=== PATIENT | female | born 1950 | race Caucasian/White ===

== ENCOUNTER → 2016-04-25 | Outpatient (CLI) | payer MEDICARE, OTHER ==
--- OUTSIDE RECORDS SUMMARY | 2016-04-25 10:11 | XMS REPORT | Continuity of Care Document ---
Author Author [facility] Organization [facility] Address Unknown Phone Unavailable Care Team Providers Care Core Analysis Operator Name Role Phone Devi Vasquez PCP [phone] Source Comments Some departments are not documenting in the electronic medical record. If you do not see the information that you expected, contact Release of Information in the Health Information Management department at [phone] for further assistance in locating additional records.[facility] Active Allergies and Adverse Reactions No Known Allergies Current Medications Prescription Sig. Disp. Refills Start End Date Status Date furosemide (LASIX) 20 mg Take 1 Tab by mouth Active tablet Daily. celecoxib (CELEBREX) 200 Take 1 Cap by mouth Active mg capsule Daily. predniSONE (DELTASONE) 5 Take 1 Tab by mouth Active mg tablet Daily. methotrexate 2.5 mg Take 8 Tabs by mouth Active tablet Every Friday. estradiol (ESTRACE) 2 mg Take 1 Tab by mouth Active tablet Daily. CALCIUM + VITAMIN D PO Take 1 Tab by mouth Twice Active Daily. cyclobenzaprine Take 10 mg by mouth At Active (FLEXERIL) 10 mg tablet Bedtime Daily. MIRAPEX 0.25 mg Tab Take 0.25 mg by mouth At Active Bedtime Daily. VITAMIN B-6 100 mg Tab Take 100 mg by mouth Active Daily. docusate (COLACE) 100 mg Take 1 Cap by mouth Twice 60 0 02/25/19 Active capsule Daily. 09 oxycodone/acetaminophen Take 1-2 Tabs by mouth 60 0 20 Active (PERCOCET) 5/325 mg Every 4-6 Hours as needed 09 tablet for Pain. trimethoprim/sulfamethoxa Take 1 Tab by mouth Twice 28 0 02/25/19 Active zole (BACTRIM DS) 160/800 Daily. 09 mg tablet Active Problems Problem Noted Date Wrist swelling 02/26/2008 Social History Tobacco Use Types Packs/Day Years Used Date Former Smoker Cigarettes 5.0 Comments: quit in --social smoker Alcohol Use Drinks/Week oz/Week Comments No Last Filed Vital Signs Vital Sign Reading Time Taken Blood Pressure 120/73 02/26/2008 7:59 AM HOME CHILD CARE PROVIDER Pulse 72 02/26/2008 7:59 AM HOME CHILD CARE PROVIDER Temperature 37.1 C (98.8 F) 02/26/2008 7:59 AM HOME CHILD CARE PROVIDER Respiratory Rate - - Height 1.575 m (5' 2") 02/24/2008 4:00 PM HOME CHILD CARE PROVIDER Weight 65.772 kg (145 lb) 02/24/2008 4:00 PM HOME CHILD CARE PROVIDER Body Mass Index 26.51 02/24/2008 4:00 PM HOME CHILD CARE PROVIDER Oxygen Saturation 98% 02/25/2008 11:00 PM HOME CHILD CARE PROVIDER Plan of Care Health Maintenance Due Date Last Done Comments Physical (Comprehensive) 04/13/1955 Exam Pertussis Vaccine 04/13/1959 Tetanus Vaccine 1965 Breast Cancer Screening 1988 Colorectal Cancer 1998 Screening Shingles Vaccine 2008 Osteoporosis Screening 2013 Prevnar/Pneumovax (#1) 2013 Influenza Vaccine 10/12/2015 Results from Last 3 Months Not on file
[2016-04-26 07:46] LABS: HOMOCYSTEINE 11.2 umol/L (<=10.3)
[2016-04-26 13:37] LABS: FACTOR 5 (LEIDEN) MUTATION Heterozygous (Negative)
[2016-04-26 13:52] LABS: FACTOR 5 LEIDEN INTERP See Footnote
[2016-04-26 14:38] LABS: LUPUS ANTICOAGULANT PTT 38.6 Seconds (24.4-41.7)
[2016-04-29 08:56] LABS: DRVVT SCREEN 1:1 MIX 1.16 ratio (0.00-1.20)
[2016-04-29 08:58] LABS: FACTOR II 20210 MUTATIONC Negative
[2016-04-30 07:59] LABS: INHIBITOR SCREEN PT Equivocal; PROTIME 1:1 MIX ROOM TEMP 15.3 Seconds (10.5-15.7); PT REF RML 26.3 H SEC (10.5-15.7)
[2016-04-30 08:00] LABS: INR REF RML 2.4 H (0.7-1.3); PTT LUPUS 35.7 SEC (20.6-39.2)
[2016-04-30 08:01] LABS: PROTIME 1:1 MIX INCUBATED 17.2 Seconds (10.5-15.7)
[2016-05-01 07:44] LABS: FACTOR 8 (VIII) ASSAY C 225 % (60-150)
[2016-05-03 16:21] LABS: HEXAGONAL PHOSPHOLIPID Negative (Negative)
[2016-05-03 16:22] LABS: CLIN PATHOLOGY REPORT FOOTNOTE
== END ==
LOC: LAB 10:06
PROVIDERS: ATTEND Internal Medicine Cardiovascular Disease
DX: R07.9 Chest pain, unspecified (principal); G89.4 Chronic pain syndrome; I51.9 Heart disease, unspecified; I34.0 Nonrheumatic mitral (valve) insufficiency; I73.9 Peripheral vascular disease, unspecified
CPT/HCPCS: 36415; 81240; 81241; 83090; 85240; 85307; 85597; 85610; 85613; 85705; 85730; 86146; 86147

== ENCOUNTER 2017-12-16 09:00 | Inpatient (IN) | payer MEDICARE, OTHER ==
[~2017-12-16] VITALS: Ht 157.5 cm; Wt 81.2 kg
[2017-12-16] MEDS ORDERED: GABA-488 PO (10:04)
[2017-12-16] MEDS ORDERED: TIZA2TAB3 PO (10:04)
[2017-12-16] MEDS ORDERED: PRED5TAB PO (10:04)
[2017-12-16] MEDS ORDERED: OXYB5TAB9 PO (10:04)
[2017-12-16] MEDS ORDERED: MINO100C2 PO (10:04)
[2017-12-16] MEDS ORDERED: HYDR-3812 PO (10:04)
[2017-12-16] MEDS ORDERED: MAGN400O7 PO (10:08)
[2017-12-16] MEDS ORDERED: WARF7.5T49 PO (10:08)
[2017-12-16] MEDS ORDERED: POTA-51 PO (10:08)
[2017-12-16] MEDS ORDERED: BUME0.5T3 PO (10:08)
[2017-12-16] MEDS ORDERED: CALC-870 PO (10:08)
[2017-12-16] MEDS ORDERED: PRAM0.257 PO (10:08)
[2017-12-16] MEDS ORDERED: MAGN500C15 PO (10:11)
[2017-12-16] MEDS ORDERED: FLU QUADRIvalent (5+ YOA) 2018-2019 (AFLURIA) 0.5 ML IM ONE (10:30)
--- NOTE | 2017-12-16 10:42 | Consultation-Hospitalist ---
DARON MARIN DO 12/16/17 1042: HPI History of Present Illness: HPI/Chief Complaint CC: Recovery in IRF after complicated left knee replacement HPI: This is a 67yoWF clinic patient of Dr Vasquez who presented to the IRF following DC from [place] after undergoing a hardware removal and placement of an antibiotic spacer in 2017 to recent replacement of the hardware. Patient has had a DVT and is maintained on anticoagulation. She wears O2 through her CPAP at night long-term. I reviewed her home meds and previous records. Source: patient Exam Limitations: no limitations Date Seen 12/16/17 Attending Physician Osmani Lanza MD, Lisa A MD Referring Physician Date of Admission Dec 16, 2017 at 09:00 Home Medications & Allergies Home Medications Reviewed patient Home Medication Reconciliation performed by pharmacy medication reconciliations thin film technician and/or nursing. Patients Allergies have been reviewed. 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) Recreational Drug Use: No Smoking Status: Former Smoker Recent Foreign Travel: No Contact w/other who traveled: No Recent Infectious Disease Expo: No Immunizations Up To Date Date of Pneumonia Vaccine: Dec 16, 2016 Past Medical History Surgeries: Joint Replacement, Orthopedic Respiratory: Sleep Apnea Currently Using CPAP: Yes Currently Using BIPAP: No Cardiac: Deep Vein Thrombosis Reproductive: No Gastrointestinal: 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) Musculoskeletal: Arthritis, Rheumatoid Arthritis, Chronic Back Pain History of Blood Disorders: Yes Family History Hypertension Review of Systems Constitutional: see HPI, weakness EENTM: no symptoms reported Respiratory: no symptoms reported Cardiovascular: no symptoms reported Gastrointestinal: no symptoms reported Genitourinary: no symptoms reported Musculoskeletal: joint pain Skin: no symptoms reported Psychiatric/Neurological: No Symptoms Reported All Other Systems Reviewed Negative Unless Noted: Yes Physical Exam Physical Exam Vital Signs Vital Signs - First Documented 12/16/17 12/16/17 11:13 12:33 Temp 97.9 Pulse 76 Resp 18 B/P (MAP) 166/87 (113) Pulse Ox 95 O2 Delivery Room Air Capillary Refill : Height, Weight, BMI Height: '" Weight: lbs. oz. kg; BMI Method: General Appearance: No Apparent Distress, WD/WN, Chronically ill Eyes: Bilateral Eye Normal Inspection, Bilateral Eye PERRL HEENT: PERRL/EOMI, Normal ENT Inspection, Pharynx Normal Neck: Full Range of Motion, Normal Inspection, Non Tender, Supple, Carotid Bruit Respiratory: Chest Non Tender, Lungs Clear, Normal Breath Sounds, No Accessory Muscle Use, No Respiratory Distress Cardiovascular: Regular Rate, Rhythm, No Edema, No Gallop, No JVD, No Murmur, Normal Peripheral Pulses Gastrointestinal: Normal Bowel Sounds, No Organomegaly, No Pulsatile Mass, Non Tender, Soft Back: Normal Inspection, No CVA Tenderness, No Vertebral Tenderness Extremity: Normal Capillary Refill, Normal Inspection, Normal Range of Motion, Non Tender, No Calf Tenderness, No Pedal Edema Neurologic/Psychiatric: Alert, Oriented x3, No Motor/Sensory Deficits, Normal Mood/Affect Skin: Normal Color, Warm/Dry Lymphatic: No Adenopathy Results Results/Procedures Labs Patient resulted labs reviewed. 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 Qualifiers: Encounter type: sequela Qualified Codes: T84.7XXS - Infection and inflammatory reaction due to other internal orthopedic prosthetic devices, implants and grafts, sequela (3) DVT (deep venous thrombosis) Status: Chronic Qualifiers: DVT location: lower extremity Affected thrombotic vein of extremity: unspecified vein of extremity Chronicity: chronic Laterality: left Qualified Codes: I82.502 - Chronic embolism and thrombosis of unspecified deep veins of left lower extremity (4) Anticoagulant long-term use Status: Chronic (5) Edema Status: Chronic (6) Nocturnal hypoxia Status: Chronic (7) VINCE on CPAP Status: Chronic Clinical Quality Measures DVT/VTE Risk/Contraindication: Risk Factor Score Per Nursin RFS Level Per Nursing on Admit: 4+=Very High PIPE [employer] MED STUDENT 12/16/17 1134: HPI History of Present Illness: HPI/Chief Complaint CC: Knee replacement HPI: This is a 67 year old female who is transferring to [facility] for inpatient rehabilitation. She states that she originally had a left knee replacement in 2016. The knee became infected and was removed in August of this year. An antibiotic spacer was inserted until October of this year when it was removed and replaced with the artificial knee. She then began a rehabilitation program at a rehabilitation facility in [place]. She states that she had to transfer to this facility due to insurance refusal to pay for the previous rehabilitation. Source: patient Exam Limitations: no limitations PCP PCP: Devi Vasquez MD Home Medications & Allergies Home Medications Active Scripts Medications Dose Route/Sig Max Daily Dose Days Date Category Magnesium (Magnesium Oxide) 500 Mg Capsule 500 Mg PO DAILY 12/16/17 Reported Milk of Magnesia (Magnesium Hydroxide) 400 Mg/5 Ml Oral.susp 30 Ml PO DAILY PRN 12/16/17 Reported Tums X-Str (Calcium Carbonate) 300 Mg Tab.chew 300 Mg PO TID PRN 12/16/17 Reported Potassium Chloride 20 Meq Tablet.er 20 Meq PO DAILY 12/16/17 Reported Bumetanide 0.5 Mg Tablet 0.5 Mg PO 0700 12/16/17 Reported Warfarin Sodium 7.5 Mg Tablet 7.5 Mg PO 1800 12/16/17 Reported Pramipexole Dihydrochloride (Pramipexole Di-HCl) 0.25 Mg Tablet 0.25 Mg PO BID 12/16/17 Reported Tizanidine HCl 2 Mg Tablet 2 Mg PO Q8H PRN 12/16/17 Reported Minocycline HCl 100 Mg Capsule 100 Mg PO BID 12/16/17 Reported Gabapentin 300 Mg Capsule 300 Mg PO QID 12/16/17 Reported Oxybutynin Chloride 5 Mg Tablet 5 Mg PO TID 12/16/17 Reported Prednisone 5 Mg Tablet 5 Mg PO DAILY 12/16/17 Reported Hydrocodone-Acetamin 5-325 mg (Hydrocodone/Acetaminophen) 1 Each Tablet 1 Tab PO Q4H PRN 12/16/17 Reported Allergies Allergies Coded Allergies baclofen (Verified Allergy, Severe, 12/16/17) vancomycin (Verified Allergy, Severe, 12/16/17) Penicillins (Verified Allergy, Unknown, 12/16/17) cefuroxime (Verified Allergy, Unknown, 12/16/17) cyclobenzaprine (Verified Allergy, Unknown, 12/16/17) levofloxacin (Verified Allergy, Unknown, 12/16/17) metronidazole (Verified Allergy, Unknown, 12/16/17) Past Uyrbduv-Kflzee-Ezlbxm Hx Patient Social History Marrital Status: Number of Children: 2 Employed/Student: retired Alcohol Use: Denies Use Recreational Drug Use: No Past Medical History Surgeries: Joint Replacement, Orthopedic Musculoskeletal: Rheumatoid Arthritis History of Blood Disorders: Yes Review of Systems Constitutional: no symptoms reported EENTM: no symptoms reported Respiratory: no symptoms reported Cardiovascular: no symptoms reported Gastrointestinal: no symptoms reported Genitourinary: no symptoms reported Musculoskeletal: joint pain Skin: no symptoms reported Psychiatric/Neurological: No Symptoms Reported Physical Exam Physical Exam General Appearance: No Apparent Distress, WD/WN Respiratory: Chest Non Tender, Lungs Clear, Normal Breath Sounds, No Accessory Muscle Use, No Respiratory Distress Cardiovascular: Regular Rate, Rhythm, No Edema, No Gallop, No JVD, No Murmur Neurologic/Psychiatric: Alert, Oriented x3, No Motor/Sensory Deficits, Normal Mood/Affect Skin: Normal Color, Warm/Dry Assessment/Plan Assessment and Plan Assess & Plan/Chief Complaint Assessment: 1) Debility due to recent knee replacement Plan: 1) Inpatient rehabilitation DARON MARIN DO Dec 16, 2017 10:42 PIPE [employer] MED STUDENT Dec 16, 2017 11:34
--- NOTE | 2017-12-16 10:50 | PM&R Post Admission Assessment ---
Post Admission Physician Asses Date seen by provider: Dec 16, 2017 Time seen by provider: 10:45 The preadmission screen agrees with the post admission assessment that the patient is a good candidate for inpatient rehabilitation. The patient will have a comprehensive program of inpatient rehabilitation with a goal of maximizing level of functional independence prior to discharge home with spouse. The patient will have PT/OT ninety minutes per day, each discipline, five days a week for 10 to 14 days for gait, strengthening, conditioning, balance, ADLs, any patient/family/caregiver training as necessary. Speech therapy to do cognitive assessment and treat as indicated. Rehabilitation nursing to assist with bowel, bladder, skin, wound care, medication administration, pain management. Hha to assist with discharge planning, community reentry. SCD's and coumadin for DVT prophylaxis. She appears to be well motivated to participate in three hours of therapy a day. She should be able to tolerate three hours of therapy a day from a medical and surgical standpoint. She should benefit from the three hours of therapy a day. She has a reasonable discharge plan, reasonable discharge rehabilitation goals and a supportive family. She has various comorbidities that need to be closely monitored with medications and treatments adjusted on a daily basis as needed. These include: Chronic anticoagulation DJD of the spine Factor leiden Valvular HT D OA of the knees [facility] code 08.61 Etiologic DX OA left knee Barriers to discharge for this patient who had been independent prior to this are for her to be modified independent to supervision for ADLs and mobility skills prior to discharge home with spouse, so as to lessen the burden of the caregivers. Risks for this patient include: 1. Fall 2. Fracture 3. DVT 4. Pulmonary embolism 5. Wound infection 6. Skin breakdown 7. Contractures 8. Poorly controlled pain 9. Urinary retention 10. UTI 11. Respiratory infection 12. Aspiration 13.Supra or subtherapeutic INR Estimated Length of Stay: 10 to 14 days Prognosis: Rehab prognosis appears good for goal of discharge home with spouse modified independent to supervision for ADLs and mobility skills. Date Identified: Dec 16, 2017 Time Identified: 10:45 Action Plan to Resolve CSMI: Home meds reconciled Discussed with admitting RN General: Alert, Oriented X3, Cooperative, No Acute Distress HEENT: Atraumatic, PERRLA, EOMI, Mucous Memb Moist/[place] Neck: Supple, No JVD Lungs: Clear to Auscultation Heart: Regular Rate Abdomen: Normal Bowel Sounds, Soft, No Tenderness Extremities: Other (Left calf tight but non tender Incision healing well Limited AROM left shoulder due to OA) Neuro: Sensation Intact, Other (Generalized weakaness more so left shoulder and left knee) Psych/Mental Status: Mental Status NL, Other (cognition intact) MYLA BIRCH MD Dec 16, 2017 10:50
[2017-12-16] MEDS ORDERED: CALCIUM CARBONATE 500 MG (TUMS) TAB.CHEW PO PRN (11:00)
--- NOTE | 2017-12-16 11:00 | Physical Therapy Evaluation ---
PT Evaluation-General Medical Diagnosis Admission Date Dec 16, 2017 at 09:00 Medical Diagnosis: left TKA revision Onset Date: Nov 03, 2017 Therapy Diagnosis Therapy Diagnosis: impaired mobility, strength, endurance, balance, ROM Weight Bear Status Right Lower Extremity: Right Full Weight Bearing Left Lower Extremity: Left Weight Bearing/Tolerated Referral Physician: Pool Reason for Referral: Evaluation/Treatment Medical History Additional Medical History PAST MEDICAL HISTORY: Factor V Leiden, DVT, pulmonary embolism, rheumatoid arthritis, osteoarthritis, spinal arthritis. She has had lumbar spine surgery and cervical spine surgery in [place]. She has OA of the left shoulder on a nondominant side affecting her flexibility and abduction and flexion of the left shoulder as well. 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 PAST SURGICAL HISTORY: Lumbar spine, cervical spine, IVC filter placement, revision of left total knee replacement, hysterectomy, foot surgery, left TSA and a CTR Reviewed History: Yes Social History Home: Single Level Current Living Status: Spouse Entry Into Home: Level Entry Prior/Core FIM Prior Level of Function Functional [place] Measure 0=Not Assessed/NA 4=Minimal Assistance 1=Total Assistance 5=Supervision or Setup 2=Maximal Assistance 6=Modified [place] 3=Moderate Assistance 7=Complete IndependenceIRFPAI Quality Coding Scale 6 Independent with activity with or without an assistive device 5 Patient requires set up or clean up by helper. Patient completes activity by themselves 4 Supervision or touching assist (CGA). [place] provide cues , steadying assist 3 The helper provides less than half the effort to complete the activity 2 The helper provides more than half the effort to complete the activity 1 Dependent. The helper does all the effort to complete an activity 7 Patient refused to complete or attempt activity 9 The patient did not perform the activity before the current illness or injury 88 Not attempted due to Medical conditions or safety concerns PT Evaluation-Current Subjective Patient in recliner pre tx, agrees to PT, has no pain at rest. Pt/Family Goals "to be independent at home Objective Patient Orientation: Person, Place, Situation ROM/Strength ROM Lower Extremities left knee extension +15 degrees, flexion 85 degrees Strenght Lower Extremities RLE 4/5 gross, LLE (hip flexion 3-/5, knee flexion 2/5, knee extension 2/5, dorsiflexion 2/5) Neuromuscular (Tone, Coordination, Reflexes) NT Sensory Vision: Wears Glasses Hearing: Functional Sensation Right Lower Extremit: Impaired Sensation Left Lower Extremity: Impaired Sensation Lower Extremities Patient has bilateral neuropathy and vascular insufficiency Transfers Functional [place] Measure 0=Not Assessed/NA 4=Minimal Assistance 1=Total Assistance 5=Supervision or Setup 2=Maximal Assistance 6=Modified [place] 3=Moderate Assistance 7=Complete IndependenceIRFPAI Quality Coding Scale 6 Independent with activity with or without an assistive device 5 Patient requires set up or clean up by helper. Patient completes activity by themselves 4 Supervision or touching assist (CGA). [place] provide cues , steadying assist 3 The helper provides less than half the effort to complete the activity 2 The helper provides more than half the effort to complete the activity 1 Dependent. The helper does all the effort to complete an activity 7 Patient refused to complete or attempt activity 9 The patient did not perform the activity before the current illness or injury 88 Not attempted due to Medical conditions or safety concerns Transfers (B, C, W/C) (FIM): 3 Scootin Rollin Roll Left to Right (QC): 4 Supine to/from Sit: 4 Sit to/from Stand: 4 bed t/f WC(FIM only if WC use): 4 Sit to Lying (QC): 2 Lying to Sitting/Side of Bed(Q: 3 Sit to Stand (QC): 3 Chair/Tst-ao-Vsuim Xfer(QC): 3 Car Transfer (QC): 3 Patient performs bed mobility with SBA, supine to sit with min assist, sit to supine with mod assist, sit to stand min assist, transfers min assist, car transfer min assist. Cues for safety and positioning. Patient's left knee jorge with weight bearing but she keeps from falling by bracing with her arms. Gait Does the Patient Walk?: Yes Mode of Locomotion: Both Anticipated Mode of Locomotion: Walk Gait (FIM): 1 Walk 10 feet (QC): 4 Distance: 40'x3 Gait Level of Assist: 4 Gait Persons Needed: 1 Gait Assistive Device: FWW Comments/Gait Description Patient can ambulate 40' with min assist using a rolling walker. Patient is unsteady and has left knee buckling with weight bearing but is able to keep from falling by bracing with her arms. Patient has poor endurance. Gait is antalgic, has flexed left knee during ambulation, poor heel strike. Wheelchair Training Does the Pt Use a Wheelchair?: Yes Wheelchair (FIM): 2 Distance: 100'x2 Wheelchair Level of Assist: 5 Wheel 50 ft with 2 turns (QC): 4 Type of Wheelchair: Manual Patient can propel a manual wheelchair 100' with SBA. She propels very slowly and has trouble due to weakness and poor endurance. Stairs If not tested on admit;explain Patient is not safe to perform stairs at this time due to weakness and left knee buckling. Balance Sitting Static: Normal Sitting Dynamic: Normal Standing Static: Poor Standing Dynamic: Poor Treatment supine TKA exercises left side x15 (AP, QS, HS, SAQ, SLR) Assessment/Needs Patient has impaired mobility, strength, endurance, balance, and ROM post left TKA revision. Patient has a profoundly weak left quadricep. Patient is a high fall risk. Rehab Potential: Guarded PT Short Term Goals Short Term Goals Time Frame: Dec 23, 2017 Transfers (B,C,W/C) (FIM): 4 Gait (FIM): 2 Gait Distance Comment: 60' Gait Level of Assist: 4 Gait Assistive Device: FWW PT Shelter Goals Shelter Goals PT Manager Meeting Goals Time Frame: Jan 06, 2018 Transfers (B,C,W/C) (FIM): 4 Sit to Lying (QC): 3 Lying-Sitting on Side/Bed(QC): 4 Sit to Stand (QC): 4 Rollin Roll Left to Right (QC): 4 Chair/Evq-kd-Qibwi Xfer(QC): 4 Car Transfer (QC): 4 Gait (FIM): 2 Distance: 100' Walk 10 feet (QC): 4 Walk 10ft-Uneven Surface(QC): 4 Walk 50ft with 2 Turns (QC): 4 Gait Level of Assist: 5 Gait Assistive Device: FWW PT Plan Problem List Problem List: Activity Tolerance, Functional Strength, Safety, Balance, Gait, Transfer, Bed Mobility, ROM Treatment/Plan Treatment Plan: Continue Plan of Care Treatment Plan: Bed Mobility, Concurrent Therapy, Education, Functional Activity Ricardo, Functional Strength, Group Therapy, Gait, Safety, Therapeutic Exercise, Transfers Treatment Duration: Jan 06, 2018 Frequency: At least 5 of 7 days/Wk (IRF) Estimated Hrs Per Day: 1.5 hours per day Patient and/or Family Agrees t: Yes Safety Risks/Education Patient Education: Gait Training, Transfer Techniques, Correct Positioning, W/ C Management, Safety Issues Teaching Recipient: Patient Teaching Methods: Demonstration, Discussion Response to Teaching: Reinforcement Needed Discharge Recommendations Plan Patient will perform bed mobility and transfer training, balance and endurance training, functional strengthening, stair training, gait training, and education , to improve functional mobility and independence at home. Therapy D/C Recommendations: Home w/ Family Support Time/GCodes Time In: 1000 Time Out: 1100 Total Billed Treatment Time: 60 Total Billed Treatment 1 visit EVM 30' EX 15' GT 15' YOBANY HU PT Dec 16, 2017 11:00
[2017-12-16] MEDS ORDERED: PATIENT MAY USE OWN MED,SINGLE MED PO SCH (11:30)
[2017-12-16] MEDS: OXYBUTYNIN (DITROPAN) 5 MG TAB PO SCH ×2 (12:20→20:34)
[2017-12-16] MEDS: GABAPENTIN 300 MG (NEURONTIN) CAP PO SCH ×3 (12:20→20:35)
[2017-12-16] MEDS: HYDROcodone/APAP 5 MG/325 MG (LORTAB) TAB PO PRN ×2 (12:21→16:28)
[2017-12-16 12:33] VITALS: BP 166/87
--- NOTE | 2017-12-16 12:56 | Occupational Therapy Eval ---
OT Evaluation-General/PLF Medical Diagnosis Admission Date Dec 16, 2017 at 09:00 Medical Diagnosis: Left TKA revision Onset Date: Nov 03, 2017 Therapy Diagnosis Therapy Diagnosis: decreased self care skills Precautions Precautions/Isolations: Fall Prevention, Standard Precautions Referral Physician: Pool Medical History Pertinent Medical History: Rheumatoid Arthritis Additional Medical History Neck surgery, lumbar surgery, right CHRISTOPHER, left TKA. Current History Pt states she had her original left TKA in 2016. In August 2017 hardware was removed and antibiotic spacer was placed. Revision was completed on October. Pt states she has been in SNF and was discharged 12/12/17 as she had run out of skilled days. Was admitted to ARU for continued therapy Reviewed History: Yes Social History Home: Single Level Current Living Status: Spouse Entry Into Home: Level Entry Steps Inside Home: 3 ADL-Prior Level of Function Functional [place] Measure 0=Not Assessed/NA 4=Minimal Assistance 1=Total Assistance 5=Supervision or Setup 2=Maximal Assistance 6=Modified Bay 3=Moderate Assistance 7=Complete [place] ADL PLOF Comments Pt has been in SNF following placement of antibiotic spacer and subsequent left knee revision. Was receiving some assistance with ADLs and transfers. Pt states she does not ever wear socks, so does not need to practice this skill. Has been using FWW and w/c for mobility. 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 Pt reports 5/10 pain in left knee. Mental Status/Objective Patient Orientation: Person, Place, Time, Situation Current Glasses/Contacts: Yes Hearing Aids: No Dentures/Partials: No Hand Dominance: Right Upper Extremity ROM Impaired left shoulder ROM secondary to arthritis Right UE grossly WFL Upper Extremity Sensation Intact per pt report ADL-Treatment ADL-Current Pt sit to stand from w/c with max assist, requires three attempts to achieve standing. Gait to restroom with FWW. Pt's left knee jorge at times. Has increased weight bearing through bilateral UE. Transfer to toilet with min assist and cues for safety. Pt able to pull pants down, but requires assist with toileting hygiene and to pull pants up. Pt states she uses toileting aid and spouse will bring it here. Sit to stand from toilet with moderate assistance using grab bars for safety. Stood at sink to wash hands with minimal assistance for balance. Returned to chair with FWW. Pt has slow pace and requires increased time for mobility and ADLs. Pt sitting in chair with needs met after session. Functional Bay Measure 0=Not Assessed/NA 4=Minimal Assistance 1=Total Assistance 5=Supervision or Setup 2=Maximal Assistance 6=Modified [place] 3=Moderate Assistance 7=Complete IndependenceIRFPAI Quality Coding Scale 6 Independent with activity with or without an assistive device 5 Patient requires set up or clean up by helper. Patient completes activity by themselves 4 Supervision or touching assist (CGA). [place] provide cues , steadying assist 3 The helper provides less than half the effort to complete the activity 2 The helper provides more than half the effort to complete the activity 1 Dependent. The helper does all the effort to complete an activity 7 Patient refused to complete or attempt activity 9 The patient did not perform the activity before the current illness or injury 88 Not attempted due to Medical conditions or safety concerns Toileting (FIM): 2 Toileting Hygiene (QC): 2 Toilet/Commode Transfer (FIM): 3 Toilet Transfer (QC): 3 Education OT Patient Education: Rehab process Teaching Recipient: Patient Teaching Methods: Discussion Response to Teaching: Verbalize Understanding OT Short Term Goals Short Term Goals Time Frame: Dec 23, 2017 Grooming(FIM): 5 Lower Body Dressing(FIM): 4 Toilet/Commode Transfer(FIM): 4 Additional Short Term Goals: 1-Demonstrate ADL Tasks, 2-Verbalize Understanding , 3-ImproveStrength/Ricardo 1=Demonstrate adherence to instructed precautions during ADL tasks. 2=Patient will verbalize/demonstrate understanding of assistive devices/ modifications for ADL. 3=Patient will improve strength/tolerance for activity to enable patient to perform ADL's. OT Recovery Engineer Goals [facility] Goals Time Frame: Jan 06, 2018 Eating (FIM): 6 Eating (QC): 6 Groomin Oral Hygiene (QC): 6 Bathing(FIM): 4 Shower/Bathe Self (QC): 4 Upper Body Dressing(FIM): 5 Upper Body Dressing (QC): 5 Lower Body Dressing(FIM): 4 (CGA) Lower Body Dressing (QC): 4 On/Off Footwear (QC): 5 Toileting(FIM): 5 Toileting Hygiene (QC): 5 Toilet/Commode Transfer(FIM): 5 Toilet/Commode Transfer (QC): 5 Shower Transfer(FIM): 4 Additional Goals: 1-Demonstrate ADL Tasks, 2-Verbalize Understanding, 3- ImproveStrength/Ricardo 1=Demonstrate adherence to instructed precautions during ADL tasks. 2=Patient will verbalize/demonstrate understanding of assistive devices/ modifications for ADL. 3=Patient will improve strength/tolerance for activity to enable patient to perform ADL's. Goals established to promote increased independence and allow safe discharge plan. OT Education/Plan Problem List/Assessment Assessment: Decreased Activ Tolerance, Decreased UE Strength, Dependent Transfers, Impaired Funct Balance, Impaired I ADL's, Impaired Self-Care Skills Pt to benefit from skilled OT intervention for ADL training, transfers, strengthening, and home safety education to increase independence and allow safe discharge home. Discharge Recommendations Plan/Recommendations: Continue POC Treatment Plan/Plan of Care Treatment,Training & Education: Yes Patient would benefit from OT for education, treatment and training to promote independence in ADL's, mobility, safety and/or upper extremity function for ADL' s. Plan of Care: ADL Retraining, Functional Mobility, Group Exercise/Act as Ind, UE Funct Exercise/Act Treatment Duration: Jan 06, 2018 Frequency: At least 5 of 7 days/Wk (IRF) Estimated Hrs Per Day: 1.5 hours per day Agreement: Yes Rehab Potential: Fair Time/GCodes Start Time: 11:00 Stop Time: 12:00 Total Time Billed (hr/min): 60 Billed Treatment Time 1 visit, EVM(30minutes), ADLx2(30minutes) TEGAN HOOD OT Dec 16, 2017 12:56
--- NOTE | 2017-12-16 13:15 | HISTORY AND PHYSICAL ---
DATE OF SERVICE: 12/16/2017 CHIEF COMPLAINT: Difficulty with walking. HISTORY OF PRESENT ILLNESS: The patient is a 67-year-old female who had been modified independent until recently with a walker, who presented to [facility] for left total knee replacement. However, she was found to have pseudomonas in her knee. Therefore, on 08/25/2017, she underwent knee explantation with antibiotic spacer placement. On 08/28/2017, she was admitted to [facility] for 8 weeks postop care. She was nonweightbearing at that time. On 11/03/2017, she presented to [place] for explant of left knee antibiotic spacer and revision of left total knee replacement. On 11/11/2017, she was readmitted to [facility] for continued PT, OT. On 12/11/2017, she had progressed well, but still required assistance and she had been living with her prior to this in [place], [place]. Her PCP is Dr. Vasquez. She was referred to inpatient rehabilitation unit for ongoing care and therapy to get her to the next level, so that she can be more independent, less of a burden to her spouse. Currently, she requires assistance for ADLs and mobility skills. She has factor V Leiden and is chronically anticoagulated with Coumadin. She has a history of DVT and pulmonary embolism. She has seen Dr. Aldana, cardiology, in the past regarding this and diastolic dysfunction and pulmonary hypertension and an intraatrial aneurysm.Currently she is Min assist for transfers and gait.She is Independent for feeding and mod Independent for grooming at the w/c level.SBA for Upper body dressing and mod assist for lower body dressing and toileting PAST MEDICAL HISTORY: Factor V Leiden, DVT, pulmonary embolism, rheumatoid arthritis, osteoarthritis, spinal arthritis. She has had lumbar spine surgery and cervical spine surgery in [place]. She has OA of the left shoulder on a nondominant side affecting her flexibility and abduction and flexion of the left shoulder as well. 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 PAST SURGICAL HISTORY: Lumbar spine, cervical spine, IVC filter placement, revision of left total knee replacement, hysterectomy, foot surgery, left TSA and a CTR. ALLERGIES: Multiple intolerances and allergies. PENICILLIN, BACLOFEN, FLEXERIL, LEVAQUIN, FLAGYL AND VANCOMYCIN. FAMILY HISTORY: Noncontributory. SOCIAL HISTORY: Lives in a one-story home in [place], [place] with her spouse. REVIEW OF SYSTEMS: A 10-point review of systems significant for arthritic pain involving the knee. She has also had prior right hip surgery and pain in her cervical and lumbar spine and left shoulder. She has some swelling in the left calf as well. MEDICATIONS: Gabapentin 300 mg p.o. q.i.d., milk of magnesia 30 mL p.o. daily p.r.n. constipation, prednisone 5 mg p.o. daily, Coumadin 7.5 mg p.o. daily evening, bumetanide 0.5 mg p.o. daily, calcium carbonate 500 mg p.o. t.i.d. p.r.n., hydrocodone APAP 5/325 one tablet p.o. q.4 hours p.r.n. pain, magnesium oxide 400 mg p.o. daily, Minocin 100 mg p.o. b.i.d., Ditropan 5 mg p.o. t.i.d., KCl 20 mEq p.o. daily, pramipexole 0.25 mg p.o. b.i.d. for restless leg syndrome, Zanaflex 2 mg p.o. q.8 hours p.r.n. spasm.Minocycline PHYSICAL EXAMINATION: GENERAL: Significant for a pleasant female appearing her stated age, alert and oriented, in no acute distress. She is sitting on mat in gym. VITAL SIGNS: Within normal limits. She was afebrile. HEENT: Vision, speech, hearing grossly intact. No oral lesion is noted. NECK: Supple without mass. HEART: Regular rhythm. CHEST: Clear. ABDOMEN: Soft, nontender, bowel sounds present. EXTREMITIES: She has some discoloration and hardening of the left calf, but is nontender. Her incision line over the left knee has healed well. No drainage noted. MUSCULOSKELETAL: She has functional active range of motion on the right upper limb and lower limb. Left upper limb limited in active and passive range of motion, shoulder flexion and abduction. She has functional wage conciliator strength bilaterally. She has limited extension, flexion of her left knee.Left knee extension +15 degrees Flex 85 degrees NEUROLOGIC: Sensation is decreased to touch in the feet. Cognition is grossly intact. Strength, she has generalized weakness in the upper limbs more so in the left shoulder.She has functional wage conciliator strength. Strength RLE 4/5 Left hip flex 3-/5 Knee flex 2/5 knee ext 2/5 dorsiflexion 2/5 IMPRESSION: 1. Ambulatory dysfunction secondary to revision left total knee replacement for osteoarthritis s/p explantation antibiotic beads for Infection now on Minocycline. 2. Osteoarthritis of the spine status post lumbar spine surgery, cervical spine surgery. 3. OA of the left shoulder. 4. Restless leg syndrome. 5. Overactive bladder. 6. Diastolic congestive heart failure, on meds. 7. Anemia. 8. Factor V Leiden syndrome, chronically anticoagulated. 9. Valvular heart disease. 10. Nocturnal resp insuff on 02 at PLAN: The patient is admitted for a comprehensive program of inpatient rehabilitation with goal of maximizing level of functional independence prior to discharge home with spouse. The patient will have PT, OT 90 minutes per day each discipline, 5 days a week for 10 to 14 days with the above goals in mind. Please see post-admission physician evaluation, which is a separate document for details of plan of care. Speech therapy to do cognitive assessment and treat as indicated. Rehabilitation nursing to assist with bowel, bladder, skin, wound care, medication administration, pain management and social worker health services to assist with discharge planning, community reentry. Check a PT INR in a.m. Continue home meds. Consult Dr. Santana for medical management in lieu of Dr. Vasquez.Continue with home 02 regimen ESTIMATED LENGTH OF STAY: 10 to 14 days. PROGNOSIS: Rehab prognosis appears good for goal of discharging home with spouse, modified independent to supervision for ADLs and mobility skills. DIET: Regular. CODE STATUS: Full code. Job ID: [id number] DocumentID: [id number] Dictated Date: 12/16/2017 11:08:24 Launderette Attendant Date: 12/16/2017 12:12:03 Dictated By: MYLA BIRCH MD [facility]
--- NOTE | 2017-12-16 14:40 | ST Cognitive Linguistic Eval ---
Speech Evaluation-General Medical Diagnosis left TKA revision Onset Date: Nov 03, 2017 Therapy Diagnosis Therapy Diagnosis: Cognition Precautions Precautions/Isolations: Fall Prevention, Standard Precautions Referral Referring Physician: Dr. Lanza Reason for Referral: Evaluation/Treatment Medical History Pertinent Medical History: Rheumatoid Arthritis Reviewed History: Yes Social History Current Living Status: Spouse Speech PLF-Current Status Prior Level of Function pt was independent Subjective Pt in chair. Pleasant and cooperative. Pain Numeric Pain Scale: 0-No Pain Language Eval: Auditory Comprehends Simple Yes/No Ques: Functional Follows 1-Step Commands: Functional Follows Complex Directions: Functional Follows General Conversations: Functional Language Eval: Verbal Language Completes Spontaneous Greeting: Functional Produces Auto, Serial Info: Functional Word Finding: Functional Requests Basic Needs: Functional States Basic Personal Info: Functional Expresses Complex Ideas: Functional Language Evaluation: Reading NT Cognitive Patient Orientation Pt oriented x 3. Objective Cognitive Domain Attention: WNL Memory: WNL Problem Solving: Functional Objective Results [facility] Cognitive/Communication Assessment was administered to determine cognitive-linguistic functioning. Results are as follows: Memory - 3 word recall was 3/3 correct for immediate, delayed and remote delay. Sequencing/organization - pt was 4/4 correct Problem Solving - Simple was 4/4 correct; Abstract/complex was 2/2 correct and Comparisons was 4/5 correct. Speech/Language - WNL Oral Motor/Speech Production WNL Impression Functional cognitive-linguistic skills. No skilled ST indicated at this time. Communication/Social Cognition Comprehension: 7 Expression: 7 Social Interaction: 7 Problem Solvin Memory: 7 Speech Patient Assess Expression of Ideas/Wants: Expression (4) Understanding Verbal Content: Understands (4) Brief Interview-Mental Status: Yes Repetition of Three Words: Three (3) Temporal Orientation: Year: Correct (3) Temporal Orientation: Month: Accurate within 5 days(2) Temporal Orientation: Day: Correct (1) Recall : Wear to say "Sock": Yes, no cue required (2) Recall : Color: Yes, no cue required (2) Recall : Bed: Yes, no cue required (2) Speech Short Term Goals Short Term Goals Short Term Goals no goals established as skilled ST not indicated at this time. Speech Nursing Home Goals Certified Financial Planner Goals no goals established as skilled ST not indicated at this time. Speech-Plan Patient/Family Goals Patient/Family Goals: to return home Treatment Plan Speech Therapy Treatment Plan: Discontinue ST Pt does not require skilled ST. Frequency: Modified Program (IRF) (0) Estimated Hrs Per Day: Other (0) Rehab Potential: Good Pt/Family Agrees to Plan: Yes Safety Risks/Education Teaching Recipient: Patient Teaching Methods: Discussion Response to Teaching: Verbalize Understanding Time Speech Therapy Time In: 09:25 Speech Therapy Time Out: 09:40 Total Billed Time: 15 Billed Treatment Time 1, SPSNDCOMP NILAM Cifuentes Dec 16, 2017 14:40
--- NOTE | 2017-12-16 14:40 | Physical Therapy Daily Note ---
PT Daily Note-Current Subjective Patient in wheelchair pre tx, agrees to PT, has no complaints of pain. Appearance Patient in recliner post tx with nurse call, phone, tray, all needs met. Mental Status Patient Orientation: Normal For Age Transfers Functional [place] Measure 0=Not Assessed/NA 4=Minimal Assistance 1=Total Assistance 5=Supervision or Setup 2=Maximal Assistance 6=Modified [place] 3=Moderate Assistance 7=Complete IndependenceIRFPAI Quality Coding Scale 6 Independent with activity with or without an assistive device 5 Patient requires set up or clean up by helper. Patient completes activity by themselves 4 Supervision or touching assist (CGA). [place] provide cues , steadying assist 3 The helper provides less than half the effort to complete the activity 2 The helper provides more than half the effort to complete the activity 1 Dependent. The helper does all the effort to complete an activity 7 Patient refused to complete or attempt activity 9 The patient did not perform the activity before the current illness or injury 88 Not attempted due to Medical conditions or safety concerns Transfers (B, C, W/C) (FIM): 4 Sit to/from Stand: 4 Bed to/from Chair: 4 Min assist for sit to stand, has more difficulty standing from the wheelchair. Patient has a lot of difficulty stepping backward when turning to sit. Weight Bearing Right Lower Extremity: Right Full Weight Bearing Left Lower Extremity: Left Weight Bearing/Tolerated Gait Training Gait (FIM): 1 Distance: 40'x2 Gait Level of Assist: 4 Gait Persons Needed: 1 Gait Assistive Device: FWW Slow, antalgic ambulation, flexed left knee, poor heel strike, left knee buckling. Wheelchair Training Does the Pt Use a Wheelchair?: Yes Wheelchair (FIM): 2 Distance: 100'x2 Wheelchair Level of Assist: 5 Type of Wheelchair: Manual very slow Treatments transfers, ambulation, wheelchair mobility Assessment Current Status: Fair Progress improving ambulation PT Short Term Goals Short Term Goals Time Frame: Dec 23, 2017 Transfers (B,C,W/C) (FIM): 4 Gait (FIM): 2 Gait Distance Comment: 60' Gait Level of Assist: 4 Gait Assistive Device: FWW Wheelchair Distance: 100'x2 PT [facility] Goals Die Maker Electronic Goals PT Die Maker Electronic Goals Time Frame: Jan 06, 2018 Transfers (B,C,W/C) (FIM): 4 Sit to Lying (QC): 3 Lying-Sitting on Side/Bed(QC): 4 Sit to Stand (QC): 4 Rollin Roll Left to Right (QC): 4 Chair/[id number] Xfer(QC): 4 Car Transfer (QC): 4 Gait (FIM): 2 Distance: 100' Walk 10 feet (QC): 4 Walk 10ft-Uneven Surface(QC): 4 Walk 50ft with 2 Turns (QC): 4 Gait Level of Assist: 5 Gait Assistive Device: FWW PT Plan Problem List Problem List: Activity Tolerance, Functional Strength, Safety, Balance, Gait, Transfer, Bed Mobility, ROM Treatment/Plan Treatment Plan: Continue Plan of Care Treatment Plan: Bed Mobility, Concurrent Therapy, Education, Functional Activity Ricardo, Functional Strength, Group Therapy, Gait, Safety, Therapeutic Exercise, Transfers Treatment Duration: Jan 06, 2018 Frequency: At least 5 of 7 days/Wk (IRF) Estimated Hrs Per Day: 1.5 hours per day Patient and/or Family Agrees t: Yes Safety Risks/Education Patient Education: Gait Training, Transfer Techniques, Correct Positioning, W/ C Management, Safety Issues Teaching Recipient: Patient Teaching Methods: Demonstration, Discussion Response to Teaching: Reinforcement Needed Time/GCodes Time In: 1405 Time Out: 1435 Total Billed Treatment Time: 30 Total Billed Treatment 1 visit [facility] 15' GT 15' YOBANY HU PT Dec 16, 2017 14:40
--- NOTE | 2017-12-16 15:09 | Occupational Ther Daily Note ---
OT Current Status-Daily Note Subjective Pt sitting in chair, agrees to treatment. Mental Status/Objective Functional [place] Measure 0=Not Assessed/NA 4=Minimal Assistance 1=Total Assistance 5=Supervision or Setup 2=Maximal Assistance 6=Modified [place] 3=Moderate Assistance 7=Complete [place] ADL-Treatment Sit to stand from recliner with minimal assistance. Gait to restroom with FWW, slow pace. Pt stood at sink to complete grooming tasks. Pt brushed teeth with CGA for balance. Pt has decreased activity tolerance and requires seated rest break. Pt transferred to [facility] over toilet with minimal assistance. Pt able to pull pants down and was able to complete toileting hygiene using toileting aid. Pt needed to change Depends. Doffed with SBA. Pt donned Depends and pants using mobile phlebotomist to start over feet. Pt sit to stand with minimal assistance, but required assist to complete pant hike. Pt able to doff/don shoes with SBA using mobile phlebotomist. Increased time required for ADLs. Transfer to w/c with minimal assistance. Pt sitting in w/c with PT present after session. Functional [place] Measure 0=Not Assessed/NA 4=Minimal Assistance 1=Total Assistance 5=Supervision or Setup 2=Maximal Assistance 6=Modified [place] 3=Moderate Assistance 7=Complete IndependenceIRFPAI Quality Coding Scale 6 Independent with activity with or without an assistive device 5 Patient requires set up or clean up by helper. Patient completes activity by themselves 4 Supervision or touching assist (CGA). [place] provide cues , steadying assist 3 The helper provides less than half the effort to complete the activity 2 The helper provides more than half the effort to complete the activity 1 Dependent. The helper does all the effort to complete an activity 7 Patient refused to complete or attempt activity 9 The patient did not perform the activity before the current illness or injury 88 Not attempted due to Medical conditions or safety concerns Grooming (FIM): 4 Oral Hygiene (QC): 4 Lower Body Dressing (FIM): 3 Lower Body Dressing (QC): 3 On/Off Footwear (QC): 5 Toileting (FIM): 3 Toileting Hygiene (QC): 3 Toilet/Commode Transfer (FIM): 4 Toilet Transfer (QC): 3 OT Short Term Goals Short Term Goals Time Frame: Dec 23, 2017 Grooming(FIM): 5 Lower Body Dressing(FIM): 4 Transfers (B,C,W/C) (FIM): 4 Toilet/Commode Transfer(FIM): 4 Additional Short Term Goals: 1-Demonstrate ADL Tasks, 2-Verbalize Understanding , 3-ImproveStrength/Ricardo 1=Demonstrate adherence to instructed precautions during ADL tasks. 2=Patient will verbalize/demonstrate understanding of assistive devices/ modifications for ADL. 3=Patient will improve strength/tolerance for activity to enable patient to perform ADL's. OT Care Home Goals Care Home Goals Time Frame: Jan 06, 2018 Eating (FIM): 6 Eating (QC): 6 Groomin Oral Hygiene (QC): 6 Bathing(FIM): 4 Shower/Bathe Self (QC): 4 Upper Body Dressing(FIM): 5 Upper Body Dressing (QC): 5 Lower Body Dressing(FIM): 4 (CGA) Lower Body Dressing (QC): 4 On/Off Footwear (QC): 5 Toileting(FIM): 5 Toileting Hygiene (QC): 5 Toilet/Commode Transfer(FIM): 5 Toilet/Commode Transfer (QC): 5 Shower Transfer(FIM): 4 Additional Goals: 1-Demonstrate ADL Tasks, 2-Verbalize Understanding, 3- ImproveStrength/Ricardo 1=Demonstrate adherence to instructed precautions during ADL tasks. 2=Patient will verbalize/demonstrate understanding of assistive devices/ modifications for ADL. 3=Patient will improve strength/tolerance for activity to enable patient to perform ADL's. OT Education/Plan Discharge Recommendations Plan/Recommendations: Continue POC Treatment Plan/Plan of Care Patient would benefit from OT for education, treatment and training to promote independence in ADL's, mobility, safety and/or upper extremity function for ADL' s. Plan of Care: ADL Retraining, Functional Mobility, Group Exercise/Act as Ind, UE Funct Exercise/Act Treatment Duration: Jan 06, 2018 Frequency: At least 5 of 7 days/Wk (IRF) Estimated Hrs Per Day: 1.5 hours per day Agreement: Yes Rehab Potential: Fair Time/GCodes Start Time: 13:30 Stop Time: 14:05 Total Time Billed (hr/min): 35 Billed Treatment Time 1 visit, ADLx2(35minutes) TEGAN HOOD OT Dec 16, 2017 15:09
[2017-12-16 15:30] VITALS: BP 152/93
[2017-12-16] MEDS: warFARin 7.5 MG (COUMADIN) TAB PO SCH (17:16)
[2017-12-16] MEDS: MINOCYCLINE HCL 100 MG PO SCH (20:34)
[2017-12-16] MEDS: PRAMIPEXOLE 0.125 MG (MIRAPEX) TABLET PO SCH (20:35)
[2017-12-17] MEDS: HYDROcodone/APAP 5 MG/325 MG (LORTAB) TAB PO PRN ×3 (01:49→20:33)
[2017-12-17 05:11] VITALS: BP 127/81
[2017-12-17 05:26] LABS: INR 2.3 (0.8-1.4); PROTHROMBIN TIME PATIENT 25.2 SEC (12.2-14.7)
[2017-12-17] MEDS: KCL 20 MEQ TAB (K-DUR) PO SCH (06:32)
[2017-12-17] MEDS: predniSONE 5 MG TAB PO SCH (08:35)
[2017-12-17] MEDS: OXYBUTYNIN (DITROPAN) 5 MG TAB PO SCH ×3 (08:35→20:33)
[2017-12-17] MEDS: MAGNESIUM OXIDE (MAG-OX)400 MG TAB PO SCH (08:35)
[2017-12-17] MEDS: PRAMIPEXOLE 0.125 MG (MIRAPEX) TABLET PO SCH ×2 (08:35→20:32)
[2017-12-17] MEDS: GABAPENTIN 300 MG (NEURONTIN) CAP PO SCH ×4 (08:35→20:33)
[2017-12-17] MEDS: MINOCYCLINE HCL 100 MG PO SCH ×2 (08:36→20:35)
--- NOTE | 2017-12-17 09:01 | PM & R (SOAP) Progress Note ---
Subjective This was a face to face visit with the patient. Date Seen by Provider: Dec 17, 2017 Time Seen by Provider: 07:45 Subjective/Events-last exam Patient was seen in her room this AM Patient Min assist for transfers INR noted.Adjusting well to unit Date Identified: Dec 17, 2017 Time Identified: 07:30 Medication Intervention: INR noted Review of Systems Musculoskeletal: leg pain Objective Physician Exam Last Set of Vital Signs Vital Signs Date Time Temp Pulse Resp B/P (MAP) Pulse Ox O2 Delivery O2 Flow Rate FiO2 12/17/17 05:11 98.4 74 18 127/81 (96) 100 Room Air Capillary Refill : Less Than 3 Seconds I&O Intake and Output 12/17/17 00:00 Intake Total 700 ml Balance 700 ml Intake Oral 700 ml # Voids 3 General: Alert, Oriented X3, Cooperative, No Acute Distress HEENT: Atraumatic, PERRLA, EOMI, Mucous Memb Moist/Graingers Neck: Supple, No JVD Lungs: Clear to Auscultation Heart: Regular Rate Abdomen: Normal Bowel Sounds, Soft, No Tenderness Extremities: Other (Left calf tight but non tender Incision healing well Limited AROM left shoulder due to OA) Neuro: Sensation Intact, Other (Generalized weakaness more so left shoulder and left knee) Psych/Mental Status: Mental Status NL, Other (cognition intact) Results Lab Data Laboratory Tests 12/17/17 04:50: Prothrombin Time 25.2H, INR Comment 2.3H Assessment/Plan Assessment and Plan Revision Left TKR for OA s/p explantation original hardware and placement of Antibiotic block for infection on minocycline OA of the spine s/p C and L spine surgeries OA of the left shoulder RLS OAB Diastolic CHF compensated Anemia Factor V leiden syndrome chronically anticoagulated HX of DVT/PE Valvular HT D Nocturnal resp insuff on 02 at HS Plan Continue PT/OT Adjust Coumadin dose as needed Team Conference later today -See report for full functional update and POC and ELOS Co-Morbidities that are continuing to impact the rehab process: (include details ) MYLA BIRCH MD Dec 17, 2017 09:01
--- NOTE | 2017-12-17 09:44 | Occupational Ther Daily Note ---
OT Current Status-Daily Note Subjective No pain reported. Appearance Pt. is in bed. Alert and oriented. Agrees to shower. Mental Status/Objective Patient Orientation: Person, Place, Time, Situation Functional [place] Measure 0=Not Assessed/NA 4=Minimal Assistance 1=Total Assistance 5=Supervision or Setup 2=Maximal Assistance 6=Modified [place] 3=Moderate Assistance 7=Complete [place] ADL-Treatment Functional [place] Measure 0=Not Assessed/NA 4=Minimal Assistance 1=Total Assistance 5=Supervision or Setup 2=Maximal Assistance 6=Modified [place] 3=Moderate Assistance 7=Complete IndependenceIRFPAI Quality Coding Scale 6 Independent with activity with or without an assistive device 5 Patient requires set up or clean up by helper. Patient completes activity by themselves 4 Supervision or touching assist (CGA). [place] provide cues , steadying assist 3 The helper provides less than half the effort to complete the activity 2 The helper provides more than half the effort to complete the activity 1 Dependent. The helper does all the effort to complete an activity 7 Patient refused to complete or attempt activity 9 The patient did not perform the activity before the current illness or injury 88 Not attempted due to Medical conditions or safety concerns Grooming (FIM): 5 (Set up at sink to brush hair and teeth. Pt. sits at chair and utilizes adaptive brush. OT has to push chair up to sink for pt.) Oral Hygiene (QC): 5 Bathing (FIM): 4 (Pt. is able to wash all parts with LH sponge. However, requires assist to stand and assist to wash rear sanjuana area.) Shower/Bathe Self (QC): 4 Upper Body (FIM): 4 (Pt. is able to don bra and shirt, but requires assist to adjust bra straps.) Upper Body Dressing (QC): 4 Lower Body Dressing (FIM): 3 (Pt. is able to thread brief and pants over feet with AE and pull to hips. Requires assistance to stand and to bleach boiler puller hips. Pt. is able to don slide on shoes.) Lower Body Dressing (QC): 3 On/Off Footwear (QC): 5 Toileting (FIM): 4 (Min assist to pull pants over hips.) Toileting Hygiene (QC): 4 Transfers (B, C, W/C) (FIM): 4 (Pt. able to transfer supine-sit with SBA using bedrail. Able to stand with min assist with walker and bed elevated.) Toilet/Commode Transfer (FIM): 3 Toilet Transfer (QC): 3 Shower Transfer(FIM): 3 Education OT Patient Education: Correct positioning, Modified ADL techniques, Progress toward Goal/Update tx plan, Purpose of tx/functional activities, Reviewed precautions, Rehab process, Transfer techniques, Use of adapted equipment Teaching Recipient: Patient Teaching Methods: Demonstration, Discussion Response to Teaching: Verbalize Understanding, Return Demonstration OT Short Term Goals Short Term Goals Time Frame: Dec 23, 2017 Grooming(FIM): 5 Lower Body Dressing(FIM): 4 Transfers (B,C,W/C) (FIM): 4 Toilet/Commode Transfer(FIM): 4 Additional Short Term Goals: 1-Demonstrate ADL Tasks, 2-Verbalize Understanding , 3-ImproveStrength/Ricardo 1=Demonstrate adherence to instructed precautions during ADL tasks. 2=Patient will verbalize/demonstrate understanding of assistive devices/ modifications for ADL. 3=Patient will improve strength/tolerance for activity to enable patient to perform ADL's. OT Head Of Precision Targeting Goals Head Of Precision Targeting Goals Time Frame: Jan 06, 2018 Eating (FIM): 6 Eating (QC): 6 Groomin Oral Hygiene (QC): 6 Bathing(FIM): 4 Shower/Bathe Self (QC): 4 Upper Body Dressing(FIM): 5 Upper Body Dressing (QC): 5 Lower Body Dressing(FIM): 4 (CGA) Lower Body Dressing (QC): 4 On/Off Footwear (QC): 5 Toileting(FIM): 5 Toileting Hygiene (QC): 5 Toilet/Commode Transfer(FIM): 5 Toilet/Commode Transfer (QC): 5 Shower Transfer(FIM): 4 Additional Goals: 1-Demonstrate ADL Tasks, 2-Verbalize Understanding, 3- ImproveStrength/Ricardo 1=Demonstrate adherence to instructed precautions during ADL tasks. 2=Patient will verbalize/demonstrate understanding of assistive devices/ modifications for ADL. 3=Patient will improve strength/tolerance for activity to enable patient to perform ADL's. OT Education/Plan Problem List/Assessment Assessment: Decreased Activ Tolerance, Decreased UE Strength, Dependent Transfers, Impaired Coordination, Impaired I ADL's, Impaired Self-Care Skills, Restricted Funct UE ROM Discharge Recommendations Plan/Recommendations: Continue POC Therapy D/C Recommendations: Home w/ Family Support, Occupational Therapy Home Care, Scheduled Assistance Treatment Plan/Plan of Care Treatment,Training & Education: Yes Patient would benefit from OT for education, treatment and training to promote independence in ADL's, mobility, safety and/or upper extremity function for ADL' s. Plan of Care: ADL Retraining, Functional Mobility, Group Exercise/Act as Ind, UE Funct Exercise/Act Treatment Duration: Jan 06, 2018 Frequency: At least 5 of 7 days/Wk (IRF) Estimated Hrs Per Day: 1.5 hours per day Agreement: Yes Rehab Potential: Fair Time/GCodes Start Time: 08:15 Stop Time: 09:15 Total Time Billed (hr/min): 60 Billed Treatment Time 1, ADL x 4 SHAKIRA DOE OT Dec 17, 2017 09:44
--- NOTE | 2017-12-17 11:06 | Physical Therapy Daily Note ---
PT Daily Note-Current Subjective Pt. states her pain in left knee is 5/10. Pt. explains that she has been off all the meds for her arthritis that had been so helpful for many years. Pts goals are to be able to walk and go up down steps at home and sleep in her bed not the recline chair Pain Numeric Pain Scale: 5-Moderate Pain Location: Left Location Body Site: Knee Pain Description: Ache Mental Status Patient Orientation: Normal For Age Transfers Functional [place] Measure 0=Not Assessed/NA 4=Minimal Assistance 1=Total Assistance 5=Supervision or Setup 2=Maximal Assistance 6=Modified [place] 3=Moderate Assistance 7=Complete IndependenceIRFPAI Quality Coding Scale 6 Independent with activity with or without an assistive device 5 Patient requires set up or clean up by helper. Patient completes activity by themselves 4 Supervision or touching assist (CGA). [place] provide cues , steadying assist 3 The helper provides less than half the effort to complete the activity 2 The helper provides more than half the effort to complete the activity 1 Dependent. The helper does all the effort to complete an activity 7 Patient refused to complete or attempt activity 9 The patient did not perform the activity before the current illness or injury 88 Not attempted due to Medical conditions or safety concerns Transfers (B, C, W/C) (FIM): 3 Scootin Rollin Supine to/from Sit: 3 Sit to/from Stand: 4 Bed to/from Chair: 4 Weight Bearing Right Lower Extremity: Right Full Weight Bearing Left Lower Extremity: Left Weight Bearing/Tolerated Gait Training Does the Patient Walk?: Yes Gait (FIM): 2 Distance (FIM): 3=027-08 ft (100,40) Gait Level of Assist: 4 Gait Persons Needed: 1 Gait Assistive Device: FWW pt. with slow uneven step length, narrow MICKEY, followed by w/c secondary to fatigue, heavy weight bearing on to FWW Wheelchair Training Does the Pt Use a Wheelchair?: Yes Wheelchair (FIM): 6 Wheelchair Distance: 3=150 ft Wheelchair Level of Assist: 6 Type of Wheelchair: Manual has a manual and electric w/c at home Exercises Supine Ex: Ankle pumps, Quad Set, Rolling, Heel Slides, Short Arc Quads, Scooting, Straight leg raise (assist) Supine Reps: 12 NuStep Minutes: 8 NuStep Workload: 1 Treatments nustep emphasis on knee flexion and extension Assessment Current Status: Fair Progress AROM 18degrees to 65degrees (lacking 18 degrees ext) PT Short Term Goals Short Term Goals Time Frame: Dec 23, 2017 Transfers (B,C,W/C) (FIM): 4 Gait (FIM): 2 Gait Distance Comment: 60' Gait Level of Assist: 4 Gait Assistive Device: FWW Wheelchair Distance: 100'x2 PT Television Reporter Goals Senior Care Goals PT Television Reporter Goals Time Frame: Jan 06, 2018 Transfers (B,C,W/C) (FIM): 4 Sit to Lying (QC): 3 Lying-Sitting on Side/Bed(QC): 4 Sit to Stand (QC): 4 Rollin Roll Left to Right (QC): 4 Chair/[id number]-[id number] Xfer(QC): 4 Car Transfer (QC): 4 Gait (FIM): 2 Distance: 100' Walk 10 feet (QC): 4 Walk 10ft-Uneven Surface(QC): 4 Walk 50ft with 2 Turns (QC): 4 Gait Level of Assist: 5 Gait Assistive Device: FWW PT Plan Treatment/Plan Treatment Plan: Continue Plan of Care Treatment Plan: Bed Mobility, Concurrent Therapy, Education, Functional Activity Ricardo, Functional Strength, Group Therapy, Gait, Safety, Therapeutic Exercise, Transfers Treatment Duration: Jan 06, 2018 Frequency: At least 5 of 7 days/Wk (IRF) Estimated Hrs Per Day: 1.5 hours per day Patient and/or Family Agrees t: Yes Safety Risks/Education Patient Education: Gait Training, Transfer Techniques, Correct Positioning, W/ C Management, Disease Process, Safety Issues Teaching Recipient: Patient Teaching Methods: Demonstration, Discussion Response to Teaching: Verbalize Understanding, Return Demonstration, Reinforcement Needed Time/GCodes Time In: 1000 Time Out: 1100 Total Billed Treatment Time: 60 Total Billed Treatment 1,EX35m,GT25m G Codes Necessary: GORDON Ernst COMMUNITY DEVELOPMENT COORDINATOR Dec 17, 2017 11:06
--- NOTE | 2017-12-17 12:24 | Occupational Ther Daily Note ---
OT Current Status-Daily Note Subjective No pain reported. Appearance Pt. up in chair. Agrees to work with OT. Mental Status/Objective Patient Orientation: Person, Place, Time, Situation Functional [place] Measure 0=Not Assessed/NA 4=Minimal Assistance 1=Total Assistance 5=Supervision or Setup 2=Maximal Assistance 6=Modified [place] 3=Moderate Assistance 7=Complete [place] ADL-Treatment Functional [place] Measure 0=Not Assessed/NA 4=Minimal Assistance 1=Total Assistance 5=Supervision or Setup 2=Maximal Assistance 6=Modified [place] 3=Moderate Assistance 7=Complete IndependenceIRFPAI Quality Coding Scale 6 Independent with activity with or without an assistive device 5 Patient requires set up or clean up by helper. Patient completes activity by themselves 4 Supervision or touching assist (CGA). [place] provide cues , steadying assist 3 The helper provides less than half the effort to complete the activity 2 The helper provides more than half the effort to complete the activity 1 Dependent. The helper does all the effort to complete an activity 7 Patient refused to complete or attempt activity 9 The patient did not perform the activity before the current illness or injury 88 Not attempted due to Medical conditions or safety concerns Transfers (B, C, W/C) (FIM): 3 (Pt. requires mod assist sit-stand out of wheelchair to transfer back to recliner. Once she is standing, she is able to slowly ambulate to recliner.) Pt. attempts to self propel wheelchair to therapy gym. Due to arthritis, pt. is able to only propel approximately 10 feet and then requires rest break. OT pushes rest of way. Pt. attempts nut/bolt activity to work on fine motor strengthening/ROM in shoulders. Due to limited shoulder ROM and finger coordination, this task was difficult and so a new task was started. Pt. given pool noodle and worked on pelvic work seated with trunk flexion/extension. Educated pt. to keep trunk upright and utilize back muscles to come back into extension. Pt. able to do this but reports that it wears her out. Completed bilateral shoulder flexion exercises within her range. Also worked on seated knee extension exercises x 10 reps, plantar flexion exercises x 10 reps, and glute squeezes x 15 reps. Pt. attempted again to self propel back to room but fatigued easily and so OT pushed her the rest of the way. All needs met in room after transfer to recliner. Education OT Patient Education: Correct positioning, Exercise program, Modified ADL techniques, Progress toward Goal/Update tx plan, Purpose of tx/functional activities, Reviewed precautions, Rehab process, Transfer techniques Teaching Recipient: Patient Teaching Methods: Demonstration, Discussion Response to Teaching: Verbalize Understanding, Return Demonstration OT Short Term Goals Short Term Goals Time Frame: Dec 23, 2017 Grooming(FIM): 5 Lower Body Dressing(FIM): 4 Transfers (B,C,W/C) (FIM): 4 Toilet/Commode Transfer(FIM): 4 Additional Short Term Goals: 1-Demonstrate ADL Tasks, 2-Verbalize Understanding , 3-ImproveStrength/Ricardo 1=Demonstrate adherence to instructed precautions during ADL tasks. 2=Patient will verbalize/demonstrate understanding of assistive devices/ modifications for ADL. 3=Patient will improve strength/tolerance for activity to enable patient to perform ADL's. OT Research Support Specialist Goals Shelter Goals Time Frame: Jan 06, 2018 Eating (FIM): 6 Eating (QC): 6 Groomin Oral Hygiene (QC): 6 Bathing(FIM): 4 Shower/Bathe Self (QC): 4 Upper Body Dressing(FIM): 5 Upper Body Dressing (QC): 5 Lower Body Dressing(FIM): 4 (CGA) Lower Body Dressing (QC): 4 On/Off Footwear (QC): 5 Toileting(FIM): 5 Toileting Hygiene (QC): 5 Toilet/Commode Transfer(FIM): 5 Toilet/Commode Transfer (QC): 5 Shower Transfer(FIM): 4 Additional Goals: 1-Demonstrate ADL Tasks, 2-Verbalize Understanding, 3- ImproveStrength/Ricardo 1=Demonstrate adherence to instructed precautions during ADL tasks. 2=Patient will verbalize/demonstrate understanding of assistive devices/ modifications for ADL. 3=Patient will improve strength/tolerance for activity to enable patient to perform ADL's. OT Education/Plan Problem List/Assessment Assessment: Decreased Activ Tolerance, Decreased UE Strength, Dependent Transfers, Impaired Bed Mobility, Impaired Coordination, Impaired I ADL's, Impaired Self-Care Skills, Restricted Funct UE ROM Discharge Recommendations Plan/Recommendations: Continue POC Therapy D/C Recommendations: Home w/ Family Support, Occupational Therapy Home Care Treatment Plan/Plan of Care Treatment,Training & Education: Yes Patient would benefit from OT for education, treatment and training to promote independence in ADL's, mobility, safety and/or upper extremity function for ADL' s. Plan of Care: ADL Retraining, Functional Mobility, Group Exercise/Act as Ind, UE Funct Exercise/Act Treatment Duration: Jan 06, 2018 Frequency: At least 5 of 7 days/Wk (IRF) Estimated Hrs Per Day: 1.5 hours per day Agreement: Yes Rehab Potential: Fair Time/GCodes Start Time: 11:30 Stop Time: 12:00 Total Time Billed (hr/min): 30 Billed Treatment Time 1, FA x 2 SHAKIRA DOE OT Dec 17, 2017 12:24
[2017-12-17] MEDS: BUMETANIDE 1 MG (BUMEX) TAB PO SCH (13:37)
--- NOTE | 2017-12-17 14:17 | Individualized Plan of Care ---
Individualized Plan of Care Rehab Nursing IPOC Order Admission Date Dec 16, 2017 at 09:00 Current Orders Orders Pt Evaluate/Treat Request (12/16/17 09:22) Request Ot Evaluate & Treat (12/16/17 09:22) Request For Cognitive Services (12/16/17 09:22) Admission Arrival Bed Request (12/16/17 09:24) Consult Physician (12/16/17 10:08) Ambulate 08,12,20 (12/16/17 10:15) Sequential Compression Device 08,20 (12/16/17 10:15) Dvt/Vte Risk - Notifiy Physici 08 (12/16/17 10:15) Influenza Quad (5+Yoa) 2017- (Afluria (12/16/17 10:30) Gabapentin Capsule/Tablet (Neurontin Cap (12/16/17 13:00) Magnesium Hydroxide Oral Susp (Mom Oral (12/16/17 10:45) Prednisone Tablet (Deltasone Tablet) (12/17/17 09:00) Warfarin Tablet (Coumadin Tablet) (12/16/17 18:00) Bumetanide Tablet (Bumex Tablet) (12/17/17 07:00) Calcium Carbonate Chew Tablet (Antacid C (12/16/17 11:00) Hydrocodone/Apap 5/325 Tablet (Lortab 5 (12/16/17 11:00) Magnesium Oxide Tablet (Mag Ox Tablet) (12/17/17 08:00) (Nf) Minocycline Hcl (12/16/17 21:00) Oxybutynin Tablet (Ditropan Tablet) (12/16/17 13:00) Potassium Chloride (Tablet) (K Dur Table (12/17/17 07:00) Pramipexole Tablet (Mirapex Tablet) (12/16/17 21:00) Tizanidine Tablet (Zanaflex Tablet) (12/16/17 10:45) Admission Order(Inpt,Obs,Sdc) (12/16/17 10:52) Vital Signs: Routine (Order) 08,16,00 (12/16/17 10:52) Corporate Operations Compliance Manager-Inpt Rehab Con (12/16/17 10:52) Rehab Nursing Orders-Ipoc (12/16/17 10:52) Turn And Reposition Q2HR (12/16/17 10:52) Intake & Output 06,14,22 (12/16/17 10:52) Weight Bearing Status (12/16/17 10:52) Precautions (Aru) (12/16/17 10:52) Weekly Weight (Lbs) WEEK (12/16/17 10:52) Code/Resuscitation (12/16/17 10:52) Initiate Admission Nursing Pro .admission (12/16/17 10:52) General/Regular (12/16/17 Lunch) Patient May Use Own Med,Single (Patient (12/16/17 11:30) Oxygen-Administer 07,19 (12/16/17 11:40) Oxygen Delivery Set Up (12/16/17 11:40) Patient Visit (12/16/17 ) Speech Sound Lang Comp (12/16/17 ) Patient Visit (12/16/17 ) Pt Eval Moderate Complexity (12/16/17 ) Gait Training, Ea 15 Min (12/16/17 ) Exercise Therap, Ea 15 Min (12/16/17 ) Wheelchair Mgmt/Propulsn 15min (12/16/17 ) Protime With Inr (12/17/17 06:00) Consult Physician (12/16/17 18:06) Rehab Nursing Orders: Ongoing Assess. of Cognitive Status, Ongoing Assess. of Function Status, Disease Management & Educaiton, DVT Prophylaxis, Fall Prevention, Fluid/Electrolyte/Nutrition Mgmt, Infection Prevention, Medication Management & Education, Management of Risks & Complications, Management of Skin Intergrity, Nutrition Management, Pain Management, Patient/Family Support PT IPOC Problem List: Activity Tolerance, Functional Strength, Safety, Balance, Gait, Transfer, Bed Mobility, ROM Treatment Plan: Continue Plan of Care Bed Mobility, Concurrent Therapy, Education, Functional Activity Ricardo, Functional Strength, Group Therapy, Gait, Safety, Therapeutic Exercise, Transfers Treatment Duration: Jan 06, 2018 Frequency: At least 5 of 7 days/Wk (IRF) Estimated Hrs Per Day: 1.5 hours per day OT IPOC Problems: Decreased Activ Tolerance, Decreased UE Strength, Dependent Transfers , Impaired Bed Mobility, Impaired Coordination, Impaired I ADL's, Impaired Self- Care Skills, Restricted Funct UE ROM OT Treatment, Training and Edu: Yes Plan of Care: ADL Retraining, Functional Mobility, Group Exercise/Act as Ind, UE Funct Exercise/Act Treatment Duration: Jan 06, 2018 Frequency: At least 5 of 7 days/Wk (IRF) Estimated Hrs Per Day: 1.[address] IPOC Speech Therapy Treatment Plan: Discontinue ST Treatment Duration: Dec 17, 2017 Frequency: Modified Program (IRF) (0) Estimated Hrs Per Day: Other (0) Corporate Operations Compliance Manager/Case Mgmt Corporate Operations Compliance Manager/Case Managemen: Discharge Planning, Patient/Family Counseling Dietitian/Blood Bank Laboratory Technician Dietitian/Blood Bank Laboratory Technician to monitor nutritional status and make changes and/or recommendations as needed and work with speech pathology on dietary upgrades as the occur. Physician IPOC Medical Issues being managed closely and that require the 24 hour availability of a physician: Chronic anticoagulation Diastolic CHF compensated Factor V Leiden OAB Hx of DVT /PE [facility] code 08.61 Etiologic DX OA left knee Medical Issues: DVT Prophylaxis, Falls Precautions, Infection Protection, Pain Management, Other (List) (as per above) Brief Synthesis of Preadmission Screen, Post-Admission Evaluation, and Therapy Evaluations: 67 yo female who developed an infection in Left TKR requiring revision surgery and antibiotics referrred to IRU for ongoing care and therapies prior to discharge to home with spouse Had been Independent prior to this but has OA of the left shoulder and has had prior Lumbar and Cervical spine surgery.Has Leiden V factor and is chronically anticoagulated.INR therapeutic today Medical Prognosis: Good Anticipated Length of Stay: 01-06-18 Modified Independent for adls and mobility skills Anticipated d/c Destination: Home with spouse MYLA BIRCH MD Dec 17, 2017 14:17
--- NOTE | 2017-12-17 14:36 | Physical Therapy Daily Note ---
PT Daily Note-Current Subjective Pt. rates pain in left knee at 5/10. Pt. requests standard recliner be put back in her room as she cannot get comfortable in the lift recline chair Pain Numeric Pain Scale: 5-Moderate Pain Location: Left Location Body Site: Knee Pain Description: Ache, Stabbing Mental Status Patient Orientation: Normal For Age Transfers Functional [place] Measure 0=Not Assessed/NA 4=Minimal Assistance 1=Total Assistance 5=Supervision or Setup 2=Maximal Assistance 6=Modified [place] 3=Moderate Assistance 7=Complete IndependenceIRFPAI Quality Coding Scale 6 Independent with activity with or without an assistive device 5 Patient requires set up or clean up by helper. Patient completes activity by themselves 4 Supervision or touching assist (CGA). [employer] provide cues , steadying assist 3 The helper provides less than half the effort to complete the activity 2 The helper provides more than half the effort to complete the activity 1 Dependent. The helper does all the effort to complete an activity 7 Patient refused to complete or attempt activity 9 The patient did not perform the activity before the current illness or injury 88 Not attempted due to Medical conditions or safety concerns sit to stands x 1 SBA, in out bed mod assist LEs Weight Bearing Right Lower Extremity: Right Full Weight Bearing Left Lower Extremity: Left Weight Bearing/Tolerated Gait Training Gait Assistive Device: FWW 75ftx2 , slow, pain increasing Exercises Seated Therapy Exercises: Ankle pumps, Sit to stand, Long arc quads, Hip flexion Seated Reps: 15 Treatments toileted min assist Assessment Current Status: Good Progress slow progress, gives full effort PT Short Term Goals Short Term Goals Time Frame: Dec 23, 2017 Transfers (B,C,W/C) (FIM): 4 Gait (FIM): 2 Gait Distance Comment: 60' Gait Level of Assist: 4 Gait Assistive Device: FWW Wheelchair Distance: 100'x2 PT Topology Teacher Goals Topology Teacher Goals PT Topology Teacher Goals Time Frame: Jan 06, 2018 Transfers (B,C,W/C) (FIM): 4 Sit to Lying (QC): 3 Lying-Sitting on Side/Bed(QC): 4 Sit to Stand (QC): 4 Rollin Roll Left to Right (QC): 4 Chair/Fet-cj-Sttfx Xfer(QC): 4 Car Transfer (QC): 4 Gait (FIM): 2 Distance: 100' Walk 10 feet (QC): 4 Walk 10ft-Uneven Surface(QC): 4 Walk 50ft with 2 Turns (QC): 4 Gait Level of Assist: 5 Gait Assistive Device: FWW PT Plan Treatment/Plan Treatment Plan: Continue Plan of Care Treatment Plan: Bed Mobility, Concurrent Therapy, Education, Functional Activity Ricardo, Functional Strength, Group Therapy, Gait, Safety, Therapeutic Exercise, Transfers Treatment Duration: Jan 06, 2018 Frequency: At least 5 of 7 days/Wk (IRF) Estimated Hrs Per Day: 1.5 hours per day Patient and/or Family Agrees t: Yes Safety Risks/Education Patient Education: Gait Training, Transfer Techniques, Correct Positioning, Disease Process, Safety Issues Teaching Recipient: Patient Teaching Methods: Demonstration, Discussion Response to Teaching: Verbalize Understanding, Reinforcement Needed Time/GCodes Time In: 1400 Time Out: 1430 Total Billed Treatment Time: 30 Total Billed Treatment 1,EX10m,FA20m G Codes Necessary: GORDON Ernst REVIEW ANALYST Dec 17, 2017 14:36
--- NOTE | 2017-12-17 17:16 | Podiatry Progress Note ---
Standard Progress Note Progress Notes/Assess & Plan Date Seen by a Provider: Dec 17, 2017 Time Seen by a Provider: 17:16 Progress/Assessment & Plan Consult dictated. Foot care given. Recommend a topical antibiotic ointment to the hallux toenail borders for the next 5 days. Final Diagnosis Peripheral Neuropathy, Onychomycosis, Onychocryptosis, Hammertoes. SALTY PATEL DPM Dec 17, 2017 17:16
[2017-12-17 17:24] VITALS: BP 150/89
[2017-12-17] MEDS: warFARin 7.5 MG (COUMADIN) TAB PO SCH (17:46)
--- NOTE | 2017-12-17 19:40 | CONSULTATION REPORT ---
DATE OF SERVICE: 12/17/2017 REASON FOR CONSULT: Continuation of foot care. HISTORY OF PRESENT ILLNESS: The patient is well known to our office. 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 The hardware was removed in [place] after which antibiotic beads were placed in 2016. The patient has had a deep venous thrombosis and is on anticoagulants. She also is on oxygen and utilizes a CPAP halfway. She has difficulty reaching for and caring for her feet and is complaining about toenails at this point. PAST MEDICAL HISTORY: Includes Factor V Leiden, deep venous thrombosis, pulmonary embolism, rheumatoid arthritis, osteoarthritis, spinal arthritis. She has had the above-mentioned knee surgery as well as lumbar spine surgery and cervical spine surgery. She has also had an IVC filter placement, hysterectomy, foot surgery. ALLERGIES: SHE IS ALLERGIC TO PENICILLIN, BACLOFEN, CEFUROXIME, CYCLOBENZAPRINE, LEVOFLOXACIN, VANCOMYCIN, METRONIDAZOLE. SOCIAL HISTORY: The patient lives in a one story home in [place] with her spouse. She denies tobacco, alcohol or illicit drug use. PHYSICAL EXAMINATION: On examination, the patient has 2/4 dorsalis pedis pulse bilaterally, 0/4 posterior tibial pulse bilateral. Capillary refill time is less than 3 seconds. She has incurvated borders to the hallux toenail with no erythema, edema or gross signs of bacterial infection at this time. She has thick yellow dystrophic toenail with subungual debris associated with R1, 2, 3, 4, 5 and L1, 3, 4, 5 digits. She has intact protective sensation with 10 gram monofilament wire examination bilaterally. Diminished vibratory sensation to the forefoot bilaterally. Contracted toes are noted, right second, third, fifth and left second, third, fourth and fifth digits. ASSESSMENT: 1. Idiopathic neuropathy. 2. Atherosclerosis. 3. Onychomycosis. 4. Hammer digit syndrome and onychocryptosis. PLAN: Various treatment options were discussed with the patient. Her toenails were debrided manually and mechanically. Betadine applied. We discussed use of an antibiotic on the ingrown toenails for a period of time until she is able to come to the office and have them surgically repaired, if necessary. In the meantime, they were cut straight across and a topical antibiotic applied. She will continue with her extra depth shoes. Job ID: [id number] DocumentID: [id number] Dictated Date: 12/17/2017 17:14:04 Telescope Repairer Date: 12/17/2017 19:40:17 Dictated By: SALTY PATEL DPM
[2017-12-18] MEDS: HYDROcodone/APAP 5 MG/325 MG (LORTAB) TAB PO PRN ×4 (01:37→19:30)
[2017-12-18 04:08] VITALS: BP 125/78
[2017-12-18] MEDS: KCL 20 MEQ TAB (K-DUR) PO SCH (06:30)
[2017-12-18] MEDS: PRAMIPEXOLE 0.125 MG (MIRAPEX) TABLET PO SCH ×2 (07:29→21:12)
[2017-12-18] MEDS: predniSONE 5 MG TAB PO SCH (07:30)
[2017-12-18] MEDS: GABAPENTIN 300 MG (NEURONTIN) CAP PO SCH ×4 (07:30→21:12)
[2017-12-18] MEDS: OXYBUTYNIN (DITROPAN) 5 MG TAB PO SCH ×3 (07:30→21:12)
[2017-12-18] MEDS: MAGNESIUM OXIDE (MAG-OX)400 MG TAB PO SCH (07:30)
[2017-12-18] MEDS: MINOCYCLINE HCL 100 MG PO SCH ×2 (07:31→21:12)
--- NOTE | 2017-12-18 08:13 | PM & R (SOAP) Progress Note ---
Subjective This was a face to face visit with the patient. Date Seen by Provider: Dec 18, 2017 Time Seen by Provider: 07:45 Subjective/Events-last exam Patient was seen in her room this AM Patient Mod assist for transfers Discussed case with DR Mchugh last evening.Appreciate his note. INR therapeutic Review of Systems Musculoskeletal: leg pain Neurological: Weakness Objective Physician Exam Last Set of Vital Signs Vital Signs Date Time Temp Pulse Resp B/P (MAP) Pulse Ox O2 Delivery O2 Flow Rate FiO2 12/18/17 07:33 Room Air 12/18/17 04:08 98.2 76 20 125/78 (94) 94 Capillary Refill : Less Than 3 Seconds I&O Intake and Output 12/18/17 00:00 Intake Total 710 ml Balance 710 ml Intake Oral 710 ml # Voids 9 General: Alert, Oriented X3, Cooperative, No Acute Distress HEENT: Atraumatic, PERRLA, EOMI, Mucous Memb Moist/[place] Neck: Supple, No JVD Lungs: Clear to Auscultation Heart: Regular Rate Abdomen: Normal Bowel Sounds, Soft, No Tenderness Extremities: Other (Left calf tight but non tender Incision healing well Limited AROM left shoulder due to OA) Neuro: Sensation Intact, Other (Generalized weakaness more so left shoulder and left knee) Psych/Mental Status: Mental Status NL, Other (cognition intact) Results Lab Data Laboratory Tests 12/17/17 04:50: Prothrombin Time 25.2H, INR Comment 2.3H Assessment/Plan Assessment and Plan Revision left TKR for OA s/p explantation of hardware for infection and now with revision after antibiotic beads. Onychomycosis Hammer toes OA of the spine s/p C and Lumbar spine surgery OA of the left shoulder RLS OAB Diastolic CHF compensated Anemia Factor V leiden factor Chronically anticoagulated HX of DVT /PE Valvular HT D Nocturnal resp insuff on 02 at HS Plan Continue PT/OT Goal return to home with spouse at [facility] Independent to supervision for adls and mobility skills Co-Morbidities that are continuing to impact the rehab process: (include details ) MYLA BIRCH MD Dec 18, 2017 08:13
[2017-12-18 09:06] LABS: INR 2.2 (0.8-1.4); PROTHROMBIN TIME PATIENT 24.7 SEC (12.2-14.7)
--- NOTE | 2017-12-18 10:57 | Occupational Ther Daily Note ---
OT Current Status-Daily Note Subjective Pt stated that she slept much better the night before and that she was worn out last night. Appearance Pt alert and willing to work with OT. Mental Status/Objective Patient Orientation: Person, Place, Time, Situation Functional [place] Measure 0=Not Assessed/NA 4=Minimal Assistance 1=Total Assistance 5=Supervision or Setup 2=Maximal Assistance 6=Modified [place] 3=Moderate Assistance 7=Complete [place] ADL-Treatment Functional [place] Measure 0=Not Assessed/NA 4=Minimal Assistance 1=Total Assistance 5=Supervision or Setup 2=Maximal Assistance 6=Modified [place] 3=Moderate Assistance 7=Complete IndependenceIRFPAI Quality Coding Scale 6 Independent with activity with or without an assistive device 5 Patient requires set up or clean up by helper. Patient completes activity by themselves 4 Supervision or touching assist (CGA). [place] provide cues , steadying assist 3 The helper provides less than half the effort to complete the activity 2 The helper provides more than half the effort to complete the activity 1 Dependent. The helper does all the effort to complete an activity 7 Patient refused to complete or attempt activity 9 The patient did not perform the activity before the current illness or injury 88 Not attempted due to Medical conditions or safety concerns Grooming (FIM): 5 (Pt able to brush hair with long handled brush. Pt able to brush teeth. Pt participated in these tasks while sitting in chair at sink. OT provided SBA while Pt participated in tasks. ) Bathing (FIM): 4 (Pt able to wash all body parts except front and rear sanjuana area. OT assisted with cleansing sanjuana areas. Pt required SBA and setup during bathing for all other parts. Pt used long handled sponge for bathing. Pt. uses shower bench and grab bars in shower. ) Bathing Location: L Arm, R Arm, L Upper Leg, R Upper Leg, L Lower Leg ( including foot), R Lower Leg (including foot), Chest, Abdomen Upper Body (FIM): 4 (Pt able to doff and don shirt with SBA. Requires min assist to fasten bra. ) Lower Body Dressing (FIM): 4 (Pt able to doff undergarments, Pt did not have on pants. Pt requires assistance to pull pants and undergarments over hips and buttocks at stand holding grab bars in shower. Pt requires SBA and setup. Pt does not wear socks but able to put on shoes with setup. ) Toileting (FIM): 4 (Pt. requires assist to doff brief over hips. Able to cleanse sanjuana area. Requires min assist to stand from toilet with walker and grab bar.) Transfers (B, C, W/C) (FIM): 3 (Pt transferred from supine to sit SBA. Pt transferred from sit to stand with MOD A to walker. Pt transferred from stand to sit in recliner with MIN A. ) Toilet/Commode Transfer (FIM): 4 Shower Transfer(FIM): 3 (Pt able to transfer from stand to sit with SBA. Pt transferred from shower bench to stand with MOD A. ) Pt participated in undressing, showering, dressing, and grooming tasks of brushing hair and teeth. Pt. utilized AE throughout tasks to increase overall independence. Pt seemed able to participate in tasks in less time today. Pt. ambulated to chair in room from bathroom after therapy session with SBA. Pt transferred to recliner with MIN A. All needs met. Education OT Patient Education: Correct positioning, Modified ADL techniques, Progress toward Goal/Update tx plan, Purpose of tx/functional activities, Reviewed precautions, Rehab process, Transfer techniques, Use of adapted equipment Teaching Recipient: Patient Teaching Methods: Demonstration, Discussion Response to Teaching: Verbalize Understanding, Return Demonstration OT Short Term Goals Short Term Goals Time Frame: Dec 23, 2017 Grooming(FIM): 5 Lower Body Dressing(FIM): 4 Transfers (B,C,W/C) (FIM): 4 Toilet/Commode Transfer(FIM): 4 Additional Short Term Goals: 1-Demonstrate ADL Tasks, 2-Verbalize Understanding , 3-ImproveStrength/Ricardo 1=Demonstrate adherence to instructed precautions during ADL tasks. 2=Patient will verbalize/demonstrate understanding of assistive devices/ modifications for ADL. 3=Patient will improve strength/tolerance for activity to enable patient to perform ADL's. OT Fdc Goals Fdc Goals Time Frame: Jan 06, 2018 Eating (FIM): 6 Eating (QC): 6 Groomin Oral Hygiene (QC): 6 Bathing(FIM): 4 Shower/Bathe Self (QC): 4 Upper Body Dressing(FIM): 5 Upper Body Dressing (QC): 5 Lower Body Dressing(FIM): 4 (CGA) Lower Body Dressing (QC): 4 On/Off Footwear (QC): 5 Toileting(FIM): 5 Toileting Hygiene (QC): 5 Toilet/Commode Transfer(FIM): 5 Toilet/Commode Transfer (QC): 5 Shower Transfer(FIM): 4 Additional Goals: 1-Demonstrate ADL Tasks, 2-Verbalize Understanding, 3- ImproveStrength/Ricardo 1=Demonstrate adherence to instructed precautions during ADL tasks. 2=Patient will verbalize/demonstrate understanding of assistive devices/ modifications for ADL. 3=Patient will improve strength/tolerance for activity to enable patient to perform ADL's. OT Education/Plan Problem List/Assessment Assessment: Decreased Activ Tolerance, Decreased UE Strength, Impaired Bed Mobility, Impaired Funct Balance, Impaired I ADL's, Impaired Self-Care Skills Discharge Recommendations Plan/Recommendations: Continue POC Therapy D/C Recommendations: Home w/ Family Support, Occupational Therapy Home Care Treatment Plan/Plan of Care Treatment,Training & Education: Yes Patient would benefit from OT for education, treatment and training to promote independence in ADL's, mobility, safety and/or upper extremity function for ADL' s. Plan of Care: ADL Retraining, Functional Mobility, Group Exercise/Act as Ind, UE Funct Exercise/Act Treatment Duration: Jan 06, 2018 Frequency: At least 5 of 7 days/Wk (IRF) Estimated Hrs Per Day: 1.5 hours per day Agreement: Yes Rehab Potential: Fair Time/GCodes Start Time: 08:15 Stop Time: 09:20 Total Time Billed (hr/min): 65 Billed Treatment Time 1, ADL x 65 minutes. SHAKIRA DOE OT Dec 18, 2017 10:57
--- NOTE | 2017-12-18 12:05 | Physical Therapy Daily Note ---
PT Daily Note-Current Subjective Pt sitting in recliner upon arrival. Pt agrees to PT. Pain Numeric Pain Scale: 5-Moderate Pain Location: Left Location Body Site: Knee Pain Description: Ache Mental Status Patient Orientation: Person, Place, Time, Situation Transfers Functional [place] Measure 0=Not Assessed/NA 4=Minimal Assistance 1=Total Assistance 5=Supervision or Setup 2=Maximal Assistance 6=Modified [place] 3=Moderate Assistance 7=Complete IndependenceIRFPAI Quality Coding Scale 6 Independent with activity with or without an assistive device 5 Patient requires set up or clean up by helper. Patient completes activity by themselves 4 Supervision or touching assist (CGA). [place] provide cues , steadying assist 3 The helper provides less than half the effort to complete the activity 2 The helper provides more than half the effort to complete the activity 1 Dependent. The helper does all the effort to complete an activity 7 Patient refused to complete or attempt activity 9 The patient did not perform the activity before the current illness or injury 88 Not attempted due to Medical conditions or safety concerns Scootin Supine to/from Sit: 2 Sit to/from Stand: 4 Sit to Lying (QC): 2 Sit to Stand (QC): 4 Weight Bearing Right Lower Extremity: Right Full Weight Bearing Left Lower Extremity: Left Weight Bearing/Tolerated Gait Training Does the Patient Walk?: Yes Distance (FIM): 3=150 ft Distance: 175' Walk 10 feet (QC): 4 Walk 50 ft with 2 Turns(QC): 4 Walk 150 ft (QC): 4 Gait Level of Assist: 4 Gait Persons Needed: 1 Gait Assistive Device: FWW Pt walks slightly bowlegged with NBOS. Pt not able to lift RLE to step, shuffles foot through ambulation. Pt's margarita is slow and B knees are flexed. Pt has been walking this way for sometime due to previous injuries/surgeries. Wheelchair Training Does the Pt Use a Wheelchair?: Yes Wheelchair Distance: 1=779-25 ft Distance: 75' Wheelchair Level of Assist: 5 Wheel 50 ft with 2 turns (QC): 5 Type of Wheelchair: Manual Exercises Supine Ex: Ankle pumps, Quad Set, Glut sets, Heel Slides, Short Arc Quads, Straight leg raise, Hip abd/add Supine Reps: 20 NuStep Minutes: 10 NuStep Workload: 1 Treatments Pt transfers from bed to standing using FWW at [facility] due to balance. Pt ambulates in hallway using FWW at [facility] due to balance. Pt completes Supine Ex on Therapy mat with a few short rest breaks. Pt then uses NuStep for 10m at [facility] 1 for ROM only. Pt then ambulates back at end of tx to rest in [facility] for upcoming OT tx. Pt has all needs met. Assessment Current Status: Good Progress Pt continues to push/motivate self to get stronger and become more independent with all tasks given. Pt continues to complete Ex even when Therapy is not with pt so she can get stronger. PT Short Term Goals Short Term Goals Time Frame: Dec 23, 2017 Transfers (B,C,W/C) (FIM): 4 Gait (FIM): 2 Gait Distance Comment: 60' Gait Level of Assist: 4 Gait Assistive Device: FWW Wheelchair Distance: 100'x2 PT Induction Machine Operator Goals Induction Machine Operator Goals PT Induction Machine Operator Goals Time Frame: Jan 06, 2018 Transfers (B,C,W/C) (FIM): 4 Sit to Lying (QC): 3 Lying-Sitting on Side/Bed(QC): 4 Sit to Stand (QC): 4 Rollin Roll Left to Right (QC): 4 Chair/Gio-xg-Vscvk Xfer(QC): 4 Car Transfer (QC): 4 Gait (FIM): 2 Distance: 100' Walk 10 feet (QC): 4 Walk 10ft-Uneven Surface(QC): 4 Walk 50ft with 2 Turns (QC): 4 Gait Level of Assist: 5 Gait Assistive Device: FWW PT Plan Problem List Problem List: Activity Tolerance, Functional Strength, Safety, Balance, Gait, Transfer Treatment/Plan Treatment Plan: Continue Plan of Care Treatment Plan: Bed Mobility, Concurrent Therapy, Education, Functional Activity Ricardo, Functional Strength, Group Therapy, Gait, Safety, Therapeutic Exercise, Transfers Treatment Duration: Jan 06, 2018 Frequency: At least 5 of 7 days/Wk (IRF) Estimated Hrs Per Day: 1.5 hours per day Patient and/or Family Agrees t: Yes Safety Risks/Education Patient Education: Gait Training, Transfer Techniques, Correct Positioning, W/ C Management, Safety Issues Teaching Recipient: Patient Teaching Methods: Demonstration, Discussion Response to Teaching: Verbalize Understanding Time/GCodes Time In: 1000 Time Out: 1100 Total Billed Treatment Time: 60 Total Billed Treatment 1, GT x2 (25m) & EX x2 (35m) G Codes Necessary: LUIS Mckinney OUTSIDE REPAIRER SPECIAL Dec 18, 2017 12:05
--- NOTE | 2017-12-18 13:43 | Occupational Ther Daily Note ---
OT Current Status-Daily Note Subjective Pt stated that she had a good lunch and was ready to go to the therapy gym. Appearance Pt up in recliner, willing to work with OT. Mental Status/Objective Patient Orientation: Person, Place, Time, Situation Functional [place] Measure 0=Not Assessed/NA 4=Minimal Assistance 1=Total Assistance 5=Supervision or Setup 2=Maximal Assistance 6=Modified [place] 3=Moderate Assistance 7=Complete [place] ADL-Treatment Functional [place] Measure 0=Not Assessed/NA 4=Minimal Assistance 1=Total Assistance 5=Supervision or Setup 2=Maximal Assistance 6=Modified [place] 3=Moderate Assistance 7=Complete IndependenceIRFPAI Quality Coding Scale 6 Independent with activity with or without an assistive device 5 Patient requires set up or clean up by helper. Patient completes activity by themselves 4 Supervision or touching assist (CGA). [place] provide cues , steadying assist 3 The helper provides less than half the effort to complete the activity 2 The helper provides more than half the effort to complete the activity 1 Dependent. The helper does all the effort to complete an activity 7 Patient refused to complete or attempt activity 9 The patient did not perform the activity before the current illness or injury 88 Not attempted due to Medical conditions or safety concerns Transfers (B, C, W/C) (FIM): 3 (Pt required MOD A for transfer from recliner sit to stand with walker. Pt needed MOD A for transfer from chair to wc at end of treatment. ) Other Treatment Pt ambulated to therapy gym without sitting for a break with CGA. This was approximately 200 feet. Pt completed fine motor activity to increase bilateral coordination, pinch marketing support manager, and activity tolerance. Pt completed removal and replacement of clothes pins, 2 times. Pt given instructions on use of hand sponge for hand strengthening that she can participate in at her leisure in her room. Pt transferred from chair to wc with MOD A. OT pushed Pt back to room after Pt stated she was feeling "a little worn out". Pt. left in wc per her request in room. All needs met. Education OT Patient Education: Correct positioning, Exercise program, Modified ADL techniques, Progress toward Goal/Update tx plan, Purpose of tx/functional activities, Reviewed precautions, Rehab process, Transfer techniques Teaching Recipient: Patient Teaching Methods: Demonstration, Discussion Response to Teaching: Verbalize Understanding, Return Demonstration OT Short Term Goals Short Term Goals Time Frame: Dec 23, 2017 Grooming(FIM): 5 Lower Body Dressing(FIM): 4 Transfers (B,C,W/C) (FIM): 4 Toilet/Commode Transfer(FIM): 4 Additional Short Term Goals: 1-Demonstrate ADL Tasks, 2-Verbalize Understanding , 3-ImproveStrength/Ricardo 1=Demonstrate adherence to instructed precautions during ADL tasks. 2=Patient will verbalize/demonstrate understanding of assistive devices/ modifications for ADL. 3=Patient will improve strength/tolerance for activity to enable patient to perform ADL's. OT Advertising Assistant Goals Shelter Goals Time Frame: Jan 06, 2018 Eating (FIM): 6 Eating (QC): 6 Groomin Oral Hygiene (QC): 6 Bathing(FIM): 4 Shower/Bathe Self (QC): 4 Upper Body Dressing(FIM): 5 Upper Body Dressing (QC): 5 Lower Body Dressing(FIM): 4 (CGA) Lower Body Dressing (QC): 4 On/Off Footwear (QC): 5 Toileting(FIM): 5 Toileting Hygiene (QC): 5 Toilet/Commode Transfer(FIM): 5 Toilet/Commode Transfer (QC): 5 Shower Transfer(FIM): 4 Additional Goals: 1-Demonstrate ADL Tasks, 2-Verbalize Understanding, 3- ImproveStrength/Ricardo 1=Demonstrate adherence to instructed precautions during ADL tasks. 2=Patient will verbalize/demonstrate understanding of assistive devices/ modifications for ADL. 3=Patient will improve strength/tolerance for activity to enable patient to perform ADL's. OT Education/Plan Problem List/Assessment Assessment: Decreased Activ Tolerance, Decreased UE Strength, Impaired I ADL's , Impaired Self-Care Skills, Restricted Funct UE ROM Discharge Recommendations Plan/Recommendations: Continue POC Therapy D/C Recommendations: Home w/ Family Support, Occupational Therapy Home Care Treatment Plan/Plan of Care Treatment,Training & Education: Yes Patient would benefit from OT for education, treatment and training to promote independence in ADL's, mobility, safety and/or upper extremity function for ADL' s. Plan of Care: ADL Retraining, Functional Mobility, Group Exercise/Act as Ind, UE Funct Exercise/Act Treatment Duration: Jan 06, 2018 Frequency: At least 5 of 7 days/Wk (IRF) Estimated Hrs Per Day: 1.5 hours per day Agreement: Yes Rehab Potential: Fair Time/GCodes Start Time: 13:00 Stop Time: 13:25 Total Time Billed (hr/min): 25 Billed Treatment Time 1, EX x 25 minutes. SHAKIRA DOE OT Dec 18, 2017 13:43
[2017-12-18] MEDS: BUMETANIDE 1 MG (BUMEX) TAB PO SCH (14:37)
[2017-12-18] MEDS: MILK OF MAGNESIA 400 MG/5 ML 30 ML UDC PO PRN (14:38)
--- NOTE | 2017-12-18 14:55 | Physical Therapy Daily Note ---
PT Daily Note-Current Subjective Pt sitting in [facility] upon arrival. Pt agrees to PT. Pain Numeric Pain Scale: 4 Location: Right, Left Location Body Site: Knee Pain Description: Ache Comment: Pt doesn't report, based on facial expressions. Mental Status Patient Orientation: Person, Place, Time, Situation Transfers Functional [place] Measure 0=Not Assessed/NA 4=Minimal Assistance 1=Total Assistance 5=Supervision or Setup 2=Maximal Assistance 6=Modified [place] 3=Moderate Assistance 7=Complete IndependenceIRFPAI Quality Coding Scale 6 Independent with activity with or without an assistive device 5 Patient requires set up or clean up by helper. Patient completes activity by themselves 4 Supervision or touching assist (CGA). [place] provide cues , steadying assist 3 The helper provides less than half the effort to complete the activity 2 The helper provides more than half the effort to complete the activity 1 Dependent. The helper does all the effort to complete an activity 7 Patient refused to complete or attempt activity 9 The patient did not perform the activity before the current illness or injury 88 Not attempted due to Medical conditions or safety concerns Scootin Sit to/from Stand: 3 Sit to Stand (QC): 3 Weight Bearing Right Lower Extremity: Right Full Weight Bearing Left Lower Extremity: Left Weight Bearing/Tolerated Gait Training Does the Patient Walk?: Yes Distance (FIM): 4=123-79 ft Distance: 100' Walk 10 feet (QC): 3 Walk 50 ft with 2 Turns(QC): 3 Gait Level of Assist: 3 Gait Persons Needed: 1 Gait Assistive Device: FWW Pt continues to walked with flexed knees, slow margarita. Wheelchair Training Does the Pt Use a Wheelchair?: Yes Wheelchair Distance: 5=549-56 ft Distance: 75' Wheelchair Level of Assist: 5 Wheel 50 ft with 2 turns (QC): 5 Type of Wheelchair: Manual Exercises Seated Therapy Exercises: Ankle pumps, Long arc quads, Hip flexion, Kicking activity, Hip abd/add Seated Reps: 15 Treatments Pt propelled self to therapy gym. Pt preformed seated exercises. Pt ambulated in hallway. POLISHING MACHINE TENDER assisted Pt in toileting before leaving after all needs were met. Assessment Pt was fatigued prior to Tx and needed several rest breaks throughout. Pt continues to be motivated. PT Short Term Goals Short Term Goals Time Frame: Dec 23, 2017 Transfers (B,C,W/C) (FIM): 4 Gait (FIM): 2 Gait Distance Comment: 60' Gait Level of Assist: 4 Gait Assistive Device: FWW Wheelchair Distance: 75' PT Front Office Spec Goals Front Office Spec Goals PT Front Office Spec Goals Time Frame: Jan 06, 2018 Transfers (B,C,W/C) (FIM): 4 Sit to Lying (QC): 3 Lying-Sitting on Side/Bed(QC): 4 Sit to Stand (QC): 4 Rollin Roll Left to Right (QC): 4 Chair/Pns-hw-Dxtqw Xfer(QC): 4 Car Transfer (QC): 4 Gait (FIM): 2 Distance: 100' Walk 10 feet (QC): 4 Walk 10ft-Uneven Surface(QC): 4 Walk 50ft with 2 Turns (QC): 4 Gait Level of Assist: 5 Gait Assistive Device: FWW PT Plan Problem List Problem List: Activity Tolerance, Functional Strength, Safety, Gait, Transfer Treatment/Plan Treatment Plan: Continue Plan of Care Treatment Plan: Bed Mobility, Concurrent Therapy, Education, Functional Activity Ricardo, Functional Strength, Group Therapy, Gait, Safety, Therapeutic Exercise, Transfers Treatment Duration: Jan 06, 2018 Frequency: At least 5 of 7 days/Wk (IRF) Estimated Hrs Per Day: 1.5 hours per day Patient and/or Family Agrees t: Yes Safety Risks/Education Patient Education: Gait Training, Transfer Techniques, Safety Issues Teaching Recipient: Patient Time/GCodes Time In: 1400 Time Out: 1430 Total Billed Treatment Time: 30 Total Billed Treatment 1, GT (15m) EX (15m) G Codes Necessary: LUIS Mckinney POLISHING MACHINE TENDER Dec 18, 2017 14:55
[2017-12-18] MEDS ORDERED: GABAPENTIN 300 MG (NEURONTIN) CAP ONE (15:38)
[2017-12-18] MEDS: NEO/POLY/BAC (NEOSPORIN) OINT 15 GM TUBE TOP SCH (18:17)
[2017-12-18] MEDS: warFARin 7.5 MG (COUMADIN) TAB PO SCH (18:17)
[2017-12-18 18:18] VITALS: BP 122/89
[2017-12-18] MEDS ORDERED: NEO/POLY/BAC (NEOSPORIN) OINT 15 GM TUBE TOP SCH (21:00)
[2017-12-19] MEDS: HYDROcodone/APAP 5 MG/325 MG (LORTAB) TAB PO PRN ×3 (00:50→19:57)
[2017-12-19 05:04] VITALS: BP 125/72
[2017-12-19] MEDS: KCL 20 MEQ TAB (K-DUR) PO SCH (06:40)
[2017-12-19] MEDS: BUMETANIDE 1 MG (BUMEX) TAB PO SCH ×2 (06:40→12:23)
[2017-12-19 07:21] LABS: INR 2.1 (0.8-1.4); PROTHROMBIN TIME PATIENT 23.7 SEC (12.2-14.7)
[2017-12-19] MEDS: MAGNESIUM OXIDE (MAG-OX)400 MG TAB PO SCH (07:59)
[2017-12-19] MEDS: PRAMIPEXOLE 0.125 MG (MIRAPEX) TABLET PO SCH ×2 (07:59→19:57)
[2017-12-19] MEDS: predniSONE 5 MG TAB PO SCH (07:59)
[2017-12-19] MEDS: GABAPENTIN 300 MG (NEURONTIN) CAP PO SCH ×4 (07:59→19:56)
[2017-12-19] MEDS: NEO/POLY/BAC (NEOSPORIN) OINT 15 GM TUBE TOP SCH (08:11)
[2017-12-19] MEDS: MINOCYCLINE HCL 100 MG PO SCH ×2 (08:11→19:56)
[2017-12-19] MEDS: OXYBUTYNIN (DITROPAN) 5 MG TAB PO SCH ×3 (08:11→19:57)
--- NOTE | 2017-12-19 08:22 | PM & R (SOAP) Progress Note ---
Subjective This was a face to face visit with the patient. Date Seen by Provider: Dec 19, 2017 Time Seen by Provider: 07:45 Subjective/Events-last exam Patient was seen in her room this AM Patient min assist for transfers Objective Physician Exam Last Set of Vital Signs Vital Signs Date Time Temp Pulse Resp B/P (MAP) Pulse Ox O2 Delivery O2 Flow Rate FiO2 12/19/17 05:04 97.9 86 18 125/72 (89) 93 Room Air Capillary Refill : Less Than 3 Seconds I&O Intake and Output 12/19/17 00:00 Intake Total 1250 ml Balance 1250 ml Intake Oral 1250 ml # Voids 12 General: Alert, Oriented X3, Cooperative, No Acute Distress HEENT: Atraumatic, PERRLA, EOMI, Mucous Memb Moist/[place] Neck: Supple, No JVD Lungs: Clear to Auscultation Heart: Regular Rate Abdomen: Normal Bowel Sounds, Soft, No Tenderness Extremities: Other (Left calf tight but non tender Incision healing well Limited AROM left shoulder due to OA) Neuro: Sensation Intact, Other (Generalized weakaness more so left shoulder and left knee) Psych/Mental Status: Mental Status NL, Other (cognition intact) Results Lab Data Laboratory Tests 12/17/17 04:50: Prothrombin Time 25.2H, INR Comment 2.3H 12/18/17 08:00: Prothrombin Time 24.7H, INR Comment 2.2H 12/19/17 06:50: Prothrombin Time 23.7H, INR Comment 2.1H Assessment/Plan Assessment and Plan revision left TKR for OA s/p explantation of hardware for infection and now with revision after antibiotic beads Onychomycosis Hammer toes OA of the spine s/p C and L spine surgery remote OA of the left shoulder RLS OAB Diastolic CHF compensated Anemia Factor V leiden factor-chronically anticoagulated HX of DVT /PE Valvular HT D Nocturnal resp insuff on 02 at Plan Continue PT/OT Reconference next week Goal return home with spouse at [facility] Independent to supervision for adls and mobility skills Co-Morbidities that are continuing to impact the rehab process: (include details ) MYLA BIRCH MD Dec 19, 2017 08:22
--- NOTE | 2017-12-19 11:25 | Occupational Ther Daily Note ---
OT Current Status-Daily Note Subjective Pt sitting in chair, agrees to treatment. Pt reports 5/10 pain in left knee. Mental Status/Objective Functional [place] Measure 0=Not Assessed/NA 4=Minimal Assistance 1=Total Assistance 5=Supervision or Setup 2=Maximal Assistance 6=Modified [place] 3=Moderate Assistance 7=Complete [place] ADL-Treatment Pt requests to shower this morning. Pt sit to stand from chair with minimal assistance. Gait to restroom with FWW, slow pace. Transfer to shower with mod assist using grab bars, cues for safety. Pt doffed shirt with SBA. Min assist to doff pants. Seated bathing completed using hand held shower and long handled sponge. Pt requires assist to wash buttocks. Required assist to rinse hair. Don bra with minimal assistance to fasten. Don pullover shirt with set up. Pt used spice room worker to start Depends and pants over feet. Required min assist to pull up in the back while standing. Pt does not wear socks, but dons slip on shoes with set up. Grooming tasks completed seated at sink. Pt brushed teeth with set up. Dried hair with set up. Pt brushed hair with SBA using long handled brush. Increased time required for ADL tasks. Pt sitting in w/c with needs met after session. Functional [place] Measure 0=Not Assessed/NA 4=Minimal Assistance 1=Total Assistance 5=Supervision or Setup 2=Maximal Assistance 6=Modified [place] 3=Moderate Assistance 7=Complete IndependenceIRFPAI Quality Coding Scale 6 Independent with activity with or without an assistive device 5 Patient requires set up or clean up by helper. Patient completes activity by themselves 4 Supervision or touching assist (CGA). [place] provide cues , steadying assist 3 The helper provides less than half the effort to complete the activity 2 The helper provides more than half the effort to complete the activity 1 Dependent. The helper does all the effort to complete an activity 7 Patient refused to complete or attempt activity 9 The patient did not perform the activity before the current illness or injury 88 Not attempted due to Medical conditions or safety concerns Grooming (FIM): 5 Bathing (FIM): 4 Upper Body (FIM): 4 Upper Body Dressing (QC): 3 Lower Body Dressing (FIM): 4 Lower Body Dressing (QC): 3 Shower Transfer(FIM): 3 OT Short Term Goals Short Term Goals Time Frame: Dec 23, 2017 Grooming(FIM): 5 Lower Body Dressing(FIM): 4 Transfers (B,C,W/C) (FIM): 4 Toilet/Commode Transfer(FIM): 4 Additional Short Term Goals: 1-Demonstrate ADL Tasks, 2-Verbalize Understanding , 3-ImproveStrength/Ricardo 1=Demonstrate adherence to instructed precautions during ADL tasks. 2=Patient will verbalize/demonstrate understanding of assistive devices/ modifications for ADL. 3=Patient will improve strength/tolerance for activity to enable patient to perform ADL's. OT Boilermaker Assembly And Erection Goals Boilermaker Assembly And Erection Goals Time Frame: Jan 06, 2018 Eating (FIM): 6 Eating (QC): 6 Groomin Oral Hygiene (QC): 6 Bathing(FIM): 4 Shower/Bathe Self (QC): 4 Upper Body Dressing(FIM): 5 Upper Body Dressing (QC): 5 Lower Body Dressing(FIM): 4 (CGA) Lower Body Dressing (QC): 4 On/Off Footwear (QC): 5 Toileting(FIM): 5 Toileting Hygiene (QC): 5 Toilet/Commode Transfer(FIM): 5 Toilet/Commode Transfer (QC): 5 Shower Transfer(FIM): 4 Additional Goals: 1-Demonstrate ADL Tasks, 2-Verbalize Understanding, 3- ImproveStrength/Ricardo 1=Demonstrate adherence to instructed precautions during ADL tasks. 2=Patient will verbalize/demonstrate understanding of assistive devices/ modifications for ADL. 3=Patient will improve strength/tolerance for activity to enable patient to perform ADL's. OT Education/Plan Discharge Recommendations Plan/Recommendations: Continue POC Treatment Plan/Plan of Care Patient would benefit from OT for education, treatment and training to promote independence in ADL's, mobility, safety and/or upper extremity function for ADL' s. Plan of Care: ADL Retraining, Functional Mobility, Group Exercise/Act as Ind, UE Funct Exercise/Act Treatment Duration: Jan 06, 2018 Frequency: At least 5 of 7 days/Wk (IRF) Estimated Hrs Per Day: 1.5 hours per day Agreement: Yes Rehab Potential: Fair Time/GCodes Start Time: 08:30 Stop Time: 09:40 Total Time Billed (hr/min): 70 Billed Treatment Time 1 visit, ADLx4(70minutes) TEGAN HOOD OT Dec 19, 2017 11:25
--- NOTE | 2017-12-19 12:07 | Physical Therapy Daily Note ---
PT Daily Note-Current Subjective Pt was in restroom upon arrival. Pt c/o tightness and Pn in L LE at a rate of 6/ 10. Pt agrees to PT. Mental Status Patient Orientation: Normal For Age Transfers Functional [place] Measure 0=Not Assessed/NA 4=Minimal Assistance 1=Total Assistance 5=Supervision or Setup 2=Maximal Assistance 6=Modified [place] 3=Moderate Assistance 7=Complete IndependenceIRFPAI Quality Coding Scale 6 Independent with activity with or without an assistive device 5 Patient requires set up or clean up by helper. Patient completes activity by themselves 4 Supervision or touching assist (CGA). [place] provide cues , steadying assist 3 The helper provides less than half the effort to complete the activity 2 The helper provides more than half the effort to complete the activity 1 Dependent. The helper does all the effort to complete an activity 7 Patient refused to complete or attempt activity 9 The patient did not perform the activity before the current illness or injury 88 Not attempted due to Medical conditions or safety concerns Transfers (B, C, W/C) (FIM): 3 Scootin Rollin Supine to/from Sit: 3 Sit to/from Stand: 4 Weight Bearing Right Lower Extremity: Right Full Weight Bearing Left Lower Extremity: Left Weight Bearing/Tolerated Gait Training Does the Patient Walk?: Yes Gait (FIM): 5 Distance (FIM): 3=150 ft (160x2) Gait Level of Assist: 5 Gait Persons Needed: 1 Gait Assistive Device: FWW Pt lacks terminal extension at approximately 20 degrees. After stretching lacks approximately 10 degrees with more equal step length. Exercises Supine Ex: Ankle pumps, Quad Set, Heel Slides, Short Arc Quads, Straight leg raise Supine Reps: 20 Gentle posterior knee massage which facilitated extension. on nustep Pt was encouraged to fully extend and fully flex and hold. NuStep Minutes: 12 NuStep Workload: 1 Assessment Current Status: Good Progress Pt limited by lack of extension in L knee as well as multiple other joint involvement. PT Short Term Goals Short Term Goals Time Frame: Dec 23, 2017 Transfers (B,C,W/C) (FIM): 4 Gait (FIM): 2 Gait Distance Comment: 60' Gait Level of Assist: 4 Gait Assistive Device: FWW Wheelchair Distance: 75' PT Senior Care Goals Calender Wind Up Tender Goals PT Calender Wind Up Tender Goals Time Frame: Jan 06, 2018 Transfers (B,C,W/C) (FIM): 4 Sit to Lying (QC): 3 Lying-Sitting on Side/Bed(QC): 4 Sit to Stand (QC): 4 Rollin Roll Left to Right (QC): 4 Chair/Eoi-ed-Zehju Xfer(QC): 4 Car Transfer (QC): 4 Gait (FIM): 2 Distance: 100' Walk 10 feet (QC): 4 Walk 10ft-Uneven Surface(QC): 4 Walk 50ft with 2 Turns (QC): 4 Gait Level of Assist: 5 Gait Assistive Device: FWW PT Plan Problem List Problem List: Activity Tolerance, Functional Strength, Safety, Gait, Transfer Treatment/Plan Treatment Plan: Continue Plan of Care Treatment Plan: Bed Mobility, Concurrent Therapy, Education, Functional Activity Ricardo, Functional Strength, Group Therapy, Gait, Safety, Therapeutic Exercise, Transfers Treatment Duration: Jan 06, 2018 Frequency: At least 5 of 7 days/Wk (IRF) Estimated Hrs Per Day: 1.5 hours per day Patient and/or Family Agrees t: Yes Safety Risks/Education Patient Education: Gait Training, Transfer Techniques, Correct Positioning, Disease Process, Safety Issues Teaching Recipient: Patient Teaching Methods: Demonstration, Discussion Response to Teaching: Verbalize Understanding, Return Demonstration, Reinforcement Needed Time/GCodes Time In: 1100 Time Out: 1200 Total Billed Treatment Time: 60 Total Billed Treatment 1, Ex (30m), FA (15m), GT (15m) G Codes Necessary: GORDON Ernst MENTAL HEALTH PROGRAM SPECIALIST Dec 19, 2017 12:07
--- NOTE | 2017-12-19 14:26 | Therapy Group Daily Note ---
Therapy Daily Group Note Patient Education Topic Other List Below (TRF skills: rolling, scooting, sup to sit, sit to stand and floor) Exercises LE Seated Exercise Other/Notes Pt. participated in group PT OT session this date. Pt was very social, introduced herself and shared what she is most proud of in her life (her children). Pt. to from group via w/c. Pts. were educated in all types of TRFs with demonstrations of each being done. Pts. participated in return demonstration for sit to stand multiple times. Seated LE exercises were lead by patients recalling what they had learned with their therapies. Pt. in room after, SBA to gt in bed, gallardo at hand Start Time: 13:00 Stop Time: 14:10 Total Billed Treatment Time: 70 Total Billed Treatment 1,GRP GORDON CLARK SPOUTING INSTALLER Dec 19, 2017 14:26
[2017-12-19] MEDS: warFARin 7.5 MG (COUMADIN) TAB PO SCH (16:19)
[2017-12-19 18:00] VITALS: BP 152/84
[2017-12-20] MEDS: HYDROcodone/APAP 5 MG/325 MG (LORTAB) TAB PO PRN ×4 (02:24→19:21)
[2017-12-20 05:17] VITALS: BP 128/85
[2017-12-20] MEDS: KCL 20 MEQ TAB (K-DUR) PO SCH (05:51)
[2017-12-20 06:04] LABS: INR 2.2 (0.8-1.4); PROTHROMBIN TIME PATIENT 24.7 SEC (12.2-14.7)
[2017-12-20] MEDS: GABAPENTIN 300 MG (NEURONTIN) CAP PO SCH ×4 (08:06→21:29)
[2017-12-20] MEDS: predniSONE 5 MG TAB PO SCH (08:06)
[2017-12-20] MEDS: OXYBUTYNIN (DITROPAN) 5 MG TAB PO SCH (08:06)
[2017-12-20] MEDS: PRAMIPEXOLE 0.125 MG (MIRAPEX) TABLET PO SCH ×2 (08:07→21:29)
[2017-12-20] MEDS: MINOCYCLINE HCL 100 MG PO SCH ×2 (08:08→21:30)
[2017-12-20] MEDS: MAGNESIUM OXIDE (MAG-OX)400 MG TAB PO SCH (08:10)
[2017-12-20] MEDS: NEO/POLY/BAC (NEOSPORIN) OINT 15 GM TUBE TOP SCH (08:11)
--- NOTE | 2017-12-20 11:26 | Physical Therapy Daily Note ---
PT Daily Note-Current Subjective Pt rates (L) knee pain 5/10. Pt agreeable to PT. Transfers Functional [place] Measure 0=Not Assessed/NA 4=Minimal Assistance 1=Total Assistance 5=Supervision or Setup 2=Maximal Assistance 6=Modified [place] 3=Moderate Assistance 7=Complete IndependenceIRFPAI Quality Coding Scale 6 Independent with activity with or without an assistive device 5 Patient requires set up or clean up by helper. Patient completes activity by themselves 4 Supervision or touching assist (CGA). [place] provide cues , steadying assist 3 The helper provides less than half the effort to complete the activity 2 The helper provides more than half the effort to complete the activity 1 Dependent. The helper does all the effort to complete an activity 7 Patient refused to complete or attempt activity 9 The patient did not perform the activity before the current illness or injury 88 Not attempted due to Medical conditions or safety concerns Weight Bearing Right Lower Extremity: Right Full Weight Bearing Left Lower Extremity: Left Weight Bearing/Tolerated Exercises Supine Ex: Ankle pumps, Quad Set, Glut sets Supine Reps: 15 Treatments PT amb with FWW and CGA 150ft, slow steady speed Assessment Current Status: Good Progress Pt back to chair, legs elevated with call light and all needs met. Pt progressing appropriately. PT Short Term Goals Short Term Goals Time Frame: Dec 23, 2017 Transfers (B,C,W/C) (FIM): 4 Gait (FIM): 2 Gait Distance Comment: 60' Gait Level of Assist: 4 Gait Assistive Device: FWW Wheelchair Distance: 75' PT Youth Services Librarian Goals Group Home Goals PT Youth Services Librarian Goals Time Frame: Jan 06, 2018 Transfers (B,C,W/C) (FIM): 4 Sit to Lying (QC): 3 Lying-Sitting on Side/Bed(QC): 4 Sit to Stand (QC): 4 Rollin Roll Left to Right (QC): 4 Chair/Ruz-hh-Zhmou Xfer(QC): 4 Car Transfer (QC): 4 Gait (FIM): 2 Distance: 100' Walk 10 feet (QC): 4 Walk 10ft-Uneven Surface(QC): 4 Walk 50ft with 2 Turns (QC): 4 Gait Level of Assist: 5 Gait Assistive Device: FWW PT Plan Treatment/Plan Treatment Plan: Continue Plan of Care Treatment Plan: Bed Mobility, Concurrent Therapy, Education, Functional Activity Ricardo, Functional Strength, Group Therapy, Gait, Safety, Therapeutic Exercise, Transfers Treatment Duration: Jan 06, 2018 Frequency: At least 5 of 7 days/Wk (IRF) Estimated Hrs Per Day: 1.5 hours per day Patient and/or Family Agrees t: Yes Time/GCodes Time In: 730 Time Out: 800 Total Billed Treatment Time: 30 Total Billed Treatment 1, gait 25min, Ther ex 5min FER ROSE CPTA Dec 20, 2017 11:25
--- NOTE | 2017-12-20 12:06 | Progress Note-Hospitalist ---
Subjective HPI/CC On Admission Date Seen by Provider: Dec 20, 2017 Time Seen by Provider: 11:00 CC: Recovery in IRF after complicated left knee replacement HPI: This is a 67yoWF clinic patient of Dr Vasquez who presented to the IRF following DC from [place] after undergoing a hardware removal and placement of an antibiotic spacer in 2017 to recent replacement of the hardware. Patient has had a DVT and is maintained on anticoagulation. She wears O2 through her CPAP at night long-term. I reviewed her home meds and previous records. Subjective/Events-last exam Feels like she is progressing with physical therapy Pain is controlled Oxybutynin not working and asking for something different Checked meds and labs Will discontinue daily INRs Bowel movements normal Review of Systems Genitourinary: Frequency, Incontinence Objective Exam Vital Signs Vital Signs Date Time Temp Pulse Resp B/P (MAP) Pulse Ox O2 Delivery O2 Flow Rate FiO2 12/20/17 09:00 Room Air 12/20/17 05:17 98.7 76 16 128/85 (99) 93 Capillary Refill : Less Than 3 Seconds General Appearance: No Apparent Distress, WD/WN, Chronically ill Respiratory: Chest Non Tender, Lungs Clear, Normal Breath Sounds, No Accessory Muscle Use, No Respiratory Distress Cardiovascular: Regular Rate, Rhythm, No Edema, No Gallop, No JVD, No Murmur, Normal Peripheral Pulses Neurologic/Psychiatric: Alert, Oriented x3, No Motor/Sensory Deficits, Normal Mood/Affect Results/Procedures Lab Patient resulted labs reviewed. 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 Qualifiers: Encounter type: sequela Qualified Codes: T84.7XXS - Infection and inflammatory reaction due to other internal orthopedic prosthetic devices, implants and grafts, sequela (3) DVT (deep venous thrombosis) Status: Chronic Qualifiers: DVT location: lower extremity Affected thrombotic vein of extremity: unspecified vein of extremity Chronicity: chronic Laterality: left Qualified Codes: I82.502 - Chronic embolism and thrombosis of unspecified deep veins of left lower extremity (4) Anticoagulant long-term use Status: Chronic (5) Edema Status: Chronic (6) Nocturnal hypoxia Status: Chronic (7) VINCE on CPAP Status: Chronic (8) Overactive bladder Status: Chronic Clinical Quality Measures DVT/VTE Risk/Contraindication: Risk Factor Score Per Nursin RFS Level Per Nursing on Admit: 4+=Very High DARON MARIN DO Dec 20, 2017 12:06
[2017-12-20] MEDS ORDERED: TOLTERODINE LA 2 MG (DETROL LA) CAP PO NR (12:27)
[2017-12-20] MEDS: BUMETANIDE 1 MG (BUMEX) TAB PO SCH (12:56)
[2017-12-20] MEDS: warFARin 7.5 MG (COUMADIN) TAB PO SCH (17:09)
[2017-12-20 17:17] VITALS: BP 153/92
[2017-12-20] MEDS: TOLTERODINE LA 2 MG (DETROL LA) CAP PO SCH (21:30)
[2017-12-21 04:58] VITALS: BP 156/89
[2017-12-21] MEDS: HYDROcodone/APAP 5 MG/325 MG (LORTAB) TAB PO PRN ×4 (05:51→20:42)
[2017-12-21] MEDS: KCL 20 MEQ TAB (K-DUR) PO SCH (05:52)
[2017-12-21] MEDS: GABAPENTIN 300 MG (NEURONTIN) CAP PO SCH ×4 (08:51→20:36)
[2017-12-21] MEDS: MAGNESIUM OXIDE (MAG-OX)400 MG TAB PO SCH (08:51)
[2017-12-21] MEDS: predniSONE 5 MG TAB PO SCH (08:51)
[2017-12-21] MEDS: NEO/POLY/BAC (NEOSPORIN) OINT 15 GM TUBE TOP SCH (08:52)
[2017-12-21] MEDS: MINOCYCLINE HCL 100 MG PO SCH ×2 (08:52→20:34)
[2017-12-21] MEDS: PRAMIPEXOLE 0.125 MG (MIRAPEX) TABLET PO SCH ×2 (08:52→20:34)
[2017-12-21] MEDS: BUMETANIDE 1 MG (BUMEX) TAB PO SCH (09:03)
[2017-12-21 16:41] VITALS: BP 130/80
[2017-12-21] MEDS: warFARin 7.5 MG (COUMADIN) TAB PO SCH (17:48)
--- NOTE | 2017-12-21 19:39 | PM & R (SOAP) Progress Note ---
Subjective This was a face to face visit with the patient. Date Seen by Provider: Dec 21, 2017 Time Seen by Provider: 19:10 Subjective/Events-last exam Patient was seen in her room this evening Patient Min assist for transfers Review of Systems Musculoskeletal: leg pain Objective Physician Exam Last Set of Vital Signs Vital Signs Date Time Temp Pulse Resp B/P (MAP) Pulse Ox O2 Delivery O2 Flow Rate FiO2 12/21/17 16:41 97.7 89 16 130/80 (97) 95 Room Air Capillary Refill : Less Than 3 Seconds I&O Intake and Output 12/21/17 00:00 Intake Total 1640 ml Balance 1640 ml Intake Oral 1640 ml # Voids 11 # Bowel Movements 1 General: Alert, Oriented X3, Cooperative, No Acute Distress HEENT: Atraumatic, PERRLA, EOMI, Mucous Memb Moist/[place] Neck: Supple, No JVD Lungs: Clear to Auscultation Heart: Regular Rate Abdomen: Normal Bowel Sounds, Soft, No Tenderness Extremities: Other (Left calf tight but non tender Incision healing well Limited AROM left shoulder due to OA) Neuro: Sensation Intact, Other (Generalized weakaness more so left shoulder and left knee) Psych/Mental Status: Mental Status NL, Other (cognition intact) Results Lab Data Laboratory Tests 12/19/17 06:50: Prothrombin Time 23.7H, INR Comment 2.1H 12/20/17 05:29: Prothrombin Time 24.7H, INR Comment 2.2H Assessment/Plan Assessment and Plan Revision left TKR of OA s/p explantation of hardware for infection and now with revision after antibiotic beads factor V leiden factor chronically anticoagulated Onychomycosis s/p debridement DPM Hammer toes OA of the C and L spine s/p surgery remote OA of the left shoulder RLS OAB Diastolic CHF compensated Anemia HX of DVT/PE Valvular HT D Nocturnal Resp insuff on 02 at night Plan Continue PT/OT Team Conference 12-24-17 Co-Morbidities that are continuing to impact the rehab process: (include details ) MYLA BIRCH MD Dec 21, 2017 19:39
[2017-12-21] MEDS: TOLTERODINE LA 2 MG (DETROL LA) CAP PO SCH (20:38)
[2017-12-22 03:46] VITALS: BP 151/89
[2017-12-22] MEDS: HYDROcodone/APAP 5 MG/325 MG (LORTAB) TAB PO PRN ×4 (03:52→22:37)
[2017-12-22] MEDS: KCL 20 MEQ TAB (K-DUR) PO SCH (06:03)
[2017-12-22] MEDS: MAGNESIUM OXIDE (MAG-OX)400 MG TAB PO SCH (08:31)
[2017-12-22] MEDS: MINOCYCLINE HCL 100 MG PO SCH ×2 (08:32→20:44)
[2017-12-22] MEDS: predniSONE 5 MG TAB PO SCH (08:32)
[2017-12-22] MEDS: NEO/POLY/BAC (NEOSPORIN) OINT 15 GM TUBE TOP SCH (08:33)
[2017-12-22] MEDS: GABAPENTIN 300 MG (NEURONTIN) CAP PO SCH ×4 (08:33→20:45)
[2017-12-22] MEDS: PRAMIPEXOLE 0.125 MG (MIRAPEX) TABLET PO SCH ×2 (08:33→20:45)
--- NOTE | 2017-12-22 10:03 | PM & R (SOAP) Progress Note ---
Subjective This was a face to face visit with the patient. Date Seen by Provider: Dec 22, 2017 Time Seen by Provider: 08:00 Subjective/Events-last exam Patient was seen in her room this AM and in common area with PT Patient min assist for transfers with forward flexed posture Last INR 2.2 Time Identified: 10:00 Medication Intervention: Check INR Review of Systems Musculoskeletal: leg pain Objective Physician Exam Last Set of Vital Signs Vital Signs Date Time Temp Pulse Resp B/P (MAP) Pulse Ox O2 Delivery O2 Flow Rate FiO2 12/22/17 03:46 96.9 70 18 151/89 (109) 95 Nasal Cannula 2.00 Capillary Refill : Less Than 3 Seconds I&O Intake and Output 12/22/17 00:00 Intake Total 1660 ml Balance 1660 ml Intake Oral 1660 ml # Voids 8 # Bowel Movements 1 General: Alert, Oriented X3, Cooperative, No Acute Distress HEENT: Atraumatic, PERRLA, EOMI, Mucous Memb Moist/[place] Neck: Supple, No JVD Lungs: Clear to Auscultation Heart: Regular Rate Abdomen: Normal Bowel Sounds, Soft, No Tenderness Extremities: Other (Left calf tight but non tender Incision healing well Limited AROM left shoulder due to OA) Neuro: Sensation Intact, Other (Generalized weakaness more so left shoulder and left knee) Psych/Mental Status: Mental Status NL, Other (cognition intact) Results Lab Data Laboratory Tests 12/20/17 05:29: Prothrombin Time 24.7H, INR Comment 2.2H Assessment/Plan Assessment and Plan revision left TKR for oa s/p explantation of hardware for infection and now with revsion after antibiotic beads Factor V leiden factor chronically anticoagulated Onychomycosis s/p debridement DPM Hammer 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
--- NOTE | 2017-12-22 10:19 | Physical Therapy Daily Note ---
PT Daily Note-Current Subjective Pt was in bed upon arrival. Pt c/o Pn in L LE at 05/20. Pt agrees to PT. Pain Numeric Pain Scale: 4 Location: Left Location Body Site: Knee Pain Description: Ache Mental Status Patient Orientation: Normal For Age Transfers Functional [place] Measure 0=Not Assessed/NA 4=Minimal Assistance 1=Total Assistance 5=Supervision or Setup 2=Maximal Assistance 6=Modified [place] 3=Moderate Assistance 7=Complete IndependenceIRFPAI Quality Coding Scale 6 Independent with activity with or without an assistive device 5 Patient requires set up or clean up by helper. Patient completes activity by themselves 4 Supervision or touching assist (CGA). [place] provide cues , steadying assist 3 The helper provides less than half the effort to complete the activity 2 The helper provides more than half the effort to complete the activity 1 Dependent. The helper does all the effort to complete an activity 7 Patient refused to complete or attempt activity 9 The patient did not perform the activity before the current illness or injury 88 Not attempted due to Medical conditions or safety concerns Transfers (B, C, W/C) (FIM): 5 Scootin Rollin Supine to/from Sit: 5 Sit to/from Stand: 6 Weight Bearing Right Lower Extremity: Right Full Weight Bearing Left Lower Extremity: Left Weight Bearing/Tolerated Gait Training Does the Patient Walk?: Yes Distance (FIM): 3=150 ft Distance: 150x2 Gait Level of Assist: 4 Gait Persons Needed: 1 Exercises Supine Ex: Ankle pumps, Quad Set, Heel Slides, Short Arc Quads, Scooting Supine Reps: 12 Treatments Pt ambulated from room to the Therapy Gym where ED TECH performed very gentle friction massage on incision line on the superior anterior aspect of L knee and on the posterior fossa of the L knee. During massage the Pt also performed some stretching and supine EX to promote flexion and extension of L knee. Pt ambulated back to room after Rx and was assisted to her recliner with all needs met. Assessment Pt L knee not able to reach full extension, but improved after friction massage. Pt lacks approximately 15 degrees of extension. Pt also reports decreased tightness in quads and hamstrings, and increased ROM. PT Short Term Goals Short Term Goals Time Frame: Dec 23, 2017 Transfers (B,C,W/C) (FIM): 4 Gait (FIM): 2 Gait Distance Comment: 60' Gait Level of Assist: 4 Gait Assistive Device: FWW Wheelchair Distance: 75' PT Care Home Goals Care Home Goals PT Care Home Goals Time Frame: Jan 06, 2018 Transfers (B,C,W/C) (FIM): 4 Sit to Lying (QC): 3 Lying-Sitting on Side/Bed(QC): 4 Sit to Stand (QC): 4 Rollin Roll Left to Right (QC): 4 Chair/Myj-jg-Gzeou Xfer(QC): 4 Car Transfer (QC): 4 Gait (FIM): 2 Distance: 100' Walk 10 feet (QC): 4 Walk 10ft-Uneven Surface(QC): 4 Walk 50ft with 2 Turns (QC): 4 Gait Level of Assist: 5 Gait Assistive Device: FWW PT Plan Problem List Problem List: Activity Tolerance, Functional Strength, Safety, Gait Treatment/Plan Treatment Plan: Continue Plan of Care Treatment Plan: Bed Mobility, Concurrent Therapy, Education, Functional Activity Ricardo, Functional Strength, Group Therapy, Gait, Safety, Therapeutic Exercise, Transfers Treatment Duration: Jan 06, 2018 Frequency: At least 5 of 7 days/Wk (IRF) Estimated Hrs Per Day: 1.5 hours per day Patient and/or Family Agrees t: Yes Safety Risks/Education Patient Education: Gait Training, Transfer Techniques, Correct Positioning, Disease Process, Safety Issues Teaching Recipient: Patient Teaching Methods: Demonstration, Discussion Response to Teaching: Verbalize Understanding, Return Demonstration Time/GCodes Time In: 900 Time Out: 1000 Total Billed Treatment Time: 60 Total Billed Treatment 1, EX x2 (30m), GT x2 (30m) G Codes Necessary: GORDON Ernst ED TECH Dec 22, 2017 10:19
[2017-12-22] MEDS: BUMETANIDE 1 MG (BUMEX) TAB PO SCH (12:15)
--- NOTE | 2017-12-22 12:49 | Occupational Ther Daily Note ---
OT Current Status-Daily Note Subjective Pt stated that she had a good weekend. She watched football and [place] movies all weekend. Appearance Pt in recliner, alert and ready to work with OT. Mental Status/Objective Patient Orientation: Person, Place, Time, Situation Functional [place] Measure 0=Not Assessed/NA 4=Minimal Assistance 1=Total Assistance 5=Supervision or Setup 2=Maximal Assistance 6=Modified [place] 3=Moderate Assistance 7=Complete [place] ADL-Treatment Functional [place] Measure 0=Not Assessed/NA 4=Minimal Assistance 1=Total Assistance 5=Supervision or Setup 2=Maximal Assistance 6=Modified [place] 3=Moderate Assistance 7=Complete IndependenceIRFPAI Quality Coding Scale 6 Independent with activity with or without an assistive device 5 Patient requires set up or clean up by helper. Patient completes activity by themselves 4 Supervision or touching assist (CGA). [place] provide cues , steadying assist 3 The helper provides less than half the effort to complete the activity 2 The helper provides more than half the effort to complete the activity 1 Dependent. The helper does all the effort to complete an activity 7 Patient refused to complete or attempt activity 9 The patient did not perform the activity before the current illness or injury 88 Not attempted due to Medical conditions or safety concerns Grooming (FIM): 6 (Pt performed combing hair with use of long handled brush independently. Pt able to brush teeth independently. Pt sat in chair at sink to perform grooming tasks. ) Oral Hygiene (QC): 6 Bathing (FIM): 4 (Pt able to perform bathing tasks washing all parts except buttocks. OT provided min assist to wash rear sanjuana area. Pt used grab bars and shower bench with setup, SBA. ) Shower/Bathe Self (QC): 4 Upper Body (FIM): 3 (Pt able to doff shirt while sitting on shower bench. Pt needs assistance donning bra. Pt able to don shirt. Pt requires setup. ) Upper Body Dressing (QC): 3 Lower Body Dressing (FIM): 3 (Pt able to doff pants with assistance of OT with pulling pants down over hips while standing holding grab bars. Pt able to doff shoes with MIN A. Pt able to don undergarments and pants with use of AE, grabber , and OT provided assistance of pulling up garments over hips while standing using grab bars. Pt able to don shoes with assistance of setup and strapping the straps. ) Lower Body Dressing (QC): 3 On/Off Footwear (QC): 3 Transfers (B, C, W/C) (FIM): 4 (Pt able to transfer from sit to stand to walker with CGA. Pt able to transfer from from stand to sit to wc with CGA. Pt able to transfer from wc to recliner with CGA. ) Shower Transfer(FIM): 4 (Pt able to transfer from walker to shower bench with CGA and use of grab bars.) Pt participated in showering and grooming tasks in Pt's bathroom. Pt performed tasks in 45 minutes compared to same tasks last week taking one hour. Other Treatment Pt ambulated with walker towards therapy gym with CGA. Pt tired and OT helped Pt transfer from walker to wc with CGA. Pt propelled back to room. Pt transferred from wc to recliner with CGA. All needs met. Education OT Patient Education: Energy conservation, Exercise program, Modified ADL techniques, Progress toward Goal/Update tx plan, Purpose of tx/functional activities, Rehab process, Transfer techniques, Use of adapted equipment Teaching Recipient: Patient Teaching Methods: Demonstration, Discussion Response to Teaching: Verbalize Understanding, Return Demonstration OT Short Term Goals Short Term Goals Time Frame: Dec 23, 2017 Grooming(FIM): 5 Lower Body Dressing(FIM): 4 Transfers (B,C,W/C) (FIM): 4 Toilet/Commode Transfer(FIM): 4 Additional Short Term Goals: 1-Demonstrate ADL Tasks, 2-Verbalize Understanding , 3-ImproveStrength/Ricardo 1=Demonstrate adherence to instructed precautions during ADL tasks. 2=Patient will verbalize/demonstrate understanding of assistive devices/ modifications for ADL. 3=Patient will improve strength/tolerance for activity to enable patient to perform ADL's. OT Shift Boss Goals Senior Care Goals Time Frame: Jan 06, 2018 Eating (FIM): 6 Eating (QC): 6 Groomin Oral Hygiene (QC): 6 Bathing(FIM): 4 Shower/Bathe Self (QC): 4 Upper Body Dressing(FIM): 5 Upper Body Dressing (QC): 5 Lower Body Dressing(FIM): 4 (CGA) Lower Body Dressing (QC): 4 On/Off Footwear (QC): 5 Toileting(FIM): 5 Toileting Hygiene (QC): 5 Toilet/Commode Transfer(FIM): 5 Toilet/Commode Transfer (QC): 5 Shower Transfer(FIM): 4 Additional Goals: 1-Demonstrate ADL Tasks, 2-Verbalize Understanding, 3- ImproveStrength/Ricardo 1=Demonstrate adherence to instructed precautions during ADL tasks. 2=Patient will verbalize/demonstrate understanding of assistive devices/ modifications for ADL. 3=Patient will improve strength/tolerance for activity to enable patient to perform ADL's. OT Education/Plan Problem List/Assessment Assessment: Decreased Activ Tolerance, Decreased UE Strength, Dependent Transfers, Impaired Coordination, Impaired I ADL's, Impaired Self-Care Skills, Restricted Funct UE ROM Discharge Recommendations Plan/Recommendations: Continue POC Therapy D/C Recommendations: Home w/ Family Support, Occupational Therapy Home Care Treatment Plan/Plan of Care Treatment,Training & Education: Yes Patient would benefit from OT for education, treatment and training to promote independence in ADL's, mobility, safety and/or upper extremity function for ADL' s. Plan of Care: ADL Retraining, Functional Mobility, Group Exercise/Act as Ind, UE Funct Exercise/Act Treatment Duration: Jan 06, 2018 Frequency: At least 5 of 7 days/Wk (IRF) Estimated Hrs Per Day: 1.5 hours per day Agreement: Yes Rehab Potential: Fair Time/GCodes Start Time: 10:15 Stop Time: 11:15 Total Time Billed (hr/min): 60 Billed Treatment Time 1, ADL x 45 minutes, EX x 15 minutes. SHAKIRA DOE OT Dec 22, 2017 12:49
--- NOTE | 2017-12-22 14:01 | Physical Therapy Daily Note ---
PT Daily Note-Current Subjective Pt. states she is so tired and looks forward to resting after her Rx. Agrees to gait and exercise Pain Numeric Pain Scale: 3 Location: Right Location Body Site: Knee Pain Description: Ache Mental Status Patient Orientation: Normal For Age Transfers Functional [place] Measure 0=Not Assessed/NA 4=Minimal Assistance 1=Total Assistance 5=Supervision or Setup 2=Maximal Assistance 6=Modified [place] 3=Moderate Assistance 7=Complete IndependenceIRFPAI Quality Coding Scale 6 Independent with activity with or without an assistive device 5 Patient requires set up or clean up by helper. Patient completes activity by themselves 4 Supervision or touching assist (CGA). [place] provide cues , steadying assist 3 The helper provides less than half the effort to complete the activity 2 The helper provides more than half the effort to complete the activity 1 Dependent. The helper does all the effort to complete an activity 7 Patient refused to complete or attempt activity 9 The patient did not perform the activity before the current illness or injury 88 Not attempted due to Medical conditions or safety concerns sit to stand SBA x 6-7 trials Weight Bearing Right Lower Extremity: Right Full Weight Bearing Left Lower Extremity: Left Weight Bearing/Tolerated Gait Training Gait Assistive Device: FWW 150ftx 1, 50 ft CGA slow, flexed over walker and heavy weight bearing on FWW, Wheelchair Training Type of Wheelchair: Manual 150ft slow, careful use of UEs Exercises NuStep Minutes: 12 NuStep Workload: 3 Treatments nustep with emphasis on ext with hold and flexion with hold Assessment Current Status: Good Progress fatigued but making slow steady progress, gives full effort PT Short Term Goals Short Term Goals Time Frame: Dec 23, 2017 Transfers (B,C,W/C) (FIM): 4 Gait (FIM): 2 Gait Distance Comment: 60' Gait Level of Assist: 4 Gait Assistive Device: FWW Wheelchair Distance: 75' PT Jail Goals Powder Shoveler Goals PT Powder Shoveler Goals Time Frame: Jan 06, 2018 Transfers (B,C,W/C) (FIM): 4 Sit to Lying (QC): 3 Lying-Sitting on Side/Bed(QC): 4 Sit to Stand (QC): 4 Rollin Roll Left to Right (QC): 4 Chair/Blh-ym-Qgqnv Xfer(QC): 4 Car Transfer (QC): 4 Gait (FIM): 2 Distance: 100' Walk 10 feet (QC): 4 Walk 10ft-Uneven Surface(QC): 4 Walk 50ft with 2 Turns (QC): 4 Gait Level of Assist: 5 Gait Assistive Device: FWW PT Plan Treatment/Plan Treatment Plan: Continue Plan of Care Treatment Plan: Bed Mobility, Concurrent Therapy, Education, Functional Activity Ricardo, Functional Strength, Group Therapy, Gait, Safety, Therapeutic Exercise, Transfers Treatment Duration: Jan 06, 2018 Frequency: At least 5 of 7 days/Wk (IRF) Estimated Hrs Per Day: 1.5 hours per day Patient and/or Family Agrees t: Yes Safety Risks/Education Patient Education: Gait Training, Transfer Techniques, Correct Positioning, W/ C Management, Disease Process, Safety Issues Teaching Recipient: Patient Teaching Methods: Demonstration, Discussion Response to Teaching: Verbalize Understanding, Return Demonstration, Reinforcement Needed Time/GCodes Time In: 1330 Time Out: 1400 Total Billed Treatment Time: 30 Total Billed Treatment 1,GT15m,EX15m G Codes Necessary: GORDON Ernst BONDING MACHINE TENDER Dec 22, 2017 14:00
--- NOTE | 2017-12-22 14:46 | Occupational Ther Daily Note ---
OT Current Status-Daily Note Subjective Pt stated that she had a good lunch and thinks she will order soup for dinner. Appearance Pt sitting in recliner and willing to work with OT. Mental Status/Objective Patient Orientation: Person, Place, Time, Situation Functional [place] Measure 0=Not Assessed/NA 4=Minimal Assistance 1=Total Assistance 5=Supervision or Setup 2=Maximal Assistance 6=Modified [place] 3=Moderate Assistance 7=Complete [place] ADL-Treatment Functional [place] Measure 0=Not Assessed/NA 4=Minimal Assistance 1=Total Assistance 5=Supervision or Setup 2=Maximal Assistance 6=Modified [place] 3=Moderate Assistance 7=Complete IndependenceIRFPAI Quality Coding Scale 6 Independent with activity with or without an assistive device 5 Patient requires set up or clean up by helper. Patient completes activity by themselves 4 Supervision or touching assist (CGA). [place] provide cues , steadying assist 3 The helper provides less than half the effort to complete the activity 2 The helper provides more than half the effort to complete the activity 1 Dependent. The helper does all the effort to complete an activity 7 Patient refused to complete or attempt activity 9 The patient did not perform the activity before the current illness or injury 88 Not attempted due to Medical conditions or safety concerns Transfers (B, C, W/C) (FIM): 4 (Pt transferred from sit to stand to walker with CGA. Ambulated to therapy gym with CGA. Pt transferred from stand with walker to sit in chair with CGA. After therapy session, Pt transferred from sit to wc with CGA and extended time to transfer. Returned to room with all needs met.) Other Treatment Pt ambulated to therapy gym with CGA. Pt participated in therapy clips activity x 2, for bilateral AROM, coordination, and hand strengthening. Pt participated in a beading activity of stringing 1" wooden beads onto a string approximately 18" long. Pt. didn't feel as if she could ambulate back to room. OT provided her wc. Pt propelled 1/[address] to her room, OT pushed the remainder. Pt asked to be left in her wc due to having PT directly after. All needs met. PT entered room as OT was leaving. Education OT Patient Education: Exercise program, Progress toward Goal/Update tx plan, Purpose of tx/functional activities, Rehab process, Transfer techniques Teaching Recipient: Patient Teaching Methods: Demonstration, Discussion Response to Teaching: Verbalize Understanding, Return Demonstration OT Short Term Goals Short Term Goals Time Frame: Dec 23, 2017 Grooming(FIM): 5 Lower Body Dressing(FIM): 4 Transfers (B,C,W/C) (FIM): 4 Toilet/Commode Transfer(FIM): 4 Additional Short Term Goals: 1-Demonstrate ADL Tasks, 2-Verbalize Understanding , 3-ImproveStrength/Ricardo 1=Demonstrate adherence to instructed precautions during ADL tasks. 2=Patient will verbalize/demonstrate understanding of assistive devices/ modifications for ADL. 3=Patient will improve strength/tolerance for activity to enable patient to perform ADL's. OT Program Admin Goals Long-Term Goals Time Frame: Jan 06, 2018 Eating (FIM): 6 Eating (QC): 6 Groomin Oral Hygiene (QC): 6 Bathing(FIM): 4 Shower/Bathe Self (QC): 4 Upper Body Dressing(FIM): 5 Upper Body Dressing (QC): 5 Lower Body Dressing(FIM): 4 (CGA) Lower Body Dressing (QC): 4 On/Off Footwear (QC): 5 Toileting(FIM): 5 Toileting Hygiene (QC): 5 Toilet/Commode Transfer(FIM): 5 Toilet/Commode Transfer (QC): 5 Shower Transfer(FIM): 4 Additional Goals: 1-Demonstrate ADL Tasks, 2-Verbalize Understanding, 3- ImproveStrength/Ricardo 1=Demonstrate adherence to instructed precautions during ADL tasks. 2=Patient will verbalize/demonstrate understanding of assistive devices/ modifications for ADL. 3=Patient will improve strength/tolerance for activity to enable patient to perform ADL's. OT Education/Plan Problem List/Assessment Assessment: Decreased Activ Tolerance, Decreased UE Strength, Impaired Coordination, Impaired I ADL's, Impaired Self-Care Skills, Restricted Funct UE ROM Discharge Recommendations Plan/Recommendations: Continue POC Therapy D/C Recommendations: Home w/ Family Support, Occupational Therapy Home Care Treatment Plan/Plan of Care Treatment,Training & Education: Yes Patient would benefit from OT for education, treatment and training to promote independence in ADL's, mobility, safety and/or upper extremity function for ADL' s. Plan of Care: ADL Retraining, Functional Mobility, Group Exercise/Act as Ind, UE Funct Exercise/Act Treatment Duration: Jan 06, 2018 Frequency: At least 5 of 7 days/Wk (IRF) Estimated Hrs Per Day: 1.5 hours per day Agreement: Yes Rehab Potential: Fair Time/GCodes Start Time: 13:00 Stop Time: 13:30 Total Time Billed (hr/min): 30 Billed Treatment Time 1, FA x 30 minutes SHAKIRA DOE OT Dec 22, 2017 14:46
[2017-12-22] MEDS: warFARin 7.5 MG (COUMADIN) TAB PO SCH (17:14)
[2017-12-22 18:00] VITALS: BP 145/78
[2017-12-22] MEDS: TOLTERODINE LA 2 MG (DETROL LA) CAP PO SCH (20:45)
[2017-12-23] MEDS: KCL 20 MEQ TAB (K-DUR) PO SCH (06:29)
[2017-12-23] MEDS: HYDROcodone/APAP 5 MG/325 MG (LORTAB) TAB PO PRN ×3 (06:30→23:15)
[2017-12-23 06:49] VITALS: BP 127/76
[2017-12-23] MEDS: GABAPENTIN 300 MG (NEURONTIN) CAP PO SCH ×4 (07:52→20:35)
[2017-12-23] MEDS: PRAMIPEXOLE 0.125 MG (MIRAPEX) TABLET PO SCH ×2 (07:52→20:35)
[2017-12-23] MEDS: predniSONE 5 MG TAB PO SCH (07:52)
[2017-12-23] MEDS: MAGNESIUM OXIDE (MAG-OX)400 MG TAB PO SCH (07:52)
[2017-12-23] MEDS: MINOCYCLINE HCL 100 MG PO SCH ×2 (07:52→20:34)
[2017-12-23] MEDS: NEO/POLY/BAC (NEOSPORIN) OINT 15 GM TUBE TOP SCH (07:53)
--- NOTE | 2017-12-23 09:39 | Physical Therapy Daily Note ---
PT Daily Note-Current Subjective Pt sitting in recliner upon arrival. Pt agrees to PT. Pain Numeric Pain Scale: 5-Moderate Pain Location: Left Location Body Site: Knee Pain Description: Ache, Tightness Mental Status Patient Orientation: Person, Place, Time, Situation Transfers Functional [place] Measure 0=Not Assessed/NA 4=Minimal Assistance 1=Total Assistance 5=Supervision or Setup 2=Maximal Assistance 6=Modified [place] 3=Moderate Assistance 7=Complete IndependenceIRFPAI Quality Coding Scale 6 Independent with activity with or without an assistive device 5 Patient requires set up or clean up by helper. Patient completes activity by themselves 4 Supervision or touching assist (CGA). [place] provide cues , steadying assist 3 The helper provides less than half the effort to complete the activity 2 The helper provides more than half the effort to complete the activity 1 Dependent. The helper does all the effort to complete an activity 7 Patient refused to complete or attempt activity 9 The patient did not perform the activity before the current illness or injury 88 Not attempted due to Medical conditions or safety concerns Scootin Rollin Supine to/from Sit: 4 Sit to/from Stand: 5 Sit to Lying (QC): 4 Sit to Stand (QC): 5 Weight Bearing Right Lower Extremity: Right Full Weight Bearing Left Lower Extremity: Left Weight Bearing/Tolerated Gait Training Does the Patient Walk?: Yes Distance (FIM): 3=150 ft Distance: 150' Walk 10 feet (QC): 4 Walk 50 ft with 2 Turns(QC): 4 Walk 150 ft (QC): 4 Gait Level of Assist: 4 Gait Persons Needed: 1 Gait Assistive Device: FWW Pt walks with slight antalgic gait but better after massage to L knee's scar tissue. Pt fatigues by end of walk. Exercises Supine Ex: Ankle pumps, Quad Set, Glut sets, Short Arc Quads, Straight leg raise, Hip abd/add Supine Reps: 20 Treatments Pt transfers from recliner using FWW at SBA. Pt ambulates in hallway using FWW at CGA (as pt fatigues). INCLUSION TEACHER massages scar tissue at incision site of LLE as well behind knee. Pt then completes Supine Ex on Therapy mat with a couple short rest breaks. Pt ambulates in hallway before returning to room to use restroom. Pt has all needs met at end of tx. OT arrives at end of tx. Assessment Current Status: Good Progress Pt has improved gait to a more natural gait, improved L knee extension. PT Short Term Goals Short Term Goals Time Frame: Dec 23, 2017 Transfers (B,C,W/C) (FIM): 4 Gait (FIM): 2 Gait Distance Comment: 60' Gait Level of Assist: 4 Gait Assistive Device: FWW Wheelchair Distance: 75' PT [facility] Goals Director Global Goals PT Director Global Goals Time Frame: Jan 06, 2018 Transfers (B,C,W/C) (FIM): 4 Sit to Lying (QC): 3 Lying-Sitting on Side/Bed(QC): 4 Sit to Stand (QC): 4 Rollin Roll Left to Right (QC): 4 Chair/Xbl-io-Gpibr Xfer(QC): 4 Car Transfer (QC): 4 Gait (FIM): 2 Distance: 100' Walk 10 feet (QC): 4 Walk 10ft-Uneven Surface(QC): 4 Walk 50ft with 2 Turns (QC): 4 Gait Level of Assist: 5 Gait Assistive Device: FWW PT Plan Problem List Problem List: Activity Tolerance, Functional Strength, Gait, Transfer Treatment/Plan Treatment Plan: Continue Plan of Care Treatment Plan: Bed Mobility, Concurrent Therapy, Education, Functional Activity Ricardo, Functional Strength, Group Therapy, Gait, Safety, Therapeutic Exercise, Transfers Treatment Duration: Jan 06, 2018 Frequency: At least 5 of 7 days/Wk (IRF) Estimated Hrs Per Day: 1.5 hours per day Patient and/or Family Agrees t: Yes Safety Risks/Education Patient Education: Gait Training, Transfer Techniques, Correct Positioning, Safety Issues Teaching Recipient: Patient Teaching Methods: Discussion Response to Teaching: Verbalize Understanding Time/GCodes Time In: 815 Time Out: 915 Total Billed Treatment Time: 60 Total Billed Treatment 1, GT (15m), FA (20m) & EX x2 (25m) G Codes Necessary: LUIS Mckinney INCLUSION TEACHER Dec 23, 2017 09:39
--- NOTE | 2017-12-23 10:46 | PM & R (SOAP) Progress Note ---
Subjective This was a face to face visit with the patient. Date Seen by Provider: Dec 23, 2017 Time Seen by Provider: 10:40 Subjective/Events-last exam Patient was seen in her room this AM Patient Min assist for transfers Last INR 2.2 Will recheck Date Identified: Dec 23, 2017 Time Identified: 10:40 Medication Intervention: will recheck INR Review of Systems Musculoskeletal: leg pain Objective Physician Exam Last Set of Vital Signs Vital Signs Date Time Temp Pulse Resp B/P (MAP) Pulse Ox O2 Delivery O2 Flow Rate FiO2 12/23/17 08:51 Room Air 12/23/17 06:49 98.0 78 18 127/76 (93) 96 12/22/17 03:46 2.00 Capillary Refill : Less Than 3 Seconds I&O Intake and Output 12/23/17 00:00 Intake Total 1580 ml Balance 1580 ml Intake Oral 1580 ml # Voids 7 # Bowel Movements 3 General: Alert, Oriented X3, Cooperative, No Acute Distress HEENT: Atraumatic, PERRLA, EOMI, Mucous Memb Moist/[place] Neck: Supple, No JVD Lungs: Clear to Auscultation Heart: Regular Rate Abdomen: Normal Bowel Sounds, Soft, No Tenderness Extremities: Other (Left calf tight but non tender Incision healing well Limited AROM left shoulder due to OA) Neuro: Sensation Intact, Other (Generalized weakaness more so left shoulder and left knee) Psych/Mental Status: Mental Status NL, Other (cognition intact) Assessment/Plan Assessment and Plan Revision left TKR for OA s/p explanatation of hardware for infection and now with revsion after antibiotic beads Factor V Leiden factor chronically anticoagulated Onychomycosis s/p debridement Hammer toes 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
--- NOTE | 2017-12-23 11:00 | Occupational Ther Daily Note ---
OT Current Status-Daily Note Subjective Pt stated that she was looking forward to our cooking activity later this week. Appearance Pt was just returning from PT with PT therapist still in room. Pt was ready to shower with OT. Mental Status/Objective Patient Orientation: Person, Place, Time, Situation Functional [place] Measure 0=Not Assessed/NA 4=Minimal Assistance 1=Total Assistance 5=Supervision or Setup 2=Maximal Assistance 6=Modified [place] 3=Moderate Assistance 7=Complete [place] ADL-Treatment Functional [place] Measure 0=Not Assessed/NA 4=Minimal Assistance 1=Total Assistance 5=Supervision or Setup 2=Maximal Assistance 6=Modified [place] 3=Moderate Assistance 7=Complete IndependenceIRFPAI Quality Coding Scale 6 Independent with activity with or without an assistive device 5 Patient requires set up or clean up by helper. Patient completes activity by themselves 4 Supervision or touching assist (CGA). [place] provide cues , steadying assist 3 The helper provides less than half the effort to complete the activity 2 The helper provides more than half the effort to complete the activity 1 Dependent. The helper does all the effort to complete an activity 7 Patient refused to complete or attempt activity 9 The patient did not perform the activity before the current illness or injury 88 Not attempted due to Medical conditions or safety concerns Grooming (FIM): 6 (AE - long handled hairbrush. Sit in chair at sink. ) Bathing (FIM): 4 (Setup. Requires assist to wash buttocks. ) Upper Body (FIM): 3 (Requires assist with setup, donning bra, pulling down back of shirt. ) Lower Body Dressing (FIM): 3 (Doffed pants using grab bars, required assist with pullling pants down over hips. Requires use of AE - knowledge manager with treading both pant legs. However, unable to fully put feet into legs of pants and required assist with this and pulling up pants over hips and in the back. ) Toileting (FIM): 2 (Requires assistance in pulling down pants over hips. Requires assistance with pulling pants up over hips. Pt. is able to cleanse self seated on toilet.) Transfers (B, C, W/C) (FIM): 4 (CGA during all transfers. ) Toilet/Commode Transfer (FIM): 4 (CGA) Shower Transfer(FIM): 4 (CGA) Pt. was already standing at walker when OT entered room. Pt ambulated to shower with CGA. Pt transferred from walker stand to sit on shower bench with CGA. Pt was able to doff shirt MOD I while sitting on shower bench. Pt able to doff pants and undergarments while standing utilizing grab bars with assistance for pulling pants down over hips. Pt participated in showering with setup. Pt able to wash all body parts, except buttocks. Pt used grab bars to stand while OT provided assistance to cleanse buttocks. Pt used shower bench, hand held shower head, and long handled sponge. Pt required assistance with donning her bra and pulling down the back of her shirt. Pt used knowledge manager to don undergarments and pants, needing assistance to thread legs in pants. Pt used grab bars to stand, OT provided assistance to pull undergarments and pants over hips in and back. Pt able to don shoes. Pt required MOD A in transfer from shower bench to stand at walker. Pt ambulated to chair at sink and transferred from stand at walker to sit at chair with CGA. Pt able to brush teeth MOD I. Pt used long handled hair brush. Pt transferred from sit at chair to stand at walker with CGA, then to with CGA. Pt propelled 75% of the way to therapy gym with SBA. Pt participated in core strengthening exercise and static balance while holding bar out in front of her and holding the bar for length of time she could tolerate (approximately 20 seconds) then rest.Pt participated in this activity approximately 10 times with rest breaks inbetween. Pt propelled back to room. Pt transferred from sit to stand at walker with CGA, to sit in recliner with SBA. All needs were met. Education OT Patient Education: Energy conservation, Exercise program, Modified ADL techniques, Progress toward Goal/Update tx plan, Purpose of tx/functional activities, Rehab process, Transfer techniques, W/C management Teaching Recipient: Patient Teaching Methods: Demonstration, Discussion Response to Teaching: Verbalize Understanding, Return Demonstration OT Short Term Goals Short Term Goals Time Frame: Dec 23, 2017 Grooming(FIM): 5 Lower Body Dressing(FIM): 4 Transfers (B,C,W/C) (FIM): 4 Toilet/Commode Transfer(FIM): 4 Additional Short Term Goals: 1-Demonstrate ADL Tasks, 2-Verbalize Understanding , 3-ImproveStrength/Ricardo 1=Demonstrate adherence to instructed precautions during ADL tasks. 2=Patient will verbalize/demonstrate understanding of assistive devices/ modifications for ADL. 3=Patient will improve strength/tolerance for activity to enable patient to perform ADL's. OT Speech Language Therapist Goals Long-Term Goals Time Frame: Jan 06, 2018 Eating (FIM): 6 Eating (QC): 6 Groomin Oral Hygiene (QC): 6 Bathing(FIM): 4 Shower/Bathe Self (QC): 4 Upper Body Dressing(FIM): 5 Upper Body Dressing (QC): 5 Lower Body Dressing(FIM): 4 (CGA) Lower Body Dressing (QC): 4 On/Off Footwear (QC): 5 Toileting(FIM): 5 Toileting Hygiene (QC): 5 Toilet/Commode Transfer(FIM): 5 Toilet/Commode Transfer (QC): 5 Shower Transfer(FIM): 4 Additional Goals: 1-Demonstrate ADL Tasks, 2-Verbalize Understanding, 3- ImproveStrength/Ricardo 1=Demonstrate adherence to instructed precautions during ADL tasks. 2=Patient will verbalize/demonstrate understanding of assistive devices/ modifications for ADL. 3=Patient will improve strength/tolerance for activity to enable patient to perform ADL's. OT Education/Plan Problem List/Assessment Assessment: Decreased Activ Tolerance, Decreased UE Strength, Impaired Coordination, Impaired Funct Balance, Impaired I ADL's, Impaired Self-Care Skills, Restricted Funct UE ROM Discharge Recommendations Plan/Recommendations: Continue POC Therapy D/C Recommendations: Home w/ Family Support, Occupational Therapy Home Care Treatment Plan/Plan of Care Treatment,Training & Education: Yes Patient would benefit from OT for education, treatment and training to promote independence in ADL's, mobility, safety and/or upper extremity function for ADL' s. Plan of Care: ADL Retraining, Functional Mobility, Group Exercise/Act as Ind, UE Funct Exercise/Act Treatment Duration: Jan 06, 2018 Frequency: At least 5 of 7 days/Wk (IRF) Estimated Hrs Per Day: 1.5 hours per day Agreement: Yes Rehab Potential: Fair Time/GCodes Start Time: 09:15 Stop Time: 10:15 Total Time Billed (hr/min): 60 Billed Treatment Time 1, ADL x 45 minutes, EX x 15 minutes. SHAKIRA DOE OT Dec 23, 2017 11:00
[2017-12-23] MEDS: BUMETANIDE 1 MG (BUMEX) TAB PO SCH (13:30)
--- NOTE | 2017-12-23 13:46 | Occupational Ther Daily Note ---
OT Current Status-Daily Note Subjective Pt stated towards end of therapy session that she can certainly tell she has been working her hands. Appearance Pt in recliner, willing to work with OT. Mental Status/Objective Patient Orientation: Person, Place, Time, Situation Functional [place] Measure 0=Not Assessed/NA 4=Minimal Assistance 1=Total Assistance 5=Supervision or Setup 2=Maximal Assistance 6=Modified [place] 3=Moderate Assistance 7=Complete [place] ADL-Treatment Functional [place] Measure 0=Not Assessed/NA 4=Minimal Assistance 1=Total Assistance 5=Supervision or Setup 2=Maximal Assistance 6=Modified [place] 3=Moderate Assistance 7=Complete IndependenceIRFPAI Quality Coding Scale 6 Independent with activity with or without an assistive device 5 Patient requires set up or clean up by helper. Patient completes activity by themselves 4 Supervision or touching assist (CGA). [place] provide cues , steadying assist 3 The helper provides less than half the effort to complete the activity 2 The helper provides more than half the effort to complete the activity 1 Dependent. The helper does all the effort to complete an activity 7 Patient refused to complete or attempt activity 9 The patient did not perform the activity before the current illness or injury 88 Not attempted due to Medical conditions or safety concerns Transfers (B, C, W/C) (FIM): 3 (CGA) Other Treatment Pt transferred from sit from recliner to stand at [facility] with CGA. Pt then transferred from [facility] stand to sit in with CGA. Pt propelled to therapy gym. Pt participated in nuts and bolts activity to increase hand coordination and fine motor skills. Pt participated in stringing 1" beads onto a 18" string, approx 20 beads, to increase hand eye coordination and fine motor skills. Pt participated in stringing small beads onto string, managing about 20 small beads for fine motor skills and hand eye coordination. Pt alternated hands during activities. Pt propelled from therapy gym to room. Pt transferred from sit to stand at [facility] with CGA. Pt then transferred from W stand to sit in recliner with SBA. All needs met. Education OT Patient Education: Exercise program, Modified ADL techniques, Progress toward Goal/Update tx plan, Purpose of tx/functional activities, Rehab process, Transfer techniques, W/C management Teaching Recipient: Patient Teaching Methods: Demonstration, Discussion Response to Teaching: Verbalize Understanding, Return Demonstration OT Short Term Goals Short Term Goals Time Frame: Dec 23, 2017 Grooming(FIM): 5 Lower Body Dressing(FIM): 4 Transfers (B,C,W/C) (FIM): 4 Toilet/Commode Transfer(FIM): 4 Additional Short Term Goals: 1-Demonstrate ADL Tasks, 2-Verbalize Understanding , 3-ImproveStrength/Ricardo 1=Demonstrate adherence to instructed precautions during ADL tasks. 2=Patient will verbalize/demonstrate understanding of assistive devices/ modifications for ADL. 3=Patient will improve strength/tolerance for activity to enable patient to perform ADL's. OT [facility] Goals Cataloging Assistant Goals Time Frame: Jan 06, 2018 Eating (FIM): 6 Eating (QC): 6 Groomin Oral Hygiene (QC): 6 Bathing(FIM): 4 Shower/Bathe Self (QC): 4 Upper Body Dressing(FIM): 5 Upper Body Dressing (QC): 5 Lower Body Dressing(FIM): 4 (CGA) Lower Body Dressing (QC): 4 On/Off Footwear (QC): 5 Toileting(FIM): 5 Toileting Hygiene (QC): 5 Toilet/Commode Transfer(FIM): 5 Toilet/Commode Transfer (QC): 5 Shower Transfer(FIM): 4 Additional Goals: 1-Demonstrate ADL Tasks, 2-Verbalize Understanding, 3- ImproveStrength/Ricardo 1=Demonstrate adherence to instructed precautions during ADL tasks. 2=Patient will verbalize/demonstrate understanding of assistive devices/ modifications for ADL. 3=Patient will improve strength/tolerance for activity to enable patient to perform ADL's. OT Education/Plan Problem List/Assessment Assessment: Decreased Activ Tolerance, Decreased UE Strength, Impaired Coordination, Impaired Funct Balance, Impaired I ADL's, Impaired Self-Care Skills, Restricted Funct UE ROM Discharge Recommendations Plan/Recommendations: Continue POC Therapy D/C Recommendations: Home w/ Family Support, Occupational Therapy Home Care Treatment Plan/Plan of Care Treatment,Training & Education: Yes Patient would benefit from OT for education, treatment and training to promote independence in ADL's, mobility, safety and/or upper extremity function for ADL' s. Plan of Care: ADL Retraining, Functional Mobility, Group Exercise/Act as Ind, UE Funct Exercise/Act Treatment Duration: Jan 06, 2018 Frequency: At least 5 of 7 days/Wk (IRF) Estimated Hrs Per Day: 1.5 hours per day Agreement: Yes Rehab Potential: Fair Time/GCodes Start Time: 11:25 Stop Time: 11:55 Total Time Billed (hr/min): 30 Billed Treatment Time 1, FA x 30 minutes. SHAKIRA DOE OT Dec 23, 2017 13:46
--- NOTE | 2017-12-23 15:39 | Physical Therapy Daily Note ---
PT Daily Note-Current Subjective Pt was in recliner upon arrival. Pt agreed to Pt. Mental Status Patient Orientation: Normal For Age Transfers Functional [place] Measure 0=Not Assessed/NA 4=Minimal Assistance 1=Total Assistance 5=Supervision or Setup 2=Maximal Assistance 6=Modified [place] 3=Moderate Assistance 7=Complete IndependenceIRFPAI Quality Coding Scale 6 Independent with activity with or without an assistive device 5 Patient requires set up or clean up by helper. Patient completes activity by themselves 4 Supervision or touching assist (CGA). [place] provide cues , steadying assist 3 The helper provides less than half the effort to complete the activity 2 The helper provides more than half the effort to complete the activity 1 Dependent. The helper does all the effort to complete an activity 7 Patient refused to complete or attempt activity 9 The patient did not perform the activity before the current illness or injury 88 Not attempted due to Medical conditions or safety concerns Transfers (B, C, W/C) (FIM): 5 Sit to/from Stand: 5 Sit to Stand (QC): 5 Weight Bearing Right Lower Extremity: Right Full Weight Bearing Left Lower Extremity: Left Weight Bearing/Tolerated Gait Training Does the Patient Walk?: Yes Distance (FIM): 3=589-99 ft Distance: 75 Gait Level of Assist: 5 Gait Persons Needed: 1 Gait Assistive Device: FWW Pt appeared to be more stiff than this mornings Tx with flexed B knees during ambulation. Wheelchair Training Does the Pt Use a Wheelchair?: Yes Wheelchair (FIM): 4 Distance: 75 Wheelchair Level of Assist: 6 Type of Wheelchair: Manual Exercises Seated Therapy Exercises: Ankle pumps, Long arc quads, Hip flexion, Kicking activity, Hip abd/add, Glut set Seated Reps: 15 Treatments Pt ambulated in Therapy Department approximately 75ft before stopping to perform seated Ex. Pt then propelled back to room where RN [facility] assisted pt to the restroom. Pt is in recliner with all needs met. Assessment Current Status: Good Progress Pt fatigues easier and is more stiff during ambulation as compared to morning Tx. PT Short Term Goals Short Term Goals Time Frame: Dec 23, 2017 Transfers (B,C,W/C) (FIM): 4 Gait (FIM): 2 Gait Distance Comment: 60' Gait Level of Assist: 4 Gait Assistive Device: FWW Wheelchair Distance: 75' PT Specification Writer Goals Prison Goals PT Prison Goals Time Frame: Jan 06, 2018 Transfers (B,C,W/C) (FIM): 4 Sit to Lying (QC): 3 Lying-Sitting on Side/Bed(QC): 4 Sit to Stand (QC): 4 Rollin Roll Left to Right (QC): 4 Chair/Urj-da-[place]vuan Xfer(QC): 4 Car Transfer (QC): 4 Gait (FIM): 2 Distance: 100' Walk 10 feet (QC): 4 Walk 10ft-Uneven Surface(QC): 4 Walk 50ft with 2 Turns (QC): 4 Gait Level of Assist: 5 Gait Assistive Device: FWW PT Plan Problem List Problem List: Activity Tolerance, Functional Strength, Safety, Gait Treatment/Plan Treatment Plan: Continue Plan of Care Treatment Plan: Bed Mobility, Concurrent Therapy, Education, Functional Activity Ricardo, Functional Strength, Group Therapy, Gait, Safety, Therapeutic Exercise, Transfers Treatment Duration: Jan 06, 2018 Frequency: At least 5 of 7 days/Wk (IRF) Estimated Hrs Per Day: 1.5 hours per day Patient and/or Family Agrees t: Yes Safety Risks/Education Patient Education: Gait Training, Transfer Techniques, Correct Positioning, Safety Issues Teaching Recipient: Patient Teaching Methods: Demonstration, Discussion Response to Teaching: Verbalize Understanding, Return Demonstration Time/GCodes Time In: 1330 Time Out: 1410 Total Billed Treatment Time: 40 Total Billed Treatment 1, FAx2 (25m) Ex (15m) G Codes Necessary: LUIS Mckinney RN [facility] Dec 23, 2017 15:39
[2017-12-23 17:06] VITALS: BP 127/82
[2017-12-23] MEDS: warFARin 7.5 MG (COUMADIN) TAB PO SCH (17:07)
[2017-12-23] MEDS: TOLTERODINE LA 2 MG (DETROL LA) CAP PO SCH (20:37)
[2017-12-24 05:19] LABS: INR 2.3 (0.8-1.4); PROTHROMBIN TIME PATIENT 25.2 SEC (12.2-14.7)
[2017-12-24 05:24] VITALS: BP 114/71
[2017-12-24] MEDS: KCL 20 MEQ TAB (K-DUR) PO SCH (06:25)
[2017-12-24] MEDS: MAGNESIUM OXIDE (MAG-OX)400 MG TAB PO SCH (08:29)
[2017-12-24] MEDS: predniSONE 5 MG TAB PO SCH (08:29)
[2017-12-24] MEDS: GABAPENTIN 300 MG (NEURONTIN) CAP PO SCH ×4 (08:29→21:42)
[2017-12-24] MEDS: PRAMIPEXOLE 0.125 MG (MIRAPEX) TABLET PO SCH ×2 (08:29→21:43)
[2017-12-24] MEDS: HYDROcodone/APAP 5 MG/325 MG (LORTAB) TAB PO PRN ×3 (08:30→21:48)
[2017-12-24] MEDS: NEO/POLY/BAC (NEOSPORIN) OINT 15 GM TUBE TOP SCH (08:39)
[2017-12-24] MEDS: MINOCYCLINE HCL 100 MG PO SCH ×2 (08:40→21:42)
--- NOTE | 2017-12-24 09:13 | Physical Therapy Daily Note ---
PT Daily Note-Current Subjective Pt sitting in recliner upon arrival. Pt agrees to PT. Pain Numeric Pain Scale: 5-Moderate Pain Location: Left Location Body Site: Knee Pain Description: Ache, Tightness Mental Status Patient Orientation: Person, Place, Time, Situation Transfers Functional [place] Measure 0=Not Assessed/NA 4=Minimal Assistance 1=Total Assistance 5=Supervision or Setup 2=Maximal Assistance 6=Modified [place] 3=Moderate Assistance 7=Complete IndependenceIRFPAI Quality Coding Scale 6 Independent with activity with or without an assistive device 5 Patient requires set up or clean up by helper. Patient completes activity by themselves 4 Supervision or touching assist (CGA). [place] provide cues , steadying assist 3 The helper provides less than half the effort to complete the activity 2 The helper provides more than half the effort to complete the activity 1 Dependent. The helper does all the effort to complete an activity 7 Patient refused to complete or attempt activity 9 The patient did not perform the activity before the current illness or injury 88 Not attempted due to Medical conditions or safety concerns Scootin Sit to/from Stand: 5 Sit to Stand (QC): 5 Weight Bearing Right Lower Extremity: Right Full Weight Bearing Left Lower Extremity: Left Weight Bearing/Tolerated Gait Training Does the Patient Walk?: Yes Distance (FIM): 3=150 ft Distance: 150' Walk 10 feet (QC): 4 Walk 50 ft with 2 Turns(QC): 4 Walk 150 ft (QC): 4 Gait Level of Assist: 4 Gait Persons Needed: 1 Gait Assistive Device: FWW Pt ambulates with a very stiff and antalgic gait pattern especially compared to yesterday's tx. Pt's BLE are flexed during ambulation. Exercises Supine Ex: Ankle pumps, Quad Set, Heel Slides Supine Reps: 15 Treatments Pt transfers from recliner at [facility] and ambulates in hallway using FWW at [facility]. PAIRER massages pt's incision site as well as back of knee to work on breaking up scar tissue to assist in better ambulation due to decreased stiffness. Pt completes Supine Ex on mat before returning to room. Pt uses restroom at end of tx. Assessment Current Status: Good Progress Pt responses well to massaging the scar tissue. Pt reports tenderness during massage but reports feeling better after completed. PT Short Term Goals Short Term Goals Time Frame: Dec 23, 2017 Transfers (B,C,W/C) (FIM): 4 Gait (FIM): 2 Gait Distance Comment: 60' Gait Level of Assist: 4 Gait Assistive Device: FWW Wheelchair Distance: 75 PT Longterm Goals Impregnator Helper Goals PT Impregnator Helper Goals Time Frame: Jan 06, 2018 Transfers (B,C,W/C) (FIM): 4 Sit to Lying (QC): 3 Lying-Sitting on Side/Bed(QC): 4 Sit to Stand (QC): 4 Rollin Roll Left to Right (QC): 4 Chair/Uqm-me-Hqtbg Xfer(QC): 4 Car Transfer (QC): 4 Gait (FIM): 2 Distance: 100' Walk 10 feet (QC): 4 Walk 10ft-Uneven Surface(QC): 4 Walk 50ft with 2 Turns (QC): 4 Gait Level of Assist: 5 Gait Assistive Device: FWW PT Plan Problem List Problem List: Activity Tolerance, Functional Strength, Safety, Balance, Gait Treatment/Plan Treatment Plan: Continue Plan of Care Treatment Plan: Bed Mobility, Concurrent Therapy, Education, Functional Activity Ricardo, Functional Strength, Group Therapy, Gait, Safety, Therapeutic Exercise, Transfers Treatment Duration: Jan 06, 2018 Frequency: At least 5 of 7 days/Wk (IRF) Estimated Hrs Per Day: 1.5 hours per day Patient and/or Family Agrees t: Yes Safety Risks/Education Patient Education: Gait Training, Transfer Techniques, Correct Positioning, Safety Issues Teaching Recipient: Patient Teaching Methods: Discussion Response to Teaching: Verbalize Understanding Time/GCodes Time In: 800 Time Out: 900 Total Billed Treatment Time: 60 Total Billed Treatment 1, GT (15m), EX (15m) & FA x2 (30m) G Codes Necessary: LUIS Mckinney PTA Dec 24, 2017 09:13
--- NOTE | 2017-12-24 12:20 | Occupational Ther Daily Note ---
OT Current Status-Daily Note Subjective Pt said she was ready to go make some mac n cheese. Appearance Pt sitting in recliner, alert, and ready to work with OT. Mental Status/Objective Patient Orientation: Person, Place, Time, Situation Functional [place] Measure 0=Not Assessed/NA 4=Minimal Assistance 1=Total Assistance 5=Supervision or Setup 2=Maximal Assistance 6=Modified [place] 3=Moderate Assistance 7=Complete [place] ADL-Treatment Functional [place] Measure 0=Not Assessed/NA 4=Minimal Assistance 1=Total Assistance 5=Supervision or Setup 2=Maximal Assistance 6=Modified [place] 3=Moderate Assistance 7=Complete IndependenceIRFPAI Quality Coding Scale 6 Independent with activity with or without an assistive device 5 Patient requires set up or clean up by helper. Patient completes activity by themselves 4 Supervision or touching assist (CGA). [place] provide cues , steadying assist 3 The helper provides less than half the effort to complete the activity 2 The helper provides more than half the effort to complete the activity 1 Dependent. The helper does all the effort to complete an activity 7 Patient refused to complete or attempt activity 9 The patient did not perform the activity before the current illness or injury 88 Not attempted due to Medical conditions or safety concerns Eating (FIM): 7 Eating (QC): 6 Grooming (FIM): 6 (Pt. brushed hair at wheelchair level with long handled brush before kitchen task.) Transfers (B, C, W/C) (FIM): 5 (Pt required setup, SBA) Other Treatment Pt. up in chair and already dressed for the day. Agrees to go to kitchen for kitchen task. Pt self propelled wc to therapy kitchen. Pt participated in a cooking activity. Pt was able to stand at FWW at stove with SBA and measure some of the ingredients for mac n cheese. Pt required assist in pouring liquids from cartons to measuring cups, opening cheese packaging, pouring wet ingredients from measuring cups into louis due to coordination difficulties from arthritis. Pt. able to stir ingredients in louis while in stance at stove with FWW directly in front of her. Pt was able to stir with R UE while holding onto louis handle with L UE for short periods of time. Pt required the need to take several rest breaks and would transfer from stand at FWW to sit in wc with SBA. Pt was able to slice cheese with a knife into smaller portions, while seated, for easier melting. Pt able to add cheese to louis while standing. Pt required assistance for the larger louis of boiled noodles in both stirring, draining, and pouring cheese sauce into larger louis and stirring final ingredients together. Pt was able to read instructions and follow with no limitations. Pt shared finished dish with therapist and staff. This task was performed due to Pt having stated that she loves to cook and would like to be able to perform cooking tasks more independently. This cooking task helped improve fine motor skills, activity tolerance, activity techniques, education on how to complete steps at home more efficiently, Pt's spouse arrived in therapy kitchen and Pt requested to stay in kitchen/dining area at end of therapy session. All needs were met. Education OT Patient Education: Energy conservation, Modified ADL techniques, Progress toward Goal/Update tx plan, Purpose of tx/functional activities, Rehab process, Safety issues, Transfer techniques, W/C management Teaching Recipient: Patient Teaching Methods: Demonstration, Discussion Response to Teaching: Verbalize Understanding, Return Demonstration OT Short Term Goals Short Term Goals Time Frame: Dec 23, 2017 Grooming(FIM): 5 Lower Body Dressing(FIM): 4 Transfers (B,C,W/C) (FIM): 4 Toilet/Commode Transfer(FIM): 4 Additional Short Term Goals: 1-Demonstrate ADL Tasks, 2-Verbalize Understanding , 3-ImproveStrength/Ricardo 1=Demonstrate adherence to instructed precautions during ADL tasks. 2=Patient will verbalize/demonstrate understanding of assistive devices/ modifications for ADL. 3=Patient will improve strength/tolerance for activity to enable patient to perform ADL's. OT Shelter Goals Television Repairman Goals Time Frame: Jan 06, 2018 Eating (FIM): 6 Eating (QC): 6 Groomin Oral Hygiene (QC): 6 Bathing(FIM): 4 Shower/Bathe Self (QC): 4 Upper Body Dressing(FIM): 5 Upper Body Dressing (QC): 5 Lower Body Dressing(FIM): 4 (CGA) Lower Body Dressing (QC): 4 On/Off Footwear (QC): 5 Toileting(FIM): 5 Toileting Hygiene (QC): 5 Toilet/Commode Transfer(FIM): 5 Toilet/Commode Transfer (QC): 5 Shower Transfer(FIM): 4 Additional Goals: 1-Demonstrate ADL Tasks, 2-Verbalize Understanding, 3- ImproveStrength/Ricardo 1=Demonstrate adherence to instructed precautions during ADL tasks. 2=Patient will verbalize/demonstrate understanding of assistive devices/ modifications for ADL. 3=Patient will improve strength/tolerance for activity to enable patient to perform ADL's. OT Education/Plan Problem List/Assessment Assessment: Decreased Activ Tolerance, Decreased UE Strength, Impaired I ADL's , Impaired Self-Care Skills, Restricted Funct UE ROM Discharge Recommendations Plan/Recommendations: Continue POC Therapy D/C Recommendations: Home w/ Family Support, Occupational Therapy Home Care Treatment Plan/Plan of Care Treatment,Training & Education: Yes Patient would benefit from OT for education, treatment and training to promote independence in ADL's, mobility, safety and/or upper extremity function for ADL' s. Plan of Care: ADL Retraining, Functional Mobility, Group Exercise/Act as Ind, UE Funct Exercise/Act Treatment Duration: Jan 06, 2018 Frequency: At least 5 of 7 days/Wk (IRF) Estimated Hrs Per Day: 1.5 hours per day Agreement: Yes Rehab Potential: Fair Time/GCodes Start Time: 09:30 Stop Time: 10:45 Total Time Billed (hr/min): 75 Billed Treatment Time 1, ADL x 75 minutes. SHAKIRA DOE OT Dec 24, 2017 12:20
[2017-12-24] MEDS: BUMETANIDE 1 MG (BUMEX) TAB PO SCH (13:33)
--- NOTE | 2017-12-24 14:03 | PM & R (SOAP) Progress Note ---
Subjective This was a face to face visit with the patient. Date Seen by Provider: Dec 24, 2017 Time Seen by Provider: 07:50 Subjective/Events-last exam Patient was seen in her room this AM Patient Min assist for transfers INR noted Review of Systems Neurological: Weakness Objective Physician Exam Last Set of Vital Signs Vital Signs Date Time Temp Pulse Resp B/P (MAP) Pulse Ox O2 Delivery O2 Flow Rate FiO2 12/24/17 09:00 Room Air 12/24/17 05:24 97.8 74 18 114/71 (85) 96 12/22/17 03:46 2.00 Capillary Refill : Less Than 3 Seconds I&O Intake and Output 12/24/17 00:00 Intake Total 1620 ml Balance 1620 ml Intake Oral 1620 ml # Voids 7 General: Alert, Oriented X3, Cooperative, No Acute Distress HEENT: Atraumatic, PERRLA, EOMI, Mucous Memb Moist/[place] Neck: Supple, No JVD Lungs: Clear to Auscultation Heart: Regular Rate Abdomen: Normal Bowel Sounds, Soft, No Tenderness Extremities: Other (Left calf tight but non tender Incision healing well Limited AROM left shoulder due to OA) Neuro: Sensation Intact, Other (Generalized weakaness more so left shoulder and left knee) Psych/Mental Status: Mental Status NL, Other (cognition intact) Results Lab Data Laboratory Tests 12/24/17 04:55: Prothrombin Time 25.2H, INR Comment 2.3H Assessment/Plan Assessment and Plan 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
--- NOTE | 2017-12-24 14:58 | Therapy Group Daily Note ---
Therapy Daily Group Note Patient Education Topic Other List Below (Memory Education & Strategies) Exercises LE Seated Exercise, UE Exercise Other/Notes Pt was propelled to PT/OT Group in [facility]. Group consisted of Introduction (Name, Where you are from & Favorite Winter/snow Memory), Socialization, ARU Description & Expectations, Seated UE & LE Exercises, Memory Education & Strategies as well as Memory activity to incorporate those strategies. Pt actively participated in Seated Ex, listening to peers appropriately, assisted fellow patients with Memory activity and participated herself when asked. Pt returns to room at end of tx. Pt has all needs met at end of Group. Start Time: 13:00 Stop Time: 14:10 Total Billed Treatment Time: 70 Total Billed Treatment 1, GRP LUIS PERSON MAILING MACHINE ASSISTANT Dec 24, 2017 14:58
[2017-12-24] MEDS: warFARin 7.5 MG (COUMADIN) TAB PO SCH (17:22)
[2017-12-24 17:59] VITALS: BP 125/84
[2017-12-24] MEDS: TOLTERODINE LA 2 MG (DETROL LA) CAP PO SCH (21:43)
[2017-12-25 05:18] VITALS: BP 164/82
[2017-12-25] MEDS: KCL 20 MEQ TAB (K-DUR) PO SCH (06:12)
[2017-12-25] MEDS: MAGNESIUM OXIDE (MAG-OX)400 MG TAB PO SCH (07:33)
[2017-12-25] MEDS: GABAPENTIN 300 MG (NEURONTIN) CAP PO SCH ×4 (07:33→20:25)
[2017-12-25] MEDS: predniSONE 5 MG TAB PO SCH (07:34)
[2017-12-25] MEDS: PRAMIPEXOLE 0.125 MG (MIRAPEX) TABLET PO SCH ×2 (07:34→20:25)
[2017-12-25] MEDS: HYDROcodone/APAP 5 MG/325 MG (LORTAB) TAB PO PRN ×3 (07:34→22:47)
[2017-12-25] MEDS: NEO/POLY/BAC (NEOSPORIN) OINT 15 GM TUBE TOP SCH (07:35)
[2017-12-25] MEDS: MINOCYCLINE HCL 100 MG PO SCH ×2 (07:35→20:24)
--- NOTE | 2017-12-25 08:15 | PM & R (SOAP) Progress Note ---
Subjective This was a face to face visit with the patient. Date Seen by Provider: Dec 25, 2017 Time Seen by Provider: 07:40 Subjective/Events-last exam Patient was seen in her room this AM Patient SBA for transfers Review of Systems Musculoskeletal: leg pain Objective Physician Exam Last Set of Vital Signs Vital Signs Date Time Temp Pulse Resp B/P (MAP) Pulse Ox O2 Delivery O2 Flow Rate FiO2 12/25/17 05:18 97.8 84 18 164/82 (109) 96 Room Air 12/22/17 03:46 2.00 Capillary Refill : Less Than 3 Seconds I&O Intake and Output 12/25/17 00:00 Intake Total 1520 ml Balance 1520 ml Intake Oral 1520 ml # Voids 10 # Bowel Movements 1 General: Alert, Oriented X3, Cooperative, No Acute Distress HEENT: Atraumatic, PERRLA, EOMI, Mucous Memb Moist/[place] Neck: Supple, No JVD Lungs: Clear to Auscultation Heart: Regular Rate Abdomen: Normal Bowel Sounds, Soft, No Tenderness Extremities: Other (Left calf tight but non tender Incision healing well Limited AROM left shoulder due to OA) Neuro: Sensation Intact, Other (Generalized weakaness more so left shoulder and left knee) Psych/Mental Status: Mental Status NL, Other (cognition intact) Results Lab Data Laboratory Tests 12/24/17 04:55: Prothrombin Time 25.2H, INR Comment 2.3H Assessment/Plan Assessment and Plan Revision left TKR s/p explantation of hardware for infection and now with revision after antibiotic beads Leiden V factor chronically anticoagulated Onychomycosis s/p debridement DPM Hammer toes 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
--- NOTE | 2017-12-25 10:09 | Physical Therapy Daily Note ---
PT Daily Note-Current Subjective Pt. states she ate take out food last night and hasnt felt well all night. Agrees to Rx Pain Numeric Pain Scale: 4 Location: Left Location Body Site: Knee Pain Description: Heavy Mental Status Patient Orientation: Normal For Age Transfers Functional [place] Measure 0=Not Assessed/NA 4=Minimal Assistance 1=Total Assistance 5=Supervision or Setup 2=Maximal Assistance 6=Modified [place] 3=Moderate Assistance 7=Complete IndependenceIRFPAI Quality Coding Scale 6 Independent with activity with or without an assistive device 5 Patient requires set up or clean up by helper. Patient completes activity by themselves 4 Supervision or touching assist (CGA). [place] provide cues , steadying assist 3 The helper provides less than half the effort to complete the activity 2 The helper provides more than half the effort to complete the activity 1 Dependent. The helper does all the effort to complete an activity 7 Patient refused to complete or attempt activity 9 The patient did not perform the activity before the current illness or injury 88 Not attempted due to Medical conditions or safety concerns Transfers (B, C, W/C) (FIM): 5 Scootin Rollin Supine to/from Sit: 5 Sit to/from Stand: 5 Weight Bearing Right Lower Extremity: Right Full Weight Bearing Left Lower Extremity: Left Weight Bearing/Tolerated Gait Training Does the Patient Walk?: Yes Gait (FIM): 5 Distance (FIM): 3=150 ft (165x2) Gait Level of Assist: 5 Gait Persons Needed: 1 Gait Assistive Device: FWW pt. externally rotates LLE at hip and appears to have weakness of internal rotators at hip as well as lacking extension at knee at approx 10 deg Stair Training pt. declines stairs , states she has stairs at home and hasnt quite come to the decision to install a ramp at home yet Exercises Supine Ex: Ankle pumps, Quad Set, Rolling, Glut sets, Heel Slides, Short Arc Quads, Scooting, Straight leg raise (assist), Hip abd/add Supine Reps: 15 Seated Therapy Exercises: Ankle pumps, Sit to stand, Long arc quads Seated Reps: 15 NuStep Minutes: 10 NuStep Workload: 2 Treatments gentle massage at incision for cross friction, pt. seems to have more flexion ability after this , also gentle massage of posterior fossa for increased extension, noted as well during gait Assessment Current Status: Good Progress slow progress, dependent for safe mobility PT Short Term Goals Short Term Goals Time Frame: Dec 23, 2017 Transfers (B,C,W/C) (FIM): 4 Gait (FIM): 2 Gait Distance Comment: 60' Gait Level of Assist: 4 Gait Assistive Device: FWW Wheelchair Distance: 75 PT Lithograph Press Operator Tinware Goals Fpc Goals PT Fpc Goals Time Frame: Jan 06, 2018 Transfers (B,C,W/C) (FIM): 4 Sit to Lying (QC): 3 Lying-Sitting on Side/Bed(QC): 4 Sit to Stand (QC): 4 Rollin Roll Left to Right (QC): 4 Chair/Ffx-cx-Mobsz Xfer(QC): 4 Car Transfer (QC): 4 Gait (FIM): 2 Distance: 100' Walk 10 feet (QC): 4 Walk 10ft-Uneven Surface(QC): 4 Walk 50ft with 2 Turns (QC): 4 Gait Level of Assist: 5 Gait Assistive Device: FWW PT Plan Treatment/Plan Treatment Plan: Continue Plan of Care Treatment Plan: Bed Mobility, Concurrent Therapy, Education, Functional Activity Ricardo, Functional Strength, Group Therapy, Gait, Safety, Therapeutic Exercise, Transfers Treatment Duration: Jan 06, 2018 Frequency: At least 5 of 7 days/Wk (IRF) Estimated Hrs Per Day: 1.5 hours per day Patient and/or Family Agrees t: Yes Safety Risks/Education Patient Education: Gait Training, Transfer Techniques, Correct Positioning, Disease Process, Safety Issues Teaching Recipient: Patient Teaching Methods: Demonstration, Discussion Response to Teaching: Verbalize Understanding, Return Demonstration, Reinforcement Needed Time/GCodes Time In: 900 Time Out: 1000 Total Billed Treatment Time: 60 Total Billed Treatment 1,EX2,GT30 G Codes Necessary: GORDON Ernst GATEMAN Dec 25, 2017 10:09
[2017-12-25] MEDS: BUMETANIDE 1 MG (BUMEX) TAB PO SCH (12:45)
--- NOTE | 2017-12-25 13:04 | Occupational Ther Daily Note ---
OT Current Status-Daily Note Subjective Pt stated that she didn't have a good afternoon yesterday due to several bouts of "diarrhea". Appearance Pt sitting in chair, alert, and willing to work with OT. Mental Status/Objective Patient Orientation: Person, Place, Time, Situation Functional [place] Measure 0=Not Assessed/NA 4=Minimal Assistance 1=Total Assistance 5=Supervision or Setup 2=Maximal Assistance 6=Modified [place] 3=Moderate Assistance 7=Complete [place] ADL-Treatment Functional [place] Measure 0=Not Assessed/NA 4=Minimal Assistance 1=Total Assistance 5=Supervision or Setup 2=Maximal Assistance 6=Modified [place] 3=Moderate Assistance 7=Complete IndependenceIRFPAI Quality Coding Scale 6 Independent with activity with or without an assistive device 5 Patient requires set up or clean up by helper. Patient completes activity by themselves 4 Supervision or touching assist (CGA). [place] provide cues , steadying assist 3 The helper provides less than half the effort to complete the activity 2 The helper provides more than half the effort to complete the activity 1 Dependent. The helper does all the effort to complete an activity 7 Patient refused to complete or attempt activity 9 The patient did not perform the activity before the current illness or injury 88 Not attempted due to Medical conditions or safety concerns Grooming (FIM): 6 (See notes below. ) Bathing (FIM): 4 (See note below. ) Bathing Location: L Arm, R Arm, L Upper Leg, R Upper Leg, L Lower Leg ( including foot), R Lower Leg (including foot), Chest, Abdomen, Perineal Area Upper Body (FIM): 4 (Pt. requires min assist to don bra, but is able to don shirt after set up.) Upper Body Dressing (QC): 4 Lower Body Dressing (FIM): 3 (See note below.) Lower Body Dressing (QC): 3 On/Off Footwear (QC): 5 Transfers (B, C, W/C) (FIM): 4 (SBA with transfers from chair/chair, CGA with ambulation at walker.) Shower Transfer(FIM): 3 (Requires assist to transfer from shower bench to stand at FWW. ) Pt requires SBA transfer from recliner sit to stand at FWW. Pt requires CGA to ambulate to shower. Pt requires SBA to transfer from stand at FWW to sit at shower bench. Pt able to doff shirt MOD I, doff pants and undergarments with use of dressing stick, SBA. Pt requires setup with all equipment and materials for showering. Pt utilizes a long handled sponge, shower bench, grab bars and a hand held shower sprayer. Pt able to wash all body parts but needing assistance on rear [place] area. Pt able to pull up with grab bars to stand during washing of rear [place] area SBA. Pt applies lotion on all body parts with long handled tool for application of lotion. Pt requires assistance in donning bra. Pt able to don shirt while sitting on shower bench. Pt required use of tile fitter and assist for threading undergarments and pants. Pt able to don shoes with setup while sitting on shower bench.Pt required use of grab bars to transfer from sit on shower bench to stand at FWW with MIN A. Pt able to pull pants up over hips, requiring assist to pull up undergarments and pants in back. Pt able to pull undergarments/pants over hips today which is an improvement. Pt ambulates from stand at FWW to sit in chair. Pt sits at sink to brush teeth needing assistance to squeeze toothpaste from tube due to needing a tube that is more full. Typically Pt is capable of applying toothpaste herself. Pt able to brush teeth MOD I. Pt able to brush hair with long handled brush. Pt able to use a applied psychology chair to dry most of her hair requiring assistance with drying the back of her head. Pt transferred from sit in chair to stand at FWW with SBA. Pt ambulates to therapy laundry room which is approximately 80' to wash her clothing. Pt able to put clothing into washer and pour detergent into washer. Due to Pt's limited ROM, OT assisted in turning on washer. Pt ambulates back to room. Pt transfers from stand at FWW to sit in recliner with SBA. Pt participated in 4 exercises with yellow sponge for hand strengthening and stretching. All needs met. Education OT Patient Education: Energy conservation, Modified ADL techniques, Progress toward Goal/Update tx plan, Purpose of tx/functional activities, Rehab process, Transfer techniques, Use of adapted equipment, W/C management Teaching Recipient: Patient Teaching Methods: Demonstration, Discussion Response to Teaching: Verbalize Understanding, Return Demonstration OT Short Term Goals Short Term Goals Time Frame: Dec 23, 2017 Grooming(FIM): 5 Lower Body Dressing(FIM): 4 Transfers (B,C,W/C) (FIM): 4 Toilet/Commode Transfer(FIM): 4 Additional Short Term Goals: 1-Demonstrate ADL Tasks, 2-Verbalize Understanding , 3-ImproveStrength/Ricardo 1=Demonstrate adherence to instructed precautions during ADL tasks. 2=Patient will verbalize/demonstrate understanding of assistive devices/ modifications for ADL. 3=Patient will improve strength/tolerance for activity to enable patient to perform ADL's. OT [employer] Consultant Goals [employer] Consultant Goals Time Frame: Jan 06, 2018 Eating (FIM): 6 Eating (QC): 6 Groomin Oral Hygiene (QC): 6 Bathing(FIM): 4 Shower/Bathe Self (QC): 4 Upper Body Dressing(FIM): 5 Upper Body Dressing (QC): 5 Lower Body Dressing(FIM): 4 (CGA) Lower Body Dressing (QC): 4 On/Off Footwear (QC): 5 Toileting(FIM): 5 Toileting Hygiene (QC): 5 Toilet/Commode Transfer(FIM): 5 Toilet/Commode Transfer (QC): 5 Shower Transfer(FIM): 4 Additional Goals: 1-Demonstrate ADL Tasks, 2-Verbalize Understanding, 3- ImproveStrength/Ricardo 1=Demonstrate adherence to instructed precautions during ADL tasks. 2=Patient will verbalize/demonstrate understanding of assistive devices/ modifications for ADL. 3=Patient will improve strength/tolerance for activity to enable patient to perform ADL's. OT Education/Plan Problem List/Assessment Assessment: Decreased Activ Tolerance, Decreased UE Strength, Impaired Coordination, Impaired Funct Balance, Impaired I ADL's, Impaired Self-Care Skills, Restricted Funct UE ROM Discharge Recommendations Plan/Recommendations: Continue POC Therapy D/C Recommendations: Home w/ Family Support, Occupational Therapy Home Care Treatment Plan/Plan of Care Treatment,Training & Education: Yes Patient would benefit from OT for education, treatment and training to promote independence in ADL's, mobility, safety and/or upper extremity function for ADL' s. Plan of Care: ADL Retraining, Functional Mobility, Group Exercise/Act as Ind, UE Funct Exercise/Act Treatment Duration: Jan 06, 2018 Frequency: At least 5 of 7 days/Wk (IRF) Estimated Hrs Per Day: 1.5 hours per day Agreement: Yes Rehab Potential: Fair Time/GCodes Start Time: 10:15 Stop Time: 11:45 Total Time Billed (hr/min): 90 Billed Treatment Time 1, ADL x 90 minutes. SHAKIRA DOE OT Dec 25, 2017 13:04
--- NOTE | 2017-12-25 14:03 | Physical Therapy Daily Note ---
PT Daily Note-Current Subjective Pt. agrees to Rx. Has 4-5 steps with one rail at home that are 4 in high. Pt. stated after ascending 5 in step inside the parallel bars that she is very proud of herself Pain Numeric Pain Scale: 0-No Pain Mental Status Patient Orientation: Normal For Age Transfers Functional [place] Measure 0=Not Assessed/NA 4=Minimal Assistance 1=Total Assistance 5=Supervision or Setup 2=Maximal Assistance 6=Modified [place] 3=Moderate Assistance 7=Complete IndependenceIRFPAI Quality Coding Scale 6 Independent with activity with or without an assistive device 5 Patient requires set up or clean up by helper. Patient completes activity by themselves 4 Supervision or touching assist (CGA). [place] provide cues , steadying assist 3 The helper provides less than half the effort to complete the activity 2 The helper provides more than half the effort to complete the activity 1 Dependent. The helper does all the effort to complete an activity 7 Patient refused to complete or attempt activity 9 The patient did not perform the activity before the current illness or injury 88 Not attempted due to Medical conditions or safety concerns all sit to stand SBA Weight Bearing Right Lower Extremity: Right Full Weight Bearing Left Lower Extremity: Left Weight Bearing/Tolerated Gait Training Gait Assistive Device: FWW 50 ft x 2 FWW slow, SBA, improved knee extension with wt bearing Wheelchair Training Type of Wheelchair: Manual 100ft x 2 indep with brakes etc Stair Training Stair Training: Handrails/: 2 handrails Stairs: Pattern: Step to up down single pink step x 4 in parallel bars with CGA and instruction for sequence, pt. pleased with her self Exercises Seated Therapy Exercises: Ankle pumps, Long arc quads Seated Reps: 12 Assessment Current Status: Good Progress PT Short Term Goals Short Term Goals Time Frame: Dec 23, 2017 Transfers (B,C,W/C) (FIM): 4 Gait (FIM): 2 Gait Distance Comment: 60' Gait Level of Assist: 4 Gait Assistive Device: FWW Wheelchair Distance: 75 PT Rock Crusher Goals Nursing Home Goals PT Rock Crusher Goals Time Frame: Jan 06, 2018 Transfers (B,C,W/C) (FIM): 4 Sit to Lying (QC): 3 Lying-Sitting on Side/Bed(QC): 4 Sit to Stand (QC): 4 Rollin Roll Left to Right (QC): 4 Chair/Rrh-vf-[id number] Xfer(QC): 4 Car Transfer (QC): 4 Gait (FIM): 2 Distance: 100' Walk 10 feet (QC): 4 Walk 10ft-Uneven Surface(QC): 4 Walk 50ft with 2 Turns (QC): 4 Gait Level of Assist: 5 Gait Assistive Device: FWW PT Plan Treatment/Plan Treatment Plan: Continue Plan of Care Treatment Plan: Bed Mobility, Concurrent Therapy, Education, Functional Activity Ricardo, Functional Strength, Group Therapy, Gait, Safety, Therapeutic Exercise, Transfers Treatment Duration: Jan 06, 2018 Frequency: At least 5 of 7 days/Wk (IRF) Estimated Hrs Per Day: 1.5 hours per day Patient and/or Family Agrees t: Yes Safety Risks/Education Patient Education: Gait Training, Steps, Correct Positioning, Disease Process, Safety Issues Teaching Recipient: Patient Teaching Methods: Demonstration, Discussion Response to Teaching: Verbalize Understanding, Return Demonstration, Reinforcement Needed Time/GCodes Time In: 1330 Time Out: 1400 Total Billed Treatment Time: 30 Total Billed Treatment 1,FA20,GT10 G Codes Necessary: GORDON Ernst FOOT GATHERER Dec 25, 2017 14:03
[2017-12-25 17:42] VITALS: BP 130/80
[2017-12-25] MEDS: warFARin 7.5 MG (COUMADIN) TAB PO SCH (18:05)
[2017-12-25] MEDS: TOLTERODINE LA 2 MG (DETROL LA) CAP PO SCH (20:25)
[2017-12-26 05:11] VITALS: BP 125/79
[2017-12-26] MEDS: KCL 20 MEQ TAB (K-DUR) PO SCH (06:17)
[2017-12-26] MEDS: PRAMIPEXOLE 0.125 MG (MIRAPEX) TABLET PO SCH ×2 (07:47→21:22)
[2017-12-26] MEDS: MAGNESIUM OXIDE (MAG-OX)400 MG TAB PO SCH (07:47)
[2017-12-26] MEDS: GABAPENTIN 300 MG (NEURONTIN) CAP PO SCH ×4 (07:47→21:22)
[2017-12-26] MEDS: predniSONE 5 MG TAB PO SCH (07:47)
[2017-12-26] MEDS: MINOCYCLINE HCL 100 MG PO SCH ×2 (07:48→21:24)
[2017-12-26] MEDS: HYDROcodone/APAP 5 MG/325 MG (LORTAB) TAB PO PRN ×3 (07:48→21:23)
--- NOTE | 2017-12-26 11:44 | Occupational Ther Daily Note ---
OT Current Status-Daily Note Subjective Pt stated that she felt she was getting better but still wanted to get stronger before going home. Appearance Pt sitting in recliner, alert, and willing to work with OT. Mental Status/Objective Patient Orientation: Person, Place, Situation Functional [place] Measure 0=Not Assessed/NA 4=Minimal Assistance 1=Total Assistance 5=Supervision or Setup 2=Maximal Assistance 6=Modified [place] 3=Moderate Assistance 7=Complete [place] ADL-Treatment Functional [place] Measure 0=Not Assessed/NA 4=Minimal Assistance 1=Total Assistance 5=Supervision or Setup 2=Maximal Assistance 6=Modified [place] 3=Moderate Assistance 7=Complete IndependenceIRFPAI Quality Coding Scale 6 Independent with activity with or without an assistive device 5 Patient requires set up or clean up by helper. Patient completes activity by themselves 4 Supervision or touching assist (CGA). [place] provide cues , steadying assist 3 The helper provides less than half the effort to complete the activity 2 The helper provides more than half the effort to complete the activity 1 Dependent. The helper does all the effort to complete an activity 7 Patient refused to complete or attempt activity 9 The patient did not perform the activity before the current illness or injury 88 Not attempted due to Medical conditions or safety concerns Grooming (FIM): 5 (See note below. ) Bathing (FIM): 5 (See note below. ) Bathing Location: L Arm, R Arm, L Upper Leg, R Upper Leg, L Lower Leg ( including foot), R Lower Leg (including foot), Chest, Abdomen, Perineal Area Upper Body (FIM): 4 (See note below. ) Lower Body Dressing (FIM): 4 (See note below. ) Toileting (FIM): 5 (See note below. ) Transfers (B, C, W/C) (FIM): 4 (See note below. ) Toilet/Commode Transfer (FIM): 5 (See note below. ) Shower Transfer(FIM): 4 (See note below. ) Pt requires SBA in transfer from recliner sit to stand at FWW. Pt requires CGA in ambulation to bathroom. Pt requires SBA in transfer from FWW to sit on toilet. Pt able to pull down pants and undergarments. Pt able to cleanse sanjuana area after toileting. Pt doffed pants and undergarments while sitting on toilet. Pt required SBA in transfer from sit on toilet to stand at FWW. Pt requires CGA assist in ambulation to shower bench. Pt requires SBA in transfer from stand at FWW to sit at shower bench. Pt able to doff shirt. Pt requiring assistance to wash rear [place] area, Pt able to wash all other body parts. Pt requires the use of grab bars, long handled sponge, hand held shower sprayer, and shower bench for bathing. Pt requires assistance with donning bra. Pt able to don shirt. Pt able to don undergarments and pants with only incidental assistance and use of grabber. Pt able to don shoes. Setup required for all clothing. Pt requires CGA for sit on shower bench to stand at FWW, due to only being able to use grabbars and not having something to push up from. Pt requires CGA to ambulate to chair, requiring SBA to transfer from stand at FWW to sit in chair. OT moves chair to sink for grooming. Pt able to brush hair with long handled brush. Pt able to brush teeth. Grooming task performed in chair at sink with SBA. Pt transferred from chair with SBA to stand at FWW. Pt ambulated to therapy laundry room with CGA. Pt put clothing in washer and added detergent. Pt was able to close lid on washer. OT started washing due to limited UE ROM for Pt. Pt ambulated to therapy gym with CGA. Other Treatment Pt required SBA for transfer from stand at FWW to sit in chair. Pt participated in approximately 15 minutes of easy curing oven attendant pegs using alternating bilateral reaching and placing of pegs to help increase sitting balance, reaching, grasp, and hand eye coordination.Pt required SBA for transfer from sit in chair to stand at FWW. Pt ambulated back to room with CGA. Pt stated she needed to toilet. Pt transferred from stand at FWW to sit on toilet with SBA. Pt stated she would need a few minutes. OT instructed Pt to use call light when finished. All needs met. Education OT Patient Education: Energy conservation, Exercise program, Modified ADL techniques, Progress toward Goal/Update tx plan, Purpose of tx/functional activities, Rehab process, Transfer techniques, Use of adapted equipment Teaching Recipient: Patient Teaching Methods: Demonstration, Discussion Response to Teaching: Verbalize Understanding, Return Demonstration OT Short Term Goals Short Term Goals Time Frame: Dec 23, 2017 Grooming(FIM): 5 Lower Body Dressing(FIM): 4 Transfers (B,C,W/C) (FIM): 4 Toilet/Commode Transfer(FIM): 4 Additional Short Term Goals: 1-Demonstrate ADL Tasks, 2-Verbalize Understanding , 3-ImproveStrength/Ricardo 1=Demonstrate adherence to instructed precautions during ADL tasks. 2=Patient will verbalize/demonstrate understanding of assistive devices/ modifications for ADL. 3=Patient will improve strength/tolerance for activity to enable patient to perform ADL's. OT Alf Goals Materials Planner Goals Time Frame: Jan 06, 2018 Eating (FIM): 6 Eating (QC): 6 Groomin Oral Hygiene (QC): 6 Bathing(FIM): 4 Shower/Bathe Self (QC): 4 Upper Body Dressing(FIM): 5 Upper Body Dressing (QC): 5 Lower Body Dressing(FIM): 4 (CGA) Lower Body Dressing (QC): 4 On/Off Footwear (QC): 5 Toileting(FIM): 5 Toileting Hygiene (QC): 5 Toilet/Commode Transfer(FIM): 5 Toilet/Commode Transfer (QC): 5 Shower Transfer(FIM): 4 Additional Goals: 1-Demonstrate ADL Tasks, 2-Verbalize Understanding, 3- ImproveStrength/Ricardo 1=Demonstrate adherence to instructed precautions during ADL tasks. 2=Patient will verbalize/demonstrate understanding of assistive devices/ modifications for ADL. 3=Patient will improve strength/tolerance for activity to enable patient to perform ADL's. OT Education/Plan Problem List/Assessment Assessment: Decreased Activ Tolerance, Decreased UE Strength, Impaired I ADL's , Impaired Self-Care Skills Discharge Recommendations Plan/Recommendations: Continue POC Treatment Plan/Plan of Care Treatment,Training & Education: Yes Patient would benefit from OT for education, treatment and training to promote independence in ADL's, mobility, safety and/or upper extremity function for ADL' s. Plan of Care: ADL Retraining, Functional Mobility, Group Exercise/Act as Ind, UE Funct Exercise/Act Treatment Duration: Jan 06, 2018 Frequency: At least 5 of 7 days/Wk (IRF) Estimated Hrs Per Day: 1.5 hours per day Agreement: Yes Rehab Potential: Fair Time/GCodes Start Time: 09:00 Stop Time: 10:30 Total Time Billed (hr/min): 90 Billed Treatment Time 1, ADL x 60 minutes, EX x 30 minutes. TEGAN HOOD OT Dec 26, 2017 11:43
--- NOTE | 2017-12-26 12:16 | Physical Therapy Daily Note ---
PT Daily Note-Current Subjective Pt sitting in recliner upon arrival. Pt agrees to PT. Pain Numeric Pain Scale: 4 Location: Left Location Body Site: Knee Pain Description: Ache Mental Status Patient Orientation: Person, Place, Time, Situation Transfers Functional [place] Measure 0=Not Assessed/NA 4=Minimal Assistance 1=Total Assistance 5=Supervision or Setup 2=Maximal Assistance 6=Modified [place] 3=Moderate Assistance 7=Complete IndependenceIRFPAI Quality Coding Scale 6 Independent with activity with or without an assistive device 5 Patient requires set up or clean up by helper. Patient completes activity by themselves 4 Supervision or touching assist (CGA). [place] provide cues , steadying assist 3 The helper provides less than half the effort to complete the activity 2 The helper provides more than half the effort to complete the activity 1 Dependent. The helper does all the effort to complete an activity 7 Patient refused to complete or attempt activity 9 The patient did not perform the activity before the current illness or injury 88 Not attempted due to Medical conditions or safety concerns Scootin Sit to/from Stand: 5 Sit to Stand (QC): 5 Weight Bearing Right Lower Extremity: Right Full Weight Bearing Left Lower Extremity: Left Weight Bearing/Tolerated Gait Training Does the Patient Walk?: Yes Distance (FIM): 3=150 ft Distance: 150' Walk 10 feet (QC): 4 Walk 50 ft with 2 Turns(QC): 4 Walk 150 ft (QC): 4 Gait Level of Assist: 4 Gait Persons Needed: 1 Gait Assistive Device: FWW Pt is gaining strength with standing during ambulation although still need CGA for weakness. Wheelchair Training Does the Pt Use a Wheelchair?: No Exercises NuStep Minutes: 10 NuStep Workload: 4 Treatments Pt transfers from recliner to standing then ambulates in hallway using FWW at [facility]. Pt uses NuStep for 10m at 4 followed by short rest. GAGGERMAN massages pt's LLE especially at incision site at knee and back of knee to assist with breakup of scar tissue. Pt returns to room to use restroom before returning to recliner for rest with all needs met. Assessment Current Status: Good Progress Pt's ambulation improves after massage to assist with break up of scar tissue. PT Short Term Goals Short Term Goals Time Frame: Dec 23, 2017 Transfers (B,C,W/C) (FIM): 4 Gait (FIM): 2 Gait Distance Comment: 60' Gait Level of Assist: 4 Gait Assistive Device: FWW Wheelchair Distance: 75 PT Group Home Goals Group Home Goals PT Scale Clerk Goals Time Frame: Jan 06, 2018 Transfers (B,C,W/C) (FIM): 4 Sit to Lying (QC): 3 Lying-Sitting on Side/Bed(QC): 4 Sit to Stand (QC): 4 Rollin Roll Left to Right (QC): 4 Chair/Xlo-fa-Foeuo Xfer(QC): 4 Car Transfer (QC): 4 Gait (FIM): 2 Distance: 100' Walk 10 feet (QC): 4 Walk 10ft-Uneven Surface(QC): 4 Walk 50ft with 2 Turns (QC): 4 Gait Level of Assist: 5 Gait Assistive Device: FWW PT Plan Problem List Problem List: Activity Tolerance, Functional Strength, Gait Treatment/Plan Treatment Plan: Continue Plan of Care Treatment Plan: Bed Mobility, Concurrent Therapy, Education, Functional Activity Ricardo, Functional Strength, Group Therapy, Gait, Safety, Therapeutic Exercise, Transfers Treatment Duration: Jan 06, 2018 Frequency: At least 5 of 7 days/Wk (IRF) Estimated Hrs Per Day: 1.5 hours per day Patient and/or Family Agrees t: Yes Safety Risks/Education Patient Education: Gait Training, Correct Positioning, Safety Issues Teaching Recipient: Patient Teaching Methods: Discussion Response to Teaching: Verbalize Understanding Time/GCodes Time In: 1100 Time Out: 1200 Total Billed Treatment Time: 60 Total Billed Treatment 1, GT (15m), FA x2 (30m) & EX (15m) G Codes Necessary: LUIS Mckinney PTA Dec 26, 2017 12:16
--- NOTE | 2017-12-26 12:43 | PM & R (SOAP) Progress Note ---
Subjective This was a face to face visit with the patient. Date Seen by Provider: Dec 26, 2017 Time Seen by Provider: 08:00 Subjective/Events-last exam Patient was seen in her room this AM Patient SBA for transfers Last INR noted Date Identified: Dec 26, 2017 Time Identified: 08:00 Medication Intervention: Most recent INR noted and is therapeutic Objective Physician Exam Last Set of Vital Signs Vital Signs Date Time Temp Pulse Resp B/P (MAP) Pulse Ox O2 Delivery O2 Flow Rate FiO2 12/26/17 08:00 Room Air 12/26/17 05:11 97.2 66 18 125/79 (94) 95 12/22/17 03:46 2.00 Capillary Refill : Less Than 3 Seconds I&O Intake and Output 12/26/17 00:00 Intake Total 1420 ml Balance 1420 ml Intake Oral 1420 ml # Voids 15 # Bowel Movements 4 General: Alert, Oriented X3, Cooperative, No Acute Distress HEENT: Atraumatic, PERRLA, EOMI, Mucous Memb Moist/[place] Neck: Supple, No JVD Lungs: Clear to Auscultation Heart: Regular Rate Abdomen: Normal Bowel Sounds, Soft, No Tenderness Extremities: Other (Left calf tight but non tender Incision healing well Limited AROM left shoulder due to OA) Neuro: Sensation Intact, Other (Generalized weakaness more so left shoulder and left knee) Psych/Mental Status: Mental Status NL, Other (cognition intact) Results Lab Data Laboratory Tests 12/24/17 04:55: Prothrombin Time 25.2H, INR Comment 2.3H Assessment/Plan Assessment and Plan 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
--- NOTE | 2017-12-26 15:16 | Physical Therapy Daily Note ---
PT Daily Note-Current Subjective Pt sitting in recliner upon arrival. Pt agrees to PT. Pain Numeric Pain Scale: 4 Location: Left Location Body Site: Knee Pain Description: Ache Mental Status Patient Orientation: Person, Place, Time, Situation Transfers Functional [place] Measure 0=Not Assessed/NA 4=Minimal Assistance 1=Total Assistance 5=Supervision or Setup 2=Maximal Assistance 6=Modified [place] 3=Moderate Assistance 7=Complete IndependenceIRFPAI Quality Coding Scale 6 Independent with activity with or without an assistive device 5 Patient requires set up or clean up by helper. Patient completes activity by themselves 4 Supervision or touching assist (CGA). [place] provide cues , steadying assist 3 The helper provides less than half the effort to complete the activity 2 The helper provides more than half the effort to complete the activity 1 Dependent. The helper does all the effort to complete an activity 7 Patient refused to complete or attempt activity 9 The patient did not perform the activity before the current illness or injury 88 Not attempted due to Medical conditions or safety concerns Scootin Sit to/from Stand: 5 Sit to Stand (QC): 5 Weight Bearing Right Lower Extremity: Right Full Weight Bearing Left Lower Extremity: Left Weight Bearing/Tolerated Gait Training Does the Patient Walk?: Yes Distance (FIM): 3=150 ft Distance: 150' Walk 10 feet (QC): 4 Walk 50 ft with 2 Turns(QC): 4 Walk 150 ft (QC): 4 Gait Level of Assist: 4 Gait Persons Needed: 1 Gait Assistive Device: FWW Pt's gait has improved and pt walks with less flexed posture at B knees especially after working scar tissue. Pt fatigues but not as quick as previous tx. Wheelchair Training Does the Pt Use a Wheelchair?: Yes Wheelchair Distance: 8=554-07 ft Distance: 100' Wheelchair Level of Assist: 4 Wheel 50 ft with 2 turns (QC): 4 Type of Wheelchair: Manual Pt propels self for short distance then fatigued and SENIOR MOBILE DEVELOPER propels rest of way to room to rest. Stair Training Stair Training: Handrails/: 2 handrails #of Steps: 4 1 Step (curb) (QC): 4 Stairs: Pattern: Step to Level of Assist: 4 Pt uses single pink stair in //bars x4. Pt rest after each 2 steps. Treatments Pt trasnfers from recliner and ambulates in hallway to Therapy Gym. Pt completes stair training in //bars. Pt returns to room via [facility] due to fatigue from increased ambulation today. Assessment Current Status: Good Progress Pt continues to improve with transfers and safety/independence of ambulation due to increased strength. PT Short Term Goals Short Term Goals Time Frame: Dec 23, 2017 Transfers (B,C,W/C) (FIM): 4 Gait (FIM): 2 Gait Distance Comment: 60' Gait Level of Assist: 4 Gait Assistive Device: FWW Wheelchair Distance: 75 PT [facility] Goals Hair Sample Matcher Goals PT [facility] Goals Time Frame: Jan 06, 2018 Transfers (B,C,W/C) (FIM): 4 Sit to Lying (QC): 3 Lying-Sitting on Side/Bed(QC): 4 Sit to Stand (QC): 4 Rollin Roll Left to Right (QC): 4 Chair/Rnu-ww-Utpqa Xfer(QC): 4 Car Transfer (QC): 4 Gait (FIM): 2 Distance: 100' Walk 10 feet (QC): 4 Walk 10ft-Uneven Surface(QC): 4 Walk 50ft with 2 Turns (QC): 4 Gait Level of Assist: 5 Gait Assistive Device: FWW PT Plan Problem List Problem List: Activity Tolerance, Functional Strength, Gait Treatment/Plan Treatment Plan: Continue Plan of Care Treatment Plan: Bed Mobility, Concurrent Therapy, Education, Functional Activity Ricardo, Functional Strength, Group Therapy, Gait, Safety, Therapeutic Exercise, Transfers Treatment Duration: Jan 06, 2018 Frequency: At least 5 of 7 days/Wk (IRF) Estimated Hrs Per Day: 1.5 hours per day Patient and/or Family Agrees t: Yes Safety Risks/Education Patient Education: Gait Training, Steps, Correct Positioning, Safety Issues Teaching Recipient: Patient Teaching Methods: Discussion Response to Teaching: Verbalize Understanding Time/GCodes Time In: 1300 Time Out: 1330 Total Billed Treatment Time: 30 Total Billed Treatment 1, GT (15m) & FA (15m) G Codes Necessary: LUIS Mckinney SENIOR MOBILE DEVELOPER Dec 26, 2017 15:16
[2017-12-26] MEDS: BUMETANIDE 1 MG (BUMEX) TAB PO SCH (16:33)
[2017-12-26 16:51] VITALS: BP 136/80
[2017-12-26] MEDS: warFARin 7.5 MG (COUMADIN) TAB PO SCH (17:43)
[2017-12-26] MEDS: TOLTERODINE LA 2 MG (DETROL LA) CAP PO SCH (21:22)
[2017-12-27 05:11] VITALS: BP 133/79
[2017-12-27] MEDS: KCL 20 MEQ TAB (K-DUR) PO SCH (06:20)
[2017-12-27] MEDS: HYDROcodone/APAP 5 MG/325 MG (LORTAB) TAB PO PRN ×4 (06:21→22:47)
[2017-12-27] MEDS: MAGNESIUM OXIDE (MAG-OX)400 MG TAB PO SCH (08:11)
[2017-12-27] MEDS: GABAPENTIN 300 MG (NEURONTIN) CAP PO SCH ×4 (08:11→20:51)
[2017-12-27] MEDS: PRAMIPEXOLE 0.125 MG (MIRAPEX) TABLET PO SCH ×2 (08:11→20:51)
[2017-12-27] MEDS: predniSONE 5 MG TAB PO SCH (08:11)
[2017-12-27] MEDS: MINOCYCLINE HCL 100 MG PO SCH ×2 (08:12→20:51)
[2017-12-27] MEDS: BUMETANIDE 1 MG (BUMEX) TAB PO SCH (09:07)
--- NOTE | 2017-12-27 10:47 | Physical Therapy Daily Note ---
PT Daily Note-Current Subjective Up and ready for PT. Agreeable. Has taken pain meds. Pain Numeric Pain Scale: 4 Location: Left Location Body Site: Knee Pain Description: Ache Mental Status Patient Orientation: Person, Place, Time, Situation Transfers Functional [place] Measure 0=Not Assessed/NA 4=Minimal Assistance 1=Total Assistance 5=Supervision or Setup 2=Maximal Assistance 6=Modified [place] 3=Moderate Assistance 7=Complete IndependenceIRFPAI Quality Coding Scale 6 Independent with activity with or without an assistive device 5 Patient requires set up or clean up by helper. Patient completes activity by themselves 4 Supervision or touching assist (CGA). [place] provide cues , steadying assist 3 The helper provides less than half the effort to complete the activity 2 The helper provides more than half the effort to complete the activity 1 Dependent. The helper does all the effort to complete an activity 7 Patient refused to complete or attempt activity 9 The patient did not perform the activity before the current illness or injury 88 Not attempted due to Medical conditions or safety concerns Transfers (B, C, W/C) (FIM): 5 (SBA for safety and takes extra time to complete ) Sit to/from Stand: 5 (x 5 reps during treatment session. ) Weight Bearing Right Lower Extremity: Right Full Weight Bearing Left Lower Extremity: Left Weight Bearing/Tolerated Gait Training Does the Patient Walk?: Yes Gait (FIM): 2 Distance (FIM): 4=747-63 ft Distance: 125 ft x 2 Gait Assistive Device: FWW slow gait; forward flexed at hips and lacks full extension left knee. Step to gait with the right LE. Assessment Current Status: Good Progress Progression. She is more stable during ambulation and transfers. Gait still slow, but no noted LOB or safety issues this visit. Very motivated and compliant. PT Short Term Goals Short Term Goals Time Frame: Dec 23, 2017 Transfers (B,C,W/C) (FIM): 4 (met) Gait (FIM): 2 (met) Gait Distance Comment: 60' Gait Level of Assist: 4 Gait Assistive Device: FWW Wheelchair Distance: 100' PT [facility] Goals [facility] Goals PT [facility] Goals Time Frame: Jan 06, 2018 Transfers (B,C,W/C) (FIM): 4 Sit to Lying (QC): 3 Lying-Sitting on Side/Bed(QC): 4 Sit to Stand (QC): 4 Rollin Roll Left to Right (QC): 4 Chair/Hca-xu-Epply Xfer(QC): 4 Car Transfer (QC): 4 Gait (FIM): 2 Distance: 100' Walk 10 feet (QC): 4 Walk 10ft-Uneven Surface(QC): 4 Walk 50ft with 2 Turns (QC): 4 Gait Level of Assist: 5 Gait Assistive Device: FWW PT Plan Problem List Problem List: Activity Tolerance, Functional Strength, Safety, Balance, Gait, Transfer, Bed Mobility, ROM Treatment/Plan Treatment Plan: Continue Plan of Care Treatment Plan: Bed Mobility, Concurrent Therapy, Education, Functional Activity Ricardo, Functional Strength, Group Therapy, Gait, Safety, Therapeutic Exercise, Transfers Treatment Duration: Jan 06, 2018 Frequency: At least 5 of 7 days/Wk (IRF) Estimated Hrs Per Day: 1.5 hours per day Patient and/or Family Agrees t: Yes Safety Risks/Education Patient Education: Safety Issues Teaching Recipient: Patient Teaching Methods: Discussion Response to Teaching: Verbalize Understanding Discharge Recommendations Therapy D/C Recommendations: Physical Therapy Home Care Time/GCodes Time In: 810 Time Out: 835 Total Billed Treatment Time: 25 Total Billed Treatment visit GT 25 AMANUEL LAYNE PT Dec 27, 2017 10:47
[2017-12-27 15:06] LABS: INR 2.1 (0.8-1.4); PROTHROMBIN TIME PATIENT 23.6 SEC (12.2-14.7)
[2017-12-27] MEDS: warFARin 7.5 MG (COUMADIN) TAB PO SCH (17:15)
[2017-12-27 17:35] VITALS: BP 129/74
[2017-12-27] MEDS: TOLTERODINE LA 2 MG (DETROL LA) CAP PO SCH (20:58)
[2017-12-28 06:02] VITALS: BP 149/84
[2017-12-28] MEDS: KCL 20 MEQ TAB (K-DUR) PO SCH (06:19)
[2017-12-28] MEDS: HYDROcodone/APAP 5 MG/325 MG (LORTAB) TAB PO PRN ×4 (06:19→22:47)
[2017-12-28] MEDS: PRAMIPEXOLE 0.125 MG (MIRAPEX) TABLET PO SCH ×2 (08:38→20:01)
[2017-12-28] MEDS: predniSONE 5 MG TAB PO SCH (08:39)
[2017-12-28] MEDS: MAGNESIUM OXIDE (MAG-OX)400 MG TAB PO SCH (08:39)
[2017-12-28] MEDS: GABAPENTIN 300 MG (NEURONTIN) CAP PO SCH ×4 (08:39→20:01)
[2017-12-28] MEDS: MINOCYCLINE HCL 100 MG PO SCH ×2 (08:40→20:02)
[2017-12-28] MEDS: BUMETANIDE 1 MG (BUMEX) TAB PO SCH (08:55)
[2017-12-28] MEDS: warFARin 7.5 MG (COUMADIN) TAB PO SCH (17:00)
[2017-12-28 17:21] VITALS: BP 127/82
[2017-12-28] MEDS: TOLTERODINE LA 2 MG (DETROL LA) CAP PO SCH (20:01)
[2017-12-29 05:46] VITALS: BP 146/83
[2017-12-29] MEDS: PRAMIPEXOLE 0.125 MG (MIRAPEX) TABLET PO SCH ×2 (06:20→20:24)
[2017-12-29] MEDS: HYDROcodone/APAP 5 MG/325 MG (LORTAB) TAB PO PRN ×2 (06:20→17:50)
[2017-12-29] MEDS: MAGNESIUM OXIDE (MAG-OX)400 MG TAB PO SCH (06:20)
[2017-12-29] MEDS: predniSONE 5 MG TAB PO SCH (06:20)
[2017-12-29] MEDS: GABAPENTIN 300 MG (NEURONTIN) CAP PO SCH ×4 (06:20→20:24)
[2017-12-29] MEDS: KCL 20 MEQ TAB (K-DUR) PO SCH (06:20)
[2017-12-29] MEDS: MINOCYCLINE HCL 100 MG PO SCH ×2 (06:21→20:23)
--- NOTE | 2017-12-29 08:43 | PM & R (SOAP) Progress Note ---
Subjective This was a face to face visit with the patient. Date Seen by Provider: Dec 28, 2017 Time Seen by Provider: 19:15 Subjective/Events-last exam Patient was seen in her room this evening Patient to go back to [place] tomorrow to see ID specialist Day pass ordered Discussed with RN Patient SBA for transfers Date Identified: Dec 28, 2017 Time Identified: 19:20 Medication Intervention: INR noted Review of Systems Musculoskeletal: leg pain Objective Physician Exam Last Set of Vital Signs Vital Signs Date Time Temp Pulse Resp B/P (MAP) Pulse Ox O2 Delivery O2 Flow Rate FiO2 12/29/17 05:46 97.6 76 18 146/83 (104) 94 Room Air 12/28/17 06:02 2.00 Capillary Refill : Less Than 3 Seconds I&O Intake and Output 12/29/17 00:00 Intake Total 1672 ml Balance 1672 ml Intake Oral 1672 ml # Voids 11 # Bowel Movements 2 General: Alert, Oriented X3, Cooperative, No Acute Distress HEENT: Atraumatic, PERRLA, EOMI, Mucous Memb Moist/[place] Neck: Supple, No JVD Lungs: Clear to Auscultation Heart: Regular Rate Abdomen: Normal Bowel Sounds, Soft, No Tenderness Extremities: Other (Left calf tight but non tender Incision healing well Limited AROM left shoulder due to OA) Neuro: Sensation Intact, Other (Generalized weakaness more so left shoulder and left knee) Psych/Mental Status: Mental Status NL, Other (cognition intact) Results Lab Data Laboratory Tests 12/27/17 14:40: Prothrombin Time 23.6H, INR Comment 2.1H Assessment/Plan Assessment and Plan 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 and now with revision after antibiotic beads Leiden V factor chronically anticoagulated Onychomycosis s/p debridement DPM Hammer toes Oa of the C and L spine s/p spinal surgery remote OA of the left shoulder RLS OAB Diastolic CHF compensated Anemia HX of DVT/PE Valvular HT D Nocturnal resp insuff on 02 at Plan Continue PT/OT F/U with ID in [facility] Team Conference 12-31-17 F/U with SW/Team azeem FOX-Probable discharge soon to home with family This note completed tardy due to Password issues with EMR on day of rounding Co-Morbidities that are continuing to impact the rehab process: (include details ) MYLA BIRCH MD Dec 29, 2017 08:43
--- NOTE | 2017-12-29 14:28 | Occ Therapy Progress Note ---
Therapy Progress Note Pt had appointment this date in [place]. SHAKIRA DOE OT Dec 29, 2017 14:28
--- NOTE | 2017-12-29 14:40 | Physical Therapy Progress Note ---
Therapy Progress Note Pt out of facility this date for follow up appt with physician. No therapy services rendered. AMANUEL LAYNE PT Dec 29, 2017 14:40
[2017-12-29] MEDS: BUMETANIDE 1 MG (BUMEX) TAB PO SCH (15:24)
[2017-12-29] MEDS: warFARin 7.5 MG (COUMADIN) TAB PO SCH (17:50)
[2017-12-29 18:15] VITALS: BP 157/87
--- NOTE | 2017-12-29 20:20 | PM & R (SOAP) Progress Note ---
Subjective This was a face to face visit with the patient. Date Seen by Provider: Dec 29, 2017 Time Seen by Provider: 20:00 Subjective/Events-last exam Patient was seen in her room this evening Missed therapies today due to F/U visit with ID Physician in [facility] who requested f/u labs be drawn in AM and faxed to his office Discussed with RN So ordered Patient c/o head congestion.Patient SBA for transfers Date Identified: Dec 29, 2017 Time Identified: 20:00 Medication Intervention: Continue antibiotics and raw labs in AM see orders Review of Systems HEENT: Sinus Congestion Objective Physician Exam Last Set of Vital Signs Vital Signs Date Time Temp Pulse Resp B/P (MAP) Pulse Ox O2 Delivery O2 Flow Rate FiO2 12/29/17 18:15 97.8 69 16 157/87 (110) 94 Room Air 12/28/17 06:02 2.00 Capillary Refill : Less Than 3 Seconds I&O Intake and Output 12/29/17 00:00 Intake Total 1672 ml Balance 1672 ml Intake Oral 1672 ml # Voids 11 # Bowel Movements 2 General: Alert, Oriented X3, Cooperative, No Acute Distress HEENT: Atraumatic, PERRLA, EOMI, Mucous Memb Moist/[place] Neck: Supple, No JVD Lungs: Clear to Auscultation Heart: Regular Rate Abdomen: Normal Bowel Sounds, Soft, No Tenderness Extremities: Other (Left calf tight but non tender Incision healing well Limited AROM left shoulder due to OA) Neuro: Sensation Intact, Other (Generalized weakaness more so left shoulder and left knee) Psych/Mental Status: Mental Status NL, Other (cognition intact) Results Lab Data Laboratory Tests 12/27/17 14:40: Prothrombin Time 23.6H, INR Comment 2.1H Assessment/Plan Assessment and Plan 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
[2017-12-29] MEDS: TOLTERODINE LA 2 MG (DETROL LA) CAP PO SCH (20:24)
[2017-12-29] MEDS: FLUTICASONE NASAL SPRAY (FLONASE) 16 GM BTL NS SCH (20:43)
[2017-12-30 05:04] LABS: BASOPHILS % (AUTO) 0 % (0-10); EOSINOPHILS # (AUTO) 0.3 10^3/uL (0.0-0.3); EOSINOPHILS % (AUTO) 4 % (0-10); HEMATOCRIT 33 % (35-52); LYMPHOCYTES % (AUTO) 41 % (12-44); MEAN CORPUSCULAR HEMOGLOBIN 29 PG (25-34); MEAN CORPUSCULAR HGB CONC 31 G/DL (32-36); MEAN CORPUSCULAR VOLUME 93 FL (80-99); MONOCYTES # (AUTO) 0.6 X 10^3 (0.0-1.0); MONOCYTES % (AUTO) 8 % (0-12); NEUTROPHILS # (AUTO) 3.4 X 10^3 (1.8-7.8); NEUTROPHILS % (AUTO) 46 % (42-75); PLATELET COUNT 282 10^3/uL (130-400); RED CELL DISTRIBUTION WIDTH 15.7 % (10.0-14.5); WHITE BLOOD COUNT 7.3 10^3/uL (4.3-11.0)
[2017-12-30 05:32] LABS: ALANINE AMINOTRANSFERASE 14 U/L (0-55); ALBUMIN 3.3 GM/DL (3.2-4.5); ALKALINE PHOSPHATASE 119 U/L (40-136); BILIRUBIN,TOTAL 0.2 MG/DL (0.1-1.0); BUN/CREATININE RATIO 39; CALCIUM 8.9 MG/DL (8.5-10.1); CARBON DIOXIDE 26 MMOL/L (21-32); CHLORIDE 109 MMOL/L (98-107); CREATININE SERUM 0.66 MG/DL (0.60-1.30); GFR ESTIMATED > 60; GLUCOSE 86 MG/DL (70-105); POTASSIUM 4.1 MMOL/L (3.6-5.0); SODIUM 145 MMOL/L (135-145)
[2017-12-30 05:49] LABS: ERYTHROCYTE SEDIMENTATION RATE 23 MM/HR (0-30)
[2017-12-30] MEDS: KCL 20 MEQ TAB (K-DUR) PO SCH (06:14)
[2017-12-30 06:56] VITALS: BP 152/83
[2017-12-30] MEDS: HYDROcodone/APAP 5 MG/325 MG (LORTAB) TAB PO PRN ×3 (07:16→22:53)
[2017-12-30] MEDS: LORATADINE (CLARITIN) 10 MG TAB PO SCH (08:04)
[2017-12-30] MEDS: PRAMIPEXOLE 0.125 MG (MIRAPEX) TABLET PO SCH ×2 (08:04→20:06)
[2017-12-30] MEDS: GABAPENTIN 300 MG (NEURONTIN) CAP PO SCH ×4 (08:04→20:06)
[2017-12-30] MEDS: predniSONE 5 MG TAB PO SCH (08:04)
[2017-12-30] MEDS: MAGNESIUM OXIDE (MAG-OX)400 MG TAB PO SCH (08:04)
[2017-12-30] MEDS: MINOCYCLINE HCL 100 MG PO SCH ×2 (08:07→20:07)
[2017-12-30] MEDS: FLUTICASONE NASAL SPRAY (FLONASE) 16 GM BTL NS SCH ×2 (08:08→20:10)
--- NOTE | 2017-12-30 08:13 | PM & R (SOAP) Progress Note ---
Subjective This was a face to face visit with the patient. Date Seen by Provider: Dec 30, 2017 Time Seen by Provider: 07:35 Subjective/Events-last exam Patient was seen in her room Patient SBA for transfers Todays labs noted ESR 23 Results to be faxed to her ID Physician in [place] Last INR trending down will recheck See orders Date Identified: Dec 30, 2017 Time Identified: 08:00 Medication Intervention: INR reordered Review of Systems Musculoskeletal: leg pain Objective Physician Exam Last Set of Vital Signs Vital Signs Date Time Temp Pulse Resp B/P (MAP) Pulse Ox O2 Delivery O2 Flow Rate FiO2 12/30/17 06:56 97.7 77 18 152/83 (106) 95 Room Air 12/28/17 06:02 2.00 Capillary Refill : Less Than 3 Seconds I&O Intake and Output 12/30/17 00:00 Intake Total 550 ml Balance 550 ml Intake Oral 550 ml # Voids 4 General: Alert, Oriented X3, Cooperative, No Acute Distress HEENT: Atraumatic, PERRLA, EOMI, Mucous Memb Moist/[place] Neck: Supple, No JVD Lungs: Clear to Auscultation Heart: Regular Rate Abdomen: Normal Bowel Sounds, Soft, No Tenderness Extremities: Other (Left calf tight but non tender Incision healing well Limited AROM left shoulder due to OA) Neuro: Sensation Intact, Other (Generalized weakaness more so left shoulder and left knee) Psych/Mental Status: Mental Status NL, Other (cognition intact) Results Lab Data Laboratory Tests 12/27/17 14:40: Prothrombin Time 23.6H, INR Comment 2.1H 12/30/17 04:20: White Blood Count 7.3, Red Blood Count 3.50L, Hemoglobin 10.0L, Hematocrit 33L, Mean Corpuscular Volume 93, Mean Corpuscular Hemoglobin 29, Mean Corpuscular Hemoglobin Concent 31L, Red Cell Distribution Width 15.7H, Platelet Count 282, Mean Platelet Volume 10.0, Neutrophils (%) (Auto) 46, Lymphocytes (%) (Auto) 41 , Monocytes (%) (Auto) 8, Eosinophils (%) (Auto) 4, Basophils (%) (Auto) 0, Neutrophils # (Auto) 3.4, Lymphocytes # (Auto) 3.0, Monocytes # (Auto) 0.6, Eosinophils # (Auto) 0.3, Basophils # (Auto) 0.0, Erythrocyte Sedimentation Rate 23 12/30/17 04:50: Sodium Level 145, Potassium Level 4.1, Chloride Level 109H, Carbon Dioxide Level 26, Anion Gap 10, Blood Urea Nitrogen 26H, Creatinine 0.66, Estimat Glomerular Filtration Rate > 60, BUN/Creatinine Ratio 39, Glucose Level 86, Calcium Level 8.9, Corrected Calcium 9.5, Total Bilirubin 0.2, Aspartate Amino Transf (AST/SGOT) 14, Alanine Aminotransferase (ALT/SGPT) 14, Alkaline Phosphatase 119, C-Reactive Protein High Sensitivity 0.74H, Total Protein 6.0L, Albumin 3.3 Assessment/Plan Assessment and Plan REVISION LEFT tkr S/P EXPLANTATION OF HARDWARE FOR INFECTION AND NOW WITH REVISION AFTER ANTIBIOTIC BEADS Leiden V factor chronically anticoagulated Onychomycosis s/p debridement DPM Hammer toes OA of the C and L spine s/p spinal surgery remote OA of the left shoulder RLS OAB Diastolic CHF compensated Anemia HX of DVT/PE Valvular HT D Nocturnal resp insuff on 02 at Allergic rhinitis Plan Continue PT/OT Recheck INR in AM Fax todays results as per above to ID Team Conference tomorrow Co-Morbidities that are continuing to impact the rehab process: (include details ) MYLA BIRCH MD Dec 30, 2017 08:13
--- NOTE | 2017-12-30 11:34 | Occupational Ther Daily Note ---
OT Current Status-Daily Note Subjective Pt stated that the car ride to the Dr yesterday was a little hard, but that they did take several rest stops so that she could walk. Appearance Pt in recliner, alert, and willing to work with OT. Mental Status/Objective Patient Orientation: Person, Place, Time, Situation Functional [place] Measure 0=Not Assessed/NA 4=Minimal Assistance 1=Total Assistance 5=Supervision or Setup 2=Maximal Assistance 6=Modified [place] 3=Moderate Assistance 7=Complete [place] ADL-Treatment Functional [place] Measure 0=Not Assessed/NA 4=Minimal Assistance 1=Total Assistance 5=Supervision or Setup 2=Maximal Assistance 6=Modified [place] 3=Moderate Assistance 7=Complete IndependenceIRFPAI Quality Coding Scale 6 Independent with activity with or without an assistive device 5 Patient requires set up or clean up by helper. Patient completes activity by themselves 4 Supervision or touching assist (CGA). [place] provide cues , steadying assist 3 The helper provides less than half the effort to complete the activity 2 The helper provides more than half the effort to complete the activity 1 Dependent. The helper does all the effort to complete an activity 7 Patient refused to complete or attempt activity 9 The patient did not perform the activity before the current illness or injury 88 Not attempted due to Medical conditions or safety concerns Grooming (FIM): 6 (See note below. ) Transfers (B, C, W/C) (FIM): 4 (See note below. ) Toilet/Commode Transfer (FIM): 5 (See note below. ) Pt transferred from sit recliner to stand at walker with SBA. Pt ambulated to bathroom with CGA. Pt brushed hair with long handled brush in chair at sink. Pt ambulated to therapy kitchen with CGA to participate in cooking activity. Pt transferred from stand at walker to sit in chair at table with SBA. Pt read recipe and assembled ingredients with setup into louis. Pt transferred from sit at chair to stand at walker with CGA. Pt ambulated to stove with CGA. Pt participated with stirring ingredients in louis while standing at stove with SBA. Pt required several rest breaks. Pt transferred from stand at walker to sit in chair with SBA during each rest break. Pt able to read recipe, stir ingredients , measure and pour ingredients into louis appropriately. OT assisted with task which required moving hot louis to sink of cool water, "beating" of the ingredients to thicken, pouring final batch of ingredients into cooking dish for cooling, and moving dish into refrigerator. Pt ambulated to room with CGA. Pt transferred from stand at walker to sit in chair with SBA. Pt brushed teeth in chair at sink, MOD I. Pt stated needing to use the restroom. Pt transferred from sit at chair to stand with use of grabbars with SBA. Pt able to pull down pants and undergarments and sit on toilet with SBA. Pt was needing a few minutes for toileting. Pt instructed to use call light when finished. All needs met. Education OT Patient Education: Energy conservation, Modified ADL techniques, Progress toward Goal/Update tx plan, Purpose of tx/functional activities, Reviewed precautions, Rehab process, Safety issues, Transfer techniques, Use of adapted equipment Teaching Recipient: Patient Teaching Methods: Demonstration, Discussion Response to Teaching: Verbalize Understanding, Return Demonstration OT Short Term Goals Short Term Goals Time Frame: Dec 23, 2017 Grooming(FIM): 5 Lower Body Dressing(FIM): 4 Transfers (B,C,W/C) (FIM): 4 (met) Toilet/Commode Transfer(FIM): 4 Additional Short Term Goals: 1-Demonstrate ADL Tasks, 2-Verbalize Understanding , 3-ImproveStrength/Ricardo 1=Demonstrate adherence to instructed precautions during ADL tasks. 2=Patient will verbalize/demonstrate understanding of assistive devices/ modifications for ADL. 3=Patient will improve strength/tolerance for activity to enable patient to perform ADL's. OT Custodial Goals Latent Fingerprint Examiner Goals Time Frame: Jan 06, 2018 Eating (FIM): 6 Eating (QC): 6 Groomin Oral Hygiene (QC): 6 Bathing(FIM): 4 Shower/Bathe Self (QC): 4 Upper Body Dressing(FIM): 5 Upper Body Dressing (QC): 5 Lower Body Dressing(FIM): 4 (CGA) Lower Body Dressing (QC): 4 On/Off Footwear (QC): 5 Toileting(FIM): 5 Toileting Hygiene (QC): 5 Toilet/Commode Transfer(FIM): 5 Toilet/Commode Transfer (QC): 5 Shower Transfer(FIM): 4 Additional Goals: 1-Demonstrate ADL Tasks, 2-Verbalize Understanding, 3- ImproveStrength/Ricardo 1=Demonstrate adherence to instructed precautions during ADL tasks. 2=Patient will verbalize/demonstrate understanding of assistive devices/ modifications for ADL. 3=Patient will improve strength/tolerance for activity to enable patient to perform ADL's. OT Education/Plan Problem List/Assessment Assessment: Decreased Activ Tolerance, Decreased UE Strength, Impaired I ADL's , Impaired Self-Care Skills, Restricted Funct UE ROM Discharge Recommendations Plan/Recommendations: Continue POC Therapy D/C Recommendations: Home w/ Family Support, Occupational Therapy Home Care Treatment Plan/Plan of Care Treatment,Training & Education: Yes Patient would benefit from OT for education, treatment and training to promote independence in ADL's, mobility, safety and/or upper extremity function for ADL' s. Plan of Care: ADL Retraining, Functional Mobility, Group Exercise/Act as Ind, UE Funct Exercise/Act Treatment Duration: Jan 06, 2018 Frequency: At least 5 of 7 days/Wk (IRF) Estimated Hrs Per Day: 1.5 hours per day Agreement: Yes Rehab Potential: Fair Time/GCodes Start Time: 09:00 Stop Time: 10:15 Total Time Billed (hr/min): 75 Billed Treatment Time 1, ADL x 75 minutes. SHAKIRA DOE OT Dec 30, 2017 11:34
--- NOTE | 2017-12-30 12:58 | Physical Therapy Daily Note ---
PT Daily Note-Current Subjective Pt sitting in recliner upon arrival. Pt agrees to PT. Pain Numeric Pain Scale: 4 Location: Left Location Body Site: Knee Pain Description: Ache, Tightness Mental Status Patient Orientation: Person, Place, Time, Situation Transfers Functional [place] Measure 0=Not Assessed/NA 4=Minimal Assistance 1=Total Assistance 5=Supervision or Setup 2=Maximal Assistance 6=Modified [place] 3=Moderate Assistance 7=Complete IndependenceIRFPAI Quality Coding Scale 6 Independent with activity with or without an assistive device 5 Patient requires set up or clean up by helper. Patient completes activity by themselves 4 Supervision or touching assist (CGA). [place] provide cues , steadying assist 3 The helper provides less than half the effort to complete the activity 2 The helper provides more than half the effort to complete the activity 1 Dependent. The helper does all the effort to complete an activity 7 Patient refused to complete or attempt activity 9 The patient did not perform the activity before the current illness or injury 88 Not attempted due to Medical conditions or safety concerns Scootin Sit to/from Stand: 5 Sit to Stand (QC): 5 Weight Bearing Right Lower Extremity: Right Full Weight Bearing Left Lower Extremity: Left Weight Bearing/Tolerated Gait Training Does the Patient Walk?: Yes Distance (FIM): 3=150 ft Distance: 175' Walk 10 feet (QC): 5 Walk 50 ft with 2 Turns(QC): 5 Walk 150 ft (QC): 5 Gait Level of Assist: 5 Gait Persons Needed: 1 Gait Assistive Device: FWW Pt walks with flexed L knee but better after NuStep & massage to strength out muscles. Exercises Seated Therapy Exercises: Ankle pumps, Long arc quads, Hip flexion, Kicking activity Seated Reps: 15 NuStep Minutes: 15 NuStep Workload: 4 Treatments Pt transfers from recliner to standing using FWW at SBA. Pt ambulates in hallway to Therapy Gym using FWW at close SBA. Pt uses NuStep for 15m at WL 4 followed by short rest. Pt completes Seated Ex then needs to return to room to use restroom before resting in recliner. WATER TAXI FERRY OPERATOR finishes tx with massage of L knee both incisional & behind knee to break up scar tissue. Pt has all needs met at end of tx. Assessment Current Status: Good Progress Pt stiffens after sitting in recliner and needs to stretch BLE out on NuStep and have massage break up scar tissue to see better ambulation. PT Short Term Goals Short Term Goals Time Frame: Dec 23, 2017 Transfers (B,C,W/C) (FIM): 4 (met) Gait (FIM): 2 (met) Gait Distance Comment: 60' Gait Level of Assist: 4 Gait Assistive Device: FWW Wheelchair Distance: 100' PT Assisted Goals Freight Air Brake Fitter Goals PT Freight Air Brake Fitter Goals Time Frame: Jan 06, 2018 Transfers (B,C,W/C) (FIM): 4 Sit to Lying (QC): 3 Lying-Sitting on Side/Bed(QC): 4 Sit to Stand (QC): 4 Rollin Roll Left to Right (QC): 4 Chair/Bjz-wu-Lfuza Xfer(QC): 4 Car Transfer (QC): 4 Gait (FIM): 2 Distance: 100' Walk 10 feet (QC): 4 Walk 10ft-Uneven Surface(QC): 4 Walk 50ft with 2 Turns (QC): 4 Gait Level of Assist: 5 Gait Assistive Device: FWW PT Plan Problem List Problem List: Activity Tolerance, Functional Strength, Gait Treatment/Plan Treatment Plan: Continue Plan of Care Treatment Plan: Bed Mobility, Concurrent Therapy, Education, Functional Activity Ricardo, Functional Strength, Group Therapy, Gait, Safety, Therapeutic Exercise, Transfers Treatment Duration: Jan 06, 2018 Frequency: At least 5 of 7 days/Wk (IRF) Estimated Hrs Per Day: 1.5 hours per day Patient and/or Family Agrees t: Yes Safety Risks/Education Patient Education: Gait Training, Transfer Techniques, Correct Positioning, Safety Issues Teaching Recipient: Patient Teaching Methods: Discussion Response to Teaching: Verbalize Understanding Time/GCodes Time In: 1115 Time Out: 1215 Total Billed Treatment Time: 60 Total Billed Treatment 1, GT (20m), EX x2 (25m) & FA (15m) G Codes Necessary: LUIS Mckinney WATER TAXI FERRY OPERATOR Dec 30, 2017 12:58
[2017-12-30] MEDS: BUMETANIDE 1 MG (BUMEX) TAB PO SCH (13:05)
--- NOTE | 2017-12-30 14:50 | Occupational Ther Daily Note ---
OT Current Status-Daily Note Subjective Pt said she enjoyed cooking and hopes we can do it again next week. Appearance Pt in asleep in recliner, OT woke her as I entered room. Pt willing to work with OT. Mental Status/Objective Patient Orientation: Person, Place, Time, Situation Functional [place] Measure 0=Not Assessed/NA 4=Minimal Assistance 1=Total Assistance 5=Supervision or Setup 2=Maximal Assistance 6=Modified [place] 3=Moderate Assistance 7=Complete [place] ADL-Treatment Functional [place] Measure 0=Not Assessed/NA 4=Minimal Assistance 1=Total Assistance 5=Supervision or Setup 2=Maximal Assistance 6=Modified [place] 3=Moderate Assistance 7=Complete IndependenceIRFPAI Quality Coding Scale 6 Independent with activity with or without an assistive device 5 Patient requires set up or clean up by helper. Patient completes activity by themselves 4 Supervision or touching assist (CGA). [place] provide cues , steadying assist 3 The helper provides less than half the effort to complete the activity 2 The helper provides more than half the effort to complete the activity 1 Dependent. The helper does all the effort to complete an activity 7 Patient refused to complete or attempt activity 9 The patient did not perform the activity before the current illness or injury 88 Not attempted due to Medical conditions or safety concerns Transfers (B, C, W/C) (FIM): 4 (See note below.) Other Treatment Pt transferred from sitting in recliner to stand at walker with SBA. Pt ambulates to therapy dining area with CGA. Pt transfers from stand at walker to sit in chair with SBA. Pt cuts fudge made in earlier session with knife with setup. Pt able to cut fudge into relatively even 1" pieces. Pt able to scoop out pieces of fudge and place on serving papers. PT session immediately to follow OT. PT arrived at end of session and took over therapy. All needs met. Education OT Patient Education: Correct positioning, Energy conservation, Modified ADL techniques, Progress toward Goal/Update tx plan, Purpose of tx/functional activities, Reviewed precautions, Rehab process, Transfer techniques Teaching Recipient: Patient Teaching Methods: Demonstration, Discussion Response to Teaching: Verbalize Understanding, Return Demonstration OT Short Term Goals Short Term Goals Time Frame: Dec 23, 2017 Grooming(FIM): 5 Lower Body Dressing(FIM): 4 Transfers (B,C,W/C) (FIM): 4 (met) Toilet/Commode Transfer(FIM): 4 Additional Short Term Goals: 1-Demonstrate ADL Tasks, 2-Verbalize Understanding , 3-ImproveStrength/Ricardo 1=Demonstrate adherence to instructed precautions during ADL tasks. 2=Patient will verbalize/demonstrate understanding of assistive devices/ modifications for ADL. 3=Patient will improve strength/tolerance for activity to enable patient to perform ADL's. OT Penitentiary Goals Penitentiary Goals Time Frame: Jan 06, 2018 Eating (FIM): 6 Eating (QC): 6 Groomin Oral Hygiene (QC): 6 Bathing(FIM): 4 Shower/Bathe Self (QC): 4 Upper Body Dressing(FIM): 5 Upper Body Dressing (QC): 5 Lower Body Dressing(FIM): 4 (CGA) Lower Body Dressing (QC): 4 On/Off Footwear (QC): 5 Toileting(FIM): 5 Toileting Hygiene (QC): 5 Toilet/Commode Transfer(FIM): 5 Toilet/Commode Transfer (QC): 5 Shower Transfer(FIM): 4 Additional Goals: 1-Demonstrate ADL Tasks, 2-Verbalize Understanding, 3- ImproveStrength/Ricardo 1=Demonstrate adherence to instructed precautions during ADL tasks. 2=Patient will verbalize/demonstrate understanding of assistive devices/ modifications for ADL. 3=Patient will improve strength/tolerance for activity to enable patient to perform ADL's. OT Education/Plan Problem List/Assessment Assessment: Decreased Activ Tolerance, Decreased Safety Aware, Decreased UE Strength, Impaired I ADL's, Impaired Self-Care Skills, Restricted Funct UE ROM Discharge Recommendations Plan/Recommendations: Continue POC Treatment Plan/Plan of Care Treatment,Training & Education: Yes Patient would benefit from OT for education, treatment and training to promote independence in ADL's, mobility, safety and/or upper extremity function for ADL' s. Plan of Care: ADL Retraining, Functional Mobility, Group Exercise/Act as Ind, UE Funct Exercise/Act Treatment Duration: Jan 06, 2018 Frequency: At least 5 of 7 days/Wk (IRF) Estimated Hrs Per Day: 1.5 hours per day Agreement: Yes Rehab Potential: Fair Time/GCodes Start Time: 13:45 Stop Time: 14:00 Total Time Billed (hr/min): 15 Billed Treatment Time 1, ADL x 15 minutes. TEGAN HOOD OT Dec 30, 2017 14:50
--- NOTE | 2017-12-30 15:47 | Physical Therapy Daily Note ---
PT Daily Note-Current Subjective Pt sitting in recliner upon arrival. Pt agrees to PT. Pain Numeric Pain Scale: 4 Location: Incisional, Left Location Body Site: Knee Pain Description: Ache Mental Status Patient Orientation: Person, Place, Time, Situation Transfers Functional [place] Measure 0=Not Assessed/NA 4=Minimal Assistance 1=Total Assistance 5=Supervision or Setup 2=Maximal Assistance 6=Modified [place] 3=Moderate Assistance 7=Complete IndependenceIRFPAI Quality Coding Scale 6 Independent with activity with or without an assistive device 5 Patient requires set up or clean up by helper. Patient completes activity by themselves 4 Supervision or touching assist (CGA). [place] provide cues , steadying assist 3 The helper provides less than half the effort to complete the activity 2 The helper provides more than half the effort to complete the activity 1 Dependent. The helper does all the effort to complete an activity 7 Patient refused to complete or attempt activity 9 The patient did not perform the activity before the current illness or injury 88 Not attempted due to Medical conditions or safety concerns Scootin Sit to/from Stand: 5 Sit to Stand (QC): 5 Weight Bearing Right Lower Extremity: Right Full Weight Bearing Left Lower Extremity: Left Weight Bearing/Tolerated Gait Training Does the Patient Walk?: Yes Distance (FIM): 3=150 ft Distance: 150' Walk 10 feet (QC): 5 Walk 50 ft with 2 Turns(QC): 5 Walk 150 ft (QC): 5 Gait Level of Assist: 5 Gait Persons Needed: 1 Gait Assistive Device: FWW Wheelchair Training Does the Pt Use a Wheelchair?: No Treatments Pt transfers from recliner to standing using FWW at SBA. Pt ambulates in hallway using FWW at close SBA. BLOCKMAN again gives massage to break up scar tissue around L knee. Pt then completes a few Seated Ex to compare to before massage. Pt returns to room use restroom and rest in recliner at end of tx. Pt has all needs met. Assessment Current Status: Good Progress Pt continues to demonstrate stiffness after sitting in recliner for extended time. PT Short Term Goals Short Term Goals Time Frame: Dec 23, 2017 Transfers (B,C,W/C) (FIM): 4 (met) Gait (FIM): 2 (met) Gait Distance Comment: 60' Gait Level of Assist: 4 Gait Assistive Device: FWW Wheelchair Distance: 100' PT Artificial Pearl Maker Goals Artificial Pearl Maker Goals PT Mcc Goals Time Frame: Jan 06, 2018 Transfers (B,C,W/C) (FIM): 4 Sit to Lying (QC): 3 Lying-Sitting on Side/Bed(QC): 4 Sit to Stand (QC): 4 Rollin Roll Left to Right (QC): 4 Chair/Vhl-sc-Agdse Xfer(QC): 4 Car Transfer (QC): 4 Gait (FIM): 2 Distance: 100' Walk 10 feet (QC): 4 Walk 10ft-Uneven Surface(QC): 4 Walk 50ft with 2 Turns (QC): 4 Gait Level of Assist: 5 Gait Assistive Device: FWW PT Plan Problem List Problem List: Activity Tolerance, Functional Strength, Gait Treatment/Plan Treatment Plan: Continue Plan of Care Treatment Plan: Bed Mobility, Concurrent Therapy, Education, Functional Activity Ricardo, Functional Strength, Group Therapy, Gait, Safety, Therapeutic Exercise, Transfers Treatment Duration: Jan 06, 2018 Frequency: At least 5 of 7 days/Wk (IRF) Estimated Hrs Per Day: 1.5 hours per day Patient and/or Family Agrees t: Yes Safety Risks/Education Patient Education: Gait Training, Correct Positioning, Safety Issues Teaching Recipient: Patient Teaching Methods: Discussion Response to Teaching: Verbalize Understanding Time/GCodes Time In: 1405 Time Out: 1435 Total Billed Treatment Time: 30 Total Billed Treatment 1, GT (15m) & FA (15m) G Codes Necessary: LUIS Mckinney BLOCKMAN Dec 30, 2017 15:46
[2017-12-30 15:59] VITALS: BP 152/89
[2017-12-30] MEDS: warFARin 7.5 MG (COUMADIN) TAB PO SCH (17:40)
[2017-12-30] MEDS: TOLTERODINE LA 2 MG (DETROL LA) CAP PO SCH (20:06)
[2017-12-31 04:52] VITALS: BP 158/88
[2017-12-31 05:16] LABS: INR 2.2 (0.8-1.4); PROTHROMBIN TIME PATIENT 24.6 SEC (12.2-14.7)
[2017-12-31] MEDS: KCL 20 MEQ TAB (K-DUR) PO SCH (06:45)
--- NOTE | 2017-12-31 08:13 | PM & R (SOAP) Progress Note ---
Subjective This was a face to face visit with the patient. Date Seen by Provider: Dec 31, 2017 Time Seen by Provider: 07:50 Subjective/Events-last exam Patient was seen in her room this AM Wishes refill on Minocin which she is providing herself.Patient SBA for transfers Date Identified: Dec 31, 2017 Time Identified: 07:50 Medication Intervention: Minocin refill Review of Systems Musculoskeletal: leg pain Neurological: Weakness Objective Physician Exam Last Set of Vital Signs Vital Signs Date Time Temp Pulse Resp B/P (MAP) Pulse Ox O2 Delivery O2 Flow Rate FiO2 12/31/17 04:52 97.8 67 18 158/88 (111) 95 Room Air 12/28/17 06:02 2.00 Capillary Refill : Less Than 3 Seconds I&O Intake and Output 12/31/17 00:00 Intake Total 2100 ml Balance 2100 ml Intake Oral 2100 ml # Voids 6 General: Alert, Oriented X3, Cooperative, No Acute Distress HEENT: Atraumatic, PERRLA, EOMI, Mucous Memb Moist/[place] Neck: Supple, No JVD Lungs: Clear to Auscultation Heart: Regular Rate Abdomen: Normal Bowel Sounds, Soft, No Tenderness Extremities: Other (Left calf tight but non tender Incision healing well Limited AROM left shoulder due to OA) Neuro: Sensation Intact, Other (Generalized weakaness more so left shoulder and left knee) Psych/Mental Status: Mental Status NL, Other (cognition intact) Results Lab Data Laboratory Tests 12/30/17 04:20: White Blood Count 7.3, Red Blood Count 3.50L, Hemoglobin 10.0L, Hematocrit 33L, Mean Corpuscular Volume 93, Mean Corpuscular Hemoglobin 29, Mean Corpuscular Hemoglobin Concent 31L, Red Cell Distribution Width 15.7H, Platelet Count 282, Mean Platelet Volume 10.0, Neutrophils (%) (Auto) 46, Lymphocytes (%) (Auto) 41 , Monocytes (%) (Auto) 8, Eosinophils (%) (Auto) 4, Basophils (%) (Auto) 0, Neutrophils # (Auto) 3.4, Lymphocytes # (Auto) 3.0, Monocytes # (Auto) 0.6, Eosinophils # (Auto) 0.3, Basophils # (Auto) 0.0, Erythrocyte Sedimentation Rate 23 12/30/17 04:50: Sodium Level 145, Potassium Level 4.1, Chloride Level 109H, Carbon Dioxide Level 26, Anion Gap 10, Blood Urea Nitrogen 26H, Creatinine 0.66, Estimat Glomerular Filtration Rate > 60, BUN/Creatinine Ratio 39, Glucose Level 86, Calcium Level 8.9, Corrected Calcium 9.5, Total Bilirubin 0.2, Aspartate Amino Transf (AST/SGOT) 14, Alanine Aminotransferase (ALT/SGPT) 14, Alkaline Phosphatase 119, C-Reactive Protein High Sensitivity 0.74H, Total Protein 6.0L, Albumin 3.3 12/31/17 04:55: Prothrombin Time 24.6H, INR Comment 2.2H Assessment/Plan Assessment and Plan 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
[2017-12-31] MEDS: predniSONE 5 MG TAB PO SCH (08:24)
[2017-12-31] MEDS: HYDROcodone/APAP 5 MG/325 MG (LORTAB) TAB PO PRN ×3 (08:24→22:50)
[2017-12-31] MEDS: PRAMIPEXOLE 0.125 MG (MIRAPEX) TABLET PO SCH ×2 (08:24→20:15)
[2017-12-31] MEDS: LORATADINE (CLARITIN) 10 MG TAB PO SCH (08:24)
[2017-12-31] MEDS: GABAPENTIN 300 MG (NEURONTIN) CAP PO SCH ×4 (08:24→20:15)
[2017-12-31] MEDS: MAGNESIUM OXIDE (MAG-OX)400 MG TAB PO SCH (08:24)
[2017-12-31] MEDS: MINOCYCLINE HCL 100 MG PO SCH ×2 (08:26→20:15)
[2017-12-31] MEDS: FLUTICASONE NASAL SPRAY (FLONASE) 16 GM BTL NS SCH ×2 (08:27→20:15)
--- NOTE | 2017-12-31 11:25 | Physical Therapy Daily Note ---
PT Daily Note-Current Subjective Pt sitting in recliner upon arrival. Pt agrees to PT. Pain Numeric Pain Scale: 5-Moderate Pain Location: Incisional, Left Location Body Site: Knee Pain Description: Ache Mental Status Patient Orientation: Person, Place, Time, Situation Transfers Functional [place] Measure 0=Not Assessed/NA 4=Minimal Assistance 1=Total Assistance 5=Supervision or Setup 2=Maximal Assistance 6=Modified [place] 3=Moderate Assistance 7=Complete IndependenceIRFPAI Quality Coding Scale 6 Independent with activity with or without an assistive device 5 Patient requires set up or clean up by helper. Patient completes activity by themselves 4 Supervision or touching assist (CGA). [place] provide cues , steadying assist 3 The helper provides less than half the effort to complete the activity 2 The helper provides more than half the effort to complete the activity 1 Dependent. The helper does all the effort to complete an activity 7 Patient refused to complete or attempt activity 9 The patient did not perform the activity before the current illness or injury 88 Not attempted due to Medical conditions or safety concerns Scootin Sit to/from Stand: 5 Sit to Stand (QC): 5 Weight Bearing Right Lower Extremity: Right Full Weight Bearing Left Lower Extremity: Left Weight Bearing/Tolerated Gait Training Does the Patient Walk?: Yes Distance (FIM): 3=150 ft Distance: 175' Walk 10 feet (QC): 5 Walk 50 ft with 2 Turns(QC): 5 Walk 150 ft (QC): 5 Gait Level of Assist: 5 Gait Persons Needed: 1 Gait Assistive Device: FWW Pt ambulates with stiff L knee and slight antalgic gait pattern. Pt improves after massage to break up scar tissue. Wheelchair Training Does the Pt Use a Wheelchair?: No Exercises Seated Therapy Exercises: Ankle pumps, Long arc quads, Hip flexion, Kicking activity Seated Reps: 15 Treatments Pt given pain med at beginning of tx. Pt discusses likelihood of discharge soon due to Weekly ARU Mtg this afternoon. Pt reports having all AD & equipment needed. Pt transfers from recliner to standing using FWW at [facility]. Pt uses restroom before leaving for tx. DIGITAL MEDIA SPECIALIST massages L knee incision site & back of knee to assist with breaking up scar tissue to aide with ambulation. Pt completes Seated Ex before returning to room at end of tx. Pt rests in recliner with all needs met. Assessment Current Status: Good Progress Pt continues to push self to make progress for discharge down the road. PT Short Term Goals Short Term Goals Time Frame: Dec 23, 2017 Transfers (B,C,W/C) (FIM): 4 (met) Gait (FIM): 2 (met) Gait Distance Comment: 60' Gait Level of Assist: 4 Gait Assistive Device: FWW Wheelchair Distance: 100' PT Senior Living Goals A Class Lineman Goals PT A Class Lineman Goals Time Frame: Jan 06, 2018 Transfers (B,C,W/C) (FIM): 4 Sit to Lying (QC): 3 Lying-Sitting on Side/Bed(QC): 4 Sit to Stand (QC): 4 Rollin Roll Left to Right (QC): 4 Chair/Yse-vm-Ydrpy Xfer(QC): 4 Car Transfer (QC): 4 Gait (FIM): 2 Distance: 100' Walk 10 feet (QC): 4 Walk 10ft-Uneven Surface(QC): 4 Walk 50ft with 2 Turns (QC): 4 Gait Level of Assist: 5 Gait Assistive Device: FWW PT Plan Problem List Problem List: Activity Tolerance, Functional Strength, Gait Treatment/Plan Treatment Plan: Continue Plan of Care Treatment Plan: Bed Mobility, Concurrent Therapy, Education, Functional Activity Ricardo, Functional Strength, Group Therapy, Gait, Safety, Therapeutic Exercise, Transfers Treatment Duration: Jan 06, 2018 Frequency: At least 5 of 7 days/Wk (IRF) Estimated Hrs Per Day: 1.5 hours per day Patient and/or Family Agrees t: Yes Safety Risks/Education Patient Education: Gait Training, Correct Positioning, Safety Issues Teaching Recipient: Patient Teaching Methods: Discussion Response to Teaching: Verbalize Understanding Time/GCodes Time In: 800 Time Out: 900 Total Billed Treatment Time: 60 Total Billed Treatment 1, GT (20m), FA x2 (25m) & EX (15m) G Codes Necessary: LUIS Mckinney DIGITAL MEDIA SPECIALIST Dec 31, 2017 11:25
[2017-12-31] MEDS: BUMETANIDE 1 MG (BUMEX) TAB PO SCH (12:22)
--- NOTE | 2017-12-31 14:07 | Physical Therapy Daily Note ---
PT Daily Note-Current Subjective Pt sitting in recliner upon arrival. Pt agrees to PT. Pain Numeric Pain Scale: 5-Moderate Pain Location: Incisional, Left Location Body Site: Knee Pain Description: Ache, Tightness Mental Status Patient Orientation: Person, Place, Time, Situation Transfers Functional [place] Measure 0=Not Assessed/NA 4=Minimal Assistance 1=Total Assistance 5=Supervision or Setup 2=Maximal Assistance 6=Modified [place] 3=Moderate Assistance 7=Complete IndependenceIRFPAI Quality Coding Scale 6 Independent with activity with or without an assistive device 5 Patient requires set up or clean up by helper. Patient completes activity by themselves 4 Supervision or touching assist (CGA). [place] provide cues , steadying assist 3 The helper provides less than half the effort to complete the activity 2 The helper provides more than half the effort to complete the activity 1 Dependent. The helper does all the effort to complete an activity 7 Patient refused to complete or attempt activity 9 The patient did not perform the activity before the current illness or injury 88 Not attempted due to Medical conditions or safety concerns Sit to/from Stand: 5 Sit to Stand (QC): 5 Weight Bearing Right Lower Extremity: Right Full Weight Bearing Left Lower Extremity: Left Weight Bearing/Tolerated Gait Training Does the Patient Walk?: Yes Distance (FIM): 3=150 ft Distance: 150' Walk 10 feet (QC): 5 Walk 50 ft with 2 Turns(QC): 5 Walk 150 ft (QC): 5 Gait Level of Assist: 5 Gait Persons Needed: 1 Gait Assistive Device: FWW Pt walks with stiff gait after sitting since previous tx. Wheelchair Training Does the Pt Use a Wheelchair?: No Exercises Seated Therapy Exercises: Ankle pumps, Long arc quads, Hip flexion, Kicking activity Seated Reps: 20 Treatments Pt transfers from recliner to standing using FWW at [facility]. Pt ambulates to Therapy Gym. PROJECT MANAGEMENT IT SPECIALIST gives massage to L knee at incisional site and back of knee for scar tissue break up. Pt completes Seated Ex at EOM. Pt returns to room to rest in recliner at end of tx with all needs met. Assessment Current Status: Good Progress Pt fatigues by end of tx. PT Short Term Goals Short Term Goals Time Frame: Dec 23, 2017 Transfers (B,C,W/C) (FIM): 4 (met) Gait (FIM): 2 (met) Gait Distance Comment: 60' Gait Level of Assist: 4 Gait Assistive Device: FWW Wheelchair Distance: 100' PT Fdc Goals Gas Engine Operator Generators Goals PT Fdc Goals Time Frame: Jan 06, 2018 Transfers (B,C,W/C) (FIM): 4 Sit to Lying (QC): 3 Lying-Sitting on Side/Bed(QC): 4 Sit to Stand (QC): 4 Rollin Roll Left to Right (QC): 4 Chair/Obe-ey-Gdaar Xfer(QC): 4 Car Transfer (QC): 4 Gait (FIM): 2 Distance: 100' Walk 10 feet (QC): 4 Walk 10ft-Uneven Surface(QC): 4 Walk 50ft with 2 Turns (QC): 4 Gait Level of Assist: 5 Gait Assistive Device: FWW PT Plan Problem List Problem List: Activity Tolerance, Functional Strength, Gait Treatment/Plan Treatment Plan: Continue Plan of Care Treatment Plan: Bed Mobility, Concurrent Therapy, Education, Functional Activity Ricardo, Functional Strength, Group Therapy, Gait, Safety, Therapeutic Exercise, Transfers Treatment Duration: Jan 06, 2018 Frequency: At least 5 of 7 days/Wk (IRF) Estimated Hrs Per Day: 1.5 hours per day Patient and/or Family Agrees t: Yes Safety Risks/Education Patient Education: Gait Training, Correct Positioning, Safety Issues Teaching Recipient: Patient Teaching Methods: Discussion Response to Teaching: Verbalize Understanding Time/GCodes Time In: 1300 Time Out: 1330 Total Billed Treatment Time: 30 Total Billed Treatment 1, GT (15m), EX (15m) G Codes Necessary: LUIS Mckinney PROJECT MANAGEMENT IT SPECIALIST Dec 31, 2017 14:07
--- NOTE | 2017-12-31 15:17 | Occupational Ther Daily Note ---
OT Current Status-Daily Note Subjective Pt said she was feeling really good today. Appearance Pt in recliner, alert, and willing to work with OT. Mental Status/Objective Patient Orientation: Person, Place, Time, Situation Functional [place] Measure 0=Not Assessed/NA 4=Minimal Assistance 1=Total Assistance 5=Supervision or Setup 2=Maximal Assistance 6=Modified [place] 3=Moderate Assistance 7=Complete [place] ADL-Treatment Functional [place] Measure 0=Not Assessed/NA 4=Minimal Assistance 1=Total Assistance 5=Supervision or Setup 2=Maximal Assistance 6=Modified [place] 3=Moderate Assistance 7=Complete IndependenceIRFPAI Quality Coding Scale 6 Independent with activity with or without an assistive device 5 Patient requires set up or clean up by helper. Patient completes activity by themselves 4 Supervision or touching assist (CGA). [place] provide cues , steadying assist 3 The helper provides less than half the effort to complete the activity 2 The helper provides more than half the effort to complete the activity 1 Dependent. The helper does all the effort to complete an activity 7 Patient refused to complete or attempt activity 9 The patient did not perform the activity before the current illness or injury 88 Not attempted due to Medical conditions or safety concerns Grooming (FIM): 4 (See note below. ) Bathing (FIM): 4 (See note below. ) Bathing Location: L Arm, R Arm, L Upper Leg, R Upper Leg, L Lower Leg ( including foot), R Lower Leg (including foot), Chest, Abdomen, Perineal Area Upper Body (FIM): 4 (See note below. ) Lower Body Dressing (FIM): 3 (See note below. ) Toileting (FIM): 5 (See note below. ) Transfers (B, C, W/C) (FIM): 4 (See note below. ) Toilet/Commode Transfer (FIM): 5 (See note below. ) Shower Transfer(FIM): 5 (See note below. ) Pt transferred sit in recliner to stand at FWW with SBA. Pt ambulated to bathroom w/CGA. Pt transferred from FWW stand to sit on seat riser on toilet with SBA. Pt able to pull down pants and undergarments and doff them while toileting. Pt able to cleanse self after toileting. Pt able to transfer from sit on seat riser to stand at FWW with SBA. Pt ambulates to shower bench with CGA. Pt able to doff shirt MOD I. Pt participates in shower, able to wash all body parts requiring assistance only to cleanse sanjuana area, using grab bars to stand while washing sanjuana area. Pt utilizes shower bench, long handled sponge, hand held shower sprayer, and grab bars during showering activity. Pt able to apply lotion to body using long handled applicator. Pt requires assistance to don bra, but able to don shirt MOD I. Pt requires assistance to thread undergarments and pants even with use of AE. Pt required assistance to pull undergarments and pants up over hips. Pt able to don slip on shoes. Pt transfers from sit at shower bench to stand with grab bars to sit in chair with CGA. OT pushes chair up to sink for grooming activities. Pt brushed teeth and hair with MOD I. Pt washed hair in shower and during drying hair required assistance drying the back of her hair due to limited ROM of bilateral shoulder flexion and lack of strength to hold arms up over head for extended period of time. Pt transferred from sit in chair to stand at FWW with SBA. Pt ambulated to therapy laundry room with CGA to put clothing into washing machine. Pt ambulated back to Pt's room with CGA. Pt transferred from FWW stand to sit in wc with SBA. Pt propelled self to sink to finish grooming activities, this reaching the end of our session. All needs met. Education OT Patient Education: Energy conservation, Modified ADL techniques, Progress toward Goal/Update tx plan, Purpose of tx/functional activities, Reviewed precautions, Rehab process, Transfer techniques, Use of adapted equipment, W/C management Teaching Recipient: Patient Teaching Methods: Demonstration, Discussion Response to Teaching: Verbalize Understanding, Return Demonstration OT Short Term Goals Short Term Goals Time Frame: Dec 23, 2017 Grooming(FIM): 5 Lower Body Dressing(FIM): 4 Transfers (B,C,W/C) (FIM): 4 (met) Toilet/Commode Transfer(FIM): 4 Additional Short Term Goals: 1-Demonstrate ADL Tasks, 2-Verbalize Understanding , 3-ImproveStrength/Ricardo 1=Demonstrate adherence to instructed precautions during ADL tasks. 2=Patient will verbalize/demonstrate understanding of assistive devices/ modifications for ADL. 3=Patient will improve strength/tolerance for activity to enable patient to perform ADL's. OT Longterm Goals Longterm Goals Time Frame: Jan 06, 2018 Eating (FIM): 6 Eating (QC): 6 Groomin Oral Hygiene (QC): 6 Bathing(FIM): 4 Shower/Bathe Self (QC): 4 Upper Body Dressing(FIM): 5 Upper Body Dressing (QC): 5 Lower Body Dressing(FIM): 4 (CGA) Lower Body Dressing (QC): 4 On/Off Footwear (QC): 5 Toileting(FIM): 5 Toileting Hygiene (QC): 5 Toilet/Commode Transfer(FIM): 5 Toilet/Commode Transfer (QC): 5 Shower Transfer(FIM): 4 Additional Goals: 1-Demonstrate ADL Tasks, 2-Verbalize Understanding, 3- ImproveStrength/Ricardo 1=Demonstrate adherence to instructed precautions during ADL tasks. 2=Patient will verbalize/demonstrate understanding of assistive devices/ modifications for ADL. 3=Patient will improve strength/tolerance for activity to enable patient to perform ADL's. OT Education/Plan Problem List/Assessment Assessment: Decreased Activ Tolerance, Decreased UE Strength, Impaired I ADL's , Impaired Self-Care Skills Discharge Recommendations Plan/Recommendations: Continue POC Therapy D/C Recommendations: Home w/ Family Support, Occupational Therapy Home Care Equpiment Recommendations-D/C: Hip Kit Treatment Plan/Plan of Care Treatment,Training & Education: Yes Patient would benefit from OT for education, treatment and training to promote independence in ADL's, mobility, safety and/or upper extremity function for ADL' s. Plan of Care: ADL Retraining, Functional Mobility, Group Exercise/Act as Ind, UE Funct Exercise/Act Treatment Duration: Jan 06, 2018 Frequency: At least 5 of 7 days/Wk (IRF) Estimated Hrs Per Day: 1.5 hours per day Agreement: Yes Rehab Potential: Fair Time/GCodes Start Time: 09:00 Stop Time: 10:30 Total Time Billed (hr/min): 90 Billed Treatment Time 1, ADL x 90 minutes. SHAKIRA DOE OT Dec 31, 2017 15:17
[2017-12-31] MEDS: warFARin 7.5 MG (COUMADIN) TAB PO SCH (17:16)
[2017-12-31 18:00] VITALS: BP 156/92
[2017-12-31] MEDS: TOLTERODINE LA 2 MG (DETROL LA) CAP PO SCH (20:15)
[2018-01-01] MEDS: KCL 20 MEQ TAB (K-DUR) PO SCH (06:15)
[2018-01-01 06:45] VITALS: BP 137/81
[2018-01-01] MEDS: MAGNESIUM OXIDE (MAG-OX)400 MG TAB PO SCH (08:34)
[2018-01-01] MEDS: GABAPENTIN 300 MG (NEURONTIN) CAP PO SCH ×4 (08:34→21:01)
[2018-01-01] MEDS: LORATADINE (CLARITIN) 10 MG TAB PO SCH (08:34)
[2018-01-01] MEDS: predniSONE 5 MG TAB PO SCH (08:34)
[2018-01-01] MEDS: PRAMIPEXOLE 0.125 MG (MIRAPEX) TABLET PO SCH ×2 (08:35→21:01)
--- NOTE | 2018-01-01 09:06 | Occupational Ther Daily Note ---
OT Current Status-Daily Note Subjective No pain reported. Appearance Pt. finishing with PT. Agrees to work with OT. Mental Status/Objective Patient Orientation: Person, Place, Time, Situation Functional [place] Measure 0=Not Assessed/NA 4=Minimal Assistance 1=Total Assistance 5=Supervision or Setup 2=Maximal Assistance 6=Modified [place] 3=Moderate Assistance 7=Complete [place] ADL-Treatment Functional [place] Measure 0=Not Assessed/NA 4=Minimal Assistance 1=Total Assistance 5=Supervision or Setup 2=Maximal Assistance 6=Modified [place] 3=Moderate Assistance 7=Complete IndependenceIRFPAI Quality Coding Scale 6 Independent with activity with or without an assistive device 5 Patient requires set up or clean up by helper. Patient completes activity by themselves 4 Supervision or touching assist (CGA). [place] provide cues , steadying assist 3 The helper provides less than half the effort to complete the activity 2 The helper provides more than half the effort to complete the activity 1 Dependent. The helper does all the effort to complete an activity 7 Patient refused to complete or attempt activity 9 The patient did not perform the activity before the current illness or injury 88 Not attempted due to Medical conditions or safety concerns Grooming (FIM): 5 (Set up at sink to brush teeth and hair with adapted brush. Pt. also washes face and applies cream.) Oral Hygiene (QC): 5 Bathing (FIM): 4 (Pt. requires min assist in shower for rear sanjuana cleanse. Pt. able to wash all other parts with LH sponge.) Shower/Bathe Self (QC): 4 Upper Body (FIM): 4 (Pt. able to don shirt with Set up while seated on shower bench, but requires min assist to fasten bra.) Upper Body Dressing (QC): 4 Lower Body Dressing (FIM): 4 (Pt. able to don brief and pants over feet with AE and pull to thighs. Requires CGA in stance to don over hips. Pt. able to don slide on shoes with SBA.) Lower Body Dressing (QC): 4 On/Off Footwear (QC): 4 Toileting (FIM): 5 (SBA to toilet self while using LH toileting device.) Toileting Hygiene (QC): 4 Transfers (B, C, W/C) (FIM): 4 (SBA to transfer sit-stand with walker and to chair in bathroom. Pt. requires CGA to ambulate with walker in dining area due to fatigue.) Toilet/Commode Transfer (FIM): 5 Toilet Transfer (QC): 4 Shower Transfer(FIM): 4 Other Treatment After performing ADLs in bathroom, pt. agrees to ambulate in dining area for increased strengthening. Pt. ambulates approximately 100 feet with walker and CGA. Pt. requires increased time overall due to fatigue. Transfers back to chair in room with SBA and all needs are met. Education OT Patient Education: Correct positioning, Modified ADL techniques, Progress toward Goal/Update tx plan, Purpose of tx/functional activities, Reviewed precautions, Rehab process, Transfer techniques Teaching Recipient: Patient Teaching Methods: Demonstration, Discussion Response to Teaching: Verbalize Understanding, Return Demonstration OT Short Term Goals Short Term Goals Time Frame: Dec 23, 2017 Grooming(FIM): 5 Lower Body Dressing(FIM): 4 Transfers (B,C,W/C) (FIM): 4 (met) Toilet/Commode Transfer(FIM): 4 Additional Short Term Goals: 1-Demonstrate ADL Tasks, 2-Verbalize Understanding , 3-ImproveStrength/Ricardo 1=Demonstrate adherence to instructed precautions during ADL tasks. 2=Patient will verbalize/demonstrate understanding of assistive devices/ modifications for ADL. 3=Patient will improve strength/tolerance for activity to enable patient to perform ADL's. OT Mcfp Goals Mcfp Goals Time Frame: Jan 06, 2018 Eating (FIM): 6 Eating (QC): 6 Groomin Oral Hygiene (QC): 6 Bathing(FIM): 4 Shower/Bathe Self (QC): 4 Upper Body Dressing(FIM): 5 Upper Body Dressing (QC): 5 Lower Body Dressing(FIM): 4 (CGA) Lower Body Dressing (QC): 4 On/Off Footwear (QC): 5 Toileting(FIM): 5 Toileting Hygiene (QC): 5 Toilet/Commode Transfer(FIM): 5 Toilet/Commode Transfer (QC): 5 Shower Transfer(FIM): 4 Additional Goals: 1-Demonstrate ADL Tasks, 2-Verbalize Understanding, 3- ImproveStrength/Ricardo 1=Demonstrate adherence to instructed precautions during ADL tasks. 2=Patient will verbalize/demonstrate understanding of assistive devices/ modifications for ADL. 3=Patient will improve strength/tolerance for activity to enable patient to perform ADL's. OT Education/Plan Problem List/Assessment Assessment: Decreased Activ Tolerance, Impaired Coordination, Impaired I ADL's , Impaired Self-Care Skills, Restricted Funct UE ROM Discharge Recommendations Plan/Recommendations: Continue POC Therapy D/C Recommendations: Home w/ Family Support, Occupational Therapy Home Care Treatment Plan/Plan of Care Treatment,Training & Education: Yes Patient would benefit from OT for education, treatment and training to promote independence in ADL's, mobility, safety and/or upper extremity function for ADL' s. Plan of Care: ADL Retraining, Functional Mobility, Group Exercise/Act as Ind, UE Funct Exercise/Act Treatment Duration: Jan 06, 2018 Frequency: At least 5 of 7 days/Wk (IRF) Estimated Hrs Per Day: 1.5 hours per day Agreement: Yes Rehab Potential: Fair Time/GCodes Start Time: 08:00 Stop Time: 09:00 Total Time Billed (hr/min): 60 Billed Treatment Time 1, ADL x 4 SHAKIRA DOE OT Jan 01, 2018 09:06
[2018-01-01] MEDS: FLUTICASONE NASAL SPRAY (FLONASE) 16 GM BTL NS SCH ×2 (09:16→21:03)
[2018-01-01] MEDS: MINOCYCLINE HCL 100 MG PO SCH ×2 (09:17→21:04)
[2018-01-01] MEDS: HYDROcodone/APAP 5 MG/325 MG (LORTAB) TAB PO PRN ×2 (09:24→19:31)
--- NOTE | 2018-01-01 09:24 | Physical Therapy Daily Note ---
PT Daily Note-Current Subjective Pt in restroom upon arrival. Pt agrees to PT. Pain Numeric Pain Scale: 5-Moderate Pain Location: Incisional, Left Location Body Site: Knee Pain Description: Ache Mental Status Patient Orientation: Person, Place, Time, Situation Transfers Functional [place] Measure 0=Not Assessed/NA 4=Minimal Assistance 1=Total Assistance 5=Supervision or Setup 2=Maximal Assistance 6=Modified [place] 3=Moderate Assistance 7=Complete IndependenceIRFPAI Quality Coding Scale 6 Independent with activity with or without an assistive device 5 Patient requires set up or clean up by helper. Patient completes activity by themselves 4 Supervision or touching assist (CGA). [place] provide cues , steadying assist 3 The helper provides less than half the effort to complete the activity 2 The helper provides more than half the effort to complete the activity 1 Dependent. The helper does all the effort to complete an activity 7 Patient refused to complete or attempt activity 9 The patient did not perform the activity before the current illness or injury 88 Not attempted due to Medical conditions or safety concerns Scootin Sit to/from Stand: 5 Weight Bearing Right Lower Extremity: Right Full Weight Bearing Left Lower Extremity: Left Weight Bearing/Tolerated Gait Training Does the Patient Walk?: Yes Distance (FIM): 3=150 ft Distance: 150' Walk 10 feet (QC): 6 Walk 50 ft with 2 Turns(QC): 6 Walk 150 ft (QC): 5 Gait Level of Assist: 5 Gait Persons Needed: 1 Gait Assistive Device: FWW Pt walks with flexed L knee during ambulation which improves after stretching leg on NuStep and massage to scar tissue on L knee. Wheelchair Training Does the Pt Use a Wheelchair?: No Stair Training Pt attempted staircase but was unable to lift R foot to step on stair. This is slightly taller than pink step which had been practiced. Pt will continue to practice stairs for discharge next week. Pt uses platform step to step on stairs at home. Exercises Seated Therapy Exercises: Ankle pumps, Long arc quads, Hip flexion, Kicking activity Seated Reps: 15 Treatments Pt using restroom upon arrival. Pt ambulates in hallway on way to Therapy Gym. Pt uses NuStep for 15m at [facility] 5 then takes short rest before short massage to L knee at incision site & back of knee. Pt returns to room as OT arrives for tx. Assessment Current Status: Good Progress Pt fatigues and needs occasional rest breaks. Pt continues to push self during tx. PT Short Term Goals Short Term Goals Time Frame: Dec 23, 2017 Transfers (B,C,W/C) (FIM): 4 (met) Gait (FIM): 2 (met) Gait Distance Comment: 60' Gait Level of Assist: 4 Gait Assistive Device: FWW Wheelchair Distance: 100' PT Water Tester Goals Water Tester Goals PT Prison Goals Time Frame: Jan 06, 2018 Transfers (B,C,W/C) (FIM): 4 Sit to Lying (QC): 3 Lying-Sitting on Side/Bed(QC): 4 Sit to Stand (QC): 4 Rollin Roll Left to Right (QC): 4 Chair/[id number] Xfer(QC): 4 Car Transfer (QC): 4 Gait (FIM): 2 Distance: 100' Walk 10 feet (QC): 4 Walk 10ft-Uneven Surface(QC): 4 Walk 50ft with 2 Turns (QC): 4 Gait Level of Assist: 5 Gait Assistive Device: FWW PT Plan Problem List Problem List: Activity Tolerance, Functional Strength, Gait Treatment/Plan Treatment Plan: Continue Plan of Care Treatment Plan: Bed Mobility, Concurrent Therapy, Education, Functional Activity Ricardo, Functional Strength, Group Therapy, Gait, Safety, Therapeutic Exercise, Transfers Treatment Duration: Jan 06, 2018 Frequency: At least 5 of 7 days/Wk (IRF) Estimated Hrs Per Day: 1.5 hours per day Patient and/or Family Agrees t: Yes Safety Risks/Education Patient Education: Gait Training, Transfer Techniques, Correct Positioning, Safety Issues Teaching Recipient: Patient Teaching Methods: Discussion Response to Teaching: Verbalize Understanding Time/GCodes Time In: 700 Time Out: 800 Total Billed Treatment Time: 60 Total Billed Treatment 1, GT (20m), FA (15m) & EX x2 (25m) G Codes Necessary: [facility] Jan 01, 2018 09:24
--- NOTE | 2018-01-01 12:22 | Therapy Group Daily Note ---
Therapy Daily Group Note Patient Education Topic Home Safety Other/Notes Pt ambulates to PT/OT Group using FWW. Group consists of Introduction (Name, Where you are from & A favorite Thanksgiving Memory), Socialization including Thanksgiving Trivia & Facts and Home Safety/Fall Prevention. Pt actively participated in Group by giving personal examples of Fall Prevention strategies and giving answers during trivia. Pt returns to room to rest at end of Group with all needs met. Start Time: 11:00 Stop Time: 12:00 Total Billed Treatment Time: 60 Total Billed Treatment 1, GRP (60m) LUIS [employer] Jan 01, 2018 12:22
[2018-01-01] MEDS: BUMETANIDE 1 MG (BUMEX) TAB PO SCH (13:48)
[2018-01-01 14:43] VITALS: BP 134/85
[2018-01-01] MEDS: warFARin 7.5 MG (COUMADIN) TAB PO SCH (17:36)
[2018-01-01] MEDS: TOLTERODINE LA 2 MG (DETROL LA) CAP PO SCH (21:01)
[2018-01-02] MEDS: HYDROcodone/APAP 5 MG/325 MG (LORTAB) TAB PO PRN ×4 (02:48→17:15)
[2018-01-02 05:43] VITALS: BP 148/89
[2018-01-02] MEDS: KCL 20 MEQ TAB (K-DUR) PO SCH (06:57)
--- NOTE | 2018-01-02 07:59 | Occupational Ther Daily Note ---
OT Current Status-Daily Note Mental Status/Objective Functional [place] Measure 0=Not Assessed/NA 4=Minimal Assistance 1=Total Assistance 5=Supervision or Setup 2=Maximal Assistance 6=Modified [place] 3=Moderate Assistance 7=Complete [place] ADL-Treatment Supine to EOB CGA. Ambulated to bathroom using FWW and transferred to toilet using FWW, grabbars and elevated seat by self. Completes hygiene with long handle AE for hygiene. Sitting at sink to complete own grooming using adaptive brush. After set up pt dons/doffs clothing by self, but requires min assist to fasten bra. Pt. able to don brief and pants over feet with AE, LOB while hiking pants over hips. Dons shoes by self after set up. SBA to transfer sit- stand with walker and to chair in bathroom. Pt. requires increased time overall due to fatigue. After therapy, pt sitting in recliner with call light/ phone in reach. Functional [place] Measure 0=Not Assessed/NA 4=Minimal Assistance 1=Total Assistance 5=Supervision or Setup 2=Maximal Assistance 6=Modified [place] 3=Moderate Assistance 7=Complete IndependenceIRFPAI Quality Coding Scale 6 Independent with activity with or without an assistive device 5 Patient requires set up or clean up by helper. Patient completes activity by themselves 4 Supervision or touching assist (CGA). [place] provide cues , steadying assist 3 The helper provides less than half the effort to complete the activity 2 The helper provides more than half the effort to complete the activity 1 Dependent. The helper does all the effort to complete an activity 7 Patient refused to complete or attempt activity 9 The patient did not perform the activity before the current illness or injury 88 Not attempted due to Medical conditions or safety concerns Grooming (FIM): 6 Oral Hygiene (QC): 6 Upper Body (FIM): 5 Upper Body Dressing (QC): 5 Lower Body Dressing (FIM): 4 Lower Body Dressing (QC): 4 On/Off Footwear (QC): 5 Toileting (FIM): 5 Toileting Hygiene (QC): 5 Toilet/Commode Transfer (FIM): 5 Toilet Transfer (QC): 5 OT Short Term Goals Short Term Goals Time Frame: Dec 23, 2017 Grooming(FIM): 5 Lower Body Dressing(FIM): 4 Transfers (B,C,W/C) (FIM): 4 (met) Toilet/Commode Transfer(FIM): 4 Additional Short Term Goals: 1-Demonstrate ADL Tasks, 2-Verbalize Understanding , 3-ImproveStrength/Ricardo 1=Demonstrate adherence to instructed precautions during ADL tasks. 2=Patient will verbalize/demonstrate understanding of assistive devices/ modifications for ADL. 3=Patient will improve strength/tolerance for activity to enable patient to perform ADL's. OT [facility] Goals Commodity Director Goals Time Frame: Jan 06, 2018 Eating (FIM): 6 Eating (QC): 6 Groomin Oral Hygiene (QC): 6 Bathing(FIM): 4 Shower/Bathe Self (QC): 4 Upper Body Dressing(FIM): 5 Upper Body Dressing (QC): 5 Lower Body Dressing(FIM): 4 (CGA) Lower Body Dressing (QC): 4 On/Off Footwear (QC): 5 Toileting(FIM): 5 Toileting Hygiene (QC): 5 Toilet/Commode Transfer(FIM): 5 Toilet/Commode Transfer (QC): 5 Shower Transfer(FIM): 4 Additional Goals: 1-Demonstrate ADL Tasks, 2-Verbalize Understanding, 3- ImproveStrength/Ricardo 1=Demonstrate adherence to instructed precautions during ADL tasks. 2=Patient will verbalize/demonstrate understanding of assistive devices/ modifications for ADL. 3=Patient will improve strength/tolerance for activity to enable patient to perform ADL's. OT Education/Plan Discharge Recommendations Plan/Recommendations: Continue POC Treatment Plan/Plan of Care Patient would benefit from OT for education, treatment and training to promote independence in ADL's, mobility, safety and/or upper extremity function for ADL' s. Plan of Care: ADL Retraining, Functional Mobility, Group Exercise/Act as Ind, UE Funct Exercise/Act Treatment Duration: Jan 06, 2018 Frequency: At least 5 of 7 days/Wk (IRF) Estimated Hrs Per Day: 1.5 hours per day Agreement: Yes Rehab Potential: Fair Time/GCodes Start Time: 07:00 Stop Time: 08:00 Total Time Billed (hr/min): 60 Billed Treatment Time 1 visit-ADL 4 (60 min) AMANUEL MATHEWS Jan 02, 2018 07:59
[2018-01-02] MEDS: predniSONE 5 MG TAB PO SCH (08:13)
[2018-01-02] MEDS: MAGNESIUM OXIDE (MAG-OX)400 MG TAB PO SCH (08:13)
[2018-01-02] MEDS: LORATADINE (CLARITIN) 10 MG TAB PO SCH (08:13)
[2018-01-02] MEDS: PRAMIPEXOLE 0.125 MG (MIRAPEX) TABLET PO SCH ×2 (08:13→21:20)
[2018-01-02] MEDS: GABAPENTIN 300 MG (NEURONTIN) CAP PO SCH ×4 (08:13→21:20)
[2018-01-02] MEDS: MINOCYCLINE HCL 100 MG PO SCH ×2 (08:14→21:21)
[2018-01-02] MEDS: FLUTICASONE NASAL SPRAY (FLONASE) 16 GM BTL NS SCH ×2 (08:15→21:22)
--- NOTE | 2018-01-02 10:39 | Physical Therapy Daily Note ---
PT Daily Note-Current Subjective Pt up in BR upon arrival. Agreeable to PT, no c/o. Mental Status Patient Orientation: Person, Place, Time, Situation Transfers Functional [place] Measure 0=Not Assessed/NA 4=Minimal Assistance 1=Total Assistance 5=Supervision or Setup 2=Maximal Assistance 6=Modified [place] 3=Moderate Assistance 7=Complete IndependenceIRFPAI Quality Coding Scale 6 Independent with activity with or without an assistive device 5 Patient requires set up or clean up by helper. Patient completes activity by themselves 4 Supervision or touching assist (CGA). [place] provide cues , steadying assist 3 The helper provides less than half the effort to complete the activity 2 The helper provides more than half the effort to complete the activity 1 Dependent. The helper does all the effort to complete an activity 7 Patient refused to complete or attempt activity 9 The patient did not perform the activity before the current illness or injury 88 Not attempted due to Medical conditions or safety concerns Transfers (B, C, W/C) (FIM): 4 Supine to/from Sit: 4 Sit to/from Stand: 6 Sit to Lying (QC): 3 Sit to Stand (QC): 6 Weight Bearing Right Lower Extremity: Right Full Weight Bearing Left Lower Extremity: Left Weight Bearing/Tolerated Gait Training Does the Patient Walk?: Yes Gait (FIM): 6 Distance (FIM): 3=150 ft Distance: 150 Walk 10 feet (QC): 6 Walk 50 ft with 2 Turns(QC): 6 Walk 150 ft (QC): 6 Gait Level of Assist: 6 Gait Assistive Device: FWW Pt ambulates with slow but safe antalgic gait. Ambulates with (L) knee in flexion during stance. VCS for heel-toe gait and TKE during stance. Exercises Supine Ex: Quad Set, Short Arc Quads, Straight leg raise Supine Reps: 20 Seated Therapy Exercises: Long arc quads, Hamstring Curls Seated Reps: 20 Standing Reps: 15 TKE in standing NuStep Minutes: 15 NuStep Workload: 5 Treatments Gait training. NuStep for functional strengthening and knee ROM. Supine and seated exercises for LE strengthening. Returned to up in chair with all needs met. Assessment Current Status: Good Progress Pt tolerated well. Poor quad strength but improved VMO facilitation. Improving ( I) with functional mobility. PT Short Term Goals Short Term Goals Time Frame: Dec 23, 2017 Transfers (B,C,W/C) (FIM): 4 (met) Gait (FIM): 2 (met) Gait Distance Comment: 60' Gait Level of Assist: 4 Gait Assistive Device: FWW Wheelchair Distance: 100' PT Scientific Artist Goals Scientific Artist Goals PT Scientific Artist Goals Time Frame: Jan 06, 2018 Transfers (B,C,W/C) (FIM): 4 Sit to Lying (QC): 3 Lying-Sitting on Side/Bed(QC): 4 Sit to Stand (QC): 4 Rollin Roll Left to Right (QC): 4 Chair/Sbi-de-Obwvj Xfer(QC): 4 Car Transfer (QC): 4 Gait (FIM): 2 Distance: 100' Walk 10 feet (QC): 4 Walk 10ft-Uneven Surface(QC): 4 Walk 50ft with 2 Turns (QC): 4 Gait Level of Assist: 5 Gait Assistive Device: FWW PT Plan Problem List Problem List: Activity Tolerance, Functional Strength, Balance, Gait, Transfer , Bed Mobility, ROM Treatment/Plan Treatment Plan: Continue Plan of Care Treatment Plan: Bed Mobility, Concurrent Therapy, Education, Functional Activity Ricardo, Functional Strength, Group Therapy, Gait, Safety, Therapeutic Exercise, Transfers Treatment Duration: Jan 06, 2018 Frequency: At least 5 of 7 days/Wk (IRF) Estimated Hrs Per Day: 1.5 hours per day Patient and/or Family Agrees t: Yes Safety Risks/Education Patient Education: Gait Training Teaching Recipient: Patient Teaching Methods: Discussion Response to Teaching: Verbalize Understanding Discharge Recommendations Therapy D/C Recommendations: Physical Therapy Outpatient Time/GCodes Time In: 824 Time Out: 924 Total Billed Treatment Time: 60 Total Billed Treatment 1, GT x 15', Ex x 45' G Codes Necessary: NEAL Wahl DPKyung Jan 02, 2018 10:39
[2018-01-02] MEDS: BUMETANIDE 1 MG (BUMEX) TAB PO SCH (14:16)
--- NOTE | 2018-01-02 14:49 | Therapy Group Daily Note ---
Therapy Daily Group Note Patient Education Topic Other List Below Exercises LE Seated Exercise, Sit to/from Stand, Walking, UE Exercise Other/Notes Pt ambulated with FWW to therapy gym for OT/PT group. Group consisted of introductions(name, place born, youthful memory), socialization, pt lead UE/LE seated exercises, benefits of exercise, walking/transfers and cognitive task naming Sruthi elliott. Pt introduced self appropriately and actively listened to peers. Pt was able to participate in exercises and lead one exercise. Pt demonstrated ability to transfer and ambulate to designated areas with supervision. Pt required modifications to chose correct name of song. Pt contributed to conversations and was able to verbalize understanding of educational topics. After therapy, pt lying in bed with call light/phone in reach. All needs met in room. Start Time: 13:00 Stop Time: 14:10 Total Billed Treatment Time: 70 Total Billed Treatment 1-GRP AMANUEL MATHEWS Jan 02, 2018 14:49
[2018-01-02] MEDS: warFARin 7.5 MG (COUMADIN) TAB PO SCH (17:14)
[2018-01-02 18:00] VITALS: BP 135/81
--- NOTE | 2018-01-02 20:28 | PM & R (SOAP) Progress Note ---
Subjective This was a face to face visit with the patient. Date Seen by Provider: Jan 02, 2018 Time Seen by Provider: 20:20 Subjective/Events-last exam Patient was seen in her room this evening patient Modified Independent in her room with a walker Objective Physician Exam Last Set of Vital Signs Vital Signs Date Time Temp Pulse Resp B/P (MAP) Pulse Ox O2 Delivery O2 Flow Rate FiO2 01/02/18 18:00 98.3 90 16 135/81 (99) 94 Room Air 12/28/17 06:02 2.00 Capillary Refill : Less Than 3 Seconds I&O Intake and Output 01/02/18 00:00 Intake Total 1250 ml Balance 1250 ml Intake Oral 1250 ml # Voids 9 # Bowel Movements 1 General: Alert, Oriented X3, Cooperative, No Acute Distress HEENT: Atraumatic, PERRLA, EOMI, Mucous Memb Moist/[place] Neck: Supple, No JVD Lungs: Clear to Auscultation Heart: Regular Rate Abdomen: Normal Bowel Sounds, Soft, No Tenderness Extremities: Other (Left calf tight but non tender Incision healing well Limited AROM left shoulder due to OA) Neuro: Sensation Intact, Other (Generalized weakaness more so left shoulder and left knee) Psych/Mental Status: Mental Status NL, Other (cognition intact) Results Lab Data Laboratory Tests 12/31/17 04:55: Prothrombin Time 24.6H, INR Comment 2.2H Assessment/Plan Assessment and Plan 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
[2018-01-02] MEDS: TOLTERODINE LA 2 MG (DETROL LA) CAP PO SCH (21:20)
[2018-01-03] MEDS: HYDROcodone/APAP 5 MG/325 MG (LORTAB) TAB PO PRN ×5 (00:05→23:30)
[2018-01-03 06:00] VITALS: BP 125/76
[2018-01-03] MEDS: KCL 20 MEQ TAB (K-DUR) PO SCH (07:00)
--- NOTE | 2018-01-03 07:59 | PM & R (SOAP) Progress Note ---
Subjective This was a face to face visit with the patient. Date Seen by Provider: Jan 03, 2018 Time Seen by Provider: 07:35 Subjective/Events-last exam Patient was seen in her room this am Patient Modified Independent in room with walker Objective Physician Exam Last Set of Vital Signs Vital Signs Date Time Temp Pulse Resp B/P (MAP) Pulse Ox O2 Delivery O2 Flow Rate FiO2 01/03/18 06:00 98.9 86 18 125/76 (92) 93 Nasal Cannula 2.00 Capillary Refill : Less Than 3 Seconds I&O Intake and Output 01/03/18 00:00 Intake Total 1000 ml Balance 1000 ml Intake Oral 1000 ml # Voids 10 General: Alert, Oriented X3, Cooperative, No Acute Distress HEENT: Atraumatic, PERRLA, EOMI, Mucous Memb Moist/[place] Neck: Supple, No JVD Lungs: Clear to Auscultation Heart: Regular Rate Abdomen: Normal Bowel Sounds, Soft, No Tenderness Extremities: Other (Left calf tight but non tender Incision healing well Limited AROM left shoulder due to OA) Neuro: Sensation Intact, Other (Generalized weakaness more so left shoulder and left knee) Psych/Mental Status: Mental Status NL, Other (cognition intact) Assessment/Plan Assessment and Plan revision left TKR s/p explantation of hardware and now with revsion after antibiotic beads and currently on Minocin Leiden V factor chronically anticoagulated Onychomycosis s/p debridement DPM Hammer toes OA of the C and L spine s/p spinal surgery remote OA of the left shoulder RLS OAB Diastolic CHF compensated Anemia HX of DVT /PE Valvular HT D Nocturnal resp insuff on 02 at HS Allergic rhinitis improved with meds Plan Continue PT/OT/Antibiotic Discharge set for 01-06-18 to home with [facility] F/U with ID Physician in [place] as an outpatient Co-Morbidities that are continuing to impact the rehab process: (include details ) MYLA BIRCH MD Jan 03, 2018 07:59
[2018-01-03] MEDS: MAGNESIUM OXIDE (MAG-OX)400 MG TAB PO SCH (08:00)
[2018-01-03] MEDS: LORATADINE (CLARITIN) 10 MG TAB PO SCH (08:01)
[2018-01-03] MEDS: predniSONE 5 MG TAB PO SCH (08:01)
[2018-01-03] MEDS: MINOCYCLINE HCL 100 MG PO SCH ×2 (08:01→21:39)
[2018-01-03] MEDS: GABAPENTIN 300 MG (NEURONTIN) CAP PO SCH ×4 (08:03→21:38)
[2018-01-03] MEDS: PRAMIPEXOLE 0.125 MG (MIRAPEX) TABLET PO SCH ×2 (08:03→21:38)
[2018-01-03] MEDS: FLUTICASONE NASAL SPRAY (FLONASE) 16 GM BTL NS SCH ×2 (08:04→21:39)
[2018-01-03] MEDS: BUMETANIDE 1 MG (BUMEX) TAB PO SCH (09:06)
[2018-01-03] MEDS: guaiFENesin (MUCINEX) 600 MG TAB PO SCH ×2 (09:06→21:38)
--- NOTE | 2018-01-03 09:16 | Physical Therapy Daily Note ---
PT Daily Note-Current Subjective Pt agreeable. No c/o. Mental Status Patient Orientation: Person, Place, Time, Situation Transfers Functional [place] Measure 0=Not Assessed/NA 4=Minimal Assistance 1=Total Assistance 5=Supervision or Setup 2=Maximal Assistance 6=Modified [place] 3=Moderate Assistance 7=Complete IndependenceIRFPAI Quality Coding Scale 6 Independent with activity with or without an assistive device 5 Patient requires set up or clean up by helper. Patient completes activity by themselves 4 Supervision or touching assist (CGA). [place] provide cues , steadying assist 3 The helper provides less than half the effort to complete the activity 2 The helper provides more than half the effort to complete the activity 1 Dependent. The helper does all the effort to complete an activity 7 Patient refused to complete or attempt activity 9 The patient did not perform the activity before the current illness or injury 88 Not attempted due to Medical conditions or safety concerns Transfers (B, C, W/C) (FIM): 4 Supine to/from Sit: 4 Sit to/from Stand: 4 Sit to Stand (QC): 4 Weight Bearing Right Lower Extremity: Right Full Weight Bearing Left Lower Extremity: Left Weight Bearing/Tolerated Gait Training Does the Patient Walk?: Yes Gait (FIM): 6 Distance (FIM): 3=150 ft Distance: 150 Walk 10 feet (QC): 6 Walk 50 ft with 2 Turns(QC): 6 Walk 150 ft (QC): 6 Gait Level of Assist: 6 Gait Assistive Device: FWW (L) knee in flexion during stance, flexed posture Exercises NuStep Minutes: 15 NuStep Workload: 3 (5' without LE) Treatments NuStep for knee ROM, functional strengthening. Gait training with FWW. Assessment Current Status: Good Progress Pt tolerated well. Antalgic but safe gait. PT Short Term Goals Short Term Goals Time Frame: Dec 23, 2017 Transfers (B,C,W/C) (FIM): 4 (met) Gait (FIM): 2 (met) Gait Distance Comment: 60' Gait Level of Assist: 4 Gait Assistive Device: FWW Wheelchair Distance: 100' PT Pocket Closer Goals Long-Term Goals PT Pocket Closer Goals Time Frame: Jan 06, 2018 Transfers (B,C,W/C) (FIM): 4 Sit to Lying (QC): 3 Lying-Sitting on Side/Bed(QC): 4 Sit to Stand (QC): 4 Rollin Roll Left to Right (QC): 4 Chair/Pkx-lc-Grzhe Xfer(QC): 4 Car Transfer (QC): 4 Gait (FIM): 2 Distance: 100' Walk 10 feet (QC): 4 Walk 10ft-Uneven Surface(QC): 4 Walk 50ft with 2 Turns (QC): 4 Gait Level of Assist: 5 Gait Assistive Device: FWW PT Plan Problem List Problem List: Activity Tolerance, Functional Strength, Safety, Balance, Gait, Transfer, Bed Mobility, ROM Treatment/Plan Treatment Plan: Continue Plan of Care Treatment Plan: Bed Mobility, Concurrent Therapy, Education, Functional Activity Ricardo, Functional Strength, Group Therapy, Gait, Safety, Therapeutic Exercise, Transfers Treatment Duration: Jan 06, 2018 Frequency: At least 5 of 7 days/Wk (IRF) Estimated Hrs Per Day: 1.5 hours per day Patient and/or Family Agrees t: Yes Discharge Recommendations Therapy D/C Recommendations: Physical Therapy Home Care, Physical Therapy Outpatient Time/GCodes Time In: 809 Time Out: 848 Total Billed Treatment Time: 39 Total Billed Treatment 1, GT x 24', Ex x 15' G Codes Necessary: NEAL Wahl DPT Jan 03, 2018 09:15
[2018-01-03] MEDS: warFARin 7.5 MG (COUMADIN) TAB PO SCH (17:25)
[2018-01-03 18:11] VITALS: BP 116/72
[2018-01-03] MEDS: TOLTERODINE LA 2 MG (DETROL LA) CAP PO SCH (21:38)
[2018-01-04 06:28] LABS: INR 2.3 (0.8-1.4); PROTHROMBIN TIME PATIENT 25.6 SEC (12.2-14.7)
[2018-01-04 06:41] VITALS: BP 136/80
[2018-01-04] MEDS: KCL 20 MEQ TAB (K-DUR) PO SCH (07:12)
[2018-01-04] MEDS: predniSONE 5 MG TAB PO SCH (08:12)
[2018-01-04] MEDS: GABAPENTIN 300 MG (NEURONTIN) CAP PO SCH ×4 (08:12→20:57)
[2018-01-04] MEDS: PRAMIPEXOLE 0.125 MG (MIRAPEX) TABLET PO SCH ×2 (08:13→20:57)
[2018-01-04] MEDS: LORATADINE (CLARITIN) 10 MG TAB PO SCH (08:13)
[2018-01-04] MEDS: guaiFENesin (MUCINEX) 600 MG TAB PO SCH ×2 (08:13→20:57)
[2018-01-04] MEDS: MAGNESIUM OXIDE (MAG-OX)400 MG TAB PO SCH (08:26)
[2018-01-04] MEDS: BUMETANIDE 1 MG (BUMEX) TAB PO SCH (08:26)
[2018-01-04] MEDS: HYDROcodone/APAP 5 MG/325 MG (LORTAB) TAB PO PRN ×4 (08:27→23:04)
[2018-01-04] MEDS: MINOCYCLINE HCL 100 MG PO SCH ×2 (08:27→20:59)
[2018-01-04] MEDS: FLUTICASONE NASAL SPRAY (FLONASE) 16 GM BTL NS SCH ×2 (08:28→20:59)
[2018-01-04 15:09] LABS: BASOPHILS % (AUTO) 1 % (0-10); EOSINOPHILS # (AUTO) 0.2 10^3/uL (0.0-0.3); EOSINOPHILS % (AUTO) 2 % (0-10); HEMATOCRIT 36 % (35-52); HEMOGLOBIN 11.3 G/DL (11.5-16.0); LYMPHOCYTES # (AUTO) 1.8 X 10^3 (1.0-4.0); LYMPHOCYTES % (AUTO) 22 % (12-44); MEAN CORPUSCULAR HEMOGLOBIN 29 PG (25-34); MEAN CORPUSCULAR HGB CONC 32 G/DL (32-36); MEAN CORPUSCULAR VOLUME 92 FL (80-99); MEAN PLATELET VOLUME 10.1 FL (7.4-10.4); MONOCYTES # (AUTO) 0.9 X 10^3 (0.0-1.0); MONOCYTES % (AUTO) 12 % (0-12); NEUTROPHILS # (AUTO) 5.1 X 10^3 (1.8-7.8); NEUTROPHILS % (AUTO) 64 % (42-75); PLATELET COUNT 238 10^3/uL (130-400); RED BLOOD COUNT 3.88 10^6/uL (4.35-5.85)
[2018-01-04 15:39] LABS: BUN/CREATININE RATIO 24; CALCIUM 9.2 MG/DL (8.5-10.1); CARBON DIOXIDE 24 MMOL/L (21-32); CHLORIDE 104 MMOL/L (98-107); CREATININE SERUM 0.75 MG/DL (0.60-1.30); GFR ESTIMATED > 60; GLUCOSE 100 MG/DL (70-105); POTASSIUM 4.6 MMOL/L (3.6-5.0); SODIUM 141 MMOL/L (135-145)
[2018-01-04] MEDS: warFARin 7.5 MG (COUMADIN) TAB PO SCH (17:18)
--- NOTE | 2018-01-04 17:54 | Diagnostic Imaging Report ---
PA and lateral chest. INDICATION: Shortness of breath and cough. Comparison is made with prior chest radiograph from 08/03/2009. FINDINGS: There are chronic interstitial changes present within the lungs compatible with COPD with flattening of the diaphragms and air trapping. Linear densities at the lateral left chest and at the right lung base are likely reflective of discoid atelectasis. There is no alveolar consolidation. There is no evidence of an effusion. There is no pneumothorax. Heart size stable without congestive failure. There is now evidence of advanced arthritic changes at the right shoulder with medial subluxation of the humeral head. The left shoulder demonstrates advanced arthritic changes with what now appears to likely be a chronic glenohumeral joint dislocation. This is likely secondary to the patient's known history of rheumatoid arthritis. IMPRESSION: 1. Background features of COPD with discoid atelectasis in both lungs but no focal infiltrate. 2. Long-standing arthritic changes with right glenohumeral joint subluxation and left-sided dislocation likely related to patient's reported history of rheumatoid arthritis. Dictated by: Dictated on workstation # [id number]
[2018-01-04 18:00] VITALS: BP 125/76
[2018-01-04] MEDS: MILK OF MAGNESIA 400 MG/5 ML 30 ML UDC PO PRN (18:03)
[2018-01-04] MEDS: TOLTERODINE LA 2 MG (DETROL LA) CAP PO SCH (20:57)
[2018-01-05] MEDS: KCL 20 MEQ TAB (K-DUR) PO SCH (06:02)
[2018-01-05 06:25] VITALS: BP 148/87
[2018-01-05] MEDS: LORATADINE (CLARITIN) 10 MG TAB PO SCH (08:57)
[2018-01-05] MEDS: guaiFENesin (MUCINEX) 600 MG TAB PO SCH ×2 (08:57→21:35)
[2018-01-05] MEDS: predniSONE 5 MG TAB PO SCH (08:57)
[2018-01-05] MEDS: MAGNESIUM OXIDE (MAG-OX)400 MG TAB PO SCH (08:57)
[2018-01-05] MEDS: PRAMIPEXOLE 0.125 MG (MIRAPEX) TABLET PO SCH ×2 (08:57→21:35)
[2018-01-05] MEDS: GABAPENTIN 300 MG (NEURONTIN) CAP PO SCH ×4 (08:57→21:35)
[2018-01-05] MEDS: FLUTICASONE NASAL SPRAY (FLONASE) 16 GM BTL NS SCH ×2 (09:03→21:33)
[2018-01-05] MEDS: MINOCYCLINE HCL 100 MG PO SCH ×2 (09:03→21:34)
[2018-01-05] MEDS: HYDROcodone/APAP 5 MG/325 MG (LORTAB) TAB PO PRN ×3 (09:03→23:26)
--- NOTE | 2018-01-05 09:04 | Physical Therapy Daily Note ---
PT Daily Note-Current Subjective Pt. agrees to Rx. States she has pain at 5/10 in her knee. States she is so ready to go home. States she has 4 steps to go up at home and they are all 4 in tall steps Pain Numeric Pain Scale: 5-Moderate Pain Location: Left Location Body Site: Knee Pain Description: Ache Mental Status Patient Orientation: Normal For Age Transfers Functional [place] Measure 0=Not Assessed/NA 4=Minimal Assistance 1=Total Assistance 5=Supervision or Setup 2=Maximal Assistance 6=Modified [place] 3=Moderate Assistance 7=Complete IndependenceIRFPAI Quality Coding Scale 6 Independent with activity with or without an assistive device 5 Patient requires set up or clean up by helper. Patient completes activity by themselves 4 Supervision or touching assist (CGA). [place] provide cues , steadying assist 3 The helper provides less than half the effort to complete the activity 2 The helper provides more than half the effort to complete the activity 1 Dependent. The helper does all the effort to complete an activity 7 Patient refused to complete or attempt activity 9 The patient did not perform the activity before the current illness or injury 88 Not attempted due to Medical conditions or safety concerns Transfers (B, C, W/C) (FIM): 6 Scootin Rollin Roll Left to Right (QC): 5 Supine to/from Sit: 6 Sit to/from Stand: 6 Sit to Lying (QC): 5 Sit to Stand (QC): 5 Chair/Bzx-ur-Gtgue Xfer(QC): 5 Bed to/from Chair: 6 Car Transfer (QC): 5 Weight Bearing Right Lower Extremity: Right Full Weight Bearing Left Lower Extremity: Left Weight Bearing/Tolerated Gait Training Does the Patient Walk?: Yes Gait (FIM): 6 Distance (FIM): 3=150 ft (160x2) Walk 10 feet (QC): 5 Walk 50 ft with 2 Turns(QC): 5 Walk 150 ft (QC): 5 Walking 10ft/uneven surface-QC: 5 Gait Level of Assist: 6 Gait Persons Needed: 0 Gait Assistive Device: FWW Wheelchair Training Does the Pt Use a Wheelchair?: No Stair Training Stair Training: Handrails/: 2 handrails Stairs (FIM): 2 #of Steps: 4 1 Step (curb) (QC): 2 4 Steps (QC): 2 Stairs: Pattern: Step to Level of Assist: 4 Exercises Supine Ex: Ankle pumps, Quad Set, Rolling, Glut sets, Heel Slides, Short Arc Quads, Scooting, Straight leg raise (10), Hip abd/add NuStep Minutes: 10 NuStep Workload: 5 Assessment Current Status: Good Progress meets goals PT Short Term Goals Short Term Goals Time Frame: Dec 23, 2017 Transfers (B,C,W/C) (FIM): 4 (met) Gait (FIM): 2 (met) Gait Distance Comment: 60' Gait Level of Assist: 4 Gait Assistive Device: FWW Wheelchair Distance: 100' PT Repairer Cylinder Heads Goals Retirement Goals PT Repairer Cylinder Heads Goals Time Frame: Jan 06, 2018 Transfers (B,C,W/C) (FIM): 4 Sit to Lying (QC): 3 Lying-Sitting on Side/Bed(QC): 4 Sit to Stand (QC): 4 Rollin Roll Left to Right (QC): 4 Chair/Qag-vc-Ssvow Xfer(QC): 4 Car Transfer (QC): 4 Gait (FIM): 2 Distance: 100' Walk 10 feet (QC): 4 Walk 10ft-Uneven Surface(QC): 4 Walk 50ft with 2 Turns (QC): 4 Gait Level of Assist: 5 Gait Assistive Device: FWW PT Plan Treatment/Plan Treatment Plan: Continue Plan of Care Treatment Plan: Bed Mobility, Concurrent Therapy, Education, Functional Activity Ricardo, Functional Strength, Group Therapy, Gait, Safety, Therapeutic Exercise, Transfers Treatment Duration: Jan 06, 2018 Frequency: At least 5 of 7 days/Wk (IRF) Estimated Hrs Per Day: 1.5 hours per day Patient and/or Family Agrees t: Yes Safety Risks/Education Patient Education: Gait Training, Transfer Techniques, Steps, Correct Positioning, Disease Process, Safety Issues Teaching Recipient: Patient Teaching Methods: Demonstration, Discussion Response to Teaching: Verbalize Understanding, Return Demonstration, Reinforcement Needed Time/GCodes Time In: 800 Time Out: 900 Total Billed Treatment Time: 60 Total Billed Treatment 1,GT20m,FA25m,EX15m G Codes Necessary: GORDON Ernst MERCHANDISE FLOW TEAM LEADER Jan 05, 2018 09:04
[2018-01-05] MEDS: MILK OF MAGNESIA 400 MG/5 ML 30 ML UDC PO PRN (09:09)
--- NOTE | 2018-01-05 12:28 | Occupational Ther Daily Note ---
OT Current Status-Daily Note Subjective Pt stated that she felt she would be able to be fine at home. Only had concern about a few chores like laundry, but her could help her. Appearance Pt in recliner, alert, and willing to work with OT. Mental Status/Objective Patient Orientation: Person, Place, Time, Situation Functional [place] Measure 0=Not Assessed/NA 4=Minimal Assistance 1=Total Assistance 5=Supervision or Setup 2=Maximal Assistance 6=Modified [place] 3=Moderate Assistance 7=Complete [place] ADL-Treatment Functional [place] Measure 0=Not Assessed/NA 4=Minimal Assistance 1=Total Assistance 5=Supervision or Setup 2=Maximal Assistance 6=Modified [place] 3=Moderate Assistance 7=Complete IndependenceIRFPAI Quality Coding Scale 6 Independent with activity with or without an assistive device 5 Patient requires set up or clean up by helper. Patient completes activity by themselves 4 Supervision or touching assist (CGA). [place] provide cues , steadying assist 3 The helper provides less than half the effort to complete the activity 2 The helper provides more than half the effort to complete the activity 1 Dependent. The helper does all the effort to complete an activity 7 Patient refused to complete or attempt activity 9 The patient did not perform the activity before the current illness or injury 88 Not attempted due to Medical conditions or safety concerns Grooming (FIM): 6 (MOD I in chair at sink. Pt uses a long handled hair brush. Brushed teeth with Mod I.) Oral Hygiene (QC): 6 Bathing (FIM): 6 (MOD I in shower. Uses AE of long handled sponge, shower bench, hand-held shower sprayer, and grab bars. Washed all body parts, leaning side to side to wash buttocks. ) Shower/Bathe Self (QC): 6 Upper Body (FIM): 4 (Pt able to doff and don all upper body clothing MOD I on shower bench, needing assistance only with hooking her bra. ) Upper Body Dressing (QC): 4 Lower Body Dressing (FIM): 4 (Pt able to doff and don undergarmenets and pants with use of AE labor relations manager. Pt needed assistance pulling pants up at grab bars. ) Lower Body Dressing (QC): 4 On/Off Footwear (QC): 6 Toileting (FIM): 6 (Pt able to pull pants down, cleanse [place] area, and pull pants up using walker and grab bars. ) Toileting Hygiene (QC): 6 Transfers (B, C, W/C) (FIM): 4 (Pt able to make all transfers chair-stand at FWW and FWW to sit in chair. CGA for all ambulation. ) Toilet/Commode Transfer (FIM): 5 (SBA for transfers from FWW to toilet riser to FWW. ) Toilet Transfer (QC): 4 Shower Transfer(FIM): 4 (SBA from FWW to shower bench. CGA from shower bench and grab bars to FWW. ) Pt participated in shower activity after toileting. Pt has made great improvement in time she has been here. Time for activity of showering has decreased. Pt able to participate in grooming activities MOD I. Pt requires help drying the back of her hair. States that her spouse can assist her with this. Other Treatment Pt ambulated to therapy gym CGA to participate in therapy clip activity of graded resistance of clips x 2, alternating arms for crossing mid-line and pincher systems analyst developer strengthening. Pt participated in easy advertising consultant on small board alternating UE reaching. Pt ambulated to room to toilet. OT directed Pt to use call light when finished as therapy session ended. All needs met. Education OT Patient Education: Exercise program, Home exercise program, Modified ADL techniques, Progress toward Goal/Update tx plan, Purpose of tx/functional activities, Reviewed precautions, Rehab process, Transfer techniques, Use of adapted equipment Teaching Recipient: Patient Teaching Methods: Demonstration, Discussion Response to Teaching: Verbalize Understanding, Return Demonstration OT Short Term Goals Short Term Goals Time Frame: Dec 23, 2017 Grooming(FIM): 5 Lower Body Dressing(FIM): 4 Transfers (B,C,W/C) (FIM): 4 (met) Toilet/Commode Transfer(FIM): 4 Additional Short Term Goals: 1-Demonstrate ADL Tasks, 2-Verbalize Understanding , 3-ImproveStrength/[place] 1=Demonstrate adherence to instructed precautions during ADL tasks. 2=Patient will verbalize/demonstrate understanding of assistive devices/ modifications for ADL. 3=Patient will improve strength/tolerance for activity to enable patient to perform ADL's. OT Prison Goals Prison Goals Time Frame: Jan 06, 2018 Eating (FIM): 6 Eating (QC): 6 Groomin Oral Hygiene (QC): 6 Bathing(FIM): 4 Shower/Bathe Self (QC): 4 Upper Body Dressing(FIM): 5 Upper Body Dressing (QC): 5 Lower Body Dressing(FIM): 4 (CGA) Lower Body Dressing (QC): 4 On/Off Footwear (QC): 5 Toileting(FIM): 5 Toileting Hygiene (QC): 5 Toilet/Commode Transfer(FIM): 5 Toilet/Commode Transfer (QC): 5 Shower Transfer(FIM): 4 Additional Goals: 1-Demonstrate ADL Tasks, 2-Verbalize Understanding, 3- ImproveStrength/Ricardo 1=Demonstrate adherence to instructed precautions during ADL tasks. 2=Patient will verbalize/demonstrate understanding of assistive devices/ modifications for ADL. 3=Patient will improve strength/tolerance for activity to enable patient to perform ADL's. OT Education/Plan Problem List/Assessment Assessment: Decreased Activ Tolerance, Decreased UE Strength, Impaired I ADL's , Impaired Self-Care Skills, Restricted Funct UE ROM Discharge Recommendations Plan/Recommendations: Continue POC Therapy D/C Recommendations: Home w/ Family Support, Occupational Therapy Home Care Equpiment Recommendations-D/C: Sock Aide Treatment Plan/Plan of Care Treatment,Training & Education: Yes Patient would benefit from OT for education, treatment and training to promote independence in ADL's, mobility, safety and/or upper extremity function for ADL' s. Plan of Care: ADL Retraining, Functional Mobility, Group Exercise/Act as Ind, UE Funct Exercise/Act Treatment Duration: Jan 06, 2018 Frequency: At least 5 of 7 days/Wk (IRF) Estimated Hrs Per Day: 1.5 hours per day Agreement: Yes Rehab Potential: Good Time/GCodes Start Time: 09:15 Stop Time: 10:45 Total Time Billed (hr/min): 90 Billed Treatment Time 1, ADL X 65 minutes, EX x 25 minutes. SHAKIRA DOE OT Jan 05, 2018 12:28
--- NOTE | 2018-01-05 13:34 | Physical Therapy Daily Note ---
PT Daily Note-Current Subjective Pt. c/o knee pain at 5/10. Agrees to cold pack to knee Pain Numeric Pain Scale: 5-Moderate Pain Location: Left Location Body Site: Knee Pain Description: Ache Mental Status Patient Orientation: Normal For Age Transfers Functional [place] Measure 0=Not Assessed/NA 4=Minimal Assistance 1=Total Assistance 5=Supervision or Setup 2=Maximal Assistance 6=Modified [place] 3=Moderate Assistance 7=Complete IndependenceIRFPAI Quality Coding Scale 6 Independent with activity with or without an assistive device 5 Patient requires set up or clean up by helper. Patient completes activity by themselves 4 Supervision or touching assist (CGA). [place] provide cues , steadying assist 3 The helper provides less than half the effort to complete the activity 2 The helper provides more than half the effort to complete the activity 1 Dependent. The helper does all the effort to complete an activity 7 Patient refused to complete or attempt activity 9 The patient did not perform the activity before the current illness or injury 88 Not attempted due to Medical conditions or safety concerns all TRFs Mod I Weight Bearing Right Lower Extremity: Right Full Weight Bearing Left Lower Extremity: Left Weight Bearing/Tolerated Gait Training Does the Patient Walk?: Yes Gait Assistive Device: FWW 150,100 FWW SBA Exercises seated LAQ, Knee flexion stretches x 6 x 20s ea. PROM 8 to 92 degrees Treatments up in recliner with LEs elevated and ice pack on left knee Assessment Current Status: Good Progress PT Short Term Goals Short Term Goals Time Frame: Dec 23, 2017 Transfers (B,C,W/C) (FIM): 4 (met) Gait (FIM): 2 (met) Gait Distance Comment: 60' Gait Level of Assist: 4 Gait Assistive Device: FWW Wheelchair Distance: 100' PT Computer Forwarding System Markup Clerk Goals [facility] Goals PT [facility] Goals Time Frame: Jan 06, 2018 Transfers (B,C,W/C) (FIM): 4 Sit to Lying (QC): 3 Lying-Sitting on Side/Bed(QC): 4 Sit to Stand (QC): 4 Rollin Roll Left to Right (QC): 4 Chair/Dny-ca-Uzhkb Xfer(QC): 4 Car Transfer (QC): 4 Gait (FIM): 2 Distance: 100' Walk 10 feet (QC): 4 Walk 10ft-Uneven Surface(QC): 4 Walk 50ft with 2 Turns (QC): 4 Gait Level of Assist: 5 Gait Assistive Device: FWW PT Plan Treatment/Plan Treatment Plan: Continue Plan of Care Treatment Plan: Bed Mobility, Concurrent Therapy, Education, Functional Activity Ricardo, Functional Strength, Group Therapy, Gait, Safety, Therapeutic Exercise, Transfers Treatment Duration: Jan 06, 2018 Frequency: At least 5 of 7 days/Wk (IRF) Estimated Hrs Per Day: 1.5 hours per day Patient and/or Family Agrees t: Yes Safety Risks/Education Patient Education: Gait Training, Transfer Techniques, Correct Positioning Time/GCodes Time In: 1300 Time Out: 1330 Total Billed Treatment Time: 30 Total Billed Treatment 1,GT20,EX10 G Codes Necessary: GORDON Ernst ENGINEERING AIDE Jan 05, 2018 13:34
[2018-01-05] MEDS: BUMETANIDE 1 MG (BUMEX) TAB PO SCH (13:58)
--- NOTE | 2018-01-05 14:19 | D/C HH Face to Face Order ---
D/C Face to Face Orders Instructions for Patient Satinder [id number] Patient Instructions/FollowUp: Dr. Devi Vasquez Physician to follow Patient: Dr. Vasquez Discharge Diet for Home: Regular Diet Patient Data-Allergies,Ht & Wt Patient Allergies: Coded Allergies: baclofen (Verified Allergy, Severe, 12/16/17) vancomycin (Verified Allergy, Severe, 12/16/17) Penicillins (Verified Allergy, Unknown, 12/16/17) cefuroxime (Verified Allergy, Unknown, 12/16/17) cyclobenzaprine (Verified Allergy, Unknown, 12/16/17) levofloxacin (Verified Allergy, Unknown, 12/16/17) metronidazole (Verified Allergy, Unknown, 12/16/17) Height (Feet): 5 Height (Inches): 2.00 Weight (Pounds): 179 Weight (Ounces): 1.6 Home Health Need/Face to Face Date of Face to Face: Jan 06, 2018 Clinical Findings: Generalized weakness and fatigue, Muscle weakness, Unsteady gait I have seen Pt [id number]: Yes Discharged To: Home Diagnosis/Conditions: S/P L TKR Patient is Homebound due to: Justine fall risk due to instabilty, Muscle weakness Homebound Status Due to the above stated illness, injury or surgical procedure (medical condition or diagnosis) and associated clinical findings, the patient is homebound because of his/her inability to leave home except with aid of a supportive device and/or person AND leaving the home requires a considerable and taxing effort or is medically contraindicated. Pt req the following assistanc: Walker Home Health Nursing Orders Home Health Services Order: [facility]-Evaluate & Treat, Physical Therapy-Evaluate & Treat Therapy Orders Therapy Orders: OT (must have SN or PT order), Physical Therapy Therapy Specific Orders: Eval assistive deivces, Teach enviro modifications/ safety, Gait training, Increase strength/endurance, Restore ROM Certify Stmt I certify that this patient is under my care and that I, a nurse practitioner or a physician; a pharmacy sales assistant working with me, had a face to face encounter that - meets the physician face to face encounter requirements with this patient as dated. I personally scribed for MYLA BIRCH MD ([facility]) on 01/05/18 at 14:19. Electronically submitted by Sola Bradford ([id number]). MYLA BIRCH MD Jan 05, 2018 14:19
--- NOTE | 2018-01-05 15:53 | PM & R (SOAP) Progress Note ---
Subjective This was a face to face visit with the patient. Date Seen by Provider: Jan 05, 2018 Time Seen by Provider: 14:45 Subjective/Events-last exam Patient was seen in her room this afternoon Patient Modified Independent for transfers All set for discharge tomorrow to home with HHC and spouse.CXR noted and INR 01-04-18 Date Identified: Jan 05, 2018 Time Identified: 15:40 Medication Intervention: Discharge meds for tomorrow reviewed Objective Physician Exam Last Set of Vital Signs Vital Signs Date Time Temp Pulse Resp B/P (MAP) Pulse Ox O2 Delivery O2 Flow Rate FiO2 01/05/18 11:38 Nasal Cannula 2.00 01/05/18 06:25 97.2 69 18 148/87 (107) 98 Capillary Refill : Less Than 3 Seconds I&O Intake and Output 01/05/18 00:00 Intake Total 1550 ml Balance 1550 ml Intake Oral 1550 ml # Voids 11 General: Alert, Oriented X3, Cooperative, No Acute Distress HEENT: Atraumatic, PERRLA, EOMI, Mucous Memb Moist/[place] Neck: Supple, No JVD Lungs: Clear to Auscultation Heart: Regular Rate Abdomen: Normal Bowel Sounds, Soft, No Tenderness Extremities: Other (Left calf tight but non tender Incision healing well Limited AROM left shoulder due to OA) Neuro: Sensation Intact, Other (Generalized weakaness more so left shoulder and left knee) Psych/Mental Status: Mental Status NL, Other (cognition intact) Results Lab Data Laboratory Tests 01/04/18 05:48: Prothrombin Time 25.6H, INR Comment 2.3H 01/04/18 14:55: White Blood Count 8.0, Red Blood Count 3.88L, Hemoglobin 11.3L, Hematocrit 36, Mean Corpuscular Volume 92, Mean Corpuscular Hemoglobin 29, Mean Corpuscular Hemoglobin Concent 32, Red Cell Distribution Width 16.0H, Platelet Count 238, Mean Platelet Volume 10.1, Neutrophils (%) (Auto) 64, Lymphocytes (%) (Auto) 22 , Monocytes (%) (Auto) 12, Eosinophils (%) (Auto) 2, Basophils (%) (Auto) 1, Neutrophils # (Auto) 5.1, Lymphocytes # (Auto) 1.8, Monocytes # (Auto) 0.9, Eosinophils # (Auto) 0.2, Basophils # (Auto) 0.0, Sodium Level 141, Potassium Level 4.6, Chloride Level 104, Carbon Dioxide Level 24, Anion Gap 13, Blood Urea Nitrogen 18, Creatinine 0.75, Estimat Glomerular Filtration Rate > 60, BUN/ Creatinine Ratio 24, Glucose Level 100, Calcium Level 9.2, B-Type Natriuretic Peptide 24.0 Assessment/Plan Assessment and Plan 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 and now with revsion after antibiotic beads and currently on Minocin Leiden v factor chronically anticoagulated Onychomycosis s/p debridement DPM Hammer 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
[2018-01-05] MEDS ORDERED: HYDR-3812 PO (15:58)
[2018-01-05 17:10] VITALS: BP 135/95
[2018-01-05] MEDS: warFARin 7.5 MG (COUMADIN) TAB PO SCH (17:22)
[2018-01-05] MEDS: TOLTERODINE LA 2 MG (DETROL LA) CAP PO SCH (21:35)
[2018-01-06 06:11] VITALS: BP 115/74
[2018-01-06] MEDS: KCL 20 MEQ TAB (K-DUR) PO SCH (06:39)
--- NOTE | 2018-01-06 08:03 | PM & R (SOAP) Progress Note ---
Subjective This was a face to face visit with the patient. Date Seen by Provider: Jan 06, 2018 Time Seen by Provider: 07:30 Subjective/Events-last exam Patient was seen in her room this AM Has progressed well.All set for discharge today to home with spouse and [facility] Objective Physician Exam Last Set of Vital Signs Vital Signs Date Time Temp Pulse Resp B/P (MAP) Pulse Ox O2 Delivery O2 Flow Rate FiO2 01/06/18 06:11 97.4 77 18 115/74 (88) 94 Room Air 01/05/18 11:38 2.00 Capillary Refill : Less Than 3 Seconds I&O Intake and Output 01/06/18 00:00 Intake Total 1480 ml Balance 1480 ml Intake Oral 1480 ml # Voids 12 General: Alert, Oriented X3, Cooperative, No Acute Distress HEENT: Atraumatic, PERRLA, EOMI, Mucous Memb Moist/[place] Neck: Supple, No JVD Lungs: Clear to Auscultation Heart: Regular Rate Abdomen: Normal Bowel Sounds, Soft, No Tenderness Extremities: Other (Left calf tight but non tender Incision healing well Limited AROM left shoulder due to OA) Neuro: Sensation Intact, Other (Generalized weakaness more so left shoulder and left knee) Psych/Mental Status: Mental Status NL, Other (cognition intact) Results Lab Data Laboratory Tests 01/04/18 05:48: Prothrombin Time 25.6H, INR Comment 2.3H 01/04/18 14:55: White Blood Count 8.0, Red Blood Count 3.88L, Hemoglobin 11.3L, Hematocrit 36, Mean Corpuscular Volume 92, Mean Corpuscular Hemoglobin 29, Mean Corpuscular Hemoglobin Concent 32, Red Cell Distribution Width 16.0H, Platelet Count 238, Mean Platelet Volume 10.1, Neutrophils (%) (Auto) 64, Lymphocytes (%) (Auto) 22 , Monocytes (%) (Auto) 12, Eosinophils (%) (Auto) 2, Basophils (%) (Auto) 1, Neutrophils # (Auto) 5.1, Lymphocytes # (Auto) 1.8, Monocytes # (Auto) 0.9, Eosinophils # (Auto) 0.2, Basophils # (Auto) 0.0, Sodium Level 141, Potassium Level 4.6, Chloride Level 104, Carbon Dioxide Level 24, Anion Gap 13, Blood Urea Nitrogen 18, Creatinine 0.75, Estimat Glomerular Filtration Rate > 60, BUN/ Creatinine Ratio 24, Glucose Level 100, Calcium Level 9.2, B-Type Natriuretic Peptide 24.0 Assessment/Plan Assessment and Plan Home today as per above F/U with PCP and ID Physician in [place] See orders Co-Morbidities that are continuing to impact the rehab process: (include details ) MYLA BIRCH MD Jan 06, 2018 08:03
[2018-01-06] MEDS: MAGNESIUM OXIDE (MAG-OX)400 MG TAB PO SCH (08:33)
[2018-01-06] MEDS: PRAMIPEXOLE 0.125 MG (MIRAPEX) TABLET PO SCH (08:34)
[2018-01-06] MEDS: predniSONE 5 MG TAB PO SCH (08:34)
[2018-01-06] MEDS: LORATADINE (CLARITIN) 10 MG TAB PO SCH (08:34)
[2018-01-06] MEDS: HYDROcodone/APAP 5 MG/325 MG (LORTAB) TAB PO PRN (08:34)
[2018-01-06] MEDS: guaiFENesin (MUCINEX) 600 MG TAB PO SCH (08:34)
[2018-01-06] MEDS: GABAPENTIN 300 MG (NEURONTIN) CAP PO SCH (08:34)
[2018-01-06] MEDS: MINOCYCLINE HCL 100 MG PO SCH (08:35)
[2018-01-06] MEDS: FLUTICASONE NASAL SPRAY (FLONASE) 16 GM BTL NS SCH (08:35)
[2018-01-06] MEDS: MILK OF MAGNESIA 400 MG/5 ML 30 ML UDC PO PRN (08:42)
--- NOTE | 2018-01-06 09:23 | Therapy Team Discharge Summary ---
Therapy Discharge Summary Discharge Recommendations Date of Discharge 01-06-18 Therapy D/C Recommendations: Home w/ Family Support, Occupational Therapy Home Care Occupational Therapy Pt. has been seen by occupational therapy to increase overall strength and independence with daily tasks. Pt. is able to complete most tasks with Mod I, and UE/LE dressing with Min assist. Pt. utilizes AE for dressing and ADL needs. Pt. is discharging home with spouse. Recommend follow up care with home health OT. Decreased Activ Tolerance, Decreased UE Strength PT Printing Machine Mechanic Goals Printing Machine Mechanic Goals PT Fpc Goals Time Frame: Jan 06, 2018 Transfers (B,C,W/C) (FIM): 4 Roll Left to Right (QC): 4 Sit to Lying (QC): 3 Lying-Sitting on Side/Bed(QC): 4 Sit to Stand (QC): 4 Chair/Ryq-bm-Lkndq Xfer(QC): 4 Car Transfer (QC): 4 Gait (FIM): 2 Distance: 100' Walk 10 feet (QC): 4 Walk 10ft-Uneven Surface(QC): 4 Walk 50ft with 2 Turns (QC): 4 Gait Level of Assist: 5 Gait Assistive Device: FWW OT Fpc Goals Printing Machine Mechanic Goals Time Frame: Jan 06, 2018 Eating (FIM): 6 (met) Eating (QC): 6 (met) Oral Hygiene (QC): 6 (met) Grooming(FIM): 6 (met) Bathing(FIM): 4 (met) Shower/Bathe Self (QC): 4 (met) Upper Body Dressing(FIM): 5 (not met) Upper Body Dressing (QC): 5 (not met) Lower Body Dressing(FIM): 4 (met) Lower Body Dressing (QC): 4 (met) On/Off Footwear (QC): 5 (met) Toileting(FIM): 5 (met) Toileting Hygiene (QC): 5 (met) Toilet/Commode Transfer(FIM): 5 (met) Toilet/Commode Transfer (QC): 5 (met) Shower Transfer(FIM): 4 (met) Additional Goals: 1-Demonstrate ADL Tasks, 2-Verbalize Understanding, 3- ImproveStrength/Ricardo 1=Demonstrate adherence to instructed precautions during ADL tasks. 2=Patient will verbalize/demonstrate understanding of assistive devices/ modifications for ADL. 3=Patient will improve strength/tolerance for activity to enable patient to perform ADL's. Speech Fpc Goals Printing Machine Mechanic Goals no goals established as skilled ST not indicated at this time. SHAKIRA DOE OT Jan 06, 2018 09:23
--- NOTE | 2018-01-06 09:43 | Therapy Team Discharge Summary ---
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 Upon evaluation patient performed bed mobility with SBA, supine to sit with min assist, sit to supine with mod assist, sit to stand min assist, transfers min assist, car transfer min assist, ambulated 40' with min assist using a rolling walker, and was able to propel a manual wheelchair 100' with SBA. Patient has been performing bed mobility and transfer training, balance and endurance training, functional strengthening, stair training, gait training, and education. Patient has made good progress and has met all of her intermission coordinator goals. Now, patient performs bed mobility and transfers with mod I, car transfer mod I, ambulates 160' with a rolling walker with mod I (including 50' with at least 2 turns of 90 degrees and 10' over an uneven surface), and can go up and down 4 steps using 2 handrails with CGA. Patient is being discharged from this facility today and will be discharged from PT at this time. Occupational Therapy Decreased Activ Tolerance, Decreased UE Strength PT Regional Controller Goals Regional Controller Goals PT Assisted Goals Time Frame: Jan 06, 2018 Transfers (B,C,W/C) (FIM): 4 Roll Left to Right (QC): 4 Sit to Lying (QC): 3 Lying-Sitting on Side/Bed(QC): 4 Sit to Stand (QC): 4 Chair/[place] Xfer(QC): 4 Car Transfer (QC): 4 Gait (FIM): 2 Distance: 100' Walk 10 feet (QC): 4 Walk 10ft-Uneven Surface(QC): 4 Walk 50ft with 2 Turns (QC): 4 Gait Level of Assist: 5 Gait Assistive Device: FWW OT Regional Controller Goals Assisted Goals Time Frame: Jan 06, 2018 Eating (FIM): 6 (met) Eating (QC): 6 (met) Oral Hygiene (QC): 6 (met) Grooming(FIM): 6 (met) Bathing(FIM): 4 (met) Shower/Bathe Self (QC): 4 (met) Upper Body Dressing(FIM): 5 (not met) Upper Body Dressing (QC): 5 (not met) Lower Body Dressing(FIM): 4 (met) Lower Body Dressing (QC): 4 (met) On/Off Footwear (QC): 5 (met) Toileting(FIM): 5 (met) Toileting Hygiene (QC): 5 (met) Toilet/Commode Transfer(FIM): 5 (met) Toilet/Commode Transfer (QC): 5 (met) Shower Transfer(FIM): 4 (met) Additional Goals: 1-Demonstrate ADL Tasks, 2-Verbalize Understanding, 3- ImproveStrength/Ricardo 1=Demonstrate adherence to instructed precautions during ADL tasks. 2=Patient will verbalize/demonstrate understanding of assistive devices/ modifications for ADL. 3=Patient will improve strength/tolerance for activity to enable patient to perform ADL's. Speech Regional Controller Goals Assisted Goals no goals established as skilled ST not indicated at this time. YOBANY HU PT Jan 06, 2018 09:43
== END 2018-01-06 12:01 | disposition home health service (06) | DRG 560 ==
PROVIDERS: ADMIT Physical Medicine & Rehabilitation; ATTEND Internal Medicine
DX: Z47.1 Aftercare following joint replacement surgery (principal); Z96.652 Presence of left artificial knee joint; M06.9 Rheumatoid arthritis, unspecified; G47.33 Obstructive sleep apnea (adult) (pediatric); D68.2 Hereditary deficiency of other clotting factors; M19.012 Primary osteoarthritis, left shoulder; G25.81 Restless legs syndrome; N32.81 Overactive bladder; I50.30 Unspecified diastolic (congestive) heart failure; D64.9 Anemia, unspecified; I38 Endocarditis, valve unspecified; R06.89 Other abnormalities of breathing; G60.9 Hereditary and idiopathic neuropathy, unspecified; B35.1 Tinea unguium; L60.0 Ingrowing nail; M20.41 Other hammer toe(s) (acquired), right foot; M20.42 Other hammer toe(s) (acquired), left foot; Z79.01 Long term (current) use of anticoagulants; Z99.81 Dependence on supplemental oxygen; Z87.891 Personal history of nicotine dependence; J30.9 Allergic rhinitis, unspecified
CPT/HCPCS: 36415; 71046; 80048; 80053; 83880; 85025; 85610; 85652; 86141

== ENCOUNTER 2018-01-23 09:06 | Inpatient (IN) | payer MEDICARE, OTHER | END 2018-02-13 10:30 | disposition home or self-care (01) ==

== ENCOUNTER 2018-04-05 15:25 | Inpatient (IN) | payer MEDICARE, OTHER ==
[~2018-04-05] VITALS: Ht 154.9 cm; Wt 90.7 kg
[2018-04-05] MEDS: SENNA W/DOCUSATE (SENOKOT S) TABLET PO SCH ×2 (09:00→21:00)
[~2018-04-05 15:25] MED LIST: ALPRAZolam 0.25 MG (XANAX) TAB PO PRN; BUME0.5T3 PO; CALC-870 PO; CALCIUM CARBONATE 500 MG (TUMS) TAB.CHEW PO PRN; DOCUSATE SODIUM 100 MG (COLACE) CAP PO PRN; GABA-488 PO; HYDR-3812 PO; HYDR-3820 PO; HYDROcodone/APAP 5 MG/325 MG (LORTAB) TAB PO PRN; IRON100V2 IV; LOPERAMIDE 2 MG (IMODIUM) CAP PO PRN; MAGN400O7 PO; MAGN500C15 PO; MINO100C2 PO; ONDANSETRON 4 MG (ZOFRAN) ORAL DISSOLVE TAB PO PRN; ONDANSETRON 4 MG/2 ML (SDV) Z0FRAN IVP PRN; OXYB5TAB9 PO; POTA-51 PO; PRAM0.257 PO; PRED5TAB PO; TIZA2TAB3 PO; WARF5TAB PO; WARF7.5T49 PO; diphenhydrAMINE 25 MG TAB (BENADRYL) PO PRN
[2018-04-06] MEDS: SENNA W/DOCUSATE (SENOKOT S) TABLET PO SCH ×3 (09:00→21:01)
--- NOTE | 2018-04-06 11:43 | NUR ---
DILLAN HIGH admitted to room 231, with an admitting diagnosis of DEBILITY, on 04/06/18 from [facility] via [facility], accompanied by STAFF. DILLAN HIGH introduced to surroundings, call light, bed controls, phone, TV, temperature control, lights, meal times, smoking policy, visitor policy, side rail policy, bathrooms and showers. Patient Rights given to patient in the handbook. DILLAN HIGH verbalizes understanding that [facility] is not responsible for the loss or damage to any personal effects or valuables that are kept in the patient's possession during their hospitalization. The following Patient Care Plans were discussed with the PATIENT: Discharge Planning, IMPAIRED MOBILITY, HIGH RISK: IMPAIRED SKIN INTEGRITY, HIGH RISK: INJURY, and KNOWLEDGE DEFICIT. DILLAN HIGH verbalizes understanding of Interdisciplinary Patient Education. Patient and family were informed about the Rapid Response Team and its purpose. Patient received Patient Rights Booklet, which includes Privacy Act Statement and Data Collection Information Summary.
--- OUTSIDE RECORDS SUMMARY | 2018-04-06 12:10 | XMS REPORT | Clinical Summary ---
Author Author [facility] Organization [facility] Address Unknown Phone Unavailable Care Team Providers [employer] Name Role Phone Devi Vasquez MD PCP Geraldo Puentes MD Unavailable Source Comments Some departments are not documenting in the electronic medical record. If you do not see the information that you expected, contact Release of Information in the Health Information Management department at [phone] for further assistance in locating additional records.[facility] Allergies No Known Allergies Medications End Date Status Medication Sig Dispensed Refills Start Date Active furosemide (LASIX) 20 mg Take 1 Tab by 0 tablet mouth Daily. Active celecoxib (CELEBREX) 200 Take 1 Cap by 0 mg capsule mouth Daily. Active predniSONE (DELTASONE) 5 Take 1 Tab by 0 mg tablet mouth Daily. Active methotrexate 2.5 mg Take 8 Tabs 0 tablet by mouth Every Friday. Active estradiol (ESTRACE) 2 mg Take 1 Tab by 0 tablet mouth Daily. Active CALCIUM + VITAMIN D PO Take 1 Tab by 0 mouth Twice Daily. Active cyclobenzaprine Take 10 mg by 0 (FLEXERIL) 10 mg tablet mouth At Bedtime Daily. Active MIRAPEX 0.25 mg Tab Take 0.25 mg 0 by mouth At Bedtime Daily. Active VITAMIN B-6 100 mg Tab Take 100 mg 0 by mouth Daily. Active docusate (COLACE) 100 mg Take 1 Cap by 60 0 /16/200 capsule mouth Twice 9 Daily. Active oxycodone/acetaminophen Take 1-2 Tabs 60 0 02/25/200 (PERCOCET) 5/325 mg by mouth 9 tablet Every 4-6 Hours as needed for Pain. Active trimethoprim/sulfamethoxa Take 1 Tab by 28 0 zole (BACTRIM DS) 160/800 mouth Twice 9 mg tablet Daily. Active Problems Problem Noted Date Wrist swelling 02/26/2008 Social History Date Tobacco Use Types Packs/Day Years Used Former Smoker Cigarettes 5.0 Comments: quit in 83--social smoker Alcohol Use Drinks/Week oz/Week Comments No Sex Assigned at Date Recorded Not on file Industry Job Start Date Occupation Not on file Not on file Not on file Travel End Travel History Travel Start No recent travel history available. Last Filed Vital Signs Time Taken Vital Sign Reading 02/26/2008 7:59 AM NURSING SERVICE ADMINISTRATOR Blood Pressure 120/73 02/26/2008 7:59 AM NURSING SERVICE ADMINISTRATOR Pulse 72 02/26/2008 7:59 AM NURSING SERVICE ADMINISTRATOR Temperature 37.1 C (98.8 F) - Respiratory Rate - 02/25/2008 11:00 PM NURSING SERVICE ADMINISTRATOR Oxygen Saturation 98% - Inhaled Oxygen - Concentration 02/24/2008 4:00 PM NURSING SERVICE ADMINISTRATOR Weight 65.8 kg (145 lb) 02/24/2008 4:00 PM NURSING SERVICE ADMINISTRATOR Height 157.5 cm (5' 2") 02/24/2008 4:00 PM NURSING SERVICE ADMINISTRATOR Body Mass Index 26.52 Plan of Treatment Health Maintenance Due Date Last Done Comments HEPATITIS C SCREENING 1948 PHYSICAL (COMPREHENSIVE) 04/13/1955 EXAM DTAP/TDAP VACCINES (1 - 1966 Tdap) BREAST CANCER SCREENING 1988 COLORECTAL CANCER 1998 SCREENING SHINGLES RECOMBINANT 1998 VACCINE (1 of 2) OSTEOPOROSIS 2013 SCREENING/MONITORING PNEUMONIA (PCV13/PPSV23) 2013 VACCINES (1 of 2 - PCV13) INFLUENZA VACCINE 09/10/2017 Results Not on filefrom Last 3 Months
--- OUTSIDE RECORDS SUMMARY | 2018-04-06 12:22 | XMS REPORT | Continuity of Care Document ---
Author Author [facility] Address Unknown Phone Unavailable Allergies Active Description Code Type Severity Reaction Onset Reported/Identified Relationship to Patient Clinical Status Yes FLAGYL [id number] Drug Allergy Moderate N/A Yes PCN (penicillin) [id number] Drug Allergy Moderate N/A Yes VANCOMYCIN [id number] Drug Allergy Moderate N/A Yes CEFTRIAXONE CEFTRIAXONE MODERATE Yes FLAGYL ER FLAGYL ER MILD Yes LEVAQUIN LEVAQUIN SEVERE Yes PENICILLIN G BENZATHINE PENICILLIN G BENZATH SEVERE Yes VANCOMYCIN VANCOMYCIN SEVERE Yes PENICILLIN V POTASSIUM PENICILLIN V POTASSIUM Drug Allergy null N/A Yes PENICILLIN V POTASSIUM PENICILLIN V POTASSIUM Drug Allergy [id number] N/A Yes BACLOFEN MODERATE OTHER Yes BACTRIM SEVERE DERMATOLOGICAL - REY Yes CEFTRIAXONE MODERATE DERMATOLOGICAL - REY Yes FLAGYL ER MILD DERMATOLOGICAL - REY Yes LEVAQUIN SEVERE DERMATOLOGICAL - REY Yes PENICILLIN G BENZATHINE SEVERE DERMATOLOGICAL - HIV Yes VANCOMYCIN SEVERE DERMATOLOGICAL - HIV Yes PENICILLIN V POTASSIUM PENICILLIN V POTASSIUM Drug Allergy N/A N/A Yes No Known Drug Allergies [id number] Drug Allergy Unknown N/A 04/09/2007 Yes Flagyl Drug Allergy Severe hives, fever 06/30/2015 Yes vancomycin Drug Allergy Severe hives, fever 06/30/2015 Yes Flagyl Drug Allergy Unknown N/A 08/08/2015 Yes vancomycin Drug Allergy Unknown N/A 08/08/2015 Yes No Known Drug Category Allergy Drug Allergy Unknown Unknown 2015 Yes PCN (obsolete) Drug Allergy Unknown Unknown 08/08/2015 Yes No Known Environment Allergy Environmental Allergy Unknown Unknown 08/08/2015 Yes No Known Food Allergy Food Allergy Unknown Unknown 08/08/2015 Yes vancomycin vancomycin Drug Allergy Severe HIGH FEVER, RASH 09/17/2016 Yes vancomycin vancomycin Drug Allergy Severe RESPIRATORY PROBLEMS, RASH 2017 Yes ceftriaxone ceftriaxone Drug Allergy Mild NAUSEA/VOMITING 08/05/2017 Yes diazepam diazepam Drug Allergy Mild HALLUCINATIONS 08/05/2017 Yes levofloxacin levofloxacin Drug Allergy Mild NAUSEA/VOMITING 08/05/2017 Yes metronidazole metronidazole Drug Allergy Mild NAUSEA 08/05/2017 Yes Penicillins Penicillins Drug Allergy Mild NAUSEA/VOMITING 08/05/2017 Yes sulfamethoxazole sulfamethoxazole Drug Allergy Unknown NAUSEA/VOMITING Yes trimethoprim trimethoprim Drug Allergy Unknown NAUSEA/VOMITING 08/05/2017 Yes cefTRIAXone Drug Allergy Unknown Rash 09/03/2017 Yes Sulfa (Sulfonamide Antibiotics) Drug Allergy Moderate unknown 2017 Yes baclofen baclofen Drug Allergy Severe RESPIRATORY/HIVES/HYPOTENSION 2017 Yes baclofen [id number] Drug Allergy Severe N/A 12/16/2017 Yes vancomycin [id number] Drug Allergy Severe N/A 12/16/2017 Yes cefuroxime [id number] Drug Allergy Unknown N/A 12/16/2017 Yes cyclobenzaprine [id number] Drug Allergy Unknown N/A 12/16/2017 Yes levofloxacin [id number] Drug Allergy Unknown N/A 12/16/2017 Yes metronidazole [id number] Drug Allergy Unknown N/A 12/16/2017 Yes Penicillins [id number] Drug Allergy Unknown N/A 12/16/2017 Yes Levaquin Drug Allergy Unknown Fever, diarrhea, and upset stomach Yes penicillins Drug Allergy Unknown Unknown 03/23/2018 Medications Medication Packaging Start Date Stop Date Route Dosage Sig Cephalexin Monohydrate Capsule 04/201006/30/2015 500 MG 1 (one) BID ORAL for 30 (thirty) DAYS oxybutynin chloride 5 mg tablet Tablet 06/30/2015 5 mg 1 (one) Tablet by Oral route four times per day pramipexole 0.25 mg tablet Tablet 06/30/2015 0.25 mg take 1 (one) Tablet by Oral route two times per day Klor-Con M20 mEq tablet,extended release 06/30/2015 09/15/2017 20 mEq 1 (one) by Oral route daily cephALEXin 500 mg tablet Tablet 06/24/2016 500 mg take 1 (one) Tablet by Oral route two times per day for 30 days Arava 20 mg tablet 06/30/2015 09/15/2017 20 mg take 1 (one) Tablet by Oral route daily Lasix 40 mg tablet 06/30/2015 09/03/2017 40 mg take 1 (one) Tablet by Oral route daily magnesium 250 mg tablet Tablet 250 mg take 2 (two) Tablet by Oral route daily Calcium 600 600 mg (1,500 mg) tablet 08/08/2015 600 mg (1,500 mg) 1 (one) by Oral route daily oxybutynin chloride 5 mg tablet Tablet 08/08/2015 5 mg take 1 (one) Tablet by Oral route three times per day pramipexole 0.25 mg tablet Tablet 08/08/2015 0.25 mg take 1 (one) Tablet by Oral route two times per day Klor-Con M20 mEq tablet,extended release 08/08/2015 20 mEq 1 (one) by Oral route daily HYDROcodone 10 mg-acetaminophen 325 mg tablet Tablet 08/08/2015 10-325 mg take 1 (one) Tablet by Oral route four times per day gabapentin 300 mg capsule Capsule 08/08/2015 300 mg take 1 (one) Capsule by Oral route three times per day cephALEXin 500 mg tablet Tablet 500 mg take 1 (one) Tablet by Oral route two times per day leflunomide 20 mg tablet Tablet 20 mg take 1 (one) Tablet by Oral route two times per day predniSONE 5 mg tablet 2015 5 mg take 1 ( one) Tablet by Oral route daily Lasix 40 mg tablet 08/08/2015 40 mg take 1 (one) Tablet by Oral route daily PRAMIPEXOLE TAB 0.25 MG (MIRAPEX) Dose(s) 01/04/2016 01/14/2016 BID&0800,2000 POLY/BACI/NEOM OINT OINT 0 (NEOSPORIN) jonathan 01/04/2016 01/06/2016 BID&0800,2000 OXYBUTYNIN TAB 5 MG (DITROPAN) Dose(s) 01/04/2016 02/03/2016 TID&0800,1400,2000 GABAPENTIN CAP 300 MG (NEURONTIN) Dose(s) 01/04/2016 01/13/2016 QHS&2100 ACETAMINOPHEN ORAL TABLET 325mg(Tylenol) MG 01/04/2016 01/11/2016 PRN Q4H GABAPENTIN CAP 300 MG (NEURONTIN) MG 01/04/2016 01/11/2016 Q8H&0600,1400,2200 CYCLOBENZAPRINE TAB 5 MG (FLEXERIL) Dose(s) 01/04/2016 01/11/2016 PRN Q8H HYDROCODONE/APAP 10/325 TAB 10 /325 (GORDON-TAB 10/325) Dose(s) 01/04/2016 01/11/2016 Q4H&0200,0600,1000,1400,1800,2200 GABAPENTIN CAP 300 MG (NEURONTIN) MG 01/05/2016 01/10/2016 Q6H&0600,1200,1800 POTASSIUM CHLORIDE TAB 20 MEQ (K-DUR) Dose(s) 01/05/2016 01/14/2016 Daily&0900 FOLIC ACID TAB 1 MG Dose(s) 201501/11/2016 Daily&0900 FUROSEMIDE TAB 40 MG (LASIX) MG 01/14/2016 Daily&0900 FUROSEMIDE TAB 20 MG (LASIX) Dose(s) 01/05/2016 01/12/2016 PRN Q48H PREDNISONE TAB 5 MG (DELTASONE) Dose(s) 01/05/2016 01/14/2016 Daily&0900 ACETAMINOPHEN ORAL TABLET 325mg(Tylenol) MG 01/06/2016 01/06/2016 PRN ONCE CEFTRIAXONE INJ 1 GM (ROCEPHIN) GM 01/06/2016 01/06/2016 ONCE&1136 GABAPENTIN CAP 300 MG (NEURONTIN) Dose(s) 01/06/2016 01/11/2016 Q6H&0600,1200,1800 GABAPENTIN CAP 300 MG (NEURONTIN) Dose(s) 01/06/2016 01/13/2016 TID&0800,1400,2000 OXYBUTYNIN TAB 5 MG (DITROPAN) Dose(s) 01/06/2016 02/05/2016 TID&0800,1400,2000 CYCLOBENZAPRINE TAB 5 MG (FLEXERIL) Dose(s) 01/06/2016 01/13/2016 PRN Q8H HYDROCODONE/APAP 10/325 TAB 10 /325 (GORDON-TAB 10/325) Dose(s) 01/06/2016 01/16/2016 PRN Q4H CEFTRIAXONE PREMIX IV BAG IV 1 GM/50CC (ROCEPHIN PREMIX IV BAG) GM 01/06/2016 01/12/2016 Daily&1400 PRAMIPEXOLE TAB 0.25 MG (MIRAPEX) Dose(s) 01/06/2016 02/05/2016 BID&0800,2000 FAMOTIDINE TAB 20 MG (PEPCID) Dose(s) 01/06/2016 01/13/2016 BID&0800,2000 ACETAMINOPHEN ORAL TABLET 325mg(Tylenol) MG 01/06/2016 01/13/2016 PRN Q4H MAGNESIUM OXIDE TAB 400 MG (MAG-OX) Dose(s) 01/07/2016 02/05/2016 Daily&0900 POTASSIUM CHLORIDE TAB 20 MEQ (K-DUR) Dose(s) 01/07/2016 02/05/2016 Daily&0900 GABAPENTIN CAP 300 MG (NEURONTIN) Dose(s) 01/07/2016 01/13/2016 Daily&0900 FOLIC ACID TAB 1 MG Dose(s) 201501/13/2016 Daily&0900 FUROSEMIDE TAB 40 MG (LASIX) Dose(s) 01/07/2016 01/16/2016 Daily&0900 FUROSEMIDE TAB 20 MG (LASIX) Dose(s) 01/07/2016 01/14/2016 PRN Q48H CALCIUM 500MG TAB 500 MG (OSCAL) Dose(s) 01/07/2016 01/16/2016 Daily&0900 WARFARIN TAB 5 MG (COUMADIN) Dose(s) 01/07/2016 01/13/2016 Daily&0900 PREDNISONE TAB 5 MG (DELTASONE) Dose(s) 01/07/2016 02/05/2016 Daily&0900 WARFARIN TAB 5 MG (COUMADIN) Dose(s) 01/07/2016 01/13/2016 Daily&1800 GABAPENTIN CAP 300 MG (NEURONTIN) MG 01/07/2016 01/13/2016 QHS&2100 CLINDAMYCIN CAP 150 MG (CLEOCIN) MG 01/08/2016 01/15/2016 Q8H&0600,1400,2200 GABAPENTIN CAP 300 MG (NEURONTIN) MG 01/09/2016 01/09/2016 ONCE&1231 Fluarix Quad 9534-3409 (PF) (Influenza [id number] 36mos up(PF)) IM syringe ML 01/11/2016 01/11/2016 ONCE&1154 FENTANYL AMP INJ 100 MCG/2CC MCG 01/16/2016 ONCE&1030 FENTANYL AMP INJ 100 MCG/2CC MCG 01/16/2016 ONCE&1144 ACETAMINOPHEN TAB 500 MG (TYLENOL) MG 01/16/2016 01/16/2016 PRN ONCE ACETAMINOPHEN ORAL TABLET 325mg(Tylenol) Dose( s) 01/16/2016 01/23/2016 PRN Q4H ONDANSETRON VIAL INJ 4 MG/2CC (ZOFRAN 2CC VIAL) MG 01/16/2016 01/23/2016 PRN Q4H OXYBUTYNIN TAB 5 MG (DITROPAN) Dose(s) 01/16/2016 02/15/2016 TID&0800,1400,2000 CYCLOBENZAPRINE TAB 5 MG (FLEXERIL) Dose(s) 01/16/2016 01/23/2016 PRN Q8H HYDROCODONE/APAP 10/325 TAB 10 /325 (GORDON-TAB 10/325) Dose(s) 01/16/2016 01/23/2016 Q4H&0200,0600,1000,1400,1800,2200 TIGECYCLINE VIAL INJ 50 MG (TYGACIL VIAL) MG 01/16/2016 01/16/2016 ONCE&1418 NORMAL SALINE 0.9 % (NS 100cc) (plain bag) ml 01/16/2016 01/16/2016 ONCE&1508 LACTOBACILLUS BULGARIS TAB 0 (LACTINEX BULGARIS) tab 01/16/2016 01/26/2016 QID&0800,1200,1700,2200 GABAPENTIN CAP 300 MG (NEURONTIN) Dose(s) 01/16/2016 01/23/2016 QID&0800,1200,1700,2200 WARFARIN TAB 5 MG (COUMADIN) Dose(s) 01/16/2016 01/22/2016 Daily&1800 TIGECYCLINE VIAL INJ 50 MG (TYGACIL VIAL) MG 01/16/2016 01/26/2016 Q12H&0600,1800 PRAMIPEXOLE TAB 0.25 MG (MIRAPEX) Dose(s) 01/16/2016 01/26/2016 BID&0800,2000 FAMOTIDINE TAB 20 MG (PEPCID) Dose(s) 01/16/2016 01/23/2016 BID&0800,2000 DIPHENHYDRAMINE TAB 25 MG (BENADRYL) MG 01/16/2016 01/23/2016 PRN BID NORMAL SALINE 0.9 % (NS 100cc) (plain bag) ml 01/17/2016 01/23/2016 Q12H&0600,1800 POTASSIUM CHLORIDE TAB 20 MEQ (K-DUR) Dose(s) 01/17/2016 01/26/2016 Daily&0900 FOLIC ACID TAB 1 MG Dose(s) 201501/23/2016 Daily&0900 FUROSEMIDE TAB 40 MG (LASIX) Dose(s) 01/17/2016 01/26/2016 Daily&0900 FUROSEMIDE TAB 20 MG (LASIX) Dose(s) 01/17/2016 01/24/2016 PRN Q48H CALCIUM 500MG TAB 500 MG (OSCAL) Dose(s) 01/17/2016 01/26/2016 Daily&0900 WARFARIN TAB 5 MG (COUMADIN) Dose(s) 01/17/2016 01/23/2016 Daily&0900 PREDNISONE TAB 5 MG (DELTASONE) Dose(s) 01/17/2016 01/26/2016 Daily&0900 NORMAL SALINE 0.9 % (NS 100cc) (plain bag) ml 01/17/2016 01/17/2016 ONCE&1759 WARFARIN TAB 2.5 MG (COUMADIN) MG 01/17/2016 01/23/2016 QPM&1800 NORMAL SALINE 500CC IV BAG INJ 0.9 % (NS 500CC IV BAG) ml 01/31/2016 01/31/2016 ONCE&1258 GABAPENTIN CAP 300 MG (NEURONTIN) Dose(s) 02/05/2016 02/05/2016 Daily&2100 ACETAMINOPHEN ORAL TABLET 325mg(Tylenol) MG 04/29/2016 04/29/2016 ONCE&2358 HYDROCODONE/APAP 10/325 TAB 10 /325 (GORDON-TAB 10/325) TAB 04/30/2016 05/06/2016 Q4H&0200,0600,1000,1400,1800,2200 NORMAL SALINE 1000CC IV BAG INJ 0.9 % (NS 1000CC IV BAG) ml 04/30/2016 05/15/2016 CONTINUOUSEVERY 0 Hour IBUPROFEN TAB 600 MG (MOTRIN) MG 05/07/2016 PRN Q6H ACETAMINOPHEN ORAL TABLET 325mg(Tylenol) MG 04/30/2016 05/07/2016 PRN Q6H CYCLOBENZAPRINE TAB 5 MG (FLEXERIL) MG 04/30/2016 05/07/2016 PRN Q8H PRAMIPEXOLE TAB 0.25 MG (MIRAPEX) MG 04/30/2016 05/09/2016 BID&0800,2000 FAMOTIDINE TAB 20 MG (PEPCID) MG 05/06/2016 BID&0800,2000 GABAPENTIN CAP 300 MG (NEURONTIN) MG 04/30/2016 05/06/2016 QID&0800,1200,1700,2200 OXYBUTYNIN TAB 5 MG (DITROPAN) MG 04/30/2016 05/29/2016 TID&0800,1400,2000 doxycycline hyclate 100mg capsule (Vibramycin) MG 04/30/2016 05/09/2016 BID&0800,2000 POTASSIUM CHLORIDE TAB 20 MEQ (K-DUR) MEQ 04/30/2016 05/09/2016 Daily&0900 FOLIC ACID TAB 1 MG MG 04/30/2016 05/06/2016 Daily& 0900 FUROSEMIDE TAB 40 MG (LASIX) MG 05/09/2016 Daily&0900 FUROSEMIDE TAB 20 MG (LASIX) MG 05/07/2016 PRN Q48H CALCIUM 500MG TAB 500 MG (OSCAL) MG 04/30/2016 05/09/2016 Daily&0900 WARFARIN TAB 5 MG (COUMADIN) MG 05/06/2016 Daily&0900 PREDNISONE TAB 5 MG (DELTASONE) MG 04/30/2016 05/09/2016 Daily&0900 NORMAL SALINE 1000CC IV BAG INJ 0.9 % (NS 1000CC IV BAG) ml 04/30/2016 05/15/2016 CONTINUOUSEVERY 0 Hour WARFARIN TAB 5 MG (COUMADIN) MG 05/07/2016 QPM&1800 BUMETANIDE VIAL INJ 1 MG/4CC (BUMEX) MG 05/02/2016 05/11/2016 BID&0800,2000 Bactroban cream 06/10/2016 cream 2% 22 CEFDINIR CAP 300 MG (OMNICEF) MG 07/06/2016 ONCE&2145 Valium tablet 08/01/2016 tablet 5 mg 30 TIZANIDINE TAB 4 MG (ZANAFLEX) MG 08/20/2016 08/27/2016 PRN Q4H HYDROCODONE/APAP 10/325 TAB 10 /325 (GORDON-TAB 10/325) TAB 08/20/2016 08/27/2016 Q4H&0200,0600,1000,1400,1800,2200 DIAZEPAM SYRINGE INJ 5 MG/CC (VALIUM SYRINGE) MG 08/20/2016 08/20/2016 ONCE&1103 GABAPENTIN CAP 300 MG (NEURONTIN) MG 08/20/2016 08/27/2016 QID&0800,1200,1700,2200 DIAZEPAM TAB 5 MG (VALIUM) MG 08/2008/27/2016 PRN Q6H TRAMADOL TAB 50 MG (ULTRAM) MG 12/201608/30/2016 Q8H&0600,1400,2200 OXYBUTYNIN TAB 5 MG (DITROPAN) MG 08/20/2016 09/19/2016 TID&0800,1400,2000 PRAMIPEXOLE TAB 0.25 MG (MIRAPEX) MG 08/20/2016 08/30/2016 BID&0800,2000 POTASSIUM CHLORIDE TAB 20 MEQ (K-DUR) MEQ 08/21/2016 09/19/2016 Daily&0900 FOLIC ACID TAB 1 MG MG 08/21/2016 08/27/2016 Daily& 0900 CALCIUM 500MG TAB 500 MG (OSCAL) MG 08/21/2016 08/30/2016 Daily&0900 WARFARIN TAB 5 MG (COUMADIN) MG 01/201708/27/2016 Daily&0900 PREDNISONE TAB 5 MG (DELTASONE) MG 08/21/2016 09/19/2016 Daily&0900 [place] tablet 09/02/2016 tablet 10-325 mg 100 WARFARIN TAB 5 MG (COUMADIN) MG 05/201609/19/2016 QPM&1800 ORPHENADRINE INJ 60 MG/2CC (NORFLEX) MG 09/13/2016 09/13/2016 ONCE&1830 DIAZEPAM TAB 5 MG (VALIUM) MG 09/1309/13/2016 PRN ONCE PRAMIPEXOLE TAB 0.25 MG (MIRAPEX) MG 09/13/2016 09/20/2016 BID&0800,2000 OXYBUTYNIN TAB 5 MG (DITROPAN) MG 09/13/2016 09/20/2016 TID&0800,1400,2000 Doxycycline hyclate 100mg capsule (Vibramycin) MG 09/13/2016 09/18/2016 BID&0800,2000 SENNA CONC/DOCUSATE TAB (SENOKOT S) Dose(s) 09/13/2016 09/19/2016 QHS&2100 GABAPENTIN CAP 300 MG (NEURONTIN) MG 09/13/2016 09/19/2016 QHS&2200 TIZANIDINE TAB 4 MG (ZANAFLEX) MG 09/13/2016 09/20/2016 PRN Q8H HYDROCODONE/APAP 10/325 TAB 10 /325 (GORDON-TAB 10/325) TAB 09/13/2016 09/23/2016 PRN Q4H DIAZEPAM TAB 5 MG (VALIUM) MG 09/1309/20/2016 PRN Q8H GABAPENTIN CAP 300 MG (NEURONTIN) MG 09/13/2016 09/20/2016 Q6H&0600,1200,1800,2359 TRAMADOL TAB 50 MG (ULTRAM) MG 05/201609/23/2016 PRN Q6H GABAPENTIN CAP 300 MG (NEURONTIN) MG 09/14/2016 09/21/2016 Q6H&0000,0600,1200,1800 SALINE NASAL MIST LIQ (OCEAN SPRAY) SPRAYS 09/14/2016 09/24/2016 Q6H&0249,0849,1449,2049 MAGNESIUM OXIDE TAB 400 MG (MAG-OX) MG 09/14/2016 09/20/2016 Daily&0900 POTASSIUM CHLORIDE TAB 20 MEQ (K-DUR) MEQ 09/14/2016 09/20/2016 Daily&0900 FOLIC ACID TAB 1 MG MG 09/14/2016 09/20/2016 Daily& 0900 CALCIUM CARBONATE TAB 500 MG (TUMS) MG 09/14/2016 09/20/2016 Daily&0900 BUMETANIDE TAB 0.5 MG (BUMEX) MG 09/20/2016 Daily&0900 PREDNISONE TAB 5 MG (DELTASONE) MG 09/14/2016 09/20/2016 Daily&0900 BUMETANIDE TAB 0.5 MG (BUMEX) MG 09/20/2016 Q24H&1300 WARFARIN TAB 5 MG (COUMADIN) MG 06/201609/20/2016 QPM&1800 GABAPENTIN CAP 300 MG (NEURONTIN) MG 09/14/2016 09/20/2016 QHS&2200 [place] tablet 11/11/2016 tablet 10-325 mg 100 DIAZEPAM SYRINGE INJ 5 MG/CC (VALIUM SYRINGE) MG 03/04/2017 03/04/2017 PRN ONCE TETANUS,DIPTH,PERT ADULT INJ 0 (ADACEL SYRINGE) ml 03/04/2017 03/04/2017 ONCE&1611 POLY/BACI/NEOM OINT OINT (NEOSPORIN) jonathan 03/04/2017 03/04/2017 ONCE&1611 CEPHALEXIN CAP 500 MG (KEFLEX) MG 03/04/2017 03/04/2017 ONCE&1707 ACETAMINOPHEN ORAL TABLET 325mg(Tylenol) MG 03/15/2017 03/15/2017 ONCE&1335 NORMAL SALINE 1000CC IV BAG INJ 0.9 % (NS 1000CC IV BAG) ml 03/15/2017 03/30/2017 CONTINUOUSEVERY 0 Hour OXYBUTYNIN TAB 5 MG (DITROPAN) Dose(s) 03/15/2017 03/22/2017 TID&0800,1400,2000 TIZANIDINE TAB 4 MG (ZANAFLEX) Dose(s) 03/15/2017 03/22/2017 PRN Q8H LACTATED RINGERS 1000CC IV BAG INJ ml 03/15/2017 03/22/2017 CONTINUOUSEVERY 0 Hour OSELTAMIVIR CAP 75 MG (TAMIFLU) MG 03/15/2017 03/15/2017 ONCE&1450 D5 1/2 NS 500CC IV BAG INJ ml 03/1503/22/2017 CONTINUOUSEVERY 0 Hour AZITHROMYCIN TAB 500 MG (ZITHROMAX) MG 03/15/2017 03/19/2017 Daily&0900 IPRATROPIUM/ALBUTEROL INH SOLN (DUO-NEB INH SOLN) MLS 03/15/2017 03/22/2017 QID&0600,1100,1600,2100 TRAMADOL TAB 50 MG (ULTRAM) Dose(s) 03/15/2017 03/25/2017 PRN Q6H HYDROCODONE/APAP 10/325 TAB 10 /325 (GORDON-TAB 10/325) Dose(s) 03/15/2017 03/25/2017 PRN Q6H DIAZEPAM TAB 5 MG (VALIUM) Dose(s) 03/15/2017 03/22/2017 PRN Q6H PANTOPAZOLE VIAL INJ 40 MG (PROTONIX IV) MG 03/15/2017 03/24/2017 Daily&1800 OSELTAMIVIR CAP 75 MG (TAMIFLU) MG 03/15/2017 03/25/2017 BID&0800,2000 PRAMIPEXOLE TAB 0.25 MG (MIRAPEX) Dose(s) 03/15/2017 03/22/2017 BID&0800,2000 CALMOSEPTINE OINT TUBE (RISAMINE OINT) jonathan 03/15/2017 03/22/2017 PRN QID ACETAMINOPHEN ORAL TABLET 325mg(Tylenol) MG 03/16/2017 03/26/2017 PRN Q6H MAGNESIUM OXIDE TAB 400 MG (MAG-OX) Dose(s) 03/16/2017 03/22/2017 Daily&0900 POTASSIUM CHLORIDE TAB 20 MEQ (K-DUR) Dose(s) 03/16/2017 03/22/2017 Daily&0900 FOLIC ACID TAB 1 MG Dose(s) 201703/22/2017 Daily&0900 CALCIUM CARBONATE TAB 500 MG (TUMS) Dose(s) 03/16/2017 03/22/2017 Daily&0900 BUMETANIDE TAB 0.5 MG (BUMEX) Dose(s) 03/16/2017 03/22/2017 Q24H&0900 PREDNISONE TAB 5 MG (DELTASONE) Dose(s) 03/16/2017 03/22/2017 Daily&0900 WARFARIN TAB 5 MG (COUMADIN) MG 05/201703/22/2017 QPM&1800 WARFARIN TAB 2 MG (COUMADIN) MG 05/201703/22/2017 QPM&1800 GABAPENTIN CAP 300 MG (NEURONTIN) MG 03/17/2017 03/24/2017 Q6H&0000,0600,1200,1800 GABAPENTIN CAP 300 MG (NEURONTIN) MG 03/17/2017 03/23/2017 QHS&2100 MILK OF MAGNESIA LIQ ml 03/19/2017 04/18/2017 PRN Daily ALBUTEROL INHALER MDI 8 GM (VENTOLIN HFA) PUFF (S) 03/20/2017 03/30/2017 QID&0600,1100,1600,2100 SALINE NASAL MIST LIQ (OCEAN SPRAY) SPRAYS 03/20/2017 03/20/2017 ONCE&1119 TIZANIDINE TAB 4 MG (ZANAFLEX) MG 04/03/2017 04/10/2017 PRN Q8H OSELTAMIVIR CAP 75 MG (TAMIFLU) MG 04/03/2017 04/08/2017 BID&0800,2000 NORMAL SALINE 1000CC IV BAG INJ 0.9 % (NS 1000CC IV BAG) ml 04/03/2017 04/18/2017 CONTINUOUSEVERY 0 Hour Doxycycline hyclate 100mg capsule (Vibramycin) MG 04/03/2017 04/13/2017 EVERY 12 Hour&0306,1506 IPRATROPIUM/ALBUTEROL INH SOLN (DUO-NEB INH SOLN) MLS 04/03/2017 04/10/2017 QID&0600,1100,1600,2100 PRAMIPEXOLE TAB 0.25 MG (MIRAPEX) Dose(s) 04/03/2017 04/03/2017 ONCE&1742 GABAPENTIN CAP 300 MG (NEURONTIN) MG 04/03/2017 04/10/2017 Q6H&0600,1200,1800,2359 HYDROCODONE/APAP 10/325 TAB 10 /325 (GORDON-TAB 10/325) TAB 04/03/2017 04/13/2017 PRN Q4H WARFARIN TAB 2.5 MG (COUMADIN) MG 04/03/2017 04/09/2017 Q1WK&1800 WARFARIN TAB 5 MG (COUMADIN) MG 04/09/2017 Daily&1800 OXYBUTYNIN TAB 5 MG (DITROPAN) MG 04/03/2017 04/10/2017 TID&0800,1400,2000 SALINE NASAL MIST LIQ (OCEAN SPRAY) SPRAYS 04/03/2017 04/10/2017 PRN BID GABAPENTIN CAP 300 MG (NEURONTIN) MG 04/03/2017 04/09/2017 QHS&2100 MAGNESIUM OXIDE TAB 400 MG (MAG-OX) MG 04/04/2017 04/10/2017 Daily&0900 PRAMIPEXOLE TAB 0.25 MG (MIRAPEX) MG 04/04/2017 04/10/2017 BID&0900,2100 POTASSIUM CHLORIDE TAB 20 MEQ (K-DUR) MEQ 04/04/2017 04/10/2017 Daily&0900 SENNA CONC/DOCUSATE TAB (SENOKOT S) TAB 04/04/2017 04/11/2017 PRN Daily CALCIUM CARBONATE TAB 500 MG (TUMS) MG 04/04/2017 04/10/2017 Daily&0900 PREDNISONE TAB 5 MG (DELTASONE) MG 04/04/2017 04/10/2017 Daily&0900 BUMETANIDE TAB 0.5 MG (BUMEX) MG 04/10/2017 Q24H&1300 GABAPENTIN CAP 300 MG (NEURONTIN) MG 04/04/2017 04/07/2017 TID&0600,1200,1800 [place] tablet 06/12/2017 tablet 10-325 mg 75 WARFARIN TAB 5 MG (COUMADIN) MG 07/25/2017 EVERY 24 Hour&0259 ACETAMINOPHEN TAB 500 MG (TYLENOL) MG 07/25/2017 07/25/2017 PRN ONCE GABAPENTIN CAP 300 MG (NEURONTIN) MG 07/25/2017 08/23/2017 Q6H&0600,1200,1800,2359 TIZANIDINE TAB 4 MG (ZANAFLEX) MG 07/25/2017 08/24/2017 PRN Q8H TRAMADOL TAB 50 MG (ULTRAM) MG 08/04/2017 PRN Q6H PRAMIPEXOLE TAB 0.25 MG (MIRAPEX) MG 07/25/2017 08/23/2017 BID&0800,2000 OXYBUTYNIN TAB 5 MG (DITROPAN) MG 07/25/2017 08/23/2017 TID&0800,1400,2000 CIPROFLOXACIN TAB 500 MG (CIPRO) MG 07/25/2017 08/03/2017 BID&0800,2000 CALMOSEPTINE OINT TUBE (RISAMINE OINT) jonathan 07/25/2017 08/01/2017 PRN QID MAGNESIUM OXIDE TAB 400 MG (MAG-OX) MG 07/25/2017 07/31/2017 Daily&0900 POTASSIUM CHLORIDE TAB 20 MEQ (K-DUR) MEQ 07/25/2017 08/23/2017 Daily&0900 Leflunomide oral tablet 20mg (Arava) MG 07/25/2017 08/23/2017 Daily&0900 PREDNISONE TAB 5 MG (DELTASONE) MG 07/25/2017 08/23/2017 Daily&0900 HYDROCODONE/APAP 10/325 TAB 10 /325 (GORDON-TAB 10/325) TAB 07/25/2017 07/25/2017 ONCE&0930 Meropenem-0.9% sodium chloride IV piggyback 1 Gm GM 07/25/2017 08/01/2017 Q8H&0200,1000,1800 HYDROCODONE/APAP 10/325 TAB 10 /325 (GORDON-TAB 10/325) TAB 07/25/2017 08/04/2017 PRN Q4H GABAPENTIN CAP 300 MG (NEURONTIN) MG 07/25/2017 08/01/2017 Q12H&0600,1800 WARFARIN TAB 5 MG (COUMADIN) Dose(s) 07/25/2017 07/31/2017 QPM&1800 GABAPENTIN CAP 300 MG (NEURONTIN) MG 07/25/2017 07/31/2017 QHS&2100 GABAPENTIN CAP 300 MG (NEURONTIN) MG 07/26/2017 08/01/2017 Daily&1200 WARFARIN TAB 5 MG (COUMADIN) MG 07/26/2017 ONCE&1800 BUMETANIDE TAB 0.5 MG (BUMEX) MG 07/27/2017 ONCE&1310 WARFARIN TAB 5 MG (COUMADIN) MG 07/27/2017 ONCE&1858 Bactroban cream 07/28/2017 cream 2% 1 Mag-G 27 mg (500 mg) tablet Tablet 09/03/2017 27 mg (500 mg) 1 (one) by Oral route daily Zanaflex 6 mg capsule Capsule 09/0312/29/2017 6 mg take 1 (one) Capsule by Oral route every 8 hours as needed Mirapex 0.5 mg tablet Tablet 2017 0.5 mg 1 (one) Tablet by Oral route two times per day Mirapex 0.25 mg tablet Tablet 09/0309/15/2017 0.25 mg take 1 (one) Tablet by Oral route two times per day gabapentin 300 mg capsule Capsule 09/03/2017 300 mg take 1 (one) Capsule by Oral route three times per day bumetanide 0.5 mg tablet Tablet 0.5 mg take 1 (one) Tablet by Oral route three times per day Coumadin 7.5 mg tablet Tablet 09/03 7.5 mg take 1 (one) Tablet by Oral route every Friday Coumadin 5 mg tablet Tablet 2017 5 mg 1 (one) Tablet by Oral route every evening [place] 10 mg-325 mg tablet Tablet 10-325 mg take 1 (one) Tablet by Oral route every 4 hours as needed cefepime 2 gram solution for injection Vial 09/15/2017 12/29/2017 2 gram 1 (one) every 8 hours Valium 2 mg tablet Tablet 201710/03/2017 2 mg take 1 (one) Tablet by Oral route every 12 hours calcium carbonate 400 mg calcium (1,000 mg) chewable tablet Tablet 10/03/2017 400 mg calcium (1,000 mg) 1 (one) by Oral route daily as needed magnesium hydroxide 400 mg/5 mL oral suspension Bottle 10/03/2017 400 mg/5 mL take 30 Milliliter(s) by Oral route daily as needed Biscolax 10 mg rectal suppository Box 10/03/2017 12/29/2017 10 mg take 1 (one) Suppository by Rectal route daily as needed tiZANidine 4 mg tablet Tablet 10/0312/29/2017 4 mg take 1.5 (one and 1/2) Tablet by Oral route every 8 hours Valium 2 mg tablet Tablet 201712/29/2017 2 mg take 1 (one) Tablet by Oral route every 6 hours as needed oxyCODONE ER 10 mg tablet,crush resistant,extended release 12 hr Tablet 10/03/2017 12/29/2017 10 mg take 1 (one) Tablet by Oral route every 12 hours gabapentin 600 mg tablet Tablet 600 mg take 1 (one) Tablet by Oral route at bedtime Valium 2 mg tablet Tablet 201712/29/2017 2 mg take 1 (one) Tablet by Oral route four times per day as needed predniSONE 5 mg tablet Blister 5 mg take 1 (one) Tablet by Oral route daily potassium chloride ER 20 mEq tablet,extended release Tablet 12/29/2017 20 mEq 1 (one) by Oral route daily minocycline 100 mg capsule Capsule 12/29/2017 03/29/2018 100 mg 1 (one) Capsule by Oral route two times per day for 30 days HYDROCODONE/APAP 10/325 TAB 10 /325 (GORDON-TAB 10/325) TAB 01/15/2018 01/15/2018 ONCE&0931 FENTANYL INJ 100 MCG/2CC VIAL MCG 01/15/2018 01/15/2018 ONCE&1151 IRON SUCROSE INJECTION INJ 20 MG/CC (VENOFER) MG 02/16/2018 02/16/2018 ONCE&1024 IRON SUCROSE INJECTION INJ 20 MG/CC (VENOFER) MG 02/18/2018 02/18/2018 ONCE&1122 ACETAMINOPHEN ORAL TABLET 325mg(Tylenol) MG 03/14/2018 03/14/2018 PRN ONCE NORMAL SALINE 1000CC IV BAG INJ 0.9 % (NS 1000CC IV BAG) ml 03/14/2018 03/29/2018 CONTINUOUSEVERY 0 Hour Meropenem-0.9% sodium chloride IV piggyback 1 Gm GM 03/14/2018 03/14/2018 ONCE&1544 ACETAMINOPHEN ORAL TABLET 325mg(Tylenol) MG 03/14/2018 03/14/2018 PRN ONCE Normal SALINE 0.9 % (NS 100cc) (plain bag) ml 03/14/2018 03/29/2018 CONTINUOUSEVERY 0 Hour ALPRAZOLAM TAB 0.25 MG (XANAX) MG 03/14/2018 03/24/2018 PRN Q6H TRAMADOL TAB 50 MG (ULTRAM) MG 03/201803/24/2018 PRN Q6H HYDROCODONE/APAP 10/325 TAB 10 /325 (GORDON-TAB 10/325) TAB 03/14/2018 03/24/2018 PRN Q6H HYDROCODONE/APAP 5MG/325MG TAB 5 MG/325MG (GORDON-TAB 5/325) TAB 03/14/2018 03/24/2018 PRN Q6H WARFARIN TAB 5 MG (COUMADIN) Dose(s) 03/14/2018 03/14/2018 ONCE&1941 PRAMIPEXOLE TAB 0.25 MG (MIRAPEX) MG 03/14/2018 03/21/2018 BID&0800,2000 OXYBUTYNIN TAB 5 MG (DITROPAN) MG 03/14/2018 03/21/2018 TID&0800,1400,2000 MINOCYCLINE CAP 100 MG (MINOCIN) MG 03/14/2018 03/21/2018 BID&0800,2000 LEVOFLOXACIN PREMIX IV BAG INJ 750 MG (LEVAQUIN PREMIX IV BAG) MG 03/14/2018 03/21/2018 Daily&0800,1999 MELATONIN TAB 3 MG (MELATONIN) MG 03/14/2018 03/20/2018 PRN QHS GABAPENTIN CAP 300 MG (NEURONTIN) MG 03/14/2018 03/21/2018 QID&0800,1200,1700,2200 TIZANIDINE TAB 4 MG (ZANAFLEX) MG 03/14/2018 03/21/2018 PRN Q8H NORMAL SALINE 1000CC IV BAG INJ 0.9 % (NS 1000CC IV BAG) ml 03/15/2018 03/30/2018 CONTINUOUSEVERY 0 Hour Meropenem-0.9% sodium chloride IV piggyback 1 Gm GM 03/15/2018 03/24/2018 Q12H&0600,1800 MAGNESIUM OXIDE TAB 400 MG (MAG-OX) MG 03/15/2018 03/21/2018 Daily&0900 SILVER SULFADIAZINE CRM CRM 1 % (SSD CRM) jonathan 03/15/2018 03/21/2018 Daily&0900 POTASSIUM CHLORIDE TAB 20 MEQ (K-DUR) MEQ 03/15/2018 03/21/2018 Daily&0900 Leflunomide oral tablet 20mg (Arava) MG 03/15/2018 03/21/2018 Daily&0900 FUROSEMIDE TAB 40 MG (LASIX) MG 04/201803/21/2018 Daily&0900 POLYETHYLENE GLYCOL POWDER UD PWD (MIRALAX 17GM UNIT DOSE PAKS) gm 03/15/2018 03/21/2018 Daily&0900 SENNA CONC/DOCUSATE TAB (SENOKOT S) TAB 03/15/2018 03/22/2018 PRN Daily BUMETANIDE TAB 0.5 MG (BUMEX) MG 03/20/2018 Daily&0900 PREDNISONE TAB 5 MG (DELTASONE) MG 03/15/2018 03/21/2018 Daily&0900 MINOCYCLINE CAP 100 MG (MINOCIN) MG 03/15/2018 03/21/2018 BID&0800,2000 GABAPENTIN CAP 300 MG (NEURONTIN) MG 03/15/2018 03/22/2018 QID&0800,1200,1700,2200 BUMETANIDE TAB 0.5 MG (BUMEX) MG 03/21/2018 Daily&1300 HYDROCODONE/APAP 10/325 TAB 10 /325 (GORDON-TAB 10/325) TAB 03/15/2018 03/25/2018 PRN Q4H WARFARIN TAB 5 MG (COUMADIN) MG 04/201803/21/2018 QPM&1800 MINOCYCLINE CAP 100 MG (MINOCIN) MG 03/15/2018 03/22/2018 BID&0800,2000 NORMAL SALINE 1000CC IV BAG INJ 0.9 % (NS 1000CC IV BAG) ml 03/16/2018 03/31/2018 CONTINUOUSEVERY 0 Hour BUMETANIDE TAB 0.5 MG (BUMEX) MG 03/21/2018 Daily&0900 LEVOFLOXACIN PREMIX IV BAG INJ 750 MG (LEVAQUIN PREMIX IV BAG) MG 03/17/2018 03/17/2018 ONCE&0838 ACETAMINOPHEN ORAL TABLET 325mg(Tylenol) MG 03/18/2018 03/18/2018 PRN ONCE SALINE NASAL MIST LIQ (OCEAN SPRAY) SPRAYS 03/19/2018 03/29/2018 PRN Q6H BUMETANIDE TAB 0.5 MG (BUMEX) MG 03/27/2018 Daily&0900 NORMAL SALINE 1000CC IV BAG INJ 0.9 % (NS 1000CC IV BAG) ml 03/30/2018 03/30/2018 ONCE&1015 FENTANYL INJ 100 MCG/2CC VIAL MCG 03/30/2018 03/30/2018 ONCE&1045 FENTANYL INJ 100 MCG/2CC VIAL MCG 03/30/2018 03/30/2018 ONCE&1210 Problems Date Dx Coded Attending Type Code Diagnosis Diagnosed By JOSELITO HACKETT MD, Ot 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 JOSELITO HACKETT MD, Ot I70.242 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 C JOSELITO HACKETT MD Ot I87.333 CHRONIC VENOUS HTN W ULCER AND INFLAM OF JOSELITO HACKETT MD Ot I89.0 LYMPHEDEMA, NOT ELSEWHERE CLASSIFIED JOSELITO HACKETT MD Ot L89.133 PRESSURE ULCER OF RIGHT LOWER BACK, STAG JOSELITO HACKETT MD, Ot L90.8 OTHER ATROPHIC DISORDERS OF SKIN JOSELITO HACKETT MD, Ot L97.212 NON-PRESSURE CHRONIC ULCER OF RIGHT CALF JOSELITO HACKETT MD, Ot L97.222 NON-PRESSURE CHRONIC ULCER OF LEFT CALF 01/09/1599 JOSELITO HACKETT MD Ot 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 UL 01/09/1599 JOSELITO HACKETT MD Ot I70.242 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 ULC 01/09/1599 JOSELITO HACKETT MD Ot I87.333 CHRONIC VENOUS HTN W ULCER AND INFLAM OF 01/09/1599 JOSELITO HACKETT MD Ot I89.0 LYMPHEDEMA, NOT ELSEWHERE CLASSIFIED 01/09/1599 JOSELITO HACKETT MD Ot L89.133 PRESSURE ULCER OF RIGHT LOWER BACK, STAG 01/09/1599 JOSELITO HACKETT MD, Ot L90.8 OTHER ATROPHIC DISORDERS OF SKIN 01/09/1599 JOSELITO HACKETT MD, Ot L97.212 NON-PRESSURE CHRONIC ULCER OF RIGHT CALF 01/09/1599 JOSELITO HACKETT MD, Ot L97.222 NON-PRESSURE CHRONIC ULCER OF LEFT CALF 04/13/2012 Ot 728.87 MUSCLE WEAKNESS (GENERALIZED) 04/13/2012 Ot V45.89 POSTSURGICAL STATES NEC 04/13/2012 Ot V57.1 PHYSICAL THERAPY NEC 05/19/2012 Ot 728.87 MUSCLE WEAKNESS (GENERALIZED) 05/19/2012 Ot V45.89 POSTSURGICAL STATES NEC 05/19/2012 Ot V57.1 PHYSICAL THERAPY NEC 07/09/2012 FRANCISCO J MOYA DO Ot 715.31 LOC OSTEOARTH NOS-SHLDER 07/09/2012 FRANCISCO J MOYA DO Ot V57.1 PHYSICAL THERAPY [facility] 07/07/2015 PATRIZIA REYES MD B95.61 Methicillin susceptible Staphylococcus aureus infection as the cause of diseases classified elsewhere NAYAN MESA MD 07/07/2015 PATRIZIA REYES MD M06.9 Rheumatoid arthritis, unspecified NAYAN MESA MD 07/07/2015 PATRIZIA REYES MD T84.7XXD Infection and inflammatory reaction due to other internal orthopedic prosthetic devices, implants and grafts, subsequent encounter NAYAN MESA MD 07/07/2015 PATRIZIA REYES MD 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 NAYAN MESA MD 08/28/2015 Travis Jaimes M51.24 Other intervertebral disc displacement, thoracic region Travis Jaimes 08/28/2015 Moufarrij, Travis A M51.34 Other intervertebral disc degeneration, thoracic region MoufarrMadyson starkzih A 08/28/2015 Moufarrmi Travis A R22.1 Localized swelling, mass and lump, neck Moufarrmi Travis A 08/28/2015 MoufarrMadyson starkzih A R26.9 Unspecified abnormalities of gait and mobility CandelarioufMadyson stanleyzih A 08/29/2015 Moufarrmi Travis A M51.24 Other intervertebral disc displacement, thoracic region Moufarrmi, Travis A 08/29/2015 Moufarrij, Travis A M51.34 Other intervertebral disc degeneration, thoracic region Moufarrmi, Travis A 08/29/2015 MoufarrMadyson starkzih A R22.1 Localized swelling, mass and lump, neck CandelarioufarrMadyson starkzih A 08/29/2015 MoufarrMadyson starkzih A R26.9 Unspecified abnormalities of gait and mobility Travis Jaimes A 10/12/2015 Ot 682.2 CELLULITIS OF TRUNK 10/12/2015 JOSELITO HACKETT MD Ot M79.669 PAIN IN UNSPECIFIED LOWER LEG 10/13/2015 JOSELITO HACKETT MD, Ot M79.669 PAIN IN UNSPECIFIED LOWER LEG 10/13/2015 JOSELITO HACKETT MD Ot M79.9 SOFT TISSUE DISORDER, UNSPECIFIED 10/30/2015 JOSELITO HACKETT MD, Ot I73.9 PERIPHERAL VASCULAR DISEASE, UNSPECIFIED 10/31/2015 JOSELITO HACKETT MD, Ot M79.669 PAIN IN UNSPECIFIED LOWER LEG 10/31/2015 JOSELITO HACKETT MD, Ot M79.9 SOFT TISSUE DISORDER, UNSPECIFIED 11/02/2015 JOSELITO HACKETT MD Ot I73.9 PERIPHERAL VASCULAR DISEASE, UNSPECIFIED 11/13/2015 JOSELITO HACKETT MD, Ot 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 UL 11/13/2015 JOSELITO HACKETT MD Ot I70.242 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 ULC 11/13/2015 JOSELITO HACKETT MD Ot I87.333 CHRONIC VENOUS HTN W ULCER AND INFLAM OF 11/13/2015 JOSELITO HACKETT MD, Ot I89.0 LYMPHEDEMA, NOT ELSEWHERE CLASSIFIED 11/13/2015 JOSELITO HACKETT MD, Ot L89.133 PRESSURE ULCER OF RIGHT LOWER BACK, STAG 11/13/2015 JOSELITO HACKETT MD, Ot L90.8 OTHER ATROPHIC DISORDERS OF SKIN 11/13/2015 JOSELITO HACKETT MD, Ot L97.212 NON-PRESSURE CHRONIC ULCER OF RIGHT CALF 11/13/2015 JOSELITO HACKETT MD, Ot L97.222 NON-PRESSURE CHRONIC ULCER OF LEFT CALF 11/17/2015 JOSELITO HACKETT MD, Ot I73.9 PERIPHERAL VASCULAR DISEASE, UNSPECIFIED 11/22/2015 JOSELITO HACKETT MD, Ot I73.9 PERIPHERAL VASCULAR DISEASE, UNSPECIFIED 11/24/2015 JOSELITO HACKETT MD, Ot 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 UL 11/24/2015 JOSELITO HACKETT MD, Ot I70.242 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 ULC 11/24/2015 JOSELITO HACKETT MD Ot I87.333 CHRONIC VENOUS HTN W ULCER AND INFLAM OF 11/24/2015 JOSELITO HACKETT MD, Ot I89.0 LYMPHEDEMA, NOT ELSEWHERE CLASSIFIED 11/24/2015 JOSELITO HACKETT MD, Ot L89.133 PRESSURE ULCER OF RIGHT LOWER BACK, STAG 11/24/2015 JOSELITO HACKETT MD, Ot L90.8 OTHER ATROPHIC DISORDERS OF SKIN 11/24/2015 JOSELITO HACKETT MD, Ot L97.212 NON-PRESSURE CHRONIC ULCER OF RIGHT CALF 11/24/2015 JOSELITO HACKETT MD, Ot L97.222 NON-PRESSURE CHRONIC ULCER OF LEFT CALF 12/05/2015 W 041.89 OTHER SPECIFIED BACTERIAL INFECTION IN CONDITIONS CLASSIFIED ELSEWHERE AND OF UNSPECIFIED SITE 12/05/2015 W 459.81 VENOUS ( PERIPHERAL) INSUFFICIENCY, UNSPECIFIED 12/05/2015 W 682.6 CELLULITIS AND ABSCESS OF LEG, EXCEPT FOOT 12/05/2015 W 782.3 EDEMA 12/05/2015 W B96.89 OTHER SPECIFIED BACTERIAL AGENTS THE CAUSE OF DISEASES CLASSIFIED ELSEWHERE 12/05/2015 W I87.2 VENOUS INSUFFICIENCY (CHRONIC) (PERIPHERAL) 12/05/2015 A L03.115 CELLULITIS OF RIGHT LOWER LIMB 12/05/2015 W L03.116 CELLULITIS OF LEFT LOWER LIMB 12/05/2015 W R60.0 LOCALIZED EDEMA 12/09/2015 W 292.0 12/09/2015 W 296.90 12/09/2015 W 714.0 12/09/2015 W 780.97 12/09/2015 W F11.23 OPIOID DEPENDENCE WITH WITHDRAWAL 12/09/2015 W F39 UNSPECIFIED MOOD [AFFECTIVE] DISORDER 12/09/2015 W M06.00 RHEUMATOID ARTHRITIS WITHOUT RHEUMATOID FACTOR, UNSPECIFIED SITE 12/09/2015 W R41.82 ALTERED MENTAL STATUS, UNSPECIFIED 12/09/2015 W V12.51 12/09/2015 W V58.61 12/09/2015 W Z79.01 12/09/2015 W Z86.718 01/05/2016 Devi Vasquez 401.0 MALIGNANT ESSENTIAL HYPERTENSION 01/05/2016 Devi Vasquez 790.92 ABNORMAL COAGULATION PROFILE 01/05/2016 Devi Vasquez 873.0 OPEN WOUND OF SCALP, WITHOUT MENTION OF COMPLICATION 01/05/2016 Devi Vasquez I10 ESSENTIAL (PRIMARY) HYPERTENSION 01/05/2016 Devi Vasquez R79.1 ABNORMAL COAGULATION PROFILE 01/05/2016 Devi Vasquez S01.01XA LACERATION WITHOUT FOREIGN BODY OF SCALP, INITIAL ENCOUNTER 01/05/2016 Devi Vasquez V58.61 LONG-TERM (CURRENT) USE OF ANTICOAGULANTS 01/05/2016 Devi Vasquez Z79.01 LONG-TERM (CURRENT) USE OF ANTICOAGULANTS 01/10/2016 JOSELITO HACKETT MD, Ot 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 UL 01/10/2016 JOSELITO HACKETT MD, Ot I70.242 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 ULC 01/10/2016 JOSELITO HACKETT MD Ot I87.333 CHRONIC VENOUS HTN W ULCER AND INFLAM OF 01/10/2016 JOSELITO HACKETT MD Ot I89.0 LYMPHEDEMA, NOT ELSEWHERE CLASSIFIED 01/10/2016 JOSELITO HACKETT MD Ot L89.133 PRESSURE ULCER OF RIGHT LOWER BACK, STAG 01/10/2016 JOSELITO HACKETT MD, Ot L90.8 OTHER ATROPHIC DISORDERS OF SKIN 01/10/2016 JOSELITO HACKETT MD, Ot L97.212 NON-PRESSURE CHRONIC ULCER OF RIGHT CALF 01/10/2016 JOSELITO HACKETT MD, Ot L97.222 NON-PRESSURE CHRONIC ULCER OF LEFT CALF 01/11/2016 Slime Vasqueza W 285.9 01/11/2016 Faheem, Devi W 333.94 01/11/2016 Faheem, Devi W 459.81 01/11/2016 Faheem, Devi A 682.6 CELLULITIS AND ABSCESS OF LEG, EXCEPT FOOT 01/11/2016 Faheem, Devi W 714.0 01/11/2016 Faheem, Devi W 722.4 DEGENERATION OF CERVICAL INTERVERTEBRAL DISC 01/11/2016 Faheem, Devi W 722.52 DEGENERATION OF LUMBAR OR LUMBOSACRAL INTERVERTEBRAL DISC 01/11/2016 Faheem, Devi W 780.60 01/11/2016 Faheem, Devi W 791.9 01/11/2016 Faheem, Devi W 873.0 01/11/2016 Faheem, Devi W D64.9 ANEMIA, UNSPECIFIED 01/11/2016 Faheem, Devi W G25.81 RESTLESS LEGS SYNDROME 01/11/2016 Faheem Devi W I87.2 01/11/2016 Faheem Devi A L03.116 CELLULITIS OF LEFT LOWER LIMB 01/11/2016 Faheem, Devi W M06.00 RHEUMATOID ARTHRITIS WITHOUT RHEUMATOID FACTOR, UNSP SITE 01/11/2016 Faheem, Devi W M50.30 OTHER CERVICAL DISC DEGENERATION, UNSP CERVICAL REGION 01/11/2016 Faheem, Devi W M51.36 OTHER INTERVERTEBRAL DISC DEGENERATION, LUMBAR REGION 01/11/2016 Faheem, Devi W R50.9 01/11/2016 Faheem, Devi W R82.90 UNSPECIFIED ABNORMAL FINDINGS IN URINE 01/11/2016 Faheem Devi W S01.01XA LACERATION WITHOUT FOREIGN BODY OF SCALP, INITIAL ENCOUNTER 01/11/2016 Faheem Devi W V58.61 LONG-TERM (CURRENT) USE OF ANTICOAGULANTS 01/11/2016 Faheem Devi W Z79.01 LONG-TERM (CURRENT) USE OF ANTICOAGULANTS 01/15/2016 LEW COLE, JOSELITO Hernandez Ot 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 UL 01/15/2016 JOSELITO HACKETT MD, Ot I70.242 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 ULC 01/15/2016 JOSELITO HACKETT MD, Ot I87.333 CHRONIC VENOUS HTN W ULCER AND INFLAM OF 01/15/2016 JOSELITO HACKETT MD, Ot I89.0 LYMPHEDEMA, NOT ELSEWHERE CLASSIFIED 01/15/2016 JOSELITO HACKETT MD, Ot L89.133 PRESSURE ULCER OF RIGHT LOWER BACK, STAG 01/15/2016 JOSELITO HACKETT MD, Ot L90.8 OTHER ATROPHIC DISORDERS OF SKIN 01/15/2016 JOSELITO HACKETT MD, Ot L97.212 NON-PRESSURE CHRONIC ULCER OF RIGHT CALF 01/15/2016 JOSELITO HACKETT MD, Ot L97.222 NON-PRESSURE CHRONIC ULCER OF LEFT CALF 01/21/2016 Devi Vasquez W 333.94 01/21/2016 Devi Vasquez W 401.0 MALIGNANT ESSENTIAL HYPERTENSION 01/21/2016 Slime Vasqueza W 459.81 01/21/2016 Devi Vasquez A 682.6 CELLULITIS AND ABSCESS OF LEG, EXCEPT FOOT 01/21/2016 Slime Vasqueza W 707.12 01/21/2016 Slime Vasqueza W 714.0 01/21/2016 Slime Vasqueza W 719.45 PAIN IN JOINT INVOLVING PELVIC REGION AND THIGH 01/21/2016 Slime Vasqueza W 722.4 01/21/2016 Faheem Devi W 780.60 01/21/2016 Slime Vasqueza W G25.81 RESTLESS LEGS SYNDROME 01/21/2016 Devi Vasquez W I10 ESSENTIAL (PRIMARY) HYPERTENSION 01/21/2016 Slime Vasqueza W I87.2 VENOUS INSUFFICIENCY (CHRONIC) (PERIPHERAL) 01/21/2016 Devi Vasquez A L02.416 CUTANEOUS ABSCESS OF LEFT LOWER LIMB 01/21/2016 Devi Vasquez L97.229 NON-PRESSURE CHRONIC ULCER OF LEFT CALF WITH UNSP SEVERITY 01/21/2016 Devi Vasquez W M06.00 RHEUMATOID ARTHRITIS WITHOUT RHEUMATOID FACTOR, UNSP SITE 01/21/2016 Devi Vasquez M25.551 PAIN IN RIGHT HIP 01/21/2016 Devi Vasquez M50.30 OTHER CERVICAL DISC DEGENERATION, UNSP CERVICAL REGION 01/21/2016 Devi Vasquez W R50.9 01/21/2016 Devi Vasquez W V58.61 LONG-TERM (CURRENT) USE OF ANTICOAGULANTS 01/21/2016 Devi Vasquez 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 01/31/2016 Choco Moore 682.6 CELLULITIS AND ABSCESS OF LEG, EXCEPT FOOT 01/31/2016 Choco Moore 780.60 FEVER, UNSPECIFIED 01/31/2016 Choco Moore L03.115 CELLULITIS OF RIGHT LOWER LIMB 01/31/2016 Choco Moore R50.9 FEVER, UNSPECIFIED 02/06/2016 JOSELITO HACKETT MD, Ot 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 UL 02/06/2016 JOSELITO HACKETT MD, Ot I70.242 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 ULC 02/06/2016 JOSELITO HACKETT MD, Ot I87.333 CHRONIC VENOUS HTN W ULCER AND INFLAM OF 02/06/2016 JOSELITO HACKETT MD, Ot I89.0 LYMPHEDEMA, NOT ELSEWHERE CLASSIFIED 02/06/2016 JOSELITO HACKETT MD, Ot L89.133 PRESSURE ULCER OF RIGHT LOWER BACK, STAG 02/06/2016 JOSELITO HACKETT MD, Ot L90.8 OTHER ATROPHIC DISORDERS OF SKIN 02/06/2016 JOSELITO HACKETT MD, Ot L97.212 NON-PRESSURE CHRONIC ULCER OF RIGHT CALF 02/06/2016 JOSELITO HACKETT MD, Ot L97.222 NON-PRESSURE CHRONIC ULCER OF LEFT CALF 2016 F M17.12 Unilateral primary osteoarthritis, left knee 2016 F Z96.641 Presence of right artificial hip joint 04/25/2016 Ot 682.2 CELLULITIS OF TRUNK 04/25/2016 JOSELITO HACKETT MD Ot R60.0 LOCALIZED EDEMA 04/25/2016 JOSELITO HACKETT MD, Ot Z86.718 PERSONAL HISTORY OF OTHER VENOUS THROMBO 04/25/2016 JOSELITO HACKETT MD, Ot I73.9 PERIPHERAL VASCULAR DISEASE, UNSPECIFIED 04/25/2016 SHAQUILLE CHESTER MD, Ot G89.4 CHRONIC PAIN SYNDROME 04/25/2016 SHAQUILLE CHESTER MD Ot I34.0 NONRHEUMATIC MITRAL (VALVE) INSUFFICIENC 04/25/2016 SHAQUILLE CHESTER MD Ot I51.9 HEART DISEASE, UNSPECIFIED 04/25/2016 SHAQUILLE CHESTER MD Ot I73.9 PERIPHERAL VASCULAR DISEASE, UNSPECIFIED 04/25/2016 SHAQUILLE CHESTER MD Ot R07.9 CHEST PAIN, UNSPECIFIED 04/30/2016 Faheem, Devi W 780.61 FEVER PRESENTING WITH CONDITIONS CLASSIFIED ELSEWHERE 04/30/2016 Faheem, Devi W 780.79 OTHER MALAISE AND FATIGUE 04/30/2016 Faheem, Devi W P96.89 OTHER SPECIFIED CONDITIONS ORIGINATING IN THE PERIOD 04/30/2016 Faheem, Devi W R50.81 FEVER PRESENTING WITH CONDITIONS CLASSIFIED ELSEWHERE 05/01/2016 Faheem, Devi A 682.6 CELLULITIS AND ABSCESS OF LEG, EXCEPT FOOT 05/01/2016 Faheem, Devi A L03.115 CELLULITIS OF RIGHT LOWER LIMB 05/04/2016 Faheem, Devi W I89 OTHER NONINFECTIVE DISORDERS OF LYMPHATIC VESSELS AND LYMPH NODES 05/04/2016 Faheem, Devi W 584.9 ACUTE KIDNEY FAILURE, UNSPECIFIED 05/04/2016 Faheem, Devi W N17.9 ACUTE KIDNEY FAILURE, UNSPECIFIED 05/04/2016 Faheem, Devi W 276.8 05/04/2016 Faheem, Devi W 285.9 05/04/2016 Faheem, Devi W 333.94 05/04/2016 Faheem, Devi W 457.8 05/04/2016 Faheem, Devi W 459.81 05/04/2016 Faheem, Devi W 584.9 ACUTE KIDNEY FAILURE, UNSPECIFIED 05/04/2016 Faheem, Devi W 682.6 05/04/2016 Faheem, Devi 780.60 05/04/2016 Faheem, Devi W 780.79 05/04/2016 Faheem, Devi W D64.9 05/04/2016 Faheem, Devi W E87.6 05/04/2016 Faheem, Devi W G25.81 RESTLESS LEGS SYNDROME 05/04/2016 Faheem, Devi W I87.2 05/04/2016 Faheem, Devi W I89.8 05/04/2016 Faheem, Devi W L03.116 CELLULITIS OF LEFT LOWER LIMB 05/04/2016 Faheem, Devi W M06.9 05/04/2016 Faheem, Devi W N17.9 ACUTE KIDNEY FAILURE, UNSPECIFIED 05/04/2016 Faheem, Devi W R50.9 05/04/2016 Faheem, Devi W R53.1 WEAKNESS 05/04/2016 Devi Vasquez W V58.61 05/04/2016 Devi Vasquez W Z79.01 LONG-TERM (CURRENT) USE OF ANTICOAGULANTS 06/10/2016 F M17.12 Unilateral primary osteoarthritis, left knee 07/04/2016 SHAQUILLE CHESTER MD, Ot G89.4 CHRONIC PAIN SYNDROME 07/04/2016 SHAQUILLE CHESTER MD, Ot I34.0 NONRHEUMATIC MITRAL (VALVE) INSUFFICIENC 07/04/2016 SHAQUILLE CHESTER MD, Ot I51.9 HEART DISEASE, UNSPECIFIED 07/04/2016 SHAQUILLE CHESTER MD, Ot I73.9 PERIPHERAL VASCULAR DISEASE, UNSPECIFIED 07/04/2016 SHAQUILLE CHESTER MD, Ot R07.9 CHEST PAIN, UNSPECIFIED 07/04/2016 SHAQUILLE CHESTER MD, Ot 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 OF ANTICOAGULANT 07/04/2016 SHAQUILLE CHESTER MD, Ot Z86.718 PERSONAL HISTORY OF OTHER VENOUS THROMBO 07/06/2016 Choco Moore 459.81 VENOUS (PERIPHERAL) INSUFFICIENCY, UNSPECIFIED 07/06/2016 Choco Moore 782.3 EDEMA 07/06/2016 Choco Moore I87.2 VENOUS INSUFFICIENCY (CHRONIC) (PERIPHERAL) 07/06/2016 Choco Moore R60.0 LOCALIZED EDEMA 07/06/2016 Choco Moore V58.61 LONG-TERM (CURRENT) USE OF ANTICOAGULANTS 07/06/2016 Choco Moore 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 07/17/2016 Enma Mcginnis MD D62 ACUTE POSTHEMORRHAGIC ANEMIA 07/17/2016 Enma Mcginnis MD D68.51 ACTIVATED PROTEIN C RESISTANCE 07/17/2016 Enma Mcginnis MD G25.81 RESTLESS LEGS SYNDROME 07/17/2016 Enma Mcginnis MD I10 ESSENTIAL (PRIMARY) HYPERTENSION 07/17/2016 Enma Mcginnis MD I73.9 PERIPHERAL VASCULAR DISEASE, UNSPECIFIED 07/17/2016 Enma Mcginnis MD M17.12 UNILATERAL PRIMARY OSTEOARTHRITIS, LEFT KNEE 07/17/2016 Enma Mcginnis MD M25.562 PAIN IN LEFT KNEE 07/17/2016 Enma Mcginnis MD Z88.0 ALLERGY STATUS TO PENICILLIN 07/17/2016 Ras COLE, Enma Jose Butts Z88.1 ALLERGY STATUS TO OTHER ANTIBIOTIC AGENTS STATUS 07/17/2016 Ras COLE, Enma Garcia Benjamín Z90.710 ACQUIRED ABSENCE OF BOTH CERVIX AND UTERUS 07/17/2016 Ras COLE, Enma Jose Butts Z96.641 PRESENCE OF RIGHT ARTIFICIAL HIP JOINT 07/26/2016 F Z96.652 Presence of left artificial knee joint 08/20/2016 Martir Castillo 338.2 CHRONIC PAIN 08/20/2016 Martir Castillo 714.0 RHEUMATOID ARTHRITIS 08/20/2016 Martir Castillo 729.89 OTHER MUSCULOSKELETAL SYMPTOMS REFERABLE TO LIMBS 08/20/2016 Martir Castillo 780.60 FEVER, UNSPECIFIED 08/20/2016 Martir Castillo G89.29 OTHER CHRONIC PAIN 08/20/2016 Martir Castillo M06.9 RHEUMATOID ARTHRITIS, UNSPECIFIED 08/20/2016 Martir Castillo R29.898 OTH SYMPTOMS AND SIGNS INVOLVING THE MUSCULOSKELETAL SYSTEM 08/20/2016 Martir Castillo R50.9 FEVER, UNSPECIFIED 09/02/2016 F Z96.652 Presence of left artificial knee joint 09/11/2016 Mercy Alvarez 041.7 PSEUDOMONAS INFECTION IN CONDITIONS CLASSIFIED ELSEWHERE AND OF UNSPECIFIED SITE 09/11/2016 Mercy Alvarez 682.6 09/11/2016 Mercy Alvarez 719.45 PAIN IN JOINT INVOLVING PELVIC REGION AND THIGH 09/11/2016 Mercy Alvarez 998.32 09/11/2016 Mercy Alvarez B96.5 PSEUDOMONAS (MALLEI) CAUSING DISEASES CLASSD ELSWHR 09/11/2016 Mercy Alvarez L03.116 CELLULITIS OF LEFT LOWER LIMB 09/11/2016 Mercy Alvarez M25.552 PAIN IN LEFT HIP 09/11/2016 Mercy Alvarez T81.31XA DISRUPTION OF EXTERNAL OPERATION (SURGICAL) WOUND, NEC, INIT 09/11/2016 Mercy Alvarez V43.65 KNEE JOINT REPLACED BY OTHER MEANS 09/11/2016 Mercy Alvarez V58.61 LONG-TERM (CURRENT) USE OF ANTICOAGULANTS 09/11/2016 Mercy Alvarez W 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 09/11/2016 LissettesubhaMercy Z96.652 PRESENCE OF LEFT ARTIFICIAL KNEE JOINT 09/13/2016 Cristo, Trevor A 922.31 09/13/2016 Cristo, Trevor A S30.0XXA CONTUSION OF LOWER BACK AND PELVIS, INITIAL ENCOUNTER 09/14/2016 Lemons, Trevor W 461.0 ACUTE MAXILLARY SINUSITIS 09/14/2016 Lemons, Trevor W J01.00 ACUTE MAXILLARY SINUSITIS, UNSPECIFIED 09/14/2016 Lemons, Trevor W 461.0 ACUTE MAXILLARY SINUSITIS 09/14/2016 Lemons, Isidrou W J01.00 ACUTE MAXILLARY SINUSITIS, UNSPECIFIED 09/14/2016 Lemons, Isidrou W S30.0XXD CONTUSION OF LOWER BACK AND PELVIS, SUBSEQUENT ENCOUNTER 09/14/2016 Trevor Lemons V58.89 ENCOUNTER FOR OTHER SPECIFIED AFTERCARE 09/14/2016 Cristo, Trevor W 461.0 ACUTE MAXILLARY SINUSITIS 09/14/2016 Lemons, Isidrou W J01.00 ACUTE MAXILLARY SINUSITIS, UNSPECIFIED 09/14/2016 Lemons, Isidrou W S30.0XXD CONTUSION OF LOWER BACK AND PELVIS, SUBSEQUENT ENCOUNTER 09/14/2016 Lemons, Yun-Jada W T81.31XD DISRUPTION OF EXTERNAL OPERATION (SURGICAL) WOUND, NOT ELSEWHERE CLASSIFIED, SUBSEQUENT ENCOUNTER 09/14/2016 Trevor Lemons V58.89 ENCOUNTER FOR OTHER SPECIFIED AFTERCARE 09/15/2016 Lemons, Isidrou W 461.0 ACUTE MAXILLARY SINUSITIS 09/15/2016 Lemons, YunDahliau W J01.00 ACUTE MAXILLARY SINUSITIS, UNSPECIFIED 09/15/2016 Lemons, Isidrou W S30.0XXD CONTUSION OF LOWER BACK AND PELVIS, SUBSEQUENT ENCOUNTER 09/15/2016 Lemons, YunDahliamarvin Cotto T81.31XD DISRUPTION OF EXTERNAL OPERATION (SURGICAL) WOUND, NOT ELSEWHERE CLASSIFIED, SUBSEQUENT ENCOUNTER 09/15/2016 Rupal LemonsJada W V58.89 ENCOUNTER FOR OTHER SPECIFIED AFTERCARE 09/15/2016 Lemons, Yun-Jada W 461.0 ACUTE MAXILLARY SINUSITIS 09/15/2016 Lemons, Yun-Jada W 728.87 MUSCLE WEAKNESS (GENERALIZED) 09/15/2016 Lemons, Yun-Jada W J01.00 ACUTE MAXILLARY SINUSITIS, UNSPECIFIED 09/15/2016 Lemons, Yun-Jada W M62.81 MUSCLE WEAKNESS (GENERALIZED) 09/15/2016 Lemons, Yun-Jada W S30.0XXD CONTUSION OF LOWER BACK AND PELVIS, SUBSEQUENT ENCOUNTER 09/15/2016 Lemons, Yun-Jada W T81.31XD DISRUPTION OF EXTERNAL OPERATION (SURGICAL) WOUND, NOT ELSEWHERE CLASSIFIED, SUBSEQUENT ENCOUNTER 09/15/2016 Lemons, Yun-Jada W V58.89 ENCOUNTER FOR OTHER SPECIFIED AFTERCARE 09/15/2016 Lemons, Yun-Jada W 461.0 ACUTE MAXILLARY SINUSITIS 09/15/2016 Lemons, Yun-Jada W 728.87 MUSCLE WEAKNESS (GENERALIZED) 09/15/2016 Lemons, Yun-Jada W J01.00 ACUTE MAXILLARY SINUSITIS, UNSPECIFIED 09/15/2016 Lemons, Yun-Jada W M62.81 MUSCLE WEAKNESS (GENERALIZED) 09/15/2016 Lemons, Yun-Jada W S30.0XXD CONTUSION OF LOWER BACK AND PELVIS, SUBSEQUENT ENCOUNTER 09/15/2016 Lemons, Yun-Jada W T81.31XD DISRUPTION OF EXTERNAL OPERATION (SURGICAL) WOUND, NOT ELSEWHERE CLASSIFIED, SUBSEQUENT ENCOUNTER 09/15/2016 Lemons, Yun-Jada W V58.89 ENCOUNTER FOR OTHER SPECIFIED AFTERCARE 09/16/2016 F T81.31XA Disruption of external operation (surgical) wound, not elsewhere classified, initial encounter 09/16/2016 F Z96.652 Presence of left artificial knee joint 09/16/2016 Lemons, Yun-Jada W 041.7 09/16/2016 Lemons, Yun-Jada W 401.0 09/16/2016 Lemons, Yun-Jada W 461.0 ACUTE MAXILLARY SINUSITIS 09/16/2016 Lemons, Yun-Jada W 728.87 MUSCLE WEAKNESS (GENERALIZED) 09/16/2016 Lemons, Yun-Jada W 788.30 09/16/2016 Lemons, Yun-Jdaa W 998.32 DISRUPTION OF EXTERNAL OPERATION (SURGICAL) WOUND 09/16/2016 Cristo, Trevor W B96.5 09/16/2016 Lemons, Isidrou W I10 09/16/2016 Lemons, Isidromarvin Cotto J01.00 ACUTE MAXILLARY SINUSITIS, UNSPECIFIED 09/16/2016 Lemons, Isidromarvin Cotto M62.81 MUSCLE WEAKNESS (GENERALIZED) 09/16/2016 Cristo, Isidrou W R32 09/16/2016 Lemons, Isidrou W S30.0XXD CONTUSION OF LOWER BACK AND PELVIS, SUBSEQUENT ENCOUNTER 09/16/2016 Cristo, Trevor W T81.31XA DISRUPTION OF EXTERNAL OPERATION (SURGICAL) WOUND, NEC, INIT 09/16/2016 Cristo, Isidromarvin Cotto T81.31XD DISRUPTION OF EXTERNAL OPERATION (SURGICAL) WOUND, NOT ELSEWHERE CLASSIFIED, SUBSEQUENT ENCOUNTER 09/16/2016 Cristo, Isidrou W V12.51 09/16/2016 Lemons, Isidrou W V15.88 09/16/2016 Lemons, Isidrou W V43.65 09/16/2016 Lemons, Isidrou W V58.61 09/16/2016 Lemons, Isidrou W V58.89 ENCOUNTER FOR OTHER SPECIFIED AFTERCARE 09/16/2016 Lemons, Isidromarvin Cotto Z79.01 LONG-TERM (CURRENT) USE OF ANTICOAGULANTS 09/16/2016 Lemons, Isidromarvin Cotto Z86.718 PERSONAL HISTORY OF OTHER VENOUS THROMBOSIS AND EMBOLISM 09/16/2016 Lemons, Trevor Cotto Z91.81 HISTORY OF FALLING 09/16/2016 Lemons, YunCorwinJada W Z96.652 PRESENCE OF LEFT ARTIFICIAL KNEE JOINT 09/19/2016 Enma Mcginnis MD D68.51 ACTIVATED PROTEIN C RESISTANCE 09/19/2016 Enma Mcginnis MD E66.9 OBESITY, UNSPECIFIED 09/19/2016 Enma Mcginnis MD G25.81 RESTLESS LEGS SYNDROME 09/19/2016 Enma Mcginnis MD J96.21 ACUTE AND CHRONIC RESPIRATORY FAILURE WITH HYPOXIA 09/19/2016 Enma Mcginnis MD L03.116 CELLULITIS OF LEFT LOWER LIMB 09/19/2016 Enma Mcginnis MD M96.89 OTH INTRAOP AND POSTPROC COMP AND DISORDERS OF THE MS SYS 09/19/2016 Enma Mcginnis MD R32 UNSPECIFIED URINARY INCONTINENCE 09/19/2016 Enma Mcginnis MD R60.0 LOCALIZED EDEMA 09/19/2016 Enma Mcginnis MD T81.31XA DISRUPTION OF EXTERNAL OPERATION (SURGICAL) WOUND, 09/19/2016 Enma Mcginnis MD T81.4XXA INFECTION FOLLOWING A PROCEDURE, INITIAL ENCOUNTER 09/19/2016 Enma Mcginnis MD Z68.29 BODY MASS INDEX (BMI) 29.0-29.9, ADULT 09/19/2016 Enma Mcginnis MD Z96.652 PRESENCE OF LEFT ARTIFICIAL KNEE JOINT 09/30/2016 F T81.31XD Disruption of external operation (surgical) wound, not elsewhere classified, subsequent encounter 09/30/2016 F Z96.652 Presence of left artificial knee joint 10/01/2016 Devi Vasquez 289.81 PRIMARY HYPERCOAGULABLE STATE 10/01/2016 Slime Vasqueza W 357.9 UNSPECIFIED INFLAMMATORY AND TOXIC NEUROPATHIES 10/01/2016 Faheem, Devi W 714.0 RHEUMATOID ARTHRITIS 10/01/2016 Faheem, Devi W 719.7 10/01/2016 Faheem, Devi W D68.51 ACTIVATED PROTEIN C RESISTANCE 10/01/2016 Faheem, Devi W G62.9 POLYNEUROPATHY, UNSPECIFIED 10/01/2016 Faheem, Devi W M06.9 RHEUMATOID ARTHRITIS, UNSPECIFIED 10/01/2016 Faheem, Devi W R26.2 DIFFICULTY IN WALKING, NOT ELSEWHERE CLASSIFIED 10/01/2016 Devi Vasquez W V43.65 KNEE JOINT REPLACED BY OTHER MEANS 10/01/2016 Slime Vasqueza A V54.81 10/01/2016 Devi Vasquez A Z47.1 AFTERCARE FOLLOWING JOINT REPLACEMENT SURGERY 10/01/2016 Devi Vasquez Z96.652 PRESENCE OF LEFT ARTIFICIAL KNEE JOINT 10/07/2016 F T81.31XD Disruption of external operation (surgical) wound, not elsewhere classified, subsequent encounter 10/07/2016 F Z96.652 Presence of left artificial knee joint 10/08/2016 Warner Weathers MD A41.9 SEPSIS, UNSPECIFIED ORGANISM 10/08/2016 Warner Weathers MD B96.20 UNSP ESCHERICHIA COLI THE CAUSE OF DISEASES CLA 10/08/2016 Warner Weathers MD D50.9 IRON DEFICIENCY ANEMIA, UNSPECIFIED 10/08/2016 Warner Weathers MD D68.2 HEREDITARY DEFICIENCY OF OTHER CLOTTING FACTORS 10/08/2016 Warner Weathers MD D68.51 ACTIVATED PROTEIN C RESISTANCE 10/08/2016 Warner Weathers MD E66.9 OBESITY, UNSPECIFIED 10/08/2016 Warner Weathers MD G25.81 RESTLESS LEGS SYNDROME 10/08/2016 Warner Weathers MD G62.9 POLYNEUROPATHY, UNSPECIFIED 10/08/2016 Warner Weathers MD G92 TOXIC ENCEPHALOPATHY 10/08/2016 Warner Weathers MD K21.9 GASTRO-ESOPHAGEAL REFLUX DISEASE WITHOUT ESOPHAGIT 10/08/2016 Warner Weathers MD M06.9 RHEUMATOID ARTHRITIS, UNSPECIFIED 10/08/2016 Warner Weathers MD M19.90 UNSPECIFIED OSTEOARTHRITIS, UNSPECIFIED SITE 10/08/2016 Warner Weathers MD N39.0 URINARY TRACT INFECTION, SITE NOT SPECIFIED 10/08/2016 Warner Weathers MD R41.0 DISORIENTATION, UNSPECIFIED 10/08/2016 Warner Weathers MD R65.20 SEVERE SEPSIS WITHOUT SEPTIC SHOCK 10/08/2016 Warner Weathers MD R65.21 SEVERE SEPSIS WITH SEPTIC SHOCK 10/08/2016 Warner Weathers MD Z68.28 BODY MASS INDEX (BMI) 28.0-28.9, ADULT 10/08/2016 Warner Weathers MD 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 coli] as the cause of diseases classified elsewhere PATRIZIA REYES MD 10/25/2016 PATRIZIA REYES MD G92 Toxic encephalopathy PATRIZIA REYES MD 10/25/2016 PATRIZIA REYES MD N39.0 Urinary tract infection, site not specified PATRIZIA REYES MD 10/25/2016 PATRIZIA REYES MD Z22.39 Carrier of other specified bacterial diseases PATRIZIA REYES MD 10/25/2016 PATRIZIA REYES MD 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 PATRIZIA REYES MD 10/25/2016 PATRIZIA REYES MD Z86.19 Personal history of other infectious and parasitic diseases PATRIZIA REYES MD 10/25/2016 PATRIZIA REYES MD Z88.0 Allergy status to penicillin PATRIZIA REYES MD 10/25/2016 PATRIZIA REYES MD Z88.2 Allergy status to sulfonamides status PATRIZIA REYES MD 11/11/2016 F Z96.652 Presence of left artificial knee joint 12/04/2016 JOSELITO HACKETT MD Ot R60.0 LOCALIZED EDEMA 12/04/2016 JOSELITO HACKETT MD, Ot Z86.718 PERSONAL HISTORY OF OTHER VENOUS THROMBO 12/04/2016 JOSELITO HACKETT MD, Ot R60.0 LOCALIZED EDEMA 12/04/2016 JOSELITO HACKETT MD, Ot Z86.718 PERSONAL HISTORY OF OTHER VENOUS THROMBO 12/27/2016 Devi Vasquez 021.2 PULMONARY TULAREMIA 12/27/2016 Devi Vasquez 289.81 PRIMARY HYPERCOAGULABLE STATE 12/27/2016 Devi Vasquez 714.0 RHEUMATOID ARTHRITIS 12/27/2016 Devi Vasquez 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 12/27/2016 Devi Vasquez W 728.87 12/27/2016 Devi Vasquez D68.51 ACTIVATED PROTEIN C RESISTANCE 12/27/2016 Devi Vasquez I27.20 PULMONARY HYPERTENSION, UNSPECIFIED 12/27/2016 Devi Vasquez M06.9 RHEUMATOID ARTHRITIS, UNSPECIFIED 12/27/2016 Devi Vasquez 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, LEFT KNEE 12/27/2016 Devi Vasquez M62.81 MUSCLE WEAKNESS (GENERALIZED) 12/27/2016 Devi Vasquez V54.81 12/27/2016 Devi Vasquez Z47.1 AFTERCARE FOLLOWING JOINT REPLACEMENT SURGERY 01/13/2017 F Z96.652 Presence of left artificial knee joint 03/04/2017 Martir Castillo 873.0 OPEN WOUND OF SCALP, WITHOUT MENTION OF COMPLICATION 03/04/2017 Martir Castillo S01.01XA LACERATION WITHOUT FOREIGN BODY OF SCALP, INITIAL ENCOUNTER 03/04/2017 Martir Castillo V58.61 LONG-TERM (CURRENT) USE OF ANTICOAGULANTS 03/04/2017 Martir Castillo 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 03/10/2017 Martir Castillo V58.32 ENCOUNTER FOR REMOVAL OF SUTURES 03/10/2017 Martir Castillo Z48.02 ENCOUNTER FOR REMOVAL OF SUTURES 03/15/2017 Faheem, Devi W 466.0 ACUTE BRONCHITIS 03/15/2017 [facility], Devi W 799.02 HYPOXEMIA 03/15/2017 [facility], Devi W J09.X INFLUENZA DUE TO IDENTIFIED NOVEL INFLUENZA A VIRUS 03/15/2017 [facility], Devi W J20.0 ACUTE BRONCHITIS DUE TO MYCOPLASMA PNEUMONIAE 03/15/2017 [facility], Devi W R09.02 HYPOXEMIA 03/15/2017 [facility], Devi W 466.0 ACUTE BRONCHITIS 03/15/2017 [facility], Devi W 799.02 HYPOXEMIA 03/15/2017 Faheem, Devi W J09.X INFLUENZA DUE TO IDENTIFIED NOVEL INFLUENZA A VIRUS 03/15/2017 [facility], Devi W J20.0 ACUTE BRONCHITIS DUE TO MYCOPLASMA PNEUMONIAE 03/15/2017 [facility], Devi W R09.02 HYPOXEMIA 03/15/2017 Faheem, Devi W 466.0 ACUTE BRONCHITIS 03/15/2017 [facility], Devi W 799.02 HYPOXEMIA 03/15/2017 Faheem, Devi W J09.X INFLUENZA DUE TO IDENTIFIED NOVEL INFLUENZA A VIRUS 03/15/2017 Faheem, Devi W J20.0 ACUTE BRONCHITIS DUE TO MYCOPLASMA PNEUMONIAE 03/15/2017 Fhaeem, Devi W R09.02 HYPOXEMIA 03/21/2017 [facility], Devi W 285.9 03/21/2017 Faheem, Devi W 333.94 RESTLESS LEGS SYNDROME (RLS) 03/21/2017 Faheem, Devi W 357.9 03/21/2017 [facility], Devi W 466.0 ACUTE BRONCHITIS 03/21/2017 [facility], Devi A 487.1 03/21/2017 [facility], Devi W 714.0 03/21/2017 [facility], Devi W 788.31 03/21/2017 [facility], Devi W 790.92 03/21/2017 [facility], Devi W 799.02 HYPOXEMIA 03/21/2017 [facility], Devi W D64.9 ANEMIA, UNSPECIFIED 03/21/2017 [facility], Devi W G25.81 RESTLESS LEGS SYNDROME 03/21/2017 [facility], Devi W G62.9 POLYNEUROPATHY, UNSPECIFIED 03/21/2017 [facility], Devi W J09.X INFLUENZA DUE TO IDENTIFIED NOVEL INFLUENZA A VIRUS 03/21/2017 [facility], Devi A J10.1 03/21/2017 [facility], Devi W J20.0 ACUTE BRONCHITIS DUE TO MYCOPLASMA PNEUMONIAE 03/21/2017 [facility], Devi W M06.9 RHEUMATOID ARTHRITIS, UNSPECIFIED 03/21/2017 [facility], Devi W N39.41 URGE INCONTINENCE 03/21/2017 [facility], Devi W R09.02 HYPOXEMIA 03/21/2017 [facility], Devi W R79.1 03/21/2017 [facility], Devi W V58.61 LONG-TERM (CURRENT) USE OF ANTICOAGULANTS 03/21/2017 [facility], Devi W 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 04/04/2017 [facility], Devi W 488.02 INFLUENZA DUE TO IDENTIFIED JAIRON INFLUENZA VIRUS WITH OTHER RESPIRATORY MANIFESTATIONS 04/04/2017 [facility], Devi W J09.X2 FLU DUE TO IDENT NOVEL INFLUENZA A VIRUS W OTH RESP MANIFEST 04/04/2017 [facility], Devi W 488.02 INFLUENZA DUE TO IDENTIFIED JAIRON INFLUENZA VIRUS WITH OTHER RESPIRATORY MANIFESTATIONS 04/04/2017 [facility], Devi W 682.6 CELLULITIS AND ABSCESS OF LEG, EXCEPT FOOT 04/04/2017 Faheem, Devi W J09.X2 FLU DUE TO IDENT NOVEL INFLUENZA A VIRUS W OTH RESP MANIFEST 04/04/2017 [facility], Devi W L03.116 CELLULITIS OF LEFT LOWER LIMB 04/04/2017 [facility], Devi W 488.02 INFLUENZA DUE TO IDENTIFIED JAIRON INFLUENZA VIRUS WITH OTHER RESPIRATORY MANIFESTATIONS 04/04/2017 Faheem, Devi W 682.6 CELLULITIS AND ABSCESS OF LEG, EXCEPT FOOT 04/04/2017 Faheem, Devi W J09.X2 FLU DUE TO IDENT NOVEL INFLUENZA A VIRUS W OTH RESP MANIFEST 04/04/2017 Faheem, Devi W L03.116 CELLULITIS OF LEFT LOWER LIMB 04/05/2017 Faheem, Devi W 333.94 04/05/2017 [facility], Devi W 357.9 04/05/2017 Faheem, Devi W 401.0 04/05/2017 Faheem, Devi W 487.1 04/05/2017 Faheem, Devi W 488.02 INFLUENZA DUE TO IDENTIFIED JAIRON INFLUENZA VIRUS WITH OTHER RESPIRATORY MANIFESTATIONS 04/05/2017 Faheem, Devi A 682.6 CELLULITIS AND ABSCESS OF LEG, EXCEPT FOOT 04/05/2017 Faheem, Devi W 714.0 04/05/2017 Faheem, Devi W 729.5 PAIN IN LIMB 04/05/2017 Faheem, Devi W 788.33 04/05/2017 [facility], Devi W G25.81 RESTLESS LEGS SYNDROME 04/05/2017 [facility], Devi W G62.9 POLYNEUROPATHY, UNSPECIFIED 04/05/2017 Faheem, Devi W I10 ESSENTIAL (PRIMARY) HYPERTENSION 04/05/2017 Faheem, Devi W J09.X2 FLU DUE TO IDENT NOVEL INFLUENZA A VIRUS W OTH RESP MANIFEST 04/05/2017 Faheem, Devi W J10.1 04/05/2017 Faheem, Devi A L03.116 CELLULITIS OF LEFT LOWER LIMB 04/05/2017 Faheem, Devi W M06.9 RHEUMATOID ARTHRITIS, UNSPECIFIED 04/05/2017 [facility], Devi W M79.662 PAIN IN LEFT LOWER LEG 04/05/2017 Faheem, Devi W N39.46 MIXED INCONTINENCE 04/05/2017 Faheem, Devi W V58.61 LONG-TERM (CURRENT) USE OF ANTICOAGULANTS 04/05/2017 Faheem, Devi W Z79.01 LONG-TERM (CURRENT) USE OF ANTICOAGULANTS 05/05/2017 Faheem, Devi W 719.46 PAIN IN JOINT INVOLVING LOWER LEG 05/05/2017 Faheem, Devi W M25.569 PAIN IN UNSPECIFIED KNEE 05/05/2017 Devi Vasquez 719.46 PAIN IN JOINT INVOLVING LOWER LEG 05/05/2017 Devi Vasquez M25.569 PAIN IN UNSPECIFIED KNEE 05/06/2017 Martir Castillo 401.0 MALIGNANT ESSENTIAL HYPERTENSION 05/06/2017 Martir Castillo 459.89 OTHER SPECIFIED CIRCULATORY SYSTEM DISORDERS 05/06/2017 Martir Castillo 782.3 EDEMA 05/06/2017 Martir Castillo 799.02 HYPOXEMIA 05/06/2017 Martir Castillo I10 ESSENTIAL (PRIMARY) HYPERTENSION 05/06/2017 Martir Castillo I87.8 OTHER SPECIFIED DISORDERS OF VEINS 05/06/2017 Martir Castillo R09.02 HYPOXEMIA 05/06/2017 Martir Castillo R60.0 LOCALIZED EDEMA 05/06/2017 Martir Castillo V58.61 LONG-TERM (CURRENT) USE OF ANTICOAGULANTS 05/06/2017 Martir Castillo Z79.01 LONG-TERM (CURRENT) USE OF ANTICOAGULANTS 06/02/2017 Devi Vasquez V43.65 KNEE JOINT REPLACED BY OTHER MEANS 06/02/2017 Devi Vasquez V54.81 AFTERCARE FOLLOWING JOINT REPLACEMENT 06/02/2017 Devi Vasquez Z47.1 AFTERCARE FOLLOWING JOINT REPLACEMENT SURGERY 06/02/2017 Devi Vasquez Z96.652 PRESENCE OF LEFT ARTIFICIAL KNEE JOINT 06/12/2017 F M25.562 Pain in left knee 06/12/2017 F Z96.652 Presence of left artificial knee joint 07/18/2017 F T84.54XA Infection and inflammatory reaction due to internal left knee prosthesis, initial encounter 07/18/2017 F Z96.652 Presence of left artificial knee joint 07/25/2017 Devi Vasquez 344.9 PARALYSIS, UNSPECIFIED 07/25/2017 Devi Vasquez G82.20 PARAPLEGIA, UNSPECIFIED 07/25/2017 Devi Vasquez 344.9 PARALYSIS, UNSPECIFIED 07/25/2017 Devi Vasquez 996.66 INFECTION AND INFLAMMATORY REACTION DUE TO INTERNAL JOINT PROSTHESIS 07/25/2017 Devi Vasquez G82.20 PARAPLEGIA, UNSPECIFIED 07/25/2017 Faheem, Devi W T84.54 INFECTION AND INFLAMMATORY REACTION DUE TO INTERNAL LEFT KNEE PROSTHESIS 07/25/2017 Faheem, Devi W 344.9 PARALYSIS, UNSPECIFIED 07/25/2017 Faheem, Devi W 996.66 INFECTION AND INFLAMMATORY REACTION DUE TO INTERNAL JOINT PROSTHESIS 07/25/2017 Faheem, Devi W G82.20 PARAPLEGIA, UNSPECIFIED 07/25/2017 Faheem, Devi W T84.54 INFECTION AND INFLAMMATORY REACTION DUE TO INTERNAL LEFT KNEE PROSTHESIS 07/25/2017 Faheem, Devi W 344.9 PARALYSIS, UNSPECIFIED 07/25/2017 Faheem, Dvei W 996.66 INFECTION AND INFLAMMATORY REACTION DUE TO INTERNAL JOINT PROSTHESIS 07/25/2017 Faheem, Devi W G82.20 PARAPLEGIA, UNSPECIFIED 07/25/2017 Faheem, Devi W T84.54 INFECTION AND INFLAMMATORY REACTION DUE TO INTERNAL LEFT KNEE PROSTHESIS 07/28/2017 Faheem, Devi W 285.9 ANEMIA, UNSPECIFIED 07/28/2017 Faheem, Devi W 333.94 07/28/2017 Faheem, Devi W 344.9 PARALYSIS, UNSPECIFIED 07/28/2017 Faheem, Devi A 682.6 07/28/2017 [facility], Devi W 714.0 07/28/2017 Faheem, Devi W 729.89 07/28/2017 Faheem, Devi W 996.66 INFECTION AND INFLAMMATORY REACTION DUE TO INTERNAL JOINT PROSTHESIS 07/28/2017 Faheem, Devi W 996.67 07/28/2017 Faheem, Devi W D64.9 ANEMIA, UNSPECIFIED 07/28/2017 Faheem, Devi W G25.81 RESTLESS LEGS SYNDROME 07/28/2017 Faheem, Devi W G82.20 PARAPLEGIA, UNSPECIFIED 07/28/2017 Faheem, Devi A L03.115 07/28/2017 Faheem, Devi W L03.116 CELLULITIS OF LEFT LOWER LIMB 07/28/2017 Faheem, Devi W M06.9 RHEUMATOID ARTHRITIS, UNSPECIFIED 07/28/2017 Faheem, Devi W R29.898 OTH SYMPTOMS AND SIGNS INVOLVING THE MUSCULOSKELETAL SYSTEM 07/28/2017 Faheem, Devi W T84.54 INFECTION AND INFLAMMATORY REACTION DUE TO INTERNAL LEFT KNEE PROSTHESIS 07/28/2017 Faheem, Devi W T84.69XA INFECT/INFLM REACTION DUE TO INT FIX OF SITE, INIT 07/28/2017 Devi Vasquez V12.51 PERSONAL HISTORY OF VENOUS THROMBOSIS AND EMBOLISM 07/28/2017 Devi Vasquez V58.61 LONG-TERM (CURRENT) USE OF ANTICOAGULANTS 07/28/2017 Dvei Vasquez Z79.01 LONG-TERM (CURRENT) USE OF ANTICOAGULANTS 07/28/2017 Devi Vasquez Z86.718 PERSONAL HISTORY OF OTHER VENOUS THROMBOSIS AND EMBOLISM 08/25/2017 Enma Mcginnis MD B96.5 PSEUDOMONAS (MALLEI) CAUSING DISEASES CLASSD ELSWH 08/25/2017 Enma Mcginnis MD D64.9 ANEMIA, UNSPECIFIED 08/25/2017 Enma Mcginnis MD D68.2 HEREDITARY DEFICIENCY OF OTHER CLOTTING FACTORS 08/25/2017 Enma Mcginnis MD E56.8 DEFICIENCY OF OTHER VITAMINS 08/25/2017 Enma Mcginnis MD G25.81 RESTLESS LEGS SYNDROME 08/25/2017 Enma Mcginnis MD M06.9 RHEUMATOID ARTHRITIS, UNSPECIFIED 08/25/2017 Enma Mcginnis MD R32 UNSPECIFIED URINARY INCONTINENCE 08/25/2017 Enma Mcginnis MD T84.54XA INFECT/INFLM REACTION DUE TO INTERNAL LEFT KNEE SC 08/25/2017 Enma Mcginnis MD Z88.0 ALLERGY STATUS TO PENICILLIN 08/25/2017 Enma Mcginnis MD Z88.1 ALLERGY STATUS TO OTHER ANTIBIOTIC AGENTS STATUS 08/25/2017 Enma Mcginnis MD Z88.2 ALLERGY STATUS TO SULFONAMIDES STATUS 08/25/2017 Enma Mcginnis MD Z88.8 ALLERGY STATUS TO OTH DRUG/MEDS/BIOL SUBST STATUS 09/04/2017 F T84.54XD Infection and inflammatory reaction due to internal left knee prosthesis, subsequent encounter 09/09/2017 PATRIZIA REYES MD B96.5 Pseudomonas (aeruginosa) (mallei) (pseudomallei) as the cause of diseases classified elsewhere PATRIZIA REYES MD 09/09/2017 PATRIZIA REYES MD D64.9 Anemia, unspecified PATRIZIA REYES MD 09/09/2017 PATRIZIA REYES MD M06.9 Rheumatoid arthritis, unspecified PATRIZIA REYES MD 09/09/2017 PATRIZIA REYES MD T84.54XA Infection and inflammatory reaction due to internal left knee prosthesis , initial encounter PATRIZIA REYES MD 09/09/2017 PATRIZIA REYES MD 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 PATRIZIA REYES MD 09/09/2017 PATRIZIA REYES MD Z86.19 Personal history of other infectious and parasitic diseases PATRIZIA REYES MD 09/09/2017 PATRIZIA REYES MD Z87.891 Personal history of nicotine dependence PATRIZIA REYES MD 09/09/2017 PATRIZIA REYES MD Z88.0 Allergy status to penicillin PATRIZIA REYES MD 09/09/2017 PATRIZIA REYES MD Z88.1 Allergy status to other antibiotic agents status PATRIZIA REYES MD 09/09/2017 PATRIZIA REYES MD Z88.2 Allergy status to sulfonamides status PATRIZIA REYES MD 09/09/2017 PATRIZIA REYES MD Z89.522 Acquired absence of left knee PATRIZIA REYES MD 09/11/2017 PATRIZIA REYES MD B96.5 Pseudomonas (aeruginosa) (mallei) (pseudomallei) as the cause of diseases classified elsewhere NAYAN MESA MD 09/11/2017 PATRIZIA REYES MD D64.9 Anemia, unspecified NAYAN MESA MD 09/11/2017 PATRIZIA REYES MD M06.9 Rheumatoid arthritis, unspecified NAYAN MESA MD 09/11/2017 PATRIZIA REYES MD T84.54XA Infection and inflammatory reaction due to internal left knee prosthesis , initial encounter NAYAN MESA MD 09/11/2017 PATRIZIA REYES MD Z79.01 penitentiary (current) use of anticoagulants NAYAN MESA MD 09/11/2017 PATRIZIA REYES MD 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 NAYAN MESA MD 09/11/2017 PATRIZIA REYES MD Z86.718 Personal history of other venous thrombosis and embolism NAYAN MESA MD 09/18/2017 F T84.54XD Infection and inflammatory reaction due to internal left knee prosthesis, subsequent encounter 09/22/2017 PATRIZIA REYES MD B96.5 Pseudomonas (aeruginosa) (mallei) (pseudomallei) as the cause of diseases classified elsewhere NAYAN MESA MD 09/22/2017 PATRIZIA REYES MD D64.9 Anemia, unspecified NAYAN MESA MD 09/22/2017 PATRIZIA REYES MD M06.9 Rheumatoid arthritis, unspecified NAYAN MESA MD 09/22/2017 PATRIZIA REYES MD T84.54XA Infection and inflammatory reaction due to internal left knee prosthesis , initial encounter NAYAN MESA MD 09/22/2017 PATRIZIA REYES MD 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 NAYAN MESA MD 09/22/2017 PATRIZIA REYES MD 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 NAYAN MESA MD 09/22/2017 PATRIZIA REYES MD Z86.718 Personal history of other venous thrombosis and embolism NAYAN MESA MD 09/22/2017 PATRIZIA REYES MD Z87.891 Personal history of nicotine dependence NAYAN MESA MD 09/22/2017 PATRIZIA REYES MD Z89.522 Acquired absence of left knee NAYAN MESA MD 10/02/2017 PATRIZIA REYES MD B96.5 Pseudomonas (aeruginosa) (mallei) (pseudomallei) as the cause of diseases classified elsewhere NORA AKBAR MD 10/02/2017 PATRIZIA REYES MD D64.9 Anemia, unspecified NORA AKBAR MD 10/02/2017 PATRIZIA REYES MD M06.9 Rheumatoid arthritis, unspecified NORA AKBAR MD 10/02/2017 PATRIZIA REYES MD T84.54XA Infection and inflammatory reaction due to internal left knee prosthesis , initial encounter NORA AKBAR MD 10/02/2017 PATRIZIA REYES MD 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 NORA AKBAR MD 10/02/2017 PATRIZIA REYES MD 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 NORA AKBAR MD 10/02/2017 PATRIZIA REYES MD Z86.718 Personal history of other venous thrombosis and embolism NORA AKBAR MD 10/02/2017 PATRIZIA REYES MD Z87.891 Personal history of nicotine dependence NORA AKBAR MD 10/02/2017 PATRIZIA REYES MD Z89.522 Acquired absence of left knee NORA AKBAR MD 10/09/2017 F T84.54XD Infection and inflammatory reaction due to internal left knee prosthesis, subsequent encounter 10/29/2017 PATRIZIA REYES MD B96.5 Pseudomonas (aeruginosa) (mallei) (pseudomallei) as the cause of diseases classified elsewhere PATRIZIA REYES MD 10/29/2017 PATRIZIA REYES MD D68.51 Activated protein C resistance PATRIZIA REYES MD 10/29/2017 PATRIZIA REYES MD M06.9 Rheumatoid arthritis, unspecified PATRIZIA REYES MD 10/29/2017 PATRIZIA REYES MD T84.54XA Infection and inflammatory reaction due to internal left knee prosthesis , initial encounter PATRIZIA REYES MD 10/29/2017 PATRIZIA REYES MD 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 PATRIZIA REYES MD 10/29/2017 PATRIZIA REYES MD Z86.19 Personal history of other infectious and parasitic diseases PATRIZIA REYES MD 10/29/2017 PATRIZIA REYES MD Z86.718 Personal history of other venous thrombosis and embolism PATRIZIA REYES MD 10/29/2017 PATRIZIA REYES MD Z87.891 Personal history of nicotine dependence PATRIZIA REYES MD 10/29/2017 PATRIZIA REYES MD Z88.0 Allergy status to penicillin PATRIZIA REYES MD 10/29/2017 PATRIZIA REYES MD Z88.1 Allergy status to other antibiotic agents status PATRIZIA REYES MD 10/29/2017 PATRIZIA REYES MD Z88.2 Allergy status to sulfonamides status PATRIZIA REYES MD 10/29/2017 PATRIZIA REYES MD Z89.522 Acquired absence of left knee PATRIZIA REYES MD 10/29/2017 PATRIZIA REYES MD Z94.89 Other transplanted organ and tissue status PATRIZIA REYES MD 11/03/2017 Enma Mcginnis MD D68.51 ACTIVATED PROTEIN C RESISTANCE 11/03/2017 Enma Mcginnis MD D69.6 THROMBOCYTOPENIA, UNSPECIFIED 11/03/2017 Enma Mcginnis MD E66.01 MORBID (SEVERE) OBESITY DUE TO EXCESS CALORIES 11/03/2017 Enma Mcginnis MD G25.81 RESTLESS LEGS SYNDROME 11/03/2017 Enma Mcginnis MD I11.0 HYPERTENSIVE HEART DISEASE WITH HEART FAILURE 11/03/2017 Enma Mcginnis MD I50.33 ACUTE ON CHRONIC DIASTOLIC (CONGESTIVE) HEART FAIL 11/03/2017 Enma Mcginnis MD J96.00 ACUTE RESPIRATORY FAILURE, UNSP W HYPOXIA OR HYPER 11/03/2017 Enma Mcginnis MD N17.9 ACUTE KIDNEY FAILURE, UNSPECIFIED 11/03/2017 Enma Mcginnis MD N28.9 DISORDER OF KIDNEY AND URETER, UNSPECIFIED 11/03/2017 Enma Mcginnis MD T84.54XA INFECT/INFLM REACTION DUE TO INTERNAL LEFT KNEE SC 11/03/2017 Enma Mcginins MD Y82.8 OTHER MEDICAL DEVICES ASSOCIATED WITH ADVERSE INCI 11/03/2017 Enma Mcginnis MD Y92.[address] OF OCCURRENCE OF THE EXTER 11/03/2017 Enma Mcginnis MD Z41.9 ENCNTR FOR PROC FOR PURPOSE OTH THAN REM[place] HLTH STATE, UNSP 11/03/2017 Enma Mcginnis MD Z47.33 AFTERCARE FOLLOWING EXPLANTATION OF KNEE JOINT PRO 11/03/2017 Enma Mcginnis MD Z88.0 ALLERGY STATUS TO PENICILLIN 11/03/2017 Enma Mcginnis MD Z88.2 ALLERGY STATUS TO SULFONAMIDES STATUS 11/03/2017 Enma Mcginnis MD Z88.8 ALLERGY STATUS TO OTH DRUG/MEDS/BIOL SUBST STATUS 11/16/2017 PATRIZIA REYES MD B96.5 Pseudomonas (aeruginosa) (mallei) (pseudomallei) as the cause of diseases classified elsewhere PATRIZIA REYES MD 11/16/2017 PATRIZIA REYES MD D68.51 Activated protein C resistance PATRIZIA REYES MD 11/16/2017 PATRIZIA REYES MD E66.9 Obesity, unspecified PATRIZIA REEYS MD 11/16/2017 PATRIZIA REYES MD J96.11 Chronic respiratory failure with hypoxia PATRIZIA REYES MD 11/16/2017 PATRIZIA REYES MD M06.9 Rheumatoid arthritis, unspecified PATRIZIA REYES MD 11/16/2017 PATRIZIA REYES MD T84.54XA Infection and inflammatory reaction due to internal left knee prosthesis , initial encounter PATRIZIA REYES MD 11/16/2017 PATRIZIA REYES MD Z68.30 Body mass index (BMI) 30.0-30.9, adult PATRIZIA REYES MD 11/16/2017 PATRIZIA REYES MD 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 PATRIZIA REYES MD 11/16/2017 PATRIZIA REYES MD 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 PATRIZIA REYES MD 11/16/2017 PATRIZIA REYES MD Z86.718 Personal history of other venous thrombosis and embolism PATRIZIA REYES MD 11/16/2017 PATRIZIA REYES MD Z99.81 Dependence on supplemental oxygen PATRIZIA REYES MD 11/16/2017 PATRIZIA REYES MD B96.5 Pseudomonas (aeruginosa) (mallei) (pseudomallei) as the cause of diseases classified elsewhere CIERA QUISPE MD 11/16/2017 PATRIZIA REYES MD D68.51 Activated protein C resistance CIERA QUISPE MD 11/16/2017 PATRIZIA REYES MD E66.9 Obesity, unspecified CIERA QUISPE MD 11/16/2017 PATRIZIA REYES MD J96.11 Chronic respiratory failure with hypoxia CIERA QUISPE MD 11/16/2017 PATRIZIA REYES MD M06.9 Rheumatoid arthritis, unspecified CIERA QUISPE MD 11/16/2017 PATRIZIA REYES MD T84.54XA Infection and inflammatory reaction due to internal left knee prosthesis , initial encounter CIERA QUISPE MD 11/16/2017 PATRIZIA REYES MD Z68.30 Body mass index (BMI) 30.0-30.9, adult CIERA QUISPE MD 11/16/2017 PATRIZIA REYES MD 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 CIERA QUISPE MD 11/16/2017 PATRIZIA REYES MD 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 CIERA QUISPE MD 11/16/2017 PATRIZIA REYES MD Z86.718 Personal history of other venous thrombosis and embolism CIERA QUISPE MD 11/16/2017 PATRIZIA REYES MD Z99.81 Dependence on supplemental oxygen CIERA QUISPE MD 11/19/2017 PATRIZIA REYES MD B96.5 Pseudomonas (aeruginosa) (mallei) (pseudomallei) as the cause of diseases classified elsewhere PATRIZIA REYES MD 11/19/2017 PATRIZIA REYES MD D68.51 Activated protein C resistance PATRIZIA REYES MD 11/19/2017 PATRIZIA REYES MD E66.9 Obesity, unspecified PATRIZIA REYES MD 11/19/2017 PATRIZIA REEYS MD J96.11 Chronic respiratory failure with hypoxia PATRIZIA REYES MD 11/19/2017 PATRIZIA REYES MD M06.9 Rheumatoid arthritis, unspecified PATRIZIA REYES MD 11/19/2017 PATRIZIA REYES MD T84.54XA Infection and inflammatory reaction due to internal left knee prosthesis , initial encounter PATRIZIA REYES MD 11/19/2017 PATRIZIA REYES MD Z68.30 Body mass index (BMI) 30.0-30.9, adult PATRIZIA REYES MD 11/19/2017 PATRIZIA REYES MD 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 PATRIZIA REYES MD 11/19/2017 PATRIZIA REYES MD Z86.718 Personal history of other venous thrombosis and embolism PATRIZIA REYES MD 11/19/2017 PATRIZIA REYES MD Z99.81 Dependence on supplemental oxygen PATRIZIA REYES MD 11/26/2017 PATRIZIA REYES MD B96.5 Pseudomonas (aeruginosa) (mallei) (pseudomallei) as the cause of diseases classified elsewhere CIERA QUISPE MD 11/26/2017 PATRIZIA REYES MD D68.51 Activated protein C resistance CIERA QUISPE MD 11/26/2017 PATRIZIA REYES MD E66.9 Obesity, unspecified CIERA QUISPE MD 11/26/2017 PATRIZIA REYES MD J96.11 Chronic respiratory failure with hypoxia CIERA QUISPE MD 11/26/2017 PATRIZIA REYES MD M06.9 Rheumatoid arthritis, unspecified CIERA QUISPE MD 11/26/2017 PATRIZIA REYES MD T84.54XA Infection and inflammatory reaction due to internal left knee prosthesis , initial encounter CIERA QUISPE MD 11/26/2017 PATRIZIA REYES MD Z68.30 Body mass index (BMI) 30.0-30.9, adult CIERA QUISPE MD 11/26/2017 PATRIZIA REYES MD 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 CIERA QUISPE MD 11/26/2017 PATRIZIA REYES MD 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 CIERA QUISPE MD 11/26/2017 PATRIZIA REYES MD Z86.718 Personal history of other venous thrombosis and embolism CIERA QUISPE MD 11/26/2017 PATRIZIA REYES MD Z99.81 Dependence on supplemental oxygen JOSE ENRIQUE COLE, CIERA D 11/27/2017 F T84.54XD Infection and inflammatory reaction due to internal left knee prosthesis, subsequent encounter 11/27/2017 F Z96.652 Presence of left artificial knee joint 12/10/2017 F T84.54XD Infection and inflammatory reaction due to internal left knee prosthesis, subsequent encounter 12/24/2017 TOMAS DO DARON Ot B35.1 TINEA UNGUIUM 12/24/2017 SANTANA DO, DARON Ot D64.9 ANEMIA, UNSPECIFIED 12/24/2017 SANTANA DO, DARON Ot D68.2 HEREDITARY DEFICIENCY OF OTHER CLOTTING 12/24/2017 SANTANA DO, DARON Ot G25.81 RESTLESS LEGS SYNDROME 12/24/2017 SANTANA DO, DARON Ot G47.33 OBSTRUCTIVE SLEEP APNEA (ADULT) (PEDIATR 12/24/2017 SANTANA DO, DARON Ot G60.9 HEREDITARY AND IDIOPATHIC NEUROPATHY, UN 12/24/2017 SANTANA DO, DARON Ot I38 ENDOCARDITIS, VALVE UNSPECIFIED 12/24/2017 TOMAS DO DARON Ot I50.30 UNSPECIFIED DIASTOLIC (CONGESTIVE) HEART 12/24/2017 SANTANA DO, DARON Ot L60.0 INGROWING NAIL 12/24/2017 TOMAS DO, DARON Ot M06.9 RHEUMATOID ARTHRITIS, UNSPECIFIED 12/24/2017 SANTANA DO, DARON Ot M19.012 PRIMARY OSTEOARTHRITIS, LEFT SHOULDER 12/24/2017 TOMAS DO DARON Ot M20.41 OTHER HAMMER TOE(S) (ACQUIRED), RIGHT FO 12/24/2017 TOMAS DAILEY DARON Ot M20.42 OTHER HAMMER TOE(S) (ACQUIRED), LEFT DARIUSZ 12/24/2017 TOMAS DAILEY DARON Ot N32.81 OVERACTIVE BLADDER 12/24/2017 TOMSA DAILEY DARON Ot R06.89 OTHER ABNORMALITIES OF BREATHING 12/24/2017 TOMAS DAILEY DARON Ot Z47.1 AFTERCARE FOLLOWING JOINT REPLACEMENT MA 12/24/2017 TOMAS DAILEY DARON Ot 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 OF ANTICOAGULANT 12/24/2017 TOMAS DAILEY DARON Ot Z87.891 PERSONAL HISTORY OF NICOTINE DEPENDENCE 12/24/2017 TOMAS DAILEY DARON Ot Z96.652 PRESENCE OF LEFT ARTIFICIAL KNEE JOINT 12/24/2017 SANTANA DO DARON Ot Z99.81 DEPENDENCE ON SUPPLEMENTAL OXYGEN 12/31/2017 SANTANA DO DARON Ot B35.1 TINEA UNGUIUM 12/31/2017 SANTANA DO DARON Ot D64.9 ANEMIA, UNSPECIFIED 12/31/2017 SANTANA DO DARON Ot D68.2 HEREDITARY DEFICIENCY OF OTHER CLOTTING 12/31/2017 SANTANA DO, DARON Ot G25.81 RESTLESS LEGS SYNDROME 12/31/2017 SANTANA DO DARON Ot G47.33 OBSTRUCTIVE SLEEP APNEA (ADULT) (PEDIATR 12/31/2017 SANTANA DO DARON Ot G60.9 HEREDITARY AND IDIOPATHIC NEUROPATHY, UN 12/31/2017 SANTANA DO DARON Ot I38 ENDOCARDITIS, VALVE UNSPECIFIED 12/31/2017 SANTANA DO DARON Ot I50.30 UNSPECIFIED DIASTOLIC (CONGESTIVE) HEART 12/31/2017 SANTANA DO DARON Ot L60.0 INGROWING NAIL 12/31/2017 SANTANA DO DARON Ot M06.9 RHEUMATOID ARTHRITIS, UNSPECIFIED 12/31/2017 SANTANA DO DARON Ot M19.012 PRIMARY OSTEOARTHRITIS, LEFT SHOULDER 12/31/2017 SANTANA DO DARON Ot M20.41 OTHER HAMMER TOE(S) (ACQUIRED), RIGHT FO 12/31/2017 SANTANA DO DARON Ot M20.42 OTHER HAMMER TOE(S) (ACQUIRED), LEFT DARIUSZ 12/31/2017 SANTANA DO DARON Ot N32.81 OVERACTIVE BLADDER 12/31/2017 TOMAS DAILEY DARON Ot R06.89 OTHER ABNORMALITIES OF BREATHING 12/31/2017 TOMAS DAILEY DARON Ot Z47.1 AFTERCARE FOLLOWING JOINT REPLACEMENT MA 12/31/2017 TOMAS DAILEY DARON Ot Z79.01 LONG-TERM (CURRENT) USE OF ANTICOAGULANT 12/31/2017 TOMAS DAILEY DARON Ot Z87.891 PERSONAL HISTORY OF NICOTINE DEPENDENCE 12/31/2017 TOMAS DAILEY DARON Ot Z96.652 PRESENCE OF LEFT ARTIFICIAL KNEE JOINT 12/31/2017 SANTANA DO DARON Ot Z99.81 DEPENDENCE ON SUPPLEMENTAL OXYGEN 01/06/2018 TOMAS DO DARON Ot B35.1 TINEA UNGUIUM 01/06/2018 TOMAS DO DARON Ot D64.9 ANEMIA, UNSPECIFIED 01/06/2018 SANTANA DO DARON Ot D68.2 HEREDITARY DEFICIENCY OF OTHER CLOTTING 01/06/2018 SANTANA DO DARON Ot G25.81 RESTLESS LEGS SYNDROME 01/06/2018 SANTANA DO DARON Ot G47.33 OBSTRUCTIVE SLEEP APNEA (ADULT) (PEDIATR 01/06/2018 SANTANA DO DARON Ot G60.9 HEREDITARY AND IDIOPATHIC NEUROPATHY, UN 01/06/2018 SANTANA DO DARON Ot I38 ENDOCARDITIS, VALVE UNSPECIFIED 01/06/2018 SANTANA DO DARON Ot I50.30 UNSPECIFIED DIASTOLIC (CONGESTIVE) HEART 01/06/2018 SANTANA DO DARON Ot J30.9 ALLERGIC RHINITIS, UNSPECIFIED 01/06/2018 SANTANA DO DARON Ot L60.0 INGROWING NAIL 01/06/2018 SANTANA DO DARON Ot M06.9 RHEUMATOID ARTHRITIS, UNSPECIFIED 01/06/2018 SANTANA DO DARON Ot M19.012 PRIMARY OSTEOARTHRITIS, LEFT SHOULDER 01/06/2018 TOMAS DAILEY DARON Ot M20.41 OTHER HAMMER TOE(S) (ACQUIRED), RIGHT FO 01/06/2018 TOMAS DAILEY DARON Ot M20.42 OTHER HAMMER TOE(S) (ACQUIRED), LEFT DARIUSZ 01/06/2018 TOMAS DAILEY DARON Ot N32.81 OVERACTIVE BLADDER 01/06/2018 TOMAS DAILEY DARON Ot R06.89 OTHER ABNORMALITIES OF BREATHING 01/06/2018 TOMAS DAILEY DARON Ot Z47.1 AFTERCARE FOLLOWING JOINT REPLACEMENT MA 01/06/2018 TOMAS DAILEY DARON Ot 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 OF ANTICOAGULANT 01/06/2018 TOMAS DAILEY DARON Ot Z87.891 PERSONAL HISTORY OF NICOTINE DEPENDENCE 01/06/2018 TOMAS DAILEY DARON Ot Z96.652 PRESENCE OF LEFT ARTIFICIAL KNEE JOINT 01/06/2018 TOMAS DAILEY DARON Ot Z99.81 DEPENDENCE ON SUPPLEMENTAL OXYGEN 01/14/2018 PATRIZIA REYES MD B96.5 Pseudomonas (aeruginosa) (mallei) (pseudomallei) as the cause of diseases classified elsewhere AMY COLE, PATRIZIA Okeefe 01/14/2018 PATRIZIA REYES MD D68.51 Activated protein C resistance AMY COLE, PATRIZIA Okeefe 01/14/2018 PATRIZIA REYES MD M06.9 Rheumatoid arthritis, unspecified PATRIZIA REYES MD 01/14/2018 PATRIZIA REYES MD T84.54XD Infection and inflammatory reaction due to internal left knee prosthesis , subsequent encounter PATRIZIA REYES MD 01/14/2018 PATRIZIA REYES MD 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 PATRIZIA REYES MD 01/14/2018 PATRIZIA REYES MD Z86.19 Personal history of other infectious and parasitic diseases PATRIZIA REYES MD 01/14/2018 PATRIZIA REYES MD Z86.718 Personal history of other venous thrombosis and embolism PATRIZIA REYES MD 01/14/2018 PATRIZIA REYES MD Z87.891 Personal history of nicotine dependence PATRIZIA REYES MD 01/14/2018 PATRIZIA REYES MD Z88.0 Allergy status to penicillin PATRIZIA REYES MD 01/14/2018 PATRIZIA REYES MD Z88.1 Allergy status to other antibiotic agents status PATRIZIA REYES MD 01/14/2018 PATRIZIA REYES MD Z88.2 Allergy status to sulfonamides status PATRIZIA REYES MD 01/15/2018 SASHA VILLANUEVA 459.81 VENOUS (PERIPHERAL) INSUFFICIENCY, UNSPECIFIED 01/15/2018 SASHA VILLANUEVA 820.00 FRACTURE OF UNSPECIFIED INTRACAPSULAR SECTION OF NECK OF FEMUR, CLOSED 01/15/2018 SASHA VILLANUEVA 873.0 OPEN WOUND OF SCALP, WITHOUT MENTION OF COMPLICATION 01/15/2018 SASHA VILLANUEVA I87.2 VENOUS INSUFFICIENCY (CHRONIC) (PERIPHERAL) 01/15/2018 SASHA VILLANUEVA S01.01XA LACERATION WITHOUT FOREIGN BODY OF SCALP, INITIAL ENCOUNTER 01/15/2018 SASHA VILLANUEVA S72.012A UNSP INTRACAPSULAR FRACTURE OF LEFT FEMUR, INIT FOR CLOS FX 01/15/2018 Shahram Scales MD B96.5 PSEUDOMONAS (MALLEI) CAUSING DISEASES CLASSD ELSWH 01/15/2018 Shahram Scales MD D68.2 HEREDITARY DEFICIENCY OF OTHER CLOTTING FACTORS 01/15/2018 Shahram Scales MD D68.51 ACTIVATED PROTEIN C RESISTANCE 01/15/2018 Shahram Scales MD E66.9 OBESITY, UNSPECIFIED 01/15/2018 Shahram Scales MD G25.81 RESTLESS LEGS SYNDROME 01/15/2018 Shahram Scales MD G62.9 POLYNEUROPATHY, UNSPECIFIED 01/15/2018 Shahram Scales MD G89.29 OTHER CHRONIC PAIN 01/15/2018 Shahram Scales MD J96.11 CHRONIC RESPIRATORY FAILURE WITH HYPOXIA 01/15/2018 Shahram Scales MD K59.00 CONSTIPATION, UNSPECIFIED 01/15/2018 Shahram Scales MD M06.9 RHEUMATOID ARTHRITIS, UNSPECIFIED 01/15/2018 Shahram Scales MD M17.12 UNILATERAL PRIMARY OSTEOARTHRITIS, LEFT KNEE 01/15/2018 Shahram Scales MD M25.551 PAIN IN RIGHT HIP 01/15/2018 Shahram Scales MD M25.552 PAIN IN LEFT HIP 01/15/2018 Shahram Scales MD R19.7 DIARRHEA, UNSPECIFIED 01/15/2018 Shahram Scales MD R32 UNSPECIFIED URINARY INCONTINENCE 01/15/2018 Shahram Scales MD R53.1 WEAKNESS 01/15/2018 Shahram Scales MD R53.83 OTHER FATIGUE 01/15/2018 Shahram Scales MD R60.9 EDEMA, UNSPECIFIED 01/15/2018 Shahram Scales MD S72.002A FRACTURE OF UNSP PART OF NECK OF LEFT FEMUR, INIT 01/15/2018 Shahram Scales MD S72.012A UNSP INTRACAPSULAR FRACTURE OF LEFT FEMU 01/15/2018 Shahram Scales MD W01.0XXA FALL SAME LEV FROM SLIP/TRIP W/O STRIKE AGAINST OB 01/15/2018 Shahram Scales MD Y92.89 [facility] PLACES THE PLACE OF OCCURRENCE OF THE EXTER 01/15/2018 Shahram Scales MD Y93.89 ACTIVITY, OTHER SPECIFIED 01/15/2018 Shahram Scales MD Y99.8 OTHER EXTERNAL CAUSE STATUS 01/15/2018 Shahram Scales MD Z68.35 BODY MASS INDEX (BMI) 35.0-35.9, ADULT 01/15/2018 Shahrma Scales MD Z79.01 LONG-TERM (CURRENT) USE OF ANTICOAGULANTS 01/15/2018 Shahram Scales MD Z79.02 ANTIQUE FURNITURE REPAIRER (CURRENT) USE OF ANTITHROMBOTICS/ANTIPLA 01/15/2018 Shahram Scales MD Z79.1 ANTIQUE FURNITURE REPAIRER (CURRENT) USE OF NON-STEROIDAL NON-INFLA 01/15/2018 Shahram Scales MD Z79.82 LONG-TERM (CURRENT) USE OF ASPIRIN 01/15/2018 Shahram Scales MD Z86.718 PERSONAL HISTORY OF OTHER VENOUS THROMBOSIS AND EM 01/15/2018 Shahram Scales MD Z87.891 PERSONAL HISTORY OF NICOTINE DEPENDENCE 01/15/2018 Shahram Scales MD Z88.0 ALLERGY STATUS TO PENICILLIN 01/15/2018 Shahram Scales MD Z88.1 ALLERGY STATUS TO OTHER ANTIBIOTIC AGENTS STATUS 01/15/2018 Shahram Scales MD Z88.2 ALLERGY STATUS TO SULFONAMIDES STATUS 01/15/2018 Shahram Scales MD Z88.3 ALLERGY STATUS TO OTHER ANTI-INFECTIVE AGENTS STAT 01/15/2018 Shahram Scales MD Z88.8 ALLERGY STATUS TO OTH DRUG/MEDS/BIOL SUBST STATUS 01/15/2018 Shahram Scales MD Z91.81 HISTORY OF FALLING 01/19/2018 F S72.042A Displaced fracture of base of neck of left femur, initial encounter for closed fracture 01/22/2018 F T84.54XD Infection and inflammatory reaction due to internal left knee prosthesis, subsequent encounter 01/22/2018 F Z96.652 Presence of left artificial knee joint 02/10/2018 W 289.81 PRIMARY HYPERCOAGULABLE STATE 02/10/2018 W 357.9 UNSPECIFIED INFLAMMATORY AND TOXIC NEUROPATHIES 02/10/2018 W 714.0 RHEUMATOID ARTHRITIS 02/10/2018 W 719.7 02/10/2018 W 780.79 OTHER MALAISE AND FATIGUE 02/10/2018 W D68.51 ACTIVATED PROTEIN C RESISTANCE 02/10/2018 W G62.9 POLYNEUROPATHY , UNSPECIFIED 02/10/2018 W M06.9 RHEUMATOID ARTHRITIS, UNSPECIFIED 02/10/2018 W R26.2 DIFFICULTY IN WALKING, NOT ELSEWHERE CLASSIFIED 02/10/2018 W R53.1 WEAKNESS 02/10/2018 W V43.65 KNEE JOINT REPLACED BY OTHER MEANS 02/10/2018 W Z96.652 PRESENCE OF LEFT ARTIFICIAL KNEE JOINT 02/13/2018 MYLA BIRCH MD Ot D50.0 IRON DEFICIENCY ANEMIA SECONDARY TO BLOO 02/13/2018 MYLA BIRCH MD Ot D68.2 HEREDITARY DEFICIENCY OF OTHER CLOTTING 02/13/2018 MYLA BIRCH MD Ot E66.9 OBESITY, UNSPECIFIED 02/13/2018 MYLA BIRCH MD Ot E78.00 PURE HYPERCHOLESTEROLEMIA, UNSPECIFIED 02/13/2018 MYLA BRICH MD Ot G47.33 OBSTRUCTIVE SLEEP APNEA (ADULT) (PEDIATR 02/13/2018 MYLA BIRCH MD Ot G47.34 IDIO SLEEP RELATED NONOBSTRUCTIVE ALVEOL 02/13/2018 MYLA BIRCH MD Ot I10 ESSENTIAL (PRIMARY) HYPERTENSION 02/13/2018 MYLA BIRCH MD Ot I87.2 VENOUS INSUFFICIENCY (CHRONIC) (PERIPHER 02/13/2018 MYLA BIRCH MD Ot J34.89 OTHER SPECIFIED DISORDERS OF NOSE AND NA 02/13/2018 MYLA BIRCH MD Ot K59.00 CONSTIPATION, UNSPECIFIED 02/13/2018 MYLA BIRCH MD Ot M06.9 RHEUMATOID ARTHRITIS, UNSPECIFIED 02/13/2018 MYLA BIRCH MD E Ot M19.011 PRIMARY OSTEOARTHRITIS, RIGHT SHOULDER 02/13/2018 MYLA BIRCH MD Ot M19.012 PRIMARY OSTEOARTHRITIS, LEFT SHOULDER 02/13/2018 MYLA BIRCH MD Ot M54.9 DORSALGIA, UNSPECIFIED 02/13/2018 MYLA BIRCH MD Ot N32.81 OVERACTIVE BLADDER 02/13/2018 MYLA BIRCH MD Ot R26.2 DIFFICULTY IN WALKING, NOT ELSEWHERE CLA 02/13/2018 MYLA BIRCH MD Ot R53.81 OTHER MALAISE 02/13/2018 MYLA BIRCH MD Ot R60.0 LOCALIZED EDEMA 02/13/2018 MYLA BIRCH MD Ot S72.002D FX UNSP PART OF NK OF L FEMR, SUBS FOR C 02/13/2018 MYLA BIRCH MD Ot W19.XXXD UNSPECIFIED FALL, SUBSEQUENT ENCOUNTER 02/13/2018 MYLA BIRCH MD, Ot Z68.32 BODY MASS INDEX (BMI) 32.0-32.9, ADULT 02/13/2018 MYLA BICRH MD, Ot 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 OF ANTICOAGULANT 02/13/2018 MYLA BIRCH MD, Ot Z79.52 ANTIQUE FURNITURE REPAIRER (CURRENT) USE OF SYSTEMIC STER 02/13/2018 MYLA BIRCH MD, Ot Z79.899 OTHER ANTIQUE FURNITURE REPAIRER (CURRENT) DRUG THERAPY 02/13/2018 MYLA BIRCH MD, Ot Z86.711 PERSONAL HISTORY OF PULMONARY EMBOLISM 02/13/2018 MYLA BIRCH MD, Ot Z86.718 PERSONAL HISTORY OF OTHER VENOUS THROMBO 02/13/2018 MYLA BIRCH MD, Ot Z86.79 PERSONAL HISTORY OF OTHER DISEASES OF TH 02/13/2018 MYLA BIRCH MD, Ot Z88.0 ALLERGY STATUS TO PENICILLIN 02/13/2018 MYLA BIRCH MD, Ot Z88.1 ALLERGY STATUS TO OTHER ANTIBIOTIC AGENT 02/13/2018 MYLA BIRCH MD, Ot Z88.8 ALLERGY STATUS TO OT DRUG/MEDS/BIOL SUB 02/13/2018 MYLA BIRCH MD, Ot Z96.652 PRESENCE OF LEFT ARTIFICIAL KNEE JOINT 02/14/2018 Daron Santana W 280.9 IRON DEFICIENCY ANEMIA, UNSPECIFIED 02/14/2018 Daron Santana W D50.9 IRON DEFICIENCY ANEMIA, UNSPECIFIED 02/16/2018 Daron Santana W 280.9 IRON DEFICIENCY ANEMIA, UNSPECIFIED 02/16/2018 Daron Santana D50.9 IRON DEFICIENCY ANEMIA, UNSPECIFIED 02/19/2018 F S72.042D Displaced fracture of base of neck of left femur, subsequent encounter for closed fracture with routine healing 03/14/2018 Devi Vasquez W 038.9 UNSPECIFIED SEPTICEMIA 03/14/2018 Devi Vasquez A41.9 SEPSIS, UNSPECIFIED ORGANISM 03/14/2018 Devi Vasquez W 038.9 UNSPECIFIED SEPTICEMIA 03/14/2018 Devi Vasquez A41.9 SEPSIS, UNSPECIFIED ORGANISM 03/14/2018 Devi Vasquez W 038.9 UNSPECIFIED SEPTICEMIA 03/14/2018 Devi Vasquez 682.9 CELLULITIS AND ABSCESS OF UNSPECIFIED SITES 03/14/2018 Faheem, Devi W A41.9 SEPSIS, UNSPECIFIED ORGANISM 03/14/2018 Faheem, Devi W Z87.2 PERSONAL HISTORY OF DISEASES OF THE SKIN AND SUBCUTANEOUS TISSUE 03/14/2018 Faheem, Devi W 038.9 UNSPECIFIED SEPTICEMIA 03/14/2018 Faheem, Devi W 682.9 CELLULITIS AND ABSCESS OF UNSPECIFIED SITES 03/14/2018 Faheem, Devi W A41.9 SEPSIS, UNSPECIFIED ORGANISM 03/14/2018 Faheem, Devi W Z87.2 PERSONAL HISTORY OF DISEASES OF THE SKIN AND SUBCUTANEOUS TISSUE 03/15/2018 Faheem, Devi W 038.9 UNSPECIFIED SEPTICEMIA 03/15/2018 Faheem, Devi W 682.9 CELLULITIS AND ABSCESS OF UNSPECIFIED SITES 03/15/2018 Faheem, Devi W A41.9 SEPSIS, UNSPECIFIED ORGANISM 03/15/2018 Faheem, Devi W Z87.2 PERSONAL HISTORY OF DISEASES OF THE SKIN AND SUBCUTANEOUS TISSUE 03/30/2018 Brie Randolph W 807.02 CLOSED FRACTURE OF TWO RIBS 03/30/2018 Brie Randolph W 861.21 CONTUSION OF LUNG WITHOUT OPEN WOUND INTO THORAX 03/30/2018 Brie Randolph W 958.7 TRAUMATIC SUBCUTANEOUS EMPHYSEMA 03/30/2018 Brie Randolph W S22.42XA MULTIPLE FRACTURES OF RIBS, LEFT SIDE, INIT FOR CLOS FX 03/30/2018 Brie Randolph S27.321A CONTUSION OF LUNG, UNILATERAL, INITIAL ENCOUNTER 03/30/2018 Brie Randolph T79.7XXA TRAUMATIC SUBCUTANEOUS EMPHYSEMA, INITIAL ENCOUNTER Procedures Code [place] [address] Office or other outpatient visit for the evaluation and management of an established patient, which NAYAN MESA MD 07/07/2015 06264 Office or other outpatient visit for the evaluation and management of an established patient, which NAYAN MESA MD 07/12/2015 93789 Office or other outpatient visit for the evaluation and management of an established patient, which NAYAN MESA MD 08/04/2015 84152 Office or other outpatient visit for the evaluation and management of a new patient, which requires Travis Jaimes 08/28/2015 83735 Office or other outpatient visit for the evaluation and management of a new patient, which requires Travis Jaimes 09/25/2015 21133 INJECTION/ASPIRATION, JOINT/ BURSA, Enma Gaona 2016 09068 Pelvis w/Hip Uni 2-3V Enma Mcginnis 2016 48701 Knee 4V WB Enma Mcginnis 2016 [id number] REPLACE OF L KNEE JT WITH SYNTH SUB, CEMENT, Enma Cullen MD 07/17/2016 42612 Knee 3V WB AP/BSR/Lat Enma Mcginnis 09/02/2016 [id number] EXTRACTION OF L LOW LEG SUBCU/FASCIA, Enma Flores MD 09/19/2016 [id number] IRRIGATION OF SKIN AND MUCOUS MEMBRANES USING Enma Tovar MD 09/19/2016 41438 Initial hospital care, per day, for the evaluation and management of a patient, which requires these PATRIZIA REYES MD 10/25/2016 69378 Initial hospital care, per day, for the evaluation and management of a patient, which requires these PATRIZIA REYES MD 11/21/2016 74548 Knee 3V WB Flexion/BSR/Lat Enma Mcginnis 06/12/2017 [id number] INSERTION OF SPACER INTO LEFT KNEE JOINT, Enma Card MD 08/25/2017 [id number] REMOVAL OF SYNTH SUB FROM L KNEE JT, Enma Snyder MD 08/25/2017 [id number] REPLACE OF L KNEE JT WITH SYNTH SUB, CEMENT, Enma Cullen MD 08/25/2017 05257 Initial hospital care, per day, for the evaluation and management of apatient, which requires these PATRIZIA REYES MD 09/09/2017 46944 Subsequent hospital care, per day, for the evaluation and management of a patient, which requires at PATRIZIA REYES MD 09/09/2017 25200 Office or other outpatient visit for the evaluation and management of an established patient, which NAYAN MESA MD 09/11/2017 28480 Office or other outpatient visit for the evaluation and management of an established patient, which NAYAN MESA MD 09/22/2017 28140 Office or other outpatient visit for the evaluation and management of an established patient, which NORA AKBAR MD 10/02/2017 49951 Initial hospital care, per day, for the evaluation and management of apatient, which requires these PATRIZIA REYES MD 10/06/2017 03196 Subsequent hospital care, per day, for the evaluation and management of a patient, which requires at PATRIZIA REYES MD 10/06/2017 42558 Office or other outpatient visit for the evaluation and management of an established patient, which NAYNA MESA MD 10/09/2017 16593 Office or other outpatient visit for the evaluation and management of an established patient, which NAYAN MESA MD 10/23/2017 26992 Office or other outpatient visit for the evaluation and management of an established patient, which PATRIZIA REYES MD 10/29/2017 95828 Office or other outpatient visit for the evaluation and management of an established patient, which NORA AKBAR MD 10/30/2017 [id number] REMOVAL OF SPACER FROM LEFT HIP JOINT, Enma Brooks MD 11/03/2017 [id number] REMOVAL OF SPACER FROM LEFT KNEE JOINT, Enma Jon MD 11/03/2017 [id number] REMOVAL OF SYNTH SUB FROM L KNEE JT, Enma Snyder MD 11/03/2017 [id number] REPLACE L KNEE JT W ZIRC ON POLY, CEMENT, Emna Cullen MD 11/03/2017 [id number] INTRODUCTION OF OTH ANTI- INFECT INTO JOINT, Enma Marx MD 11/03/2017 16190 Subsequent hospital care, per day, for the evaluation and management of a patient, which requires at PATRIZIA REYES MD 11/16/2017 76832 Subsequent hospital care, per day, for the evaluation and management of a patient, which requires at CIERA QUISPE MD 11/16/2017 87817 Subsequent hospital care, per day, for the evaluation and management of a patient, which requires at CIERA QUISPE MD 11/16/2017 95730 Initial hospital care, per day, for the evaluation and management of apatient, which requires these PATRIZIA REYES MD 11/19/2017 59218 Office or other outpatient visit for the evaluation and management of an established patient, which PATRIZIA REYES MD 11/24/2017 07607 Subsequent hospital care, per day, for the evaluation and management of a patient, which requires at CIERA QUISPE MD 11/26/2017 17389 Knee 3V WB AP/BSR/Lat Enma Mcginnis 12/10/2017 18780 Subsequent hospital care, per day, for the evaluation and management of a patient, which requires at CIERA QUISPE MD 12/12/2017 63048 Subsequent hospital care, per day, for the evaluation and management of a patient, which requires at CIERA QUISPE MD 12/12/2017 64473 Initial hospital care, per day, for the evaluation and management of apatient, which requires these PATRIZIA REYES MD 12/18/2017 85458 Subsequent hospital care, per day, for the evaluation and management of a patient, which requires at CIERA QUISPE MD 12/30/2017 55215 Office or other outpatient visit for the evaluation and management of an established patient, which PATRIZIA REYES MD 01/14/2018 [id number] REPOSITION LEFT UPPER FEMUR WITH INT FIX, OPEN JONATHAN Shahram Scales MD 01/15/2018 32405 Percutaneous skeletal fixation of femoral fracture, proximal end, neck Shahram Scales 01/19/2018 45104 Pelvis AP Shahram Scales 02/19/2018 82954 Pelvis w/Hip Uni 2-3V Yordy, Shahram 02/19/2018 <section xmlns="urn:hl7-org:v3" xmlns:xsi="http:// www.w3.org/2001/XMLSchema-instance"> <templateId root= "[id number]" /> <templateId root= "[id number]" /> <code codeSystemName="LOINC" codeSystem= "[id number]" code="74700-2" displayName="Results" /> <title>Results< /title> <text> <table> <thead> <tr> <th>Test</th> <th>Result</th> <th>Range</th> </tr> </thead> < tbody> <tr> <th colspan="10">COMPREHENSIVE METABOLIC PANEL - 10:41</th> </tr> <tr> <td>Albumin, Serum</td> <td>4.5 g/dL</td> <td>3.6-5.1</td> </tr> <tr> <td>ALP, Serum</td> <td>78 U/L</td> <td>33-130</td> </tr> <tr> <td>ALT (SGPT), Serum</td> <td>21 U/L</td > <td>6-29</td> </tr> <tr> <td>AST (SGOT), Serum </td> <td>24 U/L</td> <td>10-35</td> </tr> <tr> <td>Bilirubin,Tot,Serum</td> <td>0.5 mg/dL</td> <td> 0.2-1.2</td> </tr> <tr> <td>BUN</td> <td>18 mg/ dL</td> <td>7-25</td> </tr> <tr> <td>Calcium, Serum</td> <td>9.9 mg/dL</td> <td>8.6-10.4</td> </tr> <tr> <td>Creatinine, Serum</td> <td>0.89 mg/dL</td> <td>0.50-0.99</td> </tr> <tr> <td>Glucose, Serum</ td> <td>112 mg/dL</td> <td>65-99</td> </tr> <tr > <td>Potassium (K), Serum</td> <td>4.4 mmol/L</td> < td>3.5-5.3</td> </tr> <tr> <td>Protein, Total Serum</td> <td>7.2 g/dL</td> <td>6.1-8.1</td> </tr> <tr> <td>eGFR NON-AFR. SYRIAN</td> <td>67 mL/min/1.73m2</td> <td>> OR=60</td> </tr> <tr> <td>eGFR </td> <td>78 mL/min/1.73m2</td> <td>> OR=60</td> </tr> <tr> <td>BUN/CREATININE RATIO</td> <td>NOT APPLICABLE (calc)</td> <td>6-22</td> </tr> <tr> <td>SODIUM</td> <td>141 mmol/L</td> <td>135-146</td> </ tr> <tr> <td>CHLORIDE</td> <td>98 mmol/L</td> <td>98-110</td> </tr> <tr> <td>CARBON DIOXIDE</td> <td>28 mmol/L</td> <td>19-30</td> </tr> <tr> <td>GLOBULIN</td> <td>2.7 g/dL (calc)</td> <td>1.9-3.7</td> </tr> <tr> <td>ALBUMIN/GLOBULIN RATIO</td> <td> 1.7 (calc)</td> <td>1.0-2.5</td> </tr> <tr> <th colspan="10">SED RATE BY MODIFIED [facility]GREN - 07/03/15 10:41</th> </tr> <tr> <td>Sedimentation Rate,W</td> <td>1 mm/h</td> <td>< OR=30</td> </tr> <tr> <th colspan="10">C- REACTIVE PROTEIN - 07/03/15 10:41</th> </tr> <tr> <td>CRP , Qn</td> <td>0.30 mg/dL</td> <td><0.80</td> </tr> <tr> <th colspan="10">Blood Culture - 11/14/15 11:58</th> </tr> <tr> <td>PRELIM CULTURE RESULTS</td> <td>Blood Culture Negative, No Growth Day 1 </td> <td /> </tr> <tr > <td>FINAL CULTURE RESULTS</td> <td>Blood Culture Negative, No Growth Day 5 </td> <td /> </tr> <tr> <td> MEDIA PLATED</td> <td>Setup at 12:22 on 11/14/2015 Blood Culture Media Position [id number] </td> <td /> </tr> <tr> <td> CULTURE SOURCE</td> <td>right ac </td> <td /> </tr> <tr> <th colspan="10">BMP - 11/19/15 07:00</th> </tr> <tr> <td>Anion Gap</td> <td>14 </td> <td>6-14</td > </tr> <tr> <td>BUN</td> <td>15 mg/dL</td> <td>5-25</td> </tr> <tr> <td>Calcium</td> <td>9.2 mg/dL</td> <td>8.3-10.4</td> </tr> <tr> <td>Chloride</td> <td>104 mmol/L</td> <td>95-114</td> < /tr> <tr> <td>CO2</td> <td>28 mEq/L</td> <td> 22-33</td> </tr> <tr> <td>Creat</td> <td>0.62 mg /dL</td> <td>0.50-1.50</td> </tr> <tr> <td>eGFR< /td> <td>96 mL/min/1.73m2</td> <td>>59</td> </tr> <tr> <td>Glucose</td> <td>91 mg/dL</td> <td>70- 110</td> </tr> <tr> <td>Osmo</td> <td>294 </td> <td>280-295</td> </tr> <tr> <td>Potassium</td> <td>3.6 mmol/L</td> <td>3.5-5.3</td> </tr> <tr > <td>Sodium</td> <td>142 mmol/L</td> <td>134-148</td > </tr> <tr> <th colspan="10">Bacteria identification in isolate by anaerobe culture - 11/24/15 14:16</th> </tr> <tr> <td>Bacteria identification in isolate by anaerobe culture</td> < td>NG </td> <td>NRG</td> </tr> <tr> <th colspan= "10">Gram stain microscopy - 11/24/15 14:16</th> </tr> <tr> <td>GRAM STAIN RESULT</td> <td>NO WBC'S OR BACTERIA OBSERVED </ td> <td>NRG</td> </tr> <tr> <th colspan="10"> Bacteria identification in wound by culture - 11/24/15 14:16</th> </tr> <tr> <td>Bacteria identification in wound by culture</td> <td>NG </td> <td>NRG</td> </tr> <tr> <th colspan="10">Bacteria identification in isolate by anaerobe culture - 12/20/15 15:15</th> </tr> <tr> <td>Bacteria identification in isolate by anaerobe culture</td> <td>NOANA </td> <td>NRG</td> </tr> <tr> <th colspan="10">Gram stain microscopy - 10/26 15:15</th> </tr> <tr> <td>GRAM STAIN RESULT</td> <td>NO WBC'S OR BACTERIA OBSERVED </td> <td>NRG</td> </tr> <tr> <th colspan="10">Bacteria identification in wound by culture - 12/20/15 15:15</th> </tr> <tr> <td>Bacteria identification in wound by culture</td> <td>[id number] </td> < td>NRG</td> </tr> <tr> <td>FREE TEXT EXTERNAL</td> <td>SENSITIVITY REPORTED 12/23 13:10 </td> <td>NRG</td> </tr > <tr> <td>QUANTITY OF GROWTH</td> <td>Scant Growth </ td> <td>NRG</td> </tr> <tr> <th colspan="10"> Bacterial susceptibility panel - 12/20/15 15:15</th> </tr> <tr> <td>Trimethoprim/sulfamethoxazole susceptibility test by minimum inhibitoryconcentration</td> <td><=</td> <td>NRG</td> </tr> <tr> <th colspan="10">Creatinine - 01/02/16 10:30</th> </tr> <tr> <td>Creat</td> <td>0.76 mg/dL</td> <td>0.50-1.50</td> </tr> <tr> <td>eGFR</td> <td>76 mL/min/1.73m2</td> <td>>59</td> </tr> <tr > <th colspan="10">Protime - 01/04/16 17:15</th> </tr> < tr> <td>INR</td> <td>4.5 </td> <td>1.0-4.0</td> </tr> <tr> <td>Protime</td> <td>57.0 called to brandon Sec</td> <td>9.9-12.8</td> </tr> <tr> <th colspan="10">BMP - 01/04/16 17:15</th> </tr> <tr> <td> Anion Gap</td> <td>16 </td> <td>6-14</td> </tr> <tr> <td>BUN</td> <td>19 mg/dL</td> <td>5-25</td> </tr> <tr> <td>Calcium</td> <td>9.2 mg/dL</td> <td>8.3-10.4</td> </tr> <tr> <td>Chloride</td> <td>102 mmol/L</td> <td>95-114</td> </tr> <tr> <td>CO2</td> <td>27 mEq/L</td> <td>22-33</td> </ tr> <tr> <td>Creat</td> <td>1.04 mg/dL</td> < td>0.50-1.50</td> </tr> <tr> <td>eGFR</td> <td> 53 mL/min/1.73m2</td> <td>>59</td> </tr> <tr> <td>Glucose</td> <td>87 mg/dL</td> <td>70-110</td> </ tr> <tr> <td>Osmo</td> <td>293 </td> <td>280- 295</td> </tr> <tr> <td>Potassium</td> <td>4.0 mmol/L</td> <td>3.5-5.3</td> </tr> <tr> <td> Sodium</td> <td>141 mmol/L</td> <td>134-148</td> </tr> <tr> <th colspan="10">Protime - 01/05/16 06:55</th> </ tr> <tr> <td>INR</td> <td>3.7 </td> <td>1.0- 4.0</td> </tr> <tr> <td>Protime</td> <td>46.9 Sec</td> <td>9.9-12.8</td> </tr> <tr> <th colspan="10">Comprehensive Metabolic Panel - 01/06/16 10:47</th> </tr> <tr> <td>Albumin</td> <td>3.8 g/dL</td> <td>3.6 -5.1</td> </tr> <tr> <td>ALP</td> <td>83 U/L</td > <td>35-130</td> </tr> <tr> <td>ALT</td> <td>19 U/L</td> <td>6-45</td> </tr> <tr> <td >Anion Gap</td> <td>16 </td> <td>6-14</td> </tr> <tr> <td>AST</td> <td>24 U/L</td> <td>2-40</td> </tr> <tr> <td>BUN</td> <td>16 mg/dL</td> <td>5-25</td> </tr> <tr> <td>Calcium</td> <td> 9.1 mg/dL</td> <td>8.3-10.4</td> </tr> <tr> <td> Chloride</td> <td>106 mmol/L</td> <td>95-114</td> </tr > <tr> <td>CO2</td> <td>22 mEq/L</td> <td>22- 33</td> </tr> <tr> <td>Creat</td> <td>0.83 mg/dL </td> <td>0.50-1.50</td> </tr> <tr> <td>eGFR</td > <td>68 mL/min/1.73m2</td> <td>>59</td> </tr> <tr> <td>Globulin</td> <td>2.9 g/dL</td> <td>2.3- 3.5</td> </tr> <tr> <td>Glucose</td> <td>89 mg/ dL</td> <td>70-110</td> </tr> <tr> <td>Osmo</td > <td>290 </td> <td>280-295</td> </tr> <tr> <td>Potassium</td> <td>3.6 mmol/L</td> <td>3.5-5.3</td> </tr> <tr> <td>Sodium</td> <td>140 mmol/L</td> <td>134-148</td> </tr> <tr> <td>TBil</td> <td>1.0 mg/dL</td> <td>0.2-1.2</td> </tr> <tr> <td>TP</td> <td>6.7 g/dL</td> <td>6.0-8.3</td> </ tr> <tr> <th colspan="10">Urine Culture - 01/06/16 10:47</th> </tr> <tr> <td>FINAL CULTURE RESULTS</td> <td>20, 000-50,000 Gram Positive Mixed [id number]<10,000 Gram [id number] Further Workup </td> <td /> </tr> <tr> <td> MEDIA PLATED</td> <td>Setup at 11:10 on 01/07/2016 </td> <td / > </tr> <tr> <td>CULTURE SOURCE</td> <td>Void </ td> <td /> </tr> <tr> <th colspan="10">Protime - 01/06/16 11:40</th> </tr> <tr> <td>INR</td> < td>4.5 called to Susie </td> <td>1.0-4.0</td> </tr> <tr > <td>Protime</td> <td>57.1 Sec</td> <td>9.9-12.8</td > </tr> <tr> < colspan="10">Blood Culture - 01/06/16 11 :55</th> </tr> <tr> <td>PRELIM CULTURE RESULTS</td> <td>Blood Culture Negative, No Growth Day 1 </td> <td /> </ tr> <tr> <td>FINAL CULTURE RESULTS</td> <td>Blood Culture Negative, No Growth Day 5 </td> <td /> </tr> <tr > <td>MEDIA PLATED</td> <td>Setup at 12:21 on 01/06/2016 B-34 </td> <td /> </tr> <tr> <td>CULTURE SOURCE</td> <td>right hand </td> <td /> </tr> <tr> < colspan="10">Blood Culture - 01/06/16 12:00</th> </tr> <tr> <td>PRELIM CULTURE RESULTS</td> <td>Blood Culture Negative, No Growth Day 1 </td> <td /> </tr> <tr> <td> FINAL CULTURE RESULTS</td> <td>Blood Culture Negative, No Growth Day 5 </td> <td /> </tr> <tr> <td>MEDIA PLATED</td> <td>Setup at 12:21 on 01/06/2016 Blood Culture Media Position A-15 </td > <td /> </tr> <tr> <td>CULTURE SOURCE</td> <td>left ac </td> <td /> </tr> <tr> < colspan="10">BMP - 01/07/16 06:57</th> </tr> <tr> <td> Anion Gap</td> <td>12 </td> <td>6-14</td> </tr> <tr> <td>BUN</td> <td>15 mg/dL</td> <td>5-25</td> </tr> <tr> <td>Calcium</td> <td>8.7 mg/dL</td> <td>8.3-10.4</td> </tr> <tr> <td>Chloride</td> <td>104 mmol/L</td> <td>95-114</td> </tr> <tr> <td>CO2</td> <td>26 mEq/L</td> <td>22-33</td> </ tr> <tr> <td>Creat</td> <td>0.76 mg/dL</td> < td>0.50-1.50</td> </tr> <tr> <td>eGFR</td> <td> 76 mL/min/1.73m2</td> <td>>59</td> </tr> <tr> <td>Glucose</td> <td>88 mg/dL</td> <td>70-110</td> </ tr> <tr> <td>Osmo</td> <td>285 </td> <td>280- 295</td> </tr> <tr> <td>Potassium</td> <td>3.8 mmol/L</td> <td>3.5-5.3</td> </tr> <tr> <td> Sodium</td> <td>138 mmol/L</td> <td>134-148</td> </tr> <tr> <th colspan="10">Protime - 01/08/16 07:45</th> </ tr> <tr> <td>INR</td> <td>1.5 </td> <td>1.0- 4.0</td> </tr> <tr> <td>Protime</td> <td>17.4 Sec</td> <td>9.9-12.8</td> </tr> <tr> <th colspan="10">Protime - 01/09/16 07:03</th> </tr> <tr> < td>INR</td> <td>1.3 </td> <td>1.0-4.0</td> </tr> <tr> <td>Protime</td> <td>15.0 Sec</td> <td>9.9- 12.8</td> </tr> <tr> < colspan="10">Protime - 09:26</th> </tr> <tr> <td>INR</td> <td>1.6 </ td> <td>1.0-4.0</td> </tr> <tr> <td>Protime</td > <td>19.0 Sec</td> <td>9.9-12.8</td> </tr> <tr > < colspan="10">Protime - 01/13/16 11:20</th> </tr> < tr> <td>INR</td> <td>2.3 </td> <td>1.0-4.0</td> </tr> <tr> <td>Protime</td> <td>28.4 Sec</td> <td>9.9-12.8</td> </tr> <tr> < colspan="10"> Comprehensive Metabolic Panel - 01/16/16 10:30</th> </tr> <tr> <td>Albumin</td> <td>3.3 g/dL</td> <td>3.6-5.1</td> </tr> <tr> <td>ALP</td> <td>103 U/L</td> <td>35-130</td> </tr> <tr> <td>ALT</td> <td>20 U /L</td> <td>6-45</td> </tr> <tr> <td>Anion Gap</ td> <td>15 </td> <td>6-14</td> </tr> <tr> <td>AST</td> <td>28 U/L</td> <td>2-40</td> </tr> <tr> <td>BUN</td> <td>14 mg/dL</td> <td>5-25</ td> </tr> <tr> <td>Calcium</td> <td>8.5 mg/dL</ td> <td>8.3-10.4</td> </tr> <tr> <td>Chloride</ td> <td>104 mmol/L</td> <td>95-114</td> </tr> < tr> <td>CO2</td> <td>22 mEq/L</td> <td>22-33</td> </tr> <tr> <td>Creat</td> <td>0.68 mg/dL</td> <td>0.50-1.50</td> </tr> <tr> <td>eGFR</td> <td>86 mL/min/1.73m2</td> <td>>59</td> </tr> <tr> <td>Globulin</td> <td>3.1 g/dL</td> <td>2.3-3.5</td> </tr> <tr> <td>Glucose</td> <td>98 mg/dL</td> <td>70-110</td> </tr> <tr> <td>Osmo</td> <td>284 </td> <td>280-295</td> </tr> <tr> <td >Potassium</td> <td>4.3 mmol/L</td> <td>3.5-5.3</td> </ tr> <tr> <td>Sodium</td> <td>137 mmol/L</td> < td>134-148</td> </tr> <tr> <td>TBil</td> <td> 0.9 mg/dL</td> <td>0.2-1.2</td> </tr> <tr> <td> TP</td> <td>6.4 g/dL</td> <td>6.0-8.3</td> </tr> <tr> < colspan="10">Urinalysis - 01/16/16 10:30</th> </tr> <tr> <td>Icotest</td> <td>N/A </td> <td> Negative</td> </tr> <tr> <td>Urine Crystals</td> <td>Amorphous urates </td> <td /> </tr> <tr> < td>Urine Volume</td> <td>Urine Volume Sufficient (10mL) </td> <td /> </tr> <tr> <td>Urine-Appearance</td> <td> Clear </td> <td>Clear</td> </tr> <tr> <td>Urine- Bacteria</td> <td>1+ </td> <td> </td> </tr> <tr > <td>Urine-Bilirubin</td> <td>Negative </td> <td> Negative</td> </tr> <tr> <td>Urine-Blood</td> < td>Trace-lysed </td> <td>Negative</td> </tr> <tr> <td>Urine-Color</td> <td>Yellow </td> <td>Colorless-Lt. Yellow</td> </tr> <tr> <td>Urine-Epithelial Cells</td> <td>5-10/HPF </td> <td> </td> </tr> <tr> <td>Urine-Glucose</td> <td>Negative </td> <td>Negative</td> </tr> <tr> <td>Urine-Ketones</td> <td>Trace </ td> <td>Negative</td> </tr> <tr> <td>Urine- Leukocytes</td> <td>Negative </td> <td>Negative</td> </ tr> <tr> <td>Urine-Nitrite</td> <td>Negative </td> <td>Negative</td> </tr> <tr> <td>Urine-Other</td> <td>Culture to follow </td> <td> </td> </tr> <tr > <td>Urine-pH</td> <td>8.5 </td> <td>5-8.5</td> </tr> <tr> <td>Urine-Protein</td> <td>2+ </td> <td>Negative</td> </tr> <tr> <td>Urine-RBC</td> <td>5-10/HPF </td> <td> </td> </tr> <tr> <td>Urine-Specific [place]</td> <td>1.020 </td> <td>1.000- 1.030</td> </tr> <tr> <td>Urine-WBC</td> <td>2-5 /HPF </td> <td> </td> </tr> <tr> <td> Urobilinogen</td> <td>0.2 E.U./dL </td> <td>0.2-1.0</td> </tr> <tr> < colspan="10">Blood Culture - 01/16/16 10:30</ th> </tr> <tr> <td>PRELIM CULTURE RESULTS</td> < td>Blood Culture Negative, No Growth Day 1 </td> <td /> </tr> <tr> <td>FINAL CULTURE RESULTS</td> <td>Blood Culture Negative, No Growth Day 5 </td> <td /> </tr> <tr> <td>MEDIA PLATED</td> <td>Setup at 12:05 on 01/16/2016 Blood Culture Media Position C-[id number] </td> <td /> </tr> <tr> <td> CULTURE SOURCE</td> <td>iv start </td> <td /> </tr> <tr> <th colspan="10">Blood Culture - 01/16/16 10:30</th> < /tr> <tr> <td>PRELIM CULTURE RESULTS</td> <td>Blood Culture Negative, No Growth Day 1 </td> <td /> </tr> <tr > <td>FINAL CULTURE RESULTS</td> <td>Blood Culture Negative, No Growth Day 5 </td> <td /> </tr> <tr> <td> MEDIA PLATED</td> <td>Setup at 11:00 on 01/16/2016 Blood Culture Media Position [id number] </td> <td /> </tr> <tr> <td> CULTURE SOURCE</td> <td>[id number] arm </td> <td / > </tr> <tr> <th colspan="10">Urine Culture - 01/16/16 10 :30</th> </tr> <tr> <td>PRELIM CULTURE RESULTS</td> <td>No Growth 24 hours </td> <td /> </tr> <tr> <td>FINAL CULTURE RESULTS</td> <td>No Growth 48 hours </td> <td /> </tr> <tr> <td>MEDIA PLATED</td> <td> Setup at 12:03 on 01/16/2016 </td> <td /> </tr> <tr> <td>CULTURE SOURCE</td> <td>cath </td> <td /> </tr > <tr> <th colspan="10">Other Culture - 01/16/16 14:53</th> </tr> <tr> <td>PRELIM CULTURE RESULTS</td> <td> Scant Gram Positive Further Testing [id number] to Joey Yuen for Further workup </td> <td /> </tr> <tr> <td> FINAL CULTURE RESULTS</td> <td>Scant Gram Positive (diptheroids) [id number] skin [id number] further workup </td> <td /> </tr> <tr> <td>MEDIA PLATED</td> <td>Setup at 15:02 on 01/16/2016 </td> <td /> </tr> <tr> <th colspan ="10">Protime - 01/17/16 05:20</th> </tr> <tr> <td>INR</ td> <td>3.0 </td> <td>1.0-4.0</td> </tr> <tr> <td>Protime</td> <td>37.3 Sec</td> <td>9.9-12.8</td> </tr> <tr> < colspan="10">Protime - 01/18/16 07:00</th > </tr> <tr> <td>INR</td> <td>2.5 </td> <td>1.0-4.0</td> </tr> <tr> <td>Protime</td> < td>30.6 Sec</td> <td>9.9-12.8</td> </tr> <tr> < colspan="10">Protime - 01/19/16 07:18</th> </tr> <tr> <td>INR</td> <td>1.8 </td> <td>1.0-4.0</td> </tr> <tr> <td>Protime</td> <td>21.9 Sec</td> <td>9.9- 12.8</td> </tr> <tr> < colspan="10">BMP - 01/19/16 07: 18</th> </tr> <tr> <td>Anion Gap</td> <td>15 </ td> <td>6-14</td> </tr> <tr> <td>BUN</td> <td>22 mg/dL</td> <td>5-25</td> </tr> <tr> < td>Calcium</td> <td>7.9 mg/dL</td> <td>8.3-10.4</td> </ tr> <tr> <td>Chloride</td> <td>104 mmol/L</td> <td>95-114</td> </tr> <tr> <td>CO2</td> <td> 25 mEq/L</td> <td>22-33</td> </tr> <tr> <td> Creat</td> <td>0.66 mg/dL</td> <td>0.50-1.50</td> </tr > <tr> <td>eGFR</td> <td>89 mL/min/1.73m2</td> <td>>59</td> </tr> <tr> <td>Glucose</td> < td>110 mg/dL</td> <td>70-110</td> </tr> <tr> <td >Osmo</td> <td>293 </td> <td>280-295</td> </tr> <tr> <td>Potassium</td> <td>4.0 mmol/L</td> <td>3.5- 5.3</td> </tr> <tr> <td>Sodium</td> <td>140 mmol /L</td> <td>134-148</td> </tr> <tr> < colspan= "10">Protime - 01/20/16 09:35</th> </tr> <tr> <td>INR</ td> <td>1.7 </td> <td>1.0-4.0</td> </tr> <tr> <td>Protime</td> <td>19.9 Sec</td> <td>9.9-12.8</td> </tr> <tr> < colspan="10">Protime - 01/21/16 07:00</th > </tr> <tr> <td>INR</td> <td>1.7 </td> <td>1.0-4.0</td> </tr> <tr> <td>Protime</td> < td>20.4 Sec</td> <td>9.9-12.8</td> </tr> <tr> < colspan="10">Protime - 01/23/16 11:00</th> </tr> <tr> <td>INR</td> <td>2.6 </td> <td>1.0-4.0</td> </tr> <tr> <td>Protime</td> <td>31.8 Sec</td> <td>9.9- 12.8</td> </tr> <tr> <th colspan="10">Protime - 11:00</th> </tr> <tr> <td>INR</td> <td>2.5 </ td> <td>1.0-4.0</td> </tr> <tr> <td>Protime</td > <td>30.5 Sec</td> <td>9.9-12.8</td> </tr> <tr > <th colspan="10">Influenza - 01/31/16 11:37</th> </tr> <tr> <td>Influenza</td> <td>NEGATIVE FOR A and B </td> <td>0.00-0.00</td> </tr> <tr> <th colspan="10"> Urinalysis - 01/31/16 11:37</th> </tr> <tr> <td>Icotest</ td> <td>N/A </td> <td>Negative</td> </tr> <tr> <td>Urine Volume</td> <td>Urine Volume Sufficient (10mL) </td > <td /> </tr> <tr> <td>Urine-Appearance</td> <td>Clear </td> <td>Clear</td> </tr> <tr> <td>Urine-Bilirubin</td> <td>Negative </td> <td>Negative</ td> </tr> <tr> <td>Urine-Blood</td> <td> Negative </td> <td>Negative</td> </tr> <tr> <td> Urine-Color</td> <td>Yellow </td> <td>Colorless-Lt. Yellow</td > </tr> <tr> <td>Urine-Glucose</td> <td> Negative </td> <td>Negative</td> </tr> <tr> <td> Urine-Ketones</td> <td>Negative </td> <td>Negative</td> </tr> <tr> <td>Urine-Leukocytes</td> <td>Negative </ td> <td>Negative</td> </tr> <tr> <td>Urine-Mucus </td> <td>1+ </td> <td> </td> </tr> <tr> <td>Urine-Nitrite</td> <td>Negative </td> <td>Negative</td > </tr> <tr> <td>Urine-Other</td> <td>Culture to follow due to cath specimen </td> <td> </td> </tr> <tr > <td>Urine-pH</td> <td>7.5 </td> <td>5-8.5</td> </tr> <tr> <td>Urine-Protein</td> <td>Trace </td> <td>Negative</td> </tr> <tr> <td>Urine-RBC</td> <td>Rare/HPF </td> <td> </td> </tr> <tr> <td>Urine-Specific [place]</td> <td>1.015 </td> <td>1.000- 1.030</td> </tr> <tr> <td>Urine-WBC</td> <td> Rare/HPF </td> <td> </td> </tr> <tr> <td> Urobilinogen</td> <td>0.2 </td> <td>0.2-1.0</td> </tr> <tr> <th colspan="10">Blood Culture - 01/31/16 11:37</th> </tr> <tr> <td>PRELIM CULTURE RESULTS</td> <td> Blood Culture Negative, No Growth Day 1 </td> <td /> </tr> <tr> <td>FINAL CULTURE RESULTS</td> <td>Blood Culture Negative, No Growth Day 5 </td> <td /> </tr> <tr> <td>MEDIA PLATED</td> <td>Setup at 12:28 on 01/31/2016Blood Culture Media Position B38 </td> <td /> </tr> <tr> <td> CULTURE SOURCE</td> <td>lt hand </td> <td /> </tr> <tr> <th colspan="10">Comprehensive Metabolic Panel - 01/31/16 12: 00</th> </tr> <tr> <td>Albumin</td> <td>3.1 g/dL </td> <td>3.6-5.1</td> </tr> <tr> <td>ALP</td> <td>83 U/L</td> <td>35-130</td> </tr> <tr> <td>ALT</td> <td>12 U/L</td> <td>6-45</td> </tr> <tr> <td>Anion Gap</td> <td>14 </td> <td>6-14< /td> </tr> <tr> <td>AST</td> <td>17 U/L</td> <td>2-40</td> </tr> <tr> <td>BUN</td> <td >15 mg/dL</td> <td>5-25</td> </tr> <tr> <td> Calcium</td> <td>9.0 mg/dL</td> <td>8.3-10.4</td> </tr > <tr> <td>Chloride</td> <td>103 mmol/L</td> < td>95-114</td> </tr> <tr> <td>CO2</td> <td>27 mEq/L</td> <td>22-33</td> </tr> <tr> <td>Creat</ td> <td>0.70 mg/dL</td> <td>0.50-1.50</td> </tr> <tr> <td>eGFR</td> <td>83 mL/min/1.73m2</td> <td>& gt;59</td> </tr> <tr> <td>Globulin</td> <td>2.8 g/dL</td> <td>2.3-3.5</td> </tr> <tr> <td> Glucose</td> <td>84 mg/dL</td> <td>70-110</td> </tr> <tr> <td>Osmo</td> <td>289 </td> <td>280-295</ td> </tr> <tr> <td>Potassium</td> <td>3.9 mmol/L </td> <td>3.5-5.3</td> </tr> <tr> <td>Sodium</td > <td>140 mmol/L</td> <td>134-148</td> </tr> <tr > <td>TBil</td> <td>0.8 mg/dL</td> <td>0.2-1.2</td> </tr> <tr> <td>TP</td> <td>5.9 g/dL</td> <td>6.0-8.3</td> </tr> <tr> <th colspan="10">Blood Culture - 01/31/16 12:00</th> </tr> <tr> <td>PRELIM CULTURE RESULTS</td> <td>Blood Culture Negative, No Growth Day 1 </td> <td /> </tr> <tr> <td>FINAL CULTURE RESULTS</td > <td>Blood Culture Negative, No Growth Day 5 </td> <td /> </tr> <tr> <td>MEDIA PLATED</td> <td>Setup at 12: 29 on 01/31/2016Blood Culture Media Position C46 </td> <td /> </ tr> <tr> <td>CULTURE SOURCE</td> <td>lt ac </td> <td /> </tr> <tr> < colspan="10">Urine Culture - 15:03</th> </tr> <tr> <td>FINAL CULTURE RESULTS</ td> <td>No Growth 48 hours </td> <td /> </tr> < tr> <td>MEDIA PLATED</td> <td>Setup at 16:05 on 01/31/2016 </ td> <td /> </tr> <tr> <td>CULTURE SOURCE</td> <td>cath urine </td> <td /> </tr> <tr> < colspan="10">Protime - 02/02/16 10:50</th> </tr> <tr> <td>INR</td> <td>2.6 </td> <td>1.0-4.0</td> </tr> <tr> <td>Protime</td> <td>31.7 Sec</td> <td>9.9- 12.8</td> </tr> <tr> < colspan="10">Protime - 11:15</th> </tr> <tr> <td>INR</td> <td>2.0 </ td> <td>1.0-4.0</td> </tr> <tr> <td>Protime</td > <td>24.8 Sec</td> <td>9.9-12.8</td> </tr> <tr > < colspan="10">Protime - 02/14/16 13:05</th> </tr> < tr> <td>INR</td> <td>3.5 </td> <td>1.0-4.0</td> </tr> <tr> <td>Protime</td> <td>43.2 Sec</td> <td>9.9-12.8</td> </tr> <tr> < colspan="10"> Protime - 02/21/16 11:21</th> </tr> <tr> <td>INR</td> <td>1.7 </td> <td>1.0-4.0</td> </tr> <tr> <td>Protime</td> <td>19.9 Sec</td> <td>9.9-12.8</td> </tr> <tr> <th colspan="10">Protime - 02/28/16 13:55</th> </tr> <tr> <td>INR</td> <td>2.6 </td> <td >1.0-4.0</td> </tr> <tr> <td>Protime</td> <td> 32.4 Sec</td> <td>9.9-12.8</td> </tr> <tr> < colspan="10">Other Culture - 03/08/16 12:20</th> </tr> <tr> <td>PRELIM CULTURE RESULTS</td> <td>Moderate [id number] further workup </td> <td /> </tr> <tr> <td> FINAL CULTURE RESULTS</td> <td>Moderate Dipthroids No Further Workup done </td> <td /> </tr> <tr> <td>MEDIA PLATED</ td> <td>Setup at 13:20 on 03/08/[id number] lower medial calf </td> <td /> </tr> <tr> <th colspan="10">Protime - 11:10</th> </tr> <tr> <td>INR</td> <td> 1.8 </td> <td>1.0-4.0</td> </tr> <tr> <td> Protime</td> <td>22.1 Sec</td> <td>9.9-12.8</td> </tr> <tr> <th colspan="10">Protime - 03/13/16 11:45</th> </ tr> <tr> <td>INR</td> <td>1.5 </td> <td>1.0- 4.0</td> </tr> <tr> <td>Protime</td> <td>18.2 Sec</td> <td>9.9-12.8</td> </tr> <tr> < colspan="10">Protime - 03/15/16 12:15</th> </tr> <tr> < td>INR</td> <td>2.5 </td> <td>1.0-4.0</td> </tr> <tr> <td>Protime</td> <td>30.0 Sec</td> <td>9.9- 12.8</td> </tr> <tr> < colspan="10">Protime - 10:45</th> </tr> <tr> <td>INR</td> <td>2.5 </ td> <td>1.0-4.0</td> </tr> <tr> <td>Protime</td > <td>30.0 Sec</td> <td>9.9-12.8</td> </tr> <tr > < colspan="10">Protime - 03/25/16 12:50</th> </tr> < tr> <td>INR</td> <td>2.1 </td> <td>1.0-4.0</td> </tr> <tr> <td>Protime</td> <td>26.0 Sec</td> <td>9.9-12.8</td> </tr> <tr> < colspan="10">BMP - 04/01/16 10:48</th> </tr> <tr> <td>Anion Gap</td> <td>18 </td> <td>6-14</td> </tr> <tr> <td>BUN </td> <td>23 mg/dL</td> <td>5-25</td> </tr> <tr > <td>Calcium</td> <td>9.1 mg/dL</td> <td>8.3-10.4</ td> </tr> <tr> <td>Chloride</td> <td>101 mmol/L< /td> <td>95-114</td> </tr> <tr> <td>CO2</td> <td>28 mEq/L</td> <td>22-33</td> </tr> <tr> <td>Creat</td> <td>0.74 mg/dL</td> <td>0.50-1.50</td> </tr> <tr> <td>eGFR</td> <td>78 mL/min/1.73m2</td> <td>>59</td> </tr> <tr> <td>Glucose</td> <td>78 mg/dL</td> <td>70-110</td> </tr> <tr> <td>Osmo</td> <td>298 </td> <td>280-295</td> </tr > <tr> <td>Potassium</td> <td>3.9 mmol/L</td> <td>3.5-5.3</td> </tr> <tr> <td>Sodium</td> <td> 143 mmol/L</td> <td>134-148</td> </tr> <tr> <th colspan="10">Protime - 04/08/16 15:05</th> </tr> <tr> < td>INR</td> <td>2.3 </td> <td>1.0-4.0</td> </tr> <tr> <td>Protime</td> <td>27.8 Sec</td> <td>9.9- 12.8</td> </tr> <tr> <th colspan="10">Protime - 12:01</th> </tr> <tr> <td>INR</td> <td>2.0 </ td> <td>1.0-4.0</td> </tr> <tr> <td>Protime</td > <td>24.6 Sec</td> <td>9.9-12.8</td> </tr> <tr > <th colspan="10">BMP - 04/29/16 12:00</th> </tr> <tr> <td>Anion Gap</td> <td>17 </td> <td>6-14</td> </tr> <tr> <td>BUN</td> <td>18 mg/dL</td> <td> 5-25</td> </tr> <tr> <td>Calcium</td> <td>9.0 mg /dL</td> <td>8.3-10.4</td> </tr> <tr> <td> Chloride</td> <td>99 mmol/L</td> <td>95-114</td> </tr> <tr> <td>CO2</td> <td>28 mEq/L</td> <td>22-33 </td> </tr> <tr> <td>Creat</td> <td>0.78 mg/dL</ td> <td>0.50-1.50</td> </tr> <tr> <td>eGFR</td> <td>73 mL/min/1.73m2</td> <td>>59</td> </tr> <tr> <td>Glucose</td> <td>83 mg/dL</td> <td>70-110< /td> </tr> <tr> <td>Osmo</td> <td>290 </td> <td>280-295</td> </tr> <tr> <td>Potassium</td> <td>3.6 mmol/L</td> <td>3.5-5.3</td> </tr> <tr> <td>Sodium</td> <td>140 mmol/L</td> <td>134-148</td> </tr> <tr> <th colspan="10">Comprehensive Metabolic Panel - 04/29/16 23:59</th> </tr> <tr> <td>Albumin</td> <td>3.8 g/dL</td> <td>3.6-5.1</td> </tr> <tr> <td>ALP</td> <td>93 U/L</td> <td>35-130</td> </tr> <tr> <td>ALT</td> <td>27 U/L</td> <td>6-45</td > </tr> <tr> <td>Anion Gap</td> <td>15 </td> <td>6-14</td> </tr> <tr> <td>AST</td> <td >28 U/L</td> <td>2-40</td> </tr> <tr> <td>BUN</ td> <td>24 mg/dL</td> <td>5-25</td> </tr> <tr> <td>Calcium</td> <td>8.7 mg/dL</td> <td>8.3-10.4</td > </tr> <tr> <td>Chloride</td> <td>99 mmol/L</td > <td>95-114</td> </tr> <tr> <td>CO2</td> <td>30 mEq/L</td> <td>22-33</td> </tr> <tr> <td>Creat</td> <td>1.27 mg/dL</td> <td>0.50-1.50</td> < /tr> <tr> <td>eGFR</td> <td>42 mL/min/1.73m2</td> <td>>59</td> </tr> <tr> <td>Globulin</td> <td>3.1 g/dL</td> <td>2.3-3.5</td> </tr> <tr> <td>Glucose</td> <td>103 mg/dL</td> <td>70-110</td> < /tr> <tr> <td>Osmo</td> <td>293 </td> <td>280- 295</td> </tr> <tr> <td>Potassium</td> <td>3.5 mmol/L</td> <td>3.5-5.3</td> </tr> <tr> <td> Sodium</td> <td>140 mmol/L</td> <td>134-148</td> </tr> <tr> <td>TBil</td> <td>1.0 mg/dL</td> <td>0.2 -1.2</td> </tr> <tr> <td>TP</td> <td>6.9 g/dL</ td> <td>6.0-8.3</td> </tr> <tr> <th colspan="10 ">Influenza - 04/30/16 00:00</th> </tr> <tr> <td> Influenza</td> <td>NEGATIVE FOR A and B </td> <td>0.00-0.00</ td> </tr> <tr> <th colspan="10">Blood Culture - 04/30/16 00:10</th> </tr> <tr> <td>PRELIM CULTURE RESULTS</td> <td>Blood Culture Negative, No Growth Day 1 </td> <td /> </tr> <tr> <td>FINAL CULTURE RESULTS</td> <td>Blood Culture Negative, No Growth Day 5 </td> <td /> </tr> <tr > <td>MEDIA PLATED</td> <td>Blood Culture Media Position C49 < /td> <td /> </tr> <tr> <td>CULTURE SOURCE</td> <td>right [id number]\\ </td> <td /> </tr> <tr> <th colspan="10">Blood Culture - 04/30/16 00:10</th> </tr> < tr> <td>PRELIM CULTURE RESULTS</td> <td>Blood Culture Negative , No Growth Day 1 </td> <td /> </tr> <tr> <td> FINAL CULTURE RESULTS</td> <td>Blood Culture Negative, No Growth Day 5 </td> <td /> </tr> <tr> <td>MEDIA PLATED</td> <td>Blood Culture Media Position C44 </td> <td /> </tr> <tr> <td>CULTURE SOURCE</td> <td>left arm </td> <td /> </tr> <tr> <th colspan="10">Protime - 05:27</th> </tr> <tr> <td>INR</td> <td>3.3 </ td> <td>1.0-4.0</td> </tr> <tr> <td>Protime</td > <td>40.4 Sec</td> <td>9.9-12.8</td> </tr> <tr > <th colspan="10">MRSA Screen - 04/30/16 05:54</th> </tr> <tr> <td>FINAL CULTURE RESULTS</td> <td>MRSA Negative Nasal Culture </td> <td /> </tr> <tr> <td>MEDIA PLATED</td> <td>Setup at 06:23 on 04/30/2016 </td> <td /> </tr> <tr> <th colspan="10">Protime - 05/01/16 06:51</th> </tr> <tr> <td>INR</td> <td>2.3 </td> < td>1.0-4.0</td> </tr> <tr> <td>Protime</td> <td> 28.4 Sec</td> <td>9.9-12.8</td> </tr> <tr> < colspan="10">Protime - 05/02/16 07:35</th> </tr> <tr> < td>INR</td> <td>2.4 </td> <td>1.0-4.0</td> </tr> <tr> <td>Protime</td> <td>29.0 Sec</td> <td>9.9- 12.8</td> </tr> <tr> < colspan="10">Urinalysis - 16:49</th> </tr> <tr> <td>Icotest</td> <td>N/ A </td> <td>Negative</td> </tr> <tr> <td>Urine Volume</td> <td>Urine Volume Sufficient (10mL) </td> <td /> </tr> <tr> <td>Urine-Appearance</td> <td>Clear </ td> <td>Clear</td> </tr> <tr> <td>Urine-Bacteria </td> <td>Trace </td> <td> </td> </tr> <tr> <td>Urine-Bilirubin</td> <td>Negative </td> <td>Negative </td> </tr> <tr> <td>Urine-Blood</td> <td>Trace- intact </td> <td>Negative</td> </tr> <tr> <td> Urine-Color</td> <td>Yellow </td> <td>Colorless-Lt. Yellow</td > </tr> <tr> <td>Urine-Epithelial Cells</td> <td >0-5/HPF </td> <td> </td> </tr> <tr> <td>Urine- Glucose</td> <td>Negative </td> <td>Negative</td> </tr > <tr> <td>Urine-Ketones</td> <td>Negative </td> <td>Negative</td> </tr> <tr> <td>Urine-Leukocytes</td > <td>Negative </td> <td>Negative</td> </tr> <tr > <td>Urine-Nitrite</td> <td>Negative </td> <td> Negative</td> </tr> <tr> <td>Urine-Other</td> < td>Culture to follow </td> <td> </td> </tr> <tr> <td>Urine-pH</td> <td>7.0 </td> <td>5-8.5</td> </tr> <tr> <td>Urine-Protein</td> <td>Negative </td> <td>Negative</td> </tr> <tr> <td>Urine-RBC</td> <td>0-2/HPF </td> <td> </td> </tr> <tr> <td> Urine-Specific [place]</td> <td>1.010 </td> <td>1.000-1.030</ td> </tr> <tr> <td>Urine-WBC</td> <td>Few/HPF </ td> <td> </td> </tr> <tr> <td>Urobilinogen</td> <td>0.2 E.U./dL </td> <td>0.2-1.0</td> </tr> < tr> <th colspan="10">Urine Culture - 05/02/16 16:49</th> </tr> <tr> <td>PRELIM CULTURE RESULTS</td> <td>No Growth 24 hours </td> <td /> </tr> <tr> <td>FINAL CULTURE RESULTS</td> <td>No Growth 48 [id number] Further Workup done </td> <td /> </tr> <tr> <td>MEDIA PLATED</td> <td>Setup at 17:25 on 05/02/2016 </td> <td /> </tr> <tr> <td>CULTURE SOURCE</td> <td>void </td> <td /> </tr> <tr> <th colspan="10">Comprehensive Metabolic Panel - 06:39</th> </tr> <tr> <td>Albumin</td> <td >3.5 g/dL</td> <td>3.6-5.1</td> </tr> <tr> <td> ALP</td> <td>88 U/L</td> <td>35-130</td> </tr> < tr> <td>ALT</td> <td>19 U/L</td> <td>6-45</td> </tr> <tr> <td>Anion Gap</td> <td>14 </td> < td>6-14</td> </tr> <tr> <td>AST</td> <td>16 U/L< /td> <td>2-40</td> </tr> <tr> <td>BUN</td> <td>16 mg/dL</td> <td>5-25</td> </tr> <tr> <td>Calcium</td> <td>9.0 mg/dL</td> <td>8.3-10.4</td> < /tr> <tr> <td>Chloride</td> <td>102 mmol/L</td> <td>95-114</td> </tr> <tr> <td>CO2</td> <td> 31 mEq/L</td> <td>22-33</td> </tr> <tr> <td> Creat</td> <td>0.77 mg/dL</td> <td>0.50-1.50</td> </tr > <tr> <td>eGFR</td> <td>75 mL/min/1.73m2</td> <td>>59</td> </tr> <tr> <td>Globulin</td> < td>2.8 g/dL</td> <td>2.3-3.5</td> </tr> <tr> <td >Glucose</td> <td>84 mg/dL</td> <td>70-110</td> </tr> <tr> <td>Osmo</td> <td>296 </td> <td>280-295</ td> </tr> <tr> <td>Potassium</td> <td>4.1 mmol/L </td> <td>3.5-5.3</td> </tr> <tr> <td>Sodium</td > <td>143 mmol/L</td> <td>134-148</td> </tr> <tr > <td>TBil</td> <td>0.4 mg/dL</td> <td>0.2-1.2</td> </tr> <tr> <td>TP</td> <td>6.3 g/dL</td> <td>6.0-8.3</td> </tr> <tr> <th colspan="10">C- Reactive Protein - 05/03/16 06:39</th> </tr> <tr> <td>C- Reactive Protein</td> <td>14.10 mg/dL</td> <td>0.00-0.50</td> </tr> <tr> <th colspan="10">ESTRELLITA w/Reflex - 05/03/16 06: 39</th> </tr> <tr> <td>ESTRELLITA DIRECT</td> <td> NEGATIVE </td> <td>NEGATIVE</td> </tr> <tr> <th colspan="10">BMP - 05/04/16 07:00</th> </tr> <tr> <td> Anion Gap</td> <td>17 </td> <td>6-14</td> </tr> <tr> <td>BUN</td> <td>16 mg/dL</td> <td>5-25</td> </tr> <tr> <td>Calcium</td> <td>8.9 mg/dL</td> <td>8.3-10.4</td> </tr> <tr> <td>Chloride</td> <td>100 mmol/L</td> <td>95-114</td> </tr> <tr> <td>CO2</td> <td>28 mEq/L</td> <td>22-33</td> </ tr> <tr> <td>Creat</td> <td>0.72 mg/dL</td> < td>0.50-1.50</td> </tr> <tr> <td>eGFR</td> <td> 81 mL/min/1.73m2</td> <td>>59</td> </tr> <tr> <td>Glucose</td> <td>89 mg/dL</td> <td>70-110</td> </ tr> <tr> <td>Osmo</td> <td>292 </td> <td>280- 295</td> </tr> <tr> <td>Potassium</td> <td>4.4 mmol/L</td> <td>3.5-5.3</td> </tr> <tr> <td> Sodium</td> <td>141 mmol/L</td> <td>134-148</td> </tr> <tr> <th colspan="10">Protime - 05/10/16 10:25</th> </ tr> <tr> <td>INR</td> <td>1.9 </td> <td>1.0- 4.0</td> </tr> <tr> <td>Protime</td> <td>22.9 Sec</td> <td>9.9-12.8</td> </tr> <tr> <th colspan="10">Protime - 05/13/16 11:05</th> </tr> <tr> < td>INR</td> <td>2.0 </td> <td>1.0-4.0</td> </tr> <tr> <td>Protime</td> <td>24.0 Sec</td> <td>9.9- 12.8</td> </tr> <tr> < colspan="10">BMP - 05/15/16 10: 31</th> </tr> <tr> <td>Anion Gap</td> <td>16 </ td> <td>6-14</td> </tr> <tr> <td>BUN</td> <td>12 mg/dL</td> <td>5-25</td> </tr> <tr> < td>Calcium</td> <td>8.9 mg/dL</td> <td>8.3-10.4</td> </ tr> <tr> <td>Chloride</td> <td>105 mmol/L</td> <td>95-114</td> </tr> <tr> <td>CO2</td> <td> 27 mEq/L</td> <td>22-33</td> </tr> <tr> <td> Creat</td> <td>0.71 mg/dL</td> <td>0.50-1.50</td> </tr > <tr> <td>eGFR</td> <td>82 mL/min/1.73m2</td> <td>>59</td> </tr> <tr> <td>Glucose</td> < td>84 mg/dL</td> <td>70-110</td> </tr> <tr> <td> Osmo</td> <td>296 </td> <td>280-295</td> </tr> < tr> <td>Potassium</td> <td>4.0 mmol/L</td> <td>3.5- 5.3</td> </tr> <tr> <td>Sodium</td> <td>144 mmol /L</td> <td>134-148</td> </tr> <tr> < colspan= "10">Protime - 05/27/16 11:00</th> </tr> <tr> <td>INR</ td> <td>2.3 </td> <td>1.0-4.0</td> </tr> <tr> <td>Protime</td> <td>27.6 Sec</td> <td>9.9-12.8</td> </tr> <tr> <th colspan="10">EKG - 06/14/16 11:19</th> </tr> <tr> <td>EKG</td> <td>Complete </td> <td /> </tr> <tr> <th colspan="10">PTT - 06/20/16 14 :25</th> </tr> <tr> <td>PTT</td> <td>23.3 Sec</ td> <td>26.0-38.0</td> </tr> <tr> <th colspan= "10">Urine Culture - 06/20/16 14:25</th> </tr> <tr> <td> PRELIM CULTURE RESULTS</td> <td>>100,000 Group B strep - [place] / ID to follow </td> <td /> </tr> <tr> <td>MEDIA PLATED</td> <td>Setup at 14:28 06/20/2016 </td> <td /> </tr> <tr> <td>CULTURE SOURCE</td> <td>void </td> <td /> </tr> <tr> < colspan="10">Sensi - 06/20/16 14:25</th> </tr> <tr> <td>FINAL CULTURE RESULTS</td> <td>Streptococcus agalactiae (Group B) (Isolate 1) </td> <td /> </tr> <tr> <td>Ampicillin/Sulbactam</td> <td>&lt ;=8/4 </td> <td /> </tr> <tr> <td>Ampicillin</td > <td><=2 </td> <td /> </tr> <tr> < td>Amoxicillin/K Clavulanate</td> <td><=4/2 </td> <td /> </tr> <tr> <td>Ceftriaxone</td> <td><=8 </td> <td /> </tr> <tr> <td>Clindamycin</td> <td><=0.5 </td> <td /> </tr> <tr> <td> Cefoxitin Screen</td> <td>N/R </td> <td /> </tr> <tr> <td>Ciprofloxacin</td> <td>2 </td> <td /> </tr> <tr> <td>Daptomycin</td> <td><=0.5 </td> <td /> </tr> <tr> <td>Erythromycin</td> <td><=0.5 </td> <td /> </tr> <tr> <td> Nitrofurantoin</td> <td><=32 </td> <td /> </tr> <tr> <td>Gentamicin</td> <td>N/R </td> <td /> </tr> <tr> <td>Gentamicin Synergy Screen</td> <td> N/R </td> <td /> </tr> <tr> <td>Inducible Clindamycin</td> <td>N/R </td> <td /> </tr> <tr > <td>Levofloxacin</td> <td>2 </td> <td /> </ tr> <tr> <td>Linezolid</td> <td><=1 </td> < td /> </tr> <tr> <td>Moxifloxacin</td> <td><= 0.5 </td> <td /> </tr> <tr> <td>Oxacillin</td> <td><=0.25 </td> <td /> </tr> <tr> < td>Penicillin</td> <td><=0.03 </td> <td /> </tr> <tr> <td>Rifampin</td> <td><=1 </td> <td /> </tr> <tr> <td>Streptomycin Synergy</td> <td>N/ R </td> <td /> </tr> <tr> <td>Synercid</td> <td><=0.5 </td> <td /> </tr> <tr> <td> Trimethoprim/ Sulfamethoxazole</td> <td><=0.5/9.5 </td> < td /> </tr> <tr> <td>Tetracycline</td> <td>> 8 </td> <td /> </tr> <tr> <td>Vancomycin</td> <td>0.5 </td> <td /> </tr> <tr> <th colspan="10">MRSA Screen - 06/20/16 14:25</th> </tr> <tr> <td>FINAL CULTURE RESULTS</td> <td>MRSA Negative Nasal Culture </td> <td /> </tr> <tr> <td>MEDIA PLATED</td> <td>Setup at 15:12 on 06/20/2016 </td> <td /> </tr> <tr > <th colspan="10">Protime - 06/27/16 15:32</th> </tr> < tr> <td>INR</td> <td>3.5 </td> <td>1.0-4.0</td> </tr> <tr> <td>Protime</td> <td>43.2 Sec</td> <td>9.9-12.8</td> </tr> <tr> <th colspan="10"> Protime - 07/01/16 11:50</th> </tr> <tr> <td>INR</td> <td>2.8 </td> <td>1.0-4.0</td> </tr> <tr> <td>Protime</td> <td>34.5 Sec</td> <td>9.9-12.8</td> </tr> <tr> < colspan="10">Protime - 07/04/16 09:21</th> </tr> <tr> <td>INR</td> <td>2.1 </td> <td >1.0-4.0</td> </tr> <tr> <td>Protime</td> <td> 25.2 Sec</td> <td>9.9-12.8</td> </tr> <tr> < colspan="10">BNP - 07/06/16 20:25</th> </tr> <tr> <td>BNP </td> <td>10.10 pg/ml</td> <td>0.00-100.00</td> </tr> <tr> < colspan="10">Protime - 07/10/16 15:50</th> </tr > <tr> <td>INR</td> <td>3.2 </td> <td>1.0-4.0< /td> </tr> <tr> <td>Protime</td> <td>39.4 Sec</ td> <td>9.9-12.8</td> </tr> <tr> < colspan="10 ">Protime - 07/15/16 16:11</th> </tr> <tr> <td>INR</td> <td>1.1 </td> <td>1.0-4.0</td> </tr> <tr> <td>Protime</td> <td>13.3 Sec</td> <td>9.9-12.8</td> </tr> <tr> < colspan="10">HEMOGLOBIN - 07/17/16 11:44</th > </tr> <tr> <td>MEAN CELL VOLUME</td> <td>96.9 fl</td> <td>80.0-100.0</td> </tr> <tr> <td> HEMOGLOBIN</td> <td>11.7 gm/dL</td> <td>12.0-16.0</td> </tr> <tr> <th colspan="10">PROTHROMBIN TIME WITH INR - 11:44</th> </tr> <tr> <td>INTERNATIONAL NORMAL RATIO</ td> <td>1.1 </td> <td>0.9-1.1</td> </tr> <tr> <td>PROTHROMBIN TIME</td> <td>12.3 sec</td> <td>10.0- 12.8</td> </tr> <tr> <th colspan="10">METABOLIC PANEL, BASIC - 07/17/16 11:44</th> </tr> <tr> <td>POTASSIUM</td > <td>3.6 mmol/L</td> <td>3.5-5.3</td> </tr> <tr > <td>EST GFR (MDRD)</td> <td>> 60 mL/min</td> <td >> 59</td> </tr> <tr> <td>ANION GAP</td> <td> 7 mmol/L</td> <td>5-15</td> </tr> <tr> <td>EST CrCl (CG)</td> <td>> 60 mL/min</td> <td>> 59</td> </tr> <tr> <td>GLUCOSE</td> <td>85 mg/dL</td> <td>70-99</td> </tr> <tr> <td>CALCIUM</td> < td>9.1 mg/dL</td> <td>8.5-10.1</td> </tr> <tr> < td>BLOOD UREA NITROGEN</td> <td>17 mg/dL</td> <td>7-20</td> </tr> <tr> <td>CREATININE</td> <td>0.7 mg/dL</td > <td>0.6-1.0</td> </tr> <tr> <td>SODIUM</td> <td>147 mmol/L</td> <td>135-148</td> </tr> <tr> <td>CHLORIDE</td> <td>111 mmol/L</td> <td>98-110</td > </tr> <tr> <td>CARBON DIOXIDE</td> <td>29 mmol /L</td> <td>21-32</td> </tr> <tr> < colspan= "10">PROTHROMBIN TIME WITH INR - 07/17/16 16:42</th> </tr> <tr> <td>INTERNATIONAL NORMAL RATIO</td> <td>1.1 </td> <td> 0.9-1.1</td> </tr> <tr> <td>PROTHROMBIN TIME</td> <td>12.6 sec</td> <td>10.0-12.8</td> </tr> <tr> < colspan="10">PROTHROMBIN TIME WITH INR - 07/18/16 05:11</th> </tr > <tr> <td>INTERNATIONAL NORMAL RATIO</td> <td>1.1 </td > <td>0.9-1.1</td> </tr> <tr> <td>PROTHROMBIN TIME</td> <td>13.0 sec</td> <td>10.0-12.8</td> </tr> <tr> < colspan="10">CBC - 07/18/16 05:11</th> </tr> <tr> <td>MEAN CELL HGB</td> <td>29.3 pg</td> <td> 27.0-33.0</td> </tr> <tr> <td>MEAN CELL HGB CONCENTRATION </td> <td>30.4 g/dL</td> <td>32.0-37.0</td> </tr> <tr> <td>MEAN CELL VOLUME</td> <td>96.4 fl</td> < td>80.0-100.0</td> </tr> <tr> <td>RED BLOOD CELL</td> <td>3.58 m/cumm</td> <td>4.00-6.00</td> </tr> <tr > <td>RED CELL DISTRIBUTION WIDTH</td> <td>16.3 %</td> <td>11.0-15.6</td> </tr> <tr> <td>WHITE BLOOD CELL </td> <td>5.9 k/cumm</td> <td>5.0-10.0</td> </tr> <tr> <td>HEMOGLOBIN</td> <td>10.5 gm/dL</td> <td> 12.0-16.0</td> </tr> <tr> <td>HEMATOCRIT</td> < td>34.5 %</td> <td>37.0-47.0</td> </tr> <tr> <td>PLATELET COUNT</td> <td>142 k/cumm</td> <td>150-400</td > </tr> <tr> <th colspan="10">METABOLIC PANEL, COMPREHN - 07/18/16 05:11</th> </tr> <tr> <td>POTASSIUM</td> <td>3.8 mmol/L</td> <td>3.5-5.3</td> </tr> <tr> <td>EST GFR (MDRD)</td> <td>> 60 mL/min</td> <td>&gt ; 59</td> </tr> <tr> <td>ANION GAP</td> <td>7 mmol/L</td> <td>5-15</td> </tr> <tr> <td>EST CrCl (CG)</td> <td>> 60 mL/min</td> <td>> 59</td> </tr> <tr> <td>GLUCOSE</td> <td>79 mg/dL</td> <td>70-99</td> </tr> <tr> <td>CALCIUM</td> < td>8.3 mg/dL</td> <td>8.5-10.1</td> </tr> <tr> < td>BLOOD UREA NITROGEN</td> <td>16 mg/dL</td> <td>7-20</td> </tr> <tr> <td>CREATININE</td> <td>0.8 mg/dL</td > <td>0.6-1.0</td> </tr> <tr> <td>SODIUM</td> <td>147 mmol/L</td> <td>135-148</td> </tr> <tr> <td>CHLORIDE</td> <td>111 mmol/L</td> <td>98-110</td > </tr> <tr> <td>AST/SGOT</td> <td>26 Units/L</ td> <td>10-37</td> </tr> <tr> <td>ALT/SGPT</td> <td>22 Units/L</td> <td>< 66</td> </tr> <tr > <td>CARBON DIOXIDE</td> <td>29 mmol/L</td> <td>21- 32</td> </tr> <tr> <td>TOTAL PROTEIN</td> <td> 5.4 gm/dL</td> <td>6.4-8.2</td> </tr> <tr> <td> ALBUMIN</td> <td>2.8 gm/dL</td> <td>3.4-5.0</td> </tr> <tr> <td>BILI TOTAL</td> <td>0.4 mg/dL</td> < td>0.0-1.0</td> </tr> <tr> <td>ALKALINE PHOSPHATASE TOTAL </td> <td>88 IU/L</td> <td>45-117</td> </tr> <tr > <th colspan="10">CBC - 07/19/16 06:27</th> </tr> <tr> <td>MEAN CELL HGB</td> <td>29.3 pg</td> <td>27.0-33.0 </td> </tr> <tr> <td>MEAN CELL HGB CONCENTRATION</td> <td>31.6 g/dL</td> <td>32.0-37.0</td> </tr> <tr> <td>MEAN CELL VOLUME</td> <td>92.9 fl</td> <td>80.0- 100.0</td> </tr> <tr> <td>RED BLOOD CELL</td> < td>3.68 m/cumm</td> <td>4.00-6.00</td> </tr> <tr> <td>RED CELL DISTRIBUTION WIDTH</td> <td>16.2 %</td> < td>11.0-15.6</td> </tr> <tr> <td>WHITE BLOOD CELL</td> <td>7.5 k/cumm</td> <td>5.0-10.0</td> </tr> <tr> <td>HEMOGLOBIN</td> <td>10.8 gm/dL</td> <td>12.0- 16.0</td> </tr> <tr> <td>HEMATOCRIT</td> <td> 34.2 %</td> <td>37.0-47.0</td> </tr> <tr> < td>PLATELET COUNT</td> <td>132 k/cumm</td> <td>150-400</td> </tr> <tr> <th colspan="10">PROTHROMBIN TIME WITH INR - 15:53</th> </tr> <tr> <td>INTERNATIONAL NORMAL RATIO</td> <td>1.6 </td> <td>0.9-1.1</td> </tr> <tr> <td>PROTHROMBIN TIME</td> <td>17.9 sec</td> <td> 10.0-12.8</td> </tr> <tr> <th colspan="10">PROTHROMBIN TIME WITH INR - 07/20/16 05:04</th> </tr> <tr> <td> INTERNATIONAL NORMAL RATIO</td> <td>1.6 </td> <td>0.9-1.1</td > </tr> <tr> <td>PROTHROMBIN TIME</td> <td>18.1 sec</td> <td>10.0-12.8</td> </tr> <tr> <th colspan="10">METABOLIC PANEL, BASIC - 07/20/16 05:04</th> </tr> < tr> <td>POTASSIUM</td> <td>3.9 mmol/L</td> <td>3.5- 5.3</td> </tr> <tr> <td>EST GFR (MDRD)</td> <td> > 60 mL/min</td> <td>> 59</td> </tr> <tr> <td>ANION GAP</td> <td>9 mmol/L</td> <td>5-15</td> </tr > <tr> <td>EST CrCl (CG)</td> <td>> 60 mL/min</td> <td>> 59</td> </tr> <tr> <td>GLUCOSE</td> <td>88 mg/dL</td> <td>70-99</td> </tr> <tr> <td>CALCIUM</td> <td>8.4 mg/dL</td> <td>8.5-10.1</td> </tr> <tr> <td>BLOOD UREA NITROGEN</td> <td>11 mg/ dL</td> <td>7-20</td> </tr> <tr> <td>CREATININE< /td> <td>0.6 mg/dL</td> <td>0.6-1.0</td> </tr> < tr> <td>SODIUM</td> <td>145 mmol/L</td> <td>135-148</ td> </tr> <tr> <td>CHLORIDE</td> <td>109 mmol/L< /td> <td>98-110</td> </tr> <tr> <td>CARBON DIOXIDE</td> <td>27 mmol/L</td> <td>21-32</td> </tr> <tr> < colspan="10">Protime - 08/07/16 10:45</th> </tr > <tr> <td>INR</td> <td>2.7 </td> <td>1.0-4.0< /td> </tr> <tr> <td>Protime</td> <td>32.9 Sec</ td> <td>9.9-12.8</td> </tr> <tr> < colspan="10 ">Protime - 08/14/16 11:25</th> </tr> <tr> <td>INR</td> <td>4.1 </td> <td>1.0-4.0</td> </tr> <tr> <td>Protime</td> <td>51.1 Sec</td> <td>9.9-12.8</td> </tr> <tr> < colspan="10">Protime - 08/16/16 10:00</th> </tr> <tr> <td>INR</td> <td>1.7 </td> < td>1.0-4.0</td> </tr> <tr> <td>Protime</td> <td> 21.0 Sec</td> <td>9.9-12.8</td> </tr> <tr> < colspan="10">Protime - 08/19/16 11:08</th> </tr> <tr> < td>INR</td> <td>1.9 </td> <td>1.0-4.0</td> </tr> <tr> <td>Protime</td> <td>23.5 Sec</td> <td>9.9- 12.8</td> </tr> <tr> <th colspan="10">Comprehensive Metabolic Panel - 08/20/16 09:43</th> </tr> <tr> <td> Albumin</td> <td>4.2 g/dL</td> <td>3.6-5.1</td> </tr> <tr> <td>ALP</td> <td>112 U/L</td> <td>35-130< /td> </tr> <tr> <td>ALT</td> <td>15 U/L</td> <td>6-45</td> </tr> <tr> <td>Anion Gap</td> <td>18 </td> <td>6-14</td> </tr> <tr> <td> AST</td> <td>21 U/L</td> <td>2-40</td> </tr> <tr > <td>BUN</td> <td>17 mg/dL</td> <td>5-25</td> </tr> <tr> <td>Calcium</td> <td>9.5 mg/dL</td> <td>8.3-10.4</td> </tr> <tr> <td>Chloride</td> <td>99 mmol/L</td> <td>95-114</td> </tr> <tr> <td>CO2</td> <td>29 mEq/L</td> <td>22-33</td> </tr> <tr> <td>Creat</td> <td>0.91 mg/dL</td> <td> 0.50-1.50</td> </tr> <tr> <td>eGFR</td> <td>61 mL/min/1.73m2</td> <td>>59</td> </tr> <tr> < td>Globulin</td> <td>3.0 g/dL</td> <td>2.3-3.5</td> </ tr> <tr> <td>Glucose</td> <td>99 mg/dL</td> < td>70-110</td> </tr> <tr> <td>Osmo</td> <td>295 </td> <td>280-295</td> </tr> <tr> <td>Potassium< /td> <td>3.6 mmol/L</td> <td>3.5-5.3</td> </tr> <tr> <td>Sodium</td> <td>142 mmol/L</td> <td>134-148< /td> </tr> <tr> <td>TBil</td> <td>0.4 mg/dL</td > <td>0.2-1.2</td> </tr> <tr> <td>TP</td> <td>7.2 g/dL</td> <td>6.0-8.3</td> </tr> <tr> <th colspan="10">Protime - 08/20/16 09:43</th> </tr> <tr> <td>INR</td> <td>2.7 </td> <td>1.0-4.0</td> </tr > <tr> <td>Protime</td> <td>33.7 Sec</td> <td> 9.9-12.8</td> </tr> <tr> <th colspan="10">Urinalysis - 09:43</th> </tr> <tr> <td>Icotest</td> < td>N/A </td> <td>Negative</td> </tr> <tr> <td> Urine Volume</td> <td>Urine Volume Sufficient (10mL) </td> < td /> </tr> <tr> <td>Urine-Appearance</td> <td> Clear </td> <td>Clear</td> </tr> <tr> <td>Urine- Bacteria</td> <td>1+ </td> <td> </td> </tr> <tr > <td>Urine-Bilirubin</td> <td>Negative </td> <td> Negative</td> </tr> <tr> <td>Urine-Blood</td> < td>Negative </td> <td>Negative</td> </tr> <tr> < td>Urine-Color</td> <td>Yellow </td> <td>Colorless-Lt. Yellow< /td> </tr> <tr> <td>Urine-Epithelial Cells</td> <td>0-5/HPF </td> <td> </td> </tr> <tr> <td> Urine-Glucose</td> <td>Negative </td> <td>Negative</td> </tr> <tr> <td>Urine-Ketones</td> <td>Negative </td> <td>Negative</td> </tr> <tr> <td>Urine- Leukocytes</td> <td>Trace </td> <td>Negative</td> </tr > <tr> <td>Urine-Nitrite</td> <td>Negative </td> <td>Negative</td> </tr> <tr> <td>Urine-Other</td> <td> Urine Saved if Culture Needed (48hrs from time of collection) </td> <td> </td> </tr> <tr> <td>Urine-pH</td> <td>8.5 </td> <td>5-8.5</td> </tr> <tr> <td> Urine-Protein</td> <td>Negative </td> <td>Negative</td> </tr> <tr> <td>Urine-RBC</td> <td>Few/HPF </td> <td> </td> </tr> <tr> <td>Urine-Specific [place]</td > <td>1.015 </td> <td>1.000-1.030</td> </tr> <tr > <td>Urine-WBC</td> <td>0-2/HPF </td> <td> </td> </tr> <tr> <td>Urobilinogen</td> <td>0.2 E.U./dL < /td> <td>0.2-1.0</td> </tr> <tr> <th colspan="10 ">Other Culture - 08/20/16 11:15</th> </tr> <tr> <td> PRELIM CULTURE RESULTS</td> <td>Abundant Gram Negative, 2nd organism isolated [place]/ID to [id number] Diptheroids, No Further Workup Done </td> <td /> </tr> <tr> <td>MEDIA PLATED</ td> <td>Setup at 11:41 on 08/20/2016 </td> <td /> </tr> <tr> <th colspan="10">Sensi - 08/20/16 11:15</th> </tr> <tr> <td>FINAL CULTURE RESULTS</td> <td>Pseudomonas aeruginosa (Isolate 1) </td> <td /> </tr> <tr> < td>Ampicillin/Sulbactam</td> <td>>16/8 </td> <td /> </tr> <tr> <td>Ampicillin</td> <td>>16 </td> <td /> </tr> <tr> <td>Amoxicillin/K Clavulanate</td> <td>>16/8 </td> <td /> </tr> <tr> < td>Ceftriaxone</td> <td>32 </td> <td /> </tr> < tr> <td>Ciprofloxacin</td> <td><=1 </td> <td /> </tr> <tr> <td>Nitrofurantoin</td> <td>>64 </ td> <td /> </tr> <tr> <td>Gentamicin</td> <td><=4 </td> <td /> </tr> <tr> <td> Levofloxacin</td> <td><=2 </td> <td /> </tr> <tr> <td>Trimethoprim/ Sulfamethoxazole</td> <td>>2/38 </td > <td /> </tr> <tr> <td>Tetracycline</td> <td>>8 </td> <td /> </tr> <tr> <td> Amikacin</td> <td><=16 </td> <td /> </tr> <tr > <td>Aztreonam</td> <td><=8 </td> <td /> < /tr> <tr> <td>Ceftazidime</td> <td>4 </td> < td /> </tr> <tr> <td>Ceftazidime/K Clavulanate</td> <td>2 </td> <td /> </tr> <tr> <td> Cephalothin</td> <td>>16 </td> <td /> </tr> < tr> <td>Cefotaxime</td> <td>16 </td> <td /> </ tr> <tr> <td>Cefotaxime/K Clavulanate</td> <td>>4 </ td> <td /> </tr> <tr> <td>Cefoxitin</td> <td>>16 </td> <td /> </tr> <tr> <td> Cefazolin</td> <td>>16 </td> <td /> </tr> <tr > <td>Cefepime</td> <td><=8 </td> <td /> </ tr> <tr> <td>Cefuroxime</td> <td>>16 </td> <td /> </tr> <tr> <td>Ertapenem</td> <td>2 </td > <td /> </tr> <tr> <td>Imipenem</td> < td><=4 </td> <td /> </tr> <tr> <td>Meropenem< /td> <td><=4 </td> <td /> </tr> <tr> <td>Piperacillin/Tazobactam</td> <td><=16 </td> <td /> </tr> <tr> <td>Piperacillin</td> <td><=16 </td > <td /> </tr> <tr> <td>Tigecycline</td> <td>N/R </td> <td /> </tr> <tr> <td> Tobramycin</td> <td><=4 </td> <td /> </tr> < tr> <th colspan="10">Sensi - 08/20/16 11:15</th> </tr> < tr> <td>Ampicillin/Sulbactam</td> <td>>16/8 </td> <td /> </tr> <tr> <td>Ampicillin</td> <td>> 16 </td> <td /> </tr> <tr> <td>Amoxicillin/K Clavulanate</td> <td>16/8 </td> <td /> </tr> <tr > <td>Ceftriaxone</td> <td><=8 </td> <td /> </tr> <tr> <td>Ciprofloxacin</td> <td><=1 </td> <td /> </tr> <tr> <td>Nitrofurantoin</td> <td><=32 </td> <td /> </tr> <tr> <td> Gentamicin</td> <td><=4 </td> <td /> </tr> < tr> <td>Levofloxacin</td> <td><=2 </td> <td /> </tr> <tr> <td>Trimethoprim/ Sulfamethoxazole</td> <td>>2/38 </td> <td /> </tr> <tr> <td> Tetracycline</td> <td><=4 </td> <td /> </tr> <tr> <td>Amikacin</td> <td><=16 </td> <td /> </tr> <tr> <td>Aztreonam</td> <td><=8 </td> <td /> </tr> <tr> <td>Ceftazidime</td> <td> <=1 </td> <td /> </tr> <tr> <td>Ceftazidime/ K Clavulanate</td> <td><=0.25 </td> <td /> </tr> <tr> <td>Cephalothin</td> <td>>16 </td> <td / > </tr> <tr> <td>Cefotaxime</td> <td><=2 </td > <td /> </tr> <tr> <td>Cefotaxime/K Clavulanate </td> <td><=0.5 </td> <td /> </tr> <tr> <td>Cefoxitin</td> <td><=8 </td> <td /> </tr> <tr> <td>Cefazolin</td> <td>>16 </td> <td / > </tr> <tr> <td>Cefepime</td> <td><=8 </td> <td /> </tr> <tr> <td>Cefuroxime</td> <td><=4 </td> <td /> </tr> <tr> <td>Ertapenem </td> <td><=1 </td> <td /> </tr> <tr> <td>Imipenem</td> <td><=4 </td> <td /> </tr> <tr> <td>Meropenem</td> <td><=4 </td> <td /> </tr> <tr> <td>Piperacillin/Tazobactam</td> <td> <=16 </td> <td /> </tr> <tr> <td>Piperacillin </td> <td>>64 </td> <td /> </tr> <tr> <td>Tigecycline</td> <td><=2 </td> <td /> </tr> <tr> <td>Tobramycin</td> <td><=4 </td> <td /> </tr> <tr> <td>FINAL CULTURE RESULTS</td> <td >Escherichia coli (Isolate 2) </td> <td /> </tr> <tr> <th colspan="10">Protime - 08/26/16 14:45</th> </tr> <tr> <td>INR</td> <td>3.4 </td> <td>1.0-4.0</td> < /tr> <tr> <td>Protime</td> <td>42.2 Sec</td> < td>9.9-12.8</td> </tr> <tr> <th colspan="10">Protime - 09/03/16 10:19</th> </tr> <tr> <td>INR</td> <td> 2.5 </td> <td>1.0-4.0</td> </tr> <tr> <td> Protime</td> <td>30.9 Sec</td> <td>9.9-12.8</td> </tr> <tr> <th colspan="10">Comprehensive Metabolic Panel - 09/11/16 14:46</th> </tr> <tr> <td>Albumin</td> <td>3.4 g /dL</td> <td>3.6-5.1</td> </tr> <tr> <td>ALP</td > <td>115 U/L</td> <td>35-130</td> </tr> <tr> <td>ALT</td> <td>18 U/L</td> <td>6-45</td> </tr > <tr> <td>Anion Gap</td> <td>18 </td> <td>6- 14</td> </tr> <tr> <td>AST</td> <td>27 U/L</td> <td>2-40</td> </tr> <tr> <td>BUN</td> <td>9 mg/dL</td> <td>5-25</td> </tr> <tr> <td> Calcium</td> <td>9.5 mg/dL</td> <td>8.3-10.4</td> </tr > <tr> <td>Chloride</td> <td>104 mmol/L</td> < td>95-114</td> </tr> <tr> <td>CO2</td> <td>27 mEq/L</td> <td>22-33</td> </tr> <tr> <td>Creat</ td> <td>0.73 mg/dL</td> <td>0.50-1.50</td> </tr> <tr> <td>eGFR</td> <td>79 mL/min/1.73m2</td> <td>& gt;59</td> </tr> <tr> <td>Globulin</td> <td>3.6 g/dL</td> <td>2.3-3.5</td> </tr> <tr> <td> Glucose</td> <td>101 mg/dL</td> <td>70-110</td> </tr> <tr> <td>Osmo</td> <td>296 </td> <td>280-295</ td> </tr> <tr> <td>Potassium</td> <td>5.0 mmol/L </td> <td>3.5-5.3</td> </tr> <tr> <td>Sodium</td > <td>144 mmol/L</td> <td>134-148</td> </tr> <tr > <td>TBil</td> <td>0.3 mg/dL</td> <td>0.2-1.2</td> </tr> <tr> <td>TP</td> <td>7.0 g/dL</td> <td>6.0-8.3</td> </tr> <tr> < colspan="10"> Urinalysis - 09/11/16 14:46</th> </tr> <tr> <td>Icotest</ td> <td>N/A </td> <td>Negative</td> </tr> <tr> <td>Urine Volume</td> <td> Urine Volume Insufficient (<10mL ) May Affect Microscopic Exam </td> <td /> </tr> <tr> <td>Urine Yeast</td> <td>No Yeast present </td> <td /> </tr> <tr> <td>Urine-Appearance</td> <td> Slightly Cloudy </td> <td>Clear</td> </tr> <tr> <td>Urine-Bacteria</td> <td>Trace </td> <td> </td> </tr > <tr> <td>Urine-Bilirubin</td> <td>Negative </td> <td>Negative</td> </tr> <tr> <td>Urine-Blood</td> <td>Negative </td> <td>Negative</td> </tr> <tr> <td>Urine-Color</td> <td>Yellow </td> <td>Colorless- Lt. Yellow</td> </tr> <tr> <td>Urine-Epithelial Cells</td > <td>0-5/HPF </td> <td> </td> </tr> <tr> <td>Urine-Glucose</td> <td>Negative </td> <td>Negative</td > </tr> <tr> <td>Urine-Ketones</td> <td>Trace </ td> <td>Negative</td> </tr> <tr> <td>Urine- Leukocytes</td> <td>Negative </td> <td>Negative</td> </ tr> <tr> <td>Urine-Mucus</td> <td>1+ </td> <td > </td> </tr> <tr> <td>Urine-Nitrite</td> <td> Negative </td> <td>Negative</td> </tr> <tr> <td> Urine-Other</td> <td> Urine Saved if Culture Needed (48hrs from time of collection) </td> <td> </td> </tr> <tr> <td> Urine-pH</td> <td>8.5 </td> <td>5-8.5</td> </tr> <tr> <td>Urine-Protein</td> <td>1+ </td> <td> Negative</td> </tr> <tr> <td>Urine-RBC</td> <td> Rare/HPF </td> <td> </td> </tr> <tr> <td>Urine- Specific [place]</td> <td>1.015 </td> <td>1.000-1.030</td> </tr> <tr> <td>Urine-WBC</td> <td>Rare/HPF </td> <td> </td> </tr> <tr> <td>Urobilinogen</td> <td>0.2 </td> <td>0.2-1.0</td> </tr> <tr> <th colspan="10">Lactic Acid - 09/11/16 15:00</th> </tr> <tr> <td>Lactic Acid</td> <td>14.4 mg/dL</td> <td>4.5-19.8</ td> </tr> <tr> <th colspan="10">Blood Culture - 09/11/16 15:00</th> </tr> <tr> <td>PRELIM CULTURE RESULTS</td> <td>Blood Culture POSITIVE, Growth Day 2 </td> <td /> </ tr> <tr> <td>MEDIA PLATED</td> <td>Setup at 15:17 on 09/11/2016 Blood Culture Media Position C48 </td> <td /> </tr> <tr> <td>CULTURE SOURCE</td> <td>left [id number] </td> <td /> </tr> <tr> <th colspan="10">Other Culture - 15:00</th> </tr> <tr> <td>PRELIM CULTURE RESULTS</ td> <td>Moderate [id number] further workup </td> <td / > </tr> <tr> <td>MEDIA PLATED</td> <td>Setup at 15:33 on 09/11/2016 </td> <td /> </tr> <tr> <th colspan="10">Sensi - 09/11/16 15:00</th> </tr> <tr> <td> FINAL CULTURE RESULTS</td> <td>Pseudomonas aeruginosa (Isolate 1) </td > <td /> </tr> <tr> <td>Ampicillin/Sulbactam</td > <td>>168 </td> <td /> </tr> <tr> <td>Ampicillin</td> <td>>16 </td> <td /> </tr> <tr> <td>Amoxicillin/K Clavulanate</td> <td>>16/8 </td> <td /> </tr> <tr> <td>Ceftriaxone</td> <td>32 </td> <td /> </tr> <tr> <td> Ciprofloxacin</td> <td><=1 </td> <td /> </tr> <tr> <td>Nitrofurantoin</td> <td>>64 </td> <td / > </tr> <tr> <td>Gentamicin</td> <td><=4 </td > <td /> </tr> <tr> <td>Levofloxacin</td> <td><=2 </td> <td /> </tr> <tr> <td> Trimethoprim/ Sulfamethoxazole</td> <td><=2/38 </td> <td / > </tr> <tr> <td>Tetracycline</td> <td>>8 </ td> <td /> </tr> <tr> <td>Amikacin</td> <td><=16 </td> <td /> </tr> <tr> <td> Aztreonam</td> <td><=8 </td> <td /> </tr> <tr > <td>Ceftazidime</td> <td><=1 </td> <td /> </tr> <tr> <td>Ceftazidime/K Clavulanate</td> <td>&gt ;2 </td> <td /> </tr> <tr> <td>Cephalothin</td> <td>>16 </td> <td /> </tr> <tr> <td >Cefotaxime</td> <td>16 </td> <td /> </tr> <tr> <td>Cefotaxime/K Clavulanate</td> <td>>4 </td> < td /> </tr> <tr> <td>Cefoxitin</td> <td>>16 < /td> <td /> </tr> <tr> <td>Cefazolin</td> <td>>16 </td> <td /> </tr> <tr> <td> Cefepime</td> <td><=8 </td> <td /> </tr> <tr > <td>Cefuroxime</td> <td>>16 </td> <td /> </tr> <tr> <td>Ertapenem</td> <td>2 </td> <td /> </tr> <tr> <td>Imipenem</td> <td><=4 </td > <td /> </tr> <tr> <td>Meropenem</td> <td><=4 </td> <td /> </tr> <tr> <td> Piperacillin/Tazobactam</td> <td><=16 </td> <td /> < /tr> <tr> <td>Piperacillin</td> <td><=16 </td> <td /> </tr> <tr> <td>Tigecycline</td> <td> N/R </td> <td /> </tr> <tr> <td>Tobramycin</td> <td><=4 </td> <td /> </tr> <tr> < th colspan="10">Protime - 09/13/16 09:45</th> </tr> <tr> <td>INR</td> <td>2.7 </td> <td>1.0-4.0</td> </tr> <tr> <td>Protime</td> <td>33.5 Sec</td> <td>9.9- 12.8</td> </tr> <tr> <th colspan="10">Blood Culture - 05/27 18:36</th> </tr> <tr> <td>PRELIM CULTURE RESULTS</ td> <td>Blood Culture Negative, No Growth Day 1 </td> <td /> </tr> <tr> <td>FINAL CULTURE RESULTS</td> <td> Blood Culture Negative, No Growth Day 5 </td> <td /> </tr> <tr> <td>MEDIA PLATED</td> <td>Setup at 21:29 on [id number] Culture Media Position C50 </td> <td /> </ tr> <tr> <td>CULTURE SOURCE</td> <td>DRAWN @ RIGHT ARM </td> <td /> </tr> <tr> <th colspan="10">C- Reactive Protein - 09/13/16 18:36</th> </tr> <tr> <td>C- Reactive Protein</td> <td>6.11 mg/dL</td> <td>0.00-0.50</td> </tr> <tr> <th colspan="10">IFOBT Occult Blood - 19:30</th> </tr> <tr> <td>IFOBT Occult Blood</td> <td>NEGATIVE </td> <td>Negative</td> </tr> <tr> <th colspan="10">Blood Culture - 09/13/16 21:00</th> </tr> <tr> <td>PRELIM CULTURE RESULTS</td> <td>Blood Culture Negative, No Growth Day 1 </td> <td /> </tr> <tr> <td>FINAL CULTURE RESULTS</td> <td>Blood Culture Negative, No Growth Day 5 </td> <td /> </tr> <tr> <td>MEDIA PLATED</td> <td>Setup at 21:29 on [id number]/13/[id number] Culture Media Position C46 </td> <td /> </tr> <tr> <td> CULTURE SOURCE</td> <td>DRAWN @ LEFT ARM </td> <td /> < /tr> <tr> <th colspan="10">Comprehensive Metabolic Panel - 09/14 06:00</th> </tr> <tr> <td>Albumin</td> <td> 3.1 g/dL</td> <td>3.6-5.1</td> </tr> <tr> <td> ALP</td> <td>143 U/L</td> <td>35-130</td> </tr> <tr> <td>ALT</td> <td>18 U/L</td> <td>6-45</td> </tr> <tr> <td>Anion Gap</td> <td>15 </td> <td>6-14</td> </tr> <tr> <td>AST</td> <td>20 U/L </td> <td>2-40</td> </tr> <tr> <td>BUN</td> <td>12 mg/dL</td> <td>5-25</td> </tr> <tr> <td>Calcium</td> <td>8.8 mg/dL</td> <td>8.3-10.4</td> </tr> <tr> <td>Chloride</td> <td>109 mmol/L</td> <td>95-114</td> </tr> <tr> <td>CO2</td> < td>24 mEq/L</td> <td>22-33</td> </tr> <tr> <td> Creat</td> <td>0.63 mg/dL</td> <td>0.50-1.50</td> </tr > <tr> <td>eGFR</td> <td>94 mL/min/1.73m2</td> <td>>59</td> </tr> <tr> <td>Globulin</td> < td>2.4 g/dL</td> <td>2.3-3.5</td> </tr> <tr> <td >Glucose</td> <td>93 mg/dL</td> <td>70-110</td> </tr> <tr> <td>Osmo</td> <td>297 </td> <td>280-295</ td> </tr> <tr> <td>Potassium</td> <td>4.0 mmol/L </td> <td>3.5-5.3</td> </tr> <tr> <td>Sodium</td > <td>144 mmol/L</td> <td>134-148</td> </tr> <tr > <td>TBil</td> <td>0.2 mg/dL</td> <td>0.2-1.2</td> </tr> <tr> <td>TP</td> <td>5.5 g/dL</td> <td>6.0-8.3</td> </tr> <tr> < colspan="10">[facility] - 07/27 06:00</th> </tr> <tr> <td>Anion Gap</td> < td>15 </td> <td>6-14</td> </tr> <tr> <td>BUN</td > <td>17 mg/dL</td> <td>5-25</td> </tr> <tr> <td>Calcium</td> <td>9.1 mg/dL</td> <td>8.3-10.4</td> </tr> <tr> <td>Chloride</td> <td>104 mmol/L</td > <td>95-114</td> </tr> <tr> <td>CO2</td> <td>29 mEq/L</td> <td>22-33</td> </tr> <tr> <td>Creat</td> <td>0.72 mg/dL</td> <td>0.50-1.50</td> < /tr> <tr> <td>eGFR</td> <td>80 mL/min/1.73m2</td> <td>>59</td> </tr> <tr> <td>Glucose</td> <td>85 mg/dL</td> <td>70-110</td> </tr> <tr> < td>Osmo</td> <td>298 </td> <td>280-295</td> </tr> <tr> <td>Potassium</td> <td>4.1 mmol/L</td> <td> 3.5-5.3</td> </tr> <tr> <td>Sodium</td> <td>144 mmol/L</td> <td>134-148</td> </tr> <tr> <th colspan="10">Protime - 09/15/16 17:14</th> </tr> <tr> < td>INR</td> <td>2.6 </td> <td>1.0-4.0</td> </tr> <tr> <td>Protime</td> <td>31.9 Sec</td> <td>9.9- 12.8</td> </tr> <tr> <th colspan="10">Urinalysis - 18:56</th> </tr> <tr> <td>Icotest</td> <td>N/ A </td> <td>Negative</td> </tr> <tr> <td>Urine Volume</td> <td>Urine Volume Sufficient (10mL) </td> <td /> </tr> <tr> <td>Urine-Appearance</td> <td>Clear </ td> <td>Clear</td> </tr> <tr> <td>Urine-Bacteria </td> <td>Negative </td> <td> </td> </tr> <tr> <td>Urine-Bilirubin</td> <td>Negative </td> <td> Negative</td> </tr> <tr> <td>Urine-Blood</td> < td>Trace-intact </td> <td>Negative</td> </tr> <tr> <td>Urine-Color</td> <td>Yellow </td> <td>Colorless-Lt. Yellow</td> </tr> <tr> <td>Urine-Epithelial Cells</td> <td>0-5/HPF </td> <td> </td> </tr> <tr> <td>Urine-Glucose</td> <td>Negative </td> <td>Negative</td> </tr> <tr> <td>Urine-Ketones</td> <td>Negative </ td> <td>Negative</td> </tr> <tr> <td>Urine- Leukocytes</td> <td>Negative </td> <td>Negative</td> </ tr> <tr> <td>Urine-Nitrite</td> <td>Negative </td> <td>Negative</td> </tr> <tr> <td>Urine-Other</td> <td> Urine Saved if Culture Needed (48hrs from time of collection) </td > <td> </td> </tr> <tr> <td>Urine-pH</td> <td>7.5 </td> <td>5-8.5</td> </tr> <tr> <td> Urine-Protein</td> <td>Negative </td> <td>Negative</td> </tr> <tr> <td>Urine-RBC</td> <td>0-2/HPF </td> <td> </td> </tr> <tr> <td>Urine-Specific [place]</td > <td>1.015 </td> <td>1.000-1.030</td> </tr> <tr > <td>Urine-WBC</td> <td>0-2/HPF </td> <td> </td> </tr> <tr> <td>Urobilinogen</td> <td>0.2 </td> <td>0.2-1.0</td> </tr> <tr> < colspan="10"> Protime - 09/17/16 11:14</th> </tr> <tr> <td>INR</td> <td>2.5 </td> <td>1.0-4.0</td> </tr> <tr> <td>Protime</td> <td>30.5 Sec</td> <td>9.9-12.8</td> </tr> <tr> <th colspan="10">HEMOGLOBIN - 09/18/16 11:53</th> </tr> <tr> <td>MEAN CELL VOLUME</td> <td>94.4 fl </td> <td>80.0-100.0</td> </tr> <tr> <td> HEMOGLOBIN</td> <td>12.1 gm/dL</td> <td>12.0-16.0</td> </tr> <tr> <th colspan="10">PROTHROMBIN TIME WITH INR - 11:53</th> </tr> <tr> <td>INTERNATIONAL NORMAL RATIO</ td> <td>2.6 </td> <td>0.9-1.1</td> </tr> <tr> <td>PROTHROMBIN TIME</td> <td>29.3 sec</td> <td>10.0- 12.8</td> </tr> <tr> <th colspan="10">METABOLIC PANEL, BASIC - 09/18/16 12:23</th> </tr> <tr> <td>POTASSIUM</td > <td>4.2 mmol/L</td> <td>3.5-5.3</td> </tr> <tr > <td>EST GFR (MDRD)</td> <td>> 60 mL/min</td> <td >> 59</td> </tr> <tr> <td>ANION GAP</td> <td> 10 mmol/L</td> <td>5-15</td> </tr> <tr> <td>EST CrCl (CG)</td> <td>> 60 mL/min</td> <td>> 59</td> </tr> <tr> <td>GLUCOSE</td> <td>84 mg/dL</td> <td>70-99</td> </tr> <tr> <td>CALCIUM</td> < td>9.4 mg/dL</td> <td>8.5-10.1</td> </tr> <tr> < td>BLOOD UREA NITROGEN</td> <td>19 mg/dL</td> <td>7-20</td> </tr> <tr> <td>CREATININE</td> <td>0.8 mg/dL</td > <td>0.6-1.0</td> </tr> <tr> <td>SODIUM</td> <td>141 mmol/L</td> <td>135-148</td> </tr> <tr> <td>CHLORIDE</td> <td>101 mmol/L</td> <td>98-110</td > </tr> <tr> <td>CARBON DIOXIDE</td> <td>30 mmol /L</td> <td>21-32</td> </tr> <tr> <th colspan= "10">MRSA SURVEILLANCE SCREEN - 09/18/16 12:23</th> </tr> <tr> <td>Microbiology</td> <td> </td> <td /> </tr> <tr> <th colspan="10">CBC - 09/19/16 04:30</th> </tr> <tr> <td>MEAN CELL HGB</td> <td>29.2 pg</td> <td> 27.0-33.0</td> </tr> <tr> <td>MEAN CELL HGB CONCENTRATION </td> <td>31.4 g/dL</td> <td>32.0-37.0</td> </tr> <tr> <td>MEAN CELL VOLUME</td> <td>92.9 fl</td> < td>80.0-100.0</td> </tr> <tr> <td>MEAN PLATELET VOLUME</ td> <td>9.3 fl</td> <td>8.5-10.9</td> </tr> <tr > <td>RED BLOOD CELL</td> <td>3.36 m/cumm</td> <td> 4.00-6.00</td> </tr> <tr> <td>RED CELL DISTRIBUTION WIDTH </td> <td>15.8 %</td> <td>11.0-15.6</td> </tr> <tr> <td>WHITE BLOOD CELL</td> <td>7.8 k/cumm</td> <td>5.0-10.0</td> </tr> <tr> <td>HEMOGLOBIN</td> <td>9.8 gm/dL</td> <td>12.0-16.0</td> </tr> <tr> <td>HEMATOCRIT</td> <td>31.2 %</td> <td>37.0-47.0</ td> </tr> <tr> <td>PLATELET COUNT</td> <td>334 k /cumm</td> <td>150-400</td> </tr> <tr> <th colspan="10">PROTHROMBIN TIME WITH INR - 09/19/16 04:30</th> </tr> <tr> <td>INTERNATIONAL NORMAL RATIO</td> <td>2.3 </td> <td>0.9-1.1</td> </tr> <tr> <td>PROTHROMBIN TIME</td > <td>25.9 sec</td> <td>10.0-12.8</td> </tr> <tr > <th colspan="10">METABOLIC PANEL, COMPREHN - 09/19/16 04:30</th> </tr> <tr> <td>POTASSIUM</td> <td>4.1 mmol/L</td> <td>3.5-5.3</td> </tr> <tr> <td>EST GFR (MDRD)</ td> <td>> 60 mL/min</td> <td>> 59</td> </tr> <tr> <td>ANION GAP</td> <td>6 mmol/L</td> <td>5- 15</td> </tr> <tr> <td>EST CrCl (CG)</td> <td>& gt; 60 mL/min</td> <td>> 59</td> </tr> <tr> < td>GLUCOSE</td> <td>93 mg/dL</td> <td>70-99</td> </tr> <tr> <td>CALCIUM</td> <td>8.0 mg/dL</td> <td> 8.5-10.1</td> </tr> <tr> <td>BLOOD UREA NITROGEN</td> <td>14 mg/dL</td> <td>7-20</td> </tr> <tr> <td>CREATININE</td> <td>0.8 mg/dL</td> <td>0.6-1.0</td> </tr> <tr> <td>SODIUM</td> <td>141 mmol/L</td> <td>135-148</td> </tr> <tr> <td>CHLORIDE</td> <td>106 mmol/L</td> <td>98-110</td> </tr> <tr> <td>AST/SGOT</td> <td>42 Units/L</td> <td>10-37</td> </tr> <tr> <td>ALT/SGPT</td> <td>28 Units/L</td> <td>< 66</td> </tr> <tr> <td>CARBON DIOXIDE</ td> <td>29 mmol/L</td> <td>21-32</td> </tr> <tr > <td>TOTAL PROTEIN</td> <td>5.6 gm/dL</td> <td>6.4- 8.2</td> </tr> <tr> <td>ALBUMIN</td> <td>2.2 gm/ dL</td> <td>3.4-5.0</td> </tr> <tr> <td>BILI TOTAL</td> <td>0.4 mg/dL</td> <td>0.0-1.0</td> </tr> <tr> <td>ALKALINE PHOSPHATASE TOTAL</td> <td>155 IU/L</ td> <td>45-117</td> </tr> <tr> < colspan="10"> PROTHROMBIN TIME WITH INR - 09/20/16 06:10</th> </tr> <tr> <td>INTERNATIONAL NORMAL RATIO</td> <td>2.2 </td> <td>0.9- 1.1</td> </tr> <tr> <td>PROTHROMBIN TIME</td> < td>25.6 sec</td> <td>10.0-12.8</td> </tr> <tr> < colspan="10">PROTHROMBIN TIME WITH INR - 09/21/16 05:46</th> </tr> <tr> <td>INTERNATIONAL NORMAL RATIO</td> <td>2.2 </td> <td>0.9-1.1</td> </tr> <tr> <td>PROTHROMBIN TIME< /td> <td>25.4 sec</td> <td>10.0-12.8</td> </tr> <tr> < colspan="10">PROTHROMBIN TIME WITH INR - 09/22/16 04:09</th> </tr> <tr> <td>INTERNATIONAL NORMAL RATIO</td> < td>2.4 </td> <td>0.9-1.1</td> </tr> <tr> <td> PROTHROMBIN TIME</td> <td>27.3 sec</td> <td>10.0-12.8</td> </tr> <tr> < colspan="10">LACTIC ACID - 10/08/16 08:49</ th> </tr> <tr> <td>LACTIC ACID</td> <td>2.2 mmol /L</td> <td>0.5-2.0</td> </tr> <tr> <th colspan= "10">CBC W/DIFF - 10/08/16 08:49</th> </tr> <tr> <td> EOSINOPHIL #</td> <td>0.3 k/cumm</td> <td>0.1-0.5</td> </tr> <tr> <td>EOSINOPHIL %</td> <td>3 %</td> <td>2-4</td> </tr> <tr> <td>GRANULOCYTE #</td> <td>8.2 k/cumm</td> <td>2.0-9.0</td> </tr> <tr> <td>GRANULOCYTE %</td> <td>74 %</td> <td>50- 75</td> </tr> <tr> <td>LYMPHOCYTE #</td> <td> 1.6 k/cumm</td> <td>1.0-4.0</td> </tr> <tr> <td> LYMPHOCYTE %</td> <td>14 %</td> <td>20-30</td> </tr> <tr> <td>MEAN CELL HGB</td> <td>28.8 pg</td> <td>27.0-33.0</td> </tr> <tr> <td>MEAN CELL HGB CONCENTRATION</td> <td>31.4 g/dL</td> <td>32.0-37.0</td> </tr> <tr> <td>MEAN CELL VOLUME</td> <td>91.7 fl</td > <td>80.0-100.0</td> </tr> <tr> <td>MONOCYTE #< /td> <td>0.9 k/cumm</td> <td>0.1-1.0</td> </tr> <tr> <td>MONOCYTE %</td> <td>9 %</td> <td>4-6 </td> </tr> <tr> <td>MEAN PLATELET VOLUME</td> < td>9.7 fl</td> <td>8.5-10.9</td> </tr> <tr> <td> RED BLOOD CELL</td> <td>3.85 m/cumm</td> <td>4.00-6.00</td> </tr> <tr> <td>RED CELL DISTRIBUTION WIDTH</td> < td>15.7 %</td> <td>11.0-15.6</td> </tr> <tr> <td>WHITE BLOOD CELL</td> <td>11.1 k/cumm</td> <td>5.0-10.0< /td> </tr> <tr> <td>HEMOGLOBIN</td> <td>11.1 gm/ dL</td> <td>12.0-16.0</td> </tr> <tr> <td> HEMATOCRIT</td> <td>35.3 %</td> <td>37.0-47.0</td> </tr> <tr> <td>PLATELET COUNT</td> <td>221 k/cumm</td> <td>150-400</td> </tr> <tr> <th colspan="10"> PROTHROMBIN TIME WITH INR - 10/08/16 08:49</th> </tr> <tr> <td>INTERNATIONAL NORMAL RATIO</td> <td>1.6 </td> <td>0.9- 1.1</td> </tr> <tr> <td>PROTHROMBIN TIME</td> < td>18.1 sec</td> <td>10.0-12.8</td> </tr> <tr> < th colspan="10">HEPATIC FUNCTION PANEL - 10/08/16 08:49</th> </tr> <tr> <td>BILI UNCONJUGATED</td> <td>0.5 mg/dL</td> <td>0.0-0.7</td> </tr> <tr> <td>AST/SGOT</td> < td>48 Units/L</td> <td>10-37</td> </tr> <tr> <td >ALT/SGPT</td> <td>53 Units/L</td> <td>< 66</td> </ tr> <tr> <td>TOTAL PROTEIN</td> <td>7.5 gm/dL</td> <td>6.4-8.2</td> </tr> <tr> <td>ALBUMIN</td> <td>3.1 gm/dL</td> <td>3.4-5.0</td> </tr> <tr> <td>BILI TOTAL</td> <td>0.7 mg/dL</td> <td>0.0-1.0</td> </tr> <tr> <td>ALKALINE PHOSPHATASE TOTAL</td> < td>180 IU/L</td> <td>45-117</td> </tr> <tr> <td> BILI CONJUGATED</td> <td>0.2 mg/dL</td> <td>0.0-0.3</td> </tr> <tr> <th colspan="10">TROPONIN I - 10/08/16 08:49</th> </tr> <tr> <td>TROPONIN I</td> <td>< 0.02 ng /mL</td> <td>< 0.07</td> </tr> <tr> <th colspan="10">RENAL FUNCTION PANEL - 10/08/16 08:49</th> </tr> <tr > <td>POTASSIUM</td> <td>3.6 mmol/L</td> <td>3.5-5.3< /td> </tr> <tr> <td>EST GFR (MDRD)</td> <td>&gt ; 60 mL/min</td> <td>> 59</td> </tr> <tr> <td >ANION GAP</td> <td>9 mmol/L</td> <td>5-15</td> </tr> <tr> <td>EST CrCl (CG)</td> <td>59 mL/min</td> <td>> 59</td> </tr> <tr> <td>GLUCOSE</td> < td>86 mg/dL</td> <td>70-99</td> </tr> <tr> <td> CALCIUM</td> <td>9.0 mg/dL</td> <td>8.5-10.1</td> </tr > <tr> <td>BLOOD UREA NITROGEN</td> <td>22 mg/dL</td> <td>7-20</td> </tr> <tr> <td>CREATININE</td> <td>0.9 mg/dL</td> <td>0.6-1.0</td> </tr> <tr> <td>SODIUM</td> <td>140 mmol/L</td> <td>135-148</td> </tr> <tr> <td>CHLORIDE</td> <td>103 mmol/L</td> <td>98-110</td> </tr> <tr> <td>CARBON DIOXIDE</ td> <td>28 mmol/L</td> <td>21-32</td> </tr> <tr > <td>ALBUMIN</td> <td>3.1 gm/dL</td> <td>3.4-5.0</td > </tr> <tr> <td>PHOSPHORUS</td> <td>3.0 mg/dL</ td> <td>2.5-4.9</td> </tr> <tr> < colspan="10 ">BLOOD CULTURE - 10/08/16 09:04</th> </tr> <tr> <td> Microbiology</td> <td> </td> <td /> </tr> <tr> <th colspan="10">BLOOD CULTURE - 10/08/16 09:06</th> </tr> <tr> <td>Microbiology</td> <td> </td> <td /> </tr> <tr> <th colspan="10">CHEM/HEM PROFILE-BEDSIDE - 09:07</th> </tr> <tr> <td>POTASSIUM</td> <td> 3.5 mmol/L</td> <td>3.5-5.3</td> </tr> <tr> <td> METHOD</td> <td>Bedside </td> <td /> </tr> <tr> <td>ANION GAP</td> <td>17 mmol/L</td> <td>10-20</td > </tr> <tr> <td>METHOD</td> <td>Bedside </td> <td /> </tr> <tr> <td>GLUCOSE</td> <td> 91 mg/dL</td> <td>70-99</td> </tr> <tr> <td> BLOOD UREA NITROGEN</td> <td>22 mg/dL</td> <td>7-20</td> </tr> <tr> <td>CREATININE</td> <td>0.9 mg/dL</td> <td>0.6-1.0</td> </tr> <tr> <td>HEMOGLOBIN</td> <td>12.9 gm/dL</td> <td>12.0-16.0</td> </tr> <tr > <td>HEMATOCRIT</td> <td>38.0 %</td> <td>37.0- 47.0</td> </tr> <tr> <td>SODIUM</td> <td>140 mmol/L</td> <td>135-148</td> </tr> <tr> <td> CHLORIDE</td> <td>99 mmol/L</td> <td>98-110</td> </tr> <tr> <td>CARBON DIOXIDE</td> <td>28 mmol/L</td> <td>21-32</td> </tr> <tr> <td>CALCIUM IONIZED</td> <td>4.4 mg/dL</td> <td>4.5-5.3</td> </tr> <tr> < colspan="10">URINALYSIS, ROUTINE - 10/08/16 09:36</th> </tr> <tr> <td>UA LEUKOCYTE ESTERASE DIPSTICK</td> <td>1+ </ td> <td>NEGATIVE</td> </tr> <tr> <td>UA NITRITE DIPSTICK</td> <td>POSITIVE </td> <td>NEGATIVE</td> </tr > <tr> <td>UA PROTEIN DIPSTICK</td> <td>2+ </td> <td>NEGATIVE</td> </tr> <tr> <td>UA GLUCOSE DIPSTICK< /td> <td>NEGATIVE </td> <td>NEGATIVE</td> </tr> <tr> <td>UA KETONE DIPSTICK</td> <td>NEGATIVE </td> < td>NEGATIVE</td> </tr> <tr> <td>UA UROBILINOGEN DIPSTICK< /td> <td>NORMAL </td> <td>NORMAL</td> </tr> <tr > <td>UA BILIRUBIN DIPSTICK</td> <td>NEGATIVE </td> < td>NEGATIVE</td> </tr> <tr> <td>UA BLOOD DIPSTICK</td> <td>2+ </td> <td>NEGATIVE</td> </tr> <tr> <td>UA SPECIFIC GRAVITY</td> <td>1.025 </td> <td>1.015- 1.025</td> </tr> <tr> <td>UR PH</td> <td>7.5 </ td> <td>5.0-7.0</td> </tr> <tr> <th colspan="10 ">UA MICROSCOPIC - 10/08/16 09:36</th> </tr> <tr> <td>UA BACTERIA</td> <td>5+ </td> <td>NEGATIVE</td> </tr> <tr> <td>UA RBC</td> <td>5-10 rbc/hpf</td> <td>0 - 3</td> </tr> <tr> <td>UA VOLUME FOR EXAM</td> <td>12.0 mL</td> <td>(12mL STD)</td> </tr> <tr> <td>UA WBC</td> <td>>100 wbc/hpf</td> <td>0 - 5</td> </tr> <tr> < colspan="10">URINE CULTURE - 10/08/16 09:36</th > </tr> <tr> <td>Microbiology</td> <td> </td> <td /> </tr> <tr> <th colspan="10">LACTIC ACID - 10/08/16 10:49</th> </tr> <tr> <td>LACTIC ACID</td> <td>1.5 mmol/L</td> <td>0.5-2.0</td> </tr> <tr> <th colspan="10">LACTIC ACID - 10/08/16 12:47</th> </tr> <tr > <td>LACTIC ACID</td> <td>1.3 mmol/L</td> <td>0.5- 2.0</td> </tr> <tr> <th colspan="10">GRAM STAIN - 14:59</th> </tr> <tr> <td>Microbiology</td> < td> </td> <td /> </tr> <tr> <th colspan="10">B- TYPE NATRIURETIC PEPTIDE - 10/09/16 05:19</th> </tr> <tr> <td>B-TYPE NATRIURETIC PEPTIDE</td> <td>83 pg/mL</td> <td>& lt; 100</td> </tr> <tr> <th colspan="10">CBC W/DIFF - 05:19</th> </tr> <tr> <td>BASOPHIL #</td> <td>0.1 k/cumm</td> <td>0.0-0.2</td> </tr> <tr> <td>BASOPHIL %</td> <td>1 %</td> <td>0-1</td> < /tr> <tr> <td>EOSINOPHIL #</td> <td>0.5 k/cumm</td> <td>0.1-0.5</td> </tr> <tr> <td>EOSINOPHIL %</ td> <td>4 %</td> <td>2-4</td> </tr> <tr> <td>GRANULOCYTE #</td> <td>6.5 k/cumm</td> <td>2.0-9.0< /td> </tr> <tr> <td>GRANULOCYTE %</td> <td> 61 %</td> <td>50-75</td> </tr> <tr> <td> LYMPHOCYTE #</td> <td>2.6 k/cumm</td> <td>1.0-4.0</td> </tr> <tr> <td>LYMPHOCYTE %</td> <td>24 %</td> <td>20-30</td> </tr> <tr> <td>MEAN CELL HGB</td > <td>28.9 pg</td> <td>27.0-33.0</td> </tr> <tr > <td>MEAN CELL HGB CONCENTRATION</td> <td>31.3 g/dL</td> <td>32.0-37.0</td> </tr> <tr> <td>MEAN CELL VOLUME< /td> <td>92.2 fl</td> <td>80.0-100.0</td> </tr> <tr> <td>MONOCYTE #</td> <td>1.1 k/cumm</td> <td>0.1- 1.0</td> </tr> <tr> <td>MONOCYTE %</td> <td> 11 %</td> <td>4-6</td> </tr> <tr> <td>MEAN PLATELET VOLUME</td> <td>9.8 fl</td> <td>8.5-10.9</td> </tr> <tr> <td>RED BLOOD CELL</td> <td>3.22 m/cumm</td > <td>4.00-6.00</td> </tr> <tr> <td>RED CELL DISTRIBUTION WIDTH</td> <td>15.6 %</td> <td>11.0-15.6</td > </tr> <tr> <td>WHITE BLOOD CELL</td> <td>10.7 k/cumm</td> <td>5.0-10.0</td> </tr> <tr> <td> HEMOGLOBIN</td> <td>9.3 gm/dL</td> <td>12.0-16.0</td> < /tr> <tr> <td>HEMATOCRIT</td> <td>29.7 %</td> <td>37.0-47.0</td> </tr> <tr> <td>PLATELET COUNT</td > <td>219 k/cumm</td> <td>150-400</td> </tr> <tr > <th colspan="10">PROTHROMBIN TIME WITH INR - 10/09/16 05:19</th> </tr> <tr> <td>INTERNATIONAL NORMAL RATIO</td> <td> 1.7 </td> <td>0.9-1.1</td> </tr> <tr> <td> PROTHROMBIN TIME</td> <td>19.6 sec</td> <td>10.0-12.8</td> </tr> <tr> <th colspan="10">METABOLIC PANEL, [facility] - 05:19</th> </tr> <tr> <td>POTASSIUM</td> < td>3.9 mmol/L</td> <td>3.5-5.3</td> </tr> <tr> < td>EST GFR (MDRD)</td> <td>> 60 mL/min</td> <td>> 59</td > </tr> <tr> <td>ANION GAP</td> <td>8 mmol/L</td > <td>5-15</td> </tr> <tr> <td>EST CrCl (CG)</td > <td>> 60 mL/min</td> <td>> 59</td> </tr> <tr> <td>GLUCOSE</td> <td>101 mg/dL</td> <td>70-99< /td> </tr> <tr> <td>CALCIUM</td> <td>8.7 mg/dL</ td> <td>8.5-10.1</td> </tr> <tr> <td>BLOOD UREA NITROGEN</td> <td>15 mg/dL</td> <td>7-20</td> </tr> <tr> <td>CREATININE</td> <td>0.8 mg/dL</td> <td> 0.6-1.0</td> </tr> <tr> <td>SODIUM</td> <td>136 mmol/L</td> <td>135-148</td> </tr> <tr> <td> CHLORIDE</td> <td>102 mmol/L</td> <td>98-110</td> </tr > <tr> <td>AST/SGOT</td> <td>70 Units/L</td> < td>10-37</td> </tr> <tr> <td>ALT/SGPT</td> <td> 64 Units/L</td> <td>< 66</td> </tr> <tr> <td> CARBON DIOXIDE</td> <td>26 mmol/L</td> <td>21-32</td> < /tr> <tr> <td>TOTAL PROTEIN</td> <td>6.3 gm/dL</td> <td>6.4-8.2</td> </tr> <tr> <td>ALBUMIN</td> <td>2.6 gm/dL</td> <td>3.4-5.0</td> </tr> <tr> <td>BILI TOTAL</td> <td>0.8 mg/dL</td> <td>0.0-1.0</td> </tr> <tr> <td>ALKALINE PHOSPHATASE TOTAL</td> < td>186 IU/L</td> <td>45-117</td> </tr> <tr> < colspan="10">PHOSPHORUS - 10/09/16 05:19</th> </tr> <tr> <td>PHOSPHORUS</td> <td>3.8 mg/dL</td> <td>2.5-4.9</td> </tr> <tr> < colspan="10">MAGNESIUM - 10/09/16 05:19</th> </tr> <tr> <td>MAGNESIUM</td> <td>2.2 mg/dL</td> <td>1.8-2.4</td> </tr> <tr> < colspan="10"> FERRITIN - 10/09/16 05:19</th> </tr> <tr> <td>FERRITIN</ td> <td>161 ng/mL</td> <td>8-252</td> </tr> <tr > < colspan="10">IRON W/ BINDING CAPACITY - 10/09/16 05:19</th> </tr> <tr> <td>IRON SATURATION</td> <td>8 % SAT< /td> <td>11-46</td> </tr> <tr> <td>IRON BINDING CAPACITY, TOTAL</td> <td>255 mcg/dL</td> <td>250-450</td> </tr> <tr> <td>IRON</td> <td>20 mcg/dL</td> <td>35-150</td> </tr> <tr> <th colspan="10">VITAMIN B12 - 10/09/16 05:19</th> </tr> <tr> <td>VITAMIN B12</td > <td>291 pg/mL</td> <td>211-911</td> </tr> <tr > <th colspan="10">CBC W/DIFF - 10/10/16 05:53</th> </tr> <tr> <td>EOSINOPHIL #</td> <td>0.3 k/cumm</td> <td> 0.1-0.5</td> </tr> <tr> <td>EOSINOPHIL %</td> <td>3 %</td> <td>2-4</td> </tr> <tr> <td> GRANULOCYTE #</td> <td>4.8 k/cumm</td> <td>2.0-9.0</td> </tr> <tr> <td>GRANULOCYTE %</td> <td>62 %</ td> <td>50-75</td> </tr> <tr> <td>LYMPHOCYTE #</ td> <td>2.0 k/cumm</td> <td>1.0-4.0</td> </tr> < tr> <td>LYMPHOCYTE %</td> <td>25 %</td> <td> 20-30</td> </tr> <tr> <td>MEAN CELL HGB</td> <td >28.8 pg</td> <td>27.0-33.0</td> </tr> <tr> <td> MEAN CELL HGB CONCENTRATION</td> <td>31.7 g/dL</td> <td>32.0- 37.0</td> </tr> <tr> <td>MEAN CELL VOLUME</td> < td>91.0 fl</td> <td>80.0-100.0</td> </tr> <tr> < td>MONOCYTE #</td> <td>0.7 k/cumm</td> <td>0.1-1.0</td> </tr> <tr> <td>MONOCYTE %</td> <td>9 %</td> <td>4-6</td> </tr> <tr> <td>MEAN PLATELET VOLUME </td> <td>9.7 fl</td> <td>8.5-10.9</td> </tr> < tr> <td>RED BLOOD CELL</td> <td>3.12 m/cumm</td> <td> 4.00-6.00</td> </tr> <tr> <td>RED CELL DISTRIBUTION WIDTH </td> <td>15.6 %</td> <td>11.0-15.6</td> </tr> <tr> <td>WHITE BLOOD CELL</td> <td>7.8 k/cumm</td> <td>5.0-10.0</td> </tr> <tr> <td>HEMOGLOBIN</td> <td>9.0 gm/dL</td> <td>12.0-16.0</td> </tr> <tr> <td>HEMATOCRIT</td> <td>28.4 %</td> <td>37.0-47.0</ td> </tr> <tr> <td>PLATELET COUNT</td> <td>166 k /cumm</td> <td>150-400</td> </tr> <tr> <th colspan="10">PROTHROMBIN TIME WITH INR - 10/10/16 05:53</th> </tr> <tr> <td>INTERNATIONAL NORMAL RATIO</td> <td>2.3 </td> <td>0.9-1.1</td> </tr> <tr> <td>PROTHROMBIN TIME</td > <td>25.9 sec</td> <td>10.0-12.8</td> </tr> <tr > <th colspan="10">METABOLIC PANEL, COMPREHN - 10/10/16 05:53</th> </tr> <tr> <td>POTASSIUM</td> <td>3.7 mmol/L</td> <td>3.5-5.3</td> </tr> <tr> <td>EST GFR (MDRD)</ td> <td>> 60 mL/min</td> <td>> 59</td> </tr> <tr> <td>ANION GAP</td> <td>10 mmol/L</td> <td>5- 15</td> </tr> <tr> <td>EST CrCl (CG)</td> <td>& gt; 60 mL/min</td> <td>> 59</td> </tr> <tr> < td>GLUCOSE</td> <td>88 mg/dL</td> <td>70-99</td> </tr> <tr> <td>CALCIUM</td> <td>8.1 mg/dL</td> <td> 8.5-10.1</td> </tr> <tr> <td>BLOOD UREA NITROGEN</td> <td>11 mg/dL</td> <td>7-20</td> </tr> <tr> <td>CREATININE</td> <td>0.7 mg/dL</td> <td>0.6-1.0</td> </tr> <tr> <td>SODIUM</td> <td>138 mmol/L</td> <td>135-148</td> </tr> <tr> <td>CHLORIDE</td> <td>102 mmol/L</td> <td>98-110</td> </tr> <tr> <td>AST/SGOT</td> <td>32 Units/L</td> <td>10-37</td> </tr> <tr> <td>ALT/SGPT</td> <td>42 Units/L</td> <td>< 66</td> </tr> <tr> <td>CARBON DIOXIDE</ td> <td>26 mmol/L</td> <td>21-32</td> </tr> <tr > <td>TOTAL PROTEIN</td> <td>5.8 gm/dL</td> <td>6.4- 8.2</td> </tr> <tr> <td>ALBUMIN</td> <td>2.3 gm/ dL</td> <td>3.4-5.0</td> </tr> <tr> <td>BILI TOTAL</td> <td>0.6 mg/dL</td> <td>0.0-1.0</td> </tr> <tr> <td>ALKALINE PHOSPHATASE TOTAL</td> <td>168 IU/L</ td> <td>45-117</td> </tr> <tr> <th colspan="10"> MAGNESIUM - 10/10/16 05:53</th> </tr> <tr> <td>MAGNESIUM< /td> <td>1.7 mg/dL</td> <td>1.8-2.4</td> </tr> < tr> <th colspan="10">CBC W/DIFF - 10/11/16 06:00</th> </tr> <tr> <td>EOSINOPHIL #</td> <td>0.4 k/cumm</td> < td>0.1-0.5</td> </tr> <tr> <td>EOSINOPHIL %</td> <td>7 %</td> <td>2-4</td> </tr> <tr> < td>GRANULOCYTE #</td> <td>2.8 k/cumm</td> <td>2.0-9.0</td> </tr> <tr> <td>GRANULOCYTE %</td> <td>53 % </td> <td>50-75</td> </tr> <tr> <td>LYMPHOCYTE # </td> <td>1.5 k/cumm</td> <td>1.0-4.0</td> </tr> <tr> <td>LYMPHOCYTE %</td> <td>28 %</td> < td>20-30</td> </tr> <tr> <td>MEAN CELL HGB</td> <td>28.3 pg</td> <td>27.0-33.0</td> </tr> <tr> < td>MEAN CELL HGB CONCENTRATION</td> <td>30.8 g/dL</td> <td> 32.0-37.0</td> </tr> <tr> <td>MEAN CELL VOLUME</td> <td>91.8 fl</td> <td>80.0-100.0</td> </tr> <tr> <td>MONOCYTE #</td> <td>0.6 k/cumm</td> <td>0.1-1.0</td > </tr> <tr> <td>MONOCYTE %</td> <td>12 &#37 ;</td> <td>4-6</td> </tr> <tr> <td>MEAN PLATELET VOLUME</td> <td>9.8 fl</td> <td>8.5-10.9</td> </tr> <tr> <td>RED BLOOD CELL</td> <td>3.04 m/cumm</td > <td>4.00-6.00</td> </tr> <tr> <td>RED CELL DISTRIBUTION WIDTH</td> <td>15.4 %</td> <td>11.0-15.6</td > </tr> <tr> <td>WHITE BLOOD CELL</td> <td>5.3 k /cumm</td> <td>5.0-10.0</td> </tr> <tr> <td> HEMOGLOBIN</td> <td>8.6 gm/dL</td> <td>12.0-16.0</td> < /tr> <tr> <td>HEMATOCRIT</td> <td>27.9 %</td> <td>37.0-47.0</td> </tr> <tr> <td>PLATELET COUNT</td > <td>168 k/cumm</td> <td>150-400</td> </tr> <tr > <th colspan="10">PROTHROMBIN TIME WITH INR - 10/11/16 06:00</th> </tr> <tr> <td>INTERNATIONAL NORMAL RATIO</td> <td> 1.9 </td> <td>0.9-1.1</td> </tr> <tr> <td> PROTHROMBIN TIME</td> <td>22.3 sec</td> <td>10.0-12.8</td> </tr> <tr> <th colspan="10">RENAL FUNCTION PANEL - 06:00</th> </tr> <tr> <td>POTASSIUM</td> <td> 3.7 mmol/L</td> <td>3.5-5.3</td> </tr> <tr> <td> EST GFR (MDRD)</td> <td>> 60 mL/min</td> <td>> 59</td> </tr> <tr> <td>ANION GAP</td> <td>9 mmol/L</td> <td>5-15</td> </tr> <tr> <td>EST CrCl (CG)</td > <td>> 60 mL/min</td> <td>> 59</td> </tr> <tr> <td>GLUCOSE</td> <td>99 mg/dL</td> <td>70-99</ td> </tr> <tr> <td>CALCIUM</td> <td>8.3 mg/dL</ td> <td>8.5-10.1</td> </tr> <tr> <td>BLOOD UREA NITROGEN</td> <td>12 mg/dL</td> <td>7-20</td> </tr> <tr> <td>CREATININE</td> <td>0.7 mg/dL</td> <td> 0.6-1.0</td> </tr> <tr> <td>SODIUM</td> <td>139 mmol/L</td> <td>135-148</td> </tr> <tr> <td> CHLORIDE</td> <td>105 mmol/L</td> <td>98-110</td> </tr > <tr> <td>CARBON DIOXIDE</td> <td>25 mmol/L</td> <td>21-32</td> </tr> <tr> <td>ALBUMIN</td> <td>2.2 gm/dL</td> <td>3.4-5.0</td> </tr> <tr> < td>PHOSPHORUS</td> <td>3.8 mg/dL</td> <td>2.5-4.9</td> </tr> <tr> <th colspan="10">MAGNESIUM - 10/11/16 06:00</th> </tr> <tr> <td>MAGNESIUM</td> <td>2.0 mg/dL</td> <td>1.8-2.4</td> </tr> <tr> <th colspan="10">C REACTIVE PROTEIN - 10/11/16 14:52</th> </tr> <tr> <td>C REACTIVE PROTEIN</td> <td>82.2 mg/L</td> <td>< 8.0</td> </tr> <tr> <th colspan="10">PROCALCITONIN - 10/11/16 14:52< /th> </tr> <tr> <td>PROCALCITONIN</td> <td>1.32 ng/mL</td> <td>< 0.25</td> </tr> <tr> <th colspan="10">SED RATE - 10/11/16 14:52</th> </tr> <tr> < td>SED RATE</td> <td>47 mm/hr</td> <td>0-15</td> </tr> <tr> <th colspan="10">CBC W/DIFF - 10/12/16 04:52</th> < /tr> <tr> <td>EOSINOPHIL #</td> <td>0.4 k/cumm</td> <td>0.1-0.5</td> </tr> <tr> <td>EOSINOPHIL %</ td> <td>7 %</td> <td>2-4</td> </tr> <tr> <td>GRANULOCYTE #</td> <td>3.0 k/cumm</td> <td>2.0-9.0< /td> </tr> <tr> <td>GRANULOCYTE %</td> <td> 54 %</td> <td>50-75</td> </tr> <tr> <td> LYMPHOCYTE #</td> <td>1.6 k/cumm</td> <td>1.0-4.0</td> </tr> <tr> <td>LYMPHOCYTE %</td> <td>29 %</td> <td>20-30</td> </tr> <tr> <td>MEAN CELL HGB</td > <td>28.6 pg</td> <td>27.0-33.0</td> </tr> <tr > <td>MEAN CELL HGB CONCENTRATION</td> <td>31.2 g/dL</td> <td>32.0-37.0</td> </tr> <tr> <td>MEAN CELL VOLUME< /td> <td>91.8 fl</td> <td>80.0-100.0</td> </tr> <tr> <td>MONOCYTE #</td> <td>0.5 k/cumm</td> <td>0.1- 1.0</td> </tr> <tr> <td>MONOCYTE %</td> <td> 10 %</td> <td>4-6</td> </tr> <tr> <td>MEAN PLATELET VOLUME</td> <td>9.9 fl</td> <td>8.5-10.9</td> </tr> <tr> <td>RED BLOOD CELL</td> <td>3.18 m/cumm</td > <td>4.00-6.00</td> </tr> <tr> <td>RED CELL DISTRIBUTION WIDTH</td> <td>15.6 %</td> <td>11.0-15.6</td > </tr> <tr> <td>WHITE BLOOD CELL</td> <td>5.5 k /cumm</td> <td>5.0-10.0</td> </tr> <tr> <td> HEMOGLOBIN</td> <td>9.1 gm/dL</td> <td>12.0-16.0</td> < /tr> <tr> <td>HEMATOCRIT</td> <td>29.2 %</td> <td>37.0-47.0</td> </tr> <tr> <td>PLATELET COUNT</td > <td>188 k/cumm</td> <td>150-400</td> </tr> <tr > <th colspan="10">PROTHROMBIN TIME WITH INR - 10/12/16 04:52</th> </tr> <tr> <td>INTERNATIONAL NORMAL RATIO</td> <td> 1.8 </td> <td>0.9-1.1</td> </tr> <tr> <td> PROTHROMBIN TIME</td> <td>20.3 sec</td> <td>10.0-12.8</td> </tr> <tr> <th colspan="10">METABOLIC PANEL, COMPREHN - 03/29 04:52</th> </tr> <tr> <td>POTASSIUM</td> < td>4.0 mmol/L</td> <td>3.5-5.3</td> </tr> <tr> < td>EST GFR (MDRD)</td> <td>> 60 mL/min</td> <td>> 59</td > </tr> <tr> <td>ANION GAP</td> <td>7 mmol/L</td > <td>5-15</td> </tr> <tr> <td>EST CrCl (CG)</td > <td>> 60 mL/min</td> <td>> 59</td> </tr> <tr> <td>GLUCOSE</td> <td>93 mg/dL</td> <td>70-99</ td> </tr> <tr> <td>CALCIUM</td> <td>8.6 mg/dL</ td> <td>8.5-10.1</td> </tr> <tr> <td>BLOOD UREA NITROGEN</td> <td>9 mg/dL</td> <td>7-20</td> </tr> <tr> <td>CREATININE</td> <td>0.7 mg/dL</td> <td> 0.6-1.0</td> </tr> <tr> <td>SODIUM</td> <td>140 mmol/L</td> <td>135-148</td> </tr> <tr> <td> CHLORIDE</td> <td>107 mmol/L</td> <td>98-110</td> </tr > <tr> <td>AST/SGOT</td> <td>26 Units/L</td> < td>10-37</td> </tr> <tr> <td>ALT/SGPT</td> <td> 33 Units/L</td> <td>< 66</td> </tr> <tr> <td> CARBON DIOXIDE</td> <td>26 mmol/L</td> <td>21-32</td> < /tr> <tr> <td>TOTAL PROTEIN</td> <td>5.8 gm/dL</td> <td>6.4-8.2</td> </tr> <tr> <td>ALBUMIN</td> <td>2.3 gm/dL</td> <td>3.4-5.0</td> </tr> <tr> <td>BILI TOTAL</td> <td>0.3 mg/dL</td> <td>0.0-1.0</td> </tr> <tr> <td>ALKALINE PHOSPHATASE TOTAL</td> < td>185 IU/L</td> <td>45-117</td> </tr> <tr> <th colspan="10">MAGNESIUM - 10/12/16 04:52</th> </tr> <tr> < td>MAGNESIUM</td> <td>2.0 mg/dL</td> <td>1.8-2.4</td> < /tr> <tr> <th colspan="10">CBC - 10/13/16 07:27</th> </tr > <tr> <td>MEAN CELL HGB</td> <td>28.3 pg</td> <td>27.0-33.0</td> </tr> <tr> <td>MEAN CELL HGB CONCENTRATION</td> <td>31.5 g/dL</td> <td>32.0-37.0</td> </tr> <tr> <td>MEAN CELL VOLUME</td> <td>89.9 fl</td > <td>80.0-100.0</td> </tr> <tr> <td>MEAN PLATELET VOLUME</td> <td>9.6 fl</td> <td>8.5-10.9</td> </tr> <tr> <td>RED BLOOD CELL</td> <td>3.46 m/cumm</td > <td>4.00-6.00</td> </tr> <tr> <td>RED CELL DISTRIBUTION WIDTH</td> <td>15.8 %</td> <td>11.0-15.6</td > </tr> <tr> <td>WHITE BLOOD CELL</td> <td>6.5 k /cumm</td> <td>5.0-10.0</td> </tr> <tr> <td> HEMOGLOBIN</td> <td>9.8 gm/dL</td> <td>12.0-16.0</td> < /tr> <tr> <td>HEMATOCRIT</td> <td>31.1 %</td> <td>37.0-47.0</td> </tr> <tr> <td>PLATELET COUNT</td > <td>220 k/cumm</td> <td>150-400</td> </tr> <tr > <th colspan="10">RENAL FUNCTION PANEL - 10/13/16 07:27</th> </ tr> <tr> <td>POTASSIUM</td> <td>3.5 mmol/L</td> <td>3.5-5.3</td> </tr> <tr> <td>EST GFR (MDRD)</td> <td>> 60 mL/min</td> <td>> 59</td> </tr> < tr> <td>ANION GAP</td> <td>9 mmol/L</td> <td>5-15</td > </tr> <tr> <td>EST CrCl (CG)</td> <td>> 60 mL/min</td> <td>> 59</td> </tr> <tr> <td> GLUCOSE</td> <td>91 mg/dL</td> <td>70-99</td> </tr> <tr> <td>CALCIUM</td> <td>8.3 mg/dL</td> <td>8.5 -10.1</td> </tr> <tr> <td>BLOOD UREA NITROGEN</td> <td>10 mg/dL</td> <td>7-20</td> </tr> <tr> < td>CREATININE</td> <td>0.5 mg/dL</td> <td>0.6-1.0</td> </tr> <tr> <td>SODIUM</td> <td>141 mmol/L</td> <td>135-148</td> </tr> <tr> <td>CHLORIDE</td> <td>104 mmol/L</td> <td>98-110</td> </tr> <tr> < td>CARBON DIOXIDE</td> <td>28 mmol/L</td> <td>21-32</td> </tr> <tr> <td>ALBUMIN</td> <td>2.2 gm/dL</td> <td>3.4-5.0</td> </tr> <tr> <td>PHOSPHORUS</td> <td>3.0 mg/dL</td> <td>2.5-4.9</td> </tr> <tr> < colspan="10">MAGNESIUM - 10/13/16 07:27</th> </tr> <tr> <td>MAGNESIUM</td> <td>1.8 mg/dL</td> <td>1.8-2.4</ td> </tr> <tr> < colspan="10">PROTHROMBIN TIME WITH INR - 10/13/16 12:43</th> </tr> <tr> <td>INTERNATIONAL NORMAL RATIO</td> <td>2.6 </td> <td>0.9-1.1</td> </tr> <tr> <td>PROTHROMBIN TIME</td> <td>29.5 sec</td> <td>10.0-12.8</td> </tr> <tr> <th colspan="10">CBC W /DIFF - 10/14/16 04:49</th> </tr> <tr> <td>EOSINOPHIL #</ td> <td>0.4 k/cumm</td> <td>0.1-0.5</td> </tr> < tr> <td>EOSINOPHIL %</td> <td>8 %</td> <td>2- 4</td> </tr> <tr> <td>GRANULOCYTE #</td> <td> 3.0 k/cumm</td> <td>2.0-9.0</td> </tr> <tr> <td> GRANULOCYTE %</td> <td>52 %</td> <td>50-75</td> </tr> <tr> <td>LYMPHOCYTE #</td> <td>1.8 k/cumm</td> <td>1.0-4.0</td> </tr> <tr> <td>LYMPHOCYTE &#37 ;</td> <td>31 %</td> <td>20-30</td> </tr> < tr> <td>MEAN CELL HGB</td> <td>28.1 pg</td> <td>27.0- 33.0</td> </tr> <tr> <td>MEAN CELL HGB CONCENTRATION</td > <td>31.0 g/dL</td> <td>32.0-37.0</td> </tr> < tr> <td>MEAN CELL VOLUME</td> <td>90.6 fl</td> <td> 80.0-100.0</td> </tr> <tr> <td>MONOCYTE #</td> < td>0.5 k/cumm</td> <td>0.1-1.0</td> </tr> <tr> < td>MONOCYTE %</td> <td>9 %</td> <td>4-6</td> </ tr> <tr> <td>MEAN PLATELET VOLUME</td> <td>9.9 fl</td> <td>8.5-10.9</td> </tr> <tr> <td>RED BLOOD CELL </td> <td>3.60 m/cumm</td> <td>4.00-6.00</td> </tr> <tr> <td>RED CELL DISTRIBUTION WIDTH</td> <td>15.8 %< /td> <td>11.0-15.6</td> </tr> <tr> <td>WHITE BLOOD CELL</td> <td>5.8 k/cumm</td> <td>5.0-10.0</td> < /tr> <tr> <td>HEMOGLOBIN</td> <td>10.1 gm/dL</td> <td>12.0-16.0</td> </tr> <tr> <td>HEMATOCRIT</td> <td>32.6 %</td> <td>37.0-47.0</td> </tr> <tr > <td>PLATELET COUNT</td> <td>243 k/cumm</td> <td>150 -400</td> </tr> <tr> <th colspan="10">PROTHROMBIN TIME WITH INR - 10/14/16 04:49</th> </tr> <tr> <td> INTERNATIONAL NORMAL RATIO</td> <td>2.9 </td> <td>0.9-1.1</td > </tr> <tr> <td>PROTHROMBIN TIME</td> <td>32.8 sec</td> <td>10.0-12.8</td> </tr> <tr> <th colspan="10">MAGNESIUM - 10/14/16 04:49</th> </tr> <tr> < td>MAGNESIUM</td> <td>2.0 mg/dL</td> <td>1.8-2.4</td> < /tr> <tr> <th colspan="10">C REACTIVE PROTEIN - 10/14/16 04:49</ th> </tr> <tr> <td>C REACTIVE PROTEIN</td> <td> 50.8 mg/L</td> <td>< 8.0</td> </tr> <tr> <th colspan="10">MRSA SURVEILLANCE SCREEN - 10/14/16 07:00</th> </tr> <tr> <td>Microbiology</td> <td> </td> <td /> < /tr> <tr> <th colspan="10">CBC W/DIFF - 10/15/16 06:02</th> </tr> <tr> <td>EOSINOPHIL #</td> <td>0.5 k/cumm</td > <td>0.1-0.5</td> </tr> <tr> <td>EOSINOPHIL &# 37;</td> <td>8 %</td> <td>2-4</td> </tr> <tr > <td>GRANULOCYTE #</td> <td>3.0 k/cumm</td> <td>2.0- 9.0</td> </tr> <tr> <td>GRANULOCYTE %</td> < td>50 %</td> <td>50-75</td> </tr> <tr> <td> LYMPHOCYTE #</td> <td>2.0 k/cumm</td> <td>1.0-4.0</td> </tr> <tr> <td>LYMPHOCYTE %</td> <td>34 %</td> <td>20-30</td> </tr> <tr> <td>MEAN CELL HGB</td > <td>28.2 pg</td> <td>27.0-33.0</td> </tr> <tr > <td>MEAN CELL HGB CONCENTRATION</td> <td>30.9 g/dL</td> <td>32.0-37.0</td> </tr> <tr> <td>MEAN CELL VOLUME< /td> <td>91.4 fl</td> <td>80.0-100.0</td> </tr> <tr> <td>MONOCYTE #</td> <td>0.4 k/cumm</td> <td>0.1- 1.0</td> </tr> <tr> <td>MONOCYTE %</td> <td> 7 %</td> <td>4-6</td> </tr> <tr> <td>MEAN PLATELET VOLUME</td> <td>9.4 fl</td> <td>8.5-10.9</td> </tr> <tr> <td>RED BLOOD CELL</td> <td>3.83 m/cumm</td > <td>4.00-6.00</td> </tr> <tr> <td>RED CELL DISTRIBUTION WIDTH</td> <td>15.8 %</td> <td>11.0-15.6</td > </tr> <tr> <td>WHITE BLOOD CELL</td> <td>5.9 k /cumm</td> <td>5.0-10.0</td> </tr> <tr> <td> HEMOGLOBIN</td> <td>10.8 gm/dL</td> <td>12.0-16.0</td> </tr> <tr> <td>HEMATOCRIT</td> <td>35.0 %</td> <td>37.0-47.0</td> </tr> <tr> <td>PLATELET COUNT</ td> <td>265 k/cumm</td> <td>150-400</td> </tr> < tr> < colspan="10">RENAL FUNCTION PANEL - 10/15/16 06:02</th> </tr> <tr> <td>POTASSIUM</td> <td>3.4 mmol/L</td> <td>3.5-5.3</td> </tr> <tr> <td>EST GFR (MDRD)</td> <td>> 60 mL/min</td> <td>> 59</td> </tr> <tr> <td>ANION GAP</td> <td>7 mmol/L</td> <td>5-15</ td> </tr> <tr> <td>EST CrCl (CG)</td> <td>> 60 mL/min</td> <td>> 59</td> </tr> <tr> <td> GLUCOSE</td> <td>84 mg/dL</td> <td>70-99</td> </tr> <tr> <td>CALCIUM</td> <td>8.9 mg/dL</td> <td>8.5 -10.1</td> </tr> <tr> <td>BLOOD UREA NITROGEN</td> <td>7 mg/dL</td> <td>7-20</td> </tr> <tr> < td>CREATININE</td> <td>0.4 mg/dL</td> <td>0.6-1.0</td> </tr> <tr> <td>SODIUM</td> <td>140 mmol/L</td> <td>135-148</td> </tr> <tr> <td>CHLORIDE</td> <td>101 mmol/L</td> <td>98-110</td> </tr> <tr> < td>CARBON DIOXIDE</td> <td>32 mmol/L</td> <td>21-32</td> </tr> <tr> <td>ALBUMIN</td> <td>2.4 gm/dL</td> <td>3.4-5.0</td> </tr> <tr> <td>PHOSPHORUS</td> <td>3.2 mg/dL</td> <td>2.5-4.9</td> </tr> <tr> < colspan="10">MAGNESIUM - 10/15/16 06:02</th> </tr> <tr> <td>MAGNESIUM</td> <td>2.0 mg/dL</td> <td>1.8-2.4</ td> </tr> <tr> < colspan="10">PROTHROMBIN TIME WITH INR - 10/15/16 06:02</th> </tr> <tr> <td>INTERNATIONAL NORMAL RATIO</td> <td>2.9 </td> <td>0.9-1.1</td> </tr> <tr> <td>PROTHROMBIN TIME</td> <td>33.4 sec</td> <td>10.0-12.8</td> </tr> <tr> < colspan="10"> PROTHROMBIN TIME WITH INR - 10/16/16 06:20</th> </tr> <tr> <td>INTERNATIONAL NORMAL RATIO</td> <td>3.0 </td> <td>0.9- 1.1</td> </tr> <tr> <td>PROTHROMBIN TIME</td> < td>34.9 sec</td> <td>10.0-12.8</td> </tr> <tr> < colspan="10">RENAL FUNCTION PANEL - 10/16/16 06:20</th> </tr> < tr> <td>POTASSIUM</td> <td>3.7 mmol/L</td> <td>3.5- 5.3</td> </tr> <tr> <td>EST GFR (MDRD)</td> <td> > 60 mL/min</td> <td>> 59</td> </tr> <tr> <td>ANION GAP</td> <td>14 mmol/L</td> <td>5-15</td> </ tr> <tr> <td>EST CrCl (CG)</td> <td>> 60 mL/min</td > <td>> 59</td> </tr> <tr> <td>GLUCOSE</td> <td>84 mg/dL</td> <td>70-99</td> </tr> <tr> <td>CALCIUM</td> <td>9.1 mg/dL</td> <td>8.5-10.1</td> </tr> <tr> <td>BLOOD UREA NITROGEN</td> <td>9 mg/ dL</td> <td>7-20</td> </tr> <tr> <td>CREATININE< /td> <td>0.5 mg/dL</td> <td>0.6-1.0</td> </tr> < tr> <td>SODIUM</td> <td>140 mmol/L</td> <td>135-148</ td> </tr> <tr> <td>CHLORIDE</td> <td>101 mmol/L< /td> <td>98-110</td> </tr> <tr> <td>CARBON DIOXIDE</td> <td>25 mmol/L</td> <td>21-32</td> </tr> <tr> <td>ALBUMIN</td> <td>2.5 gm/dL</td> <td> 3.4-5.0</td> </tr> <tr> <td>PHOSPHORUS</td> <td> 3.1 mg/dL</td> <td>2.5-4.9</td> </tr> <tr> < colspan="10">CBC W/DIFF - 10/17/16 06:22</th> </tr> <tr> <td>EOSINOPHIL #</td> <td>0.4 k/cumm</td> <td>0.1-0.5</td> </tr> <tr> <td>EOSINOPHIL %</td> <td>7 %</ td> <td>2-4</td> </tr> <tr> <td>GRANULOCYTE #</ td> <td>3.2 k/cumm</td> <td>2.0-9.0</td> </tr> < tr> <td>GRANULOCYTE %</td> <td>51 %</td> <td> 50-75</td> </tr> <tr> <td>LYMPHOCYTE #</td> <td> 2.2 k/cumm</td> <td>1.0-4.0</td> </tr> <tr> <td> LYMPHOCYTE %</td> <td>35 %</td> <td>20-30</td> </tr> <tr> <td>MEAN CELL HGB</td> <td>28.0 pg</td> <td>27.0-33.0</td> </tr> <tr> <td>MEAN CELL HGB CONCENTRATION</td> <td>30.9 g/dL</td> <td>32.0-37.0</td> </tr> <tr> <td>MEAN CELL VOLUME</td> <td>90.5 fl</td > <td>80.0-100.0</td> </tr> <tr> <td>MONOCYTE #< /td> <td>0.5 k/cumm</td> <td>0.1-1.0</td> </tr> <tr> <td>MONOCYTE %</td> <td>7 %</td> <td>4-6 </td> </tr> <tr> <td>MEAN PLATELET VOLUME</td> < td>9.4 fl</td> <td>8.5-10.9</td> </tr> <tr> <td> RED BLOOD CELL</td> <td>3.68 m/cumm</td> <td>4.00-6.00</td> </tr> <tr> <td>RED CELL DISTRIBUTION WIDTH</td> < td>15.9 %</td> <td>11.0-15.6</td> </tr> <tr> <td>WHITE BLOOD CELL</td> <td>6.2 k/cumm</td> <td>5.0-10.0</ td> </tr> <tr> <td>HEMOGLOBIN</td> <td>10.3 gm/ dL</td> <td>12.0-16.0</td> </tr> <tr> <td> HEMATOCRIT</td> <td>33.3 %</td> <td>37.0-47.0</td> </tr> <tr> <td>PLATELET COUNT</td> <td>301 k/cumm</td> <td>150-400</td> </tr> <tr> <th colspan="10"> PROTHROMBIN TIME WITH INR - 10/17/16 06:22</th> </tr> <tr> <td>INTERNATIONAL NORMAL RATIO</td> <td>2.8 </td> <td>0.9- 1.1</td> </tr> <tr> <td>PROTHROMBIN TIME</td> < td>31.7 sec</td> <td>10.0-12.8</td> </tr> <tr> < th colspan="10">RENAL FUNCTION PANEL - 10/17/16 06:22</th> </tr> < tr> <td>POTASSIUM</td> <td>3.5 mmol/L</td> <td>3.5- 5.3</td> </tr> <tr> <td>EST GFR (MDRD)</td> <td> > 60 mL/min</td> <td>> 59</td> </tr> <tr> <td>ANION GAP</td> <td>8 mmol/L</td> <td>5-15</td> </tr > <tr> <td>EST CrCl (CG)</td> <td>> 60 mL/min</td> <td>> 59</td> </tr> <tr> <td>GLUCOSE</td> <td>97 mg/dL</td> <td>70-99</td> </tr> <tr> <td>CALCIUM</td> <td>8.9 mg/dL</td> <td>8.5-10.1</td> </tr> <tr> <td>BLOOD UREA NITROGEN</td> <td>8 mg/dL </td> <td>7-20</td> </tr> <tr> <td>CREATININE</ td> <td>0.5 mg/dL</td> <td>0.6-1.0</td> </tr> < tr> <td>SODIUM</td> <td>141 mmol/L</td> <td>135-148</ td> </tr> <tr> <td>CHLORIDE</td> <td>102 mmol/L< /td> <td>98-110</td> </tr> <tr> <td>CARBON DIOXIDE</td> <td>31 mmol/L</td> <td>21-32</td> </tr> <tr> <td>ALBUMIN</td> <td>2.4 gm/dL</td> <td> 3.4-5.0</td> </tr> <tr> <td>PHOSPHORUS</td> <td> 3.1 mg/dL</td> <td>2.5-4.9</td> </tr> <tr> < colspan="10">MAGNESIUM - 10/17/16 06:22</th> </tr> <tr> < td>MAGNESIUM</td> <td>2.3 mg/dL</td> <td>1.8-2.4</td> < /tr> <tr> < colspan="10">Protime - 11/14/16 15:43</th> </tr> <tr> <td>INR</td> <td>1.9 </td> <td> 1.0-4.0</td> </tr> <tr> <td>Protime</td> <td> 22.5 Sec</td> <td>9.9-12.8</td> </tr> <tr> < colspan="10">Iron - 11/21/16 12:10</th> </tr> <tr> <td> Iron</td> <td>40 ug/dL</td> <td>70-200</td> </tr> <tr> < colspan="10">Protime - 12/05/16 14:30</th> </tr> <tr> <td>INR</td> <td>2.0 </td> <td>1.0-4.0</td > </tr> <tr> <td>Protime</td> <td>23.3 Sec</td> <td>9.9-12.8</td> </tr> <tr> < colspan="10"> Protime - 12/19/16 11:45</th> </tr> <tr> <td>INR</td> <td>2.0 </td> <td>1.0-4.0</td> </tr> <tr> <td>Protime</td> <td>23.4 Sec</td> <td>9.9-12.8</td> </tr> <tr> < colspan="10">Protime - 01/22/17 09:52</th> </tr> <tr> <td>INR</td> <td>3.2 </td> <td >1.0-4.0</td> </tr> <tr> <td>Protime</td> <td> 37.2 Sec</td> <td>9.9-12.8</td> </tr> <tr> < colspan="10">Protime - 02/07/17 10:03</th> </tr> <tr> < td>INR</td> <td>2.8 </td> <td>1.0-4.0</td> </tr> <tr> <td>Protime</td> <td>32.3 Sec</td> <td>9.9- 12.8</td> </tr> <tr> < colspan="10">Protime - 15:05</th> </tr> <tr> <td>INR</td> <td>2.3 </ td> <td>1.0-4.0</td> </tr> <tr> <td>Protime</td > <td>27.2 Sec</td> <td>9.9-12.8</td> </tr> <tr > < colspan="10">Blood Culture - 03/15/17 13:35</th> </tr> <tr> <td>PRELIM CULTURE RESULTS</td> <td>Blood Culture Negative, No Growth Day 1 </td> <td /> </tr> <tr> <td>FINAL CULTURE RESULTS</td> <td>Blood Culture Negative, No Growth Day 5 </td> <td /> </tr> <tr> <td>MEDIA PLATED</td> <td>Setup at 14:41 on 03/15/2017 Blood Culture Media Position a12 </td> <td /> </tr> <tr> <td> CULTURE SOURCE</td> <td>right side of neck </td> <td /> </tr> <tr> < colspan="10">Comprehensive Metabolic Panel - 13:35</th> </tr> <tr> <td>Albumin</td> < td>3.7 g/dL</td> <td>3.6-5.1</td> </tr> <tr> <td >ALP</td> <td>165 U/L</td> <td>35-130</td> </tr> <tr> <td>ALT</td> <td>46 U/L</td> <td>6-45</td> </tr> <tr> <td>Anion Gap</td> <td>15 </td> <td>6-14</td> </tr> <tr> <td>AST</td> <td>75 U/L</td> <td>2-40</td> </tr> <tr> <td>BUN</td> <td>14 mg/dL</td> <td>5-25</td> </tr> <tr> <td>Calcium</td> <td>8.4 mg/dL</td> <td>8.3-10.4</td> </tr> <tr> <td>Chloride</td> <td>103 mmol/L</td> <td>95-114</td> </tr> <tr> <td>CO2</td> <td>26 mEq/L</td> <td>22-33</td> </tr> <tr> < td>Creat</td> <td>0.72 mg/dL</td> <td>0.50-1.50</td> </ tr> <tr> <td>eGFR</td> <td>80 mL/min/1.73m2</td> <td>>59</td> </tr> <tr> <td>Globulin</td> <td>2.6 g/dL</td> <td>2.3-3.5</td> </tr> <tr> <td>Glucose</td> <td>83 mg/dL</td> <td>70-110</td> </tr > <tr> <td>Osmo</td> <td>289 </td> <td>280-295 </td> </tr> <tr> <td>Potassium</td> <td>3.8 mmol /L</td> <td>3.5-5.3</td> </tr> <tr> <td>Sodium</ td> <td>140 mmol/L</td> <td>134-148</td> </tr> < tr> <td>TBil</td> <td>0.7 mg/dL</td> <td>0.2-1.2</td > </tr> <tr> <td>TP</td> <td>6.3 g/dL</td> <td>6.0-8.3</td> </tr> <tr> <th colspan="10">Blood Culture - 03/15/17 13:35</th> </tr> <tr> <td>PRELIM CULTURE RESULTS</td> <td>Blood Culture Negative, No Growth Day 1 </td> <td /> </tr> <tr> <td>MEDIA PLATED</td> <td>Setup at 14:41 on 03/15/2017 Blood Culture Media Position a12 </td> <td /> </tr> <tr> <td>CULTURE SOURCE</td> <td >right side of neck </td> <td /> </tr> <tr> <th colspan="10">Blood Culture - 03/15/17 13:46</th> </tr> <tr> <td>PRELIM CULTURE RESULTS</td> <td>Blood Culture Negative, No Growth Day 1 </td> <td /> </tr> <tr> <td>FINAL CULTURE RESULTS</td> <td>Blood Culture Negative, No Growth Day 5 </td> <td /> </tr> <tr> <td>MEDIA PLATED</td> <td>Setup at 14:41 on 03/15/2017 Blood Culture Media Position A11 </td> <td /> </tr> <tr> <td>CULTURE SOURCE</td> <td >picc line in neck right side </td> <td /> </tr> <tr> <th colspan="10">Lactic Acid - 03/15/17 13:46</th> </tr> < tr> <td>Lactic Acid</td> <td>5.3 mg/dL</td> <td>4.5- 19.8</td> </tr> <tr> < colspan="10">Blood Culture - 04/27 13:46</th> </tr> <tr> <td>PRELIM CULTURE RESULTS</ td> <td>Blood Culture Negative, No Growth Day 1 </td> <td /> </tr> <tr> <td>MEDIA PLATED</td> <td>Setup at 14 :41 on 03/15/2017 Blood Culture Media Position A11 </td> <td /> </ tr> <tr> <td>CULTURE SOURCE</td> <td>picc line in neck right side </td> <td /> </tr> <tr> < colspan= "10">Urine Culture - 03/15/17 18:35</th> </tr> <tr> <td> FINAL CULTURE RESULTS</td> <td><10,000 Gram Positive and Gram Negative [id number] Further Workup done </td> <td /> </tr> < tr> <td>MEDIA PLATED</td> <td>Setup at 18:55 on 03/15/2017 </td > <td /> </tr> <tr> <td>CULTURE SOURCE</td> <td>voided urine </td> <td /> </tr> <tr> < colspan="10">Urinalysis - 03/15/17 18:35</th> </tr> <tr> <td>Icotest</td> <td>N/A </td> <td>Negative</td> </ tr> <tr> <td>Urine Crystals</td> <td>Amorphous material : abundant/HPF </td> <td /> </tr> <tr> <td> Urine Volume</td> <td>Urine Volume Sufficient (10mL) </td> < td /> </tr> <tr> <td>Urine-Appearance</td> <td> Turbid </td> <td>Clear</td> </tr> <tr> <td>Urine -Bacteria</td> <td>Trace </td> <td> </td> </tr> <tr> <td>Urine-Bilirubin</td> <td>Negative </td> <td> Negative</td> </tr> <tr> <td>Urine-Blood</td> < td>Trace-lysed </td> <td>Negative</td> </tr> <tr> <td>Urine-Color</td> <td>Yellow </td> <td>Colorless-Lt. Yellow</td> </tr> <tr> <td>Urine-Epithelial Cells</td> <td>0-5/HPF </td> <td> </td> </tr> <tr> <td>Urine-Glucose</td> <td>Negative </td> <td>Negative</td> </tr> <tr> <td>Urine-Ketones</td> <td>Negative </ td> <td>Negative</td> </tr> <tr> <td>Urine- Leukocytes</td> <td>1+ </td> <td>Negative</td> </tr> <tr> <td>Urine-Nitrite</td> <td>Negative </td> <td>Negative</td> </tr> <tr> <td>Urine-Other</td> <td>Culture to follow </td> <td> </td> </tr> <tr> <td>Urine-pH</td> <td>8.5 </td> <td>5-8.5</td> </ tr> <tr> <td>Urine-Protein</td> <td>Negative </td> <td>Negative</td> </tr> <tr> <td>Urine-RBC</td> <td>0-2/HPF </td> <td> </td> </tr> <tr> < td>Urine-Specific [place]</td> <td>1.015 </td> <td>1.000-1.030 </td> </tr> <tr> <td>Urine-WBC</td> <td>5-10/ HPF </td> <td> </td> </tr> <tr> <td>Urobilinogen </td> <td>0.2 </td> <td>0.2-1.0</td> </tr> <tr> <th colspan="10">Comprehensive Metabolic Panel - 03/16/17 05:25</th> </tr> <tr> <td>Albumin</td> <td>3.3 g/dL</td> <td>3.6-5.1</td> </tr> <tr> <td>ALP</td> <td>149 U/L</td> <td>35-130</td> </tr> <tr> < td>ALT</td> <td>37 U/L</td> <td>6-45</td> </tr> <tr> <td>Anion Gap</td> <td>14 </td> <td>6-14</td> </tr> <tr> <td>AST</td> <td>45 U/L</td> <td>2-40</td> </tr> <tr> <td>BUN</td> <td>9 mg/ dL</td> <td>5-25</td> </tr> <tr> <td>Calcium</td > <td>8.2 mg/dL</td> <td>8.3-10.4</td> </tr> <tr > <td>Chloride</td> <td>105 mmol/L</td> <td>95-114</ td> </tr> <tr> <td>CO2</td> <td>26 mEq/L</td> <td>22-33</td> </tr> <tr> <td>Creat</td> <td>0.68 mg/dL</td> <td>0.50-1.50</td> </tr> <tr> <td>eGFR</td> <td>86 mL/min/1.73m2</td> <td>>59</td> </tr> <tr> <td>Globulin</td> <td>2.4 g/dL</td> <td>2.3-3.5</td> </tr> <tr> <td>Glucose</td> <td>96 mg/dL</td> <td>70-110</td> </tr> <tr> <td>Osmo</td> <td>290 </td> <td>280-295</td> </tr > <tr> <td>Potassium</td> <td>3.9 mmol/L</td> <td>3.5-5.3</td> </tr> <tr> <td>Sodium</td> <td> 141 mmol/L</td> <td>134-148</td> </tr> <tr> <td> TBil</td> <td>0.6 mg/dL</td> <td>0.2-1.2</td> </tr> <tr> <td>TP</td> <td>5.7 g/dL</td> <td>6.0-8.3</ td> </tr> <tr> < colspan="10">Protime - 03/17/17 05:25 </th> </tr> <tr> <td>INR</td> <td>1.9 </td> <td>1.0-4.0</td> </tr> <tr> <td>Protime</td> <td>22.5 Sec</td> <td>9.9-12.8</td> </tr> <tr> < colspan="10">BNP - 03/18/17 07:20</th> </tr> <tr> <td>BNP</td> <td>18.90 pg/ml</td> <td>0.00-100.00</td> </tr> <tr> < colspan="10">Protime - 03/18/17 07:20</th> </tr> <tr> <td>INR</td> <td>2.2 </td> < td>1.0-4.0</td> </tr> <tr> <td>Protime</td> <td> 26.0 Sec</td> <td>9.9-12.8</td> </tr> <tr> < colspan="[place]">Protime - 03/19/17 05:16</th> </tr> <tr> < td>INR</td> <td>2.5 </td> <td>1.0-4.0</td> </tr> <tr> <td>Protime</td> <td>29.4 Sec</td> <td>9.9- 12.8</td> </tr> <tr> < colspan="10">Protime - 05:25</th> </tr> <tr> <td>INR</td> <td>2.8 </ td> <td>1.0-4.0</td> </tr> <tr> <td>Protime</td > <td>32.7 Sec</td> <td>9.9-12.8</td> </tr> <tr > < colspan="[place]">BMP - 03/20/17 06:50</th> </tr> <tr> <td>Anion Gap</td> <td>16 </td> <td>6-14</td> </tr> <tr> <td>BUN</td> <td>8 mg/dL</td> <td>5 -25</td> </tr> <tr> <td>Calcium</td> <td>9.2 mg/ dL</td> <td>8.3-10.4</td> </tr> <tr> <td> Chloride</td> <td>106 mmol/L</td> <td>95-114</td> </tr > <tr> <td>CO2</td> <td>27 mEq/L</td> <td>22- 33</td> </tr> <tr> <td>Creat</td> <td>0.72 mg/dL </td> <td>0.50-1.50</td> </tr> <tr> <td>eGFR</td > <td>80 mL/min/1.73m2</td> <td>>59</td> </tr> <tr> <td>Glucose</td> <td>89 mg/dL</td> <td>70-110 </td> </tr> <tr> <td>Osmo</td> <td>297 </td> <td>280-295</td> </tr> <tr> <td>Potassium</td> <td>4.2 mmol/L</td> <td>3.5-5.3</td> </tr> <tr> <td>Sodium</td> <td>145 mmol/L</td> <td>134-148</td> </tr> <tr> < colspan="10">Protime - 03/21/17 05:50</th > </tr> <tr> <td>INR</td> <td>3.0 </td> <td>1.0-4.0</td> </tr> <tr> <td>Protime</td> < td>34.5 Sec</td> <td>9.9-12.8</td> </tr> <tr> < th colspan="10">Protime - 03/27/17 14:59</th> </tr> <tr> <td>INR</td> <td>5.[address] Vasquez </td> <td>1.0- 4.0</td> </tr> <tr> <td>Protime</td> <td>56.0 Sec</td> <td>9.9-12.8</td> </tr> <tr> < colspan="10">Protime - 03/29/17 11:34</th> </tr> <tr> < td>INR</td> <td>2.7 </td> <td>1.0-4.0</td> </tr> <tr> <td>Protime</td> <td>31.1 Sec</td> <td>9.9- 12.8</td> </tr> <tr> < colspan="10">iStat BNP - 12:07</th> </tr> <tr> <td>i-STAT BNP</td> <td ><15.00 pg/mL</td> <td>0.00-50.00</td> </tr> <tr> < colspan="10">Influenza - 04/03/17 12:08</th> </tr> <tr> <td>Influenza</td> <td>POSITIVE FOR A </td> <td>0.00 -0.00</td> </tr> <tr> < colspan="10">Blood Culture - 12:08</th> </tr> <tr> <td>PRELIM CULTURE RESULTS</ td> <td>Blood Culture Negative, No Growth Day 1 </td> <td /> </tr> <tr> <td>FINAL CULTURE RESULTS</td> <td> Blood Culture Negative, No Growth Day 5 </td> <td /> </tr> <tr> <td>MEDIA PLATED</td> <td>Setup at 12:50 on 04/03/2017 , Blood Culture Media Position C45 </td> <td /> </tr> <tr > <td>CULTURE SOURCE</td> <td>Left AC </td> <td /> </tr> <tr> <th colspan="10">Blood Culture - 04/03/17 12:08 </th> </tr> <tr> <td>PRELIM CULTURE RESULTS</td> <td>Blood Culture Negative, No Growth Day 1 </td> <td /> </tr > <tr> <td>FINAL CULTURE RESULTS</td> <td>Blood Culture Negative, No Growth Day 5 </td> <td /> </tr> <tr > <td>MEDIA PLATED</td> <td>Setup at 12:51 on 04/03/2017, Blood Culture Media Position C41 </td> <td /> </tr> <tr> <td>CULTURE SOURCE</td> <td>right hand, bcul#2 </td> <td /> </tr> <tr> < colspan="10">Urinalysis - 14:20</th> </tr> <tr> <td>Icotest</td> <td>N/ A </td> <td>Negative</td> </tr> <tr> <td>Urine Volume</td> <td>Urine Volume Sufficient (10mL) </td> <td /> </tr> <tr> <td>Urine Yeast</td> <td>No Yeast present </td> <td /> </tr> <tr> <td>Urine- Appearance</td> <td>Clear </td> <td>Clear</td> </tr> <tr> <td>Urine-Bacteria</td> <td>Trace </td> < td> </td> </tr> <tr> <td>Urine-Bilirubin</td> < td>Negative </td> <td>Negative</td> </tr> <tr> < td>Urine-Blood</td> <td>Negative </td> <td>Negative</td> </tr> <tr> <td>Urine-Color</td> <td>Yellow </td> <td>Colorless-Lt. Yellow</td> </tr> <tr> <td>Urine -Epithelial Cells</td> <td>0-5/HPF </td> <td> </td> </ tr> <tr> <td>Urine-Glucose</td> <td>Negative </td> <td>Negative</td> </tr> <tr> <td>Urine-Ketones</td > <td>Negative </td> <td>Negative</td> </tr> <tr > <td>Urine-Leukocytes</td> <td>Negative </td> <td> Negative</td> </tr> <tr> <td>Urine-Nitrite</td> <td>Negative </td> <td>Negative</td> </tr> <tr> <td>Urine-Other</td> <td> Urine Saved if Culture Needed (48hrs from time of collection) </td> <td> </td> </tr> <tr> <td>Urine-pH</td> <td>8.0 </td> <td>5-8.5</td> </tr> <tr> <td>Urine-Protein</td> <td>Negative </td> <td>Negative</td> </tr> <tr> <td>Urine-RBC</td> <td>Rare/HPF </td> <td> </td> </tr> <tr> <td> Urine-Specific [place]</td> <td>1.020 </td> <td>1.000-1.030</ td> </tr> <tr> <td>Urine-WBC</td> <td>Negative < /td> <td> </td> </tr> <tr> <td>Urobilinogen</td > <td>0.2 E.U./dL </td> <td>0.2-1.0</td> </tr> < tr> < colspan="10">Protime - 04/04/17 06:22</th> </tr> <tr> <td>INR</td> <td>1.7 </td> <td>1.0-4.0</td> </tr> <tr> <td>Protime</td> <td>19.7 Sec</td> <td>9.9-12.8</td> </tr> <tr> < colspan="10"> Protime - 04/05/17 06:43</th> </tr> <tr> <td>INR</td> <td>1.7 </td> <td>1.0-4.0</td> </tr> <tr> <td>Protime</td> <td>20.3 Sec</td> <td>9.9-12.8</td> </tr> <tr> < colspan="10">Protime - 04/17/17 13:37</th> </tr> <tr> <td>INR</td> <td>2.0 </td> <td >1.0-4.0</td> </tr> <tr> <td>Protime</td> <td> 23.5 Sec</td> <td>9.9-12.8</td> </tr> <tr> < colspan="10">Urinalysis - 04/21/17 13:47</th> </tr> <tr> <td>Icotest</td> <td>N/A </td> <td>Negative</td> </tr> <tr> <td>Urine Volume</td> <td>Urine Volume Sufficient (10mL) </td> <td /> </tr> <tr> <td> Urine Yeast</td> <td>No Yeast present </td> <td /> </tr > <tr> <td>Urine-Appearance</td> <td>Clear </td> <td>Clear</td> </tr> <tr> <td>Urine-Bacteria</td> <td>Trace </td> <td> </td> </tr> <tr> <td >Urine-Bilirubin</td> <td>Negative </td> <td>Negative</td> </tr> <tr> <td>Urine-Blood</td> <td>Trace-lysed </ td> <td>Negative</td> </tr> <tr> <td>Urine-Color </td> <td>Yellow </td> <td>Colorless-Lt. Yellow</td> </ tr> <tr> <td>Urine-Epithelial Cells</td> <td>0-5/HPF </ td> <td> </td> </tr> <tr> <td>Urine-Glucose</td > <td>Negative </td> <td>Negative</td> </tr> <tr > <td>Urine-Ketones</td> <td>Negative </td> <td> Negative</td> </tr> <tr> <td>Urine-Leukocytes</td> <td>Negative </td> <td>Negative</td> </tr> <tr> <td>Urine-Nitrite</td> <td>Negative </td> <td>Negative</ td> </tr> <tr> <td>Urine-Other</td> <td> Urine Saved if Culture Needed (48hrs from time of collection) </td> <td> </td > </tr> <tr> <td>Urine-pH</td> <td>6.0 </td> <td>5-8.5</td> </tr> <tr> <td>Urine-Protein</td> <td>Negative </td> <td>Negative</td> </tr> <tr> <td>Urine-RBC</td> <td>Rare/HPF </td> <td> </td> </tr> <tr> <td>Urine-Specific [place]</td> <td> 1.015 </td> <td>1.000-1.030</td> </tr> <tr> <td> Urine-WBC</td> <td>Negative </td> <td> </td> </tr> <tr> <td>Urobilinogen</td> <td>0.2 E.U./dL </td> <td>0.2-1.0</td> </tr> <tr> < colspan="10">Protime - 05/06/17 14:12</> </tr> <tr> <td>INR</td> <td> 2.1 </td> <td>1.0-4.0</td> </tr> <tr> <td> Protime</td> <td>24.6 Sec</td> <td>9.9-12.8</td> </tr> <tr> < colspan="10">Sed Rate - 06/12/17 16:05</th> </ tr> <tr> <td>Sed Rate</td> <td>27 mm/hr</td> < td>9-15</td> </tr> <tr> < colspan="10">Protime - 07/18 17:55</th> </tr> <tr> <td>INR</td> <td>2.5 < /td> <td>1.0-4.0</td> </tr> <tr> <td>Protime</td > <td>29.1 Sec</td> <td>9.9-12.8</td> </tr> <tr > < colspan="10">iStat Protime - 07/25/17 01:15</th> </tr> <tr> <td>INR</td> <td>2.3 </td> <td>1.0-4.0</td > </tr> <tr> <td>Protime</td> <td>26.9 Sec</td> <td>11.0-13.0</td> </tr> <tr> < colspan="10"> Comprehensive Metabolic Panel - 07/25/17 01:15</th> </tr> <tr> <td>Albumin</td> <td>3.6 g/dL</td> <td>3.6-5.1</td> </tr> <tr> <td>ALP</td> <td>117 U/L</td> <td>35-130</td> </tr> <tr> <td>ALT</td> <td>26 U /L</td> <td>6-45</td> </tr> <tr> <td>Anion Gap</ td> <td>20 </td> <td>6-14</td> </tr> <tr> <td>AST</td> <td>47 U/L</td> <td>2-40</td> </tr> <tr> <td>BUN</td> <td>12 mg/dL</td> <td>5-25</ td> </tr> <tr> <td>Calcium</td> <td>8.9 mg/dL</ td> <td>8.3-10.4</td> </tr> <tr> <td>Chloride</ td> <td>103 mmol/L</td> <td>95-114</td> </tr> < tr> <td>CO2</td> <td>24 mEq/L</td> <td>22-33</td> </tr> <tr> <td>Creat</td> <td>0.66 mg/dL</td> <td>0.50-1.50</td> </tr> <tr> <td>eGFR</td> <td>89 mL/min/1.73m2</td> <td>>59</td> </tr> <tr> <td>Globulin</td> <td>2.8 g/dL</td> <td>2.3-3.5</td> </tr> <tr> <td>Glucose</td> <td>89 mg/dL</td> <td>70-110</td> </tr> <tr> <td>Osmo</td> <td>294 </td> <td>280-295</td> </tr> <tr> <td >Potassium</td> <td>4.0 mmol/L</td> <td>3.5-5.3</td> </ tr> <tr> <td>Sodium</td> <td>143 mmol/L</td> < td>134-148</td> </tr> <tr> <td>TBil</td> <td> 0.6 mg/dL</td> <td>0.2-1.2</td> </tr> <tr> <td> TP</td> <td>6.4 g/dL</td> <td>6.0-8.3</td> </tr> <tr> < colspan="10">Urinalysis - 07/25/17 01:36</th> </tr> <tr> <td>Icotest</td> <td>N/A </td> <td> Negative</td> </tr> <tr> <td>Urine Volume</td> < td>Urine Volume Sufficient (10mL) </td> <td /> </tr> <tr > <td>Urine-Appearance</td> <td>Clear </td> <td>Clear </td> </tr> <tr> <td>Urine-Bacteria</td> <td> Rare </td> <td> </td> </tr> <tr> <td>Urine- Bilirubin</td> <td>Negative </td> <td>Negative</td> </ tr> <tr> <td>Urine-Blood</td> <td>Trace-intact </td> <td>Negative</td> </tr> <tr> <td>Urine-Color</td > <td>Yellow </td> <td>Colorless-Lt. Yellow</td> </tr> <tr> <td>Urine-Epithelial Cells</td> <td>0-5/HPF </td > <td> </td> </tr> <tr> <td>Urine-Glucose</td> <td>Negative </td> <td>Negative</td> </tr> <tr> <td>Urine-Ketones</td> <td>Negative </td> <td> Negative</td> </tr> <tr> <td>Urine-Leukocytes</td> <td>Negative </td> <td>Negative</td> </tr> <tr> <td>Urine-Nitrite</td> <td>Negative </td> <td>Negative</ td> </tr> <tr> <td>Urine-Other</td> <td> Urine Saved if Culture Needed (48hrs from time of collection) </td> <td> </td > </tr> <tr> <td>Urine-pH</td> <td>8.5 </td> <td>5-8.5</td> </tr> <tr> <td>Urine-Protein</td> <td>Negative </td> <td>Negative</td> </tr> <tr> <td>Urine-RBC</td> <td>1-3/HPF </td> <td> </td> </tr> <tr> <td>Urine-Specific [place]</td> <td> 1.020 </td> <td>1.000-1.030</td> </tr> <tr> <td> Urine-WBC</td> <td>2-5/HPF </td> <td> </td> </tr> <tr> <td>Urobilinogen</td> <td>0.2 </td> <td>0.2- 1.0</td> </tr> <tr> <th colspan="10">[facility] - 07/25/17 06:55 </th> </tr> <tr> <td>Anion Gap</td> <td>15 </td > <td>6-14</td> </tr> <tr> <td>BUN</td> <td>9 mg/dL</td> <td>5-25</td> </tr> <tr> <td> Calcium</td> <td>8.2 mg/dL</td> <td>8.3-10.4</td> </tr > <tr> <td>Chloride</td> <td>107 mmol/L</td> < td>95-114</td> </tr> <tr> <td>CO2</td> <td>24 mEq/L</td> <td>22-33</td> </tr> <tr> <td>Creat</ td> <td>0.59 mg/dL</td> <td>0.50-1.50</td> </tr> <tr> <td>eGFR</td> <td>101 mL/min/1.73m2</td> <td>& gt;59</td> </tr> <tr> <td>Glucose</td> <td>108 mg/dL</td> <td>70-110</td> </tr> <tr> <td>Osmo</ td> <td>292 </td> <td>280-295</td> </tr> <tr> <td>Potassium</td> <td>3.6 mmol/L</td> <td>3.5-5.3</td > </tr> <tr> <td>Sodium</td> <td>142 mmol/L</td > <td>134-148</td> </tr> <tr> <th colspan="10"> Protime - 07/26/17 07:00</th> </tr> <tr> <td>INR</td> <td>1.4 </td> <td>1.0-4.0</td> </tr> <tr> <td>Protime</td> <td>16.6 Sec</td> <td>9.9-12.8</td> </tr> <tr> <th colspan="10">MRSA Screen - 07/26/17 19:02</th> </tr> <tr> <td>FINAL CULTURE RESULTS</td> <td> MRSA Negative Nasal Culture </td> <td /> </tr> <tr> <td>MEDIA PLATED</td> <td>Setup at 19:22 on 07/26/2017 </td> <td /> </tr> <tr> <th colspan="10">Protime - 07:00</th> </tr> <tr> <td>INR</td> <td>1.4 </ td> <td>1.0-4.0</td> </tr> <tr> <td>Protime</td > <td>16.9 Sec</td> <td>9.9-12.8</td> </tr> <tr > < colspan="10">iStat Protime - 07/31/17 09:26</th> </tr> <tr> <td>INR</td> <td>3.9 </td> <td>1.0-4.0</td > </tr> <tr> <td>Protime</td> <td>43.5 Sec</td> <td>11.0-13.0</td> </tr> <tr> < colspan="10"> Protime - 08/02/17 14:02</th> </tr> <tr> <td>INR</td> <td>2.5 </td> <td>1.0-4.0</td> </tr> <tr> <td>Protime</td> <td>28.7 Sec</td> <td>9.9-12.8</td> </tr> <tr> < colspan="10">CBC W/DIFF - 08/05/17 15:05</th> </tr> <tr> <td>BASOPHIL #</td> <td>0.1 k/cumm</ td> <td>0.0-0.2</td> </tr> <tr> <td>BASOPHIL &# 37;</td> <td>0.8 %</td> <td>0-1</td> </tr> < tr> <td>EOSINOPHIL #</td> <td>0.1 k/cumm</td> <td>0.1 -0.5</td> </tr> <tr> <td>EOSINOPHIL %</td> < td>1.8 %</td> <td>2-4</td> </tr> <tr> <td> GRANULOCYTE #</td> <td>5.3 k/cumm</td> <td>2.0-9.0</td> </tr> <tr> <td>GRANULOCYTE %</td> <td>72.8 %< /td> <td>50-75</td> </tr> <tr> <td>LYMPHOCYTE #< /td> <td>1.3 k/cumm</td> <td>1.0-4.0</td> </tr> <tr> <td>LYMPHOCYTE %</td> <td>17.3 %</td> < td>20-30</td> </tr> <tr> <td>MEAN CELL HGB</td> <td>27.6 pg</td> <td>27.0-33.0</td> </tr> <tr> < td>MEAN CELL HGB CONCENTRATION</td> <td>30.2 g/dL</td> <td> 32.0-37.0</td> </tr> <tr> <td>MEAN CELL VOLUME</td> <td>91.7 fl</td> <td>80.0-100.0</td> </tr> <tr> <td>MONOCYTE #</td> <td>0.5 k/cumm</td> <td>0.1-1.0</td > </tr> <tr> <td>MONOCYTE %</td> <td>6.9 &# 37;</td> <td>4-6</td> </tr> <tr> <td>MEAN PLATELET VOLUME</td> <td>10.6 fl</td> <td>8.5-10.9</td> </tr> <tr> <td>RED BLOOD CELL</td> <td>4.34 m/cumm</ td> <td>4.00-6.00</td> </tr> <tr> <td>RED CELL DISTRIBUTION WIDTH</td> <td>16.2 %</td> <td>11.0-15.6</td > </tr> <tr> <td>WHITE BLOOD CELL</td> <td>7.3 k /cumm</td> <td>5.0-10.0</td> </tr> <tr> <td> HEMOGLOBIN</td> <td>12.0 gm/dL</td> <td>12.0-16.0</td> </tr> <tr> <td>HEMATOCRIT</td> <td>39.8 %</td> <td>37.0-47.0</td> </tr> <tr> <td>NRBC %</td> <td>0.0 /100 WBC</td> <td>0.0-0.0</td> </tr> <tr > <td>PLATELET COUNT</td> <td>258 k/cumm</td> <td>150 -400</td> </tr> <tr> <td>IMMATURE GRANULOCYTE %</td> <td>0.4 %</td> <td>0.0-0.6</td> </tr> <tr> <td>IMMATURE GRANULOCYTE #</td> <td>0.03 k/cumm</td> <td>0.00-0.09</td> </tr> <tr> <th colspan="10">[facility] - 08/05/17 15:05</th> </tr> <tr> <td>SED RATE [facility]</td> <td>29 mm/hr</td> <td>0-30</td> </ tr> <tr> <th colspan="10">PROTHROMBIN TIME WITH INR - 08/05/17 15:05</th> </tr> <tr> <td>INTERNATIONAL NORMAL RATIO</td > <td>1.7 </td> <td>0.9-1.1</td> </tr> <tr> <td>PROTHROMBIN TIME</td> <td>19.9 sec</td> <td>10.0- 12.8</td> </tr> <tr> < colspan="10">PARTIAL THROMBOPLASTIN TIME - 08/05/17 15:05</th> </tr> <tr> <td> PARTIAL THROMBOPLASTIN TIME</td> <td>35 sec</td> <td>24-36</td > </tr> <tr> <th colspan="10">METABOLIC PANEL, COMPREHN - 08/05/17 15:05</th> </tr> <tr> <td>POTASSIUM</td> <td>4.2 mmol/L</td> <td>3.5-5.3</td> </tr> <tr> <td>EST GFR (MDRD)</td> <td>> 60 mL/min</td> <td>&gt ; 59</td> </tr> <tr> <td>ANION GAP</td> <td>6 mmol/L</td> <td>5-15</td> </tr> <tr> <td>GLUCOSE </td> <td>106 mg/dL</td> <td>70-99</td> </tr> < tr> <td>CALCIUM</td> <td>9.2 mg/dL</td> <td>8.5-10.1< /td> </tr> <tr> <td>BLOOD UREA NITROGEN</td> <td >14 mg/dL</td> <td>7-20</td> </tr> <tr> <td> CREATININE</td> <td>0.7 mg/dL</td> <td>0.6-1.0</td> </ tr> <tr> <td>SODIUM</td> <td>144 mmol/L</td> < td>135-148</td> </tr> <tr> <td>CHLORIDE</td> <td >108 mmol/L</td> <td>98-110</td> </tr> <tr> <td> AST/SGOT</td> <td>19 Units/L</td> <td>10-37</td> </tr> <tr> <td>ALT/SGPT</td> <td>19 Units/L</td> < td>< 66</td> </tr> <tr> <td>CARBON DIOXIDE</td> <td>30 mmol/L</td> <td>21-32</td> </tr> <tr> <td>TOTAL PROTEIN</td> <td>7.7 gm/dL</td> <td>6.4-8.2</td> </tr> <tr> <td>ALBUMIN</td> <td>3.4 gm/dL</td> <td>3.4-5.0</td> </tr> <tr> <td>BILI TOTAL</td> <td>0.4 mg/dL</td> <td>0.0-1.0</td> </tr> <tr> <td>ALKALINE PHOSPHATASE TOTAL</td> <td>125 IU/L</td> <td>45-117</td> </tr> <tr> <th colspan="10">C REACTIVE PROTEIN - 08/05/17 15:05</th> </tr> <tr> <td>C REACTIVE PROTEIN</td> <td>8.8 mg/L</td> <td>< 8.0</td> </tr> <tr> <th colspan="10">MRSA SURVEILLANCE SCREEN - 08/05 15:12</th> </tr> <tr> <td>Microbiology</td> <td> </td> <td /> </tr> <tr> <th colspan="10"> URINALYSIS, ROUTINE - 08/05/17 15:20</th> </tr> <tr> <td> UA LEUKOCYTE ESTERASE DIPSTICK</td> <td>NEGATIVE </td> <td> NEGATIVE</td> </tr> <tr> <td>UA NITRITE DIPSTICK</td> <td>NEGATIVE </td> <td>NEGATIVE</td> </tr> <tr> <td>UA PROTEIN DIPSTICK</td> <td>NEGATIVE </td> <td> NEGATIVE</td> </tr> <tr> <td>UA GLUCOSE DIPSTICK</td> <td>NEGATIVE </td> <td>NEGATIVE</td> </tr> <tr> <td>UA KETONE DIPSTICK</td> <td>NEGATIVE </td> <td> NEGATIVE</td> </tr> <tr> <td>UA UROBILINOGEN DIPSTICK</td > <td>NORMAL </td> <td>NORMAL</td> </tr> <tr> <td>UA BILIRUBIN DIPSTICK</td> <td>NEGATIVE </td> <td> NEGATIVE</td> </tr> <tr> <td>UA BLOOD DIPSTICK</td> <td>NEGATIVE </td> <td>NEGATIVE</td> </tr> <tr> <td>UA SPECIFIC GRAVITY</td> <td>1.016 </td> <td>1.015- 1.025</td> </tr> <tr> <td>UR PH</td> <td>>= 9.0 </td> <td>5.0-7.0</td> </tr> <tr> <th colspan="10">PROTHROMBIN TIME WITH INR - 08/25/17 11:19</th> </tr> <tr> <td>INTERNATIONAL NORMAL RATIO</td> <td>1.5 </td> <td>0.9-1.1</td> </tr> <tr> <td>PROTHROMBIN TIME</td > <td>16.6 sec</td> <td>10.0-12.8</td> </tr> <tr > <th colspan="10">POTASSIUM - 08/25/17 11:19</th> </tr> <tr> <td>POTASSIUM</td> <td>3.7 mmol/L</td> <td>3.5- 5.3</td> </tr> <tr> <th colspan="10">CBC - 08/26/17 05:54 </th> </tr> <tr> <td>MEAN CELL HGB</td> <td> 27.7 pg</td> <td>27.0-33.0</td> </tr> <tr> <td> MEAN CELL HGB CONCENTRATION</td> <td>30.3 g/dL</td> <td>32.0- 37.0</td> </tr> <tr> <td>MEAN CELL VOLUME</td> < td>91.6 fl</td> <td>80.0-100.0</td> </tr> <tr> < td>MEAN PLATELET VOLUME</td> <td>10.4 fl</td> <td>8.5-10.9</td > </tr> <tr> <td>RED BLOOD CELL</td> <td>3.32 m/ cumm</td> <td>4.00-6.00</td> </tr> <tr> <td>RED CELL DISTRIBUTION WIDTH</td> <td>16.6 %</td> <td>11.0-15.6 </td> </tr> <tr> <td>WHITE BLOOD CELL</td> <td> 5.5 k/cumm</td> <td>5.0-10.0</td> </tr> <tr> <td >HEMOGLOBIN</td> <td>9.2 gm/dL</td> <td>12.0-16.0</td> </tr> <tr> <td>HEMATOCRIT</td> <td>30.4 %</td> <td>37.0-47.0</td> </tr> <tr> <td>NRBC %</td> <td>0.0 /100 WBC</td> <td>0.0-0.0</td> </tr> <tr > <td>PLATELET COUNT</td> <td>179 k/cumm</td> <td>150 -400</td> </tr> <tr> <th colspan="10">PROTHROMBIN TIME WITH INR - 08/26/17 05:54</th> </tr> <tr> <td> INTERNATIONAL NORMAL RATIO</td> <td>1.6 </td> <td>0.9-1.1</td > </tr> <tr> <td>PROTHROMBIN TIME</td> <td>18.5 sec</td> <td>10.0-12.8</td> </tr> <tr> <th colspan="10">METABOLIC PANEL, COMPREHN - 08/26/17 05:54</th> </tr> <tr> <td>POTASSIUM</td> <td>3.9 mmol/L</td> <td>3.5 -5.3</td> </tr> <tr> <td>EST GFR (MDRD)</td> <td >> 60 mL/min</td> <td>> 59</td> </tr> <tr> <td>ANION GAP</td> <td>6 mmol/L</td> <td>5-15</td> </ tr> <tr> <td>EST CrCl (CG)</td> <td>> 60 mL/min</td > <td>> 59</td> </tr> <tr> <td>GLUCOSE</td> <td>87 mg/dL</td> <td>70-99</td> </tr> <tr> <td>CALCIUM</td> <td>7.9 mg/dL</td> <td>8.5-10.1</td> </tr> <tr> <td>BLOOD UREA NITROGEN</td> <td>10 mg /dL</td> <td>7-20</td> </tr> <tr> <td>CREATININE </td> <td>0.6 mg/dL</td> <td>0.6-1.0</td> </tr> <tr> <td>SODIUM</td> <td>142 mmol/L</td> <td>135-148< /td> </tr> <tr> <td>CHLORIDE</td> <td>108 mmol/L </td> <td>98-110</td> </tr> <tr> <td>AST/SGOT</ td> <td>36 Units/L</td> <td>10-37</td> </tr> <tr > <td>ALT/SGPT</td> <td>23 Units/L</td> <td>< 66</ td> </tr> <tr> <td>CARBON DIOXIDE</td> <td>28 mmol/L</td> <td>21-32</td> </tr> <tr> <td>TOTAL PROTEIN</td> <td>5.4 gm/dL</td> <td>6.4-8.2</td> </tr> <tr> <td>ALBUMIN</td> <td>2.4 gm/dL</td> <td> 3.4-5.0</td> </tr> <tr> <td>BILI TOTAL</td> <td> 0.6 mg/dL</td> <td>0.0-1.0</td> </tr> <tr> <td> ALKALINE PHOSPHATASE TOTAL</td> <td>85 IU/L</td> <td>45-117</ td> </tr> <tr> <th colspan="10">PROTHROMBIN TIME WITH INR - 08/27/17 04:52</th> </tr> <tr> <td>INTERNATIONAL NORMAL RATIO</td> <td>2.4 </td> <td>0.9-1.1</td> </tr> <tr> <td>PROTHROMBIN TIME</td> <td>27.5 sec</td> <td>10.0-12.8</td> </tr> <tr> <th colspan="10"> PROTHROMBIN TIME WITH INR - 08/28/17 05:55</th> </tr> <tr> <td>INTERNATIONAL NORMAL RATIO</td> <td>1.9 </td> <td>0.9- 1.1</td> </tr> <tr> <td>PROTHROMBIN TIME</td> < td>21.8 sec</td> <td>10.0-12.8</td> </tr> <tr> < colspan="10">PROTHROMBIN TIME WITH INR - 11/03/17 05:08</th> </tr> <tr> <td>INTERNATIONAL NORMAL RATIO</td> <td>1.2 </td> <td>0.9-1.1</td> </tr> <tr> <td>PROTHROMBIN TIME< /td> <td>13.6 sec</td> <td>10.0-12.8</td> </tr> <tr> < colspan="10">MRSA SURVEILLANCE SCREEN - 11/03/17 05:08</th> </tr> <tr> <td>Microbiology</td> <td> </td> <td /> </tr> <tr> < colspan="10">PROTHROMBIN TIME WITH INR - 11/04/17 05:10</th> </tr> <tr> <td> INTERNATIONAL NORMAL RATIO</td> <td>1.2 </td> <td>0.9-1.1</td > </tr> <tr> <td>PROTHROMBIN TIME</td> <td>14.0 sec</td> <td>10.0-12.8</td> </tr> <tr> < colspan="10">CBC - 11/04/17 05:10</th> </tr> <tr> <td> MEAN CELL HGB</td> <td>29.3 pg</td> <td>27.0-33.0</td> </tr> <tr> <td>MEAN CELL HGB CONCENTRATION</td> <td> 31.8 g/dL</td> <td>32.0-37.0</td> </tr> <tr> <td >MEAN CELL VOLUME</td> <td>92.0 fl</td> <td>80.0-100.0</td> </tr> <tr> <td>MEAN PLATELET VOLUME</td> <td> 10.1 fl</td> <td>8.5-10.9</td> </tr> <tr> <td> RED BLOOD CELL</td> <td>3.11 m/cumm</td> <td>4.00-6.00</td> </tr> <tr> <td>RED CELL DISTRIBUTION WIDTH</td> < td>16.5 %</td> <td>11.0-15.6</td> </tr> <tr> <td>WHITE BLOOD CELL</td> <td>7.7 k/cumm</td> <td>5.0-10.0</ td> </tr> <tr> <td>HEMOGLOBIN</td> <td>9.1 gm/dL </td> <td>12.0-16.0</td> </tr> <tr> <td> HEMATOCRIT</td> <td>28.6 %</td> <td>37.0-47.0</td> </tr> <tr> <td>NRBC %</td> <td>0.0 /100 WBC</td> <td>0.0-0.0</td> </tr> <tr> <td>PLATELET COUNT</ td> <td>115 k/cumm</td> <td>150-400</td> </tr> < tr> <td>IMMATURE PLATELET FRACTION</td> <td>2.9 %</td> <td>1.1-6.1</td> </tr> <tr> <th colspan="10"> METABOLIC PANEL, COMPREHN - 11/04/17 05:10</th> </tr> <tr> <td>POTASSIUM</td> <td>4.3 mmol/L</td> <td>3.5-5.3</td> </tr> <tr> <td>EST GFR (MDRD)</td> <td>> 60 mL/ min</td> <td>> 59</td> </tr> <tr> <td>ANION GAP</td> <td>7 mmol/L</td> <td>5-15</td> </tr> < tr> <td>EST CrCl (CG)</td> <td>> 60 mL/min</td> < td>> 59</td> </tr> <tr> <td>GLUCOSE</td> <td> 89 mg/dL</td> <td>70-99</td> </tr> <tr> <td> CALCIUM</td> <td>8.3 mg/dL</td> <td>8.5-10.1</td> </tr > <tr> <td>BLOOD UREA NITROGEN</td> <td>15 mg/dL</td> <td>7-20</td> </tr> <tr> <td>CREATININE</td> <td>0.7 mg/dL</td> <td>0.6-1.0</td> </tr> <tr> <td>SODIUM</td> <td>142 mmol/L</td> <td>135-148</td> </tr> <tr> <td>CHLORIDE</td> <td>109 mmol/L</td> <td>98-110</td> </tr> <tr> <td>AST/SGOT</td> <td>38 Units/L</td> <td>10-37</td> </tr> <tr> <td>ALT/SGPT</td> <td>42 Units/L</td> <td>< 66</td> </tr> <tr> <td>CARBON DIOXIDE</td> <td>26 mmol/ L</td> <td>21-32</td> </tr> <tr> <td>TOTAL PROTEIN</td> <td>5.8 gm/dL</td> <td>6.4-8.2</td> </tr> <tr> <td>ALBUMIN</td> <td>2.7 gm/dL</td> <td> 3.4-5.0</td> </tr> <tr> <td>BILI TOTAL</td> <td> 0.3 mg/dL</td> <td>0.0-1.0</td> </tr> <tr> <td> ALKALINE PHOSPHATASE TOTAL</td> <td>121 IU/L</td> <td>45-117</ td> </tr> <tr> < colspan="10">CBC - 11/05/17 05:15</th > </tr> <tr> <td>MEAN CELL HGB</td> <td>29.7 pg< /td> <td>27.0-33.0</td> </tr> <tr> <td>MEAN CELL HGB CONCENTRATION</td> <td>31.2 g/dL</td> <td>32.0-37.0</ td> </tr> <tr> <td>MEAN CELL VOLUME</td> <td> 95.4 fl</td> <td>80.0-100.0</td> </tr> <tr> <td> MEAN PLATELET VOLUME</td> <td>10.6 fl</td> <td>8.5-10.9</td> </tr> <tr> <td>RED BLOOD CELL</td> <td>3.06 m/ cumm</td> <td>4.00-6.00</td> </tr> <tr> <td>RED CELL DISTRIBUTION WIDTH</td> <td>17.5 %</td> <td>11.0-15.6 </td> </tr> <tr> <td>WHITE BLOOD CELL</td> <td> 8.6 k/cumm</td> <td>5.0-10.0</td> </tr> <tr> <td >HEMOGLOBIN</td> <td>9.1 gm/dL</td> <td>12.0-16.0</td> </tr> <tr> <td>HEMATOCRIT</td> <td>29.2 %</td> <td>37.0-47.0</td> </tr> <tr> <td>NRBC %</td> <td>0.0 /100 WBC</td> <td>0.0-0.0</td> </tr> <tr > <td>PLATELET COUNT</td> <td>123 k/cumm</td> <td>150 -400</td> </tr> <tr> <td>IMMATURE PLATELET FRACTION</td> <td>2.3 %</td> <td>1.1-6.1</td> </tr> <tr> <th colspan="10">PROTHROMBIN TIME WITH INR - 11/05/17 05:30</th> </tr> <tr> <td>INTERNATIONAL NORMAL RATIO</td> <td> 1.8 </td> <td>0.9-1.1</td> </tr> <tr> <td> PROTHROMBIN TIME</td> <td>21.0 sec</td> <td>10.0-12.8</td> </tr> <tr> <th colspan="10">GLUCOSE (POC) - 11/05/17 15:36< /th> </tr> <tr> <td>GLUCOSE (POC)</td> <td>123 mg/dL</td> <td>70-99</td> </tr> <tr> <th colspan ="10">ARTERIAL BLOOD GAS - 11/05/17 16:27</th> </tr> <tr> <td>ABG BASE EXCESS</td> <td>0.7 meq/L</td> <td>-3.0-3.0</td > </tr> <tr> <td>ABG BICARBONATE</td> <td>24.9 meq/L</td> <td>23.0-28.0</td> </tr> <tr> <td> ABG PCO2</td> <td>38 mm Hg</td> <td>34-45</td> </tr> <tr> <td>ABG PH</td> <td>7.44 </td> <td>7.35- 7.45</td> </tr> <tr> <td>ABG PO2</td> <td>76 mm Hg</td> <td>75-100</td> </tr> <tr> <td>ABG O2 SATURATION</td> <td>96 %</td> <td>93-100</td> </tr > <tr> < colspan="10">BLOOD CULTURE - 11/05/17 16:54</th> </tr> <tr> <td>Microbiology</td> <td> </td> <td /> </tr> <tr> < colspan="10">BLOOD CULTURE - 16:54</th> </tr> <tr> <td>Microbiology</td> <td> </td> <td /> </tr> <tr> < colspan="10 ">LACTIC ACID - 11/05/17 16:55</th> </tr> <tr> <td> LACTIC ACID</td> <td>1.6 mmol/L</td> <td>0.5-2.0</td> < /tr> <tr> < colspan="10">CBC - 11/05/17 16:55</th> </tr > <tr> <td>MEAN CELL HGB</td> <td>30.1 pg</td> <td>27.0-33.0</td> </tr> <tr> <td>MEAN CELL HGB CONCENTRATION</td> <td>31.4 g/dL</td> <td>32.0-37.0</td> </tr> <tr> <td>MEAN CELL VOLUME</td> <td>95.8 fl</td > <td>80.0-100.0</td> </tr> <tr> <td>MEAN PLATELET VOLUME</td> <td>10.7 fl</td> <td>8.5-10.9</td> </tr> <tr> <td>RED BLOOD CELL</td> <td>3.12 m/cumm</ td> <td>4.00-6.00</td> </tr> <tr> <td>RED CELL DISTRIBUTION WIDTH</td> <td>17.5 %</td> <td>11.0-15.6</td > </tr> <tr> <td>WHITE BLOOD CELL</td> <td>6.7 k /cumm</td> <td>5.0-10.0</td> </tr> <tr> <td> HEMOGLOBIN</td> <td>9.4 gm/dL</td> <td>12.0-16.0</td> < /tr> <tr> <td>HEMATOCRIT</td> <td>29.9 %</td> <td>37.0-47.0</td> </tr> <tr> <td>NRBC %</td> <td>0.0 /100 WBC</td> <td>0.0-0.0</td> </tr> <tr > <td>PLATELET COUNT</td> <td>116 k/cumm</td> <td>150 -400</td> </tr> <tr> <td>IMMATURE PLATELET FRACTION</td> <td>2.6 %</td> <td>1.1-6.1</td> </tr> <tr> <th colspan="10">METABOLIC PANEL, COMPREHN - 11/05/17 16:55</th> </tr> <tr> <td>POTASSIUM</td> <td>4.3 mmol/L</td> <td>3.5-5.3</td> </tr> <tr> <td>EST GFR (MDRD)</ td> <td>26 mL/min</td> <td>> 59</td> </tr> < tr> <td>ANION GAP</td> <td>7 mmol/L</td> <td>5-15</td > </tr> <tr> <td>EST CrCl (CG)</td> <td>27 mL/ min</td> <td>> 59</td> </tr> <tr> <td>GLUCOSE </td> <td>116 mg/dL</td> <td>70-99</td> </tr> < tr> <td>CALCIUM</td> <td>8.7 mg/dL</td> <td>8.5-10.1< /td> </tr> <tr> <td>BLOOD UREA NITROGEN</td> <td >27 mg/dL</td> <td>7-20</td> </tr> <tr> <td> CREATININE</td> <td>1.9 mg/dL</td> <td>0.6-1.0</td> </ tr> <tr> <td>SODIUM</td> <td>135 mmol/L</td> < td>135-148</td> </tr> <tr> <td>CHLORIDE</td> <td >103 mmol/L</td> <td>98-110</td> </tr> <tr> <td> AST/SGOT</td> <td>471 Units/L</td> <td>10-37</td> </tr > <tr> <td>ALT/SGPT</td> <td>258 Units/L</td> <td>< 66</td> </tr> <tr> <td>CARBON DIOXIDE</td> <td>25 mmol/L</td> <td>21-32</td> </tr> <tr> <td>TOTAL PROTEIN</td> <td>6.9 gm/dL</td> <td>6.4-8.2</td> </tr> <tr> <td>ALBUMIN</td> <td>3.1 gm/dL</td> <td>3.4-5.0</td> </tr> <tr> <td>BILI TOTAL</td > <td>0.6 mg/dL</td> <td>0.0-1.0</td> </tr> <tr > <td>ALKALINE PHOSPHATASE TOTAL</td> <td>269 IU/L</td> <td>45-117</td> </tr> <tr> <th colspan="10"> PROTHROMBIN TIME WITH INR - 11/06/17 04:53</th> </tr> <tr> <td>INTERNATIONAL NORMAL RATIO</td> <td>1.6 </td> <td>0.9- 1.1</td> </tr> <tr> <td>PROTHROMBIN TIME</td> < td>17.9 sec</td> <td>10.0-12.8</td> </tr> <tr> < th colspan="10">METABOLIC PANEL, COMPREHN - 11/06/17 10:06</th> </tr> <tr> <td>POTASSIUM</td> <td>4.2 mmol/L</td> <td> 3.5-5.3</td> </tr> <tr> <td>EST GFR (MDRD)</td> <td>34 mL/min</td> <td>> 59</td> </tr> <tr> < td>ANION GAP</td> <td>4 mmol/L</td> <td>5-15</td> </tr > <tr> <td>EST CrCl (CG)</td> <td>36 mL/min</td> <td>> 59</td> </tr> <tr> <td>GLUCOSE</td> <td>91 mg/dL</td> <td>70-99</td> </tr> <tr> < td>CALCIUM</td> <td>8.2 mg/dL</td> <td>8.5-10.1</td> </ tr> <tr> <td>BLOOD UREA NITROGEN</td> <td>28 mg/dL</td > <td>7-20</td> </tr> <tr> <td>CREATININE</td> <td>1.5 mg/dL</td> <td>0.6-1.0</td> </tr> <tr> <td>SODIUM</td> <td>138 mmol/L</td> <td>135-148</td> </tr> <tr> <td>CHLORIDE</td> <td>108 mmol/L</td > <td>98-110</td> </tr> <tr> <td>AST/SGOT</td> <td>118 Units/L</td> <td>10-37</td> </tr> <tr> <td>ALT/SGPT</td> <td>157 Units/L</td> <td>< 66</ td> </tr> <tr> <td>CARBON DIOXIDE</td> <td>26 mmol/L</td> <td>21-32</td> </tr> <tr> <td>TOTAL PROTEIN</td> <td>5.5 gm/dL</td> <td>6.4-8.2</td> </tr> <tr> <td>ALBUMIN</td> <td>2.4 gm/dL</td> <td> 3.4-5.0</td> </tr> <tr> <td>BILI TOTAL</td> <td> 0.4 mg/dL</td> <td>0.0-1.0</td> </tr> <tr> <td> ALKALINE PHOSPHATASE TOTAL</td> <td>182 IU/L</td> <td>45-117</ td> </tr> <tr> <th colspan="10">TROPONIN I - 11/06/17 10: 06</th> </tr> <tr> <td>TROPONIN I</td> <td>< 0.02 ng/mL</td> <td>< 0.07</td> </tr> <tr> < colspan="10">CBC - 11/07/17 04:11</th> </tr> <tr> <td> MEAN CELL HGB</td> <td>29.7 pg</td> <td>27.0-33.0</td> </tr> <tr> <td>MEAN CELL HGB CONCENTRATION</td> <td> 31.5 g/dL</td> <td>32.0-37.0</td> </tr> <tr> <td >MEAN CELL VOLUME</td> <td>94.2 fl</td> <td>80.0-100.0</td> </tr> <tr> <td>MEAN PLATELET VOLUME</td> <td> 11.2 fl</td> <td>8.5-10.9</td> </tr> <tr> <td> RED BLOOD CELL</td> <td>2.76 m/cumm</td> <td>4.00-6.00</td> </tr> <tr> <td>RED CELL DISTRIBUTION WIDTH</td> < td>16.9 %</td> <td>11.0-15.6</td> </tr> <tr> <td>WHITE BLOOD CELL</td> <td>5.4 k/cumm</td> <td>5.0-10.0</ td> </tr> <tr> <td>HEMOGLOBIN</td> <td>8.2 gm/dL </td> <td>12.0-16.0</td> </tr> <tr> <td> HEMATOCRIT</td> <td>26.0 %</td> <td>37.0-47.0</td> </tr> <tr> <td>NRBC %</td> <td>0.0 /100 WBC</td> <td>0.0-0.0</td> </tr> <tr> <td>PLATELET COUNT</ td> <td>114 k/cumm</td> <td>150-400</td> </tr> < tr> <td>IMMATURE PLATELET FRACTION</td> <td>3.3 %</td> <td>1.1-6.1</td> </tr> <tr> <th colspan="10"> METABOLIC PANEL, BASIC - 11/07/17 04:11</th> </tr> <tr> < td>POTASSIUM</td> <td>4.1 mmol/L</td> <td>3.5-5.3</td> </tr> <tr> <td>EST GFR (MDRD)</td> <td>49 mL/min</td> <td>> 59</td> </tr> <tr> <td>ANION GAP</td> <td>5 mmol/L</td> <td>5-15</td> </tr> <tr> <td>EST CrCl (CG)</td> <td>49 mL/min</td> <td>> 59</td > </tr> <tr> <td>GLUCOSE</td> <td>93 mg/dL</td> <td>70-99</td> </tr> <tr> <td>CALCIUM</td> <td>8.6 mg/dL</td> <td>8.5-10.1</td> </tr> <tr> <td>BLOOD UREA NITROGEN</td> <td>26 mg/dL</td> <td>7-20 </td> </tr> <tr> <td>CREATININE</td> <td>1.1 mg/ dL</td> <td>0.6-1.0</td> </tr> <tr> <td>SODIUM</ td> <td>139 mmol/L</td> <td>135-148</td> </tr> < tr> <td>CHLORIDE</td> <td>110 mmol/L</td> <td>98-110< /td> </tr> <tr> <td>CARBON DIOXIDE</td> <td>24 mmol/L</td> <td>21-32</td> </tr> <tr> < colspan="10">PROTHROMBIN TIME WITH INR - 11/07/17 11:10</th> </tr> <tr> <td>INTERNATIONAL NORMAL RATIO</td> <td>1.4 </td> <td>0.9-1.1</td> </tr> <tr> <td>PROTHROMBIN TIME</td > <td>16.2 sec</td> <td>10.0-12.8</td> </tr> <tr > < colspan="10">CBC - 11/08/17 06:22</th> </tr> <tr> <td>MEAN CELL HGB</td> <td>30.1 pg</td> <td>27.0-33.0 </td> </tr> <tr> <td>MEAN CELL HGB CONCENTRATION</td> <td>31.3 g/dL</td> <td>32.0-37.0</td> </tr> <tr> <td>MEAN CELL VOLUME</td> <td>96.1 fl</td> <td>80.0- 100.0</td> </tr> <tr> <td>MEAN PLATELET VOLUME</td> <td>11.0 fl</td> <td>8.5-10.9</td> </tr> <tr> <td>RED BLOOD CELL</td> <td>2.56 m/cumm</td> <td>4.00-6.00 </td> </tr> <tr> <td>RED CELL DISTRIBUTION WIDTH</td> <td>16.7 %</td> <td>11.0-15.6</td> </tr> <tr> <td>WHITE BLOOD CELL</td> <td>4.2 k/cumm</td> <td> 5.0-10.0</td> </tr> <tr> <td>HEMOGLOBIN</td> <td >7.7 gm/dL</td> <td>12.0-16.0</td> </tr> <tr> < td>HEMATOCRIT</td> <td>24.6 %</td> <td>37.0-47.0</td> </tr> <tr> <td>NRBC %</td> <td>0.0 /100 WBC</td > <td>0.0-0.0</td> </tr> <tr> <td>PLATELET COUNT </td> <td>122 k/cumm</td> <td>150-400</td> </tr> <tr> <td>IMMATURE PLATELET FRACTION</td> <td>3.4 %</td> <td>1.1-6.1</td> </tr> <tr> <th colspan="10"> METABOLIC PANEL, BASIC - 11/08/17 06:22</th> </tr> <tr> < td>POTASSIUM</td> <td>3.9 mmol/L</td> <td>3.5-5.3</td> </tr> <tr> <td>EST GFR (MDRD)</td> <td>> 60 mL/min</ td> <td>> 59</td> </tr> <tr> <td>ANION GAP</ td> <td>9 mmol/L</td> <td>5-15</td> </tr> <tr> <td>EST CrCl (CG)</td> <td>> 60 mL/min</td> <td>& gt; 59</td> </tr> <tr> <td>GLUCOSE</td> <td>84 mg/dL</td> <td>70-99</td> </tr> <tr> <td>CALCIUM </td> <td>7.7 mg/dL</td> <td>8.5-10.1</td> </tr> <tr> <td>BLOOD UREA NITROGEN</td> <td>22 mg/dL</td> <td>7-20</td> </tr> <tr> <td>CREATININE</td> < td>0.7 mg/dL</td> <td>0.6-1.0</td> </tr> <tr> < td>SODIUM</td> <td>147 mmol/L</td> <td>135-148</td> </ tr> <tr> <td>CHLORIDE</td> <td>112 mmol/L</td> <td>98-110</td> </tr> <tr> <td>CARBON DIOXIDE</td> <td>26 mmol/L</td> <td>21-32</td> </tr> <tr> <th colspan="10">PROTHROMBIN TIME WITH INR - 11/08/17 08:31</th> </tr > <tr> <td>INTERNATIONAL NORMAL RATIO</td> <td>1.6 </td > <td>0.9-1.1</td> </tr> <tr> <td>PROTHROMBIN TIME</td> <td>18.8 sec</td> <td>10.0-12.8</td> </tr> <tr> <th colspan="10">CBC - 11/09/17 06:14</th> </tr> <tr> <td>MEAN CELL HGB</td> <td>29.3 pg</td> <td> 27.0-33.0</td> </tr> <tr> <td>MEAN CELL HGB CONCENTRATION </td> <td>31.0 g/dL</td> <td>32.0-37.0</td> </tr> <tr> <td>MEAN CELL VOLUME</td> <td>94.5 fl</td> < td>80.0-100.0</td> </tr> <tr> <td>MEAN PLATELET VOLUME</ td> <td>10.7 fl</td> <td>8.5-10.9</td> </tr> <tr > <td>RED BLOOD CELL</td> <td>2.73 m/cumm</td> <td> 4.00-6.00</td> </tr> <tr> <td>RED CELL DISTRIBUTION WIDTH </td> <td>16.5 %</td> <td>11.0-15.6</td> </tr> <tr> <td>WHITE BLOOD CELL</td> <td>4.4 k/cumm</td> <td>5.0-10.0</td> </tr> <tr> <td>HEMOGLOBIN</td> <td>8.0 gm/dL</td> <td>12.0-16.0</td> </tr> <tr> <td>HEMATOCRIT</td> <td>25.8 %</td> <td>37.0-47.0</ td> </tr> <tr> <td>NRBC %</td> <td>0.0 /100 WBC</td> <td>0.0-0.0</td> </tr> <tr> <td> PLATELET COUNT</td> <td>137 k/cumm</td> <td>150-400</td> </tr> <tr> <td>IMMATURE PLATELET FRACTION</td> <td> 2.8 %</td> <td>1.1-6.1</td> </tr> <tr> <th colspan="10">PROTHROMBIN TIME WITH INR - 11/09/17 06:14</th> </tr> <tr> <td>INTERNATIONAL NORMAL RATIO</td> <td>1.9 </td> <td>0.9-1.1</td> </tr> <tr> <td>PROTHROMBIN TIME</td > <td>21.6 sec</td> <td>10.0-12.8</td> </tr> <tr > <th colspan="10">ARTERIAL BLOOD GAS - 11/09/17 08:45</th> </tr > <tr> <td>ABG BASE EXCESS</td> <td>2.3 meq/L</td> <td>-3.0-3.0</td> </tr> <tr> <td>ABG BICARBONATE</ td> <td>24.9 meq/L</td> <td>23.0-28.0</td> </tr> <tr> <td>ABG PCO2</td> <td>31 mm Hg</td> <td>34-45< /td> </tr> <tr> <td>ABG PH</td> <td>7.52 </td> <td>7.35-7.45</td> </tr> <tr> <td>ABG PO2</td> <td>68 mm Hg</td> <td>75-100</td> </tr> <tr> <td>ABG O2 SATURATION</td> <td>94 %</td> <td>93-100 </td> </tr> <tr> <th colspan="10">TROPONIN I - 11/09/17 08:55</th> </tr> <tr> <td>TROPONIN I</td> <td>& lt; 0.02 ng/mL</td> <td>< 0.07</td> </tr> <tr> <th colspan="10">TROPONIN I - 11/09/17 16:45</th> </tr> <tr> <td>TROPONIN I</td> <td>< 0.02 ng/mL</td> <td>< 0.07</td> </tr> <tr> <th colspan="10">ARTERIAL BLOOD GAS - 11/09/17 17:20</th> </tr> <tr> <td>ABG BASE EXCESS</td > <td>2.1 meq/L</td> <td>-3.0-3.0</td> </tr> <tr > <td>ABG BICARBONATE</td> <td>26.7 meq/L</td> <td> 23.0-28.0</td> </tr> <tr> <td>ABG L/M</td> <td> 2.0 </td> <td /> </tr> <tr> <td>ABG PCO2</td> <td>41 mm Hg</td> <td>34-45</td> </tr> <tr> <td>ABG PH</td> <td>7.43 </td> <td>7.35-7.45</td> </tr> <tr> <td>ABG PO2</td> <td>69 mm Hg</td> <td>75-100</td> </tr> <tr> <td>ABG O2 SATURATION</td> <td>93 %</td> <td>93-100</td> </tr> <tr> < colspan="10">CBC - 11/10/17 05:28</th> </tr> <tr> <td>MEAN CELL HGB</td> <td>29.5 pg</td> <td>27.0-33.0</td> </tr> <tr> <td>MEAN CELL HGB CONCENTRATION</td> <td>31.3 g/dL</td> <td>32.0-37.0</td> </tr> <tr> <td>MEAN CELL VOLUME</td> <td>94.4 fl</td> <td>80.0-100.0< /td> </tr> <tr> <td>MEAN PLATELET VOLUME</td> < td>10.5 fl</td> <td>8.5-10.9</td> </tr> <tr> <td >RED BLOOD CELL</td> <td>2.88 m/cumm</td> <td>4.00-6.00</td> </tr> <tr> <td>RED CELL DISTRIBUTION WIDTH</td> <td>16.3 %</td> <td>11.0-15.6</td> </tr> <tr> <td>WHITE BLOOD CELL</td> <td>4.2 k/cumm</td> <td>5.0-10.0< /td> </tr> <tr> <td>HEMOGLOBIN</td> <td>8.5 gm/ dL</td> <td>12.0-16.0</td> </tr> <tr> <td> HEMATOCRIT</td> <td>27.2 %</td> <td>37.0-47.0</td> </tr> <tr> <td>NRBC %</td> <td>0.0 /100 WBC</td> <td>0.0-0.0</td> </tr> <tr> <td>PLATELET COUNT</ td> <td>160 k/cumm</td> <td>150-400</td> </tr> < tr> <th colspan="10">PROTHROMBIN TIME WITH INR - 11/10/17 05:28</th> </tr> <tr> <td>INTERNATIONAL NORMAL RATIO</td> < td>1.7 </td> <td>0.9-1.1</td> </tr> <tr> <td> PROTHROMBIN TIME</td> <td>19.8 sec</td> <td>10.0-12.8</td> </tr> <tr> <th colspan="10">METABOLIC PANEL, COMPREHN - 02/27 14:00</th> </tr> <tr> <td>POTASSIUM</td> < td>4.9 mmol/L</td> <td>3.5-5.3</td> </tr> <tr> < td>EST GFR (MDRD)</td> <td>> 60 mL/min</td> <td>> 59</td > </tr> <tr> <td>ANION GAP</td> <td>7 mmol/L</td > <td>5-15</td> </tr> <tr> <td>EST CrCl (CG)</td > <td>> 60 mL/min</td> <td>> 59</td> </tr> <tr> <td>GLUCOSE</td> <td>108 mg/dL</td> <td>70-99< /td> </tr> <tr> <td>CALCIUM</td> <td>8.4 mg/dL</ td> <td>8.5-10.1</td> </tr> <tr> <td>BLOOD UREA NITROGEN</td> <td>16 mg/dL</td> <td>7-20</td> </tr> <tr> <td>CREATININE</td> <td>0.7 mg/dL</td> <td> 0.6-1.0</td> </tr> <tr> <td>SODIUM</td> <td>143 mmol/L</td> <td>135-148</td> </tr> <tr> <td> CHLORIDE</td> <td>105 mmol/L</td> <td>98-110</td> </tr > <tr> <td>AST/SGOT</td> <td>45 Units/L</td> < td>10-37</td> </tr> <tr> <td>ALT/SGPT</td> <td> 76 Units/L</td> <td>< 66</td> </tr> <tr> <td> CARBON DIOXIDE</td> <td>31 mmol/L</td> <td>21-32</td> < /tr> <tr> <td>TOTAL PROTEIN</td> <td>6.4 gm/dL</td> <td>6.4-8.2</td> </tr> <tr> <td>ALBUMIN</td> <td>2.8 gm/dL</td> <td>3.4-5.0</td> </tr> <tr> <td>BILI TOTAL</td> <td>0.4 mg/dL</td> <td>0.0-1.0</td> </tr> <tr> <td>ALKALINE PHOSPHATASE TOTAL</td> < td>189 IU/L</td> <td>45-117</td> </tr> <tr> <th colspan="10">THYROID STIM HORMONE (TSH) - 11/10/17 14:00</th> </tr> <tr> <td>THYROID STIM HORMONE (TSH)</td> <td>4.24 uIU/mL</ td> <td>0.34-4.82</td> </tr> <tr> <th colspan= "10">B-TYPE NATRIURETIC PEPTIDE - 11/10/17 14:00</th> </tr> <tr> <td>B-TYPE NATRIURETIC PEPTIDE</td> <td>143 pg/mL</td> <td>< 100</td> </tr> <tr> <th colspan="10"> PROTHROMBIN TIME WITH INR - 11/11/17 06:09</th> </tr> <tr> <td>INTERNATIONAL NORMAL RATIO</td> <td>1.9 </td> <td>0.9- 1.1</td> </tr> <tr> <td>PROTHROMBIN TIME</td> < td>22.3 sec</td> <td>10.0-12.8</td> </tr> <tr> < th colspan="10">METABOLIC PANEL, BASIC - 11/11/17 09:09</th> </tr> <tr> <td>POTASSIUM</td> <td>3.5 mmol/L</td> <td>3.5 -5.3</td> </tr> <tr> <td>EST GFR (MDRD)</td> <td >> 60 mL/min</td> <td>> 59</td> </tr> <tr> <td>ANION GAP</td> <td>8 mmol/L</td> <td>5-15</td> </ tr> <tr> <td>EST CrCl (CG)</td> <td>> 60 mL/min</td > <td>> 59</td> </tr> <tr> <td>GLUCOSE</td> <td>98 mg/dL</td> <td>70-99</td> </tr> <tr> <td>CALCIUM</td> <td>8.3 mg/dL</td> <td>8.5-10.1</td> </tr> <tr> <td>BLOOD UREA NITROGEN</td> <td>18 mg /dL</td> <td>7-20</td> </tr> <tr> <td>CREATININE </td> <td>0.7 mg/dL</td> <td>0.6-1.0</td> </tr> <tr> <td>SODIUM</td> <td>144 mmol/L</td> <td>135-148< /td> </tr> <tr> <td>CHLORIDE</td> <td>105 mmol/L </td> <td>98-110</td> </tr> <tr> <td>CARBON DIOXIDE</td> <td>31 mmol/L</td> <td>21-32</td> </tr> <tr> <th colspan="10">Protime - 12/15/17 10:35</th> </tr > <tr> <td>INR</td> <td>2.0 </td> <td>1.0-4.0< /td> </tr> <tr> <td>Protime</td> <td>23.5 Sec</ td> <td>9.9-12.8</td> </tr> <tr> <th colspan="10 ">PT panel in platelet poor plasma by coagulation assay - 12/17/17 04:50</th> </tr> <tr> <td>Prothrombin time (PT) in platelet poor plasma by coagulation assay</td> <td>25.2 s</td> <td>12.2-14.7 </td> </tr> <tr> <td>INR in platelet poor plasma or blood by coagulation assay</td> <td>2.3 </td> <td>0.8-1.4</td > </tr> <tr> <th colspan="10">PT panel in platelet poor plasma by coagulation assay - 12/18/17 08:00</th> </tr> <tr> <td>Prothrombin time (PT) in platelet poor plasma by coagulation assay</td > <td>24.7 s</td> <td>12.2-14.7</td> </tr> <tr> <td>INR in platelet poor plasma or blood by coagulation assay</td> <td>2.2 </td> <td>0.8-1.4</td> </tr> <tr> <th colspan="10">PT panel in platelet poor plasma by coagulation assay - 12/19 06:50</th> </tr> <tr> <td>Prothrombin time (PT) in platelet poor plasma by coagulation assay</td> <td>23.7 s</td> <td>12.2-14.7</td> </tr> <tr> <td>INR in platelet poor plasma or blood by coagulation assay</td> <td>2.1 </td> <td> 0.8-1.4</td> </tr> <tr> <th colspan="10">PT panel in platelet poor plasma by coagulation assay - 12/20/17 05:29</th> </tr> <tr> <td>Prothrombin time (PT) in platelet poor plasma by coagulation assay</td> <td>24.7 s</td> <td>12.2-14.7</td> </tr> <tr> <td>INR in platelet poor plasma or blood by coagulation assay</td> <td>2.2 </td> <td>0.8-1.4</td> < /tr> <tr> <th colspan="10">PT panel in platelet poor plasma by coagulation assay - 12/24/17 04:55</th> </tr> <tr> <td> Prothrombin time (PT) in platelet poor plasma by coagulation assay</td> <td>25.2 s</td> <td>12.2-14.7</td> </tr> <tr> <td>INR in platelet poor plasma or blood by coagulation assay</td> <td> 2.3 </td> <td>0.8-1.4</td> </tr> <tr> <th colspan="10">PT panel in platelet poor plasma by coagulation assay - 12/27/17 14 :40</th> </tr> <tr> <td>Prothrombin time (PT) in platelet poor plasma by coagulation assay</td> <td>23.6 s</td> <td>12.2-14.7</td> </tr> <tr> <td>INR in platelet poor plasma or blood by coagulation assay</td> <td>2.1 </td> <td> 0.8-1.4</td> </tr> <tr> <th colspan="10">Complete blood count (CBC) with automated white blood cell (WBC) differential - 12/30/17 04:20< /th> </tr> <tr> <td>Blood leukocytes automated count ( number/volume)</td> <td>7.3 10*3/uL</td> <td>4.3-11.0</td> </tr> <tr> <td>Blood erythrocytes automated count (number/ volume)</td> <td>3.50 10*6/uL</td> <td>4.35-5.85</td> < /tr> <tr> <td>Venous blood hemoglobin measurement (mass/volume)< /td> <td>10.0 g/dL</td> <td>11.5-16.0</td> </tr> <tr> <td>Blood hematocrit (volume fraction)</td> <td>33 &#37 ;</td> <td>35-52</td> </tr> <tr> <td>Automated erythrocyte mean corpuscular volume</td> <td>93 [foz_us]</td> <td>80-99</td> </tr> <tr> <td>Automated erythrocyte mean corpuscular hemoglobin (mass per erythrocyte)</td> <td>29 pg</td> <td>25-34</td> </tr> <tr> <td>Automated erythrocyte mean corpuscular hemoglobin concentration measurement (mass/volume)</td> <td>31 g/dL</td> <td>32-36</td> </tr> <tr> < td>Automated erythrocyte distribution width ratio</td> <td>15.7 %</ td> <td>10.0-14.5</td> </tr> <tr> <td>Automated blood platelet count (count/volume)</td> <td>282 10*3/uL</td> <td>130-400</td> </tr> <tr> <td>Automated blood platelet mean volume measurement</td> <td>10.0 [foz_us]</td> <td>7.4- 10.4</td> </tr> <tr> <td>Automated blood neutrophils/100 leukocytes</td> <td>46 %</td> <td>42-75</td> </tr> <tr> <td>Automated blood lymphocytes/100 leukocytes</td> <td>41 %</td> <td>12-44</td> </tr> <tr> <td>Blood monocytes/100 leukocytes</td> <td>8 %</td> <td>0 -12</td> </tr> <tr> <td>Automated blood eosinophils/100 leukocytes</td> <td>4 %</td> <td>0-10</td> </tr> <tr> <td>Automated blood basophils/100 leukocytes</td> < td>0 %</td> <td>0-10</td> </tr> <tr> <td> Blood neutrophils automated count (number/volume)</td> <td>3.4 10*3</td > <td>1.8-7.8</td> </tr> <tr> <td>Blood lymphocytes automated count (number/volume)</td> <td>3.0 10*3</td> <td>1.0-4.0</td> </tr> <tr> <td>Blood monocytes automated count (number/volume)</td> <td>0.6 10*3</td> <td>0.0 -1.0</td> </tr> <tr> <td>Automated eosinophil count</td> <td>0.3 10*3/uL</td> <td>0.0-0.3</td> </tr> <tr > <td>Automated blood basophil count (count/volume)</td> <td> 0.0 10*3/uL</td> <td>0.0-0.1</td> </tr> <tr> < th colspan="10">Erythrocyte sedimentation rate by westergren method - 12/30/17 04:20</th> </tr> <tr> <td>Erythrocyte sedimentation rate by westergren method</td> <td>23 mm</td> <td>0-30</td> </tr> <tr> <th colspan="10">Comprehensive metabolic panel - 04:50</th> </tr> <tr> <td>Serum or plasma sodium measurement (moles/volume)</td> <td>145 mmol/L</td> <td>135- 145</td> </tr> <tr> <td>Serum or plasma potassium measurement (moles/volume)</td> <td>4.1 mmol/L</td> <td>3.6- 5.0</td> </tr> <tr> <td>Serum or plasma chloride measurement (moles/volume)</td> <td>109 mmol/L</td> <td>98-107 </td> </tr> <tr> <td>Carbon dioxide</td> <td>26 mmol/L</td> <td>21-32</td> </tr> <tr> <td>Serum or plasma anion gap determination (moles/volume)</td> <td>10 mmol/L</td > <td>5-14</td> </tr> <tr> <td>Serum or plasma urea nitrogen measurement (mass/volume)</td> <td>26 mg/dL</td> <td>7-18</td> </tr> <tr> <td>Serum or plasma creatinine measurement (mass/volume)</td> <td>0.66 mg/dL</td> <td>0.60-1.30</td> </tr> <tr> <td>Serum or plasma urea nitrogen/creatinine mass ratio</td> <td>39 </td> <td>NRG</td> </tr> <tr> <td>Serum or plasma creatinine measurement with calculation of estimated glomerular filtration rate</td> <td>> </td> <td>NRG</td> </tr> <tr> <td>Serum or plasma glucose measurement (mass/volume)</td> <td>86 mg/dL</td> <td>70-105</td> </tr> <tr> <td>Serum or plasma calcium measurement (mass/volume)</td> <td>8.9 mg/dL</td> <td> 8.5-10.1</td> </tr> <tr> <td>Serum or plasma total bilirubin measurement (mass/volume)</td> <td>0.2 mg/dL</td> < td>0.1-1.0</td> </tr> <tr> <td>Serum or plasma alkaline phosphatase measurement (enzymatic activity/volume)</td> <td>119 U/L</ td> <td>40-136</td> </tr> <tr> <td>Serum or plasma aspartate aminotransferase measurement (enzymatic activity/volume)</td> <td>14 U/L</td> <td>5-34</td> </tr> <tr> <td>Serum or plasma alanine aminotransferase measurement (enzymatic activity/ volume)</td> <td>14 U/L</td> <td>0-55</td> </tr> <tr> <td>Serum or plasma protein measurement (mass/volume)</td> <td>6.0 g/dL</td> <td>6.4-8.2</td> </tr> <tr> <td>Serum or plasma albumin measurement (mass/volume)</td> <td>3.3 g/dL</td> <td>3.2-4.5</td> </tr> <tr> <td> CALCIUM CORRECTED</td> <td>9.5 mg/dL</td> <td>8.5-10.1</td> </tr> <tr> <th colspan="10">Serum or plasma C reactive protein measurement (mass/volume) - 12/30/17 04:50</th> </tr> <tr > <td>Serum or plasma C reactive protein measurement (mass/volume)</td > <td>0.74 mg/dL</td> <td>0.00-0.50</td> </tr> < tr> <th colspan="10">PT panel in platelet poor plasma by coagulation assay - 12/31/17 04:55</th> </tr> <tr> <td>Prothrombin time (PT) in platelet poor plasma by coagulation assay</td> <td>24.6 s< /td> <td>12.2-14.7</td> </tr> <tr> <td>INR in platelet poor plasma or blood by coagulation assay</td> <td>2.2 </td> <td>0.8-1.4</td> </tr> <tr> <th colspan="10">PT panel in platelet poor plasma by coagulation assay - 01/04/18 05:48</th> </tr> <tr> <td>Prothrombin time (PT) in platelet poor plasma by coagulation assay</td> <td>25.6 s</td> <td>12.2-14.7</td> </tr> <tr> <td>INR in platelet poor plasma or blood by coagulation assay</td> <td>2.3 </td> <td>0.8-1.4</td> < /tr> <tr> <th colspan="10">Complete blood count (CBC) with automated white blood cell (WBC) differential - 01/04/18 14:55</th> </tr > <tr> <td>Blood leukocytes automated count (number/volume)</td > <td>8.0 10*3/uL</td> <td>4.3-11.0</td> </tr> < tr> <td>Blood erythrocytes automated count (number/volume)</td> <td>3.88 10*6/uL</td> <td>4.35-5.85</td> </tr> <tr> <td>Venous blood hemoglobin measurement (mass/volume)</td> <td> 11.3 g/dL</td> <td>11.5-16.0</td> </tr> <tr> <td >Blood hematocrit (volume fraction)</td> <td>36 %</td> <td >35-52</td> </tr> <tr> <td>Automated erythrocyte mean corpuscular volume</td> <td>92 [foz_us]</td> <td>80-99</td> </tr> <tr> <td>Automated erythrocyte mean corpuscular hemoglobin (mass per erythrocyte)</td> <td>29 pg</td> <td>25- 34</td> </tr> <tr> <td>Automated erythrocyte mean corpuscular hemoglobin concentration measurement (mass/volume)</td> <td >32 g/dL</td> <td>32-36</td> </tr> <tr> <td> Automated erythrocyte distribution width ratio</td> <td>16.0 %</td > <td>10.0-14.5</td> </tr> <tr> <td>Automated blood platelet count (count/volume)</td> <td>238 10*3/uL</td> <td>130-400</td> </tr> <tr> <td>Automated blood platelet mean volume measurement</td> <td>10.1 [foz_us]</td> <td>7.4- 10.4</td> </tr> <tr> <td>Automated blood neutrophils/100 leukocytes</td> <td>64 %</td> <td>42-75</td> </tr> <tr> <td>Automated blood lymphocytes/100 leukocytes</td> <td>22 %</td> <td>12-44</td> </tr> <tr> <td>Blood monocytes/100 leukocytes</td> <td>12 %</td> <td> 0-12</td> </tr> <tr> <td>Automated blood eosinophils/100 leukocytes</td> <td>2 %</td> <td>0-10</td> </tr> <tr> <td>Automated blood basophils/100 leukocytes</td> < td>1 %</td> <td>0-10</td> </tr> <tr> <td> Blood neutrophils automated count (number/volume)</td> <td>5.1 10*3</td > <td>1.8-7.8</td> </tr> <tr> <td>Blood lymphocytes automated count (number/volume)</td> <td>1.8 10*3</td> <td>1.0-4.0</td> </tr> <tr> <td>Blood monocytes automated count (number/volume)</td> <td>0.9 10*3</td> <td>0.0 -1.0</td> </tr> <tr> <td>Automated eosinophil count</td> <td>0.2 10*3/uL</td> <td>0.0-0.3</td> </tr> <tr > <td>Automated blood basophil count (count/volume)</td> <td> 0.0 10*3/uL</td> <td>0.0-0.1</td> </tr> <tr> < colspan="10">Whole blood basic metabolic panel - 01/04/18 14:55</th> < /tr> <tr> <td>Serum or plasma sodium measurement (moles/volume)< /td> <td>141 mmol/L</td> <td>135-145</td> </tr> <tr> <td>Serum or plasma potassium measurement (moles/volume)</td> <td>4.6 mmol/L</td> <td>3.6-5.0</td> </tr> <tr> <td>Serum or plasma chloride measurement (moles/volume)</td> <td >104 mmol/L</td> <td>98-107</td> </tr> <tr> <td> Carbon dioxide</td> <td>24 mmol/L</td> <td>21-32</td> < /tr> <tr> <td>Serum or plasma anion gap determination (moles/ volume)</td> <td>13 mmol/L</td> <td>5-14</td> </tr> <tr> <td>Serum or plasma urea nitrogen measurement (mass/volume)</ td> <td>18 mg/dL</td> <td>7-18</td> </tr> <tr> <td>Serum or plasma creatinine measurement (mass/volume)</td> <td>0.75 mg/dL</td> <td>0.60-1.30</td> </tr> <tr> <td>Serum or plasma urea nitrogen/creatinine mass ratio</td> <td>24 </td> <td>NRG</td> </tr> <tr> <td>Serum or plasma creatinine measurement with calculation of estimated glomerular filtration rate</td> <td>> </td> <td>NRG</td> </tr> <tr> <td>Serum or plasma glucose measurement (mass/volume)</td > <td>100 mg/dL</td> <td>70-105</td> </tr> <tr> <td>Serum or plasma calcium measurement (mass/volume)</td> < td>9.2 mg/dL</td> <td>8.5-10.1</td> </tr> <tr> < th colspan="10">Serum or plasma lithium measurement (moles/volume) - 01/04/18 14 :55</th> </tr> <tr> <td>BNP level</td> <td>24.0 pg/mL</td> <td><100.0</td> </tr> <tr> <th colspan="10">Comprehensive Metabolic Panel - 01/15/18 08:37</th> </tr> <tr> <td>Albumin</td> <td>3.8 g/dL</td> <td>3.6 -5.1</td> </tr> <tr> <td>ALP</td> <td>135 U/L</ td> <td>35-130</td> </tr> <tr> <td>ALT</td> <td>17 U/L</td> <td>6-45</td> </tr> <tr> < td>Anion Gap</td> <td>16 </td> <td>6-14</td> </tr> <tr> <td>AST</td> <td>19 U/L</td> <td>2-40</td> </tr> <tr> <td>BUN</td> <td>20 mg/dL</td> <td>5-25</td> </tr> <tr> <td>Calcium</td> < td>9.3 mg/dL</td> <td>8.3-10.4</td> </tr> <tr> < td>Chloride</td> <td>103 mmol/L</td> <td>95-114</td> </ tr> <tr> <td>CO2</td> <td>27 mEq/L</td> <td>22 -33</td> </tr> <tr> <td>Creat</td> <td>0.76 mg/ dL</td> <td>0.50-1.50</td> </tr> <tr> <td>eGFR</ td> <td>75 mL/min/1.73m2</td> <td>>59</td> </tr> <tr> <td>Globulin</td> <td>3.5 g/dL</td> <td>2.3 -3.5</td> </tr> <tr> <td>Glucose</td> <td>80 mg/ dL</td> <td>70-110</td> </tr> <tr> <td>Osmo</td > <td>295 </td> <td>280-295</td> </tr> <tr> <td>Potassium</td> <td>3.9 mmol/L</td> <td>3.5-5.3</td> </tr> <tr> <td>Sodium</td> <td>142 mmol/L</td> <td>134-148</td> </tr> <tr> <td>TBil</td> <td>0.3 mg/dL</td> <td>0.2-1.2</td> </tr> <tr> <td>TP</td> <td>7.3 g/dL</td> <td>6.0-8.3</td> </ tr> <tr> <th colspan="10">Urinalysis - 01/15/18 11:36</th> </tr> <tr> <td>Icotest</td> <td>N/A </td> < td>Negative</td> </tr> <tr> <td>Urine Volume</td> <td>Urine Volume Sufficient (10mL) </td> <td /> </tr> <tr> <td>Urine Yeast</td> <td>No Yeast present </td> <td /> </tr> <tr> <td>Urine-Appearance</td> <td> Clear </td> <td>Clear</td> </tr> <tr> <td>Urine- Bacteria</td> <td>Negative </td> <td> </td> </tr> <tr> <td>Urine-Bilirubin</td> <td>Negative </td> < td>Negative</td> </tr> <tr> <td>Urine-Blood</td> <td>Negative </td> <td>Negative</td> </tr> <tr> <td>Urine-Color</td> <td>Yellow </td> <td>Colorless-Lt. Yellow</td> </tr> <tr> <td>Urine-Glucose</td> < td>Negative </td> <td>Negative</td> </tr> <tr> < td>Urine-Ketones</td> <td>Negative </td> <td>Negative</td> </tr> <tr> <td>Urine-Leukocytes</td> <td>Negative </td> <td>Negative</td> </tr> <tr> <td>Urine- Nitrite</td> <td>Negative </td> <td>Negative</td> </tr > <tr> <td>Urine-Other</td> <td> Urine Saved if Culture Needed (48hrs from time of collection) </td> <td> </td> </tr> <tr> <td>Urine-pH</td> <td>7.0 </td> <td >5-8.5</td> </tr> <tr> <td>Urine-Protein</td> < td>Negative </td> <td>Negative</td> </tr> <tr> < td>Urine-RBC</td> <td>Rare/HPF </td> <td> </td> </tr> <tr> <td>Urine-Specific [place]</td> <td>1.010 </td> <td>1.000-1.030</td> </tr> <tr> <td>Urine-WBC</td > <td>Negative </td> <td> </td> </tr> <tr> <td>Urobilinogen</td> <td>0.2 E.U./dL </td> <td>0.2-1.0</ td> </tr> <tr> <th colspan="10">Urine Culture - 01/15/18 11:36</th> </tr> <tr> <td>PRELIM CULTURE RESULTS</td> <td>No Growth 24 hours </td> <td /> </tr> <tr> <td>FINAL CULTURE RESULTS</td> <td>No Growth 48 hours </td> <td /> </tr> <tr> <td>MEDIA PLATED</td> < td>Setup at 1145 on 01/15/2018 </td> <td /> </tr> <tr> <td>CULTURE SOURCE</td> <td>cath indwelling </td> <td / > </tr> <tr> <th colspan="10">METABOLIC PANEL, COMPREHN - 01/15/18 18:45</th> </tr> <tr> <td>POTASSIUM</td> <td>4.1 mmol/L</td> <td>3.5-5.3</td> </tr> <tr> <td>EST GFR (MDRD)</td> <td>> 60 mL/min</td> <td>&gt ; 59</td> </tr> <tr> <td>ANION GAP</td> <td>7 mmol/L</td> <td>5-15</td> </tr> <tr> <td>EST CrCl (CG)</td> <td>> 60 mL/min</td> <td>> 59</td> </tr> <tr> <td>GLUCOSE</td> <td>97 mg/dL</td> <td>70-99</td> </tr> <tr> <td>CALCIUM</td> < td>8.6 mg/dL</td> <td>8.5-10.1</td> </tr> <tr> < td>BLOOD UREA NITROGEN</td> <td>18 mg/dL</td> <td>7-20</td> </tr> <tr> <td>CREATININE</td> <td>0.6 mg/dL</td > <td>0.6-1.0</td> </tr> <tr> <td>SODIUM</td> <td>141 mmol/L</td> <td>135-148</td> </tr> <tr> <td>CHLORIDE</td> <td>103 mmol/L</td> <td>98-110</td > </tr> <tr> <td>AST/SGOT</td> <td>16 Units/L</ td> <td>10-37</td> </tr> <tr> <td>ALT/SGPT</td> <td>21 Units/L</td> <td>< 66</td> </tr> <tr > <td>CARBON DIOXIDE</td> <td>31 mmol/L</td> <td>21- 32</td> </tr> <tr> <td>TOTAL PROTEIN</td> <td> 6.9 gm/dL</td> <td>6.4-8.2</td> </tr> <tr> <td> ALBUMIN</td> <td>3.0 gm/dL</td> <td>3.4-5.0</td> </tr> <tr> <td>BILI TOTAL</td> <td>0.3 mg/dL</td> < td>0.0-1.0</td> </tr> <tr> <td>ALKALINE PHOSPHATASE TOTAL </td> <td>145 IU/L</td> <td>45-117</td> </tr> < tr> <th colspan="10">PROTHROMBIN TIME WITH INR - 01/15/18 18:45</th> </tr> <tr> <td>INTERNATIONAL NORMAL RATIO</td> < td>2.8 </td> <td>0.9-1.1</td> </tr> <tr> <td> PROTHROMBIN TIME</td> <td>32.4 sec</td> <td>10.0-12.8</td> </tr> <tr> <th colspan="10">CBC W/DIFF - 01/15/18 18:46</th > </tr> <tr> <td>BASOPHIL #</td> <td>0.0 k/cumm< /td> <td>0.0-0.2</td> </tr> <tr> <td>BASOPHIL &# 37;</td> <td>0.5 %</td> <td>0-1</td> </tr> < tr> <td>EOSINOPHIL #</td> <td>0.1 k/cumm</td> <td>0.1 -0.5</td> </tr> <tr> <td>EOSINOPHIL %</td> < td>1.7 %</td> <td>2-4</td> </tr> <tr> <td> GRANULOCYTE #</td> <td>5.5 k/cumm</td> <td>2.0-9.0</td> </tr> <tr> <td>GRANULOCYTE %</td> <td>73.5 %< /td> <td>50-75</td> </tr> <tr> <td>LYMPHOCYTE #< /td> <td>1.4 k/cumm</td> <td>1.0-4.0</td> </tr> <tr> <td>LYMPHOCYTE %</td> <td>18.4 %</td> < td>20-30</td> </tr> <tr> <td>MEAN CELL HGB</td> <td>28.4 pg</td> <td>27.0-33.0</td> </tr> <tr> < td>MEAN CELL HGB CONCENTRATION</td> <td>31.5 g/dL</td> <td> 32.0-37.0</td> </tr> <tr> <td>MEAN CELL VOLUME</td> <td>90.3 fl</td> <td>80.0-100.0</td> </tr> <tr> <td>MONOCYTE #</td> <td>0.4 k/cumm</td> <td>0.1-1.0</td > </tr> <tr> <td>MONOCYTE %</td> <td>5.5 &# 37;</td> <td>4-6</td> </tr> <tr> <td>MEAN PLATELET VOLUME</td> <td>10.5 fl</td> <td>8.5-10.9</td> </tr> <tr> <td>RED BLOOD CELL</td> <td>3.59 m/cumm</ td> <td>4.00-6.00</td> </tr> <tr> <td>RED CELL DISTRIBUTION WIDTH</td> <td>15.3 %</td> <td>11.0-15.6</td > </tr> <tr> <td>WHITE BLOOD CELL</td> <td>7.5 k /cumm</td> <td>5.0-10.0</td> </tr> <tr> <td> HEMOGLOBIN</td> <td>10.2 gm/dL</td> <td>12.0-16.0</td> </tr> <tr> <td>HEMATOCRIT</td> <td>32.4 %</td> <td>37.0-47.0</td> </tr> <tr> <td>NRBC %</td> <td>0.0 /100 WBC</td> <td>0.0-0.0</td> </tr> <tr > <td>PLATELET COUNT</td> <td>252 k/cumm</td> <td>150 -400</td> </tr> <tr> <td>IMMATURE GRANULOCYTE %</td> <td>0.4 %</td> <td>0.0-0.6</td> </tr> <tr> <td>IMMATURE GRANULOCYTE #</td> <td>0.03 k/cumm</td> <td>0.00-0.09</td> </tr> <tr> <th colspan="10">MRSA SURVEILLANCE SCREEN - 01/15/18 18:48</th> </tr> <tr> <td> Microbiology</td> <td> </td> <td /> </tr> <tr> <th colspan="10">URINALYSIS, ROUTINE - 01/15/18 19:00</th> </tr > <tr> <td>UA LEUKOCYTE ESTERASE DIPSTICK</td> <td>1+ < /td> <td>NEGATIVE</td> </tr> <tr> <td>UA NITRITE DIPSTICK</td> <td>NEGATIVE </td> <td>NEGATIVE</td> </tr> <tr> <td>UA PROTEIN DIPSTICK</td> <td> NEGATIVE </td> <td>NEGATIVE</td> </tr> <tr> <td> UA GLUCOSE DIPSTICK</td> <td>NEGATIVE </td> <td>NEGATIVE</td> </tr> <tr> <td>UA KETONE DIPSTICK</td> <td> NEGATIVE </td> <td>NEGATIVE</td> </tr> <tr> <td> UA UROBILINOGEN DIPSTICK</td> <td>NORMAL </td> <td>NORMAL</td > </tr> <tr> <td>UA BILIRUBIN DIPSTICK</td> <td> NEGATIVE </td> <td>NEGATIVE</td> </tr> <tr> <td> UA BLOOD DIPSTICK</td> <td>2+ </td> <td>NEGATIVE</td> < /tr> <tr> <td>UA SPECIFIC GRAVITY</td> <td>1.015 </td> <td>1.015-1.025</td> </tr> <tr> <td>UR PH</td> <td>>=9.0 </td> <td>5.0-7.0</td> </tr> <tr> < colspan="10">UA MICROSCOPIC - 01/15/18 19:00</th> </tr> <tr> <td>UA AMORPHOUS SEDIMENT</td> <td>3+ </td> <td /> </tr> <tr> <td>UA BACTERIA</td> <td>1+ </td> <td>NEGATIVE</td> </tr> <tr> <td>UA EPITHELIAL CELLS</td> <td>1+ epi/hpf</td> <td>0 - 1+</td> </tr> <tr> <td>UA HYALINE CAST</td> <td>>10 cast /lpf</td> <td>0 - 1</td> </tr> <tr> <td>UA RBC</ td> <td>20-50 rbc/hpf</td> <td>0 - 3</td> </tr> <tr> <td>UA WBC</td> <td>5-10 wbc/hpf</td> <td>0 - 5< /td> </tr> <tr> < colspan="10">PROTHROMBIN TIME WITH INR - 01/15/18 23:26</th> </tr> <tr> <td>INTERNATIONAL NORMAL RATIO</td> <td>2.5 </td> <td>0.9-1.1</td> </tr> <tr> <td>PROTHROMBIN TIME</td> <td>28.5 sec</td> <td>10.0-12.8</td> </tr> <tr> < colspan="10"> HEPARIN UNFRACTIONATED - 01/15/18 23:26</th> </tr> <tr> < td>HEPARIN UNFRACTIONATED</td> <td>< 0.04 Units/mL</td> <td >0.3-0.7</td> </tr> <tr> <th colspan="10">CBC - 01/15/18 23:26</th> </tr> <tr> <td>MEAN CELL HGB</td> <td >28.5 pg</td> <td>27.0-33.0</td> </tr> <tr> <td> MEAN CELL HGB CONCENTRATION</td> <td>31.0 g/dL</td> <td>32.0- 37.0</td> </tr> <tr> <td>MEAN CELL VOLUME</td> < td>91.9 fl</td> <td>80.0-100.0</td> </tr> <tr> < td>MEAN PLATELET VOLUME</td> <td>10.0 fl</td> <td>8.5-10.9</td > </tr> <tr> <td>RED BLOOD CELL</td> <td>3.33 m/ cumm</td> <td>4.00-6.00</td> </tr> <tr> <td>RED CELL DISTRIBUTION WIDTH</td> <td>15.4 %</td> <td>11.0-15.6 </td> </tr> <tr> <td>WHITE BLOOD CELL</td> <td> 7.8 k/cumm</td> <td>5.0-10.0</td> </tr> <tr> <td >HEMOGLOBIN</td> <td>9.5 gm/dL</td> <td>12.0-16.0</td> </tr> <tr> <td>HEMATOCRIT</td> <td>30.6 %</td> <td>37.0-47.0</td> </tr> <tr> <td>NRBC %</td> <td>0.0 /100 WBC</td> <td>0.0-0.0</td> </tr> <tr > <td>PLATELET COUNT</td> <td>280 k/cumm</td> <td>150 -400</td> </tr> <tr> <th colspan="10">PROTHROMBIN TIME WITH INR - 01/16/18 02:44</th> </tr> <tr> <td> INTERNATIONAL NORMAL RATIO</td> <td>2.2 </td> <td>0.9-1.1</td > </tr> <tr> <td>PROTHROMBIN TIME</td> <td>25.7 sec</td> <td>10.0-12.8</td> </tr> <tr> <th colspan="10">CBC - 01/16/18 04:37</th> </tr> <tr> <td> MEAN CELL HGB</td> <td>28.7 pg</td> <td>27.0-33.0</td> </tr> <tr> <td>MEAN CELL HGB CONCENTRATION</td> <td> 31.0 g/dL</td> <td>32.0-37.0</td> </tr> <tr> <td >MEAN CELL VOLUME</td> <td>92.6 fl</td> <td>80.0-100.0</td> </tr> <tr> <td>MEAN PLATELET VOLUME</td> <td> 10.1 fl</td> <td>8.5-10.9</td> </tr> <tr> <td> RED BLOOD CELL</td> <td>3.10 m/cumm</td> <td>4.00-6.00</td> </tr> <tr> <td>RED CELL DISTRIBUTION WIDTH</td> < td>15.5 %</td> <td>11.0-15.6</td> </tr> <tr> <td>WHITE BLOOD CELL</td> <td>7.2 k/cumm</td> <td>5.0-10.0</ td> </tr> <tr> <td>HEMOGLOBIN</td> <td>8.9 gm/dL </td> <td>12.0-16.0</td> </tr> <tr> <td> HEMATOCRIT</td> <td>28.7 %</td> <td>37.0-47.0</td> </tr> <tr> <td>NRBC %</td> <td>0.0 /100 WBC</td> <td>0.0-0.0</td> </tr> <tr> <td>PLATELET COUNT</ td> <td>251 k/cumm</td> <td>150-400</td> </tr> < tr> <th colspan="10">HEPARIN UNFRACTIONATED - 01/16/18 04:37</th> </tr> <tr> <td>HEPARIN UNFRACTIONATED</td> <td>0.29 Units/mL</td> <td>0.3-0.7</td> </tr> <tr> <th colspan="10">PROTHROMBIN TIME WITH INR - 01/16/18 04:37</th> </tr> <tr> <td>INTERNATIONAL NORMAL RATIO</td> <td>2.0 </td> <td>0.9-1.1</td> </tr> <tr> <td>PROTHROMBIN TIME</td > <td>22.8 sec</td> <td>10.0-12.8</td> </tr> <tr > <th colspan="10">PROTHROMBIN TIME WITH INR - 01/16/18 06:23</th> </tr> <tr> <td>INTERNATIONAL NORMAL RATIO</td> <td> 1.9 </td> <td>0.9-1.1</td> </tr> <tr> <td> PROTHROMBIN TIME</td> <td>21.5 sec</td> <td>10.0-12.8</td> </tr> <tr> <th colspan="10">HEPARIN UNFRACTIONATED - 11:55</th> </tr> <tr> <td>HEPARIN UNFRACTIONATED</td> <td>0.05 Units/mL</td> <td>0.3-0.7</td> </tr> < tr> <th colspan="10">HEPARIN-LOW MOLECULAR WEIGHT - 01/16/18 19:24</th > </tr> <tr> <td>HEPARIN-LOW MOLECULAR WEIGHT</td> <td>0.50 Units/mL</td> <td>0.00</td> </tr> <tr> <th colspan="10">HEPARIN UNFRACTIONATED - 01/16/18 22:37</th> </tr> <tr> <td>HEPARIN UNFRACTIONATED</td> <td>0.67 Units/mL </td> <td>0.3-0.7</td> </tr> <tr> <th colspan= "10">CBC W/DIFF - 01/17/18 05:54</th> </tr> <tr> <td> BASOPHIL #</td> <td>0.0 k/cumm</td> <td>0.0-0.2</td> </ tr> <tr> <td>BASOPHIL %</td> <td>0.2 %</td> <td>0-1</td> </tr> <tr> <td>EOSINOPHIL #</td> <td>0.0 k/cumm</td> <td>0.1-0.5</td> </tr> <tr> <td>EOSINOPHIL %</td> <td>0.0 %</td> <td>2-4</ td> </tr> <tr> <td>GRANULOCYTE #</td> <td>7.7 k/ cumm</td> <td>2.0-9.0</td> </tr> <tr> <td> GRANULOCYTE %</td> <td>80.8 %</td> <td>50-75</td> </tr> <tr> <td>LYMPHOCYTE #</td> <td>1.2 k/cumm</td > <td>1.0-4.0</td> </tr> <tr> <td>LYMPHOCYTE &# 37;</td> <td>12.3 %</td> <td>20-30</td> </tr> <tr> <td>MEAN CELL HGB</td> <td>28.7 pg</td> <td> 27.0-33.0</td> </tr> <tr> <td>MEAN CELL HGB CONCENTRATION </td> <td>30.5 g/dL</td> <td>32.0-37.0</td> </tr> <tr> <td>MEAN CELL VOLUME</td> <td>94.0 fl</td> < td>80.0-100.0</td> </tr> <tr> <td>MONOCYTE #</td> <td>0.6 k/cumm</td> <td>0.1-1.0</td> </tr> <tr> <td>MONOCYTE %</td> <td>6.2 %</td> <td>4-6</td> </tr> <tr> <td>MEAN PLATELET VOLUME</td> <td> 10.4 fl</td> <td>8.5-10.9</td> </tr> <tr> <td> RED BLOOD CELL</td> <td>3.17 m/cumm</td> <td>4.00-6.00</td> </tr> <tr> <td>RED CELL DISTRIBUTION WIDTH</td> < td>15.3 %</td> <td>11.0-15.6</td> </tr> <tr> <td>WHITE BLOOD CELL</td> <td>9.5 k/cumm</td> <td>5.0-10.0</ td> </tr> <tr> <td>HEMOGLOBIN</td> <td>9.1 gm/dL </td> <td>12.0-16.0</td> </tr> <tr> <td> HEMATOCRIT</td> <td>29.8 %</td> <td>37.0-47.0</td> </tr> <tr> <td>NRBC %</td> <td>0.0 /100 WBC</td> <td>0.0-0.0</td> </tr> <tr> <td>PLATELET COUNT</ td> <td>255 k/cumm</td> <td>150-400</td> </tr> < tr> <td>IMMATURE GRANULOCYTE %</td> <td>0.5 %</td> <td>0.0-0.6</td> </tr> <tr> <td>IMMATURE GRANULOCYTE #</td> <td>0.05 k/cumm</td> <td>0.00-0.09</td> </tr> <tr> <th colspan="10">HEPARIN UNFRACTIONATED - 05:54</th> </tr> <tr> <td>HEPARIN UNFRACTIONATED</td> <td>0.66 Units/mL</td> <td>0.3-0.7</td> </tr> < tr> <th colspan="10">PROTHROMBIN TIME WITH INR - 01/17/18 05:54</th> </tr> <tr> <td>INTERNATIONAL NORMAL RATIO</td> < td>1.3 </td> <td>0.9-1.1</td> </tr> <tr> <td> PROTHROMBIN TIME</td> <td>15.2 sec</td> <td>10.0-12.8</td> </tr> <tr> <th colspan="10">METABOLIC PANEL, BASIC - 05:54</th> </tr> <tr> <td>POTASSIUM</td> <td> 4.4 mmol/L</td> <td>3.5-5.3</td> </tr> <tr> <td> EST GFR (MDRD)</td> <td>> 60 mL/min</td> <td>> 59</td> </tr> <tr> <td>ANION GAP</td> <td>6 mmol/L</td> <td>5-15</td> </tr> <tr> <td>EST CrCl (CG)</td > <td>> 60 mL/min</td> <td>> 59</td> </tr> <tr> <td>GLUCOSE</td> <td>113 mg/dL</td> <td>70-99< /td> </tr> <tr> <td>CALCIUM</td> <td>7.8 mg/dL</ td> <td>8.5-10.1</td> </tr> <tr> <td>BLOOD UREA NITROGEN</td> <td>13 mg/dL</td> <td>7-20</td> </tr> <tr> <td>CREATININE</td> <td>0.8 mg/dL</td> <td> 0.6-1.0</td> </tr> <tr> <td>SODIUM</td> <td>141 mmol/L</td> <td>135-148</td> </tr> <tr> <td> CHLORIDE</td> <td>108 mmol/L</td> <td>98-110</td> </tr > <tr> <td>CARBON DIOXIDE</td> <td>27 mmol/L</td> <td>21-32</td> </tr> <tr> <th colspan="10">CBC - 10/28 07:02</th> </tr> <tr> <td>MEAN CELL HGB</td> <td>28.4 pg</td> <td>27.0-33.0</td> </tr> <tr> <td>MEAN CELL HGB CONCENTRATION</td> <td>30.7 g/dL</td> < td>32.0-37.0</td> </tr> <tr> <td>MEAN CELL VOLUME</td> <td>92.5 fl</td> <td>80.0-100.0</td> </tr> <tr> <td>MEAN PLATELET VOLUME</td> <td>10.0 fl</td> <td> 8.5-10.9</td> </tr> <tr> <td>RED BLOOD CELL</td> <td>2.92 m/cumm</td> <td>4.00-6.00</td> </tr> <tr> <td>RED CELL DISTRIBUTION WIDTH</td> <td>15.9 %</td> <td>11.0-15.6</td> </tr> <tr> <td>WHITE BLOOD CELL</td > <td>8.3 k/cumm</td> <td>5.0-10.0</td> </tr> < tr> <td>HEMOGLOBIN</td> <td>8.3 gm/dL</td> <td>12.0- 16.0</td> </tr> <tr> <td>HEMATOCRIT</td> <td> 27.0 %</td> <td>37.0-47.0</td> </tr> <tr> < td>NRBC %</td> <td>0.0 /100 WBC</td> <td>0.0-0.0</td> </tr> <tr> <td>PLATELET COUNT</td> <td>214 k/cumm</ td> <td>150-400</td> </tr> <tr> <th colspan="10 ">PROTHROMBIN TIME WITH INR - 01/18/18 07:02</th> </tr> <tr> <td>INTERNATIONAL NORMAL RATIO</td> <td>1.3 </td> <td>0.9 -1.1</td> </tr> <tr> <td>PROTHROMBIN TIME</td> < td>15.2 sec</td> <td>10.0-12.8</td> </tr> <tr> < th colspan="10">METABOLIC PANEL, BASIC - 01/18/18 07:02</th> </tr> <tr> <td>POTASSIUM</td> <td>4.4 mmol/L</td> <td>3.5 -5.3</td> </tr> <tr> <td>EST GFR (MDRD)</td> <td >> 60 mL/min</td> <td>> 59</td> </tr> <tr> <td>ANION GAP</td> <td>10 mmol/L</td> <td>5-15</td> < /tr> <tr> <td>EST CrCl (CG)</td> <td>> 60 mL/min</td > <td>> 59</td> </tr> <tr> <td>GLUCOSE</td> <td>78 mg/dL</td> <td>70-99</td> </tr> <tr> <td>CALCIUM</td> <td>8.0 mg/dL</td> <td>8.5-10.1</td> </tr> <tr> <td>BLOOD UREA NITROGEN</td> <td>21 mg /dL</td> <td>7-20</td> </tr> <tr> <td>CREATININE </td> <td>0.7 mg/dL</td> <td>0.6-1.0</td> </tr> <tr> <td>SODIUM</td> <td>146 mmol/L</td> <td>135-148< /td> </tr> <tr> <td>CHLORIDE</td> <td>111 mmol/L </td> <td>98-110</td> </tr> <tr> <td>CARBON DIOXIDE</td> <td>25 mmol/L</td> <td>21-32</td> </tr> <tr> < colspan="10">MAGNESIUM - 01/18/18 07:02</th> </tr > <tr> <td>MAGNESIUM</td> <td>2.2 mg/dL</td> < td>1.8-2.4</td> </tr> <tr> < colspan="10">Protime - 13:30</th> </tr> <tr> <td>INR</td> <td> 1.4 </td> <td>1.0-4.0</td> </tr> <tr> <td> Protime</td> <td>16.6 Sec</td> <td>9.9-12.8</td> </tr> <tr> < colspan="10">PT panel in platelet poor plasma by coagulation assay - 01/23/18 19:43</th> </tr> <tr> <td> Prothrombin time (PT) in platelet poor plasma by coagulation assay</td> <td>15.8 s</td> <td>12.2-14.7</td> </tr> <tr> <td>INR in platelet poor plasma or blood by coagulation assay</td> <td> 1.3 </td> <td>0.8-1.4</td> </tr> <tr> < colspan="10">PT panel in platelet poor plasma by coagulation assay - 01/25/18 07 :20</th> </tr> <tr> <td>Prothrombin time (PT) in platelet poor plasma by coagulation assay</td> <td>14.5 s</td> <td>12.2-14.7</td> </tr> <tr> <td>INR in platelet poor plasma or blood by coagulation assay</td> <td>1.1 </td> <td> 0.8-1.4</td> </tr> <tr> < colspan="10">PT panel in platelet poor plasma by coagulation assay - 01/28/18 09:09</th> </tr> <tr> <td>Prothrombin time (PT) in platelet poor plasma by coagulation assay</td> <td>15.3 s</td> <td>12.2-14.7</td> </tr> <tr> <td>INR in platelet poor plasma or blood by coagulation assay</td> <td>1.2 </td> <td>0.8-1.4</td> < /tr> <tr> <th colspan="10">PT panel in platelet poor plasma by coagulation assay - 01/29/18 09:00</th> </tr> <tr> <td> Prothrombin time (PT) in platelet poor plasma by coagulation assay</td> <td>15.7 s</td> <td>12.2-14.7</td> </tr> <tr> <td>INR in platelet poor plasma or blood by coagulation assay</td> <td> 1.3 </td> <td>0.8-1.4</td> </tr> <tr> <th colspan="10">PT panel in platelet poor plasma by coagulation assay - 01/30/18 08 :00</th> </tr> <tr> <td>Prothrombin time (PT) in platelet poor plasma by coagulation assay</td> <td>17.1 s</td> <td>12.2-14.7</td> </tr> <tr> <td>INR in platelet poor plasma or blood by coagulation assay</td> <td>1.4 </td> <td> 0.8-1.4</td> </tr> <tr> <th colspan="10">PT panel in platelet poor plasma by coagulation assay - 01/31/18 07:45</th> </tr> <tr> <td>Prothrombin time (PT) in platelet poor plasma by coagulation assay</td> <td>17.0 s</td> <td>12.2-14.7</td> </tr> <tr> <td>INR in platelet poor plasma or blood by coagulation assay</td> <td>1.4 </td> <td>0.8-1.4</td> < /tr> <tr> <th colspan="10">PT panel in platelet poor plasma by coagulation assay - 02/01/18 07:00</th> </tr> <tr> <td> Prothrombin time (PT) in platelet poor plasma by coagulation assay</td> <td>19.3 s</td> <td>12.2-14.7</td> </tr> <tr> <td>INR in platelet poor plasma or blood by coagulation assay</td> <td> 1.6 </td> <td>0.8-1.4</td> </tr> <tr> <th colspan="10">PT panel in platelet poor plasma by coagulation assay - 02/02/18 07 :55</th> </tr> <tr> <td>Prothrombin time (PT) in platelet poor plasma by coagulation assay</td> <td>19.0 s</td> <td>12.2-14.7</td> </tr> <tr> <td>INR in platelet poor plasma or blood by coagulation assay</td> <td>1.6 </td> <td> 0.8-1.4</td> </tr> <tr> <th colspan="10">PT panel in platelet poor plasma by coagulation assay - 02/03/18 06:12</th> </tr> <tr> <td>Prothrombin time (PT) in platelet poor plasma by coagulation assay</td> <td>21.6 s</td> <td>12.2-14.7</td> </tr> <tr> <td>INR in platelet poor plasma or blood by coagulation assay</td> <td>1.9 </td> <td>0.8-1.4</td> < /tr> <tr> <th colspan="10">PT panel in platelet poor plasma by coagulation assay - 02/04/18 08:22</th> </tr> <tr> <td> Prothrombin time (PT) in platelet poor plasma by coagulation assay</td> <td>25.6 s</td> <td>12.2-14.7</td> </tr> <tr> <td>INR in platelet poor plasma or blood by coagulation assay</td> <td> 2.3 </td> <td>0.8-1.4</td> </tr> <tr> <th colspan="10">PT panel in platelet poor plasma by coagulation assay - 02/05/18 05 :00</th> </tr> <tr> <td>Prothrombin time (PT) in platelet poor plasma by coagulation assay</td> <td>29.0 s</td> <td>12.2-14.7</td> </tr> <tr> <td>INR in platelet poor plasma or blood by coagulation assay</td> <td>2.7 </td> <td> 0.8-1.4</td> </tr> <tr> <th colspan="10">PT panel in platelet poor plasma by coagulation assay - 02/07/18 07:50</th> </tr> <tr> <td>Prothrombin time (PT) in platelet poor plasma by coagulation assay</td> <td>28.2 s</td> <td>12.2-14.7</td> </tr> <tr> <td>INR in platelet poor plasma or blood by coagulation assay</td> <td>2.6 </td> <td>0.8-1.4</td> < /tr> <tr> <th colspan="10">Complete blood count (CBC) with automated white blood cell (WBC) differential - 02/08/18 05:46</th> </tr > <tr> <td>Blood leukocytes automated count (number/volume)</td > <td>6.2 10*3/uL</td> <td>4.3-11.0</td> </tr> < tr> <td>Blood erythrocytes automated count (number/volume)</td> <td>2.92 10*6/uL</td> <td>4.35-5.85</td> </tr> <tr> <td>Venous blood hemoglobin measurement (mass/volume)</td> <td> 8.2 g/dL</td> <td>11.5-16.0</td> </tr> <tr> <td> Blood hematocrit (volume fraction)</td> <td>28 %</td> <td> 35-52</td> </tr> <tr> <td>Automated erythrocyte mean corpuscular volume</td> <td>94 [foz_us]</td> <td>80-99</td> </tr> <tr> <td>Automated erythrocyte mean corpuscular hemoglobin (mass per erythrocyte)</td> <td>28 pg</td> <td>25- 34</td> </tr> <tr> <td>Automated erythrocyte mean corpuscular hemoglobin concentration measurement (mass/volume)</td> <td >30 g/dL</td> <td>32-36</td> </tr> <tr> <td> Automated erythrocyte distribution width ratio</td> <td>16.0 %</td > <td>10.0-14.5</td> </tr> <tr> <td>Automated blood platelet count (count/volume)</td> <td>275 10*3/uL</td> <td>130-400</td> </tr> <tr> <td>Automated blood platelet mean volume measurement</td> <td>10.5 [foz_us]</td> <td>7.4- 10.4</td> </tr> <tr> <td>Automated blood neutrophils/100 leukocytes</td> <td>45 %</td> <td>42-75</td> </tr> <tr> <td>Automated blood lymphocytes/100 leukocytes</td> <td>40 %</td> <td>12-44</td> </tr> <tr> <td>Blood monocytes/100 leukocytes</td> <td>9 %</td> <td>0 -12</td> </tr> <tr> <td>Automated blood eosinophils/100 leukocytes</td> <td>6 %</td> <td>0-10</td> </tr> <tr> <td>Automated blood basophils/100 leukocytes</td> < td>1 %</td> <td>0-10</td> </tr> <tr> <td> Blood neutrophils automated count (number/volume)</td> <td>2.8 10*3</td > <td>1.8-7.8</td> </tr> <tr> <td>Blood lymphocytes automated count (number/volume)</td> <td>2.5 10*3</td> <td>1.0-4.0</td> </tr> <tr> <td>Blood monocytes automated count (number/volume)</td> <td>0.5 10*3</td> <td>0.0 -1.0</td> </tr> <tr> <td>Automated eosinophil count</td> <td>0.4 10*3/uL</td> <td>0.0-0.3</td> </tr> <tr > <td>Automated blood basophil count (count/volume)</td> <td> 0.1 10*3/uL</td> <td>0.0-0.1</td> </tr> <tr> < th colspan="10">PT panel in platelet poor plasma by coagulation assay - 05:46</th> </tr> <tr> <td>Prothrombin time (PT) in platelet poor plasma by coagulation assay</td> <td>31.1 s</td> <td>12.2-14.7</td> </tr> <tr> <td>INR in platelet poor plasma or blood by coagulation assay</td> <td>3.0 </td> <td> 0.8-1.4</td> </tr> <tr> <th colspan="10">Comprehensive metabolic panel - 02/08/18 05:46</th> </tr> <tr> <td> Serum or plasma sodium measurement (moles/volume)</td> <td>141 mmol/L</ td> <td>135-145</td> </tr> <tr> <td>Serum or plasma potassium measurement (moles/volume)</td> <td>4.1 mmol/L</td> <td>3.6-5.0</td> </tr> <tr> <td>Serum or plasma chloride measurement (moles/volume)</td> <td>106 mmol/L</td> < td>98-107</td> </tr> <tr> <td>Carbon dioxide</td> <td>25 mmol/L</td> <td>21-32</td> </tr> <tr> <td>Serum or plasma anion gap determination (moles/volume)</td> <td>10 mmol/L</td> <td>5-14</td> </tr> <tr> <td>Serum or plasma urea nitrogen measurement (mass/volume)</td> <td>25 mg/dL</td > <td>7-18</td> </tr> <tr> <td>Serum or plasma creatinine measurement (mass/volume)</td> <td>0.70 mg/dL</td> <td>0.60-1.30</td> </tr> <tr> <td>Serum or plasma urea nitrogen/creatinine mass ratio</td> <td>36 </td> <td>NRG</td> </tr> <tr> <td>Serum or plasma creatinine measurement with calculation of estimated glomerular filtration rate</td> <td>> </td> <td>NRG</td> </tr> <tr> <td>Serum or plasma glucose measurement (mass/volume)</td> <td>84 mg/dL</td> <td>70-105</td> </tr> <tr> <td>Serum or plasma calcium measurement (mass/volume)</td> <td>8.3 mg/dL</td> <td> 8.5-10.1</td> </tr> <tr> <td>Serum or plasma total bilirubin measurement (mass/volume)</td> <td>0.2 mg/dL</td> < td>0.1-1.0</td> </tr> <tr> <td>Serum or plasma alkaline phosphatase measurement (enzymatic activity/volume)</td> <td>132 U/L</ td> <td>40-136</td> </tr> <tr> <td>Serum or plasma aspartate aminotransferase measurement (enzymatic activity/volume)</td> <td>14 U/L</td> <td>5-34</td> </tr> <tr> <td>Serum or plasma alanine aminotransferase measurement (enzymatic activity/ volume)</td> <td>12 U/L</td> <td>0-55</td> </tr> <tr> <td>Serum or plasma protein measurement (mass/volume)</td> <td>5.6 g/dL</td> <td>6.4-8.2</td> </tr> <tr> <td>Serum or plasma albumin measurement (mass/volume)</td> <td>3.2 g/dL</td> <td>3.2-4.5</td> </tr> <tr> <td> CALCIUM CORRECTED</td> <td>8.9 mg/dL</td> <td>8.5-10.1</td> </tr> <tr> <th colspan="10">IRON TEST - 02/08/18 05:46</th > </tr> <tr> <td>Serum or plasma iron measurement (mass/ volume)</td> <td>30 %</td> <td>35-180</td> </tr> <tr> <th colspan="10">PT panel in platelet poor plasma by coagulation assay - 02/09/18 12:30</th> </tr> <tr> <td> Prothrombin time (PT) in platelet poor plasma by coagulation assay</td> <td>27.0 s</td> <td>12.2-14.7</td> </tr> <tr> <td>INR in platelet poor plasma or blood by coagulation assay</td> <td> 2.5 </td> <td>0.8-1.4</td> </tr> <tr> < colspan="10">PT panel in platelet poor plasma by coagulation assay - 02/13/18 05 :55</th> </tr> <tr> <td>Prothrombin time (PT) in platelet poor plasma by coagulation assay</td> <td>22.6 s</td> <td>12.2-14.7</td> </tr> <tr> <td>INR in platelet poor plasma or blood by coagulation assay</td> <td>2.0 </td> <td> 0.8-1.4</td> </tr> <tr> < colspan="10">Protime - 02/16 10:58</th> </tr> <tr> <td>INR</td> <td>1.5 < /td> <td>1.0-4.0</td> </tr> <tr> <td>Protime</td > <td>17.5 Sec</td> <td>9.9-12.8</td> </tr> <tr > < colspan="10">Protime - 03/02/18 14:20</th> </tr> < tr> <td>INR</td> <td>1.2 </td> <td>1.0-4.0</td> </tr> <tr> <td>Protime</td> <td>14.4 Sec</td> <td>9.9-12.8</td> </tr> <tr> < colspan="10"> Protime - 03/09/18 14:03</th> </tr> <tr> <td>INR</td> <td>1.2 </td> <td>1.0-4.0</td> </tr> <tr> <td>Protime</td> <td>13.5 Sec</td> <td>9.9-12.8</td> </tr> <tr> < colspan="10">Protime - 03/13/18 11:49</th> </tr> <tr> <td>INR</td> <td>1.6 </td> <td >1.0-4.0</td> </tr> <tr> <td>Protime</td> <td> 19.2 Sec</td> <td>9.9-12.8</td> </tr> <tr> < colspan="10">Urinalysis - 03/13/18 17:35</th> </tr> <tr> <td>Icotest</td> <td>N/A </td> <td>Negative</td> </tr> <tr> <td>Urine Crystals</td> <td>Amorphous material: moderate/HPF </td> <td /> </tr> <tr> <td>Urine Volume</td> <td>Urine Volume Sufficient (10mL) </td> <td /> </tr> <tr> <td>Urine-Appearance</td> <td>Clear </ td> <td>Clear</td> </tr> <tr> <td>Urine-Bacteria </td> <td>Negative </td> <td> </td> </tr> <tr> <td>Urine-Bilirubin</td> <td>Negative </td> <td> Negative</td> </tr> <tr> <td>Urine-Blood</td> < td>Negative </td> <td>Negative</td> </tr> <tr> < td>Urine-Color</td> <td>Yellow </td> <td>Colorless-Lt. Yellow< /td> </tr> <tr> <td>Urine-Epithelial Cells</td> <td>0-5/HPF </td> <td> </td> </tr> <tr> <td> Urine-Glucose</td> <td>Negative </td> <td>Negative</td> </tr> <tr> <td>Urine-Ketones</td> <td>Negative </td> <td>Negative</td> </tr> <tr> <td>Urine- Leukocytes</td> <td>Negative </td> <td>Negative</td> </ tr> <tr> <td>Urine-Nitrite</td> <td>Negative </td> <td>Negative</td> </tr> <tr> <td>Urine-Other</td> <td> Urine Saved if Culture Needed (48hrs from time of collection) </td > <td> </td> </tr> <tr> <td>Urine-pH</td> <td>7.5 </td> <td>5-8.5</td> </tr> <tr> <td> Urine-Protein</td> <td>Negative </td> <td>Negative</td> </tr> <tr> <td>Urine-RBC</td> <td>0-3/HPF </td> <td> </td> </tr> <tr> <td>Urine-Specific [place]</td > <td>1.020 </td> <td>1.000-1.030</td> </tr> <tr > <td>Urine-WBC</td> <td>0-2/HPF </td> <td> </td> </tr> <tr> <td>Urobilinogen</td> <td>0.2 </td> <td>0.2-1.0</td> </tr> <tr> < colspan="10"> Protime - 03/14/18 12:27</th> </tr> <tr> <td>INR</td> <td>2.1 </td> <td>1.0-4.0</td> </tr> <tr> <td>Protime</td> <td>24.5 Sec</td> <td>9.9-12.8</td> </tr> <tr> < colspan="10">Influenza - 03/14/18 14:50</th> </tr> <tr> <td>Influenza</td> <td>NEGATIVE FOR A and B </td> <td>0.00-0.00</td> </tr> <tr> < colspan="10">Lactic Acid - 03/14/18 14:50</th> </tr> <tr> <td>Lactic Acid</td> <td>29.7 mg/dL</td> <td>4.5-19.8</td> </tr> <tr> < colspan="10">Comprehensive Metabolic Panel - 03/14/18 15:03</th> </tr> <tr> <td>Albumin</td> <td>3.8 g/dL</td> <td>3.6-5.1</td> </tr> <tr> <td>ALP</td> <td>136 U/L</td> <td>35-130</td> < /tr> <tr> <td>ALT</td> <td>21 U/L</td> <td>6- 45</td> </tr> <tr> <td>Anion Gap</td> <td>20 </ td> <td>6-14</td> </tr> <tr> <td>AST</td> <td>44 U/L</td> <td>2-40</td> </tr> <tr> <td >BUN</td> <td>18 mg/dL</td> <td>5-25</td> </tr> <tr> <td>Calcium</td> <td>9.1 mg/dL</td> <td>8.3-10.4 </td> </tr> <tr> <td>Chloride</td> <td>102 mmol/ L</td> <td>95-114</td> </tr> <tr> <td>CO2</td> <td>23 mEq/L</td> <td>22-33</td> </tr> <tr> <td>Creat</td> <td>0.81 mg/dL</td> <td>0.50-1.50</td> </tr> <tr> <td>eGFR</td> <td>70 mL/min/1.73m2</td > <td>>59</td> </tr> <tr> <td>Globulin</td> <td>3.9 g/dL</td> <td>2.3-3.5</td> </tr> <tr> <td>Glucose</td> <td>84 mg/dL</td> <td>70-110</td> </tr> <tr> <td>Osmo</td> <td>290 </td> < td>280-295</td> </tr> <tr> <td>Potassium</td> < td>4.5 Hemolyzed 1+ mmol/L</td> <td>3.5-5.3</td> </tr> < tr> <td>Sodium</td> <td>140 mmol/L</td> <td>134-148</ td> </tr> <tr> <td>TBil</td> <td>0.4 mg/dL</td> <td>0.2-1.2</td> </tr> <tr> <td>TP</td> <td>7.7 g/dL</td> <td>6.0-8.3</td> </tr> <tr> <th colspan="10">C-Reactive Protein - 03/14/18 15:03</th> </tr> <tr> <td>C-Reactive Protein</td> <td>11.25 mg/dL</td> <td>0.00-0.50</td> </tr> <tr> <th colspan="10">Blood Culture - 03/14/18 15:03</th> </tr> <tr> <td>PRELIM CULTURE RESULTS</td> <td>Blood Culture Negative, No Growth Day 1 </td> <td /> </tr> <tr> <td>FINAL CULTURE RESULTS</td > <td>Blood Culture Negative, No Growth Day 5 </td> <td /> </tr> <tr> <td>CULTURE SOURCE</td> <td>IV [id number] 42 </td> <td /> </tr> <tr> <th colspan="10">Urinalysis - 03/14/18 15:20</th> </tr> <tr> <td>Icotest</td> <td>Negative </td> <td>Negative</td> < /tr> <tr> <td>Urine-Appearance</td> <td>Slightly Cloudy </td> <td>Clear</td> </tr> <tr> <td>Urine -Bacteria</td> <td>1+ </td> <td> </td> </tr> <tr > <td>Urine-Bilirubin</td> <td>1+ </td> <td>Negative< /td> </tr> <tr> <td>Urine-Blood</td> <td>1+ </td > <td>Negative</td> </tr> <tr> <td>Urine-Color</ td> <td>Yellow </td> <td>Colorless-Lt. Yellow</td> </tr > <tr> <td>Urine-Epithelial Cells</td> <td>5-10/HPF </ td> <td> </td> </tr> <tr> <td>Urine-Glucose</td > <td>Negative </td> <td>Negative</td> </tr> <tr > <td>Urine-Ketones</td> <td>1+ </td> <td>Negative</ td> </tr> <tr> <td>Urine-Leukocytes</td> <td> Negative </td> <td>Negative</td> </tr> <tr> <td> Urine-Nitrite</td> <td>Negative </td> <td>Negative</td> </tr> <tr> <td>Urine-pH</td> <td>5.5 </td> < td>5-8.5</td> </tr> <tr> <td>Urine-Protein</td> <td>2+ </td> <td>Negative</td> </tr> <tr> <td> Urine-RBC</td> <td>Few/HPF </td> <td> </td> </tr> <tr> <td>Urine-Specific [place]</td> <td>1.020 </td> <td>1.000-1.030</td> </tr> <tr> <td>Urine-WBC</td> <td>Negative </td> <td> </td> </tr> <tr> <td>Urobilinogen</td> <td>0.2 E.U./dL </td> <td>0.2-1.0</td > </tr> <tr> <th colspan="10">EKG - 03/14/18 15:25</th> </tr> <tr> <td>EKG</td> <td>Complete </td> <td /> </tr> <tr> <th colspan="10">Blood Culture - 03/14/18 15:25</th> </tr> <tr> <td>PRELIM CULTURE RESULTS </td> <td>Blood Culture Negative, No Growth Day 1 </td> <td / > </tr> <tr> <td>FINAL CULTURE RESULTS</td> <td> Blood Culture Negative, No Growth Day 5 </td> <td /> </tr> <tr> <td>CULTURE SOURCE</td> <td>rt. [id number] </td> <td /> </tr> <tr> <th colspan="10">Other Culture - 03/14/18 17:55</th> </tr> <tr> <td>PRELIM CULTURE RESULTS</td> <td>No Growth 24 hours </td> <td /> </tr> <tr> <td>FINAL CULTURE RESULTS</td> <td>No Growth 48 hours </td> <td /> </tr> <tr> <td>MEDIA PLATED</ td> <td>Setup at 16:27 on 03/14/2018 </td> <td /> </tr> <tr> < colspan="10">Lactic Acid - 03/14/18 19:00</th> < /tr> <tr> <td>Lactic Acid</td> <td>5.6 mg/dL</td> <td>4.5-19.8</td> </tr> <tr> <th colspan="10">BMP - 03/15/18 06:30</th> </tr> <tr> <td>Anion Gap</td> <td>12 </td> <td>6-14</td> </tr> <tr> <td>BUN </td> <td>10 mg/dL</td> <td>5-25</td> </tr> <tr > <td>Calcium</td> <td>7.6 mg/dL</td> <td>8.3-10.4</ td> </tr> <tr> <td>Chloride</td> <td>108 mmol/L< /td> <td>95-114</td> </tr> <tr> <td>CO2</td> <td>24 mEq/L</td> <td>22-33</td> </tr> <tr> <td>Creat</td> <td>0.59 mg/dL</td> <td>0.50-1.50</td> </tr> <tr> <td>eGFR</td> <td>101 mL/min/1.73m2</td > <td>>59</td> </tr> <tr> <td>Glucose</td> <td>81 mg/dL</td> <td>70-110</td> </tr> <tr> <td>Osmo</td> <td>287 </td> <td>280-295</td> </tr > <tr> <td>Potassium</td> <td>3.9 mmol/L</td> <td>3.5-5.3</td> </tr> <tr> <td>Sodium</td> <td> 140 mmol/L</td> <td>134-148</td> </tr> <tr> <th colspan="10">Anaerobic Culture - 03/15/18 08:32</th> </tr> <tr> <td>Anaerobic Culture</td> <td>Note </td> <td /> </tr> <tr> <th colspan="10">Other Culture - 03/15/18 08:32</ th> </tr> <tr> <td>PRELIM CULTURE RESULTS</td> < td>No Growth 48 hours </td> <td /> </tr> <tr> < td>FINAL CULTURE RESULTS</td> <td>No Growth 72 hours </td> < td /> </tr> <tr> <td>MEDIA PLATED</td> <td>Set up 09:15 on 03.15.2018 </td> <td /> </tr> <tr> < th colspan="10">Anaerobic Culture - 03/15/18 08:32</th> </tr> <tr > <td>ANAEROBIC CULTURE</td> <td>FINAL REPORT </td> < td /> </tr> <tr> <td>RESULT 1</td> <td>NO ANAEROBIC GROWTH IN 72 HOURS. </td> <td /> </tr> <tr> <th colspan="10">Gram Stain - 03/15/18 08:45</th> </tr> <tr > <td>GRAM STAIN</td> <td>Gram stain reveals moderate rbc, fewer wbc, NO bacteria identified. </td> <td /> </tr> < tr> <td>CULTURE SOURCE</td> <td>left knee aspirate </td> <td /> </tr> <tr> <th colspan="10">Protime - 06:44</th> </tr> <tr> <td>INR</td> <td>1.8 </ td> <td>1.0-4.0</td> </tr> <tr> <td>Protime</td > <td>21.8 Sec</td> <td>9.9-12.8</td> </tr> <tr > <th colspan="10">Comprehensive Metabolic Panel - 03/17/18 05:22</th> </tr> <tr> <td>Albumin</td> <td>3.1 g/dL</td> <td>3.6-5.1</td> </tr> <tr> <td>ALP</td> <td>111 U/L</td> <td>35-130</td> </tr> <tr> < td>ALT</td> <td>18 U/L</td> <td>6-45</td> </tr> <tr> <td>Anion Gap</td> <td>13 </td> <td>6-14</td> </tr> <tr> <td>AST</td> <td>20 U/L</td> <td>2-40</td> </tr> <tr> <td>BUN</td> <td>7 mg/ dL</td> <td>5-25</td> </tr> <tr> <td>Calcium</td > <td>8.4 mg/dL</td> <td>8.3-10.4</td> </tr> <tr > <td>Chloride</td> <td>107 mmol/L</td> <td>95-114</ td> </tr> <tr> <td>CO2</td> <td>27 mEq/L</td> <td>22-33</td> </tr> <tr> <td>Creat</td> <td>0.60 mg/dL</td> <td>0.50-1.50</td> </tr> <tr> <td>eGFR</td> <td>99 mL/min/1.73m2</td> <td>>59</td> </tr> <tr> <td>Globulin</td> <td>2.3 g/dL</td> <td>2.3-3.5</td> </tr> <tr> <td>Glucose</td> <td>75 mg/dL</td> <td>70-110</td> </tr> <tr> <td>Osmo</td> <td>292 </td> <td>280-295</td> </tr > <tr> <td>Potassium</td> <td>3.9 mmol/L</td> <td>3.5-5.3</td> </tr> <tr> <td>Sodium</td> <td> 143 mmol/L</td> <td>134-148</td> </tr> <tr> <td> TBil</td> <td>0.2 mg/dL</td> <td>0.2-1.2</td> </tr> <tr> <td>TP</td> <td>5.4 g/dL</td> <td>6.0-8.3</ td> </tr> <tr> <th colspan="10">Protime - 03/17/18 05:22 </th> </tr> <tr> <td>INR</td> <td>2.1 </td> <td>1.0-4.0</td> </tr> <tr> <td>Protime</td> <td>24.6 Sec</td> <td>9.9-12.8</td> </tr> <tr> <th colspan="10">Other Culture - 03/17/18 13:52</th> </tr> <tr > <td>PRELIM CULTURE RESULTS</td> <td>No Growth 24 hours </td > <td /> </tr> <tr> <td>FINAL CULTURE RESULTS</ td> <td>No Growth 48 hours </td> <td /> </tr> < tr> <th colspan="10">Anaerobic Culture - 03/17/18 13:52</th> </ tr> <tr> <td>Anaerobic Culture</td> <td>Note </td> <td /> </tr> <tr> <th colspan="10">Gram Stain - 06/28 13:52</th> </tr> <tr> <td>GRAM STAIN</td> <td>Gram Positive Cocci in Clusters </td> <td /> </tr> < tr> <td>CULTURE SOURCE</td> <td>L [id number] </td> < td /> </tr> <tr> <th colspan="10">Other Culture - 13:52</th> </tr> <tr> <td>PRELIM CULTURE RESULTS</td> <td>No Growth 24 hours </td> <td /> </tr> <tr> <th colspan="10">Anaerobic Culture - 03/17/18 13:52</th> </tr> <tr> <td>ANAEROBIC CULTURE</td> <td>FINAL REPORT </td > <td /> </tr> <tr> <td>RESULT 1</td> < td>NO ANAEROBIC GROWTH IN 72 HOURS. </td> <td /> </tr> < tr> <th colspan="10">Magnesium - 03/18/18 10:00</th> </tr> <tr> <td>Mg++</td> <td>2.4 mg/dL</td> <td>1.6-2.6< /td> </tr> <tr> <th colspan="10">Comprehensive Metabolic Panel - 03/19/18 07:22</th> </tr> <tr> <td>Albumin</td> <td>3.3 g/dL</td> <td>3.6-5.1</td> </tr> <tr> <td>ALP</td> <td>119 U/L</td> <td>35-130</td> < /tr> <tr> <td>ALT</td> <td>12 U/L</td> <td>6- 45</td> </tr> <tr> <td>Anion Gap</td> <td>16 </ td> <td>6-14</td> </tr> <tr> <td>AST</td> <td>16 U/L</td> <td>2-40</td> </tr> <tr> <td >BUN</td> <td>10 mg/dL</td> <td>5-25</td> </tr> <tr> <td>Calcium</td> <td>8.9 mg/dL</td> <td>8.3-10.4 </td> </tr> <tr> <td>Chloride</td> <td>105 mmol/ L</td> <td>95-114</td> </tr> <tr> <td>CO2</td> <td>24 mEq/L</td> <td>22-33</td> </tr> <tr> <td>Creat</td> <td>0.64 mg/dL</td> <td>0.50-1.50</td> </tr> <tr> <td>eGFR</td> <td>92 mL/min/1.73m2</td > <td>>59</td> </tr> <tr> <td>Globulin</td> <td>3.0 g/dL</td> <td>2.3-3.5</td> </tr> <tr> <td>Glucose</td> <td>96 mg/dL</td> <td>70-110</td> </tr> <tr> <td>Osmo</td> <td>290 </td> < td>280-295</td> </tr> <tr> <td>Potassium</td> < td>3.9 mmol/L</td> <td>3.5-5.3</td> </tr> <tr> < td>Sodium</td> <td>141 mmol/L</td> <td>134-148</td> </ tr> <tr> <td>TBil</td> <td>0.3 mg/dL</td> <td> 0.2-1.2</td> </tr> <tr> <td>TP</td> <td>6.3 g/dL </td> <td>6.0-8.3</td> </tr> <tr> < colspan= "10">Protime - 03/20/18 06:47</th> </tr> <tr> <td>INR</ td> <td>2.7 </td> <td>1.0-4.0</td> </tr> <tr> <td>Protime</td> <td>32.3 Sec</td> <td>9.9-12.8</td> </tr> <tr> < colspan="10">Protime - 03/21/18 06:35</th > </tr> <tr> <td>INR</td> <td>3.3 </td> <td>1.0-4.0</td> </tr> <tr> <td>Protime</td> < td>39.3 Sec</td> <td>9.9-12.8</td> </tr> <tr> < colspan="10">Protime - 03/22/18 13:20</th> </tr> <tr> <td>INR</td> <td>3.1 </td> <td>1.0-4.0</td> </tr> <tr> <td>Protime</td> <td>37.3 Sec</td> <td>9.9- 12.8</td> </tr> <tr> <th colspan="10">Comprehensive Metabolic Panel - 03/24/18 13:45</th> </tr> <tr> <td> Albumin</td> <td>3.7 g/dL</td> <td>3.6-5.1</td> </tr> <tr> <td>ALP</td> <td>145 U/L</td> <td>35-130< /td> </tr> <tr> <td>ALT</td> <td>11 U/L</td> <td>6-45</td> </tr> <tr> <td>Anion Gap</td> <td>16 </td> <td>6-14</td> </tr> <tr> <td> AST</td> <td>17 U/L</td> <td>2-40</td> </tr> <tr > <td>BUN</td> <td>16 mg/dL</td> <td>5-25</td> </tr> <tr> <td>Calcium</td> <td>9.3 mg/dL</td> <td>8.3-10.4</td> </tr> <tr> <td>Chloride</td> <td>103 mmol/L</td> <td>95-114</td> </tr> <tr> <td>CO2</td> <td>28 mEq/L</td> <td>22-33</td> </tr > <tr> <td>Creat</td> <td>0.72 mg/dL</td> <td> 0.50-1.50</td> </tr> <tr> <td>eGFR</td> <td>80 mL/min/1.73m2</td> <td>>59</td> </tr> <tr> < td>Globulin</td> <td>2.5 g/dL</td> <td>2.3-3.5</td> </ tr> <tr> <td>Glucose</td> <td>99 mg/dL</td> < td>70-110</td> </tr> <tr> <td>Osmo</td> <td>296 </td> <td>280-295</td> </tr> <tr> <td>Potassium< /td> <td>4.3 mmol/L</td> <td>3.5-5.3</td> </tr> <tr> <td>Sodium</td> <td>143 mmol/L</td> <td>134-148< /td> </tr> <tr> <td>TBil</td> <td>0.4 mg/dL</td > <td>0.2-1.2</td> </tr> <tr> <td>TP</td> <td>6.2 g/dL</td> <td>6.0-8.3</td> </tr> <tr> < colspan="10">Protime - 03/30/18 10:19</th> </tr> <tr> <td>INR</td> <td>2.6 </td> <td>1.0-4.0</td> </tr > <tr> <td>Protime</td> <td>31.4 Sec</td> <td> 9.9-12.8</td> </tr> <tr> <th colspan="10">Urine Culture - 03/30/18 12:32</th> </tr> <tr> <td>PRELIM CULTURE RESULTS</td> <td>No Growth 24 hours </td> <td /> </tr> <tr> <td>FINAL CULTURE RESULTS</td> <td>No Growth 48 hours </td> <td /> </tr> <tr> <td>MEDIA PLATED</ td> <td>Setup at 13:30 on 03/30/2018 </td> <td /> </tr> <tr> <td>CULTURE SOURCE</td> <td>Cath </td> < td /> </tr> <tr> < colspan="10">Urinalysis - 03/30/18 12:32</th> </tr> <tr> <td>Icotest</td> <td>N/A < /td> <td>Negative</td> </tr> <tr> <td>Urine Volume</td> <td>Urine Volume Sufficient (10mL) </td> <td /> </tr> <tr> <td>Urine-Appearance</td> <td>Clear </ td> <td>Clear</td> </tr> <tr> <td>Urine-Bacteria </td> <td>Negative </td> <td> </td> </tr> <tr> <td>Urine-Bilirubin</td> <td>Negative </td> <td> Negative</td> </tr> <tr> <td>Urine-Blood</td> < td>Negative </td> <td>Negative</td> </tr> <tr> < td>Urine-Color</td> <td>Yellow </td> <td>Colorless-Lt. Yellow< /td> </tr> <tr> <td>Urine-Epithelial Cells</td> <td>0-5/HPF </td> <td> </td> </tr> <tr> <td> Urine-Glucose</td> <td>Negative </td> <td>Negative</td> </tr> <tr> <td>Urine-Ketones</td> <td>Negative </td> <td>Negative</td> </tr> <tr> <td>Urine- Leukocytes</td> <td>Negative </td> <td>Negative</td> </ tr> <tr> <td>Urine-Nitrite</td> <td>Negative </td> <td>Negative</td> </tr> <tr> <td>Urine-Other</td> <td>Culture to follow </td> <td> </td> </tr> <tr > <td>Urine-pH</td> <td>6.0 </td> <td>5-8.5</td> </tr> <tr> <td>Urine-Protein</td> <td>Negative </td > <td>Negative</td> </tr> <tr> <td>Urine-RBC</td > <td>Negative </td> <td> </td> </tr> <tr> <td>Urine-Specific [place]</td> <td>1.010 </td> <td>1.000 -1.030</td> </tr> <tr> <td>Urine-WBC</td> <td>0- 2/HPF </td> <td> </td> </tr> <tr> <td> Urobilinogen</td> <td>0.2 E.U./dL </td> <td>0.2-1.0</td> </tr> </tbody> </table> </text> <entry> <organizer moodCode="EVN " classCode="BATTERY"> <templateId root="[id number]" / > <id nullFlavor="NA" /> <code codeSystem="local" code="004184" displayName="COMPREHENSIVE METABOLIC PANEL" /> <statusCode code="completed " /> <component> <observation moodCode="EVN" classCode="OBS"> <templateId root="[id number]" /> <id nullFlavor ="NA" /> <code codeSystem="local" code="248500" displayName="Albumin, Serum" /> <statusCode code="completed" /> <effectiveTime value ="[id number]" /> <value unit="g/dL" xsi:type="PQ" value="4.5" /> <referenceRange> <observationRange> <text>3.6-5.1< /text> </observationRange> </referenceRange> </ observation> </component> <component> <observation moodCode= "EVN" classCode="OBS"> <templateId root="[id number]..4.2 " /> <id nullFlavor="NA" /> <code codeSystem="local" code= "636627" displayName="ALP, Serum" /> <statusCode code="completed" /> <effectiveTime value="" /> <value unit="U/L" xsi: type="PQ" value="78" /> <referenceRange> <observationRange> <text>33-130</text> </observationRange> </ referenceRange> </observation> </component> <component> <observation moodCode="EVN" classCode="OBS"> <templateId root= "[id number]...4.2" /> <id nullFlavor="NA" /> < code codeSystem="local" code="248672" displayName="ALT (SGPT), Serum" /> <statusCode code="completed" /> <effectiveTime value="" /> <value unit="U/L" xsi:type="PQ" value="21" /> < referenceRange> <observationRange> <text>6-29</text> </observationRange> </referenceRange> </observation> </component> <component> <observation moodCode="EVN" classCode= "OBS"> <templateId root="[id number]..4.2" /> < id nullFlavor="NA" /> <code codeSystem="local" code="298257" displayName="AST (SGOT), Serum" /> <statusCode code="completed" /> <effectiveTime value="" /> <value unit="U/L" xsi:type ="PQ" value="24" /> <referenceRange> <observationRange> <text>10-35</text> </observationRange> </ referenceRange> </observation> </component> <component> <observation moodCode="EVN" classCode="OBS"> <templateId root= "[id number]" /> <id nullFlavor="NA" /> < code codeSystem="local" code="835539" displayName="Bilirubin,Tot,Serum" /> <statusCode code="completed" /> <effectiveTime value=" " /> <value unit="mg/dL" xsi:type="PQ" value="0.5" /> < referenceRange> <observationRange> <text>0.2-1.2</text> </observationRange> </referenceRange> </observation > </component> <component> <observation moodCode="EVN" classCode="OBS"> <templateId root="[id number]..22.4.2" /> <id nullFlavor="NA" /> <code codeSystem="local" code="824782" displayName="BUN" /> <statusCode code="completed" /> < effectiveTime value="" /> <value unit="mg/dL" xsi:type="PQ " value="18" /> <referenceRange> <observationRange> <text>7-25</text> </observationRange> </referenceRange > </observation> </component> <component> <observation moodCode="EVN" classCode="OBS"> <templateId root= "[id number].2" /> <id nullFlavor="NA" /> < code codeSystem="local" code="477153" displayName="Calcium, Serum" /> < statusCode code="completed" /> <effectiveTime value="" /> <value unit="mg/dL" xsi:type="PQ" value="9.9" /> < referenceRange> <observationRange> <text>8.6-10.4</text > </observationRange> </referenceRange> </observation > </component> <component> <observation moodCode="EVN" classCode="OBS"> <templateId root="[id number]...4.2" /> <id nullFlavor="NA" /> <code codeSystem="local" code="572618" displayName="Creatinine, Serum" /> <statusCode code="completed" /> <effectiveTime value="" /> <value unit="mg/dL" xsi: type="PQ" value="0.89" /> <referenceRange> <observationRange > <text>0.50-0.99</text> </observationRange> </ referenceRange> </observation> </component> <component> <observation moodCode="EVN" classCode="OBS"> <templateId root= "03.28.840.1.182929.10...4.2" /> <id nullFlavor="NA" /> < code codeSystem="local" code="925067" displayName="Glucose, Serum" /> < statusCode code="completed" /> <effectiveTime value="" /> <value unit="mg/dL" xsi:type="PQ" value="112" /> < interpretationCode codeSystem="local" code="*" /> <referenceRange> <observationRange> <text>65-99</text> </ observationRange> </referenceRange> </observation> </ component> <component> <observation moodCode="EVN" classCode="OBS"> <templateId root="03.28.830.1.397355.10..22.4.2" /> <id nullFlavor="NA" /> <code codeSystem="local" code="522263" displayName= "Potassium (K), Serum" /> <statusCode code="completed" /> < effectiveTime value="" /> <value unit="mmol/L" xsi:type="PQ " value="4.4" /> <referenceRange> <observationRange> <text>3.5-5.3</text> </observationRange> </ referenceRange> </observation> </component> <component> <observation moodCode="EVN" classCode="OBS"> <templateId root= "16.840.1.500650.11.29.21.4.2" /> <id nullFlavor="NA" /> < code codeSystem="local" code="606774" displayName="Protein, Total Serum" /> <statusCode code="completed" /> <effectiveTime value= "" /> <value unit="g/dL" xsi:type="PQ" value="7.2" /> <referenceRange> <observationRange> <text>6.1-8.1</ text> </observationRange> </referenceRange> </ observation> </component> <component> <observation moodCode= "EVN" classCode="OBS"> <templateId root="03.28.840.1.349975.10...4.2 " /> <id nullFlavor="NA" /> <code codeSystem="local" code= "063369" displayName="eGFR NON-AFR. SYRIAN" /> <statusCode code= "completed" /> <effectiveTime value="" /> <value unit="mL/min/1.73m2" xsi:type="PQ" value="67" /> <referenceRange> <observationRange> <text>> OR=60</text> </ observationRange> </referenceRange> </observation> </ component> <component> <observation moodCode="EVN" classCode="OBS"> <templateId root="216.840.1.394815.10...4.2" /> <id nullFlavor="NA" /> <code codeSystem="local" code="920787" displayName= "eGFR " /> <statusCode code="completed" /> < effectiveTime value="" /> <value unit="mL/min/1.73m2" xsi: type="PQ" value="78" /> <referenceRange> <observationRange> <text>> OR=60</text> </observationRange> </ referenceRange> </observation> </component> <component> <observation moodCode="EVN" classCode="OBS"> <templateId root= "2.840.1.203792.10..4.2" /> <id nullFlavor="NA" /> < code codeSystem="local" code="042042" displayName="BUN/CREATININE RATIO" /> <statusCode code="completed" /> <effectiveTime value= "" /> <value unit="(calc)" xsi:type="PQ" value="NOT APPLICABLE" /> <referenceRange> <observationRange> <text>6-22</text> </observationRange> </referenceRange > </observation> </component> <component> <observation moodCode="EVN" classCode="OBS"> <templateId root= "216.840.1.475331.10...4.2" /> <id nullFlavor="NA" /> < code codeSystem="local" code="813793" displayName="SODIUM" /> < statusCode code="completed" /> <effectiveTime value="" /> <value unit="mmol/L" xsi:type="PQ" value="141" /> < referenceRange> <observationRange> <text>135-146</text> </observationRange> </referenceRange> </observation > </component> <component> <observation moodCode="EVN" classCode="OBS"> <templateId root="216.840.1.877650.10..22.4.2" /> <id nullFlavor="NA" /> <code codeSystem="local" code="298459" displayName="CHLORIDE" /> <statusCode code="completed" /> < effectiveTime value="" /> <value unit="mmol/L" xsi:type="PQ " value="98" /> <referenceRange> <observationRange> <text>98-110</text> </observationRange> </ referenceRange> </observation> </component> <component> <observation moodCode="EVN" classCode="OBS"> <templateId root= "03.28.840.1.650736.10..4.2" /> <id nullFlavor="NA" /> < code codeSystem="local" code="158466" displayName="CARBON DIOXIDE" /> < statusCode code="completed" /> <effectiveTime value="" /> <value unit="mmol/L" xsi:type="PQ" value="28" /> < referenceRange> <observationRange> <text>19-30</text> </observationRange> </referenceRange> </observation> </component> <component> <observation moodCode="EVN" classCode= "OBS"> <templateId root="03.28.840.1.041552.10.20.22.4.2" /> < id nullFlavor="NA" /> <code codeSystem="local" code="972196" displayName="GLOBULIN" /> <statusCode code="completed" /> < effectiveTime value="" /> <value unit="g/dL(calc)" xsi:type ="PQ" value="2.7" /> <referenceRange> <observationRange> <text>1.9-3.7</text> </observationRange> </ referenceRange> </observation> </component> <component> <observation moodCode="EVN" classCode="OBS"> <templateId root= "03.28.840.1.358277.11.29.21.4.2" /> <id nullFlavor="NA" /> < code codeSystem="local" code="" displayName="ALBUMIN/GLOBULIN RATIO" /> <statusCode code="completed" /> <effectiveTime value= "" /> <value unit="(calc)" xsi:type="PQ" value="1.7" /> <referenceRange> <observationRange> <text>1.0-2.5 </text> </observationRange> </referenceRange> </ observation> </component> </organizer> </entry> <entry> <organizer moodCode="EVN" classCode="BATTERY"> <templateId root= "03.28.840.1.462813.11.29.21.4.1" /> <id nullFlavor="NA" /> <code codeSystem="local" code="524852" displayName="SED RATE BY MODIFIED WESTERGREN" / > <statusCode code="completed" /> <component> <observation moodCode="EVN" classCode="OBS"> <templateId root= "03.28.840.1.535979.11.29.21.4.2" /> <id nullFlavor="NA" /> < code codeSystem="local" code="592033" displayName="Sedimentation Rate,W" /> <statusCode code="completed" /> <effectiveTime value= "" /> <value unit="mm/h" xsi:type="PQ" value="1" /> <referenceRange> <observationRange> <text>< OR=30< /text> </observationRange> </referenceRange> </ observation> </component> </organizer> </entry> <entry> <organizer moodCode="EVN" classCode="BATTERY"> <templateId root= "16.840.1.392891.10..22.4.1" /> <id nullFlavor="NA" /> <code codeSystem="local" code="120404" displayName="C-REACTIVE PROTEIN" /> < statusCode code="completed" /> <component> <observation moodCode= "EVN" classCode="OBS"> <templateId root="216.840.1.309972.10..22.4.2 " /> <id nullFlavor="NA" /> <code codeSystem="local" code= "963911" displayName="CRP, Qn" /> <statusCode code="completed" /> <effectiveTime value="" /> <value unit="mg/dL" xsi: type="PQ" value="0.30" /> <referenceRange> <observationRange > <text><0.80</text> </observationRange> </ referenceRange> </observation> </component> </organizer> </entry > <entry> <organizer moodCode="EVN" classCode="BATTERY"> <templateId root="216.840.1.931734.10..22.4.1" /> <id nullFlavor="NA" /> <code codeSystem="local" code="GHH7141" displayName="Blood Culture" /> < statusCode code="completed" /> <component> <observation moodCode= "EVN" classCode="OBS"> <templateId root="2.16.840.1.533507.10..4.2 " /> <id nullFlavor="NA" /> <code codeSystem="local" code= "Jgh5046" displayName="PRELIM CULTURE RESULTS" /> <statusCode code= "completed" /> <effectiveTime value="566855174861" /> <value unit="" xsi:type="PQ" value="Blood Culture Negative, No Growth Day 1" /> <referenceRange> <observationRange> <text /> </observationRange> </referenceRange> </observation> </ component> <component> <observation moodCode="EVN" classCode="OBS"> <templateId root="2.16.840.1.077662.10..4.2" /> <id nullFlavor="NA" /> <code codeSystem="local" code="Xqc8715" displayName= "FINAL CULTURE RESULTS" /> <statusCode code="completed" /> < effectiveTime value="050392635663" /> <value unit="" xsi:type="PQ" value="Blood Culture Negative, No Growth Day 5" /> <referenceRange> <observationRange> <text /> </observationRange > </referenceRange> </observation> </component> < component> <observation moodCode="EVN" classCode="OBS"> < templateId root="216.840.1.742909.10..4.2" /> <id nullFlavor="NA " /> <code codeSystem="local" code="Zrt8372" displayName="MEDIA PLATED " /> <statusCode code="completed" /> <effectiveTime value= "281511077623" /> <value unit="" xsi:type="PQ" value="Setup at 12:22 on 11/14/2015 Blood Culture Media Position C-43" /> <referenceRange> <observationRange> <text /> </observationRange > </referenceRange> </observation> </component> < component> <observation moodCode="EVN" classCode="OBS"> < templateId root="216.840.1.805296.11.29.21.4.2" /> <id nullFlavor="NA " /> <code codeSystem="local" code="Hjl7183" displayName="CULTURE SOURCE" /> <statusCode code="completed" /> <effectiveTime value="481283814752" /> <value unit="" xsi:type="PQ" value="right ac" / > <referenceRange> <observationRange> <text /> </observationRange> </referenceRange> </observation > </component> </organizer> </entry> <entry> <organizer moodCode= "EVN" classCode="BATTERY"> <templateId root="216.840.1.604138.11.29.21.4.1 " /> <id nullFlavor="NA" /> <code codeSystem="local" code="ORD4" displayName="BMP" /> <statusCode code="completed" /> <component> <observation moodCode="EVN" classCode="OBS"> <templateId root= "216.840.1.283533.10..22.4.2" /> <id nullFlavor="NA" /> < code codeSystem="local" code="Res61" displayName="Anion Gap" /> < statusCode code="completed" /> <effectiveTime value="495182386314" /> <value unit="" xsi:type="PQ" value="14" /> <referenceRange> <observationRange> <text>6-14</text> </ observationRange> </referenceRange> </observation> </ component> <component> <observation moodCode="EVN" classCode="OBS"> <templateId root="216.840.1.082961.11.29.21.4.2" /> <id nullFlavor="NA" /> <code codeSystem="local" code="Res26" displayName= "BUN" /> <statusCode code="completed" /> <effectiveTime value= "" /> <value unit="mg/dL" xsi:type="PQ" value="15" /> <referenceRange> <observationRange> <text>5-25</ text> </observationRange> </referenceRange> </ observation> </component> <component> <observation moodCode= "EVN" classCode="OBS"> <templateId root="2.16.840.1.541107.11.29.21.4.2 " /> <id nullFlavor="NA" /> <code codeSystem="local" code= "Res5" displayName="Calcium" /> <statusCode code="completed" /> <effectiveTime value="" /> <value unit="mg/dL" xsi:type= "PQ" value="9.2" /> <referenceRange> <observationRange> <text>8.3-10.4</text> </observationRange> </ referenceRange> </observation> </component> <component> <observation moodCode="EVN" classCode="OBS"> <templateId root= "2.16.840.1.808573.11.29.21.4.2" /> <id nullFlavor="NA" /> < code codeSystem="local" code="Res21" displayName="Chloride" /> < statusCode code="completed" /> <effectiveTime value="" /> <value unit="mmol/L" xsi:type="PQ" value="104" /> < referenceRange> <observationRange> <text>95-114</text> </observationRange> </referenceRange> </observation> </component> <component> <observation moodCode="EVN" classCode ="OBS"> <templateId root="16.840.1.931978.10.20.22.4.2" /> < id nullFlavor="NA" /> <code codeSystem="local" code="Res49" displayName ="CO2" /> <statusCode code="completed" /> <effectiveTime value ="" /> <value unit="mEq/L" xsi:type="PQ" value="28" /> <referenceRange> <observationRange> <text>22-33</ text> </observationRange> </referenceRange> </ observation> </component> <component> <observation moodCode= "EVN" classCode="OBS"> <templateId root="16.840.1.958504.10.22.4.2 " /> <id nullFlavor="NA" /> <code codeSystem="local" code= "Zee479" displayName="Creat" /> <statusCode code="completed" /> <effectiveTime value="" /> <value unit="mg/dL" xsi:type= "PQ" value="0.62" /> <referenceRange> <observationRange> <text>0.50-1.50</text> </observationRange> </ referenceRange> </observation> </component> <component> <observation moodCode="EVN" classCode="OBS"> <templateId root= "03.28.840.1.218584.10.2022.4.2" /> <id nullFlavor="NA" /> < code codeSystem="local" code="Ntv668" displayName="eGFR" /> < statusCode code="completed" /> <effectiveTime value="" /> <value unit="mL/min/1.73m2" xsi:type="PQ" value="96" /> < referenceRange> <observationRange> <text>>59</text> </observationRange> </referenceRange> </observation> </component> <component> <observation moodCode="EVN" classCode ="OBS"> <templateId root="216.840.1.622036.1022.4.2" /> < id nullFlavor="NA" /> <code codeSystem="local" code="Res60" displayName ="Glucose" /> <statusCode code="completed" /> <effectiveTime value="" /> <value unit="mg/dL" xsi:type="PQ" value="91" / > <referenceRange> <observationRange> <text>70- 110</text> </observationRange> </referenceRange> </ observation> </component> <component> <observation moodCode= "EVN" classCode="OBS"> <templateId root="03.28.840.1.958721.11.29.21.4.2 " /> <id nullFlavor="NA" /> <code codeSystem="local" code= "Res52" displayName="Osmo" /> <statusCode code="completed" /> <effectiveTime value="" /> <value unit="" xsi:type="PQ" value="294" /> <referenceRange> <observationRange> <text>280-295</text> </observationRange> </ referenceRange> </observation> </component> <component> <observation moodCode="EVN" classCode="OBS"> <templateId root= "16.840.1.344501.10.22.4.2" /> <id nullFlavor="NA" /> < code codeSystem="local" code="Res20" displayName="Potassium" /> < statusCode code="completed" /> <effectiveTime value="" /> <value unit="mmol/L" xsi:type="PQ" value="3.6" /> < referenceRange> <observationRange> <text>3.5-5.3</text> </observationRange> </referenceRange> </observation > </component> <component> <observation moodCode="EVN" classCode="OBS"> <templateId root="16.840.1.390577.10.20.22.4.2" /> <id nullFlavor="NA" /> <code codeSystem="local" code="Res19" displayName="Sodium" /> <statusCode code="completed" /> < effectiveTime value="541880139371" /> <value unit="mmol/L" xsi:type="PQ " value="142" /> <referenceRange> <observationRange> <text>134-148</text> </observationRange> </ referenceRange> </observation> </component> </organizer> </entry > <entry> <organizer moodCode="EVN" classCode="BATTERY"> <templateId root="16.840.1.908138.10.20.22.4.1" /> <id nullFlavor="NA" /> <code codeSystem="local" code="19385-6" displayName="Bacteria identification in isolate by anaerobe culture" /> <statusCode code="completed" /> < component> <observation moodCode="EVN" classCode="OBS"> < templateId root="16.840.1.133790.10.20.22.4.2" /> <id nullFlavor="NA " /> <code codeSystem="local" code="02723-2" displayName="Bacteria identification in isolate by anaerobe culture" /> <statusCode code= "completed" /> <effectiveTime value="061152300686" /> <value unit="" xsi:type="PQ" value="NG" /> <referenceRange> < observationRange> <text>NRG</text> </observationRange> </referenceRange> </observation> </component> </ organizer> </entry> <entry> <organizer moodCode="EVN" classCode="BATTERY"> <templateId root="03.28.840.1.468264.10...4.1" /> <id nullFlavor= "NA" /> <code codeSystem="local" code="664-3" displayName="Gram stain microscopy" /> <statusCode code="completed" /> <component> < observation moodCode="EVN" classCode="OBS"> <templateId root= "840.1.724346.11.29.21.4.2" /> <id nullFlavor="NA" /> < code codeSystem="local" code="GRAMX" displayName="GRAM STAIN RESULT" /> <statusCode code="completed" /> <effectiveTime value="179616525803" / > <value unit="" xsi:type="PQ" value="NO WBC'S OR BACTERIA OBSERVED " /> <referenceRange> <observationRange> <text> NRG</text> </observationRange> </referenceRange> </ observation> </component> </organizer> </entry> <entry> <organizer moodCode="EVN" classCode="BATTERY"> <templateId root= "840.1.026892.10.22.4.1" /> <id nullFlavor="NA" /> <code codeSystem="local" code="6462-6" displayName="Bacteria identification in wound by culture" /> <statusCode code="completed" /> <component> < observation moodCode="EVN" classCode="OBS"> <templateId root= "03.28.840.1.315235.10..22.4.2" /> <id nullFlavor="NA" /> < code codeSystem="local" code="6462-6" displayName="Bacteria identification in wound by culture" /> <statusCode code="completed" /> < effectiveTime value="087888002855" /> <value unit="" xsi:type="PQ" value="NG" /> <referenceRange> <observationRange> <text>NRG</text> </observationRange> </referenceRange> </observation> </component> </organizer> </entry> <entry> < organizer moodCode="EVN" classCode="BATTERY"> <templateId root= "216.840.1.588667.10.20.22.4.1" /> <id nullFlavor="NA" /> <code codeSystem="local" code="17504-0" displayName="Bacteria identification in isolate by anaerobe culture" /> <statusCode code="completed" /> < component> <observation moodCode="EVN" classCode="OBS"> < templateId root="216.840.1.981237.10.20.22.4.2" /> <id nullFlavor="NA " /> <code codeSystem="local" code="83915-6" displayName="Bacteria identification in isolate by anaerobe culture" /> <statusCode code= "completed" /> <effectiveTime value="033564111820" /> <value unit="" xsi:type="PQ" value="NOANA" /> <referenceRange> < observationRange> <text>NRG</text> </observationRange> </referenceRange> </observation> </component> </ organizer> </entry> <entry> <organizer moodCode="EVN" classCode="BATTERY"> <templateId root="16.840.1.317734.10.20.22.4.1" /> <id nullFlavor= "NA" /> <code codeSystem="local" code="664-3" displayName="Gram stain microscopy" /> <statusCode code="completed" /> <component> < observation moodCode="EVN" classCode="OBS"> <templateId root= "2.16.840.1.175813.10..22.4.2" /> <id nullFlavor="NA" /> < code codeSystem="local" code="GRAMX" displayName="GRAM STAIN RESULT" /> <statusCode code="completed" /> <effectiveTime value="567519677646" / > <value unit="" xsi:type="PQ" value="NO WBC'S OR BACTERIA OBSERVED " /> <referenceRange> <observationRange> <text> NRG</text> </observationRange> </referenceRange> </ observation> </component> </organizer> </entry> <entry> <organizer moodCode="EVN" classCode="BATTERY"> <templateId root= "2.16.840.1.848137.10..22.4.1" /> <id nullFlavor="NA" /> <code codeSystem="local" code="6462-6" displayName="Bacteria identification in wound by culture" /> <statusCode code="completed" /> <component> < observation moodCode="EVN" classCode="OBS"> <templateId root= "2.16.840.1.725962.10.20.22.4.2" /> <id nullFlavor="NA" /> < code codeSystem="local" code="6462-6" displayName="Bacteria identification in wound by culture" /> <statusCode code="completed" /> < effectiveTime value="579009020372" /> <value unit="" xsi:type="PQ" value="790852231" /> <referenceRange> <observationRange> <text>NRG</text> </observationRange> </ referenceRange> </observation> </component> <component> <observation moodCode="EVN" classCode="OBS"> <templateId root= "03.28.840.1.614916.10..22.4.2" /> <id nullFlavor="NA" /> < code codeSystem="local" code="FTEXTERNAL" displayName="FREE TEXT EXTERNAL" /> <statusCode code="completed" /> <effectiveTime value= "431830112885" /> <value unit="" xsi:type="PQ" value="SENSITIVITY REPORTED 12/23 13:10" /> <referenceRange> <observationRange > <text>NRG</text> </observationRange> </ referenceRange> </observation> </component> <component> <observation moodCode="EVN" classCode="OBS"> <templateId root= "840.1.222252.22.4.2" /> <id nullFlavor="NA" /> < code codeSystem="local" code="G" displayName="QUANTITY OF GROWTH" /> < statusCode code="completed" /> <effectiveTime value="310955721362" /> <value unit="" xsi:type="PQ" value="Scant Growth" /> < referenceRange> <observationRange> <text>NRG</text> </observationRange> </referenceRange> </observation> </component> </organizer> </entry> <entry> <organizer moodCode="EVN" classCode="BATTERY"> <templateId root="03.28.840.1.071179.102022.4.1" /> <id nullFlavor="NA" /> <code codeSystem="local" code="33945-5" displayName="Bacterial susceptibility panel" /> <statusCode code="completed " /> <component> <observation moodCode="EVN" classCode="OBS"> <templateId root="03.28.840.1.960016.1020.4.2" /> <id nullFlavor ="NA" /> <code codeSystem="local" code="516-5" displayName= "Trimethoprim/sulfamethoxazole susceptibility test by minimum inhibitoryconcentration" /> <statusCode code="completed" /> < effectiveTime value="631613479947" /> <value unit="" xsi:type="PQ" value="<=" /> <interpretationCode codeSystem="local" code="*" /> <referenceRange> <observationRange> <text>NRG</ text> </observationRange> </referenceRange> </ observation> </component> </organizer> </entry> <entry> <organizer moodCode="EVN" classCode="BATTERY"> <templateId root= "216.840.1.105584.10..4.1" /> <id nullFlavor="NA" /> <code codeSystem="local" code="ORD22" displayName="Creatinine" /> <statusCode code="completed" /> <component> <observation moodCode="EVN" classCode="OBS"> <templateId root="216.840.1.014333.10..4.2" /> <id nullFlavor="NA" /> <code codeSystem="local" code="Vum152" displayName="Creat" /> <statusCode code="completed" /> < effectiveTime value="945042692641" /> <value unit="mg/dL" xsi:type="PQ " value="0.76" /> <referenceRange> <observationRange> <text>0.50-1.50</text> </observationRange> </ referenceRange> </observation> </component> <component> <observation moodCode="EVN" classCode="OBS"> <templateId root= "2.16.840.1.167533.10..4.2" /> <id nullFlavor="NA" /> < code codeSystem="local" code="Dap248" displayName="eGFR" /> < statusCode code="completed" /> <effectiveTime value="323030407228" /> <value unit="mL/min/1.73m2" xsi:type="PQ" value="76" /> < referenceRange> <observationRange> <text>>59</text> </observationRange> </referenceRange> </observation> </component> </organizer> </entry> <entry> <organizer moodCode= "EVN" classCode="BATTERY"> <templateId root="216.840.1.015307.10..22.4.1 " /> <id nullFlavor="NA" /> <code codeSystem="local" code="MNH0790" displayName="Protime " /> <statusCode code="completed" /> <component> <observation moodCode="EVN" classCode="OBS"> <templateId root= "216.840.1.142966.10..22.4.2" /> <id nullFlavor="NA" /> < code codeSystem="local" code="Tgb674" displayName="INR" /> <statusCode code="completed" /> <effectiveTime value="892426624813" /> < value unit="" xsi:type="PQ" value="4.5" /> <interpretationCode codeSystem="local" code="HH" /> <referenceRange> < observationRange> <text>1.0-4.0</text> </ observationRange> </referenceRange> </observation> </ component> <component> <observation moodCode="EVN" classCode="OBS"> <templateId root="216.840.1.833048.10.20.22.4.2" /> <id nullFlavor="NA" /> <code codeSystem="local" code="Dwc5361" displayName= "Protime" /> <statusCode code="completed" /> <effectiveTime value="916084473252" /> <value unit="Sec" xsi:type="PQ" value="57.0 called to brandon" /> <interpretationCode codeSystem="local" code="HH" /> <referenceRange> <observationRange> <text>9.9- 12.8</text> </observationRange> </referenceRange> </ observation> </component> </organizer> </entry> <entry> <organizer moodCode="EVN" classCode="BATTERY"> <templateId root= "216.840.1.697493.10..22.4.1" /> <id nullFlavor="NA" /> <code codeSystem="local" code="ORD4" displayName="BMP" /> <statusCode code= "completed" /> <component> <observation moodCode="EVN" classCode= "OBS"> <templateId root="16.840.1.668031.10..22.4.2" /> < id nullFlavor="NA" /> <code codeSystem="local" code="Res61" displayName ="Anion Gap" /> <statusCode code="completed" /> < effectiveTime value="199639483333" /> <value unit="" xsi:type="PQ" value="16" /> <interpretationCode codeSystem="local" code="H" /> <referenceRange> <observationRange> <text>6-14</text > </observationRange> </referenceRange> </observation > </component> <component> <observation moodCode="EVN" classCode="OBS"> <templateId root="16.840.1.065056.10.20.22.4.2" /> <id nullFlavor="NA" /> <code codeSystem="local" code="Res26" displayName="BUN" /> <statusCode code="completed" /> < effectiveTime value="779088152348" /> <value unit="mg/dL" xsi:type="PQ " value="19" /> <referenceRange> <observationRange> <text>5-25</text> </observationRange> </referenceRange > </observation> </component> <component> <observation moodCode="EVN" classCode="OBS"> <templateId root= "216.840.1.541090.10..22.4.2" /> <id nullFlavor="NA" /> < code codeSystem="local" code="Res5" displayName="Calcium" /> < statusCode code="completed" /> <effectiveTime value="667850453618" /> <value unit="mg/dL" xsi:type="PQ" value="9.2" /> < referenceRange> <observationRange> <text>8.3-10.4</text > </observationRange> </referenceRange> </observation > </component> <component> <observation moodCode="EVN" classCode="OBS"> <templateId root="16.840.1.943883...22.4.2" /> <id nullFlavor="NA" /> <code codeSystem="local" code="Res21" displayName="Chloride" /> <statusCode code="completed" /> < effectiveTime value="843610725367" /> <value unit="mmol/L" xsi:type="PQ " value="102" /> <referenceRange> <observationRange> <text>95-114</text> </observationRange> </ referenceRange> </observation> </component> <component> <observation moodCode="EVN" classCode="OBS"> <templateId root= "16.840.1.102956.11.29.21.4.2" /> <id nullFlavor="NA" /> < code codeSystem="local" code="Res49" displayName="CO2" /> <statusCode code="completed" /> <effectiveTime value="576942403057" /> < value unit="mEq/L" xsi:type="PQ" value="27" /> <referenceRange> <observationRange> <text>22-33</text> </ observationRange> </referenceRange> </observation> </ component> <component> <observation moodCode="EVN" classCode="OBS"> <templateId root="2.16.840.1.992081.11.29.21.4.2" /> <id nullFlavor="NA" /> <code codeSystem="local" code="Fni523" displayName= "Creat" /> <statusCode code="completed" /> <effectiveTime value="813529169386" /> <value unit="mg/dL" xsi:type="PQ" value="1.04" /> <referenceRange> <observationRange> <text> 0.50-1.50</text> </observationRange> </referenceRange> </observation> </component> <component> <observation moodCode="EVN" classCode="OBS"> <templateId root= "2.16.840.1.664421.11.29.21.4.2" /> <id nullFlavor="NA" /> < code codeSystem="local" code="Emx881" displayName="eGFR" /> < statusCode code="completed" /> <effectiveTime value="982742763553" /> <value unit="mL/min/1.73m2" xsi:type="PQ" value="53" /> < interpretationCode codeSystem="local" code="L" /> <referenceRange> <observationRange> <text>>59</text> </ observationRange> </referenceRange> </observation> </ component> <component> <observation moodCode="EVN" classCode="OBS"> <templateId root="216.840.1.182261.1022.4.2" /> <id nullFlavor="NA" /> <code codeSystem="local" code="Res60" displayName= "Glucose" /> <statusCode code="completed" /> <effectiveTime value="169383014771" /> <value unit="mg/dL" xsi:type="PQ" value="87" / > <referenceRange> <observationRange> <text>70- 110</text> </observationRange> </referenceRange> </ observation> </component> <component> <observation moodCode= "EVN" classCode="OBS"> <templateId root="216.840.1.067982.11.29.21.4.2 " /> <id nullFlavor="NA" /> <code codeSystem="local" code= "Res52" displayName="Osmo" /> <statusCode code="completed" /> <effectiveTime value="702835017632" /> <value unit="" xsi:type="PQ" value="293" /> <referenceRange> <observationRange> <text>280-295</text> </observationRange> </ referenceRange> </observation> </component> <component> <observation moodCode="EVN" classCode="OBS"> <templateId root= "16.840.1.584100.10.22.4.2" /> <id nullFlavor="NA" /> < code codeSystem="local" code="Res20" displayName="Potassium" /> < statusCode code="completed" /> <effectiveTime value="252409504415" /> <value unit="mmol/L" xsi:type="PQ" value="4.0" /> < referenceRange> <observationRange> <text>3.5-5.3</text> </observationRange> </referenceRange> </observation > </component> <component> <observation moodCode="EVN" classCode="OBS"> <templateId root="16.840.1.255805.10.2022.4.2" /> <id nullFlavor="NA" /> <code codeSystem="local" code="Res19" displayName="Sodium" /> <statusCode code="completed" /> < effectiveTime value="896108768499" /> <value unit="mmol/L" xsi:type="PQ " value="141" /> <referenceRange> <observationRange> <text>134-148</text> </observationRange> </ referenceRange> </observation> </component> </organizer> </entry > <entry> <organizer moodCode="EVN" classCode="BATTERY"> <templateId root="03.28.840.1.016033.10.22.4.1" /> <id nullFlavor="NA" /> <code codeSystem="local" code="ZIS4161" displayName="Protime " /> <statusCode code="completed" /> <component> <observation moodCode="EVN" classCode="OBS"> <templateId root="03.28.840.1.709140.10.2022.4.2" /> <id nullFlavor="NA" /> <code codeSystem="local" code="Avn917" displayName="INR" /> <statusCode code="completed" /> < effectiveTime value="170432225071" /> <value unit="" xsi:type="PQ" value="3.7" /> <referenceRange> <observationRange> <text>1.0-4.0</text> </observationRange> </ referenceRange> </observation> </component> <component> <observation moodCode="EVN" classCode="OBS"> <templateId root= "216.840.1.819672.10..22.4.2" /> <id nullFlavor="NA" /> < code codeSystem="local" code="Buv3848" displayName="Protime" /> < statusCode code="completed" /> <effectiveTime value="777167063895" /> <value unit="Sec" xsi:type="PQ" value="46.9" /> < interpretationCode codeSystem="local" code="H" /> <referenceRange> <observationRange> <text>9.9-12.8</text> </ observationRange> </referenceRange> </observation> </ component> </organizer> </entry> <entry> <organizer moodCode="EVN" classCode="BATTERY"> <templateId root="216.840.1.462275.10..22.4.1" /> <id nullFlavor="NA" /> <code codeSystem="local" code="ORD3" displayName="Comprehensive Metabolic Panel" /> <statusCode code="completed " /> <component> <observation moodCode="EVN" classCode="OBS"> <templateId root="2.16.840.1.181846.10..22.4.2" /> <id nullFlavor ="NA" /> <code codeSystem="local" code="Res44" displayName="Albumin" / > <statusCode code="completed" /> <effectiveTime value= "609330512941" /> <value unit="g/dL" xsi:type="PQ" value="3.8" /> <referenceRange> <observationRange> <text>3.6-5.1</ text> </observationRange> </referenceRange> </ observation> </component> <component> <observation moodCode= "EVN" classCode="OBS"> <templateId root="216.840.1.699852.10.20.22.4.2 " /> <id nullFlavor="NA" /> <code codeSystem="local" code= "Res45" displayName="ALP" /> <statusCode code="completed" /> < effectiveTime value="436159403509" /> <value unit="U/L" xsi:type="PQ" value="83" /> <referenceRange> <observationRange> <text>35-130</text> </observationRange> </referenceRange > </observation> </component> <component> <observation moodCode="EVN" classCode="OBS"> <templateId root= "16.840.1.044027.10..22.4.2" /> <id nullFlavor="NA" /> < code codeSystem="local" code="Res46" displayName="ALT" /> <statusCode code="completed" /> <effectiveTime value="326019642504" /> < value unit="U/L" xsi:type="PQ" value="19" /> <referenceRange> <observationRange> <text>6-45</text> </ observationRange> </referenceRange> </observation> </ component> <component> <observation moodCode="EVN" classCode="OBS"> <templateId root="03.28.840.1.274447.10.20.22.4.2" /> <id nullFlavor="NA" /> <code codeSystem="local" code="Res61" displayName= "Anion Gap" /> <statusCode code="completed" /> <effectiveTime value="760902379164" /> <value unit="" xsi:type="PQ" value="16" /> <interpretationCode codeSystem="local" code="H" /> < referenceRange> <observationRange> <text>6-14</text> </observationRange> </referenceRange> </observation> </component> <component> <observation moodCode="EVN" classCode= "OBS"> <templateId root="16.840.1.104597.10..22.4.2" /> < id nullFlavor="NA" /> <code codeSystem="local" code="Res48" displayName ="AST" /> <statusCode code="completed" /> <effectiveTime value ="662022770654" /> <value unit="U/L" xsi:type="PQ" value="24" /> <referenceRange> <observationRange> <text>2-40</text > </observationRange> </referenceRange> </observation > </component> <component> <observation moodCode="EVN" classCode="OBS"> <templateId root="03.28.840.1.144244.10..4.2" /> <id nullFlavor="NA" /> <code codeSystem="local" code="Res26" displayName="BUN" /> <statusCode code="completed" /> < effectiveTime value="324106165085" /> <value unit="mg/dL" xsi:type="PQ " value="16" /> <referenceRange> <observationRange> <text>5-25</text> </observationRange> </referenceRange > </observation> </component> <component> <observation moodCode="EVN" classCode="OBS"> <templateId root= "03.28.840.1.034253.10...4.2" /> <id nullFlavor="NA" /> < code codeSystem="local" code="Res5" displayName="Calcium" /> < statusCode code="completed" /> <effectiveTime value="841019099013" /> <value unit="mg/dL" xsi:type="PQ" value="9.1" /> < referenceRange> <observationRange> <text>8.3-10.4</text > </observationRange> </referenceRange> </observation > </component> <component> <observation moodCode="EVN" classCode="OBS"> <templateId root="16.840.1.271611.10..22.4.2" /> <id nullFlavor="NA" /> <code codeSystem="local" code="Res21" displayName="Chloride" /> <statusCode code="completed" /> < effectiveTime value="236333852706" /> <value unit="mmol/L" xsi:type="PQ " value="106" /> <referenceRange> <observationRange> <text>95-114</text> </observationRange> </ referenceRange> </observation> </component> <component> <observation moodCode="EVN" classCode="OBS"> <templateId root= "03.28.840.1.415776.10..4.2" /> <id nullFlavor="NA" /> < code codeSystem="local" code="Res49" displayName="CO2" /> <statusCode code="completed" /> <effectiveTime value="998085094132" /> < value unit="mEq/L" xsi:type="PQ" value="22" /> <referenceRange> <observationRange> <text>22-33</text> </ observationRange> </referenceRange> </observation> </ component> <component> <observation moodCode="EVN" classCode="OBS"> <templateId root="03.28.840.1.805752.10.20.22.4.2" /> <id nullFlavor="NA" /> <code codeSystem="local" code="Tkf333" displayName= "Creat" /> <statusCode code="completed" /> <effectiveTime value="458895782732" /> <value unit="mg/dL" xsi:type="PQ" value="0.83" /> <referenceRange> <observationRange> <text> 0.50-1.50</text> </observationRange> </referenceRange> </observation> </component> <component> <observation moodCode="EVN" classCode="OBS"> <templateId root= "16.840.1.312849.10..22.4.2" /> <id nullFlavor="NA" /> < code codeSystem="local" code="Ixn158" displayName="eGFR" /> < statusCode code="completed" /> <effectiveTime value="781534788056" /> <value unit="mL/min/1.73m2" xsi:type="PQ" value="68" /> < referenceRange> <observationRange> <text>>59</text> </observationRange> </referenceRange> </observation> </component> <component> <observation moodCode="EVN" classCode ="OBS"> <templateId root="03.28.840.1.347448.10..22.4.2" /> < id nullFlavor="NA" /> <code codeSystem="local" code="Res7" displayName= "Globulin" /> <statusCode code="completed" /> <effectiveTime value="290754899983" /> <value unit="g/dL" xsi:type="PQ" value="2.9" / > <referenceRange> <observationRange> <text>2.3 -3.5</text> </observationRange> </referenceRange> </ observation> </component> <component> <observation moodCode= "EVN" classCode="OBS"> <templateId root="03.28.840.1.841660..22.4.2 " /> <id nullFlavor="NA" /> <code codeSystem="local" code= "Res60" displayName="Glucose" /> <statusCode code="completed" /> <effectiveTime value="975184208966" /> <value unit="mg/dL" xsi:type ="PQ" value="89" /> <referenceRange> <observationRange> <text>70-110</text> </observationRange> </ referenceRange> </observation> </component> <component> <observation moodCode="EVN" classCode="OBS"> <templateId root= "2.16.840.1.580319...4.2" /> <id nullFlavor="NA" /> < code codeSystem="local" code="Res52" displayName="Osmo" /> <statusCode code="completed" /> <effectiveTime value="714854990719" /> < value unit="" xsi:type="PQ" value="290" /> <referenceRange> <observationRange> <text>280-295</text> </ observationRange> </referenceRange> </observation> </ component> <component> <observation moodCode="EVN" classCode="OBS"> <templateId root="2.16.840.1.784796.10..4.2" /> <id nullFlavor="NA" /> <code codeSystem="local" code="Res20" displayName= "Potassium" /> <statusCode code="completed" /> <effectiveTime value="786032179138" /> <value unit="mmol/L" xsi:type="PQ" value="3.6" /> <referenceRange> <observationRange> <text> 3.5-5.3</text> </observationRange> </referenceRange> </observation> </component> <component> <observation moodCode= "EVN" classCode="OBS"> <templateId root="16.840.1.674606.10.20.22.4.2 " /> <id nullFlavor="NA" /> <code codeSystem="local" code= "Res19" displayName="Sodium" /> <statusCode code="completed" /> <effectiveTime value="369739909392" /> <value unit="mmol/L" xsi:type ="PQ" value="140" /> <referenceRange> <observationRange> <text>134-148</text> </observationRange> </ referenceRange> </observation> </component> <component> <observation moodCode="EVN" classCode="OBS"> <templateId root= "16.840.1.270568.10.22.4.2" /> <id nullFlavor="NA" /> < code codeSystem="local" code="Res51" displayName="TBil" /> <statusCode code="completed" /> <effectiveTime value="590830842490" /> < value unit="mg/dL" xsi:type="PQ" value="1.0" /> <referenceRange> <observationRange> <text>0.2-1.2</text> </ observationRange> </referenceRange> </observation> </ component> <component> <observation moodCode="EVN" classCode="OBS"> <templateId root="03.28.840.1.539365.10.20.22.4.2" /> <id nullFlavor="NA" /> <code codeSystem="local" code="Res24" displayName= "TP" /> <statusCode code="completed" /> <effectiveTime value= "922429698917" /> <value unit="g/dL" xsi:type="PQ" value="6.7" /> <referenceRange> <observationRange> <text>6.0-8.3</ text> </observationRange> </referenceRange> </ observation> </component> </organizer> </entry> <entry> <organizer moodCode="EVN" classCode="BATTERY"> <templateId root= "2.16.840.1.326885.10..22.4.1" /> <id nullFlavor="NA" /> <code codeSystem="local" code="ODX7274" displayName="Urine Culture" /> < statusCode code="completed" /> <component> <observation moodCode= "EVN" classCode="OBS"> <templateId root="2.16.840.1.421881.10...4.2 " /> <id nullFlavor="NA" /> <code codeSystem="local" code= "Gnl6625" displayName="FINAL CULTURE RESULTS" /> <statusCode code= "completed" /> <effectiveTime value="940693214934" /> <value unit="" xsi:type="PQ" value="20,000-50,000 Gram Positive Mixed NsutcI5B2Q<10, 000 Gram HipnnarcJ3B6RCs Further Workup" /> <referenceRange> <observationRange> <text /> </observationRange> </referenceRange> </observation> </component> <component> <observation moodCode="EVN" classCode="OBS"> <templateId root= "2.16.840.1.269130.10..22.4.2" /> <id nullFlavor="NA" /> < code codeSystem="local" code="Tkn5382" displayName="MEDIA PLATED" /> < statusCode code="completed" /> <effectiveTime value="505168327429" /> <value unit="" xsi:type="PQ" value="Setup at 11:10 on 01/07/2016" /> <referenceRange> <observationRange> <text /> </observationRange> </referenceRange> </observation> </component> <component> <observation moodCode="EVN" classCode= "OBS"> <templateId root="2.16.840.1.155663.10..22.4.2" /> < id nullFlavor="NA" /> <code codeSystem="local" code="Xgp1751" displayName="CULTURE SOURCE" /> <statusCode code="completed" /> <effectiveTime value="998287976358" /> <value unit="" xsi:type="PQ" value="Void" /> <referenceRange> <observationRange> <text /> </observationRange> </referenceRange> </observation> </component> </organizer> </entry> <entry> < organizer moodCode="EVN" classCode="BATTERY"> <templateId root= "2.16.840.1.638344.10..22.4.1" /> <id nullFlavor="NA" /> <code codeSystem="local" code="XJO0188" displayName="Protime " /> <statusCode code="completed" /> <component> <observation moodCode="EVN" classCode="OBS"> <templateId root="2.16.840.1.647563.10..22.4.2" /> <id nullFlavor="NA" /> <code codeSystem="local" code="Fww533" displayName="INR" /> <statusCode code="completed" /> < effectiveTime value="044049455608" /> <value unit="" xsi:type="PQ" value="4.5 called to Susie" /> <interpretationCode codeSystem="local " code="HH" /> <referenceRange> <observationRange> <text>1.0-4.0</text> </observationRange> </ referenceRange> </observation> </component> <component> <observation moodCode="EVN" classCode="OBS"> <templateId root= "216.840.1.773930.10.20.22.4.2" /> <id nullFlavor="NA" /> < code codeSystem="local" code="Mce7257" displayName="Protime" /> < statusCode code="completed" /> <effectiveTime value="943338276734" /> <value unit="Sec" xsi:type="PQ" value="57.1" /> < interpretationCode codeSystem="local" code="HH" /> <referenceRange> <observationRange> <text>9.9-12.8</text> </ observationRange> </referenceRange> </observation> </ component> </organizer> </entry> <entry> <organizer moodCode="EVN" classCode="BATTERY"> <templateId root="216.840.1.442234.10..22.4.1" /> <id nullFlavor="NA" /> <code codeSystem="local" code="VXN8716" displayName="Blood Culture" /> <statusCode code="completed" /> < component> <observation moodCode="EVN" classCode="OBS"> < templateId root="216.840.1.866227.10.20.22.4.2" /> <id nullFlavor="NA " /> <code codeSystem="local" code="Gin1518" displayName="PRELIM CULTURE RESULTS" /> <statusCode code="completed" /> < effectiveTime value="329954926026" /> <value unit="" xsi:type="PQ" value="Blood Culture Negative, No Growth Day 1" /> <referenceRange> <observationRange> <text /> </observationRange > </referenceRange> </observation> </component> < component> <observation moodCode="EVN" classCode="OBS"> < templateId root="2.16.840.1.060727.10.20.22.4.2" /> <id nullFlavor="NA " /> <code codeSystem="local" code="Lkj2604" displayName="FINAL CULTURE RESULTS" /> <statusCode code="completed" /> < effectiveTime value="530686704271" /> <value unit="" xsi:type="PQ" value="Blood Culture Negative, No Growth Day 5" /> <referenceRange> <observationRange> <text /> </observationRange > </referenceRange> </observation> </component> < component> <observation moodCode="EVN" classCode="OBS"> < templateId root="2.16.840.1.059158.10..22.4.2" /> <id nullFlavor="NA " /> <code codeSystem="local" code="Rrm6536" displayName="MEDIA PLATED " /> <statusCode code="completed" /> <effectiveTime value= "513710267922" /> <value unit="" xsi:type="PQ" value="Setup at 12:21 on 01/06/2016 B-34" /> <referenceRange> <observationRange> <text /> </observationRange> </referenceRange> </observation> </component> <component> <observation moodCode="EVN" classCode="OBS"> <templateId root= "2.16.840.1.960005.10..22.4.2" /> <id nullFlavor="NA" /> < code codeSystem="local" code="Csj9817" displayName="CULTURE SOURCE" /> <statusCode code="completed" /> <effectiveTime value="213513479864" /> <value unit="" xsi:type="PQ" value="right hand" /> < referenceRange> <observationRange> <text /> < /observationRange> </referenceRange> </observation> </ component> </organizer> </entry> <entry> <organizer moodCode="EVN" classCode="BATTERY"> <templateId root="216.840.1.529978.10..22.4.1" /> <id nullFlavor="NA" /> <code codeSystem="local" code="GTE1813" displayName="Blood Culture" /> <statusCode code="completed" /> < component> <observation moodCode="EVN" classCode="OBS"> < templateId root="216.840.1.749931.10..22.4.2" /> <id nullFlavor="NA " /> <code codeSystem="local" code="Ubm7509" displayName="PRELIM CULTURE RESULTS" /> <statusCode code="completed" /> < effectiveTime value="799225105827" /> <value unit="" xsi:type="PQ" value="Blood Culture Negative, No Growth Day 1" /> <referenceRange> <observationRange> <text /> </observationRange > </referenceRange> </observation> </component> < component> <observation moodCode="EVN" classCode="OBS"> < templateId root="216.840.1.778723.10...4.2" /> <id nullFlavor="NA " /> <code codeSystem="local" code="Dyv3381" displayName="FINAL CULTURE RESULTS" /> <statusCode code="completed" /> < effectiveTime value="034561318796" /> <value unit="" xsi:type="PQ" value="Blood Culture Negative, No Growth Day 5" /> <referenceRange> <observationRange> <text /> </observationRange > </referenceRange> </observation> </component> < component> <observation moodCode="EVN" classCode="OBS"> < templateId root="216.840.1.514743.22.4.2" /> <id nullFlavor="NA " /> <code codeSystem="local" code="Eqo7469" displayName="MEDIA PLATED " /> <statusCode code="completed" /> <effectiveTime value= "606260110429" /> <value unit="" xsi:type="PQ" value="Setup at 12:21 on 01/06/2016 Blood Culture Media Position A-15" /> <referenceRange> <observationRange> <text /> </observationRange > </referenceRange> </observation> </component> < component> <observation moodCode="EVN" classCode="OBS"> < templateId root="216.840.1.847509.11.29.21.4.2" /> <id nullFlavor="NA " /> <code codeSystem="local" code="Cpi1465" displayName="CULTURE SOURCE" /> <statusCode code="completed" /> <effectiveTime value="216227060880" /> <value unit="" xsi:type="PQ" value="left ac" / > <referenceRange> <observationRange> <text /> </observationRange> </referenceRange> </observation > </component> </organizer> </entry> <entry> <organizer moodCode= "EVN" classCode="BATTERY"> <templateId root="16.840.1.782876.11.29.21.4.1 " /> <id nullFlavor="NA" /> <code codeSystem="local" code="ORD4" displayName="BMP" /> <statusCode code="completed" /> <component> <observation moodCode="EVN" classCode="OBS"> <templateId root= "216.840.1.366241.10.4.2" /> <id nullFlavor="NA" /> < code codeSystem="local" code="Res61" displayName="Anion Gap" /> < statusCode code="completed" /> <effectiveTime value="" /> <value unit="" xsi:type="PQ" value="12" /> <referenceRange> <observationRange> <text>6-14</text> </ observationRange> </referenceRange> </observation> </ component> <component> <observation moodCode="EVN" classCode="OBS"> <templateId root="16.840.1.115465.11.29.21.4.2" /> <id nullFlavor="NA" /> <code codeSystem="local" code="Res26" displayName= "BUN" /> <statusCode code="completed" /> <effectiveTime value= "" /> <value unit="mg/dL" xsi:type="PQ" value="15" /> <referenceRange> <observationRange> <text>5-25</ text> </observationRange> </referenceRange> </ observation> </component> <component> <observation moodCode= "EVN" classCode="OBS"> <templateId root="03.28.840.1.457919.11.29.21.4.2 " /> <id nullFlavor="NA" /> <code codeSystem="local" code= "Res5" displayName="Calcium" /> <statusCode code="completed" /> <effectiveTime value="" /> <value unit="mg/dL" xsi:type= "PQ" value="8.7" /> <referenceRange> <observationRange> <text>8.3-10.4</text> </observationRange> </ referenceRange> </observation> </component> <component> <observation moodCode="EVN" classCode="OBS"> <templateId root= "216.840.1.684133.22.4.2" /> <id nullFlavor="NA" /> < code codeSystem="local" code="Res21" displayName="Chloride" /> < statusCode code="completed" /> <effectiveTime value="" /> <value unit="mmol/L" xsi:type="PQ" value="104" /> < referenceRange> <observationRange> <text>95-114</text> </observationRange> </referenceRange> </observation> </component> <component> <observation moodCode="EVN" classCode ="OBS"> <templateId root="216.840.1.269142.10.20.22.4.2" /> < id nullFlavor="NA" /> <code codeSystem="local" code="Res49" displayName ="CO2" /> <statusCode code="completed" /> <effectiveTime value ="464973379976" /> <value unit="mEq/L" xsi:type="PQ" value="26" /> <referenceRange> <observationRange> <text>22-33</ text> </observationRange> </referenceRange> </ observation> </component> <component> <observation moodCode= "EVN" classCode="OBS"> <templateId root="16.840.1.474475.10.20.22.4.2 " /> <id nullFlavor="NA" /> <code codeSystem="local" code= "Phc402" displayName="Creat" /> <statusCode code="completed" /> <effectiveTime value="632673909679" /> <value unit="mg/dL" xsi:type= "PQ" value="0.76" /> <referenceRange> <observationRange> <text>0.50-1.50</text> </observationRange> </ referenceRange> </observation> </component> <component> <observation moodCode="EVN" classCode="OBS"> <templateId root= "216.840.1.323027.10..22.4.2" /> <id nullFlavor="NA" /> < code codeSystem="local" code="Mxq211" displayName="eGFR" /> < statusCode code="completed" /> <effectiveTime value="102002636977" /> <value unit="mL/min/1.73m2" xsi:type="PQ" value="76" /> < referenceRange> <observationRange> <text>>59</text> </observationRange> </referenceRange> </observation> </component> <component> <observation moodCode="EVN" classCode ="OBS"> <templateId root="216.840.1.100888.10..4.2" /> < id nullFlavor="NA" /> <code codeSystem="local" code="Res60" displayName ="Glucose" /> <statusCode code="completed" /> <effectiveTime value="" /> <value unit="mg/dL" xsi:type="PQ" value="88" / > <referenceRange> <observationRange> <text>70- 110</text> </observationRange> </referenceRange> </ observation> </component> <component> <observation moodCode= "EVN" classCode="OBS"> <templateId root="216.840.1.213290.10.2022.4.2 " /> <id nullFlavor="NA" /> <code codeSystem="local" code= "Res52" displayName="Osmo" /> <statusCode code="completed" /> <effectiveTime value="997311144387" /> <value unit="" xsi:type="PQ" value="285" /> <referenceRange> <observationRange> <text>280-295</text> </observationRange> </ referenceRange> </observation> </component> <component> <observation moodCode="EVN" classCode="OBS"> <templateId root= "16.840.1.148423.11.29.21.4.2" /> <id nullFlavor="NA" /> < code codeSystem="local" code="Res20" displayName="Potassium" /> < statusCode code="completed" /> <effectiveTime value="651931377844" /> <value unit="mmol/L" xsi:type="PQ" value="3.8" /> < referenceRange> <observationRange> <text>3.5-5.3</text> </observationRange> </referenceRange> </observation > </component> <component> <observation moodCode="EVN" classCode="OBS"> <templateId root="03.28.840.1.291255.11.29.21.4.2" /> <id nullFlavor="NA" /> <code codeSystem="local" code="Res19" displayName="Sodium" /> <statusCode code="completed" /> < effectiveTime value="208555867038" /> <value unit="mmol/L" xsi:type="PQ " value="138" /> <referenceRange> <observationRange> <text>134-148</text> </observationRange> </ referenceRange> </observation> </component> </organizer> </entry > <entry> <organizer moodCode="EVN" classCode="BATTERY"> <templateId root="03.28.840.1.625303.10...4.1" /> <id nullFlavor="NA" /> <code codeSystem="local" code="SNT1497" displayName="Protime " /> <statusCode code="completed" /> <component> <observation moodCode="EVN" classCode="OBS"> <templateId root="03.28.840.1.019814.22.4.2" /> <id nullFlavor="NA" /> <code codeSystem="local" code="Ocq547" displayName="INR" /> <statusCode code="completed" /> < effectiveTime value="607851732975" /> <value unit="" xsi:type="PQ" value="1.5" /> <referenceRange> <observationRange> <text>1.0-4.0</text> </observationRange> </ referenceRange> </observation> </component> <component> <observation moodCode="EVN" classCode="OBS"> <templateId root= "840.1.436416.11.29.21.4.2" /> <id nullFlavor="NA" /> < code codeSystem="local" code="Yvq9318" displayName="Protime" /> < statusCode code="completed" /> <effectiveTime value="132902493257" /> <value unit="Sec" xsi:type="PQ" value="17.4" /> < interpretationCode codeSystem="local" code="H" /> <referenceRange> <observationRange> <text>9.9-12.8</text> </ observationRange> </referenceRange> </observation> </ component> </organizer> </entry> <entry> <organizer moodCode="EVN" classCode="BATTERY"> <templateId root="03.28.840.1.972249.22.4.1" /> <id nullFlavor="NA" /> <code codeSystem="local" code="IXX5076" displayName="Protime " /> <statusCode code="completed" /> <component> <observation moodCode="EVN" classCode="OBS"> <templateId root= "03.28.840.1.032159.1022.4.2" /> <id nullFlavor="NA" /> < code codeSystem="local" code="Mtc560" displayName="INR" /> <statusCode code="completed" /> <effectiveTime value="112306095063" /> < value unit="" xsi:type="PQ" value="1.3" /> <referenceRange> <observationRange> <text>1.0-4.0</text> </ observationRange> </referenceRange> </observation> </ component> <component> <observation moodCode="EVN" classCode="OBS"> <templateId root="03.28.840.1.780179.11.29.21.4.2" /> <id nullFlavor="NA" /> <code codeSystem="local" code="Rvp4351" displayName= "Protime" /> <statusCode code="completed" /> <effectiveTime value="609399278267" /> <value unit="Sec" xsi:type="PQ" value="15.0" / > <interpretationCode codeSystem="local" code="H" /> < referenceRange> <observationRange> <text>9.9-12.8</text > </observationRange> </referenceRange> </observation > </component> </organizer> </entry> <entry> <organizer moodCode= "EVN" classCode="BATTERY"> <templateId root="840.1.389709.22.4.1 " /> <id nullFlavor="NA" /> <code codeSystem="local" code="VVG4032" displayName="Protime " /> <statusCode code="completed" /> <component> <observation moodCode="EVN" classCode="OBS"> <templateId root= "840.1.556222.102022.4.2" /> <id nullFlavor="NA" /> < code codeSystem="local" code="Thr194" displayName="INR" /> <statusCode code="completed" /> <effectiveTime value="631620315639" /> < value unit="" xsi:type="PQ" value="1.6" /> <referenceRange> <observationRange> <text>1.0-4.0</text> </ observationRange> </referenceRange> </observation> </ component> <component> <observation moodCode="EVN" classCode="OBS"> <templateId root="840.1.664628.1022.4.2" /> <id nullFlavor="NA" /> <code codeSystem="local" code="Jbb9192" displayName= "Protime" /> <statusCode code="completed" /> <effectiveTime value="828890621570" /> <value unit="Sec" xsi:type="PQ" value="19.0" / > <interpretationCode codeSystem="local" code="H" /> < referenceRange> <observationRange> <text>9.9-12.8</text > </observationRange> </referenceRange> </observation > </component> </organizer> </entry> <entry> <organizer moodCode= "EVN" classCode="BATTERY"> <templateId root="840.1.308209.22.4.1 " /> <id nullFlavor="NA" /> <code codeSystem="local" code="JUS2127" displayName="Protime " /> <statusCode code="completed" /> <component> <observation moodCode="EVN" classCode="OBS"> <templateId root= "03.28.840.1.803067.102022.4.2" /> <id nullFlavor="NA" /> < code codeSystem="local" code="Mbd550" displayName="INR" /> <statusCode code="completed" /> <effectiveTime value="268855296500" /> < value unit="" xsi:type="PQ" value="2.3" /> <referenceRange> <observationRange> <text>1.0-4.0</text> </ observationRange> </referenceRange> </observation> </ component> <component> <observation moodCode="EVN" classCode="OBS"> <templateId root="840.1.197529.10.4.2" /> <id nullFlavor="NA" /> <code codeSystem="local" code="Nmy0249" displayName= "Protime" /> <statusCode code="completed" /> <effectiveTime value="298891240116" /> <value unit="Sec" xsi:type="PQ" value="28.4" / > <interpretationCode codeSystem="local" code="H" /> < referenceRange> <observationRange> <text>9.9-12.8</text > </observationRange> </referenceRange> </observation > </component> </organizer> </entry> <entry> <organizer moodCode= "EVN" classCode="BATTERY"> <templateId root="840.1.043987.11.29.21.4.1 " /> <id nullFlavor="NA" /> <code codeSystem="local" code="ORD3" displayName="Comprehensive Metabolic Panel" /> <statusCode code="completed " /> <component> <observation moodCode="EVN" classCode="OBS"> <templateId root="03.28.840.1.598573.1022.4.2" /> <id nullFlavor ="NA" /> <code codeSystem="local" code="Res44" displayName="Albumin" / > <statusCode code="completed" /> <effectiveTime value= "598928971715" /> <value unit="g/dL" xsi:type="PQ" value="3.3" /> <interpretationCode codeSystem="local" code="L" /> <referenceRange > <observationRange> <text>3.6-5.1</text> </ observationRange> </referenceRange> </observation> </ component> <component> <observation moodCode="EVN" classCode="OBS"> <templateId root="216.840.1.037967.10..22.4.2" /> <id nullFlavor="NA" /> <code codeSystem="local" code="Res45" displayName= "ALP" /> <statusCode code="completed" /> <effectiveTime value= "999901832412" /> <value unit="U/L" xsi:type="PQ" value="103" /> <referenceRange> <observationRange> <text>35-130</ text> </observationRange> </referenceRange> </ observation> </component> <component> <observation moodCode= "EVN" classCode="OBS"> <templateId root="16.840.1.018050.10..22.4.2 " /> <id nullFlavor="NA" /> <code codeSystem="local" code= "Res46" displayName="ALT" /> <statusCode code="completed" /> < effectiveTime value="601213679998" /> <value unit="U/L" xsi:type="PQ" value="20" /> <referenceRange> <observationRange> <text>6-45</text> </observationRange> </referenceRange> </observation> </component> <component> <observation moodCode="EVN" classCode="OBS"> <templateId root= "16.840.1.823256.10...4.2" /> <id nullFlavor="NA" /> < code codeSystem="local" code="Res61" displayName="Anion Gap" /> < statusCode code="completed" /> <effectiveTime value="108562891359" /> <value unit="" xsi:type="PQ" value="15" /> < interpretationCode codeSystem="local" code="H" /> <referenceRange> <observationRange> <text>6-14</text> </ observationRange> </referenceRange> </observation> </ component> <component> <observation moodCode="EVN" classCode="OBS"> <templateId root="2.16.840.1.841048.10..4.2" /> <id nullFlavor="NA" /> <code codeSystem="local" code="Res48" displayName= "AST" /> <statusCode code="completed" /> <effectiveTime value= "882624298118" /> <value unit="U/L" xsi:type="PQ" value="28" /> <referenceRange> <observationRange> <text>2-40</text > </observationRange> </referenceRange> </observation > </component> <component> <observation moodCode="EVN" classCode="OBS"> <templateId root="2.16.840.1.222190.10..4.2" /> <id nullFlavor="NA" /> <code codeSystem="local" code="Res26" displayName="BUN" /> <statusCode code="completed" /> < effectiveTime value="715962764835" /> <value unit="mg/dL" xsi:type="PQ " value="14" /> <referenceRange> <observationRange> <text>5-25</text> </observationRange> </referenceRange > </observation> </component> <component> <observation moodCode="EVN" classCode="OBS"> <templateId root= "16.840.1.586040.10.20.22.4.2" /> <id nullFlavor="NA" /> < code codeSystem="local" code="Res5" displayName="Calcium" /> < statusCode code="completed" /> <effectiveTime value="179269937323" /> <value unit="mg/dL" xsi:type="PQ" value="8.5" /> < referenceRange> <observationRange> <text>8.3-10.4</text > </observationRange> </referenceRange> </observation > </component> <component> <observation moodCode="EVN" classCode="OBS"> <templateId root="16.840.1.937552.10.22.4.2" /> <id nullFlavor="NA" /> <code codeSystem="local" code="Res21" displayName="Chloride" /> <statusCode code="completed" /> < effectiveTime value="852485892110" /> <value unit="mmol/L" xsi:type="PQ " value="104" /> <referenceRange> <observationRange> <text>95-114</text> </observationRange> </ referenceRange> </observation> </component> <component> <observation moodCode="EVN" classCode="OBS"> <templateId root= "03.28.840.1.147559.10.20.22.4.2" /> <id nullFlavor="NA" /> < code codeSystem="local" code="Res49" displayName="CO2" /> <statusCode code="completed" /> <effectiveTime value="074879052663" /> < value unit="mEq/L" xsi:type="PQ" value="22" /> <referenceRange> <observationRange> <text>22-33</text> </ observationRange> </referenceRange> </observation> </ component> <component> <observation moodCode="EVN" classCode="OBS"> <templateId root="2.16.840.1.164321.10.4.2" /> <id nullFlavor="NA" /> <code codeSystem="local" code="Jgq405" displayName= "Creat" /> <statusCode code="completed" /> <effectiveTime value="555903594278" /> <value unit="mg/dL" xsi:type="PQ" value="0.68" /> <referenceRange> <observationRange> <text> 0.50-1.50</text> </observationRange> </referenceRange> </observation> </component> <component> <observation moodCode="EVN" classCode="OBS"> <templateId root= "216.840.1.087020.11.29.21.4.2" /> <id nullFlavor="NA" /> < code codeSystem="local" code="Txn649" displayName="eGFR" /> < statusCode code="completed" /> <effectiveTime value="235579163521" /> <value unit="mL/min/1.73m2" xsi:type="PQ" value="86" /> < referenceRange> <observationRange> <text>>59</text> </observationRange> </referenceRange> </observation> </component> <component> <observation moodCode="EVN" classCode ="OBS"> <templateId root="2.16.840.1.406848...4.2" /> < id nullFlavor="NA" /> <code codeSystem="local" code="Res7" displayName= "Globulin" /> <statusCode code="completed" /> <effectiveTime value="959816929976" /> <value unit="g/dL" xsi:type="PQ" value="3.1" / > <referenceRange> <observationRange> <text>2.3 -3.5</text> </observationRange> </referenceRange> </ observation> </component> <component> <observation moodCode= "EVN" classCode="OBS"> <templateId root="16.840.1.414615.10..4.2 " /> <id nullFlavor="NA" /> <code codeSystem="local" code= "Res60" displayName="Glucose" /> <statusCode code="completed" /> <effectiveTime value="513445814843" /> <value unit="mg/dL" xsi:type ="PQ" value="98" /> <referenceRange> <observationRange> <text>70-110</text> </observationRange> </ referenceRange> </observation> </component> <component> <observation moodCode="EVN" classCode="OBS"> <templateId root= "03.28.840.1.417080.11.29.21.4.2" /> <id nullFlavor="NA" /> < code codeSystem="local" code="Res52" displayName="Osmo" /> <statusCode code="completed" /> <effectiveTime value="028862355935" /> < value unit="" xsi:type="PQ" value="284" /> <referenceRange> <observationRange> <text>280-295</text> </ observationRange> </referenceRange> </observation> </ component> <component> <observation moodCode="EVN" classCode="OBS"> <templateId root="03.28.840.1.179672.10.20.22.4.2" /> <id nullFlavor="NA" /> <code codeSystem="local" code="Res20" displayName= "Potassium" /> <statusCode code="completed" /> <effectiveTime value="862376625244" /> <value unit="mmol/L" xsi:type="PQ" value="4.3" /> <referenceRange> <observationRange> <text> 3.5-5.3</text> </observationRange> </referenceRange> </observation> </component> <component> <observation moodCode= "EVN" classCode="OBS"> <templateId root="03.28.840.1.660413.10...4.2 " /> <id nullFlavor="NA" /> <code codeSystem="local" code= "Res19" displayName="Sodium" /> <statusCode code="completed" /> <effectiveTime value="930055549786" /> <value unit="mmol/L" xsi:type ="PQ" value="137" /> <referenceRange> <observationRange> <text>134-148</text> </observationRange> </ referenceRange> </observation> </component> <component> <observation moodCode="EVN" classCode="OBS"> <templateId root= "03.28.840.1.421585.10...4.2" /> <id nullFlavor="NA" /> < code codeSystem="local" code="Res51" displayName="TBil" /> <statusCode code="completed" /> <effectiveTime value="611073848437" /> < value unit="mg/dL" xsi:type="PQ" value="0.9" /> <referenceRange> <observationRange> <text>0.2-1.2</text> </ observationRange> </referenceRange> </observation> </ component> <component> <observation moodCode="EVN" classCode="OBS"> <templateId root="16.840.1.333601.10.4.2" /> <id nullFlavor="NA" /> <code codeSystem="local" code="Res24" displayName= "TP" /> <statusCode code="completed" /> <effectiveTime value= "440924216889" /> <value unit="g/dL" xsi:type="PQ" value="6.4" /> <referenceRange> <observationRange> <text>6.0-8.3</ text> </observationRange> </referenceRange> </ observation> </component> </organizer> </entry> <entry> <organizer moodCode="EVN" classCode="BATTERY"> <templateId root= "216.840.1.511152.11.29.21.4.1" /> <id nullFlavor="NA" /> <code codeSystem="local" code="ORD68" displayName="Urinalysis" /> <statusCode code="completed" /> <component> <observation moodCode="EVN" classCode="OBS"> <templateId root="216.840.1.484291.10.4.2" /> <id nullFlavor="NA" /> <code codeSystem="local" code="Mzy7570 " displayName="Icotest" /> <statusCode code="completed" /> < effectiveTime value="892008993211" /> <value unit="" xsi:type="PQ" value="N/A" /> <interpretationCode codeSystem="local" code="A" /> <referenceRange> <observationRange> <text>Negative< /text> </observationRange> </referenceRange> </ observation> </component> <component> <observation moodCode= "EVN" classCode="OBS"> <templateId root="216.840.1.594643.11.29.21.4.2 " /> <id nullFlavor="NA" /> <code codeSystem="local" code= "Eor591" displayName="Urine Crystals" /> <statusCode code="completed" / > <effectiveTime value="162424174284" /> <value unit="" xsi: type="PQ" value="Amorphous urates" /> <referenceRange> < observationRange> <text /> </observationRange> </referenceRange> </observation> </component> <component> <observation moodCode="EVN" classCode="OBS"> <templateId root= "216.840.1.614003.10..4.2" /> <id nullFlavor="NA" /> < code codeSystem="local" code="Eni242" displayName="Urine Volume" /> < statusCode code="completed" /> <effectiveTime value="487772820348" /> <value unit="" xsi:type="PQ" value="Urine Volume Sufficient (10mL)" /> <referenceRange> <observationRange> <text /> </observationRange> </referenceRange> </observation> </component> <component> <observation moodCode="EVN" classCode ="OBS"> <templateId root="16.840.1.479208.10..4.2" /> < id nullFlavor="NA" /> <code codeSystem="local" code="Hbq059" displayName="Urine-Appearance" /> <statusCode code="completed" /> <effectiveTime value="646477021922" /> <value unit="" xsi:type="PQ " value="Clear" /> <referenceRange> <observationRange> <text>Clear</text> </observationRange> </ referenceRange> </observation> </component> <component> <observation moodCode="EVN" classCode="OBS"> <templateId root= "216.840.1.349282..22.4.2" /> <id nullFlavor="NA" /> < code codeSystem="local" code="Hmx935" displayName="Urine-Bacteria" /> < statusCode code="completed" /> <effectiveTime value="349808948945" /> <value unit="" xsi:type="PQ" value="1+" /> < interpretationCode codeSystem="local" code="A" /> <referenceRange> <observationRange> <text> </text> </ observationRange> </referenceRange> </observation> </ component> <component> <observation moodCode="EVN" classCode="OBS"> <templateId root="2.16.840.1.874020.10..22.4.2" /> <id nullFlavor="NA" /> <code codeSystem="local" code="Nsa096" displayName= "Urine-Bilirubin" /> <statusCode code="completed" /> < effectiveTime value="909341636228" /> <value unit="" xsi:type="PQ" value="Negative" /> <referenceRange> <observationRange> <text>Negative</text> </observationRange> </ referenceRange> </observation> </component> <component> <observation moodCode="EVN" classCode="OBS"> <templateId root= "2.16.840.1.887577.10..22.4.2" /> <id nullFlavor="NA" /> < code codeSystem="local" code="Dff146" displayName="Urine-Blood" /> < statusCode code="completed" /> <effectiveTime value="156107176548" /> <value unit="" xsi:type="PQ" value="Trace-lysed" /> < interpretationCode codeSystem="local" code="A" /> <referenceRange> <observationRange> <text>Negative</text> </ observationRange> </referenceRange> </observation> </ component> <component> <observation moodCode="EVN" classCode="OBS"> <templateId root="2.16.840.1.242524.10..22.4.2" /> <id nullFlavor="NA" /> <code codeSystem="local" code="Krb535" displayName= "Urine-Color" /> <statusCode code="completed" /> < effectiveTime value="189415188446" /> <value unit="" xsi:type="PQ" value="Yellow" /> <referenceRange> <observationRange> <text>Colorless-Lt. Yellow</text> </observationRange> </referenceRange> </observation> </component> <component> <observation moodCode="EVN" classCode="OBS"> <templateId root= "216.840.1.088127.10..22.4.2" /> <id nullFlavor="NA" /> < code codeSystem="local" code="Nzk264" displayName="Urine-Epithelial Cells" /> <statusCode code="completed" /> <effectiveTime value= "653398983208" /> <value unit="" xsi:type="PQ" value="5-10/HPF" /> <interpretationCode codeSystem="local" code="A" /> < referenceRange> <observationRange> <text> </text> </observationRange> </referenceRange> </observation> </component> <component> <observation moodCode="EVN" classCode="OBS "> <templateId root="216.840.1.854301.10..22.4.2" /> <id nullFlavor="NA" /> <code codeSystem="local" code="Tuw036" displayName= "Urine-Glucose" /> <statusCode code="completed" /> < effectiveTime value="846135152993" /> <value unit="" xsi:type="PQ" value="Negative" /> <referenceRange> <observationRange> <text>Negative</text> </observationRange> </ referenceRange> </observation> </component> <component> <observation moodCode="EVN" classCode="OBS"> <templateId root= "16.840.1.915268.10..4.2" /> <id nullFlavor="NA" /> < code codeSystem="local" code="Mun694" displayName="Urine-Ketones" /> < statusCode code="completed" /> <effectiveTime value="074854223336" /> <value unit="" xsi:type="PQ" value="Trace" /> < interpretationCode codeSystem="local" code="A" /> <referenceRange> <observationRange> <text>Negative</text> </ observationRange> </referenceRange> </observation> </ component> <component> <observation moodCode="EVN" classCode="OBS"> <templateId root="03.28.840.1.854178.104.2" /> <id nullFlavor="NA" /> <code codeSystem="local" code="Aqz567" displayName= "Urine-Leukocytes" /> <statusCode code="completed" /> < effectiveTime value="905649038817" /> <value unit="" xsi:type="PQ" value="Negative" /> <referenceRange> <observationRange> <text>Negative</text> </observationRange> </ referenceRange> </observation> </component> <component> <observation moodCode="EVN" classCode="OBS"> <templateId root= "03.28.840.1.679798.1022.4.2" /> <id nullFlavor="NA" /> < code codeSystem="local" code="Ryo062" displayName="Urine-Nitrite" /> < statusCode code="completed" /> <effectiveTime value="219265887025" /> <value unit="" xsi:type="PQ" value="Negative" /> < referenceRange> <observationRange> <text>Negative</text > </observationRange> </referenceRange> </observation > </component> <component> <observation moodCode="EVN" classCode="OBS"> <templateId root="216.840.1.579608.11.29.21.4.2" /> <id nullFlavor="NA" /> <code codeSystem="local" code="Plb429" displayName="Urine-Other" /> <statusCode code="completed" /> < effectiveTime value="780806180889" /> <value unit="" xsi:type="PQ" value="Culture to follow" /> <interpretationCode codeSystem="local" code="A" /> <referenceRange> <observationRange> <text> </text> </observationRange> </referenceRange> </observation> </component> <component> <observation moodCode="EVN" classCode="OBS"> <templateId root= "216.840.1.116552.11.29.214.2" /> <id nullFlavor="NA" /> < code codeSystem="local" code="Mpc877" displayName="Urine-pH" /> < statusCode code="completed" /> <effectiveTime value="355143375565" /> <value unit="" xsi:type="PQ" value="8.5" /> <referenceRange> <observationRange> <text>5-8.5</text> </ observationRange> </referenceRange> </observation> </ component> <component> <observation moodCode="EVN" classCode="OBS"> <templateId root="216.840.1.483910.11.29.21.4.2" /> <id nullFlavor="NA" /> <code codeSystem="local" code="Frl761" displayName= "Urine-Protein" /> <statusCode code="completed" /> < effectiveTime value="458576614365" /> <value unit="" xsi:type="PQ" value="2+" /> <interpretationCode codeSystem="local" code="A" /> <referenceRange> <observationRange> <text>Negative</ text> </observationRange> </referenceRange> </ observation> </component> <component> <observation moodCode= "EVN" classCode="OBS"> <templateId root="2.16.840.1.825350.10..22.4.2 " /> <id nullFlavor="NA" /> <code codeSystem="local" code= "Vng364" displayName="Urine-RBC" /> <statusCode code="completed" /> <effectiveTime value="689788797925" /> <value unit="" xsi:type= "PQ" value="5-10/HPF" /> <interpretationCode codeSystem="local" code="A " /> <referenceRange> <observationRange> <text > </text> </observationRange> </referenceRange> </ observation> </component> <component> <observation moodCode= "EVN" classCode="OBS"> <templateId root="2.16.840.1.334685.10..22.4.2 " /> <id nullFlavor="NA" /> <code codeSystem="local" code= "Ygz448" displayName="Urine-Specific [place]" /> <statusCode code= "completed" /> <effectiveTime value="773553961158" /> <value unit="" xsi:type="PQ" value="1.020" /> <referenceRange> < observationRange> <text>1.000-1.030</text> </ observationRange> </referenceRange> </observation> </ component> <component> <observation moodCode="EVN" classCode="OBS"> <templateId root="2.16.840.1.980905.10..4.2" /> <id nullFlavor="NA" /> <code codeSystem="local" code="Hdm269" displayName= "Urine-WBC" /> <statusCode code="completed" /> <effectiveTime value="288151610936" /> <value unit="" xsi:type="PQ" value="2-5/HPF" / > <interpretationCode codeSystem="local" code="A" /> < referenceRange> <observationRange> <text> </text> </observationRange> </referenceRange> </observation> </component> <component> <observation moodCode="EVN" classCode="OBS "> <templateId root="216.840.1.770822.11.29.21.4.2" /> <id nullFlavor="NA" /> <code codeSystem="local" code="Upm629" displayName= "Urobilinogen" /> <statusCode code="completed" /> < effectiveTime value="874710379181" /> <value unit="" xsi:type="PQ" value="0.2 E.U./dL" /> <interpretationCode codeSystem="local" code="A" /> <referenceRange> <observationRange> <text> 0.2-1.0</text> </observationRange> </referenceRange> </observation> </component> </organizer> </entry> <entry> < organizer moodCode="EVN" classCode="BATTERY"> <templateId root= "216.840.1.899822.10..22.4.1" /> <id nullFlavor="NA" /> <code codeSystem="local" code="GTR8103" displayName="Blood Culture" /> < statusCode code="completed" /> <component> <observation moodCode= "EVN" classCode="OBS"> <templateId root="2.16.840.1.713690.10..22.4.2 " /> <id nullFlavor="NA" /> <code codeSystem="local" code= "Xhb1047" displayName="PRELIM CULTURE RESULTS" /> <statusCode code= "completed" /> <effectiveTime value="098853376692" /> <value unit="" xsi:type="PQ" value="Blood Culture Negative, No Growth Day 1" /> <referenceRange> <observationRange> <text /> </observationRange> </referenceRange> </observation> </ component> <component> <observation moodCode="EVN" classCode="OBS"> <templateId root="2.16.840.1.528501.10..4.2" /> <id nullFlavor="NA" /> <code codeSystem="local" code="Oqk7357" displayName= "FINAL CULTURE RESULTS" /> <statusCode code="completed" /> < effectiveTime value="667654041319" /> <value unit="" xsi:type="PQ" value="Blood Culture Negative, No Growth Day 5" /> <referenceRange> <observationRange> <text /> </observationRange > </referenceRange> </observation> </component> < component> <observation moodCode="EVN" classCode="OBS"> < templateId root="2.16.840.1.893285.10..22.4.2" /> <id nullFlavor="NA " /> <code codeSystem="local" code="Qrg5625" displayName="MEDIA PLATED " /> <statusCode code="completed" /> <effectiveTime value= "047359373807" /> <value unit="" xsi:type="PQ" value="Setup at 12:05 on 01/16/2016 Blood Culture Media Position C-43" /> <referenceRange> <observationRange> <text /> </observationRange > </referenceRange> </observation> </component> < component> <observation moodCode="EVN" classCode="OBS"> < templateId root="2.16.840.1.368472.10..22.4.2" /> <id nullFlavor="NA " /> <code codeSystem="local" code="Pyi2325" displayName="CULTURE SOURCE" /> <statusCode code="completed" /> <effectiveTime value="826017465221" /> <value unit="" xsi:type="PQ" value="iv start" / > <referenceRange> <observationRange> <text /> </observationRange> </referenceRange> </observation > </component> </organizer> </entry> <entry> <organizer moodCode= "EVN" classCode="BATTERY"> <templateId root="2.16.840.1.826015.10..22.4.1 " /> <id nullFlavor="NA" /> <code codeSystem="local" code="GBK9188" displayName="Blood Culture" /> <statusCode code="completed" /> < component> <observation moodCode="EVN" classCode="OBS"> < templateId root="2.16.840.1.741044.10..22.4.2" /> <id nullFlavor="NA " /> <code codeSystem="local" code="Fra8317" displayName="PRELIM CULTURE RESULTS" /> <statusCode code="completed" /> < effectiveTime value="669212823109" /> <value unit="" xsi:type="PQ" value="Blood Culture Negative, No Growth Day 1" /> <referenceRange> <observationRange> <text /> </observationRange > </referenceRange> </observation> </component> < component> <observation moodCode="EVN" classCode="OBS"> < templateId root="2.16.840.1.527673.10..22.4.2" /> <id nullFlavor="NA " /> <code codeSystem="local" code="Cah8266" displayName="FINAL CULTURE RESULTS" /> <statusCode code="completed" /> < effectiveTime value="919588658278" /> <value unit="" xsi:type="PQ" value="Blood Culture Negative, No Growth Day 5" /> <referenceRange> <observationRange> <text /> </observationRange > </referenceRange> </observation> </component> < component> <observation moodCode="EVN" classCode="OBS"> < templateId root="2.16.840.1.352783.10..22.4.2" /> <id nullFlavor="NA " /> <code codeSystem="local" code="Vog6721" displayName="MEDIA PLATED " /> <statusCode code="completed" /> <effectiveTime value= "123010699576" /> <value unit="" xsi:type="PQ" value="Setup at 11:00 on 01/16/2016 Blood Culture Media Position c42" /> <referenceRange> <observationRange> <text /> </observationRange> </referenceRange> </observation> </component> < component> <observation moodCode="EVN" classCode="OBS"> < templateId root="2.16.840.1.477838.10..22.4.2" /> <id nullFlavor="NA " /> <code codeSystem="local" code="Put1806" displayName="CULTURE SOURCE" /> <statusCode code="completed" /> <effectiveTime value="482836925720" /> <value unit="" xsi:type="PQ" value= "mjxbybnkfzqzL1Z8HZfox arm" /> <referenceRange> < observationRange> <text /> </observationRange> </referenceRange> </observation> </component> </organizer> </ entry> <entry> <organizer moodCode="EVN" classCode="BATTERY"> < templateId root="2.16.840.1.132543.10..22.4.1" /> <id nullFlavor="NA" /> <code codeSystem="local" code="LBG0667" displayName="Urine Culture" /> <statusCode code="completed" /> <component> <observation moodCode ="EVN" classCode="OBS"> <templateId root= "2.16.840.1.028339.10...4.2" /> <id nullFlavor="NA" /> < code codeSystem="local" code="Sdr6219" displayName="PRELIM CULTURE RESULTS" /> <statusCode code="completed" /> <effectiveTime value= "321949845855" /> <value unit="" xsi:type="PQ" value="No Growth 24 hours" /> <referenceRange> <observationRange> < text /> </observationRange> </referenceRange> </ observation> </component> <component> <observation moodCode= "EVN" classCode="OBS"> <templateId root="216.840.1.154010.10...4.2 " /> <id nullFlavor="NA" /> <code codeSystem="local" code= "Yhy4750" displayName="FINAL CULTURE RESULTS" /> <statusCode code= "completed" /> <effectiveTime value="170265832819" /> <value unit="" xsi:type="PQ" value="No Growth 48 hours" /> <referenceRange> <observationRange> <text /> </observationRange > </referenceRange> </observation> </component> < component> <observation moodCode="EVN" classCode="OBS"> < templateId root="16.840.1.552965.10...4.2" /> <id nullFlavor="NA " /> <code codeSystem="local" code="Vmz2876" displayName="MEDIA PLATED " /> <statusCode code="completed" /> <effectiveTime value= "405946001362" /> <value unit="" xsi:type="PQ" value="Setup at 12:03 on 01/16/2016" /> <referenceRange> <observationRange> <text /> </observationRange> </referenceRange> </observation> </component> <component> <observation moodCode ="EVN" classCode="OBS"> <templateId root= "03.28.840.1.910124.11.29.21.4.2" /> <id nullFlavor="NA" /> < code codeSystem="local" code="Ahp4422" displayName="CULTURE SOURCE" /> <statusCode code="completed" /> <effectiveTime value="285311933178" /> <value unit="" xsi:type="PQ" value="cath" /> <referenceRange > <observationRange> <text /> </ observationRange> </referenceRange> </observation> </ component> </organizer> </entry> <entry> <organizer moodCode="EVN" classCode="BATTERY"> <templateId root="03.28.840.1.603197.10..4.1" /> <id nullFlavor="NA" /> <code codeSystem="local" code="LRB6480" displayName="Other Culture" /> <statusCode code="completed" /> < component> <observation moodCode="EVN" classCode="OBS"> < templateId root="216.840.1.516015.10..4.2" /> <id nullFlavor="NA " /> <code codeSystem="local" code="Pvu9281" displayName="PRELIM CULTURE RESULTS" /> <statusCode code="completed" /> < effectiveTime value="699576595877" /> <value unit="" xsi:type="PQ" value="Scant Gram Positive Further Testing [id number] to Joey Yuen for Further workup" /> <referenceRange> <observationRange> <text /> </observationRange> </referenceRange> </observation> </component> <component> <observation moodCode="EVN" classCode="OBS"> <templateId root= "2.16.840.1.511966.10...4.2" /> <id nullFlavor="NA" /> < code codeSystem="local" code="Fhy3277" displayName="FINAL CULTURE RESULTS" /> <statusCode code="completed" /> <effectiveTime value= "925384304287" /> <value unit="" xsi:type="PQ" value="Scant Gram Positive (diptheroids)[id number] skin quurhdpufhfE2R6EJf further workup" /> <referenceRange> <observationRange> <text /> </observationRange> </referenceRange> </observation> </component> <component> <observation moodCode="EVN" classCode= "OBS"> <templateId root="2.16.840.1.931085.10..22.4.2" /> < id nullFlavor="NA" /> <code codeSystem="local" code="Gjo6159" displayName="MEDIA PLATED" /> <statusCode code="completed" /> <effectiveTime value="961051676511" /> <value unit="" xsi:type="PQ" value="Setup at 15:02 on 01/16/2016" /> <referenceRange> < observationRange> <text /> </observationRange> </referenceRange> </observation> </component> </organizer> </ entry> <entry> <organizer moodCode="EVN" classCode="BATTERY"> < templateId root="2.16.840.1.634918.10..22.4.1" /> <id nullFlavor="NA" /> <code codeSystem="local" code="SXC6318" displayName="Protime " /> < statusCode code="completed" /> <component> <observation moodCode= "EVN" classCode="OBS"> <templateId root="2.16.840.1.679941.10...4.2 " /> <id nullFlavor="NA" /> <code codeSystem="local" code= "Jrd192" displayName="INR" /> <statusCode code="completed" /> <effectiveTime value="" /> <value unit="" xsi:type="PQ" value="3.0" /> <referenceRange> <observationRange> <text>1.0-4.0</text> </observationRange> </ referenceRange> </observation> </component> <component> <observation moodCode="EVN" classCode="OBS"> <templateId root= "2.16.840.1.309995.10...4.2" /> <id nullFlavor="NA" /> < code codeSystem="local" code="Ggm7813" displayName="Protime" /> < statusCode code="completed" /> <effectiveTime value="487202665340" /> <value unit="Sec" xsi:type="PQ" value="37.3" /> < interpretationCode codeSystem="local" code="H" /> <referenceRange> <observationRange> <text>9.9-12.8</text> </ observationRange> </referenceRange> </observation> </ component> </organizer> </entry> <entry> <organizer moodCode="EVN" classCode="BATTERY"> <templateId root="2.16.840.1.777331.10..22.4.1" /> <id nullFlavor="NA" /> <code codeSystem="local" code="CZF1449" displayName="Protime " /> <statusCode code="completed" /> <component> <observation moodCode="EVN" classCode="OBS"> <templateId root= "2.16.840.1.978698.10...4.2" /> <id nullFlavor="NA" /> < code codeSystem="local" code="Sus052" displayName="INR" /> <statusCode code="completed" /> <effectiveTime value="075648974649" /> < value unit="" xsi:type="PQ" value="2.5" /> <referenceRange> <observationRange> <text>1.0-4.0</text> </ observationRange> </referenceRange> </observation> </ component> <component> <observation moodCode="EVN" classCode="OBS"> <templateId root="2.16.840.1.552366.10..22.4.2" /> <id nullFlavor="NA" /> <code codeSystem="local" code="Zou4896" displayName= "Protime" /> <statusCode code="completed" /> <effectiveTime value="295520896235" /> <value unit="Sec" xsi:type="PQ" value="30.6" / > <interpretationCode codeSystem="local" code="H" /> < referenceRange> <observationRange> <text>9.9-12.8</text > </observationRange> </referenceRange> </observation > </component> </organizer> </entry> <entry> <organizer moodCode= "EVN" classCode="BATTERY"> <templateId root="2.16.840.1.561193.10..22.4.1 " /> <id nullFlavor="NA" /> <code codeSystem="local" code="VVV0002" displayName="Protime " /> <statusCode code="completed" /> <component> <observation moodCode="EVN" classCode="OBS"> <templateId root= "216.840.1.870238.11.29.21.4.2" /> <id nullFlavor="NA" /> < code codeSystem="local" code="Tjp700" displayName="INR" /> <statusCode code="completed" /> <effectiveTime value="339547435322" /> < value unit="" xsi:type="PQ" value="1.8" /> <referenceRange> <observationRange> <text>1.0-4.0</text> </ observationRange> </referenceRange> </observation> </ component> <component> <observation moodCode="EVN" classCode="OBS"> <templateId root="2.16.840.1.309183.11.29.21.4.2" /> <id nullFlavor="NA" /> <code codeSystem="local" code="Mhy4359" displayName= "Protime" /> <statusCode code="completed" /> <effectiveTime value="280815634420" /> <value unit="Sec" xsi:type="PQ" value="21.9" / > <interpretationCode codeSystem="local" code="H" /> < referenceRange> <observationRange> <text>9.9-12.8</text > </observationRange> </referenceRange> </observation > </component> </organizer> </entry> <entry> <organizer moodCode= "EVN" classCode="BATTERY"> <templateId root="03.28.840.1.471230.10..22.4.1 " /> <id nullFlavor="NA" /> <code codeSystem="local" code="ORD4" displayName="BMP" /> <statusCode code="completed" /> <component> <observation moodCode="EVN" classCode="OBS"> <templateId root= "03.28.840.1.376402.11.29.21.4.2" /> <id nullFlavor="NA" /> < code codeSystem="local" code="Res61" displayName="Anion Gap" /> < statusCode code="completed" /> <effectiveTime value="397293402076" /> <value unit="" xsi:type="PQ" value="15" /> < interpretationCode codeSystem="local" code="H" /> <referenceRange> <observationRange> <text>6-14</text> </ observationRange> </referenceRange> </observation> </ component> <component> <observation moodCode="EVN" classCode="OBS"> <templateId root="840.1.817954.11.29.21.4.2" /> <id nullFlavor="NA" /> <code codeSystem="local" code="Res26" displayName= "BUN" /> <statusCode code="completed" /> <effectiveTime value= "987394085305" /> <value unit="mg/dL" xsi:type="PQ" value="22" /> <referenceRange> <observationRange> <text>5-25</ text> </observationRange> </referenceRange> </ observation> </component> <component> <observation moodCode= "EVN" classCode="OBS"> <templateId root="03.28.840.1.694380....4.2 " /> <id nullFlavor="NA" /> <code codeSystem="local" code= "Res5" displayName="Calcium" /> <statusCode code="completed" /> <effectiveTime value="560730742169" /> <value unit="mg/dL" xsi:type= "PQ" value="7.9" /> <interpretationCode codeSystem="local" code="L" /> <referenceRange> <observationRange> <text>8.3- 10.4</text> </observationRange> </referenceRange> </ observation> </component> <component> <observation moodCode= "EVN" classCode="OBS"> <templateId root="2.16.840.1.453636.10..22.4.2 " /> <id nullFlavor="NA" /> <code codeSystem="local" code= "Res21" displayName="Chloride" /> <statusCode code="completed" /> <effectiveTime value="987186478386" /> <value unit="mmol/L" xsi: type="PQ" value="104" /> <referenceRange> <observationRange > <text>95-114</text> </observationRange> </ referenceRange> </observation> </component> <component> <observation moodCode="EVN" classCode="OBS"> <templateId root= "216.840.1.811841.10..22.4.2" /> <id nullFlavor="NA" /> < code codeSystem="local" code="Res49" displayName="CO2" /> <statusCode code="completed" /> <effectiveTime value="410286979943" /> < value unit="mEq/L" xsi:type="PQ" value="25" /> <referenceRange> <observationRange> <text>22-33</text> </ observationRange> </referenceRange> </observation> </ component> <component> <observation moodCode="EVN" classCode="OBS"> <templateId root="216.840.1.321995.10.20.22.4.2" /> <id nullFlavor="NA" /> <code codeSystem="local" code="Qrn648" displayName= "Creat" /> <statusCode code="completed" /> <effectiveTime value="943751718237" /> <value unit="mg/dL" xsi:type="PQ" value="0.66" /> <referenceRange> <observationRange> <text> 0.50-1.50</text> </observationRange> </referenceRange> </observation> </component> <component> <observation moodCode="EVN" classCode="OBS"> <templateId root= "216.840.1.372404.10...4.2" /> <id nullFlavor="NA" /> < code codeSystem="local" code="Qjs543" displayName="eGFR" /> < statusCode code="completed" /> <effectiveTime value="771344489866" /> <value unit="mL/min/1.73m2" xsi:type="PQ" value="89" /> < referenceRange> <observationRange> <text>>59</text> </observationRange> </referenceRange> </observation> </component> <component> <observation moodCode="EVN" classCode ="OBS"> <templateId root="16.840.1.361111.10..22.4.2" /> < id nullFlavor="NA" /> <code codeSystem="local" code="Res60" displayName ="Glucose" /> <statusCode code="completed" /> <effectiveTime value="955970652069" /> <value unit="mg/dL" xsi:type="PQ" value="110" / > <referenceRange> <observationRange> <text>70- 110</text> </observationRange> </referenceRange> </ observation> </component> <component> <observation moodCode= "EVN" classCode="OBS"> <templateId root="216.840.1.520964.10..4.2 " /> <id nullFlavor="NA" /> <code codeSystem="local" code= "Res52" displayName="Osmo" /> <statusCode code="completed" /> <effectiveTime value="" /> <value unit="" xsi:type="PQ" value="293" /> <referenceRange> <observationRange> <text>280-295</text> </observationRange> </ referenceRange> </observation> </component> <component> <observation moodCode="EVN" classCode="OBS"> <templateId root= "2.840.1.632825.11.29.21.4.2" /> <id nullFlavor="NA" /> < code codeSystem="local" code="Res20" displayName="Potassium" /> < statusCode code="completed" /> <effectiveTime value="" /> <value unit="mmol/L" xsi:type="PQ" value="4.0" /> < referenceRange> <observationRange> <text>3.5-5.3</text> </observationRange> </referenceRange> </observation > </component> <component> <observation moodCode="EVN" classCode="OBS"> <templateId root="16.840.1.857549.10.22.4.2" /> <id nullFlavor="NA" /> <code codeSystem="local" code="Res19" displayName="Sodium" /> <statusCode code="completed" /> < effectiveTime value="" /> <value unit="mmol/L" xsi:type="PQ " value="140" /> <referenceRange> <observationRange> <text>134-148</text> </observationRange> </ referenceRange> </observation> </component> </organizer> </entry > <entry> <organizer moodCode="EVN" classCode="BATTERY"> <templateId root="16.840.1.916600.10..4.1" /> <id nullFlavor="NA" /> <code codeSystem="local" code="AWN8539" displayName="Protime " /> <statusCode code="completed" /> <component> <observation moodCode="EVN" classCode="OBS"> <templateId root="16.840.1.913713.11.29.21.4.2" /> <id nullFlavor="NA" /> <code codeSystem="local" code="Gyt138" displayName="INR" /> <statusCode code="completed" /> < effectiveTime value="014258187071" /> <value unit="" xsi:type="PQ" value="1.7" /> <referenceRange> <observationRange> <text>1.0-4.0</text> </observationRange> </ referenceRange> </observation> </component> <component> <observation moodCode="EVN" classCode="OBS"> <templateId root= "03.28.840.1.310973.11.29.21.4.2" /> <id nullFlavor="NA" /> < code codeSystem="local" code="Zro5270" displayName="Protime" /> < statusCode code="completed" /> <effectiveTime value="657325528719" /> <value unit="Sec" xsi:type="PQ" value="19.9" /> < interpretationCode codeSystem="local" code="H" /> <referenceRange> <observationRange> <text>9.9-12.8</text> </ observationRange> </referenceRange> </observation> </ component> </organizer> </entry> <entry> <organizer moodCode="EVN" classCode="BATTERY"> <templateId root="2.16.840.1.461686.10.4.1" /> <id nullFlavor="NA" /> <code codeSystem="local" code="RGV6902" displayName="Protime " /> <statusCode code="completed" /> <component> <observation moodCode="EVN" classCode="OBS"> <templateId root= "2.16.840.1.538743.11.29.21.4.2" /> <id nullFlavor="NA" /> < code codeSystem="local" code="Gkj588" displayName="INR" /> <statusCode code="completed" /> <effectiveTime value="" /> < value unit="" xsi:type="PQ" value="1.7" /> <referenceRange> <observationRange> <text>1.0-4.0</text> </ observationRange> </referenceRange> </observation> </ component> <component> <observation moodCode="EVN" classCode="OBS"> <templateId root="2.16.840.1.777574.11.29.21.4.2" /> <id nullFlavor="NA" /> <code codeSystem="local" code="Vvf1935" displayName= "Protime" /> <statusCode code="completed" /> <effectiveTime value="351879012131" /> <value unit="Sec" xsi:type="PQ" value="20.4" / > <interpretationCode codeSystem="local" code="H" /> < referenceRange> <observationRange> <text>9.9-12.8</text > </observationRange> </referenceRange> </observation > </component> </organizer> </entry> <entry> <organizer moodCode= "EVN" classCode="BATTERY"> <templateId root="2.16.840.1.043161.10..22.4.1 " /> <id nullFlavor="NA" /> <code codeSystem="local" code="UUG4025" displayName="Protime " /> <statusCode code="completed" /> <component> <observation moodCode="EVN" classCode="OBS"> <templateId root= "2.16.840.1.556810.10...4.2" /> <id nullFlavor="NA" /> < code codeSystem="local" code="Eff422" displayName="INR" /> <statusCode code="completed" /> <effectiveTime value="074605868663" /> < value unit="" xsi:type="PQ" value="2.6" /> <referenceRange> <observationRange> <text>1.0-4.0</text> </ observationRange> </referenceRange> </observation> </ component> <component> <observation moodCode="EVN" classCode="OBS"> <templateId root="2.16.840.1.825496.10...4.2" /> <id nullFlavor="NA" /> <code codeSystem="local" code="Tqp5142" displayName= "Protime" /> <statusCode code="completed" /> <effectiveTime value="033076273047" /> <value unit="Sec" xsi:type="PQ" value="31.8" / > <interpretationCode codeSystem="local" code="H" /> < referenceRange> <observationRange> <text>9.9-12.8</text > </observationRange> </referenceRange> </observation > </component> </organizer> </entry> <entry> <organizer moodCode= "EVN" classCode="BATTERY"> <templateId root="2.16.840.1.321624.10...4.1 " /> <id nullFlavor="NA" /> <code codeSystem="local" code="XOD9823" displayName="Protime " /> <statusCode code="completed" /> <component> <observation moodCode="EVN" classCode="OBS"> <templateId root= "2.16.840.1.432402.10...4.2" /> <id nullFlavor="NA" /> < code codeSystem="local" code="Ier117" displayName="INR" /> <statusCode code="completed" /> <effectiveTime value="480262754168" /> < value unit="" xsi:type="PQ" value="2.5" /> <referenceRange> <observationRange> <text>1.0-4.0</text> </ observationRange> </referenceRange> </observation> </ component> <component> <observation moodCode="EVN" classCode="OBS"> <templateId root="2.16.840.1.356234.10...4.2" /> <id nullFlavor="NA" /> <code codeSystem="local" code="Klv1820" displayName= "Protime" /> <statusCode code="completed" /> <effectiveTime value="330291941400" /> <value unit="Sec" xsi:type="PQ" value="30.5" / > <interpretationCode codeSystem="local" code="H" /> < referenceRange> <observationRange> <text>9.9-12.8</text > </observationRange> </referenceRange> </observation > </component> </organizer> </entry> <entry> <organizer moodCode= "EVN" classCode="BATTERY"> <templateId root="03.28.840.1.708557.10..4.1 " /> <id nullFlavor="NA" /> <code codeSystem="local" code="CMG919" displayName="Influenza" /> <statusCode code="completed" /> <component > <observation moodCode="EVN" classCode="OBS"> <templateId root= "840.1.935308.11.29.21.4.2" /> <id nullFlavor="NA" /> < code codeSystem="local" code="Yjv966" displayName="Influenza" /> < statusCode code="completed" /> <effectiveTime value="047563762613" /> <value unit="" xsi:type="PQ" value="NEGATIVE FOR A and B" /> < referenceRange> <observationRange> <text>0.00-0.00</text > </observationRange> </referenceRange> </observation > </component> </organizer> </entry> <entry> <organizer moodCode= "EVN" classCode="BATTERY"> <templateId root="840.1.505531.11.29.21.4.1 " /> <id nullFlavor="NA" /> <code codeSystem="local" code="ORD68" displayName="Urinalysis" /> <statusCode code="completed" /> <component > <observation moodCode="EVN" classCode="OBS"> <templateId root= "03.28.840.1.772997.11.29.21.4.2" /> <id nullFlavor="NA" /> < code codeSystem="local" code="Spy9681" displayName="Icotest" /> < statusCode code="completed" /> <effectiveTime value="219102167327" /> <value unit="" xsi:type="PQ" value="N/A" /> < interpretationCode codeSystem="local" code="A" /> <referenceRange> <observationRange> <text>Negative</text> </ observationRange> </referenceRange> </observation> </ component> <component> <observation moodCode="EVN" classCode="OBS"> <templateId root="216.840.1.398872.10..4.2" /> <id nullFlavor="NA" /> <code codeSystem="local" code="Uox011" displayName= "Urine Volume" /> <statusCode code="completed" /> < effectiveTime value="" /> <value unit="" xsi:type="PQ" value="Urine Volume Sufficient (10mL)" /> <referenceRange> < observationRange> <text /> </observationRange> </referenceRange> </observation> </component> <component> <observation moodCode="EVN" classCode="OBS"> <templateId root= "16.840.1.155319.11.29.21.4.2" /> <id nullFlavor="NA" /> < code codeSystem="local" code="Smz384" displayName="Urine-Appearance" /> <statusCode code="completed" /> <effectiveTime value="" / > <value unit="" xsi:type="PQ" value="Clear" /> < referenceRange> <observationRange> <text>Clear</text> </observationRange> </referenceRange> </observation> </component> <component> <observation moodCode="EVN" classCode= "OBS"> <templateId root="16.840.1.611309.10.22.4.2" /> < id nullFlavor="NA" /> <code codeSystem="local" code="Zhd779" displayName="Urine-Bilirubin" /> <statusCode code="completed" /> <effectiveTime value="" /> <value unit="" xsi:type="PQ " value="Negative" /> <referenceRange> <observationRange> <text>Negative</text> </observationRange> </ referenceRange> </observation> </component> <component> <observation moodCode="EVN" classCode="OBS"> <templateId root= "216.840.1.273978.10.4.2" /> <id nullFlavor="NA" /> < code codeSystem="local" code="Kxq741" displayName="Urine-Blood" /> < statusCode code="completed" /> <effectiveTime value="" /> <value unit="" xsi:type="PQ" value="Negative" /> < referenceRange> <observationRange> <text>Negative</text > </observationRange> </referenceRange> </observation > </component> <component> <observation moodCode="EVN" classCode="OBS"> <templateId root="216.840.1.504389.11.29.21.4.2" /> <id nullFlavor="NA" /> <code codeSystem="local" code="Hsb480" displayName="Urine-Color" /> <statusCode code="completed" /> < effectiveTime value="" /> <value unit="" xsi:type="PQ" value="Yellow" /> <referenceRange> <observationRange> <text>Colorless-Lt. Yellow</text> </observationRange> </referenceRange> </observation> </component> <component> <observation moodCode="EVN" classCode="OBS"> <templateId root= "216.840.1.018410.1022.4.2" /> <id nullFlavor="NA" /> < code codeSystem="local" code="Pjo796" displayName="Urine-Glucose" /> < statusCode code="completed" /> <effectiveTime value="" /> <value unit="" xsi:type="PQ" value="Negative" /> < referenceRange> <observationRange> <text>Negative</text > </observationRange> </referenceRange> </observation > </component> <component> <observation moodCode="EVN" classCode="OBS"> <templateId root="03.28.840.1.315101.10.22.4.2" /> <id nullFlavor="NA" /> <code codeSystem="local" code="Ilb723" displayName="Urine-Ketones" /> <statusCode code="completed" /> <effectiveTime value="" /> <value unit="" xsi:type="PQ" value="Negative" /> <referenceRange> <observationRange> <text>Negative</text> </observationRange> </ referenceRange> </observation> </component> <component> <observation moodCode="EVN" classCode="OBS"> <templateId root= "03.28.840.1.662006...4.2" /> <id nullFlavor="NA" /> < code codeSystem="local" code="Vrr698" displayName="Urine-Leukocytes" /> <statusCode code="completed" /> <effectiveTime value="453901431758" / > <value unit="" xsi:type="PQ" value="Negative" /> < referenceRange> <observationRange> <text>Negative</text > </observationRange> </referenceRange> </observation > </component> <component> <observation moodCode="EVN" classCode="OBS"> <templateId root="03.28.840.1.104559.1022.4.2" /> <id nullFlavor="NA" /> <code codeSystem="local" code="Aht849" displayName="Urine-Mucus" /> <statusCode code="completed" /> < effectiveTime value="" /> <value unit="" xsi:type="PQ" value="1+" /> <interpretationCode codeSystem="local" code="A" /> <referenceRange> <observationRange> <text> </text> </observationRange> </referenceRange> </observation> </component> <component> <observation moodCode="EVN" classCode ="OBS"> <templateId root="2.16.840.1.414220.10...4.2" /> < id nullFlavor="NA" /> <code codeSystem="local" code="Dis091" displayName="Urine-Nitrite" /> <statusCode code="completed" /> <effectiveTime value="" /> <value unit="" xsi:type="PQ" value="Negative" /> <referenceRange> <observationRange> <text>Negative</text> </observationRange> </ referenceRange> </observation> </component> <component> <observation moodCode="EVN" classCode="OBS"> <templateId root= "2.16.840.1.727222.10...4.2" /> <id nullFlavor="NA" /> < code codeSystem="local" code="Tws736" displayName="Urine-Other" /> < statusCode code="completed" /> <effectiveTime value="" /> <value unit="" xsi:type="PQ" value="Culture to follow due to cath specimen" /> <interpretationCode codeSystem="local" code="A" /> <referenceRange> <observationRange> <text> </text> </observationRange> </referenceRange> </observation> </component> <component> <observation moodCode="EVN" classCode= "OBS"> <templateId root="216.840.1.896714.10..22.4.2" /> < id nullFlavor="NA" /> <code codeSystem="local" code="Dzh255" displayName="Urine-pH" /> <statusCode code="completed" /> < effectiveTime value="" /> <value unit="" xsi:type="PQ" value="7.5" /> <referenceRange> <observationRange> <text>5-8.5</text> </observationRange> </referenceRange > </observation> </component> <component> <observation moodCode="EVN" classCode="OBS"> <templateId root= "216.840.1.393645.10..4.2" /> <id nullFlavor="NA" /> < code codeSystem="local" code="Vhd289" displayName="Urine-Protein" /> < statusCode code="completed" /> <effectiveTime value="" /> <value unit="" xsi:type="PQ" value="Trace" /> < interpretationCode codeSystem="local" code="A" /> <referenceRange> <observationRange> <text>Negative</text> </ observationRange> </referenceRange> </observation> </ component> <component> <observation moodCode="EVN" classCode="OBS"> <templateId root="16.840.1.010431.10..22.4.2" /> <id nullFlavor="NA" /> <code codeSystem="local" code="Igv160" displayName= "Urine-RBC" /> <statusCode code="completed" /> <effectiveTime value="" /> <value unit="" xsi:type="PQ" value="Rare/HPF" / > <interpretationCode codeSystem="local" code="A" /> < referenceRange> <observationRange> <text> </text> </observationRange> </referenceRange> </observation> </component> <component> <observation moodCode="EVN" classCode="OBS "> <templateId root="16.840.1.540174.10.20.22.4.2" /> <id nullFlavor="NA" /> <code codeSystem="local" code="Ayv099" displayName= "Urine-Specific [place]" /> <statusCode code="completed" /> < effectiveTime value="[id number]" /> <value unit="" xsi:type="PQ" value="1.015" /> <referenceRange> <observationRange> <text>1.000-1.030</text> </observationRange> </ referenceRange> </observation> </component> <component> <observation moodCode="EVN" classCode="OBS"> <templateId root= "03.28.840.1.631833.10.22.4.2" /> <id nullFlavor="NA" /> < code codeSystem="local" code="Zzv237" displayName="Urine-WBC" /> < statusCode code="completed" /> <effectiveTime value="758577422414" /> <value unit="" xsi:type="PQ" value="Rare/HPF" /> < interpretationCode codeSystem="local" code="A" /> <referenceRange> <observationRange> <text> </text> </ observationRange> </referenceRange> </observation> </ component> <component> <observation moodCode="EVN" classCode="OBS"> <templateId root="16.840.1.678867.10.20.22.4.2" /> <id nullFlavor="NA" /> <code codeSystem="local" code="Rss092" displayName= "Urobilinogen" /> <statusCode code="completed" /> < effectiveTime value="" /> <value unit="" xsi:type="PQ" value="0.2" /> <referenceRange> <observationRange> <text>0.2-1.0</text> </observationRange> </ referenceRange> </observation> </component> </organizer> </entry > <entry> <organizer moodCode="EVN" classCode="BATTERY"> <templateId root="216.840.1.769602.10...4.1" /> <id nullFlavor="NA" /> <code codeSystem="local" code="TQA5494" displayName="Blood Culture" /> < statusCode code="completed" /> <component> <observation moodCode= "EVN" classCode="OBS"> <templateId root="216.840.1.772171.10...4.2 " /> <id nullFlavor="NA" /> <code codeSystem="local" code= "Ebf6772" displayName="PRELIM CULTURE RESULTS" /> <statusCode code= "completed" /> <effectiveTime value="" /> <value unit="" xsi:type="PQ" value="Blood Culture Negative, No Growth Day 1" /> <referenceRange> <observationRange> <text /> </observationRange> </referenceRange> </observation> </ component> <component> <observation moodCode="EVN" classCode="OBS"> <templateId root="216.840.1.175637.10...4.2" /> <id nullFlavor="NA" /> <code codeSystem="local" code="Qiz6156" displayName= "FINAL CULTURE RESULTS" /> <statusCode code="completed" /> < effectiveTime value="" /> <value unit="" xsi:type="PQ" value="Blood Culture Negative, No Growth Day 5" /> <referenceRange> <observationRange> <text /> </observationRange > </referenceRange> </observation> </component> < component> <observation moodCode="EVN" classCode="OBS"> < templateId root="216.840.1.074013.10...4.2" /> <id nullFlavor="NA " /> <code codeSystem="local" code="Usz5707" displayName="MEDIA PLATED " /> <statusCode code="completed" /> <effectiveTime value= "968486833696" /> <value unit="" xsi:type="PQ" value="Setup at 12:28 on 01/31/2016Blood Culture Media Position B38" /> <referenceRange> <observationRange> <text /> </observationRange> </referenceRange> </observation> </component> < component> <observation moodCode="EVN" classCode="OBS"> < templateId root="03.28.840.1.347680.10..4.2" /> <id nullFlavor="NA " /> <code codeSystem="local" code="Jxj1989" displayName="CULTURE SOURCE" /> <statusCode code="completed" /> <effectiveTime value="993983820089" /> <value unit="" xsi:type="PQ" value="lt hand" / > <referenceRange> <observationRange> <text /> </observationRange> </referenceRange> </observation > </component> </organizer> </entry> <entry> <organizer moodCode= "EVN" classCode="BATTERY"> <templateId root="216.840.1.377235.10...4.1 " /> <id nullFlavor="NA" /> <code codeSystem="local" code="ORD3" displayName="Comprehensive Metabolic Panel" /> <statusCode code="completed " /> <component> <observation moodCode="EVN" classCode="OBS"> <templateId root="216.840.1.856369.1022.4.2" /> <id nullFlavor ="NA" /> <code codeSystem="local" code="Res44" displayName="Albumin" / > <statusCode code="completed" /> <effectiveTime value= "721071888931" /> <value unit="g/dL" xsi:type="PQ" value="3.1" /> <interpretationCode codeSystem="local" code="L" /> <referenceRange > <observationRange> <text>3.6-5.1</text> </ observationRange> </referenceRange> </observation> </ component> <component> <observation moodCode="EVN" classCode="OBS"> <templateId root="16.840.1.405821.10.4.2" /> <id nullFlavor="NA" /> <code codeSystem="local" code="Res45" displayName= "ALP" /> <statusCode code="completed" /> <effectiveTime value= "149032978834" /> <value unit="U/L" xsi:type="PQ" value="83" /> <referenceRange> <observationRange> <text>35-130</ text> </observationRange> </referenceRange> </ observation> </component> <component> <observation moodCode= "EVN" classCode="OBS"> <templateId root="216.840.1.935846.10.22.4.2 " /> <id nullFlavor="NA" /> <code codeSystem="local" code= "Res46" displayName="ALT" /> <statusCode code="completed" /> < effectiveTime value="" /> <value unit="U/L" xsi:type="PQ" value="12" /> <referenceRange> <observationRange> <text>6-45</text> </observationRange> </referenceRange> </observation> </component> <component> <observation moodCode="EVN" classCode="OBS"> <templateId root= "216.840.1.657995.10..22.4.2" /> <id nullFlavor="NA" /> < code codeSystem="local" code="Res61" displayName="Anion Gap" /> < statusCode code="completed" /> <effectiveTime value="" /> <value unit="" xsi:type="PQ" value="14" /> <referenceRange> <observationRange> <text>6-14</text> </ observationRange> </referenceRange> </observation> </ component> <component> <observation moodCode="EVN" classCode="OBS"> <templateId root="03.28.840.1.783847.10..4.2" /> <id nullFlavor="NA" /> <code codeSystem="local" code="Res48" displayName= "AST" /> <statusCode code="completed" /> <effectiveTime value= "" /> <value unit="U/L" xsi:type="PQ" value="17" /> <referenceRange> <observationRange> <text>2-40</text > </observationRange> </referenceRange> </observation > </component> <component> <observation moodCode="EVN" classCode="OBS"> <templateId root="03.28.840.1.844836.10.20.22.4.2" /> <id nullFlavor="NA" /> <code codeSystem="local" code="Res26" displayName="BUN" /> <statusCode code="completed" /> < effectiveTime value="" /> <value unit="mg/dL" xsi:type="PQ " value="15" /> <referenceRange> <observationRange> <text>5-25</text> </observationRange> </referenceRange > </observation> </component> <component> <observation moodCode="EVN" classCode="OBS"> <templateId root= "216.840.1.561149.10.22.4.2" /> <id nullFlavor="NA" /> < code codeSystem="local" code="Res5" displayName="Calcium" /> < statusCode code="completed" /> <effectiveTime value="" /> <value unit="mg/dL" xsi:type="PQ" value="9.0" /> < referenceRange> <observationRange> <text>8.3-10.4</text > </observationRange> </referenceRange> </observation > </component> <component> <observation moodCode="EVN" classCode="OBS"> <templateId root="16.840.1.706404.22.4.2" /> <id nullFlavor="NA" /> <code codeSystem="local" code="Res21" displayName="Chloride" /> <statusCode code="completed" /> < effectiveTime value="" /> <value unit="mmol/L" xsi:type="PQ " value="103" /> <referenceRange> <observationRange> <text>95-114</text> </observationRange> </ referenceRange> </observation> </component> <component> <observation moodCode="EVN" classCode="OBS"> <templateId root= "216.840.1.934677.10.2022.4.2" /> <id nullFlavor="NA" /> < code codeSystem="local" code="Res49" displayName="CO2" /> <statusCode code="completed" /> <effectiveTime value="234719129133" /> < value unit="mEq/L" xsi:type="PQ" value="27" /> <referenceRange> <observationRange> <text>22-33</text> </ observationRange> </referenceRange> </observation> </ component> <component> <observation moodCode="EVN" classCode="OBS"> <templateId root="216.840.1.160878.10.20.22.4.2" /> <id nullFlavor="NA" /> <code codeSystem="local" code="Uyr257" displayName= "Creat" /> <statusCode code="completed" /> <effectiveTime value="" /> <value unit="mg/dL" xsi:type="PQ" value="0.70" /> <referenceRange> <observationRange> <text> 0.50-1.50</text> </observationRange> </referenceRange> </observation> </component> <component> <observation moodCode="EVN" classCode="OBS"> <templateId root= "216.840.1.976171.10.20.22.4.2" /> <id nullFlavor="NA" /> < code codeSystem="local" code="Kti377" displayName="eGFR" /> < statusCode code="completed" /> <effectiveTime value="" /> <value unit="mL/min/1.73m2" xsi:type="PQ" value="83" /> < referenceRange> <observationRange> <text>>59</text> </observationRange> </referenceRange> </observation> </component> <component> <observation moodCode="EVN" classCode ="OBS"> <templateId root="16.840.1.837577.10.22.4.2" /> < id nullFlavor="NA" /> <code codeSystem="local" code="Res7" displayName= "Globulin" /> <statusCode code="completed" /> <effectiveTime value="028737483978" /> <value unit="g/dL" xsi:type="PQ" value="2.8" / > <referenceRange> <observationRange> <text>2.3 -3.5</text> </observationRange> </referenceRange> </ observation> </component> <component> <observation moodCode= "EVN" classCode="OBS"> <templateId root="03.28.840.1.738749.10..4.2 " /> <id nullFlavor="NA" /> <code codeSystem="local" code= "Res60" displayName="Glucose" /> <statusCode code="completed" /> <effectiveTime value="" /> <value unit="mg/dL" xsi:type ="PQ" value="84" /> <referenceRange> <observationRange> <text>70-110</text> </observationRange> </ referenceRange> </observation> </component> <component> <observation moodCode="EVN" classCode="OBS"> <templateId root= "03.28.840.1.711775.10.2022.4.2" /> <id nullFlavor="NA" /> < code codeSystem="local" code="Res52" displayName="Osmo" /> <statusCode code="completed" /> <effectiveTime value="212048006114" /> < value unit="" xsi:type="PQ" value="289" /> <referenceRange> <observationRange> <text>280-295</text> </ observationRange> </referenceRange> </observation> </ component> <component> <observation moodCode="EVN" classCode="OBS"> <templateId root="216.840.1.057900.10..22.4.2" /> <id nullFlavor="NA" /> <code codeSystem="local" code="Res20" displayName= "Potassium" /> <statusCode code="completed" /> <effectiveTime value="" /> <value unit="mmol/L" xsi:type="PQ" value="3.9" /> <referenceRange> <observationRange> <text> 3.5-5.3</text> </observationRange> </referenceRange> </observation> </component> <component> <observation moodCode= "EVN" classCode="OBS"> <templateId root="16.840.1.974206...4.2 " /> <id nullFlavor="NA" /> <code codeSystem="local" code= "Res19" displayName="Sodium" /> <statusCode code="completed" /> <effectiveTime value="680146477717" /> <value unit="mmol/L" xsi:type ="PQ" value="140" /> <referenceRange> <observationRange> <text>134-148</text> </observationRange> </ referenceRange> </observation> </component> <component> <observation moodCode="EVN" classCode="OBS"> <templateId root= "16.840.1.551825.10..22.4.2" /> <id nullFlavor="NA" /> < code codeSystem="local" code="Res51" displayName="TBil" /> <statusCode code="completed" /> <effectiveTime value="935922397403" /> < value unit="mg/dL" xsi:type="PQ" value="0.8" /> <referenceRange> <observationRange> <text>0.2-1.2</text> </ observationRange> </referenceRange> </observation> </ component> <component> <observation moodCode="EVN" classCode="OBS"> <templateId root="16.840.1.825983.10.20.22.4.2" /> <id nullFlavor="NA" /> <code codeSystem="local" code="Res24" displayName= "TP" /> <statusCode code="completed" /> <effectiveTime value= "" /> <value unit="g/dL" xsi:type="PQ" value="5.9" /> <interpretationCode codeSystem="local" code="L" /> <referenceRange > <observationRange> <text>6.0-8.3</text> </ observationRange> </referenceRange> </observation> </ component> </organizer> </entry> <entry> <organizer moodCode="EVN" classCode="BATTERY"> <templateId root="216.840.1.494223.10..22.4.1" /> <id nullFlavor="NA" /> <code codeSystem="local" code="BJO7375" displayName="Blood Culture" /> <statusCode code="completed" /> < component> <observation moodCode="EVN" classCode="OBS"> < templateId root="16.840.1.180149.10..22.4.2" /> <id nullFlavor="NA " /> <code codeSystem="local" code="Hsr6813" displayName="PRELIM CULTURE RESULTS" /> <statusCode code="completed" /> < effectiveTime value="" /> <value unit="" xsi:type="PQ" value="Blood Culture Negative, No Growth Day 1" /> <referenceRange> <observationRange> <text /> </observationRange > </referenceRange> </observation> </component> < component> <observation moodCode="EVN" classCode="OBS"> < templateId root="2.16.840.1.978712.10..4.2" /> <id nullFlavor="NA " /> <code codeSystem="local" code="Buu7398" displayName="FINAL CULTURE RESULTS" /> <statusCode code="completed" /> < effectiveTime value="" /> <value unit="" xsi:type="PQ" value="Blood Culture Negative, No Growth Day 5" /> <referenceRange> <observationRange> <text /> </observationRange > </referenceRange> </observation> </component> < component> <observation moodCode="EVN" classCode="OBS"> < templateId root="216.840.1.669977.11.29.214.2" /> <id nullFlavor="NA " /> <code codeSystem="local" code="Ums7841" displayName="MEDIA PLATED " /> <statusCode code="completed" /> <effectiveTime value= "" /> <value unit="" xsi:type="PQ" value="Setup at 12:29 [facility]31/2016[facility] Culture Media Position C46" /> <referenceRange> <observationRange> <text /> </observationRange> </referenceRange> </observation> </component> < component> <observation moodCode="EVN" classCode="OBS"> < templateId root="2.16.840.1.420201...4.2" /> <id nullFlavor="NA " /> <code codeSystem="local" code="Phe4256" displayName="CULTURE SOURCE" /> <statusCode code="completed" /> <effectiveTime value="" /> <value unit="" xsi:type="PQ" value="lt ac" /> <referenceRange> <observationRange> <text /> </observationRange> </referenceRange> </observation> </component> </organizer> </entry> <entry> <organizer moodCode="EVN " classCode="BATTERY"> <templateId root="216.840.1.685206.10..22.4.1" / > <id nullFlavor="NA" /> <code codeSystem="local" code="PYF9875" displayName="Urine Culture" /> <statusCode code="completed" /> < component> <observation moodCode="EVN" classCode="OBS"> < templateId root="2.16.840.1.426603.10..22.4.2" /> <id nullFlavor="NA " /> <code codeSystem="local" code="Igj0934" displayName="FINAL CULTURE RESULTS" /> <statusCode code="completed" /> < effectiveTime value="" /> <value unit="" xsi:type="PQ" value="No Growth 48 hours" /> <referenceRange> < observationRange> <text /> </observationRange> </referenceRange> </observation> </component> <component> <observation moodCode="EVN" classCode="OBS"> <templateId root= "216.840.1.146906.10..22.4.2" /> <id nullFlavor="NA" /> < code codeSystem="local" code="Lab0336" displayName="MEDIA PLATED" /> < statusCode code="completed" /> <effectiveTime value="" /> <value unit="" xsi:type="PQ" value="Setup at 16:05 on 01/31/2016" /> <referenceRange> <observationRange> <text /> </observationRange> </referenceRange> </observation> </component> <component> <observation moodCode="EVN" classCode= "OBS"> <templateId root="16.840.1.467907.11.29.21.4.2" /> < id nullFlavor="NA" /> <code codeSystem="local" code="Cjc2398" displayName="CULTURE SOURCE" /> <statusCode code="completed" /> <effectiveTime value="330414033394" /> <value unit="" xsi:type="PQ" value="cath urine" /> <referenceRange> <observationRange> <text /> </observationRange> </referenceRange> </observation> </component> </organizer> </entry> <entry> < organizer moodCode="EVN" classCode="BATTERY"> <templateId root= "216.840.1.301834...4.1" /> <id nullFlavor="NA" /> <code codeSystem="local" code="UAY5593" displayName="Protime " /> <statusCode code="completed" /> <component> <observation moodCode="EVN" classCode="OBS"> <templateId root="216.840.1.584385.10..4.2" /> <id nullFlavor="NA" /> <code codeSystem="local" code="Few211" displayName="INR" /> <statusCode code="completed" /> < effectiveTime value="336775955907" /> <value unit="" xsi:type="PQ" value="2.6" /> <referenceRange> <observationRange> <text>1.0-4.0</text> </observationRange> </ referenceRange> </observation> </component> <component> <observation moodCode="EVN" classCode="OBS"> <templateId root= "216.840.1.760432.11.29.21.4.2" /> <id nullFlavor="NA" /> < code codeSystem="local" code="Aie4650" displayName="Protime" /> < statusCode code="completed" /> <effectiveTime value="677730055418" /> <value unit="Sec" xsi:type="PQ" value="31.7" /> < interpretationCode codeSystem="local" code="H" /> <referenceRange> <observationRange> <text>9.9-12.8</text> </ observationRange> </referenceRange> </observation> </ component> </organizer> </entry> <entry> <organizer moodCode="EVN" classCode="BATTERY"> <templateId root="216.840.1.979299.11.29.21.4.1" /> <id nullFlavor="NA" /> <code codeSystem="local" code="FSK9351" displayName="Protime " /> <statusCode code="completed" /> <component> <observation moodCode="EVN" classCode="OBS"> <templateId root= "216.840.1.008823.11.29.21.4.2" /> <id nullFlavor="NA" /> < code codeSystem="local" code="Ggn216" displayName="INR" /> <statusCode code="completed" /> <effectiveTime value="299562881955" /> < value unit="" xsi:type="PQ" value="2.0" /> <referenceRange> <observationRange> <text>1.0-4.0</text> </ observationRange> </referenceRange> </observation> </ component> <component> <observation moodCode="EVN" classCode="OBS"> <templateId root="216.840.1.172704.11.29.21.4.2" /> <id nullFlavor="NA" /> <code codeSystem="local" code="Nxd9103" displayName= "Protime" /> <statusCode code="completed" /> <effectiveTime value="020213687080" /> <value unit="Sec" xsi:type="PQ" value="24.8" / > <interpretationCode codeSystem="local" code="H" /> < referenceRange> <observationRange> <text>9.9-12.8</text > </observationRange> </referenceRange> </observation > </component> </organizer> </entry> <entry> <organizer moodCode= "EVN" classCode="BATTERY"> <templateId root="216.840.1.850259.10..22.4.1 " /> <id nullFlavor="NA" /> <code codeSystem="local" code="PEJ0157" displayName="Protime " /> <statusCode code="completed" /> <component> <observation moodCode="EVN" classCode="OBS"> <templateId root= "216.840.1.148871.10..22.4.2" /> <id nullFlavor="NA" /> < code codeSystem="local" code="Oaw832" displayName="INR" /> <statusCode code="completed" /> <effectiveTime value="944663828425" /> < value unit="" xsi:type="PQ" value="3.5" /> <referenceRange> <observationRange> <text>1.0-4.0</text> </ observationRange> </referenceRange> </observation> </ component> <component> <observation moodCode="EVN" classCode="OBS"> <templateId root="216.840.1.233802.10..22.4.2" /> <id nullFlavor="NA" /> <code codeSystem="local" code="Tez7441" displayName= "Protime" /> <statusCode code="completed" /> <effectiveTime value="414476661031" /> <value unit="Sec" xsi:type="PQ" value="43.2" / > <interpretationCode codeSystem="local" code="H" /> < referenceRange> <observationRange> <text>9.9-12.8</text > </observationRange> </referenceRange> </observation > </component> </organizer> </entry> <entry> <organizer moodCode= "EVN" classCode="BATTERY"> <templateId root="16.840.1.205423.22.4.1 " /> <id nullFlavor="NA" /> <code codeSystem="local" code="MJW4239" displayName="Protime " /> <statusCode code="completed" /> <component> <observation moodCode="EVN" classCode="OBS"> <templateId root= "16.840.1.965378..22.4.2" /> <id nullFlavor="NA" /> < code codeSystem="local" code="Pkl549" displayName="INR" /> <statusCode code="completed" /> <effectiveTime value="662875552127" /> < value unit="" xsi:type="PQ" value="1.7" /> <referenceRange> <observationRange> <text>1.0-4.0</text> </ observationRange> </referenceRange> </observation> </ component> <component> <observation moodCode="EVN" classCode="OBS"> <templateId root="03.28.840.1.346146.102022.4.2" /> <id nullFlavor="NA" /> <code codeSystem="local" code="[id number]" displayName= "Protime" /> <statusCode code="completed" /> <effectiveTime value="752348078943" /> <value unit="Sec" xsi:type="PQ" value="19.9" / > <interpretationCode codeSystem="local" code="H" /> < referenceRange> <observationRange> <text>9.9-12.8</text > </observationRange> </referenceRange> </observation > </component> </organizer> </entry> <entry> <organizer moodCode= "EVN" classCode="BATTERY"> <templateId root="216.840.1.720373.10..22.4.1 " /> <id nullFlavor="NA" /> <code codeSystem="local" code="PJC0405" displayName="Protime " /> <statusCode code="completed" /> <component> <observation moodCode="EVN" classCode="OBS"> <templateId root= "216.840.1.960689.10...4.2" /> <id nullFlavor="NA" /> < code codeSystem="local" code="Dhj979" displayName="INR" /> <statusCode code="completed" /> <effectiveTime value="348072843614" /> < value unit="" xsi:type="PQ" value="2.6" /> <referenceRange> <observationRange> <text>1.0-4.0</text> </ observationRange> </referenceRange> </observation> </ component> <component> <observation moodCode="EVN" classCode="OBS"> <templateId root="216.840.1.364564.10..4.2" /> <id nullFlavor="NA" /> <code codeSystem="local" code="Gbm1481" displayName= "Protime" /> <statusCode code="completed" /> <effectiveTime value="389897934372" /> <value unit="Sec" xsi:type="PQ" value="32.4" / > <interpretationCode codeSystem="local" code="H" /> < referenceRange> <observationRange> <text>9.9-12.8</text > </observationRange> </referenceRange> </observation > </component> </organizer> </entry> <entry> <organizer moodCode= "EVN" classCode="BATTERY"> <templateId root="216.840.1.825852.10..22.4.1 " /> <id nullFlavor="NA" /> <code codeSystem="local" code="RBE6292" displayName="Other Culture" /> <statusCode code="completed" /> < component> <observation moodCode="EVN" classCode="OBS"> < templateId root="216.840.1.370635.10...4.2" /> <id nullFlavor="NA " /> <code codeSystem="local" code="Drj4673" displayName="PRELIM CULTURE RESULTS" /> <statusCode code="completed" /> < effectiveTime value="612894559795" /> <value unit="" xsi:type="PQ" value="Moderate apjxxldkpamX0Y9IIy further workup" /> <referenceRange> <observationRange> <text /> </ observationRange> </referenceRange> </observation> </ component> <component> <observation moodCode="EVN" classCode="OBS"> <templateId root="216.840.1.093888.10..22.4.2" /> <id nullFlavor="NA" /> <code codeSystem="local" code="Yxe1769" displayName= "FINAL CULTURE RESULTS" /> <statusCode code="completed" /> < effectiveTime value="720384683020" /> <value unit="" xsi:type="PQ" value="Moderate Dipthroids No Further Workup done" /> <referenceRange> <observationRange> <text /> </ observationRange> </referenceRange> </observation> </ component> <component> <observation moodCode="EVN" classCode="OBS"> <templateId root="216.840.1.281624.10.4.2" /> <id nullFlavor="NA" /> <code codeSystem="local" code="Gvz9702" displayName= "MEDIA PLATED" /> <statusCode code="completed" /> < effectiveTime value="554383833960" /> <value unit="" xsi:type="PQ" value="Setup at 13:20 on 03/08/[id number] lower medial calf" /> < referenceRange> <observationRange> <text /> < /observationRange> </referenceRange> </observation> </ component> </organizer> </entry> <entry> <organizer moodCode="EVN" classCode="BATTERY"> <templateId root="216.840.1.843338.11.29.214.1" /> <id nullFlavor="NA" /> <code codeSystem="local" code="CAT8679" displayName="Protime " /> <statusCode code="completed" /> <component> <observation moodCode="EVN" classCode="OBS"> <templateId root= "216.840.1.723682.11.29.21.4.2" /> <id nullFlavor="NA" /> < code codeSystem="local" code="Vtd348" displayName="INR" /> <statusCode code="completed" /> <effectiveTime value="749370427461" /> < value unit="" xsi:type="PQ" value="1.8" /> <referenceRange> <observationRange> <text>1.0-4.0</text> </ observationRange> </referenceRange> </observation> </ component> <component> <observation moodCode="EVN" classCode="OBS"> <templateId root="216.840.1.103343.10.22.4.2" /> <id nullFlavor="NA" /> <code codeSystem="local" code="Zap1105" displayName= "Protime" /> <statusCode code="completed" /> <effectiveTime value="934791618337" /> <value unit="Sec" xsi:type="PQ" value="22.1" / > <interpretationCode codeSystem="local" code="H" /> < referenceRange> <observationRange> <text>9.9-12.8</text > </observationRange> </referenceRange> </observation > </component> </organizer> </entry> <entry> <organizer moodCode= "EVN" classCode="BATTERY"> <templateId root="03.28.840.1.924303.10..4.1 " /> <id nullFlavor="NA" /> <code codeSystem="local" code="ZUL8025" displayName="Protime " /> <statusCode code="completed" /> <component> <observation moodCode="EVN" classCode="OBS"> <templateId root= "16.840.1.740219.10..22.4.2" /> <id nullFlavor="NA" /> < code codeSystem="local" code="Xzq077" displayName="INR" /> <statusCode code="completed" /> <effectiveTime value="226146936275" /> < value unit="" xsi:type="PQ" value="1.5" /> <referenceRange> <observationRange> <text>1.0-4.0</text> </ observationRange> </referenceRange> </observation> </ component> <component> <observation moodCode="EVN" classCode="OBS"> <templateId root="03.28.840.1.272449.1022.4.2" /> <id nullFlavor="NA" /> <code codeSystem="local" code="Awm9283" displayName= "Protime" /> <statusCode code="completed" /> <effectiveTime value="893385832949" /> <value unit="Sec" xsi:type="PQ" value="18.2" / > <interpretationCode codeSystem="local" code="H" /> < referenceRange> <observationRange> <text>9.9-12.8</text > </observationRange> </referenceRange> </observation > </component> </organizer> </entry> <entry> <organizer moodCode= "EVN" classCode="BATTERY"> <templateId root="03.28.840.1.395824.10.4.1 " /> <id nullFlavor="NA" /> <code codeSystem="local" code="SSN5375" displayName="Protime " /> <statusCode code="completed" /> <component> <observation moodCode="EVN" classCode="OBS"> <templateId root= "03.28.840.1.721619.1022.4.2" /> <id nullFlavor="NA" /> < code codeSystem="local" code="Gym874" displayName="INR" /> <statusCode code="completed" /> <effectiveTime value="394196976440" /> < value unit="" xsi:type="PQ" value="2.5" /> <referenceRange> <observationRange> <text>1.0-4.0</text> </ observationRange> </referenceRange> </observation> </ component> <component> <observation moodCode="EVN" classCode="OBS"> <templateId root="216.840.1.580258.10..4.2" /> <id nullFlavor="NA" /> <code codeSystem="local" code="Bpz0150" displayName= "Protime" /> <statusCode code="completed" /> <effectiveTime value="983824619000" /> <value unit="Sec" xsi:type="PQ" value="30.0" / > <interpretationCode codeSystem="local" code="H" /> < referenceRange> <observationRange> <text>9.9-12.8</text > </observationRange> </referenceRange> </observation > </component> </organizer> </entry> <entry> <organizer moodCode= "EVN" classCode="BATTERY"> <templateId root="216.840.1.896359.10...4.1 " /> <id nullFlavor="NA" /> <code codeSystem="local" code="XDZ3382" displayName="Protime " /> <statusCode code="completed" /> <component> <observation moodCode="EVN" classCode="OBS"> <templateId root= "216.840.1.775220.10...4.2" /> <id nullFlavor="NA" /> < code codeSystem="local" code="Lsk368" displayName="INR" /> <statusCode code="completed" /> <effectiveTime value="192484507270" /> < value unit="" xsi:type="PQ" value="2.5" /> <referenceRange> <observationRange> <text>1.0-4.0</text> </ observationRange> </referenceRange> </observation> </ component> <component> <observation moodCode="EVN" classCode="OBS"> <templateId root="2.16.840.1.297488.10..4.2" /> <id nullFlavor="NA" /> <code codeSystem="local" code="Fie8817" displayName= "Protime" /> <statusCode code="completed" /> <effectiveTime value="933166816217" /> <value unit="Sec" xsi:type="PQ" value="30.0" / > <interpretationCode codeSystem="local" code="H" /> < referenceRange> <observationRange> <text>9.9-12.8</text > </observationRange> </referenceRange> </observation > </component> </organizer> </entry> <entry> <organizer moodCode= "EVN" classCode="BATTERY"> <templateId root="216.840.1.377979.10..4.1 " /> <id nullFlavor="NA" /> <code codeSystem="local" code="HCD8788" displayName="Protime " /> <statusCode code="completed" /> <component> <observation moodCode="EVN" classCode="OBS"> <templateId root= "216.840.1.383342.10..22.4.2" /> <id nullFlavor="NA" /> < code codeSystem="local" code="Pms627" displayName="INR" /> <statusCode code="completed" /> <effectiveTime value="370208843935" /> < value unit="" xsi:type="PQ" value="2.1" /> <referenceRange> <observationRange> <text>1.0-4.0</text> </ observationRange> </referenceRange> </observation> </ component> <component> <observation moodCode="EVN" classCode="OBS"> <templateId root="216.840.1.940926.10.20.22.4.2" /> <id nullFlavor="NA" /> <code codeSystem="local" code="Uee1858" displayName= "Protime" /> <statusCode code="completed" /> <effectiveTime value="527062833266" /> <value unit="Sec" xsi:type="PQ" value="26.0" / > <interpretationCode codeSystem="local" code="H" /> < referenceRange> <observationRange> <text>9.9-12.8</text > </observationRange> </referenceRange> </observation > </component> </organizer> </entry> <entry> <organizer moodCode= "EVN" classCode="BATTERY"> <templateId root="216.840.1.448380.10..22.4.1 " /> <id nullFlavor="NA" /> <code codeSystem="local" code="ORD4" displayName="BMP" /> <statusCode code="completed" /> <component> <observation moodCode="EVN" classCode="OBS"> <templateId root= "2.16.840.1.227273.10.20.22.4.2" /> <id nullFlavor="NA" /> < code codeSystem="local" code="Res61" displayName="Anion Gap" /> < statusCode code="completed" /> <effectiveTime value="824951257494" /> <value unit="" xsi:type="PQ" value="18" /> < interpretationCode codeSystem="local" code="H" /> <referenceRange> <observationRange> <text>6-14</text> </ observationRange> </referenceRange> </observation> </ component> <component> <observation moodCode="EVN" classCode="OBS"> <templateId root="216.840.1.406717.10..22.4.2" /> <id nullFlavor="NA" /> <code codeSystem="local" code="Res26" displayName= "BUN" /> <statusCode code="completed" /> <effectiveTime value= "" /> <value unit="mg/dL" xsi:type="PQ" value="23" /> <referenceRange> <observationRange> <text>5-25</ text> </observationRange> </referenceRange> </ observation> </component> <component> <observation moodCode= "EVN" classCode="OBS"> <templateId root="216.840.1.656103.10..4.2 " /> <id nullFlavor="NA" /> <code codeSystem="local" code= "Res5" displayName="Calcium" /> <statusCode code="completed" /> <effectiveTime value="" /> <value unit="mg/dL" xsi:type= "PQ" value="9.1" /> <referenceRange> <observationRange> <text>8.3-10.4</text> </observationRange> </ referenceRange> </observation> </component> <component> <observation moodCode="EVN" classCode="OBS"> <templateId root= "16.840.1.325460..22.4.2" /> <id nullFlavor="NA" /> < code codeSystem="local" code="Res21" displayName="Chloride" /> < statusCode code="completed" /> <effectiveTime value="" /> <value unit="mmol/L" xsi:type="PQ" value="101" /> < referenceRange> <observationRange> <text>95-114</text> </observationRange> </referenceRange> </observation> </component> <component> <observation moodCode="EVN" classCode ="OBS"> <templateId root="216.840.1.157682.10..4.2" /> < id nullFlavor="NA" /> <code codeSystem="local" code="Res49" displayName ="CO2" /> <statusCode code="completed" /> <effectiveTime value ="" /> <value unit="mEq/L" xsi:type="PQ" value="28" /> <referenceRange> <observationRange> <text>22-33</ text> </observationRange> </referenceRange> </ observation> </component> <component> <observation moodCode= "EVN" classCode="OBS"> <templateId root="216.840.1.982266.11.29.214.2 " /> <id nullFlavor="NA" /> <code codeSystem="local" code= "Jlp720" displayName="Creat" /> <statusCode code="completed" /> <effectiveTime value="" /> <value unit="mg/dL" xsi:type= "PQ" value="0.74" /> <referenceRange> <observationRange> <text>0.50-1.50</text> </observationRange> </ referenceRange> </observation> </component> <component> <observation moodCode="EVN" classCode="OBS"> <templateId root= "03.28.840.1.213357.10.22.4.2" /> <id nullFlavor="NA" /> < code codeSystem="local" code="Zvt180" displayName="eGFR" /> < statusCode code="completed" /> <effectiveTime value="" /> <value unit="mL/min/1.73m2" xsi:type="PQ" value="78" /> < referenceRange> <observationRange> <text>>59</text> </observationRange> </referenceRange> </observation> </component> <component> <observation moodCode="EVN" classCode ="OBS"> <templateId root="03.28.840.1.202092.10.20.22.4.2" /> < id nullFlavor="NA" /> <code codeSystem="local" code="Res60" displayName ="Glucose" /> <statusCode code="completed" /> <effectiveTime value="" /> <value unit="mg/dL" xsi:type="PQ" value="78" / > <referenceRange> <observationRange> <text>70- 110</text> </observationRange> </referenceRange> </ observation> </component> <component> <observation moodCode= "EVN" classCode="OBS"> <templateId root="03.28.840.1.125582.10..4.2 " /> <id nullFlavor="NA" /> <code codeSystem="local" code= "Res52" displayName="Osmo" /> <statusCode code="completed" /> <effectiveTime value="258079612541" /> <value unit="" xsi:type="PQ" value="298" /> <interpretationCode codeSystem="local" code="H" /> <referenceRange> <observationRange> <text>280-295</ text> </observationRange> </referenceRange> </ observation> </component> <component> <observation moodCode= "EVN" classCode="OBS"> <templateId root="03.28.840.1.743060.10.20.22.4.2 " /> <id nullFlavor="NA" /> <code codeSystem="local" code= "Res20" displayName="Potassium" /> <statusCode code="completed" /> <effectiveTime value="079192019515" /> <value unit="mmol/L" xsi: type="PQ" value="3.9" /> <referenceRange> <observationRange > <text>3.5-5.3</text> </observationRange> </ referenceRange> </observation> </component> <component> <observation moodCode="EVN" classCode="OBS"> <templateId root= "03.28.840.1.970773.10..4.2" /> <id nullFlavor="NA" /> < code codeSystem="local" code="Res19" displayName="Sodium" /> < statusCode code="completed" /> <effectiveTime value="750757657039" /> <value unit="mmol/L" xsi:type="PQ" value="143" /> < referenceRange> <observationRange> <text>134-148</text> </observationRange> </referenceRange> </observation > </component> </organizer> </entry> <entry> <organizer moodCode= "EVN" classCode="BATTERY"> <templateId root="03.28.840.1.582787.10...4.1 " /> <id nullFlavor="NA" /> <code codeSystem="local" code="RVC9812" displayName="Protime " /> <statusCode code="completed" /> <component> <observation moodCode="EVN" classCode="OBS"> <templateId root= "03.28.840.1.155053...4.2" /> <id nullFlavor="NA" /> < code codeSystem="local" code="Eqf997" displayName="INR" /> <statusCode code="completed" /> <effectiveTime value="820672895567" /> < value unit="" xsi:type="PQ" value="2.3" /> <referenceRange> <observationRange> <text>1.0-4.0</text> </ observationRange> </referenceRange> </observation> </ component> <component> <observation moodCode="EVN" classCode="OBS"> <templateId root="840.1.726317.10.4.2" /> <id nullFlavor="NA" /> <code codeSystem="local" code="Rxg9766" displayName= "Protime" /> <statusCode code="completed" /> <effectiveTime value="800476246079" /> <value unit="Sec" xsi:type="PQ" value="27.8" / > <interpretationCode codeSystem="local" code="H" /> < referenceRange> <observationRange> <text>9.9-12.8</text > </observationRange> </referenceRange> </observation > </component> </organizer> </entry> <entry> <organizer moodCode= "EVN" classCode="BATTERY"> <templateId root="840.1.688218.10.4.1 " /> <id nullFlavor="NA" /> <code codeSystem="local" code="BHF5043" displayName="Protime " /> <statusCode code="completed" /> <component> <observation moodCode="EVN" classCode="OBS"> <templateId root= "840.1.088122.1022.4.2" /> <id nullFlavor="NA" /> < code codeSystem="local" code="Rfv159" displayName="INR" /> <statusCode code="completed" /> <effectiveTime value="156915437415" /> < value unit="" xsi:type="PQ" value="2.0" /> <referenceRange> <observationRange> <text>1.0-4.0</text> </ observationRange> </referenceRange> </observation> </ component> <component> <observation moodCode="EVN" classCode="OBS"> <templateId root="03.28.840.1.160143.10.20.22.4.2" /> <id nullFlavor="NA" /> <code codeSystem="local" code="Nos0670" displayName= "Protime" /> <statusCode code="completed" /> <effectiveTime value="" /> <value unit="Sec" xsi:type="PQ" value="24.6" / > <interpretationCode codeSystem="local" code="H" /> < referenceRange> <observationRange> <text>9.9-12.8</text > </observationRange> </referenceRange> </observation > </component> </organizer> </entry> <entry> <organizer moodCode= "EVN" classCode="BATTERY"> <templateId root="840.1.696531.10...4.1 " /> <id nullFlavor="NA" /> <code codeSystem="local" code="ORD4" displayName="BMP" /> <statusCode code="completed" /> <component> <observation moodCode="EVN" classCode="OBS"> <templateId root= "03.28.840.1.281772.10.20.22.4.2" /> <id nullFlavor="NA" /> < code codeSystem="local" code="Res61" displayName="Anion Gap" /> < statusCode code="completed" /> <effectiveTime value="735196517049" /> <value unit="" xsi:type="PQ" value="17" /> < interpretationCode codeSystem="local" code="H" /> <referenceRange> <observationRange> <text>6-14</text> </ observationRange> </referenceRange> </observation> </ component> <component> <observation moodCode="EVN" classCode="OBS"> <templateId root="216.840.1.634140.10.20.22.4.2" /> <id nullFlavor="NA" /> <code codeSystem="local" code="Res26" displayName= "BUN" /> <statusCode code="completed" /> <effectiveTime value= "" /> <value unit="mg/dL" xsi:type="PQ" value="18" /> <referenceRange> <observationRange> <text>5-25</ text> </observationRange> </referenceRange> </ observation> </component> <component> <observation moodCode= "EVN" classCode="OBS"> <templateId root="03.28.840.1.306666.11.29.21.4.2 " /> <id nullFlavor="NA" /> <code codeSystem="local" code= "Res5" displayName="Calcium" /> <statusCode code="completed" /> <effectiveTime value="" /> <value unit="mg/dL" xsi:type= "PQ" value="9.0" /> <referenceRange> <observationRange> <text>8.3-10.4</text> </observationRange> </ referenceRange> </observation> </component> <component> <observation moodCode="EVN" classCode="OBS"> <templateId root= "03.28.840.1.194768..22.4.2" /> <id nullFlavor="NA" /> < code codeSystem="local" code="Res21" displayName="Chloride" /> < statusCode code="completed" /> <effectiveTime value="" /> <value unit="mmol/L" xsi:type="PQ" value="99" /> < referenceRange> <observationRange> <text>95-114</text> </observationRange> </referenceRange> </observation> </component> <component> <observation moodCode="EVN" classCode ="OBS"> <templateId root="216.840.1.283989.10..22.4.2" /> < id nullFlavor="NA" /> <code codeSystem="local" code="Res49" displayName ="CO2" /> <statusCode code="completed" /> <effectiveTime value ="" /> <value unit="mEq/L" xsi:type="PQ" value="28" /> <referenceRange> <observationRange> <text>22-33</ text> </observationRange> </referenceRange> </ observation> </component> <component> <observation moodCode= "EVN" classCode="OBS"> <templateId root="216.840.1.354455.10...4.2 " /> <id nullFlavor="NA" /> <code codeSystem="local" code= "Xgt981" displayName="Creat" /> <statusCode code="completed" /> <effectiveTime value="" /> <value unit="mg/dL" xsi:type= "PQ" value="0.78" /> <referenceRange> <observationRange> <text>0.50-1.50</text> </observationRange> </ referenceRange> </observation> </component> <component> <observation moodCode="EVN" classCode="OBS"> <templateId root= "216.840.1.210678.10..22.4.2" /> <id nullFlavor="NA" /> < code codeSystem="local" code="Fcb876" displayName="eGFR" /> < statusCode code="completed" /> <effectiveTime value="" /> <value unit="mL/min/1.73m2" xsi:type="PQ" value="73" /> < referenceRange> <observationRange> <text>>59</text> </observationRange> </referenceRange> </observation> </component> <component> <observation moodCode="EVN" classCode ="OBS"> <templateId root="216.840.1.278784.10..22.4.2" /> < id nullFlavor="NA" /> <code codeSystem="local" code="Res60" displayName ="Glucose" /> <statusCode code="completed" /> <effectiveTime value="" /> <value unit="mg/dL" xsi:type="PQ" value="83" / > <referenceRange> <observationRange> <text>70- 110</text> </observationRange> </referenceRange> </ observation> </component> <component> <observation moodCode= "EVN" classCode="OBS"> <templateId root="216.840.1.825829.10..22.4.2 " /> <id nullFlavor="NA" /> <code codeSystem="local" code= "Res52" displayName="Osmo" /> <statusCode code="completed" /> <effectiveTime value="" /> <value unit="" xsi:type="PQ" value="290" /> <referenceRange> <observationRange> <text>280-295</text> </observationRange> </ referenceRange> </observation> </component> <component> <observation moodCode="EVN" classCode="OBS"> <templateId root= "216.840.1.605155.11.29.21.4.2" /> <id nullFlavor="NA" /> < code codeSystem="local" code="Res20" displayName="Potassium" /> < statusCode code="completed" /> <effectiveTime value="" /> <value unit="mmol/L" xsi:type="PQ" value="3.6" /> < referenceRange> <observationRange> <text>3.5-5.3</text> </observationRange> </referenceRange> </observation > </component> <component> <observation moodCode="EVN" classCode="OBS"> <templateId root="16.840.1.576249.11.29.21.4.2" /> <id nullFlavor="NA" /> <code codeSystem="local" code="Res19" displayName="Sodium" /> <statusCode code="completed" /> < effectiveTime value="" /> <value unit="mmol/L" xsi:type="PQ " value="140" /> <referenceRange> <observationRange> <text>134-148</text> </observationRange> </ referenceRange> </observation> </component> </organizer> </entry > <entry> <organizer moodCode="EVN" classCode="BATTERY"> <templateId root="03.28.840.1.700441.11.29.21.4.1" /> <id nullFlavor="NA" /> <code codeSystem="local" code="ORD3" displayName="Comprehensive Metabolic Panel" /> <statusCode code="completed" /> <component> <observation moodCode="EVN" classCode="OBS"> <templateId root= "16.840.1.248614.10.4.2" /> <id nullFlavor="NA" /> < code codeSystem="local" code="Res44" displayName="Albumin" /> < statusCode code="completed" /> <effectiveTime value="523159710876" /> <value unit="g/dL" xsi:type="PQ" value="3.8" /> < referenceRange> <observationRange> <text>3.6-5.1</text> </observationRange> </referenceRange> </observation > </component> <component> <observation moodCode="EVN" classCode="OBS"> <templateId root="03.28.840.1.604716.10..22.4.2" /> <id nullFlavor="NA" /> <code codeSystem="local" code="Res45" displayName="ALP" /> <statusCode code="completed" /> < effectiveTime value="534177639362" /> <value unit="U/L" xsi:type="PQ" value="93" /> <referenceRange> <observationRange> <text>35-130</text> </observationRange> </referenceRange > </observation> </component> <component> <observation moodCode="EVN" classCode="OBS"> <templateId root= "03.28.840.1.104729.10...4.2" /> <id nullFlavor="NA" /> < code codeSystem="local" code="Res46" displayName="ALT" /> <statusCode code="completed" /> <effectiveTime value="068423222961" /> < value unit="U/L" xsi:type="PQ" value="27" /> <referenceRange> <observationRange> <text>6-45</text> </ observationRange> </referenceRange> </observation> </ component> <component> <observation moodCode="EVN" classCode="OBS"> <templateId root="03.28.840.1.822735.104.2" /> <id nullFlavor="NA" /> <code codeSystem="local" code="Res61" displayName= "Anion Gap" /> <statusCode code="completed" /> <effectiveTime value="590620060115" /> <value unit="" xsi:type="PQ" value="15" /> <interpretationCode codeSystem="local" code="H" /> < referenceRange> <observationRange> <text>6-14</text> </observationRange> </referenceRange> </observation> </component> <component> <observation moodCode="EVN" classCode= "OBS"> <templateId root="2.16.840.1.754529.11.29.214.2" /> < id nullFlavor="NA" /> <code codeSystem="local" code="Res48" displayName ="AST" /> <statusCode code="completed" /> <effectiveTime value ="137462301352" /> <value unit="U/L" xsi:type="PQ" value="28" /> <referenceRange> <observationRange> <text>2-40</text > </observationRange> </referenceRange> </observation > </component> <component> <observation moodCode="EVN" classCode="OBS"> <templateId root="2.16.840.1.115215.11.29.21.4.2" /> <id nullFlavor="NA" /> <code codeSystem="local" code="Res26" displayName="BUN" /> <statusCode code="completed" /> < effectiveTime value="268542690175" /> <value unit="mg/dL" xsi:type="PQ " value="24" /> <referenceRange> <observationRange> <text>5-25</text> </observationRange> </referenceRange > </observation> </component> <component> <observation moodCode="EVN" classCode="OBS"> <templateId root= "16.840.1.398531.10.20.22.4.2" /> <id nullFlavor="NA" /> < code codeSystem="local" code="Res5" displayName="Calcium" /> < statusCode code="completed" /> <effectiveTime value="820256179774" /> <value unit="mg/dL" xsi:type="PQ" value="8.7" /> < referenceRange> <observationRange> <text>8.3-10.4</text > </observationRange> </referenceRange> </observation > </component> <component> <observation moodCode="EVN" classCode="OBS"> <templateId root="03.28.840.1.700006.10.22.4.2" /> <id nullFlavor="NA" /> <code codeSystem="local" code="Res21" displayName="Chloride" /> <statusCode code="completed" /> < effectiveTime value="266521767791" /> <value unit="mmol/L" xsi:type="PQ " value="99" /> <referenceRange> <observationRange> <text>95-114</text> </observationRange> </ referenceRange> </observation> </component> <component> <observation moodCode="EVN" classCode="OBS"> <templateId root= "03.28.840.1.206465.10.20.22.4.2" /> <id nullFlavor="NA" /> < code codeSystem="local" code="Res49" displayName="CO2" /> <statusCode code="completed" /> <effectiveTime value="365189079204" /> < value unit="mEq/L" xsi:type="PQ" value="30" /> <referenceRange> <observationRange> <text>22-33</text> </ observationRange> </referenceRange> </observation> </ component> <component> <observation moodCode="EVN" classCode="OBS"> <templateId root="216.840.1.477726.10..4.2" /> <id nullFlavor="NA" /> <code codeSystem="local" code="Aun680" displayName= "Creat" /> <statusCode code="completed" /> <effectiveTime value="134148068258" /> <value unit="mg/dL" xsi:type="PQ" value="1.27" /> <referenceRange> <observationRange> <text> 0.50-1.50</text> </observationRange> </referenceRange> </observation> </component> <component> <observation moodCode="EVN" classCode="OBS"> <templateId root= "16.840.1.595593.11.29.214.2" /> <id nullFlavor="NA" /> < code codeSystem="local" code="Nxp330" displayName="eGFR" /> < statusCode code="completed" /> <effectiveTime value="438354823021" /> <value unit="mL/min/1.73m2" xsi:type="PQ" value="42" /> < interpretationCode codeSystem="local" code="L" /> <referenceRange> <observationRange> <text>>59</text> </ observationRange> </referenceRange> </observation> </ component> <component> <observation moodCode="EVN" classCode="OBS"> <templateId root="216.840.1.559811.11.29.21.4.2" /> <id nullFlavor="NA" /> <code codeSystem="local" code="Res7" displayName= "Globulin" /> <statusCode code="completed" /> <effectiveTime value="114822402754" /> <value unit="g/dL" xsi:type="PQ" value="3.1" / > <referenceRange> <observationRange> <text>2.3 -3.5</text> </observationRange> </referenceRange> </ observation> </component> <component> <observation moodCode= "EVN" classCode="OBS"> <templateId root="03.28.840.1.508088.1022.4.2 " /> <id nullFlavor="NA" /> <code codeSystem="local" code= "Res60" displayName="Glucose" /> <statusCode code="completed" /> <effectiveTime value="032909431066" /> <value unit="mg/dL" xsi:type ="PQ" value="103" /> <referenceRange> <observationRange> <text>70-110</text> </observationRange> </ referenceRange> </observation> </component> <component> <observation moodCode="EVN" classCode="OBS"> <templateId root= "03.28.840.1.745656.11.29.21.4.2" /> <id nullFlavor="NA" /> < code codeSystem="local" code="Res52" displayName="Osmo" /> <statusCode code="completed" /> <effectiveTime value="326576356954" /> < value unit="" xsi:type="PQ" value="293" /> <referenceRange> <observationRange> <text>280-295</text> </ observationRange> </referenceRange> </observation> </ component> <component> <observation moodCode="EVN" classCode="OBS"> <templateId root="03.28.840.1.236735.10.2022.4.2" /> <id nullFlavor="NA" /> <code codeSystem="local" code="Res20" displayName= "Potassium" /> <statusCode code="completed" /> <effectiveTime value="909282777599" /> <value unit="mmol/L" xsi:type="PQ" value="3.5" /> <referenceRange> <observationRange> <text> 3.5-5.3</text> </observationRange> </referenceRange> </observation> </component> <component> <observation moodCode= "EVN" classCode="OBS"> <templateId root="840.1.640559.10.20.22.4.2 " /> <id nullFlavor="NA" /> <code codeSystem="local" code= "Res19" displayName="Sodium" /> <statusCode code="completed" /> <effectiveTime value="627498894727" /> <value unit="mmol/L" xsi:type ="PQ" value="140" /> <referenceRange> <observationRange> <text>134-148</text> </observationRange> </ referenceRange> </observation> </component> <component> <observation moodCode="EVN" classCode="OBS"> <templateId root= "840.1.797060.10.20.22.4.2" /> <id nullFlavor="NA" /> < code codeSystem="local" code="Res51" displayName="TBil" /> <statusCode code="completed" /> <effectiveTime value="823612893899" /> < value unit="mg/dL" xsi:type="PQ" value="1.0" /> <referenceRange> <observationRange> <text>0.2-1.2</text> </ observationRange> </referenceRange> </observation> </ component> <component> <observation moodCode="EVN" classCode="OBS"> <templateId root="03.28.830.1.556938.10.22.4.2" /> <id nullFlavor="NA" /> <code codeSystem="local" code="Res24" displayName= "TP" /> <statusCode code="completed" /> <effectiveTime value= "583719935951" /> <value unit="g/dL" xsi:type="PQ" value="6.9" /> <referenceRange> <observationRange> <text>6.0-8.3</ text> </observationRange> </referenceRange> </ observation> </component> </organizer> </entry> <entry> <organizer moodCode="EVN" classCode="BATTERY"> <templateId root= "16.840.1.706671.10..4.1" /> <id nullFlavor="NA" /> <code codeSystem="local" code="VCH699" displayName="Influenza" /> <statusCode code="completed" /> <component> <observation moodCode="EVN" classCode="OBS"> <templateId root="216.840.1.141723.10..22.4.2" /> <id nullFlavor="NA" /> <code codeSystem="local" code="Mnn253" displayName="Influenza" /> <statusCode code="completed" /> < effectiveTime value="565512726016" /> <value unit="" xsi:type="PQ" value="NEGATIVE FOR A and B" /> <referenceRange> < observationRange> <text>0.00-0.00</text> </ observationRange> </referenceRange> </observation> </ component> </organizer> </entry> <entry> <organizer moodCode="EVN" classCode="BATTERY"> <templateId root="216.840.1.656678.10.22.4.1" /> <id nullFlavor="NA" /> <code codeSystem="local" code="XFR4136" displayName="Blood Culture" /> <statusCode code="completed" /> < component> <observation moodCode="EVN" classCode="OBS"> < templateId root="03.28.840.1.151492.10.4.2" /> <id nullFlavor="NA " /> <code codeSystem="local" code="Qvb0736" displayName="PRELIM CULTURE RESULTS" /> <statusCode code="completed" /> < effectiveTime value="" /> <value unit="" xsi:type="PQ" value="Blood Culture Negative, No Growth Day 1" /> <referenceRange> <observationRange> <text /> </observationRange > </referenceRange> </observation> </component> < component> <observation moodCode="EVN" classCode="OBS"> < templateId root="03.28.840.1.989057.11.29.21.4.2" /> <id nullFlavor="NA " /> <code codeSystem="local" code="Wwx4235" displayName="FINAL CULTURE RESULTS" /> <statusCode code="completed" /> < effectiveTime value="686310653329" /> <value unit="" xsi:type="PQ" value="Blood Culture Negative, No Growth Day 5" /> <referenceRange> <observationRange> <text /> </observationRange > </referenceRange> </observation> </component> < component> <observation moodCode="EVN" classCode="OBS"> < templateId root="03.28.840.1.294892.11.29.21.4.2" /> <id nullFlavor="NA " /> <code codeSystem="local" code="Eaf7555" displayName="MEDIA PLATED " /> <statusCode code="completed" /> <effectiveTime value= "" /> <value unit="" xsi:type="PQ" value="Blood Culture Media Position C49" /> <referenceRange> <observationRange> <text /> </observationRange> </referenceRange> </observation> </component> <component> <observation moodCode="EVN" classCode="OBS"> <templateId root= "216.840.1.265078.11.29.21.4.2" /> <id nullFlavor="NA" /> < code codeSystem="local" code="Iph7506" displayName="CULTURE SOURCE" /> <statusCode code="completed" /> <effectiveTime value="" /> <value unit="" xsi:type="PQ" value="right [id number]\\" /> < referenceRange> <observationRange> <text /> < /observationRange> </referenceRange> </observation> </ component> </organizer> </entry> <entry> <organizer moodCode="EVN" classCode="BATTERY"> <templateId root="216.840.1.945647.11.29.21.4.1" /> <id nullFlavor="NA" /> <code codeSystem="local" code="TFK0590" displayName="Blood Culture" /> <statusCode code="completed" /> < component> <observation moodCode="EVN" classCode="OBS"> < templateId root="216.840.1.993576.10.4.2" /> <id nullFlavor="NA " /> <code codeSystem="local" code="Mda9244" displayName="PRELIM CULTURE RESULTS" /> <statusCode code="completed" /> < effectiveTime value="" /> <value unit="" xsi:type="PQ" value="Blood Culture Negative, No Growth Day 1" /> <referenceRange> <observationRange> <text /> </observationRange > </referenceRange> </observation> </component> < component> <observation moodCode="EVN" classCode="OBS"> < templateId root="16.840.1.562549.10..4.2" /> <id nullFlavor="NA " /> <code codeSystem="local" code="Fad3807" displayName="FINAL CULTURE RESULTS" /> <statusCode code="completed" /> < effectiveTime value="" /> <value unit="" xsi:type="PQ" value="Blood Culture Negative, No Growth Day 5" /> <referenceRange> <observationRange> <text /> </observationRange > </referenceRange> </observation> </component> < component> <observation moodCode="EVN" classCode="OBS"> < templateId root="03.28.840.1.862596.11.29.21.4.2" /> <id nullFlavor="NA " /> <code codeSystem="local" code="Nzi9247" displayName="MEDIA PLATED " /> <statusCode code="completed" /> <effectiveTime value= "" /> <value unit="" xsi:type="PQ" value="Blood Culture Media Position C44" /> <referenceRange> <observationRange> <text /> </observationRange> </referenceRange> </observation> </component> <component> <observation moodCode="EVN" classCode="OBS"> <templateId root= "03.28.840.1.504696.11.29.21.4.2" /> <id nullFlavor="NA" /> < code codeSystem="local" code="Euq0380" displayName="CULTURE SOURCE" /> <statusCode code="completed" /> <effectiveTime value="" /> <value unit="" xsi:type="PQ" value="left arm" /> < referenceRange> <observationRange> <text /> < /observationRange> </referenceRange> </observation> </ component> </organizer> </entry> <entry> <organizer moodCode="EVN" classCode="BATTERY"> <templateId root="16.840.1.760300.10..4.1" /> <id nullFlavor="NA" /> <code codeSystem="local" code="NCM3691" displayName="Protime " /> <statusCode code="completed" /> <component> <observation moodCode="EVN" classCode="OBS"> <templateId root= "16.840.1.049920...4.2" /> <id nullFlavor="NA" /> < code codeSystem="local" code="Dvg420" displayName="INR" /> <statusCode code="completed" /> <effectiveTime value="581350669512" /> < value unit="" xsi:type="PQ" value="3.3" /> <referenceRange> <observationRange> <text>1.0-4.0</text> </ observationRange> </referenceRange> </observation> </ component> <component> <observation moodCode="EVN" classCode="OBS"> <templateId root="03.28.840.1.792101.11.29.21.4.2" /> <id nullFlavor="NA" /> <code codeSystem="local" code="Ffp5894" displayName= "Protime" /> <statusCode code="completed" /> <effectiveTime value="563773918057" /> <value unit="Sec" xsi:type="PQ" value="40.4" / > <interpretationCode codeSystem="local" code="H" /> < referenceRange> <observationRange> <text>9.9-12.8</text > </observationRange> </referenceRange> </observation > </component> </organizer> </entry> <entry> <organizer moodCode= "EVN" classCode="BATTERY"> <templateId root="2.16.840.1.181872.10..22.4.1 " /> <id nullFlavor="NA" /> <code codeSystem="local" code="ZUN7440" displayName="MRSA Screen" /> <statusCode code="completed" /> < component> <observation moodCode="EVN" classCode="OBS"> < templateId root="2.16.840.1.039995.10..22.4.2" /> <id nullFlavor="NA " /> <code codeSystem="local" code="Bpx3859" displayName="FINAL CULTURE RESULTS" /> <statusCode code="completed" /> < effectiveTime value="" /> <value unit="" xsi:type="PQ" value="MRSA Negative Nasal Culture" /> <referenceRange> < observationRange> <text /> </observationRange> </referenceRange> </observation> </component> <component> <observation moodCode="EVN" classCode="OBS"> <templateId root= "2.16.840.1.032778.10..22.4.2" /> <id nullFlavor="NA" /> < code codeSystem="local" code="Xoz9911" displayName="MEDIA PLATED" /> < statusCode code="completed" /> <effectiveTime value="" /> <value unit="" xsi:type="PQ" value="Setup at 06:23 on 04/30/2016" /> <referenceRange> <observationRange> <text /> </observationRange> </referenceRange> </observation> </component> </organizer> </entry> <entry> <organizer moodCode="EVN" classCode="BATTERY"> <templateId root="2.16.840.1.066777.10..22.4.1" /> <id nullFlavor="NA" /> <code codeSystem="local" code="FSO7661" displayName="Protime " /> <statusCode code="completed" /> <component> <observation moodCode="EVN" classCode="OBS"> <templateId root= "2.16.840.1.069910.10...4.2" /> <id nullFlavor="NA" /> < code codeSystem="local" code="Lxl488" displayName="INR" /> <statusCode code="completed" /> <effectiveTime value="" /> < value unit="" xsi:type="PQ" value="2.3" /> <referenceRange> <observationRange> <text>1.0-4.0</text> </ observationRange> </referenceRange> </observation> </ component> <component> <observation moodCode="EVN" classCode="OBS"> <templateId root="2.16.840.1.262384.10...4.2" /> <id nullFlavor="NA" /> <code codeSystem="local" code="Jqm9219" displayName= "Protime" /> <statusCode code="completed" /> <effectiveTime value="453125986543" /> <value unit="Sec" xsi:type="PQ" value="28.4" / > <interpretationCode codeSystem="local" code="H" /> < referenceRange> <observationRange> <text>9.9-12.8</text > </observationRange> </referenceRange> </observation > </component> </organizer> </entry> <entry> <organizer moodCode= "EVN" classCode="BATTERY"> <templateId root="216.840.1.978712.10..22.4.1 " /> <id nullFlavor="NA" /> <code codeSystem="local" code="RHW5227" displayName="Protime " /> <statusCode code="completed" /> <component> <observation moodCode="EVN" classCode="OBS"> <templateId root= "216.840.1.458392.11.29.21.4.2" /> <id nullFlavor="NA" /> < code codeSystem="local" code="Pml282" displayName="INR" /> <statusCode code="completed" /> <effectiveTime value="" /> < value unit="" xsi:type="PQ" value="2.4" /> <referenceRange> <observationRange> <text>1.0-4.0</text> </ observationRange> </referenceRange> </observation> </ component> <component> <observation moodCode="EVN" classCode="OBS"> <templateId root="2.16.840.1.111621.11.29..4.2" /> <id nullFlavor="NA" /> <code codeSystem="local" code="Dvt2224" displayName= "Protime" /> <statusCode code="completed" /> <effectiveTime value="834349326304" /> <value unit="Sec" xsi:type="PQ" value="29.0" / > <interpretationCode codeSystem="local" code="H" /> < referenceRange> <observationRange> <text>9.9-12.8</text > </observationRange> </referenceRange> </observation > </component> </organizer> </entry> <entry> <organizer moodCode= "EVN" classCode="BATTERY"> <templateId root="216.840.1.958032.10..22.4.1 " /> <id nullFlavor="NA" /> <code codeSystem="local" code="ORD68" displayName="Urinalysis" /> <statusCode code="completed" /> <component > <observation moodCode="EVN" classCode="OBS"> <templateId root= "03.28.840.1.192765.11.29.21.4.2" /> <id nullFlavor="NA" /> < code codeSystem="local" code="Xml3957" displayName="Icotest" /> < statusCode code="completed" /> <effectiveTime value="862772916355" /> <value unit="" xsi:type="PQ" value="N/A" /> < interpretationCode codeSystem="local" code="A" /> <referenceRange> <observationRange> <text>Negative</text> </ observationRange> </referenceRange> </observation> </ component> <component> <observation moodCode="EVN" classCode="OBS"> <templateId root="03.28.840.1.216366.11.29.21.4.2" /> <id nullFlavor="NA" /> <code codeSystem="local" code="Ojk587" displayName= "Urine Volume" /> <statusCode code="completed" /> < effectiveTime value="158380743191" /> <value unit="" xsi:type="PQ" value="Urine Volume Sufficient (10mL)" /> <referenceRange> < observationRange> <text /> </observationRange> </referenceRange> </observation> </component> <component> <observation moodCode="EVN" classCode="OBS"> <templateId root= "16.840.1.711823.10..4.2" /> <id nullFlavor="NA" /> < code codeSystem="local" code="Wxg656" displayName="Urine-Appearance" /> <statusCode code="completed" /> <effectiveTime value="762039837342" / > <value unit="" xsi:type="PQ" value="Clear" /> < referenceRange> <observationRange> <text>Clear</text> </observationRange> </referenceRange> </observation> </component> <component> <observation moodCode="EVN" classCode= "OBS"> <templateId root="840.1.780751.10..22.4.2" /> < id nullFlavor="NA" /> <code codeSystem="local" code="Tnz409" displayName="Urine-Bacteria" /> <statusCode code="completed" /> <effectiveTime value="184248077884" /> <value unit="" xsi:type="PQ" value="Trace" /> <interpretationCode codeSystem="local" code="A" /> <referenceRange> <observationRange> <text> </text > </observationRange> </referenceRange> </observation > </component> <component> <observation moodCode="EVN" classCode="OBS"> <templateId root="840.1.982443.10..22.4.2" /> <id nullFlavor="NA" /> <code codeSystem="local" code="Fnv980" displayName="Urine-Bilirubin" /> <statusCode code="completed" /> <effectiveTime value="505277133308" /> <value unit="" xsi:type="PQ " value="Negative" /> <referenceRange> <observationRange> <text>Negative</text> </observationRange> </ referenceRange> </observation> </component> <component> <observation moodCode="EVN" classCode="OBS"> <templateId root= "03.28.830.1.106511.10..22.4.2" /> <id nullFlavor="NA" /> < code codeSystem="local" code="Tqb133" displayName="Urine-Blood" /> < statusCode code="completed" /> <effectiveTime value="434097910477" /> <value unit="" xsi:type="PQ" value="Trace-intact" /> < interpretationCode codeSystem="local" code="A" /> <referenceRange> <observationRange> <text>Negative</text> </ observationRange> </referenceRange> </observation> </ component> <component> <observation moodCode="EVN" classCode="OBS"> <templateId root="216.840.1.331748.10..4.2" /> <id nullFlavor="NA" /> <code codeSystem="local" code="Gwl776" displayName= "Urine-Color" /> <statusCode code="completed" /> < effectiveTime value="181921011450" /> <value unit="" xsi:type="PQ" value="Yellow" /> <referenceRange> <observationRange> <text>Colorless-Lt. Yellow</text> </observationRange> </referenceRange> </observation> </component> <component> <observation moodCode="EVN" classCode="OBS"> <templateId root= "16.840.1.278697.10..22.4.2" /> <id nullFlavor="NA" /> < code codeSystem="local" code="Suk777" displayName="Urine-Epithelial Cells" /> <statusCode code="completed" /> <effectiveTime value= "376757081626" /> <value unit="" xsi:type="PQ" value="0-5/HPF" /> <interpretationCode codeSystem="local" code="A" /> <referenceRange > <observationRange> <text> </text> </ observationRange> </referenceRange> </observation> </ component> <component> <observation moodCode="EVN" classCode="OBS"> <templateId root="216.840.1.670730.10..4.2" /> <id nullFlavor="NA" /> <code codeSystem="local" code="Nss215" displayName= "Urine-Glucose" /> <statusCode code="completed" /> < effectiveTime value="976509407753" /> <value unit="" xsi:type="PQ" value="Negative" /> <referenceRange> <observationRange> <text>Negative</text> </observationRange> </ referenceRange> </observation> </component> <component> <observation moodCode="EVN" classCode="OBS"> <templateId root= "2.840.1.893839.11.29.21.4.2" /> <id nullFlavor="NA" /> < code codeSystem="local" code="Gpd167" displayName="Urine-Ketones" /> < statusCode code="completed" /> <effectiveTime value="353721856514" /> <value unit="" xsi:type="PQ" value="Negative" /> < referenceRange> <observationRange> <text>Negative</text > </observationRange> </referenceRange> </observation > </component> <component> <observation moodCode="EVN" classCode="OBS"> <templateId root="16.840.1.929392.11.29.21.4.2" /> <id nullFlavor="NA" /> <code codeSystem="local" code="Bup145" displayName="Urine-Leukocytes" /> <statusCode code="completed" /> <effectiveTime value="405378087622" /> <value unit="" xsi:type="PQ " value="Negative" /> <referenceRange> <observationRange> <text>Negative</text> </observationRange> </ referenceRange> </observation> </component> <component> <observation moodCode="EVN" classCode="OBS"> <templateId root= "03.28.840.1.179327.10...4.2" /> <id nullFlavor="NA" /> < code codeSystem="local" code="Nta346" displayName="Urine-Nitrite" /> < statusCode code="completed" /> <effectiveTime value="740863120658" /> <value unit="" xsi:type="PQ" value="Negative" /> < referenceRange> <observationRange> <text>Negative</text > </observationRange> </referenceRange> </observation > </component> <component> <observation moodCode="EVN" classCode="OBS"> <templateId root="840.1.113995.11.29.21.4.2" /> <id nullFlavor="NA" /> <code codeSystem="local" code="Vfl800" displayName="Urine-Other" /> <statusCode code="completed" /> < effectiveTime value="386029246141" /> <value unit="" xsi:type="PQ" value="Culture to follow" /> <interpretationCode codeSystem="local" code="A" /> <referenceRange> <observationRange> <text> </text> </observationRange> </referenceRange> </observation> </component> <component> <observation moodCode="EVN" classCode="OBS"> <templateId root= "03.28.840.1.153712.10..4.2" /> <id nullFlavor="NA" /> < code codeSystem="local" code="Tda513" displayName="Urine-pH" /> < statusCode code="completed" /> <effectiveTime value="937969127417" /> <value unit="" xsi:type="PQ" value="7.0" /> <referenceRange> <observationRange> <text>5-8.5</text> </ observationRange> </referenceRange> </observation> </ component> <component> <observation moodCode="EVN" classCode="OBS"> <templateId root="216.840.1.504745.10.4.2" /> <id nullFlavor="NA" /> <code codeSystem="local" code="Bow622" displayName= "Urine-Protein" /> <statusCode code="completed" /> < effectiveTime value="464364663573" /> <value unit="" xsi:type="PQ" value="Negative" /> <referenceRange> <observationRange> <text>Negative</text> </observationRange> </ referenceRange> </observation> </component> <component> <observation moodCode="EVN" classCode="OBS"> <templateId root= "216.840.1.626498.11.29.21.4.2" /> <id nullFlavor="NA" /> < code codeSystem="local" code="Twe016" displayName="Urine-RBC" /> < statusCode code="completed" /> <effectiveTime value="821836711203" /> <value unit="" xsi:type="PQ" value="0-2/HPF" /> < interpretationCode codeSystem="local" code="A" /> <referenceRange> <observationRange> <text> </text> </ observationRange> </referenceRange> </observation> </ component> <component> <observation moodCode="EVN" classCode="OBS"> <templateId root="216.840.1.034723.104.2" /> <id nullFlavor="NA" /> <code codeSystem="local" code="Atb253" displayName= "Urine-Specific [place]" /> <statusCode code="completed" /> < effectiveTime value="998748730088" /> <value unit="" xsi:type="PQ" value="1.010" /> <referenceRange> <observationRange> <text>1.000-1.030</text> </observationRange> </ referenceRange> </observation> </component> <component> <observation moodCode="EVN" classCode="OBS"> <templateId root= "2.16.840.1.163653.11.29.214.2" /> <id nullFlavor="NA" /> < code codeSystem="local" code="Bml946" displayName="Urine-WBC" /> < statusCode code="completed" /> <effectiveTime value="038208859866" /> <value unit="" xsi:type="PQ" value="Few/HPF" /> < interpretationCode codeSystem="local" code="A" /> <referenceRange> <observationRange> <text> </text> </ observationRange> </referenceRange> </observation> </ component> <component> <observation moodCode="EVN" classCode="OBS"> <templateId root="2.16.840.1.180889.104.2" /> <id nullFlavor="NA" /> <code codeSystem="local" code="Rfj354" displayName= "Urobilinogen" /> <statusCode code="completed" /> < effectiveTime value="[id number]" /> <value unit="" xsi:type="PQ" value="0.2 E.U./dL" /> <interpretationCode codeSystem="local" code="A" /> <referenceRange> <observationRange> <text> 0.2-1.0</text> </observationRange> </referenceRange> </observation> </component> </organizer> </entry> <entry> < organizer moodCode="EVN" classCode="BATTERY"> <templateId root= "2.16.840.1.576122.10..22.4.1" /> <id nullFlavor="NA" /> <code codeSystem="local" code="HLN5790" displayName="Urine Culture" /> < statusCode code="completed" /> <component> <observation moodCode= "EVN" classCode="OBS"> <templateId root="2.16.840.1.246863.10...4.2 " /> <id nullFlavor="NA" /> <code codeSystem="local" code= "Zyu9553" displayName="PRELIM CULTURE RESULTS" /> <statusCode code= "completed" /> <effectiveTime value="368901284163" /> <value unit="" xsi:type="PQ" value="No Growth 24 hours" /> <referenceRange> <observationRange> <text /> </observationRange > </referenceRange> </observation> </component> < component> <observation moodCode="EVN" classCode="OBS"> < templateId root="2.16.840.1.056579.10...4.2" /> <id nullFlavor="NA " /> <code codeSystem="local" code="Rxr6635" displayName="FINAL CULTURE RESULTS" /> <statusCode code="completed" /> < effectiveTime value="537522068163" /> <value unit="" xsi:type="PQ" value="No Growth 48 [id number] Further Workup done" /> < referenceRange> <observationRange> <text /> < /observationRange> </referenceRange> </observation> </ component> <component> <observation moodCode="EVN" classCode="OBS"> <templateId root="03.28.840.1.191712.10..22.4.2" /> <id nullFlavor="NA" /> <code codeSystem="local" code="Dvi7224" displayName= "MEDIA PLATED" /> <statusCode code="completed" /> < effectiveTime value="612324088223" /> <value unit="" xsi:type="PQ" value="Setup at 17:25 on 05/02/2016" /> <referenceRange> < observationRange> <text /> </observationRange> </referenceRange> </observation> </component> <component> <observation moodCode="EVN" classCode="OBS"> <templateId root= "840.1.010469.11.29.21.4.2" /> <id nullFlavor="NA" /> < code codeSystem="local" code="Dyl1132" displayName="CULTURE SOURCE" /> <statusCode code="completed" /> <effectiveTime value="499336459521" /> <value unit="" xsi:type="PQ" value="void" /> <referenceRange > <observationRange> <text /> </ observationRange> </referenceRange> </observation> </ component> </organizer> </entry> <entry> <organizer moodCode="EVN" classCode="BATTERY"> <templateId root="03.28.840.1.130357.10..22.4.1" /> <id nullFlavor="NA" /> <code codeSystem="local" code="ORD3" displayName="Comprehensive Metabolic Panel" /> <statusCode code="completed " /> <component> <observation moodCode="EVN" classCode="OBS"> <templateId root="03.28.840.1.456043.1022.4.2" /> <id nullFlavor ="NA" /> <code codeSystem="local" code="Res44" displayName="Albumin" / > <statusCode code="completed" /> <effectiveTime value= "526188597903" /> <value unit="g/dL" xsi:type="PQ" value="3.5" /> <interpretationCode codeSystem="local" code="L" /> <referenceRange > <observationRange> <text>3.6-5.1</text> </ observationRange> </referenceRange> </observation> </ component> <component> <observation moodCode="EVN" classCode="OBS"> <templateId root="2.16.840.1.110496.10...4.2" /> <id nullFlavor="NA" /> <code codeSystem="local" code="Res45" displayName= "ALP" /> <statusCode code="completed" /> <effectiveTime value= "918125239463" /> <value unit="U/L" xsi:type="PQ" value="88" /> <referenceRange> <observationRange> <text>35-130</ text> </observationRange> </referenceRange> </ observation> </component> <component> <observation moodCode= "EVN" classCode="OBS"> <templateId root="2.16.840.1.581404.10...4.2 " /> <id nullFlavor="NA" /> <code codeSystem="local" code= "Res46" displayName="ALT" /> <statusCode code="completed" /> < effectiveTime value="186554735347" /> <value unit="U/L" xsi:type="PQ" value="19" /> <referenceRange> <observationRange> <text>6-45</text> </observationRange> </referenceRange> </observation> </component> <component> <observation moodCode="EVN" classCode="OBS"> <templateId root= "216.840.1.049594.10..22.4.2" /> <id nullFlavor="NA" /> < code codeSystem="local" code="Res61" displayName="Anion Gap" /> < statusCode code="completed" /> <effectiveTime value="847957033424" /> <value unit="" xsi:type="PQ" value="14" /> <referenceRange> <observationRange> <text>6-14</text> </ observationRange> </referenceRange> </observation> </ component> <component> <observation moodCode="EVN" classCode="OBS"> <templateId root="16.840.1.365052.10...4.2" /> <id nullFlavor="NA" /> <code codeSystem="local" code="Res48" displayName= "AST" /> <statusCode code="completed" /> <effectiveTime value= "082553390338" /> <value unit="U/L" xsi:type="PQ" value="16" /> <referenceRange> <observationRange> <text>2-40</text > </observationRange> </referenceRange> </observation > </component> <component> <observation moodCode="EVN" classCode="OBS"> <templateId root="03.28.840.1.023209.10..22.4.2" /> <id nullFlavor="NA" /> <code codeSystem="local" code="Res26" displayName="BUN" /> <statusCode code="completed" /> < effectiveTime value="927716365387" /> <value unit="mg/dL" xsi:type="PQ " value="16" /> <referenceRange> <observationRange> <text>5-25</text> </observationRange> </referenceRange > </observation> </component> <component> <observation moodCode="EVN" classCode="OBS"> <templateId root= "216.840.1.441844.1022.4.2" /> <id nullFlavor="NA" /> < code codeSystem="local" code="Res5" displayName="Calcium" /> < statusCode code="completed" /> <effectiveTime value="" /> <value unit="mg/dL" xsi:type="PQ" value="9.0" /> < referenceRange> <observationRange> <text>8.3-10.4</text > </observationRange> </referenceRange> </observation > </component> <component> <observation moodCode="EVN" classCode="OBS"> <templateId root="03.28.840.1.855094.11.29.21.4.2" /> <id nullFlavor="NA" /> <code codeSystem="local" code="Res21" displayName="Chloride" /> <statusCode code="completed" /> < effectiveTime value="" /> <value unit="mmol/L" xsi:type="PQ " value="102" /> <referenceRange> <observationRange> <text>95-114</text> </observationRange> </ referenceRange> </observation> </component> <component> <observation moodCode="EVN" classCode="OBS"> <templateId root= "16.840.1.328917.10.22.4.2" /> <id nullFlavor="NA" /> < code codeSystem="local" code="Res49" displayName="CO2" /> <statusCode code="completed" /> <effectiveTime value="605157392337" /> < value unit="mEq/L" xsi:type="PQ" value="31" /> <referenceRange> <observationRange> <text>22-33</text> </ observationRange> </referenceRange> </observation> </ component> <component> <observation moodCode="EVN" classCode="OBS"> <templateId root="16.840.1.449014.10.20.22.4.2" /> <id nullFlavor="NA" /> <code codeSystem="local" code="Rlm948" displayName= "Creat" /> <statusCode code="completed" /> <effectiveTime value="346704959080" /> <value unit="mg/dL" xsi:type="PQ" value="0.77" /> <referenceRange> <observationRange> <text> 0.50-1.50</text> </observationRange> </referenceRange> </observation> </component> <component> <observation moodCode="EVN" classCode="OBS"> <templateId root= "840.1.612362.10...4.2" /> <id nullFlavor="NA" /> < code codeSystem="local" code="Xqp622" displayName="eGFR" /> < statusCode code="completed" /> <effectiveTime value="396039356603" /> <value unit="mL/min/1.73m2" xsi:type="PQ" value="75" /> < referenceRange> <observationRange> <text>>59</text> </observationRange> </referenceRange> </observation> </component> <component> <observation moodCode="EVN" classCode ="OBS"> <templateId root="03.28.840.1.996888.10.20.22.4.2" /> < id nullFlavor="NA" /> <code codeSystem="local" code="Res7" displayName= "Globulin" /> <statusCode code="completed" /> <effectiveTime value="344345974519" /> <value unit="g/dL" xsi:type="PQ" value="2.8" / > <referenceRange> <observationRange> <text>2.3 -3.5</text> </observationRange> </referenceRange> </ observation> </component> <component> <observation moodCode= "EVN" classCode="OBS"> <templateId root="16.840.1.545317.10.4.2 " /> <id nullFlavor="NA" /> <code codeSystem="local" code= "Res60" displayName="Glucose" /> <statusCode code="completed" /> <effectiveTime value="081135557484" /> <value unit="mg/dL" xsi:type ="PQ" value="84" /> <referenceRange> <observationRange> <text>70-110</text> </observationRange> </ referenceRange> </observation> </component> <component> <observation moodCode="EVN" classCode="OBS"> <templateId root= "16.840.1.242575.11.29.21.4.2" /> <id nullFlavor="NA" /> < code codeSystem="local" code="Res52" displayName="Osmo" /> <statusCode code="completed" /> <effectiveTime value="740106116572" /> < value unit="" xsi:type="PQ" value="296" /> <interpretationCode codeSystem="local" code="H" /> <referenceRange> < observationRange> <text>280-295</text> </ observationRange> </referenceRange> </observation> </ component> <component> <observation moodCode="EVN" classCode="OBS"> <templateId root="216.840.1.042643.11.29.21.4.2" /> <id nullFlavor="NA" /> <code codeSystem="local" code="Res20" displayName= "Potassium" /> <statusCode code="completed" /> <effectiveTime value="666836332727" /> <value unit="mmol/L" xsi:type="PQ" value="4.1" /> <referenceRange> <observationRange> <text> 3.5-5.3</text> </observationRange> </referenceRange> </observation> </component> <component> <observation moodCode= "EVN" classCode="OBS"> <templateId root="216.840.1.686237.11.29.21.4.2 " /> <id nullFlavor="NA" /> <code codeSystem="local" code= "Res19" displayName="Sodium" /> <statusCode code="completed" /> <effectiveTime value="569040866925" /> <value unit="mmol/L" xsi:type ="PQ" value="143" /> <referenceRange> <observationRange> <text>134-148</text> </observationRange> </ referenceRange> </observation> </component> <component> <observation moodCode="EVN" classCode="OBS"> <templateId root= "2.16.840.1.730891.11.29.21.4.2" /> <id nullFlavor="NA" /> < code codeSystem="local" code="Res51" displayName="TBil" /> <statusCode code="completed" /> <effectiveTime value="377053665825" /> < value unit="mg/dL" xsi:type="PQ" value="0.4" /> <referenceRange> <observationRange> <text>0.2-1.2</text> </ observationRange> </referenceRange> </observation> </ component> <component> <observation moodCode="EVN" classCode="OBS"> <templateId root="2.16.840.1.609455.10.20.22.4.2" /> <id nullFlavor="NA" /> <code codeSystem="local" code="Res24" displayName= "TP" /> <statusCode code="completed" /> <effectiveTime value= "316855964966" /> <value unit="g/dL" xsi:type="PQ" value="6.3" /> <referenceRange> <observationRange> <text>6.0-8.3</ text> </observationRange> </referenceRange> </ observation> </component> </organizer> </entry> <entry> <organizer moodCode="EVN" classCode="BATTERY"> <templateId root= "2.16.840.1.750398.10.20.22.4.1" /> <id nullFlavor="NA" /> <code codeSystem="local" code="BVH9366" displayName="C-Reactive Protein" /> < statusCode code="completed" /> <component> <observation moodCode= "EVN" classCode="OBS"> <templateId root="2.16.840.1.802449.10.20.22.4.2 " /> <id nullFlavor="NA" /> <code codeSystem="local" code= "Gsi0317" displayName="C-Reactive Protein" /> <statusCode code= "completed" /> <effectiveTime value="655371841670" /> <value unit="mg/dL" xsi:type="PQ" value="14.10" /> <interpretationCode codeSystem="local" code="H" /> <referenceRange> < observationRange> <text>0.00-0.50</text> </ observationRange> </referenceRange> </observation> </ component> </organizer> </entry> <entry> <organizer moodCode="EVN" classCode="BATTERY"> <templateId root="216.840.1.912978.10..4.1" /> <id nullFlavor="NA" /> <code codeSystem="local" code="936779" displayName="ESTRELLITA w/Reflex " /> <statusCode code="completed" /> < component> <observation moodCode="EVN" classCode="OBS"> < templateId root="03.28.840.1.026702.11.29.21.4.2" /> <id nullFlavor="NA " /> <code codeSystem="local" code="452970" displayName="ESTRELLITA DIRECT" / > <statusCode code="completed" /> <effectiveTime value= "240090701364" /> <value unit="" xsi:type="PQ" value="NEGATIVE" /> <referenceRange> <observationRange> <text>NEGATIVE </text> </observationRange> </referenceRange> </ observation> </component> </organizer> </entry> <entry> <organizer moodCode="EVN" classCode="BATTERY"> <templateId root= "03.28.840.1.569696.11.29.21.4.1" /> <id nullFlavor="NA" /> <code codeSystem="local" code="ORD4" displayName="BMP" /> <statusCode code= "completed" /> <component> <observation moodCode="EVN" classCode= "OBS"> <templateId root="16.840.1.871988.11.29.21.4.2" /> < id nullFlavor="NA" /> <code codeSystem="local" code="Res61" displayName ="Anion Gap" /> <statusCode code="completed" /> < effectiveTime value="939416664810" /> <value unit="" xsi:type="PQ" value="17" /> <interpretationCode codeSystem="local" code="H" /> <referenceRange> <observationRange> <text>6-14</text > </observationRange> </referenceRange> </observation > </component> <component> <observation moodCode="EVN" classCode="OBS"> <templateId root="03.28.840.1.321752.10.20.22.4.2" /> <id nullFlavor="NA" /> <code codeSystem="local" code="Res26" displayName="BUN" /> <statusCode code="completed" /> < effectiveTime value="" /> <value unit="mg/dL" xsi:type="PQ " value="16" /> <referenceRange> <observationRange> <text>5-25</text> </observationRange> </referenceRange > </observation> </component> <component> <observation moodCode="EVN" classCode="OBS"> <templateId root= "840.1.865616.10.22.4.2" /> <id nullFlavor="NA" /> < code codeSystem="local" code="Res5" displayName="Calcium" /> < statusCode code="completed" /> <effectiveTime value="" /> <value unit="mg/dL" xsi:type="PQ" value="8.9" /> < referenceRange> <observationRange> <text>8.3-10.4</text > </observationRange> </referenceRange> </observation > </component> <component> <observation moodCode="EVN" classCode="OBS"> <templateId root="03.28.840.1.195615.10.20.22.4.2" /> <id nullFlavor="NA" /> <code codeSystem="local" code="Res21" displayName="Chloride" /> <statusCode code="completed" /> < effectiveTime value="" /> <value unit="mmol/L" xsi:type="PQ " value="100" /> <referenceRange> <observationRange> <text>95-114</text> </observationRange> </ referenceRange> </observation> </component> <component> <observation moodCode="EVN" classCode="OBS"> <templateId root= "216.840.1.862223.10...4.2" /> <id nullFlavor="NA" /> < code codeSystem="local" code="Res49" displayName="CO2" /> <statusCode code="completed" /> <effectiveTime value="" /> < value unit="mEq/L" xsi:type="PQ" value="28" /> <referenceRange> <observationRange> <text>22-33</text> </ observationRange> </referenceRange> </observation> </ component> <component> <observation moodCode="EVN" classCode="OBS"> <templateId root="16.840.1.025116.10..4.2" /> <id nullFlavor="NA" /> <code codeSystem="local" code="Ejw345" displayName= "Creat" /> <statusCode code="completed" /> <effectiveTime value="" /> <value unit="mg/dL" xsi:type="PQ" value="0.72" /> <referenceRange> <observationRange> <text> 0.50-1.50</text> </observationRange> </referenceRange> </observation> </component> <component> <observation moodCode="EVN" classCode="OBS"> <templateId root= "216.840.1.269869....4.2" /> <id nullFlavor="NA" /> < code codeSystem="local" code="Cva524" displayName="eGFR" /> < statusCode code="completed" /> <effectiveTime value="" /> <value unit="mL/min/1.73m2" xsi:type="PQ" value="81" /> < referenceRange> <observationRange> <text>>59</text> </observationRange> </referenceRange> </observation> </component> <component> <observation moodCode="EVN" classCode ="OBS"> <templateId root="216.840.1.921253.10..4.2" /> < id nullFlavor="NA" /> <code codeSystem="local" code="Res60" displayName ="Glucose" /> <statusCode code="completed" /> <effectiveTime value="" /> <value unit="mg/dL" xsi:type="PQ" value="89" / > <referenceRange> <observationRange> <text>70- 110</text> </observationRange> </referenceRange> </ observation> </component> <component> <observation moodCode= "EVN" classCode="OBS"> <templateId root="2.16.840.1.953889.10...4.2 " /> <id nullFlavor="NA" /> <code codeSystem="local" code= "Res52" displayName="Osmo" /> <statusCode code="completed" /> <effectiveTime value="" /> <value unit="" xsi:type="PQ" value="292" /> <referenceRange> <observationRange> <text>280-295</text> </observationRange> </ referenceRange> </observation> </component> <component> <observation moodCode="EVN" classCode="OBS"> <templateId root= "03.28.840.1.903845.10.22.4.2" /> <id nullFlavor="NA" /> < code codeSystem="local" code="Res20" displayName="Potassium" /> < statusCode code="completed" /> <effectiveTime value="299760137446" /> <value unit="mmol/L" xsi:type="PQ" value="4.4" /> < referenceRange> <observationRange> <text>3.5-5.3</text> </observationRange> </referenceRange> </observation > </component> <component> <observation moodCode="EVN" classCode="OBS"> <templateId root="840.1.083875.11.29.21.4.2" /> <id nullFlavor="NA" /> <code codeSystem="local" code="Res19" displayName="Sodium" /> <statusCode code="completed" /> < effectiveTime value="338665291490" /> <value unit="mmol/L" xsi:type="PQ " value="141" /> <referenceRange> <observationRange> <text>134-148</text> </observationRange> </ referenceRange> </observation> </component> </organizer> </entry > <entry> <organizer moodCode="EVN" classCode="BATTERY"> <templateId root="840.1.015853.22.4.1" /> <id nullFlavor="NA" /> <code codeSystem="local" code="QNN4900" displayName="Protime " /> <statusCode code="completed" /> <component> <observation moodCode="EVN" classCode="OBS"> <templateId root="840.1.535225.10.22.4.2" /> <id nullFlavor="NA" /> <code codeSystem="local" code="Mtg772" displayName="INR" /> <statusCode code="completed" /> < effectiveTime value="675631646408" /> <value unit="" xsi:type="PQ" value="1.9" /> <referenceRange> <observationRange> <text>1.0-4.0</text> </observationRange> </ referenceRange> </observation> </component> <component> <observation moodCode="EVN" classCode="OBS"> <templateId root= "840.1.835051.10..4.2" /> <id nullFlavor="NA" /> < code codeSystem="local" code="Rps8847" displayName="Protime" /> < statusCode code="completed" /> <effectiveTime value="016126684535" /> <value unit="Sec" xsi:type="PQ" value="22.9" /> < interpretationCode codeSystem="local" code="H" /> <referenceRange> <observationRange> <text>9.9-12.8</text> </ observationRange> </referenceRange> </observation> </ component> </organizer> </entry> <entry> <organizer moodCode="EVN" classCode="BATTERY"> <templateId root="840.1.144478.22.4.1" /> <id nullFlavor="NA" /> <code codeSystem="local" code="DLJ3896" displayName="Protime " /> <statusCode code="completed" /> <component> <observation moodCode="EVN" classCode="OBS"> <templateId root= "03.28.840.1.092425.10.2022.4.2" /> <id nullFlavor="NA" /> < code codeSystem="local" code="Sfp143" displayName="INR" /> <statusCode code="completed" /> <effectiveTime value="721259954809" /> < value unit="" xsi:type="PQ" value="2.0" /> <referenceRange> <observationRange> <text>1.0-4.0</text> </ observationRange> </referenceRange> </observation> </ component> <component> <observation moodCode="EVN" classCode="OBS"> <templateId root="840.1.686147.11.29.21.4.2" /> <id nullFlavor="NA" /> <code codeSystem="local" code="Vas7127" displayName= "Protime" /> <statusCode code="completed" /> <effectiveTime value="294212889662" /> <value unit="Sec" xsi:type="PQ" value="24.0" / > <interpretationCode codeSystem="local" code="H" /> < referenceRange> <observationRange> <text>9.9-12.8</text > </observationRange> </referenceRange> </observation > </component> </organizer> </entry> <entry> <organizer moodCode= "EVN" classCode="BATTERY"> <templateId root="840.1.300023.11.29.21.4.1 " /> <id nullFlavor="NA" /> <code codeSystem="local" code="ORD4" displayName="BMP" /> <statusCode code="completed" /> <component> <observation moodCode="EVN" classCode="OBS"> <templateId root= "840.1.375627.22.4.2" /> <id nullFlavor="NA" /> < code codeSystem="local" code="Res61" displayName="Anion Gap" /> < statusCode code="completed" /> <effectiveTime value="267819946545" /> <value unit="" xsi:type="PQ" value="16" /> < interpretationCode codeSystem="local" code="H" /> <referenceRange> <observationRange> <text>6-14</text> </ observationRange> </referenceRange> </observation> </ component> <component> <observation moodCode="EVN" classCode="OBS"> <templateId root="16.840.1.527369.10.22.4.2" /> <id nullFlavor="NA" /> <code codeSystem="local" code="Res26" displayName= "BUN" /> <statusCode code="completed" /> <effectiveTime value= "858973122025" /> <value unit="mg/dL" xsi:type="PQ" value="12" /> <referenceRange> <observationRange> <text>5-25</ text> </observationRange> </referenceRange> </ observation> </component> <component> <observation moodCode= "EVN" classCode="OBS"> <templateId root="03.28.840.1.880439.10..4.2 " /> <id nullFlavor="NA" /> <code codeSystem="local" code= "Res5" displayName="Calcium" /> <statusCode code="completed" /> <effectiveTime value="241277977385" /> <value unit="mg/dL" xsi:type= "PQ" value="8.9" /> <referenceRange> <observationRange> <text>8.3-10.4</text> </observationRange> </ referenceRange> </observation> </component> <component> <observation moodCode="EVN" classCode="OBS"> <templateId root= "03.28.840.1.725669.11.29.21.4.2" /> <id nullFlavor="NA" /> < code codeSystem="local" code="Res21" displayName="Chloride" /> < statusCode code="completed" /> <effectiveTime value="" /> <value unit="mmol/L" xsi:type="PQ" value="105" /> < referenceRange> <observationRange> <text>95-114</text> </observationRange> </referenceRange> </observation> </component> <component> <observation moodCode="EVN" classCode ="OBS"> <templateId root="2.16.840.1.623135.11.29.21.4.2" /> < id nullFlavor="NA" /> <code codeSystem="local" code="Res49" displayName ="CO2" /> <statusCode code="completed" /> <effectiveTime value ="" /> <value unit="mEq/L" xsi:type="PQ" value="27" /> <referenceRange> <observationRange> <text>22-33</ text> </observationRange> </referenceRange> </ observation> </component> <component> <observation moodCode= "EVN" classCode="OBS"> <templateId root="2.16.840.1.910503.10..4.2 " /> <id nullFlavor="NA" /> <code codeSystem="local" code= "Ffc378" displayName="Creat" /> <statusCode code="completed" /> <effectiveTime value="591478884942" /> <value unit="mg/dL" xsi:type= "PQ" value="0.71" /> <referenceRange> <observationRange> <text>0.50-1.50</text> </observationRange> </ referenceRange> </observation> </component> <component> <observation moodCode="EVN" classCode="OBS"> <templateId root= "03.28.840.1.882259.10.20.22.4.2" /> <id nullFlavor="NA" /> < code codeSystem="local" code="Shx496" displayName="eGFR" /> < statusCode code="completed" /> <effectiveTime value="" /> <value unit="mL/min/1.73m2" xsi:type="PQ" value="82" /> < referenceRange> <observationRange> <text>>59</text> </observationRange> </referenceRange> </observation> </component> <component> <observation moodCode="EVN" classCode ="OBS"> <templateId root="840.1.229856.1022.4.2" /> < id nullFlavor="NA" /> <code codeSystem="local" code="Res60" displayName ="Glucose" /> <statusCode code="completed" /> <effectiveTime value="" /> <value unit="mg/dL" xsi:type="PQ" value="84" / > <referenceRange> <observationRange> <text>70- 110</text> </observationRange> </referenceRange> </ observation> </component> <component> <observation moodCode= "EVN" classCode="OBS"> <templateId root="03.28.840.1.628672.10.20.22.4.2 " /> <id nullFlavor="NA" /> <code codeSystem="local" code= "Res52" displayName="Osmo" /> <statusCode code="completed" /> <effectiveTime value="" /> <value unit="" xsi:type="PQ" value="296" /> <interpretationCode codeSystem="local" code="H" /> <referenceRange> <observationRange> <text>280-295</ text> </observationRange> </referenceRange> </ observation> </component> <component> <observation moodCode= "EVN" classCode="OBS"> <templateId root="16.840.1.238074.10..22.4.2 " /> <id nullFlavor="NA" /> <code codeSystem="local" code= "Res20" displayName="Potassium" /> <statusCode code="completed" /> <effectiveTime value="269166864350" /> <value unit="mmol/L" xsi: type="PQ" value="4.0" /> <referenceRange> <observationRange > <text>3.5-5.3</text> </observationRange> </ referenceRange> </observation> </component> <component> <observation moodCode="EVN" classCode="OBS"> <templateId root= "16.840.1.168088.10..4.2" /> <id nullFlavor="NA" /> < code codeSystem="local" code="Res19" displayName="Sodium" /> < statusCode code="completed" /> <effectiveTime value="970610815278" /> <value unit="mmol/L" xsi:type="PQ" value="144" /> < referenceRange> <observationRange> <text>134-148</text> </observationRange> </referenceRange> </observation > </component> </organizer> </entry> <entry> <organizer moodCode= "EVN" classCode="BATTERY"> <templateId root="216.840.1.201471.10..4.1 " /> <id nullFlavor="NA" /> <code codeSystem="local" code="MBN4597" displayName="Protime " /> <statusCode code="completed" /> <component> <observation moodCode="EVN" classCode="OBS"> <templateId root= "216.840.1.380030.10...4.2" /> <id nullFlavor="NA" /> < code codeSystem="local" code="Flh383" displayName="INR" /> <statusCode code="completed" /> <effectiveTime value="445748137373" /> < value unit="" xsi:type="PQ" value="2.3" /> <referenceRange> <observationRange> <text>1.0-4.0</text> </ observationRange> </referenceRange> </observation> </ component> <component> <observation moodCode="EVN" classCode="OBS"> <templateId root="16.840.1.758284.10..4.2" /> <id nullFlavor="NA" /> <code codeSystem="local" code="Ojg4472" displayName= "Protime" /> <statusCode code="completed" /> <effectiveTime value="930791320911" /> <value unit="Sec" xsi:type="PQ" value="27.6" / > <interpretationCode codeSystem="local" code="H" /> < referenceRange> <observationRange> <text>9.9-12.8</text > </observationRange> </referenceRange> </observation > </component> </organizer> </entry> <entry> <organizer moodCode= "EVN" classCode="BATTERY"> <templateId root="216.840.1.223615.10..4.1 " /> <id nullFlavor="NA" /> <code codeSystem="local" code="ORD87" displayName="EKG" /> <statusCode code="completed" /> <component> <observation moodCode="EVN" classCode="OBS"> <templateId root= "16.840.1.967210.10..22.4.2" /> <id nullFlavor="NA" /> < code codeSystem="local" code="Zzi9381" displayName="EKG" /> < statusCode code="completed" /> <effectiveTime value="429888881145" /> <value unit="" xsi:type="PQ" value="Complete" /> < referenceRange> <observationRange> <text /> < /observationRange> </referenceRange> </observation> </ component> </organizer> </entry> <entry> <organizer moodCode="EVN" classCode="BATTERY"> <templateId root="16.840.1.905841.10..22.4.1" /> <id nullFlavor="NA" /> <code codeSystem="local" code="CAF4485" displayName="PTT " /> <statusCode code="completed" /> <component> <observation moodCode="EVN" classCode="OBS"> <templateId root= "216.840.1.599671.10..22.4.2" /> <id nullFlavor="NA" /> < code codeSystem="local" code="Vno2497" displayName="PTT" /> < statusCode code="completed" /> <effectiveTime value="788811765907" /> <value unit="Sec" xsi:type="PQ" value="23.3" /> < interpretationCode codeSystem="local" code="L" /> <referenceRange> <observationRange> <text>26.0-38.0</text> </ observationRange> </referenceRange> </observation> </ component> </organizer> </entry> <entry> <organizer moodCode="EVN" classCode="BATTERY"> <templateId root="216.840.1.669811.10..22.4.1" /> <id nullFlavor="NA" /> <code codeSystem="local" code="HEV2874" displayName="Urine Culture" /> <statusCode code="completed" /> < component> <observation moodCode="EVN" classCode="OBS"> < templateId root="16.840.1.034590....4.2" /> <id nullFlavor="NA " /> <code codeSystem="local" code="Qbk8112" displayName="PRELIM CULTURE RESULTS" /> <statusCode code="completed" /> < effectiveTime value="854773326969" /> <value unit="" xsi:type="PQ" value=">100,000 Group B strep - [place] / ID to follow" /> < referenceRange> <observationRange> <text /> < /observationRange> </referenceRange> </observation> </ component> <component> <observation moodCode="EVN" classCode="OBS"> <templateId root="16.840.1.057423.11.29.21.4.2" /> <id nullFlavor="NA" /> <code codeSystem="local" code="Zcx3976" displayName= "MEDIA PLATED" /> <statusCode code="completed" /> < effectiveTime value="360366348092" /> <value unit="" xsi:type="PQ" value="Setup at 14:28 06/20/2016" /> <referenceRange> < observationRange> <text /> </observationRange> </referenceRange> </observation> </component> <component> <observation moodCode="EVN" classCode="OBS"> <templateId root= "216.840.1.708503.10..22.4.2" /> <id nullFlavor="NA" /> < code codeSystem="local" code="Usl4354" displayName="CULTURE SOURCE" /> <statusCode code="completed" /> <effectiveTime value="005104269986" /> <value unit="" xsi:type="PQ" value="void" /> <referenceRange > <observationRange> <text /> </ observationRange> </referenceRange> </observation> </ component> </organizer> </entry> <entry> <organizer moodCode="EVN" classCode="BATTERY"> <templateId root="2.16.840.1.076184.10..22.4.1" /> <id nullFlavor="NA" /> <code codeSystem="local" code="Rig52323" displayName="Sensi" /> <statusCode code="completed" /> <component> <observation moodCode="EVN" classCode="OBS"> <templateId root= "216.840.1.686888.10...4.2" /> <id nullFlavor="NA" /> < code codeSystem="local" code="Zot71505" displayName="FINAL CULTURE RESULTS" /> <statusCode code="completed" /> <effectiveTime value= "298735237669" /> <value unit="" xsi:type="PQ" value="Streptococcus agalactiae (Group B) (Isolate 1)" /> <referenceRange> < observationRange> <text /> </observationRange> </referenceRange> </observation> </component> <component> <observation moodCode="EVN" classCode="OBS"> <templateId root= "216.840.1.401486.10...4.2" /> <id nullFlavor="NA" /> < code codeSystem="local" code="Feb7001" displayName="Ampicillin/Sulbactam" /> <statusCode code="completed" /> <effectiveTime value= "940041743494" /> <value unit="" xsi:type="PQ" value="<=8/4" /> <referenceRange> <observationRange> <text /> </observationRange> </referenceRange> </observation> </component> <component> <observation moodCode="EVN" classCode= "OBS"> <templateId root="216.840.1.030449.10..22.4.2" /> < id nullFlavor="NA" /> <code codeSystem="local" code="Iba6017" displayName="Ampicillin" /> <statusCode code="completed" /> < effectiveTime value="551116247463" /> <value unit="" xsi:type="PQ" value="<=2" /> <interpretationCode codeSystem="local" code="N/R" /> <referenceRange> <observationRange> <text /> </observationRange> </referenceRange> </observation> </component> <component> <observation moodCode="EVN" classCode ="OBS"> <templateId root="03.28.840.1.013463...4.2" /> < id nullFlavor="NA" /> <code codeSystem="local" code="Rqy0947" displayName="Amoxicillin/K Clavulanate" /> <statusCode code="completed " /> <effectiveTime value="965988373753" /> <value unit="" xsi :type="PQ" value="<=4/2" /> <referenceRange> < observationRange> <text /> </observationRange> </referenceRange> </observation> </component> <component> <observation moodCode="EVN" classCode="OBS"> <templateId root= "16.840.1.573032.10..22.4.2" /> <id nullFlavor="NA" /> < code codeSystem="local" code="Yrl8612" displayName="Ceftriaxone" /> < statusCode code="completed" /> <effectiveTime value="868064375252" /> <value unit="" xsi:type="PQ" value="<=8" /> < interpretationCode codeSystem="local" code="N/R" /> <referenceRange> <observationRange> <text /> </observationRange > </referenceRange> </observation> </component> < component> <observation moodCode="EVN" classCode="OBS"> < templateId root="216.840.1.001473.10..22.4.2" /> <id nullFlavor="NA " /> <code codeSystem="local" code="Bcf2654" displayName="Clindamycin" /> <statusCode code="completed" /> <effectiveTime value= "617849788034" /> <value unit="" xsi:type="PQ" value="<=0.5" /> <referenceRange> <observationRange> <text /> </observationRange> </referenceRange> </observation> </component> <component> <observation moodCode="EVN" classCode= "OBS"> <templateId root="16.840.1.184057.10.20.22.4.2" /> < id nullFlavor="NA" /> <code codeSystem="local" code="Hsg6529" displayName="Cefoxitin Screen" /> <statusCode code="completed" /> <effectiveTime value="605227485223" /> <value unit="" xsi:type="PQ " value="N/R" /> <referenceRange> <observationRange> <text /> </observationRange> </referenceRange> </observation> </component> <component> <observation moodCode ="EVN" classCode="OBS"> <templateId root= "03.28.840.1.715171.22.4.2" /> <id nullFlavor="NA" /> < code codeSystem="local" code="Gbg7801" displayName="Ciprofloxacin" /> < statusCode code="completed" /> <effectiveTime value="068766198212" /> <value unit="" xsi:type="PQ" value="2" /> <referenceRange> <observationRange> <text /> </observationRange > </referenceRange> </observation> </component> < component> <observation moodCode="EVN" classCode="OBS"> < templateId root="216.840.1.556969.11.29.21.4.2" /> <id nullFlavor="NA " /> <code codeSystem="local" code="Hdr8464" displayName="Daptomycin" / > <statusCode code="completed" /> <effectiveTime value= "162560066963" /> <value unit="" xsi:type="PQ" value="<=0.5" /> <interpretationCode codeSystem="local" code="S" /> < referenceRange> <observationRange> <text /> < /observationRange> </referenceRange> </observation> </ component> <component> <observation moodCode="EVN" classCode="OBS"> <templateId root="16.840.1.637048.11.29.21.4.2" /> <id nullFlavor="NA" /> <code codeSystem="local" code="Nyb9553" displayName= "Erythromycin" /> <statusCode code="completed" /> < effectiveTime value="307958645342" /> <value unit="" xsi:type="PQ" value="<=0.5" /> <referenceRange> <observationRange> <text /> </observationRange> </referenceRange> </observation> </component> <component> <observation moodCode="EVN" classCode="OBS"> <templateId root= "216.840.1.489271.10..4.2" /> <id nullFlavor="NA" /> < code codeSystem="local" code="Jlz1093" displayName="Nitrofurantoin" /> <statusCode code="completed" /> <effectiveTime value="" /> <value unit="" xsi:type="PQ" value="<=32" /> < referenceRange> <observationRange> <text /> < /observationRange> </referenceRange> </observation> </ component> <component> <observation moodCode="EVN" classCode="OBS"> <templateId root="216.840.1.905023.10...4.2" /> <id nullFlavor="NA" /> <code codeSystem="local" code="Mlb2314" displayName= "Gentamicin" /> <statusCode code="completed" /> < effectiveTime value="793491678590" /> <value unit="" xsi:type="PQ" value="N/R" /> <referenceRange> <observationRange> <text /> </observationRange> </referenceRange> < /observation> </component> <component> <observation moodCode= "EVN" classCode="OBS"> <templateId root="16.840.1.971048.10..4.2 " /> <id nullFlavor="NA" /> <code codeSystem="local" code= "Qov8517" displayName="Gentamicin Synergy Screen" /> <statusCode code= "completed" /> <effectiveTime value="185264855089" /> <value unit="" xsi:type="PQ" value="N/R" /> <referenceRange> < observationRange> <text /> </observationRange> </referenceRange> </observation> </component> <component> <observation moodCode="EVN" classCode="OBS"> <templateId root= "03.28.840.1.658980.10.4.2" /> <id nullFlavor="NA" /> < code codeSystem="local" code="Zrk3719" displayName="Inducible Clindamycin" /> <statusCode code="completed" /> <effectiveTime value= "" /> <value unit="" xsi:type="PQ" value="N/R" /> <referenceRange> <observationRange> <text /> </observationRange> </referenceRange> </observation> </ component> <component> <observation moodCode="EVN" classCode="OBS"> <templateId root="16.840.1.747996.11.29.21.4.2" /> <id nullFlavor="NA" /> <code codeSystem="local" code="Lpw4034" displayName= "Levofloxacin" /> <statusCode code="completed" /> < effectiveTime value="" /> <value unit="" xsi:type="PQ" value="2" /> <interpretationCode codeSystem="local" code="S" /> <referenceRange> <observationRange> <text /> </observationRange> </referenceRange> </observation> </ component> <component> <observation moodCode="EVN" classCode="OBS"> <templateId root="03.28.840.1.583623.10.22.4.2" /> <id nullFlavor="NA" /> <code codeSystem="local" code="Shl6679" displayName= "Linezolid" /> <statusCode code="completed" /> <effectiveTime value="931685388422" /> <value unit="" xsi:type="PQ" value="<=1" /> <interpretationCode codeSystem="local" code="S" /> < referenceRange> <observationRange> <text /> < /observationRange> </referenceRange> </observation> </ component> <component> <observation moodCode="EVN" classCode="OBS"> <templateId root="216.840.1.118738.10..22.4.2" /> <id nullFlavor="NA" /> <code codeSystem="local" code="Mje2431" displayName= "Moxifloxacin" /> <statusCode code="completed" /> < effectiveTime value="076781982177" /> <value unit="" xsi:type="PQ" value="<=0.5" /> <referenceRange> <observationRange> <text /> </observationRange> </referenceRange> </observation> </component> <component> <observation moodCode="EVN" classCode="OBS"> <templateId root= "03.28.840.1.154289.10..4.2" /> <id nullFlavor="NA" /> < code codeSystem="local" code="Jzo4211" displayName="Oxacillin" /> < statusCode code="completed" /> <effectiveTime value="062156171097" /> <value unit="" xsi:type="PQ" value="<=0.25" /> < referenceRange> <observationRange> <text /> < /observationRange> </referenceRange> </observation> </ component> <component> <observation moodCode="EVN" classCode="OBS"> <templateId root="03.28.840.1.575745.10.20.22.4.2" /> <id nullFlavor="NA" /> <code codeSystem="local" code="Dxm0583" displayName= "Penicillin" /> <statusCode code="completed" /> < effectiveTime value="015880556379" /> <value unit="" xsi:type="PQ" value="<=0.03" /> <interpretationCode codeSystem="local" code="S" / > <referenceRange> <observationRange> <text /> </observationRange> </referenceRange> </observation > </component> <component> <observation moodCode="EVN" classCode="OBS"> <templateId root="16.840.1.609421.10..4.2" /> <id nullFlavor="NA" /> <code codeSystem="local" code="Kye5366 " displayName="Rifampin" /> <statusCode code="completed" /> < effectiveTime value="529137145255" /> <value unit="" xsi:type="PQ" value="<=1" /> <referenceRange> <observationRange> <text /> </observationRange> </referenceRange> </observation> </component> <component> <observation moodCode="EVN" classCode="OBS"> <templateId root= "03.28.840.1.315324.11.29.21.4.2" /> <id nullFlavor="NA" /> < code codeSystem="local" code="Tyd4812" displayName="Streptomycin Synergy" /> <statusCode code="completed" /> <effectiveTime value= "343756996081" /> <value unit="" xsi:type="PQ" value="N/R" /> <referenceRange> <observationRange> <text /> </observationRange> </referenceRange> </observation> </ component> <component> <observation moodCode="EVN" classCode="OBS"> <templateId root="03.28.840.1.702066..22.4.2" /> <id nullFlavor="NA" /> <code codeSystem="local" code="Esg9198" displayName= "Synercid" /> <statusCode code="completed" /> <effectiveTime value="828889102458" /> <value unit="" xsi:type="PQ" value="<=0.5" / > <referenceRange> <observationRange> <text /> </observationRange> </referenceRange> </observation > </component> <component> <observation moodCode="EVN" classCode="OBS"> <templateId root="216.840.1.218452.10..22.4.2" /> <id nullFlavor="NA" /> <code codeSystem="local" code="Ont6114 " displayName="Trimethoprim/ Sulfamethoxazole" /> <statusCode code= "completed" /> <effectiveTime value="315480309304" /> <value unit="" xsi:type="PQ" value="<=0.5/9.5" /> <referenceRange> <observationRange> <text /> </observationRange> </referenceRange> </observation> </component> <component > <observation moodCode="EVN" classCode="OBS"> <templateId root= "216.840.1.757768.10..22.4.2" /> <id nullFlavor="NA" /> < code codeSystem="local" code="Bgn9114" displayName="Tetracycline" /> < statusCode code="completed" /> <effectiveTime value="053357528243" /> <value unit="" xsi:type="PQ" value=">8" /> < interpretationCode codeSystem="local" code="N/R" /> <referenceRange> <observationRange> <text /> </observationRange > </referenceRange> </observation> </component> < component> <observation moodCode="EVN" classCode="OBS"> < templateId root="03.28.840.1.103679.10...4.2" /> <id nullFlavor="NA " /> <code codeSystem="local" code="Nrj9700" displayName="Vancomycin" / > <statusCode code="completed" /> <effectiveTime value= "138033535451" /> <value unit="" xsi:type="PQ" value="0.5" /> <interpretationCode codeSystem="local" code="S" /> <referenceRange> <observationRange> <text /> </observationRange > </referenceRange> </observation> </component> </ organizer> </entry> <entry> <organizer moodCode="EVN" classCode="BATTERY"> <templateId root="03.28.840.1.315600.10..4.1" /> <id nullFlavor= "NA" /> <code codeSystem="local" code="XLJ6699" displayName="MRSA Screen" / > <statusCode code="completed" /> <component> <observation moodCode="EVN" classCode="OBS"> <templateId root= "03.28.840.1.534031.10...4.2" /> <id nullFlavor="NA" /> < code codeSystem="local" code="Vtd1191" displayName="FINAL CULTURE RESULTS" /> <statusCode code="completed" /> <effectiveTime value= "051211007406" /> <value unit="" xsi:type="PQ" value="MRSA Negative Nasal Culture" /> <referenceRange> <observationRange> <text /> </observationRange> </referenceRange> </observation> </component> <component> <observation moodCode="EVN" classCode="OBS"> <templateId root= "03.28.840.1.780998.11.29.214.2" /> <id nullFlavor="NA" /> < code codeSystem="local" code="Mhf9481" displayName="MEDIA PLATED" /> < statusCode code="completed" /> <effectiveTime value="276904912025" /> <value unit="" xsi:type="PQ" value="Setup at 15:12 on 06/20/2016" /> <referenceRange> <observationRange> <text /> </observationRange> </referenceRange> </observation> </component> </organizer> </entry> <entry> <organizer moodCode="EVN" classCode="BATTERY"> <templateId root="216.840.1.945155.11.29.214.1" /> <id nullFlavor="NA" /> <code codeSystem="local" code="HOP8376" displayName="Protime " /> <statusCode code="completed" /> <component> <observation moodCode="EVN" classCode="OBS"> <templateId root= "216.840.1.080511.11.29.21.4.2" /> <id nullFlavor="NA" /> < code codeSystem="local" code="Bzt129" displayName="INR" /> <statusCode code="completed" /> <effectiveTime value="515013290372" /> < value unit="" xsi:type="PQ" value="3.5" /> <referenceRange> <observationRange> <text>1.0-4.0</text> </ observationRange> </referenceRange> </observation> </ component> <component> <observation moodCode="EVN" classCode="OBS"> <templateId root="216.840.1.117706.11.29.21.4.2" /> <id nullFlavor="NA" /> <code codeSystem="local" code="Rnh2812" displayName= "Protime" /> <statusCode code="completed" /> <effectiveTime value="900543751923" /> <value unit="Sec" xsi:type="PQ" value="43.2" / > <interpretationCode codeSystem="local" code="H" /> < referenceRange> <observationRange> <text>9.9-12.8</text > </observationRange> </referenceRange> </observation > </component> </organizer> </entry> <entry> <organizer moodCode= "EVN" classCode="BATTERY"> <templateId root="216.840.1.978398.10...4.1 " /> <id nullFlavor="NA" /> <code codeSystem="local" code="QUS0231" displayName="Protime " /> <statusCode code="completed" /> <component> <observation moodCode="EVN" classCode="OBS"> <templateId root= "216.840.1.817462.10..22.4.2" /> <id nullFlavor="NA" /> < code codeSystem="local" code="Lsk931" displayName="INR" /> <statusCode code="completed" /> <effectiveTime value="886997933934" /> < value unit="" xsi:type="PQ" value="2.8" /> <referenceRange> <observationRange> <text>1.0-4.0</text> </ observationRange> </referenceRange> </observation> </ component> <component> <observation moodCode="EVN" classCode="OBS"> <templateId root="216.840.1.038091.10..22.4.2" /> <id nullFlavor="NA" /> <code codeSystem="local" code="Zud9376" displayName= "Protime" /> <statusCode code="completed" /> <effectiveTime value="684204744995" /> <value unit="Sec" xsi:type="PQ" value="34.5" / > <interpretationCode codeSystem="local" code="H" /> < referenceRange> <observationRange> <text>9.9-12.8</text > </observationRange> </referenceRange> </observation > </component> </organizer> </entry> <entry> <organizer moodCode= "EVN" classCode="BATTERY"> <templateId root="216.840.1.646679.10..22.4.1 " /> <id nullFlavor="NA" /> <code codeSystem="local" code="UGW3586" displayName="Protime " /> <statusCode code="completed" /> <component> <observation moodCode="EVN" classCode="OBS"> <templateId root= "216.840.1.693534.10...4.2" /> <id nullFlavor="NA" /> < code codeSystem="local" code="Efn225" displayName="INR" /> <statusCode code="completed" /> <effectiveTime value="306360391549" /> < value unit="" xsi:type="PQ" value="2.1" /> <referenceRange> <observationRange> <text>1.0-4.0</text> </ observationRange> </referenceRange> </observation> </ component> <component> <observation moodCode="EVN" classCode="OBS"> <templateId root="216.840.1.531062.10..4.2" /> <id nullFlavor="NA" /> <code codeSystem="local" code="Jki6452" displayName= "Protime" /> <statusCode code="completed" /> <effectiveTime value="122198786405" /> <value unit="Sec" xsi:type="PQ" value="25.2" / > <interpretationCode codeSystem="local" code="H" /> < referenceRange> <observationRange> <text>9.9-12.8</text > </observationRange> </referenceRange> </observation > </component> </organizer> </entry> <entry> <organizer moodCode= "EVN" classCode="BATTERY"> <templateId root="216.840.1.180192.10.20.22.4.1 " /> <id nullFlavor="NA" /> <code codeSystem="local" code="XPI472" displayName="BNP" /> <statusCode code="completed" /> <component> <observation moodCode="EVN" classCode="OBS"> <templateId root= "216.840.1.195417.10..22.4.2" /> <id nullFlavor="NA" /> < code codeSystem="local" code="Mbe772" displayName="BNP" /> <statusCode code="completed" /> <effectiveTime value="963382544339" /> < value unit="pg/ml" xsi:type="PQ" value="10.10" /> <referenceRange> <observationRange> <text>0.00-100.00</text> </ observationRange> </referenceRange> </observation> </ component> </organizer> </entry> <entry> <organizer moodCode="EVN" classCode="BATTERY"> <templateId root="216.840.1.298098.10.20.22.4.1" /> <id nullFlavor="NA" /> <code codeSystem="local" code="OMM4691" displayName="Protime " /> <statusCode code="completed" /> <component> <observation moodCode="EVN" classCode="OBS"> <templateId root= "03.28.840.1.878293.10..4.2" /> <id nullFlavor="NA" /> < code codeSystem="local" code="Isz949" displayName="INR" /> <statusCode code="completed" /> <effectiveTime value="" /> < value unit="" xsi:type="PQ" value="3.2" /> <referenceRange> <observationRange> <text>1.0-4.0</text> </ observationRange> </referenceRange> </observation> </ component> <component> <observation moodCode="EVN" classCode="OBS"> <templateId root="840.1.855410.10.4.2" /> <id nullFlavor="NA" /> <code codeSystem="local" code="Wtb8942" displayName= "Protime" /> <statusCode code="completed" /> <effectiveTime value="" /> <value unit="Sec" xsi:type="PQ" value="39.4" / > <interpretationCode codeSystem="local" code="H" /> < referenceRange> <observationRange> <text>9.9-12.8</text > </observationRange> </referenceRange> </observation > </component> </organizer> </entry> <entry> <organizer moodCode= "EVN" classCode="BATTERY"> <templateId root="03.28.840.1.068492.10.2022.4.1 " /> <id nullFlavor="NA" /> <code codeSystem="local" code="GNY0288" displayName="Protime " /> <statusCode code="completed" /> <component> <observation moodCode="EVN" classCode="OBS"> <templateId root= "840.1.768854.1022.4.2" /> <id nullFlavor="NA" /> < code codeSystem="local" code="Imb871" displayName="INR" /> <statusCode code="completed" /> <effectiveTime value="185045116690" /> < value unit="" xsi:type="PQ" value="1.1" /> <referenceRange> <observationRange> <text>1.0-4.0</text> </ observationRange> </referenceRange> </observation> </ component> <component> <observation moodCode="EVN" classCode="OBS"> <templateId root="840.1.379234.11.29.21.4.2" /> <id nullFlavor="NA" /> <code codeSystem="local" code="Nxq3449" displayName= "Protime" /> <statusCode code="completed" /> <effectiveTime value="989284442611" /> <value unit="Sec" xsi:type="PQ" value="13.3" / > <interpretationCode codeSystem="local" code="H" /> < referenceRange> <observationRange> <text>9.9-12.8</text > </observationRange> </referenceRange> </observation > </component> </organizer> </entry> <entry> <organizer moodCode= "EVN" classCode="BATTERY"> <templateId root="03.28.840.1.954984.22.4.1 " /> <id nullFlavor="NA" /> <code codeSystem="local" code="HGB" displayName="HEMOGLOBIN" /> <statusCode code="completed" /> <component > <observation moodCode="EVN" classCode="OBS"> <templateId root= "03.28.840.1.193807.11.29.21.4.2" /> <id nullFlavor="NA" /> < code codeSystem="local" code="MCV" displayName="MEAN CELL VOLUME" /> < statusCode code="completed" /> <effectiveTime value="556312187547" /> <value unit="fl" xsi:type="PQ" value="96.9" /> <referenceRange > <observationRange> <text>80.0-100.0</text> </observationRange> </referenceRange> </observation> </ component> <component> <observation moodCode="EVN" classCode="OBS"> <templateId root="840.1.341966.11.29.21.4.2" /> <id nullFlavor="NA" /> <code codeSystem="local" code="HGBT" displayName= "HEMOGLOBIN" /> <statusCode code="completed" /> < effectiveTime value="542649463281" /> <value unit="gm/dL" xsi:type="PQ " value="11.7" /> <interpretationCode codeSystem="local" code="*" /> <referenceRange> <observationRange> <text>12.0- 16.0</text> </observationRange> </referenceRange> </ observation> </component> </organizer> </entry> <entry> <organizer moodCode="EVN" classCode="BATTERY"> <templateId root= "840.1.143882.11.29.21.4.1" /> <id nullFlavor="NA" /> <code codeSystem="local" code="PT" displayName="PROTHROMBIN TIME WITH INR" /> < statusCode code="completed" /> <component> <observation moodCode= "EVN" classCode="OBS"> <templateId root="840.1.940860.22.4.2 " /> <id nullFlavor="NA" /> <code codeSystem="local" code= "INRX" displayName="INTERNATIONAL NORMAL RATIO" /> <statusCode code= "completed" /> <effectiveTime value="171709402759" /> <value unit="" xsi:type="PQ" value="1.1" /> <referenceRange> < observationRange> <text>0.9-1.1</text> </ observationRange> </referenceRange> </observation> </ component> <component> <observation moodCode="EVN" classCode="OBS"> <templateId root="840.1.786583.11.29.21.4.2" /> <id nullFlavor="NA" /> <code codeSystem="local" code="PTPAT" displayName= "PROTHROMBIN TIME" /> <statusCode code="completed" /> < effectiveTime value="295638404201" /> <value unit="sec" xsi:type="PQ" value="12.3" /> <referenceRange> <observationRange> <text>10.0-12.8</text> </observationRange> </ referenceRange> </observation> </component> </organizer> </entry > <entry> <organizer moodCode="EVN" classCode="BATTERY"> <templateId root="840.1.549027.11.29.21.4.1" /> <id nullFlavor="NA" /> <code codeSystem="local" code="METAB" displayName="METABOLIC PANEL, BASIC" /> < statusCode code="completed" /> <component> <observation moodCode= "EVN" classCode="OBS"> <templateId root="03.28.840.1.055024.22.4.2 " /> <id nullFlavor="NA" /> <code codeSystem="local" code="K" displayName="POTASSIUM" /> <statusCode code="completed" /> < effectiveTime value="645534550475" /> <value unit="mmol/L" xsi:type="PQ " value="3.6" /> <referenceRange> <observationRange> <text>3.5-5.3</text> </observationRange> </ referenceRange> </observation> </component> <component> <observation moodCode="EVN" classCode="OBS"> <templateId root= "16.840.1.209768.10..22.4.2" /> <id nullFlavor="NA" /> < code codeSystem="local" code="eGFR" displayName="EST GFR (MDRD)" /> < statusCode code="completed" /> <effectiveTime value="484432340381" /> <value unit="mL/min" xsi:type="PQ" value="> 60" /> < referenceRange> <observationRange> <text>> 59</text> </observationRange> </referenceRange> </observation > </component> <component> <observation moodCode="EVN" classCode="OBS"> <templateId root="03.28.840.1.434408.10..22.4.2" /> <id nullFlavor="NA" /> <code codeSystem="local" code="GAP" displayName="ANION GAP" /> <statusCode code="completed" /> < effectiveTime value="220405221910" /> <value unit="mmol/L" xsi:type="PQ " value="7" /> <referenceRange> <observationRange> <text>5-15</text> </observationRange> </referenceRange > </observation> </component> <component> <observation moodCode="EVN" classCode="OBS"> <templateId root= "03.28.840.1.832945.10..4.2" /> <id nullFlavor="NA" /> < code codeSystem="local" code="eCrCl" displayName="EST CrCl (CG)" /> < statusCode code="completed" /> <effectiveTime value="" /> <value unit="mL/min" xsi:type="PQ" value="> 60" /> < referenceRange> <observationRange> <text>> 59</text> </observationRange> </referenceRange> </observation > </component> <component> <observation moodCode="EVN" classCode="OBS"> <templateId root="216.840.1.145155.11.29.21.4.2" /> <id nullFlavor="NA" /> <code codeSystem="local" code="GLU" displayName="GLUCOSE" /> <statusCode code="completed" /> < effectiveTime value="" /> <value unit="mg/dL" xsi:type="PQ " value="85" /> <referenceRange> <observationRange> <text>70-99</text> </observationRange> </ referenceRange> </observation> </component> <component> <observation moodCode="EVN" classCode="OBS"> <templateId root= "2.16.840.1.468853.10.4.2" /> <id nullFlavor="NA" /> < code codeSystem="local" code="CA" displayName="CALCIUM" /> <statusCode code="completed" /> <effectiveTime value="" /> < value unit="mg/dL" xsi:type="PQ" value="9.1" /> <referenceRange> <observationRange> <text>8.5-10.1</text> </ observationRange> </referenceRange> </observation> </ component> <component> <observation moodCode="EVN" classCode="OBS"> <templateId root="216.840.1.006761.10.20.22.4.2" /> <id nullFlavor="NA" /> <code codeSystem="local" code="BUN" displayName= "BLOOD UREA NITROGEN" /> <statusCode code="completed" /> < effectiveTime value="131957248729" /> <value unit="mg/dL" xsi:type="PQ " value="17" /> <referenceRange> <observationRange> <text>7-20</text> </observationRange> </referenceRange > </observation> </component> <component> <observation moodCode="EVN" classCode="OBS"> <templateId root= "16.840.1.826156.10..22.4.2" /> <id nullFlavor="NA" /> < code codeSystem="local" code="CREAT" displayName="CREATININE" /> < statusCode code="completed" /> <effectiveTime value="" /> <value unit="mg/dL" xsi:type="PQ" value="0.7" /> < referenceRange> <observationRange> <text>0.6-1.0</text> </observationRange> </referenceRange> </observation > </component> <component> <observation moodCode="EVN" classCode="OBS"> <templateId root="16.840.1.650355.10.20.22.4.2" /> <id nullFlavor="NA" /> <code codeSystem="local" code="NA" displayName="SODIUM" /> <statusCode code="completed" /> < effectiveTime value="336262649816" /> <value unit="mmol/L" xsi:type="PQ " value="147" /> <referenceRange> <observationRange> <text>135-148</text> </observationRange> </ referenceRange> </observation> </component> <component> <observation moodCode="EVN" classCode="OBS"> <templateId root= "2.16.840.1.358615.10..4.2" /> <id nullFlavor="NA" /> < code codeSystem="local" code="CL" displayName="CHLORIDE" /> < statusCode code="completed" /> <effectiveTime value="163071135392" /> <value unit="mmol/L" xsi:type="PQ" value="111" /> < interpretationCode codeSystem="local" code="*" /> <referenceRange> <observationRange> <text>98-110</text> </ observationRange> </referenceRange> </observation> </ component> <component> <observation moodCode="EVN" classCode="OBS"> <templateId root="216.840.1.564101.11.29.21.4.2" /> <id nullFlavor="NA" /> <code codeSystem="local" code="CO2" displayName= "CARBON DIOXIDE" /> <statusCode code="completed" /> < effectiveTime value="335930134583" /> <value unit="mmol/L" xsi:type="PQ " value="29" /> <referenceRange> <observationRange> <text>21-32</text> </observationRange> </ referenceRange> </observation> </component> </organizer> </entry > <entry> <organizer moodCode="EVN" classCode="BATTERY"> <templateId root="2.16.840.1.084229.10..22.4.1" /> <id nullFlavor="NA" /> <code codeSystem="local" code="PT" displayName="PROTHROMBIN TIME WITH INR" /> < statusCode code="completed" /> <component> <observation moodCode= "EVN" classCode="OBS"> <templateId root="16.840.1.629832.10.4.2 " /> <id nullFlavor="NA" /> <code codeSystem="local" code= "INRX" displayName="INTERNATIONAL NORMAL RATIO" /> <statusCode code= "completed" /> <effectiveTime value="110053253865" /> <value unit="" xsi:type="PQ" value="1.1" /> <referenceRange> < observationRange> <text>0.9-1.1</text> </ observationRange> </referenceRange> </observation> </ component> <component> <observation moodCode="EVN" classCode="OBS"> <templateId root="03.28.840.1.661092.11.29.21.4.2" /> <id nullFlavor="NA" /> <code codeSystem="local" code="PTPAT" displayName= "PROTHROMBIN TIME" /> <statusCode code="completed" /> < effectiveTime value="917644065006" /> <value unit="sec" xsi:type="PQ" value="12.6" /> <referenceRange> <observationRange> <text>10.0-12.8</text> </observationRange> </ referenceRange> </observation> </component> </organizer> </entry > <entry> <organizer moodCode="EVN" classCode="BATTERY"> <templateId root="03.28.840.1.238308.10.4.1" /> <id nullFlavor="NA" /> <code codeSystem="local" code="PT" displayName="PROTHROMBIN TIME WITH INR" /> < statusCode code="completed" /> <component> <observation moodCode= "EVN" classCode="OBS"> <templateId root="03.28840.1.948000.11.29.21.4.2 " /> <id nullFlavor="NA" /> <code codeSystem="local" code= "INRX" displayName="INTERNATIONAL NORMAL RATIO" /> <statusCode code= "completed" /> <effectiveTime value="" /> <value unit="" xsi:type="PQ" value="1.1" /> <referenceRange> < observationRange> <text>0.9-1.1</text> </ observationRange> </referenceRange> </observation> </ component> <component> <observation moodCode="EVN" classCode="OBS"> <templateId root="840.1.026260.11.29.21.4.2" /> <id nullFlavor="NA" /> <code codeSystem="local" code="PTPAT" displayName= "PROTHROMBIN TIME" /> <statusCode code="completed" /> < effectiveTime value="" /> <value unit="sec" xsi:type="PQ" value="13.0" /> <interpretationCode codeSystem="local" code="*" /> <referenceRange> <observationRange> <text>10.0- 12.8</text> </observationRange> </referenceRange> </ observation> </component> </organizer> </entry> <entry> <organizer moodCode="EVN" classCode="BATTERY"> <templateId root= "03.28.840.1.369671.11.29.21.4.1" /> <id nullFlavor="NA" /> <code codeSystem="local" code="CBC" displayName="CBC" /> <statusCode code= "completed" /> <component> <observation moodCode="EVN" classCode= "OBS"> <templateId root="03.28.840.1.257932.22.4.2" /> < id nullFlavor="NA" /> <code codeSystem="local" code="MCH" displayName= "MEAN CELL HGB" /> <statusCode code="completed" /> < effectiveTime value="234051390696" /> <value unit="pg" xsi:type="PQ" value="29.3" /> <referenceRange> <observationRange> <text>27.0-33.0</text> </observationRange> </ referenceRange> </observation> </component> <component> <observation moodCode="EVN" classCode="OBS"> <templateId root= "2.16.840.1.317700.10..4.2" /> <id nullFlavor="NA" /> < code codeSystem="local" code="MCHC" displayName="MEAN CELL HGB CONCENTRATION" / > <statusCode code="completed" /> <effectiveTime value= "014269633951" /> <value unit="g/dL" xsi:type="PQ" value="30.4" /> <interpretationCode codeSystem="local" code="*" /> < referenceRange> <observationRange> <text>32.0-37.0</text > </observationRange> </referenceRange> </observation > </component> <component> <observation moodCode="EVN" classCode="OBS"> <templateId root="2.16.840.1.298541.10..4.2" /> <id nullFlavor="NA" /> <code codeSystem="local" code="MCV" displayName="MEAN CELL VOLUME" /> <statusCode code="completed" /> <effectiveTime value="456946158175" /> <value unit="fl" xsi:type= "PQ" value="96.4" /> <referenceRange> <observationRange> <text>80.0-100.0</text> </observationRange> </ referenceRange> </observation> </component> <component> <observation moodCode="EVN" classCode="OBS"> <templateId root= "03.28.840.1.067550.10..4.2" /> <id nullFlavor="NA" /> < code codeSystem="local" code="RBC" displayName="RED BLOOD CELL" /> < statusCode code="completed" /> <effectiveTime value="" /> <value unit="m/cumm" xsi:type="PQ" value="3.58" /> < interpretationCode codeSystem="local" code="*" /> <referenceRange> <observationRange> <text>4.00-6.00</text> </ observationRange> </referenceRange> </observation> </ component> <component> <observation moodCode="EVN" classCode="OBS"> <templateId root="03.28.840.1.682091.11.29.21.4.2" /> <id nullFlavor="NA" /> <code codeSystem="local" code="RDW" displayName=" RED CELL DISTRIBUTION WIDTH" /> <statusCode code="completed" /> <effectiveTime value="" /> <value unit="%" xsi:type= "PQ" value="16.3" /> <interpretationCode codeSystem="local" code="*" / > <referenceRange> <observationRange> <text> 11.0-15.6</text> </observationRange> </referenceRange> </observation> </component> <component> <observation moodCode="EVN" classCode="OBS"> <templateId root= "03.28.840.1.027123.10.4.2" /> <id nullFlavor="NA" /> < code codeSystem="local" code="WBC" displayName="WHITE BLOOD CELL" /> < statusCode code="completed" /> <effectiveTime value="137962466149" /> <value unit="k/cumm" xsi:type="PQ" value="5.9" /> < referenceRange> <observationRange> <text>5.0-10.0</text > </observationRange> </referenceRange> </observation > </component> <component> <observation moodCode="EVN" classCode="OBS"> <templateId root="216.840.1.327733.10.20.22.4.2" /> <id nullFlavor="NA" /> <code codeSystem="local" code="HGBT" displayName="HEMOGLOBIN" /> <statusCode code="completed" /> < effectiveTime value="199816273333" /> <value unit="gm/dL" xsi:type="PQ " value="10.5" /> <interpretationCode codeSystem="local" code="*" /> <referenceRange> <observationRange> <text>12.0- 16.0</text> </observationRange> </referenceRange> </ observation> </component> <component> <observation moodCode= "EVN" classCode="OBS"> <templateId root="2.16.840.1.496939.10.20.22.4.2 " /> <id nullFlavor="NA" /> <code codeSystem="local" code= "HCTT" displayName="HEMATOCRIT" /> <statusCode code="completed" /> <effectiveTime value="402506824313" /> <value unit="%" xsi: type="PQ" value="34.5" /> <interpretationCode codeSystem="local" code= "*" /> <referenceRange> <observationRange> < text>37.0-47.0</text> </observationRange> </referenceRange> </observation> </component> <component> <observation moodCode="EVN" classCode="OBS"> <templateId root= "16.840.1.829782.10..22.4.2" /> <id nullFlavor="NA" /> < code codeSystem="local" code="PLT" displayName="PLATELET COUNT" /> < statusCode code="completed" /> <effectiveTime value="115307307786" /> <value unit="k/cumm" xsi:type="PQ" value="142" /> < interpretationCode codeSystem="local" code="*" /> <referenceRange> <observationRange> <text>150-400</text> </ observationRange> </referenceRange> </observation> </ component> </organizer> </entry> <entry> <organizer moodCode="EVN" classCode="BATTERY"> <templateId root="16.840.1.562219.10..22.4.1" /> <id nullFlavor="NA" /> <code codeSystem="local" code="METABC" displayName="METABOLIC PANEL, COMPREHN" /> <statusCode code="completed" /> <component> <observation moodCode="EVN" classCode="OBS"> < templateId root="216.840.1.540016.10..22.4.2" /> <id nullFlavor="NA " /> <code codeSystem="local" code="K" displayName="POTASSIUM" /> <statusCode code="completed" /> <effectiveTime value="532019878449 " /> <value unit="mmol/L" xsi:type="PQ" value="3.8" /> < referenceRange> <observationRange> <text>3.5-5.3</text> </observationRange> </referenceRange> </observation > </component> <component> <observation moodCode="EVN" classCode="OBS"> <templateId root="216.840.1.265392.10..22.4.2" /> <id nullFlavor="NA" /> <code codeSystem="local" code="eGFR" displayName="EST GFR (MDRD)" /> <statusCode code="completed" /> <effectiveTime value="" /> <value unit="mL/min" xsi:type ="PQ" value="> 60" /> <referenceRange> <observationRange > <text>> 59</text> </observationRange> </ referenceRange> </observation> </component> <component> <observation moodCode="EVN" classCode="OBS"> <templateId root= "216.840.1.920298.10..4.2" /> <id nullFlavor="NA" /> < code codeSystem="local" code="GAP" displayName="ANION GAP" /> < statusCode code="completed" /> <effectiveTime value="" /> <value unit="mmol/L" xsi:type="PQ" value="7" /> < referenceRange> <observationRange> <text>5-15</text> </observationRange> </referenceRange> </observation> </component> <component> <observation moodCode="EVN" classCode= "OBS"> <templateId root="16.840.1.119799.10.4.2" /> < id nullFlavor="NA" /> <code codeSystem="local" code="eCrCl" displayName ="EST CrCl (CG)" /> <statusCode code="completed" /> < effectiveTime value="" /> <value unit="mL/min" xsi:type="PQ " value="> 60" /> <referenceRange> <observationRange> <text>> 59</text> </observationRange> </ referenceRange> </observation> </component> <component> <observation moodCode="EVN" classCode="OBS"> <templateId root= "216.840.1.208846.10.4.2" /> <id nullFlavor="NA" /> < code codeSystem="local" code="GLU" displayName="GLUCOSE" /> < statusCode code="completed" /> <effectiveTime value="" /> <value unit="mg/dL" xsi:type="PQ" value="79" /> < referenceRange> <observationRange> <text>70-99</text> </observationRange> </referenceRange> </observation> </component> <component> <observation moodCode="EVN" classCode= "OBS"> <templateId root="16.840.1.424324.11.29.21.4.2" /> < id nullFlavor="NA" /> <code codeSystem="local" code="CA" displayName= "CALCIUM" /> <statusCode code="completed" /> <effectiveTime value="" /> <value unit="mg/dL" xsi:type="PQ" value="8.3" / > <interpretationCode codeSystem="local" code="*" /> < referenceRange> <observationRange> <text>8.5-10.1</text > </observationRange> </referenceRange> </observation > </component> <component> <observation moodCode="EVN" classCode="OBS"> <templateId root="03.28.840.1.963241...4.2" /> <id nullFlavor="NA" /> <code codeSystem="local" code="BUN" displayName="BLOOD UREA NITROGEN" /> <statusCode code="completed" /> <effectiveTime value="" /> <value unit="mg/dL" xsi: type="PQ" value="16" /> <referenceRange> <observationRange> <text>7-20</text> </observationRange> </ referenceRange> </observation> </component> <component> <observation moodCode="EVN" classCode="OBS"> <templateId root= "216.840.1.195711.10..22.4.2" /> <id nullFlavor="NA" /> < code codeSystem="local" code="CREAT" displayName="CREATININE" /> < statusCode code="completed" /> <effectiveTime value="678216782162" /> <value unit="mg/dL" xsi:type="PQ" value="0.8" /> < referenceRange> <observationRange> <text>0.6-1.0</text> </observationRange> </referenceRange> </observation > </component> <component> <observation moodCode="EVN" classCode="OBS"> <templateId root="03.28.840.1.086823...4.2" /> <id nullFlavor="NA" /> <code codeSystem="local" code="NA" displayName="SODIUM" /> <statusCode code="completed" /> < effectiveTime value="994246237936" /> <value unit="mmol/L" xsi:type="PQ " value="147" /> <referenceRange> <observationRange> <text>135-148</text> </observationRange> </ referenceRange> </observation> </component> <component> <observation moodCode="EVN" classCode="OBS"> <templateId root= "16.840.1.353210.10..22.4.2" /> <id nullFlavor="NA" /> < code codeSystem="local" code="CL" displayName="CHLORIDE" /> < statusCode code="completed" /> <effectiveTime value="010896411827" /> <value unit="mmol/L" xsi:type="PQ" value="111" /> < interpretationCode codeSystem="local" code="*" /> <referenceRange> <observationRange> <text>98-110</text> </ observationRange> </referenceRange> </observation> </ component> <component> <observation moodCode="EVN" classCode="OBS"> <templateId root="216.840.1.777061.10...4.2" /> <id nullFlavor="NA" /> <code codeSystem="local" code="AST" displayName="AST /SGOT" /> <statusCode code="completed" /> <effectiveTime value ="716308326224" /> <value unit="Units/L" xsi:type="PQ" value="26" /> <referenceRange> <observationRange> <text>10-37< /text> </observationRange> </referenceRange> </ observation> </component> <component> <observation moodCode= "EVN" classCode="OBS"> <templateId root="216.840.1.392910.10.20..4.2 " /> <id nullFlavor="NA" /> <code codeSystem="local" code="ALT " displayName="ALT/SGPT" /> <statusCode code="completed" /> < effectiveTime value="143027708772" /> <value unit="Units/L" xsi:type= "PQ" value="22" /> <referenceRange> <observationRange> <text>< 66</text> </observationRange> </ referenceRange> </observation> </component> <component> <observation moodCode="EVN" classCode="OBS"> <templateId root= "216.840.1.955446.22.4.2" /> <id nullFlavor="NA" /> < code codeSystem="local" code="CO2" displayName="CARBON DIOXIDE" /> < statusCode code="completed" /> <effectiveTime value="" /> <value unit="mmol/L" xsi:type="PQ" value="29" /> < referenceRange> <observationRange> <text>21-32</text> </observationRange> </referenceRange> </observation> </component> <component> <observation moodCode="EVN" classCode= "OBS"> <templateId root="16.840.1.234324.11.29.214.2" /> < id nullFlavor="NA" /> <code codeSystem="local" code="TP" displayName= "TOTAL PROTEIN" /> <statusCode code="completed" /> < effectiveTime value="" /> <value unit="gm/dL" xsi:type="PQ " value="5.4" /> <interpretationCode codeSystem="local" code="*" /> <referenceRange> <observationRange> <text>6.4-8.2 </text> </observationRange> </referenceRange> </ observation> </component> <component> <observation moodCode= "EVN" classCode="OBS"> <templateId root="03.28.840.1.363275.22.4.2 " /> <id nullFlavor="NA" /> <code codeSystem="local" code="ALB " displayName="ALBUMIN" /> <statusCode code="completed" /> < effectiveTime value="" /> <value unit="gm/dL" xsi:type="PQ " value="2.8" /> <interpretationCode codeSystem="local" code="*" /> <referenceRange> <observationRange> <text>3.4-5.0 </text> </observationRange> </referenceRange> </ observation> </component> <component> <observation moodCode= "EVN" classCode="OBS"> <templateId root="16.840.1.288522.10..22.4.2 " /> <id nullFlavor="NA" /> <code codeSystem="local" code= "BILTOT" displayName="BILI TOTAL" /> <statusCode code="completed" /> <effectiveTime value="926929073754" /> <value unit="mg/dL" xsi: type="PQ" value="0.4" /> <referenceRange> <observationRange > <text>0.0-1.0</text> </observationRange> </ referenceRange> </observation> </component> <component> <observation moodCode="EVN" classCode="OBS"> <templateId root= "03.28.840.1.342571.10..4.2" /> <id nullFlavor="NA" /> < code codeSystem="local" code="ALKP" displayName="ALKALINE PHOSPHATASE TOTAL" /> <statusCode code="completed" /> <effectiveTime value= "207784420890" /> <value unit="IU/L" xsi:type="PQ" value="88" /> <referenceRange> <observationRange> <text>45-117</ text> </observationRange> </referenceRange> </ observation> </component> </organizer> </entry> <entry> <organizer moodCode="EVN" classCode="BATTERY"> <templateId root= "03.28.840.1.383428.10..22.4.1" /> <id nullFlavor="NA" /> <code codeSystem="local" code="CBC" displayName="CBC" /> <statusCode code= "completed" /> <component> <observation moodCode="EVN" classCode= "OBS"> <templateId root="03.28.840.1.980328.10..4.2" /> < id nullFlavor="NA" /> <code codeSystem="local" code="MCH" displayName= "MEAN CELL HGB" /> <statusCode code="completed" /> < effectiveTime value="" /> <value unit="pg" xsi:type="PQ" value="29.3" /> <referenceRange> <observationRange> <text>27.0-33.0</text> </observationRange> </ referenceRange> </observation> </component> <component> <observation moodCode="EVN" classCode="OBS"> <templateId root= "03.28.840.1.225955.11.29.21.4.2" /> <id nullFlavor="NA" /> < code codeSystem="local" code="MCHC" displayName="MEAN CELL HGB CONCENTRATION" / > <statusCode code="completed" /> <effectiveTime value= "" /> <value unit="g/dL" xsi:type="PQ" value="31.6" /> <interpretationCode codeSystem="local" code="*" /> < referenceRange> <observationRange> <text>32.0-37.0</text > </observationRange> </referenceRange> </observation > </component> <component> <observation moodCode="EVN" classCode="OBS"> <templateId root="03.28.840.1.224251.22.4.2" /> <id nullFlavor="NA" /> <code codeSystem="local" code="MCV" displayName="MEAN CELL VOLUME" /> <statusCode code="completed" /> <effectiveTime value="290269169625" /> <value unit="fl" xsi:type= "PQ" value="92.9" /> <referenceRange> <observationRange> <text>80.0-100.0</text> </observationRange> </ referenceRange> </observation> </component> <component> <observation moodCode="EVN" classCode="OBS"> <templateId root= "216.840.1.918471.11.29.21.4.2" /> <id nullFlavor="NA" /> < code codeSystem="local" code="RBC" displayName="RED BLOOD CELL" /> < statusCode code="completed" /> <effectiveTime value="451616932671" /> <value unit="m/cumm" xsi:type="PQ" value="3.68" /> < interpretationCode codeSystem="local" code="*" /> <referenceRange> <observationRange> <text>4.00-6.00</text> </ observationRange> </referenceRange> </observation> </ component> <component> <observation moodCode="EVN" classCode="OBS"> <templateId root="16.840.1.306748.11.29.21.4.2" /> <id nullFlavor="NA" /> <code codeSystem="local" code="RDW" displayName=" RED CELL DISTRIBUTION WIDTH" /> <statusCode code="completed" /> <effectiveTime value="251646003019" /> <value unit="%" xsi:type= "PQ" value="16.2" /> <interpretationCode codeSystem="local" code="*" / > <referenceRange> <observationRange> <text> 11.0-15.6</text> </observationRange> </referenceRange> </observation> </component> <component> <observation moodCode="EVN" classCode="OBS"> <templateId root= "03.28.840.1.222625.10.20.22.4.2" /> <id nullFlavor="NA" /> < code codeSystem="local" code="WBC" displayName="WHITE BLOOD CELL" /> < statusCode code="completed" /> <effectiveTime value="" /> <value unit="k/cumm" xsi:type="PQ" value="7.5" /> < referenceRange> <observationRange> <text>5.0-10.0</text > </observationRange> </referenceRange> </observation > </component> <component> <observation moodCode="EVN" classCode="OBS"> <templateId root="840.1.143379.1022.4.2" /> <id nullFlavor="NA" /> <code codeSystem="local" code="HGBT" displayName="HEMOGLOBIN" /> <statusCode code="completed" /> < effectiveTime value="" /> <value unit="gm/dL" xsi:type="PQ " value="10.8" /> <interpretationCode codeSystem="local" code="*" /> <referenceRange> <observationRange> <text>12.0- 16.0</text> </observationRange> </referenceRange> </ observation> </component> <component> <observation moodCode= "EVN" classCode="OBS"> <templateId root="840.1.697001.10.2022.4.2 " /> <id nullFlavor="NA" /> <code codeSystem="local" code= "HCTT" displayName="HEMATOCRIT" /> <statusCode code="completed" /> <effectiveTime value="" /> <value unit="%" xsi: type="PQ" value="34.2" /> <interpretationCode codeSystem="local" code= "*" /> <referenceRange> <observationRange> < text>37.0-47.0</text> </observationRange> </referenceRange> </observation> </component> <component> <observation moodCode="EVN" classCode="OBS"> <templateId root= "03.28.840.1.073004.10..22.4.2" /> <id nullFlavor="NA" /> < code codeSystem="local" code="PLT" displayName="PLATELET COUNT" /> < statusCode code="completed" /> <effectiveTime value="197172638456" /> <value unit="k/cumm" xsi:type="PQ" value="132" /> < interpretationCode codeSystem="local" code="*" /> <referenceRange> <observationRange> <text>150-400</text> </ observationRange> </referenceRange> </observation> </ component> </organizer> </entry> <entry> <organizer moodCode="EVN" classCode="BATTERY"> <templateId root="840.1.458489.10...4.1" /> <id nullFlavor="NA" /> <code codeSystem="local" code="PT" displayName= "PROTHROMBIN TIME WITH INR" /> <statusCode code="completed" /> < component> <observation moodCode="EVN" classCode="OBS"> < templateId root="03.28.840.1.925478.10..22.4.2" /> <id nullFlavor="NA " /> <code codeSystem="local" code="INRX" displayName="INTERNATIONAL NORMAL RATIO" /> <statusCode code="completed" /> < effectiveTime value="023676678731" /> <value unit="" xsi:type="PQ" value="1.6" /> <interpretationCode codeSystem="local" code="*" /> <referenceRange> <observationRange> <text>0.9-1.1</ text> </observationRange> </referenceRange> </ observation> </component> <component> <observation moodCode= "EVN" classCode="OBS"> <templateId root="03.28.840.1.332941.10.2022.4.2 " /> <id nullFlavor="NA" /> <code codeSystem="local" code= "PTPAT" displayName="PROTHROMBIN TIME" /> <statusCode code="completed" /> <effectiveTime value="425061372038" /> <value unit="sec" xsi:type="PQ" value="17.9" /> <interpretationCode codeSystem="local" code="*" /> <referenceRange> <observationRange> <text>10.0-12.8</text> </observationRange> </ referenceRange> </observation> </component> </organizer> </entry > <entry> <organizer moodCode="EVN" classCode="BATTERY"> <templateId root="840.1.791129.11.29.21.4.1" /> <id nullFlavor="NA" /> <code codeSystem="local" code="PT" displayName="PROTHROMBIN TIME WITH INR" /> < statusCode code="completed" /> <component> <observation moodCode= "EVN" classCode="OBS"> <templateId root="03.28.840.1.107942.102022.4.2 " /> <id nullFlavor="NA" /> <code codeSystem="local" code= "INRX" displayName="INTERNATIONAL NORMAL RATIO" /> <statusCode code= "completed" /> <effectiveTime value="158938034077" /> <value unit="" xsi:type="PQ" value="1.6" /> <interpretationCode codeSystem= "local" code="*" /> <referenceRange> <observationRange> <text>0.9-1.1</text> </observationRange> </ referenceRange> </observation> </component> <component> <observation moodCode="EVN" classCode="OBS"> <templateId root= "840.1.877026.10.2022.4.2" /> <id nullFlavor="NA" /> < code codeSystem="local" code="PTPAT" displayName="PROTHROMBIN TIME" /> <statusCode code="completed" /> <effectiveTime value="" /> <value unit="sec" xsi:type="PQ" value="18.1" /> < interpretationCode codeSystem="local" code="*" /> <referenceRange> <observationRange> <text>10.0-12.8</text> </ observationRange> </referenceRange> </observation> </ component> </organizer> </entry> <entry> <organizer moodCode="EVN" classCode="BATTERY"> <templateId root="840.1.369753.1022.4.1" /> <id nullFlavor="NA" /> <code codeSystem="local" code="METAB" displayName="METABOLIC PANEL, BASIC" /> <statusCode code="completed" /> <component> <observation moodCode="EVN" classCode="OBS"> < templateId root="840.1.797769.10.2022.4.2" /> <id nullFlavor="NA " /> <code codeSystem="local" code="K" displayName="POTASSIUM" /> <statusCode code="completed" /> <effectiveTime value=" " /> <value unit="mmol/L" xsi:type="PQ" value="3.9" /> < referenceRange> <observationRange> <text>3.5-5.3</text> </observationRange> </referenceRange> </observation > </component> <component> <observation moodCode="EVN" classCode="OBS"> <templateId root="03.28.840.1.826971.10..4.2" /> <id nullFlavor="NA" /> <code codeSystem="local" code="eGFR" displayName="EST GFR (MDRD)" /> <statusCode code="completed" /> <effectiveTime value="" /> <value unit="mL/min" xsi:type ="PQ" value="> 60" /> <referenceRange> <observationRange > <text>> 59</text> </observationRange> </ referenceRange> </observation> </component> <component> <observation moodCode="EVN" classCode="OBS"> <templateId root= "03.28.840.1.495363.11.29.21.4.2" /> <id nullFlavor="NA" /> < code codeSystem="local" code="GAP" displayName="ANION GAP" /> < statusCode code="completed" /> <effectiveTime value="" /> <value unit="mmol/L" xsi:type="PQ" value="9" /> < referenceRange> <observationRange> <text>5-15</text> </observationRange> </referenceRange> </observation> </component> <component> <observation moodCode="EVN" classCode= "OBS"> <templateId root="03.28.840.1.349956...4.2" /> < id nullFlavor="NA" /> <code codeSystem="local" code="eCrCl" displayName ="EST CrCl (CG)" /> <statusCode code="completed" /> < effectiveTime value="" /> <value unit="mL/min" xsi:type="PQ " value="> 60" /> <referenceRange> <observationRange> <text>> 59</text> </observationRange> </ referenceRange> </observation> </component> <component> <observation moodCode="EVN" classCode="OBS"> <templateId root= "03.28.840.1.290012.10.22.4.2" /> <id nullFlavor="NA" /> < code codeSystem="local" code="GLU" displayName="GLUCOSE" /> < statusCode code="completed" /> <effectiveTime value="" /> <value unit="mg/dL" xsi:type="PQ" value="88" /> < referenceRange> <observationRange> <text>70-99</text> </observationRange> </referenceRange> </observation> </component> <component> <observation moodCode="EVN" classCode= "OBS"> <templateId root="03.28.840.1.880286..22.4.2" /> < id nullFlavor="NA" /> <code codeSystem="local" code="CA" displayName= "CALCIUM" /> <statusCode code="completed" /> <effectiveTime value="" /> <value unit="mg/dL" xsi:type="PQ" value="8.4" / > <interpretationCode codeSystem="local" code="*" /> < referenceRange> <observationRange> <text>8.5-10.1</text > </observationRange> </referenceRange> </observation > </component> <component> <observation moodCode="EVN" classCode="OBS"> <templateId root="03.28.840.1.681830.10.2022.4.2" /> <id nullFlavor="NA" /> <code codeSystem="local" code="BUN" displayName="BLOOD UREA NITROGEN" /> <statusCode code="completed" /> <effectiveTime value="" /> <value unit="mg/dL" xsi: type="PQ" value="11" /> <referenceRange> <observationRange> <text>7-20</text> </observationRange> </ referenceRange> </observation> </component> <component> <observation moodCode="EVN" classCode="OBS"> <templateId root= "16.840.1.853026.10..22.4.2" /> <id nullFlavor="NA" /> < code codeSystem="local" code="CREAT" displayName="CREATININE" /> < statusCode code="completed" /> <effectiveTime value="" /> <value unit="mg/dL" xsi:type="PQ" value="0.6" /> < referenceRange> <observationRange> <text>0.6-1.0</text> </observationRange> </referenceRange> </observation > </component> <component> <observation moodCode="EVN" classCode="OBS"> <templateId root="03.28.840.1.954608.10.20.22.4.2" /> <id nullFlavor="NA" /> <code codeSystem="local" code="NA" displayName="SODIUM" /> <statusCode code="completed" /> < effectiveTime value="" /> <value unit="mmol/L" xsi:type="PQ " value="145" /> <referenceRange> <observationRange> <text>135-148</text> </observationRange> </ referenceRange> </observation> </component> <component> <observation moodCode="EVN" classCode="OBS"> <templateId root= "840.1.079416.10.4.2" /> <id nullFlavor="NA" /> < code codeSystem="local" code="CL" displayName="CHLORIDE" /> < statusCode code="completed" /> <effectiveTime value="" /> <value unit="mmol/L" xsi:type="PQ" value="109" /> < referenceRange> <observationRange> <text>98-110</text> </observationRange> </referenceRange> </observation> </component> <component> <observation moodCode="EVN" classCode ="OBS"> <templateId root="840.1.703726.11.29.21.4.2" /> < id nullFlavor="NA" /> <code codeSystem="local" code="CO2" displayName= "CARBON DIOXIDE" /> <statusCode code="completed" /> < effectiveTime value="297018756332" /> <value unit="mmol/L" xsi:type="PQ " value="27" /> <referenceRange> <observationRange> <text>21-32</text> </observationRange> </ referenceRange> </observation> </component> </organizer> </entry > <entry> <organizer moodCode="EVN" classCode="BATTERY"> <templateId root="840.1.171798.11.29.21.4.1" /> <id nullFlavor="NA" /> <code codeSystem="local" code="DNA7520" displayName="Protime " /> <statusCode code="completed" /> <component> <observation moodCode="EVN" classCode="OBS"> <templateId root="840.1.899244.1022.4.2" /> <id nullFlavor="NA" /> <code codeSystem="local" code="Ema976" displayName="INR" /> <statusCode code="completed" /> < effectiveTime value="420626629462" /> <value unit="" xsi:type="PQ" value="2.7" /> <referenceRange> <observationRange> <text>1.0-4.0</text> </observationRange> </ referenceRange> </observation> </component> <component> <observation moodCode="EVN" classCode="OBS"> <templateId root= "840.1.050361.11.29.21.4.2" /> <id nullFlavor="NA" /> < code codeSystem="local" code="Ppx9546" displayName="Protime" /> < statusCode code="completed" /> <effectiveTime value="606630560807" /> <value unit="Sec" xsi:type="PQ" value="32.9" /> < interpretationCode codeSystem="local" code="H" /> <referenceRange> <observationRange> <text>9.9-12.8</text> </ observationRange> </referenceRange> </observation> </ component> </organizer> </entry> <entry> <organizer moodCode="EVN" classCode="BATTERY"> <templateId root="840.1.636722.11.29.21.4.1" /> <id nullFlavor="NA" /> <code codeSystem="local" code="[id number]" displayName="Protime " /> <statusCode code="completed" /> <component> <observation moodCode="EVN" classCode="OBS"> <templateId root= "840.1.000747.2022.4.2" /> <id nullFlavor="NA" /> < code codeSystem="local" code="Zna768" displayName="INR" /> <statusCode code="completed" /> <effectiveTime value="701767861129" /> < value unit="" xsi:type="PQ" value="4.1" /> <interpretationCode codeSystem="local" code="H" /> <referenceRange> < observationRange> <text>1.0-4.0</text> </ observationRange> </referenceRange> </observation> </ component> <component> <observation moodCode="EVN" classCode="OBS"> <templateId root="840.1.263825.22.4.2" /> <id nullFlavor="NA" /> <code codeSystem="local" code="Zun4099" displayName= "Protime" /> <statusCode code="completed" /> <effectiveTime value="898926513770" /> <value unit="Sec" xsi:type="PQ" value="51.1" / > <interpretationCode codeSystem="local" code="H" /> < referenceRange> <observationRange> <text>9.9-12.8</text > </observationRange> </referenceRange> </observation > </component> </organizer> </entry> <entry> <organizer moodCode= "EVN" classCode="BATTERY"> <templateId root="840.1.071750.11.29.21.4.1 " /> <id nullFlavor="NA" /> <code codeSystem="local" code="AGN2651" displayName="Protime " /> <statusCode code="completed" /> <component> <observation moodCode="EVN" classCode="OBS"> <templateId root= "840.1.309969.102022.4.2" /> <id nullFlavor="NA" /> < code codeSystem="local" code="Pwk580" displayName="INR" /> <statusCode code="completed" /> <effectiveTime value="516750178559" /> < value unit="" xsi:type="PQ" value="1.7" /> <referenceRange> <observationRange> <text>1.0-4.0</text> </ observationRange> </referenceRange> </observation> </ component> <component> <observation moodCode="EVN" classCode="OBS"> <templateId root="03.28.840.1.705405.11.29.21.4.2" /> <id nullFlavor="NA" /> <code codeSystem="local" code="Usg9440" displayName= "Protime" /> <statusCode code="completed" /> <effectiveTime value="647448616869" /> <value unit="Sec" xsi:type="PQ" value="21.0" / > <interpretationCode codeSystem="local" code="H" /> < referenceRange> <observationRange> <text>9.9-12.8</text > </observationRange> </referenceRange> </observation > </component> </organizer> </entry> <entry> <organizer moodCode= "EVN" classCode="BATTERY"> <templateId root="03.28.840.1.336212.11.29.21.4.1 " /> <id nullFlavor="NA" /> <code codeSystem="local" code="NJR1871" displayName="Protime " /> <statusCode code="completed" /> <component> <observation moodCode="EVN" classCode="OBS"> <templateId root= "03.28.840.1.149979.11.29.21.4.2" /> <id nullFlavor="NA" /> < code codeSystem="local" code="Qor419" displayName="INR" /> <statusCode code="completed" /> <effectiveTime value="620790502531" /> < value unit="" xsi:type="PQ" value="1.9" /> <referenceRange> <observationRange> <text>1.0-4.0</text> </ observationRange> </referenceRange> </observation> </ component> <component> <observation moodCode="EVN" classCode="OBS"> <templateId root="03.28.840.1.709138.10.4.2" /> <id nullFlavor="NA" /> <code codeSystem="local" code="[id number]" displayName= "Protime" /> <statusCode code="completed" /> <effectiveTime value="010495759973" /> <value unit="Sec" xsi:type="PQ" value="23.5" / > <interpretationCode codeSystem="local" code="H" /> < referenceRange> <observationRange> <text>9.9-12.8</text > </observationRange> </referenceRange> </observation > </component> </organizer> </entry> <entry> <organizer moodCode= "EVN" classCode="BATTERY"> <templateId root="03.28.840.1.626812.11.29.21.4.1 " /> <id nullFlavor="NA" /> <code codeSystem="local" code="ORD3" displayName="Comprehensive Metabolic Panel" /> <statusCode code="completed " /> <component> <observation moodCode="EVN" classCode="OBS"> <templateId root="03.28.840.1.650327.11.29.21.4.2" /> <id nullFlavor ="NA" /> <code codeSystem="local" code="Res44" displayName="Albumin" / > <statusCode code="completed" /> <effectiveTime value= "618266168715" /> <value unit="g/dL" xsi:type="PQ" value="4.2" /> <referenceRange> <observationRange> <text>3.6-5.1</ text> </observationRange> </referenceRange> </ observation> </component> <component> <observation moodCode= "EVN" classCode="OBS"> <templateId root="216.840.1.676318.10..4.2 " /> <id nullFlavor="NA" /> <code codeSystem="local" code= "Res45" displayName="ALP" /> <statusCode code="completed" /> < effectiveTime value="419182884067" /> <value unit="U/L" xsi:type="PQ" value="112" /> <referenceRange> <observationRange> <text>35-130</text> </observationRange> </ referenceRange> </observation> </component> <component> <observation moodCode="EVN" classCode="OBS"> <templateId root= "03.28.840.1.963625.11.29.21.4.2" /> <id nullFlavor="NA" /> < code codeSystem="local" code="Res46" displayName="ALT" /> <statusCode code="completed" /> <effectiveTime value="931917168874" /> < value unit="U/L" xsi:type="PQ" value="15" /> <referenceRange> <observationRange> <text>6-45</text> </ observationRange> </referenceRange> </observation> </ component> <component> <observation moodCode="EVN" classCode="OBS"> <templateId root="16.840.1.967587.10.22.4.2" /> <id nullFlavor="NA" /> <code codeSystem="local" code="Res61" displayName= "Anion Gap" /> <statusCode code="completed" /> <effectiveTime value="598041409287" /> <value unit="" xsi:type="PQ" value="18" /> <interpretationCode codeSystem="local" code="H" /> < referenceRange> <observationRange> <text>6-14</text> </observationRange> </referenceRange> </observation> </component> <component> <observation moodCode="EVN" classCode= "OBS"> <templateId root="03.28.840.1.196234.10..4.2" /> < id nullFlavor="NA" /> <code codeSystem="local" code="Res48" displayName ="AST" /> <statusCode code="completed" /> <effectiveTime value ="571535429767" /> <value unit="U/L" xsi:type="PQ" value="21" /> <referenceRange> <observationRange> <text>2-40</text > </observationRange> </referenceRange> </observation > </component> <component> <observation moodCode="EVN" classCode="OBS"> <templateId root="03.28.840.1.496911.11.29.21.4.2" /> <id nullFlavor="NA" /> <code codeSystem="local" code="Res26" displayName="BUN" /> <statusCode code="completed" /> < effectiveTime value="588770026407" /> <value unit="mg/dL" xsi:type="PQ " value="17" /> <referenceRange> <observationRange> <text>5-25</text> </observationRange> </referenceRange > </observation> </component> <component> <observation moodCode="EVN" classCode="OBS"> <templateId root= "03.28.840.1.440959.11.29.21.4.2" /> <id nullFlavor="NA" /> < code codeSystem="local" code="Res5" displayName="Calcium" /> < statusCode code="completed" /> <effectiveTime value="760207655548" /> <value unit="mg/dL" xsi:type="PQ" value="9.5" /> < referenceRange> <observationRange> <text>8.3-10.4</text > </observationRange> </referenceRange> </observation > </component> <component> <observation moodCode="EVN" classCode="OBS"> <templateId root="2.16.840.1.934228...4.2" /> <id nullFlavor="NA" /> <code codeSystem="local" code="Res21" displayName="Chloride" /> <statusCode code="completed" /> < effectiveTime value="013405596040" /> <value unit="mmol/L" xsi:type="PQ " value="99" /> <referenceRange> <observationRange> <text>95-114</text> </observationRange> </ referenceRange> </observation> </component> <component> <observation moodCode="EVN" classCode="OBS"> <templateId root= "2.16.840.1.149811.10..4.2" /> <id nullFlavor="NA" /> < code codeSystem="local" code="Res49" displayName="CO2" /> <statusCode code="completed" /> <effectiveTime value="618378637485" /> < value unit="mEq/L" xsi:type="PQ" value="29" /> <referenceRange> <observationRange> <text>22-33</text> </ observationRange> </referenceRange> </observation> </ component> <component> <observation moodCode="EVN" classCode="OBS"> <templateId root="16.840.1.883595.10.20.22.4.2" /> <id nullFlavor="NA" /> <code codeSystem="local" code="Rce281" displayName= "Creat" /> <statusCode code="completed" /> <effectiveTime value="394217932951" /> <value unit="mg/dL" xsi:type="PQ" value="0.91" /> <referenceRange> <observationRange> <text> 0.50-1.50</text> </observationRange> </referenceRange> </observation> </component> <component> <observation moodCode="EVN" classCode="OBS"> <templateId root= "03.28.840.1.535769.10.4.2" /> <id nullFlavor="NA" /> < code codeSystem="local" code="Xhi345" displayName="eGFR" /> < statusCode code="completed" /> <effectiveTime value="406668495605" /> <value unit="mL/min/1.73m2" xsi:type="PQ" value="61" /> < referenceRange> <observationRange> <text>>59</text> </observationRange> </referenceRange> </observation> </component> <component> <observation moodCode="EVN" classCode ="OBS"> <templateId root="03.28.840.1.141981.10.2022.4.2" /> < id nullFlavor="NA" /> <code codeSystem="local" code="Res7" displayName= "Globulin" /> <statusCode code="completed" /> <effectiveTime value="683135150738" /> <value unit="g/dL" xsi:type="PQ" value="3.0" / > <referenceRange> <observationRange> <text>2.3 -3.5</text> </observationRange> </referenceRange> </ observation> </component> <component> <observation moodCode= "EVN" classCode="OBS"> <templateId root="03.28.840.1.066785.10.4.2 " /> <id nullFlavor="NA" /> <code codeSystem="local" code= "Res60" displayName="Glucose" /> <statusCode code="completed" /> <effectiveTime value="110733547981" /> <value unit="mg/dL" xsi:type ="PQ" value="99" /> <referenceRange> <observationRange> <text>70-110</text> </observationRange> </ referenceRange> </observation> </component> <component> <observation moodCode="EVN" classCode="OBS"> <templateId root= "03.28.840.1.241922.11.29.21.4.2" /> <id nullFlavor="NA" /> < code codeSystem="local" code="Res52" displayName="Osmo" /> <statusCode code="completed" /> <effectiveTime value="357182320019" /> < value unit="" xsi:type="PQ" value="295" /> <referenceRange> <observationRange> <text>280-295</text> </ observationRange> </referenceRange> </observation> </ component> <component> <observation moodCode="EVN" classCode="OBS"> <templateId root="03.28.840.1.195503.10.4.2" /> <id nullFlavor="NA" /> <code codeSystem="local" code="Res20" displayName= "Potassium" /> <statusCode code="completed" /> <effectiveTime value="086760216627" /> <value unit="mmol/L" xsi:type="PQ" value="3.6" /> <referenceRange> <observationRange> <text> 3.5-5.3</text> </observationRange> </referenceRange> </observation> </component> <component> <observation moodCode= "EVN" classCode="OBS"> <templateId root="216.840.1.331045.10..22.4.2 " /> <id nullFlavor="NA" /> <code codeSystem="local" code= "Res19" displayName="Sodium" /> <statusCode code="completed" /> <effectiveTime value="081227723148" /> <value unit="mmol/L" xsi:type ="PQ" value="142" /> <referenceRange> <observationRange> <text>134-148</text> </observationRange> </ referenceRange> </observation> </component> <component> <observation moodCode="EVN" classCode="OBS"> <templateId root= "03.28.840.1.525310.10.22.4.2" /> <id nullFlavor="NA" /> < code codeSystem="local" code="Res51" displayName="TBil" /> <statusCode code="completed" /> <effectiveTime value="667103659711" /> < value unit="mg/dL" xsi:type="PQ" value="0.4" /> <referenceRange> <observationRange> <text>0.2-1.2</text> </ observationRange> </referenceRange> </observation> </ component> <component> <observation moodCode="EVN" classCode="OBS"> <templateId root="03.28.840.1.729541.10.20.22.4.2" /> <id nullFlavor="NA" /> <code codeSystem="local" code="Res24" displayName= "TP" /> <statusCode code="completed" /> <effectiveTime value= "015822542347" /> <value unit="g/dL" xsi:type="PQ" value="7.2" /> <referenceRange> <observationRange> <text>6.0-8.3</ text> </observationRange> </referenceRange> </ observation> </component> </organizer> </entry> <entry> <organizer moodCode="EVN" classCode="BATTERY"> <templateId root= "216.840.1.428959.10..22.4.1" /> <id nullFlavor="NA" /> <code codeSystem="local" code="FDZ8724" displayName="Protime " /> <statusCode code="completed" /> <component> <observation moodCode="EVN" classCode="OBS"> <templateId root="216.840.1.760151...4.2" /> <id nullFlavor="NA" /> <code codeSystem="local" code="Pba173" displayName="INR" /> <statusCode code="completed" /> < effectiveTime value="346498731234" /> <value unit="" xsi:type="PQ" value="2.7" /> <referenceRange> <observationRange> <text>1.0-4.0</text> </observationRange> </ referenceRange> </observation> </component> <component> <observation moodCode="EVN" classCode="OBS"> <templateId root= "16.840.1.921323...4.2" /> <id nullFlavor="NA" /> < code codeSystem="local" code="Ksh6034" displayName="Protime" /> < statusCode code="completed" /> <effectiveTime value="884029745884" /> <value unit="Sec" xsi:type="PQ" value="33.7" /> < interpretationCode codeSystem="local" code="H" /> <referenceRange> <observationRange> <text>9.9-12.8</text> </ observationRange> </referenceRange> </observation> </ component> </organizer> </entry> <entry> <organizer moodCode="EVN" classCode="BATTERY"> <templateId root="216.840.1.169935.10...4.1" /> <id nullFlavor="NA" /> <code codeSystem="local" code="ORD68" displayName="Urinalysis" /> <statusCode code="completed" /> <component > <observation moodCode="EVN" classCode="OBS"> <templateId root= "216.840.1.233489...4.2" /> <id nullFlavor="NA" /> < code codeSystem="local" code="She7807" displayName="Icotest" /> < statusCode code="completed" /> <effectiveTime value="448369400336" /> <value unit="" xsi:type="PQ" value="N/A" /> < interpretationCode codeSystem="local" code="A" /> <referenceRange> <observationRange> <text>Negative</text> </ observationRange> </referenceRange> </observation> </ component> <component> <observation moodCode="EVN" classCode="OBS"> <templateId root="216.840.1.248895.10..4.2" /> <id nullFlavor="NA" /> <code codeSystem="local" code="Rto517" displayName= "Urine Volume" /> <statusCode code="completed" /> < effectiveTime value="610952643627" /> <value unit="" xsi:type="PQ" value="Urine Volume Sufficient (10mL)" /> <referenceRange> < observationRange> <text /> </observationRange> </referenceRange> </observation> </component> <component> <observation moodCode="EVN" classCode="OBS"> <templateId root= "216.840.1.337805.10.20.22.4.2" /> <id nullFlavor="NA" /> < code codeSystem="local" code="Vkc737" displayName="Urine-Appearance" /> <statusCode code="completed" /> <effectiveTime value="305864257852" / > <value unit="" xsi:type="PQ" value="Clear" /> < referenceRange> <observationRange> <text>Clear</text> </observationRange> </referenceRange> </observation> </component> <component> <observation moodCode="EVN" classCode= "OBS"> <templateId root="03.28.840.1.664764.10.22.4.2" /> < id nullFlavor="NA" /> <code codeSystem="local" code="Wyc761" displayName="Urine-Bacteria" /> <statusCode code="completed" /> <effectiveTime value="358017712103" /> <value unit="" xsi:type="PQ" value="1+" /> <interpretationCode codeSystem="local" code="A" /> <referenceRange> <observationRange> <text> </text> </observationRange> </referenceRange> </observation> </component> <component> <observation moodCode="EVN" classCode ="OBS"> <templateId root="03.28.840.1.857729.10.2022.4.2" /> < id nullFlavor="NA" /> <code codeSystem="local" code="Wrn646" displayName="Urine-Bilirubin" /> <statusCode code="completed" /> <effectiveTime value="542751207793" /> <value unit="" xsi:type="PQ " value="Negative" /> <referenceRange> <observationRange> <text>Negative</text> </observationRange> </ referenceRange> </observation> </component> <component> <observation moodCode="EVN" classCode="OBS"> <templateId root= "216.840.1.096045.10.4.2" /> <id nullFlavor="NA" /> < code codeSystem="local" code="Yym461" displayName="Urine-Blood" /> < statusCode code="completed" /> <effectiveTime value="848268458721" /> <value unit="" xsi:type="PQ" value="Negative" /> < referenceRange> <observationRange> <text>Negative</text > </observationRange> </referenceRange> </observation > </component> <component> <observation moodCode="EVN" classCode="OBS"> <templateId root="216.840.1.038211.11.29.21.4.2" /> <id nullFlavor="NA" /> <code codeSystem="local" code="Hsh329" displayName="Urine-Color" /> <statusCode code="completed" /> < effectiveTime value="131773663152" /> <value unit="" xsi:type="PQ" value="Yellow" /> <referenceRange> <observationRange> <text>Colorless-Lt. Yellow</text> </observationRange> </referenceRange> </observation> </component> <component> <observation moodCode="EVN" classCode="OBS"> <templateId root= "216.840.1.826200.11.29.21.4.2" /> <id nullFlavor="NA" /> < code codeSystem="local" code="Ntr038" displayName="Urine-Epithelial Cells" /> <statusCode code="completed" /> <effectiveTime value= "547941483884" /> <value unit="" xsi:type="PQ" value="0-5/HPF" /> <interpretationCode codeSystem="local" code="A" /> <referenceRange > <observationRange> <text> </text> </ observationRange> </referenceRange> </observation> </ component> <component> <observation moodCode="EVN" classCode="OBS"> <templateId root="2.16.840.1.152256.10..4.2" /> <id nullFlavor="NA" /> <code codeSystem="local" code="Tkn062" displayName= "Urine-Glucose" /> <statusCode code="completed" /> < effectiveTime value="335900518737" /> <value unit="" xsi:type="PQ" value="Negative" /> <referenceRange> <observationRange> <text>Negative</text> </observationRange> </ referenceRange> </observation> </component> <component> <observation moodCode="EVN" classCode="OBS"> <templateId root= "2.16.840.1.491566.10.22.4.2" /> <id nullFlavor="NA" /> < code codeSystem="local" code="Avr585" displayName="Urine-Ketones" /> < statusCode code="completed" /> <effectiveTime value="999064938738" /> <value unit="" xsi:type="PQ" value="Negative" /> < referenceRange> <observationRange> <text>Negative</text > </observationRange> </referenceRange> </observation > </component> <component> <observation moodCode="EVN" classCode="OBS"> <templateId root="16.840.1.653621.10..22.4.2" /> <id nullFlavor="NA" /> <code codeSystem="local" code="Xcb925" displayName="Urine-Leukocytes" /> <statusCode code="completed" /> <effectiveTime value="259123897055" /> <value unit="" xsi:type="PQ " value="Trace" /> <interpretationCode codeSystem="local" code="A" /> <referenceRange> <observationRange> <text> Negative</text> </observationRange> </referenceRange> </observation> </component> <component> <observation moodCode ="EVN" classCode="OBS"> <templateId root= "03.28.840.1.898754.10..4.2" /> <id nullFlavor="NA" /> < code codeSystem="local" code="Cpu590" displayName="Urine-Nitrite" /> < statusCode code="completed" /> <effectiveTime value="466328953205" /> <value unit="" xsi:type="PQ" value="Negative" /> < referenceRange> <observationRange> <text>Negative</text > </observationRange> </referenceRange> </observation > </component> <component> <observation moodCode="EVN" classCode="OBS"> <templateId root="16.840.1.493915.10..22.4.2" /> <id nullFlavor="NA" /> <code codeSystem="local" code="Xvg245" displayName="Urine-Other" /> <statusCode code="completed" /> < effectiveTime value="106644359186" /> <value unit="" xsi:type="PQ" value=" Urine Saved if Culture Needed (48hrs from time of collection)" /> <interpretationCode codeSystem="local" code="A" /> <referenceRange > <observationRange> <text> </text> </ observationRange> </referenceRange> </observation> </ component> <component> <observation moodCode="EVN" classCode="OBS"> <templateId root="216.840.1.297418.10..4.2" /> <id nullFlavor="NA" /> <code codeSystem="local" code="Qap327" displayName= "Urine-pH" /> <statusCode code="completed" /> <effectiveTime value="713066712294" /> <value unit="" xsi:type="PQ" value="8.5" /> <referenceRange> <observationRange> <text>5-8.5</ text> </observationRange> </referenceRange> </ observation> </component> <component> <observation moodCode= "EVN" classCode="OBS"> <templateId root="03.28.840.1.208695.10.4.2 " /> <id nullFlavor="NA" /> <code codeSystem="local" code= "Dsj703" displayName="Urine-Protein" /> <statusCode code="completed" / > <effectiveTime value="093231409086" /> <value unit="" xsi: type="PQ" value="Negative" /> <referenceRange> < observationRange> <text>Negative</text> </ observationRange> </referenceRange> </observation> </ component> <component> <observation moodCode="EVN" classCode="OBS"> <templateId root="03.28.840.1.414066.10.4.2" /> <id nullFlavor="NA" /> <code codeSystem="local" code="Fio061" displayName= "Urine-RBC" /> <statusCode code="completed" /> <effectiveTime value="617182394019" /> <value unit="" xsi:type="PQ" value="Few/HPF" / > <interpretationCode codeSystem="local" code="A" /> < referenceRange> <observationRange> <text> </text> </observationRange> </referenceRange> </observation> </component> <component> <observation moodCode="EVN" classCode="OBS "> <templateId root="216.840.1.686616.11.29.21.4.2" /> <id nullFlavor="NA" /> <code codeSystem="local" code="Gfs277" displayName= "Urine-Specific [place]" /> <statusCode code="completed" /> < effectiveTime value="557670347305" /> <value unit="" xsi:type="PQ" value="1.015" /> <referenceRange> <observationRange> <text>1.000-1.030</text> </observationRange> </ referenceRange> </observation> </component> <component> <observation moodCode="EVN" classCode="OBS"> <templateId root= "216.840.1.883789.11.29.21.4.2" /> <id nullFlavor="NA" /> < code codeSystem="local" code="Tqg827" displayName="Urine-WBC" /> < statusCode code="completed" /> <effectiveTime value="997927995033" /> <value unit="" xsi:type="PQ" value="0-2/HPF" /> < interpretationCode codeSystem="local" code="A" /> <referenceRange> <observationRange> <text> </text> </ observationRange> </referenceRange> </observation> </ component> <component> <observation moodCode="EVN" classCode="OBS"> <templateId root="16.840.1.973143.11.29.21.4.2" /> <id nullFlavor="NA" /> <code codeSystem="local" code="Zyx039" displayName= "Urobilinogen" /> <statusCode code="completed" /> < effectiveTime value="726335999584" /> <value unit="" xsi:type="PQ" value="0.2 E.U./dL" /> <interpretationCode codeSystem="local" code="A" /> <referenceRange> <observationRange> <text> 0.2-1.0</text> </observationRange> </referenceRange> </observation> </component> </organizer> </entry> <entry> < organizer moodCode="EVN" classCode="BATTERY"> <templateId root= "216.840.1.425707.11.29.21.4.1" /> <id nullFlavor="NA" /> <code codeSystem="local" code="GFK4389" displayName="Other Culture" /> < statusCode code="completed" /> <component> <observation moodCode= "EVN" classCode="OBS"> <templateId root="216.840.1.932203...4.2 " /> <id nullFlavor="NA" /> <code codeSystem="local" code= "Lfr5192" displayName="PRELIM CULTURE RESULTS" /> <statusCode code= "completed" /> <effectiveTime value="099016606866" /> <value unit="" xsi:type="PQ" value="Abundant Gram Negative, 2nd organism isolated DALTON/ ID to [id number] Diptheroids, No Further Workup Done" /> <referenceRange> <observationRange> <text /> </observationRange> </referenceRange> </observation> </ component> <component> <observation moodCode="EVN" classCode="OBS"> <templateId root="840.1.589722.10..22.4.2" /> <id nullFlavor="NA" /> <code codeSystem="local" code="Thm7692" displayName= "MEDIA PLATED" /> <statusCode code="completed" /> < effectiveTime value="510781027177" /> <value unit="" xsi:type="PQ" value="Setup at 11:41 on 08/20/2016" /> <referenceRange> < observationRange> <text /> </observationRange> </referenceRange> </observation> </component> </organizer> </ entry> <entry> <organizer moodCode="EVN" classCode="BATTERY"> < templateId root="216.840.1.665790.10...4.1" /> <id nullFlavor="NA" /> <code codeSystem="local" code="Veb76094" displayName="Sensi" /> < statusCode code="completed" /> <component> <observation moodCode= "EVN" classCode="OBS"> <templateId root="216.840.1.964293.10...4.2 " /> <id nullFlavor="NA" /> <code codeSystem="local" code= "Huy42307" displayName="FINAL CULTURE RESULTS" /> <statusCode code= "completed" /> <effectiveTime value="721664596396" /> <value unit="" xsi:type="PQ" value="Pseudomonas aeruginosa (Isolate 1)" /> < referenceRange> <observationRange> <text /> < /observationRange> </referenceRange> </observation> </ component> <component> <observation moodCode="EVN" classCode="OBS"> <templateId root="216.840.1.603559.10..22.4.2" /> <id nullFlavor="NA" /> <code codeSystem="local" code="Pea7295" displayName= "Ampicillin/Sulbactam" /> <statusCode code="completed" /> < effectiveTime value="282602832326" /> <value unit="" xsi:type="PQ" value=">16/8" /> <referenceRange> <observationRange> <text /> </observationRange> </referenceRange> </observation> </component> <component> <observation moodCode="EVN" classCode="OBS"> <templateId root= "216.840.1.832550.10..22.4.2" /> <id nullFlavor="NA" /> < code codeSystem="local" code="Iqt0058" displayName="Ampicillin" /> < statusCode code="completed" /> <effectiveTime value="202174486082" /> <value unit="" xsi:type="PQ" value=">16" /> <referenceRange > <observationRange> <text /> </ observationRange> </referenceRange> </observation> </ component> <component> <observation moodCode="EVN" classCode="OBS"> <templateId root="03.28.840.1.379633.10..22.4.2" /> <id nullFlavor="NA" /> <code codeSystem="local" code="Ubb2552" displayName= "Amoxicillin/K Clavulanate" /> <statusCode code="completed" /> <effectiveTime value="441747431571" /> <value unit="" xsi:type="PQ" value=">16/8" /> <referenceRange> <observationRange> <text /> </observationRange> </referenceRange> </observation> </component> <component> <observation moodCode="EVN" classCode="OBS"> <templateId root= "03.28.840.1.397194.11.29.21.4.2" /> <id nullFlavor="NA" /> < code codeSystem="local" code="Erk3307" displayName="Ceftriaxone" /> < statusCode code="completed" /> <effectiveTime value="177567645139" /> <value unit="" xsi:type="PQ" value="32" /> <referenceRange> <observationRange> <text /> </observationRange > </referenceRange> </observation> </component> < component> <observation moodCode="EVN" classCode="OBS"> < templateId root="2.16.840.1.981807...4.2" /> <id nullFlavor="NA " /> <code codeSystem="local" code="Zgk8446" displayName="Ciprofloxacin " /> <statusCode code="completed" /> <effectiveTime value= "618534689626" /> <value unit="" xsi:type="PQ" value="<=1" /> <interpretationCode codeSystem="local" code="S" /> <referenceRange > <observationRange> <text /> </ observationRange> </referenceRange> </observation> </ component> <component> <observation moodCode="EVN" classCode="OBS"> <templateId root="2.16.840.1.668946.11.29.21.4.2" /> <id nullFlavor="NA" /> <code codeSystem="local" code="Woc2042" displayName= "Nitrofurantoin" /> <statusCode code="completed" /> < effectiveTime value="820053474935" /> <value unit="" xsi:type="PQ" value=">64" /> <referenceRange> <observationRange> <text /> </observationRange> </referenceRange> </observation> </component> <component> <observation moodCode="EVN" classCode="OBS"> <templateId root= "16.840.1.378953.10..22.4.2" /> <id nullFlavor="NA" /> < code codeSystem="local" code="Bxk4926" displayName="Gentamicin" /> < statusCode code="completed" /> <effectiveTime value="881005257479" /> <value unit="" xsi:type="PQ" value="<=4" /> < interpretationCode codeSystem="local" code="S" /> <referenceRange> <observationRange> <text /> </observationRange> </referenceRange> </observation> </component> < component> <observation moodCode="EVN" classCode="OBS"> < templateId root="03.28.840.1.674297.10..4.2" /> <id nullFlavor="NA " /> <code codeSystem="local" code="Eld6402" displayName="Levofloxacin " /> <statusCode code="completed" /> <effectiveTime value= "829606692242" /> <value unit="" xsi:type="PQ" value="<=2" /> <interpretationCode codeSystem="local" code="S" /> <referenceRange > <observationRange> <text /> </ observationRange> </referenceRange> </observation> </ component> <component> <observation moodCode="EVN" classCode="OBS"> <templateId root="03.28.840.1.776243.10...4.2" /> <id nullFlavor="NA" /> <code codeSystem="local" code="Twf5484" displayName= "Trimethoprim/ Sulfamethoxazole" /> <statusCode code="completed" /> <effectiveTime value="865872098179" /> <value unit="" xsi:type= "PQ" value=">2/38" /> <referenceRange> <observationRange > <text /> </observationRange> </referenceRange > </observation> </component> <component> <observation moodCode="EVN" classCode="OBS"> <templateId root= "03.28.840.1.893007.10.22.4.2" /> <id nullFlavor="NA" /> < code codeSystem="local" code="Aqm1189" displayName="Tetracycline" /> < statusCode code="completed" /> <effectiveTime value="062838915531" /> <value unit="" xsi:type="PQ" value=">8" /> <referenceRange > <observationRange> <text /> </ observationRange> </referenceRange> </observation> </ component> <component> <observation moodCode="EVN" classCode="OBS"> <templateId root="03.28.840.1.949728.11.29.214.2" /> <id nullFlavor="NA" /> <code codeSystem="local" code="Ury7275" displayName= "Amikacin" /> <statusCode code="completed" /> <effectiveTime value="012527764759" /> <value unit="" xsi:type="PQ" value="<=16" / > <interpretationCode codeSystem="local" code="S" /> < referenceRange> <observationRange> <text /> < /observationRange> </referenceRange> </observation> </ component> <component> <observation moodCode="EVN" classCode="OBS"> <templateId root="03.28.840.1.126799..22.4.2" /> <id nullFlavor="NA" /> <code codeSystem="local" code="Stt0741" displayName= "Aztreonam" /> <statusCode code="completed" /> <effectiveTime value="010310733210" /> <value unit="" xsi:type="PQ" value="<=8" /> <interpretationCode codeSystem="local" code="IB" /> < referenceRange> <observationRange> <text /> < /observationRange> </referenceRange> </observation> </ component> <component> <observation moodCode="EVN" classCode="OBS"> <templateId root="03.28.840.1.522952.22.4.2" /> <id nullFlavor="NA" /> <code codeSystem="local" code="Vup5434" displayName= "Ceftazidime" /> <statusCode code="completed" /> < effectiveTime value="806922893703" /> <value unit="" xsi:type="PQ" value="4" /> <interpretationCode codeSystem="local" code="IB" /> <referenceRange> <observationRange> <text /> </observationRange> </referenceRange> </observation> < /component> <component> <observation moodCode="EVN" classCode="OBS" > <templateId root="03.28.840.1.992367.11.29.21.4.2" /> <id nullFlavor="NA" /> <code codeSystem="local" code="Ppq1214" displayName= "Ceftazidime/K Clavulanate" /> <statusCode code="completed" /> <effectiveTime value="513800783132" /> <value unit="" xsi:type="PQ" value="2" /> <referenceRange> <observationRange> <text /> </observationRange> </referenceRange> </ observation> </component> <component> <observation moodCode= "EVN" classCode="OBS"> <templateId root="03.28.840.1.246592.22.4.2 " /> <id nullFlavor="NA" /> <code codeSystem="local" code= "Gbg0551" displayName="Cephalothin" /> <statusCode code="completed" /> <effectiveTime value="934645732467" /> <value unit="" xsi: type="PQ" value=">16" /> <referenceRange> < observationRange> <text /> </observationRange> </referenceRange> </observation> </component> <component> <observation moodCode="EVN" classCode="OBS"> <templateId root= "03.28.840.1.523579.10..4.2" /> <id nullFlavor="NA" /> < code codeSystem="local" code="Ghz7745" displayName="Cefotaxime" /> < statusCode code="completed" /> <effectiveTime value="639235148234" /> <value unit="" xsi:type="PQ" value="16" /> <referenceRange> <observationRange> <text /> </observationRange > </referenceRange> </observation> </component> < component> <observation moodCode="EVN" classCode="OBS"> < templateId root="03.28.840.1.622356.10...4.2" /> <id nullFlavor="NA " /> <code codeSystem="local" code="Qoo7771" displayName="Cefotaxime/K Clavulanate" /> <statusCode code="completed" /> < effectiveTime value="000971259941" /> <value unit="" xsi:type="PQ" value=">4" /> <referenceRange> <observationRange> <text /> </observationRange> </referenceRange> </observation> </component> <component> <observation moodCode ="EVN" classCode="OBS"> <templateId root= "840.1.923994.10..22.4.2" /> <id nullFlavor="NA" /> < code codeSystem="local" code="Udw8501" displayName="Cefoxitin" /> < statusCode code="completed" /> <effectiveTime value="539908581906" /> <value unit="" xsi:type="PQ" value=">16" /> <referenceRange > <observationRange> <text /> </ observationRange> </referenceRange> </observation> </ component> <component> <observation moodCode="EVN" classCode="OBS"> <templateId root="216.840.1.258459...4.2" /> <id nullFlavor="NA" /> <code codeSystem="local" code="Moc3646" displayName= "Cefazolin" /> <statusCode code="completed" /> <effectiveTime value="889104631548" /> <value unit="" xsi:type="PQ" value=">16" /> <referenceRange> <observationRange> <text /> </observationRange> </referenceRange> </observation> </component> <component> <observation moodCode="EVN" classCode ="OBS"> <templateId root="216.840.1.397075....4.2" /> < id nullFlavor="NA" /> <code codeSystem="local" code="Kzh9312" displayName="Cefepime" /> <statusCode code="completed" /> < effectiveTime value="653238458992" /> <value unit="" xsi:type="PQ" value="<=8" /> <interpretationCode codeSystem="local" code="S" /> <referenceRange> <observationRange> <text /> </observationRange> </referenceRange> </observation> </component> <component> <observation moodCode="EVN" classCode= "OBS"> <templateId root="16.840.1.289967.10..22.4.2" /> < id nullFlavor="NA" /> <code codeSystem="local" code="Psf3616" displayName="Cefuroxime" /> <statusCode code="completed" /> < effectiveTime value="223284679336" /> <value unit="" xsi:type="PQ" value=">16" /> <referenceRange> <observationRange> <text /> </observationRange> </referenceRange> </observation> </component> <component> <observation moodCode="EVN" classCode="OBS"> <templateId root= "16.840.1.070612.10..22.4.2" /> <id nullFlavor="NA" /> < code codeSystem="local" code="Ukk9689" displayName="Ertapenem" /> < statusCode code="completed" /> <effectiveTime value="330776109751" /> <value unit="" xsi:type="PQ" value="2" /> <referenceRange> <observationRange> <text /> </observationRange > </referenceRange> </observation> </component> < component> <observation moodCode="EVN" classCode="OBS"> < templateId root="03.28.840.1.758618.10..22.4.2" /> <id nullFlavor="NA " /> <code codeSystem="local" code="Ewz0369" displayName="Imipenem" /> <statusCode code="completed" /> <effectiveTime value= "936691401565" /> <value unit="" xsi:type="PQ" value="<=4" /> <interpretationCode codeSystem="local" code="S" /> <referenceRange > <observationRange> <text /> </ observationRange> </referenceRange> </observation> </ component> <component> <observation moodCode="EVN" classCode="OBS"> <templateId root="216.840.1.985059.10.20.22.4.2" /> <id nullFlavor="NA" /> <code codeSystem="local" code="Sjn5070" displayName= "Meropenem" /> <statusCode code="completed" /> <effectiveTime value="376564492247" /> <value unit="" xsi:type="PQ" value="<=4" /> <interpretationCode codeSystem="local" code="S" /> < referenceRange> <observationRange> <text /> < /observationRange> </referenceRange> </observation> </ component> <component> <observation moodCode="EVN" classCode="OBS"> <templateId root="03.28.840.1.883958.10..4.2" /> <id nullFlavor="NA" /> <code codeSystem="local" code="Odx3979" displayName= "Piperacillin/Tazobactam" /> <statusCode code="completed" /> < effectiveTime value="417619131094" /> <value unit="" xsi:type="PQ" value="<=16" /> <interpretationCode codeSystem="local" code="IB" /> <referenceRange> <observationRange> <text /> </observationRange> </referenceRange> </observation> </component> <component> <observation moodCode="EVN" classCode ="OBS"> <templateId root="16.840.1.107550.10...4.2" /> < id nullFlavor="NA" /> <code codeSystem="local" code="Pnh3718" displayName="Piperacillin" /> <statusCode code="completed" /> <effectiveTime value="235205590309" /> <value unit="" xsi:type="PQ" value="<=16" /> <interpretationCode codeSystem="local" code="IB" /> <referenceRange> <observationRange> <text /> </observationRange> </referenceRange> </observation> </component> <component> <observation moodCode="EVN" classCode ="OBS"> <templateId root="2.16.840.1.092856.10.20.22.4.2" /> < id nullFlavor="NA" /> <code codeSystem="local" code="Uyj0606" displayName="Tigecycline" /> <statusCode code="completed" /> < effectiveTime value="542750924738" /> <value unit="" xsi:type="PQ" value="N/R" /> <referenceRange> <observationRange> <text /> </observationRange> </referenceRange> < /observation> </component> <component> <observation moodCode= "EVN" classCode="OBS"> <templateId root="2.16.840.1.032905.10.20.22.4.2 " /> <id nullFlavor="NA" /> <code codeSystem="local" code= "Voh4676" displayName="Tobramycin" /> <statusCode code="completed" /> <effectiveTime value="743766545585" /> <value unit="" xsi:type ="PQ" value="<=4" /> <interpretationCode codeSystem="local" code="S " /> <referenceRange> <observationRange> <text /> </observationRange> </referenceRange> </ observation> </component> </organizer> </entry> <entry> <organizer moodCode="EVN" classCode="BATTERY"> <templateId root= "2.840.1.698908.10..4.1" /> <id nullFlavor="NA" /> <code codeSystem="local" code="[id number]" displayName="Sensi" /> <statusCode code= "completed" /> <component> <observation moodCode="EVN" classCode= "OBS"> <templateId root="03.28.840.1.481975.11.29.21.4.2" /> < id nullFlavor="NA" /> <code codeSystem="local" code="Kzj0578" displayName="Ampicillin/Sulbactam" /> <statusCode code="completed" /> <effectiveTime value="533360140754" /> <value unit="" xsi:type ="PQ" value=">16/8" /> <interpretationCode codeSystem="local" code= "R" /> <referenceRange> <observationRange> < text /> </observationRange> </referenceRange> </ observation> </component> <component> <observation moodCode= "EVN" classCode="OBS"> <templateId root="03.28.840.1.555118.11.29.21.4.2 " /> <id nullFlavor="NA" /> <code codeSystem="local" code= "Wla0196" displayName="Ampicillin" /> <statusCode code="completed" /> <effectiveTime value="638304224303" /> <value unit="" xsi:type ="PQ" value=">16" /> <interpretationCode codeSystem="local" code="R " /> <referenceRange> <observationRange> <text /> </observationRange> </referenceRange> </ observation> </component> <component> <observation moodCode= "EVN" classCode="OBS"> <templateId root="03.28.840.1.176363.11.29.21.4.2 " /> <id nullFlavor="NA" /> <code codeSystem="local" code= "Yvr9196" displayName="Amoxicillin/K Clavulanate" /> <statusCode code= "completed" /> <effectiveTime value="422804529111" /> <value unit="" xsi:type="PQ" value="16/8" /> <interpretationCode codeSystem= "local" code="I" /> <referenceRange> <observationRange> <text /> </observationRange> </referenceRange> </observation> </component> <component> <observation moodCode="EVN" classCode="OBS"> <templateId root= "216.840.1.209650.11.29.21.4.2" /> <id nullFlavor="NA" /> < code codeSystem="local" code="Mtt8375" displayName="Ceftriaxone" /> < statusCode code="completed" /> <effectiveTime value="584934929214" /> <value unit="" xsi:type="PQ" value="<=8" /> < interpretationCode codeSystem="local" code="S" /> <referenceRange> <observationRange> <text /> </observationRange> </referenceRange> </observation> </component> < component> <observation moodCode="EVN" classCode="OBS"> < templateId root="216.840.1.797066.11.29.21.4.2" /> <id nullFlavor="NA " /> <code codeSystem="local" code="Ylk6058" displayName="Ciprofloxacin " /> <statusCode code="completed" /> <effectiveTime value= "724824047620" /> <value unit="" xsi:type="PQ" value="<=1" /> <interpretationCode codeSystem="local" code="S" /> <referenceRange > <observationRange> <text /> </ observationRange> </referenceRange> </observation> </ component> <component> <observation moodCode="EVN" classCode="OBS"> <templateId root="216.840.1.091197.10..4.2" /> <id nullFlavor="NA" /> <code codeSystem="local" code="Ntp6731" displayName= "Nitrofurantoin" /> <statusCode code="completed" /> < effectiveTime value="081627916167" /> <value unit="" xsi:type="PQ" value="<=32" /> <referenceRange> <observationRange> <text /> </observationRange> </referenceRange> </observation> </component> <component> <observation moodCode="EVN" classCode="OBS"> <templateId root= "216.840.1.892890.11.29.21.4.2" /> <id nullFlavor="NA" /> < code codeSystem="local" code="Kxu2929" displayName="Gentamicin" /> < statusCode code="completed" /> <effectiveTime value="084927172761" /> <value unit="" xsi:type="PQ" value="<=4" /> < interpretationCode codeSystem="local" code="S" /> <referenceRange> <observationRange> <text /> </observationRange> </referenceRange> </observation> </component> < component> <observation moodCode="EVN" classCode="OBS"> < templateId root="216.840.1.992263...4.2" /> <id nullFlavor="NA " /> <code codeSystem="local" code="Fut4520" displayName="Levofloxacin " /> <statusCode code="completed" /> <effectiveTime value= "496784158643" /> <value unit="" xsi:type="PQ" value="<=2" /> <interpretationCode codeSystem="local" code="S" /> <referenceRange > <observationRange> <text /> </ observationRange> </referenceRange> </observation> </ component> <component> <observation moodCode="EVN" classCode="OBS"> <templateId root="216.840.1.972693.11.29.21.4.2" /> <id nullFlavor="NA" /> <code codeSystem="local" code="Cqf0445" displayName= "Trimethoprim/ Sulfamethoxazole" /> <statusCode code="completed" /> <effectiveTime value="029954656537" /> <value unit="" xsi:type= "PQ" value=">2/38" /> <interpretationCode codeSystem="local" code="R " /> <referenceRange> <observationRange> <text /> </observationRange> </referenceRange> </ observation> </component> <component> <observation moodCode= "EVN" classCode="OBS"> <templateId root="16.840.1.027668.11.29.21.4.2 " /> <id nullFlavor="NA" /> <code codeSystem="local" code= "Pxk7399" displayName="Tetracycline" /> <statusCode code="completed" / > <effectiveTime value="831545491364" /> <value unit="" xsi: type="PQ" value="<=4" /> <interpretationCode codeSystem="local" code ="S" /> <referenceRange> <observationRange> < text /> </observationRange> </referenceRange> </ observation> </component> <component> <observation moodCode= "EVN" classCode="OBS"> <templateId root="216.840.1.542342.11.29.21.4.2 " /> <id nullFlavor="NA" /> <code codeSystem="local" code= "Gww2781" displayName="Amikacin" /> <statusCode code="completed" /> <effectiveTime value="524802379854" /> <value unit="" xsi:type= "PQ" value="<=16" /> <interpretationCode codeSystem="local" code="S " /> <referenceRange> <observationRange> <text /> </observationRange> </referenceRange> </ observation> </component> <component> <observation moodCode= "EVN" classCode="OBS"> <templateId root="216.840.1.226177.11.29.21.4.2 " /> <id nullFlavor="NA" /> <code codeSystem="local" code= "Tpo9955" displayName="Aztreonam" /> <statusCode code="completed" /> <effectiveTime value="960868568338" /> <value unit="" xsi:type= "PQ" value="<=8" /> <interpretationCode codeSystem="local" code="S" /> <referenceRange> <observationRange> <text / > </observationRange> </referenceRange> </observation > </component> <component> <observation moodCode="EVN" classCode="OBS"> <templateId root="216.840.1.664693.11.29.21.4.2" /> <id nullFlavor="NA" /> <code codeSystem="local" code="Bwe3678 " displayName="Ceftazidime" /> <statusCode code="completed" /> <effectiveTime value="146029362844" /> <value unit="" xsi:type="PQ" value="<=1" /> <interpretationCode codeSystem="local" code="S" /> <referenceRange> <observationRange> <text /> </observationRange> </referenceRange> </observation> </component> <component> <observation moodCode="EVN" classCode= "OBS"> <templateId root="216.840.1.528729.10.4.2" /> < id nullFlavor="NA" /> <code codeSystem="local" code="Ljc9822" displayName="Ceftazidime/K Clavulanate" /> <statusCode code="completed " /> <effectiveTime value="572812377501" /> <value unit="" xsi :type="PQ" value="<=0.25" /> <referenceRange> < observationRange> <text /> </observationRange> </referenceRange> </observation> </component> <component> <observation moodCode="EVN" classCode="OBS"> <templateId root= "03.28.840.1.077124.11.29.21.4.2" /> <id nullFlavor="NA" /> < code codeSystem="local" code="Pzn1213" displayName="Cephalothin" /> < statusCode code="completed" /> <effectiveTime value="045036688799" /> <value unit="" xsi:type="PQ" value=">16" /> <referenceRange > <observationRange> <text /> </ observationRange> </referenceRange> </observation> </ component> <component> <observation moodCode="EVN" classCode="OBS"> <templateId root="16.840.1.826651.11.29.21.4.2" /> <id nullFlavor="NA" /> <code codeSystem="local" code="Jbr8558" displayName= "Cefotaxime" /> <statusCode code="completed" /> < effectiveTime value="124693192145" /> <value unit="" xsi:type="PQ" value="<=2" /> <interpretationCode codeSystem="local" code="S" /> <referenceRange> <observationRange> <text /> </observationRange> </referenceRange> </observation> </component> <component> <observation moodCode="EVN" classCode= "OBS"> <templateId root="216.840.1.392212.10..22.4.2" /> < id nullFlavor="NA" /> <code codeSystem="local" code="Afp9399" displayName="Cefotaxime/K Clavulanate" /> <statusCode code="completed" /> <effectiveTime value="983829825930" /> <value unit="" xsi: type="PQ" value="<=0.5" /> <referenceRange> < observationRange> <text /> </observationRange> </referenceRange> </observation> </component> <component> <observation moodCode="EVN" classCode="OBS"> <templateId root= "216.840.1.849759.10...4.2" /> <id nullFlavor="NA" /> < code codeSystem="local" code="Zfz8523" displayName="Cefoxitin" /> < statusCode code="completed" /> <effectiveTime value="103944182601" /> <value unit="" xsi:type="PQ" value="<=8" /> < interpretationCode codeSystem="local" code="S" /> <referenceRange> <observationRange> <text /> </observationRange> </referenceRange> </observation> </component> < component> <observation moodCode="EVN" classCode="OBS"> < templateId root="216.840.1.959758.10..22.4.2" /> <id nullFlavor="NA " /> <code codeSystem="local" code="Mcc9820" displayName="Cefazolin" / > <statusCode code="completed" /> <effectiveTime value= "799458484121" /> <value unit="" xsi:type="PQ" value=">16" /> <interpretationCode codeSystem="local" code="R" /> <referenceRange > <observationRange> <text /> </ observationRange> </referenceRange> </observation> </ component> <component> <observation moodCode="EVN" classCode="OBS"> <templateId root="2.16.840.1.306883.10...4.2" /> <id nullFlavor="NA" /> <code codeSystem="local" code="Svh1318" displayName= "Cefepime" /> <statusCode code="completed" /> <effectiveTime value="067379367634" /> <value unit="" xsi:type="PQ" value="<=8" /> <interpretationCode codeSystem="local" code="S" /> < referenceRange> <observationRange> <text /> < /observationRange> </referenceRange> </observation> </ component> <component> <observation moodCode="EVN" classCode="OBS"> <templateId root="2.16.840.1.865486.10...4.2" /> <id nullFlavor="NA" /> <code codeSystem="local" code="Gor4847" displayName= "Cefuroxime" /> <statusCode code="completed" /> < effectiveTime value="683444218569" /> <value unit="" xsi:type="PQ" value="<=4" /> <interpretationCode codeSystem="local" code="S" /> <referenceRange> <observationRange> <text /> </observationRange> </referenceRange> </observation> </component> <component> <observation moodCode="EVN" classCode= "OBS"> <templateId root="216.840.1.305678.10..4.2" /> < id nullFlavor="NA" /> <code codeSystem="local" code="Onr0077" displayName="Ertapenem" /> <statusCode code="completed" /> < effectiveTime value="605889557877" /> <value unit="" xsi:type="PQ" value="<=1" /> <interpretationCode codeSystem="local" code="S" /> <referenceRange> <observationRange> <text /> </observationRange> </referenceRange> </observation> </component> <component> <observation moodCode="EVN" classCode= "OBS"> <templateId root="216.840.1.718182.11.29.214.2" /> < id nullFlavor="NA" /> <code codeSystem="local" code="Oma1663" displayName="Imipenem" /> <statusCode code="completed" /> < effectiveTime value="413939931364" /> <value unit="" xsi:type="PQ" value="<=4" /> <interpretationCode codeSystem="local" code="S" /> <referenceRange> <observationRange> <text /> </observationRange> </referenceRange> </observation> </component> <component> <observation moodCode="EVN" classCode= "OBS"> <templateId root="216.840.1.717773.10..4.2" /> < id nullFlavor="NA" /> <code codeSystem="local" code="Hkt1093" displayName="Meropenem" /> <statusCode code="completed" /> < effectiveTime value="462228985516" /> <value unit="" xsi:type="PQ" value="<=4" /> <interpretationCode codeSystem="local" code="S" /> <referenceRange> <observationRange> <text /> </observationRange> </referenceRange> </observation> </component> <component> <observation moodCode="EVN" classCode= "OBS"> <templateId root="216.840.1.347329.10..4.2" /> < id nullFlavor="NA" /> <code codeSystem="local" code="Yud5494" displayName="Piperacillin/Tazobactam" /> <statusCode code="completed" / > <effectiveTime value="118177210768" /> <value unit="" xsi: type="PQ" value="<=16" /> <interpretationCode codeSystem="local" code="S" /> <referenceRange> <observationRange> <text /> </observationRange> </referenceRange> </ observation> </component> <component> <observation moodCode= "EVN" classCode="OBS"> <templateId root="216.840.1.547407.11.29.21.4.2 " /> <id nullFlavor="NA" /> <code codeSystem="local" code= "Pdl8126" displayName="Piperacillin" /> <statusCode code="completed" / > <effectiveTime value="712131758761" /> <value unit="" xsi: type="PQ" value=">64" /> <interpretationCode codeSystem="local" code ="R" /> <referenceRange> <observationRange> < text /> </observationRange> </referenceRange> </ observation> </component> <component> <observation moodCode= "EVN" classCode="OBS"> <templateId root="216.840.1.321012.10..22.4.2 " /> <id nullFlavor="NA" /> <code codeSystem="local" code= "Czz7311" displayName="Tigecycline" /> <statusCode code="completed" /> <effectiveTime value="917467350513" /> <value unit="" xsi: type="PQ" value="<=2" /> <interpretationCode codeSystem="local" code ="S" /> <referenceRange> <observationRange> < text /> </observationRange> </referenceRange> </ observation> </component> <component> <observation moodCode= "EVN" classCode="OBS"> <templateId root="03.28.840.1.608508.10..4.2 " /> <id nullFlavor="NA" /> <code codeSystem="local" code= "Jjl9860" displayName="Tobramycin" /> <statusCode code="completed" /> <effectiveTime value="202090962260" /> <value unit="" xsi:type ="PQ" value="<=4" /> <interpretationCode codeSystem="local" code="S " /> <referenceRange> <observationRange> <text /> </observationRange> </referenceRange> </ observation> </component> <component> <observation moodCode= "EVN" classCode="OBS"> <templateId root="03.28.840.1.788584.10...4.2 " /> <id nullFlavor="NA" /> <code codeSystem="local" code= "Meo49784" displayName="FINAL CULTURE RESULTS" /> <statusCode code= "completed" /> <effectiveTime value="550703733762" /> <value unit="" xsi:type="PQ" value="Escherichia coli (Isolate 2)" /> < referenceRange> <observationRange> <text /> < /observationRange> </referenceRange> </observation> </ component> </organizer> </entry> <entry> <organizer moodCode="EVN" classCode="BATTERY"> <templateId root="216.840.1.332567.10.22.4.1" /> <id nullFlavor="NA" /> <code codeSystem="local" code="CBP1771" displayName="Protime " /> <statusCode code="completed" /> <component> <observation moodCode="EVN" classCode="OBS"> <templateId root= "216.840.1.227124...4.2" /> <id nullFlavor="NA" /> < code codeSystem="local" code="Hvv941" displayName="INR" /> <statusCode code="completed" /> <effectiveTime value="144935915661" /> < value unit="" xsi:type="PQ" value="3.4" /> <referenceRange> <observationRange> <text>1.0-4.0</text> </ observationRange> </referenceRange> </observation> </ component> <component> <observation moodCode="EVN" classCode="OBS"> <templateId root="216.840.1.160573.10...4.2" /> <id nullFlavor="NA" /> <code codeSystem="local" code="Obg2008" displayName= "Protime" /> <statusCode code="completed" /> <effectiveTime value="107264594464" /> <value unit="Sec" xsi:type="PQ" value="42.2" / > <interpretationCode codeSystem="local" code="H" /> < referenceRange> <observationRange> <text>9.9-12.8</text > </observationRange> </referenceRange> </observation > </component> </organizer> </entry> <entry> <organizer moodCode= "EVN" classCode="BATTERY"> <templateId root="216.840.1.019528.10..22.4.1 " /> <id nullFlavor="NA" /> <code codeSystem="local" code="JPX3641" displayName="Protime " /> <statusCode code="completed" /> <component> <observation moodCode="EVN" classCode="OBS"> <templateId root= "216.840.1.545445.10..22.4.2" /> <id nullFlavor="NA" /> < code codeSystem="local" code="Ior628" displayName="INR" /> <statusCode code="completed" /> <effectiveTime value="624857414338" /> < value unit="" xsi:type="PQ" value="2.5" /> <referenceRange> <observationRange> <text>1.0-4.0</text> </ observationRange> </referenceRange> </observation> </ component> <component> <observation moodCode="EVN" classCode="OBS"> <templateId root="216.840.1.231073.10...4.2" /> <id nullFlavor="NA" /> <code codeSystem="local" code="Uik4884" displayName= "Protime" /> <statusCode code="completed" /> <effectiveTime value="350609184973" /> <value unit="Sec" xsi:type="PQ" value="30.9" / > <interpretationCode codeSystem="local" code="H" /> < referenceRange> <observationRange> <text>9.9-12.8</text > </observationRange> </referenceRange> </observation > </component> </organizer> </entry> <entry> <organizer moodCode= "EVN" classCode="BATTERY"> <templateId root="03.28.840.1.023099.10..22.4.1 " /> <id nullFlavor="NA" /> <code codeSystem="local" code="ORD3" displayName="Comprehensive Metabolic Panel" /> <statusCode code="completed " /> <component> <observation moodCode="EVN" classCode="OBS"> <templateId root="840.1.554062.10..22.4.2" /> <id nullFlavor ="NA" /> <code codeSystem="local" code="Res44" displayName="Albumin" / > <statusCode code="completed" /> <effectiveTime value= "693421337188" /> <value unit="g/dL" xsi:type="PQ" value="3.4" /> <interpretationCode codeSystem="local" code="L" /> <referenceRange > <observationRange> <text>3.6-5.1</text> </ observationRange> </referenceRange> </observation> </ component> <component> <observation moodCode="EVN" classCode="OBS"> <templateId root="840.1.323306.10..22.4.2" /> <id nullFlavor="NA" /> <code codeSystem="local" code="Res45" displayName= "ALP" /> <statusCode code="completed" /> <effectiveTime value= "595719674286" /> <value unit="U/L" xsi:type="PQ" value="115" /> <referenceRange> <observationRange> <text>35-130</ text> </observationRange> </referenceRange> </ observation> </component> <component> <observation moodCode= "EVN" classCode="OBS"> <templateId root="03.28.830.1.150034.10..22.4.2 " /> <id nullFlavor="NA" /> <code codeSystem="local" code= "Res46" displayName="ALT" /> <statusCode code="completed" /> < effectiveTime value="" /> <value unit="U/L" xsi:type="PQ" value="18" /> <referenceRange> <observationRange> <text>6-45</text> </observationRange> </referenceRange> </observation> </component> <component> <observation moodCode="EVN" classCode="OBS"> <templateId root= "216.840.1.831369.10...4.2" /> <id nullFlavor="NA" /> < code codeSystem="local" code="Res61" displayName="Anion Gap" /> < statusCode code="completed" /> <effectiveTime value="" /> <value unit="" xsi:type="PQ" value="18" /> < interpretationCode codeSystem="local" code="H" /> <referenceRange> <observationRange> <text>6-14</text> </ observationRange> </referenceRange> </observation> </ component> <component> <observation moodCode="EVN" classCode="OBS"> <templateId root="216.840.1.370796.10..22.4.2" /> <id nullFlavor="NA" /> <code codeSystem="local" code="Res48" displayName= "AST" /> <statusCode code="completed" /> <effectiveTime value= "" /> <value unit="U/L" xsi:type="PQ" value="27" /> <referenceRange> <observationRange> <text>2-40</text > </observationRange> </referenceRange> </observation > </component> <component> <observation moodCode="EVN" classCode="OBS"> <templateId root="16.840.1.110041.10.22.4.2" /> <id nullFlavor="NA" /> <code codeSystem="local" code="Res26" displayName="BUN" /> <statusCode code="completed" /> < effectiveTime value="" /> <value unit="mg/dL" xsi:type="PQ " value="9" /> <referenceRange> <observationRange> <text>5-25</text> </observationRange> </referenceRange > </observation> </component> <component> <observation moodCode="EVN" classCode="OBS"> <templateId root= "16.840.1.259926.11.29.21.4.2" /> <id nullFlavor="NA" /> < code codeSystem="local" code="Res5" displayName="Calcium" /> < statusCode code="completed" /> <effectiveTime value="" /> <value unit="mg/dL" xsi:type="PQ" value="9.5" /> < referenceRange> <observationRange> <text>8.3-10.4</text > </observationRange> </referenceRange> </observation > </component> <component> <observation moodCode="EVN" classCode="OBS"> <templateId root="03.28.840.1.850950.10.22.4.2" /> <id nullFlavor="NA" /> <code codeSystem="local" code="Res21" displayName="Chloride" /> <statusCode code="completed" /> < effectiveTime value="135362904368" /> <value unit="mmol/L" xsi:type="PQ " value="104" /> <referenceRange> <observationRange> <text>95-114</text> </observationRange> </ referenceRange> </observation> </component> <component> <observation moodCode="EVN" classCode="OBS"> <templateId root= "216.840.1.368235.10..4.2" /> <id nullFlavor="NA" /> < code codeSystem="local" code="Res49" displayName="CO2" /> <statusCode code="completed" /> <effectiveTime value="" /> < value unit="mEq/L" xsi:type="PQ" value="27" /> <referenceRange> <observationRange> <text>22-33</text> </ observationRange> </referenceRange> </observation> </ component> <component> <observation moodCode="EVN" classCode="OBS"> <templateId root="03.28.840.1.538584.11.29.21.4.2" /> <id nullFlavor="NA" /> <code codeSystem="local" code="Rpi228" displayName= "Creat" /> <statusCode code="completed" /> <effectiveTime value="" /> <value unit="mg/dL" xsi:type="PQ" value="0.73" /> <referenceRange> <observationRange> <text> 0.50-1.50</text> </observationRange> </referenceRange> </observation> </component> <component> <observation moodCode="EVN" classCode="OBS"> <templateId root= "03.28.840.1.496518.10..4.2" /> <id nullFlavor="NA" /> < code codeSystem="local" code="Ord243" displayName="eGFR" /> < statusCode code="completed" /> <effectiveTime value="553480692301" /> <value unit="mL/min/1.73m2" xsi:type="PQ" value="79" /> < referenceRange> <observationRange> <text>>59</text> </observationRange> </referenceRange> </observation> </component> <component> <observation moodCode="EVN" classCode ="OBS"> <templateId root="03.28.840.1.260648.10.22.4.2" /> < id nullFlavor="NA" /> <code codeSystem="local" code="Res7" displayName= "Globulin" /> <statusCode code="completed" /> <effectiveTime value="508604076612" /> <value unit="g/dL" xsi:type="PQ" value="3.6" / > <interpretationCode codeSystem="local" code="H" /> < referenceRange> <observationRange> <text>2.3-3.5</text> </observationRange> </referenceRange> </observation > </component> <component> <observation moodCode="EVN" classCode="OBS"> <templateId root="03.28.840.1.762716.10..4.2" /> <id nullFlavor="NA" /> <code codeSystem="local" code="Res60" displayName="Glucose" /> <statusCode code="completed" /> < effectiveTime value="817175073506" /> <value unit="mg/dL" xsi:type="PQ " value="101" /> <referenceRange> <observationRange> <text>70-110</text> </observationRange> </ referenceRange> </observation> </component> <component> <observation moodCode="EVN" classCode="OBS"> <templateId root= "03.28.840.1.271792.11.29.21.4.2" /> <id nullFlavor="NA" /> < code codeSystem="local" code="Res52" displayName="Osmo" /> <statusCode code="completed" /> <effectiveTime value="" /> < value unit="" xsi:type="PQ" value="296" /> <interpretationCode codeSystem="local" code="H" /> <referenceRange> < observationRange> <text>280-295</text> </ observationRange> </referenceRange> </observation> </ component> <component> <observation moodCode="EVN" classCode="OBS"> <templateId root="2.16.840.1.658234.11.29.21.4.2" /> <id nullFlavor="NA" /> <code codeSystem="local" code="Res20" displayName= "Potassium" /> <statusCode code="completed" /> <effectiveTime value="" /> <value unit="mmol/L" xsi:type="PQ" value="5.0" /> <referenceRange> <observationRange> <text> 3.5-5.3</text> </observationRange> </referenceRange> </observation> </component> <component> <observation moodCode= "EVN" classCode="OBS"> <templateId root="2.16.840.1.295584.11.29.21.4.2 " /> <id nullFlavor="NA" /> <code codeSystem="local" code= "Res19" displayName="Sodium" /> <statusCode code="completed" /> <effectiveTime value="" /> <value unit="mmol/L" xsi:type ="PQ" value="144" /> <referenceRange> <observationRange> <text>134-148</text> </observationRange> </ referenceRange> </observation> </component> <component> <observation moodCode="EVN" classCode="OBS"> <templateId root= "03.28.840.1.582378.10...4.2" /> <id nullFlavor="NA" /> < code codeSystem="local" code="Res51" displayName="TBil" /> <statusCode code="completed" /> <effectiveTime value="[id number]" /> < value unit="mg/dL" xsi:type="PQ" value="0.3" /> <referenceRange> <observationRange> <text>0.2-1.2</text> </ observationRange> </referenceRange> </observation> </ component> <component> <observation moodCode="EVN" classCode="OBS"> <templateId root="840.1.394915.11.29.21.4.2" /> <id nullFlavor="NA" /> <code codeSystem="local" code="Res24" displayName= "TP" /> <statusCode code="completed" /> <effectiveTime value= "[id number]" /> <value unit="g/dL" xsi:type="PQ" value="7.0" /> <referenceRange> <observationRange> <text>6.0-8.3</ text> </observationRange> </referenceRange> </ observation> </component> </organizer> </entry> <entry> <organizer moodCode="EVN" classCode="BATTERY"> <templateId root= "03.28.840.1.987806.10.20.22.4.1" /> <id nullFlavor="NA" /> <code codeSystem="local" code="ORD68" displayName="Urinalysis" /> <statusCode code="completed" /> <component> <observation moodCode="EVN" classCode="OBS"> <templateId root="03.28.830.1.210710.10..22.4.2" /> <id nullFlavor="NA" /> <code codeSystem="local" code="Gga8588 " displayName="Icotest" /> <statusCode code="completed" /> < effectiveTime value="" /> <value unit="" xsi:type="PQ" value="N/A" /> <interpretationCode codeSystem="local" code="A" /> <referenceRange> <observationRange> <text>Negative< /text> </observationRange> </referenceRange> </ observation> </component> <component> <observation moodCode= "EVN" classCode="OBS"> <templateId root="216.840.1.734857.10..22.4.2 " /> <id nullFlavor="NA" /> <code codeSystem="local" code= "Ccw482" displayName="Urine Volume" /> <statusCode code="completed" /> <effectiveTime value="" /> <value unit="" xsi: type="PQ" value=" Urine Volume Insufficient (<10mL) May Affect Microscopic Exam" /> <referenceRange> <observationRange> < text /> </observationRange> </referenceRange> </ observation> </component> <component> <observation moodCode= "EVN" classCode="OBS"> <templateId root="216.840.1.911326.10..22.4.2 " /> <id nullFlavor="NA" /> <code codeSystem="local" code= "Bip837" displayName="Urine Yeast" /> <statusCode code="completed" /> <effectiveTime value="" /> <value unit="" xsi:type ="PQ" value="No Yeast present" /> <referenceRange> < observationRange> <text /> </observationRange> </referenceRange> </observation> </component> <component> <observation moodCode="EVN" classCode="OBS"> <templateId root= "216.840.1.387267.10.22.4.2" /> <id nullFlavor="NA" /> < code codeSystem="local" code="Mjw512" displayName="Urine-Appearance" /> <statusCode code="completed" /> <effectiveTime value="" / > <value unit="" xsi:type="PQ" value="Slightly Cloudy" /> < interpretationCode codeSystem="local" code="A" /> <referenceRange> <observationRange> <text>Clear</text> </ observationRange> </referenceRange> </observation> </ component> <component> <observation moodCode="EVN" classCode="OBS"> <templateId root="216.840.1.207031.11.29.21.4.2" /> <id nullFlavor="NA" /> <code codeSystem="local" code="Vum332" displayName= "Urine-Bacteria" /> <statusCode code="completed" /> < effectiveTime value="" /> <value unit="" xsi:type="PQ" value="Trace" /> <interpretationCode codeSystem="local" code="A" /> <referenceRange> <observationRange> <text> </text > </observationRange> </referenceRange> </observation > </component> <component> <observation moodCode="EVN" classCode="OBS"> <templateId root="216.840.1.287535...4.2" /> <id nullFlavor="NA" /> <code codeSystem="local" code="Btf127" displayName="Urine-Bilirubin" /> <statusCode code="completed" /> <effectiveTime value="" /> <value unit="" xsi:type="PQ " value="Negative" /> <referenceRange> <observationRange> <text>Negative</text> </observationRange> </ referenceRange> </observation> </component> <component> <observation moodCode="EVN" classCode="OBS"> <templateId root= "216.840.1.000847.10..4.2" /> <id nullFlavor="NA" /> < code codeSystem="local" code="Cvm188" displayName="Urine-Blood" /> < statusCode code="completed" /> <effectiveTime value="" /> <value unit="" xsi:type="PQ" value="Negative" /> < referenceRange> <observationRange> <text>Negative</text > </observationRange> </referenceRange> </observation > </component> <component> <observation moodCode="EVN" classCode="OBS"> <templateId root="03.28.840.1.037622.11.29.21.4.2" /> <id nullFlavor="NA" /> <code codeSystem="local" code="Lqe899" displayName="Urine-Color" /> <statusCode code="completed" /> < effectiveTime value="" /> <value unit="" xsi:type="PQ" value="Yellow" /> <referenceRange> <observationRange> <text>Colorless-Lt. Yellow</text> </observationRange> </referenceRange> </observation> </component> <component> <observation moodCode="EVN" classCode="OBS"> <templateId root= "03.28.840.1.159729.102022.4.2" /> <id nullFlavor="NA" /> < code codeSystem="local" code="Kro401" displayName="Urine-Epithelial Cells" /> <statusCode code="completed" /> <effectiveTime value= "448131943793" /> <value unit="" xsi:type="PQ" value="0-5/HPF" /> <interpretationCode codeSystem="local" code="A" /> <referenceRange > <observationRange> <text> </text> </ observationRange> </referenceRange> </observation> </ component> <component> <observation moodCode="EVN" classCode="OBS"> <templateId root="216.840.1.418320.10..22.4.2" /> <id nullFlavor="NA" /> <code codeSystem="local" code="Itt269" displayName= "Urine-Glucose" /> <statusCode code="completed" /> < effectiveTime value="282532498617" /> <value unit="" xsi:type="PQ" value="Negative" /> <referenceRange> <observationRange> <text>Negative</text> </observationRange> </ referenceRange> </observation> </component> <component> <observation moodCode="EVN" classCode="OBS"> <templateId root= "16.840.1.594062.10..22.4.2" /> <id nullFlavor="NA" /> < code codeSystem="local" code="Soy572" displayName="Urine-Ketones" /> < statusCode code="completed" /> <effectiveTime value="599770060358" /> <value unit="" xsi:type="PQ" value="Trace" /> < interpretationCode codeSystem="local" code="A" /> <referenceRange> <observationRange> <text>Negative</text> </ observationRange> </referenceRange> </observation> </ component> <component> <observation moodCode="EVN" classCode="OBS"> <templateId root="03.28.840.1.947456.22.4.2" /> <id nullFlavor="NA" /> <code codeSystem="local" code="Lyj889" displayName= "Urine-Leukocytes" /> <statusCode code="completed" /> < effectiveTime value="" /> <value unit="" xsi:type="PQ" value="Negative" /> <referenceRange> <observationRange> <text>Negative</text> </observationRange> </ referenceRange> </observation> </component> <component> <observation moodCode="EVN" classCode="OBS"> <templateId root= "216.840.1.675453.11.29.21.4.2" /> <id nullFlavor="NA" /> < code codeSystem="local" code="Ewe652" displayName="Urine-Mucus" /> < statusCode code="completed" /> <effectiveTime value="" /> <value unit="" xsi:type="PQ" value="1+" /> < interpretationCode codeSystem="local" code="A" /> <referenceRange> <observationRange> <text> </text> </ observationRange> </referenceRange> </observation> </ component> <component> <observation moodCode="EVN" classCode="OBS"> <templateId root="216.840.1.113499.11.29.21.4.2" /> <id nullFlavor="NA" /> <code codeSystem="local" code="Nto995" displayName= "Urine-Nitrite" /> <statusCode code="completed" /> < effectiveTime value="" /> <value unit="" xsi:type="PQ" value="Negative" /> <referenceRange> <observationRange> <text>Negative</text> </observationRange> </ referenceRange> </observation> </component> <component> <observation moodCode="EVN" classCode="OBS"> <templateId root= "2.16.840.1.425553.10..22.4.2" /> <id nullFlavor="NA" /> < code codeSystem="local" code="Lhf662" displayName="Urine-Other" /> < statusCode code="completed" /> <effectiveTime value="" /> <value unit="" xsi:type="PQ" value=" Urine Saved if Culture Needed ( 48hrs from time of collection)" /> <interpretationCode codeSystem= "local" code="A" /> <referenceRange> <observationRange> <text> </text> </observationRange> </ referenceRange> </observation> </component> <component> <observation moodCode="EVN" classCode="OBS"> <templateId root= "2.16.840.1.115910...4.2" /> <id nullFlavor="NA" /> < code codeSystem="local" code="Ilq390" displayName="Urine-pH" /> < statusCode code="completed" /> <effectiveTime value="" /> <value unit="" xsi:type="PQ" value="8.5" /> <referenceRange> <observationRange> <text>5-8.5</text> </ observationRange> </referenceRange> </observation> </ component> <component> <observation moodCode="EVN" classCode="OBS"> <templateId root="2.16.840.1.684498.10..22.4.2" /> <id nullFlavor="NA" /> <code codeSystem="local" code="Rzt723" displayName= "Urine-Protein" /> <statusCode code="completed" /> < effectiveTime value="" /> <value unit="" xsi:type="PQ" value="1+" /> <interpretationCode codeSystem="local" code="A" /> <referenceRange> <observationRange> <text>Negative</ text> </observationRange> </referenceRange> </ observation> </component> <component> <observation moodCode= "EVN" classCode="OBS"> <templateId root="216.840.1.372158.10..22.4.2 " /> <id nullFlavor="NA" /> <code codeSystem="local" code= "Hrt857" displayName="Urine-RBC" /> <statusCode code="completed" /> <effectiveTime value="441589410096" /> <value unit="" xsi:type= "PQ" value="Rare/HPF" /> <interpretationCode codeSystem="local" code="A " /> <referenceRange> <observationRange> <text > </text> </observationRange> </referenceRange> </ observation> </component> <component> <observation moodCode= "EVN" classCode="OBS"> <templateId root="03.28.840.1.154516.11.29.21.4.2 " /> <id nullFlavor="NA" /> <code codeSystem="local" code= "Kij514" displayName="Urine-Specific [place]" /> <statusCode code= "completed" /> <effectiveTime value="732960005707" /> <value unit="" xsi:type="PQ" value="1.015" /> <referenceRange> < observationRange> <text>1.000-1.030</text> </ observationRange> </referenceRange> </observation> </ component> <component> <observation moodCode="EVN" classCode="OBS"> <templateId root="216.840.1.676875.10.20.22.4.2" /> <id nullFlavor="NA" /> <code codeSystem="local" code="Lbo542" displayName= "Urine-WBC" /> <statusCode code="completed" /> <effectiveTime value="132024719363" /> <value unit="" xsi:type="PQ" value="Rare/HPF" / > <interpretationCode codeSystem="local" code="A" /> < referenceRange> <observationRange> <text> </text> </observationRange> </referenceRange> </observation> </component> <component> <observation moodCode="EVN" classCode="OBS "> <templateId root="16.840.1.285679.11.29.21.4.2" /> <id nullFlavor="NA" /> <code codeSystem="local" code="Fqy986" displayName= "Urobilinogen" /> <statusCode code="completed" /> < effectiveTime value="" /> <value unit="" xsi:type="PQ" value="0.2" /> <referenceRange> <observationRange> <text>0.2-1.0</text> </observationRange> </ referenceRange> </observation> </component> </organizer> </entry > <entry> <organizer moodCode="EVN" classCode="BATTERY"> <templateId root="03.28.840.1.297032.11.29.21.4.1" /> <id nullFlavor="NA" /> <code codeSystem="local" code="GCK241" displayName="Lactic Acid" /> <statusCode code="completed" /> <component> <observation moodCode="EVN" classCode="OBS"> <templateId root="16.840.1.147997.22.4.2" /> <id nullFlavor="NA" /> <code codeSystem="local" code="Rzk307" displayName="Lactic Acid" /> <statusCode code="completed" /> < effectiveTime value="" /> <value unit="mg/dL" xsi:type="PQ " value="14.4" /> <referenceRange> <observationRange> <text>4.5-19.8</text> </observationRange> </ referenceRange> </observation> </component> </organizer> </entry > <entry> <organizer moodCode="EVN" classCode="BATTERY"> <templateId root="216.840.1.258335.10...4.1" /> <id nullFlavor="NA" /> <code codeSystem="local" code="UDC9564" displayName="Blood Culture" /> < statusCode code="completed" /> <component> <observation moodCode= "EVN" classCode="OBS"> <templateId root="216.840.1.059260.10...4.2 " /> <id nullFlavor="NA" /> <code codeSystem="local" code= "Ill7738" displayName="PRELIM CULTURE RESULTS" /> <statusCode code= "completed" /> <effectiveTime value="" /> <value unit="" xsi:type="PQ" value="Blood Culture POSITIVE, Growth Day 2" /> < referenceRange> <observationRange> <text /> < /observationRange> </referenceRange> </observation> </ component> <component> <observation moodCode="EVN" classCode="OBS"> <templateId root="216.840.1.742343.10...4.2" /> <id nullFlavor="NA" /> <code codeSystem="local" code="Nag5348" displayName= "MEDIA PLATED" /> <statusCode code="completed" /> < effectiveTime value="" /> <value unit="" xsi:type="PQ" value="Setup at 15:17 on 09/11/2016 Blood Culture Media Position C48" /> <referenceRange> <observationRange> <text /> </observationRange> </referenceRange> </observation> </ component> <component> <observation moodCode="EVN" classCode="OBS"> <templateId root="216.840.1.102883.10...4.2" /> <id nullFlavor="NA" /> <code codeSystem="local" code="Aka0856" displayName= "CULTURE SOURCE" /> <statusCode code="completed" /> < effectiveTime value="" /> <value unit="" xsi:type="PQ" value="left yiA1A0E\\" /> <referenceRange> <observationRange > <text /> </observationRange> </referenceRange > </observation> </component> </organizer> </entry> <entry> <organizer moodCode="EVN" classCode="BATTERY"> <templateId root= "216.840.1.730588.10...4.1" /> <id nullFlavor="NA" /> <code codeSystem="local" code="JKA3058" displayName="Other Culture" /> < statusCode code="completed" /> <component> <observation moodCode= "EVN" classCode="OBS"> <templateId root="2.16.840.1.398294.10...4.2 " /> <id nullFlavor="NA" /> <code codeSystem="local" code= "Vlh7723" displayName="PRELIM CULTURE RESULTS" /> <statusCode code= "completed" /> <effectiveTime value="" /> <value unit="" xsi:type="PQ" value="Moderate [id number] further workup" /> <referenceRange> <observationRange> <text /> </observationRange> </referenceRange> </observation> </component> <component> <observation moodCode="EVN" classCode= "OBS"> <templateId root="216.840.1.068590.10..22.4.2" /> < id nullFlavor="NA" /> <code codeSystem="local" code="Jua2444" displayName="MEDIA PLATED" /> <statusCode code="completed" /> <effectiveTime value="" /> <value unit="" xsi:type="PQ" value="Setup at 15:33 on 09/11/2016" /> <referenceRange> < observationRange> <text /> </observationRange> </referenceRange> </observation> </component> </organizer> </ entry> <entry> <organizer moodCode="EVN" classCode="BATTERY"> < templateId root="216.840.1.536955.10..22.4.1" /> <id nullFlavor="NA" /> <code codeSystem="local" code="Afh76421" displayName="Sensi" /> < statusCode code="completed" /> <component> <observation moodCode= "EVN" classCode="OBS"> <templateId root="2.16.840.1.204344.10..22.4.2 " /> <id nullFlavor="NA" /> <code codeSystem="local" code= "Jzj19802" displayName="FINAL CULTURE RESULTS" /> <statusCode code= "completed" /> <effectiveTime value="" /> <value unit="" xsi:type="PQ" value="Pseudomonas aeruginosa (Isolate 1)" /> < referenceRange> <observationRange> <text /> < /observationRange> </referenceRange> </observation> </ component> <component> <observation moodCode="EVN" classCode="OBS"> <templateId root="216.840.1.001270.10..22.4.2" /> <id nullFlavor="NA" /> <code codeSystem="local" code="Mhp1561" displayName= "Ampicillin/Sulbactam" /> <statusCode code="completed" /> < effectiveTime value="" /> <value unit="" xsi:type="PQ" value=">16/8" /> <referenceRange> <observationRange> <text /> </observationRange> </referenceRange> </observation> </component> <component> <observation moodCode="EVN" classCode="OBS"> <templateId root= "216.840.1.849129.10..4.2" /> <id nullFlavor="NA" /> < code codeSystem="local" code="Gbx1335" displayName="Ampicillin" /> < statusCode code="completed" /> <effectiveTime value="" /> <value unit="" xsi:type="PQ" value=">16" /> <referenceRange > <observationRange> <text /> </ observationRange> </referenceRange> </observation> </ component> <component> <observation moodCode="EVN" classCode="OBS"> <templateId root="216.840.1.719351.10..4.2" /> <id nullFlavor="NA" /> <code codeSystem="local" code="Nkd1254" displayName= "Amoxicillin/K Clavulanate" /> <statusCode code="completed" /> <effectiveTime value="" /> <value unit="" xsi:type="PQ" value=">16/8" /> <referenceRange> <observationRange> <text /> </observationRange> </referenceRange> </observation> </component> <component> <observation moodCode="EVN" classCode="OBS"> <templateId root= "216.840.1.846173.10..4.2" /> <id nullFlavor="NA" /> < code codeSystem="local" code="Aeg6245" displayName="Ceftriaxone" /> < statusCode code="completed" /> <effectiveTime value="" /> <value unit="" xsi:type="PQ" value="32" /> <referenceRange> <observationRange> <text /> </observationRange > </referenceRange> </observation> </component> < component> <observation moodCode="EVN" classCode="OBS"> < templateId root="216.840.1.901204...4.2" /> <id nullFlavor="NA " /> <code codeSystem="local" code="Vyo7722" displayName="Ciprofloxacin " /> <statusCode code="completed" /> <effectiveTime value= "" /> <value unit="" xsi:type="PQ" value="<=1" /> <interpretationCode codeSystem="local" code="S" /> <referenceRange > <observationRange> <text /> </ observationRange> </referenceRange> </observation> </ component> <component> <observation moodCode="EVN" classCode="OBS"> <templateId root="16.840.1.440883.10..4.2" /> <id nullFlavor="NA" /> <code codeSystem="local" code="Prs5218" displayName= "Nitrofurantoin" /> <statusCode code="completed" /> < effectiveTime value="" /> <value unit="" xsi:type="PQ" value=">64" /> <referenceRange> <observationRange> <text /> </observationRange> </referenceRange> </observation> </component> <component> <observation moodCode="EVN" classCode="OBS"> <templateId root= "03.28.840.1.472983.10...4.2" /> <id nullFlavor="NA" /> < code codeSystem="local" code="Ypx7414" displayName="Gentamicin" /> < statusCode code="completed" /> <effectiveTime value="" /> <value unit="" xsi:type="PQ" value="<=4" /> < interpretationCode codeSystem="local" code="S" /> <referenceRange> <observationRange> <text /> </observationRange> </referenceRange> </observation> </component> < component> <observation moodCode="EVN" classCode="OBS"> < templateId root="03.28.840.1.681053.10..4.2" /> <id nullFlavor="NA " /> <code codeSystem="local" code="Occ7889" displayName="Levofloxacin " /> <statusCode code="completed" /> <effectiveTime value= "" /> <value unit="" xsi:type="PQ" value="<=2" /> <interpretationCode codeSystem="local" code="S" /> <referenceRange > <observationRange> <text /> </ observationRange> </referenceRange> </observation> </ component> <component> <observation moodCode="EVN" classCode="OBS"> <templateId root="03.28.840.1.734350.10..4.2" /> <id nullFlavor="NA" /> <code codeSystem="local" code="Hln7875" displayName= "Trimethoprim/ Sulfamethoxazole" /> <statusCode code="completed" /> <effectiveTime value="" /> <value unit="" xsi:type= "PQ" value="<=2/38" /> <referenceRange> <observationRange > <text /> </observationRange> </referenceRange > </observation> </component> <component> <observation moodCode="EVN" classCode="OBS"> <templateId root= "216.840.1.409281.10...4.2" /> <id nullFlavor="NA" /> < code codeSystem="local" code="Uet4728" displayName="Tetracycline" /> < statusCode code="completed" /> <effectiveTime value="" /> <value unit="" xsi:type="PQ" value=">8" /> <referenceRange > <observationRange> <text /> </ observationRange> </referenceRange> </observation> </ component> <component> <observation moodCode="EVN" classCode="OBS"> <templateId root="216.840.1.203885.10...4.2" /> <id nullFlavor="NA" /> <code codeSystem="local" code="Rky5285" displayName= "Amikacin" /> <statusCode code="completed" /> <effectiveTime value="" /> <value unit="" xsi:type="PQ" value="<=16" / > <interpretationCode codeSystem="local" code="S" /> < referenceRange> <observationRange> <text /> < /observationRange> </referenceRange> </observation> </ component> <component> <observation moodCode="EVN" classCode="OBS"> <templateId root="216.840.1.223280.10.22.4.2" /> <id nullFlavor="NA" /> <code codeSystem="local" code="Kix6772" displayName= "Aztreonam" /> <statusCode code="completed" /> <effectiveTime value="" /> <value unit="" xsi:type="PQ" value="<=8" /> <interpretationCode codeSystem="local" code="IB" /> < referenceRange> <observationRange> <text /> < /observationRange> </referenceRange> </observation> </ component> <component> <observation moodCode="EVN" classCode="OBS"> <templateId root="2.16.840.1.947169.10...4.2" /> <id nullFlavor="NA" /> <code codeSystem="local" code="Jkf2324" displayName= "Ceftazidime" /> <statusCode code="completed" /> < effectiveTime value="" /> <value unit="" xsi:type="PQ" value="<=1" /> <interpretationCode codeSystem="local" code="IB" /> <referenceRange> <observationRange> <text /> </observationRange> </referenceRange> </observation> </component> <component> <observation moodCode="EVN" classCode= "OBS"> <templateId root="2.16.840.1.354359.10...4.2" /> < id nullFlavor="NA" /> <code codeSystem="local" code="Jyk2021" displayName="Ceftazidime/K Clavulanate" /> <statusCode code="completed " /> <effectiveTime value="" /> <value unit="" xsi :type="PQ" value=">2" /> <referenceRange> < observationRange> <text /> </observationRange> </referenceRange> </observation> </component> <component> <observation moodCode="EVN" classCode="OBS"> <templateId root= "216.840.1.127522.10..4.2" /> <id nullFlavor="NA" /> < code codeSystem="local" code="Jkh6512" displayName="Cephalothin" /> < statusCode code="completed" /> <effectiveTime value="" /> <value unit="" xsi:type="PQ" value=">16" /> <referenceRange > <observationRange> <text /> </ observationRange> </referenceRange> </observation> </ component> <component> <observation moodCode="EVN" classCode="OBS"> <templateId root="216.840.1.724884.10...4.2" /> <id nullFlavor="NA" /> <code codeSystem="local" code="Dge7523" displayName= "Cefotaxime" /> <statusCode code="completed" /> < effectiveTime value="" /> <value unit="" xsi:type="PQ" value="16" /> <referenceRange> <observationRange> <text /> </observationRange> </referenceRange> </ observation> </component> <component> <observation moodCode= "EVN" classCode="OBS"> <templateId root="03.28.840.1.195935.10..4.2 " /> <id nullFlavor="NA" /> <code codeSystem="local" code= "Rif1708" displayName="Cefotaxime/K Clavulanate" /> <statusCode code= "completed" /> <effectiveTime value="" /> <value unit="" xsi:type="PQ" value=">4" /> <referenceRange> < observationRange> <text /> </observationRange> </referenceRange> </observation> </component> <component> <observation moodCode="EVN" classCode="OBS"> <templateId root= "216.840.1.052246.11.29.21.4.2" /> <id nullFlavor="NA" /> < code codeSystem="local" code="Bva7834" displayName="Cefoxitin" /> < statusCode code="completed" /> <effectiveTime value="" /> <value unit="" xsi:type="PQ" value=">16" /> <referenceRange > <observationRange> <text /> </ observationRange> </referenceRange> </observation> </ component> <component> <observation moodCode="EVN" classCode="OBS"> <templateId root="216.840.1.790274.11.29.21.4.2" /> <id nullFlavor="NA" /> <code codeSystem="local" code="Gxe6664" displayName= "Cefazolin" /> <statusCode code="completed" /> <effectiveTime value="" /> <value unit="" xsi:type="PQ" value=">16" /> <referenceRange> <observationRange> <text /> </observationRange> </referenceRange> </observation> </component> <component> <observation moodCode="EVN" classCode ="OBS"> <templateId root="03.28.840.1.412138.10.4.2" /> < id nullFlavor="NA" /> <code codeSystem="local" code="Cxl9748" displayName="Cefepime" /> <statusCode code="completed" /> < effectiveTime value="" /> <value unit="" xsi:type="PQ" value="<=8" /> <interpretationCode codeSystem="local" code="S" /> <referenceRange> <observationRange> <text /> </observationRange> </referenceRange> </observation> </component> <component> <observation moodCode="EVN" classCode= "OBS"> <templateId root="216.840.1.385382.10..4.2" /> < id nullFlavor="NA" /> <code codeSystem="local" code="Khc0396" displayName="Cefuroxime" /> <statusCode code="completed" /> < effectiveTime value="" /> <value unit="" xsi:type="PQ" value=">16" /> <referenceRange> <observationRange> <text /> </observationRange> </referenceRange> </observation> </component> <component> <observation moodCode="EVN" classCode="OBS"> <templateId root= "03.28.840.1.865100.11.29.21.4.2" /> <id nullFlavor="NA" /> < code codeSystem="local" code="Rex2804" displayName="Ertapenem" /> < statusCode code="completed" /> <effectiveTime value="" /> <value unit="" xsi:type="PQ" value="2" /> <referenceRange> <observationRange> <text /> </observationRange > </referenceRange> </observation> </component> < component> <observation moodCode="EVN" classCode="OBS"> < templateId root="03.28.840.1.332023.11.29.21.4.2" /> <id nullFlavor="NA " /> <code codeSystem="local" code="Vce3276" displayName="Imipenem" /> <statusCode code="completed" /> <effectiveTime value= "[id number]" /> <value unit="" xsi:type="PQ" value="<=4" /> <interpretationCode codeSystem="local" code="S" /> <referenceRange > <observationRange> <text /> </ observationRange> </referenceRange> </observation> </ component> <component> <observation moodCode="EVN" classCode="OBS"> <templateId root="216.840.1.479718.11.29.21.4.2" /> <id nullFlavor="NA" /> <code codeSystem="local" code="Isn5907" displayName= "Meropenem" /> <statusCode code="completed" /> <effectiveTime value="" /> <value unit="" xsi:type="PQ" value="<=4" /> <interpretationCode codeSystem="local" code="S" /> < referenceRange> <observationRange> <text /> < /observationRange> </referenceRange> </observation> </ component> <component> <observation moodCode="EVN" classCode="OBS"> <templateId root="216.840.1.831374.11.29.21.4.2" /> <id nullFlavor="NA" /> <code codeSystem="local" code="Zyh6935" displayName= "Piperacillin/Tazobactam" /> <statusCode code="completed" /> < effectiveTime value="" /> <value unit="" xsi:type="PQ" value="<=16" /> <interpretationCode codeSystem="local" code="IB" /> <referenceRange> <observationRange> <text /> </observationRange> </referenceRange> </observation> </component> <component> <observation moodCode="EVN" classCode ="OBS"> <templateId root="216.840.1.100512.11.29.21.4.2" /> < id nullFlavor="NA" /> <code codeSystem="local" code="Ake2914" displayName="Piperacillin" /> <statusCode code="completed" /> <effectiveTime value="" /> <value unit="" xsi:type="PQ" value="<=16" /> <interpretationCode codeSystem="local" code="IB" /> <referenceRange> <observationRange> <text /> </observationRange> </referenceRange> </observation> </component> <component> <observation moodCode="EVN" classCode ="OBS"> <templateId root="2.16.840.1.674982.11.29.21.4.2" /> < id nullFlavor="NA" /> <code codeSystem="local" code="Cli6586" displayName="Tigecycline" /> <statusCode code="completed" /> < effectiveTime value="" /> <value unit="" xsi:type="PQ" value="N/R" /> <referenceRange> <observationRange> <text /> </observationRange> </referenceRange> < /observation> </component> <component> <observation moodCode= "EVN" classCode="OBS"> <templateId root="2.16.840.1.851962.11.29.21.4.2 " /> <id nullFlavor="NA" /> <code codeSystem="local" code= "Fxc7289" displayName="Tobramycin" /> <statusCode code="completed" /> <effectiveTime value="" /> <value unit="" xsi:type ="PQ" value="<=4" /> <interpretationCode codeSystem="local" code="S " /> <referenceRange> <observationRange> <text /> </observationRange> </referenceRange> </ observation> </component> </organizer> </entry> <entry> <organizer moodCode="EVN" classCode="BATTERY"> <templateId root= "216.840.1.422961.10..22.4.1" /> <id nullFlavor="NA" /> <code codeSystem="local" code="DKW6352" displayName="Protime " /> <statusCode code="completed" /> <component> <observation moodCode="EVN" classCode="OBS"> <templateId root="216.840.1.135392.10...4.2" /> <id nullFlavor="NA" /> <code codeSystem="local" code="Zah232" displayName="INR" /> <statusCode code="completed" /> < effectiveTime value="562524741819" /> <value unit="" xsi:type="PQ" value="2.7" /> <referenceRange> <observationRange> <text>1.0-4.0</text> </observationRange> </ referenceRange> </observation> </component> <component> <observation moodCode="EVN" classCode="OBS"> <templateId root= "216.840.1.263026.10...4.2" /> <id nullFlavor="NA" /> < code codeSystem="local" code="Utu8453" displayName="Protime" /> < statusCode code="completed" /> <effectiveTime value="139644189963" /> <value unit="Sec" xsi:type="PQ" value="33.5" /> < interpretationCode codeSystem="local" code="H" /> <referenceRange> <observationRange> <text>9.9-12.8</text> </ observationRange> </referenceRange> </observation> </ component> </organizer> </entry> <entry> <organizer moodCode="EVN" classCode="BATTERY"> <templateId root="216.840.1.789924.10..22.4.1" /> <id nullFlavor="NA" /> <code codeSystem="local" code="GQL6926" displayName="Blood Culture" /> <statusCode code="completed" /> < component> <observation moodCode="EVN" classCode="OBS"> < templateId root="216.840.1.313934.10..4.2" /> <id nullFlavor="NA " /> <code codeSystem="local" code="Fms3137" displayName="PRELIM CULTURE RESULTS" /> <statusCode code="completed" /> < effectiveTime value="091375036068" /> <value unit="" xsi:type="PQ" value="Blood Culture Negative, No Growth Day 1" /> <referenceRange> <observationRange> <text /> </observationRange > </referenceRange> </observation> </component> < component> <observation moodCode="EVN" classCode="OBS"> < templateId root="03.28.840.1.422840.10..4.2" /> <id nullFlavor="NA " /> <code codeSystem="local" code="Kmw9427" displayName="FINAL CULTURE RESULTS" /> <statusCode code="completed" /> < effectiveTime value="590557081616" /> <value unit="" xsi:type="PQ" value="Blood Culture Negative, No Growth Day 5" /> <referenceRange> <observationRange> <text /> </observationRange > </referenceRange> </observation> </component> < component> <observation moodCode="EVN" classCode="OBS"> < templateId root="216.840.1.197969.10..4.2" /> <id nullFlavor="NA " /> <code codeSystem="local" code="Hih5196" displayName="MEDIA PLATED " /> <statusCode code="completed" /> <effectiveTime value= "124221894160" /> <value unit="" xsi:type="PQ" value="Setup at 21:29 on 09/13/8174Q3T9O\\J7J4SQuydy Culture Media Position C50" /> < referenceRange> <observationRange> <text /> < /observationRange> </referenceRange> </observation> </ component> <component> <observation moodCode="EVN" classCode="OBS"> <templateId root="03.28.840.1.572197.11.29.214.2" /> <id nullFlavor="NA" /> <code codeSystem="local" code="Huv3177" displayName= "CULTURE SOURCE" /> <statusCode code="completed" /> < effectiveTime value="178434884258" /> <value unit="" xsi:type="PQ" value="DRAWN @ RIGHT ARM" /> <referenceRange> < observationRange> <text /> </observationRange> </referenceRange> </observation> </component> </organizer> </ entry> <entry> <organizer moodCode="EVN" classCode="BATTERY"> < templateId root="03.28.840.1.369756.11.29.21.4.1" /> <id nullFlavor="NA" /> <code codeSystem="local" code="JHT8938" displayName="C-Reactive Protein" / > <statusCode code="completed" /> <component> <observation moodCode="EVN" classCode="OBS"> <templateId root= "03.28.840.1.909183.11.29.21.4.2" /> <id nullFlavor="NA" /> < code codeSystem="local" code="Uib7771" displayName="C-Reactive Protein" /> <statusCode code="completed" /> <effectiveTime value="629394666403 " /> <value unit="mg/dL" xsi:type="PQ" value="6.11" /> < interpretationCode codeSystem="local" code="H" /> <referenceRange> <observationRange> <text>0.00-0.50</text> </ observationRange> </referenceRange> </observation> </ component> </organizer> </entry> <entry> <organizer moodCode="EVN" classCode="BATTERY"> <templateId root="216.840.1.687339.10..22.4.1" /> <id nullFlavor="NA" /> <code codeSystem="local" code="UXH094" displayName="IFOBT Occult Blood" /> <statusCode code="completed" /> < component> <observation moodCode="EVN" classCode="OBS"> < templateId root="216.840.1.298207.10..22.4.2" /> <id nullFlavor="NA " /> <code codeSystem="local" code="Suk540" displayName="IFOBT Occult Blood" /> <statusCode code="completed" /> <effectiveTime value ="979734801627" /> <value unit="" xsi:type="PQ" value="NEGATIVE" /> <referenceRange> <observationRange> <text> Negative</text> </observationRange> </referenceRange> </observation> </component> </organizer> </entry> <entry> < organizer moodCode="EVN" classCode="BATTERY"> <templateId root= "216.840.1.734063.10..22.4.1" /> <id nullFlavor="NA" /> <code codeSystem="local" code="ADN8031" displayName="Blood Culture" /> < statusCode code="completed" /> <component> <observation moodCode= "EVN" classCode="OBS"> <templateId root="216.840.1.651319.10.4.2 " /> <id nullFlavor="NA" /> <code codeSystem="local" code= "Pvy1294" displayName="PRELIM CULTURE RESULTS" /> <statusCode code= "completed" /> <effectiveTime value="" /> <value unit="" xsi:type="PQ" value="Blood Culture Negative, No Growth Day 1" /> <referenceRange> <observationRange> <text /> </observationRange> </referenceRange> </observation> </ component> <component> <observation moodCode="EVN" classCode="OBS"> <templateId root="03.28.840.1.881049.11.29.21.4.2" /> <id nullFlavor="NA" /> <code codeSystem="local" code="Chu7223" displayName= "FINAL CULTURE RESULTS" /> <statusCode code="completed" /> < effectiveTime value="" /> <value unit="" xsi:type="PQ" value="Blood Culture Negative, No Growth Day 5" /> <referenceRange> <observationRange> <text /> </observationRange > </referenceRange> </observation> </component> < component> <observation moodCode="EVN" classCode="OBS"> < templateId root="216.840.1.710159.10.4.2" /> <id nullFlavor="NA " /> <code codeSystem="local" code="Bnw9463" displayName="MEDIA PLATED " /> <statusCode code="completed" /> <effectiveTime value= "" /> <value unit="" xsi:type="PQ" value="Setup at 21:29 on 09/13/[id number]\\H1G5HPeifh Culture Media Position C46" /> < referenceRange> <observationRange> <text /> < /observationRange> </referenceRange> </observation> </ component> <component> <observation moodCode="EVN" classCode="OBS"> <templateId root="216.840.1.595217.11.29.21.4.2" /> <id nullFlavor="NA" /> <code codeSystem="local" code="Ihi2307" displayName= "CULTURE SOURCE" /> <statusCode code="completed" /> < effectiveTime value="782069130587" /> <value unit="" xsi:type="PQ" value="DRAWN @ LEFT ARM" /> <referenceRange> < observationRange> <text /> </observationRange> </referenceRange> </observation> </component> </organizer> </ entry> <entry> <organizer moodCode="EVN" classCode="BATTERY"> < templateId root="216.840.1.649912.11.29.21.4.1" /> <id nullFlavor="NA" /> <code codeSystem="local" code="ORD3" displayName="Comprehensive Metabolic Panel" /> <statusCode code="completed" /> <component> < observation moodCode="EVN" classCode="OBS"> <templateId root= "216.840.1.245563.11.29.21.4.2" /> <id nullFlavor="NA" /> < code codeSystem="local" code="Res44" displayName="Albumin" /> < statusCode code="completed" /> <effectiveTime value="076696323291" /> <value unit="g/dL" xsi:type="PQ" value="3.1" /> < interpretationCode codeSystem="local" code="L" /> <referenceRange> <observationRange> <text>3.6-5.1</text> </ observationRange> </referenceRange> </observation> </ component> <component> <observation moodCode="EVN" classCode="OBS"> <templateId root="16.840.1.301835.10.20.22.4.2" /> <id nullFlavor="NA" /> <code codeSystem="local" code="Res45" displayName= "ALP" /> <statusCode code="completed" /> <effectiveTime value= "044264440827" /> <value unit="U/L" xsi:type="PQ" value="143" /> <interpretationCode codeSystem="local" code="H" /> <referenceRange > <observationRange> <text>35-130</text> </ observationRange> </referenceRange> </observation> </ component> <component> <observation moodCode="EVN" classCode="OBS"> <templateId root="03.28.840.1.464036.10..4.2" /> <id nullFlavor="NA" /> <code codeSystem="local" code="Res46" displayName= "ALT" /> <statusCode code="completed" /> <effectiveTime value= "" /> <value unit="U/L" xsi:type="PQ" value="18" /> <referenceRange> <observationRange> <text>6-45</text > </observationRange> </referenceRange> </observation > </component> <component> <observation moodCode="EVN" classCode="OBS"> <templateId root="03.28.840.1.043661.10.20.22.4.2" /> <id nullFlavor="NA" /> <code codeSystem="local" code="Res61" displayName="Anion Gap" /> <statusCode code="completed" /> < effectiveTime value="" /> <value unit="" xsi:type="PQ" value="15" /> <interpretationCode codeSystem="local" code="H" /> <referenceRange> <observationRange> <text>6-14</text > </observationRange> </referenceRange> </observation > </component> <component> <observation moodCode="EVN" classCode="OBS"> <templateId root="16.840.1.475915.10..22.4.2" /> <id nullFlavor="NA" /> <code codeSystem="local" code="Res48" displayName="AST" /> <statusCode code="completed" /> < effectiveTime value="" /> <value unit="U/L" xsi:type="PQ" value="20" /> <referenceRange> <observationRange> <text>2-40</text> </observationRange> </referenceRange> </observation> </component> <component> <observation moodCode="EVN" classCode="OBS"> <templateId root= "03.28.840.1.212644...22.4.2" /> <id nullFlavor="NA" /> < code codeSystem="local" code="Res26" displayName="BUN" /> <statusCode code="completed" /> <effectiveTime value="694950943980" /> < value unit="mg/dL" xsi:type="PQ" value="12" /> <referenceRange> <observationRange> <text>5-25</text> </ observationRange> </referenceRange> </observation> </ component> <component> <observation moodCode="EVN" classCode="OBS"> <templateId root="03.28.840.1.436352.11.29.21.4.2" /> <id nullFlavor="NA" /> <code codeSystem="local" code="Res5" displayName= "Calcium" /> <statusCode code="completed" /> <effectiveTime value="" /> <value unit="mg/dL" xsi:type="PQ" value="8.8" / > <referenceRange> <observationRange> <text>8.3 -10.4</text> </observationRange> </referenceRange> </ observation> </component> <component> <observation moodCode= "EVN" classCode="OBS"> <templateId root="216.840.1.069208.11.29.21.4.2 " /> <id nullFlavor="NA" /> <code codeSystem="local" code= "Res21" displayName="Chloride" /> <statusCode code="completed" /> <effectiveTime value="" /> <value unit="mmol/L" xsi: type="PQ" value="109" /> <referenceRange> <observationRange > <text>95-114</text> </observationRange> </ referenceRange> </observation> </component> <component> <observation moodCode="EVN" classCode="OBS"> <templateId root= "2.16.840.1.819963.10...4.2" /> <id nullFlavor="NA" /> < code codeSystem="local" code="Res49" displayName="CO2" /> <statusCode code="completed" /> <effectiveTime value="" /> < value unit="mEq/L" xsi:type="PQ" value="24" /> <referenceRange> <observationRange> <text>22-33</text> </ observationRange> </referenceRange> </observation> </ component> <component> <observation moodCode="EVN" classCode="OBS"> <templateId root="03.28.840.1.317165.10.20.22.4.2" /> <id nullFlavor="NA" /> <code codeSystem="local" code="Ggs516" displayName= "Creat" /> <statusCode code="completed" /> <effectiveTime value="" /> <value unit="mg/dL" xsi:type="PQ" value="0.63" /> <referenceRange> <observationRange> <text> 0.50-1.50</text> </observationRange> </referenceRange> </observation> </component> <component> <observation moodCode="EVN" classCode="OBS"> <templateId root= "03.28.840.1.062242.1022.4.2" /> <id nullFlavor="NA" /> < code codeSystem="local" code="Zdj987" displayName="eGFR" /> < statusCode code="completed" /> <effectiveTime value="" /> <value unit="mL/min/1.73m2" xsi:type="PQ" value="94" /> < referenceRange> <observationRange> <text>>59</text> </observationRange> </referenceRange> </observation> </component> <component> <observation moodCode="EVN" classCode ="OBS"> <templateId root="03.28.840.1.310142.10.2022.4.2" /> < id nullFlavor="NA" /> <code codeSystem="local" code="Res7" displayName= "Globulin" /> <statusCode code="completed" /> <effectiveTime value="073346703572" /> <value unit="g/dL" xsi:type="PQ" value="2.4" / > <referenceRange> <observationRange> <text>2.3 -3.5</text> </observationRange> </referenceRange> </ observation> </component> <component> <observation moodCode= "EVN" classCode="OBS"> <templateId root="216.840.1.008602.10..4.2 " /> <id nullFlavor="NA" /> <code codeSystem="local" code= "Res60" displayName="Glucose" /> <statusCode code="completed" /> <effectiveTime value="" /> <value unit="mg/dL" xsi:type ="PQ" value="93" /> <referenceRange> <observationRange> <text>70-110</text> </observationRange> </ referenceRange> </observation> </component> <component> <observation moodCode="EVN" classCode="OBS"> <templateId root= "03.28.840.1.343313.11.29.21.4.2" /> <id nullFlavor="NA" /> < code codeSystem="local" code="Res52" displayName="Osmo" /> <statusCode code="completed" /> <effectiveTime value="" /> < value unit="" xsi:type="PQ" value="297" /> <interpretationCode codeSystem="local" code="H" /> <referenceRange> < observationRange> <text>280-295</text> </ observationRange> </referenceRange> </observation> </ component> <component> <observation moodCode="EVN" classCode="OBS"> <templateId root="16.840.1.963911...4.2" /> <id nullFlavor="NA" /> <code codeSystem="local" code="Res20" displayName= "Potassium" /> <statusCode code="completed" /> <effectiveTime value="" /> <value unit="mmol/L" xsi:type="PQ" value="4.0" /> <referenceRange> <observationRange> <text> 3.5-5.3</text> </observationRange> </referenceRange> </observation> </component> <component> <observation moodCode= "EVN" classCode="OBS"> <templateId root="216.840.1.885191.10.20.22.4.2 " /> <id nullFlavor="NA" /> <code codeSystem="local" code= "Res19" displayName="Sodium" /> <statusCode code="completed" /> <effectiveTime value="" /> <value unit="mmol/L" xsi:type ="PQ" value="144" /> <referenceRange> <observationRange> <text>134-148</text> </observationRange> </ referenceRange> </observation> </component> <component> <observation moodCode="EVN" classCode="OBS"> <templateId root= "216.840.1.712315.10..22.4.2" /> <id nullFlavor="NA" /> < code codeSystem="local" code="Res51" displayName="TBil" /> <statusCode code="completed" /> <effectiveTime value="" /> < value unit="mg/dL" xsi:type="PQ" value="0.2" /> <referenceRange> <observationRange> <text>0.2-1.2</text> </ observationRange> </referenceRange> </observation> </ component> <component> <observation moodCode="EVN" classCode="OBS"> <templateId root="216.840.1.715203.10.20.22.4.2" /> <id nullFlavor="NA" /> <code codeSystem="local" code="Res24" displayName= "TP" /> <statusCode code="completed" /> <effectiveTime value= "" /> <value unit="g/dL" xsi:type="PQ" value="5.5" /> <interpretationCode codeSystem="local" code="L" /> <referenceRange > <observationRange> <text>6.0-8.3</text> </ observationRange> </referenceRange> </observation> </ component> </organizer> </entry> <entry> <organizer moodCode="EVN" classCode="BATTERY"> <templateId root="216.840.1.916266.10..22.4.1" /> <id nullFlavor="NA" /> <code codeSystem="local" code="ORD4" displayName="BMP" /> <statusCode code="completed" /> <component> <observation moodCode="EVN" classCode="OBS"> <templateId root= "216.840.1.843256.10..22.4.2" /> <id nullFlavor="NA" /> < code codeSystem="local" code="Res61" displayName="Anion Gap" /> < statusCode code="completed" /> <effectiveTime value="758375911439" /> <value unit="" xsi:type="PQ" value="15" /> < interpretationCode codeSystem="local" code="H" /> <referenceRange> <observationRange> <text>6-14</text> </ observationRange> </referenceRange> </observation> </ component> <component> <observation moodCode="EVN" classCode="OBS"> <templateId root="216.840.1.182081.10.20.22.4.2" /> <id nullFlavor="NA" /> <code codeSystem="local" code="Res26" displayName= "BUN" /> <statusCode code="completed" /> <effectiveTime value= "" /> <value unit="mg/dL" xsi:type="PQ" value="17" /> <referenceRange> <observationRange> <text>5-25</ text> </observationRange> </referenceRange> </ observation> </component> <component> <observation moodCode= "EVN" classCode="OBS"> <templateId root="216.840.1.869051.10..22.4.2 " /> <id nullFlavor="NA" /> <code codeSystem="local" code= "Res5" displayName="Calcium" /> <statusCode code="completed" /> <effectiveTime value="" /> <value unit="mg/dL" xsi:type= "PQ" value="9.1" /> <referenceRange> <observationRange> <text>8.3-10.4</text> </observationRange> </ referenceRange> </observation> </component> <component> <observation moodCode="EVN" classCode="OBS"> <templateId root= "216.840.1.113069.10..22.4.2" /> <id nullFlavor="NA" /> < code codeSystem="local" code="Res21" displayName="Chloride" /> < statusCode code="completed" /> <effectiveTime value="" /> <value unit="mmol/L" xsi:type="PQ" value="104" /> < referenceRange> <observationRange> <text>95-114</text> </observationRange> </referenceRange> </observation> </component> <component> <observation moodCode="EVN" classCode ="OBS"> <templateId root="16.840.1.017677.11.29.21.4.2" /> < id nullFlavor="NA" /> <code codeSystem="local" code="Res49" displayName ="CO2" /> <statusCode code="completed" /> <effectiveTime value ="" /> <value unit="mEq/L" xsi:type="PQ" value="29" /> <referenceRange> <observationRange> <text>22-33</ text> </observationRange> </referenceRange> </ observation> </component> <component> <observation moodCode= "EVN" classCode="OBS"> <templateId root="2.16.840.1.409820.11.29.21.4.2 " /> <id nullFlavor="NA" /> <code codeSystem="local" code= "Wmp836" displayName="Creat" /> <statusCode code="completed" /> <effectiveTime value="" /> <value unit="mg/dL" xsi:type= "PQ" value="0.72" /> <referenceRange> <observationRange> <text>0.50-1.50</text> </observationRange> </ referenceRange> </observation> </component> <component> <observation moodCode="EVN" classCode="OBS"> <templateId root= "2.16.840.1.811758.11.29.21.4.2" /> <id nullFlavor="NA" /> < code codeSystem="local" code="Ndh591" displayName="eGFR" /> < statusCode code="completed" /> <effectiveTime value="" /> <value unit="mL/min/1.73m2" xsi:type="PQ" value="80" /> < referenceRange> <observationRange> <text>>59</text> </observationRange> </referenceRange> </observation> </component> <component> <observation moodCode="EVN" classCode ="OBS"> <templateId root="216.840.1.972380.10..22.4.2" /> < id nullFlavor="NA" /> <code codeSystem="local" code="Res60" displayName ="Glucose" /> <statusCode code="completed" /> <effectiveTime value="869503410734" /> <value unit="mg/dL" xsi:type="PQ" value="85" / > <referenceRange> <observationRange> <text>70- 110</text> </observationRange> </referenceRange> </ observation> </component> <component> <observation moodCode= "EVN" classCode="OBS"> <templateId root="216.840.1.110277.10..22.4.2 " /> <id nullFlavor="NA" /> <code codeSystem="local" code= "Res52" displayName="Osmo" /> <statusCode code="completed" /> <effectiveTime value="984531698646" /> <value unit="" xsi:type="PQ" value="298" /> <interpretationCode codeSystem="local" code="H" /> <referenceRange> <observationRange> <text>280-295</ text> </observationRange> </referenceRange> </ observation> </component> <component> <observation moodCode= "EVN" classCode="OBS"> <templateId root="16.840.1.542486.10.20.22.4.2 " /> <id nullFlavor="NA" /> <code codeSystem="local" code= "Res20" displayName="Potassium" /> <statusCode code="completed" /> <effectiveTime value="621736304881" /> <value unit="mmol/L" xsi: type="PQ" value="4.1" /> <referenceRange> <observationRange > <text>3.5-5.3</text> </observationRange> </ referenceRange> </observation> </component> <component> <observation moodCode="EVN" classCode="OBS"> <templateId root= "16.840.1.444850.10.20.22.4.2" /> <id nullFlavor="NA" /> < code codeSystem="local" code="Res19" displayName="Sodium" /> < statusCode code="completed" /> <effectiveTime value="364191624166" /> <value unit="mmol/L" xsi:type="PQ" value="144" /> < referenceRange> <observationRange> <text>134-148</text> </observationRange> </referenceRange> </observation > </component> </organizer> </entry> <entry> <organizer moodCode= "EVN" classCode="BATTERY"> <templateId root="03.28.840.1.754724.10..22.4.1 " /> <id nullFlavor="NA" /> <code codeSystem="local" code="[id number]" displayName="Protime " /> <statusCode code="completed" /> <component> <observation moodCode="EVN" classCode="OBS"> <templateId root= "03.28.840.1.426017.10.2022.4.2" /> <id nullFlavor="NA" /> < code codeSystem="local" code="Ypw491" displayName="INR" /> <statusCode code="completed" /> <effectiveTime value="343387233279" /> < value unit="" xsi:type="PQ" value="2.6" /> <referenceRange> <observationRange> <text>1.0-4.0</text> </ observationRange> </referenceRange> </observation> </ component> <component> <observation moodCode="EVN" classCode="OBS"> <templateId root="216.840.1.541748.10..22.4.2" /> <id nullFlavor="NA" /> <code codeSystem="local" code="Hmx8557" displayName= "Protime" /> <statusCode code="completed" /> <effectiveTime value="418429624246" /> <value unit="Sec" xsi:type="PQ" value="31.9" / > <interpretationCode codeSystem="local" code="H" /> < referenceRange> <observationRange> <text>9.9-12.8</text > </observationRange> </referenceRange> </observation > </component> </organizer> </entry> <entry> <organizer moodCode= "EVN" classCode="BATTERY"> <templateId root="216.840.1.283343.10..22.4.1 " /> <id nullFlavor="NA" /> <code codeSystem="local" code="ORD68" displayName="Urinalysis" /> <statusCode code="completed" /> <component > <observation moodCode="EVN" classCode="OBS"> <templateId root= "216.840.1.418647.10..22.4.2" /> <id nullFlavor="NA" /> < code codeSystem="local" code="Rsh8509" displayName="Icotest" /> < statusCode code="completed" /> <effectiveTime value="687576793932" /> <value unit="" xsi:type="PQ" value="N/A" /> < interpretationCode codeSystem="local" code="A" /> <referenceRange> <observationRange> <text>Negative</text> </ observationRange> </referenceRange> </observation> </ component> <component> <observation moodCode="EVN" classCode="OBS"> <templateId root="216.840.1.152104.10..4.2" /> <id nullFlavor="NA" /> <code codeSystem="local" code="Ted202" displayName= "Urine Volume" /> <statusCode code="completed" /> < effectiveTime value="" /> <value unit="" xsi:type="PQ" value="Urine Volume Sufficient (10mL)" /> <referenceRange> < observationRange> <text /> </observationRange> </referenceRange> </observation> </component> <component> <observation moodCode="EVN" classCode="OBS"> <templateId root= "216.840.1.395113.10..4.2" /> <id nullFlavor="NA" /> < code codeSystem="local" code="Mdq928" displayName="Urine-Appearance" /> <statusCode code="completed" /> <effectiveTime value="" / > <value unit="" xsi:type="PQ" value="Clear" /> < referenceRange> <observationRange> <text>Clear</text> </observationRange> </referenceRange> </observation> </component> <component> <observation moodCode="EVN" classCode= "OBS"> <templateId root="216.840.1.162311.10.22.4.2" /> < id nullFlavor="NA" /> <code codeSystem="local" code="Ffn972" displayName="Urine-Bacteria" /> <statusCode code="completed" /> <effectiveTime value="" /> <value unit="" xsi:type="PQ" value="Negative" /> <referenceRange> <observationRange> <text> </text> </observationRange> </ referenceRange> </observation> </component> <component> <observation moodCode="EVN" classCode="OBS"> <templateId root= "216.840.1.005928.10..4.2" /> <id nullFlavor="NA" /> < code codeSystem="local" code="Epo460" displayName="Urine-Bilirubin" /> <statusCode code="completed" /> <effectiveTime value="" /> <value unit="" xsi:type="PQ" value="Negative" /> < referenceRange> <observationRange> <text>Negative</text > </observationRange> </referenceRange> </observation > </component> <component> <observation moodCode="EVN" classCode="OBS"> <templateId root="216.840.1.078298.11.29.21.4.2" /> <id nullFlavor="NA" /> <code codeSystem="local" code="Ebm535" displayName="Urine-Blood" /> <statusCode code="completed" /> < effectiveTime value="" /> <value unit="" xsi:type="PQ" value="Trace-intact" /> <interpretationCode codeSystem="local" code="A " /> <referenceRange> <observationRange> <text> Negative</text> </observationRange> </referenceRange> </observation> </component> <component> <observation moodCode ="EVN" classCode="OBS"> <templateId root= "216.840.1.860163...4.2" /> <id nullFlavor="NA" /> < code codeSystem="local" code="Vqx255" displayName="Urine-Color" /> < statusCode code="completed" /> <effectiveTime value="" /> <value unit="" xsi:type="PQ" value="Yellow" /> <referenceRange > <observationRange> <text>Colorless-Lt. Yellow</text> </observationRange> </referenceRange> </observation> </component> <component> <observation moodCode="EVN" classCode ="OBS"> <templateId root="216.840.1.676251.10..4.2" /> < id nullFlavor="NA" /> <code codeSystem="local" code="Cla359" displayName="Urine-Epithelial Cells" /> <statusCode code="completed" / > <effectiveTime value="154314923834" /> <value unit="" xsi: type="PQ" value="0-5/HPF" /> <interpretationCode codeSystem="local" code="A" /> <referenceRange> <observationRange> <text> </text> </observationRange> </referenceRange> </observation> </component> <component> <observation moodCode="EVN" classCode="OBS"> <templateId root= "840.1.992394.11.29.21.4.2" /> <id nullFlavor="NA" /> < code codeSystem="local" code="Jhi312" displayName="Urine-Glucose" /> < statusCode code="completed" /> <effectiveTime value="421250457242" /> <value unit="" xsi:type="PQ" value="Negative" /> < referenceRange> <observationRange> <text>Negative</text > </observationRange> </referenceRange> </observation > </component> <component> <observation moodCode="EVN" classCode="OBS"> <templateId root="03.28.840.1.148074.10.2022.4.2" /> <id nullFlavor="NA" /> <code codeSystem="local" code="Thx937" displayName="Urine-Ketones" /> <statusCode code="completed" /> <effectiveTime value="" /> <value unit="" xsi:type="PQ" value="Negative" /> <referenceRange> <observationRange> <text>Negative</text> </observationRange> </ referenceRange> </observation> </component> <component> <observation moodCode="EVN" classCode="OBS"> <templateId root= "216.840.1.750718.10..4.2" /> <id nullFlavor="NA" /> < code codeSystem="local" code="Eti064" displayName="Urine-Leukocytes" /> <statusCode code="completed" /> <effectiveTime value="" / > <value unit="" xsi:type="PQ" value="Negative" /> < referenceRange> <observationRange> <text>Negative</text > </observationRange> </referenceRange> </observation > </component> <component> <observation moodCode="EVN" classCode="OBS"> <templateId root="03.28.840.1.958501.11.29.21.4.2" /> <id nullFlavor="NA" /> <code codeSystem="local" code="Qkh951" displayName="Urine-Nitrite" /> <statusCode code="completed" /> <effectiveTime value="" /> <value unit="" xsi:type="PQ" value="Negative" /> <referenceRange> <observationRange> <text>Negative</text> </observationRange> </ referenceRange> </observation> </component> <component> <observation moodCode="EVN" classCode="OBS"> <templateId root= "03.28.840.1.157635.11.29.21.4.2" /> <id nullFlavor="NA" /> < code codeSystem="local" code="Iim722" displayName="Urine-Other" /> < statusCode code="completed" /> <effectiveTime value="" /> <value unit="" xsi:type="PQ" value=" Urine Saved if Culture Needed ( 48hrs from time of collection)" /> <interpretationCode codeSystem= "local" code="A" /> <referenceRange> <observationRange> <text> </text> </observationRange> </ referenceRange> </observation> </component> <component> <observation moodCode="EVN" classCode="OBS"> <templateId root= "2.16.840.1.137051.10..22.4.2" /> <id nullFlavor="NA" /> < code codeSystem="local" code="Gbx742" displayName="Urine-pH" /> < statusCode code="completed" /> <effectiveTime value="" /> <value unit="" xsi:type="PQ" value="7.5" /> <referenceRange> <observationRange> <text>5-8.5</text> </ observationRange> </referenceRange> </observation> </ component> <component> <observation moodCode="EVN" classCode="OBS"> <templateId root="2.16.840.1.380171.10..22.4.2" /> <id nullFlavor="NA" /> <code codeSystem="local" code="Pgp513" displayName= "Urine-Protein" /> <statusCode code="completed" /> < effectiveTime value="" /> <value unit="" xsi:type="PQ" value="Negative" /> <referenceRange> <observationRange> <text>Negative</text> </observationRange> </ referenceRange> </observation> </component> <component> <observation moodCode="EVN" classCode="OBS"> <templateId root= "216.840.1.469957.10..22.4.2" /> <id nullFlavor="NA" /> < code codeSystem="local" code="Agc453" displayName="Urine-RBC" /> < statusCode code="completed" /> <effectiveTime value="" /> <value unit="" xsi:type="PQ" value="0-2/HPF" /> < interpretationCode codeSystem="local" code="A" /> <referenceRange> <observationRange> <text> </text> </ observationRange> </referenceRange> </observation> </ component> <component> <observation moodCode="EVN" classCode="OBS"> <templateId root="216.840.1.948418.11.29.21.4.2" /> <id nullFlavor="NA" /> <code codeSystem="local" code="Mup456" displayName= "Urine-Specific [place]" /> <statusCode code="completed" /> < effectiveTime value="" /> <value unit="" xsi:type="PQ" value="1.015" /> <referenceRange> <observationRange> <text>1.000-1.030</text> </observationRange> </ referenceRange> </observation> </component> <component> <observation moodCode="EVN" classCode="OBS"> <templateId root= "216.840.1.864227.10.20.22.4.2" /> <id nullFlavor="NA" /> < code codeSystem="local" code="Cty762" displayName="Urine-WBC" /> < statusCode code="completed" /> <effectiveTime value="" /> <value unit="" xsi:type="PQ" value="0-2/HPF" /> < interpretationCode codeSystem="local" code="A" /> <referenceRange> <observationRange> <text> </text> </ observationRange> </referenceRange> </observation> </ component> <component> <observation moodCode="EVN" classCode="OBS"> <templateId root="16.840.1.024711.10.20.22.4.2" /> <id nullFlavor="NA" /> <code codeSystem="local" code="Ono238" displayName= "Urobilinogen" /> <statusCode code="completed" /> < effectiveTime value="110715099584" /> <value unit="" xsi:type="PQ" value="0.2" /> <referenceRange> <observationRange> <text>0.2-1.0</text> </observationRange> </ referenceRange> </observation> </component> </organizer> </entry > <entry> <organizer moodCode="EVN" classCode="BATTERY"> <templateId root="03.28.840.1.044967..22.4.1" /> <id nullFlavor="NA" /> <code codeSystem="local" code="MXL1671" displayName="Protime " /> <statusCode code="completed" /> <component> <observation moodCode="EVN" classCode="OBS"> <templateId root="03.28.840.1.733711.10.2022.4.2" /> <id nullFlavor="NA" /> <code codeSystem="local" code="Kuk789" displayName="INR" /> <statusCode code="completed" /> < effectiveTime value="196954225188" /> <value unit="" xsi:type="PQ" value="2.5" /> <referenceRange> <observationRange> <text>1.0-4.0</text> </observationRange> </ referenceRange> </observation> </component> <component> <observation moodCode="EVN" classCode="OBS"> <templateId root= "03.28.840.1.364344.1022.4.2" /> <id nullFlavor="NA" /> < code codeSystem="local" code="Jdh5124" displayName="Protime" /> < statusCode code="completed" /> <effectiveTime value="738740575765" /> <value unit="Sec" xsi:type="PQ" value="30.5" /> < interpretationCode codeSystem="local" code="H" /> <referenceRange> <observationRange> <text>9.9-12.8</text> </ observationRange> </referenceRange> </observation> </ component> </organizer> </entry> <entry> <organizer moodCode="EVN" classCode="BATTERY"> <templateId root="03.28.840.1.130464.10...4.1" /> <id nullFlavor="NA" /> <code codeSystem="local" code="HGB" displayName ="HEMOGLOBIN" /> <statusCode code="completed" /> <component> < observation moodCode="EVN" classCode="OBS"> <templateId root= "03.28.840.1.190818.22.4.2" /> <id nullFlavor="NA" /> < code codeSystem="local" code="MCV" displayName="MEAN CELL VOLUME" /> < statusCode code="completed" /> <effectiveTime value="899257030479" /> <value unit="fl" xsi:type="PQ" value="94.4" /> <referenceRange > <observationRange> <text>80.0-100.0</text> </observationRange> </referenceRange> </observation> </ component> <component> <observation moodCode="EVN" classCode="OBS"> <templateId root="216.840.1.786265.1022.4.2" /> <id nullFlavor="NA" /> <code codeSystem="local" code="HGBT" displayName= "HEMOGLOBIN" /> <statusCode code="completed" /> < effectiveTime value="240501676883" /> <value unit="gm/dL" xsi:type="PQ " value="12.1" /> <referenceRange> <observationRange> <text>12.0-16.0</text> </observationRange> </ referenceRange> </observation> </component> </organizer> </entry > <entry> <organizer moodCode="EVN" classCode="BATTERY"> <templateId root="2.16.840.1.644464.10.4.1" /> <id nullFlavor="NA" /> <code codeSystem="local" code="PT" displayName="PROTHROMBIN TIME WITH INR" /> < statusCode code="completed" /> <component> <observation moodCode= "EVN" classCode="OBS"> <templateId root="2.16.840.1.964336.10..22.4.2 " /> <id nullFlavor="NA" /> <code codeSystem="local" code= "INRX" displayName="INTERNATIONAL NORMAL RATIO" /> <statusCode code= "completed" /> <effectiveTime value="485431423612" /> <value unit="" xsi:type="PQ" value="2.6" /> <interpretationCode codeSystem= "local" code="*" /> <referenceRange> <observationRange> <text>0.9-1.1</text> </observationRange> </ referenceRange> </observation> </component> <component> <observation moodCode="EVN" classCode="OBS"> <templateId root= "216.840.1.127973.10..22.4.2" /> <id nullFlavor="NA" /> < code codeSystem="local" code="PTPAT" displayName="PROTHROMBIN TIME" /> <statusCode code="completed" /> <effectiveTime value="673119239216" /> <value unit="sec" xsi:type="PQ" value="29.3" /> < interpretationCode codeSystem="local" code="*" /> <referenceRange> <observationRange> <text>10.0-12.8</text> </ observationRange> </referenceRange> </observation> </ component> </organizer> </entry> <entry> <organizer moodCode="EVN" classCode="BATTERY"> <templateId root="16.840.1.796895.10..22.4.1" /> <id nullFlavor="NA" /> <code codeSystem="local" code="METAB" displayName="METABOLIC PANEL, BASIC" /> <statusCode code="completed" /> <component> <observation moodCode="EVN" classCode="OBS"> < templateId root="16.840.1.212775.10..22.4.2" /> <id nullFlavor="NA " /> <code codeSystem="local" code="K" displayName="POTASSIUM" /> <statusCode code="completed" /> <effectiveTime value="853323420014 " /> <value unit="mmol/L" xsi:type="PQ" value="4.2" /> < referenceRange> <observationRange> <text>3.5-5.3</text> </observationRange> </referenceRange> </observation > </component> <component> <observation moodCode="EVN" classCode="OBS"> <templateId root="03.28.840.1.915049.10..22.4.2" /> <id nullFlavor="NA" /> <code codeSystem="local" code="eGFR" displayName="EST GFR (MDRD)" /> <statusCode code="completed" /> <effectiveTime value="" /> <value unit="mL/min" xsi:type ="PQ" value="> 60" /> <referenceRange> <observationRange > <text>> 59</text> </observationRange> </ referenceRange> </observation> </component> <component> <observation moodCode="EVN" classCode="OBS"> <templateId root= "03.28.840.1.605787.10...4.2" /> <id nullFlavor="NA" /> < code codeSystem="local" code="GAP" displayName="ANION GAP" /> < statusCode code="completed" /> <effectiveTime value="" /> <value unit="mmol/L" xsi:type="PQ" value="10" /> < referenceRange> <observationRange> <text>5-15</text> </observationRange> </referenceRange> </observation> </component> <component> <observation moodCode="EVN" classCode= "OBS"> <templateId root="03.28.840.1.465521.10..22.4.2" /> < id nullFlavor="NA" /> <code codeSystem="local" code="eCrCl" displayName ="EST CrCl (CG)" /> <statusCode code="completed" /> < effectiveTime value="" /> <value unit="mL/min" xsi:type="PQ " value="> 60" /> <referenceRange> <observationRange> <text>> 59</text> </observationRange> </ referenceRange> </observation> </component> <component> <observation moodCode="EVN" classCode="OBS"> <templateId root= "216.840.1.162455.10..22.4.2" /> <id nullFlavor="NA" /> < code codeSystem="local" code="GLU" displayName="GLUCOSE" /> < statusCode code="completed" /> <effectiveTime value="415050493084" /> <value unit="mg/dL" xsi:type="PQ" value="84" /> < referenceRange> <observationRange> <text>70-99</text> </observationRange> </referenceRange> </observation> </component> <component> <observation moodCode="EVN" classCode= "OBS"> <templateId root="03.28.840.1.955142.11.29.21.4.2" /> < id nullFlavor="NA" /> <code codeSystem="local" code="CA" displayName= "CALCIUM" /> <statusCode code="completed" /> <effectiveTime value="838183215602" /> <value unit="mg/dL" xsi:type="PQ" value="9.4" / > <referenceRange> <observationRange> <text>8.5 -10.1</text> </observationRange> </referenceRange> </ observation> </component> <component> <observation moodCode= "EVN" classCode="OBS"> <templateId root="03.28.840.1.524771...4.2 " /> <id nullFlavor="NA" /> <code codeSystem="local" code="BUN " displayName="BLOOD UREA NITROGEN" /> <statusCode code="completed" /> <effectiveTime value="" /> <value unit="mg/dL" xsi:type="PQ" value="19" /> <referenceRange> < observationRange> <text>7-20</text> </observationRange> </referenceRange> </observation> </component> < component> <observation moodCode="EVN" classCode="OBS"> < templateId root="216.840.1.323905.10..22.4.2" /> <id nullFlavor="NA " /> <code codeSystem="local" code="CREAT" displayName="CREATININE" /> <statusCode code="completed" /> <effectiveTime value= "000356018096" /> <value unit="mg/dL" xsi:type="PQ" value="0.8" /> <referenceRange> <observationRange> <text>0.6-1.0< /text> </observationRange> </referenceRange> </ observation> </component> <component> <observation moodCode= "EVN" classCode="OBS"> <templateId root="03.28.840.1.747868.10...4.2 " /> <id nullFlavor="NA" /> <code codeSystem="local" code="NA " displayName="SODIUM" /> <statusCode code="completed" /> < effectiveTime value="060513872800" /> <value unit="mmol/L" xsi:type="PQ " value="141" /> <referenceRange> <observationRange> <text>135-148</text> </observationRange> </ referenceRange> </observation> </component> <component> <observation moodCode="EVN" classCode="OBS"> <templateId root= "03.28.840.1.149955.10..22.4.2" /> <id nullFlavor="NA" /> < code codeSystem="local" code="CL" displayName="CHLORIDE" /> < statusCode code="completed" /> <effectiveTime value="936710083599" /> <value unit="mmol/L" xsi:type="PQ" value="101" /> < referenceRange> <observationRange> <text>98-110</text> </observationRange> </referenceRange> </observation> </component> <component> <observation moodCode="EVN" classCode ="OBS"> <templateId root="16.840.1.018291.11.29.21.4.2" /> < id nullFlavor="NA" /> <code codeSystem="local" code="CO2" displayName= "CARBON DIOXIDE" /> <statusCode code="completed" /> < effectiveTime value="026817327607" /> <value unit="mmol/L" xsi:type="PQ " value="30" /> <referenceRange> <observationRange> <text>21-32</text> </observationRange> </ referenceRange> </observation> </component> </organizer> </entry > <entry> <organizer moodCode="EVN" classCode="BATTERY"> <templateId root="16.840.1.938513.10..4.1" /> <id nullFlavor="NA" /> <code codeSystem="local" code="MRSAS" displayName="MRSA SURVEILLANCE SCREEN" /> < statusCode code="completed" /> <component> <observation moodCode= "EVN" classCode="OBS"> <templateId root="16.840.1.880660.10...4.2 " /> <id nullFlavor="NA" /> <code codeSystem="local" code="MB " displayName="Microbiology" /> <statusCode code="completed" /> <effectiveTime value="691640947238" /> <value xsi:type="ST" value="< pre><b>MRSA SURVEILLANCE SCREEN</b> See BelowMRSA SURVEILLANCE SCREEN(F) Papo Date/Time: 09/18/2016 12:23 Dina Date/Time: 09/19/2016 14:40SOURCE: ANTERIOR NARESSPEC DESC: [facility]NO [facility] [place] [address]</pre> " /> <referenceRange> <observationRange> <text /> </observationRange> </referenceRange> </ observation> </component> </organizer> </entry> <entry> <organizer moodCode="EVN" classCode="BATTERY"> <templateId root= "2.16.840.1.457740.10..22.4.1" /> <id nullFlavor="NA" /> <code codeSystem="local" code="CBC" displayName="CBC" /> <statusCode code= "completed" /> <component> <observation moodCode="EVN" classCode= "OBS"> <templateId root="2.16.840.1.621347.10..22.4.2" /> < id nullFlavor="NA" /> <code codeSystem="local" code="MCH" displayName= "MEAN CELL HGB" /> <statusCode code="completed" /> < effectiveTime value="207073847198" /> <value unit="pg" xsi:type="PQ" value="29.2" /> <referenceRange> <observationRange> <text>27.0-33.0</text> </observationRange> </ referenceRange> </observation> </component> <component> <observation moodCode="EVN" classCode="OBS"> <templateId root= "2.16.840.1.055342.10..22.4.2" /> <id nullFlavor="NA" /> < code codeSystem="local" code="MCHC" displayName="MEAN CELL HGB CONCENTRATION" / > <statusCode code="completed" /> <effectiveTime value= "129518228593" /> <value unit="g/dL" xsi:type="PQ" value="31.4" /> <interpretationCode codeSystem="local" code="*" /> < referenceRange> <observationRange> <text>32.0-37.0</text > </observationRange> </referenceRange> </observation > </component> <component> <observation moodCode="EVN" classCode="OBS"> <templateId root="03.28.840.1.817066.10.20.22.4.2" /> <id nullFlavor="NA" /> <code codeSystem="local" code="MCV" displayName="MEAN CELL VOLUME" /> <statusCode code="completed" /> <effectiveTime value="197230312345" /> <value unit="fl" xsi:type= "PQ" value="92.9" /> <referenceRange> <observationRange> <text>80.0-100.0</text> </observationRange> </ referenceRange> </observation> </component> <component> <observation moodCode="EVN" classCode="OBS"> <templateId root= "03.28.840.1.828098.10.20.22.4.2" /> <id nullFlavor="NA" /> < code codeSystem="local" code="MPVT" displayName="MEAN PLATELET VOLUME" /> <statusCode code="completed" /> <effectiveTime value="552354830096 " /> <value unit="fl" xsi:type="PQ" value="9.3" /> < referenceRange> <observationRange> <text>8.5-10.9</text > </observationRange> </referenceRange> </observation > </component> <component> <observation moodCode="EVN" classCode="OBS"> <templateId root="03.28.840.1.134291.10..22.4.2" /> <id nullFlavor="NA" /> <code codeSystem="local" code="RBC" displayName="RED BLOOD CELL" /> <statusCode code="completed" /> <effectiveTime value="968002284560" /> <value unit="m/cumm" xsi:type ="PQ" value="3.36" /> <interpretationCode codeSystem="local" code="*" / > <referenceRange> <observationRange> <text> 4.00-6.00</text> </observationRange> </referenceRange> </observation> </component> <component> <observation moodCode="EVN" classCode="OBS"> <templateId root= "840.1.003517.1022.4.2" /> <id nullFlavor="NA" /> < code codeSystem="local" code="RDW" displayName="RED CELL DISTRIBUTION WIDTH" /> <statusCode code="completed" /> <effectiveTime value= "107058066943" /> <value unit="%" xsi:type="PQ" value="15.8" /> <interpretationCode codeSystem="local" code="*" /> < referenceRange> <observationRange> <text>11.0-15.6</text > </observationRange> </referenceRange> </observation > </component> <component> <observation moodCode="EVN" classCode="OBS"> <templateId root="840.1.111988.10..22.4.2" /> <id nullFlavor="NA" /> <code codeSystem="local" code="WBC" displayName="WHITE BLOOD CELL" /> <statusCode code="completed" /> <effectiveTime value="184825751122" /> <value unit="k/cumm" xsi: type="PQ" value="7.8" /> <referenceRange> <observationRange > <text>5.0-10.0</text> </observationRange> </ referenceRange> </observation> </component> <component> <observation moodCode="EVN" classCode="OBS"> <templateId root= "16.840.1.932388.10.20.22.4.2" /> <id nullFlavor="NA" /> < code codeSystem="local" code="HGBT" displayName="HEMOGLOBIN" /> < statusCode code="completed" /> <effectiveTime value="393506227562" /> <value unit="gm/dL" xsi:type="PQ" value="9.8" /> < interpretationCode codeSystem="local" code="*" /> <referenceRange> <observationRange> <text>12.0-16.0</text> </ observationRange> </referenceRange> </observation> </ component> <component> <observation moodCode="EVN" classCode="OBS"> <templateId root="03.28.840.1.858500.10..22.4.2" /> <id nullFlavor="NA" /> <code codeSystem="local" code="HCTT" displayName= "HEMATOCRIT" /> <statusCode code="completed" /> < effectiveTime value="660257895872" /> <value unit="%" xsi:type="PQ " value="31.2" /> <interpretationCode codeSystem="local" code="*" /> <referenceRange> <observationRange> <text>37.0- 47.0</text> </observationRange> </referenceRange> </ observation> </component> <component> <observation moodCode= "EVN" classCode="OBS"> <templateId root="03.28.840.1.029539.10.20.4.2 " /> <id nullFlavor="NA" /> <code codeSystem="local" code= "PLTT" displayName="PLATELET COUNT" /> <statusCode code="completed" /> <effectiveTime value="924808296668" /> <value unit="k/cumm" xsi:type="PQ" value="334" /> <referenceRange> < observationRange> <text>150-400</text> </ observationRange> </referenceRange> </observation> </ component> </organizer> </entry> <entry> <organizer moodCode="EVN" classCode="BATTERY"> <templateId root="16.840.1.729559.22.4.1" /> <id nullFlavor="NA" /> <code codeSystem="local" code="PT" displayName= "PROTHROMBIN TIME WITH INR" /> <statusCode code="completed" /> < component> <observation moodCode="EVN" classCode="OBS"> < templateId root="16.840.1.198536.10.22.4.2" /> <id nullFlavor="NA " /> <code codeSystem="local" code="INRX" displayName="INTERNATIONAL NORMAL RATIO" /> <statusCode code="completed" /> < effectiveTime value="178204566595" /> <value unit="" xsi:type="PQ" value="2.3" /> <interpretationCode codeSystem="local" code="*" /> <referenceRange> <observationRange> <text>0.9-1.1</ text> </observationRange> </referenceRange> </ observation> </component> <component> <observation moodCode= "EVN" classCode="OBS"> <templateId root="03.28.840.1.671610.1022.4.2 " /> <id nullFlavor="NA" /> <code codeSystem="local" code= "PTPAT" displayName="PROTHROMBIN TIME" /> <statusCode code="completed" /> <effectiveTime value="" /> <value unit="sec" xsi:type="PQ" value="25.9" /> <interpretationCode codeSystem="local" code="*" /> <referenceRange> <observationRange> <text>10.0-12.8</text> </observationRange> </ referenceRange> </observation> </component> </organizer> </entry > <entry> <organizer moodCode="EVN" classCode="BATTERY"> <templateId root="03.28.840.1.388796..22.4.1" /> <id nullFlavor="NA" /> <code codeSystem="local" code="METABC" displayName="METABOLIC PANEL, COMPREHN" /> <statusCode code="completed" /> <component> <observation moodCode= "EVN" classCode="OBS"> <templateId root="03.28.840.1.722611..22.4.2 " /> <id nullFlavor="NA" /> <code codeSystem="local" code="K" displayName="POTASSIUM" /> <statusCode code="completed" /> < effectiveTime value="451238559244" /> <value unit="mmol/L" xsi:type="PQ " value="4.1" /> <referenceRange> <observationRange> <text>3.5-5.3</text> </observationRange> </ referenceRange> </observation> </component> <component> <observation moodCode="EVN" classCode="OBS"> <templateId root= "03.28.840.1.915748.10.2022.4.2" /> <id nullFlavor="NA" /> < code codeSystem="local" code="eGFR" displayName="EST GFR (MDRD)" /> < statusCode code="completed" /> <effectiveTime value="" /> <value unit="mL/min" xsi:type="PQ" value="> 60" /> < referenceRange> <observationRange> <text>> 59</text> </observationRange> </referenceRange> </observation > </component> <component> <observation moodCode="EVN" classCode="OBS"> <templateId root="216.840.1.189661.10...4.2" /> <id nullFlavor="NA" /> <code codeSystem="local" code="GAP" displayName="ANION GAP" /> <statusCode code="completed" /> < effectiveTime value="" /> <value unit="mmol/L" xsi:type="PQ " value="6" /> <referenceRange> <observationRange> <text>5-15</text> </observationRange> </referenceRange > </observation> </component> <component> <observation moodCode="EVN" classCode="OBS"> <templateId root= "216.840.1.640981.10..22.4.2" /> <id nullFlavor="NA" /> < code codeSystem="local" code="eCrCl" displayName="EST CrCl (CG)" /> < statusCode code="completed" /> <effectiveTime value="" /> <value unit="mL/min" xsi:type="PQ" value="> 60" /> < referenceRange> <observationRange> <text>> 59</text> </observationRange> </referenceRange> </observation > </component> <component> <observation moodCode="EVN" classCode="OBS"> <templateId root="216.840.1.873087.22.4.2" /> <id nullFlavor="NA" /> <code codeSystem="local" code="GLU" displayName="GLUCOSE" /> <statusCode code="completed" /> < effectiveTime value="" /> <value unit="mg/dL" xsi:type="PQ " value="93" /> <referenceRange> <observationRange> <text>70-99</text> </observationRange> </ referenceRange> </observation> </component> <component> <observation moodCode="EVN" classCode="OBS"> <templateId root= "216.840.1.245927.11.29.21.4.2" /> <id nullFlavor="NA" /> < code codeSystem="local" code="CA" displayName="CALCIUM" /> <statusCode code="completed" /> <effectiveTime value="" /> < value unit="mg/dL" xsi:type="PQ" value="8.0" /> <interpretationCode codeSystem="local" code="*" /> <referenceRange> < observationRange> <text>8.5-10.1</text> </ observationRange> </referenceRange> </observation> </ component> <component> <observation moodCode="EVN" classCode="OBS"> <templateId root="16.840.1.916863.22.4.2" /> <id nullFlavor="NA" /> <code codeSystem="local" code="BUN" displayName= "BLOOD UREA NITROGEN" /> <statusCode code="completed" /> < effectiveTime value="379716992563" /> <value unit="mg/dL" xsi:type="PQ " value="14" /> <referenceRange> <observationRange> <text>7-20</text> </observationRange> </referenceRange > </observation> </component> <component> <observation moodCode="EVN" classCode="OBS"> <templateId root= "216.840.1.459556.10.22.4.2" /> <id nullFlavor="NA" /> < code codeSystem="local" code="CREAT" displayName="CREATININE" /> < statusCode code="completed" /> <effectiveTime value="888406580880" /> <value unit="mg/dL" xsi:type="PQ" value="0.8" /> < referenceRange> <observationRange> <text>0.6-1.0</text> </observationRange> </referenceRange> </observation > </component> <component> <observation moodCode="EVN" classCode="OBS"> <templateId root="216.840.1.826361.11.29.21.4.2" /> <id nullFlavor="NA" /> <code codeSystem="local" code="NA" displayName="SODIUM" /> <statusCode code="completed" /> < effectiveTime value="145029882335" /> <value unit="mmol/L" xsi:type="PQ " value="141" /> <referenceRange> <observationRange> <text>135-148</text> </observationRange> </ referenceRange> </observation> </component> <component> <observation moodCode="EVN" classCode="OBS"> <templateId root= "216.840.1.293495.10.22.4.2" /> <id nullFlavor="NA" /> < code codeSystem="local" code="CL" displayName="CHLORIDE" /> < statusCode code="completed" /> <effectiveTime value="307727544546" /> <value unit="mmol/L" xsi:type="PQ" value="106" /> < referenceRange> <observationRange> <text>98-110</text> </observationRange> </referenceRange> </observation> </component> <component> <observation moodCode="EVN" classCode ="OBS"> <templateId root="03.28.840.1.148605.10.20.22.4.2" /> < id nullFlavor="NA" /> <code codeSystem="local" code="AST" displayName= "AST/SGOT" /> <statusCode code="completed" /> <effectiveTime value="" /> <value unit="Units/L" xsi:type="PQ" value="42" /> <interpretationCode codeSystem="local" code="*" /> < referenceRange> <observationRange> <text>10-37</text> </observationRange> </referenceRange> </observation> </component> <component> <observation moodCode="EVN" classCode= "OBS"> <templateId root="03.28.840.1.440866.10..4.2" /> < id nullFlavor="NA" /> <code codeSystem="local" code="ALT" displayName= "ALT/SGPT" /> <statusCode code="completed" /> <effectiveTime value="" /> <value unit="Units/L" xsi:type="PQ" value="28" /> <referenceRange> <observationRange> <text>& lt; 66</text> </observationRange> </referenceRange> < /observation> </component> <component> <observation moodCode= "EVN" classCode="OBS"> <templateId root="03.28.840.1.815759.10.20.22.4.2 " /> <id nullFlavor="NA" /> <code codeSystem="local" code="CO2 " displayName="CARBON DIOXIDE" /> <statusCode code="completed" /> <effectiveTime value="790390182120" /> <value unit="mmol/L" xsi: type="PQ" value="29" /> <referenceRange> <observationRange> <text>21-32</text> </observationRange> </ referenceRange> </observation> </component> <component> <observation moodCode="EVN" classCode="OBS"> <templateId root= "216.840.1.936455.10.22.4.2" /> <id nullFlavor="NA" /> < code codeSystem="local" code="TP" displayName="TOTAL PROTEIN" /> < statusCode code="completed" /> <effectiveTime value="557001705673" /> <value unit="gm/dL" xsi:type="PQ" value="5.6" /> < interpretationCode codeSystem="local" code="*" /> <referenceRange> <observationRange> <text>6.4-8.2</text> </ observationRange> </referenceRange> </observation> </ component> <component> <observation moodCode="EVN" classCode="OBS"> <templateId root="2.16.840.1.448449.10..22.4.2" /> <id nullFlavor="NA" /> <code codeSystem="local" code="ALB" displayName= "ALBUMIN" /> <statusCode code="completed" /> <effectiveTime value="543106530660" /> <value unit="gm/dL" xsi:type="PQ" value="2.2" / > <interpretationCode codeSystem="local" code="*" /> < referenceRange> <observationRange> <text>3.4-5.0</text> </observationRange> </referenceRange> </observation > </component> <component> <observation moodCode="EVN" classCode="OBS"> <templateId root="03.28.840.1.629141.10..22.4.2" /> <id nullFlavor="NA" /> <code codeSystem="local" code="BILTOT" displayName="BILI TOTAL" /> <statusCode code="completed" /> < effectiveTime value="588665610969" /> <value unit="mg/dL" xsi:type="PQ " value="0.4" /> <referenceRange> <observationRange> <text>0.0-1.0</text> </observationRange> </ referenceRange> </observation> </component> <component> <observation moodCode="EVN" classCode="OBS"> <templateId root= "840.1.601829.11.29.21.4.2" /> <id nullFlavor="NA" /> < code codeSystem="local" code="ALKP" displayName="ALKALINE PHOSPHATASE TOTAL" /> <statusCode code="completed" /> <effectiveTime value= "397872146544" /> <value unit="IU/L" xsi:type="PQ" value="155" /> <interpretationCode codeSystem="local" code="*" /> <referenceRange > <observationRange> <text>45-117</text> </ observationRange> </referenceRange> </observation> </ component> </organizer> </entry> <entry> <organizer moodCode="EVN" classCode="BATTERY"> <templateId root="03.28.840.1.861501.10.20.22.4.1" /> <id nullFlavor="NA" /> <code codeSystem="local" code="PT" displayName= "PROTHROMBIN TIME WITH INR" /> <statusCode code="completed" /> < component> <observation moodCode="EVN" classCode="OBS"> < templateId root="840.1.771691.1022.4.2" /> <id nullFlavor="NA " /> <code codeSystem="local" code="INRX" displayName="INTERNATIONAL NORMAL RATIO" /> <statusCode code="completed" /> < effectiveTime value="639697601977" /> <value unit="" xsi:type="PQ" value="2.2" /> <interpretationCode codeSystem="local" code="*" /> <referenceRange> <observationRange> <text>0.9-1.1</ text> </observationRange> </referenceRange> </ observation> </component> <component> <observation moodCode= "EVN" classCode="OBS"> <templateId root="840.1.022806.11.29.21.4.2 " /> <id nullFlavor="NA" /> <code codeSystem="local" code= "PTPAT" displayName="PROTHROMBIN TIME" /> <statusCode code="completed" /> <effectiveTime value="737259428624" /> <value unit="sec" xsi:type="PQ" value="25.6" /> <interpretationCode codeSystem="local" code="*" /> <referenceRange> <observationRange> <text>10.0-12.8</text> </observationRange> </ referenceRange> </observation> </component> </organizer> </entry > <entry> <organizer moodCode="EVN" classCode="BATTERY"> <templateId root="03.28.840.1.089441.10.2022.4.1" /> <id nullFlavor="NA" /> <code codeSystem="local" code="PT" displayName="PROTHROMBIN TIME WITH INR" /> < statusCode code="completed" /> <component> <observation moodCode= "EVN" classCode="OBS"> <templateId root="840.1.918568.10..4.2 " /> <id nullFlavor="NA" /> <code codeSystem="local" code= "INRX" displayName="INTERNATIONAL NORMAL RATIO" /> <statusCode code= "completed" /> <effectiveTime value="" /> <value unit="" xsi:type="PQ" value="2.2" /> <interpretationCode codeSystem= "local" code="*" /> <referenceRange> <observationRange> <text>0.9-1.1</text> </observationRange> </ referenceRange> </observation> </component> <component> <observation moodCode="EVN" classCode="OBS"> <templateId root= "840.1.714895.11.29.21.4.2" /> <id nullFlavor="NA" /> < code codeSystem="local" code="PTPAT" displayName="PROTHROMBIN TIME" /> <statusCode code="completed" /> <effectiveTime value="" /> <value unit="sec" xsi:type="PQ" value="25.4" /> < interpretationCode codeSystem="local" code="*" /> <referenceRange> <observationRange> <text>10.0-12.8</text> </ observationRange> </referenceRange> </observation> </ component> </organizer> </entry> <entry> <organizer moodCode="EVN" classCode="BATTERY"> <templateId root="03.28.840.1.931184.10.2022.4.1" /> <id nullFlavor="NA" /> <code codeSystem="local" code="PT" displayName= "PROTHROMBIN TIME WITH INR" /> <statusCode code="completed" /> < component> <observation moodCode="EVN" classCode="OBS"> < templateId root=".1.100336...4.2" /> <id nullFlavor="NA " /> <code codeSystem="local" code="INRX" displayName="INTERNATIONAL NORMAL RATIO" /> <statusCode code="completed" /> < effectiveTime value="864463418807" /> <value unit="" xsi:type="PQ" value="2.4" /> <interpretationCode codeSystem="local" code="*" /> <referenceRange> <observationRange> <text>0.9-1.1</ text> </observationRange> </referenceRange> </ observation> </component> <component> <observation moodCode= "EVN" classCode="OBS"> <templateId root="03.28.840.1.446338.11.29.21.4.2 " /> <id nullFlavor="NA" /> <code codeSystem="local" code= "PTPAT" displayName="PROTHROMBIN TIME" /> <statusCode code="completed" /> <effectiveTime value="096046252325" /> <value unit="sec" xsi:type="PQ" value="27.3" /> <interpretationCode codeSystem="local" code="*" /> <referenceRange> <observationRange> <text>10.0-12.8</text> </observationRange> </ referenceRange> </observation> </component> </organizer> </entry > <entry> <organizer moodCode="EVN" classCode="BATTERY"> <templateId root="03.28.840.1.939547.10.2022.4.1" /> <id nullFlavor="NA" /> <code codeSystem="local" code="LACTG" displayName="LACTIC ACID" /> <statusCode code="completed" /> <component> <observation moodCode="EVN" classCode="OBS"> <templateId root="840.1.690723.10..22.4.2" /> <id nullFlavor="NA" /> <code codeSystem="local" code="LACT" displayName="LACTIC ACID" /> <statusCode code="completed" /> < effectiveTime value="289862709751" /> <value unit="mmol/L" xsi:type="PQ " value="2.2" /> <interpretationCode codeSystem="local" code="*" /> <referenceRange> <observationRange> <text>0.5-2.0 </text> </observationRange> </referenceRange> </ observation> </component> </organizer> </entry> <entry> <organizer moodCode="EVN" classCode="BATTERY"> <templateId root= "03.28.840.1.920949.10...4.1" /> <id nullFlavor="NA" /> <code codeSystem="local" code="CBCD" displayName="CBC W/DIFF" /> <statusCode code ="completed" /> <component> <observation moodCode="EVN" classCode= "OBS"> <templateId root="16.840.1.756755.10..22.4.2" /> < id nullFlavor="NA" /> <code codeSystem="local" code="EO#" displayName= "EOSINOPHIL #" /> <statusCode code="completed" /> < effectiveTime value="432883703441" /> <value unit="k/cumm" xsi:type="PQ " value="0.3" /> <referenceRange> <observationRange> <text>0.1-0.5</text> </observationRange> </ referenceRange> </observation> </component> <component> <observation moodCode="EVN" classCode="OBS"> <templateId root= "16.840.1.817595.11.29.21.4.2" /> <id nullFlavor="NA" /> < code codeSystem="local" code="EO%" displayName="EOSINOPHIL %" /> <statusCode code="completed" /> <effectiveTime value="782626623307" /> <value unit="%" xsi:type="PQ" value="3" /> < referenceRange> <observationRange> <text>2-4</text> </observationRange> </referenceRange> </observation> </component> <component> <observation moodCode="EVN" classCode= "OBS"> <templateId root="216.840.1.259450.11.29.21.4.2" /> < id nullFlavor="NA" /> <code codeSystem="local" code="GR#" displayName= "GRANULOCYTE #" /> <statusCode code="completed" /> < effectiveTime value="203106696704" /> <value unit="k/cumm" xsi:type="PQ " value="8.2" /> <referenceRange> <observationRange> <text>2.0-9.0</text> </observationRange> </ referenceRange> </observation> </component> <component> <observation moodCode="EVN" classCode="OBS"> <templateId root= "16.840.1.816334.10.4.2" /> <id nullFlavor="NA" /> < code codeSystem="local" code="GR%" displayName="GRANULOCYTE %" /> <statusCode code="completed" /> <effectiveTime value="008985846448 " /> <value unit="%" xsi:type="PQ" value="74" /> < referenceRange> <observationRange> <text>50-75</text> </observationRange> </referenceRange> </observation> </component> <component> <observation moodCode="EVN" classCode= "OBS"> <templateId root="216.840.1.881835.10.2022.4.2" /> < id nullFlavor="NA" /> <code codeSystem="local" code="LY#" displayName= "LYMPHOCYTE #" /> <statusCode code="completed" /> < effectiveTime value="258960635932" /> <value unit="k/cumm" xsi:type="PQ " value="1.6" /> <referenceRange> <observationRange> <text>1.0-4.0</text> </observationRange> </ referenceRange> </observation> </component> <component> <observation moodCode="EVN" classCode="OBS"> <templateId root= "2.840.1.214304.1022.4.2" /> <id nullFlavor="NA" /> < code codeSystem="local" code="LY%" displayName="LYMPHOCYTE %" /> <statusCode code="completed" /> <effectiveTime value="351232138348" /> <value unit="%" xsi:type="PQ" value="14" /> < interpretationCode codeSystem="local" code="*" /> <referenceRange> <observationRange> <text>20-30</text> </ observationRange> </referenceRange> </observation> </ component> <component> <observation moodCode="EVN" classCode="OBS"> <templateId root="216.840.1.864348.10.2022.4.2" /> <id nullFlavor="NA" /> <code codeSystem="local" code="MCH" displayName= "MEAN CELL HGB" /> <statusCode code="completed" /> < effectiveTime value="933097384588" /> <value unit="pg" xsi:type="PQ" value="28.8" /> <referenceRange> <observationRange> <text>27.0-33.0</text> </observationRange> </ referenceRange> </observation> </component> <component> <observation moodCode="EVN" classCode="OBS"> <templateId root= "2.840.1.763738.22.4.2" /> <id nullFlavor="NA" /> < code codeSystem="local" code="MCHC" displayName="MEAN CELL HGB CONCENTRATION" / > <statusCode code="completed" /> <effectiveTime value= "548267386408" /> <value unit="g/dL" xsi:type="PQ" value="31.4" /> <interpretationCode codeSystem="local" code="*" /> < referenceRange> <observationRange> <text>32.0-37.0</text > </observationRange> </referenceRange> </observation > </component> <component> <observation moodCode="EVN" classCode="OBS"> <templateId root="03.28.840.1.450146.11.29.21.4.2" /> <id nullFlavor="NA" /> <code codeSystem="local" code="MCV" displayName="MEAN CELL VOLUME" /> <statusCode code="completed" /> <effectiveTime value="255071755843" /> <value unit="fl" xsi:type= "PQ" value="91.7" /> <referenceRange> <observationRange> <text>80.0-100.0</text> </observationRange> </ referenceRange> </observation> </component> <component> <observation moodCode="EVN" classCode="OBS"> <templateId root= "2.840.1.991129.11.29.21.4.2" /> <id nullFlavor="NA" /> < code codeSystem="local" code="MO#" displayName="MONOCYTE #" /> < statusCode code="completed" /> <effectiveTime value="158134522932" /> <value unit="k/cumm" xsi:type="PQ" value="0.9" /> < referenceRange> <observationRange> <text>0.1-1.0</text> </observationRange> </referenceRange> </observation > </component> <component> <observation moodCode="EVN" classCode="OBS"> <templateId root="216.840.1.392324.11.29.21.4.2" /> <id nullFlavor="NA" /> <code codeSystem="local" code="MO% " displayName="MONOCYTE %" /> <statusCode code="completed" /> <effectiveTime value="330846361694" /> <value unit="%" xsi: type="PQ" value="9" /> <interpretationCode codeSystem="local" code="*" /> <referenceRange> <observationRange> <text>4- 6</text> </observationRange> </referenceRange> </ observation> </component> <component> <observation moodCode= "EVN" classCode="OBS"> <templateId root="03.28.840.1.926686.11.29.21.4.2 " /> <id nullFlavor="NA" /> <code codeSystem="local" code= "MPVT" displayName="MEAN PLATELET VOLUME" /> <statusCode code= "completed" /> <effectiveTime value="006473476667" /> <value unit="fl" xsi:type="PQ" value="9.7" /> <referenceRange> < observationRange> <text>8.5-10.9</text> </ observationRange> </referenceRange> </observation> </ component> <component> <observation moodCode="EVN" classCode="OBS"> <templateId root="216.840.1.080923.10..4.2" /> <id nullFlavor="NA" /> <code codeSystem="local" code="RBC" displayName=" RED BLOOD CELL" /> <statusCode code="completed" /> < effectiveTime value="542758910299" /> <value unit="m/cumm" xsi:type="PQ " value="3.85" /> <interpretationCode codeSystem="local" code="*" /> <referenceRange> <observationRange> <text>4.00- 6.00</text> </observationRange> </referenceRange> </ observation> </component> <component> <observation moodCode= "EVN" classCode="OBS"> <templateId root="16.840.1.593452.10..4.2 " /> <id nullFlavor="NA" /> <code codeSystem="local" code="RDW " displayName="RED CELL DISTRIBUTION WIDTH" /> <statusCode code= "completed" /> <effectiveTime value="398333208884" /> <value unit="%" xsi:type="PQ" value="15.7" /> <interpretationCode codeSystem="local" code="*" /> <referenceRange> < observationRange> <text>11.0-15.6</text> </ observationRange> </referenceRange> </observation> </ component> <component> <observation moodCode="EVN" classCode="OBS"> <templateId root="16.840.1.213773.10.2022.4.2" /> <id nullFlavor="NA" /> <code codeSystem="local" code="WBC" displayName= "WHITE BLOOD CELL" /> <statusCode code="completed" /> < effectiveTime value="939174540365" /> <value unit="k/cumm" xsi:type="PQ " value="11.1" /> <interpretationCode codeSystem="local" code="*" /> <referenceRange> <observationRange> <text>5.0- 10.0</text> </observationRange> </referenceRange> </ observation> </component> <component> <observation moodCode= "EVN" classCode="OBS"> <templateId root="2.16.840.1.535538.10.20.22.4.2 " /> <id nullFlavor="NA" /> <code codeSystem="local" code= "HGBT" displayName="HEMOGLOBIN" /> <statusCode code="completed" /> <effectiveTime value="717294818080" /> <value unit="gm/dL" xsi: type="PQ" value="11.1" /> <interpretationCode codeSystem="local" code= "*" /> <referenceRange> <observationRange> < text>12.0-16.0</text> </observationRange> </referenceRange> </observation> </component> <component> <observation moodCode="EVN" classCode="OBS"> <templateId root= "216.840.1.650051.10.20.22.4.2" /> <id nullFlavor="NA" /> < code codeSystem="local" code="HCTT" displayName="HEMATOCRIT" /> < statusCode code="completed" /> <effectiveTime value="439663212747" /> <value unit="%" xsi:type="PQ" value="35.3" /> < interpretationCode codeSystem="local" code="*" /> <referenceRange> <observationRange> <text>37.0-47.0</text> </ observationRange> </referenceRange> </observation> </ component> <component> <observation moodCode="EVN" classCode="OBS"> <templateId root="216.840.1.485061.10.22.4.2" /> <id nullFlavor="NA" /> <code codeSystem="local" code="PLTT" displayName= "PLATELET COUNT" /> <statusCode code="completed" /> < effectiveTime value="938367845124" /> <value unit="k/cumm" xsi:type="PQ " value="221" /> <referenceRange> <observationRange> <text>150-400</text> </observationRange> </ referenceRange> </observation> </component> </organizer> </entry > <entry> <organizer moodCode="EVN" classCode="BATTERY"> <templateId root="216.840.1.379484.10..22.4.1" /> <id nullFlavor="NA" /> <code codeSystem="local" code="PT" displayName="PROTHROMBIN TIME WITH INR" /> < statusCode code="completed" /> <component> <observation moodCode= "EVN" classCode="OBS"> <templateId root="216.840.1.602514.10..22.4.2 " /> <id nullFlavor="NA" /> <code codeSystem="local" code= "INRX" displayName="INTERNATIONAL NORMAL RATIO" /> <statusCode code= "completed" /> <effectiveTime value="837645548460" /> <value unit="" xsi:type="PQ" value="1.6" /> <interpretationCode codeSystem= "local" code="*" /> <referenceRange> <observationRange> <text>0.9-1.1</text> </observationRange> </ referenceRange> </observation> </component> <component> <observation moodCode="EVN" classCode="OBS"> <templateId root= "216.840.1.079850.10..22.4.2" /> <id nullFlavor="NA" /> < code codeSystem="local" code="PTPAT" displayName="PROTHROMBIN TIME" /> <statusCode code="completed" /> <effectiveTime value="732526883705" /> <value unit="sec" xsi:type="PQ" value="18.1" /> < interpretationCode codeSystem="local" code="*" /> <referenceRange> <observationRange> <text>10.0-12.8</text> </ observationRange> </referenceRange> </observation> </ component> </organizer> </entry> <entry> <organizer moodCode="EVN" classCode="BATTERY"> <templateId root="216.840.1.695472.10.20.22.4.1" /> <id nullFlavor="NA" /> <code codeSystem="local" code="LIVER" displayName="HEPATIC FUNCTION PANEL" /> <statusCode code="completed" /> <component> <observation moodCode="EVN" classCode="OBS"> < templateId root="216.840.1.502001.10.20.22.4.2" /> <id nullFlavor="NA " /> <code codeSystem="local" code="BILUC" displayName="BILI UNCONJUGATED" /> <statusCode code="completed" /> < effectiveTime value="197025210196" /> <value unit="mg/dL" xsi:type="PQ " value="0.5" /> <referenceRange> <observationRange> <text>0.0-0.7</text> </observationRange> </ referenceRange> </observation> </component> <component> <observation moodCode="EVN" classCode="OBS"> <templateId root= "216.840.1.614361.10..22.4.2" /> <id nullFlavor="NA" /> < code codeSystem="local" code="AST" displayName="AST/SGOT" /> < statusCode code="completed" /> <effectiveTime value="374777836870" /> <value unit="Units/L" xsi:type="PQ" value="48" /> < interpretationCode codeSystem="local" code="*" /> <referenceRange> <observationRange> <text>10-37</text> </ observationRange> </referenceRange> </observation> </ component> <component> <observation moodCode="EVN" classCode="OBS"> <templateId root="16.840.1.307807.11.29.21.4.2" /> <id nullFlavor="NA" /> <code codeSystem="local" code="ALT" displayName="ALT /SGPT" /> <statusCode code="completed" /> <effectiveTime value ="095973233693" /> <value unit="Units/L" xsi:type="PQ" value="53" /> <referenceRange> <observationRange> <text>< 66</text> </observationRange> </referenceRange> </ observation> </component> <component> <observation moodCode= "EVN" classCode="OBS"> <templateId root="16.840.1.160380.10..22.4.2 " /> <id nullFlavor="NA" /> <code codeSystem="local" code="TP " displayName="TOTAL PROTEIN" /> <statusCode code="completed" /> <effectiveTime value="601497225875" /> <value unit="gm/dL" xsi:type ="PQ" value="7.5" /> <referenceRange> <observationRange> <text>6.4-8.2</text> </observationRange> </ referenceRange> </observation> </component> <component> <observation moodCode="EVN" classCode="OBS"> <templateId root= "03.28.840.1.067410.10.20.22.4.2" /> <id nullFlavor="NA" /> < code codeSystem="local" code="ALB" displayName="ALBUMIN" /> < statusCode code="completed" /> <effectiveTime value="895745417623" /> <value unit="gm/dL" xsi:type="PQ" value="3.1" /> < interpretationCode codeSystem="local" code="*" /> <referenceRange> <observationRange> <text>3.4-5.0</text> </ observationRange> </referenceRange> </observation> </ component> <component> <observation moodCode="EVN" classCode="OBS"> <templateId root="840.1.351403.10..4.2" /> <id nullFlavor="NA" /> <code codeSystem="local" code="BILTOT" displayName= "BILI TOTAL" /> <statusCode code="completed" /> < effectiveTime value="406526523513" /> <value unit="mg/dL" xsi:type="PQ " value="0.7" /> <referenceRange> <observationRange> <text>0.0-1.0</text> </observationRange> </ referenceRange> </observation> </component> <component> <observation moodCode="EVN" classCode="OBS"> <templateId root= "03.28.840.1.045327.10..22.4.2" /> <id nullFlavor="NA" /> < code codeSystem="local" code="ALKP" displayName="ALKALINE PHOSPHATASE TOTAL" /> <statusCode code="completed" /> <effectiveTime value= "565475920171" /> <value unit="IU/L" xsi:type="PQ" value="180" /> <interpretationCode codeSystem="local" code="*" /> <referenceRange > <observationRange> <text>45-117</text> </ observationRange> </referenceRange> </observation> </ component> <component> <observation moodCode="EVN" classCode="OBS"> <templateId root="03.28.840.1.122341.10..4.2" /> <id nullFlavor="NA" /> <code codeSystem="local" code="BILC" displayName= "BILI CONJUGATED" /> <statusCode code="completed" /> < effectiveTime value="607134182326" /> <value unit="mg/dL" xsi:type="PQ " value="0.2" /> <referenceRange> <observationRange> <text>0.0-0.3</text> </observationRange> </ referenceRange> </observation> </component> </organizer> </entry > <entry> <organizer moodCode="EVN" classCode="BATTERY"> <templateId root="03.28.840.1.321494.11.29.21.4.1" /> <id nullFlavor="NA" /> <code codeSystem="local" code="TROPI" displayName="TROPONIN I" /> <statusCode code="completed" /> <component> <observation moodCode="EVN" classCode="OBS"> <templateId root="03.28.840.1.334848.10..22.4.2" /> <id nullFlavor="NA" /> <code codeSystem="local" code="TROPI" displayName="TROPONIN I" /> <statusCode code="completed" /> < effectiveTime value="994950928214" /> <value unit="ng/mL" xsi:type="PQ " value="< 0.02" /> <referenceRange> <observationRange> <text>< 0.07</text> </observationRange> </ referenceRange> </observation> </component> </organizer> </entry > <entry> <organizer moodCode="EVN" classCode="BATTERY"> <templateId root="16.840.1.674500.10..22.4.1" /> <id nullFlavor="NA" /> <code codeSystem="local" code="RENAL" displayName="RENAL FUNCTION PANEL" /> < statusCode code="completed" /> <component> <observation moodCode= "EVN" classCode="OBS"> <templateId root="16.840.1.846413...4.2 " /> <id nullFlavor="NA" /> <code codeSystem="local" code="K" displayName="POTASSIUM" /> <statusCode code="completed" /> < effectiveTime value="064641294968" /> <value unit="mmol/L" xsi:type="PQ " value="3.6" /> <referenceRange> <observationRange> <text>3.5-5.3</text> </observationRange> </ referenceRange> </observation> </component> <component> <observation moodCode="EVN" classCode="OBS"> <templateId root= "16.840.1.079936.10..4.2" /> <id nullFlavor="NA" /> < code codeSystem="local" code="eGFR" displayName="EST GFR (MDRD)" /> < statusCode code="completed" /> <effectiveTime value="841425724699" /> <value unit="mL/min" xsi:type="PQ" value="> 60" /> < referenceRange> <observationRange> <text>> 59</text> </observationRange> </referenceRange> </observation > </component> <component> <observation moodCode="EVN" classCode="OBS"> <templateId root="216.840.1.158428.10..22.4.2" /> <id nullFlavor="NA" /> <code codeSystem="local" code="GAP" displayName="ANION GAP" /> <statusCode code="completed" /> < effectiveTime value="541083354240" /> <value unit="mmol/L" xsi:type="PQ " value="9" /> <referenceRange> <observationRange> <text>5-15</text> </observationRange> </referenceRange > </observation> </component> <component> <observation moodCode="EVN" classCode="OBS"> <templateId root= "16.840.1.339752.10..22.4.2" /> <id nullFlavor="NA" /> < code codeSystem="local" code="eCrCl" displayName="EST CrCl (CG)" /> < statusCode code="completed" /> <effectiveTime value="822305758969" /> <value unit="mL/min" xsi:type="PQ" value="59" /> < interpretationCode codeSystem="local" code="*" /> <referenceRange> <observationRange> <text>> 59</text> </ observationRange> </referenceRange> </observation> </ component> <component> <observation moodCode="EVN" classCode="OBS"> <templateId root="16.840.1.950768.10..22.4.2" /> <id nullFlavor="NA" /> <code codeSystem="local" code="GLU" displayName= "GLUCOSE" /> <statusCode code="completed" /> <effectiveTime value="413168489104" /> <value unit="mg/dL" xsi:type="PQ" value="86" / > <referenceRange> <observationRange> <text>70- 99</text> </observationRange> </referenceRange> </ observation> </component> <component> <observation moodCode= "EVN" classCode="OBS"> <templateId root="216.840.1.802667.10..22.4.2 " /> <id nullFlavor="NA" /> <code codeSystem="local" code="CA " displayName="CALCIUM" /> <statusCode code="completed" /> < effectiveTime value="813983466173" /> <value unit="mg/dL" xsi:type="PQ " value="9.0" /> <referenceRange> <observationRange> <text>8.5-10.1</text> </observationRange> </ referenceRange> </observation> </component> <component> <observation moodCode="EVN" classCode="OBS"> <templateId root= "2.16.840.1.376560.10..22.4.2" /> <id nullFlavor="NA" /> < code codeSystem="local" code="BUN" displayName="BLOOD UREA NITROGEN" /> <statusCode code="completed" /> <effectiveTime value="849706222957" / > <value unit="mg/dL" xsi:type="PQ" value="22" /> < interpretationCode codeSystem="local" code="*" /> <referenceRange> <observationRange> <text>7-20</text> </ observationRange> </referenceRange> </observation> </ component> <component> <observation moodCode="EVN" classCode="OBS"> <templateId root="16.840.1.935376.10.20.22.4.2" /> <id nullFlavor="NA" /> <code codeSystem="local" code="CREAT" displayName= "CREATININE" /> <statusCode code="completed" /> < effectiveTime value="152577079758" /> <value unit="mg/dL" xsi:type="PQ " value="0.9" /> <referenceRange> <observationRange> <text>0.6-1.0</text> </observationRange> </ referenceRange> </observation> </component> <component> <observation moodCode="EVN" classCode="OBS"> <templateId root= "03.28.840.1.388860.10..22.4.2" /> <id nullFlavor="NA" /> < code codeSystem="local" code="NA" displayName="SODIUM" /> <statusCode code="completed" /> <effectiveTime value="280576963800" /> < value unit="mmol/L" xsi:type="PQ" value="140" /> <referenceRange> <observationRange> <text>135-148</text> </ observationRange> </referenceRange> </observation> </ component> <component> <observation moodCode="EVN" classCode="OBS"> <templateId root="03.28.840.1.990260.10.20.22.4.2" /> <id nullFlavor="NA" /> <code codeSystem="local" code="CL" displayName= "CHLORIDE" /> <statusCode code="completed" /> <effectiveTime value="944925683886" /> <value unit="mmol/L" xsi:type="PQ" value="103" /> <referenceRange> <observationRange> <text>98 -110</text> </observationRange> </referenceRange> </ observation> </component> <component> <observation moodCode= "EVN" classCode="OBS"> <templateId root="216.840.1.800708.10..4.2 " /> <id nullFlavor="NA" /> <code codeSystem="local" code="CO2 " displayName="CARBON DIOXIDE" /> <statusCode code="completed" /> <effectiveTime value="972986139409" /> <value unit="mmol/L" xsi: type="PQ" value="28" /> <referenceRange> <observationRange> <text>21-32</text> </observationRange> </ referenceRange> </observation> </component> <component> <observation moodCode="EVN" classCode="OBS"> <templateId root= "216.840.1.547697.11.29.21.4.2" /> <id nullFlavor="NA" /> < code codeSystem="local" code="ALB" displayName="ALBUMIN" /> < statusCode code="completed" /> <effectiveTime value="541819069631" /> <value unit="gm/dL" xsi:type="PQ" value="3.1" /> < interpretationCode codeSystem="local" code="*" /> <referenceRange> <observationRange> <text>3.4-5.0</text> </ observationRange> </referenceRange> </observation> </ component> <component> <observation moodCode="EVN" classCode="OBS"> <templateId root="216.840.1.738180.10..4.2" /> <id nullFlavor="NA" /> <code codeSystem="local" code="PHOS" displayName= "PHOSPHORUS" /> <statusCode code="completed" /> < effectiveTime value="664136854472" /> <value unit="mg/dL" xsi:type="PQ " value="3.0" /> <referenceRange> <observationRange> <text>2.5-4.9</text> </observationRange> </ referenceRange> </observation> </component> </organizer> </entry > <entry> <organizer moodCode="EVN" classCode="BATTERY"> <templateId root="16.840.1.415624.10.20.22.4.1" /> <id nullFlavor="NA" /> <code codeSystem="local" code="BC" displayName="BLOOD CULTURE" /> <statusCode code="completed" /> <component> <observation moodCode="EVN" classCode="OBS"> <templateId root="2.16.840.1.146013.10.20.22.4.2" /> <id nullFlavor="NA" /> <code codeSystem="local" code="MB" displayName="Microbiology" /> <statusCode code="completed" /> <effectiveTime value="907099462946" /> <value xsi:type="ST" value="<pre ><b>BLOOD CULTURE</b> See BelowIs this a Possible Sepsis/Sepsis patient? YesBLOOD CULTURE(F) Papo Date/Time: 10/08/2016 09:04 Dina Date/Time: 10/13/2016 19:23SOURCE: BLOODSPEC DESC: [id number] [facility] [place] [address]</pre>" /> <referenceRange> <observationRange> <text /> </observationRange> </referenceRange> </observation> </component> </organizer> </entry> <entry> < organizer moodCode="EVN" classCode="BATTERY"> <templateId root= "216.840.1.944475.10..22.4.1" /> <id nullFlavor="NA" /> <code codeSystem="local" code="BC" displayName="BLOOD CULTURE" /> <statusCode code="completed" /> <component> <observation moodCode="EVN" classCode="OBS"> <templateId root="03.28.840.1.177857.10...4.2" /> <id nullFlavor="NA" /> <code codeSystem="local" code="MB" displayName="Microbiology" /> <statusCode code="completed" /> <effectiveTime value="250413756192" /> <value xsi:type="ST" value="<pre ><b>BLOOD CULTURE</b> See BelowIs this a Possible Sepsis/Sepsis patient? YesBLOOD CULTURE(F) Papo Date/Time: 10/08/2016 09:06 Dina Date/Time: 10/13/2016 19:23SOURCE: BLOODSPEC DESC: [id number] [facility] [place] [address]</pre>" /> <referenceRange> <observationRange> <text /> </observationRange> </referenceRange> </observation> </component> </organizer> </entry> <entry> < organizer moodCode="EVN" classCode="BATTERY"> <templateId root= "03.28.840.1.420388.10...4.1" /> <id nullFlavor="NA" /> <code codeSystem="local" code="iCHEM8" displayName="CHEM/HEM PROFILE-BEDSIDE" /> <statusCode code="completed" /> <component> <observation moodCode= "EVN" classCode="OBS"> <templateId root="03.28.840.1.575495.10..22.4.2 " /> <id nullFlavor="NA" /> <code codeSystem="local" code="K" displayName="POTASSIUM" /> <statusCode code="completed" /> < effectiveTime value="654249993411" /> <value unit="mmol/L" xsi:type="PQ " value="3.5" /> <referenceRange> <observationRange> <text>3.5-5.3</text> </observationRange> </ referenceRange> </observation> </component> <component> <observation moodCode="EVN" classCode="OBS"> <templateId root= "16.840.1.266974.10.22.4.2" /> <id nullFlavor="NA" /> < code codeSystem="local" code="CMETHOD" displayName="METHOD" /> < statusCode code="completed" /> <effectiveTime value="969840313483" /> <value unit="" xsi:type="PQ" value="Bedside" /> < referenceRange> <observationRange> <text /> < /observationRange> </referenceRange> </observation> </ component> <component> <observation moodCode="EVN" classCode="OBS"> <templateId root="16.840.1.175265....4.2" /> <id nullFlavor="NA" /> <code codeSystem="local" code="GAP" displayName= "ANION GAP" /> <statusCode code="completed" /> <effectiveTime value="734529698125" /> <value unit="mmol/L" xsi:type="PQ" value="17" / > <referenceRange> <observationRange> <text>10- 20</text> </observationRange> </referenceRange> </ observation> </component> <component> <observation moodCode= "EVN" classCode="OBS"> <templateId root="16.840.1.154223.10..22.4.2 " /> <id nullFlavor="NA" /> <code codeSystem="local" code= "HMETHOD" displayName="METHOD" /> <statusCode code="completed" /> <effectiveTime value="" /> <value unit="" xsi:type="PQ " value="Bedside" /> <referenceRange> <observationRange> <text /> </observationRange> </referenceRange> </observation> </component> <component> <observation moodCode="EVN" classCode="OBS"> <templateId root= "216.840.1.173426.11.29.21.4.2" /> <id nullFlavor="NA" /> < code codeSystem="local" code="GLU" displayName="GLUCOSE" /> < statusCode code="completed" /> <effectiveTime value="" /> <value unit="mg/dL" xsi:type="PQ" value="91" /> < referenceRange> <observationRange> <text>70-99</text> </observationRange> </referenceRange> </observation> </component> <component> <observation moodCode="EVN" classCode= "OBS"> <templateId root="216.840.1.928304.11.29.21.4.2" /> < id nullFlavor="NA" /> <code codeSystem="local" code="BUN" displayName= "BLOOD UREA NITROGEN" /> <statusCode code="completed" /> < effectiveTime value="" /> <value unit="mg/dL" xsi:type="PQ " value="22" /> <interpretationCode codeSystem="local" code="*" /> <referenceRange> <observationRange> <text>7-20</ text> </observationRange> </referenceRange> </ observation> </component> <component> <observation moodCode= "EVN" classCode="OBS"> <templateId root="216.840.1.950166.22.4.2 " /> <id nullFlavor="NA" /> <code codeSystem="local" code= "CREAT" displayName="CREATININE" /> <statusCode code="completed" /> <effectiveTime value="865207011313" /> <value unit="mg/dL" xsi: type="PQ" value="0.9" /> <referenceRange> <observationRange > <text>0.6-1.0</text> </observationRange> </ referenceRange> </observation> </component> <component> <observation moodCode="EVN" classCode="OBS"> <templateId root= "2.16.840.1.022196.10..4.2" /> <id nullFlavor="NA" /> < code codeSystem="local" code="HGBT" displayName="HEMOGLOBIN" /> < statusCode code="completed" /> <effectiveTime value="494311431912" /> <value unit="gm/dL" xsi:type="PQ" value="12.9" /> < referenceRange> <observationRange> <text>12.0-16.0</text > </observationRange> </referenceRange> </observation > </component> <component> <observation moodCode="EVN" classCode="OBS"> <templateId root="2.16.840.1.761526.10..4.2" /> <id nullFlavor="NA" /> <code codeSystem="local" code="HCTT" displayName="HEMATOCRIT" /> <statusCode code="completed" /> < effectiveTime value="233491530682" /> <value unit="%" xsi:type="PQ " value="38.0" /> <referenceRange> <observationRange> <text>37.0-47.0</text> </observationRange> </ referenceRange> </observation> </component> <component> <observation moodCode="EVN" classCode="OBS"> <templateId root= "216.840.1.685350.10..22.4.2" /> <id nullFlavor="NA" /> < code codeSystem="local" code="NA" displayName="SODIUM" /> <statusCode code="completed" /> <effectiveTime value="475319575826" /> < value unit="mmol/L" xsi:type="PQ" value="140" /> <referenceRange> <observationRange> <text>135-148</text> </ observationRange> </referenceRange> </observation> </ component> <component> <observation moodCode="EVN" classCode="OBS"> <templateId root="216.840.1.563324.10..22.4.2" /> <id nullFlavor="NA" /> <code codeSystem="local" code="CL" displayName= "CHLORIDE" /> <statusCode code="completed" /> <effectiveTime value="456041243841" /> <value unit="mmol/L" xsi:type="PQ" value="99" / > <referenceRange> <observationRange> <text>98- 110</text> </observationRange> </referenceRange> </ observation> </component> <component> <observation moodCode= "EVN" classCode="OBS"> <templateId root="216.840.1.175025.10..22.4.2 " /> <id nullFlavor="NA" /> <code codeSystem="local" code="CO2 " displayName="CARBON DIOXIDE" /> <statusCode code="completed" /> <effectiveTime value="061139558561" /> <value unit="mmol/L" xsi: type="PQ" value="28" /> <referenceRange> <observationRange> <text>21-32</text> </observationRange> </ referenceRange> </observation> </component> <component> <observation moodCode="EVN" classCode="OBS"> <templateId root= "03.28.840.1.913234.10.4.2" /> <id nullFlavor="NA" /> < code codeSystem="local" code="CAION" displayName="CALCIUM IONIZED" /> < statusCode code="completed" /> <effectiveTime value="574086907449" /> <value unit="mg/dL" xsi:type="PQ" value="4.4" /> < interpretationCode codeSystem="local" code="*" /> <referenceRange> <observationRange> <text>4.5-5.3</text> </ observationRange> </referenceRange> </observation> </ component> </organizer> </entry> <entry> <organizer moodCode="EVN" classCode="BATTERY"> <templateId root="03.28.840.1.104479.10..22.4.1" /> <id nullFlavor="NA" /> <code codeSystem="local" code="UA" displayName= "URINALYSIS, ROUTINE" /> <statusCode code="completed" /> <component> <observation moodCode="EVN" classCode="OBS"> <templateId root= "03.28.840.1.572909.11.29.21.4.2" /> <id nullFlavor="NA" /> < code codeSystem="local" code="LEUESU" displayName="UA LEUKOCYTE ESTERASE DIPSTICK" /> <statusCode code="completed" /> <effectiveTime value="966916607347" /> <value unit="" xsi:type="PQ" value="1+" /> <referenceRange> <observationRange> <text>NEGATIVE </text> </observationRange> </referenceRange> </ observation> </component> <component> <observation moodCode= "EVN" classCode="OBS"> <templateId root="03.28.840.1.560984.10.4.2 " /> <id nullFlavor="NA" /> <code codeSystem="local" code= "NITRIU" displayName="UA NITRITE DIPSTICK" /> <statusCode code= "completed" /> <effectiveTime value="937003005283" /> <value unit="" xsi:type="PQ" value="POSITIVE" /> <referenceRange> < observationRange> <text>NEGATIVE</text> </ observationRange> </referenceRange> </observation> </ component> <component> <observation moodCode="EVN" classCode="OBS"> <templateId root="03.28.840.1.308775.11.29.21.4.2" /> <id nullFlavor="NA" /> <code codeSystem="local" code="PROTEIU" displayName= "UA PROTEIN DIPSTICK" /> <statusCode code="completed" /> < effectiveTime value="350125516810" /> <value unit="" xsi:type="PQ" value="2+" /> <referenceRange> <observationRange> <text>NEGATIVE</text> </observationRange> </ referenceRange> </observation> </component> <component> <observation moodCode="EVN" classCode="OBS"> <templateId root= "03.28.840.1.648840.1022.4.2" /> <id nullFlavor="NA" /> < code codeSystem="local" code="DGLUU" displayName="UA GLUCOSE DIPSTICK" /> <statusCode code="completed" /> <effectiveTime value="086344182292 " /> <value unit="" xsi:type="PQ" value="NEGATIVE" /> < referenceRange> <observationRange> <text>NEGATIVE</text > </observationRange> </referenceRange> </observation > </component> <component> <observation moodCode="EVN" classCode="OBS"> <templateId root="16.840.1.114813.10..4.2" /> <id nullFlavor="NA" /> <code codeSystem="local" code="KETONU" displayName="UA KETONE DIPSTICK" /> <statusCode code="completed" /> <effectiveTime value="472703468396" /> <value unit="" xsi:type= "PQ" value="NEGATIVE" /> <referenceRange> <observationRange > <text>NEGATIVE</text> </observationRange> </ referenceRange> </observation> </component> <component> <observation moodCode="EVN" classCode="OBS"> <templateId root= "03.28.840.1.822044.11.29.21.4.2" /> <id nullFlavor="NA" /> < code codeSystem="local" code="UROBILU" displayName="UA UROBILINOGEN DIPSTICK" / > <statusCode code="completed" /> <effectiveTime value= "703910497132" /> <value unit="" xsi:type="PQ" value="NORMAL" /> <referenceRange> <observationRange> <text>NORMAL</ text> </observationRange> </referenceRange> </ observation> </component> <component> <observation moodCode= "EVN" classCode="OBS"> <templateId root="03.28.840.1.966414.10.4.2 " /> <id nullFlavor="NA" /> <code codeSystem="local" code= "BILU" displayName="UA BILIRUBIN DIPSTICK" /> <statusCode code= "completed" /> <effectiveTime value="062609843017" /> <value unit="" xsi:type="PQ" value="NEGATIVE" /> <referenceRange> < observationRange> <text>NEGATIVE</text> </ observationRange> </referenceRange> </observation> </ component> <component> <observation moodCode="EVN" classCode="OBS"> <templateId root="216.840.1.341674.10..22.4.2" /> <id nullFlavor="NA" /> <code codeSystem="local" code="SOFIA" displayName="UA BLOOD DIPSTICK" /> <statusCode code="completed" /> < effectiveTime value="903359913698" /> <value unit="" xsi:type="PQ" value="2+" /> <referenceRange> <observationRange> <text>NEGATIVE</text> </observationRange> </ referenceRange> </observation> </component> <component> <observation moodCode="EVN" classCode="OBS"> <templateId root= "03.28.840.1.777156...4.2" /> <id nullFlavor="NA" /> < code codeSystem="local" code="SPGRU" displayName="UA SPECIFIC GRAVITY" /> <statusCode code="completed" /> <effectiveTime value="911565553772 " /> <value unit="" xsi:type="PQ" value="1.025" /> < referenceRange> <observationRange> <text>1.015-1.025</ text> </observationRange> </referenceRange> </ observation> </component> <component> <observation moodCode= "EVN" classCode="OBS"> <templateId root="16.840.1.992940.10.20.22.4.2 " /> <id nullFlavor="NA" /> <code codeSystem="local" code="ANDREW " displayName="UR PH" /> <statusCode code="completed" /> < effectiveTime value="048028295149" /> <value unit="" xsi:type="PQ" value="7.5" /> <interpretationCode codeSystem="local" code="*" /> <referenceRange> <observationRange> <text>5.0-7.0</ text> </observationRange> </referenceRange> </ observation> </component> </organizer> </entry> <entry> <organizer moodCode="EVN" classCode="BATTERY"> <templateId root= "216.840.1.015362.10..22.4.1" /> <id nullFlavor="NA" /> <code codeSystem="local" code="UAMICRO" displayName="UA MICROSCOPIC" /> < statusCode code="completed" /> <component> <observation moodCode= "EVN" classCode="OBS"> <templateId root="216.840.1.222281.10...4.2 " /> <id nullFlavor="NA" /> <code codeSystem="local" code= "BACU" displayName="UA BACTERIA" /> <statusCode code="completed" /> <effectiveTime value="712843933200" /> <value unit="" xsi:type= "PQ" value="5+" /> <referenceRange> <observationRange> <text>NEGATIVE</text> </observationRange> </ referenceRange> </observation> </component> <component> <observation moodCode="EVN" classCode="OBS"> <templateId root= "216.840.1.712260.10..4.2" /> <id nullFlavor="NA" /> < code codeSystem="local" code="RBCU" displayName="UA RBC" /> < statusCode code="completed" /> <effectiveTime value="569213489187" /> <value unit="rbc/hpf" xsi:type="PQ" value="5-10" /> < referenceRange> <observationRange> <text>0 - 3</text> </observationRange> </referenceRange> </observation> </component> <component> <observation moodCode="EVN" classCode= "OBS"> <templateId root="216.840.1.412183.10..22.4.2" /> < id nullFlavor="NA" /> <code codeSystem="local" code="UAVOL" displayName ="UA VOLUME FOR EXAM" /> <statusCode code="completed" /> < effectiveTime value="718670024866" /> <value unit="mL" xsi:type="PQ" value="12.0" /> <referenceRange> <observationRange> <text>(12mL STD)</text> </observationRange> </ referenceRange> </observation> </component> <component> <observation moodCode="EVN" classCode="OBS"> <templateId root= "216.840.1.475424.10...4.2" /> <id nullFlavor="NA" /> < code codeSystem="local" code="WBCU" displayName="UA WBC" /> < statusCode code="completed" /> <effectiveTime value="618382231581" /> <value unit="wbc/hpf" xsi:type="PQ" value=">100" /> < referenceRange> <observationRange> <text>0 - 5</text> </observationRange> </referenceRange> </observation> </component> </organizer> </entry> <entry> <organizer moodCode="EVN " classCode="BATTERY"> <templateId root="2.16.840.1.346573.10..22.4.1" / > <id nullFlavor="NA" /> <code codeSystem="local" code="UC" displayName="URINE CULTURE" /> <statusCode code="completed" /> < component> <observation moodCode="EVN" classCode="OBS"> < templateId root="2.16.840.1.762825.10.20.22.4.2" /> <id nullFlavor="NA " /> <code codeSystem="local" code="MB" displayName="Microbiology" /> <statusCode code="completed" /> <effectiveTime value= "489663053594" /> <value xsi:type="ST" value="<pre><b> URINE CULTURE</b> See BelowURINE CULTURE(F) Papo Date/Time: 10/08/2016 09:36 Dina Date/Time: 10/10/2016 10: 18SOURCE: URINESPEC DESC: CLEAN CATCHTREATMENT OF ASYMPTOMATIC BACTERIURIA IS NOT USUALLYCLINICALLY INDICATED.Organism #1 ESCHERICHIA COLICOLONY COUNT > 100,000 CFU/ML InterpAMPICILLIN VITEK >=32 RAMPICILLIN/SULBACTAM VITEK >=32 RCEFAZOLIN VITEK <=4 SCEFEPIME VITEK &lt ;=1 SCEFTRIAXONE VITEK <=1 SGENTAMICIN VITEK <=1 SNITROFURANTOIN VITEK <=16 SPIPERACILLIN/TAZOBZCTAM VITEK 32 ITRIMETH/SULFA VITEK >= [address] [facility] [place] [address]</pre>" /> <referenceRange> <observationRange> <text /> </observationRange> </referenceRange> </observation> </component> </organizer> </entry> <entry> <organizer moodCode= "EVN" classCode="BATTERY"> <templateId root="2.16.840.1.696076.10.20.22.4.1 " /> <id nullFlavor="NA" /> <code codeSystem="local" code="LACTG" displayName="LACTIC ACID" /> <statusCode code="completed" /> < component> <observation moodCode="EVN" classCode="OBS"> < templateId root="16.840.1.609760.10..22.4.2" /> <id nullFlavor="NA " /> <code codeSystem="local" code="LACT" displayName="LACTIC ACID" /> <statusCode code="completed" /> <effectiveTime value= "886391639355" /> <value unit="mmol/L" xsi:type="PQ" value="1.5" /> <referenceRange> <observationRange> <text>0.5-2.0 </text> </observationRange> </referenceRange> </ observation> </component> </organizer> </entry> <entry> <organizer moodCode="EVN" classCode="BATTERY"> <templateId root= "03.28.840.1.890348.10..22.4.1" /> <id nullFlavor="NA" /> <code codeSystem="local" code="LACTG" displayName="LACTIC ACID" /> <statusCode code="completed" /> <component> <observation moodCode="EVN" classCode="OBS"> <templateId root="16.840.1.520734.10..22.4.2" /> <id nullFlavor="NA" /> <code codeSystem="local" code="LACT" displayName="LACTIC ACID" /> <statusCode code="completed" /> < effectiveTime value="835363890866" /> <value unit="mmol/L" xsi:type="PQ " value="1.3" /> <referenceRange> <observationRange> <text>0.5-2.0</text> </observationRange> </ referenceRange> </observation> </component> </organizer> </entry > <entry> <organizer moodCode="EVN" classCode="BATTERY"> <templateId root="2.16.840.1.485869.10.20.22.4.1" /> <id nullFlavor="NA" /> <code codeSystem="local" code="GRAMM" displayName="GRAM STAIN" /> <statusCode code="completed" /> <component> <observation moodCode="EVN" classCode="OBS"> <templateId root="2.16.840.1.715038.10.20.22.4.2" /> <id nullFlavor="NA" /> <code codeSystem="local" code="MB" displayName="Microbiology" /> <statusCode code="completed" /> <effectiveTime value="173084808702" /> <value xsi:type="ST" value="< pre><b>GRAM STAIN - MISCELLANEOUS CULTURE</b> See BelowGRAM STAIN (F) Papo Date/Time: 10/08/2016 14:59 Dina Date/Time: 10/11/2016 09:23SOURCE: INCISIONSPEC DESC: LEFT KNEEGRAM STAINMANY NEUTROPHILSRARE GRAM POSITIVE COCCI RESEMBLING STAPHYLOCOCCUS[address] [id number] BelowMISCELLANEOUS CULTURE(F) Papo Date/Time: 10/08/2016 14:59 Dina Date/Time: 10/11/2016 09:23SOURCE: INCISIONSPEC DESC : LEFT KNEEOrganism #1 PSEUDOMONAS AERUGINOSAQUANTITATION .MODERATE GROWTH InterpCEFEPIME VITEK 2 SCIPROFLOXACIN VITEK <=0.25 SGENTAMICIN VITEK <=1 SPIPERACILLIN/TAZOBZCTAM VITEK 8 STOBRAMYCIN VITEK <=1 SOrganism #2 CORYNEBACTERIUM SPECIESQUANTITATION .MODERATE GROWTH [address] [address]</pre>" /> <referenceRange> < observationRange> <text /> </observationRange> </referenceRange> </observation> </component> </organizer> </ entry> <entry> <organizer moodCode="EVN" classCode="BATTERY"> < templateId root="03.28.840.1.134674.1022.4.1" /> <id nullFlavor="NA" /> <code codeSystem="local" code="BNP" displayName="B-TYPE NATRIURETIC PEPTIDE" /> <statusCode code="completed" /> <component> < observation moodCode="EVN" classCode="OBS"> <templateId root= "840.1.562676.11.29.21.4.2" /> <id nullFlavor="NA" /> < code codeSystem="local" code="BNP" displayName="B-TYPE NATRIURETIC PEPTIDE" /> <statusCode code="completed" /> <effectiveTime value= "605293448931" /> <value unit="pg/mL" xsi:type="PQ" value="83" /> <referenceRange> <observationRange> <text>< 100< /text> </observationRange> </referenceRange> </ observation> </component> </organizer> </entry> <entry> <organizer moodCode="EVN" classCode="BATTERY"> <templateId root= "840.1.527160.10.4.1" /> <id nullFlavor="NA" /> <code codeSystem="local" code="CBCD" displayName="CBC W/DIFF" /> <statusCode code ="completed" /> <component> <observation moodCode="EVN" classCode= "OBS"> <templateId root="03.28.840.1.241942.10..4.2" /> < id nullFlavor="NA" /> <code codeSystem="local" code="BA#" displayName= "BASOPHIL #" /> <statusCode code="completed" /> < effectiveTime value="429953278005" /> <value unit="k/cumm" xsi:type="PQ " value="0.1" /> <referenceRange> <observationRange> <text>0.0-0.2</text> </observationRange> </ referenceRange> </observation> </component> <component> <observation moodCode="EVN" classCode="OBS"> <templateId root= "216.840.1.586034.10..22.4.2" /> <id nullFlavor="NA" /> < code codeSystem="local" code="BA%" displayName="BASOPHIL %" /> <statusCode code="completed" /> <effectiveTime value="492384908257" /> <value unit="%" xsi:type="PQ" value="1" /> < referenceRange> <observationRange> <text>0-1</text> </observationRange> </referenceRange> </observation> </component> <component> <observation moodCode="EVN" classCode= "OBS"> <templateId root="16.840.1.037054.10.20.22.4.2" /> < id nullFlavor="NA" /> <code codeSystem="local" code="EO#" displayName= "EOSINOPHIL #" /> <statusCode code="completed" /> < effectiveTime value="006308408624" /> <value unit="k/cumm" xsi:type="PQ " value="0.5" /> <referenceRange> <observationRange> <text>0.1-0.5</text> </observationRange> </ referenceRange> </observation> </component> <component> <observation moodCode="EVN" classCode="OBS"> <templateId root= "216.840.1.297772.10.22.4.2" /> <id nullFlavor="NA" /> < code codeSystem="local" code="EO%" displayName="EOSINOPHIL %" /> <statusCode code="completed" /> <effectiveTime value="" /> <value unit="%" xsi:type="PQ" value="4" /> < referenceRange> <observationRange> <text>2-4</text> </observationRange> </referenceRange> </observation> </component> <component> <observation moodCode="EVN" classCode= "OBS"> <templateId root="16.840.1.587646.10..4.2" /> < id nullFlavor="NA" /> <code codeSystem="local" code="GR#" displayName= "GRANULOCYTE #" /> <statusCode code="completed" /> < effectiveTime value="" /> <value unit="k/cumm" xsi:type="PQ " value="6.5" /> <referenceRange> <observationRange> <text>2.0-9.0</text> </observationRange> </ referenceRange> </observation> </component> <component> <observation moodCode="EVN" classCode="OBS"> <templateId root= "03.28.840.1.950379.10.22.4.2" /> <id nullFlavor="NA" /> < code codeSystem="local" code="GR%" displayName="GRANULOCYTE %" /> <statusCode code="completed" /> <effectiveTime value="264755945613 " /> <value unit="%" xsi:type="PQ" value="61" /> < referenceRange> <observationRange> <text>50-75</text> </observationRange> </referenceRange> </observation> </component> <component> <observation moodCode="EVN" classCode= "OBS"> <templateId root="216.840.1.105221.10.4.2" /> < id nullFlavor="NA" /> <code codeSystem="local" code="LY#" displayName= "LYMPHOCYTE #" /> <statusCode code="completed" /> < effectiveTime value="" /> <value unit="k/cumm" xsi:type="PQ " value="2.6" /> <referenceRange> <observationRange> <text>1.0-4.0</text> </observationRange> </ referenceRange> </observation> </component> <component> <observation moodCode="EVN" classCode="OBS"> <templateId root= "03.28.840.1.721922.11.29.214.2" /> <id nullFlavor="NA" /> < code codeSystem="local" code="LY%" displayName="LYMPHOCYTE %" /> <statusCode code="completed" /> <effectiveTime value="631053887675" /> <value unit="%" xsi:type="PQ" value="24" /> < referenceRange> <observationRange> <text>20-30</text> </observationRange> </referenceRange> </observation> </component> <component> <observation moodCode="EVN" classCode= "OBS"> <templateId root="03.28.840.1.097456.11.29.21.4.2" /> < id nullFlavor="NA" /> <code codeSystem="local" code="MCH" displayName= "MEAN CELL HGB" /> <statusCode code="completed" /> < effectiveTime value="185988337496" /> <value unit="pg" xsi:type="PQ" value="28.9" /> <referenceRange> <observationRange> <text>27.0-33.0</text> </observationRange> </ referenceRange> </observation> </component> <component> <observation moodCode="EVN" classCode="OBS"> <templateId root= "03.28.840.1.658483.1022.4.2" /> <id nullFlavor="NA" /> < code codeSystem="local" code="MCHC" displayName="MEAN CELL HGB CONCENTRATION" / > <statusCode code="completed" /> <effectiveTime value= "302721145731" /> <value unit="g/dL" xsi:type="PQ" value="31.3" /> <interpretationCode codeSystem="local" code="*" /> < referenceRange> <observationRange> <text>32.0-37.0</text > </observationRange> </referenceRange> </observation > </component> <component> <observation moodCode="EVN" classCode="OBS"> <templateId root="03.28.840.1.929359.11.29.21.4.2" /> <id nullFlavor="NA" /> <code codeSystem="local" code="MCV" displayName="MEAN CELL VOLUME" /> <statusCode code="completed" /> <effectiveTime value="616446602409" /> <value unit="fl" xsi:type= "PQ" value="92.2" /> <referenceRange> <observationRange> <text>80.0-100.0</text> </observationRange> </ referenceRange> </observation> </component> <component> <observation moodCode="EVN" classCode="OBS"> <templateId root= "03.28.840.1.362068.10.22.4.2" /> <id nullFlavor="NA" /> < code codeSystem="local" code="MO#" displayName="MONOCYTE #" /> < statusCode code="completed" /> <effectiveTime value="907707604893" /> <value unit="k/cumm" xsi:type="PQ" value="1.1" /> < interpretationCode codeSystem="local" code="*" /> <referenceRange> <observationRange> <text>0.1-1.0</text> </ observationRange> </referenceRange> </observation> </ component> <component> <observation moodCode="EVN" classCode="OBS"> <templateId root="216.840.1.480808..22.4.2" /> <id nullFlavor="NA" /> <code codeSystem="local" code="MO%" displayName= "MONOCYTE %" /> <statusCode code="completed" /> < effectiveTime value="" /> <value unit="%" xsi:type="PQ " value="11" /> <interpretationCode codeSystem="local" code="*" /> <referenceRange> <observationRange> <text>4-6</ text> </observationRange> </referenceRange> </ observation> </component> <component> <observation moodCode= "EVN" classCode="OBS"> <templateId root="16.840.1.603724.10.20.22.4.2 " /> <id nullFlavor="NA" /> <code codeSystem="local" code= "MPVT" displayName="MEAN PLATELET VOLUME" /> <statusCode code= "completed" /> <effectiveTime value="862195912794" /> <value unit="fl" xsi:type="PQ" value="9.8" /> <referenceRange> < observationRange> <text>8.5-10.9</text> </ observationRange> </referenceRange> </observation> </ component> <component> <observation moodCode="EVN" classCode="OBS"> <templateId root="216.840.1.091046.10.2022.4.2" /> <id nullFlavor="NA" /> <code codeSystem="local" code="RBC" displayName=" RED BLOOD CELL" /> <statusCode code="completed" /> < effectiveTime value="641981912811" /> <value unit="m/cumm" xsi:type="PQ " value="3.22" /> <interpretationCode codeSystem="local" code="*" /> <referenceRange> <observationRange> <text>4.00- 6.00</text> </observationRange> </referenceRange> </ observation> </component> <component> <observation moodCode= "EVN" classCode="OBS"> <templateId root="16.840.1.823891.11.29.21.4.2 " /> <id nullFlavor="NA" /> <code codeSystem="local" code="RDW " displayName="RED CELL DISTRIBUTION WIDTH" /> <statusCode code= "completed" /> <effectiveTime value="135597033160" /> <value unit="%" xsi:type="PQ" value="15.6" /> <referenceRange> <observationRange> <text>11.0-15.6</text> </ observationRange> </referenceRange> </observation> </ component> <component> <observation moodCode="EVN" classCode="OBS"> <templateId root="216.840.1.865217.10..22.4.2" /> <id nullFlavor="NA" /> <code codeSystem="local" code="WBC" displayName= "WHITE BLOOD CELL" /> <statusCode code="completed" /> < effectiveTime value="" /> <value unit="k/cumm" xsi:type="PQ " value="10.7" /> <interpretationCode codeSystem="local" code="*" /> <referenceRange> <observationRange> <text>5.0- 10.0</text> </observationRange> </referenceRange> </ observation> </component> <component> <observation moodCode= "EVN" classCode="OBS"> <templateId root="2.16.840.1.898065.10.20.22.4.2 " /> <id nullFlavor="NA" /> <code codeSystem="local" code= "HGBT" displayName="HEMOGLOBIN" /> <statusCode code="completed" /> <effectiveTime value="" /> <value unit="gm/dL" xsi: type="PQ" value="9.3" /> <interpretationCode codeSystem="local" code="* " /> <referenceRange> <observationRange> <text> 12.0-16.0</text> </observationRange> </referenceRange> </observation> </component> <component> <observation moodCode="EVN" classCode="OBS"> <templateId root= "2.16.840.1.486459.10.20.22.4.2" /> <id nullFlavor="NA" /> < code codeSystem="local" code="HCTT" displayName="HEMATOCRIT" /> < statusCode code="completed" /> <effectiveTime value="633526859522" /> <value unit="%" xsi:type="PQ" value="29.7" /> < interpretationCode codeSystem="local" code="*" /> <referenceRange> <observationRange> <text>37.0-47.0</text> </ observationRange> </referenceRange> </observation> </ component> <component> <observation moodCode="EVN" classCode="OBS"> <templateId root="2.16.840.1.254730.10..22.4.2" /> <id nullFlavor="NA" /> <code codeSystem="local" code="PLTT" displayName= "PLATELET COUNT" /> <statusCode code="completed" /> < effectiveTime value="136577209182" /> <value unit="k/cumm" xsi:type="PQ " value="219" /> <referenceRange> <observationRange> <text>150-400</text> </observationRange> </ referenceRange> </observation> </component> </organizer> </entry > <entry> <organizer moodCode="EVN" classCode="BATTERY"> <templateId root="2.16.840.1.945350.10..22.4.1" /> <id nullFlavor="NA" /> <code codeSystem="local" code="PT" displayName="PROTHROMBIN TIME WITH INR" /> < statusCode code="completed" /> <component> <observation moodCode= "EVN" classCode="OBS"> <templateId root="2.16.840.1.095128.10.20.22.4.2 " /> <id nullFlavor="NA" /> <code codeSystem="local" code= "INRX" displayName="INTERNATIONAL NORMAL RATIO" /> <statusCode code= "completed" /> <effectiveTime value="447444845307" /> <value unit="" xsi:type="PQ" value="1.7" /> <interpretationCode codeSystem= "local" code="*" /> <referenceRange> <observationRange> <text>0.9-1.1</text> </observationRange> </ referenceRange> </observation> </component> <component> <observation moodCode="EVN" classCode="OBS"> <templateId root= "840.1.217184.10..22.4.2" /> <id nullFlavor="NA" /> < code codeSystem="local" code="PTPAT" displayName="PROTHROMBIN TIME" /> <statusCode code="completed" /> <effectiveTime value="056329858868" /> <value unit="sec" xsi:type="PQ" value="19.6" /> < interpretationCode codeSystem="local" code="*" /> <referenceRange> <observationRange> <text>10.0-12.8</text> </ observationRange> </referenceRange> </observation> </ component> </organizer> </entry> <entry> <organizer moodCode="EVN" classCode="BATTERY"> <templateId root="840.1.006504.10..22.4.1" /> <id nullFlavor="NA" /> <code codeSystem="local" code="METABC" displayName="METABOLIC PANEL, COMPREHN" /> <statusCode code="completed" /> <component> <observation moodCode="EVN" classCode="OBS"> < templateId root="840.1.025955.10..22.4.2" /> <id nullFlavor="NA " /> <code codeSystem="local" code="K" displayName="POTASSIUM" /> <statusCode code="completed" /> <effectiveTime value="765451421168 " /> <value unit="mmol/L" xsi:type="PQ" value="3.9" /> < referenceRange> <observationRange> <text>3.5-5.3</text> </observationRange> </referenceRange> </observation > </component> <component> <observation moodCode="EVN" classCode="OBS"> <templateId root=".1.681000.10..22.4.2" /> <id nullFlavor="NA" /> <code codeSystem="local" code="eGFR" displayName="EST GFR (MDRD)" /> <statusCode code="completed" /> <effectiveTime value="" /> <value unit="mL/min" xsi:type ="PQ" value="> 60" /> <referenceRange> <observationRange > <text>> 59</text> </observationRange> </ referenceRange> </observation> </component> <component> <observation moodCode="EVN" classCode="OBS"> <templateId root= "216.840.1.540879.10..22.4.2" /> <id nullFlavor="NA" /> < code codeSystem="local" code="GAP" displayName="ANION GAP" /> < statusCode code="completed" /> <effectiveTime value="" /> <value unit="mmol/L" xsi:type="PQ" value="8" /> < referenceRange> <observationRange> <text>5-15</text> </observationRange> </referenceRange> </observation> </component> <component> <observation moodCode="EVN" classCode= "OBS"> <templateId root="216.840.1.469646.10..22.4.2" /> < id nullFlavor="NA" /> <code codeSystem="local" code="eCrCl" displayName ="EST CrCl (CG)" /> <statusCode code="completed" /> < effectiveTime value="" /> <value unit="mL/min" xsi:type="PQ " value="> 60" /> <referenceRange> <observationRange> <text>> 59</text> </observationRange> </ referenceRange> </observation> </component> <component> <observation moodCode="EVN" classCode="OBS"> <templateId root= "216.840.1.786948.10..22.4.2" /> <id nullFlavor="NA" /> < code codeSystem="local" code="GLU" displayName="GLUCOSE" /> < statusCode code="completed" /> <effectiveTime value="" /> <value unit="mg/dL" xsi:type="PQ" value="101" /> < interpretationCode codeSystem="local" code="*" /> <referenceRange> <observationRange> <text>70-99</text> </ observationRange> </referenceRange> </observation> </ component> <component> <observation moodCode="EVN" classCode="OBS"> <templateId root="216.840.1.469642.11.29.21.4.2" /> <id nullFlavor="NA" /> <code codeSystem="local" code="CA" displayName= "CALCIUM" /> <statusCode code="completed" /> <effectiveTime value="" /> <value unit="mg/dL" xsi:type="PQ" value="8.7" / > <referenceRange> <observationRange> <text>8.5 -10.1</text> </observationRange> </referenceRange> </ observation> </component> <component> <observation moodCode= "EVN" classCode="OBS"> <templateId root="216.840.1.304257.10.22.4.2 " /> <id nullFlavor="NA" /> <code codeSystem="local" code="BUN " displayName="BLOOD UREA NITROGEN" /> <statusCode code="completed" /> <effectiveTime value="" /> <value unit="mg/dL" xsi:type="PQ" value="15" /> <referenceRange> < observationRange> <text>7-20</text> </observationRange> </referenceRange> </observation> </component> < component> <observation moodCode="EVN" classCode="OBS"> < templateId root="03.28.840.1.291368.10.20.22.4.2" /> <id nullFlavor="NA " /> <code codeSystem="local" code="CREAT" displayName="CREATININE" /> <statusCode code="completed" /> <effectiveTime value= "754237168741" /> <value unit="mg/dL" xsi:type="PQ" value="0.8" /> <referenceRange> <observationRange> <text>0.6-1.0< /text> </observationRange> </referenceRange> </ observation> </component> <component> <observation moodCode= "EVN" classCode="OBS"> <templateId root="840.1.005319..22.4.2 " /> <id nullFlavor="NA" /> <code codeSystem="local" code="NA " displayName="SODIUM" /> <statusCode code="completed" /> < effectiveTime value="564809627334" /> <value unit="mmol/L" xsi:type="PQ " value="136" /> <referenceRange> <observationRange> <text>135-148</text> </observationRange> </ referenceRange> </observation> </component> <component> <observation moodCode="EVN" classCode="OBS"> <templateId root= "03.28.840.1.147375.10.20.22.4.2" /> <id nullFlavor="NA" /> < code codeSystem="local" code="CL" displayName="CHLORIDE" /> < statusCode code="completed" /> <effectiveTime value="887589957017" /> <value unit="mmol/L" xsi:type="PQ" value="102" /> < referenceRange> <observationRange> <text>98-110</text> </observationRange> </referenceRange> </observation> </component> <component> <observation moodCode="EVN" classCode ="OBS"> <templateId root="216.840.1.967729.10..4.2" /> < id nullFlavor="NA" /> <code codeSystem="local" code="AST" displayName= "AST/SGOT" /> <statusCode code="completed" /> <effectiveTime value="743676765995" /> <value unit="Units/L" xsi:type="PQ" value="70" /> <interpretationCode codeSystem="local" code="*" /> < referenceRange> <observationRange> <text>10-37</text> </observationRange> </referenceRange> </observation> </component> <component> <observation moodCode="EVN" classCode= "OBS"> <templateId root="03.28.840.1.052663.10.4.2" /> < id nullFlavor="NA" /> <code codeSystem="local" code="ALT" displayName= "ALT/SGPT" /> <statusCode code="completed" /> <effectiveTime value="635382580701" /> <value unit="Units/L" xsi:type="PQ" value="64" /> <referenceRange> <observationRange> <text>& lt; 66</text> </observationRange> </referenceRange> < /observation> </component> <component> <observation moodCode= "EVN" classCode="OBS"> <templateId root="216.840.1.668200.10.20.22.4.2 " /> <id nullFlavor="NA" /> <code codeSystem="local" code="CO2 " displayName="CARBON DIOXIDE" /> <statusCode code="completed" /> <effectiveTime value="345193380686" /> <value unit="mmol/L" xsi: type="PQ" value="26" /> <referenceRange> <observationRange> <text>21-32</text> </observationRange> </ referenceRange> </observation> </component> <component> <observation moodCode="EVN" classCode="OBS"> <templateId root= "2.16.840.1.782026.10..4.2" /> <id nullFlavor="NA" /> < code codeSystem="local" code="TP" displayName="TOTAL PROTEIN" /> < statusCode code="completed" /> <effectiveTime value="[id number]" /> <value unit="gm/dL" xsi:type="PQ" value="6.3" /> < interpretationCode codeSystem="local" code="*" /> <referenceRange> <observationRange> <text>6.4-8.2</text> </ observationRange> </referenceRange> </observation> </ component> <component> <observation moodCode="EVN" classCode="OBS"> <templateId root="[id number]" /> <id nullFlavor="NA" /> <code codeSystem="local" code="ALB" displayName= "ALBUMIN" /> <statusCode code="completed" /> <effectiveTime value="072688014023" /> <value unit="gm/dL" xsi:type="PQ" value="2.6" / > <interpretationCode codeSystem="local" code="*" /> < referenceRange> <observationRange> <text>3.4-5.0</text> </observationRange> </referenceRange> </observation > </component> <component> <observation moodCode="EVN" classCode="OBS"> <templateId root="216.840.1.673813.10..22.4.2" /> <id nullFlavor="NA" /> <code codeSystem="local" code="BILTOT" displayName="BILI TOTAL" /> <statusCode code="completed" /> < effectiveTime value="908089925632" /> <value unit="mg/dL" xsi:type="PQ " value="0.8" /> <referenceRange> <observationRange> <text>0.0-1.0</text> </observationRange> </ referenceRange> </observation> </component> <component> <observation moodCode="EVN" classCode="OBS"> <templateId root= "216.840.1.583806.10..4.2" /> <id nullFlavor="NA" /> < code codeSystem="local" code="ALKP" displayName="ALKALINE PHOSPHATASE TOTAL" /> <statusCode code="completed" /> <effectiveTime value= "258894279256" /> <value unit="IU/L" xsi:type="PQ" value="186" /> <interpretationCode codeSystem="local" code="*" /> <referenceRange > <observationRange> <text>45-117</text> </ observationRange> </referenceRange> </observation> </ component> </organizer> </entry> <entry> <organizer moodCode="EVN" classCode="BATTERY"> <templateId root="216.840.1.882561.10..22.4.1" /> <id nullFlavor="NA" /> <code codeSystem="local" code="PHOS" displayName="PHOSPHORUS" /> <statusCode code="completed" /> <component > <observation moodCode="EVN" classCode="OBS"> <templateId root= "216.840.1.457164.10..22.4.2" /> <id nullFlavor="NA" /> < code codeSystem="local" code="PHOS" displayName="PHOSPHORUS" /> < statusCode code="completed" /> <effectiveTime value="278057076668" /> <value unit="mg/dL" xsi:type="PQ" value="3.8" /> < referenceRange> <observationRange> <text>2.5-4.9</text> </observationRange> </referenceRange> </observation > </component> </organizer> </entry> <entry> <organizer moodCode= "EVN" classCode="BATTERY"> <templateId root="216.840.1.949871.10..22.4.1 " /> <id nullFlavor="NA" /> <code codeSystem="local" code="MAG" displayName="MAGNESIUM" /> <statusCode code="completed" /> <component > <observation moodCode="EVN" classCode="OBS"> <templateId root= "216.840.1.266567.10.20.22.4.2" /> <id nullFlavor="NA" /> < code codeSystem="local" code="MAG" displayName="MAGNESIUM" /> < statusCode code="completed" /> <effectiveTime value="889941126774" /> <value unit="mg/dL" xsi:type="PQ" value="2.2" /> < referenceRange> <observationRange> <text>1.8-2.4</text> </observationRange> </referenceRange> </observation > </component> </organizer> </entry> <entry> <organizer moodCode= "EVN" classCode="BATTERY"> <templateId root="2.16.840.1.731685.10..22.4.1 " /> <id nullFlavor="NA" /> <code codeSystem="local" code="VANESSA" displayName="FERRITIN" /> <statusCode code="completed" /> <component> <observation moodCode="EVN" classCode="OBS"> <templateId root= "840.1.515496.11.29.21.4.2" /> <id nullFlavor="NA" /> < code codeSystem="local" code="VANESSA" displayName="FERRITIN" /> < statusCode code="completed" /> <effectiveTime value="025075611203" /> <value unit="ng/mL" xsi:type="PQ" value="161" /> < referenceRange> <observationRange> <text>8-252</text> </observationRange> </referenceRange> </observation> </component> </organizer> </entry> <entry> <organizer moodCode="EVN " classCode="BATTERY"> <templateId root="840.1.482106.11.29.21.4.1" / > <id nullFlavor="NA" /> <code codeSystem="local" code="FETIBC" displayName="IRON W/ BINDING CAPACITY" /> <statusCode code="completed" /> <component> <observation moodCode="EVN" classCode="OBS"> < templateId root="03.28.840.1.146757.10...4.2" /> <id nullFlavor="NA " /> <code codeSystem="local" code="FESAT" displayName="IRON SATURATION " /> <statusCode code="completed" /> <effectiveTime value= "304385875128" /> <value unit="%SAT" xsi:type="PQ" value="8" /> <interpretationCode codeSystem="local" code="*" /> < referenceRange> <observationRange> <text>11-46</text> </observationRange> </referenceRange> </observation> </component> <component> <observation moodCode="EVN" classCode= "OBS"> <templateId root="03.28.840.1.204271.10..22.4.2" /> < id nullFlavor="NA" /> <code codeSystem="local" code="TIBC" displayName= "IRON BINDING CAPACITY, TOTAL" /> <statusCode code="completed" /> <effectiveTime value="991789103935" /> <value unit="mcg/dL" xsi: type="PQ" value="255" /> <referenceRange> <observationRange > <text>250-450</text> </observationRange> </ referenceRange> </observation> </component> <component> <observation moodCode="EVN" classCode="OBS"> <templateId root= "03.28.840.1.714302.10...4.2" /> <id nullFlavor="NA" /> < code codeSystem="local" code="IRON" displayName="IRON" /> <statusCode code="completed" /> <effectiveTime value="530094160028" /> < value unit="mcg/dL" xsi:type="PQ" value="20" /> <interpretationCode codeSystem="local" code="*" /> <referenceRange> < observationRange> <text>35-150</text> </observationRange > </referenceRange> </observation> </component> </ organizer> </entry> <entry> <organizer moodCode="EVN" classCode="BATTERY"> <templateId root="03.28.840.1.257579.10..22.4.1" /> <id nullFlavor= "NA" /> <code codeSystem="local" code="VITB12" displayName="VITAMIN B12" / > <statusCode code="completed" /> <component> <observation moodCode="EVN" classCode="OBS"> <templateId root= "216.840.1.351933.1022.4.2" /> <id nullFlavor="NA" /> < code codeSystem="local" code="VITB12" displayName="VITAMIN B12" /> < statusCode code="completed" /> <effectiveTime value="739152343129" /> <value unit="pg/mL" xsi:type="PQ" value="291" /> < referenceRange> <observationRange> <text>211-911</text> </observationRange> </referenceRange> </observation > </component> </organizer> </entry> <entry> <organizer moodCode= "EVN" classCode="BATTERY"> <templateId root="16.840.1.785231.10...4.1 " /> <id nullFlavor="NA" /> <code codeSystem="local" code="CBCD" displayName="CBC W/DIFF" /> <statusCode code="completed" /> <component > <observation moodCode="EVN" classCode="OBS"> <templateId root= "16.840.1.471883.10..22.4.2" /> <id nullFlavor="NA" /> < code codeSystem="local" code="EO#" displayName="EOSINOPHIL #" /> < statusCode code="completed" /> <effectiveTime value="442054171478" /> <value unit="k/cumm" xsi:type="PQ" value="0.3" /> < referenceRange> <observationRange> <text>0.1-0.5</text> </observationRange> </referenceRange> </observation > </component> <component> <observation moodCode="EVN" classCode="OBS"> <templateId root="16.840.1.480659.10.2022.4.2" /> <id nullFlavor="NA" /> <code codeSystem="local" code="EO% " displayName="EOSINOPHIL %" /> <statusCode code="completed" /> <effectiveTime value="" /> <value unit="%" xsi: type="PQ" value="3" /> <referenceRange> <observationRange> <text>2-4</text> </observationRange> </ referenceRange> </observation> </component> <component> <observation moodCode="EVN" classCode="OBS"> <templateId root= "16.840.1.062021.10.4.2" /> <id nullFlavor="NA" /> < code codeSystem="local" code="GR#" displayName="GRANULOCYTE #" /> < statusCode code="completed" /> <effectiveTime value="" /> <value unit="k/cumm" xsi:type="PQ" value="4.8" /> < referenceRange> <observationRange> <text>2.0-9.0</text> </observationRange> </referenceRange> </observation > </component> <component> <observation moodCode="EVN" classCode="OBS"> <templateId root="03.28.840.1.603384.10.20.22.4.2" /> <id nullFlavor="NA" /> <code codeSystem="local" code="GR% " displayName="GRANULOCYTE %" /> <statusCode code="completed" /> <effectiveTime value="" /> <value unit="%" xsi: type="PQ" value="62" /> <referenceRange> <observationRange> <text>50-75</text> </observationRange> </ referenceRange> </observation> </component> <component> <observation moodCode="EVN" classCode="OBS"> <templateId root= "03.28.840.1.800661.10.20.22.4.2" /> <id nullFlavor="NA" /> < code codeSystem="local" code="LY#" displayName="LYMPHOCYTE #" /> < statusCode code="completed" /> <effectiveTime value="948999376219" /> <value unit="k/cumm" xsi:type="PQ" value="2.0" /> < referenceRange> <observationRange> <text>1.0-4.0</text> </observationRange> </referenceRange> </observation > </component> <component> <observation moodCode="EVN" classCode="OBS"> <templateId root="840.1.512573.10..4.2" /> <id nullFlavor="NA" /> <code codeSystem="local" code="LY% " displayName="LYMPHOCYTE %" /> <statusCode code="completed" /> <effectiveTime value="708756970120" /> <value unit="%" xsi: type="PQ" value="25" /> <referenceRange> <observationRange> <text>20-30</text> </observationRange> </ referenceRange> </observation> </component> <component> <observation moodCode="EVN" classCode="OBS"> <templateId root= "840.1.717212.10.2022.4.2" /> <id nullFlavor="NA" /> < code codeSystem="local" code="MCH" displayName="MEAN CELL HGB" /> < statusCode code="completed" /> <effectiveTime value="968679667152" /> <value unit="pg" xsi:type="PQ" value="28.8" /> <referenceRange > <observationRange> <text>27.0-33.0</text> < /observationRange> </referenceRange> </observation> </ component> <component> <observation moodCode="EVN" classCode="OBS"> <templateId root="03.28.840.1.776191.10.20.22.4.2" /> <id nullFlavor="NA" /> <code codeSystem="local" code="MCHC" displayName= "MEAN CELL HGB CONCENTRATION" /> <statusCode code="completed" /> <effectiveTime value="236688090730" /> <value unit="g/dL" xsi:type= "PQ" value="31.7" /> <interpretationCode codeSystem="local" code="*" / > <referenceRange> <observationRange> <text> 32.0-37.0</text> </observationRange> </referenceRange> </observation> </component> <component> <observation moodCode="EVN" classCode="OBS"> <templateId root= "03.28.840.1.058106.10.20.22.4.2" /> <id nullFlavor="NA" /> < code codeSystem="local" code="MCV" displayName="MEAN CELL VOLUME" /> < statusCode code="completed" /> <effectiveTime value="194716650745" /> <value unit="fl" xsi:type="PQ" value="91.0" /> <referenceRange > <observationRange> <text>80.0-100.0</text> </observationRange> </referenceRange> </observation> </ component> <component> <observation moodCode="EVN" classCode="OBS"> <templateId root="2.16.840.1.268139.10.20.22.4.2" /> <id nullFlavor="NA" /> <code codeSystem="local" code="MO#" displayName= "MONOCYTE #" /> <statusCode code="completed" /> < effectiveTime value="213833569650" /> <value unit="k/cumm" xsi:type="PQ " value="0.7" /> <referenceRange> <observationRange> <text>0.1-1.0</text> </observationRange> </ referenceRange> </observation> </component> <component> <observation moodCode="EVN" classCode="OBS"> <templateId root= "03.28.840.1.226916.10.22.4.2" /> <id nullFlavor="NA" /> < code codeSystem="local" code="MO%" displayName="MONOCYTE %" /> <statusCode code="completed" /> <effectiveTime value="" /> <value unit="%" xsi:type="PQ" value="9" /> < interpretationCode codeSystem="local" code="*" /> <referenceRange> <observationRange> <text>4-6</text> </ observationRange> </referenceRange> </observation> </ component> <component> <observation moodCode="EVN" classCode="OBS"> <templateId root="03.28.840.1.938910.10.2022.4.2" /> <id nullFlavor="NA" /> <code codeSystem="local" code="MPVT" displayName= "MEAN PLATELET VOLUME" /> <statusCode code="completed" /> < effectiveTime value="395681152599" /> <value unit="fl" xsi:type="PQ" value="9.7" /> <referenceRange> <observationRange> <text>8.5-10.9</text> </observationRange> </ referenceRange> </observation> </component> <component> <observation moodCode="EVN" classCode="OBS"> <templateId root= "16.840.1.252090.10.20.22.4.2" /> <id nullFlavor="NA" /> < code codeSystem="local" code="RBC" displayName="RED BLOOD CELL" /> < statusCode code="completed" /> <effectiveTime value="816972818668" /> <value unit="m/cumm" xsi:type="PQ" value="3.12" /> < interpretationCode codeSystem="local" code="*" /> <referenceRange> <observationRange> <text>4.00-6.00</text> </ observationRange> </referenceRange> </observation> </ component> <component> <observation moodCode="EVN" classCode="OBS"> <templateId root="840.1.041912.10...4.2" /> <id nullFlavor="NA" /> <code codeSystem="local" code="RDW" displayName=" RED CELL DISTRIBUTION WIDTH" /> <statusCode code="completed" /> <effectiveTime value="328923169491" /> <value unit="%" xsi:type= "PQ" value="15.6" /> <referenceRange> <observationRange> <text>11.0-15.6</text> </observationRange> </ referenceRange> </observation> </component> <component> <observation moodCode="EVN" classCode="OBS"> <templateId root= "16.840.1.528976.10.20.22.4.2" /> <id nullFlavor="NA" /> < code codeSystem="local" code="WBC" displayName="WHITE BLOOD CELL" /> < statusCode code="completed" /> <effectiveTime value="248209123965" /> <value unit="k/cumm" xsi:type="PQ" value="7.8" /> < referenceRange> <observationRange> <text>5.0-10.0</text > </observationRange> </referenceRange> </observation > </component> <component> <observation moodCode="EVN" classCode="OBS"> <templateId root="216.840.1.851401.10.20.22.4.2" /> <id nullFlavor="NA" /> <code codeSystem="local" code="HGBT" displayName="HEMOGLOBIN" /> <statusCode code="completed" /> < effectiveTime value="712736380920" /> <value unit="gm/dL" xsi:type="PQ " value="9.0" /> <interpretationCode codeSystem="local" code="*" /> <referenceRange> <observationRange> <text>12.0- 16.0</text> </observationRange> </referenceRange> </ observation> </component> <component> <observation moodCode= "EVN" classCode="OBS"> <templateId root="216.840.1.964252.10.20.22.4.2 " /> <id nullFlavor="NA" /> <code codeSystem="local" code= "HCTT" displayName="HEMATOCRIT" /> <statusCode code="completed" /> <effectiveTime value="760622970370" /> <value unit="%" xsi: type="PQ" value="28.4" /> <interpretationCode codeSystem="local" code= "*" /> <referenceRange> <observationRange> < text>37.0-47.0</text> </observationRange> </referenceRange> </observation> </component> <component> <observation moodCode="EVN" classCode="OBS"> <templateId root= "216.840.1.784554.10..22.4.2" /> <id nullFlavor="NA" /> < code codeSystem="local" code="PLTT" displayName="PLATELET COUNT" /> < statusCode code="completed" /> <effectiveTime value="848406236964" /> <value unit="k/cumm" xsi:type="PQ" value="166" /> < referenceRange> <observationRange> <text>150-400</text> </observationRange> </referenceRange> </observation > </component> </organizer> </entry> <entry> <organizer moodCode= "EVN" classCode="BATTERY"> <templateId root="216.840.1.232537.10..22.4.1 " /> <id nullFlavor="NA" /> <code codeSystem="local" code="PT" displayName="PROTHROMBIN TIME WITH INR" /> <statusCode code="completed" /> <component> <observation moodCode="EVN" classCode="OBS"> < templateId root="2.16.840.1.386307.10..22.4.2" /> <id nullFlavor="NA " /> <code codeSystem="local" code="INRX" displayName="INTERNATIONAL NORMAL RATIO" /> <statusCode code="completed" /> < effectiveTime value="047064651199" /> <value unit="" xsi:type="PQ" value="2.3" /> <interpretationCode codeSystem="local" code="*" /> <referenceRange> <observationRange> <text>0.9-1.1</ text> </observationRange> </referenceRange> </ observation> </component> <component> <observation moodCode= "EVN" classCode="OBS"> <templateId root="03.28.840.1.539818.10...4.2 " /> <id nullFlavor="NA" /> <code codeSystem="local" code= "PTPAT" displayName="PROTHROMBIN TIME" /> <statusCode code="completed" /> <effectiveTime value="344945100508" /> <value unit="sec" xsi:type="PQ" value="25.9" /> <interpretationCode codeSystem="local" code="*" /> <referenceRange> <observationRange> <text>10.0-12.8</text> </observationRange> </ referenceRange> </observation> </component> </organizer> </entry > <entry> <organizer moodCode="EVN" classCode="BATTERY"> <templateId root="03.28.840.1.439402.10...4.1" /> <id nullFlavor="NA" /> <code codeSystem="local" code="METABC" displayName="METABOLIC PANEL, COMPREHN" /> <statusCode code="completed" /> <component> <observation moodCode= "EVN" classCode="OBS"> <templateId root="03.28.840.1.494032.10..22.4.2 " /> <id nullFlavor="NA" /> <code codeSystem="local" code="K" displayName="POTASSIUM" /> <statusCode code="completed" /> < effectiveTime value="773795458861" /> <value unit="mmol/L" xsi:type="PQ " value="3.7" /> <referenceRange> <observationRange> <text>3.5-5.3</text> </observationRange> </ referenceRange> </observation> </component> <component> <observation moodCode="EVN" classCode="OBS"> <templateId root= "2.16.840.1.453969.10..22.4.2" /> <id nullFlavor="NA" /> < code codeSystem="local" code="eGFR" displayName="EST GFR (MDRD)" /> < statusCode code="completed" /> <effectiveTime value="" /> <value unit="mL/min" xsi:type="PQ" value="> 60" /> < referenceRange> <observationRange> <text>> 59</text> </observationRange> </referenceRange> </observation > </component> <component> <observation moodCode="EVN" classCode="OBS"> <templateId root="03.28.840.1.388419.10..4.2" /> <id nullFlavor="NA" /> <code codeSystem="local" code="GAP" displayName="ANION GAP" /> <statusCode code="completed" /> < effectiveTime value="" /> <value unit="mmol/L" xsi:type="PQ " value="10" /> <referenceRange> <observationRange> <text>5-15</text> </observationRange> </referenceRange > </observation> </component> <component> <observation moodCode="EVN" classCode="OBS"> <templateId root= "03.28.840.1.187879.10.22.4.2" /> <id nullFlavor="NA" /> < code codeSystem="local" code="eCrCl" displayName="EST CrCl (CG)" /> < statusCode code="completed" /> <effectiveTime value="" /> <value unit="mL/min" xsi:type="PQ" value="> 60" /> < referenceRange> <observationRange> <text>> 59</text> </observationRange> </referenceRange> </observation > </component> <component> <observation moodCode="EVN" classCode="OBS"> <templateId root="03.28.840.1.366201.10..4.2" /> <id nullFlavor="NA" /> <code codeSystem="local" code="GLU" displayName="GLUCOSE" /> <statusCode code="completed" /> < effectiveTime value="" /> <value unit="mg/dL" xsi:type="PQ " value="88" /> <referenceRange> <observationRange> <text>70-99</text> </observationRange> </ referenceRange> </observation> </component> <component> <observation moodCode="EVN" classCode="OBS"> <templateId root= "03.28.840.1.782768.11.29.21.4.2" /> <id nullFlavor="NA" /> < code codeSystem="local" code="CA" displayName="CALCIUM" /> <statusCode code="completed" /> <effectiveTime value="" /> < value unit="mg/dL" xsi:type="PQ" value="8.1" /> <interpretationCode codeSystem="local" code="*" /> <referenceRange> < observationRange> <text>8.5-10.1</text> </ observationRange> </referenceRange> </observation> </ component> <component> <observation moodCode="EVN" classCode="OBS"> <templateId root="03.28.840.1.806102...4.2" /> <id nullFlavor="NA" /> <code codeSystem="local" code="BUN" displayName= "BLOOD UREA NITROGEN" /> <statusCode code="completed" /> < effectiveTime value="" /> <value unit="mg/dL" xsi:type="PQ " value="11" /> <referenceRange> <observationRange> <text>7-20</text> </observationRange> </referenceRange > </observation> </component> <component> <observation moodCode="EVN" classCode="OBS"> <templateId root= "216.840.1.914277.10..22.4.2" /> <id nullFlavor="NA" /> < code codeSystem="local" code="CREAT" displayName="CREATININE" /> < statusCode code="completed" /> <effectiveTime value="038849996002" /> <value unit="mg/dL" xsi:type="PQ" value="0.7" /> < referenceRange> <observationRange> <text>0.6-1.0</text> </observationRange> </referenceRange> </observation > </component> <component> <observation moodCode="EVN" classCode="OBS"> <templateId root="03.28.840.1.368027....4.2" /> <id nullFlavor="NA" /> <code codeSystem="local" code="NA" displayName="SODIUM" /> <statusCode code="completed" /> < effectiveTime value="593212688757" /> <value unit="mmol/L" xsi:type="PQ " value="138" /> <referenceRange> <observationRange> <text>135-148</text> </observationRange> </ referenceRange> </observation> </component> <component> <observation moodCode="EVN" classCode="OBS"> <templateId root= "16.840.1.618795.10..22.4.2" /> <id nullFlavor="NA" /> < code codeSystem="local" code="CL" displayName="CHLORIDE" /> < statusCode code="completed" /> <effectiveTime value="242378780671" /> <value unit="mmol/L" xsi:type="PQ" value="102" /> < referenceRange> <observationRange> <text>98-110</text> </observationRange> </referenceRange> </observation> </component> <component> <observation moodCode="EVN" classCode ="OBS"> <templateId root="03.28.840.1.845309.10.4.2" /> < id nullFlavor="NA" /> <code codeSystem="local" code="AST" displayName= "AST/SGOT" /> <statusCode code="completed" /> <effectiveTime value="609787115086" /> <value unit="Units/L" xsi:type="PQ" value="32" /> <referenceRange> <observationRange> <text>10 -37</text> </observationRange> </referenceRange> </ observation> </component> <component> <observation moodCode= "EVN" classCode="OBS"> <templateId root="03.28.840.1.853397.11.29.21.4.2 " /> <id nullFlavor="NA" /> <code codeSystem="local" code="ALT " displayName="ALT/SGPT" /> <statusCode code="completed" /> < effectiveTime value="458755576667" /> <value unit="Units/L" xsi:type= "PQ" value="42" /> <referenceRange> <observationRange> <text>< 66</text> </observationRange> </ referenceRange> </observation> </component> <component> <observation moodCode="EVN" classCode="OBS"> <templateId root= "03.28.840.1.376777...4.2" /> <id nullFlavor="NA" /> < code codeSystem="local" code="CO2" displayName="CARBON DIOXIDE" /> < statusCode code="completed" /> <effectiveTime value="696994547867" /> <value unit="mmol/L" xsi:type="PQ" value="26" /> < referenceRange> <observationRange> <text>21-32</text> </observationRange> </referenceRange> </observation> </component> <component> <observation moodCode="EVN" classCode= "OBS"> <templateId root="2.16.840.1.457421.10..22.4.2" /> < id nullFlavor="NA" /> <code codeSystem="local" code="TP" displayName= "TOTAL PROTEIN" /> <statusCode code="completed" /> < effectiveTime value="556039628605" /> <value unit="gm/dL" xsi:type="PQ " value="5.8" /> <interpretationCode codeSystem="local" code="*" /> <referenceRange> <observationRange> <text>6.4-8.2 </text> </observationRange> </referenceRange> </ observation> </component> <component> <observation moodCode= "EVN" classCode="OBS"> <templateId root="16.840.1.562615.10.20.22.4.2 " /> <id nullFlavor="NA" /> <code codeSystem="local" code="ALB " displayName="ALBUMIN" /> <statusCode code="completed" /> < effectiveTime value="116488250658" /> <value unit="gm/dL" xsi:type="PQ " value="2.3" /> <interpretationCode codeSystem="local" code="*" /> <referenceRange> <observationRange> <text>3.4-5.0 </text> </observationRange> </referenceRange> </ observation> </component> <component> <observation moodCode= "EVN" classCode="OBS"> <templateId root="216.840.1.147468.10...4.2 " /> <id nullFlavor="NA" /> <code codeSystem="local" code= "BILTOT" displayName="BILI TOTAL" /> <statusCode code="completed" /> <effectiveTime value="823441991567" /> <value unit="mg/dL" xsi: type="PQ" value="0.6" /> <referenceRange> <observationRange > <text>0.0-1.0</text> </observationRange> </ referenceRange> </observation> </component> <component> <observation moodCode="EVN" classCode="OBS"> <templateId root= "03.28.840.1.409348.11.29.21.4.2" /> <id nullFlavor="NA" /> < code codeSystem="local" code="ALKP" displayName="ALKALINE PHOSPHATASE TOTAL" /> <statusCode code="completed" /> <effectiveTime value= "329166500113" /> <value unit="IU/L" xsi:type="PQ" value="168" /> <interpretationCode codeSystem="local" code="*" /> <referenceRange > <observationRange> <text>45-117</text> </ observationRange> </referenceRange> </observation> </ component> </organizer> </entry> <entry> <organizer moodCode="EVN" classCode="BATTERY"> <templateId root="216.840.1.968293.10...4.1" /> <id nullFlavor="NA" /> <code codeSystem="local" code="MAG" displayName ="MAGNESIUM" /> <statusCode code="completed" /> <component> < observation moodCode="EVN" classCode="OBS"> <templateId root= "216.840.1.471979.10..22.4.2" /> <id nullFlavor="NA" /> < code codeSystem="local" code="MAG" displayName="MAGNESIUM" /> < statusCode code="completed" /> <effectiveTime value="329870474878" /> <value unit="mg/dL" xsi:type="PQ" value="1.7" /> < interpretationCode codeSystem="local" code="*" /> <referenceRange> <observationRange> <text>1.8-2.4</text> </ observationRange> </referenceRange> </observation> </ component> </organizer> </entry> <entry> <organizer moodCode="EVN" classCode="BATTERY"> <templateId root="16.840.1.023946.10..22.4.1" /> <id nullFlavor="NA" /> <code codeSystem="local" code="CBCD" displayName="CBC W/DIFF" /> <statusCode code="completed" /> <component > <observation moodCode="EVN" classCode="OBS"> <templateId root= "16.840.1.277270.10..22.4.2" /> <id nullFlavor="NA" /> < code codeSystem="local" code="EO#" displayName="EOSINOPHIL #" /> < statusCode code="completed" /> <effectiveTime value="[id number]" /> <value unit="k/cumm" xsi:type="PQ" value="0.4" /> < referenceRange> <observationRange> <text>0.1-0.5</text> </observationRange> </referenceRange> </observation > </component> <component> <observation moodCode="EVN" classCode="OBS"> <templateId root="216.840.1.172348.10.20.22.4.2" /> <id nullFlavor="NA" /> <code codeSystem="local" code="EO% " displayName="EOSINOPHIL %" /> <statusCode code="completed" /> <effectiveTime value="" /> <value unit="%" xsi: type="PQ" value="7" /> <interpretationCode codeSystem="local" code="*" /> <referenceRange> <observationRange> <text>2- 4</text> </observationRange> </referenceRange> </ observation> </component> <component> <observation moodCode= "EVN" classCode="OBS"> <templateId root="03.28.840.1.003831.11.29.21.4.2 " /> <id nullFlavor="NA" /> <code codeSystem="local" code="GR# " displayName="GRANULOCYTE #" /> <statusCode code="completed" /> <effectiveTime value="" /> <value unit="k/cumm" xsi: type="PQ" value="2.8" /> <referenceRange> <observationRange > <text>2.0-9.0</text> </observationRange> </ referenceRange> </observation> </component> <component> <observation moodCode="EVN" classCode="OBS"> <templateId root= "216.840.1.988248.10.20.22.4.2" /> <id nullFlavor="NA" /> < code codeSystem="local" code="GR%" displayName="GRANULOCYTE %" /> <statusCode code="completed" /> <effectiveTime value=" " /> <value unit="%" xsi:type="PQ" value="53" /> < referenceRange> <observationRange> <text>50-75</text> </observationRange> </referenceRange> </observation> </component> <component> <observation moodCode="EVN" classCode= "OBS"> <templateId root="216.840.1.640800.10.20..4.2" /> < id nullFlavor="NA" /> <code codeSystem="local" code="LY#" displayName= "LYMPHOCYTE #" /> <statusCode code="completed" /> < effectiveTime value="" /> <value unit="k/cumm" xsi:type="PQ " value="1.5" /> <referenceRange> <observationRange> <text>1.0-4.0</text> </observationRange> </ referenceRange> </observation> </component> <component> <observation moodCode="EVN" classCode="OBS"> <templateId root= "03.28.840.1.940733.10..4.2" /> <id nullFlavor="NA" /> < code codeSystem="local" code="LY%" displayName="LYMPHOCYTE %" /> <statusCode code="completed" /> <effectiveTime value="" /> <value unit="%" xsi:type="PQ" value="28" /> < referenceRange> <observationRange> <text>20-30</text> </observationRange> </referenceRange> </observation> </component> <component> <observation moodCode="EVN" classCode= "OBS"> <templateId root="16.840.1.371090.10.20.22.4.2" /> < id nullFlavor="NA" /> <code codeSystem="local" code="MCH" displayName= "MEAN CELL HGB" /> <statusCode code="completed" /> < effectiveTime value="" /> <value unit="pg" xsi:type="PQ" value="28.3" /> <referenceRange> <observationRange> <text>27.0-33.0</text> </observationRange> </ referenceRange> </observation> </component> <component> <observation moodCode="EVN" classCode="OBS"> <templateId root= "216.840.1.851681.10.20.22.4.2" /> <id nullFlavor="NA" /> < code codeSystem="local" code="MCHC" displayName="MEAN CELL HGB CONCENTRATION" / > <statusCode code="completed" /> <effectiveTime value= "" /> <value unit="g/dL" xsi:type="PQ" value="30.8" /> <interpretationCode codeSystem="local" code="*" /> < referenceRange> <observationRange> <text>32.0-37.0</text > </observationRange> </referenceRange> </observation > </component> <component> <observation moodCode="EVN" classCode="OBS"> <templateId root="216.840.1.753214.10.20.22.4.2" /> <id nullFlavor="NA" /> <code codeSystem="local" code="MCV" displayName="MEAN CELL VOLUME" /> <statusCode code="completed" /> <effectiveTime value="" /> <value unit="fl" xsi:type= "PQ" value="91.8" /> <referenceRange> <observationRange> <text>80.0-100.0</text> </observationRange> </ referenceRange> </observation> </component> <component> <observation moodCode="EVN" classCode="OBS"> <templateId root= "840.1.700720.10.2022.4.2" /> <id nullFlavor="NA" /> < code codeSystem="local" code="MO#" displayName="MONOCYTE #" /> < statusCode code="completed" /> <effectiveTime value="" /> <value unit="k/cumm" xsi:type="PQ" value="0.6" /> < referenceRange> <observationRange> <text>0.1-1.0</text> </observationRange> </referenceRange> </observation > </component> <component> <observation moodCode="EVN" classCode="OBS"> <templateId root="840.1.081573.1022.4.2" /> <id nullFlavor="NA" /> <code codeSystem="local" code="MO% " displayName="MONOCYTE %" /> <statusCode code="completed" /> <effectiveTime value="" /> <value unit="%" xsi: type="PQ" value="12" /> <interpretationCode codeSystem="local" code="* " /> <referenceRange> <observationRange> <text> 4-6</text> </observationRange> </referenceRange> </ observation> </component> <component> <observation moodCode= "EVN" classCode="OBS"> <templateId root="840.1.536259.10.2022.4.2 " /> <id nullFlavor="NA" /> <code codeSystem="local" code= "MPVT" displayName="MEAN PLATELET VOLUME" /> <statusCode code= "completed" /> <effectiveTime value="" /> <value unit="fl" xsi:type="PQ" value="9.8" /> <referenceRange> < observationRange> <text>8.5-10.9</text> </ observationRange> </referenceRange> </observation> </ component> <component> <observation moodCode="EVN" classCode="OBS"> <templateId root="216.840.1.655026.10.20.22.4.2" /> <id nullFlavor="NA" /> <code codeSystem="local" code="RBC" displayName=" RED BLOOD CELL" /> <statusCode code="completed" /> < effectiveTime value="" /> <value unit="m/cumm" xsi:type="PQ " value="3.04" /> <interpretationCode codeSystem="local" code="*" /> <referenceRange> <observationRange> <text>4.00- 6.00</text> </observationRange> </referenceRange> </ observation> </component> <component> <observation moodCode= "EVN" classCode="OBS"> <templateId root="03.28.840.1.135094.11.29.21.4.2 " /> <id nullFlavor="NA" /> <code codeSystem="local" code="RDW " displayName="RED CELL DISTRIBUTION WIDTH" /> <statusCode code= "completed" /> <effectiveTime value="" /> <value unit="%" xsi:type="PQ" value="15.4" /> <referenceRange> <observationRange> <text>11.0-15.6</text> </ observationRange> </referenceRange> </observation> </ component> <component> <observation moodCode="EVN" classCode="OBS"> <templateId root="16.840.1.789475.10.20.22.4.2" /> <id nullFlavor="NA" /> <code codeSystem="local" code="WBC" displayName= "WHITE BLOOD CELL" /> <statusCode code="completed" /> < effectiveTime value="" /> <value unit="k/cumm" xsi:type="PQ " value="5.3" /> <referenceRange> <observationRange> <text>5.0-10.0</text> </observationRange> </ referenceRange> </observation> </component> <component> <observation moodCode="EVN" classCode="OBS"> <templateId root= "2.16.840.1.769583.10.20.22.4.2" /> <id nullFlavor="NA" /> < code codeSystem="local" code="HGBT" displayName="HEMOGLOBIN" /> < statusCode code="completed" /> <effectiveTime value="" /> <value unit="gm/dL" xsi:type="PQ" value="8.6" /> < interpretationCode codeSystem="local" code="*" /> <referenceRange> <observationRange> <text>12.0-16.0</text> </ observationRange> </referenceRange> </observation> </ component> <component> <observation moodCode="EVN" classCode="OBS"> <templateId root="216.840.1.429710.10.20.22.4.2" /> <id nullFlavor="NA" /> <code codeSystem="local" code="HCTT" displayName= "HEMATOCRIT" /> <statusCode code="completed" /> < effectiveTime value="" /> <value unit="%" xsi:type="PQ " value="27.9" /> <interpretationCode codeSystem="local" code="*" /> <referenceRange> <observationRange> <text>37.0- 47.0</text> </observationRange> </referenceRange> </ observation> </component> <component> <observation moodCode= "EVN" classCode="OBS"> <templateId root="216.840.1.594449.10..22.4.2 " /> <id nullFlavor="NA" /> <code codeSystem="local" code= "PLTT" displayName="PLATELET COUNT" /> <statusCode code="completed" /> <effectiveTime value="" /> <value unit="k/cumm" xsi:type="PQ" value="168" /> <referenceRange> < observationRange> <text>150-400</text> </ observationRange> </referenceRange> </observation> </ component> </organizer> </entry> <entry> <organizer moodCode="EVN" classCode="BATTERY"> <templateId root="216.840.1.429617.10..22.4.1" /> <id nullFlavor="NA" /> <code codeSystem="local" code="PT" displayName= "PROTHROMBIN TIME WITH INR" /> <statusCode code="completed" /> < component> <observation moodCode="EVN" classCode="OBS"> < templateId root="2.16.840.1.208288.10..22.4.2" /> <id nullFlavor="NA " /> <code codeSystem="local" code="INRX" displayName="INTERNATIONAL NORMAL RATIO" /> <statusCode code="completed" /> < effectiveTime value="[id number]" /> <value unit="" xsi:type="PQ" value="1.9" /> <interpretationCode codeSystem="local" code="*" /> <referenceRange> <observationRange> <text>0.9-1.1</ text> </observationRange> </referenceRange> </ observation> </component> <component> <observation moodCode= "EVN" classCode="OBS"> <templateId root="216.840.1.329451.10.22.4.2 " /> <id nullFlavor="NA" /> <code codeSystem="local" code= "PTPAT" displayName="PROTHROMBIN TIME" /> <statusCode code="completed" /> <effectiveTime value="" /> <value unit="sec" xsi:type="PQ" value="22.3" /> <interpretationCode codeSystem="local" code="*" /> <referenceRange> <observationRange> <text>10.0-12.8</text> </observationRange> </ referenceRange> </observation> </component> </organizer> </entry > <entry> <organizer moodCode="EVN" classCode="BATTERY"> <templateId root="216.840.1.311334.10..22.4.1" /> <id nullFlavor="NA" /> <code codeSystem="local" code="RENAL" displayName="RENAL FUNCTION PANEL" /> < statusCode code="completed" /> <component> <observation moodCode= "EVN" classCode="OBS"> <templateId root="216.840.1.965861.10..22.4.2 " /> <id nullFlavor="NA" /> <code codeSystem="local" code="K" displayName="POTASSIUM" /> <statusCode code="completed" /> < effectiveTime value="[id number]" /> <value unit="mmol/L" xsi:type="PQ " value="3.7" /> <referenceRange> <observationRange> <text>3.5-5.3</text> </observationRange> </ referenceRange> </observation> </component> <component> <observation moodCode="EVN" classCode="OBS"> <templateId root= "16.840.1.701643.10..22.4.2" /> <id nullFlavor="NA" /> < code codeSystem="local" code="eGFR" displayName="EST GFR (MDRD)" /> < statusCode code="completed" /> <effectiveTime value="" /> <value unit="mL/min" xsi:type="PQ" value="> 60" /> < referenceRange> <observationRange> <text>> 59</text> </observationRange> </referenceRange> </observation > </component> <component> <observation moodCode="EVN" classCode="OBS"> <templateId root="03.28.840.1.628376.10...4.2" /> <id nullFlavor="NA" /> <code codeSystem="local" code="GAP" displayName="ANION GAP" /> <statusCode code="completed" /> < effectiveTime value="" /> <value unit="mmol/L" xsi:type="PQ " value="9" /> <referenceRange> <observationRange> <text>5-15</text> </observationRange> </referenceRange > </observation> </component> <component> <observation moodCode="EVN" classCode="OBS"> <templateId root= "03.28.840.1.393368.10..22.4.2" /> <id nullFlavor="NA" /> < code codeSystem="local" code="eCrCl" displayName="EST CrCl (CG)" /> < statusCode code="completed" /> <effectiveTime value="" /> <value unit="mL/min" xsi:type="PQ" value="> 60" /> < referenceRange> <observationRange> <text>> 59</text> </observationRange> </referenceRange> </observation > </component> <component> <observation moodCode="EVN" classCode="OBS"> <templateId root="216.840.1.481825.10.4.2" /> <id nullFlavor="NA" /> <code codeSystem="local" code="GLU" displayName="GLUCOSE" /> <statusCode code="completed" /> < effectiveTime value="" /> <value unit="mg/dL" xsi:type="PQ " value="99" /> <referenceRange> <observationRange> <text>70-99</text> </observationRange> </ referenceRange> </observation> </component> <component> <observation moodCode="EVN" classCode="OBS"> <templateId root= "03.28.840.1.775267.11.29.21.4.2" /> <id nullFlavor="NA" /> < code codeSystem="local" code="CA" displayName="CALCIUM" /> <statusCode code="completed" /> <effectiveTime value="" /> < value unit="mg/dL" xsi:type="PQ" value="8.3" /> <interpretationCode codeSystem="local" code="*" /> <referenceRange> < observationRange> <text>8.5-10.1</text> </ observationRange> </referenceRange> </observation> </ component> <component> <observation moodCode="EVN" classCode="OBS"> <templateId root="16.840.1.963616.11.29.21.4.2" /> <id nullFlavor="NA" /> <code codeSystem="local" code="BUN" displayName= "BLOOD UREA NITROGEN" /> <statusCode code="completed" /> < effectiveTime value="" /> <value unit="mg/dL" xsi:type="PQ " value="12" /> <referenceRange> <observationRange> <text>7-20</text> </observationRange> </referenceRange > </observation> </component> <component> <observation moodCode="EVN" classCode="OBS"> <templateId root= "216.840.1.099237.10...4.2" /> <id nullFlavor="NA" /> < code codeSystem="local" code="CREAT" displayName="CREATININE" /> < statusCode code="completed" /> <effectiveTime value="" /> <value unit="mg/dL" xsi:type="PQ" value="0.7" /> < referenceRange> <observationRange> <text>0.6-1.0</text> </observationRange> </referenceRange> </observation > </component> <component> <observation moodCode="EVN" classCode="OBS"> <templateId root="03.28.840.1.366482.10...4.2" /> <id nullFlavor="NA" /> <code codeSystem="local" code="NA" displayName="SODIUM" /> <statusCode code="completed" /> < effectiveTime value="" /> <value unit="mmol/L" xsi:type="PQ " value="139" /> <referenceRange> <observationRange> <text>135-148</text> </observationRange> </ referenceRange> </observation> </component> <component> <observation moodCode="EVN" classCode="OBS"> <templateId root= "16.840.1.842162.10..22.4.2" /> <id nullFlavor="NA" /> < code codeSystem="local" code="CL" displayName="CHLORIDE" /> < statusCode code="completed" /> <effectiveTime value="" /> <value unit="mmol/L" xsi:type="PQ" value="105" /> < referenceRange> <observationRange> <text>98-110</text> </observationRange> </referenceRange> </observation> </component> <component> <observation moodCode="EVN" classCode ="OBS"> <templateId root="16.840.1.918960.10..22.4.2" /> < id nullFlavor="NA" /> <code codeSystem="local" code="CO2" displayName= "CARBON DIOXIDE" /> <statusCode code="completed" /> < effectiveTime value="" /> <value unit="mmol/L" xsi:type="PQ " value="25" /> <referenceRange> <observationRange> <text>21-32</text> </observationRange> </ referenceRange> </observation> </component> <component> <observation moodCode="EVN" classCode="OBS"> <templateId root= "03.28.840.1.840456.10..22.4.2" /> <id nullFlavor="NA" /> < code codeSystem="local" code="ALB" displayName="ALBUMIN" /> < statusCode code="completed" /> <effectiveTime value="" /> <value unit="gm/dL" xsi:type="PQ" value="2.2" /> < interpretationCode codeSystem="local" code="*" /> <referenceRange> <observationRange> <text>3.4-5.0</text> </ observationRange> </referenceRange> </observation> </ component> <component> <observation moodCode="EVN" classCode="OBS"> <templateId root="03.28.840.1.664501.10..4.2" /> <id nullFlavor="NA" /> <code codeSystem="local" code="PHOS" displayName= "PHOSPHORUS" /> <statusCode code="completed" /> < effectiveTime value="" /> <value unit="mg/dL" xsi:type="PQ " value="3.8" /> <referenceRange> <observationRange> <text>2.5-4.9</text> </observationRange> </ referenceRange> </observation> </component> </organizer> </entry > <entry> <organizer moodCode="EVN" classCode="BATTERY"> <templateId root="16.840.1.344453.10..4.1" /> <id nullFlavor="NA" /> <code codeSystem="local" code="MAG" displayName="MAGNESIUM" /> <statusCode code= "completed" /> <component> <observation moodCode="EVN" classCode= "OBS"> <templateId root="16.840.1.184216.10..22.4.2" /> < id nullFlavor="NA" /> <code codeSystem="local" code="MAG" displayName= "MAGNESIUM" /> <statusCode code="completed" /> <effectiveTime value="" /> <value unit="mg/dL" xsi:type="PQ" value="2.0" / > <referenceRange> <observationRange> <text>1.8 -2.4</text> </observationRange> </referenceRange> </ observation> </component> </organizer> </entry> <entry> <organizer moodCode="EVN" classCode="BATTERY"> <templateId root= "16.840.1.365662.22.4.1" /> <id nullFlavor="NA" /> <code codeSystem="local" code="CRP" displayName="C REACTIVE PROTEIN" /> < statusCode code="completed" /> <component> <observation moodCode= "EVN" classCode="OBS"> <templateId root="840.1.511419.11.29.21.4.2 " /> <id nullFlavor="NA" /> <code codeSystem="local" code="CRP " displayName="C REACTIVE PROTEIN" /> <statusCode code="completed" /> <effectiveTime value="" /> <value unit="mg/L" xsi: type="PQ" value="82.2" /> <interpretationCode codeSystem="local" code= "*" /> <referenceRange> <observationRange> < text>< 8.0</text> </observationRange> </referenceRange> </observation> </component> </organizer> </entry> <entry> < organizer moodCode="EVN" classCode="BATTERY"> <templateId root= "840.1.080950.11.29.21.4.1" /> <id nullFlavor="NA" /> <code codeSystem="local" code="PROCAL" displayName="PROCALCITONIN" /> < statusCode code="completed" /> <component> <observation moodCode= "EVN" classCode="OBS"> <templateId root="840.1.419417.10.4.2 " /> <id nullFlavor="NA" /> <code codeSystem="local" code= "PROCAL" displayName="PROCALCITONIN" /> <statusCode code="completed" / > <effectiveTime value="" /> <value unit="ng/mL" xsi:type="PQ" value="1.32" /> <interpretationCode codeSystem="local" code="*" /> <referenceRange> <observationRange> <text>< 0.25</text> </observationRange> </ referenceRange> </observation> </component> </organizer> </entry > <entry> <organizer moodCode="EVN" classCode="BATTERY"> <templateId root="16.840.1.051768.10..4.1" /> <id nullFlavor="NA" /> <code codeSystem="local" code="SED" displayName="SED RATE" /> <statusCode code= "completed" /> <component> <observation moodCode="EVN" classCode= "OBS"> <templateId root="16.840.1.075198.10..4.2" /> < id nullFlavor="NA" /> <code codeSystem="local" code="SED" displayName= "SED RATE" /> <statusCode code="completed" /> <effectiveTime value="[id number]" /> <value unit="mm/hr" xsi:type="PQ" value="47" / > <interpretationCode codeSystem="local" code="*" /> < referenceRange> <observationRange> <text>0-15</text> </observationRange> </referenceRange> </observation> </component> </organizer> </entry> <entry> <organizer moodCode="EVN " classCode="BATTERY"> <templateId root="03.28.840.1.361546.10..4.1" / > <id nullFlavor="NA" /> <code codeSystem="local" code="CBCD" displayName="CBC W/DIFF" /> <statusCode code="completed" /> <component > <observation moodCode="EVN" classCode="OBS"> <templateId root= "03.28.840.1.064914.11.29.21.4.2" /> <id nullFlavor="NA" /> < code codeSystem="local" code="EO#" displayName="EOSINOPHIL #" /> < statusCode code="completed" /> <effectiveTime value="" /> <value unit="k/cumm" xsi:type="PQ" value="0.4" /> < referenceRange> <observationRange> <text>0.1-0.5</text> </observationRange> </referenceRange> </observation > </component> <component> <observation moodCode="EVN" classCode="OBS"> <templateId root="840.1.751839.11.29.214.2" /> <id nullFlavor="NA" /> <code codeSystem="local" code="EO% " displayName="EOSINOPHIL %" /> <statusCode code="completed" /> <effectiveTime value="" /> <value unit="%" xsi: type="PQ" value="7" /> <interpretationCode codeSystem="local" code="*" /> <referenceRange> <observationRange> <text>2- 4</text> </observationRange> </referenceRange> </ observation> </component> <component> <observation moodCode= "EVN" classCode="OBS"> <templateId root="840.1.901973.10.4.2 " /> <id nullFlavor="NA" /> <code codeSystem="local" code="GR# " displayName="GRANULOCYTE #" /> <statusCode code="completed" /> <effectiveTime value="" /> <value unit="k/cumm" xsi: type="PQ" value="3.0" /> <referenceRange> <observationRange > <text>2.0-9.0</text> </observationRange> </ referenceRange> </observation> </component> <component> <observation moodCode="EVN" classCode="OBS"> <templateId root= "16.840.1.734359.10..4.2" /> <id nullFlavor="NA" /> < code codeSystem="local" code="GR%" displayName="GRANULOCYTE %" /> <statusCode code="completed" /> <effectiveTime value="[id number] " /> <value unit="%" xsi:type="PQ" value="54" /> < referenceRange> <observationRange> <text>50-75</text> </observationRange> </referenceRange> </observation> </component> <component> <observation moodCode="EVN" classCode= "OBS"> <templateId root="03.28.840.1.222961.11.29.214.2" /> < id nullFlavor="NA" /> <code codeSystem="local" code="LY#" displayName= "LYMPHOCYTE #" /> <statusCode code="completed" /> < effectiveTime value="303004037347" /> <value unit="k/cumm" xsi:type="PQ " value="1.6" /> <referenceRange> <observationRange> <text>1.0-4.0</text> </observationRange> </ referenceRange> </observation> </component> <component> <observation moodCode="EVN" classCode="OBS"> <templateId root= "16.840.1.721654.11.29.21.4.2" /> <id nullFlavor="NA" /> < code codeSystem="local" code="LY%" displayName="LYMPHOCYTE %" /> <statusCode code="completed" /> <effectiveTime value="" /> <value unit="%" xsi:type="PQ" value="29" /> < referenceRange> <observationRange> <text>20-30</text> </observationRange> </referenceRange> </observation> </component> <component> <observation moodCode="EVN" classCode= "OBS"> <templateId root="216.840.1.384869.10..4.2" /> < id nullFlavor="NA" /> <code codeSystem="local" code="MCH" displayName= "MEAN CELL HGB" /> <statusCode code="completed" /> < effectiveTime value="" /> <value unit="pg" xsi:type="PQ" value="28.6" /> <referenceRange> <observationRange> <text>27.0-33.0</text> </observationRange> </ referenceRange> </observation> </component> <component> <observation moodCode="EVN" classCode="OBS"> <templateId root= "2.16.840.1.893832.10..4.2" /> <id nullFlavor="NA" /> < code codeSystem="local" code="MCHC" displayName="MEAN CELL HGB CONCENTRATION" / > <statusCode code="completed" /> <effectiveTime value= "" /> <value unit="g/dL" xsi:type="PQ" value="31.2" /> <interpretationCode codeSystem="local" code="*" /> < referenceRange> <observationRange> <text>32.0-37.0</text > </observationRange> </referenceRange> </observation > </component> <component> <observation moodCode="EVN" classCode="OBS"> <templateId root="2.16.840.1.074404.11.29.21.4.2" /> <id nullFlavor="NA" /> <code codeSystem="local" code="MCV" displayName="MEAN CELL VOLUME" /> <statusCode code="completed" /> <effectiveTime value="" /> <value unit="fl" xsi:type= "PQ" value="91.8" /> <referenceRange> <observationRange> <text>80.0-100.0</text> </observationRange> </ referenceRange> </observation> </component> <component> <observation moodCode="EVN" classCode="OBS"> <templateId root= "216.840.1.048347.11.29.214.2" /> <id nullFlavor="NA" /> < code codeSystem="local" code="MO#" displayName="MONOCYTE #" /> < statusCode code="completed" /> <effectiveTime value="" /> <value unit="k/cumm" xsi:type="PQ" value="0.5" /> < referenceRange> <observationRange> <text>0.1-1.0</text> </observationRange> </referenceRange> </observation > </component> <component> <observation moodCode="EVN" classCode="OBS"> <templateId root="16.840.1.557058.11.29.21.4.2" /> <id nullFlavor="NA" /> <code codeSystem="local" code="MO% " displayName="MONOCYTE %" /> <statusCode code="completed" /> <effectiveTime value="" /> <value unit="%" xsi: type="PQ" value="10" /> <interpretationCode codeSystem="local" code="* " /> <referenceRange> <observationRange> <text> 4-6</text> </observationRange> </referenceRange> </ observation> </component> <component> <observation moodCode= "EVN" classCode="OBS"> <templateId root="03.28.840.1.737203.10.4.2 " /> <id nullFlavor="NA" /> <code codeSystem="local" code= "MPVT" displayName="MEAN PLATELET VOLUME" /> <statusCode code= "completed" /> <effectiveTime value="" /> <value unit="fl" xsi:type="PQ" value="9.9" /> <referenceRange> < observationRange> <text>8.5-10.9</text> </ observationRange> </referenceRange> </observation> </ component> <component> <observation moodCode="EVN" classCode="OBS"> <templateId root="03.28.840.1.559722.11.29.21.4.2" /> <id nullFlavor="NA" /> <code codeSystem="local" code="RBC" displayName=" RED BLOOD CELL" /> <statusCode code="completed" /> < effectiveTime value="" /> <value unit="m/cumm" xsi:type="PQ " value="3.18" /> <interpretationCode codeSystem="local" code="*" /> <referenceRange> <observationRange> <text>4.00- 6.00</text> </observationRange> </referenceRange> </ observation> </component> <component> <observation moodCode= "EVN" classCode="OBS"> <templateId root="03.28.840.1.563651.11.29.21.4.2 " /> <id nullFlavor="NA" /> <code codeSystem="local" code="RDW " displayName="RED CELL DISTRIBUTION WIDTH" /> <statusCode code= "completed" /> <effectiveTime value="" /> <value unit="%" xsi:type="PQ" value="15.6" /> <referenceRange> <observationRange> <text>11.0-15.6</text> </ observationRange> </referenceRange> </observation> </ component> <component> <observation moodCode="EVN" classCode="OBS"> <templateId root="03.28.840.1.405811.11.29.21.4.2" /> <id nullFlavor="NA" /> <code codeSystem="local" code="WBC" displayName= "WHITE BLOOD CELL" /> <statusCode code="completed" /> < effectiveTime value="" /> <value unit="k/cumm" xsi:type="PQ " value="5.5" /> <referenceRange> <observationRange> <text>5.0-10.0</text> </observationRange> </ referenceRange> </observation> </component> <component> <observation moodCode="EVN" classCode="OBS"> <templateId root= "03.28.840.1.936821.11.29..4.2" /> <id nullFlavor="NA" /> < code codeSystem="local" code="HGBT" displayName="HEMOGLOBIN" /> < statusCode code="completed" /> <effectiveTime value="" /> <value unit="gm/dL" xsi:type="PQ" value="9.1" /> < interpretationCode codeSystem="local" code="*" /> <referenceRange> <observationRange> <text>12.0-16.0</text> </ observationRange> </referenceRange> </observation> </ component> <component> <observation moodCode="EVN" classCode="OBS"> <templateId root="03.28.840.1.396763.10..4.2" /> <id nullFlavor="NA" /> <code codeSystem="local" code="HCTT" displayName= "HEMATOCRIT" /> <statusCode code="completed" /> < effectiveTime value="" /> <value unit="%" xsi:type="PQ " value="29.2" /> <interpretationCode codeSystem="local" code="*" /> <referenceRange> <observationRange> <text>37.0- 47.0</text> </observationRange> </referenceRange> </ observation> </component> <component> <observation moodCode= "EVN" classCode="OBS"> <templateId root="840.1.465799.11.29.21.4.2 " /> <id nullFlavor="NA" /> <code codeSystem="local" code= "PLTT" displayName="PLATELET COUNT" /> <statusCode code="completed" /> <effectiveTime value="" /> <value unit="k/cumm" xsi:type="PQ" value="188" /> <referenceRange> < observationRange> <text>150-400</text> </ observationRange> </referenceRange> </observation> </ component> </organizer> </entry> <entry> <organizer moodCode="EVN" classCode="BATTERY"> <templateId root="03.28.840.1.855856.10.4.1" /> <id nullFlavor="NA" /> <code codeSystem="local" code="PT" displayName= "PROTHROMBIN TIME WITH INR" /> <statusCode code="completed" /> < component> <observation moodCode="EVN" classCode="OBS"> < templateId root="03.28.840.1.637577.11.29.21.4.2" /> <id nullFlavor="NA " /> <code codeSystem="local" code="INRX" displayName="INTERNATIONAL NORMAL RATIO" /> <statusCode code="completed" /> < effectiveTime value="" /> <value unit="" xsi:type="PQ" value="1.8" /> <interpretationCode codeSystem="local" code="*" /> <referenceRange> <observationRange> <text>0.9-1.1</ text> </observationRange> </referenceRange> </ observation> </component> <component> <observation moodCode= "EVN" classCode="OBS"> <templateId root="16.840.1.333194.11.29.214.2 " /> <id nullFlavor="NA" /> <code codeSystem="local" code= "PTPAT" displayName="PROTHROMBIN TIME" /> <statusCode code="completed" /> <effectiveTime value="" /> <value unit="sec" xsi:type="PQ" value="20.3" /> <interpretationCode codeSystem="local" code="*" /> <referenceRange> <observationRange> <text>10.0-12.8</text> </observationRange> </ referenceRange> </observation> </component> </organizer> </entry > <entry> <organizer moodCode="EVN" classCode="BATTERY"> <templateId root="16.840.1.112821.11.29.21.4.1" /> <id nullFlavor="NA" /> <code codeSystem="local" code="METABC" displayName="METABOLIC PANEL, COMPREHN" /> <statusCode code="completed" /> <component> <observation moodCode= "EVN" classCode="OBS"> <templateId root="03.28.840.1.767157.22.4.2 " /> <id nullFlavor="NA" /> <code codeSystem="local" code="K" displayName="POTASSIUM" /> <statusCode code="completed" /> < effectiveTime value="" /> <value unit="mmol/L" xsi:type="PQ " value="4.0" /> <referenceRange> <observationRange> <text>3.5-5.3</text> </observationRange> </ referenceRange> </observation> </component> <component> <observation moodCode="EVN" classCode="OBS"> <templateId root= "216.840.1.628069.11.29.21.4.2" /> <id nullFlavor="NA" /> < code codeSystem="local" code="eGFR" displayName="EST GFR (MDRD)" /> < statusCode code="completed" /> <effectiveTime value="" /> <value unit="mL/min" xsi:type="PQ" value="> 60" /> < referenceRange> <observationRange> <text>> 59</text> </observationRange> </referenceRange> </observation > </component> <component> <observation moodCode="EVN" classCode="OBS"> <templateId root="216.840.1.080926.11.29.21.4.2" /> <id nullFlavor="NA" /> <code codeSystem="local" code="GAP" displayName="ANION GAP" /> <statusCode code="completed" /> < effectiveTime value="" /> <value unit="mmol/L" xsi:type="PQ " value="7" /> <referenceRange> <observationRange> <text>5-15</text> </observationRange> </referenceRange > </observation> </component> <component> <observation moodCode="EVN" classCode="OBS"> <templateId root= "216.840.1.197150.10..22.4.2" /> <id nullFlavor="NA" /> < code codeSystem="local" code="eCrCl" displayName="EST CrCl (CG)" /> < statusCode code="completed" /> <effectiveTime value="" /> <value unit="mL/min" xsi:type="PQ" value="> 60" /> < referenceRange> <observationRange> <text>> 59</text> </observationRange> </referenceRange> </observation > </component> <component> <observation moodCode="EVN" classCode="OBS"> <templateId root="216.840.1.463391...4.2" /> <id nullFlavor="NA" /> <code codeSystem="local" code="GLU" displayName="GLUCOSE" /> <statusCode code="completed" /> < effectiveTime value="" /> <value unit="mg/dL" xsi:type="PQ " value="93" /> <referenceRange> <observationRange> <text>70-99</text> </observationRange> </ referenceRange> </observation> </component> <component> <observation moodCode="EVN" classCode="OBS"> <templateId root= "16.840.1.205061.10..22.4.2" /> <id nullFlavor="NA" /> < code codeSystem="local" code="CA" displayName="CALCIUM" /> <statusCode code="completed" /> <effectiveTime value="" /> < value unit="mg/dL" xsi:type="PQ" value="8.6" /> <referenceRange> <observationRange> <text>8.5-10.1</text> </ observationRange> </referenceRange> </observation> </ component> <component> <observation moodCode="EVN" classCode="OBS"> <templateId root="216.840.1.563614.10..22.4.2" /> <id nullFlavor="NA" /> <code codeSystem="local" code="BUN" displayName= "BLOOD UREA NITROGEN" /> <statusCode code="completed" /> < effectiveTime value="" /> <value unit="mg/dL" xsi:type="PQ " value="9" /> <referenceRange> <observationRange> <text>7-20</text> </observationRange> </referenceRange > </observation> </component> <component> <observation moodCode="EVN" classCode="OBS"> <templateId root= "03.28.840.1.201773.11.29.21.4.2" /> <id nullFlavor="NA" /> < code codeSystem="local" code="CREAT" displayName="CREATININE" /> < statusCode code="completed" /> <effectiveTime value="" /> <value unit="mg/dL" xsi:type="PQ" value="0.7" /> < referenceRange> <observationRange> <text>0.6-1.0</text> </observationRange> </referenceRange> </observation > </component> <component> <observation moodCode="EVN" classCode="OBS"> <templateId root="16.840.1.857896..22.4.2" /> <id nullFlavor="NA" /> <code codeSystem="local" code="NA" displayName="SODIUM" /> <statusCode code="completed" /> < effectiveTime value="" /> <value unit="mmol/L" xsi:type="PQ " value="140" /> <referenceRange> <observationRange> <text>135-148</text> </observationRange> </ referenceRange> </observation> </component> <component> <observation moodCode="EVN" classCode="OBS"> <templateId root= "216.840.1.376485.10..22.4.2" /> <id nullFlavor="NA" /> < code codeSystem="local" code="CL" displayName="CHLORIDE" /> < statusCode code="completed" /> <effectiveTime value="" /> <value unit="mmol/L" xsi:type="PQ" value="107" /> < referenceRange> <observationRange> <text>98-110</text> </observationRange> </referenceRange> </observation> </component> <component> <observation moodCode="EVN" classCode ="OBS"> <templateId root="216.840.1.550766.10...4.2" /> < id nullFlavor="NA" /> <code codeSystem="local" code="AST" displayName= "AST/SGOT" /> <statusCode code="completed" /> <effectiveTime value="" /> <value unit="Units/L" xsi:type="PQ" value="26" /> <referenceRange> <observationRange> <text>10 -37</text> </observationRange> </referenceRange> </ observation> </component> <component> <observation moodCode= "EVN" classCode="OBS"> <templateId root="216.840.1.631184.10...4.2 " /> <id nullFlavor="NA" /> <code codeSystem="local" code="ALT " displayName="ALT/SGPT" /> <statusCode code="completed" /> < effectiveTime value="" /> <value unit="Units/L" xsi:type= "PQ" value="33" /> <referenceRange> <observationRange> <text>< 66</text> </observationRange> </ referenceRange> </observation> </component> <component> <observation moodCode="EVN" classCode="OBS"> <templateId root= "03.28.840.1.931980.10..22.4.2" /> <id nullFlavor="NA" /> < code codeSystem="local" code="CO2" displayName="CARBON DIOXIDE" /> < statusCode code="completed" /> <effectiveTime value="" /> <value unit="mmol/L" xsi:type="PQ" value="26" /> < referenceRange> <observationRange> <text>21-32</text> </observationRange> </referenceRange> </observation> </component> <component> <observation moodCode="EVN" classCode= "OBS"> <templateId root="03.28.840.1.859683.10..22.4.2" /> < id nullFlavor="NA" /> <code codeSystem="local" code="TP" displayName= "TOTAL PROTEIN" /> <statusCode code="completed" /> < effectiveTime value="" /> <value unit="gm/dL" xsi:type="PQ " value="5.8" /> <interpretationCode codeSystem="local" code="*" /> <referenceRange> <observationRange> <text>6.4-8.2 </text> </observationRange> </referenceRange> </ observation> </component> <component> <observation moodCode= "EVN" classCode="OBS"> <templateId root="840.1.919239.10..22.4.2 " /> <id nullFlavor="NA" /> <code codeSystem="local" code="ALB " displayName="ALBUMIN" /> <statusCode code="completed" /> < effectiveTime value="" /> <value unit="gm/dL" xsi:type="PQ " value="2.3" /> <interpretationCode codeSystem="local" code="*" /> <referenceRange> <observationRange> <text>3.4-5.0 </text> </observationRange> </referenceRange> </ observation> </component> <component> <observation moodCode= "EVN" classCode="OBS"> <templateId root="03.28.840.1.779522.10.22.4.2 " /> <id nullFlavor="NA" /> <code codeSystem="local" code= "BILTOT" displayName="BILI TOTAL" /> <statusCode code="completed" /> <effectiveTime value="" /> <value unit="mg/dL" xsi: type="PQ" value="0.3" /> <referenceRange> <observationRange > <text>0.0-1.0</text> </observationRange> </ referenceRange> </observation> </component> <component> <observation moodCode="EVN" classCode="OBS"> <templateId root= "03.28.840.1.244918.10..22.4.2" /> <id nullFlavor="NA" /> < code codeSystem="local" code="ALKP" displayName="ALKALINE PHOSPHATASE TOTAL" /> <statusCode code="completed" /> <effectiveTime value= "" /> <value unit="IU/L" xsi:type="PQ" value="185" /> <interpretationCode codeSystem="local" code="*" /> <referenceRange > <observationRange> <text>45-117</text> </ observationRange> </referenceRange> </observation> </ component> </organizer> </entry> <entry> <organizer moodCode="EVN" classCode="BATTERY"> <templateId root="03.28.840.1.060983.10..22.4.1" /> <id nullFlavor="NA" /> <code codeSystem="local" code="MAG" displayName ="MAGNESIUM" /> <statusCode code="completed" /> <component> < observation moodCode="EVN" classCode="OBS"> <templateId root= "840.1.890788..22.4.2" /> <id nullFlavor="NA" /> < code codeSystem="local" code="MAG" displayName="MAGNESIUM" /> < statusCode code="completed" /> <effectiveTime value="385502878391" /> <value unit="mg/dL" xsi:type="PQ" value="2.0" /> < referenceRange> <observationRange> <text>1.8-2.4</text> </observationRange> </referenceRange> </observation > </component> </organizer> </entry> <entry> <organizer moodCode= "EVN" classCode="BATTERY"> <templateId root="03.28.840.1.080961.10.22.4.1 " /> <id nullFlavor="NA" /> <code codeSystem="local" code="CBC" displayName="CBC" /> <statusCode code="completed" /> <component> <observation moodCode="EVN" classCode="OBS"> <templateId root= "03.28.840.1.675383.10.20.22.4.2" /> <id nullFlavor="NA" /> < code codeSystem="local" code="MCH" displayName="MEAN CELL HGB" /> < statusCode code="completed" /> <effectiveTime value="785841146330" /> <value unit="pg" xsi:type="PQ" value="28.3" /> <referenceRange > <observationRange> <text>27.0-33.0</text> < /observationRange> </referenceRange> </observation> </ component> <component> <observation moodCode="EVN" classCode="OBS"> <templateId root="2.16.840.1.726534.10..22.4.2" /> <id nullFlavor="NA" /> <code codeSystem="local" code="MCHC" displayName= "MEAN CELL HGB CONCENTRATION" /> <statusCode code="completed" /> <effectiveTime value="586022289341" /> <value unit="g/dL" xsi:type= "PQ" value="31.5" /> <interpretationCode codeSystem="local" code="*" / > <referenceRange> <observationRange> <text> 32.0-37.0</text> </observationRange> </referenceRange> </observation> </component> <component> <observation moodCode="EVN" classCode="OBS"> <templateId root= "216.840.1.840494.10.20.22.4.2" /> <id nullFlavor="NA" /> < code codeSystem="local" code="MCV" displayName="MEAN CELL VOLUME" /> < statusCode code="completed" /> <effectiveTime value="608533210116" /> <value unit="fl" xsi:type="PQ" value="89.9" /> <referenceRange > <observationRange> <text>80.0-100.0</text> </observationRange> </referenceRange> </observation> </ component> <component> <observation moodCode="EVN" classCode="OBS"> <templateId root="03.28.840.1.167256.10..4.2" /> <id nullFlavor="NA" /> <code codeSystem="local" code="MPVT" displayName= "MEAN PLATELET VOLUME" /> <statusCode code="completed" /> < effectiveTime value="867264230590" /> <value unit="fl" xsi:type="PQ" value="9.6" /> <referenceRange> <observationRange> <text>8.5-10.9</text> </observationRange> </ referenceRange> </observation> </component> <component> <observation moodCode="EVN" classCode="OBS"> <templateId root= "16.840.1.573437.11.29.21.4.2" /> <id nullFlavor="NA" /> < code codeSystem="local" code="RBC" displayName="RED BLOOD CELL" /> < statusCode code="completed" /> <effectiveTime value="621385895728" /> <value unit="m/cumm" xsi:type="PQ" value="3.46" /> < interpretationCode codeSystem="local" code="*" /> <referenceRange> <observationRange> <text>4.00-6.00</text> </ observationRange> </referenceRange> </observation> </ component> <component> <observation moodCode="EVN" classCode="OBS"> <templateId root="03.28.840.1.071324.11.29.21.4.2" /> <id nullFlavor="NA" /> <code codeSystem="local" code="RDW" displayName=" RED CELL DISTRIBUTION WIDTH" /> <statusCode code="completed" /> <effectiveTime value="445360935253" /> <value unit="%" xsi:type= "PQ" value="15.8" /> <interpretationCode codeSystem="local" code="*" / > <referenceRange> <observationRange> <text> 11.0-15.6</text> </observationRange> </referenceRange> </observation> </component> <component> <observation moodCode="EVN" classCode="OBS"> <templateId root= "216.840.1.981454.10.4.2" /> <id nullFlavor="NA" /> < code codeSystem="local" code="WBC" displayName="WHITE BLOOD CELL" /> < statusCode code="completed" /> <effectiveTime value="604623266060" /> <value unit="k/cumm" xsi:type="PQ" value="6.5" /> < referenceRange> <observationRange> <text>5.0-10.0</text > </observationRange> </referenceRange> </observation > </component> <component> <observation moodCode="EVN" classCode="OBS"> <templateId root="216.840.1.852739.11.29.21.4.2" /> <id nullFlavor="NA" /> <code codeSystem="local" code="HGBT" displayName="HEMOGLOBIN" /> <statusCode code="completed" /> < effectiveTime value="192228470460" /> <value unit="gm/dL" xsi:type="PQ " value="9.8" /> <interpretationCode codeSystem="local" code="*" /> <referenceRange> <observationRange> <text>12.0- 16.0</text> </observationRange> </referenceRange> </ observation> </component> <component> <observation moodCode= "EVN" classCode="OBS"> <templateId root="2..840.1.734170.22.4.2 " /> <id nullFlavor="NA" /> <code codeSystem="local" code= "HCTT" displayName="HEMATOCRIT" /> <statusCode code="completed" /> <effectiveTime value="964589350671" /> <value unit="%" xsi: type="PQ" value="31.1" /> <interpretationCode codeSystem="local" code= "*" /> <referenceRange> <observationRange> < text>37.0-47.0</text> </observationRange> </referenceRange> </observation> </component> <component> <observation moodCode="EVN" classCode="OBS"> <templateId root= "840.1.371269.11.29.21.4.2" /> <id nullFlavor="NA" /> < code codeSystem="local" code="PLTT" displayName="PLATELET COUNT" /> < statusCode code="completed" /> <effectiveTime value="673578480938" /> <value unit="k/cumm" xsi:type="PQ" value="220" /> < referenceRange> <observationRange> <text>150-400</text> </observationRange> </referenceRange> </observation > </component> </organizer> </entry> <entry> <organizer moodCode= "EVN" classCode="BATTERY"> <templateId root="03.28.840.1.110340.22.4.1 " /> <id nullFlavor="NA" /> <code codeSystem="local" code="RENAL" displayName="RENAL FUNCTION PANEL" /> <statusCode code="completed" /> <component> <observation moodCode="EVN" classCode="OBS"> < templateId root="03.28.840.1.566835.22.4.2" /> <id nullFlavor="NA " /> <code codeSystem="local" code="K" displayName="POTASSIUM" /> <statusCode code="completed" /> <effectiveTime value="822707531884 " /> <value unit="mmol/L" xsi:type="PQ" value="3.5" /> < referenceRange> <observationRange> <text>3.5-5.3</text> </observationRange> </referenceRange> </observation > </component> <component> <observation moodCode="EVN" classCode="OBS"> <templateId root="2.16.840.1.947818.10.4.2" /> <id nullFlavor="NA" /> <code codeSystem="local" code="eGFR" displayName="EST GFR (MDRD)" /> <statusCode code="completed" /> <effectiveTime value="980722695418" /> <value unit="mL/min" xsi:type ="PQ" value="> 60" /> <referenceRange> <observationRange > <text>> 59</text> </observationRange> </ referenceRange> </observation> </component> <component> <observation moodCode="EVN" classCode="OBS"> <templateId root= "2.16.840.1.103859.10...4.2" /> <id nullFlavor="NA" /> < code codeSystem="local" code="GAP" displayName="ANION GAP" /> < statusCode code="completed" /> <effectiveTime value="021482761948" /> <value unit="mmol/L" xsi:type="PQ" value="9" /> < referenceRange> <observationRange> <text>5-15</text> </observationRange> </referenceRange> </observation> </component> <component> <observation moodCode="EVN" classCode= "OBS"> <templateId root="03.28.840.1.224986.10.20.22.4.2" /> < id nullFlavor="NA" /> <code codeSystem="local" code="eCrCl" displayName ="EST CrCl (CG)" /> <statusCode code="completed" /> < effectiveTime value="" /> <value unit="mL/min" xsi:type="PQ " value="> 60" /> <referenceRange> <observationRange> <text>> 59</text> </observationRange> </ referenceRange> </observation> </component> <component> <observation moodCode="EVN" classCode="OBS"> <templateId root= "840.1.117273.10..4.2" /> <id nullFlavor="NA" /> < code codeSystem="local" code="GLU" displayName="GLUCOSE" /> < statusCode code="completed" /> <effectiveTime value="" /> <value unit="mg/dL" xsi:type="PQ" value="91" /> < referenceRange> <observationRange> <text>70-99</text> </observationRange> </referenceRange> </observation> </component> <component> <observation moodCode="EVN" classCode= "OBS"> <templateId root="03.28.840.1.992551.10..22.4.2" /> < id nullFlavor="NA" /> <code codeSystem="local" code="CA" displayName= "CALCIUM" /> <statusCode code="completed" /> <effectiveTime value="" /> <value unit="mg/dL" xsi:type="PQ" value="8.3" / > <interpretationCode codeSystem="local" code="*" /> < referenceRange> <observationRange> <text>8.5-10.1</text > </observationRange> </referenceRange> </observation > </component> <component> <observation moodCode="EVN" classCode="OBS"> <templateId root="16.840.1.753636.10.20.22.4.2" /> <id nullFlavor="NA" /> <code codeSystem="local" code="BUN" displayName="BLOOD UREA NITROGEN" /> <statusCode code="completed" /> <effectiveTime value="562669172197" /> <value unit="mg/dL" xsi: type="PQ" value="10" /> <referenceRange> <observationRange> <text>7-20</text> </observationRange> </ referenceRange> </observation> </component> <component> <observation moodCode="EVN" classCode="OBS"> <templateId root= "03.28.840.1.896612.10...4.2" /> <id nullFlavor="NA" /> < code codeSystem="local" code="CREAT" displayName="CREATININE" /> < statusCode code="completed" /> <effectiveTime value="402410238695" /> <value unit="mg/dL" xsi:type="PQ" value="0.5" /> < interpretationCode codeSystem="local" code="*" /> <referenceRange> <observationRange> <text>0.6-1.0</text> </ observationRange> </referenceRange> </observation> </ component> <component> <observation moodCode="EVN" classCode="OBS"> <templateId root="03.28.840.1.166365.10.20.22.4.2" /> <id nullFlavor="NA" /> <code codeSystem="local" code="NA" displayName= "SODIUM" /> <statusCode code="completed" /> <effectiveTime value="415510793652" /> <value unit="mmol/L" xsi:type="PQ" value="141" /> <referenceRange> <observationRange> <text> 135-148</text> </observationRange> </referenceRange> </observation> </component> <component> <observation moodCode= "EVN" classCode="OBS"> <templateId root="216.840.1.065267.10..4.2 " /> <id nullFlavor="NA" /> <code codeSystem="local" code="CL " displayName="CHLORIDE" /> <statusCode code="completed" /> < effectiveTime value="976231581988" /> <value unit="mmol/L" xsi:type="PQ " value="104" /> <referenceRange> <observationRange> <text>98-110</text> </observationRange> </ referenceRange> </observation> </component> <component> <observation moodCode="EVN" classCode="OBS"> <templateId root= "16.840.1.504835...4.2" /> <id nullFlavor="NA" /> < code codeSystem="local" code="CO2" displayName="CARBON DIOXIDE" /> < statusCode code="completed" /> <effectiveTime value="176288765472" /> <value unit="mmol/L" xsi:type="PQ" value="28" /> < referenceRange> <observationRange> <text>21-32</text> </observationRange> </referenceRange> </observation> </component> <component> <observation moodCode="EVN" classCode= "OBS"> <templateId root="216.840.1.733235.10..4.2" /> < id nullFlavor="NA" /> <code codeSystem="local" code="ALB" displayName= "ALBUMIN" /> <statusCode code="completed" /> <effectiveTime value="" /> <value unit="gm/dL" xsi:type="PQ" value="2.2" / > <interpretationCode codeSystem="local" code="*" /> < referenceRange> <observationRange> <text>3.4-5.0</text> </observationRange> </referenceRange> </observation > </component> <component> <observation moodCode="EVN" classCode="OBS"> <templateId root="840.1.382854.11.29.21.4.2" /> <id nullFlavor="NA" /> <code codeSystem="local" code="PHOS" displayName="PHOSPHORUS" /> <statusCode code="completed" /> < effectiveTime value="" /> <value unit="mg/dL" xsi:type="PQ " value="3.0" /> <referenceRange> <observationRange> <text>2.5-4.9</text> </observationRange> </ referenceRange> </observation> </component> </organizer> </entry > <entry> <organizer moodCode="EVN" classCode="BATTERY"> <templateId root="840.1.535689.22.4.1" /> <id nullFlavor="NA" /> <code codeSystem="local" code="MAG" displayName="MAGNESIUM" /> <statusCode code= "completed" /> <component> <observation moodCode="EVN" classCode= "OBS"> <templateId root="840.1.043782.2022.4.2" /> < id nullFlavor="NA" /> <code codeSystem="local" code="MAG" displayName= "MAGNESIUM" /> <statusCode code="completed" /> <effectiveTime value="479615810757" /> <value unit="mg/dL" xsi:type="PQ" value="1.8" / > <referenceRange> <observationRange> <text>1.8 -2.4</text> </observationRange> </referenceRange> </ observation> </component> </organizer> </entry> <entry> <organizer moodCode="EVN" classCode="BATTERY"> <templateId root= "03.28.840.1.915491.10.20.22.4.1" /> <id nullFlavor="NA" /> <code codeSystem="local" code="PT" displayName="PROTHROMBIN TIME WITH INR" /> < statusCode code="completed" /> <component> <observation moodCode= "EVN" classCode="OBS"> <templateId root="03.28.840.1.836889.10..22.4.2 " /> <id nullFlavor="NA" /> <code codeSystem="local" code= "INRX" displayName="INTERNATIONAL NORMAL RATIO" /> <statusCode code= "completed" /> <effectiveTime value="809953485591" /> <value unit="" xsi:type="PQ" value="2.6" /> <interpretationCode codeSystem= "local" code="*" /> <referenceRange> <observationRange> <text>0.9-1.1</text> </observationRange> </ referenceRange> </observation> </component> <component> <observation moodCode="EVN" classCode="OBS"> <templateId root= "03.28.840.1.808275.10.20.22.4.2" /> <id nullFlavor="NA" /> < code codeSystem="local" code="PTPAT" displayName="PROTHROMBIN TIME" /> <statusCode code="completed" /> <effectiveTime value="041424170864" /> <value unit="sec" xsi:type="PQ" value="29.5" /> < interpretationCode codeSystem="local" code="*" /> <referenceRange> <observationRange> <text>10.0-12.8</text> </ observationRange> </referenceRange> </observation> </ component> </organizer> </entry> <entry> <organizer moodCode="EVN" classCode="BATTERY"> <templateId root="216.840.1.802218.10...4.1" /> <id nullFlavor="NA" /> <code codeSystem="local" code="CBCD" displayName="CBC W/DIFF" /> <statusCode code="completed" /> <component > <observation moodCode="EVN" classCode="OBS"> <templateId root= "216.840.1.035801.10...4.2" /> <id nullFlavor="NA" /> < code codeSystem="local" code="EO#" displayName="EOSINOPHIL #" /> < statusCode code="completed" /> <effectiveTime value="730240800759" /> <value unit="k/cumm" xsi:type="PQ" value="0.4" /> < referenceRange> <observationRange> <text>0.1-0.5</text> </observationRange> </referenceRange> </observation > </component> <component> <observation moodCode="EVN" classCode="OBS"> <templateId root="216.840.1.762375.10..4.2" /> <id nullFlavor="NA" /> <code codeSystem="local" code="EO% " displayName="EOSINOPHIL %" /> <statusCode code="completed" /> <effectiveTime value="473859038558" /> <value unit="%" xsi: type="PQ" value="8" /> <interpretationCode codeSystem="local" code="*" /> <referenceRange> <observationRange> <text>2- 4</text> </observationRange> </referenceRange> </ observation> </component> <component> <observation moodCode= "EVN" classCode="OBS"> <templateId root="216.840.1.733154.10.20.22.4.2 " /> <id nullFlavor="NA" /> <code codeSystem="local" code="GR# " displayName="GRANULOCYTE #" /> <statusCode code="completed" /> <effectiveTime value="759418622615" /> <value unit="k/cumm" xsi: type="PQ" value="3.0" /> <referenceRange> <observationRange > <text>2.0-9.0</text> </observationRange> </ referenceRange> </observation> </component> <component> <observation moodCode="EVN" classCode="OBS"> <templateId root= "216.840.1.896969.10.20.22.4.2" /> <id nullFlavor="NA" /> < code codeSystem="local" code="GR%" displayName="GRANULOCYTE %" /> <statusCode code="completed" /> <effectiveTime value="806129545902 " /> <value unit="%" xsi:type="PQ" value="52" /> < referenceRange> <observationRange> <text>50-75</text> </observationRange> </referenceRange> </observation> </component> <component> <observation moodCode="EVN" classCode= "OBS"> <templateId root="16.840.1.318358.1022.4.2" /> < id nullFlavor="NA" /> <code codeSystem="local" code="LY#" displayName= "LYMPHOCYTE #" /> <statusCode code="completed" /> < effectiveTime value="" /> <value unit="k/cumm" xsi:type="PQ " value="1.8" /> <referenceRange> <observationRange> <text>1.0-4.0</text> </observationRange> </ referenceRange> </observation> </component> <component> <observation moodCode="EVN" classCode="OBS"> <templateId root= "03.28.840.1.609344.11.29.214.2" /> <id nullFlavor="NA" /> < code codeSystem="local" code="LY%" displayName="LYMPHOCYTE %" /> <statusCode code="completed" /> <effectiveTime value="" /> <value unit="%" xsi:type="PQ" value="31" /> < interpretationCode codeSystem="local" code="*" /> <referenceRange> <observationRange> <text>20-30</text> </ observationRange> </referenceRange> </observation> </ component> <component> <observation moodCode="EVN" classCode="OBS"> <templateId root="03.28.840.1.663907.10..4.2" /> <id nullFlavor="NA" /> <code codeSystem="local" code="MCH" displayName= "MEAN CELL HGB" /> <statusCode code="completed" /> < effectiveTime value="917271924833" /> <value unit="pg" xsi:type="PQ" value="28.1" /> <referenceRange> <observationRange> <text>27.0-33.0</text> </observationRange> </ referenceRange> </observation> </component> <component> <observation moodCode="EVN" classCode="OBS"> <templateId root= "03.28.840.1.594078.10.20.22.4.2" /> <id nullFlavor="NA" /> < code codeSystem="local" code="MCHC" displayName="MEAN CELL HGB CONCENTRATION" / > <statusCode code="completed" /> <effectiveTime value= "315877436497" /> <value unit="g/dL" xsi:type="PQ" value="31.0" /> <interpretationCode codeSystem="local" code="*" /> < referenceRange> <observationRange> <text>32.0-37.0</text > </observationRange> </referenceRange> </observation > </component> <component> <observation moodCode="EVN" classCode="OBS"> <templateId root="840.1.924585.1022.4.2" /> <id nullFlavor="NA" /> <code codeSystem="local" code="MCV" displayName="MEAN CELL VOLUME" /> <statusCode code="completed" /> <effectiveTime value="681708398495" /> <value unit="fl" xsi:type= "PQ" value="90.6" /> <referenceRange> <observationRange> <text>80.0-100.0</text> </observationRange> </ referenceRange> </observation> </component> <component> <observation moodCode="EVN" classCode="OBS"> <templateId root= "03.28.840.1.306996.10.20.22.4.2" /> <id nullFlavor="NA" /> < code codeSystem="local" code="MO#" displayName="MONOCYTE #" /> < statusCode code="completed" /> <effectiveTime value="772267154675" /> <value unit="k/cumm" xsi:type="PQ" value="0.5" /> < referenceRange> <observationRange> <text>0.1-1.0</text> </observationRange> </referenceRange> </observation > </component> <component> <observation moodCode="EVN" classCode="OBS"> <templateId root="216.840.1.847094.10.20.22.4.2" /> <id nullFlavor="NA" /> <code codeSystem="local" code="MO% " displayName="MONOCYTE %" /> <statusCode code="completed" /> <effectiveTime value="366409926921" /> <value unit="%" xsi: type="PQ" value="9" /> <interpretationCode codeSystem="local" code="*" /> <referenceRange> <observationRange> <text>4- 6</text> </observationRange> </referenceRange> </ observation> </component> <component> <observation moodCode= "EVN" classCode="OBS"> <templateId root="16.840.1.721740.10.20.22.4.2 " /> <id nullFlavor="NA" /> <code codeSystem="local" code= "MPVT" displayName="MEAN PLATELET VOLUME" /> <statusCode code= "completed" /> <effectiveTime value="597681262955" /> <value unit="fl" xsi:type="PQ" value="9.9" /> <referenceRange> < observationRange> <text>8.5-10.9</text> </ observationRange> </referenceRange> </observation> </ component> <component> <observation moodCode="EVN" classCode="OBS"> <templateId root="216.840.1.606232.10..22.4.2" /> <id nullFlavor="NA" /> <code codeSystem="local" code="RBC" displayName=" RED BLOOD CELL" /> <statusCode code="completed" /> < effectiveTime value="565045358486" /> <value unit="m/cumm" xsi:type="PQ " value="3.60" /> <interpretationCode codeSystem="local" code="*" /> <referenceRange> <observationRange> <text>4.00- 6.00</text> </observationRange> </referenceRange> </ observation> </component> <component> <observation moodCode= "EVN" classCode="OBS"> <templateId root="16.840.1.111375.10...4.2 " /> <id nullFlavor="NA" /> <code codeSystem="local" code="RDW " displayName="RED CELL DISTRIBUTION WIDTH" /> <statusCode code= "completed" /> <effectiveTime value="" /> <value unit="%" xsi:type="PQ" value="15.8" /> <interpretationCode codeSystem="local" code="*" /> <referenceRange> < observationRange> <text>11.0-15.6</text> </ observationRange> </referenceRange> </observation> </ component> <component> <observation moodCode="EVN" classCode="OBS"> <templateId root="16.840.1.494015.10..22.4.2" /> <id nullFlavor="NA" /> <code codeSystem="local" code="WBC" displayName= "WHITE BLOOD CELL" /> <statusCode code="completed" /> < effectiveTime value="805110782108" /> <value unit="k/cumm" xsi:type="PQ " value="5.8" /> <referenceRange> <observationRange> <text>5.0-10.0</text> </observationRange> </ referenceRange> </observation> </component> <component> <observation moodCode="EVN" classCode="OBS"> <templateId root= "216.840.1.182625.10..4.2" /> <id nullFlavor="NA" /> < code codeSystem="local" code="HGBT" displayName="HEMOGLOBIN" /> < statusCode code="completed" /> <effectiveTime value="" /> <value unit="gm/dL" xsi:type="PQ" value="10.1" /> < interpretationCode codeSystem="local" code="*" /> <referenceRange> <observationRange> <text>12.0-16.0</text> </ observationRange> </referenceRange> </observation> </ component> <component> <observation moodCode="EVN" classCode="OBS"> <templateId root="16.840.1.636307.11.29.21.4.2" /> <id nullFlavor="NA" /> <code codeSystem="local" code="HCTT" displayName= "HEMATOCRIT" /> <statusCode code="completed" /> < effectiveTime value="353739681102" /> <value unit="%" xsi:type="PQ " value="32.6" /> <interpretationCode codeSystem="local" code="*" /> <referenceRange> <observationRange> <text>37.0- 47.0</text> </observationRange> </referenceRange> </ observation> </component> <component> <observation moodCode= "EVN" classCode="OBS"> <templateId root="216.840.1.626981.11.29.21.4.2 " /> <id nullFlavor="NA" /> <code codeSystem="local" code= "PLTT" displayName="PLATELET COUNT" /> <statusCode code="completed" /> <effectiveTime value="383916221361" /> <value unit="k/cumm" xsi:type="PQ" value="243" /> <referenceRange> < observationRange> <text>150-400</text> </ observationRange> </referenceRange> </observation> </ component> </organizer> </entry> <entry> <organizer moodCode="EVN" classCode="BATTERY"> <templateId root="216.840.1.221427.11.29.21.4.1" /> <id nullFlavor="NA" /> <code codeSystem="local" code="PT" displayName= "PROTHROMBIN TIME WITH INR" /> <statusCode code="completed" /> < component> <observation moodCode="EVN" classCode="OBS"> < templateId root="216.840.1.580887.10...4.2" /> <id nullFlavor="NA " /> <code codeSystem="local" code="INRX" displayName="INTERNATIONAL NORMAL RATIO" /> <statusCode code="completed" /> < effectiveTime value="487461835682" /> <value unit="" xsi:type="PQ" value="2.9" /> <interpretationCode codeSystem="local" code="*" /> <referenceRange> <observationRange> <text>0.9-1.1</ text> </observationRange> </referenceRange> </ observation> </component> <component> <observation moodCode= "EVN" classCode="OBS"> <templateId root="16.840.1.188642....4.2 " /> <id nullFlavor="NA" /> <code codeSystem="local" code= "PTPAT" displayName="PROTHROMBIN TIME" /> <statusCode code="completed" /> <effectiveTime value="291016169695" /> <value unit="sec" xsi:type="PQ" value="32.8" /> <interpretationCode codeSystem="local" code="*" /> <referenceRange> <observationRange> <text>10.0-12.8</text> </observationRange> </ referenceRange> </observation> </component> </organizer> </entry > <entry> <organizer moodCode="EVN" classCode="BATTERY"> <templateId root="216.840.1.390539.10.20.22.4.1" /> <id nullFlavor="NA" /> <code codeSystem="local" code="MAG" displayName="MAGNESIUM" /> <statusCode code= "completed" /> <component> <observation moodCode="EVN" classCode= "OBS"> <templateId root="216.840.1.477832.10..22.4.2" /> < id nullFlavor="NA" /> <code codeSystem="local" code="MAG" displayName= "MAGNESIUM" /> <statusCode code="completed" /> <effectiveTime value="592899710267" /> <value unit="mg/dL" xsi:type="PQ" value="2.0" / > <referenceRange> <observationRange> <text>1.8 -2.4</text> </observationRange> </referenceRange> </ observation> </component> </organizer> </entry> <entry> <organizer moodCode="EVN" classCode="BATTERY"> <templateId root= "16.840.1.859532.10.20.22.4.1" /> <id nullFlavor="NA" /> <code codeSystem="local" code="CRP" displayName="C REACTIVE PROTEIN" /> < statusCode code="completed" /> <component> <observation moodCode= "EVN" classCode="OBS"> <templateId root="216.840.1.293686.10.20.22.4.2 " /> <id nullFlavor="NA" /> <code codeSystem="local" code="CRP " displayName="C REACTIVE PROTEIN" /> <statusCode code="completed" /> <effectiveTime value="717673375781" /> <value unit="mg/L" xsi: type="PQ" value="50.8" /> <interpretationCode codeSystem="local" code= "*" /> <referenceRange> <observationRange> < text>< 8.0</text> </observationRange> </referenceRange> </observation> </component> </organizer> </entry> <entry> < organizer moodCode="EVN" classCode="BATTERY"> <templateId root= "2.16.840.1.510871.10.20.22.4.1" /> <id nullFlavor="NA" /> <code codeSystem="local" code="MRSAS" displayName="MRSA SURVEILLANCE SCREEN" /> < statusCode code="completed" /> <component> <observation moodCode= "EVN" classCode="OBS"> <templateId root="216.840.1.630509.10.20.22.4.2 " /> <id nullFlavor="NA" /> <code codeSystem="local" code="MB " displayName="Microbiology" /> <statusCode code="completed" /> <effectiveTime value="036559376959" /> <value xsi:type="ST" value="< pre><b>MRSA SURVEILLANCE SCREEN</b> See Below: PER PROTOCOLMRSA SURVEILLANCE SCREEN(F) Papo Date/Time: 10/14/2016 07:00 Dina Date/Time: 10/15/2016 07:41SOURCE: ANTERIOR NARESSPEC DESC: NNO [facility] [place] [address]</pre>" /> <referenceRange> <observationRange> <text /> </observationRange> </referenceRange> </observation> </component> </organizer> </entry> <entry> < organizer moodCode="EVN" classCode="BATTERY"> <templateId root= "2.16.840.1.319155.10..22.4.1" /> <id nullFlavor="NA" /> <code codeSystem="local" code="CBCD" displayName="CBC W/DIFF" /> <statusCode code ="completed" /> <component> <observation moodCode="EVN" classCode= "OBS"> <templateId root="2.16.840.1.235944.10...4.2" /> < id nullFlavor="NA" /> <code codeSystem="local" code="EO#" displayName= "EOSINOPHIL #" /> <statusCode code="completed" /> < effectiveTime value="" /> <value unit="k/cumm" xsi:type="PQ " value="0.5" /> <referenceRange> <observationRange> <text>0.1-0.5</text> </observationRange> </ referenceRange> </observation> </component> <component> <observation moodCode="EVN" classCode="OBS"> <templateId root= "216.840.1.887563.10..22.4.2" /> <id nullFlavor="NA" /> < code codeSystem="local" code="EO%" displayName="EOSINOPHIL %" /> <statusCode code="completed" /> <effectiveTime value="" /> <value unit="%" xsi:type="PQ" value="8" /> < interpretationCode codeSystem="local" code="*" /> <referenceRange> <observationRange> <text>2-4</text> </ observationRange> </referenceRange> </observation> </ component> <component> <observation moodCode="EVN" classCode="OBS"> <templateId root="216.840.1.064262.10..4.2" /> <id nullFlavor="NA" /> <code codeSystem="local" code="GR#" displayName= "GRANULOCYTE #" /> <statusCode code="completed" /> < effectiveTime value="909060501747" /> <value unit="k/cumm" xsi:type="PQ " value="3.0" /> <referenceRange> <observationRange> <text>2.0-9.0</text> </observationRange> </ referenceRange> </observation> </component> <component> <observation moodCode="EVN" classCode="OBS"> <templateId root= "16.840.1.026883.11.29.21.4.2" /> <id nullFlavor="NA" /> < code codeSystem="local" code="GR%" displayName="GRANULOCYTE %" /> <statusCode code="completed" /> <effectiveTime value="503103464423 " /> <value unit="%" xsi:type="PQ" value="50" /> < referenceRange> <observationRange> <text>50-75</text> </observationRange> </referenceRange> </observation> </component> <component> <observation moodCode="EVN" classCode= "OBS"> <templateId root="216.840.1.780475.11.29.214.2" /> < id nullFlavor="NA" /> <code codeSystem="local" code="LY#" displayName= "LYMPHOCYTE #" /> <statusCode code="completed" /> < effectiveTime value="" /> <value unit="k/cumm" xsi:type="PQ " value="2.0" /> <referenceRange> <observationRange> <text>1.0-4.0</text> </observationRange> </ referenceRange> </observation> </component> <component> <observation moodCode="EVN" classCode="OBS"> <templateId root= "2.16.840.1.426302.104.2" /> <id nullFlavor="NA" /> < code codeSystem="local" code="LY%" displayName="LYMPHOCYTE %" /> <statusCode code="completed" /> <effectiveTime value="" /> <value unit="%" xsi:type="PQ" value="34" /> < interpretationCode codeSystem="local" code="*" /> <referenceRange> <observationRange> <text>20-30</text> </ observationRange> </referenceRange> </observation> </ component> <component> <observation moodCode="EVN" classCode="OBS"> <templateId root="216.840.1.602704.10.4.2" /> <id nullFlavor="NA" /> <code codeSystem="local" code="MCH" displayName= "MEAN CELL HGB" /> <statusCode code="completed" /> < effectiveTime value="" /> <value unit="pg" xsi:type="PQ" value="28.2" /> <referenceRange> <observationRange> <text>27.0-33.0</text> </observationRange> </ referenceRange> </observation> </component> <component> <observation moodCode="EVN" classCode="OBS"> <templateId root= "16.840.1.655758.10.2022.4.2" /> <id nullFlavor="NA" /> < code codeSystem="local" code="MCHC" displayName="MEAN CELL HGB CONCENTRATION" / > <statusCode code="completed" /> <effectiveTime value= "" /> <value unit="g/dL" xsi:type="PQ" value="30.9" /> <interpretationCode codeSystem="local" code="*" /> < referenceRange> <observationRange> <text>32.0-37.0</text > </observationRange> </referenceRange> </observation > </component> <component> <observation moodCode="EVN" classCode="OBS"> <templateId root="03.28.840.1.539612.11.29.21.4.2" /> <id nullFlavor="NA" /> <code codeSystem="local" code="MCV" displayName="MEAN CELL VOLUME" /> <statusCode code="completed" /> <effectiveTime value="" /> <value unit="fl" xsi:type= "PQ" value="91.4" /> <referenceRange> <observationRange> <text>80.0-100.0</text> </observationRange> </ referenceRange> </observation> </component> <component> <observation moodCode="EVN" classCode="OBS"> <templateId root= "03.28.840.1.989819.1022.4.2" /> <id nullFlavor="NA" /> < code codeSystem="local" code="MO#" displayName="MONOCYTE #" /> < statusCode code="completed" /> <effectiveTime value="" /> <value unit="k/cumm" xsi:type="PQ" value="0.4" /> < referenceRange> <observationRange> <text>0.1-1.0</text> </observationRange> </referenceRange> </observation > </component> <component> <observation moodCode="EVN" classCode="OBS"> <templateId root="03.28.840.1.531572.22.4.2" /> <id nullFlavor="NA" /> <code codeSystem="local" code="MO% " displayName="MONOCYTE %" /> <statusCode code="completed" /> <effectiveTime value="155259143002" /> <value unit="%" xsi: type="PQ" value="7" /> <interpretationCode codeSystem="local" code="*" /> <referenceRange> <observationRange> <text>4- 6</text> </observationRange> </referenceRange> </ observation> </component> <component> <observation moodCode= "EVN" classCode="OBS"> <templateId root="03.28.840.1.751872.11.29.21.4.2 " /> <id nullFlavor="NA" /> <code codeSystem="local" code= "MPVT" displayName="MEAN PLATELET VOLUME" /> <statusCode code= "completed" /> <effectiveTime value="689999196633" /> <value unit="fl" xsi:type="PQ" value="9.4" /> <referenceRange> < observationRange> <text>8.5-10.9</text> </ observationRange> </referenceRange> </observation> </ component> <component> <observation moodCode="EVN" classCode="OBS"> <templateId root="03.28.840.1.427596.11.29.21.4.2" /> <id nullFlavor="NA" /> <code codeSystem="local" code="RBC" displayName=" RED BLOOD CELL" /> <statusCode code="completed" /> < effectiveTime value="" /> <value unit="m/cumm" xsi:type="PQ " value="3.83" /> <interpretationCode codeSystem="local" code="*" /> <referenceRange> <observationRange> <text>4.00- 6.00</text> </observationRange> </referenceRange> </ observation> </component> <component> <observation moodCode= "EVN" classCode="OBS"> <templateId root="16.840.1.183109.10..4.2 " /> <id nullFlavor="NA" /> <code codeSystem="local" code="RDW " displayName="RED CELL DISTRIBUTION WIDTH" /> <statusCode code= "completed" /> <effectiveTime value="" /> <value unit="%" xsi:type="PQ" value="15.8" /> <interpretationCode codeSystem="local" code="*" /> <referenceRange> < observationRange> <text>11.0-15.6</text> </ observationRange> </referenceRange> </observation> </ component> <component> <observation moodCode="EVN" classCode="OBS"> <templateId root="16.840.1.018467.10..22.4.2" /> <id nullFlavor="NA" /> <code codeSystem="local" code="WBC" displayName= "WHITE BLOOD CELL" /> <statusCode code="completed" /> < effectiveTime value="" /> <value unit="k/cumm" xsi:type="PQ " value="5.9" /> <referenceRange> <observationRange> <text>5.0-10.0</text> </observationRange> </ referenceRange> </observation> </component> <component> <observation moodCode="EVN" classCode="OBS"> <templateId root= "216.840.1.519775.10.20.22.4.2" /> <id nullFlavor="NA" /> < code codeSystem="local" code="HGBT" displayName="HEMOGLOBIN" /> < statusCode code="completed" /> <effectiveTime value="894621829207" /> <value unit="gm/dL" xsi:type="PQ" value="10.8" /> < interpretationCode codeSystem="local" code="*" /> <referenceRange> <observationRange> <text>12.0-16.0</text> </ observationRange> </referenceRange> </observation> </ component> <component> <observation moodCode="EVN" classCode="OBS"> <templateId root="03.28.840.1.725309.10..22.4.2" /> <id nullFlavor="NA" /> <code codeSystem="local" code="HCTT" displayName= "HEMATOCRIT" /> <statusCode code="completed" /> < effectiveTime value="587546490789" /> <value unit="%" xsi:type="PQ " value="35.0" /> <interpretationCode codeSystem="local" code="*" /> <referenceRange> <observationRange> <text>37.0- 47.0</text> </observationRange> </referenceRange> </ observation> </component> <component> <observation moodCode= "EVN" classCode="OBS"> <templateId root="16.840.1.250616.10.20.22.4.2 " /> <id nullFlavor="NA" /> <code codeSystem="local" code= "PLTT" displayName="PLATELET COUNT" /> <statusCode code="completed" /> <effectiveTime value="159151822638" /> <value unit="k/cumm" xsi:type="PQ" value="265" /> <referenceRange> < observationRange> <text>150-400</text> </ observationRange> </referenceRange> </observation> </ component> </organizer> </entry> <entry> <organizer moodCode="EVN" classCode="BATTERY"> <templateId root="16.840.1.439979.10..22.4.1" /> <id nullFlavor="NA" /> <code codeSystem="local" code="RENAL" displayName="RENAL FUNCTION PANEL" /> <statusCode code="completed" /> <component> <observation moodCode="EVN" classCode="OBS"> < templateId root="16.840.1.187794.10..22.4.2" /> <id nullFlavor="NA " /> <code codeSystem="local" code="K" displayName="POTASSIUM" /> <statusCode code="completed" /> <effectiveTime value="653354888924 " /> <value unit="mmol/L" xsi:type="PQ" value="3.4" /> < interpretationCode codeSystem="local" code="*" /> <referenceRange> <observationRange> <text>3.5-5.3</text> </ observationRange> </referenceRange> </observation> </ component> <component> <observation moodCode="EVN" classCode="OBS"> <templateId root="03.28.840.1.766063.10..22.4.2" /> <id nullFlavor="NA" /> <code codeSystem="local" code="eGFR" displayName= "EST GFR (MDRD)" /> <statusCode code="completed" /> < effectiveTime value="419771389498" /> <value unit="mL/min" xsi:type="PQ " value="> 60" /> <referenceRange> <observationRange> <text>> 59</text> </observationRange> </ referenceRange> </observation> </component> <component> <observation moodCode="EVN" classCode="OBS"> <templateId root= "16.840.1.802133.10...4.2" /> <id nullFlavor="NA" /> < code codeSystem="local" code="GAP" displayName="ANION GAP" /> < statusCode code="completed" /> <effectiveTime value="148847092046" /> <value unit="mmol/L" xsi:type="PQ" value="7" /> < referenceRange> <observationRange> <text>5-15</text> </observationRange> </referenceRange> </observation> </component> <component> <observation moodCode="EVN" classCode= "OBS"> <templateId root="16.840.1.774887.10...4.2" /> < id nullFlavor="NA" /> <code codeSystem="local" code="eCrCl" displayName ="EST CrCl (CG)" /> <statusCode code="completed" /> < effectiveTime value="[id number]" /> <value unit="mL/min" xsi:type="PQ " value="> 60" /> <referenceRange> <observationRange> <text>> 59</text> </observationRange> </ referenceRange> </observation> </component> <component> <observation moodCode="EVN" classCode="OBS"> <templateId root= "16.840.1.270405.11.29.22.4.2" /> <id nullFlavor="NA" /> < code codeSystem="local" code="GLU" displayName="GLUCOSE" /> < statusCode code="completed" /> <effectiveTime value="609074157975" /> <value unit="mg/dL" xsi:type="PQ" value="84" /> < referenceRange> <observationRange> <text>70-99</text> </observationRange> </referenceRange> </observation> </component> <component> <observation moodCode="EVN" classCode= "OBS"> <templateId root="216.840.1.485040.11.29.21.4.2" /> < id nullFlavor="NA" /> <code codeSystem="local" code="CA" displayName= "CALCIUM" /> <statusCode code="completed" /> <effectiveTime value="719421843865" /> <value unit="mg/dL" xsi:type="PQ" value="8.9" / > <referenceRange> <observationRange> <text>8.5 -10.1</text> </observationRange> </referenceRange> </ observation> </component> <component> <observation moodCode= "EVN" classCode="OBS"> <templateId root="16.840.1.398074...22.4.2 " /> <id nullFlavor="NA" /> <code codeSystem="local" code="BUN " displayName="BLOOD UREA NITROGEN" /> <statusCode code="completed" /> <effectiveTime value="940734304219" /> <value unit="mg/dL" xsi:type="PQ" value="7" /> <referenceRange> < observationRange> <text>7-20</text> </observationRange> </referenceRange> </observation> </component> < component> <observation moodCode="EVN" classCode="OBS"> < templateId root="216.840.1.134378.10..22.4.2" /> <id nullFlavor="NA " /> <code codeSystem="local" code="CREAT" displayName="CREATININE" /> <statusCode code="completed" /> <effectiveTime value= "683846215120" /> <value unit="mg/dL" xsi:type="PQ" value="0.4" /> <interpretationCode codeSystem="local" code="*" /> < referenceRange> <observationRange> <text>0.6-1.0</text> </observationRange> </referenceRange> </observation > </component> <component> <observation moodCode="EVN" classCode="OBS"> <templateId root="216.840.1.156328.11.29.21.4.2" /> <id nullFlavor="NA" /> <code codeSystem="local" code="NA" displayName="SODIUM" /> <statusCode code="completed" /> < effectiveTime value="275833605563" /> <value unit="mmol/L" xsi:type="PQ " value="140" /> <referenceRange> <observationRange> <text>135-148</text> </observationRange> </ referenceRange> </observation> </component> <component> <observation moodCode="EVN" classCode="OBS"> <templateId root= "216.840.1.690908.10..22.4.2" /> <id nullFlavor="NA" /> < code codeSystem="local" code="CL" displayName="CHLORIDE" /> < statusCode code="completed" /> <effectiveTime value="344073192095" /> <value unit="mmol/L" xsi:type="PQ" value="101" /> < referenceRange> <observationRange> <text>98-110</text> </observationRange> </referenceRange> </observation> </component> <component> <observation moodCode="EVN" classCode ="OBS"> <templateId root="03.28.840.1.938954.10.20.22.4.2" /> < id nullFlavor="NA" /> <code codeSystem="local" code="CO2" displayName= "CARBON DIOXIDE" /> <statusCode code="completed" /> < effectiveTime value="025159289412" /> <value unit="mmol/L" xsi:type="PQ " value="32" /> <referenceRange> <observationRange> <text>21-32</text> </observationRange> </ referenceRange> </observation> </component> <component> <observation moodCode="EVN" classCode="OBS"> <templateId root= "03.28.840.1.292550.10..4.2" /> <id nullFlavor="NA" /> < code codeSystem="local" code="ALB" displayName="ALBUMIN" /> < statusCode code="completed" /> <effectiveTime value="030791445171" /> <value unit="gm/dL" xsi:type="PQ" value="2.4" /> < interpretationCode codeSystem="local" code="*" /> <referenceRange> <observationRange> <text>3.4-5.0</text> </ observationRange> </referenceRange> </observation> </ component> <component> <observation moodCode="EVN" classCode="OBS"> <templateId root="03.28.840.1.580237.10.20.22.4.2" /> <id nullFlavor="NA" /> <code codeSystem="local" code="PHOS" displayName= "PHOSPHORUS" /> <statusCode code="completed" /> < effectiveTime value="902366656305" /> <value unit="mg/dL" xsi:type="PQ " value="3.2" /> <referenceRange> <observationRange> <text>2.5-4.9</text> </observationRange> </ referenceRange> </observation> </component> </organizer> </entry > <entry> <organizer moodCode="EVN" classCode="BATTERY"> <templateId root="216.840.1.807322.10..22.4.1" /> <id nullFlavor="NA" /> <code codeSystem="local" code="MAG" displayName="MAGNESIUM" /> <statusCode code= "completed" /> <component> <observation moodCode="EVN" classCode= "OBS"> <templateId root="216.840.1.649904.10..22.4.2" /> < id nullFlavor="NA" /> <code codeSystem="local" code="MAG" displayName= "MAGNESIUM" /> <statusCode code="completed" /> <effectiveTime value="059582902371" /> <value unit="mg/dL" xsi:type="PQ" value="2.0" / > <referenceRange> <observationRange> <text>1.8 -2.4</text> </observationRange> </referenceRange> </ observation> </component> </organizer> </entry> <entry> <organizer moodCode="EVN" classCode="BATTERY"> <templateId root= "216.840.1.794791.10.20.22.4.1" /> <id nullFlavor="NA" /> <code codeSystem="local" code="PT" displayName="PROTHROMBIN TIME WITH INR" /> < statusCode code="completed" /> <component> <observation moodCode= "EVN" classCode="OBS"> <templateId root="16.840.1.255410.10..4.2 " /> <id nullFlavor="NA" /> <code codeSystem="local" code= "INRX" displayName="INTERNATIONAL NORMAL RATIO" /> <statusCode code= "completed" /> <effectiveTime value="020322202830" /> <value unit="" xsi:type="PQ" value="2.9" /> <interpretationCode codeSystem= "local" code="*" /> <referenceRange> <observationRange> <text>0.9-1.1</text> </observationRange> </ referenceRange> </observation> </component> <component> <observation moodCode="EVN" classCode="OBS"> <templateId root= "16.840.1.203327.11.29.21.4.2" /> <id nullFlavor="NA" /> < code codeSystem="local" code="PTPAT" displayName="PROTHROMBIN TIME" /> <statusCode code="completed" /> <effectiveTime value="187625137816" /> <value unit="sec" xsi:type="PQ" value="33.4" /> < interpretationCode codeSystem="local" code="*" /> <referenceRange> <observationRange> <text>10.0-12.8</text> </ observationRange> </referenceRange> </observation> </ component> </organizer> </entry> <entry> <organizer moodCode="EVN" classCode="BATTERY"> <templateId root="16.840.1.260665.1022.4.1" /> <id nullFlavor="NA" /> <code codeSystem="local" code="PT" displayName= "PROTHROMBIN TIME WITH INR" /> <statusCode code="completed" /> < component> <observation moodCode="EVN" classCode="OBS"> < templateId root="216.840.1.868999.10..22.4.2" /> <id nullFlavor="NA " /> <code codeSystem="local" code="INRX" displayName="INTERNATIONAL NORMAL RATIO" /> <statusCode code="completed" /> < effectiveTime value="" /> <value unit="" xsi:type="PQ" value="3.0" /> <interpretationCode codeSystem="local" code="*" /> <referenceRange> <observationRange> <text>0.9-1.1</ text> </observationRange> </referenceRange> </ observation> </component> <component> <observation moodCode= "EVN" classCode="OBS"> <templateId root="216.840.1.510064.11.29.214.2 " /> <id nullFlavor="NA" /> <code codeSystem="local" code= "PTPAT" displayName="PROTHROMBIN TIME" /> <statusCode code="completed" /> <effectiveTime value="" /> <value unit="sec" xsi:type="PQ" value="34.9" /> <interpretationCode codeSystem="local" code="*" /> <referenceRange> <observationRange> <text>10.0-12.8</text> </observationRange> </ referenceRange> </observation> </component> </organizer> </entry > <entry> <organizer moodCode="EVN" classCode="BATTERY"> <templateId root="216.840.1.316468.22.4.1" /> <id nullFlavor="NA" /> <code codeSystem="local" code="RENAL" displayName="RENAL FUNCTION PANEL" /> < statusCode code="completed" /> <component> <observation moodCode= "EVN" classCode="OBS"> <templateId root="16.840.1.606189.10..4.2 " /> <id nullFlavor="NA" /> <code codeSystem="local" code="K" displayName="POTASSIUM" /> <statusCode code="completed" /> < effectiveTime value="" /> <value unit="mmol/L" xsi:type="PQ " value="3.7" /> <referenceRange> <observationRange> <text>3.5-5.3</text> </observationRange> </ referenceRange> </observation> </component> <component> <observation moodCode="EVN" classCode="OBS"> <templateId root= "03.28.840.1.173420.11.29.21.4.2" /> <id nullFlavor="NA" /> < code codeSystem="local" code="eGFR" displayName="EST GFR (MDRD)" /> < statusCode code="completed" /> <effectiveTime value="" /> <value unit="mL/min" xsi:type="PQ" value="> 60" /> < referenceRange> <observationRange> <text>> 59</text> </observationRange> </referenceRange> </observation > </component> <component> <observation moodCode="EVN" classCode="OBS"> <templateId root="03.28.840.1.961045.10..4.2" /> <id nullFlavor="NA" /> <code codeSystem="local" code="GAP" displayName="ANION GAP" /> <statusCode code="completed" /> < effectiveTime value="" /> <value unit="mmol/L" xsi:type="PQ " value="14" /> <referenceRange> <observationRange> <text>5-15</text> </observationRange> </referenceRange > </observation> </component> <component> <observation moodCode="EVN" classCode="OBS"> <templateId root= "2.840.1.661659.10..4.2" /> <id nullFlavor="NA" /> < code codeSystem="local" code="eCrCl" displayName="EST CrCl (CG)" /> < statusCode code="completed" /> <effectiveTime value="" /> <value unit="mL/min" xsi:type="PQ" value="> 60" /> < referenceRange> <observationRange> <text>> 59</text> </observationRange> </referenceRange> </observation > </component> <component> <observation moodCode="EVN" classCode="OBS"> <templateId root="03.28.840.1.141081.11.29.21.4.2" /> <id nullFlavor="NA" /> <code codeSystem="local" code="GLU" displayName="GLUCOSE" /> <statusCode code="completed" /> < effectiveTime value="" /> <value unit="mg/dL" xsi:type="PQ " value="84" /> <referenceRange> <observationRange> <text>70-99</text> </observationRange> </ referenceRange> </observation> </component> <component> <observation moodCode="EVN" classCode="OBS"> <templateId root= "03.28.840.1.481700...4.2" /> <id nullFlavor="NA" /> < code codeSystem="local" code="CA" displayName="CALCIUM" /> <statusCode code="completed" /> <effectiveTime value="" /> < value unit="mg/dL" xsi:type="PQ" value="9.1" /> <referenceRange> <observationRange> <text>8.5-10.1</text> </ observationRange> </referenceRange> </observation> </ component> <component> <observation moodCode="EVN" classCode="OBS"> <templateId root="216.840.1.375796.10..22.4.2" /> <id nullFlavor="NA" /> <code codeSystem="local" code="BUN" displayName= "BLOOD UREA NITROGEN" /> <statusCode code="completed" /> < effectiveTime value="569450073777" /> <value unit="mg/dL" xsi:type="PQ " value="9" /> <referenceRange> <observationRange> <text>7-20</text> </observationRange> </referenceRange > </observation> </component> <component> <observation moodCode="EVN" classCode="OBS"> <templateId root= "16.840.1.402752.10...4.2" /> <id nullFlavor="NA" /> < code codeSystem="local" code="CREAT" displayName="CREATININE" /> < statusCode code="completed" /> <effectiveTime value="033397909175" /> <value unit="mg/dL" xsi:type="PQ" value="0.5" /> < interpretationCode codeSystem="local" code="*" /> <referenceRange> <observationRange> <text>0.6-1.0</text> </ observationRange> </referenceRange> </observation> </ component> <component> <observation moodCode="EVN" classCode="OBS"> <templateId root="16.840.1.868842.10..22.4.2" /> <id nullFlavor="NA" /> <code codeSystem="local" code="NA" displayName= "SODIUM" /> <statusCode code="completed" /> <effectiveTime value="" /> <value unit="mmol/L" xsi:type="PQ" value="140" /> <referenceRange> <observationRange> <text> 135-148</text> </observationRange> </referenceRange> </observation> </component> <component> <observation moodCode= "EVN" classCode="OBS"> <templateId root="216.840.1.050456.10..22.4.2 " /> <id nullFlavor="NA" /> <code codeSystem="local" code="CL " displayName="CHLORIDE" /> <statusCode code="completed" /> < effectiveTime value="" /> <value unit="mmol/L" xsi:type="PQ " value="101" /> <referenceRange> <observationRange> <text>98-110</text> </observationRange> </ referenceRange> </observation> </component> <component> <observation moodCode="EVN" classCode="OBS"> <templateId root= "216.840.1.227424.10.20.22.4.2" /> <id nullFlavor="NA" /> < code codeSystem="local" code="CO2" displayName="CARBON DIOXIDE" /> < statusCode code="completed" /> <effectiveTime value="246691540995" /> <value unit="mmol/L" xsi:type="PQ" value="25" /> < referenceRange> <observationRange> <text>21-32</text> </observationRange> </referenceRange> </observation> </component> <component> <observation moodCode="EVN" classCode= "OBS"> <templateId root="2840.1.627723.11.29.21.4.2" /> < id nullFlavor="NA" /> <code codeSystem="local" code="ALB" displayName= "ALBUMIN" /> <statusCode code="completed" /> <effectiveTime value="" /> <value unit="gm/dL" xsi:type="PQ" value="2.5" / > <interpretationCode codeSystem="local" code="*" /> < referenceRange> <observationRange> <text>3.4-5.0</text> </observationRange> </referenceRange> </observation > </component> <component> <observation moodCode="EVN" classCode="OBS"> <templateId root="840.1.930531.11.29.21.4.2" /> <id nullFlavor="NA" /> <code codeSystem="local" code="PHOS" displayName="PHOSPHORUS" /> <statusCode code="completed" /> < effectiveTime value="" /> <value unit="mg/dL" xsi:type="PQ " value="3.1" /> <referenceRange> <observationRange> <text>2.5-4.9</text> </observationRange> </ referenceRange> </observation> </component> </organizer> </entry > <entry> <organizer moodCode="EVN" classCode="BATTERY"> <templateId root="840.1.304181.11.29.21.4.1" /> <id nullFlavor="NA" /> <code codeSystem="local" code="CBCD" displayName="CBC W/DIFF" /> <statusCode code ="completed" /> <component> <observation moodCode="EVN" classCode= "OBS"> <templateId root="840.1.861878.11.29.21.4.2" /> < id nullFlavor="NA" /> <code codeSystem="local" code="EO#" displayName= "EOSINOPHIL #" /> <statusCode code="completed" /> < effectiveTime value="" /> <value unit="k/cumm" xsi:type="PQ " value="0.4" /> <referenceRange> <observationRange> <text>0.1-0.5</text> </observationRange> </ referenceRange> </observation> </component> <component> <observation moodCode="EVN" classCode="OBS"> <templateId root= "216.840.1.236830.11.29.214.2" /> <id nullFlavor="NA" /> < code codeSystem="local" code="EO%" displayName="EOSINOPHIL %" /> <statusCode code="completed" /> <effectiveTime value="" /> <value unit="%" xsi:type="PQ" value="7" /> < interpretationCode codeSystem="local" code="*" /> <referenceRange> <observationRange> <text>2-4</text> </ observationRange> </referenceRange> </observation> </ component> <component> <observation moodCode="EVN" classCode="OBS"> <templateId root="16.840.1.641985.11.29.21.4.2" /> <id nullFlavor="NA" /> <code codeSystem="local" code="GR#" displayName= "GRANULOCYTE #" /> <statusCode code="completed" /> < effectiveTime value="" /> <value unit="k/cumm" xsi:type="PQ " value="3.2" /> <referenceRange> <observationRange> <text>2.0-9.0</text> </observationRange> </ referenceRange> </observation> </component> <component> <observation moodCode="EVN" classCode="OBS"> <templateId root= "216.840.1.277843.10.4.2" /> <id nullFlavor="NA" /> < code codeSystem="local" code="GR%" displayName="GRANULOCYTE %" /> <statusCode code="completed" /> <effectiveTime value=" " /> <value unit="%" xsi:type="PQ" value="51" /> < referenceRange> <observationRange> <text>50-75</text> </observationRange> </referenceRange> </observation> </component> <component> <observation moodCode="EVN" classCode= "OBS"> <templateId root="216.840.1.704503.11.29.21.4.2" /> < id nullFlavor="NA" /> <code codeSystem="local" code="LY#" displayName= "LYMPHOCYTE #" /> <statusCode code="completed" /> < effectiveTime value="" /> <value unit="k/cumm" xsi:type="PQ " value="2.2" /> <referenceRange> <observationRange> <text>1.0-4.0</text> </observationRange> </ referenceRange> </observation> </component> <component> <observation moodCode="EVN" classCode="OBS"> <templateId root= "216.840.1.656312.22.4.2" /> <id nullFlavor="NA" /> < code codeSystem="local" code="LY%" displayName="LYMPHOCYTE %" /> <statusCode code="completed" /> <effectiveTime value="" /> <value unit="%" xsi:type="PQ" value="35" /> < interpretationCode codeSystem="local" code="*" /> <referenceRange> <observationRange> <text>20-30</text> </ observationRange> </referenceRange> </observation> </ component> <component> <observation moodCode="EVN" classCode="OBS"> <templateId root="216.840.1.698105.10.22.4.2" /> <id nullFlavor="NA" /> <code codeSystem="local" code="MCH" displayName= "MEAN CELL HGB" /> <statusCode code="completed" /> < effectiveTime value="" /> <value unit="pg" xsi:type="PQ" value="28.0" /> <referenceRange> <observationRange> <text>27.0-33.0</text> </observationRange> </ referenceRange> </observation> </component> <component> <observation moodCode="EVN" classCode="OBS"> <templateId root= "216.840.1.764902.10.4.2" /> <id nullFlavor="NA" /> < code codeSystem="local" code="MCHC" displayName="MEAN CELL HGB CONCENTRATION" / > <statusCode code="completed" /> <effectiveTime value= "" /> <value unit="g/dL" xsi:type="PQ" value="30.9" /> <interpretationCode codeSystem="local" code="*" /> < referenceRange> <observationRange> <text>32.0-37.0</text > </observationRange> </referenceRange> </observation > </component> <component> <observation moodCode="EVN" classCode="OBS"> <templateId root="216.840.1.236176.11.29.21.4.2" /> <id nullFlavor="NA" /> <code codeSystem="local" code="MCV" displayName="MEAN CELL VOLUME" /> <statusCode code="completed" /> <effectiveTime value="" /> <value unit="fl" xsi:type= "PQ" value="90.5" /> <referenceRange> <observationRange> <text>80.0-100.0</text> </observationRange> </ referenceRange> </observation> </component> <component> <observation moodCode="EVN" classCode="OBS"> <templateId root= "216.840.1.363987.11.29.21.4.2" /> <id nullFlavor="NA" /> < code codeSystem="local" code="MO#" displayName="MONOCYTE #" /> < statusCode code="completed" /> <effectiveTime value="" /> <value unit="k/cumm" xsi:type="PQ" value="0.5" /> < referenceRange> <observationRange> <text>0.1-1.0</text> </observationRange> </referenceRange> </observation > </component> <component> <observation moodCode="EVN" classCode="OBS"> <templateId root="216.840.1.027442.22.4.2" /> <id nullFlavor="NA" /> <code codeSystem="local" code="MO% " displayName="MONOCYTE %" /> <statusCode code="completed" /> <effectiveTime value="" /> <value unit="%" xsi: type="PQ" value="7" /> <interpretationCode codeSystem="local" code="*" /> <referenceRange> <observationRange> <text>4- 6</text> </observationRange> </referenceRange> </ observation> </component> <component> <observation moodCode= "EVN" classCode="OBS"> <templateId root="216.840.1.364495.1022.4.2 " /> <id nullFlavor="NA" /> <code codeSystem="local" code= "MPVT" displayName="MEAN PLATELET VOLUME" /> <statusCode code= "completed" /> <effectiveTime value="" /> <value unit="fl" xsi:type="PQ" value="9.4" /> <referenceRange> < observationRange> <text>8.5-10.9</text> </ observationRange> </referenceRange> </observation> </ component> <component> <observation moodCode="EVN" classCode="OBS"> <templateId root="16.840.1.861446.11.29.21.4.2" /> <id nullFlavor="NA" /> <code codeSystem="local" code="RBC" displayName=" RED BLOOD CELL" /> <statusCode code="completed" /> < effectiveTime value="" /> <value unit="m/cumm" xsi:type="PQ " value="3.68" /> <interpretationCode codeSystem="local" code="*" /> <referenceRange> <observationRange> <text>4.00- 6.00</text> </observationRange> </referenceRange> </ observation> </component> <component> <observation moodCode= "EVN" classCode="OBS"> <templateId root="16.840.1.609534.11.29.21.4.2 " /> <id nullFlavor="NA" /> <code codeSystem="local" code="RDW " displayName="RED CELL DISTRIBUTION WIDTH" /> <statusCode code= "completed" /> <effectiveTime value="" /> <value unit="%" xsi:type="PQ" value="15.9" /> <interpretationCode codeSystem="local" code="*" /> <referenceRange> < observationRange> <text>11.0-15.6</text> </ observationRange> </referenceRange> </observation> </ component> <component> <observation moodCode="EVN" classCode="OBS"> <templateId root="216.840.1.026289.10.20.22.4.2" /> <id nullFlavor="NA" /> <code codeSystem="local" code="WBC" displayName= "WHITE BLOOD CELL" /> <statusCode code="completed" /> < effectiveTime value="" /> <value unit="k/cumm" xsi:type="PQ " value="6.2" /> <referenceRange> <observationRange> <text>5.0-10.0</text> </observationRange> </ referenceRange> </observation> </component> <component> <observation moodCode="EVN" classCode="OBS"> <templateId root= "216.840.1.058855.10.20.22.4.2" /> <id nullFlavor="NA" /> < code codeSystem="local" code="HGBT" displayName="HEMOGLOBIN" /> < statusCode code="completed" /> <effectiveTime value="" /> <value unit="gm/dL" xsi:type="PQ" value="10.3" /> < interpretationCode codeSystem="local" code="*" /> <referenceRange> <observationRange> <text>12.0-16.0</text> </ observationRange> </referenceRange> </observation> </ component> <component> <observation moodCode="EVN" classCode="OBS"> <templateId root="16.840.1.585601.10.22.4.2" /> <id nullFlavor="NA" /> <code codeSystem="local" code="HCTT" displayName= "HEMATOCRIT" /> <statusCode code="completed" /> < effectiveTime value="" /> <value unit="%" xsi:type="PQ " value="33.3" /> <interpretationCode codeSystem="local" code="*" /> <referenceRange> <observationRange> <text>37.0- 47.0</text> </observationRange> </referenceRange> </ observation> </component> <component> <observation moodCode= "EVN" classCode="OBS"> <templateId root="03.28.840.1.320577.11.29.21.4.2 " /> <id nullFlavor="NA" /> <code codeSystem="local" code= "PLTT" displayName="PLATELET COUNT" /> <statusCode code="completed" /> <effectiveTime value="" /> <value unit="k/cumm" xsi:type="PQ" value="301" /> <referenceRange> < observationRange> <text>150-400</text> </ observationRange> </referenceRange> </observation> </ component> </organizer> </entry> <entry> <organizer moodCode="EVN" classCode="BATTERY"> <templateId root="03.28.840.1.455526.10.20.22.4.1" /> <id nullFlavor="NA" /> <code codeSystem="local" code="PT" displayName= "PROTHROMBIN TIME WITH INR" /> <statusCode code="completed" /> < component> <observation moodCode="EVN" classCode="OBS"> < templateId root="03.28.840.1.013317.11.29.21.4.2" /> <id nullFlavor="NA " /> <code codeSystem="local" code="INRX" displayName="INTERNATIONAL NORMAL RATIO" /> <statusCode code="completed" /> < effectiveTime value="" /> <value unit="" xsi:type="PQ" value="2.8" /> <interpretationCode codeSystem="local" code="*" /> <referenceRange> <observationRange> <text>0.9-1.1</ text> </observationRange> </referenceRange> </ observation> </component> <component> <observation moodCode= "EVN" classCode="OBS"> <templateId root="03.28.840.1.268767.11.29.21.4.2 " /> <id nullFlavor="NA" /> <code codeSystem="local" code= "PTPAT" displayName="PROTHROMBIN TIME" /> <statusCode code="completed" /> <effectiveTime value="" /> <value unit="sec" xsi:type="PQ" value="31.7" /> <interpretationCode codeSystem="local" code="*" /> <referenceRange> <observationRange> <text>10.0-12.8</text> </observationRange> </ referenceRange> </observation> </component> </organizer> </entry > <entry> <organizer moodCode="EVN" classCode="BATTERY"> <templateId root="03.28.840.1.843020.1022.4.1" /> <id nullFlavor="NA" /> <code codeSystem="local" code="RENAL" displayName="RENAL FUNCTION PANEL" /> < statusCode code="completed" /> <component> <observation moodCode= "EVN" classCode="OBS"> <templateId root="03.28.840.1.347311.22.4.2 " /> <id nullFlavor="NA" /> <code codeSystem="local" code="K" displayName="POTASSIUM" /> <statusCode code="completed" /> < effectiveTime value="[id number]" /> <value unit="mmol/L" xsi:type="PQ " value="3.5" /> <referenceRange> <observationRange> <text>3.5-5.3</text> </observationRange> </ referenceRange> </observation> </component> <component> <observation moodCode="EVN" classCode="OBS"> <templateId root= "16.840.1.375546.11.29.21.4.2" /> <id nullFlavor="NA" /> < code codeSystem="local" code="eGFR" displayName="EST GFR (MDRD)" /> < statusCode code="completed" /> <effectiveTime value="487163212656" /> <value unit="mL/min" xsi:type="PQ" value="> 60" /> < referenceRange> <observationRange> <text>> 59</text> </observationRange> </referenceRange> </observation > </component> <component> <observation moodCode="EVN" classCode="OBS"> <templateId root="16.840.1.408723.11.29.21.4.2" /> <id nullFlavor="NA" /> <code codeSystem="local" code="GAP" displayName="ANION GAP" /> <statusCode code="completed" /> < effectiveTime value="046560893851" /> <value unit="mmol/L" xsi:type="PQ " value="8" /> <referenceRange> <observationRange> <text>5-15</text> </observationRange> </referenceRange > </observation> </component> <component> <observation moodCode="EVN" classCode="OBS"> <templateId root= "16.840.1.362475.10.4.2" /> <id nullFlavor="NA" /> < code codeSystem="local" code="eCrCl" displayName="EST CrCl (CG)" /> < statusCode code="completed" /> <effectiveTime value="" /> <value unit="mL/min" xsi:type="PQ" value="> 60" /> < referenceRange> <observationRange> <text>> 59</text> </observationRange> </referenceRange> </observation > </component> <component> <observation moodCode="EVN" classCode="OBS"> <templateId root="03.28.840.1.892344.11.29.21.4.2" /> <id nullFlavor="NA" /> <code codeSystem="local" code="GLU" displayName="GLUCOSE" /> <statusCode code="completed" /> < effectiveTime value="" /> <value unit="mg/dL" xsi:type="PQ " value="97" /> <referenceRange> <observationRange> <text>70-99</text> </observationRange> </ referenceRange> </observation> </component> <component> <observation moodCode="EVN" classCode="OBS"> <templateId root= "03.28.840.1.650537.10...4.2" /> <id nullFlavor="NA" /> < code codeSystem="local" code="CA" displayName="CALCIUM" /> <statusCode code="completed" /> <effectiveTime value="" /> < value unit="mg/dL" xsi:type="PQ" value="8.9" /> <referenceRange> <observationRange> <text>8.5-10.1</text> </ observationRange> </referenceRange> </observation> </ component> <component> <observation moodCode="EVN" classCode="OBS"> <templateId root="16.840.1.156299.10.20.22.4.2" /> <id nullFlavor="NA" /> <code codeSystem="local" code="BUN" displayName= "BLOOD UREA NITROGEN" /> <statusCode code="completed" /> < effectiveTime value="581342110353" /> <value unit="mg/dL" xsi:type="PQ " value="8" /> <referenceRange> <observationRange> <text>7-20</text> </observationRange> </referenceRange > </observation> </component> <component> <observation moodCode="EVN" classCode="OBS"> <templateId root= "03.28.840.1.995789.10..22.4.2" /> <id nullFlavor="NA" /> < code codeSystem="local" code="CREAT" displayName="CREATININE" /> < statusCode code="completed" /> <effectiveTime value="175011105402" /> <value unit="mg/dL" xsi:type="PQ" value="0.5" /> < interpretationCode codeSystem="local" code="*" /> <referenceRange> <observationRange> <text>0.6-1.0</text> </ observationRange> </referenceRange> </observation> </ component> <component> <observation moodCode="EVN" classCode="OBS"> <templateId root="03.28.840.1.132976.10.20.22.4.2" /> <id nullFlavor="NA" /> <code codeSystem="local" code="NA" displayName= "SODIUM" /> <statusCode code="completed" /> <effectiveTime value="" /> <value unit="mmol/L" xsi:type="PQ" value="141" /> <referenceRange> <observationRange> <text> 135-148</text> </observationRange> </referenceRange> </observation> </component> <component> <observation moodCode= "EVN" classCode="OBS"> <templateId root="16.840.1.167044.10.4.2 " /> <id nullFlavor="NA" /> <code codeSystem="local" code="CL " displayName="CHLORIDE" /> <statusCode code="completed" /> < effectiveTime value="" /> <value unit="mmol/L" xsi:type="PQ " value="102" /> <referenceRange> <observationRange> <text>98-110</text> </observationRange> </ referenceRange> </observation> </component> <component> <observation moodCode="EVN" classCode="OBS"> <templateId root= "03.28.840.1.314344.11.29.21.4.2" /> <id nullFlavor="NA" /> < code codeSystem="local" code="CO2" displayName="CARBON DIOXIDE" /> < statusCode code="completed" /> <effectiveTime value="608874910411" /> <value unit="mmol/L" xsi:type="PQ" value="31" /> < referenceRange> <observationRange> <text>21-32</text> </observationRange> </referenceRange> </observation> </component> <component> <observation moodCode="EVN" classCode= "OBS"> <templateId root="16.840.1.295976...4.2" /> < id nullFlavor="NA" /> <code codeSystem="local" code="ALB" displayName= "ALBUMIN" /> <statusCode code="completed" /> <effectiveTime value="" /> <value unit="gm/dL" xsi:type="PQ" value="2.4" / > <interpretationCode codeSystem="local" code="*" /> < referenceRange> <observationRange> <text>3.4-5.0</text> </observationRange> </referenceRange> </observation > </component> <component> <observation moodCode="EVN" classCode="OBS"> <templateId root="840.1.146554.11.29.21.4.2" /> <id nullFlavor="NA" /> <code codeSystem="local" code="PHOS" displayName="PHOSPHORUS" /> <statusCode code="completed" /> < effectiveTime value="" /> <value unit="mg/dL" xsi:type="PQ " value="3.1" /> <referenceRange> <observationRange> <text>2.5-4.9</text> </observationRange> </ referenceRange> </observation> </component> </organizer> </entry > <entry> <organizer moodCode="EVN" classCode="BATTERY"> <templateId root="840.1.957500.22.4.1" /> <id nullFlavor="NA" /> <code codeSystem="local" code="MAG" displayName="MAGNESIUM" /> <statusCode code= "completed" /> <component> <observation moodCode="EVN" classCode= "OBS"> <templateId root="03.28.840.1.401595.2022.4.2" /> < id nullFlavor="NA" /> <code codeSystem="local" code="MAG" displayName= "MAGNESIUM" /> <statusCode code="completed" /> <effectiveTime value="328073578654" /> <value unit="mg/dL" xsi:type="PQ" value="2.3" / > <referenceRange> <observationRange> <text>1.8 -2.4</text> </observationRange> </referenceRange> </ observation> </component> </organizer> </entry> <entry> <organizer moodCode="EVN" classCode="BATTERY"> <templateId root= "16.840.1.356823.10...4.1" /> <id nullFlavor="NA" /> <code codeSystem="local" code="AHZ5546" displayName="Protime " /> <statusCode code="completed" /> <component> <observation moodCode="EVN" classCode="OBS"> <templateId root="03.28.840.1.560849...4.2" /> <id nullFlavor="NA" /> <code codeSystem="local" code="Dda303" displayName="INR" /> <statusCode code="completed" /> < effectiveTime value="350636767349" /> <value unit="" xsi:type="PQ" value="1.9" /> <referenceRange> <observationRange> <text>1.0-4.0</text> </observationRange> </ referenceRange> </observation> </component> <component> <observation moodCode="EVN" classCode="OBS"> <templateId root= "03.28.840.1.508540...4.2" /> <id nullFlavor="NA" /> < code codeSystem="local" code="Zxm2785" displayName="Protime" /> < statusCode code="completed" /> <effectiveTime value="043401537201" /> <value unit="Sec" xsi:type="PQ" value="22.5" /> < interpretationCode codeSystem="local" code="H" /> <referenceRange> <observationRange> <text>9.9-12.8</text> </ observationRange> </referenceRange> </observation> </ component> </organizer> </entry> <entry> <organizer moodCode="EVN" classCode="BATTERY"> <templateId root="216.840.1.650702.10..22.4.1" /> <id nullFlavor="NA" /> <code codeSystem="local" code="ORD26" displayName="Iron" /> <statusCode code="completed" /> <component> <observation moodCode="EVN" classCode="OBS"> <templateId root= "216.840.1.033836.10...4.2" /> <id nullFlavor="NA" /> < code codeSystem="local" code="Res63" displayName="Iron" /> <statusCode code="completed" /> <effectiveTime value="602416583802" /> < value unit="ug/dL" xsi:type="PQ" value="40" /> <interpretationCode codeSystem="local" code="L" /> <referenceRange> < observationRange> <text>70-200</text> </observationRange > </referenceRange> </observation> </component> </ organizer> </entry> <entry> <organizer moodCode="EVN" classCode="BATTERY"> <templateId root="216.840.1.557169.10...4.1" /> <id nullFlavor= "NA" /> <code codeSystem="local" code="[id number]" displayName="Protime " /> <statusCode code="completed" /> <component> <observation moodCode="EVN" classCode="OBS"> <templateId root= "216.840.1.600592.10..4.2" /> <id nullFlavor="NA" /> < code codeSystem="local" code="Ffc542" displayName="INR" /> <statusCode code="completed" /> <effectiveTime value="408587947124" /> < value unit="" xsi:type="PQ" value="2.0" /> <referenceRange> <observationRange> <text>1.0-4.0</text> </ observationRange> </referenceRange> </observation> </ component> <component> <observation moodCode="EVN" classCode="OBS"> <templateId root="216.840.1.247358.10..4.2" /> <id nullFlavor="NA" /> <code codeSystem="local" code="Nag1723" displayName= "Protime" /> <statusCode code="completed" /> <effectiveTime value="453550241286" /> <value unit="Sec" xsi:type="PQ" value="23.3" / > <interpretationCode codeSystem="local" code="H" /> < referenceRange> <observationRange> <text>9.9-12.8</text > </observationRange> </referenceRange> </observation > </component> </organizer> </entry> <entry> <organizer moodCode= "EVN" classCode="BATTERY"> <templateId root="216.840.1.088893.10..4.1 " /> <id nullFlavor="NA" /> <code codeSystem="local" code="KCH7064" displayName="Protime " /> <statusCode code="completed" /> <component> <observation moodCode="EVN" classCode="OBS"> <templateId root= "03.28.840.1.012206.10.22.4.2" /> <id nullFlavor="NA" /> < code codeSystem="local" code="Umb390" displayName="INR" /> <statusCode code="completed" /> <effectiveTime value="646179510886" /> < value unit="" xsi:type="PQ" value="2.0" /> <referenceRange> <observationRange> <text>1.0-4.0</text> </ observationRange> </referenceRange> </observation> </ component> <component> <observation moodCode="EVN" classCode="OBS"> <templateId root="840.1.847980.1022.4.2" /> <id nullFlavor="NA" /> <code codeSystem="local" code="Ykk2578" displayName= "Protime" /> <statusCode code="completed" /> <effectiveTime value="448991464510" /> <value unit="Sec" xsi:type="PQ" value="23.4" / > <interpretationCode codeSystem="local" code="H" /> < referenceRange> <observationRange> <text>9.9-12.8</text > </observationRange> </referenceRange> </observation > </component> </organizer> </entry> <entry> <organizer moodCode= "EVN" classCode="BATTERY"> <templateId root="840.1.322241.10.2022.4.1 " /> <id nullFlavor="NA" /> <code codeSystem="local" code="XSK9524" displayName="Protime " /> <statusCode code="completed" /> <component> <observation moodCode="EVN" classCode="OBS"> <templateId root= "840.1.855839.10.22.4.2" /> <id nullFlavor="NA" /> < code codeSystem="local" code="Fpj443" displayName="INR" /> <statusCode code="completed" /> <effectiveTime value="" /> < value unit="" xsi:type="PQ" value="3.2" /> <referenceRange> <observationRange> <text>1.0-4.0</text> </ observationRange> </referenceRange> </observation> </ component> <component> <observation moodCode="EVN" classCode="OBS"> <templateId root="840.1.190861.11.29.21.4.2" /> <id nullFlavor="NA" /> <code codeSystem="local" code="Wom3106" displayName= "Protime" /> <statusCode code="completed" /> <effectiveTime value="" /> <value unit="Sec" xsi:type="PQ" value="37.2" / > <interpretationCode codeSystem="local" code="H" /> < referenceRange> <observationRange> <text>9.9-12.8</text > </observationRange> </referenceRange> </observation > </component> </organizer> </entry> <entry> <organizer moodCode= "EVN" classCode="BATTERY"> <templateId root="03.28.840.1.134527.1022.4.1 " /> <id nullFlavor="NA" /> <code codeSystem="local" code="INA3054" displayName="Protime " /> <statusCode code="completed" /> <component> <observation moodCode="EVN" classCode="OBS"> <templateId root= "840.1.879145.10.20.22.4.2" /> <id nullFlavor="NA" /> < code codeSystem="local" code="Cii258" displayName="INR" /> <statusCode code="completed" /> <effectiveTime value="399104416169" /> < value unit="" xsi:type="PQ" value="2.8" /> <referenceRange> <observationRange> <text>1.0-4.0</text> </ observationRange> </referenceRange> </observation> </ component> <component> <observation moodCode="EVN" classCode="OBS"> <templateId root="840.1.943535.11.29.214.2" /> <id nullFlavor="NA" /> <code codeSystem="local" code="Tbg5159" displayName= "Protime" /> <statusCode code="completed" /> <effectiveTime value="119110080492" /> <value unit="Sec" xsi:type="PQ" value="32.3" / > <interpretationCode codeSystem="local" code="H" /> < referenceRange> <observationRange> <text>9.9-12.8</text > </observationRange> </referenceRange> </observation > </component> </organizer> </entry> <entry> <organizer moodCode= "EVN" classCode="BATTERY"> <templateId root="840.1.304643.11.29.21.4.1 " /> <id nullFlavor="NA" /> <code codeSystem="local" code="BJZ2783" displayName="Protime " /> <statusCode code="completed" /> <component> <observation moodCode="EVN" classCode="OBS"> <templateId root= "840.1.155284.10.4.2" /> <id nullFlavor="NA" /> < code codeSystem="local" code="Imb011" displayName="INR" /> <statusCode code="completed" /> <effectiveTime value="506377554858" /> < value unit="" xsi:type="PQ" value="2.3" /> <referenceRange> <observationRange> <text>1.0-4.0</text> </ observationRange> </referenceRange> </observation> </ component> <component> <observation moodCode="EVN" classCode="OBS"> <templateId root="840.1.030582.10.22.4.2" /> <id nullFlavor="NA" /> <code codeSystem="local" code="Xvf3841" displayName= "Protime" /> <statusCode code="completed" /> <effectiveTime value="198768077217" /> <value unit="Sec" xsi:type="PQ" value="27.2" / > <interpretationCode codeSystem="local" code="H" /> < referenceRange> <observationRange> <text>9.9-12.8</text > </observationRange> </referenceRange> </observation > </component> </organizer> </entry> <entry> <organizer moodCode= "EVN" classCode="BATTERY"> <templateId root="840.1.700177.1022.4.1 " /> <id nullFlavor="NA" /> <code codeSystem="local" code="KVX5024" displayName="Blood Culture" /> <statusCode code="completed" /> < component> <observation moodCode="EVN" classCode="OBS"> < templateId root="03.28.840.1.174903.10.2022.4.2" /> <id nullFlavor="NA " /> <code codeSystem="local" code="Gms2162" displayName="PRELIM CULTURE RESULTS" /> <statusCode code="completed" /> < effectiveTime value="309079210363" /> <value unit="" xsi:type="PQ" value="Blood Culture Negative, No Growth Day 1" /> <referenceRange> <observationRange> <text /> </observationRange > </referenceRange> </observation> </component> < component> <observation moodCode="EVN" classCode="OBS"> < templateId root="216.840.1.477717.10...4.2" /> <id nullFlavor="NA " /> <code codeSystem="local" code="Hgb2572" displayName="FINAL CULTURE RESULTS" /> <statusCode code="completed" /> < effectiveTime value="461073733802" /> <value unit="" xsi:type="PQ" value="Blood Culture Negative, No Growth Day 5" /> <referenceRange> <observationRange> <text /> </observationRange > </referenceRange> </observation> </component> < component> <observation moodCode="EVN" classCode="OBS"> < templateId root="216.840.1.086565.10..22.4.2" /> <id nullFlavor="NA " /> <code codeSystem="local" code="Yjk6230" displayName="MEDIA PLATED " /> <statusCode code="completed" /> <effectiveTime value= "295037315190" /> <value unit="" xsi:type="PQ" value="Setup at 14:41 on 03/15/2017 Blood Culture Media Position a12" /> <referenceRange> <observationRange> <text /> </observationRange> </referenceRange> </observation> </component> < component> <observation moodCode="EVN" classCode="OBS"> < templateId root="216.840.1.560149.11.29.21.4.2" /> <id nullFlavor="NA " /> <code codeSystem="local" code="Gzh2997" displayName="CULTURE SOURCE" /> <statusCode code="completed" /> <effectiveTime value="825649582664" /> <value unit="" xsi:type="PQ" value="right side of neck" /> <referenceRange> <observationRange> <text /> </observationRange> </referenceRange> </ observation> </component> </organizer> </entry> <entry> <organizer moodCode="EVN" classCode="BATTERY"> <templateId root= "03.28.840.1.297491.11.29.21.4.1" /> <id nullFlavor="NA" /> <code codeSystem="local" code="ORD3" displayName="Comprehensive Metabolic Panel" /> <statusCode code="completed" /> <component> <observation moodCode="EVN" classCode="OBS"> <templateId root= "03.28.840.1.020784.11.29.21.4.2" /> <id nullFlavor="NA" /> < code codeSystem="local" code="Res44" displayName="Albumin" /> < statusCode code="completed" /> <effectiveTime value="896349468254" /> <value unit="g/dL" xsi:type="PQ" value="3.7" /> < referenceRange> <observationRange> <text>3.6-5.1</text> </observationRange> </referenceRange> </observation > </component> <component> <observation moodCode="EVN" classCode="OBS"> <templateId root="03.28.840.1.045698.11.29.21.4.2" /> <id nullFlavor="NA" /> <code codeSystem="local" code="Res45" displayName="ALP" /> <statusCode code="completed" /> < effectiveTime value="111836525170" /> <value unit="U/L" xsi:type="PQ" value="165" /> <interpretationCode codeSystem="local" code="H" /> <referenceRange> <observationRange> <text>35-130</ text> </observationRange> </referenceRange> </ observation> </component> <component> <observation moodCode= "EVN" classCode="OBS"> <templateId root="2.16.840.1.986573.10.20.22.4.2 " /> <id nullFlavor="NA" /> <code codeSystem="local" code= "Res46" displayName="ALT" /> <statusCode code="completed" /> < effectiveTime value="116878923862" /> <value unit="U/L" xsi:type="PQ" value="46" /> <interpretationCode codeSystem="local" code="H" /> <referenceRange> <observationRange> <text>6-45</text > </observationRange> </referenceRange> </observation > </component> <component> <observation moodCode="EVN" classCode="OBS"> <templateId root="2.16.840.1.084420.10..22.4.2" /> <id nullFlavor="NA" /> <code codeSystem="local" code="Res61" displayName="Anion Gap" /> <statusCode code="completed" /> < effectiveTime value="304230922482" /> <value unit="" xsi:type="PQ" value="15" /> <interpretationCode codeSystem="local" code="H" /> <referenceRange> <observationRange> <text>6-14</text > </observationRange> </referenceRange> </observation > </component> <component> <observation moodCode="EVN" classCode="OBS"> <templateId root="216.840.1.847141.10...4.2" /> <id nullFlavor="NA" /> <code codeSystem="local" code="Res48" displayName="AST" /> <statusCode code="completed" /> < effectiveTime value="" /> <value unit="U/L" xsi:type="PQ" value="75" /> <interpretationCode codeSystem="local" code="H" /> <referenceRange> <observationRange> <text>2-40</text > </observationRange> </referenceRange> </observation > </component> <component> <observation moodCode="EVN" classCode="OBS"> <templateId root="16.840.1.922555...4.2" /> <id nullFlavor="NA" /> <code codeSystem="local" code="Res26" displayName="BUN" /> <statusCode code="completed" /> < effectiveTime value="" /> <value unit="mg/dL" xsi:type="PQ " value="14" /> <referenceRange> <observationRange> <text>5-25</text> </observationRange> </referenceRange > </observation> </component> <component> <observation moodCode="EVN" classCode="OBS"> <templateId root= "16.840.1.040425.10..22.4.2" /> <id nullFlavor="NA" /> < code codeSystem="local" code="Res5" displayName="Calcium" /> < statusCode code="completed" /> <effectiveTime value="" /> <value unit="mg/dL" xsi:type="PQ" value="8.4" /> < referenceRange> <observationRange> <text>8.3-10.4</text > </observationRange> </referenceRange> </observation > </component> <component> <observation moodCode="EVN" classCode="OBS"> <templateId root="216.840.1.160777.10.20.22.4.2" /> <id nullFlavor="NA" /> <code codeSystem="local" code="Res21" displayName="Chloride" /> <statusCode code="completed" /> < effectiveTime value="" /> <value unit="mmol/L" xsi:type="PQ " value="103" /> <referenceRange> <observationRange> <text>95-114</text> </observationRange> </ referenceRange> </observation> </component> <component> <observation moodCode="EVN" classCode="OBS"> <templateId root= "16.840.1.519414.10.22.4.2" /> <id nullFlavor="NA" /> < code codeSystem="local" code="Res49" displayName="CO2" /> <statusCode code="completed" /> <effectiveTime value="020183508775" /> < value unit="mEq/L" xsi:type="PQ" value="26" /> <referenceRange> <observationRange> <text>22-33</text> </ observationRange> </referenceRange> </observation> </ component> <component> <observation moodCode="EVN" classCode="OBS"> <templateId root="16.840.1.964053.10.2022.4.2" /> <id nullFlavor="NA" /> <code codeSystem="local" code="Dpv354" displayName= "Creat" /> <statusCode code="completed" /> <effectiveTime value="" /> <value unit="mg/dL" xsi:type="PQ" value="0.72" /> <referenceRange> <observationRange> <text> 0.50-1.50</text> </observationRange> </referenceRange> </observation> </component> <component> <observation moodCode="EVN" classCode="OBS"> <templateId root= "216.840.1.241503.10..22.4.2" /> <id nullFlavor="NA" /> < code codeSystem="local" code="Ufp788" displayName="eGFR" /> < statusCode code="completed" /> <effectiveTime value="029126991847" /> <value unit="mL/min/1.73m2" xsi:type="PQ" value="80" /> < referenceRange> <observationRange> <text>>59</text> </observationRange> </referenceRange> </observation> </component> <component> <observation moodCode="EVN" classCode ="OBS"> <templateId root="03.28.840.1.943581.10.4.2" /> < id nullFlavor="NA" /> <code codeSystem="local" code="Res7" displayName= "Globulin" /> <statusCode code="completed" /> <effectiveTime value="733607949908" /> <value unit="g/dL" xsi:type="PQ" value="2.6" / > <referenceRange> <observationRange> <text>2.3 -3.5</text> </observationRange> </referenceRange> </ observation> </component> <component> <observation moodCode= "EVN" classCode="OBS"> <templateId root="16.840.1.860432.10..22.4.2 " /> <id nullFlavor="NA" /> <code codeSystem="local" code= "Res60" displayName="Glucose" /> <statusCode code="completed" /> <effectiveTime value="254666550878" /> <value unit="mg/dL" xsi:type ="PQ" value="83" /> <referenceRange> <observationRange> <text>70-110</text> </observationRange> </ referenceRange> </observation> </component> <component> <observation moodCode="EVN" classCode="OBS"> <templateId root= "216.840.1.926349.10.20.22.4.2" /> <id nullFlavor="NA" /> < code codeSystem="local" code="Res52" displayName="Osmo" /> <statusCode code="completed" /> <effectiveTime value="058647347201" /> < value unit="" xsi:type="PQ" value="289" /> <referenceRange> <observationRange> <text>280-295</text> </ observationRange> </referenceRange> </observation> </ component> <component> <observation moodCode="EVN" classCode="OBS"> <templateId root="216.840.1.516043.10.20.22.4.2" /> <id nullFlavor="NA" /> <code codeSystem="local" code="Res20" displayName= "Potassium" /> <statusCode code="completed" /> <effectiveTime value="316144240519" /> <value unit="mmol/L" xsi:type="PQ" value="3.8" /> <referenceRange> <observationRange> <text> 3.5-5.3</text> </observationRange> </referenceRange> </observation> </component> <component> <observation moodCode= "EVN" classCode="OBS"> <templateId root="03.28.840.1.994988.22.4.2 " /> <id nullFlavor="NA" /> <code codeSystem="local" code= "Res19" displayName="Sodium" /> <statusCode code="completed" /> <effectiveTime value="813922713920" /> <value unit="mmol/L" xsi:type ="PQ" value="140" /> <referenceRange> <observationRange> <text>134-148</text> </observationRange> </ referenceRange> </observation> </component> <component> <observation moodCode="EVN" classCode="OBS"> <templateId root= "216.840.1.661710.11.29.21.4.2" /> <id nullFlavor="NA" /> < code codeSystem="local" code="Res51" displayName="TBil" /> <statusCode code="completed" /> <effectiveTime value="156601225386" /> < value unit="mg/dL" xsi:type="PQ" value="0.7" /> <referenceRange> <observationRange> <text>0.2-1.2</text> </ observationRange> </referenceRange> </observation> </ component> <component> <observation moodCode="EVN" classCode="OBS"> <templateId root="216.840.1.912012.11.29.21.4.2" /> <id nullFlavor="NA" /> <code codeSystem="local" code="Res24" displayName= "TP" /> <statusCode code="completed" /> <effectiveTime value= "320689236575" /> <value unit="g/dL" xsi:type="PQ" value="6.3" /> <referenceRange> <observationRange> <text>6.0-8.3</ text> </observationRange> </referenceRange> </ observation> </component> </organizer> </entry> <entry> <organizer moodCode="EVN" classCode="BATTERY"> <templateId root= "216.840.1.907203.10..22.4.1" /> <id nullFlavor="NA" /> <code codeSystem="local" code="VXA6102" displayName="Blood Culture" /> < statusCode code="completed" /> <component> <observation moodCode= "EVN" classCode="OBS"> <templateId root="216.840.1.397286.10..22.4.2 " /> <id nullFlavor="NA" /> <code codeSystem="local" code= "Mjt1347" displayName="PRELIM CULTURE RESULTS" /> <statusCode code= "completed" /> <effectiveTime value="364590349276" /> <value unit="" xsi:type="PQ" value="Blood Culture Negative, No Growth Day 1" /> <referenceRange> <observationRange> <text /> </observationRange> </referenceRange> </observation> </ component> <component> <observation moodCode="EVN" classCode="OBS"> <templateId root="216.840.1.924691.10..22.4.2" /> <id nullFlavor="NA" /> <code codeSystem="local" code="Lwj7814" displayName= "MEDIA PLATED" /> <statusCode code="completed" /> < effectiveTime value="112876504386" /> <value unit="" xsi:type="PQ" value="Setup at 14:41 on 03/15/2017 Blood Culture Media Position a12" /> <referenceRange> <observationRange> <text /> </observationRange> </referenceRange> </observation> </ component> <component> <observation moodCode="EVN" classCode="OBS"> <templateId root="16.840.1.561713.10..4.2" /> <id nullFlavor="NA" /> <code codeSystem="local" code="Axc1580" displayName= "CULTURE SOURCE" /> <statusCode code="completed" /> < effectiveTime value="469666439438" /> <value unit="" xsi:type="PQ" value="right side of neck" /> <referenceRange> < observationRange> <text /> </observationRange> </referenceRange> </observation> </component> </organizer> </ entry> <entry> <organizer moodCode="EVN" classCode="BATTERY"> < templateId root="16.840.1.369928.10..4.1" /> <id nullFlavor="NA" /> <code codeSystem="local" code="NNQ5543" displayName="Blood Culture" /> <statusCode code="completed" /> <component> <observation moodCode ="EVN" classCode="OBS"> <templateId root= "216.840.1.239513.10...4.2" /> <id nullFlavor="NA" /> < code codeSystem="local" code="Ynl1420" displayName="PRELIM CULTURE RESULTS" /> <statusCode code="completed" /> <effectiveTime value= "102755639576" /> <value unit="" xsi:type="PQ" value="Blood Culture Negative, No Growth Day 1" /> <referenceRange> < observationRange> <text /> </observationRange> </referenceRange> </observation> </component> <component> <observation moodCode="EVN" classCode="OBS"> <templateId root= "216.840.1.016194.10...4.2" /> <id nullFlavor="NA" /> < code codeSystem="local" code="Eoz5575" displayName="FINAL CULTURE RESULTS" /> <statusCode code="completed" /> <effectiveTime value= "795307535103" /> <value unit="" xsi:type="PQ" value="Blood Culture Negative, No Growth Day 5" /> <referenceRange> < observationRange> <text /> </observationRange> </referenceRange> </observation> </component> <component> <observation moodCode="EVN" classCode="OBS"> <templateId root= "2.16.840.1.962760.10..22.4.2" /> <id nullFlavor="NA" /> < code codeSystem="local" code="Vks6627" displayName="MEDIA PLATED" /> < statusCode code="completed" /> <effectiveTime value="313260547429" /> <value unit="" xsi:type="PQ" value="Setup at 14:41 on 03/15/2017 Blood Culture Media Position A11" /> <referenceRange> < observationRange> <text /> </observationRange> </referenceRange> </observation> </component> <component> <observation moodCode="EVN" classCode="OBS"> <templateId root= "2.16.840.1.441070.10..22.4.2" /> <id nullFlavor="NA" /> < code codeSystem="local" code="Tty9265" displayName="CULTURE SOURCE" /> <statusCode code="completed" /> <effectiveTime value="640268931020" /> <value unit="" xsi:type="PQ" value="picc line in neck right side" /> <referenceRange> <observationRange> <text /> </observationRange> </referenceRange> </observation> </component> </organizer> </entry> <entry> <organizer moodCode="EVN " classCode="BATTERY"> <templateId root="2.16.840.1.806939.10.22.4.1" / > <id nullFlavor="NA" /> <code codeSystem="local" code="EHH561" displayName="Lactic Acid" /> <statusCode code="completed" /> < component> <observation moodCode="EVN" classCode="OBS"> < templateId root="840.1.878309.11.29.21.4.2" /> <id nullFlavor="NA " /> <code codeSystem="local" code="Flq528" displayName="Lactic Acid" / > <statusCode code="completed" /> <effectiveTime value= "358773269057" /> <value unit="mg/dL" xsi:type="PQ" value="5.3" /> <referenceRange> <observationRange> <text>4.5-19.8 </text> </observationRange> </referenceRange> </ observation> </component> </organizer> </entry> <entry> <organizer moodCode="EVN" classCode="BATTERY"> <templateId root= "03.28.840.1.690279.11.29.21.4.1" /> <id nullFlavor="NA" /> <code codeSystem="local" code="AZW4126" displayName="Blood Culture" /> < statusCode code="completed" /> <component> <observation moodCode= "EVN" classCode="OBS"> <templateId root="03.28.840.1.493190.10.22.4.2 " /> <id nullFlavor="NA" /> <code codeSystem="local" code= "Cqo3959" displayName="PRELIM CULTURE RESULTS" /> <statusCode code= "completed" /> <effectiveTime value="921230886562" /> <value unit="" xsi:type="PQ" value="Blood Culture Negative, No Growth Day 1" /> <referenceRange> <observationRange> <text /> </observationRange> </referenceRange> </observation> </ component> <component> <observation moodCode="EVN" classCode="OBS"> <templateId root="216.840.1.599766.10..22.4.2" /> <id nullFlavor="NA" /> <code codeSystem="local" code="Zis9955" displayName= "MEDIA PLATED" /> <statusCode code="completed" /> < effectiveTime value="060276160377" /> <value unit="" xsi:type="PQ" value="Setup at 14:41 on 03/15/2017 Blood Culture Media Position A11" /> <referenceRange> <observationRange> <text /> </observationRange> </referenceRange> </observation> </ component> <component> <observation moodCode="EVN" classCode="OBS"> <templateId root="03.28.840.1.855725.10..4.2" /> <id nullFlavor="NA" /> <code codeSystem="local" code="Vyc0063" displayName= "CULTURE SOURCE" /> <statusCode code="completed" /> < effectiveTime value="738379578762" /> <value unit="" xsi:type="PQ" value="picc line in neck right side" /> <referenceRange> < observationRange> <text /> </observationRange> </referenceRange> </observation> </component> </organizer> </ entry> <entry> <organizer moodCode="EVN" classCode="BATTERY"> < templateId root="216.840.1.207016.10..22.4.1" /> <id nullFlavor="NA" /> <code codeSystem="local" code="VGP3844" displayName="Urine Culture" /> <statusCode code="completed" /> <component> <observation moodCode ="EVN" classCode="OBS"> <templateId root= "2.16.840.1.841596.10...4.2" /> <id nullFlavor="NA" /> < code codeSystem="local" code="Tdu5869" displayName="FINAL CULTURE RESULTS" /> <statusCode code="completed" /> <effectiveTime value= "" /> <value unit="" xsi:type="PQ" value="<10,000 Gram Positive and Gram Negative [id number] Further Workup done" /> < referenceRange> <observationRange> <text /> < /observationRange> </referenceRange> </observation> </ component> <component> <observation moodCode="EVN" classCode="OBS"> <templateId root="216.840.1.878316.11.29.21.4.2" /> <id nullFlavor="NA" /> <code codeSystem="local" code="Sdf8869" displayName= "MEDIA PLATED" /> <statusCode code="completed" /> < effectiveTime value="" /> <value unit="" xsi:type="PQ" value="Setup at 18:55 on 03/15/2017" /> <referenceRange> < observationRange> <text /> </observationRange> </referenceRange> </observation> </component> <component> <observation moodCode="EVN" classCode="OBS"> <templateId root= "2.16.840.1.215303.10...4.2" /> <id nullFlavor="NA" /> < code codeSystem="local" code="Igd6684" displayName="CULTURE SOURCE" /> <statusCode code="completed" /> <effectiveTime value="" /> <value unit="" xsi:type="PQ" value="voided urine" /> < referenceRange> <observationRange> <text /> < /observationRange> </referenceRange> </observation> </ component> </organizer> </entry> <entry> <organizer moodCode="EVN" classCode="BATTERY"> <templateId root="03.28.840.1.272474.10...4.1" /> <id nullFlavor="NA" /> <code codeSystem="local" code="ORD68" displayName="Urinalysis" /> <statusCode code="completed" /> <component > <observation moodCode="EVN" classCode="OBS"> <templateId root= "03.28.840.1.234463...4.2" /> <id nullFlavor="NA" /> < code codeSystem="local" code="Guo0172" displayName="Icotest" /> < statusCode code="completed" /> <effectiveTime value="" /> <value unit="" xsi:type="PQ" value="N/A" /> < interpretationCode codeSystem="local" code="A" /> <referenceRange> <observationRange> <text>Negative</text> </ observationRange> </referenceRange> </observation> </ component> <component> <observation moodCode="EVN" classCode="OBS"> <templateId root="03.28.840.1.296034.11.29.21.4.2" /> <id nullFlavor="NA" /> <code codeSystem="local" code="Esf203" displayName= "Urine Crystals" /> <statusCode code="completed" /> < effectiveTime value="" /> <value unit="" xsi:type="PQ" value="Amorphous material: abundant/HPF" /> <referenceRange> <observationRange> <text /> </observationRange> </referenceRange> </observation> </component> <component> <observation moodCode="EVN" classCode="OBS"> <templateId root= "216.840.1.674071.10..4.2" /> <id nullFlavor="NA" /> < code codeSystem="local" code="Nqz085" displayName="Urine Volume" /> < statusCode code="completed" /> <effectiveTime value="" /> <value unit="" xsi:type="PQ" value="Urine Volume Sufficient (10mL)" /> <referenceRange> <observationRange> <text /> </observationRange> </referenceRange> </observation> </component> <component> <observation moodCode="EVN" classCode ="OBS"> <templateId root="216.840.1.380539.11.29.21.4.2" /> < id nullFlavor="NA" /> <code codeSystem="local" code="Qol654" displayName="Urine-Appearance" /> <statusCode code="completed" /> <effectiveTime value="" /> <value unit="" xsi:type="PQ " value="Turbid" /> <interpretationCode codeSystem="local" code="A" /> <referenceRange> <observationRange> <text> Clear</text> </observationRange> </referenceRange> </ observation> </component> <component> <observation moodCode= "EVN" classCode="OBS"> <templateId root="216.840.1.721691.11.29.21.4.2 " /> <id nullFlavor="NA" /> <code codeSystem="local" code= "Yrz307" displayName="Urine-Bacteria" /> <statusCode code="completed" / > <effectiveTime value="" /> <value unit="" xsi: type="PQ" value="Trace" /> <interpretationCode codeSystem="local" code= "A" /> <referenceRange> <observationRange> < text> </text> </observationRange> </referenceRange> < /observation> </component> <component> <observation moodCode= "EVN" classCode="OBS"> <templateId root="16.840.1.513592.10..4.2 " /> <id nullFlavor="NA" /> <code codeSystem="local" code= "Hhr589" displayName="Urine-Bilirubin" /> <statusCode code="completed" /> <effectiveTime value="509953081123" /> <value unit="" xsi: type="PQ" value="Negative" /> <referenceRange> < observationRange> <text>Negative</text> </ observationRange> </referenceRange> </observation> </ component> <component> <observation moodCode="EVN" classCode="OBS"> <templateId root="840.1.662829.11.29.21.4.2" /> <id nullFlavor="NA" /> <code codeSystem="local" code="Yhg450" displayName= "Urine-Blood" /> <statusCode code="completed" /> < effectiveTime value="416150207242" /> <value unit="" xsi:type="PQ" value="Trace-lysed" /> <interpretationCode codeSystem="local" code="A" /> <referenceRange> <observationRange> <text> Negative</text> </observationRange> </referenceRange> </observation> </component> <component> <observation moodCode ="EVN" classCode="OBS"> <templateId root= "03.28.840.1.186739...4.2" /> <id nullFlavor="NA" /> < code codeSystem="local" code="Ujy210" displayName="Urine-Color" /> < statusCode code="completed" /> <effectiveTime value="842680490545" /> <value unit="" xsi:type="PQ" value="Yellow" /> <referenceRange > <observationRange> <text>Colorless-Lt. Yellow</text> </observationRange> </referenceRange> </observation> </component> <component> <observation moodCode="EVN" classCode ="OBS"> <templateId root="840.1.069265.10..22.4.2" /> < id nullFlavor="NA" /> <code codeSystem="local" code="Cue836" displayName="Urine-Epithelial Cells" /> <statusCode code="completed" / > <effectiveTime value="113594526410" /> <value unit="" xsi: type="PQ" value="0-5/HPF" /> <interpretationCode codeSystem="local" code="A" /> <referenceRange> <observationRange> <text> </text> </observationRange> </referenceRange> </observation> </component> <component> <observation moodCode="EVN" classCode="OBS"> <templateId root= "840.1.867526.10.20.22.4.2" /> <id nullFlavor="NA" /> < code codeSystem="local" code="Fpe013" displayName="Urine-Glucose" /> < statusCode code="completed" /> <effectiveTime value="401606446100" /> <value unit="" xsi:type="PQ" value="Negative" /> < referenceRange> <observationRange> <text>Negative</text > </observationRange> </referenceRange> </observation > </component> <component> <observation moodCode="EVN" classCode="OBS"> <templateId root="03.28.830.1.575209.10..22.4.2" /> <id nullFlavor="NA" /> <code codeSystem="local" code="Dcl537" displayName="Urine-Ketones" /> <statusCode code="completed" /> <effectiveTime value="" /> <value unit="" xsi:type="PQ" value="Negative" /> <referenceRange> <observationRange> <text>Negative</text> </observationRange> </ referenceRange> </observation> </component> <component> <observation moodCode="EVN" classCode="OBS"> <templateId root= "216.840.1.343698.10..4.2" /> <id nullFlavor="NA" /> < code codeSystem="local" code="Qhp865" displayName="Urine-Leukocytes" /> <statusCode code="completed" /> <effectiveTime value="" / > <value unit="" xsi:type="PQ" value="1+" /> < interpretationCode codeSystem="local" code="A" /> <referenceRange> <observationRange> <text>Negative</text> </ observationRange> </referenceRange> </observation> </ component> <component> <observation moodCode="EVN" classCode="OBS"> <templateId root="16.840.1.322213.10.4.2" /> <id nullFlavor="NA" /> <code codeSystem="local" code="Wyq893" displayName= "Urine-Nitrite" /> <statusCode code="completed" /> < effectiveTime value="" /> <value unit="" xsi:type="PQ" value="Negative" /> <referenceRange> <observationRange> <text>Negative</text> </observationRange> </ referenceRange> </observation> </component> <component> <observation moodCode="EVN" classCode="OBS"> <templateId root= "2.16.840.1.250400.10..4.2" /> <id nullFlavor="NA" /> < code codeSystem="local" code="Sik070" displayName="Urine-Other" /> < statusCode code="completed" /> <effectiveTime value="" /> <value unit="" xsi:type="PQ" value="Culture to follow" /> < interpretationCode codeSystem="local" code="A" /> <referenceRange> <observationRange> <text> </text> </ observationRange> </referenceRange> </observation> </ component> <component> <observation moodCode="EVN" classCode="OBS"> <templateId root="216.840.1.740233.11.29.214.2" /> <id nullFlavor="NA" /> <code codeSystem="local" code="Qgs541" displayName= "Urine-pH" /> <statusCode code="completed" /> <effectiveTime value="" /> <value unit="" xsi:type="PQ" value="8.5" /> <referenceRange> <observationRange> <text>5-8.5</ text> </observationRange> </referenceRange> </ observation> </component> <component> <observation moodCode= "EVN" classCode="OBS"> <templateId root="2.16.840.1.041243.10..4.2 " /> <id nullFlavor="NA" /> <code codeSystem="local" code= "Eox178" displayName="Urine-Protein" /> <statusCode code="completed" / > <effectiveTime value="" /> <value unit="" xsi: type="PQ" value="Negative" /> <referenceRange> < observationRange> <text>Negative</text> </ observationRange> </referenceRange> </observation> </ component> <component> <observation moodCode="EVN" classCode="OBS"> <templateId root="16.840.1.615904.10.20.22.4.2" /> <id nullFlavor="NA" /> <code codeSystem="local" code="Cll172" displayName= "Urine-RBC" /> <statusCode code="completed" /> <effectiveTime value="153553388268" /> <value unit="" xsi:type="PQ" value="0-2/HPF" / > <interpretationCode codeSystem="local" code="A" /> < referenceRange> <observationRange> <text> </text> </observationRange> </referenceRange> </observation> </component> <component> <observation moodCode="EVN" classCode="OBS "> <templateId root="840.1.091414.10.22.4.2" /> <id nullFlavor="NA" /> <code codeSystem="local" code="Ewl439" displayName= "Urine-Specific [place]" /> <statusCode code="completed" /> < effectiveTime value="184970845781" /> <value unit="" xsi:type="PQ" value="1.015" /> <referenceRange> <observationRange> <text>1.000-1.030</text> </observationRange> </ referenceRange> </observation> </component> <component> <observation moodCode="EVN" classCode="OBS"> <templateId root= "03.28.840.1.894977.10.20.22.4.2" /> <id nullFlavor="NA" /> < code codeSystem="local" code="Swk337" displayName="Urine-WBC" /> < statusCode code="completed" /> <effectiveTime value="562609157416" /> <value unit="" xsi:type="PQ" value="5-10/HPF" /> < interpretationCode codeSystem="local" code="A" /> <referenceRange> <observationRange> <text> </text> </ observationRange> </referenceRange> </observation> </ component> <component> <observation moodCode="EVN" classCode="OBS"> <templateId root="840.1.717594.1022.4.2" /> <id nullFlavor="NA" /> <code codeSystem="local" code="Scw688" displayName= "Urobilinogen" /> <statusCode code="completed" /> < effectiveTime value="" /> <value unit="" xsi:type="PQ" value="0.2" /> <referenceRange> <observationRange> <text>0.2-1.0</text> </observationRange> </ referenceRange> </observation> </component> </organizer> </entry > <entry> <organizer moodCode="EVN" classCode="BATTERY"> <templateId root="840.1.932130.11.29.21.4.1" /> <id nullFlavor="NA" /> <code codeSystem="local" code="ORD3" displayName="Comprehensive Metabolic Panel" /> <statusCode code="completed" /> <component> <observation moodCode="EVN" classCode="OBS"> <templateId root= "840.1.167689.1022.4.2" /> <id nullFlavor="NA" /> < code codeSystem="local" code="Res44" displayName="Albumin" /> < statusCode code="completed" /> <effectiveTime value="713393785131" /> <value unit="g/dL" xsi:type="PQ" value="3.3" /> < interpretationCode codeSystem="local" code="L" /> <referenceRange> <observationRange> <text>3.6-5.1</text> </ observationRange> </referenceRange> </observation> </ component> <component> <observation moodCode="EVN" classCode="OBS"> <templateId root="216.840.1.833168.10.20.22.4.2" /> <id nullFlavor="NA" /> <code codeSystem="local" code="Res45" displayName= "ALP" /> <statusCode code="completed" /> <effectiveTime value= "866616685991" /> <value unit="U/L" xsi:type="PQ" value="149" /> <interpretationCode codeSystem="local" code="H" /> <referenceRange > <observationRange> <text>35-130</text> </ observationRange> </referenceRange> </observation> </ component> <component> <observation moodCode="EVN" classCode="OBS"> <templateId root="16.840.1.654114.10.20.22.4.2" /> <id nullFlavor="NA" /> <code codeSystem="local" code="Res46" displayName= "ALT" /> <statusCode code="completed" /> <effectiveTime value= "628056301632" /> <value unit="U/L" xsi:type="PQ" value="37" /> <referenceRange> <observationRange> <text>6-45</text > </observationRange> </referenceRange> </observation > </component> <component> <observation moodCode="EVN" classCode="OBS"> <templateId root="16.840.1.698509.11.29.21.4.2" /> <id nullFlavor="NA" /> <code codeSystem="local" code="Res61" displayName="Anion Gap" /> <statusCode code="completed" /> < effectiveTime value="" /> <value unit="" xsi:type="PQ" value="14" /> <referenceRange> <observationRange> <text>6-14</text> </observationRange> </referenceRange> </observation> </component> <component> <observation moodCode="EVN" classCode="OBS"> <templateId root= "216.840.1.317127.11.29.21.4.2" /> <id nullFlavor="NA" /> < code codeSystem="local" code="Res48" displayName="AST" /> <statusCode code="completed" /> <effectiveTime value="" /> < value unit="U/L" xsi:type="PQ" value="45" /> <interpretationCode codeSystem="local" code="H" /> <referenceRange> < observationRange> <text>2-40</text> </observationRange> </referenceRange> </observation> </component> < component> <observation moodCode="EVN" classCode="OBS"> < templateId root="16.840.1.491711.11.29.21.4.2" /> <id nullFlavor="NA " /> <code codeSystem="local" code="Res26" displayName="BUN" /> <statusCode code="completed" /> <effectiveTime value="" /> <value unit="mg/dL" xsi:type="PQ" value="9" /> < referenceRange> <observationRange> <text>5-25</text> </observationRange> </referenceRange> </observation> </component> <component> <observation moodCode="EVN" classCode= "OBS"> <templateId root="2.16.840.1.570222.10.22.4.2" /> < id nullFlavor="NA" /> <code codeSystem="local" code="Res5" displayName= "Calcium" /> <statusCode code="completed" /> <effectiveTime value="" /> <value unit="mg/dL" xsi:type="PQ" value="8.2" / > <interpretationCode codeSystem="local" code="L" /> < referenceRange> <observationRange> <text>8.3-10.4</text > </observationRange> </referenceRange> </observation > </component> <component> <observation moodCode="EVN" classCode="OBS"> <templateId root="216.840.1.544880.11.29.214.2" /> <id nullFlavor="NA" /> <code codeSystem="local" code="Res21" displayName="Chloride" /> <statusCode code="completed" /> < effectiveTime value="" /> <value unit="mmol/L" xsi:type="PQ " value="105" /> <referenceRange> <observationRange> <text>95-114</text> </observationRange> </ referenceRange> </observation> </component> <component> <observation moodCode="EVN" classCode="OBS"> <templateId root= "216.840.1.407022.10.22.4.2" /> <id nullFlavor="NA" /> < code codeSystem="local" code="Res49" displayName="CO2" /> <statusCode code="completed" /> <effectiveTime value="" /> < value unit="mEq/L" xsi:type="PQ" value="26" /> <referenceRange> <observationRange> <text>22-33</text> </ observationRange> </referenceRange> </observation> </ component> <component> <observation moodCode="EVN" classCode="OBS"> <templateId root="16.840.1.492899.10.20.22.4.2" /> <id nullFlavor="NA" /> <code codeSystem="local" code="Lma693" displayName= "Creat" /> <statusCode code="completed" /> <effectiveTime value="787644884200" /> <value unit="mg/dL" xsi:type="PQ" value="0.68" /> <referenceRange> <observationRange> <text> 0.50-1.50</text> </observationRange> </referenceRange> </observation> </component> <component> <observation moodCode="EVN" classCode="OBS"> <templateId root= "03.28.840.1.655463.10.20.22.4.2" /> <id nullFlavor="NA" /> < code codeSystem="local" code="Zsz856" displayName="eGFR" /> < statusCode code="completed" /> <effectiveTime value="876020349854" /> <value unit="mL/min/1.73m2" xsi:type="PQ" value="86" /> < referenceRange> <observationRange> <text>>59</text> </observationRange> </referenceRange> </observation> </component> <component> <observation moodCode="EVN" classCode ="OBS"> <templateId root="16.840.1.962256.10.20.22.4.2" /> < id nullFlavor="NA" /> <code codeSystem="local" code="Res7" displayName= "Globulin" /> <statusCode code="completed" /> <effectiveTime value="013345082809" /> <value unit="g/dL" xsi:type="PQ" value="2.4" / > <referenceRange> <observationRange> <text>2.3 -3.5</text> </observationRange> </referenceRange> </ observation> </component> <component> <observation moodCode= "EVN" classCode="OBS"> <templateId root="03.28.840.1.126995.10..4.2 " /> <id nullFlavor="NA" /> <code codeSystem="local" code= "Res60" displayName="Glucose" /> <statusCode code="completed" /> <effectiveTime value="611466287552" /> <value unit="mg/dL" xsi:type ="PQ" value="96" /> <referenceRange> <observationRange> <text>70-110</text> </observationRange> </ referenceRange> </observation> </component> <component> <observation moodCode="EVN" classCode="OBS"> <templateId root= "03.28.840.1.653256.10..4.2" /> <id nullFlavor="NA" /> < code codeSystem="local" code="Res52" displayName="Osmo" /> <statusCode code="completed" /> <effectiveTime value="243983285294" /> < value unit="" xsi:type="PQ" value="290" /> <referenceRange> <observationRange> <text>280-295</text> </ observationRange> </referenceRange> </observation> </ component> <component> <observation moodCode="EVN" classCode="OBS"> <templateId root="03.28.840.1.599378.10..4.2" /> <id nullFlavor="NA" /> <code codeSystem="local" code="Res20" displayName= "Potassium" /> <statusCode code="completed" /> <effectiveTime value="801260831111" /> <value unit="mmol/L" xsi:type="PQ" value="3.9" /> <referenceRange> <observationRange> <text> 3.5-5.3</text> </observationRange> </referenceRange> </observation> </component> <component> <observation moodCode= "EVN" classCode="OBS"> <templateId root="2.16.840.1.309926.10..22.4.2 " /> <id nullFlavor="NA" /> <code codeSystem="local" code= "Res19" displayName="Sodium" /> <statusCode code="completed" /> <effectiveTime value="105517112490" /> <value unit="mmol/L" xsi:type ="PQ" value="141" /> <referenceRange> <observationRange> <text>134-148</text> </observationRange> </ referenceRange> </observation> </component> <component> <observation moodCode="EVN" classCode="OBS"> <templateId root= "2.16.840.1.004750.10..22.4.2" /> <id nullFlavor="NA" /> < code codeSystem="local" code="Res51" displayName="TBil" /> <statusCode code="completed" /> <effectiveTime value="006601487945" /> < value unit="mg/dL" xsi:type="PQ" value="0.6" /> <referenceRange> <observationRange> <text>0.2-1.2</text> </ observationRange> </referenceRange> </observation> </ component> <component> <observation moodCode="EVN" classCode="OBS"> <templateId root="03.28.840.1.215975.10..4.2" /> <id nullFlavor="NA" /> <code codeSystem="local" code="Res24" displayName= "TP" /> <statusCode code="completed" /> <effectiveTime value= "728403564064" /> <value unit="g/dL" xsi:type="PQ" value="5.7" /> <interpretationCode codeSystem="local" code="L" /> <referenceRange > <observationRange> <text>6.0-8.3</text> </ observationRange> </referenceRange> </observation> </ component> </organizer> </entry> <entry> <organizer moodCode="EVN" classCode="BATTERY"> <templateId root="03.28.840.1.351900.10..4.1" /> <id nullFlavor="NA" /> <code codeSystem="local" code="IFK6966" displayName="Protime " /> <statusCode code="completed" /> <component> <observation moodCode="EVN" classCode="OBS"> <templateId root= "03.28.840.1.120867.10..22.4.2" /> <id nullFlavor="NA" /> < code codeSystem="local" code="Ywm131" displayName="INR" /> <statusCode code="completed" /> <effectiveTime value="485294138684" /> < value unit="" xsi:type="PQ" value="1.9" /> <referenceRange> <observationRange> <text>1.0-4.0</text> </ observationRange> </referenceRange> </observation> </ component> <component> <observation moodCode="EVN" classCode="OBS"> <templateId root="03.28.830.1.773214.10..22.4.2" /> <id nullFlavor="NA" /> <code codeSystem="local" code="Syt3835" displayName= "Protime" /> <statusCode code="completed" /> <effectiveTime value="093223861027" /> <value unit="Sec" xsi:type="PQ" value="22.5" / > <interpretationCode codeSystem="local" code="H" /> < referenceRange> <observationRange> <text>9.9-12.8</text > </observationRange> </referenceRange> </observation > </component> </organizer> </entry> <entry> <organizer moodCode= "EVN" classCode="BATTERY"> <templateId root="2.16.840.1.387442.10.20.22.4.1 " /> <id nullFlavor="NA" /> <code codeSystem="local" code="FST074" displayName="BNP" /> <statusCode code="completed" /> <component> <observation moodCode="EVN" classCode="OBS"> <templateId root= "2.16.840.1.305344.10.20.22.4.2" /> <id nullFlavor="NA" /> < code codeSystem="local" code="Nir923" displayName="BNP" /> <statusCode code="completed" /> <effectiveTime value="439624003145" /> < value unit="pg/ml" xsi:type="PQ" value="18.90" /> <referenceRange> <observationRange> <text>0.00-100.00</text> </ observationRange> </referenceRange> </observation> </ component> </organizer> </entry> <entry> <organizer moodCode="EVN" classCode="BATTERY"> <templateId root="16.840.1.860426.11.29.21.4.1" /> <id nullFlavor="NA" /> <code codeSystem="local" code="NBY9038" displayName="Protime " /> <statusCode code="completed" /> <component> <observation moodCode="EVN" classCode="OBS"> <templateId root= "03.28.840.1.370136.11.29.21.4.2" /> <id nullFlavor="NA" /> < code codeSystem="local" code="Kpb215" displayName="INR" /> <statusCode code="completed" /> <effectiveTime value="092564066363" /> < value unit="" xsi:type="PQ" value="2.2" /> <referenceRange> <observationRange> <text>1.0-4.0</text> </ observationRange> </referenceRange> </observation> </ component> <component> <observation moodCode="EVN" classCode="OBS"> <templateId root="16.840.1.650300.11.29.21.4.2" /> <id nullFlavor="NA" /> <code codeSystem="local" code="Tte4659" displayName= "Protime" /> <statusCode code="completed" /> <effectiveTime value="655167539196" /> <value unit="Sec" xsi:type="PQ" value="26.0" / > <interpretationCode codeSystem="local" code="H" /> < referenceRange> <observationRange> <text>9.9-12.8</text > </observationRange> </referenceRange> </observation > </component> </organizer> </entry> <entry> <organizer moodCode= "EVN" classCode="BATTERY"> <templateId root="216.840.1.314064.11.29.21.4.1 " /> <id nullFlavor="NA" /> <code codeSystem="local" code="KGP1826" displayName="Protime " /> <statusCode code="completed" /> <component> <observation moodCode="EVN" classCode="OBS"> <templateId root= "216.840.1.362315.11.29.21.4.2" /> <id nullFlavor="NA" /> < code codeSystem="local" code="Xxt346" displayName="INR" /> <statusCode code="completed" /> <effectiveTime value="" /> < value unit="" xsi:type="PQ" value="2.5" /> <referenceRange> <observationRange> <text>1.0-4.0</text> </ observationRange> </referenceRange> </observation> </ component> <component> <observation moodCode="EVN" classCode="OBS"> <templateId root="03.28.840.1.068742.11.29.21.4.2" /> <id nullFlavor="NA" /> <code codeSystem="local" code="Jti6463" displayName= "Protime" /> <statusCode code="completed" /> <effectiveTime value="" /> <value unit="Sec" xsi:type="PQ" value="29.4" / > <interpretationCode codeSystem="local" code="H" /> < referenceRange> <observationRange> <text>9.9-12.8</text > </observationRange> </referenceRange> </observation > </component> </organizer> </entry> <entry> <organizer moodCode= "EVN" classCode="BATTERY"> <templateId root="216.840.1.960048.11.29.21.4.1 " /> <id nullFlavor="NA" /> <code codeSystem="local" code="IQY3329" displayName="Protime " /> <statusCode code="completed" /> <component> <observation moodCode="EVN" classCode="OBS"> <templateId root= "03.28.840.1.403647.10.20.22.4.2" /> <id nullFlavor="NA" /> < code codeSystem="local" code="Owz783" displayName="INR" /> <statusCode code="completed" /> <effectiveTime value="" /> < value unit="" xsi:type="PQ" value="2.8" /> <referenceRange> <observationRange> <text>1.0-4.0</text> </ observationRange> </referenceRange> </observation> </ component> <component> <observation moodCode="EVN" classCode="OBS"> <templateId root="03.28.840.1.088994.10..4.2" /> <id nullFlavor="NA" /> <code codeSystem="local" code="Qds6807" displayName= "Protime" /> <statusCode code="completed" /> <effectiveTime value="233540958198" /> <value unit="Sec" xsi:type="PQ" value="32.7" / > <interpretationCode codeSystem="local" code="H" /> < referenceRange> <observationRange> <text>9.9-12.8</text > </observationRange> </referenceRange> </observation > </component> </organizer> </entry> <entry> <organizer moodCode= "EVN" classCode="BATTERY"> <templateId root="03.28.840.1.194712.10.20.22.4.1 " /> <id nullFlavor="NA" /> <code codeSystem="local" code="ORD4" displayName="BMP" /> <statusCode code="completed" /> <component> <observation moodCode="EVN" classCode="OBS"> <templateId root= "216.840.1.152730.10.4.2" /> <id nullFlavor="NA" /> < code codeSystem="local" code="Res61" displayName="Anion Gap" /> < statusCode code="completed" /> <effectiveTime value="" /> <value unit="" xsi:type="PQ" value="16" /> < interpretationCode codeSystem="local" code="H" /> <referenceRange> <observationRange> <text>6-14</text> </ observationRange> </referenceRange> </observation> </ component> <component> <observation moodCode="EVN" classCode="OBS"> <templateId root="2.840.1.283077.11.29.214.2" /> <id nullFlavor="NA" /> <code codeSystem="local" code="Res26" displayName= "BUN" /> <statusCode code="completed" /> <effectiveTime value= "" /> <value unit="mg/dL" xsi:type="PQ" value="8" /> <referenceRange> <observationRange> <text>5-25</text > </observationRange> </referenceRange> </observation > </component> <component> <observation moodCode="EVN" classCode="OBS"> <templateId root="216.840.1.336319.11.29.21.4.2" /> <id nullFlavor="NA" /> <code codeSystem="local" code="Res5" displayName="Calcium" /> <statusCode code="completed" /> < effectiveTime value="721278686297" /> <value unit="mg/dL" xsi:type="PQ " value="9.2" /> <referenceRange> <observationRange> <text>8.3-10.4</text> </observationRange> </ referenceRange> </observation> </component> <component> <observation moodCode="EVN" classCode="OBS"> <templateId root= "216.840.1.471409.10.22.4.2" /> <id nullFlavor="NA" /> < code codeSystem="local" code="Res21" displayName="Chloride" /> < statusCode code="completed" /> <effectiveTime value="484252267806" /> <value unit="mmol/L" xsi:type="PQ" value="106" /> < referenceRange> <observationRange> <text>95-114</text> </observationRange> </referenceRange> </observation> </component> <component> <observation moodCode="EVN" classCode ="OBS"> <templateId root="03.28.840.1.781285...4.2" /> < id nullFlavor="NA" /> <code codeSystem="local" code="Res49" displayName ="CO2" /> <statusCode code="completed" /> <effectiveTime value ="606608827706" /> <value unit="mEq/L" xsi:type="PQ" value="27" /> <referenceRange> <observationRange> <text>22-33</ text> </observationRange> </referenceRange> </ observation> </component> <component> <observation moodCode= "EVN" classCode="OBS"> <templateId root="16.840.1.558762.10.2022.4.2 " /> <id nullFlavor="NA" /> <code codeSystem="local" code= "Ikk623" displayName="Creat" /> <statusCode code="completed" /> <effectiveTime value="453910640947" /> <value unit="mg/dL" xsi:type= "PQ" value="0.72" /> <referenceRange> <observationRange> <text>0.50-1.50</text> </observationRange> </ referenceRange> </observation> </component> <component> <observation moodCode="EVN" classCode="OBS"> <templateId root= "216.840.1.753050.10..22.4.2" /> <id nullFlavor="NA" /> < code codeSystem="local" code="Npb698" displayName="eGFR" /> < statusCode code="completed" /> <effectiveTime value="039220426515" /> <value unit="mL/min/1.73m2" xsi:type="PQ" value="80" /> < referenceRange> <observationRange> <text>>59</text> </observationRange> </referenceRange> </observation> </component> <component> <observation moodCode="EVN" classCode ="OBS"> <templateId root="216.840.1.679469...22.4.2" /> < id nullFlavor="NA" /> <code codeSystem="local" code="Res60" displayName ="Glucose" /> <statusCode code="completed" /> <effectiveTime value="492437770164" /> <value unit="mg/dL" xsi:type="PQ" value="89" / > <referenceRange> <observationRange> <text>70- 110</text> </observationRange> </referenceRange> </ observation> </component> <component> <observation moodCode= "EVN" classCode="OBS"> <templateId root="216.840.1.127091.22.4.2 " /> <id nullFlavor="NA" /> <code codeSystem="local" code= "Res52" displayName="Osmo" /> <statusCode code="completed" /> <effectiveTime value="" /> <value unit="" xsi:type="PQ" value="297" /> <interpretationCode codeSystem="local" code="H" /> <referenceRange> <observationRange> <text>280-295</ text> </observationRange> </referenceRange> </ observation> </component> <component> <observation moodCode= "EVN" classCode="OBS"> <templateId root="2.16.840.1.338244...4.2 " /> <id nullFlavor="NA" /> <code codeSystem="local" code= "Res20" displayName="Potassium" /> <statusCode code="completed" /> <effectiveTime value="" /> <value unit="mmol/L" xsi: type="PQ" value="4.2" /> <referenceRange> <observationRange > <text>3.5-5.3</text> </observationRange> </ referenceRange> </observation> </component> <component> <observation moodCode="EVN" classCode="OBS"> <templateId root= "2.16.840.1.833582.10...4.2" /> <id nullFlavor="NA" /> < code codeSystem="local" code="Res19" displayName="Sodium" /> < statusCode code="completed" /> <effectiveTime value="" /> <value unit="mmol/L" xsi:type="PQ" value="145" /> < referenceRange> <observationRange> <text>134-148</text> </observationRange> </referenceRange> </observation > </component> </organizer> </entry> <entry> <organizer moodCode= "EVN" classCode="BATTERY"> <templateId root="216.840.1.313493.10..4.1 " /> <id nullFlavor="NA" /> <code codeSystem="local" code="QEV0561" displayName="Protime " /> <statusCode code="completed" /> <component> <observation moodCode="EVN" classCode="OBS"> <templateId root= "2.16.840.1.108504.10..4.2" /> <id nullFlavor="NA" /> < code codeSystem="local" code="Xhd121" displayName="INR" /> <statusCode code="completed" /> <effectiveTime value="530207974787" /> < value unit="" xsi:type="PQ" value="3.0" /> <referenceRange> <observationRange> <text>1.0-4.0</text> </ observationRange> </referenceRange> </observation> </ component> <component> <observation moodCode="EVN" classCode="OBS"> <templateId root="216.840.1.296478.10...4.2" /> <id nullFlavor="NA" /> <code codeSystem="local" code="Vgr8470" displayName= "Protime" /> <statusCode code="completed" /> <effectiveTime value="292821404581" /> <value unit="Sec" xsi:type="PQ" value="34.5" / > <interpretationCode codeSystem="local" code="H" /> < referenceRange> <observationRange> <text>9.9-12.8</text > </observationRange> </referenceRange> </observation > </component> </organizer> </entry> <entry> <organizer moodCode= "EVN" classCode="BATTERY"> <templateId root="2.16.840.1.142935.10..22.4.1 " /> <id nullFlavor="NA" /> <code codeSystem="local" code="ZEH3847" displayName="Protime " /> <statusCode code="completed" /> <component> <observation moodCode="EVN" classCode="OBS"> <templateId root= "216.840.1.594874.10..22.4.2" /> <id nullFlavor="NA" /> < code codeSystem="local" code="Oyg408" displayName="INR" /> <statusCode code="completed" /> <effectiveTime value="984782736097" /> < value unit="" xsi:type="PQ" value="[address] Vasquez" /> < interpretationCode codeSystem="local" code="HH" /> <referenceRange> <observationRange> <text>1.0-4.0</text> </ observationRange> </referenceRange> </observation> </ component> <component> <observation moodCode="EVN" classCode="OBS"> <templateId root="2.16.840.1.214698.10..22.4.2" /> <id nullFlavor="NA" /> <code codeSystem="local" code="Mgd7777" displayName= "Protime" /> <statusCode code="completed" /> <effectiveTime value="662585668018" /> <value unit="Sec" xsi:type="PQ" value="56.0" / > <interpretationCode codeSystem="local" code="HH" /> < referenceRange> <observationRange> <text>9.9-12.8</text > </observationRange> </referenceRange> </observation > </component> </organizer> </entry> <entry> <organizer moodCode= "EVN" classCode="BATTERY"> <templateId root="2.16.840.1.266323.10..22.4.1 " /> <id nullFlavor="NA" /> <code codeSystem="local" code="ACS9300" displayName="Protime " /> <statusCode code="completed" /> <component> <observation moodCode="EVN" classCode="OBS"> <templateId root= "2.16.840.1.111958.10...4.2" /> <id nullFlavor="NA" /> < code codeSystem="local" code="Scv934" displayName="INR" /> <statusCode code="completed" /> <effectiveTime value="240796916312" /> < value unit="" xsi:type="PQ" value="2.7" /> <referenceRange> <observationRange> <text>1.0-4.0</text> </ observationRange> </referenceRange> </observation> </ component> <component> <observation moodCode="EVN" classCode="OBS"> <templateId root="2.16.840.1.286287.10...4.2" /> <id nullFlavor="NA" /> <code codeSystem="local" code="Gxl9907" displayName= "Protime" /> <statusCode code="completed" /> <effectiveTime value="982995037992" /> <value unit="Sec" xsi:type="PQ" value="31.1" / > <interpretationCode codeSystem="local" code="H" /> < referenceRange> <observationRange> <text>9.9-12.8</text > </observationRange> </referenceRange> </observation > </component> </organizer> </entry> <entry> <organizer moodCode= "EVN" classCode="BATTERY"> <templateId root="16.840.1.069491.10..4.1 " /> <id nullFlavor="NA" /> <code codeSystem="local" code="UMV5289" displayName="iStat BNP" /> <statusCode code="completed" /> <component > <observation moodCode="EVN" classCode="OBS"> <templateId root= "03.28.840.1.794861.11.29.21.4.2" /> <id nullFlavor="NA" /> < code codeSystem="local" code="Cgc260" displayName="i-STAT BNP" /> < statusCode code="completed" /> <effectiveTime value="318482206887" /> <value unit="pg/mL" xsi:type="PQ" value="<15.00" /> < referenceRange> <observationRange> <text>0.00-50.00</ text> </observationRange> </referenceRange> </ observation> </component> </organizer> </entry> <entry> <organizer moodCode="EVN" classCode="BATTERY"> <templateId root= "03.28.840.1.710173.11.29.21.4.1" /> <id nullFlavor="NA" /> <code codeSystem="local" code="SYJ373" displayName="Influenza" /> <statusCode code="completed" /> <component> <observation moodCode="EVN" classCode="OBS"> <templateId root="03.28.840.1.995628.11.29.21.4.2" /> <id nullFlavor="NA" /> <code codeSystem="local" code="Tyw177" displayName="Influenza" /> <statusCode code="completed" /> < effectiveTime value="939380577631" /> <value unit="" xsi:type="PQ" value="POSITIVE FOR A" /> <referenceRange> <observationRange > <text>0.00-0.00</text> </observationRange> </ referenceRange> </observation> </component> </organizer> </entry > <entry> <organizer moodCode="EVN" classCode="BATTERY"> <templateId root="216.840.1.205829.10..22.4.1" /> <id nullFlavor="NA" /> <code codeSystem="local" code="TKM8449" displayName="Blood Culture" /> < statusCode code="completed" /> <component> <observation moodCode= "EVN" classCode="OBS"> <templateId root="216.840.1.448293.10...4.2 " /> <id nullFlavor="NA" /> <code codeSystem="local" code= "Yzz7447" displayName="PRELIM CULTURE RESULTS" /> <statusCode code= "completed" /> <effectiveTime value="653394513380" /> <value unit="" xsi:type="PQ" value="Blood Culture Negative, No Growth Day 1" /> <referenceRange> <observationRange> <text /> </observationRange> </referenceRange> </observation> </ component> <component> <observation moodCode="EVN" classCode="OBS"> <templateId root="16.840.1.589356.10..22.4.2" /> <id nullFlavor="NA" /> <code codeSystem="local" code="Wmd0111" displayName= "FINAL CULTURE RESULTS" /> <statusCode code="completed" /> < effectiveTime value="329585421477" /> <value unit="" xsi:type="PQ" value="Blood Culture Negative, No Growth Day 5" /> <referenceRange> <observationRange> <text /> </observationRange > </referenceRange> </observation> </component> < component> <observation moodCode="EVN" classCode="OBS"> < templateId root="216.840.1.634610.10..4.2" /> <id nullFlavor="NA " /> <code codeSystem="local" code="Opd7155" displayName="MEDIA PLATED " /> <statusCode code="completed" /> <effectiveTime value= "841382795256" /> <value unit="" xsi:type="PQ" value="Setup at 12:50 on 04/03/2017, Blood Culture Media Position C45" /> <referenceRange> <observationRange> <text /> </observationRange > </referenceRange> </observation> </component> < component> <observation moodCode="EVN" classCode="OBS"> < templateId root="16.840.1.574073.11.29.21.4.2" /> <id nullFlavor="NA " /> <code codeSystem="local" code="Lil1761" displayName="CULTURE SOURCE" /> <statusCode code="completed" /> <effectiveTime value="963096198834" /> <value unit="" xsi:type="PQ" value="Left AC" / > <referenceRange> <observationRange> <text /> </observationRange> </referenceRange> </observation > </component> </organizer> </entry> <entry> <organizer moodCode= "EVN" classCode="BATTERY"> <templateId root="216.840.1.018764.10..4.1 " /> <id nullFlavor="NA" /> <code codeSystem="local" code="VRR3429" displayName="Blood Culture" /> <statusCode code="completed" /> < component> <observation moodCode="EVN" classCode="OBS"> < templateId root="2.16.840.1.486281.10..22.4.2" /> <id nullFlavor="NA " /> <code codeSystem="local" code="Mvi1578" displayName="PRELIM CULTURE RESULTS" /> <statusCode code="completed" /> < effectiveTime value="569776879097" /> <value unit="" xsi:type="PQ" value="Blood Culture Negative, No Growth Day 1" /> <referenceRange> <observationRange> <text /> </observationRange > </referenceRange> </observation> </component> < component> <observation moodCode="EVN" classCode="OBS"> < templateId root="216.840.1.046648.10...4.2" /> <id nullFlavor="NA " /> <code codeSystem="local" code="Jsa3597" displayName="FINAL CULTURE RESULTS" /> <statusCode code="completed" /> < effectiveTime value="123360926926" /> <value unit="" xsi:type="PQ" value="Blood Culture Negative, No Growth Day 5" /> <referenceRange> <observationRange> <text /> </observationRange > </referenceRange> </observation> </component> < component> <observation moodCode="EVN" classCode="OBS"> < templateId root="216.840.1.477840.10..22.4.2" /> <id nullFlavor="NA " /> <code codeSystem="local" code="Irv9319" displayName="MEDIA PLATED " /> <statusCode code="completed" /> <effectiveTime value= "551404186546" /> <value unit="" xsi:type="PQ" value="Setup at 12:51 on 04/03/2017, Blood Culture Media Position C41" /> <referenceRange> <observationRange> <text /> </observationRange > </referenceRange> </observation> </component> < component> <observation moodCode="EVN" classCode="OBS"> < templateId root="16.840.1.358076.10..22.4.2" /> <id nullFlavor="NA " /> <code codeSystem="local" code="Ead5041" displayName="CULTURE SOURCE" /> <statusCode code="completed" /> <effectiveTime value="333032010534" /> <value unit="" xsi:type="PQ" value="right hand , bcul#2" /> <referenceRange> <observationRange> <text /> </observationRange> </referenceRange> </ observation> </component> </organizer> </entry> <entry> <organizer moodCode="EVN" classCode="BATTERY"> <templateId root= "16.840.1.295048.10..22.4.1" /> <id nullFlavor="NA" /> <code codeSystem="local" code="ORD68" displayName="Urinalysis" /> <statusCode code="completed" /> <component> <observation moodCode="EVN" classCode="OBS"> <templateId root="216.840.1.739001.10..22.4.2" /> <id nullFlavor="NA" /> <code codeSystem="local" code="Vjy9221 " displayName="Icotest" /> <statusCode code="completed" /> < effectiveTime value="460739009483" /> <value unit="" xsi:type="PQ" value="N/A" /> <interpretationCode codeSystem="local" code="A" /> <referenceRange> <observationRange> <text>Negative< /text> </observationRange> </referenceRange> </ observation> </component> <component> <observation moodCode= "EVN" classCode="OBS"> <templateId root="216.840.1.418357.10..22.4.2 " /> <id nullFlavor="NA" /> <code codeSystem="local" code= "Ize879" displayName="Urine Volume" /> <statusCode code="completed" /> <effectiveTime value="" /> <value unit="" xsi: type="PQ" value="Urine Volume Sufficient (10mL)" /> <referenceRange> <observationRange> <text /> </observationRange > </referenceRange> </observation> </component> < component> <observation moodCode="EVN" classCode="OBS"> < templateId root="216.840.1.936511.10...4.2" /> <id nullFlavor="NA " /> <code codeSystem="local" code="Fwf749" displayName="Urine Yeast" / > <statusCode code="completed" /> <effectiveTime value= "" /> <value unit="" xsi:type="PQ" value="No Yeast present " /> <referenceRange> <observationRange> <text /> </observationRange> </referenceRange> </ observation> </component> <component> <observation moodCode= "EVN" classCode="OBS"> <templateId root="216.840.1.757495.10...4.2 " /> <id nullFlavor="NA" /> <code codeSystem="local" code= "Zua005" displayName="Urine-Appearance" /> <statusCode code="completed " /> <effectiveTime value="" /> <value unit="" xsi :type="PQ" value="Clear" /> <referenceRange> < observationRange> <text>Clear</text> </observationRange > </referenceRange> </observation> </component> < component> <observation moodCode="EVN" classCode="OBS"> < templateId root="216.840.1.204855.11.29.21.4.2" /> <id nullFlavor="NA " /> <code codeSystem="local" code="Yiy615" displayName="Urine-Bacteria " /> <statusCode code="completed" /> <effectiveTime value= "" /> <value unit="" xsi:type="PQ" value="Trace" /> <interpretationCode codeSystem="local" code="A" /> <referenceRange> <observationRange> <text> </text> </ observationRange> </referenceRange> </observation> </ component> <component> <observation moodCode="EVN" classCode="OBS"> <templateId root="16.840.1.064001.11.29.21.4.2" /> <id nullFlavor="NA" /> <code codeSystem="local" code="Rrb653" displayName= "Urine-Bilirubin" /> <statusCode code="completed" /> < effectiveTime value="" /> <value unit="" xsi:type="PQ" value="Negative" /> <referenceRange> <observationRange> <text>Negative</text> </observationRange> </ referenceRange> </observation> </component> <component> <observation moodCode="EVN" classCode="OBS"> <templateId root= "216.840.1.162603.11.29.21.4.2" /> <id nullFlavor="NA" /> < code codeSystem="local" code="Zev591" displayName="Urine-Blood" /> < statusCode code="completed" /> <effectiveTime value="" /> <value unit="" xsi:type="PQ" value="Negative" /> < referenceRange> <observationRange> <text>Negative</text > </observationRange> </referenceRange> </observation > </component> <component> <observation moodCode="EVN" classCode="OBS"> <templateId root="16.840.1.482699.10.20.22.4.2" /> <id nullFlavor="NA" /> <code codeSystem="local" code="Svj072" displayName="Urine-Color" /> <statusCode code="completed" /> < effectiveTime value="" /> <value unit="" xsi:type="PQ" value="Yellow" /> <referenceRange> <observationRange> <text>Colorless-Lt. Yellow</text> </observationRange> </referenceRange> </observation> </component> <component> <observation moodCode="EVN" classCode="OBS"> <templateId root= "03.28.840.1.587548.10..22.4.2" /> <id nullFlavor="NA" /> < code codeSystem="local" code="Ldo412" displayName="Urine-Epithelial Cells" /> <statusCode code="completed" /> <effectiveTime value= "" /> <value unit="" xsi:type="PQ" value="0-5/HPF" /> <interpretationCode codeSystem="local" code="A" /> <referenceRange > <observationRange> <text> </text> </ observationRange> </referenceRange> </observation> </ component> <component> <observation moodCode="EVN" classCode="OBS"> <templateId root="03.28.840.1.935705.10.20.22.4.2" /> <id nullFlavor="NA" /> <code codeSystem="local" code="Gwi853" displayName= "Urine-Glucose" /> <statusCode code="completed" /> < effectiveTime value="" /> <value unit="" xsi:type="PQ" value="Negative" /> <referenceRange> <observationRange> <text>Negative</text> </observationRange> </ referenceRange> </observation> </component> <component> <observation moodCode="EVN" classCode="OBS"> <templateId root= "216.840.1.155977.10.4.2" /> <id nullFlavor="NA" /> < code codeSystem="local" code="Pej179" displayName="Urine-Ketones" /> < statusCode code="completed" /> <effectiveTime value="" /> <value unit="" xsi:type="PQ" value="Negative" /> < referenceRange> <observationRange> <text>Negative</text > </observationRange> </referenceRange> </observation > </component> <component> <observation moodCode="EVN" classCode="OBS"> <templateId root="216.840.1.296741.11.29.21.4.2" /> <id nullFlavor="NA" /> <code codeSystem="local" code="Imc424" displayName="Urine-Leukocytes" /> <statusCode code="completed" /> <effectiveTime value="" /> <value unit="" xsi:type="PQ " value="Negative" /> <referenceRange> <observationRange> <text>Negative</text> </observationRange> </ referenceRange> </observation> </component> <component> <observation moodCode="EVN" classCode="OBS"> <templateId root= "216.840.1.795101...4.2" /> <id nullFlavor="NA" /> < code codeSystem="local" code="Upy413" displayName="Urine-Nitrite" /> < statusCode code="completed" /> <effectiveTime value="" /> <value unit="" xsi:type="PQ" value="Negative" /> < referenceRange> <observationRange> <text>Negative</text > </observationRange> </referenceRange> </observation > </component> <component> <observation moodCode="EVN" classCode="OBS"> <templateId root="2.16.840.1.249936.10.20.22.4.2" /> <id nullFlavor="NA" /> <code codeSystem="local" code="Xke885" displayName="Urine-Other" /> <statusCode code="completed" /> < effectiveTime value="" /> <value unit="" xsi:type="PQ" value=" Urine Saved if Culture Needed (48hrs from time of collection)" /> <interpretationCode codeSystem="local" code="A" /> <referenceRange > <observationRange> <text> </text> </ observationRange> </referenceRange> </observation> </ component> <component> <observation moodCode="EVN" classCode="OBS"> <templateId root="2.16.840.1.320425.10..22.4.2" /> <id nullFlavor="NA" /> <code codeSystem="local" code="Lih941" displayName= "Urine-pH" /> <statusCode code="completed" /> <effectiveTime value="" /> <value unit="" xsi:type="PQ" value="8.0" /> <referenceRange> <observationRange> <text>5-8.5</ text> </observationRange> </referenceRange> </ observation> </component> <component> <observation moodCode= "EVN" classCode="OBS"> <templateId root="216.840.1.117639.10.20.22.4.2 " /> <id nullFlavor="NA" /> <code codeSystem="local" code= "Ptl203" displayName="Urine-Protein" /> <statusCode code="completed" / > <effectiveTime value="920002947459" /> <value unit="" xsi: type="PQ" value="Negative" /> <referenceRange> < observationRange> <text>Negative</text> </ observationRange> </referenceRange> </observation> </ component> <component> <observation moodCode="EVN" classCode="OBS"> <templateId root="216.840.1.155480.10.22.4.2" /> <id nullFlavor="NA" /> <code codeSystem="local" code="Wou878" displayName= "Urine-RBC" /> <statusCode code="completed" /> <effectiveTime value="" /> <value unit="" xsi:type="PQ" value="Rare/HPF" / > <interpretationCode codeSystem="local" code="A" /> < referenceRange> <observationRange> <text> </text> </observationRange> </referenceRange> </observation> </component> <component> <observation moodCode="EVN" classCode="OBS "> <templateId root="16.840.1.592645.10.2022.4.2" /> <id nullFlavor="NA" /> <code codeSystem="local" code="Elm271" displayName= "Urine-Specific [place]" /> <statusCode code="completed" /> < effectiveTime value="911717018196" /> <value unit="" xsi:type="PQ" value="1.020" /> <referenceRange> <observationRange> <text>1.000-1.030</text> </observationRange> </ referenceRange> </observation> </component> <component> <observation moodCode="EVN" classCode="OBS"> <templateId root= "216.840.1.257531.10...4.2" /> <id nullFlavor="NA" /> < code codeSystem="local" code="Chy398" displayName="Urine-WBC" /> < statusCode code="completed" /> <effectiveTime value="" /> <value unit="" xsi:type="PQ" value="Negative" /> < referenceRange> <observationRange> <text> </text> </observationRange> </referenceRange> </observation> </component> <component> <observation moodCode="EVN" classCode="OBS "> <templateId root="216.840.1.935615.11.29.21.4.2" /> <id nullFlavor="NA" /> <code codeSystem="local" code="Kfs358" displayName= "Urobilinogen" /> <statusCode code="completed" /> < effectiveTime value="" /> <value unit="" xsi:type="PQ" value="0.2 E.U./dL" /> <interpretationCode codeSystem="local" code="A" /> <referenceRange> <observationRange> <text> 0.2-1.0</text> </observationRange> </referenceRange> </observation> </component> </organizer> </entry> <entry> < organizer moodCode="EVN" classCode="BATTERY"> <templateId root= "216.840.1.860108.10..4.1" /> <id nullFlavor="NA" /> <code codeSystem="local" code="XKQ1093" displayName="Protime " /> <statusCode code="completed" /> <component> <observation moodCode="EVN" classCode="OBS"> <templateId root="216.840.1.008350.10..4.2" /> <id nullFlavor="NA" /> <code codeSystem="local" code="Lzi002" displayName="INR" /> <statusCode code="completed" /> < effectiveTime value="" /> <value unit="" xsi:type="PQ" value="1.7" /> <referenceRange> <observationRange> <text>1.0-4.0</text> </observationRange> </ referenceRange> </observation> </component> <component> <observation moodCode="EVN" classCode="OBS"> <templateId root= "216.840.1.272373.11.29.21.4.2" /> <id nullFlavor="NA" /> < code codeSystem="local" code="Ckk0701" displayName="Protime" /> < statusCode code="completed" /> <effectiveTime value="" /> <value unit="Sec" xsi:type="PQ" value="19.7" /> < interpretationCode codeSystem="local" code="H" /> <referenceRange> <observationRange> <text>9.9-12.8</text> </ observationRange> </referenceRange> </observation> </ component> </organizer> </entry> <entry> <organizer moodCode="EVN" classCode="BATTERY"> <templateId root="2.16.840.1.946859.10..4.1" /> <id nullFlavor="NA" /> <code codeSystem="local" code="JTO0500" displayName="Protime " /> <statusCode code="completed" /> <component> <observation moodCode="EVN" classCode="OBS"> <templateId root= "216.840.1.537787.10..4.2" /> <id nullFlavor="NA" /> < code codeSystem="local" code="Qtk683" displayName="INR" /> <statusCode code="completed" /> <effectiveTime value="575038154020" /> < value unit="" xsi:type="PQ" value="1.7" /> <referenceRange> <observationRange> <text>1.0-4.0</text> </ observationRange> </referenceRange> </observation> </ component> <component> <observation moodCode="EVN" classCode="OBS"> <templateId root="216.840.1.163270.11.29.21.4.2" /> <id nullFlavor="NA" /> <code codeSystem="local" code="Hxi5228" displayName= "Protime" /> <statusCode code="completed" /> <effectiveTime value="687094047276" /> <value unit="Sec" xsi:type="PQ" value="20.3" / > <interpretationCode codeSystem="local" code="H" /> < referenceRange> <observationRange> <text>9.9-12.8</text > </observationRange> </referenceRange> </observation > </component> </organizer> </entry> <entry> <organizer moodCode= "EVN" classCode="BATTERY"> <templateId root="216.840.1.533636.10..4.1 " /> <id nullFlavor="NA" /> <code codeSystem="local" code="LWA7947" displayName="Protime " /> <statusCode code="completed" /> <component> <observation moodCode="EVN" classCode="OBS"> <templateId root= "840.1.855884.10.20.22.4.2" /> <id nullFlavor="NA" /> < code codeSystem="local" code="Owf823" displayName="INR" /> <statusCode code="completed" /> <effectiveTime value="691119870695" /> < value unit="" xsi:type="PQ" value="2.0" /> <referenceRange> <observationRange> <text>1.0-4.0</text> </ observationRange> </referenceRange> </observation> </ component> <component> <observation moodCode="EVN" classCode="OBS"> <templateId root="840.1.381659.10.4.2" /> <id nullFlavor="NA" /> <code codeSystem="local" code="Bgw1438" displayName= "Protime" /> <statusCode code="completed" /> <effectiveTime value="116537407002" /> <value unit="Sec" xsi:type="PQ" value="23.5" / > <interpretationCode codeSystem="local" code="H" /> < referenceRange> <observationRange> <text>9.9-12.8</text > </observationRange> </referenceRange> </observation > </component> </organizer> </entry> <entry> <organizer moodCode= "EVN" classCode="BATTERY"> <templateId root="03.28.840.1.439066.10.2022.4.1 " /> <id nullFlavor="NA" /> <code codeSystem="local" code="ORD68" displayName="Urinalysis" /> <statusCode code="completed" /> <component > <observation moodCode="EVN" classCode="OBS"> <templateId root= ".1.077438.10..22.4.2" /> <id nullFlavor="NA" /> < code codeSystem="local" code="Kwb7840" displayName="Icotest" /> < statusCode code="completed" /> <effectiveTime value="901060244921" /> <value unit="" xsi:type="PQ" value="N/A" /> < interpretationCode codeSystem="local" code="A" /> <referenceRange> <observationRange> <text>Negative</text> </ observationRange> </referenceRange> </observation> </ component> <component> <observation moodCode="EVN" classCode="OBS"> <templateId root="216.840.1.842637.10..4.2" /> <id nullFlavor="NA" /> <code codeSystem="local" code="Ptq615" displayName= "Urine Volume" /> <statusCode code="completed" /> < effectiveTime value="192727077384" /> <value unit="" xsi:type="PQ" value="Urine Volume Sufficient (10mL)" /> <referenceRange> < observationRange> <text /> </observationRange> </referenceRange> </observation> </component> <component> <observation moodCode="EVN" classCode="OBS"> <templateId root= "216.840.1.398742.10..22.4.2" /> <id nullFlavor="NA" /> < code codeSystem="local" code="Qyc867" displayName="Urine Yeast" /> < statusCode code="completed" /> <effectiveTime value="997184942643" /> <value unit="" xsi:type="PQ" value="No Yeast present" /> < referenceRange> <observationRange> <text /> < /observationRange> </referenceRange> </observation> </ component> <component> <observation moodCode="EVN" classCode="OBS"> <templateId root="216.840.1.304802.10..4.2" /> <id nullFlavor="NA" /> <code codeSystem="local" code="Zdx140" displayName= "Urine-Appearance" /> <statusCode code="completed" /> < effectiveTime value="547053910683" /> <value unit="" xsi:type="PQ" value="Clear" /> <referenceRange> <observationRange> <text>Clear</text> </observationRange> </ referenceRange> </observation> </component> <component> <observation moodCode="EVN" classCode="OBS"> <templateId root= "216.840.1.815588...4.2" /> <id nullFlavor="NA" /> < code codeSystem="local" code="Efv994" displayName="Urine-Bacteria" /> < statusCode code="completed" /> <effectiveTime value="072109782135" /> <value unit="" xsi:type="PQ" value="Trace" /> < interpretationCode codeSystem="local" code="A" /> <referenceRange> <observationRange> <text> </text> </ observationRange> </referenceRange> </observation> </ component> <component> <observation moodCode="EVN" classCode="OBS"> <templateId root="16.840.1.945989.10...4.2" /> <id nullFlavor="NA" /> <code codeSystem="local" code="Gjf790" displayName= "Urine-Bilirubin" /> <statusCode code="completed" /> < effectiveTime value="297206700047" /> <value unit="" xsi:type="PQ" value="Negative" /> <referenceRange> <observationRange> <text>Negative</text> </observationRange> </ referenceRange> </observation> </component> <component> <observation moodCode="EVN" classCode="OBS"> <templateId root= "16.840.1.606757.10.22.4.2" /> <id nullFlavor="NA" /> < code codeSystem="local" code="Bgi463" displayName="Urine-Blood" /> < statusCode code="completed" /> <effectiveTime value="488612337889" /> <value unit="" xsi:type="PQ" value="Trace-lysed" /> < interpretationCode codeSystem="local" code="A" /> <referenceRange> <observationRange> <text>Negative</text> </ observationRange> </referenceRange> </observation> </ component> <component> <observation moodCode="EVN" classCode="OBS"> <templateId root="03.28.840.1.247793.10.4.2" /> <id nullFlavor="NA" /> <code codeSystem="local" code="Nvz892" displayName= "Urine-Color" /> <statusCode code="completed" /> < effectiveTime value="800579399525" /> <value unit="" xsi:type="PQ" value="Yellow" /> <referenceRange> <observationRange> <text>Colorless-Lt. Yellow</text> </observationRange> </referenceRange> </observation> </component> <component> <observation moodCode="EVN" classCode="OBS"> <templateId root= "03.28.840.1.880122.22.4.2" /> <id nullFlavor="NA" /> < code codeSystem="local" code="Uyg957" displayName="Urine-Epithelial Cells" /> <statusCode code="completed" /> <effectiveTime value= "714777889223" /> <value unit="" xsi:type="PQ" value="0-5/HPF" /> <interpretationCode codeSystem="local" code="A" /> <referenceRange > <observationRange> <text> </text> </ observationRange> </referenceRange> </observation> </ component> <component> <observation moodCode="EVN" classCode="OBS"> <templateId root="03.28.840.1.069605.1022.4.2" /> <id nullFlavor="NA" /> <code codeSystem="local" code="Khr181" displayName= "Urine-Glucose" /> <statusCode code="completed" /> < effectiveTime value="740087807613" /> <value unit="" xsi:type="PQ" value="Negative" /> <referenceRange> <observationRange> <text>Negative</text> </observationRange> </ referenceRange> </observation> </component> <component> <observation moodCode="EVN" classCode="OBS"> <templateId root= "03.28.840.1.273651.11.29.21.4.2" /> <id nullFlavor="NA" /> < code codeSystem="local" code="Wob264" displayName="Urine-Ketones" /> < statusCode code="completed" /> <effectiveTime value="955531071908" /> <value unit="" xsi:type="PQ" value="Negative" /> < referenceRange> <observationRange> <text>Negative</text > </observationRange> </referenceRange> </observation > </component> <component> <observation moodCode="EVN" classCode="OBS"> <templateId root="16.840.1.059225.1022.4.2" /> <id nullFlavor="NA" /> <code codeSystem="local" code="Wlj460" displayName="Urine-Leukocytes" /> <statusCode code="completed" /> <effectiveTime value="317912805272" /> <value unit="" xsi:type="PQ " value="Negative" /> <referenceRange> <observationRange> <text>Negative</text> </observationRange> </ referenceRange> </observation> </component> <component> <observation moodCode="EVN" classCode="OBS"> <templateId root= "2.16.840.1.687795.10..22.4.2" /> <id nullFlavor="NA" /> < code codeSystem="local" code="Ioc096" displayName="Urine-Nitrite" /> < statusCode code="completed" /> <effectiveTime value="133480740419" /> <value unit="" xsi:type="PQ" value="Negative" /> < referenceRange> <observationRange> <text>Negative</text > </observationRange> </referenceRange> </observation > </component> <component> <observation moodCode="EVN" classCode="OBS"> <templateId root="2.16.840.1.972711.10.20.22.4.2" /> <id nullFlavor="NA" /> <code codeSystem="local" code="Ack506" displayName="Urine-Other" /> <statusCode code="completed" /> < effectiveTime value="663688080050" /> <value unit="" xsi:type="PQ" value=" Urine Saved if Culture Needed (48hrs from time of collection)" /> <interpretationCode codeSystem="local" code="A" /> <referenceRange > <observationRange> <text> </text> </ observationRange> </referenceRange> </observation> </ component> <component> <observation moodCode="EVN" classCode="OBS"> <templateId root="16.840.1.486481.10.22.4.2" /> <id nullFlavor="NA" /> <code codeSystem="local" code="Rqm593" displayName= "Urine-pH" /> <statusCode code="completed" /> <effectiveTime value="" /> <value unit="" xsi:type="PQ" value="6.0" /> <referenceRange> <observationRange> <text>5-8.5</ text> </observationRange> </referenceRange> </ observation> </component> <component> <observation moodCode= "EVN" classCode="OBS"> <templateId root="03.28.840.1.700639.10.4.2 " /> <id nullFlavor="NA" /> <code codeSystem="local" code= "Yai524" displayName="Urine-Protein" /> <statusCode code="completed" / > <effectiveTime value="" /> <value unit="" xsi: type="PQ" value="Negative" /> <referenceRange> < observationRange> <text>Negative</text> </ observationRange> </referenceRange> </observation> </ component> <component> <observation moodCode="EVN" classCode="OBS"> <templateId root="03.28.840.1.101357.1022.4.2" /> <id nullFlavor="NA" /> <code codeSystem="local" code="Zjv124" displayName= "Urine-RBC" /> <statusCode code="completed" /> <effectiveTime value="" /> <value unit="" xsi:type="PQ" value="Rare/HPF" / > <interpretationCode codeSystem="local" code="A" /> < referenceRange> <observationRange> <text> </text> </observationRange> </referenceRange> </observation> </component> <component> <observation moodCode="EVN" classCode="OBS "> <templateId root="216.840.1.729922.11.29.21.4.2" /> <id nullFlavor="NA" /> <code codeSystem="local" code="Rka983" displayName= "Urine-Specific [place]" /> <statusCode code="completed" /> < effectiveTime value="441673414826" /> <value unit="" xsi:type="PQ" value="1.015" /> <referenceRange> <observationRange> <text>1.000-1.030</text> </observationRange> </ referenceRange> </observation> </component> <component> <observation moodCode="EVN" classCode="OBS"> <templateId root= "16.840.1.599932.11.29.21.4.2" /> <id nullFlavor="NA" /> < code codeSystem="local" code="Rgn311" displayName="Urine-WBC" /> < statusCode code="completed" /> <effectiveTime value="181111006049" /> <value unit="" xsi:type="PQ" value="Negative" /> < referenceRange> <observationRange> <text> </text> </observationRange> </referenceRange> </observation> </component> <component> <observation moodCode="EVN" classCode="OBS "> <templateId root="216.840.1.232884.11.29.21.4.2" /> <id nullFlavor="NA" /> <code codeSystem="local" code="Vny892" displayName= "Urobilinogen" /> <statusCode code="completed" /> < effectiveTime value="053389148707" /> <value unit="" xsi:type="PQ" value="0.2 E.U./dL" /> <interpretationCode codeSystem="local" code="A" /> <referenceRange> <observationRange> <text> 0.2-1.0</text> </observationRange> </referenceRange> </observation> </component> </organizer> </entry> <entry> < organizer moodCode="EVN" classCode="BATTERY"> <templateId root= "03.28.840.1.941293.1022.4.1" /> <id nullFlavor="NA" /> <code codeSystem="local" code="KFY1443" displayName="Protime " /> <statusCode code="completed" /> <component> <observation moodCode="EVN" classCode="OBS"> <templateId root="03.28.840.1.176677.11.29.21.4.2" /> <id nullFlavor="NA" /> <code codeSystem="local" code="Jch229" displayName="INR" /> <statusCode code="completed" /> < effectiveTime value="415102148957" /> <value unit="" xsi:type="PQ" value="2.1" /> <referenceRange> <observationRange> <text>1.0-4.0</text> </observationRange> </ referenceRange> </observation> </component> <component> <observation moodCode="EVN" classCode="OBS"> <templateId root= "03.28.840.1.496522.1022.4.2" /> <id nullFlavor="NA" /> < code codeSystem="local" code="Kyp1795" displayName="Protime" /> < statusCode code="completed" /> <effectiveTime value="610402137169" /> <value unit="Sec" xsi:type="PQ" value="24.6" /> < interpretationCode codeSystem="local" code="H" /> <referenceRange> <observationRange> <text>9.9-12.8</text> </ observationRange> </referenceRange> </observation> </ component> </organizer> </entry> <entry> <organizer moodCode="EVN" classCode="BATTERY"> <templateId root="16.840.1.184996.10..22.4.1" /> <id nullFlavor="NA" /> <code codeSystem="local" code="ORD66" displayName="Sed Rate" /> <statusCode code="completed" /> <component> <observation moodCode="EVN" classCode="OBS"> <templateId root= "16.840.1.333641.10..22.4.2" /> <id nullFlavor="NA" /> < code codeSystem="local" code="Res72" displayName="Sed Rate" /> < statusCode code="completed" /> <effectiveTime value="088092750367" /> <value unit="mm/hr" xsi:type="PQ" value="27" /> < interpretationCode codeSystem="local" code="H" /> <referenceRange> <observationRange> <text>9-15</text> </ observationRange> </referenceRange> </observation> </ component> </organizer> </entry> <entry> <organizer moodCode="EVN" classCode="BATTERY"> <templateId root="16.840.1.507809.10...4.1" /> <id nullFlavor="NA" /> <code codeSystem="local" code="KKQ7468" displayName="Protime " /> <statusCode code="completed" /> <component> <observation moodCode="EVN" classCode="OBS"> <templateId root= "03.28.840.1.219788.10.2022.4.2" /> <id nullFlavor="NA" /> < code codeSystem="local" code="Mej340" displayName="INR" /> <statusCode code="completed" /> <effectiveTime value="318833587526" /> < value unit="" xsi:type="PQ" value="2.5" /> <referenceRange> <observationRange> <text>1.0-4.0</text> </ observationRange> </referenceRange> </observation> </ component> <component> <observation moodCode="EVN" classCode="OBS"> <templateId root="840.1.615871.10.4.2" /> <id nullFlavor="NA" /> <code codeSystem="local" code="Dwc0220" displayName= "Protime" /> <statusCode code="completed" /> <effectiveTime value="872129547639" /> <value unit="Sec" xsi:type="PQ" value="29.1" / > <interpretationCode codeSystem="local" code="H" /> < referenceRange> <observationRange> <text>9.9-12.8</text > </observationRange> </referenceRange> </observation > </component> </organizer> </entry> <entry> <organizer moodCode= "EVN" classCode="BATTERY"> <templateId root="840.1.462064.102022.4.1 " /> <id nullFlavor="NA" /> <code codeSystem="local" code="JRB711" displayName="iStat Protime" /> <statusCode code="completed" /> < component> <observation moodCode="EVN" classCode="OBS"> < templateId root="840.1.118434.22.4.2" /> <id nullFlavor="NA " /> <code codeSystem="local" code="Ypk262" displayName="INR" /> <statusCode code="completed" /> <effectiveTime value="604877078130 " /> <value unit="" xsi:type="PQ" value="2.3" /> < referenceRange> <observationRange> <text>1.0-4.0</text> </observationRange> </referenceRange> </observation > </component> <component> <observation moodCode="EVN" classCode="OBS"> <templateId root="840.1.102549.11.29.21.4.2" /> <id nullFlavor="NA" /> <code codeSystem="local" code="Afd276* " displayName="Protime" /> <statusCode code="completed" /> < effectiveTime value="317193669878" /> <value unit="Sec" xsi:type="PQ" value="26.9" /> <interpretationCode codeSystem="local" code="H" /> <referenceRange> <observationRange> <text>11.0- 13.0</text> </observationRange> </referenceRange> </ observation> </component> </organizer> </entry> <entry> <organizer moodCode="EVN" classCode="BATTERY"> <templateId root= "840.1.362708.22.4.1" /> <id nullFlavor="NA" /> <code codeSystem="local" code="ORD3" displayName="Comprehensive Metabolic Panel" /> <statusCode code="completed" /> <component> <observation moodCode="EVN" classCode="OBS"> <templateId root= "840.1.109178.11.29.21.4.2" /> <id nullFlavor="NA" /> < code codeSystem="local" code="Res44" displayName="Albumin" /> < statusCode code="completed" /> <effectiveTime value="129069291899" /> <value unit="g/dL" xsi:type="PQ" value="3.6" /> < referenceRange> <observationRange> <text>3.6-5.1</text> </observationRange> </referenceRange> </observation > </component> <component> <observation moodCode="EVN" classCode="OBS"> <templateId root="216.840.1.611174.11.29.21.4.2" /> <id nullFlavor="NA" /> <code codeSystem="local" code="Res45" displayName="ALP" /> <statusCode code="completed" /> < effectiveTime value="975577971113" /> <value unit="U/L" xsi:type="PQ" value="117" /> <referenceRange> <observationRange> <text>35-130</text> </observationRange> </ referenceRange> </observation> </component> <component> <observation moodCode="EVN" classCode="OBS"> <templateId root= "2.16.840.1.822146.11.29.21.4.2" /> <id nullFlavor="NA" /> < code codeSystem="local" code="Res46" displayName="ALT" /> <statusCode code="completed" /> <effectiveTime value="302223274937" /> < value unit="U/L" xsi:type="PQ" value="26" /> <referenceRange> <observationRange> <text>6-45</text> </ observationRange> </referenceRange> </observation> </ component> <component> <observation moodCode="EVN" classCode="OBS"> <templateId root="16.840.1.902174.10.20.22.4.2" /> <id nullFlavor="NA" /> <code codeSystem="local" code="Res61" displayName= "Anion Gap" /> <statusCode code="completed" /> <effectiveTime value="702636693414" /> <value unit="" xsi:type="PQ" value="20" /> <interpretationCode codeSystem="local" code="H" /> < referenceRange> <observationRange> <text>6-14</text> </observationRange> </referenceRange> </observation> </component> <component> <observation moodCode="EVN" classCode= "OBS"> <templateId root="03.28.840.1.744810.10...4.2" /> < id nullFlavor="NA" /> <code codeSystem="local" code="Res48" displayName ="AST" /> <statusCode code="completed" /> <effectiveTime value ="102954211877" /> <value unit="U/L" xsi:type="PQ" value="47" /> <interpretationCode codeSystem="local" code="H" /> <referenceRange > <observationRange> <text>2-40</text> </ observationRange> </referenceRange> </observation> </ component> <component> <observation moodCode="EVN" classCode="OBS"> <templateId root="03.28.840.1.379035.10.20.22.4.2" /> <id nullFlavor="NA" /> <code codeSystem="local" code="Res26" displayName= "BUN" /> <statusCode code="completed" /> <effectiveTime value= "853996018076" /> <value unit="mg/dL" xsi:type="PQ" value="12" /> <referenceRange> <observationRange> <text>5-25</ text> </observationRange> </referenceRange> </ observation> </component> <component> <observation moodCode= "EVN" classCode="OBS"> <templateId root="216.840.1.291630.10.2022.4.2 " /> <id nullFlavor="NA" /> <code codeSystem="local" code= "Res5" displayName="Calcium" /> <statusCode code="completed" /> <effectiveTime value="827401644673" /> <value unit="mg/dL" xsi:type= "PQ" value="8.9" /> <referenceRange> <observationRange> <text>8.3-10.4</text> </observationRange> </ referenceRange> </observation> </component> <component> <observation moodCode="EVN" classCode="OBS"> <templateId root= "03.28.840.1.723069.10.22.4.2" /> <id nullFlavor="NA" /> < code codeSystem="local" code="Res21" displayName="Chloride" /> < statusCode code="completed" /> <effectiveTime value="549185001261" /> <value unit="mmol/L" xsi:type="PQ" value="103" /> < referenceRange> <observationRange> <text>95-114</text> </observationRange> </referenceRange> </observation> </component> <component> <observation moodCode="EVN" classCode ="OBS"> <templateId root="03.28.840.1.535876.10.2022.4.2" /> < id nullFlavor="NA" /> <code codeSystem="local" code="Res49" displayName ="CO2" /> <statusCode code="completed" /> <effectiveTime value ="652934948064" /> <value unit="mEq/L" xsi:type="PQ" value="24" /> <referenceRange> <observationRange> <text>22-33</ text> </observationRange> </referenceRange> </ observation> </component> <component> <observation moodCode= "EVN" classCode="OBS"> <templateId root="216.840.1.225647.10...4.2 " /> <id nullFlavor="NA" /> <code codeSystem="local" code= "Red218" displayName="Creat" /> <statusCode code="completed" /> <effectiveTime value="912074566936" /> <value unit="mg/dL" xsi:type= "PQ" value="0.66" /> <referenceRange> <observationRange> <text>0.50-1.50</text> </observationRange> </ referenceRange> </observation> </component> <component> <observation moodCode="EVN" classCode="OBS"> <templateId root= "2.840.1.452526.10..4.2" /> <id nullFlavor="NA" /> < code codeSystem="local" code="Nrg561" displayName="eGFR" /> < statusCode code="completed" /> <effectiveTime value="449738611812" /> <value unit="mL/min/1.73m2" xsi:type="PQ" value="89" /> < referenceRange> <observationRange> <text>>59</text> </observationRange> </referenceRange> </observation> </component> <component> <observation moodCode="EVN" classCode ="OBS"> <templateId root="216.840.1.209241.10..22.4.2" /> < id nullFlavor="NA" /> <code codeSystem="local" code="Res7" displayName= "Globulin" /> <statusCode code="completed" /> <effectiveTime value="723748670052" /> <value unit="g/dL" xsi:type="PQ" value="2.8" / > <referenceRange> <observationRange> <text>2.3 -3.5</text> </observationRange> </referenceRange> </ observation> </component> <component> <observation moodCode= "EVN" classCode="OBS"> <templateId root="16.840.1.954894.10.20.22.4.2 " /> <id nullFlavor="NA" /> <code codeSystem="local" code= "Res60" displayName="Glucose" /> <statusCode code="completed" /> <effectiveTime value="080250879419" /> <value unit="mg/dL" xsi:type ="PQ" value="89" /> <referenceRange> <observationRange> <text>70-110</text> </observationRange> </ referenceRange> </observation> </component> <component> <observation moodCode="EVN" classCode="OBS"> <templateId root= "16.840.1.764722.10.20.22.4.2" /> <id nullFlavor="NA" /> < code codeSystem="local" code="Res52" displayName="Osmo" /> <statusCode code="completed" /> <effectiveTime value="299662366101" /> < value unit="" xsi:type="PQ" value="294" /> <referenceRange> <observationRange> <text>280-295</text> </ observationRange> </referenceRange> </observation> </ component> <component> <observation moodCode="EVN" classCode="OBS"> <templateId root="16.840.1.673885.22.4.2" /> <id nullFlavor="NA" /> <code codeSystem="local" code="Res20" displayName= "Potassium" /> <statusCode code="completed" /> <effectiveTime value="701458586100" /> <value unit="mmol/L" xsi:type="PQ" value="4.0" /> <referenceRange> <observationRange> <text> 3.5-5.3</text> </observationRange> </referenceRange> </observation> </component> <component> <observation moodCode= "EVN" classCode="OBS"> <templateId root="216.840.1.274187.11.29.21.4.2 " /> <id nullFlavor="NA" /> <code codeSystem="local" code= "Res19" displayName="Sodium" /> <statusCode code="completed" /> <effectiveTime value="347627957539" /> <value unit="mmol/L" xsi:type ="PQ" value="143" /> <referenceRange> <observationRange> <text>134-148</text> </observationRange> </ referenceRange> </observation> </component> <component> <observation moodCode="EVN" classCode="OBS"> <templateId root= "16.840.1.750198.22.4.2" /> <id nullFlavor="NA" /> < code codeSystem="local" code="Res51" displayName="TBil" /> <statusCode code="completed" /> <effectiveTime value="000056625682" /> < value unit="mg/dL" xsi:type="PQ" value="0.6" /> <referenceRange> <observationRange> <text>0.2-1.2</text> </ observationRange> </referenceRange> </observation> </ component> <component> <observation moodCode="EVN" classCode="OBS"> <templateId root="2.16.840.1.812797.10..22.4.2" /> <id nullFlavor="NA" /> <code codeSystem="local" code="Res24" displayName= "TP" /> <statusCode code="completed" /> <effectiveTime value= "300608560467" /> <value unit="g/dL" xsi:type="PQ" value="6.4" /> <referenceRange> <observationRange> <text>6.0-8.3</ text> </observationRange> </referenceRange> </ observation> </component> </organizer> </entry> <entry> <organizer moodCode="EVN" classCode="BATTERY"> <templateId root= "2.16.840.1.551281.10..22.4.1" /> <id nullFlavor="NA" /> <code codeSystem="local" code="ORD68" displayName="Urinalysis" /> <statusCode code="completed" /> <component> <observation moodCode="EVN" classCode="OBS"> <templateId root="2.16.840.1.272683.10..22.4.2" /> <id nullFlavor="NA" /> <code codeSystem="local" code="Cgy0904 " displayName="Icotest" /> <statusCode code="completed" /> < effectiveTime value="533446157158" /> <value unit="" xsi:type="PQ" value="N/A" /> <interpretationCode codeSystem="local" code="A" /> <referenceRange> <observationRange> <text>Negative< /text> </observationRange> </referenceRange> </ observation> </component> <component> <observation moodCode= "EVN" classCode="OBS"> <templateId root="216.840.1.141283.10..22.4.2 " /> <id nullFlavor="NA" /> <code codeSystem="local" code= "Hkj962" displayName="Urine Volume" /> <statusCode code="completed" /> <effectiveTime value="216617374250" /> <value unit="" xsi: type="PQ" value="Urine Volume Sufficient (10mL)" /> <referenceRange> <observationRange> <text /> </observationRange > </referenceRange> </observation> </component> < component> <observation moodCode="EVN" classCode="OBS"> < templateId root="16.840.1.856423.11.29.21.4.2" /> <id nullFlavor="NA " /> <code codeSystem="local" code="Mlz241" displayName="Urine- Appearance" /> <statusCode code="completed" /> <effectiveTime value="075516954933" /> <value unit="" xsi:type="PQ" value="Clear" /> <referenceRange> <observationRange> <text>Clear </text> </observationRange> </referenceRange> </ observation> </component> <component> <observation moodCode= "EVN" classCode="OBS"> <templateId root="16.840.1.731260.10.22.4.2 " /> <id nullFlavor="NA" /> <code codeSystem="local" code= "Gxq171" displayName="Urine-Bacteria" /> <statusCode code="completed" / > <effectiveTime value="081112337799" /> <value unit="" xsi: type="PQ" value="Rare" /> <interpretationCode codeSystem="local" code= "A" /> <referenceRange> <observationRange> < text> </text> </observationRange> </referenceRange> < /observation> </component> <component> <observation moodCode= "EVN" classCode="OBS"> <templateId root="216.840.1.698930.10.4.2 " /> <id nullFlavor="NA" /> <code codeSystem="local" code= "Slk535" displayName="Urine-Bilirubin" /> <statusCode code="completed" /> <effectiveTime value="527908536868" /> <value unit="" xsi: type="PQ" value="Negative" /> <referenceRange> < observationRange> <text>Negative</text> </ observationRange> </referenceRange> </observation> </ component> <component> <observation moodCode="EVN" classCode="OBS"> <templateId root="216.840.1.889001.11.29.214.2" /> <id nullFlavor="NA" /> <code codeSystem="local" code="Gve018" displayName= "Urine-Blood" /> <statusCode code="completed" /> < effectiveTime value="355781343810" /> <value unit="" xsi:type="PQ" value="Trace-intact" /> <interpretationCode codeSystem="local" code="A " /> <referenceRange> <observationRange> <text> Negative</text> </observationRange> </referenceRange> </observation> </component> <component> <observation moodCode ="EVN" classCode="OBS"> <templateId root= "216.840.1.033832.11.29.21.4.2" /> <id nullFlavor="NA" /> < code codeSystem="local" code="Hia378" displayName="Urine-Color" /> < statusCode code="completed" /> <effectiveTime value="239362468402" /> <value unit="" xsi:type="PQ" value="Yellow" /> <referenceRange > <observationRange> <text>Colorless-Lt. Yellow</text> </observationRange> </referenceRange> </observation> </component> <component> <observation moodCode="EVN" classCode ="OBS"> <templateId root="03.28.840.1.141856.10..22.4.2" /> < id nullFlavor="NA" /> <code codeSystem="local" code="Rxz074" displayName="Urine-Epithelial Cells" /> <statusCode code="completed" / > <effectiveTime value="330766590023" /> <value unit="" xsi: type="PQ" value="0-5/HPF" /> <interpretationCode codeSystem="local" code="A" /> <referenceRange> <observationRange> <text> </text> </observationRange> </referenceRange> </observation> </component> <component> <observation moodCode="EVN" classCode="OBS"> <templateId root= "840.1.478186.11.29.21.4.2" /> <id nullFlavor="NA" /> < code codeSystem="local" code="Jhp253" displayName="Urine-Glucose" /> < statusCode code="completed" /> <effectiveTime value="971597856016" /> <value unit="" xsi:type="PQ" value="Negative" /> < referenceRange> <observationRange> <text>Negative</text > </observationRange> </referenceRange> </observation > </component> <component> <observation moodCode="EVN" classCode="OBS"> <templateId root="03.28.840.1.498330.10.20.22.4.2" /> <id nullFlavor="NA" /> <code codeSystem="local" code="Goh734" displayName="Urine-Ketones" /> <statusCode code="completed" /> <effectiveTime value="503981097397" /> <value unit="" xsi:type="PQ" value="Negative" /> <referenceRange> <observationRange> <text>Negative</text> </observationRange> </ referenceRange> </observation> </component> <component> <observation moodCode="EVN" classCode="OBS"> <templateId root= "16.840.1.784184.10..4.2" /> <id nullFlavor="NA" /> < code codeSystem="local" code="Jux704" displayName="Urine-Leukocytes" /> <statusCode code="completed" /> <effectiveTime value="034014103431" / > <value unit="" xsi:type="PQ" value="Negative" /> < referenceRange> <observationRange> <text>Negative</text > </observationRange> </referenceRange> </observation > </component> <component> <observation moodCode="EVN" classCode="OBS"> <templateId root="03.28.840.1.076134.11.29.21.4.2" /> <id nullFlavor="NA" /> <code codeSystem="local" code="Nia008" displayName="Urine-Nitrite" /> <statusCode code="completed" /> <effectiveTime value="669133926765" /> <value unit="" xsi:type="PQ" value="Negative" /> <referenceRange> <observationRange> <text>Negative</text> </observationRange> </ referenceRange> </observation> </component> <component> <observation moodCode="EVN" classCode="OBS"> <templateId root= "16.840.1.745837...4.2" /> <id nullFlavor="NA" /> < code codeSystem="local" code="Tyu452" displayName="Urine-Other" /> < statusCode code="completed" /> <effectiveTime value="130750888447" /> <value unit="" xsi:type="PQ" value=" Urine Saved if Culture Needed ( 48hrs from time of collection)" /> <interpretationCode codeSystem= "local" code="A" /> <referenceRange> <observationRange> <text> </text> </observationRange> </ referenceRange> </observation> </component> <component> <observation moodCode="EVN" classCode="OBS"> <templateId root= "2.16.840.1.786563.10..22.4.2" /> <id nullFlavor="NA" /> < code codeSystem="local" code="Xnv758" displayName="Urine-pH" /> < statusCode code="completed" /> <effectiveTime value="002280192187" /> <value unit="" xsi:type="PQ" value="8.5" /> <referenceRange> <observationRange> <text>5-8.5</text> </ observationRange> </referenceRange> </observation> </ component> <component> <observation moodCode="EVN" classCode="OBS"> <templateId root="2.16.840.1.725069.10..22.4.2" /> <id nullFlavor="NA" /> <code codeSystem="local" code="Wvp171" displayName= "Urine-Protein" /> <statusCode code="completed" /> < effectiveTime value="290086159267" /> <value unit="" xsi:type="PQ" value="Negative" /> <referenceRange> <observationRange> <text>Negative</text> </observationRange> </ referenceRange> </observation> </component> <component> <observation moodCode="EVN" classCode="OBS"> <templateId root= "216.840.1.880237.10..22.4.2" /> <id nullFlavor="NA" /> < code codeSystem="local" code="Eas013" displayName="Urine-RBC" /> < statusCode code="completed" /> <effectiveTime value="036529494108" /> <value unit="" xsi:type="PQ" value="1-3/HPF" /> < interpretationCode codeSystem="local" code="A" /> <referenceRange> <observationRange> <text> </text> </ observationRange> </referenceRange> </observation> </ component> <component> <observation moodCode="EVN" classCode="OBS"> <templateId root="216.840.1.849943.11.29.21.4.2" /> <id nullFlavor="NA" /> <code codeSystem="local" code="Xne570" displayName= "Urine-Specific [place]" /> <statusCode code="completed" /> < effectiveTime value="976020314505" /> <value unit="" xsi:type="PQ" value="1.020" /> <referenceRange> <observationRange> <text>1.000-1.030</text> </observationRange> </ referenceRange> </observation> </component> <component> <observation moodCode="EVN" classCode="OBS"> <templateId root= "16.840.1.144357.10.20.22.4.2" /> <id nullFlavor="NA" /> < code codeSystem="local" code="Iqy378" displayName="Urine-WBC" /> < statusCode code="completed" /> <effectiveTime value="744804526449" /> <value unit="" xsi:type="PQ" value="2-5/HPF" /> < interpretationCode codeSystem="local" code="A" /> <referenceRange> <observationRange> <text> </text> </ observationRange> </referenceRange> </observation> </ component> <component> <observation moodCode="EVN" classCode="OBS"> <templateId root="16.840.1.166421.10.20.22.4.2" /> <id nullFlavor="NA" /> <code codeSystem="local" code="Akv867" displayName= "Urobilinogen" /> <statusCode code="completed" /> < effectiveTime value="403662517470" /> <value unit="" xsi:type="PQ" value="0.2" /> <referenceRange> <observationRange> <text>0.2-1.0</text> </observationRange> </ referenceRange> </observation> </component> </organizer> </entry > <entry> <organizer moodCode="EVN" classCode="BATTERY"> <templateId root="03.28.840.1.306010.10..22.4.1" /> <id nullFlavor="NA" /> <code codeSystem="local" code="ORD4" displayName="BMP" /> <statusCode code= "completed" /> <component> <observation moodCode="EVN" classCode= "OBS"> <templateId root="03.28.840.1.385447.10.20.22.4.2" /> < id nullFlavor="NA" /> <code codeSystem="local" code="Res61" displayName ="Anion Gap" /> <statusCode code="completed" /> < effectiveTime value="708205856473" /> <value unit="" xsi:type="PQ" value="15" /> <interpretationCode codeSystem="local" code="H" /> <referenceRange> <observationRange> <text>6-14</text > </observationRange> </referenceRange> </observation > </component> <component> <observation moodCode="EVN" classCode="OBS"> <templateId root="216.840.1.411885.10.22.4.2" /> <id nullFlavor="NA" /> <code codeSystem="local" code="Res26" displayName="BUN" /> <statusCode code="completed" /> < effectiveTime value="" /> <value unit="mg/dL" xsi:type="PQ " value="9" /> <referenceRange> <observationRange> <text>5-25</text> </observationRange> </referenceRange > </observation> </component> <component> <observation moodCode="EVN" classCode="OBS"> <templateId root= "03.28.840.1.672637.11.29.21.4.2" /> <id nullFlavor="NA" /> < code codeSystem="local" code="Res5" displayName="Calcium" /> < statusCode code="completed" /> <effectiveTime value="139327522699" /> <value unit="mg/dL" xsi:type="PQ" value="8.2" /> < interpretationCode codeSystem="local" code="L" /> <referenceRange> <observationRange> <text>8.3-10.4</text> </ observationRange> </referenceRange> </observation> </ component> <component> <observation moodCode="EVN" classCode="OBS"> <templateId root="16.840.1.178601.11.29.21.4.2" /> <id nullFlavor="NA" /> <code codeSystem="local" code="Res21" displayName= "Chloride" /> <statusCode code="completed" /> <effectiveTime value="" /> <value unit="mmol/L" xsi:type="PQ" value="107" /> <referenceRange> <observationRange> <text>95 -114</text> </observationRange> </referenceRange> </ observation> </component> <component> <observation moodCode= "EVN" classCode="OBS"> <templateId root="216.840.1.190807.10..22.4.2 " /> <id nullFlavor="NA" /> <code codeSystem="local" code= "Res49" displayName="CO2" /> <statusCode code="completed" /> < effectiveTime value="" /> <value unit="mEq/L" xsi:type="PQ " value="24" /> <referenceRange> <observationRange> <text>22-33</text> </observationRange> </ referenceRange> </observation> </component> <component> <observation moodCode="EVN" classCode="OBS"> <templateId root= "03.28.840.1.571067.10..4.2" /> <id nullFlavor="NA" /> < code codeSystem="local" code="Bmt011" displayName="Creat" /> < statusCode code="completed" /> <effectiveTime value="" /> <value unit="mg/dL" xsi:type="PQ" value="0.59" /> < referenceRange> <observationRange> <text>0.50-1.50</text > </observationRange> </referenceRange> </observation > </component> <component> <observation moodCode="EVN" classCode="OBS"> <templateId root="216.840.1.622099.10.20.22.4.2" /> <id nullFlavor="NA" /> <code codeSystem="local" code="Zth516" displayName="eGFR" /> <statusCode code="completed" /> < effectiveTime value="847458201488" /> <value unit="mL/min/1.73m2" xsi: type="PQ" value="101" /> <referenceRange> <observationRange > <text>>59</text> </observationRange> </ referenceRange> </observation> </component> <component> <observation moodCode="EVN" classCode="OBS"> <templateId root= "216.840.1.869340.10..4.2" /> <id nullFlavor="NA" /> < code codeSystem="local" code="Res60" displayName="Glucose" /> < statusCode code="completed" /> <effectiveTime value="" /> <value unit="mg/dL" xsi:type="PQ" value="108" /> < referenceRange> <observationRange> <text>70-110</text> </observationRange> </referenceRange> </observation> </component> <component> <observation moodCode="EVN" classCode ="OBS"> <templateId root="216.840.1.338704.11.29.21.4.2" /> < id nullFlavor="NA" /> <code codeSystem="local" code="Res52" displayName ="Osmo" /> <statusCode code="completed" /> <effectiveTime value="362964294654" /> <value unit="" xsi:type="PQ" value="292" /> <referenceRange> <observationRange> <text>280-295 </text> </observationRange> </referenceRange> </ observation> </component> <component> <observation moodCode= "EVN" classCode="OBS"> <templateId root="216.840.1.064660.22.4.2 " /> <id nullFlavor="NA" /> <code codeSystem="local" code= "Res20" displayName="Potassium" /> <statusCode code="completed" /> <effectiveTime value="249198638695" /> <value unit="mmol/L" xsi: type="PQ" value="3.6" /> <referenceRange> <observationRange > <text>3.5-5.3</text> </observationRange> </ referenceRange> </observation> </component> <component> <observation moodCode="EVN" classCode="OBS"> <templateId root= "840.1.718792.11.29.21.4.2" /> <id nullFlavor="NA" /> < code codeSystem="local" code="Res19" displayName="Sodium" /> < statusCode code="completed" /> <effectiveTime value="570945341735" /> <value unit="mmol/L" xsi:type="PQ" value="142" /> < referenceRange> <observationRange> <text>134-148</text> </observationRange> </referenceRange> </observation > </component> </organizer> </entry> <entry> <organizer moodCode= "EVN" classCode="BATTERY"> <templateId root="840.1.533417.11.29.21.4.1 " /> <id nullFlavor="NA" /> <code codeSystem="local" code="XNI5585" displayName="Protime " /> <statusCode code="completed" /> <component> <observation moodCode="EVN" classCode="OBS"> <templateId root= "16.840.1.685416.1022.4.2" /> <id nullFlavor="NA" /> < code codeSystem="local" code="Unl993" displayName="INR" /> <statusCode code="completed" /> <effectiveTime value="" /> < value unit="" xsi:type="PQ" value="1.4" /> <referenceRange> <observationRange> <text>1.0-4.0</text> </ observationRange> </referenceRange> </observation> </ component> <component> <observation moodCode="EVN" classCode="OBS"> <templateId root="03.28.840.1.979016.10.4.2" /> <id nullFlavor="NA" /> <code codeSystem="local" code="Xag4427" displayName= "Protime" /> <statusCode code="completed" /> <effectiveTime value="" /> <value unit="Sec" xsi:type="PQ" value="16.6" / > <interpretationCode codeSystem="local" code="H" /> < referenceRange> <observationRange> <text>9.9-12.8</text > </observationRange> </referenceRange> </observation > </component> </organizer> </entry> <entry> <organizer moodCode= "EVN" classCode="BATTERY"> <templateId root="03.28.840.1.844347.11.29.21.4.1 " /> <id nullFlavor="NA" /> <code codeSystem="local" code="[id number]" displayName="MRSA Screen" /> <statusCode code="completed" /> < component> <observation moodCode="EVN" classCode="OBS"> < templateId root="03.28.840.1.596642.1022.4.2" /> <id nullFlavor="NA " /> <code codeSystem="local" code="[id number]" displayName="FINAL CULTURE RESULTS" /> <statusCode code="completed" /> < effectiveTime value="" /> <value unit="" xsi:type="PQ" value="MRSA Negative Nasal Culture" /> <referenceRange> < observationRange> <text /> </observationRange> </referenceRange> </observation> </component> <component> <observation moodCode="EVN" classCode="OBS"> <templateId root= "216.840.1.885616.104.2" /> <id nullFlavor="NA" /> < code codeSystem="local" code="Joe2961" displayName="MEDIA PLATED" /> < statusCode code="completed" /> <effectiveTime value="" /> <value unit="" xsi:type="PQ" value="Setup at 19:22 on 07/26/2017" /> <referenceRange> <observationRange> <text /> </observationRange> </referenceRange> </observation> </component> </organizer> </entry> <entry> <organizer moodCode="EVN" classCode="BATTERY"> <templateId root="216.840.1.937991.104.1" /> <id nullFlavor="NA" /> <code codeSystem="local" code="[id number]" displayName="Protime " /> <statusCode code="completed" /> <component> <observation moodCode="EVN" classCode="OBS"> <templateId root= "216.840.1.064760.10.4.2" /> <id nullFlavor="NA" /> < code codeSystem="local" code="Sgq475" displayName="INR" /> <statusCode code="completed" /> <effectiveTime value="351943332559" /> < value unit="" xsi:type="PQ" value="1.4" /> <referenceRange> <observationRange> <text>1.0-4.0</text> </ observationRange> </referenceRange> </observation> </ component> <component> <observation moodCode="EVN" classCode="OBS"> <templateId root="216.840.1.374535.10.22.4.2" /> <id nullFlavor="NA" /> <code codeSystem="local" code="Yrj3734" displayName= "Protime" /> <statusCode code="completed" /> <effectiveTime value="" /> <value unit="Sec" xsi:type="PQ" value="16.9" / > <interpretationCode codeSystem="local" code="H" /> < referenceRange> <observationRange> <text>9.9-12.8</text > </observationRange> </referenceRange> </observation > </component> </organizer> </entry> <entry> <organizer moodCode= "EVN" classCode="BATTERY"> <templateId root="03.28.840.1.200726.10..4.1 " /> <id nullFlavor="NA" /> <code codeSystem="local" code="AYM679" displayName="iStat Protime" /> <statusCode code="completed" /> < component> <observation moodCode="EVN" classCode="OBS"> < templateId root="16.840.1.154380.10..22.4.2" /> <id nullFlavor="NA " /> <code codeSystem="local" code="Fud079" displayName="INR" /> <statusCode code="completed" /> <effectiveTime value="095322374001 " /> <value unit="" xsi:type="PQ" value="3.9" /> < referenceRange> <observationRange> <text>1.0-4.0</text> </observationRange> </referenceRange> </observation > </component> <component> <observation moodCode="EVN" classCode="OBS"> <templateId root="16.840.1.939816.10.4.2" /> <id nullFlavor="NA" /> <code codeSystem="local" code="Oxh300* " displayName="Protime" /> <statusCode code="completed" /> < effectiveTime value="126380974036" /> <value unit="Sec" xsi:type="PQ" value="43.5" /> <interpretationCode codeSystem="local" code="H" /> <referenceRange> <observationRange> <text>11.0- 13.0</text> </observationRange> </referenceRange> </ observation> </component> </organizer> </entry> <entry> <organizer moodCode="EVN" classCode="BATTERY"> <templateId root= "03.28.840.1.960954.10..4.1" /> <id nullFlavor="NA" /> <code codeSystem="local" code="[id number]" displayName="Protime " /> <statusCode code="completed" /> <component> <observation moodCode="EVN" classCode="OBS"> <templateId root="03.28.840.1.419624.11.29.21.4.2" /> <id nullFlavor="NA" /> <code codeSystem="local" code="Hnm119" displayName="INR" /> <statusCode code="completed" /> < effectiveTime value="010887931875" /> <value unit="" xsi:type="PQ" value="2.5" /> <referenceRange> <observationRange> <text>1.0-4.0</text> </observationRange> </ referenceRange> </observation> </component> <component> <observation moodCode="EVN" classCode="OBS"> <templateId root= "216.840.1.674425.10.4.2" /> <id nullFlavor="NA" /> < code codeSystem="local" code="Zdq3603" displayName="Protime" /> < statusCode code="completed" /> <effectiveTime value="947925777812" /> <value unit="Sec" xsi:type="PQ" value="28.7" /> < interpretationCode codeSystem="local" code="H" /> <referenceRange> <observationRange> <text>9.9-12.8</text> </ observationRange> </referenceRange> </observation> </ component> </organizer> </entry> <entry> <organizer moodCode="EVN" classCode="BATTERY"> <templateId root="216.840.1.098521.10.4.1" /> <id nullFlavor="NA" /> <code codeSystem="local" code="CBCD" displayName="CBC W/DIFF" /> <statusCode code="completed" /> <component > <observation moodCode="EVN" classCode="OBS"> <templateId root= "16.840.1.686105.10.4.2" /> <id nullFlavor="NA" /> < code codeSystem="local" code="BA#" displayName="BASOPHIL #" /> < statusCode code="completed" /> <effectiveTime value="969036746190" /> <value unit="k/cumm" xsi:type="PQ" value="0.1" /> < referenceRange> <observationRange> <text>0.0-0.2</text> </observationRange> </referenceRange> </observation > </component> <component> <observation moodCode="EVN" classCode="OBS"> <templateId root="216.840.1.768038.10..4.2" /> <id nullFlavor="NA" /> <code codeSystem="local" code="BA% " displayName="BASOPHIL %" /> <statusCode code="completed" /> <effectiveTime value="312520005435" /> <value unit="%" xsi: type="PQ" value="0.8" /> <referenceRange> <observationRange > <text>0-1</text> </observationRange> </ referenceRange> </observation> </component> <component> <observation moodCode="EVN" classCode="OBS"> <templateId root= "216.840.1.878877.11.29.21.4.2" /> <id nullFlavor="NA" /> < code codeSystem="local" code="EO#" displayName="EOSINOPHIL #" /> < statusCode code="completed" /> <effectiveTime value="591834161911" /> <value unit="k/cumm" xsi:type="PQ" value="0.1" /> < referenceRange> <observationRange> <text>0.1-0.5</text> </observationRange> </referenceRange> </observation > </component> <component> <observation moodCode="EVN" classCode="OBS"> <templateId root="216.840.1.703080.10..4.2" /> <id nullFlavor="NA" /> <code codeSystem="local" code="EO% " displayName="EOSINOPHIL %" /> <statusCode code="completed" /> <effectiveTime value="255903276121" /> <value unit="%" xsi: type="PQ" value="1.8" /> <interpretationCode codeSystem="local" code="* " /> <referenceRange> <observationRange> <text> 2-4</text> </observationRange> </referenceRange> </ observation> </component> <component> <observation moodCode= "EVN" classCode="OBS"> <templateId root="216.840.1.708088.10.22.4.2 " /> <id nullFlavor="NA" /> <code codeSystem="local" code="GR# " displayName="GRANULOCYTE #" /> <statusCode code="completed" /> <effectiveTime value="192110537762" /> <value unit="k/cumm" xsi: type="PQ" value="5.3" /> <referenceRange> <observationRange > <text>2.0-9.0</text> </observationRange> </ referenceRange> </observation> </component> <component> <observation moodCode="EVN" classCode="OBS"> <templateId root= "03.28.840.1.413019.11.29.21.4.2" /> <id nullFlavor="NA" /> < code codeSystem="local" code="GR%" displayName="GRANULOCYTE %" /> <statusCode code="completed" /> <effectiveTime value="469945913225 " /> <value unit="%" xsi:type="PQ" value="72.8" /> < referenceRange> <observationRange> <text>50-75</text> </observationRange> </referenceRange> </observation> </component> <component> <observation moodCode="EVN" classCode= "OBS"> <templateId root="216.840.1.464825.102022.4.2" /> < id nullFlavor="NA" /> <code codeSystem="local" code="LY#" displayName= "LYMPHOCYTE #" /> <statusCode code="completed" /> < effectiveTime value="923704461498" /> <value unit="k/cumm" xsi:type="PQ " value="1.3" /> <referenceRange> <observationRange> <text>1.0-4.0</text> </observationRange> </ referenceRange> </observation> </component> <component> <observation moodCode="EVN" classCode="OBS"> <templateId root= "2.16.840.1.156027.10..4.2" /> <id nullFlavor="NA" /> < code codeSystem="local" code="LY%" displayName="LYMPHOCYTE %" /> <statusCode code="completed" /> <effectiveTime value="631870992536" /> <value unit="%" xsi:type="PQ" value="17.3" /> < interpretationCode codeSystem="local" code="*" /> <referenceRange> <observationRange> <text>20-30</text> </ observationRange> </referenceRange> </observation> </ component> <component> <observation moodCode="EVN" classCode="OBS"> <templateId root="2.16.840.1.863563.10.4.2" /> <id nullFlavor="NA" /> <code codeSystem="local" code="MCH" displayName= "MEAN CELL HGB" /> <statusCode code="completed" /> < effectiveTime value="817749993391" /> <value unit="pg" xsi:type="PQ" value="27.6" /> <referenceRange> <observationRange> <text>27.0-33.0</text> </observationRange> </ referenceRange> </observation> </component> <component> <observation moodCode="EVN" classCode="OBS"> <templateId root= "16.840.1.052554.10..4.2" /> <id nullFlavor="NA" /> < code codeSystem="local" code="MCHC" displayName="MEAN CELL HGB CONCENTRATION" / > <statusCode code="completed" /> <effectiveTime value= "" /> <value unit="g/dL" xsi:type="PQ" value="30.2" /> <interpretationCode codeSystem="local" code="*" /> < referenceRange> <observationRange> <text>32.0-37.0</text > </observationRange> </referenceRange> </observation > </component> <component> <observation moodCode="EVN" classCode="OBS"> <templateId root="03.28.840.1.477856.11.29.21.4.2" /> <id nullFlavor="NA" /> <code codeSystem="local" code="MCV" displayName="MEAN CELL VOLUME" /> <statusCode code="completed" /> <effectiveTime value="" /> <value unit="fl" xsi:type= "PQ" value="91.7" /> <referenceRange> <observationRange> <text>80.0-100.0</text> </observationRange> </ referenceRange> </observation> </component> <component> <observation moodCode="EVN" classCode="OBS"> <templateId root= "03.28.840.1.010415.10..4.2" /> <id nullFlavor="NA" /> < code codeSystem="local" code="MO#" displayName="MONOCYTE #" /> < statusCode code="completed" /> <effectiveTime value="" /> <value unit="k/cumm" xsi:type="PQ" value="0.5" /> < referenceRange> <observationRange> <text>0.1-1.0</text> </observationRange> </referenceRange> </observation > </component> <component> <observation moodCode="EVN" classCode="OBS"> <templateId root="03.28.840.1.049598.11.29.21.4.2" /> <id nullFlavor="NA" /> <code codeSystem="local" code="MO% " displayName="MONOCYTE %" /> <statusCode code="completed" /> <effectiveTime value="018821544760" /> <value unit="%" xsi: type="PQ" value="6.9" /> <interpretationCode codeSystem="local" code="* " /> <referenceRange> <observationRange> <text> 4-6</text> </observationRange> </referenceRange> </ observation> </component> <component> <observation moodCode= "EVN" classCode="OBS"> <templateId root="03.28.840.1.742000.11.29.21.4.2 " /> <id nullFlavor="NA" /> <code codeSystem="local" code= "MPVT" displayName="MEAN PLATELET VOLUME" /> <statusCode code= "completed" /> <effectiveTime value="648826445080" /> <value unit="fl" xsi:type="PQ" value="10.6" /> <referenceRange> < observationRange> <text>8.5-10.9</text> </ observationRange> </referenceRange> </observation> </ component> <component> <observation moodCode="EVN" classCode="OBS"> <templateId root="03.28.840.1.874210.11.29.21.4.2" /> <id nullFlavor="NA" /> <code codeSystem="local" code="RBC" displayName=" RED BLOOD CELL" /> <statusCode code="completed" /> < effectiveTime value="696978678280" /> <value unit="m/cumm" xsi:type="PQ " value="4.34" /> <referenceRange> <observationRange> <text>4.00-6.00</text> </observationRange> </ referenceRange> </observation> </component> <component> <observation moodCode="EVN" classCode="OBS"> <templateId root= "216.840.1.107723.11.29.21.4.2" /> <id nullFlavor="NA" /> < code codeSystem="local" code="RDW" displayName="RED CELL DISTRIBUTION WIDTH" /> <statusCode code="completed" /> <effectiveTime value= "734285172112" /> <value unit="%" xsi:type="PQ" value="16.2" /> <interpretationCode codeSystem="local" code="*" /> < referenceRange> <observationRange> <text>11.0-15.6</text > </observationRange> </referenceRange> </observation > </component> <component> <observation moodCode="EVN" classCode="OBS"> <templateId root="16.840.1.285026...4.2" /> <id nullFlavor="NA" /> <code codeSystem="local" code="WBC" displayName="WHITE BLOOD CELL" /> <statusCode code="completed" /> <effectiveTime value="781147317504" /> <value unit="k/cumm" xsi: type="PQ" value="7.3" /> <referenceRange> <observationRange > <text>5.0-10.0</text> </observationRange> </ referenceRange> </observation> </component> <component> <observation moodCode="EVN" classCode="OBS"> <templateId root= "216.840.1.663153.10.4.2" /> <id nullFlavor="NA" /> < code codeSystem="local" code="HGBT" displayName="HEMOGLOBIN" /> < statusCode code="completed" /> <effectiveTime value="421818698976" /> <value unit="gm/dL" xsi:type="PQ" value="12.0" /> < referenceRange> <observationRange> <text>12.0-16.0</text > </observationRange> </referenceRange> </observation > </component> <component> <observation moodCode="EVN" classCode="OBS"> <templateId root="03.28.840.1.052289.11.29.21.4.2" /> <id nullFlavor="NA" /> <code codeSystem="local" code="HCTT" displayName="HEMATOCRIT" /> <statusCode code="completed" /> < effectiveTime value="689135977448" /> <value unit="%" xsi:type="PQ " value="39.8" /> <referenceRange> <observationRange> <text>37.0-47.0</text> </observationRange> </ referenceRange> </observation> </component> <component> <observation moodCode="EVN" classCode="OBS"> <templateId root= "16.840.1.773023....4.2" /> <id nullFlavor="NA" /> < code codeSystem="local" code="NRBC%" displayName="NRBC %" /> < statusCode code="completed" /> <effectiveTime value="873497173593" /> <value unit="/100WBC" xsi:type="PQ" value="0.0" /> < referenceRange> <observationRange> <text>0.0-0.0</text> </observationRange> </referenceRange> </observation > </component> <component> <observation moodCode="EVN" classCode="OBS"> <templateId root="216.840.1.294876.10..4.2" /> <id nullFlavor="NA" /> <code codeSystem="local" code="PLTT" displayName="PLATELET COUNT" /> <statusCode code="completed" /> <effectiveTime value="519299234310" /> <value unit="k/cumm" xsi:type ="PQ" value="258" /> <referenceRange> <observationRange> <text>150-400</text> </observationRange> </ referenceRange> </observation> </component> <component> <observation moodCode="EVN" classCode="OBS"> <templateId root= "216.840.1.896501.10.4.2" /> <id nullFlavor="NA" /> < code codeSystem="local" code="IG%" displayName="IMMATURE GRANULOCYTE %" /> <statusCode code="completed" /> <effectiveTime value= "574509499020" /> <value unit="%" xsi:type="PQ" value="0.4" /> <referenceRange> <observationRange> <text>0.0-0.6< /text> </observationRange> </referenceRange> </ observation> </component> <component> <observation moodCode= "EVN" classCode="OBS"> <templateId root="2.16.840.1.232864...4.2 " /> <id nullFlavor="NA" /> <code codeSystem="local" code="IG# " displayName="IMMATURE GRANULOCYTE #" /> <statusCode code="completed" /> <effectiveTime value="297901977362" /> <value unit="k/cumm " xsi:type="PQ" value="0.03" /> <referenceRange> < observationRange> <text>0.00-0.09</text> </ observationRange> </referenceRange> </observation> </ component> </organizer> </entry> <entry> <organizer moodCode="EVN" classCode="BATTERY"> <templateId root="216.840.1.193518.10...4.1" /> <id nullFlavor="NA" /> <code codeSystem="local" code="SEDWES" displayName="SED RATE WESTERGREN" /> <statusCode code="completed" /> < component> <observation moodCode="EVN" classCode="OBS"> < templateId root="216.840.1.195852.10..22.4.2" /> <id nullFlavor="NA " /> <code codeSystem="local" code="SEDWES" displayName="SED RATE WESTERGREN" /> <statusCode code="completed" /> <effectiveTime value="979285404280" /> <value unit="mm/hr" xsi:type="PQ" value="29" / > <referenceRange> <observationRange> <text>0- 30</text> </observationRange> </referenceRange> </ observation> </component> </organizer> </entry> <entry> <organizer moodCode="EVN" classCode="BATTERY"> <templateId root= "216.840.1.834105.10...4.1" /> <id nullFlavor="NA" /> <code codeSystem="local" code="PT" displayName="PROTHROMBIN TIME WITH INR" /> < statusCode code="completed" /> <component> <observation moodCode= "EVN" classCode="OBS"> <templateId root="03.28.840.1.300081.10..22.4.2 " /> <id nullFlavor="NA" /> <code codeSystem="local" code= "INRX" displayName="INTERNATIONAL NORMAL RATIO" /> <statusCode code= "completed" /> <effectiveTime value="034230069743" /> <value unit="" xsi:type="PQ" value="1.7" /> <interpretationCode codeSystem= "local" code="*" /> <referenceRange> <observationRange> <text>0.9-1.1</text> </observationRange> </ referenceRange> </observation> </component> <component> <observation moodCode="EVN" classCode="OBS"> <templateId root= "840.1.715465.10..4.2" /> <id nullFlavor="NA" /> < code codeSystem="local" code="PTPAT" displayName="PROTHROMBIN TIME" /> <statusCode code="completed" /> <effectiveTime value="562071634236" /> <value unit="sec" xsi:type="PQ" value="19.9" /> < interpretationCode codeSystem="local" code="*" /> <referenceRange> <observationRange> <text>10.0-12.8</text> </ observationRange> </referenceRange> </observation> </ component> </organizer> </entry> <entry> <organizer moodCode="EVN" classCode="BATTERY"> <templateId root="03.28.840.1.991641.10.20.22.4.1" /> <id nullFlavor="NA" /> <code codeSystem="local" code="PTT" displayName ="PARTIAL THROMBOPLASTIN TIME" /> <statusCode code="completed" /> < component> <observation moodCode="EVN" classCode="OBS"> < templateId root="16.840.1.089122.10..22.4.2" /> <id nullFlavor="NA " /> <code codeSystem="local" code="PTT" displayName="PARTIAL THROMBOPLASTIN TIME" /> <statusCode code="completed" /> < effectiveTime value="431490292657" /> <value unit="sec" xsi:type="PQ" value="35" /> <referenceRange> <observationRange> <text>24-36</text> </observationRange> </referenceRange > </observation> </component> </organizer> </entry> <entry> <organizer moodCode="EVN" classCode="BATTERY"> <templateId root= "16.840.1.959968.10..22.4.1" /> <id nullFlavor="NA" /> <code codeSystem="local" code="METABC" displayName="METABOLIC PANEL, COMPREHN" /> <statusCode code="completed" /> <component> <observation moodCode= "EVN" classCode="OBS"> <templateId root="16.840.1.539109.10..22.4.2 " /> <id nullFlavor="NA" /> <code codeSystem="local" code="K" displayName="POTASSIUM" /> <statusCode code="completed" /> < effectiveTime value="572907693542" /> <value unit="mmol/L" xsi:type="PQ " value="4.2" /> <referenceRange> <observationRange> <text>3.5-5.3</text> </observationRange> </ referenceRange> </observation> </component> <component> <observation moodCode="EVN" classCode="OBS"> <templateId root= "216.840.1.931751.10.4.2" /> <id nullFlavor="NA" /> < code codeSystem="local" code="eGFR" displayName="EST GFR (MDRD)" /> < statusCode code="completed" /> <effectiveTime value="" /> <value unit="mL/min" xsi:type="PQ" value="> 60" /> < referenceRange> <observationRange> <text>> 59</text> </observationRange> </referenceRange> </observation > </component> <component> <observation moodCode="EVN" classCode="OBS"> <templateId root="03.28.840.1.105185.11.29.21.4.2" /> <id nullFlavor="NA" /> <code codeSystem="local" code="GAP" displayName="ANION GAP" /> <statusCode code="completed" /> < effectiveTime value="" /> <value unit="mmol/L" xsi:type="PQ " value="6" /> <referenceRange> <observationRange> <text>5-15</text> </observationRange> </referenceRange > </observation> </component> <component> <observation moodCode="EVN" classCode="OBS"> <templateId root= "16.840.1.911089.10...4.2" /> <id nullFlavor="NA" /> < code codeSystem="local" code="GLU" displayName="GLUCOSE" /> < statusCode code="completed" /> <effectiveTime value="" /> <value unit="mg/dL" xsi:type="PQ" value="106" /> < interpretationCode codeSystem="local" code="*" /> <referenceRange> <observationRange> <text>70-99</text> </ observationRange> </referenceRange> </observation> </ component> <component> <observation moodCode="EVN" classCode="OBS"> <templateId root="16.840.1.636823.10.20.22.4.2" /> <id nullFlavor="NA" /> <code codeSystem="local" code="CA" displayName= "CALCIUM" /> <statusCode code="completed" /> <effectiveTime value="175019302591" /> <value unit="mg/dL" xsi:type="PQ" value="9.2" / > <referenceRange> <observationRange> <text>8.5 -10.1</text> </observationRange> </referenceRange> </ observation> </component> <component> <observation moodCode= "EVN" classCode="OBS"> <templateId root="03.28.840.1.105863.1022.4.2 " /> <id nullFlavor="NA" /> <code codeSystem="local" code="BUN " displayName="BLOOD UREA NITROGEN" /> <statusCode code="completed" /> <effectiveTime value="137852784792" /> <value unit="mg/dL" xsi:type="PQ" value="14" /> <referenceRange> < observationRange> <text>7-20</text> </observationRange> </referenceRange> </observation> </component> < component> <observation moodCode="EVN" classCode="OBS"> < templateId root="03.28.840.1.725494.10.2022.4.2" /> <id nullFlavor="NA " /> <code codeSystem="local" code="CREAT" displayName="CREATININE" /> <statusCode code="completed" /> <effectiveTime value= "132081972652" /> <value unit="mg/dL" xsi:type="PQ" value="0.7" /> <referenceRange> <observationRange> <text>0.6-1.0< /text> </observationRange> </referenceRange> </ observation> </component> <component> <observation moodCode= "EVN" classCode="OBS"> <templateId root="16.840.1.966294.10.4.2 " /> <id nullFlavor="NA" /> <code codeSystem="local" code="NA " displayName="SODIUM" /> <statusCode code="completed" /> < effectiveTime value="689499755171" /> <value unit="mmol/L" xsi:type="PQ " value="144" /> <referenceRange> <observationRange> <text>135-148</text> </observationRange> </ referenceRange> </observation> </component> <component> <observation moodCode="EVN" classCode="OBS"> <templateId root= "03.28.840.1.032431.11.29.21.4.2" /> <id nullFlavor="NA" /> < code codeSystem="local" code="CL" displayName="CHLORIDE" /> < statusCode code="completed" /> <effectiveTime value="320642050543" /> <value unit="mmol/L" xsi:type="PQ" value="108" /> < referenceRange> <observationRange> <text>98-110</text> </observationRange> </referenceRange> </observation> </component> <component> <observation moodCode="EVN" classCode ="OBS"> <templateId root="16.840.1.421764...4.2" /> < id nullFlavor="NA" /> <code codeSystem="local" code="AST" displayName= "AST/SGOT" /> <statusCode code="completed" /> <effectiveTime value="365297085187" /> <value unit="Units/L" xsi:type="PQ" value="19" /> <referenceRange> <observationRange> <text>10 -37</text> </observationRange> </referenceRange> </ observation> </component> <component> <observation moodCode= "EVN" classCode="OBS"> <templateId root="16.840.1.560928.10..22.4.2 " /> <id nullFlavor="NA" /> <code codeSystem="local" code="ALT " displayName="ALT/SGPT" /> <statusCode code="completed" /> < effectiveTime value="278544182932" /> <value unit="Units/L" xsi:type= "PQ" value="19" /> <referenceRange> <observationRange> <text>< 66</text> </observationRange> </ referenceRange> </observation> </component> <component> <observation moodCode="EVN" classCode="OBS"> <templateId root= "16.840.1.219684.10..22.4.2" /> <id nullFlavor="NA" /> < code codeSystem="local" code="CO2" displayName="CARBON DIOXIDE" /> < statusCode code="completed" /> <effectiveTime value="567173678331" /> <value unit="mmol/L" xsi:type="PQ" value="30" /> < referenceRange> <observationRange> <text>21-32</text> </observationRange> </referenceRange> </observation> </component> <component> <observation moodCode="EVN" classCode= "OBS"> <templateId root="03.28.840.1.077286.11.29.21.4.2" /> < id nullFlavor="NA" /> <code codeSystem="local" code="TP" displayName= "TOTAL PROTEIN" /> <statusCode code="completed" /> < effectiveTime value="" /> <value unit="gm/dL" xsi:type="PQ " value="7.7" /> <referenceRange> <observationRange> <text>6.4-8.2</text> </observationRange> </ referenceRange> </observation> </component> <component> <observation moodCode="EVN" classCode="OBS"> <templateId root= "03.28.840.1.538232.11.29.214.2" /> <id nullFlavor="NA" /> < code codeSystem="local" code="ALB" displayName="ALBUMIN" /> < statusCode code="completed" /> <effectiveTime value="" /> <value unit="gm/dL" xsi:type="PQ" value="3.4" /> < referenceRange> <observationRange> <text>3.4-5.0</text> </observationRange> </referenceRange> </observation > </component> <component> <observation moodCode="EVN" classCode="OBS"> <templateId root="03.28.840.1.800601.11.29.21.4.2" /> <id nullFlavor="NA" /> <code codeSystem="local" code="BILTOT" displayName="BILI TOTAL" /> <statusCode code="completed" /> < effectiveTime value="" /> <value unit="mg/dL" xsi:type="PQ " value="0.4" /> <referenceRange> <observationRange> <text>0.0-1.0</text> </observationRange> </ referenceRange> </observation> </component> <component> <observation moodCode="EVN" classCode="OBS"> <templateId root= "16.840.1.167684.10.22.4.2" /> <id nullFlavor="NA" /> < code codeSystem="local" code="ALKP" displayName="ALKALINE PHOSPHATASE TOTAL" /> <statusCode code="completed" /> <effectiveTime value= "[id number]" /> <value unit="IU/L" xsi:type="PQ" value="125" /> <interpretationCode codeSystem="local" code="*" /> <referenceRange > <observationRange> <text>45-117</text> </ observationRange> </referenceRange> </observation> </ component> </organizer> </entry> <entry> <organizer moodCode="EVN" classCode="BATTERY"> <templateId root="216.840.1.913426.10..22.4.1" /> <id nullFlavor="NA" /> <code codeSystem="local" code="CRP" displayName ="C REACTIVE PROTEIN" /> <statusCode code="completed" /> <component> <observation moodCode="EVN" classCode="OBS"> <templateId root= "216.840.1.808094.10..22.4.2" /> <id nullFlavor="NA" /> < code codeSystem="local" code="CRP" displayName="C REACTIVE PROTEIN" /> <statusCode code="completed" /> <effectiveTime value="[id number]" /> <value unit="mg/L" xsi:type="PQ" value="8.8" /> < interpretationCode codeSystem="local" code="*" /> <referenceRange> <observationRange> <text>< 8.0</text> </ observationRange> </referenceRange> </observation> </ component> </organizer> </entry> <entry> <organizer moodCode="EVN" classCode="BATTERY"> <templateId root="2.16.840.1.902097.10..22.4.1" /> <id nullFlavor="NA" /> <code codeSystem="local" code="MRSAS" displayName="MRSA SURVEILLANCE SCREEN" /> <statusCode code="completed" /> <component> <observation moodCode="EVN" classCode="OBS"> < templateId root="2.16.840.1.704680.10...4.2" /> <id nullFlavor="NA " /> <code codeSystem="local" code="MB" displayName="Microbiology" /> <statusCode code="completed" /> <effectiveTime value= "[id number]" /> <value xsi:type="ST" value="<pre><b>MRSA SURVEILLANCE SCREEN</b> See BelowMRSA SURVEILLANCE SCREEN(F) Papo Date/Time: 08/05/2017 15:12 Dina Date/Time: 08/06/2017 13: 21SOURCE: ANTERIOR NARESSPEC DESC: NNO [facility] [place] [address]</pre>" /> <referenceRange> <observationRange> <text /> </observationRange> </referenceRange> </observation> </ component> </organizer> </entry> <entry> <organizer moodCode="EVN" classCode="BATTERY"> <templateId root="2.16.840.1.953727.10..22.4.1" /> <id nullFlavor="NA" /> <code codeSystem="local" code="UA" displayName= "URINALYSIS, ROUTINE" /> <statusCode code="completed" /> <component> <observation moodCode="EVN" classCode="OBS"> <templateId root= "216.840.1.497122.10..4.2" /> <id nullFlavor="NA" /> < code codeSystem="local" code="LEUESU" displayName="UA LEUKOCYTE ESTERASE DIPSTICK" /> <statusCode code="completed" /> <effectiveTime value="" /> <value unit="" xsi:type="PQ" value="NEGATIVE" / > <referenceRange> <observationRange> <text> NEGATIVE</text> </observationRange> </referenceRange> </observation> </component> <component> <observation moodCode ="EVN" classCode="OBS"> <templateId root= "16.840.1.699898.11.29.21.4.2" /> <id nullFlavor="NA" /> < code codeSystem="local" code="NITRIU" displayName="UA NITRITE DIPSTICK" /> <statusCode code="completed" /> <effectiveTime value=" " /> <value unit="" xsi:type="PQ" value="NEGATIVE" /> < referenceRange> <observationRange> <text>NEGATIVE</text > </observationRange> </referenceRange> </observation > </component> <component> <observation moodCode="EVN" classCode="OBS"> <templateId root="03.28.840.1.604561.10.4.2" /> <id nullFlavor="NA" /> <code codeSystem="local" code="PROTEIU " displayName="UA PROTEIN DIPSTICK" /> <statusCode code="completed" /> <effectiveTime value="" /> <value unit="" xsi: type="PQ" value="NEGATIVE" /> <referenceRange> < observationRange> <text>NEGATIVE</text> </ observationRange> </referenceRange> </observation> </ component> <component> <observation moodCode="EVN" classCode="OBS"> <templateId root="216.840.1.507512.10..4.2" /> <id nullFlavor="NA" /> <code codeSystem="local" code="DGLUU" displayName= "UA GLUCOSE DIPSTICK" /> <statusCode code="completed" /> < effectiveTime value="" /> <value unit="" xsi:type="PQ" value="NEGATIVE" /> <referenceRange> <observationRange> <text>NEGATIVE</text> </observationRange> </ referenceRange> </observation> </component> <component> <observation moodCode="EVN" classCode="OBS"> <templateId root= "216.840.1.159762...4.2" /> <id nullFlavor="NA" /> < code codeSystem="local" code="KETONU" displayName="UA KETONE DIPSTICK" /> <statusCode code="completed" /> <effectiveTime value=" " /> <value unit="" xsi:type="PQ" value="NEGATIVE" /> < referenceRange> <observationRange> <text>NEGATIVE</text > </observationRange> </referenceRange> </observation > </component> <component> <observation moodCode="EVN" classCode="OBS"> <templateId root="16.840.1.555437.10..4.2" /> <id nullFlavor="NA" /> <code codeSystem="local" code="UROBILU " displayName="UA UROBILINOGEN DIPSTICK" /> <statusCode code="completed " /> <effectiveTime value="" /> <value unit="" xsi :type="PQ" value="NORMAL" /> <referenceRange> < observationRange> <text>NORMAL</text> </observationRange > </referenceRange> </observation> </component> < component> <observation moodCode="EVN" classCode="OBS"> < templateId root="216.840.1.461306.10.4.2" /> <id nullFlavor="NA " /> <code codeSystem="local" code="BILU" displayName="UA BILIRUBIN DIPSTICK" /> <statusCode code="completed" /> <effectiveTime value="" /> <value unit="" xsi:type="PQ" value="NEGATIVE" / > <referenceRange> <observationRange> <text> NEGATIVE</text> </observationRange> </referenceRange> </observation> </component> <component> <observation moodCode ="EVN" classCode="OBS"> <templateId root= "03.28.840.1.679157.11.29.21.4.2" /> <id nullFlavor="NA" /> < code codeSystem="local" code="SOFIA" displayName="UA BLOOD DIPSTICK" /> < statusCode code="completed" /> <effectiveTime value="" /> <value unit="" xsi:type="PQ" value="NEGATIVE" /> < referenceRange> <observationRange> <text>NEGATIVE</text > </observationRange> </referenceRange> </observation > </component> <component> <observation moodCode="EVN" classCode="OBS"> <templateId root="03.28.840.1.229616.11.29.21.4.2" /> <id nullFlavor="NA" /> <code codeSystem="local" code="SPGRU" displayName="UA SPECIFIC GRAVITY" /> <statusCode code="completed" /> <effectiveTime value="" /> <value unit="" xsi:type= "PQ" value="1.016" /> <referenceRange> <observationRange> <text>1.015-1.025</text> </observationRange> </ referenceRange> </observation> </component> <component> <observation moodCode="EVN" classCode="OBS"> <templateId root= "03.28.840.1.319660.10.4.2" /> <id nullFlavor="NA" /> < code codeSystem="local" code="ANDREW" displayName="UR PH" /> <statusCode code="completed" /> <effectiveTime value="177770337740" /> < value unit="" xsi:type="PQ" value=">=9.0" /> <interpretationCode codeSystem="local" code="*" /> <referenceRange> < observationRange> <text>5.0-7.0</text> </ observationRange> </referenceRange> </observation> </ component> </organizer> </entry> <entry> <organizer moodCode="EVN" classCode="BATTERY"> <templateId root="840.1.327865.11.29.21.4.1" /> <id nullFlavor="NA" /> <code codeSystem="local" code="PT" displayName= "PROTHROMBIN TIME WITH INR" /> <statusCode code="completed" /> < component> <observation moodCode="EVN" classCode="OBS"> < templateId root="03.28.840.1.962666.22.4.2" /> <id nullFlavor="NA " /> <code codeSystem="local" code="INRX" displayName="INTERNATIONAL NORMAL RATIO" /> <statusCode code="completed" /> < effectiveTime value="734287783585" /> <value unit="" xsi:type="PQ" value="1.5" /> <interpretationCode codeSystem="local" code="*" /> <referenceRange> <observationRange> <text>0.9-1.1</ text> </observationRange> </referenceRange> </ observation> </component> <component> <observation moodCode= "EVN" classCode="OBS"> <templateId root="03.28.840.1.504698.22.4.2 " /> <id nullFlavor="NA" /> <code codeSystem="local" code= "PTPAT" displayName="PROTHROMBIN TIME" /> <statusCode code="completed" /> <effectiveTime value="667259196251" /> <value unit="sec" xsi:type="PQ" value="16.6" /> <interpretationCode codeSystem="local" code="*" /> <referenceRange> <observationRange> <text>10.0-12.8</text> </observationRange> </ referenceRange> </observation> </component> </organizer> </entry > <entry> <organizer moodCode="EVN" classCode="BATTERY"> <templateId root="840.1.463095.22.4.1" /> <id nullFlavor="NA" /> <code codeSystem="local" code="K" displayName="POTASSIUM" /> <statusCode code= "completed" /> <component> <observation moodCode="EVN" classCode= "OBS"> <templateId root="840.1.489492.1022.4.2" /> < id nullFlavor="NA" /> <code codeSystem="local" code="K" displayName= "POTASSIUM" /> <statusCode code="completed" /> <effectiveTime value="636037839210" /> <value unit="mmol/L" xsi:type="PQ" value="3.7" /> <referenceRange> <observationRange> <text> 3.5-5.3</text> </observationRange> </referenceRange> </observation> </component> </organizer> </entry> <entry> < organizer moodCode="EVN" classCode="BATTERY"> <templateId root= "16.840.1.799250.10..4.1" /> <id nullFlavor="NA" /> <code codeSystem="local" code="CBC" displayName="CBC" /> <statusCode code= "completed" /> <component> <observation moodCode="EVN" classCode= "OBS"> <templateId root="03.28.840.1.600185.11.29.21.4.2" /> < id nullFlavor="NA" /> <code codeSystem="local" code="MCH" displayName= "MEAN CELL HGB" /> <statusCode code="completed" /> < effectiveTime value="394338171311" /> <value unit="pg" xsi:type="PQ" value="27.7" /> <referenceRange> <observationRange> <text>27.0-33.0</text> </observationRange> </ referenceRange> </observation> </component> <component> <observation moodCode="EVN" classCode="OBS"> <templateId root= "03.28.840.1.628061.11.29.21.4.2" /> <id nullFlavor="NA" /> < code codeSystem="local" code="MCHC" displayName="MEAN CELL HGB CONCENTRATION" / > <statusCode code="completed" /> <effectiveTime value= "823225277501" /> <value unit="g/dL" xsi:type="PQ" value="30.3" /> <interpretationCode codeSystem="local" code="*" /> < referenceRange> <observationRange> <text>32.0-37.0</text > </observationRange> </referenceRange> </observation > </component> <component> <observation moodCode="EVN" classCode="OBS"> <templateId root="16.840.1.966109.10.2022.4.2" /> <id nullFlavor="NA" /> <code codeSystem="local" code="MCV" displayName="MEAN CELL VOLUME" /> <statusCode code="completed" /> <effectiveTime value="716049767340" /> <value unit="fl" xsi:type= "PQ" value="91.6" /> <referenceRange> <observationRange> <text>80.0-100.0</text> </observationRange> </ referenceRange> </observation> </component> <component> <observation moodCode="EVN" classCode="OBS"> <templateId root= "03.28.840.1.121388.1022.4.2" /> <id nullFlavor="NA" /> < code codeSystem="local" code="MPVT" displayName="MEAN PLATELET VOLUME" /> <statusCode code="completed" /> <effectiveTime value="884093388180 " /> <value unit="fl" xsi:type="PQ" value="10.4" /> < referenceRange> <observationRange> <text>8.5-10.9</text > </observationRange> </referenceRange> </observation > </component> <component> <observation moodCode="EVN" classCode="OBS"> <templateId root="03.28.840.1.485242.102022.4.2" /> <id nullFlavor="NA" /> <code codeSystem="local" code="RBC" displayName="RED BLOOD CELL" /> <statusCode code="completed" /> <effectiveTime value="508144419618" /> <value unit="m/cumm" xsi:type ="PQ" value="3.32" /> <interpretationCode codeSystem="local" code="*" / > <referenceRange> <observationRange> <text> 4.00-6.00</text> </observationRange> </referenceRange> </observation> </component> <component> <observation moodCode="EVN" classCode="OBS"> <templateId root= "216.840.1.517587.10.20.22.4.2" /> <id nullFlavor="NA" /> < code codeSystem="local" code="RDW" displayName="RED CELL DISTRIBUTION WIDTH" /> <statusCode code="completed" /> <effectiveTime value= "325892139238" /> <value unit="%" xsi:type="PQ" value="16.6" /> <interpretationCode codeSystem="local" code="*" /> < referenceRange> <observationRange> <text>11.0-15.6</text > </observationRange> </referenceRange> </observation > </component> <component> <observation moodCode="EVN" classCode="OBS"> <templateId root="216.840.1.048145.10.20.22.4.2" /> <id nullFlavor="NA" /> <code codeSystem="local" code="WBC" displayName="WHITE BLOOD CELL" /> <statusCode code="completed" /> <effectiveTime value="746229926238" /> <value unit="k/cumm" xsi: type="PQ" value="5.5" /> <referenceRange> <observationRange > <text>5.0-10.0</text> </observationRange> </ referenceRange> </observation> </component> <component> <observation moodCode="EVN" classCode="OBS"> <templateId root= "16.840.1.205444.10.20.22.4.2" /> <id nullFlavor="NA" /> < code codeSystem="local" code="HGBT" displayName="HEMOGLOBIN" /> < statusCode code="completed" /> <effectiveTime value="701221147086" /> <value unit="gm/dL" xsi:type="PQ" value="9.2" /> < interpretationCode codeSystem="local" code="*" /> <referenceRange> <observationRange> <text>12.0-16.0</text> </ observationRange> </referenceRange> </observation> </ component> <component> <observation moodCode="EVN" classCode="OBS"> <templateId root="03.28.840.1.905147.10.22.4.2" /> <id nullFlavor="NA" /> <code codeSystem="local" code="HCTT" displayName= "HEMATOCRIT" /> <statusCode code="completed" /> < effectiveTime value="175470261672" /> <value unit="%" xsi:type="PQ " value="30.4" /> <interpretationCode codeSystem="local" code="*" /> <referenceRange> <observationRange> <text>37.0- 47.0</text> </observationRange> </referenceRange> </ observation> </component> <component> <observation moodCode= "EVN" classCode="OBS"> <templateId root="03.28.840.1.263623.10.2022.4.2 " /> <id nullFlavor="NA" /> <code codeSystem="local" code= "NRBC%" displayName="NRBC %" /> <statusCode code="completed" / > <effectiveTime value="328829071395" /> <value unit="/100WBC " xsi:type="PQ" value="0.0" /> <referenceRange> < observationRange> <text>0.0-0.0</text> </ observationRange> </referenceRange> </observation> </ component> <component> <observation moodCode="EVN" classCode="OBS"> <templateId root="16.840.1.380674.10.22.4.2" /> <id nullFlavor="NA" /> <code codeSystem="local" code="PLTT" displayName= "PLATELET COUNT" /> <statusCode code="completed" /> < effectiveTime value="902055171946" /> <value unit="k/cumm" xsi:type="PQ " value="179" /> <referenceRange> <observationRange> <text>150-400</text> </observationRange> </ referenceRange> </observation> </component> </organizer> </entry > <entry> <organizer moodCode="EVN" classCode="BATTERY"> <templateId root="03.28.840.1.257124.22.4.1" /> <id nullFlavor="NA" /> <code codeSystem="local" code="PT" displayName="PROTHROMBIN TIME WITH INR" /> < statusCode code="completed" /> <component> <observation moodCode= "EVN" classCode="OBS"> <templateId root="03.28.840.1.075259.10..22.4.2 " /> <id nullFlavor="NA" /> <code codeSystem="local" code= "INRX" displayName="INTERNATIONAL NORMAL RATIO" /> <statusCode code= "completed" /> <effectiveTime value="784147018333" /> <value unit="" xsi:type="PQ" value="1.6" /> <interpretationCode codeSystem= "local" code="*" /> <referenceRange> <observationRange> <text>0.9-1.1</text> </observationRange> </ referenceRange> </observation> </component> <component> <observation moodCode="EVN" classCode="OBS"> <templateId root= "16.840.1.618446.10.20.22.4.2" /> <id nullFlavor="NA" /> < code codeSystem="local" code="PTPAT" displayName="PROTHROMBIN TIME" /> <statusCode code="completed" /> <effectiveTime value="935866794002" /> <value unit="sec" xsi:type="PQ" value="18.5" /> < interpretationCode codeSystem="local" code="*" /> <referenceRange> <observationRange> <text>10.0-12.8</text> </ observationRange> </referenceRange> </observation> </ component> </organizer> </entry> <entry> <organizer moodCode="EVN" classCode="BATTERY"> <templateId root="03.28.840.1.673118...22.4.1" /> <id nullFlavor="NA" /> <code codeSystem="local" code="METABC" displayName="METABOLIC PANEL, COMPREHN" /> <statusCode code="completed" /> <component> <observation moodCode="EVN" classCode="OBS"> < templateId root="03.28.840.1.142058.10.20.22.4.2" /> <id nullFlavor="NA " /> <code codeSystem="local" code="K" displayName="POTASSIUM" /> <statusCode code="completed" /> <effectiveTime value="385155400831 " /> <value unit="mmol/L" xsi:type="PQ" value="3.9" /> < referenceRange> <observationRange> <text>3.5-5.3</text> </observationRange> </referenceRange> </observation > </component> <component> <observation moodCode="EVN" classCode="OBS"> <templateId root="216.840.1.394247.10...4.2" /> <id nullFlavor="NA" /> <code codeSystem="local" code="eGFR" displayName="EST GFR (MDRD)" /> <statusCode code="completed" /> <effectiveTime value="" /> <value unit="mL/min" xsi:type ="PQ" value="> 60" /> <referenceRange> <observationRange > <text>> 59</text> </observationRange> </ referenceRange> </observation> </component> <component> <observation moodCode="EVN" classCode="OBS"> <templateId root= "03.28.840.1.503486.11.29.21.4.2" /> <id nullFlavor="NA" /> < code codeSystem="local" code="GAP" displayName="ANION GAP" /> < statusCode code="completed" /> <effectiveTime value="712687728410" /> <value unit="mmol/L" xsi:type="PQ" value="6" /> < referenceRange> <observationRange> <text>5-15</text> </observationRange> </referenceRange> </observation> </component> <component> <observation moodCode="EVN" classCode= "OBS"> <templateId root="03.28.840.1.684571.10...4.2" /> < id nullFlavor="NA" /> <code codeSystem="local" code="eCrCl" displayName ="EST CrCl (CG)" /> <statusCode code="completed" /> < effectiveTime value="733993131529" /> <value unit="mL/min" xsi:type="PQ " value="> 60" /> <referenceRange> <observationRange> <text>> 59</text> </observationRange> </ referenceRange> </observation> </component> <component> <observation moodCode="EVN" classCode="OBS"> <templateId root= "03.28.840.1.168432.10..22.4.2" /> <id nullFlavor="NA" /> < code codeSystem="local" code="GLU" displayName="GLUCOSE" /> < statusCode code="completed" /> <effectiveTime value="" /> <value unit="mg/dL" xsi:type="PQ" value="87" /> < referenceRange> <observationRange> <text>70-99</text> </observationRange> </referenceRange> </observation> </component> <component> <observation moodCode="EVN" classCode= "OBS"> <templateId root="03.28.840.1.819335.10..22.4.2" /> < id nullFlavor="NA" /> <code codeSystem="local" code="CA" displayName= "CALCIUM" /> <statusCode code="completed" /> <effectiveTime value="757393379595" /> <value unit="mg/dL" xsi:type="PQ" value="7.9" / > <interpretationCode codeSystem="local" code="*" /> < referenceRange> <observationRange> <text>8.5-10.1</text > </observationRange> </referenceRange> </observation > </component> <component> <observation moodCode="EVN" classCode="OBS"> <templateId root="03.28.840.1.762513.10.20.22.4.2" /> <id nullFlavor="NA" /> <code codeSystem="local" code="BUN" displayName="BLOOD UREA NITROGEN" /> <statusCode code="completed" /> <effectiveTime value="737278049836" /> <value unit="mg/dL" xsi: type="PQ" value="10" /> <referenceRange> <observationRange> <text>7-20</text> </observationRange> </ referenceRange> </observation> </component> <component> <observation moodCode="EVN" classCode="OBS"> <templateId root= "16.840.1.509553.10..22.4.2" /> <id nullFlavor="NA" /> < code codeSystem="local" code="CREAT" displayName="CREATININE" /> < statusCode code="completed" /> <effectiveTime value="408952620361" /> <value unit="mg/dL" xsi:type="PQ" value="0.6" /> < referenceRange> <observationRange> <text>0.6-1.0</text> </observationRange> </referenceRange> </observation > </component> <component> <observation moodCode="EVN" classCode="OBS"> <templateId root="16.840.1.052216.10.20.22.4.2" /> <id nullFlavor="NA" /> <code codeSystem="local" code="NA" displayName="SODIUM" /> <statusCode code="completed" /> < effectiveTime value="786581130545" /> <value unit="mmol/L" xsi:type="PQ " value="142" /> <referenceRange> <observationRange> <text>135-148</text> </observationRange> </ referenceRange> </observation> </component> <component> <observation moodCode="EVN" classCode="OBS"> <templateId root= "16.840.1.043047.11.29.22.4.2" /> <id nullFlavor="NA" /> < code codeSystem="local" code="CL" displayName="CHLORIDE" /> < statusCode code="completed" /> <effectiveTime value="363168094464" /> <value unit="mmol/L" xsi:type="PQ" value="108" /> < referenceRange> <observationRange> <text>98-110</text> </observationRange> </referenceRange> </observation> </component> <component> <observation moodCode="EVN" classCode ="OBS"> <templateId root="216.840.1.245503.11.29.21.4.2" /> < id nullFlavor="NA" /> <code codeSystem="local" code="AST" displayName= "AST/SGOT" /> <statusCode code="completed" /> <effectiveTime value="126770836100" /> <value unit="Units/L" xsi:type="PQ" value="36" /> <referenceRange> <observationRange> <text>10 -37</text> </observationRange> </referenceRange> </ observation> </component> <component> <observation moodCode= "EVN" classCode="OBS"> <templateId root="2.16.840.1.314602.11.29.21.4.2 " /> <id nullFlavor="NA" /> <code codeSystem="local" code="ALT " displayName="ALT/SGPT" /> <statusCode code="completed" /> < effectiveTime value="369843636368" /> <value unit="Units/L" xsi:type= "PQ" value="23" /> <referenceRange> <observationRange> <text>< 66</text> </observationRange> </ referenceRange> </observation> </component> <component> <observation moodCode="EVN" classCode="OBS"> <templateId root= "03.28.840.1.913404.10.20.22.4.2" /> <id nullFlavor="NA" /> < code codeSystem="local" code="CO2" displayName="CARBON DIOXIDE" /> < statusCode code="completed" /> <effectiveTime value="927968382943" /> <value unit="mmol/L" xsi:type="PQ" value="28" /> < referenceRange> <observationRange> <text>21-32</text> </observationRange> </referenceRange> </observation> </component> <component> <observation moodCode="EVN" classCode= "OBS"> <templateId root="03.28.840.1.891758.10.22.4.2" /> < id nullFlavor="NA" /> <code codeSystem="local" code="TP" displayName= "TOTAL PROTEIN" /> <statusCode code="completed" /> < effectiveTime value="804964032163" /> <value unit="gm/dL" xsi:type="PQ " value="5.4" /> <interpretationCode codeSystem="local" code="*" /> <referenceRange> <observationRange> <text>6.4-8.2 </text> </observationRange> </referenceRange> </ observation> </component> <component> <observation moodCode= "EVN" classCode="OBS"> <templateId root="03.28.840.1.518846.10.2022.4.2 " /> <id nullFlavor="NA" /> <code codeSystem="local" code="ALB " displayName="ALBUMIN" /> <statusCode code="completed" /> < effectiveTime value="519689677117" /> <value unit="gm/dL" xsi:type="PQ " value="2.4" /> <interpretationCode codeSystem="local" code="*" /> <referenceRange> <observationRange> <text>3.4-5.0 </text> </observationRange> </referenceRange> </ observation> </component> <component> <observation moodCode= "EVN" classCode="OBS"> <templateId root="216.840.1.779417.10..22.4.2 " /> <id nullFlavor="NA" /> <code codeSystem="local" code= "BILTOT" displayName="BILI TOTAL" /> <statusCode code="completed" /> <effectiveTime value="928136815994" /> <value unit="mg/dL" xsi: type="PQ" value="0.6" /> <referenceRange> <observationRange > <text>0.0-1.0</text> </observationRange> </ referenceRange> </observation> </component> <component> <observation moodCode="EVN" classCode="OBS"> <templateId root= "16.840.1.264930.10...4.2" /> <id nullFlavor="NA" /> < code codeSystem="local" code="ALKP" displayName="ALKALINE PHOSPHATASE TOTAL" /> <statusCode code="completed" /> <effectiveTime value= "[id number]" /> <value unit="IU/L" xsi:type="PQ" value="85" /> <referenceRange> <observationRange> <text>45-117</ text> </observationRange> </referenceRange> </ observation> </component> </organizer> </entry> <entry> <organizer moodCode="EVN" classCode="BATTERY"> <templateId root= "16.840.1.905954.10.20.22.4.1" /> <id nullFlavor="NA" /> <code codeSystem="local" code="PT" displayName="PROTHROMBIN TIME WITH INR" /> < statusCode code="completed" /> <component> <observation moodCode= "EVN" classCode="OBS"> <templateId root="03.28.840.1.895820.1022.4.2 " /> <id nullFlavor="NA" /> <code codeSystem="local" code= "INRX" displayName="INTERNATIONAL NORMAL RATIO" /> <statusCode code= "completed" /> <effectiveTime value="" /> <value unit="" xsi:type="PQ" value="2.4" /> <interpretationCode codeSystem= "local" code="*" /> <referenceRange> <observationRange> <text>0.9-1.1</text> </observationRange> </ referenceRange> </observation> </component> <component> <observation moodCode="EVN" classCode="OBS"> <templateId root= "03.28.840.1.027857.10.4.2" /> <id nullFlavor="NA" /> < code codeSystem="local" code="PTPAT" displayName="PROTHROMBIN TIME" /> <statusCode code="completed" /> <effectiveTime value="" /> <value unit="sec" xsi:type="PQ" value="27.5" /> < interpretationCode codeSystem="local" code="*" /> <referenceRange> <observationRange> <text>10.0-12.8</text> </ observationRange> </referenceRange> </observation> </ component> </organizer> </entry> <entry> <organizer moodCode="EVN" classCode="BATTERY"> <templateId root="03.28.840.1.666808.10.2022.4.1" /> <id nullFlavor="NA" /> <code codeSystem="local" code="PT" displayName= "PROTHROMBIN TIME WITH INR" /> <statusCode code="completed" /> < component> <observation moodCode="EVN" classCode="OBS"> < templateId root="16.840.1.240975.10..22.4.2" /> <id nullFlavor="NA " /> <code codeSystem="local" code="INRX" displayName="INTERNATIONAL NORMAL RATIO" /> <statusCode code="completed" /> < effectiveTime value="[id number]" /> <value unit="" xsi:type="PQ" value="1.9" /> <interpretationCode codeSystem="local" code="*" /> <referenceRange> <observationRange> <text>0.9-1.1</ text> </observationRange> </referenceRange> </ observation> </component> <component> <observation moodCode= "EVN" classCode="OBS"> <templateId root="03.28.840.1.248397.11.29.21.4.2 " /> <id nullFlavor="NA" /> <code codeSystem="local" code= "PTPAT" displayName="PROTHROMBIN TIME" /> <statusCode code="completed" /> <effectiveTime value="[id number]" /> <value unit="sec" xsi:type="PQ" value="21.8" /> <interpretationCode codeSystem="local" code="*" /> <referenceRange> <observationRange> <text>10.0-12.8</text> </observationRange> </ referenceRange> </observation> </component> </organizer> </entry > <entry> <organizer moodCode="EVN" classCode="BATTERY"> <templateId root="03.28.840.1.985873.10.20.22.4.1" /> <id nullFlavor="NA" /> <code codeSystem="local" code="PT" displayName="PROTHROMBIN TIME WITH INR" /> < statusCode code="completed" /> <component> <observation moodCode= "EVN" classCode="OBS"> <templateId root="03.28.840.1.287350.10...4.2 " /> <id nullFlavor="NA" /> <code codeSystem="local" code= "INRX" displayName="INTERNATIONAL NORMAL RATIO" /> <statusCode code= "completed" /> <effectiveTime value="" /> <value unit="" xsi:type="PQ" value="1.2" /> <interpretationCode codeSystem= "local" code="*" /> <referenceRange> <observationRange> <text>0.9-1.1</text> </observationRange> </ referenceRange> </observation> </component> <component> <observation moodCode="EVN" classCode="OBS"> <templateId root= "03.28.840.1.738267.10..4.2" /> <id nullFlavor="NA" /> < code codeSystem="local" code="PTPAT" displayName="PROTHROMBIN TIME" /> <statusCode code="completed" /> <effectiveTime value="" /> <value unit="sec" xsi:type="PQ" value="13.6" /> < interpretationCode codeSystem="local" code="*" /> <referenceRange> <observationRange> <text>10.0-12.8</text> </ observationRange> </referenceRange> </observation> </ component> </organizer> </entry> <entry> <organizer moodCode="EVN" classCode="BATTERY"> <templateId root="03.28.840.1.645623.10.20.22.4.1" /> <id nullFlavor="NA" /> <code codeSystem="local" code="MRSAS" displayName="MRSA SURVEILLANCE SCREEN" /> <statusCode code="completed" /> <component> <observation moodCode="EVN" classCode="OBS"> < templateId root="03.28.840.1.714389.10...4.2" /> <id nullFlavor="NA " /> <code codeSystem="local" code="MB" displayName="Microbiology" /> <statusCode code="completed" /> <effectiveTime value= "[id number]" /> <value xsi:type="ST" value="<pre><b>MRSA SURVEILLANCE SCREEN</b> See BelowMRSA SURVEILLANCE SCREEN(F) Papo Date/Time: 11/03/2017 05:08 Dina Date/Time: 11/04/2017 07: 23SOURCE: ANTERIOR NARESSPEC DESC: NNO [facility] [place] [address]</pre>" /> <referenceRange> <observationRange> <text /> </observationRange> </referenceRange> </observation> </ component> </organizer> </entry> <entry> <organizer moodCode="EVN" classCode="BATTERY"> <templateId root="840.1.968901.10...4.1" /> <id nullFlavor="NA" /> <code codeSystem="local" code="PT" displayName= "PROTHROMBIN TIME WITH INR" /> <statusCode code="completed" /> < component> <observation moodCode="EVN" classCode="OBS"> < templateId root="03.28.840.1.115823.10..22.4.2" /> <id nullFlavor="NA " /> <code codeSystem="local" code="INRX" displayName="INTERNATIONAL NORMAL RATIO" /> <statusCode code="completed" /> < effectiveTime value="" /> <value unit="" xsi:type="PQ" value="1.2" /> <interpretationCode codeSystem="local" code="*" /> <referenceRange> <observationRange> <text>0.9-1.1</ text> </observationRange> </referenceRange> </ observation> </component> <component> <observation moodCode= "EVN" classCode="OBS"> <templateId root="840.1.863030.11.29.21.4.2 " /> <id nullFlavor="NA" /> <code codeSystem="local" code= "PTPAT" displayName="PROTHROMBIN TIME" /> <statusCode code="completed" /> <effectiveTime value="" /> <value unit="sec" xsi:type="PQ" value="14.0" /> <interpretationCode codeSystem="local" code="*" /> <referenceRange> <observationRange> <text>10.0-12.8</text> </observationRange> </ referenceRange> </observation> </component> </organizer> </entry > <entry> <organizer moodCode="EVN" classCode="BATTERY"> <templateId root="840.1.105436.11.29.21.4.1" /> <id nullFlavor="NA" /> <code codeSystem="local" code="CBC" displayName="CBC" /> <statusCode code= "completed" /> <component> <observation moodCode="EVN" classCode= "OBS"> <templateId root="840.1.586186.11.29.21.4.2" /> < id nullFlavor="NA" /> <code codeSystem="local" code="MCH" displayName= "MEAN CELL HGB" /> <statusCode code="completed" /> < effectiveTime value="" /> <value unit="pg" xsi:type="PQ" value="29.3" /> <referenceRange> <observationRange> <text>27.0-33.0</text> </observationRange> </ referenceRange> </observation> </component> <component> <observation moodCode="EVN" classCode="OBS"> <templateId root= "2.840.1.088322.11.29.21.4.2" /> <id nullFlavor="NA" /> < code codeSystem="local" code="MCHC" displayName="MEAN CELL HGB CONCENTRATION" / > <statusCode code="completed" /> <effectiveTime value= "" /> <value unit="g/dL" xsi:type="PQ" value="31.8" /> <interpretationCode codeSystem="local" code="*" /> < referenceRange> <observationRange> <text>32.0-37.0</text > </observationRange> </referenceRange> </observation > </component> <component> <observation moodCode="EVN" classCode="OBS"> <templateId root="03.28.840.1.451115.11.29.21.4.2" /> <id nullFlavor="NA" /> <code codeSystem="local" code="MCV" displayName="MEAN CELL VOLUME" /> <statusCode code="completed" /> <effectiveTime value="912284130422" /> <value unit="fl" xsi:type= "PQ" value="92.0" /> <referenceRange> <observationRange> <text>80.0-100.0</text> </observationRange> </ referenceRange> </observation> </component> <component> <observation moodCode="EVN" classCode="OBS"> <templateId root= "2.840.1.953391.11.29.21.4.2" /> <id nullFlavor="NA" /> < code codeSystem="local" code="MPVT" displayName="MEAN PLATELET VOLUME" /> <statusCode code="completed" /> <effectiveTime value=" " /> <value unit="fl" xsi:type="PQ" value="10.1" /> < referenceRange> <observationRange> <text>8.5-10.9</text > </observationRange> </referenceRange> </observation > </component> <component> <observation moodCode="EVN" classCode="OBS"> <templateId root="216.840.1.618794.11.29.21.4.2" /> <id nullFlavor="NA" /> <code codeSystem="local" code="RBC" displayName="RED BLOOD CELL" /> <statusCode code="completed" /> <effectiveTime value="" /> <value unit="m/cumm" xsi:type ="PQ" value="3.11" /> <interpretationCode codeSystem="local" code="*" / > <referenceRange> <observationRange> <text> 4.00-6.00</text> </observationRange> </referenceRange> </observation> </component> <component> <observation moodCode="EVN" classCode="OBS"> <templateId root= "16.840.1.678632.11.29.21.4.2" /> <id nullFlavor="NA" /> < code codeSystem="local" code="RDW" displayName="RED CELL DISTRIBUTION WIDTH" /> <statusCode code="completed" /> <effectiveTime value= "" /> <value unit="%" xsi:type="PQ" value="16.5" /> <interpretationCode codeSystem="local" code="*" /> < referenceRange> <observationRange> <text>11.0-15.6</text > </observationRange> </referenceRange> </observation > </component> <component> <observation moodCode="EVN" classCode="OBS"> <templateId root="16.840.1.999920.10.20.22.4.2" /> <id nullFlavor="NA" /> <code codeSystem="local" code="WBC" displayName="WHITE BLOOD CELL" /> <statusCode code="completed" /> <effectiveTime value="042824620647" /> <value unit="k/cumm" xsi: type="PQ" value="7.7" /> <referenceRange> <observationRange > <text>5.0-10.0</text> </observationRange> </ referenceRange> </observation> </component> <component> <observation moodCode="EVN" classCode="OBS"> <templateId root= "03.28.840.1.242424.10...4.2" /> <id nullFlavor="NA" /> < code codeSystem="local" code="HGBT" displayName="HEMOGLOBIN" /> < statusCode code="completed" /> <effectiveTime value="214321239724" /> <value unit="gm/dL" xsi:type="PQ" value="9.1" /> < interpretationCode codeSystem="local" code="*" /> <referenceRange> <observationRange> <text>12.0-16.0</text> </ observationRange> </referenceRange> </observation> </ component> <component> <observation moodCode="EVN" classCode="OBS"> <templateId root="16.840.1.370662.10.20.22.4.2" /> <id nullFlavor="NA" /> <code codeSystem="local" code="HCTT" displayName= "HEMATOCRIT" /> <statusCode code="completed" /> < effectiveTime value="882884509306" /> <value unit="%" xsi:type="PQ " value="28.6" /> <interpretationCode codeSystem="local" code="*" /> <referenceRange> <observationRange> <text>37.0- 47.0</text> </observationRange> </referenceRange> </ observation> </component> <component> <observation moodCode= "EVN" classCode="OBS"> <templateId root="2.16.840.1.901364.10.20.22.4.2 " /> <id nullFlavor="NA" /> <code codeSystem="local" code= "NRBC%" displayName="NRBC %" /> <statusCode code="completed" / > <effectiveTime value="" /> <value unit="/100WBC " xsi:type="PQ" value="0.0" /> <referenceRange> < observationRange> <text>0.0-0.0</text> </ observationRange> </referenceRange> </observation> </ component> <component> <observation moodCode="EVN" classCode="OBS"> <templateId root="2.16.840.1.515279.10..22.4.2" /> <id nullFlavor="NA" /> <code codeSystem="local" code="PLTT" displayName= "PLATELET COUNT" /> <statusCode code="completed" /> < effectiveTime value="" /> <value unit="k/cumm" xsi:type="PQ " value="115" /> <interpretationCode codeSystem="local" code="*" /> <referenceRange> <observationRange> <text>150-400 </text> </observationRange> </referenceRange> </ observation> </component> <component> <observation moodCode= "EVN" classCode="OBS"> <templateId root="16.840.1.973484.10..22.4.2 " /> <id nullFlavor="NA" /> <code codeSystem="local" code= "IPFT" displayName="IMMATURE PLATELET FRACTION" /> <statusCode code= "completed" /> <effectiveTime value="115928353340" /> <value unit="%" xsi:type="PQ" value="2.9" /> <referenceRange> < observationRange> <text>1.1-6.1</text> </ observationRange> </referenceRange> </observation> </ component> </organizer> </entry> <entry> <organizer moodCode="EVN" classCode="BATTERY"> <templateId root="16.840.1.233206.10..22.4.1" /> <id nullFlavor="NA" /> <code codeSystem="local" code="METABC" displayName="METABOLIC PANEL, COMPREHN" /> <statusCode code="completed" /> <component> <observation moodCode="EVN" classCode="OBS"> < templateId root="16.840.1.397082.10..22.4.2" /> <id nullFlavor="NA " /> <code codeSystem="local" code="K" displayName="POTASSIUM" /> <statusCode code="completed" /> <effectiveTime value="470957990634 " /> <value unit="mmol/L" xsi:type="PQ" value="4.3" /> < referenceRange> <observationRange> <text>3.5-5.3</text> </observationRange> </referenceRange> </observation > </component> <component> <observation moodCode="EVN" classCode="OBS"> <templateId root="216.840.1.489974.10..22.4.2" /> <id nullFlavor="NA" /> <code codeSystem="local" code="eGFR" displayName="EST GFR (MDRD)" /> <statusCode code="completed" /> <effectiveTime value="" /> <value unit="mL/min" xsi:type ="PQ" value="> 60" /> <referenceRange> <observationRange > <text>> 59</text> </observationRange> </ referenceRange> </observation> </component> <component> <observation moodCode="EVN" classCode="OBS"> <templateId root= "16.840.1.863136.10..4.2" /> <id nullFlavor="NA" /> < code codeSystem="local" code="GAP" displayName="ANION GAP" /> < statusCode code="completed" /> <effectiveTime value="" /> <value unit="mmol/L" xsi:type="PQ" value="7" /> < referenceRange> <observationRange> <text>5-15</text> </observationRange> </referenceRange> </observation> </component> <component> <observation moodCode="EVN" classCode= "OBS"> <templateId root="03.28.840.1.595757.10.4.2" /> < id nullFlavor="NA" /> <code codeSystem="local" code="eCrCl" displayName ="EST CrCl (CG)" /> <statusCode code="completed" /> < effectiveTime value="" /> <value unit="mL/min" xsi:type="PQ " value="> 60" /> <referenceRange> <observationRange> <text>> 59</text> </observationRange> </ referenceRange> </observation> </component> <component> <observation moodCode="EVN" classCode="OBS"> <templateId root= "16.840.1.940272.10..4.2" /> <id nullFlavor="NA" /> < code codeSystem="local" code="GLU" displayName="GLUCOSE" /> < statusCode code="completed" /> <effectiveTime value="" /> <value unit="mg/dL" xsi:type="PQ" value="89" /> < referenceRange> <observationRange> <text>70-99</text> </observationRange> </referenceRange> </observation> </component> <component> <observation moodCode="EVN" classCode= "OBS"> <templateId root="16.840.1.715480.11.29.21.4.2" /> < id nullFlavor="NA" /> <code codeSystem="local" code="CA" displayName= "CALCIUM" /> <statusCode code="completed" /> <effectiveTime value="" /> <value unit="mg/dL" xsi:type="PQ" value="8.3" / > <interpretationCode codeSystem="local" code="*" /> < referenceRange> <observationRange> <text>8.5-10.1</text > </observationRange> </referenceRange> </observation > </component> <component> <observation moodCode="EVN" classCode="OBS"> <templateId root="03.28.840.1.148487...4.2" /> <id nullFlavor="NA" /> <code codeSystem="local" code="BUN" displayName="BLOOD UREA NITROGEN" /> <statusCode code="completed" /> <effectiveTime value="" /> <value unit="mg/dL" xsi: type="PQ" value="15" /> <referenceRange> <observationRange> <text>7-20</text> </observationRange> </ referenceRange> </observation> </component> <component> <observation moodCode="EVN" classCode="OBS"> <templateId root= "216.840.1.998803.10...4.2" /> <id nullFlavor="NA" /> < code codeSystem="local" code="CREAT" displayName="CREATININE" /> < statusCode code="completed" /> <effectiveTime value="" /> <value unit="mg/dL" xsi:type="PQ" value="0.7" /> < referenceRange> <observationRange> <text>0.6-1.0</text> </observationRange> </referenceRange> </observation > </component> <component> <observation moodCode="EVN" classCode="OBS"> <templateId root="03.28.840.1.987248.11.29.21.4.2" /> <id nullFlavor="NA" /> <code codeSystem="local" code="NA" displayName="SODIUM" /> <statusCode code="completed" /> < effectiveTime value="" /> <value unit="mmol/L" xsi:type="PQ " value="142" /> <referenceRange> <observationRange> <text>135-148</text> </observationRange> </ referenceRange> </observation> </component> <component> <observation moodCode="EVN" classCode="OBS"> <templateId root= "03.28.840.1.018095.10..22.4.2" /> <id nullFlavor="NA" /> < code codeSystem="local" code="CL" displayName="CHLORIDE" /> < statusCode code="completed" /> <effectiveTime value="" /> <value unit="mmol/L" xsi:type="PQ" value="109" /> < referenceRange> <observationRange> <text>98-110</text> </observationRange> </referenceRange> </observation> </component> <component> <observation moodCode="EVN" classCode ="OBS"> <templateId root="216.840.1.490443.10..4.2" /> < id nullFlavor="NA" /> <code codeSystem="local" code="AST" displayName= "AST/SGOT" /> <statusCode code="completed" /> <effectiveTime value="033272963666" /> <value unit="Units/L" xsi:type="PQ" value="38" /> <interpretationCode codeSystem="local" code="*" /> < referenceRange> <observationRange> <text>10-37</text> </observationRange> </referenceRange> </observation> </component> <component> <observation moodCode="EVN" classCode= "OBS"> <templateId root="03.28.840.1.759455.10..4.2" /> < id nullFlavor="NA" /> <code codeSystem="local" code="ALT" displayName= "ALT/SGPT" /> <statusCode code="completed" /> <effectiveTime value="312125313854" /> <value unit="Units/L" xsi:type="PQ" value="42" /> <referenceRange> <observationRange> <text>& lt; 66</text> </observationRange> </referenceRange> < /observation> </component> <component> <observation moodCode= "EVN" classCode="OBS"> <templateId root="2.840.1.103603.11.29.21.4.2 " /> <id nullFlavor="NA" /> <code codeSystem="local" code="CO2 " displayName="CARBON DIOXIDE" /> <statusCode code="completed" /> <effectiveTime value="" /> <value unit="mmol/L" xsi: type="PQ" value="26" /> <referenceRange> <observationRange> <text>21-32</text> </observationRange> </ referenceRange> </observation> </component> <component> <observation moodCode="EVN" classCode="OBS"> <templateId root= "2.16.840.1.363319.11.29.21.4.2" /> <id nullFlavor="NA" /> < code codeSystem="local" code="TP" displayName="TOTAL PROTEIN" /> < statusCode code="completed" /> <effectiveTime value="" /> <value unit="gm/dL" xsi:type="PQ" value="5.8" /> < interpretationCode codeSystem="local" code="*" /> <referenceRange> <observationRange> <text>6.4-8.2</text> </ observationRange> </referenceRange> </observation> </ component> <component> <observation moodCode="EVN" classCode="OBS"> <templateId root="216.840.1.352077.22.4.2" /> <id nullFlavor="NA" /> <code codeSystem="local" code="ALB" displayName= "ALBUMIN" /> <statusCode code="completed" /> <effectiveTime value="" /> <value unit="gm/dL" xsi:type="PQ" value="2.7" / > <interpretationCode codeSystem="local" code="*" /> < referenceRange> <observationRange> <text>3.4-5.0</text> </observationRange> </referenceRange> </observation > </component> <component> <observation moodCode="EVN" classCode="OBS"> <templateId root="216.840.1.265156.10..4.2" /> <id nullFlavor="NA" /> <code codeSystem="local" code="BILTOT" displayName="BILI TOTAL" /> <statusCode code="completed" /> < effectiveTime value="" /> <value unit="mg/dL" xsi:type="PQ " value="0.3" /> <referenceRange> <observationRange> <text>0.0-1.0</text> </observationRange> </ referenceRange> </observation> </component> <component> <observation moodCode="EVN" classCode="OBS"> <templateId root= "03.28.840.1.449546.11.29.21.4.2" /> <id nullFlavor="NA" /> < code codeSystem="local" code="ALKP" displayName="ALKALINE PHOSPHATASE TOTAL" /> <statusCode code="completed" /> <effectiveTime value= "" /> <value unit="IU/L" xsi:type="PQ" value="121" /> <interpretationCode codeSystem="local" code="*" /> <referenceRange > <observationRange> <text>45-117</text> </ observationRange> </referenceRange> </observation> </ component> </organizer> </entry> <entry> <organizer moodCode="EVN" classCode="BATTERY"> <templateId root="16.840.1.003068.10...4.1" /> <id nullFlavor="NA" /> <code codeSystem="local" code="CBC" displayName ="CBC" /> <statusCode code="completed" /> <component> < observation moodCode="EVN" classCode="OBS"> <templateId root= "16.840.1.189626.22.4.2" /> <id nullFlavor="NA" /> < code codeSystem="local" code="MCH" displayName="MEAN CELL HGB" /> < statusCode code="completed" /> <effectiveTime value="" /> <value unit="pg" xsi:type="PQ" value="29.7" /> <referenceRange > <observationRange> <text>27.0-33.0</text> < /observationRange> </referenceRange> </observation> </ component> <component> <observation moodCode="EVN" classCode="OBS"> <templateId root="16.840.1.379009.11.29.21.4.2" /> <id nullFlavor="NA" /> <code codeSystem="local" code="MCHC" displayName= "MEAN CELL HGB CONCENTRATION" /> <statusCode code="completed" /> <effectiveTime value="" /> <value unit="g/dL" xsi:type= "PQ" value="31.2" /> <interpretationCode codeSystem="local" code="*" / > <referenceRange> <observationRange> <text> 32.0-37.0</text> </observationRange> </referenceRange> </observation> </component> <component> <observation moodCode="EVN" classCode="OBS"> <templateId root= "03.28.840.1.489010.1022.4.2" /> <id nullFlavor="NA" /> < code codeSystem="local" code="MCV" displayName="MEAN CELL VOLUME" /> < statusCode code="completed" /> <effectiveTime value="285548887765" /> <value unit="fl" xsi:type="PQ" value="95.4" /> <referenceRange > <observationRange> <text>80.0-100.0</text> </observationRange> </referenceRange> </observation> </ component> <component> <observation moodCode="EVN" classCode="OBS"> <templateId root="03.28.840.1.129398.22.4.2" /> <id nullFlavor="NA" /> <code codeSystem="local" code="MPVT" displayName= "MEAN PLATELET VOLUME" /> <statusCode code="completed" /> < effectiveTime value="451165239268" /> <value unit="fl" xsi:type="PQ" value="10.6" /> <referenceRange> <observationRange> <text>8.5-10.9</text> </observationRange> </ referenceRange> </observation> </component> <component> <observation moodCode="EVN" classCode="OBS"> <templateId root= "03.28.840.1.404052.11.29.21.4.2" /> <id nullFlavor="NA" /> < code codeSystem="local" code="RBC" displayName="RED BLOOD CELL" /> < statusCode code="completed" /> <effectiveTime value="" /> <value unit="m/cumm" xsi:type="PQ" value="3.06" /> < interpretationCode codeSystem="local" code="*" /> <referenceRange> <observationRange> <text>4.00-6.00</text> </ observationRange> </referenceRange> </observation> </ component> <component> <observation moodCode="EVN" classCode="OBS"> <templateId root="16.840.1.486937.11.29.21.4.2" /> <id nullFlavor="NA" /> <code codeSystem="local" code="RDW" displayName=" RED CELL DISTRIBUTION WIDTH" /> <statusCode code="completed" /> <effectiveTime value="" /> <value unit="%" xsi:type= "PQ" value="17.5" /> <interpretationCode codeSystem="local" code="*" / > <referenceRange> <observationRange> <text> 11.0-15.6</text> </observationRange> </referenceRange> </observation> </component> <component> <observation moodCode="EVN" classCode="OBS"> <templateId root= "2.16.840.1.572386.11.29.21.4.2" /> <id nullFlavor="NA" /> < code codeSystem="local" code="WBC" displayName="WHITE BLOOD CELL" /> < statusCode code="completed" /> <effectiveTime value="" /> <value unit="k/cumm" xsi:type="PQ" value="8.6" /> < referenceRange> <observationRange> <text>5.0-10.0</text > </observationRange> </referenceRange> </observation > </component> <component> <observation moodCode="EVN" classCode="OBS"> <templateId root="2.16.840.1.267556.1022.4.2" /> <id nullFlavor="NA" /> <code codeSystem="local" code="HGBT" displayName="HEMOGLOBIN" /> <statusCode code="completed" /> < effectiveTime value="" /> <value unit="gm/dL" xsi:type="PQ " value="9.1" /> <interpretationCode codeSystem="local" code="*" /> <referenceRange> <observationRange> <text>12.0- 16.0</text> </observationRange> </referenceRange> </ observation> </component> <component> <observation moodCode= "EVN" classCode="OBS"> <templateId root="03.28.840.1.224311.10.2022.4.2 " /> <id nullFlavor="NA" /> <code codeSystem="local" code= "HCTT" displayName="HEMATOCRIT" /> <statusCode code="completed" /> <effectiveTime value="" /> <value unit="%" xsi: type="PQ" value="29.2" /> <interpretationCode codeSystem="local" code= "*" /> <referenceRange> <observationRange> < text>37.0-47.0</text> </observationRange> </referenceRange> </observation> </component> <component> <observation moodCode="EVN" classCode="OBS"> <templateId root= "03.28.840.1.459651.104.2" /> <id nullFlavor="NA" /> < code codeSystem="local" code="NRBC%" displayName="NRBC %" /> < statusCode code="completed" /> <effectiveTime value="" /> <value unit="/100WBC" xsi:type="PQ" value="0.0" /> < referenceRange> <observationRange> <text>0.0-0.0</text> </observationRange> </referenceRange> </observation > </component> <component> <observation moodCode="EVN" classCode="OBS"> <templateId root="03.28.840.1.055825.10.2022.4.2" /> <id nullFlavor="NA" /> <code codeSystem="local" code="PLTT" displayName="PLATELET COUNT" /> <statusCode code="completed" /> <effectiveTime value="017021185882" /> <value unit="k/cumm" xsi:type ="PQ" value="123" /> <interpretationCode codeSystem="local" code="*" / > <referenceRange> <observationRange> <text>150 -400</text> </observationRange> </referenceRange> </ observation> </component> <component> <observation moodCode= "EVN" classCode="OBS"> <templateId root="16.840.1.751454.10.22.4.2 " /> <id nullFlavor="NA" /> <code codeSystem="local" code= "IPFT" displayName="IMMATURE PLATELET FRACTION" /> <statusCode code= "completed" /> <effectiveTime value="" /> <value unit="%" xsi:type="PQ" value="2.3" /> <referenceRange> < observationRange> <text>1.1-6.1</text> </ observationRange> </referenceRange> </observation> </ component> </organizer> </entry> <entry> <organizer moodCode="EVN" classCode="BATTERY"> <templateId root="03.28.840.1.307343.22.4.1" /> <id nullFlavor="NA" /> <code codeSystem="local" code="PT" displayName= "PROTHROMBIN TIME WITH INR" /> <statusCode code="completed" /> < component> <observation moodCode="EVN" classCode="OBS"> < templateId root="03.28.840.1.882928.102022.4.2" /> <id nullFlavor="NA " /> <code codeSystem="local" code="INRX" displayName="INTERNATIONAL NORMAL RATIO" /> <statusCode code="completed" /> < effectiveTime value="" /> <value unit="" xsi:type="PQ" value="1.8" /> <interpretationCode codeSystem="local" code="*" /> <referenceRange> <observationRange> <text>0.9-1.1</ text> </observationRange> </referenceRange> </ observation> </component> <component> <observation moodCode= "EVN" classCode="OBS"> <templateId root="840.1.562599.11.29.21.4.2 " /> <id nullFlavor="NA" /> <code codeSystem="local" code= "PTPAT" displayName="PROTHROMBIN TIME" /> <statusCode code="completed" /> <effectiveTime value="" /> <value unit="sec" xsi:type="PQ" value="21.0" /> <interpretationCode codeSystem="local" code="*" /> <referenceRange> <observationRange> <text>10.0-12.8</text> </observationRange> </ referenceRange> </observation> </component> </organizer> </entry > <entry> <organizer moodCode="EVN" classCode="BATTERY"> <templateId root="840.1.074525.11.29.21.4.1" /> <id nullFlavor="NA" /> <code codeSystem="local" code="GLUMON" displayName="GLUCOSE (POC)" /> < statusCode code="completed" /> <component> <observation moodCode= "EVN" classCode="OBS"> <templateId root="03.28.840.1.090826.11.29.21.4.2 " /> <id nullFlavor="NA" /> <code codeSystem="local" code= "GLUMON" displayName="GLUCOSE (POC)" /> <statusCode code="completed" / > <effectiveTime value="360750978808" /> <value unit="mg/dL" xsi:type="PQ" value="123" /> <interpretationCode codeSystem="local" code="*" /> <referenceRange> <observationRange> <text>70-99</text> </observationRange> </referenceRange> </observation> </component> </organizer> </entry> <entry> < organizer moodCode="EVN" classCode="BATTERY"> <templateId root= "216.840.1.102513.10..22.4.1" /> <id nullFlavor="NA" /> <code codeSystem="local" code="ABG" displayName="ARTERIAL BLOOD GAS" /> < statusCode code="completed" /> <component> <observation moodCode= "EVN" classCode="OBS"> <templateId root="216.840.1.007714.10..4.2 " /> <id nullFlavor="NA" /> <code codeSystem="local" code="COLE " displayName="ABG BASE EXCESS" /> <statusCode code="completed" /> <effectiveTime value="892822384996" /> <value unit="meq/L" xsi: type="PQ" value="0.7" /> <referenceRange> <observationRange > <text>-3.0-3.0</text> </observationRange> </ referenceRange> </observation> </component> <component> <observation moodCode="EVN" classCode="OBS"> <templateId root= "16.840.1.600076.10..4.2" /> <id nullFlavor="NA" /> < code codeSystem="local" code="HCO3A" displayName="ABG BICARBONATE" /> < statusCode code="completed" /> <effectiveTime value="102430286986" /> <value unit="meq/L" xsi:type="PQ" value="24.9" /> < referenceRange> <observationRange> <text>23.0-28.0</text > </observationRange> </referenceRange> </observation > </component> <component> <observation moodCode="EVN" classCode="OBS"> <templateId root="03.28.840.1.847468.10...4.2" /> <id nullFlavor="NA" /> <code codeSystem="local" code="PCO2A" displayName="ABG PCO2" /> <statusCode code="completed" /> < effectiveTime value="318731625081" /> <value unit="mmHg" xsi:type="PQ" value="38" /> <referenceRange> <observationRange> <text>34-45</text> </observationRange> </referenceRange > </observation> </component> <component> <observation moodCode="EVN" classCode="OBS"> <templateId root= "03.28.840.1.539717.10..4.2" /> <id nullFlavor="NA" /> < code codeSystem="local" code="PHAX" displayName="ABG PH" /> < statusCode code="completed" /> <effectiveTime value="889651221884" /> <value unit="" xsi:type="PQ" value="7.44" /> <referenceRange> <observationRange> <text>7.35-7.45</text> </ observationRange> </referenceRange> </observation> </ component> <component> <observation moodCode="EVN" classCode="OBS"> <templateId root="16.840.1.910474.10..22.4.2" /> <id nullFlavor="NA" /> <code codeSystem="local" code="PO2A" displayName= "ABG PO2" /> <statusCode code="completed" /> <effectiveTime value="542652967390" /> <value unit="mmHg" xsi:type="PQ" value="76" /> <referenceRange> <observationRange> <text>75- 100</text> </observationRange> </referenceRange> </ observation> </component> <component> <observation moodCode= "EVN" classCode="OBS"> <templateId root="03.28.840.1.126176.10..4.2 " /> <id nullFlavor="NA" /> <code codeSystem="local" code= "SATA" displayName="ABG O2 SATURATION" /> <statusCode code="completed" /> <effectiveTime value="900154647989" /> <value unit="%" xsi:type="PQ" value="96" /> <referenceRange> < observationRange> <text>93-100</text> </observationRange > </referenceRange> </observation> </component> </ organizer> </entry> <entry> <organizer moodCode="EVN" classCode="BATTERY"> <templateId root="03.28.840.1.076115.10...4.1" /> <id nullFlavor= "NA" /> <code codeSystem="local" code="BC" displayName="BLOOD CULTURE" /> <statusCode code="completed" /> <component> <observation moodCode="EVN" classCode="OBS"> <templateId root= "840.1.136540.10...4.2" /> <id nullFlavor="NA" /> < code codeSystem="local" code="MB" displayName="Microbiology" /> < statusCode code="completed" /> <effectiveTime value="400437292207" /> <value xsi:type="ST" value="<pre><b>BLOOD CULTURE</b> See BelowIs this a Possible Sepsis/Sepsis patient? YesBLOOD CULTURE(F) Papo Date/ Time: 11/05/2017 16:54 Dina Date/Time: 11/11/2017 03:02SOURCE: BLOODSPEC DESC: [id number] GROWTH AFTER [id number] [place] [address]</pre>" /> <referenceRange > <observationRange> <text /> </ observationRange> </referenceRange> </observation> </ component> </organizer> </entry> <entry> <organizer moodCode="EVN" classCode="BATTERY"> <templateId root="2.16.840.1.454222.10.20.22.4.1" /> <id nullFlavor="NA" /> <code codeSystem="local" code="BC" displayName= "BLOOD CULTURE" /> <statusCode code="completed" /> <component> <observation moodCode="EVN" classCode="OBS"> <templateId root= "2.16.840.1.649798.10.20.22.4.2" /> <id nullFlavor="NA" /> < code codeSystem="local" code="MB" displayName="Microbiology" /> < statusCode code="completed" /> <effectiveTime value="322277812958" /> <value xsi:type="ST" value="<pre><b>BLOOD CULTURE</b> See BelowIs this a Possible Sepsis/Sepsis patient? YesBLOOD CULTURE(F) Papo Date/ Time: 11/05/2017 16:54 Dina Date/Time: 11/11/2017 03:02SOURCE: BLOODSPEC DESC: [id number] GROWTH AFTER [id number] [place] [address]</pre>" /> <referenceRange > <observationRange> <text /> </ observationRange> </referenceRange> </observation> </ component> </organizer> </entry> <entry> <organizer moodCode="EVN" classCode="BATTERY"> <templateId root="840.1.265479.10.4.1" /> <id nullFlavor="NA" /> <code codeSystem="local" code="LACTG" displayName="LACTIC ACID" /> <statusCode code="completed" /> < component> <observation moodCode="EVN" classCode="OBS"> < templateId root="840.1.967840.11.29.21.4.2" /> <id nullFlavor="NA " /> <code codeSystem="local" code="LACT" displayName="LACTIC ACID" /> <statusCode code="completed" /> <effectiveTime value= "042011417857" /> <value unit="mmol/L" xsi:type="PQ" value="1.6" /> <referenceRange> <observationRange> <text>0.5-2.0 </text> </observationRange> </referenceRange> </ observation> </component> </organizer> </entry> <entry> <organizer moodCode="EVN" classCode="BATTERY"> <templateId root= "840.1.349134.11.29.21.4.1" /> <id nullFlavor="NA" /> <code codeSystem="local" code="CBC" displayName="CBC" /> <statusCode code= "completed" /> <component> <observation moodCode="EVN" classCode= "OBS"> <templateId root="840.1.417456.11.29.21.4.2" /> < id nullFlavor="NA" /> <code codeSystem="local" code="MCH" displayName= "MEAN CELL HGB" /> <statusCode code="completed" /> < effectiveTime value="001666601994" /> <value unit="pg" xsi:type="PQ" value="30.1" /> <referenceRange> <observationRange> <text>27.0-33.0</text> </observationRange> </ referenceRange> </observation> </component> <component> <observation moodCode="EVN" classCode="OBS"> <templateId root= "216.840.1.167655.22.4.2" /> <id nullFlavor="NA" /> < code codeSystem="local" code="MCHC" displayName="MEAN CELL HGB CONCENTRATION" / > <statusCode code="completed" /> <effectiveTime value= "249522986185" /> <value unit="g/dL" xsi:type="PQ" value="31.4" /> <interpretationCode codeSystem="local" code="*" /> < referenceRange> <observationRange> <text>32.0-37.0</text > </observationRange> </referenceRange> </observation > </component> <component> <observation moodCode="EVN" classCode="OBS"> <templateId root="216.840.1.414115.22.4.2" /> <id nullFlavor="NA" /> <code codeSystem="local" code="MCV" displayName="MEAN CELL VOLUME" /> <statusCode code="completed" /> <effectiveTime value="111597735667" /> <value unit="fl" xsi:type= "PQ" value="95.8" /> <referenceRange> <observationRange> <text>80.0-100.0</text> </observationRange> </ referenceRange> </observation> </component> <component> <observation moodCode="EVN" classCode="OBS"> <templateId root= "216.840.1.598121.1022.4.2" /> <id nullFlavor="NA" /> < code codeSystem="local" code="MPVT" displayName="MEAN PLATELET VOLUME" /> <statusCode code="completed" /> <effectiveTime value=" " /> <value unit="fl" xsi:type="PQ" value="10.7" /> < referenceRange> <observationRange> <text>8.5-10.9</text > </observationRange> </referenceRange> </observation > </component> <component> <observation moodCode="EVN" classCode="OBS"> <templateId root="216.840.1.281256.11.29.21.4.2" /> <id nullFlavor="NA" /> <code codeSystem="local" code="RBC" displayName="RED BLOOD CELL" /> <statusCode code="completed" /> <effectiveTime value="" /> <value unit="m/cumm" xsi:type ="PQ" value="3.12" /> <interpretationCode codeSystem="local" code="*" / > <referenceRange> <observationRange> <text> 4.00-6.00</text> </observationRange> </referenceRange> </observation> </component> <component> <observation moodCode="EVN" classCode="OBS"> <templateId root= "03.28.840.1.475311.11.29.21.4.2" /> <id nullFlavor="NA" /> < code codeSystem="local" code="RDW" displayName="RED CELL DISTRIBUTION WIDTH" /> <statusCode code="completed" /> <effectiveTime value= "" /> <value unit="%" xsi:type="PQ" value="17.5" /> <interpretationCode codeSystem="local" code="*" /> < referenceRange> <observationRange> <text>11.0-15.6</text > </observationRange> </referenceRange> </observation > </component> <component> <observation moodCode="EVN" classCode="OBS"> <templateId root="16.840.1.662757.10.20.22.4.2" /> <id nullFlavor="NA" /> <code codeSystem="local" code="WBC" displayName="WHITE BLOOD CELL" /> <statusCode code="completed" /> <effectiveTime value="" /> <value unit="k/cumm" xsi: type="PQ" value="6.7" /> <referenceRange> <observationRange > <text>5.0-10.0</text> </observationRange> </ referenceRange> </observation> </component> <component> <observation moodCode="EVN" classCode="OBS"> <templateId root= "03.28.840.1.495309...4.2" /> <id nullFlavor="NA" /> < code codeSystem="local" code="HGBT" displayName="HEMOGLOBIN" /> < statusCode code="completed" /> <effectiveTime value="020353020742" /> <value unit="gm/dL" xsi:type="PQ" value="9.4" /> < interpretationCode codeSystem="local" code="*" /> <referenceRange> <observationRange> <text>12.0-16.0</text> </ observationRange> </referenceRange> </observation> </ component> <component> <observation moodCode="EVN" classCode="OBS"> <templateId root="16.840.1.235604.10..22.4.2" /> <id nullFlavor="NA" /> <code codeSystem="local" code="HCTT" displayName= "HEMATOCRIT" /> <statusCode code="completed" /> < effectiveTime value="" /> <value unit="%" xsi:type="PQ " value="29.9" /> <interpretationCode codeSystem="local" code="*" /> <referenceRange> <observationRange> <text>37.0- 47.0</text> </observationRange> </referenceRange> </ observation> </component> <component> <observation moodCode= "EVN" classCode="OBS"> <templateId root="2.16.840.1.538340.10..22.4.2 " /> <id nullFlavor="NA" /> <code codeSystem="local" code= "NRBC%" displayName="NRBC %" /> <statusCode code="completed" / > <effectiveTime value="" /> <value unit="/100WBC " xsi:type="PQ" value="0.0" /> <referenceRange> < observationRange> <text>0.0-0.0</text> </ observationRange> </referenceRange> </observation> </ component> <component> <observation moodCode="EVN" classCode="OBS"> <templateId root="2.16.840.1.969699.10..22.4.2" /> <id nullFlavor="NA" /> <code codeSystem="local" code="PLTT" displayName= "PLATELET COUNT" /> <statusCode code="completed" /> < effectiveTime value="" /> <value unit="k/cumm" xsi:type="PQ " value="116" /> <interpretationCode codeSystem="local" code="*" /> <referenceRange> <observationRange> <text>150-400 </text> </observationRange> </referenceRange> </ observation> </component> <component> <observation moodCode= "EVN" classCode="OBS"> <templateId root="216.840.1.904971.10..22.4.2 " /> <id nullFlavor="NA" /> <code codeSystem="local" code= "IPFT" displayName="IMMATURE PLATELET FRACTION" /> <statusCode code= "completed" /> <effectiveTime value="543585736034" /> <value unit="%" xsi:type="PQ" value="2.6" /> <referenceRange> < observationRange> <text>1.1-6.1</text> </ observationRange> </referenceRange> </observation> </ component> </organizer> </entry> <entry> <organizer moodCode="EVN" classCode="BATTERY"> <templateId root="216.840.1.306750.10..22.4.1" /> <id nullFlavor="NA" /> <code codeSystem="local" code="METABC" displayName="METABOLIC PANEL, COMPREHN" /> <statusCode code="completed" /> <component> <observation moodCode="EVN" classCode="OBS"> < templateId root="2.16.840.1.995853.10..22.4.2" /> <id nullFlavor="NA " /> <code codeSystem="local" code="K" displayName="POTASSIUM" /> <statusCode code="completed" /> <effectiveTime value="874418480304 " /> <value unit="mmol/L" xsi:type="PQ" value="4.3" /> < referenceRange> <observationRange> <text>3.5-5.3</text> </observationRange> </referenceRange> </observation > </component> <component> <observation moodCode="EVN" classCode="OBS"> <templateId root="216.840.1.891669.10..22.4.2" /> <id nullFlavor="NA" /> <code codeSystem="local" code="eGFR" displayName="EST GFR (MDRD)" /> <statusCode code="completed" /> <effectiveTime value="" /> <value unit="mL/min" xsi:type ="PQ" value="26" /> <interpretationCode codeSystem="local" code="*" /> <referenceRange> <observationRange> <text>&gt ; 59</text> </observationRange> </referenceRange> </ observation> </component> <component> <observation moodCode= "EVN" classCode="OBS"> <templateId root="16.840.1.133996.10..4.2 " /> <id nullFlavor="NA" /> <code codeSystem="local" code="GAP " displayName="ANION GAP" /> <statusCode code="completed" /> < effectiveTime value="" /> <value unit="mmol/L" xsi:type="PQ " value="7" /> <referenceRange> <observationRange> <text>5-15</text> </observationRange> </referenceRange > </observation> </component> <component> <observation moodCode="EVN" classCode="OBS"> <templateId root= "03.28.840.1.232222.10...4.2" /> <id nullFlavor="NA" /> < code codeSystem="local" code="eCrCl" displayName="EST CrCl (CG)" /> < statusCode code="completed" /> <effectiveTime value="" /> <value unit="mL/min" xsi:type="PQ" value="27" /> < interpretationCode codeSystem="local" code="*" /> <referenceRange> <observationRange> <text>> 59</text> </ observationRange> </referenceRange> </observation> </ component> <component> <observation moodCode="EVN" classCode="OBS"> <templateId root="03.28.840.1.341397.10.20.22.4.2" /> <id nullFlavor="NA" /> <code codeSystem="local" code="GLU" displayName= "GLUCOSE" /> <statusCode code="completed" /> <effectiveTime value="" /> <value unit="mg/dL" xsi:type="PQ" value="116" / > <interpretationCode codeSystem="local" code="*" /> < referenceRange> <observationRange> <text>70-99</text> </observationRange> </referenceRange> </observation> </component> <component> <observation moodCode="EVN" classCode= "OBS"> <templateId root="840.1.722196.10..4.2" /> < id nullFlavor="NA" /> <code codeSystem="local" code="CA" displayName= "CALCIUM" /> <statusCode code="completed" /> <effectiveTime value="" /> <value unit="mg/dL" xsi:type="PQ" value="8.7" / > <referenceRange> <observationRange> <text>8.5 -10.1</text> </observationRange> </referenceRange> </ observation> </component> <component> <observation moodCode= "EVN" classCode="OBS"> <templateId root="03.28.840.1.952591.10..22.4.2 " /> <id nullFlavor="NA" /> <code codeSystem="local" code="BUN " displayName="BLOOD UREA NITROGEN" /> <statusCode code="completed" /> <effectiveTime value="294613280918" /> <value unit="mg/dL" xsi:type="PQ" value="27" /> <interpretationCode codeSystem="local" code ="*" /> <referenceRange> <observationRange> < text>7-20</text> </observationRange> </referenceRange> </observation> </component> <component> <observation moodCode="EVN" classCode="OBS"> <templateId root= "2.16.840.1.621742.10.20.22.4.2" /> <id nullFlavor="NA" /> < code codeSystem="local" code="CREAT" displayName="CREATININE" /> < statusCode code="completed" /> <effectiveTime value="717440844824" /> <value unit="mg/dL" xsi:type="PQ" value="1.9" /> < interpretationCode codeSystem="local" code="*" /> <referenceRange> <observationRange> <text>0.6-1.0</text> </ observationRange> </referenceRange> </observation> </ component> <component> <observation moodCode="EVN" classCode="OBS"> <templateId root="2.16.840.1.830459.10..22.4.2" /> <id nullFlavor="NA" /> <code codeSystem="local" code="NA" displayName= "SODIUM" /> <statusCode code="completed" /> <effectiveTime value="105116407256" /> <value unit="mmol/L" xsi:type="PQ" value="135" /> <referenceRange> <observationRange> <text> 135-148</text> </observationRange> </referenceRange> </observation> </component> <component> <observation moodCode= "EVN" classCode="OBS"> <templateId root="16.840.1.158042.10.20.22.4.2 " /> <id nullFlavor="NA" /> <code codeSystem="local" code="CL " displayName="CHLORIDE" /> <statusCode code="completed" /> < effectiveTime value="419336815653" /> <value unit="mmol/L" xsi:type="PQ " value="103" /> <referenceRange> <observationRange> <text>98-110</text> </observationRange> </ referenceRange> </observation> </component> <component> <observation moodCode="EVN" classCode="OBS"> <templateId root= "16.840.1.092572.10.22.4.2" /> <id nullFlavor="NA" /> < code codeSystem="local" code="AST" displayName="AST/SGOT" /> < statusCode code="completed" /> <effectiveTime value="" /> <value unit="Units/L" xsi:type="PQ" value="471" /> < interpretationCode codeSystem="local" code="*" /> <referenceRange> <observationRange> <text>10-37</text> </ observationRange> </referenceRange> </observation> </ component> <component> <observation moodCode="EVN" classCode="OBS"> <templateId root="03.28.840.1.000357.10.20.22.4.2" /> <id nullFlavor="NA" /> <code codeSystem="local" code="ALT" displayName="ALT /SGPT" /> <statusCode code="completed" /> <effectiveTime value ="328528438676" /> <value unit="Units/L" xsi:type="PQ" value="258" /> <interpretationCode codeSystem="local" code="*" /> < referenceRange> <observationRange> <text>< 66</text> </observationRange> </referenceRange> </observation > </component> <component> <observation moodCode="EVN" classCode="OBS"> <templateId root="03.28.840.1.577138.10.20.22.4.2" /> <id nullFlavor="NA" /> <code codeSystem="local" code="CO2" displayName="CARBON DIOXIDE" /> <statusCode code="completed" /> <effectiveTime value="" /> <value unit="mmol/L" xsi:type ="PQ" value="25" /> <referenceRange> <observationRange> <text>21-32</text> </observationRange> </ referenceRange> </observation> </component> <component> <observation moodCode="EVN" classCode="OBS"> <templateId root= "840.1.693201..22.4.2" /> <id nullFlavor="NA" /> < code codeSystem="local" code="TP" displayName="TOTAL PROTEIN" /> < statusCode code="completed" /> <effectiveTime value="" /> <value unit="gm/dL" xsi:type="PQ" value="6.9" /> < referenceRange> <observationRange> <text>6.4-8.2</text> </observationRange> </referenceRange> </observation > </component> <component> <observation moodCode="EVN" classCode="OBS"> <templateId root="03.28.840.1.767073.10..22.4.2" /> <id nullFlavor="NA" /> <code codeSystem="local" code="ALB" displayName="ALBUMIN" /> <statusCode code="completed" /> < effectiveTime value="326253802980" /> <value unit="gm/dL" xsi:type="PQ " value="3.1" /> <interpretationCode codeSystem="local" code="*" /> <referenceRange> <observationRange> <text>3.4-5.0 </text> </observationRange> </referenceRange> </ observation> </component> <component> <observation moodCode= "EVN" classCode="OBS"> <templateId root="2.16.840.1.184220.10..22.4.2 " /> <id nullFlavor="NA" /> <code codeSystem="local" code= "BILTOT" displayName="BILI TOTAL" /> <statusCode code="completed" /> <effectiveTime value="" /> <value unit="mg/dL" xsi: type="PQ" value="0.6" /> <referenceRange> <observationRange > <text>0.0-1.0</text> </observationRange> </ referenceRange> </observation> </component> <component> <observation moodCode="EVN" classCode="OBS"> <templateId root= "2.16.840.1.939956.10..22.4.2" /> <id nullFlavor="NA" /> < code codeSystem="local" code="ALKP" displayName="ALKALINE PHOSPHATASE TOTAL" /> <statusCode code="completed" /> <effectiveTime value= "" /> <value unit="IU/L" xsi:type="PQ" value="269" /> <interpretationCode codeSystem="local" code="*" /> <referenceRange > <observationRange> <text>45-117</text> </ observationRange> </referenceRange> </observation> </ component> </organizer> </entry> <entry> <organizer moodCode="EVN" classCode="BATTERY"> <templateId root="2.16.840.1.947815.10..22.4.1" /> <id nullFlavor="NA" /> <code codeSystem="local" code="PT" displayName= "PROTHROMBIN TIME WITH INR" /> <statusCode code="completed" /> < component> <observation moodCode="EVN" classCode="OBS"> < templateId root="216.840.1.852574.10..22.4.2" /> <id nullFlavor="NA " /> <code codeSystem="local" code="INRX" displayName="INTERNATIONAL NORMAL RATIO" /> <statusCode code="completed" /> < effectiveTime value="" /> <value unit="" xsi:type="PQ" value="1.6" /> <interpretationCode codeSystem="local" code="*" /> <referenceRange> <observationRange> <text>0.9-1.1</ text> </observationRange> </referenceRange> </ observation> </component> <component> <observation moodCode= "EVN" classCode="OBS"> <templateId root="2.16.840.1.618687.10..22.4.2 " /> <id nullFlavor="NA" /> <code codeSystem="local" code= "PTPAT" displayName="PROTHROMBIN TIME" /> <statusCode code="completed" /> <effectiveTime value="" /> <value unit="sec" xsi:type="PQ" value="17.9" /> <interpretationCode codeSystem="local" code="*" /> <referenceRange> <observationRange> <text>10.0-12.8</text> </observationRange> </ referenceRange> </observation> </component> </organizer> </entry > <entry> <organizer moodCode="EVN" classCode="BATTERY"> <templateId root="216.840.1.879309.10..22.4.1" /> <id nullFlavor="NA" /> <code codeSystem="local" code="METABC" displayName="METABOLIC PANEL, COMPREHN" /> <statusCode code="completed" /> <component> <observation moodCode= "EVN" classCode="OBS"> <templateId root="16.840.1.002777.10..22.4.2 " /> <id nullFlavor="NA" /> <code codeSystem="local" code="K" displayName="POTASSIUM" /> <statusCode code="completed" /> < effectiveTime value="892595527137" /> <value unit="mmol/L" xsi:type="PQ " value="4.2" /> <referenceRange> <observationRange> <text>3.5-5.3</text> </observationRange> </ referenceRange> </observation> </component> <component> <observation moodCode="EVN" classCode="OBS"> <templateId root= "16.840.1.886185.10..22.4.2" /> <id nullFlavor="NA" /> < code codeSystem="local" code="eGFR" displayName="EST GFR (MDRD)" /> < statusCode code="completed" /> <effectiveTime value="192612182683" /> <value unit="mL/min" xsi:type="PQ" value="34" /> < interpretationCode codeSystem="local" code="*" /> <referenceRange> <observationRange> <text>> 59</text> </ observationRange> </referenceRange> </observation> </ component> <component> <observation moodCode="EVN" classCode="OBS"> <templateId root="2.16.840.1.492511.10.20.22.4.2" /> <id nullFlavor="NA" /> <code codeSystem="local" code="GAP" displayName= "ANION GAP" /> <statusCode code="completed" /> <effectiveTime value="907522621223" /> <value unit="mmol/L" xsi:type="PQ" value="4" / > <interpretationCode codeSystem="local" code="*" /> < referenceRange> <observationRange> <text>5-15</text> </observationRange> </referenceRange> </observation> </component> <component> <observation moodCode="EVN" classCode= "OBS"> <templateId root="840.1.897954.10..4.2" /> < id nullFlavor="NA" /> <code codeSystem="local" code="eCrCl" displayName ="EST CrCl (CG)" /> <statusCode code="completed" /> < effectiveTime value="" /> <value unit="mL/min" xsi:type="PQ " value="36" /> <interpretationCode codeSystem="local" code="*" /> <referenceRange> <observationRange> <text>> 59< /text> </observationRange> </referenceRange> </ observation> </component> <component> <observation moodCode= "EVN" classCode="OBS"> <templateId root="840.1.343432.10...4.2 " /> <id nullFlavor="NA" /> <code codeSystem="local" code="GLU " displayName="GLUCOSE" /> <statusCode code="completed" /> < effectiveTime value="" /> <value unit="mg/dL" xsi:type="PQ " value="91" /> <referenceRange> <observationRange> <text>70-99</text> </observationRange> </ referenceRange> </observation> </component> <component> <observation moodCode="EVN" classCode="OBS"> <templateId root= "03.28.840.1.750999.10.20.22.4.2" /> <id nullFlavor="NA" /> < code codeSystem="local" code="CA" displayName="CALCIUM" /> <statusCode code="completed" /> <effectiveTime value="253455037624" /> < value unit="mg/dL" xsi:type="PQ" value="8.2" /> <interpretationCode codeSystem="local" code="*" /> <referenceRange> < observationRange> <text>8.5-10.1</text> </ observationRange> </referenceRange> </observation> </ component> <component> <observation moodCode="EVN" classCode="OBS"> <templateId root="03.28.840.1.704347.10...4.2" /> <id nullFlavor="NA" /> <code codeSystem="local" code="BUN" displayName= "BLOOD UREA NITROGEN" /> <statusCode code="completed" /> < effectiveTime value="151002140792" /> <value unit="mg/dL" xsi:type="PQ " value="28" /> <interpretationCode codeSystem="local" code="*" /> <referenceRange> <observationRange> <text>7-20</ text> </observationRange> </referenceRange> </ observation> </component> <component> <observation moodCode= "EVN" classCode="OBS"> <templateId root="03.28.840.1.264759.10.20.22.4.2 " /> <id nullFlavor="NA" /> <code codeSystem="local" code= "CREAT" displayName="CREATININE" /> <statusCode code="completed" /> <effectiveTime value="262717064324" /> <value unit="mg/dL" xsi: type="PQ" value="1.5" /> <interpretationCode codeSystem="local" code="* " /> <referenceRange> <observationRange> <text> 0.6-1.0</text> </observationRange> </referenceRange> </observation> </component> <component> <observation moodCode= "EVN" classCode="OBS"> <templateId root="2.16.840.1.272684.10..22.4.2 " /> <id nullFlavor="NA" /> <code codeSystem="local" code="NA " displayName="SODIUM" /> <statusCode code="completed" /> < effectiveTime value="789322365201" /> <value unit="mmol/L" xsi:type="PQ " value="138" /> <referenceRange> <observationRange> <text>135-148</text> </observationRange> </ referenceRange> </observation> </component> <component> <observation moodCode="EVN" classCode="OBS"> <templateId root= "216.840.1.413756.10..22.4.2" /> <id nullFlavor="NA" /> < code codeSystem="local" code="CL" displayName="CHLORIDE" /> < statusCode code="completed" /> <effectiveTime value="486862934059" /> <value unit="mmol/L" xsi:type="PQ" value="108" /> < referenceRange> <observationRange> <text>98-110</text> </observationRange> </referenceRange> </observation> </component> <component> <observation moodCode="EVN" classCode ="OBS"> <templateId root="2.16.840.1.954444.10..22.4.2" /> < id nullFlavor="NA" /> <code codeSystem="local" code="AST" displayName= "AST/SGOT" /> <statusCode code="completed" /> <effectiveTime value="437030136747" /> <value unit="Units/L" xsi:type="PQ" value="118 " /> <interpretationCode codeSystem="local" code="*" /> < referenceRange> <observationRange> <text>10-37</text> </observationRange> </referenceRange> </observation> </component> <component> <observation moodCode="EVN" classCode= "OBS"> <templateId root="03.28.840.1.586290.10...4.2" /> < id nullFlavor="NA" /> <code codeSystem="local" code="ALT" displayName= "ALT/SGPT" /> <statusCode code="completed" /> <effectiveTime value="101334505962" /> <value unit="Units/L" xsi:type="PQ" value="157 " /> <interpretationCode codeSystem="local" code="*" /> < referenceRange> <observationRange> <text>< 66</text> </observationRange> </referenceRange> </observation > </component> <component> <observation moodCode="EVN" classCode="OBS"> <templateId root="03.28.840.1.315207.10..22.4.2" /> <id nullFlavor="NA" /> <code codeSystem="local" code="CO2" displayName="CARBON DIOXIDE" /> <statusCode code="completed" /> <effectiveTime value="153723859285" /> <value unit="mmol/L" xsi:type ="PQ" value="26" /> <referenceRange> <observationRange> <text>21-32</text> </observationRange> </ referenceRange> </observation> </component> <component> <observation moodCode="EVN" classCode="OBS"> <templateId root= "03.28.840.1.337765.10.20.22.4.2" /> <id nullFlavor="NA" /> < code codeSystem="local" code="TP" displayName="TOTAL PROTEIN" /> < statusCode code="completed" /> <effectiveTime value="433216810713" /> <value unit="gm/dL" xsi:type="PQ" value="5.5" /> < interpretationCode codeSystem="local" code="*" /> <referenceRange> <observationRange> <text>6.4-8.2</text> </ observationRange> </referenceRange> </observation> </ component> <component> <observation moodCode="EVN" classCode="OBS"> <templateId root="840.1.631803.10..22.4.2" /> <id nullFlavor="NA" /> <code codeSystem="local" code="ALB" displayName= "ALBUMIN" /> <statusCode code="completed" /> <effectiveTime value="233250950097" /> <value unit="gm/dL" xsi:type="PQ" value="2.4" / > <interpretationCode codeSystem="local" code="*" /> < referenceRange> <observationRange> <text>3.4-5.0</text> </observationRange> </referenceRange> </observation > </component> <component> <observation moodCode="EVN" classCode="OBS"> <templateId root="03.28.840.1.933391.10.20.22.4.2" /> <id nullFlavor="NA" /> <code codeSystem="local" code="BILTOT" displayName="BILI TOTAL" /> <statusCode code="completed" /> < effectiveTime value="207390888110" /> <value unit="mg/dL" xsi:type="PQ " value="0.4" /> <referenceRange> <observationRange> <text>0.0-1.0</text> </observationRange> </ referenceRange> </observation> </component> <component> <observation moodCode="EVN" classCode="OBS"> <templateId root= "03.28.840.1.736331.10..4.2" /> <id nullFlavor="NA" /> < code codeSystem="local" code="ALKP" displayName="ALKALINE PHOSPHATASE TOTAL" /> <statusCode code="completed" /> <effectiveTime value= "892894038282" /> <value unit="IU/L" xsi:type="PQ" value="182" /> <interpretationCode codeSystem="local" code="*" /> <referenceRange > <observationRange> <text>45-117</text> </ observationRange> </referenceRange> </observation> </ component> </organizer> </entry> <entry> <organizer moodCode="EVN" classCode="BATTERY"> <templateId root="840.1.386068.22.4.1" /> <id nullFlavor="NA" /> <code codeSystem="local" code="TROPI" displayName="TROPONIN I" /> <statusCode code="completed" /> <component > <observation moodCode="EVN" classCode="OBS"> <templateId root= "03.28.840.1.931789.10.2022.4.2" /> <id nullFlavor="NA" /> < code codeSystem="local" code="TROPI" displayName="TROPONIN I" /> < statusCode code="completed" /> <effectiveTime value="675772699192" /> <value unit="ng/mL" xsi:type="PQ" value="< 0.02" /> < referenceRange> <observationRange> <text>< 0.07</text > </observationRange> </referenceRange> </observation > </component> </organizer> </entry> <entry> <organizer moodCode= "EVN" classCode="BATTERY"> <templateId root="16.840.1.226878.10...4.1 " /> <id nullFlavor="NA" /> <code codeSystem="local" code="CBC" displayName="CBC" /> <statusCode code="completed" /> <component> <observation moodCode="EVN" classCode="OBS"> <templateId root= "03.28.840.1.409469.10..4.2" /> <id nullFlavor="NA" /> < code codeSystem="local" code="MCH" displayName="MEAN CELL HGB" /> < statusCode code="completed" /> <effectiveTime value="004525121520" /> <value unit="pg" xsi:type="PQ" value="29.7" /> <referenceRange > <observationRange> <text>27.0-33.0</text> < /observationRange> </referenceRange> </observation> </ component> <component> <observation moodCode="EVN" classCode="OBS"> <templateId root="03.28.840.1.097165.10..4.2" /> <id nullFlavor="NA" /> <code codeSystem="local" code="MCHC" displayName= "MEAN CELL HGB CONCENTRATION" /> <statusCode code="completed" /> <effectiveTime value="977387879114" /> <value unit="g/dL" xsi:type= "PQ" value="31.5" /> <interpretationCode codeSystem="local" code="*" / > <referenceRange> <observationRange> <text> 32.0-37.0</text> </observationRange> </referenceRange> </observation> </component> <component> <observation moodCode="EVN" classCode="OBS"> <templateId root= "03.28.840.1.829601...22.4.2" /> <id nullFlavor="NA" /> < code codeSystem="local" code="MCV" displayName="MEAN CELL VOLUME" /> < statusCode code="completed" /> <effectiveTime value="913717780294" /> <value unit="fl" xsi:type="PQ" value="94.2" /> <referenceRange > <observationRange> <text>80.0-100.0</text> </observationRange> </referenceRange> </observation> </ component> <component> <observation moodCode="EVN" classCode="OBS"> <templateId root="03.28.840.1.387279.10..22.4.2" /> <id nullFlavor="NA" /> <code codeSystem="local" code="MPVT" displayName= "MEAN PLATELET VOLUME" /> <statusCode code="completed" /> < effectiveTime value="207347864566" /> <value unit="fl" xsi:type="PQ" value="11.2" /> <interpretationCode codeSystem="local" code="*" /> <referenceRange> <observationRange> <text>8.5-10.9 </text> </observationRange> </referenceRange> </ observation> </component> <component> <observation moodCode= "EVN" classCode="OBS"> <templateId root="03.28.830.1.778523.10..22.4.2 " /> <id nullFlavor="NA" /> <code codeSystem="local" code="RBC " displayName="RED BLOOD CELL" /> <statusCode code="completed" /> <effectiveTime value="597935452658" /> <value unit="m/cumm" xsi: type="PQ" value="2.76" /> <interpretationCode codeSystem="local" code= "*" /> <referenceRange> <observationRange> < text>4.00-6.00</text> </observationRange> </referenceRange> </observation> </component> <component> <observation moodCode="EVN" classCode="OBS"> <templateId root= "03.28.840.1.882962.10...4.2" /> <id nullFlavor="NA" /> < code codeSystem="local" code="RDW" displayName="RED CELL DISTRIBUTION WIDTH" /> <statusCode code="completed" /> <effectiveTime value= "378801316020" /> <value unit="%" xsi:type="PQ" value="16.9" /> <interpretationCode codeSystem="local" code="*" /> < referenceRange> <observationRange> <text>11.0-15.6</text > </observationRange> </referenceRange> </observation > </component> <component> <observation moodCode="EVN" classCode="OBS"> <templateId root="03.28.840.1.741909.10..22.4.2" /> <id nullFlavor="NA" /> <code codeSystem="local" code="WBC" displayName="WHITE BLOOD CELL" /> <statusCode code="completed" /> <effectiveTime value="626786330225" /> <value unit="k/cumm" xsi: type="PQ" value="5.4" /> <referenceRange> <observationRange > <text>5.0-10.0</text> </observationRange> </ referenceRange> </observation> </component> <component> <observation moodCode="EVN" classCode="OBS"> <templateId root= "03.28.840.1.624339.10.20.22.4.2" /> <id nullFlavor="NA" /> < code codeSystem="local" code="HGBT" displayName="HEMOGLOBIN" /> < statusCode code="completed" /> <effectiveTime value="142921972550" /> <value unit="gm/dL" xsi:type="PQ" value="8.2" /> < interpretationCode codeSystem="local" code="*" /> <referenceRange> <observationRange> <text>12.0-16.0</text> </ observationRange> </referenceRange> </observation> </ component> <component> <observation moodCode="EVN" classCode="OBS"> <templateId root="03.28.840.1.910054.10..4.2" /> <id nullFlavor="NA" /> <code codeSystem="local" code="HCTT" displayName= "HEMATOCRIT" /> <statusCode code="completed" /> < effectiveTime value="163869728502" /> <value unit="%" xsi:type="PQ " value="26.0" /> <interpretationCode codeSystem="local" code="*" /> <referenceRange> <observationRange> <text>37.0- 47.0</text> </observationRange> </referenceRange> </ observation> </component> <component> <observation moodCode= "EVN" classCode="OBS"> <templateId root="03.28.840.1.593785.11.29.214.2 " /> <id nullFlavor="NA" /> <code codeSystem="local" code= "NRBC%" displayName="NRBC %" /> <statusCode code="completed" / > <effectiveTime value="542188461882" /> <value unit="/100WBC " xsi:type="PQ" value="0.0" /> <referenceRange> < observationRange> <text>0.0-0.0</text> </ observationRange> </referenceRange> </observation> </ component> <component> <observation moodCode="EVN" classCode="OBS"> <templateId root="216.840.1.776770.11.29.214.2" /> <id nullFlavor="NA" /> <code codeSystem="local" code="PLTT" displayName= "PLATELET COUNT" /> <statusCode code="completed" /> < effectiveTime value="657735930221" /> <value unit="k/cumm" xsi:type="PQ " value="114" /> <interpretationCode codeSystem="local" code="*" /> <referenceRange> <observationRange> <text>150-400 </text> </observationRange> </referenceRange> </ observation> </component> <component> <observation moodCode= "EVN" classCode="OBS"> <templateId root="216.840.1.975387.11.29.214.2 " /> <id nullFlavor="NA" /> <code codeSystem="local" code= "IPFT" displayName="IMMATURE PLATELET FRACTION" /> <statusCode code= "completed" /> <effectiveTime value="252918880326" /> <value unit="%" xsi:type="PQ" value="3.3" /> <referenceRange> < observationRange> <text>1.1-6.1</text> </ observationRange> </referenceRange> </observation> </ component> </organizer> </entry> <entry> <organizer moodCode="EVN" classCode="BATTERY"> <templateId root="216.840.1.402161.10..22.4.1" /> <id nullFlavor="NA" /> <code codeSystem="local" code="METAB" displayName="METABOLIC PANEL, BASIC" /> <statusCode code="completed" /> <component> <observation moodCode="EVN" classCode="OBS"> < templateId root="216.840.1.153166...4.2" /> <id nullFlavor="NA " /> <code codeSystem="local" code="K" displayName="POTASSIUM" /> <statusCode code="completed" /> <effectiveTime value="736176690458 " /> <value unit="mmol/L" xsi:type="PQ" value="4.1" /> < referenceRange> <observationRange> <text>3.5-5.3</text> </observationRange> </referenceRange> </observation > </component> <component> <observation moodCode="EVN" classCode="OBS"> <templateId root="16.840.1.268452....4.2" /> <id nullFlavor="NA" /> <code codeSystem="local" code="eGFR" displayName="EST GFR (MDRD)" /> <statusCode code="completed" /> <effectiveTime value="642831640500" /> <value unit="mL/min" xsi:type ="PQ" value="49" /> <interpretationCode codeSystem="local" code="*" /> <referenceRange> <observationRange> <text>&gt ; 59</text> </observationRange> </referenceRange> </ observation> </component> <component> <observation moodCode= "EVN" classCode="OBS"> <templateId root="216.840.1.881561.10...4.2 " /> <id nullFlavor="NA" /> <code codeSystem="local" code="GAP " displayName="ANION GAP" /> <statusCode code="completed" /> < effectiveTime value="" /> <value unit="mmol/L" xsi:type="PQ " value="5" /> <referenceRange> <observationRange> <text>5-15</text> </observationRange> </referenceRange > </observation> </component> <component> <observation moodCode="EVN" classCode="OBS"> <templateId root= "216.840.1.654380.11.29.21.4.2" /> <id nullFlavor="NA" /> < code codeSystem="local" code="eCrCl" displayName="EST CrCl (CG)" /> < statusCode code="completed" /> <effectiveTime value="" /> <value unit="mL/min" xsi:type="PQ" value="49" /> < interpretationCode codeSystem="local" code="*" /> <referenceRange> <observationRange> <text>> 59</text> </ observationRange> </referenceRange> </observation> </ component> <component> <observation moodCode="EVN" classCode="OBS"> <templateId root="03.28.840.1.406890.10..4.2" /> <id nullFlavor="NA" /> <code codeSystem="local" code="GLU" displayName= "GLUCOSE" /> <statusCode code="completed" /> <effectiveTime value="" /> <value unit="mg/dL" xsi:type="PQ" value="93" / > <referenceRange> <observationRange> <text>70- 99</text> </observationRange> </referenceRange> </ observation> </component> <component> <observation moodCode= "EVN" classCode="OBS"> <templateId root="03.28.840.1.619515.10.20.22.4.2 " /> <id nullFlavor="NA" /> <code codeSystem="local" code="CA " displayName="CALCIUM" /> <statusCode code="completed" /> < effectiveTime value="177784310803" /> <value unit="mg/dL" xsi:type="PQ " value="8.6" /> <referenceRange> <observationRange> <text>8.5-10.1</text> </observationRange> </ referenceRange> </observation> </component> <component> <observation moodCode="EVN" classCode="OBS"> <templateId root= "840.1.104472.10...4.2" /> <id nullFlavor="NA" /> < code codeSystem="local" code="BUN" displayName="BLOOD UREA NITROGEN" /> <statusCode code="completed" /> <effectiveTime value="613781546681" / > <value unit="mg/dL" xsi:type="PQ" value="26" /> < interpretationCode codeSystem="local" code="*" /> <referenceRange> <observationRange> <text>7-20</text> </ observationRange> </referenceRange> </observation> </ component> <component> <observation moodCode="EVN" classCode="OBS"> <templateId root="03.28.840.1.259227.10.20.22.4.2" /> <id nullFlavor="NA" /> <code codeSystem="local" code="CREAT" displayName= "CREATININE" /> <statusCode code="completed" /> < effectiveTime value="981637321947" /> <value unit="mg/dL" xsi:type="PQ " value="1.1" /> <interpretationCode codeSystem="local" code="*" /> <referenceRange> <observationRange> <text>0.6-1.0 </text> </observationRange> </referenceRange> </ observation> </component> <component> <observation moodCode= "EVN" classCode="OBS"> <templateId root="216.840.1.202834.10.20.22.4.2 " /> <id nullFlavor="NA" /> <code codeSystem="local" code="NA " displayName="SODIUM" /> <statusCode code="completed" /> < effectiveTime value="758382727779" /> <value unit="mmol/L" xsi:type="PQ " value="139" /> <referenceRange> <observationRange> <text>135-148</text> </observationRange> </ referenceRange> </observation> </component> <component> <observation moodCode="EVN" classCode="OBS"> <templateId root= "16.840.1.492079.10.20.22.4.2" /> <id nullFlavor="NA" /> < code codeSystem="local" code="CL" displayName="CHLORIDE" /> < statusCode code="completed" /> <effectiveTime value="487343993357" /> <value unit="mmol/L" xsi:type="PQ" value="110" /> < referenceRange> <observationRange> <text>98-110</text> </observationRange> </referenceRange> </observation> </component> <component> <observation moodCode="EVN" classCode ="OBS"> <templateId root="2.16.840.1.754971.10.4.2" /> < id nullFlavor="NA" /> <code codeSystem="local" code="CO2" displayName= "CARBON DIOXIDE" /> <statusCode code="completed" /> < effectiveTime value="422824224300" /> <value unit="mmol/L" xsi:type="PQ " value="24" /> <referenceRange> <observationRange> <text>21-32</text> </observationRange> </ referenceRange> </observation> </component> </organizer> </entry > <entry> <organizer moodCode="EVN" classCode="BATTERY"> <templateId root="03.28.840.1.268884.11.29.21.4.1" /> <id nullFlavor="NA" /> <code codeSystem="local" code="PT" displayName="PROTHROMBIN TIME WITH INR" /> < statusCode code="completed" /> <component> <observation moodCode= "EVN" classCode="OBS"> <templateId root="16.840.1.009471.11.29.21.4.2 " /> <id nullFlavor="NA" /> <code codeSystem="local" code= "INRX" displayName="INTERNATIONAL NORMAL RATIO" /> <statusCode code= "completed" /> <effectiveTime value="529155212606" /> <value unit="" xsi:type="PQ" value="1.4" /> <interpretationCode codeSystem= "local" code="*" /> <referenceRange> <observationRange> <text>0.9-1.1</text> </observationRange> </ referenceRange> </observation> </component> <component> <observation moodCode="EVN" classCode="OBS"> <templateId root= "16.840.1.671721.11.29.21.4.2" /> <id nullFlavor="NA" /> < code codeSystem="local" code="PTPAT" displayName="PROTHROMBIN TIME" /> <statusCode code="completed" /> <effectiveTime value="189940395908" /> <value unit="sec" xsi:type="PQ" value="16.2" /> < interpretationCode codeSystem="local" code="*" /> <referenceRange> <observationRange> <text>10.0-12.8</text> </ observationRange> </referenceRange> </observation> </ component> </organizer> </entry> <entry> <organizer moodCode="EVN" classCode="BATTERY"> <templateId root="16.840.1.181619.11.29.21.4.1" /> <id nullFlavor="NA" /> <code codeSystem="local" code="CBC" displayName ="CBC" /> <statusCode code="completed" /> <component> < observation moodCode="EVN" classCode="OBS"> <templateId root= "16.840.1.783127.11.29.21.4.2" /> <id nullFlavor="NA" /> < code codeSystem="local" code="MCH" displayName="MEAN CELL HGB" /> < statusCode code="completed" /> <effectiveTime value="730045347326" /> <value unit="pg" xsi:type="PQ" value="30.1" /> <referenceRange > <observationRange> <text>27.0-33.0</text> < /observationRange> </referenceRange> </observation> </ component> <component> <observation moodCode="EVN" classCode="OBS"> <templateId root="216.840.1.816598.11.29.21.4.2" /> <id nullFlavor="NA" /> <code codeSystem="local" code="MCHC" displayName= "MEAN CELL HGB CONCENTRATION" /> <statusCode code="completed" /> <effectiveTime value="" /> <value unit="g/dL" xsi:type= "PQ" value="31.3" /> <interpretationCode codeSystem="local" code="*" / > <referenceRange> <observationRange> <text> 32.0-37.0</text> </observationRange> </referenceRange> </observation> </component> <component> <observation moodCode="EVN" classCode="OBS"> <templateId root= "2.16.840.1.170631.10..4.2" /> <id nullFlavor="NA" /> < code codeSystem="local" code="MCV" displayName="MEAN CELL VOLUME" /> < statusCode code="completed" /> <effectiveTime value="" /> <value unit="fl" xsi:type="PQ" value="96.1" /> <referenceRange > <observationRange> <text>80.0-100.0</text> </observationRange> </referenceRange> </observation> </ component> <component> <observation moodCode="EVN" classCode="OBS"> <templateId root="216.840.1.204734..22.4.2" /> <id nullFlavor="NA" /> <code codeSystem="local" code="MPVT" displayName= "MEAN PLATELET VOLUME" /> <statusCode code="completed" /> < effectiveTime value="" /> <value unit="fl" xsi:type="PQ" value="11.0" /> <interpretationCode codeSystem="local" code="*" /> <referenceRange> <observationRange> <text>8.5-10.9 </text> </observationRange> </referenceRange> </ observation> </component> <component> <observation moodCode= "EVN" classCode="OBS"> <templateId root="16.840.1.688686.10.22.4.2 " /> <id nullFlavor="NA" /> <code codeSystem="local" code="RBC " displayName="RED BLOOD CELL" /> <statusCode code="completed" /> <effectiveTime value="" /> <value unit="m/cumm" xsi: type="PQ" value="2.56" /> <interpretationCode codeSystem="local" code= "*" /> <referenceRange> <observationRange> < text>4.00-6.00</text> </observationRange> </referenceRange> </observation> </component> <component> <observation moodCode="EVN" classCode="OBS"> <templateId root= "03.28.840.1.823190.10..4.2" /> <id nullFlavor="NA" /> < code codeSystem="local" code="RDW" displayName="RED CELL DISTRIBUTION WIDTH" /> <statusCode code="completed" /> <effectiveTime value= "" /> <value unit="%" xsi:type="PQ" value="16.7" /> <interpretationCode codeSystem="local" code="*" /> < referenceRange> <observationRange> <text>11.0-15.6</text > </observationRange> </referenceRange> </observation > </component> <component> <observation moodCode="EVN" classCode="OBS"> <templateId root="16.840.1.000708.10.2022.4.2" /> <id nullFlavor="NA" /> <code codeSystem="local" code="WBC" displayName="WHITE BLOOD CELL" /> <statusCode code="completed" /> <effectiveTime value="" /> <value unit="k/cumm" xsi: type="PQ" value="4.2" /> <interpretationCode codeSystem="local" code="* " /> <referenceRange> <observationRange> <text> 5.0-10.0</text> </observationRange> </referenceRange> </observation> </component> <component> <observation moodCode ="EVN" classCode="OBS"> <templateId root= "2.16.840.1.015027.10.20.22.4.2" /> <id nullFlavor="NA" /> < code codeSystem="local" code="HGBT" displayName="HEMOGLOBIN" /> < statusCode code="completed" /> <effectiveTime value="" /> <value unit="gm/dL" xsi:type="PQ" value="7.7" /> < interpretationCode codeSystem="local" code="*" /> <referenceRange> <observationRange> <text>12.0-16.0</text> </ observationRange> </referenceRange> </observation> </ component> <component> <observation moodCode="EVN" classCode="OBS"> <templateId root="216.840.1.773119.10.20.22.4.2" /> <id nullFlavor="NA" /> <code codeSystem="local" code="HCTT" displayName= "HEMATOCRIT" /> <statusCode code="completed" /> < effectiveTime value="" /> <value unit="%" xsi:type="PQ " value="24.6" /> <interpretationCode codeSystem="local" code="*" /> <referenceRange> <observationRange> <text>37.0- 47.0</text> </observationRange> </referenceRange> </ observation> </component> <component> <observation moodCode= "EVN" classCode="OBS"> <templateId root="03.28.840.1.797052.10..4.2 " /> <id nullFlavor="NA" /> <code codeSystem="local" code= "NRBC%" displayName="NRBC %" /> <statusCode code="completed" / > <effectiveTime value="" /> <value unit="/100WBC " xsi:type="PQ" value="0.0" /> <referenceRange> < observationRange> <text>0.0-0.0</text> </ observationRange> </referenceRange> </observation> </ component> <component> <observation moodCode="EVN" classCode="OBS"> <templateId root="03.28.840.1.730669.11.29.21.4.2" /> <id nullFlavor="NA" /> <code codeSystem="local" code="PLTT" displayName= "PLATELET COUNT" /> <statusCode code="completed" /> < effectiveTime value="[id number]" /> <value unit="k/cumm" xsi:type="PQ " value="122" /> <interpretationCode codeSystem="local" code="*" /> <referenceRange> <observationRange> <text>150-400 </text> </observationRange> </referenceRange> </ observation> </component> <component> <observation moodCode= "EVN" classCode="OBS"> <templateId root="03.28.840.1.068730.11.29.21.4.2 " /> <id nullFlavor="NA" /> <code codeSystem="local" code= "IPFT" displayName="IMMATURE PLATELET FRACTION" /> <statusCode code= "completed" /> <effectiveTime value="" /> <value unit="%" xsi:type="PQ" value="3.4" /> <referenceRange> < observationRange> <text>1.1-6.1</text> </ observationRange> </referenceRange> </observation> </ component> </organizer> </entry> <entry> <organizer moodCode="EVN" classCode="BATTERY"> <templateId root="03.28.840.1.620213.10..22.4.1" /> <id nullFlavor="NA" /> <code codeSystem="local" code="METAB" displayName="METABOLIC PANEL, BASIC" /> <statusCode code="completed" /> <component> <observation moodCode="EVN" classCode="OBS"> < templateId root="03.28.840.1.349398.11.29.21.4.2" /> <id nullFlavor="NA " /> <code codeSystem="local" code="K" displayName="POTASSIUM" /> <statusCode code="completed" /> <effectiveTime value=" " /> <value unit="mmol/L" xsi:type="PQ" value="3.9" /> < referenceRange> <observationRange> <text>3.5-5.3</text> </observationRange> </referenceRange> </observation > </component> <component> <observation moodCode="EVN" classCode="OBS"> <templateId root="03.28.840.1.801299.10..4.2" /> <id nullFlavor="NA" /> <code codeSystem="local" code="eGFR" displayName="EST GFR (MDRD)" /> <statusCode code="completed" /> <effectiveTime value="" /> <value unit="mL/min" xsi:type ="PQ" value="> 60" /> <referenceRange> <observationRange > <text>> 59</text> </observationRange> </ referenceRange> </observation> </component> <component> <observation moodCode="EVN" classCode="OBS"> <templateId root= "216.840.1.279990.10.20.22.4.2" /> <id nullFlavor="NA" /> < code codeSystem="local" code="GAP" displayName="ANION GAP" /> < statusCode code="completed" /> <effectiveTime value="" /> <value unit="mmol/L" xsi:type="PQ" value="9" /> < referenceRange> <observationRange> <text>5-15</text> </observationRange> </referenceRange> </observation> </component> <component> <observation moodCode="EVN" classCode= "OBS"> <templateId root="03.28.840.1.186394.10...4.2" /> < id nullFlavor="NA" /> <code codeSystem="local" code="eCrCl" displayName ="EST CrCl (CG)" /> <statusCode code="completed" /> < effectiveTime value="" /> <value unit="mL/min" xsi:type="PQ " value="> 60" /> <referenceRange> <observationRange> <text>> 59</text> </observationRange> </ referenceRange> </observation> </component> <component> <observation moodCode="EVN" classCode="OBS"> <templateId root= "03.28.840.1.423139.10.20.22.4.2" /> <id nullFlavor="NA" /> < code codeSystem="local" code="GLU" displayName="GLUCOSE" /> < statusCode code="completed" /> <effectiveTime value="" /> <value unit="mg/dL" xsi:type="PQ" value="84" /> < referenceRange> <observationRange> <text>70-99</text> </observationRange> </referenceRange> </observation> </component> <component> <observation moodCode="EVN" classCode= "OBS"> <templateId root="216.840.1.883781.10..22.4.2" /> < id nullFlavor="NA" /> <code codeSystem="local" code="CA" displayName= "CALCIUM" /> <statusCode code="completed" /> <effectiveTime value="" /> <value unit="mg/dL" xsi:type="PQ" value="7.7" / > <interpretationCode codeSystem="local" code="*" /> < referenceRange> <observationRange> <text>8.5-10.1</text > </observationRange> </referenceRange> </observation > </component> <component> <observation moodCode="EVN" classCode="OBS"> <templateId root="216.840.1.024805.10...4.2" /> <id nullFlavor="NA" /> <code codeSystem="local" code="BUN" displayName="BLOOD UREA NITROGEN" /> <statusCode code="completed" /> <effectiveTime value="" /> <value unit="mg/dL" xsi: type="PQ" value="22" /> <interpretationCode codeSystem="local" code="* " /> <referenceRange> <observationRange> <text> 7-20</text> </observationRange> </referenceRange> </ observation> </component> <component> <observation moodCode= "EVN" classCode="OBS"> <templateId root="16.840.1.321242.10..22.4.2 " /> <id nullFlavor="NA" /> <code codeSystem="local" code= "CREAT" displayName="CREATININE" /> <statusCode code="completed" /> <effectiveTime value="" /> <value unit="mg/dL" xsi: type="PQ" value="0.7" /> <referenceRange> <observationRange > <text>0.6-1.0</text> </observationRange> </ referenceRange> </observation> </component> <component> <observation moodCode="EVN" classCode="OBS"> <templateId root= "03.28.840.1.397428...4.2" /> <id nullFlavor="NA" /> < code codeSystem="local" code="NA" displayName="SODIUM" /> <statusCode code="completed" /> <effectiveTime value="" /> < value unit="mmol/L" xsi:type="PQ" value="147" /> <referenceRange> <observationRange> <text>135-148</text> </ observationRange> </referenceRange> </observation> </ component> <component> <observation moodCode="EVN" classCode="OBS"> <templateId root="03.28.840.1.631702.10...4.2" /> <id nullFlavor="NA" /> <code codeSystem="local" code="CL" displayName= "CHLORIDE" /> <statusCode code="completed" /> <effectiveTime value="846501748515" /> <value unit="mmol/L" xsi:type="PQ" value="112" /> <interpretationCode codeSystem="local" code="*" /> < referenceRange> <observationRange> <text>98-110</text> </observationRange> </referenceRange> </observation> </component> <component> <observation moodCode="EVN" classCode ="OBS"> <templateId root="216.840.1.179068.10..22.4.2" /> < id nullFlavor="NA" /> <code codeSystem="local" code="CO2" displayName= "CARBON DIOXIDE" /> <statusCode code="completed" /> < effectiveTime value="127666333731" /> <value unit="mmol/L" xsi:type="PQ " value="26" /> <referenceRange> <observationRange> <text>21-32</text> </observationRange> </ referenceRange> </observation> </component> </organizer> </entry > <entry> <organizer moodCode="EVN" classCode="BATTERY"> <templateId root="216.840.1.517388.10..22.4.1" /> <id nullFlavor="NA" /> <code codeSystem="local" code="PT" displayName="PROTHROMBIN TIME WITH INR" /> < statusCode code="completed" /> <component> <observation moodCode= "EVN" classCode="OBS"> <templateId root="216.840.1.100513.10..22.4.2 " /> <id nullFlavor="NA" /> <code codeSystem="local" code= "INRX" displayName="INTERNATIONAL NORMAL RATIO" /> <statusCode code= "completed" /> <effectiveTime value="735172291283" /> <value unit="" xsi:type="PQ" value="1.6" /> <interpretationCode codeSystem= "local" code="*" /> <referenceRange> <observationRange> <text>0.9-1.1</text> </observationRange> </ referenceRange> </observation> </component> <component> <observation moodCode="EVN" classCode="OBS"> <templateId root= "216.840.1.763808.10..22.4.2" /> <id nullFlavor="NA" /> < code codeSystem="local" code="PTPAT" displayName="PROTHROMBIN TIME" /> <statusCode code="completed" /> <effectiveTime value="028368921585" /> <value unit="sec" xsi:type="PQ" value="18.8" /> < interpretationCode codeSystem="local" code="*" /> <referenceRange> <observationRange> <text>10.0-12.8</text> </ observationRange> </referenceRange> </observation> </ component> </organizer> </entry> <entry> <organizer moodCode="EVN" classCode="BATTERY"> <templateId root="216.840.1.061433.10..22.4.1" /> <id nullFlavor="NA" /> <code codeSystem="local" code="CBC" displayName ="CBC" /> <statusCode code="completed" /> <component> < observation moodCode="EVN" classCode="OBS"> <templateId root= "216.840.1.063065.10..22.4.2" /> <id nullFlavor="NA" /> < code codeSystem="local" code="MCH" displayName="MEAN CELL HGB" /> < statusCode code="completed" /> <effectiveTime value="387934122716" /> <value unit="pg" xsi:type="PQ" value="29.3" /> <referenceRange > <observationRange> <text>27.0-33.0</text> < /observationRange> </referenceRange> </observation> </ component> <component> <observation moodCode="EVN" classCode="OBS"> <templateId root="216.840.1.642025.10.20.22.4.2" /> <id nullFlavor="NA" /> <code codeSystem="local" code="MCHC" displayName= "MEAN CELL HGB CONCENTRATION" /> <statusCode code="completed" /> <effectiveTime value="" /> <value unit="g/dL" xsi:type= "PQ" value="31.0" /> <interpretationCode codeSystem="local" code="*" / > <referenceRange> <observationRange> <text> 32.0-37.0</text> </observationRange> </referenceRange> </observation> </component> <component> <observation moodCode="EVN" classCode="OBS"> <templateId root= "03.28.840.1.960198.22.4.2" /> <id nullFlavor="NA" /> < code codeSystem="local" code="MCV" displayName="MEAN CELL VOLUME" /> < statusCode code="completed" /> <effectiveTime value="326806744771" /> <value unit="fl" xsi:type="PQ" value="94.5" /> <referenceRange > <observationRange> <text>80.0-100.0</text> </observationRange> </referenceRange> </observation> </ component> <component> <observation moodCode="EVN" classCode="OBS"> <templateId root="16.840.1.158635.10.20.22.4.2" /> <id nullFlavor="NA" /> <code codeSystem="local" code="MPVT" displayName= "MEAN PLATELET VOLUME" /> <statusCode code="completed" /> < effectiveTime value="419242855111" /> <value unit="fl" xsi:type="PQ" value="10.7" /> <referenceRange> <observationRange> <text>8.5-10.9</text> </observationRange> </ referenceRange> </observation> </component> <component> <observation moodCode="EVN" classCode="OBS"> <templateId root= "216.840.1.270645...22.4.2" /> <id nullFlavor="NA" /> < code codeSystem="local" code="RBC" displayName="RED BLOOD CELL" /> < statusCode code="completed" /> <effectiveTime value="649290005082" /> <value unit="m/cumm" xsi:type="PQ" value="2.73" /> < interpretationCode codeSystem="local" code="*" /> <referenceRange> <observationRange> <text>4.00-6.00</text> </ observationRange> </referenceRange> </observation> </ component> <component> <observation moodCode="EVN" classCode="OBS"> <templateId root="16.840.1.509091.11.29.21.4.2" /> <id nullFlavor="NA" /> <code codeSystem="local" code="RDW" displayName=" RED CELL DISTRIBUTION WIDTH" /> <statusCode code="completed" /> <effectiveTime value="467996329617" /> <value unit="%" xsi:type= "PQ" value="16.5" /> <interpretationCode codeSystem="local" code="*" / > <referenceRange> <observationRange> <text> 11.0-15.6</text> </observationRange> </referenceRange> </observation> </component> <component> <observation moodCode="EVN" classCode="OBS"> <templateId root= "216.840.1.772721..4.2" /> <id nullFlavor="NA" /> < code codeSystem="local" code="WBC" displayName="WHITE BLOOD CELL" /> < statusCode code="completed" /> <effectiveTime value="404696788222" /> <value unit="k/cumm" xsi:type="PQ" value="4.4" /> < interpretationCode codeSystem="local" code="*" /> <referenceRange> <observationRange> <text>5.0-10.0</text> </ observationRange> </referenceRange> </observation> </ component> <component> <observation moodCode="EVN" classCode="OBS"> <templateId root="216.840.1.545446.104.2" /> <id nullFlavor="NA" /> <code codeSystem="local" code="HGBT" displayName= "HEMOGLOBIN" /> <statusCode code="completed" /> < effectiveTime value="649237082287" /> <value unit="gm/dL" xsi:type="PQ " value="8.0" /> <interpretationCode codeSystem="local" code="*" /> <referenceRange> <observationRange> <text>12.0- 16.0</text> </observationRange> </referenceRange> </ observation> </component> <component> <observation moodCode= "EVN" classCode="OBS"> <templateId root="16.840.1.091590.10.4.2 " /> <id nullFlavor="NA" /> <code codeSystem="local" code= "HCTT" displayName="HEMATOCRIT" /> <statusCode code="completed" /> <effectiveTime value="299629111770" /> <value unit="%" xsi: type="PQ" value="25.8" /> <interpretationCode codeSystem="local" code= "*" /> <referenceRange> <observationRange> < text>37.0-47.0</text> </observationRange> </referenceRange> </observation> </component> <component> <observation moodCode="EVN" classCode="OBS"> <templateId root= "216.840.1.957685.10.20.22.4.2" /> <id nullFlavor="NA" /> < code codeSystem="local" code="NRBC%" displayName="NRBC %" /> < statusCode code="completed" /> <effectiveTime value="456159429671" /> <value unit="/100WBC" xsi:type="PQ" value="0.0" /> < referenceRange> <observationRange> <text>0.0-0.0</text> </observationRange> </referenceRange> </observation > </component> <component> <observation moodCode="EVN" classCode="OBS"> <templateId root="03.28.840.1.703245.10...4.2" /> <id nullFlavor="NA" /> <code codeSystem="local" code="PLTT" displayName="PLATELET COUNT" /> <statusCode code="completed" /> <effectiveTime value="075057572415" /> <value unit="k/cumm" xsi:type ="PQ" value="137" /> <interpretationCode codeSystem="local" code="*" / > <referenceRange> <observationRange> <text>150 -400</text> </observationRange> </referenceRange> </ observation> </component> <component> <observation moodCode= "EVN" classCode="OBS"> <templateId root="03.28.840.1.624996.10.20.22.4.2 " /> <id nullFlavor="NA" /> <code codeSystem="local" code= "IPFT" displayName="IMMATURE PLATELET FRACTION" /> <statusCode code= "completed" /> <effectiveTime value="515517643673" /> <value unit="%" xsi:type="PQ" value="2.8" /> <referenceRange> < observationRange> <text>1.1-6.1</text> </ observationRange> </referenceRange> </observation> </ component> </organizer> </entry> <entry> <organizer moodCode="EVN" classCode="BATTERY"> <templateId root="16.840.1.210773.10.20.22.4.1" /> <id nullFlavor="NA" /> <code codeSystem="local" code="PT" displayName= "PROTHROMBIN TIME WITH INR" /> <statusCode code="completed" /> < component> <observation moodCode="EVN" classCode="OBS"> < templateId root="16.840.1.625776.10.20.22.4.2" /> <id nullFlavor="NA " /> <code codeSystem="local" code="INRX" displayName="INTERNATIONAL NORMAL RATIO" /> <statusCode code="completed" /> < effectiveTime value="120659800289" /> <value unit="" xsi:type="PQ" value="1.9" /> <interpretationCode codeSystem="local" code="*" /> <referenceRange> <observationRange> <text>0.9-1.1</ text> </observationRange> </referenceRange> </ observation> </component> <component> <observation moodCode= "EVN" classCode="OBS"> <templateId root="03.28.840.1.231571.10.20.22.4.2 " /> <id nullFlavor="NA" /> <code codeSystem="local" code= "PTPAT" displayName="PROTHROMBIN TIME" /> <statusCode code="completed" /> <effectiveTime value="131784275927" /> <value unit="sec" xsi:type="PQ" value="21.6" /> <interpretationCode codeSystem="local" code="*" /> <referenceRange> <observationRange> <text>10.0-12.8</text> </observationRange> </ referenceRange> </observation> </component> </organizer> </entry > <entry> <organizer moodCode="EVN" classCode="BATTERY"> <templateId root="2.16.840.1.200219.10..22.4.1" /> <id nullFlavor="NA" /> <code codeSystem="local" code="ABG" displayName="ARTERIAL BLOOD GAS" /> < statusCode code="completed" /> <component> <observation moodCode= "EVN" classCode="OBS"> <templateId root="2.16.840.1.234907.10..22.4.2 " /> <id nullFlavor="NA" /> <code codeSystem="local" code="COLE " displayName="ABG BASE EXCESS" /> <statusCode code="completed" /> <effectiveTime value="904790178032" /> <value unit="meq/L" xsi: type="PQ" value="2.3" /> <referenceRange> <observationRange > <text>-3.0-3.0</text> </observationRange> </ referenceRange> </observation> </component> <component> <observation moodCode="EVN" classCode="OBS"> <templateId root= "2.16.840.1.757451.10..22.4.2" /> <id nullFlavor="NA" /> < code codeSystem="local" code="HCO3A" displayName="ABG BICARBONATE" /> < statusCode code="completed" /> <effectiveTime value="849602246665" /> <value unit="meq/L" xsi:type="PQ" value="24.9" /> < referenceRange> <observationRange> <text>23.0-28.0</text > </observationRange> </referenceRange> </observation > </component> <component> <observation moodCode="EVN" classCode="OBS"> <templateId root="216.840.1.319964.10.20.22.4.2" /> <id nullFlavor="NA" /> <code codeSystem="local" code="PCO2A" displayName="ABG PCO2" /> <statusCode code="completed" /> < effectiveTime value="892070129676" /> <value unit="mmHg" xsi:type="PQ" value="31" /> <interpretationCode codeSystem="local" code="*" /> <referenceRange> <observationRange> <text>34-45</ text> </observationRange> </referenceRange> </ observation> </component> <component> <observation moodCode= "EVN" classCode="OBS"> <templateId root="216.840.1.997470.10.20.22.4.2 " /> <id nullFlavor="NA" /> <code codeSystem="local" code= "PHAX" displayName="ABG PH" /> <statusCode code="completed" /> <effectiveTime value="866901506392" /> <value unit="" xsi:type="PQ" value="7.52" /> <interpretationCode codeSystem="local" code="*" /> <referenceRange> <observationRange> <text>7.35- 7.45</text> </observationRange> </referenceRange> </ observation> </component> <component> <observation moodCode= "EVN" classCode="OBS"> <templateId root="03.28.840.1.451486.10..4.2 " /> <id nullFlavor="NA" /> <code codeSystem="local" code= "PO2A" displayName="ABG PO2" /> <statusCode code="completed" /> <effectiveTime value="195842144605" /> <value unit="mmHg" xsi:type= "PQ" value="68" /> <interpretationCode codeSystem="local" code="*" /> <referenceRange> <observationRange> <text>75- 100</text> </observationRange> </referenceRange> </ observation> </component> <component> <observation moodCode= "EVN" classCode="OBS"> <templateId root="840.1.851080.11.29.21.4.2 " /> <id nullFlavor="NA" /> <code codeSystem="local" code= "SATA" displayName="ABG O2 SATURATION" /> <statusCode code="completed" /> <effectiveTime value="788742466295" /> <value unit="%" xsi:type="PQ" value="94" /> <referenceRange> < observationRange> <text>93-100</text> </observationRange > </referenceRange> </observation> </component> </ organizer> </entry> <entry> <organizer moodCode="EVN" classCode="BATTERY"> <templateId root="03.28.840.1.620088.11.29.21.4.1" /> <id nullFlavor= "NA" /> <code codeSystem="local" code="TROPI" displayName="TROPONIN I" /> <statusCode code="completed" /> <component> <observation moodCode="EVN" classCode="OBS"> <templateId root= "03.28.840.1.289675.11.29.21.4.2" /> <id nullFlavor="NA" /> < code codeSystem="local" code="TROPI" displayName="TROPONIN I" /> < statusCode code="completed" /> <effectiveTime value="685315210272" /> <value unit="ng/mL" xsi:type="PQ" value="< 0.02" /> < referenceRange> <observationRange> <text>< 0.07</text > </observationRange> </referenceRange> </observation > </component> </organizer> </entry> <entry> <organizer moodCode= "EVN" classCode="BATTERY"> <templateId root="2.16.840.1.139621.10..22.4.1 " /> <id nullFlavor="NA" /> <code codeSystem="local" code="TROPI" displayName="TROPONIN I" /> <statusCode code="completed" /> <component > <observation moodCode="EVN" classCode="OBS"> <templateId root= "2.16.840.1.697435.10..22.4.2" /> <id nullFlavor="NA" /> < code codeSystem="local" code="TROPI" displayName="TROPONIN I" /> < statusCode code="completed" /> <effectiveTime value="121625364078" /> <value unit="ng/mL" xsi:type="PQ" value="< 0.02" /> < referenceRange> <observationRange> <text>< 0.07</text > </observationRange> </referenceRange> </observation > </component> </organizer> </entry> <entry> <organizer moodCode= "EVN" classCode="BATTERY"> <templateId root="2.16.840.1.162873.10..22.4.1 " /> <id nullFlavor="NA" /> <code codeSystem="local" code="ABG" displayName="ARTERIAL BLOOD GAS" /> <statusCode code="completed" /> < component> <observation moodCode="EVN" classCode="OBS"> < templateId root="16.840.1.380956.10..22.4.2" /> <id nullFlavor="NA " /> <code codeSystem="local" code="COLE" displayName="ABG BASE EXCESS" /> <statusCode code="completed" /> <effectiveTime value= "644720621993" /> <value unit="meq/L" xsi:type="PQ" value="2.1" /> <referenceRange> <observationRange> <text>-3.0-3.0 </text> </observationRange> </referenceRange> </ observation> </component> <component> <observation moodCode= "EVN" classCode="OBS"> <templateId root="03.28.840.1.917967.10..4.2 " /> <id nullFlavor="NA" /> <code codeSystem="local" code= "HCO3A" displayName="ABG BICARBONATE" /> <statusCode code="completed" / > <effectiveTime value="266501991486" /> <value unit="meq/L" xsi:type="PQ" value="26.7" /> <referenceRange> < observationRange> <text>23.0-28.0</text> </ observationRange> </referenceRange> </observation> </ component> <component> <observation moodCode="EVN" classCode="OBS"> <templateId root="03.28.840.1.851181.10..22.4.2" /> <id nullFlavor="NA" /> <code codeSystem="local" code="L/MA" displayName= "ABG L/M" /> <statusCode code="completed" /> <effectiveTime value="" /> <value unit="" xsi:type="PQ" value="2.0" /> <referenceRange> <observationRange> <text /> </observationRange> </referenceRange> </observation> </component> <component> <observation moodCode="EVN" classCode= "OBS"> <templateId root="03.28.840.1.232360.1022.4.2" /> < id nullFlavor="NA" /> <code codeSystem="local" code="PCO2A" displayName ="ABG PCO2" /> <statusCode code="completed" /> <effectiveTime value="" /> <value unit="mmHg" xsi:type="PQ" value="41" /> <referenceRange> <observationRange> <text>34- 45</text> </observationRange> </referenceRange> </ observation> </component> <component> <observation moodCode= "EVN" classCode="OBS"> <templateId root="03.28.840.1.299057.11.29.21.4.2 " /> <id nullFlavor="NA" /> <code codeSystem="local" code= "PHAX" displayName="ABG PH" /> <statusCode code="completed" /> <effectiveTime value="" /> <value unit="" xsi:type="PQ" value="7.43" /> <referenceRange> <observationRange> <text>7.35-7.45</text> </observationRange> </ referenceRange> </observation> </component> <component> <observation moodCode="EVN" classCode="OBS"> <templateId root= "03.28.840.1.000673.102022.4.2" /> <id nullFlavor="NA" /> < code codeSystem="local" code="PO2A" displayName="ABG PO2" /> < statusCode code="completed" /> <effectiveTime value="" /> <value unit="mmHg" xsi:type="PQ" value="69" /> < interpretationCode codeSystem="local" code="*" /> <referenceRange> <observationRange> <text>75-100</text> </ observationRange> </referenceRange> </observation> </ component> <component> <observation moodCode="EVN" classCode="OBS"> <templateId root="840.1.280371.11.29.21.4.2" /> <id nullFlavor="NA" /> <code codeSystem="local" code="SATA" displayName= "ABG O2 SATURATION" /> <statusCode code="completed" /> < effectiveTime value="" /> <value unit="%" xsi:type="PQ " value="93" /> <referenceRange> <observationRange> <text>93-100</text> </observationRange> </ referenceRange> </observation> </component> </organizer> </entry > <entry> <organizer moodCode="EVN" classCode="BATTERY"> <templateId root="840.1.756867.11.29.21.4.1" /> <id nullFlavor="NA" /> <code codeSystem="local" code="CBC" displayName="CBC" /> <statusCode code= "completed" /> <component> <observation moodCode="EVN" classCode= "OBS"> <templateId root="840.1.829516.11.29.21.4.2" /> < id nullFlavor="NA" /> <code codeSystem="local" code="MCH" displayName= "MEAN CELL HGB" /> <statusCode code="completed" /> < effectiveTime value="[id number]" /> <value unit="pg" xsi:type="PQ" value="29.5" /> <referenceRange> <observationRange> <text>27.0-33.0</text> </observationRange> </ referenceRange> </observation> </component> <component> <observation moodCode="EVN" classCode="OBS"> <templateId root= "840.1.504621.10.4.2" /> <id nullFlavor="NA" /> < code codeSystem="local" code="MCHC" displayName="MEAN CELL HGB CONCENTRATION" / > <statusCode code="completed" /> <effectiveTime value= "" /> <value unit="g/dL" xsi:type="PQ" value="31.3" /> <interpretationCode codeSystem="local" code="*" /> < referenceRange> <observationRange> <text>32.0-37.0</text > </observationRange> </referenceRange> </observation > </component> <component> <observation moodCode="EVN" classCode="OBS"> <templateId root="840.1.946749.10.22.4.2" /> <id nullFlavor="NA" /> <code codeSystem="local" code="MCV" displayName="MEAN CELL VOLUME" /> <statusCode code="completed" /> <effectiveTime value="" /> <value unit="fl" xsi:type= "PQ" value="94.4" /> <referenceRange> <observationRange> <text>80.0-100.0</text> </observationRange> </ referenceRange> </observation> </component> <component> <observation moodCode="EVN" classCode="OBS"> <templateId root= "840.1.083280.10.20.22.4.2" /> <id nullFlavor="NA" /> < code codeSystem="local" code="MPVT" displayName="MEAN PLATELET VOLUME" /> <statusCode code="completed" /> <effectiveTime value="[id number] " /> <value unit="fl" xsi:type="PQ" value="10.5" /> < referenceRange> <observationRange> <text>8.5-10.9</text > </observationRange> </referenceRange> </observation > </component> <component> <observation moodCode="EVN" classCode="OBS"> <templateId root="840.1.097383.1022.4.2" /> <id nullFlavor="NA" /> <code codeSystem="local" code="RBC" displayName="RED BLOOD CELL" /> <statusCode code="completed" /> <effectiveTime value="187379444176" /> <value unit="m/cumm" xsi:type ="PQ" value="2.88" /> <interpretationCode codeSystem="local" code="*" / > <referenceRange> <observationRange> <text> 4.00-6.00</text> </observationRange> </referenceRange> </observation> </component> <component> <observation moodCode="EVN" classCode="OBS"> <templateId root= "840.1.756823.10.2022.4.2" /> <id nullFlavor="NA" /> < code codeSystem="local" code="RDW" displayName="RED CELL DISTRIBUTION WIDTH" /> <statusCode code="completed" /> <effectiveTime value= "115901363577" /> <value unit="%" xsi:type="PQ" value="16.3" /> <interpretationCode codeSystem="local" code="*" /> < referenceRange> <observationRange> <text>11.0-15.6</text > </observationRange> </referenceRange> </observation > </component> <component> <observation moodCode="EVN" classCode="OBS"> <templateId root="03.28.840.1.226083.10...4.2" /> <id nullFlavor="NA" /> <code codeSystem="local" code="WBC" displayName="WHITE BLOOD CELL" /> <statusCode code="completed" /> <effectiveTime value="657003079294" /> <value unit="k/cumm" xsi: type="PQ" value="4.2" /> <interpretationCode codeSystem="local" code="* " /> <referenceRange> <observationRange> <text> 5.0-10.0</text> </observationRange> </referenceRange> </observation> </component> <component> <observation moodCode ="EVN" classCode="OBS"> <templateId root= "03.28.840.1.979156.11.29.21.4.2" /> <id nullFlavor="NA" /> < code codeSystem="local" code="HGBT" displayName="HEMOGLOBIN" /> < statusCode code="completed" /> <effectiveTime value="" /> <value unit="gm/dL" xsi:type="PQ" value="8.5" /> < interpretationCode codeSystem="local" code="*" /> <referenceRange> <observationRange> <text>12.0-16.0</text> </ observationRange> </referenceRange> </observation> </ component> <component> <observation moodCode="EVN" classCode="OBS"> <templateId root="03.28.840.1.175396.22.4.2" /> <id nullFlavor="NA" /> <code codeSystem="local" code="HCTT" displayName= "HEMATOCRIT" /> <statusCode code="completed" /> < effectiveTime value="" /> <value unit="%" xsi:type="PQ " value="27.2" /> <interpretationCode codeSystem="local" code="*" /> <referenceRange> <observationRange> <text>37.0- 47.0</text> </observationRange> </referenceRange> </ observation> </component> <component> <observation moodCode= "EVN" classCode="OBS"> <templateId root="2.16.840.1.976421...4.2 " /> <id nullFlavor="NA" /> <code codeSystem="local" code= "NRBC%" displayName="NRBC %" /> <statusCode code="completed" / > <effectiveTime value="" /> <value unit="/100WBC " xsi:type="PQ" value="0.0" /> <referenceRange> < observationRange> <text>0.0-0.0</text> </ observationRange> </referenceRange> </observation> </ component> <component> <observation moodCode="EVN" classCode="OBS"> <templateId root="2.16.840.1.145761.10.4.2" /> <id nullFlavor="NA" /> <code codeSystem="local" code="PLTT" displayName= "PLATELET COUNT" /> <statusCode code="completed" /> < effectiveTime value="" /> <value unit="k/cumm" xsi:type="PQ " value="160" /> <referenceRange> <observationRange> <text>150-400</text> </observationRange> </ referenceRange> </observation> </component> </organizer> </entry > <entry> <organizer moodCode="EVN" classCode="BATTERY"> <templateId root="216.840.1.286966.10.22.4.1" /> <id nullFlavor="NA" /> <code codeSystem="local" code="PT" displayName="PROTHROMBIN TIME WITH INR" /> < statusCode code="completed" /> <component> <observation moodCode= "EVN" classCode="OBS"> <templateId root="216.840.1.149425.10...4.2 " /> <id nullFlavor="NA" /> <code codeSystem="local" code= "INRX" displayName="INTERNATIONAL NORMAL RATIO" /> <statusCode code= "completed" /> <effectiveTime value="809061944098" /> <value unit="" xsi:type="PQ" value="1.7" /> <interpretationCode codeSystem= "local" code="*" /> <referenceRange> <observationRange> <text>0.9-1.1</text> </observationRange> </ referenceRange> </observation> </component> <component> <observation moodCode="EVN" classCode="OBS"> <templateId root= "216.840.1.107576.11.29.21.4.2" /> <id nullFlavor="NA" /> < code codeSystem="local" code="PTPAT" displayName="PROTHROMBIN TIME" /> <statusCode code="completed" /> <effectiveTime value="" /> <value unit="sec" xsi:type="PQ" value="19.8" /> < interpretationCode codeSystem="local" code="*" /> <referenceRange> <observationRange> <text>10.0-12.8</text> </ observationRange> </referenceRange> </observation> </ component> </organizer> </entry> <entry> <organizer moodCode="EVN" classCode="BATTERY"> <templateId root="216.840.1.683761.11.29.21.4.1" /> <id nullFlavor="NA" /> <code codeSystem="local" code="METABC" displayName="METABOLIC PANEL, COMPREHN" /> <statusCode code="completed" /> <component> <observation moodCode="EVN" classCode="OBS"> < templateId root="216.840.1.466614...4.2" /> <id nullFlavor="NA " /> <code codeSystem="local" code="K" displayName="POTASSIUM" /> <statusCode code="completed" /> <effectiveTime value=" " /> <value unit="mmol/L" xsi:type="PQ" value="4.9" /> < referenceRange> <observationRange> <text>3.5-5.3</text> </observationRange> </referenceRange> </observation > </component> <component> <observation moodCode="EVN" classCode="OBS"> <templateId root="16.840.1.482898....4.2" /> <id nullFlavor="NA" /> <code codeSystem="local" code="eGFR" displayName="EST GFR (MDRD)" /> <statusCode code="completed" /> <effectiveTime value="892557203164" /> <value unit="mL/min" xsi:type ="PQ" value="> 60" /> <referenceRange> <observationRange > <text>> 59</text> </observationRange> </ referenceRange> </observation> </component> <component> <observation moodCode="EVN" classCode="OBS"> <templateId root= "16.840.1.071268.10..22.4.2" /> <id nullFlavor="NA" /> < code codeSystem="local" code="GAP" displayName="ANION GAP" /> < statusCode code="completed" /> <effectiveTime value="575006133610" /> <value unit="mmol/L" xsi:type="PQ" value="7" /> < referenceRange> <observationRange> <text>5-15</text> </observationRange> </referenceRange> </observation> </component> <component> <observation moodCode="EVN" classCode= "OBS"> <templateId root="03.28.840.1.262620.10..4.2" /> < id nullFlavor="NA" /> <code codeSystem="local" code="eCrCl" displayName ="EST CrCl (CG)" /> <statusCode code="completed" /> < effectiveTime value="975354849760" /> <value unit="mL/min" xsi:type="PQ " value="> 60" /> <referenceRange> <observationRange> <text>> 59</text> </observationRange> </ referenceRange> </observation> </component> <component> <observation moodCode="EVN" classCode="OBS"> <templateId root= "03.28.840.1.854555.10...4.2" /> <id nullFlavor="NA" /> < code codeSystem="local" code="GLU" displayName="GLUCOSE" /> < statusCode code="completed" /> <effectiveTime value="301526713824" /> <value unit="mg/dL" xsi:type="PQ" value="108" /> < interpretationCode codeSystem="local" code="*" /> <referenceRange> <observationRange> <text>70-99</text> </ observationRange> </referenceRange> </observation> </ component> <component> <observation moodCode="EVN" classCode="OBS"> <templateId root="216.840.1.980057.10.22.4.2" /> <id nullFlavor="NA" /> <code codeSystem="local" code="CA" displayName= "CALCIUM" /> <statusCode code="completed" /> <effectiveTime value="982931372424" /> <value unit="mg/dL" xsi:type="PQ" value="8.4" / > <interpretationCode codeSystem="local" code="*" /> < referenceRange> <observationRange> <text>8.5-10.1</text > </observationRange> </referenceRange> </observation > </component> <component> <observation moodCode="EVN" classCode="OBS"> <templateId root="16.840.1.977970.11.29.21.4.2" /> <id nullFlavor="NA" /> <code codeSystem="local" code="BUN" displayName="BLOOD UREA NITROGEN" /> <statusCode code="completed" /> <effectiveTime value="105112878968" /> <value unit="mg/dL" xsi: type="PQ" value="16" /> <referenceRange> <observationRange> <text>7-20</text> </observationRange> </ referenceRange> </observation> </component> <component> <observation moodCode="EVN" classCode="OBS"> <templateId root= "16.840.1.084099.10..4.2" /> <id nullFlavor="NA" /> < code codeSystem="local" code="CREAT" displayName="CREATININE" /> < statusCode code="completed" /> <effectiveTime value="324505914168" /> <value unit="mg/dL" xsi:type="PQ" value="0.7" /> < referenceRange> <observationRange> <text>0.6-1.0</text> </observationRange> </referenceRange> </observation > </component> <component> <observation moodCode="EVN" classCode="OBS"> <templateId root="216.840.1.271188.10..4.2" /> <id nullFlavor="NA" /> <code codeSystem="local" code="NA" displayName="SODIUM" /> <statusCode code="completed" /> < effectiveTime value="" /> <value unit="mmol/L" xsi:type="PQ " value="143" /> <referenceRange> <observationRange> <text>135-148</text> </observationRange> </ referenceRange> </observation> </component> <component> <observation moodCode="EVN" classCode="OBS"> <templateId root= "03.28.840.1.656026.11.29.21.4.2" /> <id nullFlavor="NA" /> < code codeSystem="local" code="CL" displayName="CHLORIDE" /> < statusCode code="completed" /> <effectiveTime value="" /> <value unit="mmol/L" xsi:type="PQ" value="105" /> < referenceRange> <observationRange> <text>98-110</text> </observationRange> </referenceRange> </observation> </component> <component> <observation moodCode="EVN" classCode ="OBS"> <templateId root="16.840.1.549712.10.22.4.2" /> < id nullFlavor="NA" /> <code codeSystem="local" code="AST" displayName= "AST/SGOT" /> <statusCode code="completed" /> <effectiveTime value="" /> <value unit="Units/L" xsi:type="PQ" value="45" /> <interpretationCode codeSystem="local" code="*" /> < referenceRange> <observationRange> <text>10-37</text> </observationRange> </referenceRange> </observation> </component> <component> <observation moodCode="EVN" classCode= "OBS"> <templateId root="216.840.1.618267.10..22.4.2" /> < id nullFlavor="NA" /> <code codeSystem="local" code="ALT" displayName= "ALT/SGPT" /> <statusCode code="completed" /> <effectiveTime value="" /> <value unit="Units/L" xsi:type="PQ" value="76" /> <interpretationCode codeSystem="local" code="*" /> < referenceRange> <observationRange> <text>< 66</text> </observationRange> </referenceRange> </observation > </component> <component> <observation moodCode="EVN" classCode="OBS"> <templateId root="216.840.1.093539.10..22.4.2" /> <id nullFlavor="NA" /> <code codeSystem="local" code="CO2" displayName="CARBON DIOXIDE" /> <statusCode code="completed" /> <effectiveTime value="" /> <value unit="mmol/L" xsi:type ="PQ" value="31" /> <referenceRange> <observationRange> <text>21-32</text> </observationRange> </ referenceRange> </observation> </component> <component> <observation moodCode="EVN" classCode="OBS"> <templateId root= "03.28.840.1.407163.10.2022.4.2" /> <id nullFlavor="NA" /> < code codeSystem="local" code="TP" displayName="TOTAL PROTEIN" /> < statusCode code="completed" /> <effectiveTime value="305248029500" /> <value unit="gm/dL" xsi:type="PQ" value="6.4" /> < referenceRange> <observationRange> <text>6.4-8.2</text> </observationRange> </referenceRange> </observation > </component> <component> <observation moodCode="EVN" classCode="OBS"> <templateId root="840.1.399007.1022.4.2" /> <id nullFlavor="NA" /> <code codeSystem="local" code="ALB" displayName="ALBUMIN" /> <statusCode code="completed" /> < effectiveTime value="915177694660" /> <value unit="gm/dL" xsi:type="PQ " value="2.8" /> <interpretationCode codeSystem="local" code="*" /> <referenceRange> <observationRange> <text>3.4-5.0 </text> </observationRange> </referenceRange> </ observation> </component> <component> <observation moodCode= "EVN" classCode="OBS"> <templateId root="03.28.840.1.239220.10.2022.4.2 " /> <id nullFlavor="NA" /> <code codeSystem="local" code= "BILTOT" displayName="BILI TOTAL" /> <statusCode code="completed" /> <effectiveTime value="510856821871" /> <value unit="mg/dL" xsi: type="PQ" value="0.4" /> <referenceRange> <observationRange > <text>0.0-1.0</text> </observationRange> </ referenceRange> </observation> </component> <component> <observation moodCode="EVN" classCode="OBS"> <templateId root= "216.840.1.703725.10..22.4.2" /> <id nullFlavor="NA" /> < code codeSystem="local" code="ALKP" displayName="ALKALINE PHOSPHATASE TOTAL" /> <statusCode code="completed" /> <effectiveTime value= "521012616300" /> <value unit="IU/L" xsi:type="PQ" value="189" /> <interpretationCode codeSystem="local" code="*" /> <referenceRange > <observationRange> <text>45-117</text> </ observationRange> </referenceRange> </observation> </ component> </organizer> </entry> <entry> <organizer moodCode="EVN" classCode="BATTERY"> <templateId root="03.28.840.1.903904.10..22.4.1" /> <id nullFlavor="NA" /> <code codeSystem="local" code="TSH" displayName ="THYROID STIM HORMONE (TSH)" /> <statusCode code="completed" /> < component> <observation moodCode="EVN" classCode="OBS"> < templateId root="16.840.1.973527.10..22.4.2" /> <id nullFlavor="NA " /> <code codeSystem="local" code="TSH" displayName="THYROID STIM HORMONE (TSH)" /> <statusCode code="completed" /> < effectiveTime value="513988926734" /> <value unit="uIU/mL" xsi:type="PQ " value="4.24" /> <referenceRange> <observationRange> <text>0.34-4.82</text> </observationRange> </ referenceRange> </observation> </component> </organizer> </entry > <entry> <organizer moodCode="EVN" classCode="BATTERY"> <templateId root="03.28.840.1.446212.10..22.4.1" /> <id nullFlavor="NA" /> <code codeSystem="local" code="BNP" displayName="B-TYPE NATRIURETIC PEPTIDE" /> < statusCode code="completed" /> <component> <observation moodCode= "EVN" classCode="OBS"> <templateId root="840.1.846595.11.29.21.4.2 " /> <id nullFlavor="NA" /> <code codeSystem="local" code="BNP " displayName="B-TYPE NATRIURETIC PEPTIDE" /> <statusCode code= "completed" /> <effectiveTime value="901709268533" /> <value unit="pg/mL" xsi:type="PQ" value="143" /> <interpretationCode codeSystem="local" code="*" /> <referenceRange> < observationRange> <text>< 100</text> </ observationRange> </referenceRange> </observation> </ component> </organizer> </entry> <entry> <organizer moodCode="EVN" classCode="BATTERY"> <templateId root="03.28.840.1.459487.10.22.4.1" /> <id nullFlavor="NA" /> <code codeSystem="local" code="PT" displayName= "PROTHROMBIN TIME WITH INR" /> <statusCode code="completed" /> < component> <observation moodCode="EVN" classCode="OBS"> < templateId root="03.28.840.1.116878.10..22.4.2" /> <id nullFlavor="NA " /> <code codeSystem="local" code="INRX" displayName="INTERNATIONAL NORMAL RATIO" /> <statusCode code="completed" /> < effectiveTime value="" /> <value unit="" xsi:type="PQ" value="1.9" /> <interpretationCode codeSystem="local" code="*" /> <referenceRange> <observationRange> <text>0.9-1.1</ text> </observationRange> </referenceRange> </ observation> </component> <component> <observation moodCode= "EVN" classCode="OBS"> <templateId root="03.28.840.1.545657.11.29.21.4.2 " /> <id nullFlavor="NA" /> <code codeSystem="local" code= "PTPAT" displayName="PROTHROMBIN TIME" /> <statusCode code="completed" /> <effectiveTime value="" /> <value unit="sec" xsi:type="PQ" value="22.3" /> <interpretationCode codeSystem="local" code="*" /> <referenceRange> <observationRange> <text>10.0-12.8</text> </observationRange> </ referenceRange> </observation> </component> </organizer> </entry > <entry> <organizer moodCode="EVN" classCode="BATTERY"> <templateId root="03.28.840.1.429455.22.4.1" /> <id nullFlavor="NA" /> <code codeSystem="local" code="METAB" displayName="METABOLIC PANEL, BASIC" /> < statusCode code="completed" /> <component> <observation moodCode= "EVN" classCode="OBS"> <templateId root="03.28.840.1.400820.22.4.2 " /> <id nullFlavor="NA" /> <code codeSystem="local" code="K" displayName="POTASSIUM" /> <statusCode code="completed" /> < effectiveTime value="766262865024" /> <value unit="mmol/L" xsi:type="PQ " value="3.5" /> <referenceRange> <observationRange> <text>3.5-5.3</text> </observationRange> </ referenceRange> </observation> </component> <component> <observation moodCode="EVN" classCode="OBS"> <templateId root= "216.840.1.923977....4.2" /> <id nullFlavor="NA" /> < code codeSystem="local" code="eGFR" displayName="EST GFR (MDRD)" /> < statusCode code="completed" /> <effectiveTime value="624276874900" /> <value unit="mL/min" xsi:type="PQ" value="> 60" /> < referenceRange> <observationRange> <text>> 59</text> </observationRange> </referenceRange> </observation > </component> <component> <observation moodCode="EVN" classCode="OBS"> <templateId root="2.16.840.1.743910....4.2" /> <id nullFlavor="NA" /> <code codeSystem="local" code="GAP" displayName="ANION GAP" /> <statusCode code="completed" /> < effectiveTime value="605681334704" /> <value unit="mmol/L" xsi:type="PQ " value="8" /> <referenceRange> <observationRange> <text>5-15</text> </observationRange> </referenceRange > </observation> </component> <component> <observation moodCode="EVN" classCode="OBS"> <templateId root= "03.28.840.1.210766.10.22.4.2" /> <id nullFlavor="NA" /> < code codeSystem="local" code="eCrCl" displayName="EST CrCl (CG)" /> < statusCode code="completed" /> <effectiveTime value="" /> <value unit="mL/min" xsi:type="PQ" value="> 60" /> < referenceRange> <observationRange> <text>> 59</text> </observationRange> </referenceRange> </observation > </component> <component> <observation moodCode="EVN" classCode="OBS"> <templateId root="840.1.753217.11.29.21.4.2" /> <id nullFlavor="NA" /> <code codeSystem="local" code="GLU" displayName="GLUCOSE" /> <statusCode code="completed" /> < effectiveTime value="" /> <value unit="mg/dL" xsi:type="PQ " value="98" /> <referenceRange> <observationRange> <text>70-99</text> </observationRange> </ referenceRange> </observation> </component> <component> <observation moodCode="EVN" classCode="OBS"> <templateId root= "03.28.840.1.367280.1022.4.2" /> <id nullFlavor="NA" /> < code codeSystem="local" code="CA" displayName="CALCIUM" /> <statusCode code="completed" /> <effectiveTime value="810673557705" /> < value unit="mg/dL" xsi:type="PQ" value="8.3" /> <interpretationCode codeSystem="local" code="*" /> <referenceRange> < observationRange> <text>8.5-10.1</text> </ observationRange> </referenceRange> </observation> </ component> <component> <observation moodCode="EVN" classCode="OBS"> <templateId root="216.840.1.745368.10..4.2" /> <id nullFlavor="NA" /> <code codeSystem="local" code="BUN" displayName= "BLOOD UREA NITROGEN" /> <statusCode code="completed" /> < effectiveTime value="816054682645" /> <value unit="mg/dL" xsi:type="PQ " value="18" /> <referenceRange> <observationRange> <text>7-20</text> </observationRange> </referenceRange > </observation> </component> <component> <observation moodCode="EVN" classCode="OBS"> <templateId root= "03.28.840.1.793243.11.29.21.4.2" /> <id nullFlavor="NA" /> < code codeSystem="local" code="CREAT" displayName="CREATININE" /> < statusCode code="completed" /> <effectiveTime value="462696592505" /> <value unit="mg/dL" xsi:type="PQ" value="0.7" /> < referenceRange> <observationRange> <text>0.6-1.0</text> </observationRange> </referenceRange> </observation > </component> <component> <observation moodCode="EVN" classCode="OBS"> <templateId root="03.28.840.1.328153.11.29.21.4.2" /> <id nullFlavor="NA" /> <code codeSystem="local" code="NA" displayName="SODIUM" /> <statusCode code="completed" /> < effectiveTime value="763890000021" /> <value unit="mmol/L" xsi:type="PQ " value="144" /> <referenceRange> <observationRange> <text>135-148</text> </observationRange> </ referenceRange> </observation> </component> <component> <observation moodCode="EVN" classCode="OBS"> <templateId root= "216.840.1.099787.10...4.2" /> <id nullFlavor="NA" /> < code codeSystem="local" code="CL" displayName="CHLORIDE" /> < statusCode code="completed" /> <effectiveTime value="505149525309" /> <value unit="mmol/L" xsi:type="PQ" value="105" /> < referenceRange> <observationRange> <text>98-110</text> </observationRange> </referenceRange> </observation> </component> <component> <observation moodCode="EVN" classCode ="OBS"> <templateId root="216.840.1.048426.10..4.2" /> < id nullFlavor="NA" /> <code codeSystem="local" code="CO2" displayName= "CARBON DIOXIDE" /> <statusCode code="completed" /> < effectiveTime value="[id number]" /> <value unit="mmol/L" xsi:type="PQ " value="31" /> <referenceRange> <observationRange> <text>21-32</text> </observationRange> </ referenceRange> </observation> </component> </organizer> </entry > <entry> <organizer moodCode="EVN" classCode="BATTERY"> <templateId root="216.840.1.050145.10..22.4.1" /> <id nullFlavor="NA" /> <code codeSystem="local" code="[id number]" displayName="Protime " /> <statusCode code="completed" /> <component> <observation moodCode="EVN" classCode="OBS"> <templateId root="03.28.840.1.657614.10..22.4.2" /> <id nullFlavor="NA" /> <code codeSystem="local" code="Ifw007" displayName="INR" /> <statusCode code="completed" /> < effectiveTime value="[id number]" /> <value unit="" xsi:type="PQ" value="2.0" /> <referenceRange> <observationRange> <text>1.0-4.0</text> </observationRange> </ referenceRange> </observation> </component> <component> <observation moodCode="EVN" classCode="OBS"> <templateId root= "03.28.840.1.969151.11.29.21.4.2" /> <id nullFlavor="NA" /> < code codeSystem="local" code="[id number]" displayName="Protime" /> < statusCode code="completed" /> <effectiveTime value="[id number]" /> <value unit="Sec" xsi:type="PQ" value="23.5" /> < interpretationCode codeSystem="local" code="H" /> <referenceRange> <observationRange> <text>9.9-12.8</text> </ observationRange> </referenceRange> </observation> </ component> </organizer> </entry> <entry> <organizer moodCode="EVN" classCode="BATTERY"> <templateId root="03.28.840.1.150334.10..22.4.1" /> <id nullFlavor="NA" /> <code codeSystem="local" code="77401-8" displayName="PT panel in platelet poor plasma by coagulation assay" /> < statusCode code="completed" /> <component> <observation moodCode= "EVN" classCode="OBS"> <templateId root="216.840.1.487649.10..4.2 " /> <id nullFlavor="NA" /> <code codeSystem="local" code= "5902-2" displayName="Prothrombin time (PT) in platelet poor plasma by coagulation assay" /> <statusCode code="completed" /> < effectiveTime value="568531071848" /> <value unit="s" xsi:type="PQ" value="25.2" /> <interpretationCode codeSystem="local" code="" /> <referenceRange> <observationRange> <text>12.2- 14.7</text> </observationRange> </referenceRange> </ observation> </component> <component> <observation moodCode= "EVN" classCode="OBS"> <templateId root="16.840.1.475817.10..4.2 " /> <id nullFlavor="NA" /> <code codeSystem="local" code= "43996-8" displayName="INR in platelet poor plasma or blood by coagulation assay " /> <statusCode code="completed" /> <effectiveTime value= "833140531689" /> <value unit="" xsi:type="PQ" value="2.3" /> <interpretationCode codeSystem="local" code="" /> <referenceRange> <observationRange> <text>0.8-1.4</text> </ observationRange> </referenceRange> </observation> </ component> </organizer> </entry> <entry> <organizer moodCode="EVN" classCode="BATTERY"> <templateId root="2.16.840.1.786940.10.4.1" /> <id nullFlavor="NA" /> <code codeSystem="local" code="25595-1" displayName="PT panel in platelet poor plasma by coagulation assay" /> < statusCode code="completed" /> <component> <observation moodCode= "EVN" classCode="OBS"> <templateId root="2.16.840.1.965433.11.29.21.4.2 " /> <id nullFlavor="NA" /> <code codeSystem="local" code= "5902-2" displayName="Prothrombin time (PT) in platelet poor plasma by coagulation assay" /> <statusCode code="completed" /> < effectiveTime value="928327661023" /> <value unit="s" xsi:type="PQ" value="24.7" /> <interpretationCode codeSystem="local" code="" /> <referenceRange> <observationRange> <text>12.2- 14.7</text> </observationRange> </referenceRange> </ observation> </component> <component> <observation moodCode= "EVN" classCode="OBS"> <templateId root="2.16.840.1.507881.11.29.21.4.2 " /> <id nullFlavor="NA" /> <code codeSystem="local" code= "68426-0" displayName="INR in platelet poor plasma or blood by coagulation assay " /> <statusCode code="completed" /> <effectiveTime value= "074376335929" /> <value unit="" xsi:type="PQ" value="2.2" /> <interpretationCode codeSystem="local" code="" /> <referenceRange> <observationRange> <text>0.8-1.4</text> </ observationRange> </referenceRange> </observation> </ component> </organizer> </entry> <entry> <organizer moodCode="EVN" classCode="BATTERY"> <templateId root="216.840.1.358494.10.20.22.4.1" /> <id nullFlavor="NA" /> <code codeSystem="local" code="90825-8" displayName="PT panel in platelet poor plasma by coagulation assay" /> < statusCode code="completed" /> <component> <observation moodCode= "EVN" classCode="OBS"> <templateId root="16.840.1.966313.10..22.4.2 " /> <id nullFlavor="NA" /> <code codeSystem="local" code= "5902-2" displayName="Prothrombin time (PT) in platelet poor plasma by coagulation assay" /> <statusCode code="completed" /> < effectiveTime value="" /> <value unit="s" xsi:type="PQ" value="23.7" /> <interpretationCode codeSystem="local" code="" /> <referenceRange> <observationRange> <text>12.2- 14.7</text> </observationRange> </referenceRange> </ observation> </component> <component> <observation moodCode= "EVN" classCode="OBS"> <templateId root="16.840.1.920918.10..22.4.2 " /> <id nullFlavor="NA" /> <code codeSystem="local" code= "27049-6" displayName="INR in platelet poor plasma or blood by coagulation assay " /> <statusCode code="completed" /> <effectiveTime value= "348277740336" /> <value unit="" xsi:type="PQ" value="2.1" /> <interpretationCode codeSystem="local" code="" /> <referenceRange> <observationRange> <text>0.8-1.4</text> </ observationRange> </referenceRange> </observation> </ component> </organizer> </entry> <entry> <organizer moodCode="EVN" classCode="BATTERY"> <templateId root="216.840.1.123007.10..22.4.1" /> <id nullFlavor="NA" /> <code codeSystem="local" code="32399-5" displayName="PT panel in platelet poor plasma by coagulation assay" /> < statusCode code="completed" /> <component> <observation moodCode= "EVN" classCode="OBS"> <templateId root="2.16.840.1.528384.10...4.2 " /> <id nullFlavor="NA" /> <code codeSystem="local" code= "5902-2" displayName="Prothrombin time (PT) in platelet poor plasma by coagulation assay" /> <statusCode code="completed" /> < effectiveTime value="360441681668" /> <value unit="s" xsi:type="PQ" value="24.7" /> <interpretationCode codeSystem="local" code="" /> <referenceRange> <observationRange> <text>12.2- 14.7</text> </observationRange> </referenceRange> </ observation> </component> <component> <observation moodCode= "EVN" classCode="OBS"> <templateId root="216.840.1.989297.10.4.2 " /> <id nullFlavor="NA" /> <code codeSystem="local" code= "49550-0" displayName="INR in platelet poor plasma or blood by coagulation assay " /> <statusCode code="completed" /> <effectiveTime value= "861002497333" /> <value unit="" xsi:type="PQ" value="2.2" /> <interpretationCode codeSystem="local" code="" /> <referenceRange> <observationRange> <text>0.8-1.4</text> </ observationRange> </referenceRange> </observation> </ component> </organizer> </entry> <entry> <organizer moodCode="EVN" classCode="BATTERY"> <templateId root="16.840.1.346033.10..22.4.1" /> <id nullFlavor="NA" /> <code codeSystem="local" code="78681-7" displayName="PT panel in platelet poor plasma by coagulation assay" /> < statusCode code="completed" /> <component> <observation moodCode= "EVN" classCode="OBS"> <templateId root="16.840.1.637012.10..22.4.2 " /> <id nullFlavor="NA" /> <code codeSystem="local" code= "5902-2" displayName="Prothrombin time (PT) in platelet poor plasma by coagulation assay" /> <statusCode code="completed" /> < effectiveTime value="671172000553" /> <value unit="s" xsi:type="PQ" value="25.2" /> <interpretationCode codeSystem="local" code="" /> <referenceRange> <observationRange> <text>12.2- 14.7</text> </observationRange> </referenceRange> </ observation> </component> <component> <observation moodCode= "EVN" classCode="OBS"> <templateId root="03.28.840.1.120522.10..22.4.2 " /> <id nullFlavor="NA" /> <code codeSystem="local" code= "51326-8" displayName="INR in platelet poor plasma or blood by coagulation assay " /> <statusCode code="completed" /> <effectiveTime value= "195267901830" /> <value unit="" xsi:type="PQ" value="2.3" /> <interpretationCode codeSystem="local" code="" /> <referenceRange> <observationRange> <text>0.8-1.4</text> </ observationRange> </referenceRange> </observation> </ component> </organizer> </entry> <entry> <organizer moodCode="EVN" classCode="BATTERY"> <templateId root="216.840.1.522356.10.22.4.1" /> <id nullFlavor="NA" /> <code codeSystem="local" code="40247-8" displayName="PT panel in platelet poor plasma by coagulation assay" /> < statusCode code="completed" /> <component> <observation moodCode= "EVN" classCode="OBS"> <templateId root="216.840.1.131893.10...4.2 " /> <id nullFlavor="NA" /> <code codeSystem="local" code= "5902-2" displayName="Prothrombin time (PT) in platelet poor plasma by coagulation assay" /> <statusCode code="completed" /> < effectiveTime value="226078371466" /> <value unit="s" xsi:type="PQ" value="23.6" /> <interpretationCode codeSystem="local" code="" /> <referenceRange> <observationRange> <text>12.2- 14.7</text> </observationRange> </referenceRange> </ observation> </component> <component> <observation moodCode= "EVN" classCode="OBS"> <templateId root="216.840.1.173054.10...4.2 " /> <id nullFlavor="NA" /> <code codeSystem="local" code= "44013-9" displayName="INR in platelet poor plasma or blood by coagulation assay " /> <statusCode code="completed" /> <effectiveTime value= "944150964849" /> <value unit="" xsi:type="PQ" value="2.1" /> <interpretationCode codeSystem="local" code="" /> <referenceRange> <observationRange> <text>0.8-1.4</text> </ observationRange> </referenceRange> </observation> </ component> </organizer> </entry> <entry> <organizer moodCode="EVN" classCode="BATTERY"> <templateId root="216.840.1.357025.10.20.22.4.1" /> <id nullFlavor="NA" /> <code codeSystem="local" code="39228-7" displayName="Complete blood count (CBC) with automated white blood cell (WBC) differential" /> <statusCode code="completed" /> <component> < observation moodCode="EVN" classCode="OBS"> <templateId root= "216.840.1.198724.10.20.22.4.2" /> <id nullFlavor="NA" /> < code codeSystem="local" code="6690-2" displayName="Blood leukocytes automated count (number/volume)" /> <statusCode code="completed" /> < effectiveTime value="606461443678" /> <value unit="10*3/uL" xsi:type= "PQ" value="7.3" /> <referenceRange> <observationRange> <text>4.3-11.0</text> </observationRange> </ referenceRange> </observation> </component> <component> <observation moodCode="EVN" classCode="OBS"> <templateId root= "216.840.1.717034.10.20.22.4.2" /> <id nullFlavor="NA" /> < code codeSystem="local" code="789-8" displayName="Blood erythrocytes automated count (number/volume)" /> <statusCode code="completed" /> < effectiveTime value="511063204438" /> <value unit="10*6/uL" xsi:type= "PQ" value="3.50" /> <interpretationCode codeSystem="local" code="" / > <referenceRange> <observationRange> <text> 4.35-5.85</text> </observationRange> </referenceRange> </observation> </component> <component> <observation moodCode="EVN" classCode="OBS"> <templateId root= "2.16.840.1.113456.10..22.4.2" /> <id nullFlavor="NA" /> < code codeSystem="local" code="12167-2" displayName="Venous blood hemoglobin measurement (mass/volume)" /> <statusCode code="completed" /> <effectiveTime value="" /> <value unit="g/dL" xsi:type="PQ " value="10.0" /> <interpretationCode codeSystem="local" code="" /> <referenceRange> <observationRange> <text>11.5- 16.0</text> </observationRange> </referenceRange> </ observation> </component> <component> <observation moodCode= "EVN" classCode="OBS"> <templateId root="2.16.840.1.619281.10..22.4.2 " /> <id nullFlavor="NA" /> <code codeSystem="local" code= "09409-0" displayName="Blood hematocrit (volume fraction)" /> < statusCode code="completed" /> <effectiveTime value="643634705181" /> <value unit="%" xsi:type="PQ" value="33" /> < interpretationCode codeSystem="local" code="" /> <referenceRange> <observationRange> <text>35-52</text> </ observationRange> </referenceRange> </observation> </ component> <component> <observation moodCode="EVN" classCode="OBS"> <templateId root="216.840.1.353626.10.20.22.4.2" /> <id nullFlavor="NA" /> <code codeSystem="local" code="787-2" displayName= "Automated erythrocyte mean corpuscular volume" /> <statusCode code= "completed" /> <effectiveTime value="" /> <value unit="[foz_us]" xsi:type="PQ" value="93" /> <referenceRange> <observationRange> <text>80-99</text> </ observationRange> </referenceRange> </observation> </ component> <component> <observation moodCode="EVN" classCode="OBS"> <templateId root="03.28.840.1.278443.10..22.4.2" /> <id nullFlavor="NA" /> <code codeSystem="local" code="785-6" displayName= "Automated erythrocyte mean corpuscular hemoglobin (mass per erythrocyte)" /> <statusCode code="completed" /> <effectiveTime value= "" /> <value unit="pg" xsi:type="PQ" value="29" /> <referenceRange> <observationRange> <text>25-34</text > </observationRange> </referenceRange> </observation > </component> <component> <observation moodCode="EVN" classCode="OBS"> <templateId root="03.28.840.1.514011.10.20.22.4.2" /> <id nullFlavor="NA" /> <code codeSystem="local" code="786-4" displayName="Automated erythrocyte mean corpuscular hemoglobin concentration measurement (mass/volume)" /> <statusCode code="completed" /> <effectiveTime value="790336232412" /> <value unit="g/dL" xsi:type="PQ " value="31" /> <interpretationCode codeSystem="local" code="" /> <referenceRange> <observationRange> <text>32-36</ text> </observationRange> </referenceRange> </ observation> </component> <component> <observation moodCode= "EVN" classCode="OBS"> <templateId root="2.16.840.1.325023.10.20.22.4.2 " /> <id nullFlavor="NA" /> <code codeSystem="local" code="788 -0" displayName="Automated erythrocyte distribution width ratio" /> < statusCode code="completed" /> <effectiveTime value="" /> <value unit="%" xsi:type="PQ" value="15.7" /> < interpretationCode codeSystem="local" code="" /> <referenceRange> <observationRange> <text>10.0-14.5</text> </ observationRange> </referenceRange> </observation> </ component> <component> <observation moodCode="EVN" classCode="OBS"> <templateId root="2.16.840.1.998224.10.20.22.4.2" /> <id nullFlavor="NA" /> <code codeSystem="local" code="777-3" displayName= "Automated blood platelet count (count/volume)" /> <statusCode code= "completed" /> <effectiveTime value="338535221424" /> <value unit="10*3/uL" xsi:type="PQ" value="282" /> <referenceRange> <observationRange> <text>130-400</text> </ observationRange> </referenceRange> </observation> </ component> <component> <observation moodCode="EVN" classCode="OBS"> <templateId root="2.16.840.1.495428.10.2022.4.2" /> <id nullFlavor="NA" /> <code codeSystem="local" code="39900-4" displayName= "Automated blood platelet mean volume measurement" /> <statusCode code= "completed" /> <effectiveTime value="" /> <value unit="[foz_us]" xsi:type="PQ" value="10.0" /> <referenceRange> <observationRange> <text>7.4-10.4</text> </ observationRange> </referenceRange> </observation> </ component> <component> <observation moodCode="EVN" classCode="OBS"> <templateId root="216.840.1.298428.22.4.2" /> <id nullFlavor="NA" /> <code codeSystem="local" code="770-8" displayName= "Automated blood neutrophils/100 leukocytes" /> <statusCode code= "completed" /> <effectiveTime value="" /> <value unit="%" xsi:type="PQ" value="46" /> <referenceRange> < observationRange> <text>42-75</text> </observationRange > </referenceRange> </observation> </component> < component> <observation moodCode="EVN" classCode="OBS"> < templateId root="2.16.840.1.070438.10.20.22.4.2" /> <id nullFlavor="NA " /> <code codeSystem="local" code="736-9" displayName="Automated blood lymphocytes/100 leukocytes" /> <statusCode code="completed" /> <effectiveTime value="" /> <value unit="%" xsi: type="PQ" value="41" /> <referenceRange> <observationRange> <text>12-44</text> </observationRange> </ referenceRange> </observation> </component> <component> <observation moodCode="EVN" classCode="OBS"> <templateId root= "2.16.840.1.914985.10.20.22.4.2" /> <id nullFlavor="NA" /> < code codeSystem="local" code="64504-7" displayName="Blood monocytes/100 leukocytes" /> <statusCode code="completed" /> <effectiveTime value="" /> <value unit="%" xsi:type="PQ" value="8" /> <referenceRange> <observationRange> <text>0-12 </text> </observationRange> </referenceRange> </ observation> </component> <component> <observation moodCode= "EVN" classCode="OBS"> <templateId root="216.840.1.723614.10..22.4.2 " /> <id nullFlavor="NA" /> <code codeSystem="local" code="713 -8" displayName="Automated blood eosinophils/100 leukocytes" /> < statusCode code="completed" /> <effectiveTime value="" /> <value unit="%" xsi:type="PQ" value="4" /> <referenceRange > <observationRange> <text>0-10</text> </ observationRange> </referenceRange> </observation> </ component> <component> <observation moodCode="EVN" classCode="OBS"> <templateId root="2.16.840.1.964666.10.20.22.4.2" /> <id nullFlavor="NA" /> <code codeSystem="local" code="706-2" displayName= "Automated blood basophils/100 leukocytes" /> <statusCode code= "completed" /> <effectiveTime value="" /> <value unit="%" xsi:type="PQ" value="0" /> <referenceRange> < observationRange> <text>0-10</text> </observationRange> </referenceRange> </observation> </component> < component> <observation moodCode="EVN" classCode="OBS"> < templateId root="2.16.840.1.866702.10.20.22.4.2" /> <id nullFlavor="NA " /> <code codeSystem="local" code="751-8" displayName="Blood neutrophils automated count (number/volume)" /> <statusCode code= "completed" /> <effectiveTime value="" /> <value unit="10*3" xsi:type="PQ" value="3.4" /> <referenceRange> < observationRange> <text>1.8-7.8</text> </ observationRange> </referenceRange> </observation> </ component> <component> <observation moodCode="EVN" classCode="OBS"> <templateId root="2.16.840.1.565286.10.20.22.4.2" /> <id nullFlavor="NA" /> <code codeSystem="local" code="731-0" displayName= "Blood lymphocytes automated count (number/volume)" /> <statusCode code ="completed" /> <effectiveTime value="" /> <value unit="10*3" xsi:type="PQ" value="3.0" /> <referenceRange> < observationRange> <text>1.0-4.0</text> </ observationRange> </referenceRange> </observation> </ component> <component> <observation moodCode="EVN" classCode="OBS"> <templateId root="2.16.840.1.531562.10..22.4.2" /> <id nullFlavor="NA" /> <code codeSystem="local" code="742-7" displayName= "Blood monocytes automated count (number/volume)" /> <statusCode code= "completed" /> <effectiveTime value="" /> <value unit="10*3" xsi:type="PQ" value="0.6" /> <referenceRange> < observationRange> <text>0.0-1.0</text> </ observationRange> </referenceRange> </observation> </ component> <component> <observation moodCode="EVN" classCode="OBS"> <templateId root="2.16.840.1.538238...4.2" /> <id nullFlavor="NA" /> <code codeSystem="local" code="711-2" displayName= "Automated eosinophil count" /> <statusCode code="completed" /> <effectiveTime value="" /> <value unit="10*3/uL" xsi: type="PQ" value="0.3" /> <referenceRange> <observationRange > <text>0.0-0.3</text> </observationRange> </ referenceRange> </observation> </component> <component> <observation moodCode="EVN" classCode="OBS"> <templateId root= "2.16.840.1.739160.10..22.4.2" /> <id nullFlavor="NA" /> < code codeSystem="local" code="704-7" displayName="Automated blood basophil count (count/volume)" /> <statusCode code="completed" /> < effectiveTime value="" /> <value unit="10*3/uL" xsi:type= "PQ" value="0.0" /> <referenceRange> <observationRange> <text>0.0-0.1</text> </observationRange> </ referenceRange> </observation> </component> </organizer> </entry > <entry> <organizer moodCode="EVN" classCode="BATTERY"> <templateId root="2.16.840.1.602347.10..22.4.1" /> <id nullFlavor="NA" /> <code codeSystem="local" code="4537-7" displayName="Erythrocyte sedimentation rate by westergren method" /> <statusCode code="completed" /> <component> <observation moodCode="EVN" classCode="OBS"> <templateId root= "2.16.840.1.834078.10..22.4.2" /> <id nullFlavor="NA" /> < code codeSystem="local" code="4537-7" displayName="Erythrocyte sedimentation rate by westergren method" /> <statusCode code="completed" /> <effectiveTime value="303554166869" /> <value unit="mm" xsi:type="PQ" value="23" /> <referenceRange> <observationRange> <text>0-30</text> </observationRange> </referenceRange> </observation> </component> </organizer> </entry> <entry> < organizer moodCode="EVN" classCode="BATTERY"> <templateId root= "2.16.840.1.669743.10..22.4.1" /> <id nullFlavor="NA" /> <code codeSystem="local" code="40824-8" displayName="Comprehensive metabolic panel" / > <statusCode code="completed" /> <component> <observation moodCode="EVN" classCode="OBS"> <templateId root= "2.16.840.1.941730.10.20.22.4.2" /> <id nullFlavor="NA" /> < code codeSystem="local" code="2951-2" displayName="Serum or plasma sodium measurement (moles/volume)" /> <statusCode code="completed" /> <effectiveTime value="" /> <value unit="mmol/L" xsi:type= "PQ" value="145" /> <referenceRange> <observationRange> <text>135-145</text> </observationRange> </ referenceRange> </observation> </component> <component> <observation moodCode="EVN" classCode="OBS"> <templateId root= "2.16.840.1.492725.10..22.4.2" /> <id nullFlavor="NA" /> < code codeSystem="local" code="2823-3" displayName="Serum or plasma potassium measurement (moles/volume)" /> <statusCode code="completed" /> <effectiveTime value="" /> <value unit="mmol/L" xsi:type= "PQ" value="4.1" /> <referenceRange> <observationRange> <text>3.6-5.0</text> </observationRange> </ referenceRange> </observation> </component> <component> <observation moodCode="EVN" classCode="OBS"> <templateId root= ".16.840.1.700788.10.20.22.4.2" /> <id nullFlavor="NA" /> < code codeSystem="local" code="2075-0" displayName="Serum or plasma chloride measurement (moles/volume)" /> <statusCode code="completed" /> <effectiveTime value="" /> <value unit="mmol/L" xsi:type= "PQ" value="109" /> <interpretationCode codeSystem="local" code="" / > <referenceRange> <observationRange> <text>98- 107</text> </observationRange> </referenceRange> </ observation> </component> <component> <observation moodCode= "EVN" classCode="OBS"> <templateId root="2.16.840.1.875218.10.20.22.4.2 " /> <id nullFlavor="NA" /> <code codeSystem="local" code= "2027-10" displayName="Carbon dioxide" /> <statusCode code="completed" / > <effectiveTime value="136419270322" /> <value unit="mmol/L" xsi:type="PQ" value="26" /> <referenceRange> < observationRange> <text>21-32</text> </observationRange > </referenceRange> </observation> </component> < component> <observation moodCode="EVN" classCode="OBS"> < templateId root="216.840.1.062567.10..22.4.2" /> <id nullFlavor="NA " /> <code codeSystem="local" code="02545-0" displayName="Serum or plasma anion gap determination (moles/volume)" /> <statusCode code= "completed" /> <effectiveTime value="" /> <value unit="mmol/L" xsi:type="PQ" value="10" /> <referenceRange> < observationRange> <text>5-14</text> </observationRange> </referenceRange> </observation> </component> < component> <observation moodCode="EVN" classCode="OBS"> < templateId root="216.840.1.859799.10.20.22.4.2" /> <id nullFlavor="NA " /> <code codeSystem="local" code="3094-0" displayName="Serum or plasma urea nitrogen measurement (mass/volume)" /> <statusCode code= "completed" /> <effectiveTime value="" /> <value unit="mg/dL" xsi:type="PQ" value="26" /> <interpretationCode codeSystem ="local" code="" /> <referenceRange> <observationRange> <text>7-18</text> </observationRange> </ referenceRange> </observation> </component> <component> <observation moodCode="EVN" classCode="OBS"> <templateId root= "2.16.840.1.635578.10.20.22.4.2" /> <id nullFlavor="NA" /> < code codeSystem="local" code="2160-0" displayName="Serum or plasma creatinine measurement (mass/volume)" /> <statusCode code="completed" /> <effectiveTime value="" /> <value unit="mg/dL" xsi:type="PQ " value="0.66" /> <referenceRange> <observationRange> <text>0.60-1.30</text> </observationRange> </ referenceRange> </observation> </component> <component> <observation moodCode="EVN" classCode="OBS"> <templateId root= "2.16.840.1.702196.10.20.22.4.2" /> <id nullFlavor="NA" /> < code codeSystem="local" code="3097-3" displayName="Serum or plasma urea nitrogen /creatinine mass ratio" /> <statusCode code="completed" /> < effectiveTime value="" /> <value unit="" xsi:type="PQ" value="39" /> <referenceRange> <observationRange> <text>NRG</text> </observationRange> </referenceRange> </observation> </component> <component> <observation moodCode="EVN" classCode="OBS"> <templateId root= "2.16.840.1.892009.10..22.4.2" /> <id nullFlavor="NA" /> < code codeSystem="local" code="34270-8" displayName="Serum or plasma creatinine measurement with calculation of estimated glomerular filtration rate" /> <statusCode code="completed" /> <effectiveTime value="" /> <value unit="" xsi:type="PQ" value=">" /> < referenceRange> <observationRange> <text>NRG</text> </observationRange> </referenceRange> </observation> </component> <component> <observation moodCode="EVN" classCode= "OBS"> <templateId root="2.16.840.1.440054.10..4.2" /> < id nullFlavor="NA" /> <code codeSystem="local" code="2345-7" displayName="Serum or plasma glucose measurement (mass/volume)" /> < statusCode code="completed" /> <effectiveTime value="" /> <value unit="mg/dL" xsi:type="PQ" value="86" /> < referenceRange> <observationRange> <text>70-105</text> </observationRange> </referenceRange> </observation> </component> <component> <observation moodCode="EVN" classCode ="OBS"> <templateId root="2.16.840.1.374446.10..22.4.2" /> < id nullFlavor="NA" /> <code codeSystem="local" code="77319-2" displayName="Serum or plasma calcium measurement (mass/volume)" /> < statusCode code="completed" /> <effectiveTime value="" /> <value unit="mg/dL" xsi:type="PQ" value="8.9" /> < referenceRange> <observationRange> <text>8.5-10.1</text > </observationRange> </referenceRange> </observation > </component> <component> <observation moodCode="EVN" classCode="OBS"> <templateId root="2.16.840.1.164414.10..22.4.2" /> <id nullFlavor="NA" /> <code codeSystem="local" code="1974-03" displayName="Serum or plasma total bilirubin measurement (mass/volume)" /> <statusCode code="completed" /> <effectiveTime value="[id number] " /> <value unit="mg/dL" xsi:type="PQ" value="0.2" /> < referenceRange> <observationRange> <text>0.1-1.0</text> </observationRange> </referenceRange> </observation > </component> <component> <observation moodCode="EVN" classCode="OBS"> <templateId root="2.16.840.1.660262.10..22.4.2" /> <id nullFlavor="NA" /> <code codeSystem="local" code="6768-6" displayName="Serum or plasma alkaline phosphatase measurement (enzymatic activity/volume)" /> <statusCode code="completed" /> < effectiveTime value="389751685513" /> <value unit="U/L" xsi:type="PQ" value="119" /> <referenceRange> <observationRange> <text>40-136</text> </observationRange> </ referenceRange> </observation> </component> <component> <observation moodCode="EVN" classCode="OBS"> <templateId root= "2.16.840.1.649730...22.4.2" /> <id nullFlavor="NA" /> < code codeSystem="local" code="1919-09" displayName="Serum or plasma aspartate aminotransferase measurement (enzymatic activity/volume)" /> < statusCode code="completed" /> <effectiveTime value="" /> <value unit="U/L" xsi:type="PQ" value="14" /> <referenceRange > <observationRange> <text>5-34</text> </ observationRange> </referenceRange> </observation> </ component> <component> <observation moodCode="EVN" classCode="OBS"> <templateId root="2.16.840.1.041001...4.2" /> <id nullFlavor="NA" /> <code codeSystem="local" code="1741-07" displayName= "Serum or plasma alanine aminotransferase measurement (enzymatic activity/volume )" /> <statusCode code="completed" /> <effectiveTime value= "" /> <value unit="U/L" xsi:type="PQ" value="14" /> <referenceRange> <observationRange> <text>0-55</text > </observationRange> </referenceRange> </observation > </component> <component> <observation moodCode="EVN" classCode="OBS"> <templateId root="2.16.840.1.204263....4.2" /> <id nullFlavor="NA" /> <code codeSystem="local" code="2885-" displayName="Serum or plasma protein measurement (mass/volume)" /> < statusCode code="completed" /> <effectiveTime value="" /> <value unit="g/dL" xsi:type="PQ" value="6.0" /> < interpretationCode codeSystem="local" code="" /> <referenceRange> <observationRange> <text>6.4-8.2</text> </ observationRange> </referenceRange> </observation> </ component> <component> <observation moodCode="EVN" classCode="OBS"> <templateId root="16.840.1.669450.10.20.22.4.2" /> <id nullFlavor="NA" /> <code codeSystem="local" code="17502-16" displayName= "Serum or plasma albumin measurement (mass/volume)" /> <statusCode code ="completed" /> <effectiveTime value="845731211689" /> <value unit="g/dL" xsi:type="PQ" value="3.3" /> <referenceRange> < observationRange> <text>3.2-4.5</text> </ observationRange> </referenceRange> </observation> </ component> <component> <observation moodCode="EVN" classCode="OBS"> <templateId root="03.28.840.1.265684.10..22.4.2" /> <id nullFlavor="NA" /> <code codeSystem="local" code="CALCIUMCORR" displayName="CALCIUM CORRECTED" /> <statusCode code="completed" /> <effectiveTime value="726363398094" /> <value unit="mg/dL" xsi: type="PQ" value="9.5" /> <referenceRange> <observationRange > <text>8.5-10.1</text> </observationRange> </ referenceRange> </observation> </component> </organizer> </entry > <entry> <organizer moodCode="EVN" classCode="BATTERY"> <templateId root="16.840.1.788377.10.20.22.4.1" /> <id nullFlavor="NA" /> <code codeSystem="local" code="1987-06" displayName="Serum or plasma C reactive protein measurement (mass/volume)" /> <statusCode code="completed" /> <component> <observation moodCode="EVN" classCode="OBS"> < templateId root="03.28.840.1.237762.1022.4.2" /> <id nullFlavor="NA " /> <code codeSystem="local" code="1987-06" displayName="Serum or plasma C reactive protein measurement (mass/volume)" /> <statusCode code="completed" /> <effectiveTime value="724278558019" /> < value unit="mg/dL" xsi:type="PQ" value="0.74" /> <interpretationCode codeSystem="local" code="" /> <referenceRange> < observationRange> <text>0.00-0.50</text> </ observationRange> </referenceRange> </observation> </ component> </organizer> </entry> <entry> <organizer moodCode="EVN" classCode="BATTERY"> <templateId root="03.28.840.1.815561.10.4.1" /> <id nullFlavor="NA" /> <code codeSystem="local" code="09883-0" displayName="PT panel in platelet poor plasma by coagulation assay" /> < statusCode code="completed" /> <component> <observation moodCode= "EVN" classCode="OBS"> <templateId root="03.28.840.1.679254.10..22.4.2 " /> <id nullFlavor="NA" /> <code codeSystem="local" code= "5902-2" displayName="Prothrombin time (PT) in platelet poor plasma by coagulation assay" /> <statusCode code="completed" /> < effectiveTime value="074761737078" /> <value unit="s" xsi:type="PQ" value="24.6" /> <interpretationCode codeSystem="local" code="" /> <referenceRange> <observationRange> <text>12.2- 14.7</text> </observationRange> </referenceRange> </ observation> </component> <component> <observation moodCode= "EVN" classCode="OBS"> <templateId root="216.840.1.122676.10.22.4.2 " /> <id nullFlavor="NA" /> <code codeSystem="local" code= "45955-2" displayName="INR in platelet poor plasma or blood by coagulation assay " /> <statusCode code="completed" /> <effectiveTime value= "841369535068" /> <value unit="" xsi:type="PQ" value="2.2" /> <interpretationCode codeSystem="local" code="" /> <referenceRange> <observationRange> <text>0.8-1.4</text> </ observationRange> </referenceRange> </observation> </ component> </organizer> </entry> <entry> <organizer moodCode="EVN" classCode="BATTERY"> <templateId root="216.840.1.788042.10.22.4.1" /> <id nullFlavor="NA" /> <code codeSystem="local" code="06207-9" displayName="PT panel in platelet poor plasma by coagulation assay" /> < statusCode code="completed" /> <component> <observation moodCode= "EVN" classCode="OBS"> <templateId root="216.840.1.613111.10.2022.4.2 " /> <id nullFlavor="NA" /> <code codeSystem="local" code= "5902-2" displayName="Prothrombin time (PT) in platelet poor plasma by coagulation assay" /> <statusCode code="completed" /> < effectiveTime value="007112445824" /> <value unit="s" xsi:type="PQ" value="25.6" /> <interpretationCode codeSystem="local" code="" /> <referenceRange> <observationRange> <text>12.2- 14.7</text> </observationRange> </referenceRange> </ observation> </component> <component> <observation moodCode= "EVN" classCode="OBS"> <templateId root="16.840.1.159454.10.22.4.2 " /> <id nullFlavor="NA" /> <code codeSystem="local" code= "74385-1" displayName="INR in platelet poor plasma or blood by coagulation assay " /> <statusCode code="completed" /> <effectiveTime value= "949107873204" /> <value unit="" xsi:type="PQ" value="2.3" /> <interpretationCode codeSystem="local" code="" /> <referenceRange> <observationRange> <text>0.8-1.4</text> </ observationRange> </referenceRange> </observation> </ component> </organizer> </entry> <entry> <organizer moodCode="EVN" classCode="BATTERY"> <templateId root="03.28.840.1.987081.10.22.4.1" /> <id nullFlavor="NA" /> <code codeSystem="local" code="49604-4" displayName="Complete blood count (CBC) with automated white blood cell (WBC) differential" /> <statusCode code="completed" /> <component> < observation moodCode="EVN" classCode="OBS"> <templateId root= "03.28.840.1.084469.10.20.22.4.2" /> <id nullFlavor="NA" /> < code codeSystem="local" code="6690-2" displayName="Blood leukocytes automated count (number/volume)" /> <statusCode code="completed" /> < effectiveTime value="277425253199" /> <value unit="10*3/uL" xsi:type= "PQ" value="8.0" /> <referenceRange> <observationRange> <text>4.3-11.0</text> </observationRange> </ referenceRange> </observation> </component> <component> <observation moodCode="EVN" classCode="OBS"> <templateId root= "2.16.840.1.179133.10..22.4.2" /> <id nullFlavor="NA" /> < code codeSystem="local" code="789-8" displayName="Blood erythrocytes automated count (number/volume)" /> <statusCode code="completed" /> < effectiveTime value="309878419495" /> <value unit="10*6/uL" xsi:type= "PQ" value="3.88" /> <interpretationCode codeSystem="local" code="" / > <referenceRange> <observationRange> <text> 4.35-5.85</text> </observationRange> </referenceRange> </observation> </component> <component> <observation moodCode="EVN" classCode="OBS"> <templateId root= "216.840.1.788741.10..22.4.2" /> <id nullFlavor="NA" /> < code codeSystem="local" code="94461-2" displayName="Venous blood hemoglobin measurement (mass/volume)" /> <statusCode code="completed" /> <effectiveTime value="008142528042" /> <value unit="g/dL" xsi:type="PQ " value="11.3" /> <interpretationCode codeSystem="local" code="" /> <referenceRange> <observationRange> <text>11.5- 16.0</text> </observationRange> </referenceRange> </ observation> </component> <component> <observation moodCode= "EVN" classCode="OBS"> <templateId root="2.840.1.713948.10.20.22.4.2 " /> <id nullFlavor="NA" /> <code codeSystem="local" code= "32179-6" displayName="Blood hematocrit (volume fraction)" /> < statusCode code="completed" /> <effectiveTime value="344402392399" /> <value unit="%" xsi:type="PQ" value="36" /> < referenceRange> <observationRange> <text>35-52</text> </observationRange> </referenceRange> </observation> </component> <component> <observation moodCode="EVN" classCode= "OBS"> <templateId root="03.28.840.1.125936.10.20.22.4.2" /> < id nullFlavor="NA" /> <code codeSystem="local" code="787-2" displayName ="Automated erythrocyte mean corpuscular volume" /> <statusCode code= "completed" /> <effectiveTime value="386133705210" /> <value unit="[foz_us]" xsi:type="PQ" value="92" /> <referenceRange> <observationRange> <text>80-99</text> </ observationRange> </referenceRange> </observation> </ component> <component> <observation moodCode="EVN" classCode="OBS"> <templateId root="03.28.840.1.960481.10.20.22.4.2" /> <id nullFlavor="NA" /> <code codeSystem="local" code="785-6" displayName= "Automated erythrocyte mean corpuscular hemoglobin (mass per erythrocyte)" /> <statusCode code="completed" /> <effectiveTime value= "553120106403" /> <value unit="pg" xsi:type="PQ" value="29" /> <referenceRange> <observationRange> <text>25-34</text > </observationRange> </referenceRange> </observation > </component> <component> <observation moodCode="EVN" classCode="OBS"> <templateId root="2.16.840.1.179648.10.20.22.4.2" /> <id nullFlavor="NA" /> <code codeSystem="local" code="786-4" displayName="Automated erythrocyte mean corpuscular hemoglobin concentration measurement (mass/volume)" /> <statusCode code="completed" /> <effectiveTime value="093885592418" /> <value unit="g/dL" xsi:type="PQ " value="32" /> <referenceRange> <observationRange> <text>32-36</text> </observationRange> </ referenceRange> </observation> </component> <component> <observation moodCode="EVN" classCode="OBS"> <templateId root= "2.16.840.1.318268.10.20.22.4.2" /> <id nullFlavor="NA" /> < code codeSystem="local" code="788-0" displayName="Automated erythrocyte distribution width ratio" /> <statusCode code="completed" /> < effectiveTime value="190343676283" /> <value unit="%" xsi:type="PQ " value="16.0" /> <interpretationCode codeSystem="local" code="" /> <referenceRange> <observationRange> <text>10.0- 14.5</text> </observationRange> </referenceRange> </ observation> </component> <component> <observation moodCode= "EVN" classCode="OBS"> <templateId root="2.16.840.1.872386.10..22.4.2 " /> <id nullFlavor="NA" /> <code codeSystem="local" code="777 -3" displayName="Automated blood platelet count (count/volume)" /> < statusCode code="completed" /> <effectiveTime value="941445201221" /> <value unit="10*3/uL" xsi:type="PQ" value="238" /> < referenceRange> <observationRange> <text>130-400</text> </observationRange> </referenceRange> </observation > </component> <component> <observation moodCode="EVN" classCode="OBS"> <templateId root="216.840.1.298283.10.22.4.2" /> <id nullFlavor="NA" /> <code codeSystem="local" code="81940-3 " displayName="Automated blood platelet mean volume measurement" /> < statusCode code="completed" /> <effectiveTime value="461996922033" /> <value unit="[foz_us]" xsi:type="PQ" value="10.1" /> < referenceRange> <observationRange> <text>7.4-10.4</text > </observationRange> </referenceRange> </observation > </component> <component> <observation moodCode="EVN" classCode="OBS"> <templateId root="2.16.840.1.799991.10..22.4.2" /> <id nullFlavor="NA" /> <code codeSystem="local" code="770-8" displayName="Automated blood neutrophils/100 leukocytes" /> < statusCode code="completed" /> <effectiveTime value="779359949727" /> <value unit="%" xsi:type="PQ" value="64" /> < referenceRange> <observationRange> <text>42-75</text> </observationRange> </referenceRange> </observation> </component> <component> <observation moodCode="EVN" classCode= "OBS"> <templateId root="2.16.840.1.735446.10.20.22.4.2" /> < id nullFlavor="NA" /> <code codeSystem="local" code="736-9" displayName ="Automated blood lymphocytes/100 leukocytes" /> <statusCode code= "completed" /> <effectiveTime value="873359247779" /> <value unit="%" xsi:type="PQ" value="22" /> <referenceRange> < observationRange> <text>12-44</text> </observationRange > </referenceRange> </observation> </component> < component> <observation moodCode="EVN" classCode="OBS"> < templateId root="2.16.840.1.246909.10.20.22.4.2" /> <id nullFlavor="NA " /> <code codeSystem="local" code="54148-7" displayName="Blood monocytes/100 leukocytes" /> <statusCode code="completed" /> < effectiveTime value="275026768194" /> <value unit="%" xsi:type="PQ " value="12" /> <referenceRange> <observationRange> <text>0-12</text> </observationRange> </referenceRange > </observation> </component> <component> <observation moodCode="EVN" classCode="OBS"> <templateId root= "2.16.840.1.064813.10.20.22.4.2" /> <id nullFlavor="NA" /> < code codeSystem="local" code="713-8" displayName="Automated blood eosinophils/ 100 leukocytes" /> <statusCode code="completed" /> < effectiveTime value="288248787820" /> <value unit="%" xsi:type="PQ " value="2" /> <referenceRange> <observationRange> <text>0-10</text> </observationRange> </referenceRange > </observation> </component> <component> <observation moodCode="EVN" classCode="OBS"> <templateId root= "2.16.840.1.802300.10.20.22.4.2" /> <id nullFlavor="NA" /> < code codeSystem="local" code="706-2" displayName="Automated blood basophils/100 leukocytes" /> <statusCode code="completed" /> <effectiveTime value="413978264005" /> <value unit="%" xsi:type="PQ" value="1" /> <referenceRange> <observationRange> <text>0-10 </text> </observationRange> </referenceRange> </ observation> </component> <component> <observation moodCode= "EVN" classCode="OBS"> <templateId root="2.16.840.1.813009.10.20.22.4.2 " /> <id nullFlavor="NA" /> <code codeSystem="local" code="751 -8" displayName="Blood neutrophils automated count (number/volume)" /> <statusCode code="completed" /> <effectiveTime value="114028430328" /> <value unit="10*3" xsi:type="PQ" value="5.1" /> < referenceRange> <observationRange> <text>1.8-7.8</text> </observationRange> </referenceRange> </observation > </component> <component> <observation moodCode="EVN" classCode="OBS"> <templateId root="16.840.1.641520.10.20.22.4.2" /> <id nullFlavor="NA" /> <code codeSystem="local" code="731-0" displayName="Blood lymphocytes automated count (number/volume)" /> < statusCode code="completed" /> <effectiveTime value="165376315281" /> <value unit="10*3" xsi:type="PQ" value="1.8" /> < referenceRange> <observationRange> <text>1.0-4.0</text> </observationRange> </referenceRange> </observation > </component> <component> <observation moodCode="EVN" classCode="OBS"> <templateId root="16.840.1.977721.10.22.4.2" /> <id nullFlavor="NA" /> <code codeSystem="local" code="742-7" displayName="Blood monocytes automated count (number/volume)" /> < statusCode code="completed" /> <effectiveTime value="955668248585" /> <value unit="10*3" xsi:type="PQ" value="0.9" /> < referenceRange> <observationRange> <text>0.0-1.0</text> </observationRange> </referenceRange> </observation > </component> <component> <observation moodCode="EVN" classCode="OBS"> <templateId root="16.840.1.923593.10.20.22.4.2" /> <id nullFlavor="NA" /> <code codeSystem="local" code="711-2" displayName="Automated eosinophil count" /> <statusCode code="completed " /> <effectiveTime value="619816425176" /> <value unit="10*3/ uL" xsi:type="PQ" value="0.2" /> <referenceRange> < observationRange> <text>0.0-0.3</text> </ observationRange> </referenceRange> </observation> </ component> <component> <observation moodCode="EVN" classCode="OBS"> <templateId root="16.840.1.745087.10.2022.4.2" /> <id nullFlavor="NA" /> <code codeSystem="local" code="704-7" displayName= "Automated blood basophil count (count/volume)" /> <statusCode code= "completed" /> <effectiveTime value="075561852858" /> <value unit="10*3/uL" xsi:type="PQ" value="0.0" /> <referenceRange> <observationRange> <text>0.0-0.1</text> </ observationRange> </referenceRange> </observation> </ component> </organizer> </entry> <entry> <organizer moodCode="EVN" classCode="BATTERY"> <templateId root="03.28.840.1.186591.10.22.4.1" /> <id nullFlavor="NA" /> <code codeSystem="local" code="55951-7" displayName="Whole blood basic metabolic panel" /> <statusCode code= "completed" /> <component> <observation moodCode="EVN" classCode= "OBS"> <templateId root="03.28.840.1.195950.10.20.22.4.2" /> < id nullFlavor="NA" /> <code codeSystem="local" code="2951-2" displayName="Serum or plasma sodium measurement (moles/volume)" /> < statusCode code="completed" /> <effectiveTime value="645377293201" /> <value unit="mmol/L" xsi:type="PQ" value="141" /> < referenceRange> <observationRange> <text>135-145</text> </observationRange> </referenceRange> </observation > </component> <component> <observation moodCode="EVN" classCode="OBS"> <templateId root="2.16.840.1.482887.10.20.22.4.2" /> <id nullFlavor="NA" /> <code codeSystem="local" code="282-" displayName="Serum or plasma potassium measurement (moles/volume)" /> < statusCode code="completed" /> <effectiveTime value="649799460567" /> <value unit="mmol/L" xsi:type="PQ" value="4.6" /> < referenceRange> <observationRange> <text>3.6-5.0</text> </observationRange> </referenceRange> </observation > </component> <component> <observation moodCode="EVN" classCode="OBS"> <templateId root="16.840.1.125544.10.20.22.4.2" /> <id nullFlavor="NA" /> <code codeSystem="local" code="" displayName="Serum or plasma chloride measurement (moles/volume)" /> < statusCode code="completed" /> <effectiveTime value="053771333977" /> <value unit="mmol/L" xsi:type="PQ" value="104" /> < referenceRange> <observationRange> <text>98-107</text> </observationRange> </referenceRange> </observation> </component> <component> <observation moodCode="EVN" classCode ="OBS"> <templateId root="216.840.1.124707.10.20.22.4.2" /> < id nullFlavor="NA" /> <code codeSystem="local" code="2027-10" displayName="Carbon dioxide" /> <statusCode code="completed" /> <effectiveTime value="956941847566" /> <value unit="mmol/L" xsi:type ="PQ" value="24" /> <referenceRange> <observationRange> <text>21-32</text> </observationRange> </ referenceRange> </observation> </component> <component> <observation moodCode="EVN" classCode="OBS"> <templateId root= "2.16.840.1.016625.10.20.22.4.2" /> <id nullFlavor="NA" /> < code codeSystem="local" code="10106-3" displayName="Serum or plasma anion gap determination (moles/volume)" /> <statusCode code="completed" /> <effectiveTime value="536476866795" /> <value unit="mmol/L" xsi: type="PQ" value="13" /> <referenceRange> <observationRange> <text>5-14</text> </observationRange> </ referenceRange> </observation> </component> <component> <observation moodCode="EVN" classCode="OBS"> <templateId root= "2.16.840.1.518122.10.20.22.4.2" /> <id nullFlavor="NA" /> < code codeSystem="local" code="3094-0" displayName="Serum or plasma urea nitrogen measurement (mass/volume)" /> <statusCode code="completed" /> <effectiveTime value="674479663864" /> <value unit="mg/dL" xsi:type="PQ" value="18" /> <referenceRange> < observationRange> <text>7-18</text> </observationRange> </referenceRange> </observation> </component> < component> <observation moodCode="EVN" classCode="OBS"> < templateId root="2.16.840.1.311316.10.20.22.4.2" /> <id nullFlavor="NA " /> <code codeSystem="local" code="2160-0" displayName="Serum or plasma creatinine measurement (mass/volume)" /> <statusCode code= "completed" /> <effectiveTime value="817201900226" /> <value unit="mg/dL" xsi:type="PQ" value="0.75" /> <referenceRange> <observationRange> <text>0.60-1.30</text> </ observationRange> </referenceRange> </observation> </ component> <component> <observation moodCode="EVN" classCode="OBS"> <templateId root="216.840.1.367548.10..22.4.2" /> <id nullFlavor="NA" /> <code codeSystem="local" code="3097-3" displayName= "Serum or plasma urea nitrogen/creatinine mass ratio" /> <statusCode code="completed" /> <effectiveTime value="742154588010" /> < value unit="" xsi:type="PQ" value="24" /> <referenceRange> < observationRange> <text>NRG</text> </observationRange> </referenceRange> </observation> </component> < component> <observation moodCode="EVN" classCode="OBS"> < templateId root="216.840.1.296515.10.20.22.4.2" /> <id nullFlavor="NA " /> <code codeSystem="local" code="12647-0" displayName="Serum or plasma creatinine measurement with calculation of estimated glomerular filtration rate" /> <statusCode code="completed" /> < effectiveTime value="308836999429" /> <value unit="" xsi:type="PQ" value=">" /> <referenceRange> <observationRange> <text>NRG</text> </observationRange> </referenceRange > </observation> </component> <component> <observation moodCode="EVN" classCode="OBS"> <templateId root= "216.840.1.773095.10.20.22.4.2" /> <id nullFlavor="NA" /> < code codeSystem="local" code="2345-7" displayName="Serum or plasma glucose measurement (mass/volume)" /> <statusCode code="completed" /> <effectiveTime value="292450001044" /> <value unit="mg/dL" xsi:type="PQ " value="100" /> <referenceRange> <observationRange> <text>70-105</text> </observationRange> </ referenceRange> </observation> </component> <component> <observation moodCode="EVN" classCode="OBS"> <templateId root= "216.840.1.544660.10.20.22.4.2" /> <id nullFlavor="NA" /> < code codeSystem="local" code="00261-5" displayName="Serum or plasma calcium measurement (mass/volume)" /> <statusCode code="completed" /> <effectiveTime value="867765478715" /> <value unit="mg/dL" xsi:type="PQ " value="9.2" /> <referenceRange> <observationRange> <text>8.5-10.1</text> </observationRange> </ referenceRange> </observation> </component> </organizer> </entry > <entry> <organizer moodCode="EVN" classCode="BATTERY"> <templateId root="2.16.840.1.895046.10.20.22.4.1" /> <id nullFlavor="NA" /> <code codeSystem="local" code="12066-0" displayName="Serum or plasma lithium measurement (moles/volume)" /> <statusCode code="completed" /> < component> <observation moodCode="EVN" classCode="OBS"> < templateId root="216.840.1.765870.10..22.4.2" /> <id nullFlavor="NA " /> <code codeSystem="local" code="61915-7" displayName="BNP level" / > <statusCode code="completed" /> <effectiveTime value= "513903258301" /> <value unit="pg/mL" xsi:type="PQ" value="24.0" /> <referenceRange> <observationRange> <text>< 100.0</text> </observationRange> </referenceRange> </ observation> </component> </organizer> </entry> <entry> <organizer moodCode="EVN" classCode="BATTERY"> <templateId root= "216.840.1.236264.10..22.4.1" /> <id nullFlavor="NA" /> <code codeSystem="local" code="ORD3" displayName="Comprehensive Metabolic Panel" /> <statusCode code="completed" /> <component> <observation moodCode="EVN" classCode="OBS"> <templateId root= "16.840.1.401813.10..22.4.2" /> <id nullFlavor="NA" /> < code codeSystem="local" code="Res44" displayName="Albumin" /> < statusCode code="completed" /> <effectiveTime value="952724865276" /> <value unit="g/dL" xsi:type="PQ" value="3.8" /> < referenceRange> <observationRange> <text>3.6-5.1</text> </observationRange> </referenceRange> </observation > </component> <component> <observation moodCode="EVN" classCode="OBS"> <templateId root="2.16.840.1.880555.10..22.4.2" /> <id nullFlavor="NA" /> <code codeSystem="local" code="Res45" displayName="ALP" /> <statusCode code="completed" /> < effectiveTime value="105747143657" /> <value unit="U/L" xsi:type="PQ" value="135" /> <interpretationCode codeSystem="local" code="H" /> <referenceRange> <observationRange> <text>35-130</ text> </observationRange> </referenceRange> </ observation> </component> <component> <observation moodCode= "EVN" classCode="OBS"> <templateId root="216.840.1.902941.11.29.21.4.2 " /> <id nullFlavor="NA" /> <code codeSystem="local" code= "Res46" displayName="ALT" /> <statusCode code="completed" /> < effectiveTime value="818183882798" /> <value unit="U/L" xsi:type="PQ" value="17" /> <referenceRange> <observationRange> <text>6-45</text> </observationRange> </referenceRange> </observation> </component> <component> <observation moodCode="EVN" classCode="OBS"> <templateId root= "216.840.1.641738.10..22.4.2" /> <id nullFlavor="NA" /> < code codeSystem="local" code="Res61" displayName="Anion Gap" /> < statusCode code="completed" /> <effectiveTime value="375375444774" /> <value unit="" xsi:type="PQ" value="16" /> < interpretationCode codeSystem="local" code="H" /> <referenceRange> <observationRange> <text>6-14</text> </ observationRange> </referenceRange> </observation> </ component> <component> <observation moodCode="EVN" classCode="OBS"> <templateId root="03.28.840.1.949599.10...4.2" /> <id nullFlavor="NA" /> <code codeSystem="local" code="Res48" displayName= "AST" /> <statusCode code="completed" /> <effectiveTime value= "276435091091" /> <value unit="U/L" xsi:type="PQ" value="19" /> <referenceRange> <observationRange> <text>2-40</text > </observationRange> </referenceRange> </observation > </component> <component> <observation moodCode="EVN" classCode="OBS"> <templateId root="840.1.590585...4.2" /> <id nullFlavor="NA" /> <code codeSystem="local" code="Res26" displayName="BUN" /> <statusCode code="completed" /> < effectiveTime value="172208215885" /> <value unit="mg/dL" xsi:type="PQ " value="20" /> <referenceRange> <observationRange> <text>5-25</text> </observationRange> </referenceRange > </observation> </component> <component> <observation moodCode="EVN" classCode="OBS"> <templateId root= "03.28.840.1.991709.10.20.22.4.2" /> <id nullFlavor="NA" /> < code codeSystem="local" code="Res5" displayName="Calcium" /> < statusCode code="completed" /> <effectiveTime value="666945211683" /> <value unit="mg/dL" xsi:type="PQ" value="9.3" /> < referenceRange> <observationRange> <text>8.3-10.4</text > </observationRange> </referenceRange> </observation > </component> <component> <observation moodCode="EVN" classCode="OBS"> <templateId root="03.28.840.1.148905.11.29.21.4.2" /> <id nullFlavor="NA" /> <code codeSystem="local" code="Res21" displayName="Chloride" /> <statusCode code="completed" /> < effectiveTime value="206248009832" /> <value unit="mmol/L" xsi:type="PQ " value="103" /> <referenceRange> <observationRange> <text>95-114</text> </observationRange> </ referenceRange> </observation> </component> <component> <observation moodCode="EVN" classCode="OBS"> <templateId root= "03.28.840.1.182244.11.29.21.4.2" /> <id nullFlavor="NA" /> < code codeSystem="local" code="Res49" displayName="CO2" /> <statusCode code="completed" /> <effectiveTime value="259222441401" /> < value unit="mEq/L" xsi:type="PQ" value="27" /> <referenceRange> <observationRange> <text>22-33</text> </ observationRange> </referenceRange> </observation> </ component> <component> <observation moodCode="EVN" classCode="OBS"> <templateId root="03.28.840.1.254647.1022.4.2" /> <id nullFlavor="NA" /> <code codeSystem="local" code="Brd432" displayName= "Creat" /> <statusCode code="completed" /> <effectiveTime value="168309547163" /> <value unit="mg/dL" xsi:type="PQ" value="0.76" /> <referenceRange> <observationRange> <text> 0.50-1.50</text> </observationRange> </referenceRange> </observation> </component> <component> <observation moodCode="EVN" classCode="OBS"> <templateId root= "2.16.840.1.402979.10...4.2" /> <id nullFlavor="NA" /> < code codeSystem="local" code="Qsk895" displayName="eGFR" /> < statusCode code="completed" /> <effectiveTime value="628482679862" /> <value unit="mL/min/1.73m2" xsi:type="PQ" value="75" /> < referenceRange> <observationRange> <text>>59</text> </observationRange> </referenceRange> </observation> </component> <component> <observation moodCode="EVN" classCode ="OBS"> <templateId root="2.16.840.1.932995.10..22.4.2" /> < id nullFlavor="NA" /> <code codeSystem="local" code="Res7" displayName= "Globulin" /> <statusCode code="completed" /> <effectiveTime value="970502849130" /> <value unit="g/dL" xsi:type="PQ" value="3.5" / > <referenceRange> <observationRange> <text>2.3 -3.5</text> </observationRange> </referenceRange> </ observation> </component> <component> <observation moodCode= "EVN" classCode="OBS"> <templateId root="216.840.1.211620.10..22.4.2 " /> <id nullFlavor="NA" /> <code codeSystem="local" code= "Res60" displayName="Glucose" /> <statusCode code="completed" /> <effectiveTime value="341195702819" /> <value unit="mg/dL" xsi:type ="PQ" value="80" /> <referenceRange> <observationRange> <text>70-110</text> </observationRange> </ referenceRange> </observation> </component> <component> <observation moodCode="EVN" classCode="OBS"> <templateId root= "16.840.1.838182.10.22.4.2" /> <id nullFlavor="NA" /> < code codeSystem="local" code="Res52" displayName="Osmo" /> <statusCode code="completed" /> <effectiveTime value="282703112121" /> < value unit="" xsi:type="PQ" value="295" /> <referenceRange> <observationRange> <text>280-295</text> </ observationRange> </referenceRange> </observation> </ component> <component> <observation moodCode="EVN" classCode="OBS"> <templateId root="16.840.1.185351.10..22.4.2" /> <id nullFlavor="NA" /> <code codeSystem="local" code="Res20" displayName= "Potassium" /> <statusCode code="completed" /> <effectiveTime value="781261553880" /> <value unit="mmol/L" xsi:type="PQ" value="3.9" /> <referenceRange> <observationRange> <text> 3.5-5.3</text> </observationRange> </referenceRange> </observation> </component> <component> <observation moodCode= "EVN" classCode="OBS"> <templateId root="216.840.1.111572.10..4.2 " /> <id nullFlavor="NA" /> <code codeSystem="local" code= "Res19" displayName="Sodium" /> <statusCode code="completed" /> <effectiveTime value="939901033196" /> <value unit="mmol/L" xsi:type ="PQ" value="142" /> <referenceRange> <observationRange> <text>134-148</text> </observationRange> </ referenceRange> </observation> </component> <component> <observation moodCode="EVN" classCode="OBS"> <templateId root= "216.840.1.316254.11.29.21.4.2" /> <id nullFlavor="NA" /> < code codeSystem="local" code="Res51" displayName="TBil" /> <statusCode code="completed" /> <effectiveTime value="594471144169" /> < value unit="mg/dL" xsi:type="PQ" value="0.3" /> <referenceRange> <observationRange> <text>0.2-1.2</text> </ observationRange> </referenceRange> </observation> </ component> <component> <observation moodCode="EVN" classCode="OBS"> <templateId root="216.840.1.295367.10.22.4.2" /> <id nullFlavor="NA" /> <code codeSystem="local" code="Res24" displayName= "TP" /> <statusCode code="completed" /> <effectiveTime value= "128308463008" /> <value unit="g/dL" xsi:type="PQ" value="7.3" /> <referenceRange> <observationRange> <text>6.0-8.3</ text> </observationRange> </referenceRange> </ observation> </component> </organizer> </entry> <entry> <organizer moodCode="EVN" classCode="BATTERY"> <templateId root= "16.840.1.695946.10..22.4.1" /> <id nullFlavor="NA" /> <code codeSystem="local" code="ORD68" displayName="Urinalysis" /> <statusCode code="completed" /> <component> <observation moodCode="EVN" classCode="OBS"> <templateId root="16.840.1.191671.10...4.2" /> <id nullFlavor="NA" /> <code codeSystem="local" code="Dgx5864 " displayName="Icotest" /> <statusCode code="completed" /> < effectiveTime value="787506984280" /> <value unit="" xsi:type="PQ" value="N/A" /> <interpretationCode codeSystem="local" code="A" /> <referenceRange> <observationRange> <text>Negative< /text> </observationRange> </referenceRange> </ observation> </component> <component> <observation moodCode= "EVN" classCode="OBS"> <templateId root="03.28.840.1.151271.10...4.2 " /> <id nullFlavor="NA" /> <code codeSystem="local" code= "Tko983" displayName="Urine Volume" /> <statusCode code="completed" /> <effectiveTime value="501462765525" /> <value unit="" xsi: type="PQ" value="Urine Volume Sufficient (10mL)" /> <referenceRange> <observationRange> <text /> </observationRange > </referenceRange> </observation> </component> < component> <observation moodCode="EVN" classCode="OBS"> < templateId root="216.840.1.303512.1022.4.2" /> <id nullFlavor="NA " /> <code codeSystem="local" code="Pvo997" displayName="Urine Yeast" / > <statusCode code="completed" /> <effectiveTime value= "335046632550" /> <value unit="" xsi:type="PQ" value="No Yeast present " /> <referenceRange> <observationRange> <text /> </observationRange> </referenceRange> </ observation> </component> <component> <observation moodCode= "EVN" classCode="OBS"> <templateId root="216.840.1.097096.11.29.21.4.2 " /> <id nullFlavor="NA" /> <code codeSystem="local" code= "Nvk393" displayName="Urine-Appearance" /> <statusCode code="completed " /> <effectiveTime value="515154380064" /> <value unit="" xsi :type="PQ" value="Clear" /> <referenceRange> < observationRange> <text>Clear</text> </observationRange > </referenceRange> </observation> </component> < component> <observation moodCode="EVN" classCode="OBS"> < templateId root="216.840.1.651578.1022.4.2" /> <id nullFlavor="NA " /> <code codeSystem="local" code="Xuo456" displayName="Urine-Bacteria " /> <statusCode code="completed" /> <effectiveTime value= "450761695044" /> <value unit="" xsi:type="PQ" value="Negative" /> <referenceRange> <observationRange> <text> </text > </observationRange> </referenceRange> </observation > </component> <component> <observation moodCode="EVN" classCode="OBS"> <templateId root="216.840.1.612390.10..4.2" /> <id nullFlavor="NA" /> <code codeSystem="local" code="Qds609" displayName="Urine-Bilirubin" /> <statusCode code="completed" /> <effectiveTime value="021290165692" /> <value unit="" xsi:type="PQ " value="Negative" /> <referenceRange> <observationRange> <text>Negative</text> </observationRange> </ referenceRange> </observation> </component> <component> <observation moodCode="EVN" classCode="OBS"> <templateId root= "03.28.840.1.758886.11.29.21.4.2" /> <id nullFlavor="NA" /> < code codeSystem="local" code="Dqn740" displayName="Urine-Blood" /> < statusCode code="completed" /> <effectiveTime value="783175770614" /> <value unit="" xsi:type="PQ" value="Negative" /> < referenceRange> <observationRange> <text>Negative</text > </observationRange> </referenceRange> </observation > </component> <component> <observation moodCode="EVN" classCode="OBS"> <templateId root="03.28.840.1.492914.11.29.21.4.2" /> <id nullFlavor="NA" /> <code codeSystem="local" code="Qwi747" displayName="Urine-Color" /> <statusCode code="completed" /> < effectiveTime value="279908797084" /> <value unit="" xsi:type="PQ" value="Yellow" /> <referenceRange> <observationRange> <text>Colorless-Lt. Yellow</text> </observationRange> </referenceRange> </observation> </component> <component> <observation moodCode="EVN" classCode="OBS"> <templateId root= "216.840.1.221465.10.22.4.2" /> <id nullFlavor="NA" /> < code codeSystem="local" code="Gup666" displayName="Urine-Glucose" /> < statusCode code="completed" /> <effectiveTime value="535269196577" /> <value unit="" xsi:type="PQ" value="Negative" /> < referenceRange> <observationRange> <text>Negative</text > </observationRange> </referenceRange> </observation > </component> <component> <observation moodCode="EVN" classCode="OBS"> <templateId root="840.1.344107.11.29.21.4.2" /> <id nullFlavor="NA" /> <code codeSystem="local" code="Zln502" displayName="Urine-Ketones" /> <statusCode code="completed" /> <effectiveTime value="615468941721" /> <value unit="" xsi:type="PQ" value="Negative" /> <referenceRange> <observationRange> <text>Negative</text> </observationRange> </ referenceRange> </observation> </component> <component> <observation moodCode="EVN" classCode="OBS"> <templateId root= "03.28.840.1.638754.102022.4.2" /> <id nullFlavor="NA" /> < code codeSystem="local" code="Obq078" displayName="Urine-Leukocytes" /> <statusCode code="completed" /> <effectiveTime value="107428247231" / > <value unit="" xsi:type="PQ" value="Negative" /> < referenceRange> <observationRange> <text>Negative</text > </observationRange> </referenceRange> </observation > </component> <component> <observation moodCode="EVN" classCode="OBS"> <templateId root="2.16.840.1.560355.10..22.4.2" /> <id nullFlavor="NA" /> <code codeSystem="local" code="Frm617" displayName="Urine-Nitrite" /> <statusCode code="completed" /> <effectiveTime value="518822206776" /> <value unit="" xsi:type="PQ" value="Negative" /> <referenceRange> <observationRange> <text>Negative</text> </observationRange> </ referenceRange> </observation> </component> <component> <observation moodCode="EVN" classCode="OBS"> <templateId root= "2.16.840.1.435744.10...4.2" /> <id nullFlavor="NA" /> < code codeSystem="local" code="Imf497" displayName="Urine-Other" /> < statusCode code="completed" /> <effectiveTime value="698746601362" /> <value unit="" xsi:type="PQ" value=" Urine Saved if Culture Needed ( 48hrs from time of collection)" /> <interpretationCode codeSystem= "local" code="A" /> <referenceRange> <observationRange> <text> </text> </observationRange> </ referenceRange> </observation> </component> <component> <observation moodCode="EVN" classCode="OBS"> <templateId root= "2.16.840.1.345976.10..4.2" /> <id nullFlavor="NA" /> < code codeSystem="local" code="Hmf056" displayName="Urine-pH" /> < statusCode code="completed" /> <effectiveTime value="080546063100" /> <value unit="" xsi:type="PQ" value="7.0" /> <referenceRange> <observationRange> <text>5-8.5</text> </ observationRange> </referenceRange> </observation> </ component> <component> <observation moodCode="EVN" classCode="OBS"> <templateId root="2.16.840.1.212400.10.4.2" /> <id nullFlavor="NA" /> <code codeSystem="local" code="Mkf017" displayName= "Urine-Protein" /> <statusCode code="completed" /> < effectiveTime value="776957012234" /> <value unit="" xsi:type="PQ" value="Negative" /> <referenceRange> <observationRange> <text>Negative</text> </observationRange> </ referenceRange> </observation> </component> <component> <observation moodCode="EVN" classCode="OBS"> <templateId root= "2.16.840.1.697469.10..4.2" /> <id nullFlavor="NA" /> < code codeSystem="local" code="Dxm096" displayName="Urine-RBC" /> < statusCode code="completed" /> <effectiveTime value="552808349058" /> <value unit="" xsi:type="PQ" value="Rare/HPF" /> < interpretationCode codeSystem="local" code="A" /> <referenceRange> <observationRange> <text> </text> </ observationRange> </referenceRange> </observation> </ component> <component> <observation moodCode="EVN" classCode="OBS"> <templateId root="16.840.1.422676.10.22.4.2" /> <id nullFlavor="NA" /> <code codeSystem="local" code="Uxy177" displayName= "Urine-Specific [place]" /> <statusCode code="completed" /> < effectiveTime value="421129303107" /> <value unit="" xsi:type="PQ" value="1.010" /> <referenceRange> <observationRange> <text>1.000-1.030</text> </observationRange> </ referenceRange> </observation> </component> <component> <observation moodCode="EVN" classCode="OBS"> <templateId root= "03.28.840.1.444935.10.4.2" /> <id nullFlavor="NA" /> < code codeSystem="local" code="Ciy026" displayName="Urine-WBC" /> < statusCode code="completed" /> <effectiveTime value="722329446494" /> <value unit="" xsi:type="PQ" value="Negative" /> < referenceRange> <observationRange> <text> </text> </observationRange> </referenceRange> </observation> </component> <component> <observation moodCode="EVN" classCode="OBS "> <templateId root="03.28.840.1.047707.1022.4.2" /> <id nullFlavor="NA" /> <code codeSystem="local" code="Oik392" displayName= "Urobilinogen" /> <statusCode code="completed" /> < effectiveTime value="790187880028" /> <value unit="" xsi:type="PQ" value="0.2 E.U./dL" /> <interpretationCode codeSystem="local" code="A" /> <referenceRange> <observationRange> <text> 0.2-1.0</text> </observationRange> </referenceRange> </observation> </component> </organizer> </entry> <entry> < organizer moodCode="EVN" classCode="BATTERY"> <templateId root= "2.16.840.1.460629.10..22.4.1" /> <id nullFlavor="NA" /> <code codeSystem="local" code="AZX9083" displayName="Urine Culture" /> < statusCode code="completed" /> <component> <observation moodCode= "EVN" classCode="OBS"> <templateId root="2.16.840.1.178390.10..22.4.2 " /> <id nullFlavor="NA" /> <code codeSystem="local" code= "Wuc8595" displayName="PRELIM CULTURE RESULTS" /> <statusCode code= "completed" /> <effectiveTime value="445022765169" /> <value unit="" xsi:type="PQ" value="No Growth 24 hours" /> <referenceRange> <observationRange> <text /> </observationRange > </referenceRange> </observation> </component> < component> <observation moodCode="EVN" classCode="OBS"> < templateId root="2.16.840.1.081587.10..22.4.2" /> <id nullFlavor="NA " /> <code codeSystem="local" code="Fes3832" displayName="FINAL CULTURE RESULTS" /> <statusCode code="completed" /> < effectiveTime value="517622898581" /> <value unit="" xsi:type="PQ" value="No Growth 48 hours" /> <referenceRange> < observationRange> <text /> </observationRange> </referenceRange> </observation> </component> <component> <observation moodCode="EVN" classCode="OBS"> <templateId root= "16.840.1.180410.11.29.21.4.2" /> <id nullFlavor="NA" /> < code codeSystem="local" code="Aaj4795" displayName="MEDIA PLATED" /> < statusCode code="completed" /> <effectiveTime value="399798494599" /> <value unit="" xsi:type="PQ" value="Setup at 1145 on 01/15/2018" /> <referenceRange> <observationRange> <text /> </observationRange> </referenceRange> </observation> </component> <component> <observation moodCode="EVN" classCode= "OBS"> <templateId root="03.28.840.1.535591.11.29.21.4.2" /> < id nullFlavor="NA" /> <code codeSystem="local" code="Uoz5424" displayName="CULTURE SOURCE" /> <statusCode code="completed" /> <effectiveTime value="613482058026" /> <value unit="" xsi:type="PQ" value="cath indwelling" /> <referenceRange> < observationRange> <text /> </observationRange> </referenceRange> </observation> </component> </organizer> </ entry> <entry> <organizer moodCode="EVN" classCode="BATTERY"> < templateId root="03.28.840.1.794325.11.29.21.4.1" /> <id nullFlavor="NA" /> <code codeSystem="local" code="METABC" displayName="METABOLIC PANEL, COMPREHN" /> <statusCode code="completed" /> <component> < observation moodCode="EVN" classCode="OBS"> <templateId root= "03.28.840.1.926649.11.29.21.4.2" /> <id nullFlavor="NA" /> < code codeSystem="local" code="K" displayName="POTASSIUM" /> < statusCode code="completed" /> <effectiveTime value="476195740195" /> <value unit="mmol/L" xsi:type="PQ" value="4.1" /> < referenceRange> <observationRange> <text>3.5-5.3</text> </observationRange> </referenceRange> </observation > </component> <component> <observation moodCode="EVN" classCode="OBS"> <templateId root="2.16.840.1.805165.10...4.2" /> <id nullFlavor="NA" /> <code codeSystem="local" code="eGFR" displayName="EST GFR (MDRD)" /> <statusCode code="completed" /> <effectiveTime value="590826908480" /> <value unit="mL/min" xsi:type ="PQ" value="> 60" /> <referenceRange> <observationRange > <text>> 59</text> </observationRange> </ referenceRange> </observation> </component> <component> <observation moodCode="EVN" classCode="OBS"> <templateId root= "2.16.840.1.419859.10..22.4.2" /> <id nullFlavor="NA" /> < code codeSystem="local" code="GAP" displayName="ANION GAP" /> < statusCode code="completed" /> <effectiveTime value="058494600026" /> <value unit="mmol/L" xsi:type="PQ" value="7" /> < referenceRange> <observationRange> <text>5-15</text> </observationRange> </referenceRange> </observation> </component> <component> <observation moodCode="EVN" classCode= "OBS"> <templateId root="16.840.1.728901.10.20.22.4.2" /> < id nullFlavor="NA" /> <code codeSystem="local" code="eCrCl" displayName ="EST CrCl (CG)" /> <statusCode code="completed" /> < effectiveTime value="667286423816" /> <value unit="mL/min" xsi:type="PQ " value="> 60" /> <referenceRange> <observationRange> <text>> 59</text> </observationRange> </ referenceRange> </observation> </component> <component> <observation moodCode="EVN" classCode="OBS"> <templateId root= "03.28.840.1.839572.10.22.4.2" /> <id nullFlavor="NA" /> < code codeSystem="local" code="GLU" displayName="GLUCOSE" /> < statusCode code="completed" /> <effectiveTime value="277041507718" /> <value unit="mg/dL" xsi:type="PQ" value="97" /> < referenceRange> <observationRange> <text>70-99</text> </observationRange> </referenceRange> </observation> </component> <component> <observation moodCode="EVN" classCode= "OBS"> <templateId root="03.28.840.1.182778.10.20.22.4.2" /> < id nullFlavor="NA" /> <code codeSystem="local" code="CA" displayName= "CALCIUM" /> <statusCode code="completed" /> <effectiveTime value="560972280652" /> <value unit="mg/dL" xsi:type="PQ" value="8.6" / > <referenceRange> <observationRange> <text>8.5 -10.1</text> </observationRange> </referenceRange> </ observation> </component> <component> <observation moodCode= "EVN" classCode="OBS"> <templateId root="216.840.1.323617.10..22.4.2 " /> <id nullFlavor="NA" /> <code codeSystem="local" code="BUN " displayName="BLOOD UREA NITROGEN" /> <statusCode code="completed" /> <effectiveTime value="966472989409" /> <value unit="mg/dL" xsi:type="PQ" value="18" /> <referenceRange> < observationRange> <text>7-20</text> </observationRange> </referenceRange> </observation> </component> < component> <observation moodCode="EVN" classCode="OBS"> < templateId root="03.28.840.1.328314.11.29.21.4.2" /> <id nullFlavor="NA " /> <code codeSystem="local" code="CREAT" displayName="CREATININE" /> <statusCode code="completed" /> <effectiveTime value= "148504130606" /> <value unit="mg/dL" xsi:type="PQ" value="0.6" /> <referenceRange> <observationRange> <text>0.6-1.0< /text> </observationRange> </referenceRange> </ observation> </component> <component> <observation moodCode= "EVN" classCode="OBS"> <templateId root="16.840.1.154439....4.2 " /> <id nullFlavor="NA" /> <code codeSystem="local" code="NA " displayName="SODIUM" /> <statusCode code="completed" /> < effectiveTime value="730244289651" /> <value unit="mmol/L" xsi:type="PQ " value="141" /> <referenceRange> <observationRange> <text>135-148</text> </observationRange> </ referenceRange> </observation> </component> <component> <observation moodCode="EVN" classCode="OBS"> <templateId root= "03.28.840.1.497665.10.20.22.4.2" /> <id nullFlavor="NA" /> < code codeSystem="local" code="CL" displayName="CHLORIDE" /> < statusCode code="completed" /> <effectiveTime value="339872400008" /> <value unit="mmol/L" xsi:type="PQ" value="103" /> < referenceRange> <observationRange> <text>98-110</text> </observationRange> </referenceRange> </observation> </component> <component> <observation moodCode="EVN" classCode ="OBS"> <templateId root="03.28.840.1.109831.10.22.4.2" /> < id nullFlavor="NA" /> <code codeSystem="local" code="AST" displayName= "AST/SGOT" /> <statusCode code="completed" /> <effectiveTime value="663913741952" /> <value unit="Units/L" xsi:type="PQ" value="16" /> <referenceRange> <observationRange> <text>10 -37</text> </observationRange> </referenceRange> </ observation> </component> <component> <observation moodCode= "EVN" classCode="OBS"> <templateId root="03.28.840.1.417640.10.20.22.4.2 " /> <id nullFlavor="NA" /> <code codeSystem="local" code="ALT " displayName="ALT/SGPT" /> <statusCode code="completed" /> < effectiveTime value="895064245039" /> <value unit="Units/L" xsi:type= "PQ" value="21" /> <referenceRange> <observationRange> <text>< 66</text> </observationRange> </ referenceRange> </observation> </component> <component> <observation moodCode="EVN" classCode="OBS"> <templateId root= "03.28.840.1.092219.1022.4.2" /> <id nullFlavor="NA" /> < code codeSystem="local" code="CO2" displayName="CARBON DIOXIDE" /> < statusCode code="completed" /> <effectiveTime value="966485882690" /> <value unit="mmol/L" xsi:type="PQ" value="31" /> < referenceRange> <observationRange> <text>21-32</text> </observationRange> </referenceRange> </observation> </component> <component> <observation moodCode="EVN" classCode= "OBS"> <templateId root="840.1.696537.1022.4.2" /> < id nullFlavor="NA" /> <code codeSystem="local" code="TP" displayName= "TOTAL PROTEIN" /> <statusCode code="completed" /> < effectiveTime value="789921921266" /> <value unit="gm/dL" xsi:type="PQ " value="6.9" /> <referenceRange> <observationRange> <text>6.4-8.2</text> </observationRange> </ referenceRange> </observation> </component> <component> <observation moodCode="EVN" classCode="OBS"> <templateId root= "03.28.840.1.042006.102022.4.2" /> <id nullFlavor="NA" /> < code codeSystem="local" code="ALB" displayName="ALBUMIN" /> < statusCode code="completed" /> <effectiveTime value="731824487559" /> <value unit="gm/dL" xsi:type="PQ" value="3.0" /> < interpretationCode codeSystem="local" code="*" /> <referenceRange> <observationRange> <text>3.4-5.0</text> </ observationRange> </referenceRange> </observation> </ component> <component> <observation moodCode="EVN" classCode="OBS"> <templateId root="2.16.840.1.534103.10...4.2" /> <id nullFlavor="NA" /> <code codeSystem="local" code="BILTOT" displayName= "BILI TOTAL" /> <statusCode code="completed" /> < effectiveTime value="914631879855" /> <value unit="mg/dL" xsi:type="PQ " value="0.3" /> <referenceRange> <observationRange> <text>0.0-1.0</text> </observationRange> </ referenceRange> </observation> </component> <component> <observation moodCode="EVN" classCode="OBS"> <templateId root= "2.16.840.1.810722.10...4.2" /> <id nullFlavor="NA" /> < code codeSystem="local" code="ALKP" displayName="ALKALINE PHOSPHATASE TOTAL" /> <statusCode code="completed" /> <effectiveTime value= "" /> <value unit="IU/L" xsi:type="PQ" value="145" /> <interpretationCode codeSystem="local" code="*" /> <referenceRange > <observationRange> <text>45-117</text> </ observationRange> </referenceRange> </observation> </ component> </organizer> </entry> <entry> <organizer moodCode="EVN" classCode="BATTERY"> <templateId root="216.840.1.849133.10.4.1" /> <id nullFlavor="NA" /> <code codeSystem="local" code="PT" displayName= "PROTHROMBIN TIME WITH INR" /> <statusCode code="completed" /> < component> <observation moodCode="EVN" classCode="OBS"> < templateId root="216.840.1.075547....4.2" /> <id nullFlavor="NA " /> <code codeSystem="local" code="INRX" displayName="INTERNATIONAL NORMAL RATIO" /> <statusCode code="completed" /> < effectiveTime value="047043953733" /> <value unit="" xsi:type="PQ" value="2.8" /> <interpretationCode codeSystem="local" code="*" /> <referenceRange> <observationRange> <text>0.9-1.1</ text> </observationRange> </referenceRange> </ observation> </component> <component> <observation moodCode= "EVN" classCode="OBS"> <templateId root="216.840.1.041018.11.29.21.4.2 " /> <id nullFlavor="NA" /> <code codeSystem="local" code= "PTPAT" displayName="PROTHROMBIN TIME" /> <statusCode code="completed" /> <effectiveTime value="453374744345" /> <value unit="sec" xsi:type="PQ" value="32.4" /> <interpretationCode codeSystem="local" code="*" /> <referenceRange> <observationRange> <text>10.0-12.8</text> </observationRange> </ referenceRange> </observation> </component> </organizer> </entry > <entry> <organizer moodCode="EVN" classCode="BATTERY"> <templateId root="2.16.840.1.700644.10..4.1" /> <id nullFlavor="NA" /> <code codeSystem="local" code="CBCD" displayName="CBC W/DIFF" /> <statusCode code ="completed" /> <component> <observation moodCode="EVN" classCode= "OBS"> <templateId root="2.16.840.1.381032.10...4.2" /> < id nullFlavor="NA" /> <code codeSystem="local" code="BA#" displayName= "BASOPHIL #" /> <statusCode code="completed" /> < effectiveTime value="622219488102" /> <value unit="k/cumm" xsi:type="PQ " value="0.0" /> <referenceRange> <observationRange> <text>0.0-0.2</text> </observationRange> </ referenceRange> </observation> </component> <component> <observation moodCode="EVN" classCode="OBS"> <templateId root= "2.16.840.1.826361.10...4.2" /> <id nullFlavor="NA" /> < code codeSystem="local" code="BA%" displayName="BASOPHIL %" /> <statusCode code="completed" /> <effectiveTime value="118737106448" /> <value unit="%" xsi:type="PQ" value="0.5" /> < referenceRange> <observationRange> <text>0-1</text> </observationRange> </referenceRange> </observation> </component> <component> <observation moodCode="EVN" classCode= "OBS"> <templateId root="840.1.070162.10.2022.4.2" /> < id nullFlavor="NA" /> <code codeSystem="local" code="EO#" displayName= "EOSINOPHIL #" /> <statusCode code="completed" /> < effectiveTime value="128265454879" /> <value unit="k/cumm" xsi:type="PQ " value="0.1" /> <referenceRange> <observationRange> <text>0.1-0.5</text> </observationRange> </ referenceRange> </observation> </component> <component> <observation moodCode="EVN" classCode="OBS"> <templateId root= "840.1.880442.10224.2" /> <id nullFlavor="NA" /> < code codeSystem="local" code="EO%" displayName="EOSINOPHIL %" /> <statusCode code="completed" /> <effectiveTime value="362492810756" /> <value unit="%" xsi:type="PQ" value="1.7" /> < interpretationCode codeSystem="local" code="*" /> <referenceRange> <observationRange> <text>2-4</text> </ observationRange> </referenceRange> </observation> </ component> <component> <observation moodCode="EVN" classCode="OBS"> <templateId root="03.28.840.1.358568.10.2022.4.2" /> <id nullFlavor="NA" /> <code codeSystem="local" code="GR#" displayName= "GRANULOCYTE #" /> <statusCode code="completed" /> < effectiveTime value="960550659326" /> <value unit="k/cumm" xsi:type="PQ " value="5.5" /> <referenceRange> <observationRange> <text>2.0-9.0</text> </observationRange> </ referenceRange> </observation> </component> <component> <observation moodCode="EVN" classCode="OBS"> <templateId root= "16.840.1.046812.10.20.22.4.2" /> <id nullFlavor="NA" /> < code codeSystem="local" code="GR%" displayName="GRANULOCYTE %" /> <statusCode code="completed" /> <effectiveTime value="910302869851 " /> <value unit="%" xsi:type="PQ" value="73.5" /> < referenceRange> <observationRange> <text>50-75</text> </observationRange> </referenceRange> </observation> </component> <component> <observation moodCode="EVN" classCode= "OBS"> <templateId root="840.1.525807.10..4.2" /> < id nullFlavor="NA" /> <code codeSystem="local" code="LY#" displayName= "LYMPHOCYTE #" /> <statusCode code="completed" /> < effectiveTime value="106943965852" /> <value unit="k/cumm" xsi:type="PQ " value="1.4" /> <referenceRange> <observationRange> <text>1.0-4.0</text> </observationRange> </ referenceRange> </observation> </component> <component> <observation moodCode="EVN" classCode="OBS"> <templateId root= "03.28.840.1.769911.10.2022.4.2" /> <id nullFlavor="NA" /> < code codeSystem="local" code="LY%" displayName="LYMPHOCYTE %" /> <statusCode code="completed" /> <effectiveTime value="517293868467" /> <value unit="%" xsi:type="PQ" value="18.4" /> < interpretationCode codeSystem="local" code="*" /> <referenceRange> <observationRange> <text>20-30</text> </ observationRange> </referenceRange> </observation> </ component> <component> <observation moodCode="EVN" classCode="OBS"> <templateId root="2.16.840.1.686432.10..4.2" /> <id nullFlavor="NA" /> <code codeSystem="local" code="MCH" displayName= "MEAN CELL HGB" /> <statusCode code="completed" /> < effectiveTime value="287450273450" /> <value unit="pg" xsi:type="PQ" value="28.4" /> <referenceRange> <observationRange> <text>27.0-33.0</text> </observationRange> </ referenceRange> </observation> </component> <component> <observation moodCode="EVN" classCode="OBS"> <templateId root= "216.840.1.614746.10..4.2" /> <id nullFlavor="NA" /> < code codeSystem="local" code="MCHC" displayName="MEAN CELL HGB CONCENTRATION" / > <statusCode code="completed" /> <effectiveTime value= "302317174069" /> <value unit="g/dL" xsi:type="PQ" value="31.5" /> <interpretationCode codeSystem="local" code="*" /> < referenceRange> <observationRange> <text>32.0-37.0</text > </observationRange> </referenceRange> </observation > </component> <component> <observation moodCode="EVN" classCode="OBS"> <templateId root="03.28.840.1.143610.11.29.21.4.2" /> <id nullFlavor="NA" /> <code codeSystem="local" code="MCV" displayName="MEAN CELL VOLUME" /> <statusCode code="completed" /> <effectiveTime value="797779979220" /> <value unit="fl" xsi:type= "PQ" value="90.3" /> <referenceRange> <observationRange> <text>80.0-100.0</text> </observationRange> </ referenceRange> </observation> </component> <component> <observation moodCode="EVN" classCode="OBS"> <templateId root= "03.28.840.1.019146.11.29.21.4.2" /> <id nullFlavor="NA" /> < code codeSystem="local" code="MO#" displayName="MONOCYTE #" /> < statusCode code="completed" /> <effectiveTime value="815588518517" /> <value unit="k/cumm" xsi:type="PQ" value="0.4" /> < referenceRange> <observationRange> <text>0.1-1.0</text> </observationRange> </referenceRange> </observation > </component> <component> <observation moodCode="EVN" classCode="OBS"> <templateId root="03.28.840.1.791989.11.29.21.4.2" /> <id nullFlavor="NA" /> <code codeSystem="local" code="MO% " displayName="MONOCYTE %" /> <statusCode code="completed" /> <effectiveTime value="032484416810" /> <value unit="%" xsi: type="PQ" value="5.5" /> <referenceRange> <observationRange > <text>4-6</text> </observationRange> </ referenceRange> </observation> </component> <component> <observation moodCode="EVN" classCode="OBS"> <templateId root= "2.840.1.928741.10.20.22.4.2" /> <id nullFlavor="NA" /> < code codeSystem="local" code="MPVT" displayName="MEAN PLATELET VOLUME" /> <statusCode code="completed" /> <effectiveTime value="146457032657 " /> <value unit="fl" xsi:type="PQ" value="10.5" /> < referenceRange> <observationRange> <text>8.5-10.9</text > </observationRange> </referenceRange> </observation > </component> <component> <observation moodCode="EVN" classCode="OBS"> <templateId root="03.28.840.1.779559.10...4.2" /> <id nullFlavor="NA" /> <code codeSystem="local" code="RBC" displayName="RED BLOOD CELL" /> <statusCode code="completed" /> <effectiveTime value="883591304842" /> <value unit="m/cumm" xsi:type ="PQ" value="3.59" /> <interpretationCode codeSystem="local" code="*" / > <referenceRange> <observationRange> <text> 4.00-6.00</text> </observationRange> </referenceRange> </observation> </component> <component> <observation moodCode="EVN" classCode="OBS"> <templateId root= "03.28.840.1.265780.10.20.22.4.2" /> <id nullFlavor="NA" /> < code codeSystem="local" code="RDW" displayName="RED CELL DISTRIBUTION WIDTH" /> <statusCode code="completed" /> <effectiveTime value= "800332429441" /> <value unit="%" xsi:type="PQ" value="15.3" /> <referenceRange> <observationRange> <text>11.0- 15.6</text> </observationRange> </referenceRange> </ observation> </component> <component> <observation moodCode= "EVN" classCode="OBS"> <templateId root="216.840.1.896328.10...4.2 " /> <id nullFlavor="NA" /> <code codeSystem="local" code="WBC " displayName="WHITE BLOOD CELL" /> <statusCode code="completed" /> <effectiveTime value="702174623508" /> <value unit="k/cumm" xsi: type="PQ" value="7.5" /> <referenceRange> <observationRange > <text>5.0-10.0</text> </observationRange> </ referenceRange> </observation> </component> <component> <observation moodCode="EVN" classCode="OBS"> <templateId root= "216.840.1.320632.10..22.4.2" /> <id nullFlavor="NA" /> < code codeSystem="local" code="HGBT" displayName="HEMOGLOBIN" /> < statusCode code="completed" /> <effectiveTime value="264429944124" /> <value unit="gm/dL" xsi:type="PQ" value="10.2" /> < interpretationCode codeSystem="local" code="*" /> <referenceRange> <observationRange> <text>12.0-16.0</text> </ observationRange> </referenceRange> </observation> </ component> <component> <observation moodCode="EVN" classCode="OBS"> <templateId root="216.840.1.954637.10.4.2" /> <id nullFlavor="NA" /> <code codeSystem="local" code="HCTT" displayName= "HEMATOCRIT" /> <statusCode code="completed" /> < effectiveTime value="838139705991" /> <value unit="%" xsi:type="PQ " value="32.4" /> <interpretationCode codeSystem="local" code="*" /> <referenceRange> <observationRange> <text>37.0- 47.0</text> </observationRange> </referenceRange> </ observation> </component> <component> <observation moodCode= "EVN" classCode="OBS"> <templateId root="03.28.840.1.163249.11.29.214.2 " /> <id nullFlavor="NA" /> <code codeSystem="local" code= "NRBC%" displayName="NRBC %" /> <statusCode code="completed" / > <effectiveTime value="221228737957" /> <value unit="/100WBC " xsi:type="PQ" value="0.0" /> <referenceRange> < observationRange> <text>0.0-0.0</text> </ observationRange> </referenceRange> </observation> </ component> <component> <observation moodCode="EVN" classCode="OBS"> <templateId root="16.840.1.214747.10.4.2" /> <id nullFlavor="NA" /> <code codeSystem="local" code="PLTT" displayName= "PLATELET COUNT" /> <statusCode code="completed" /> < effectiveTime value="797700929500" /> <value unit="k/cumm" xsi:type="PQ " value="252" /> <referenceRange> <observationRange> <text>150-400</text> </observationRange> </ referenceRange> </observation> </component> <component> <observation moodCode="EVN" classCode="OBS"> <templateId root= "216.840.1.540544.10.4.2" /> <id nullFlavor="NA" /> < code codeSystem="local" code="IG%" displayName="IMMATURE GRANULOCYTE %" /> <statusCode code="completed" /> <effectiveTime value= "834948315993" /> <value unit="%" xsi:type="PQ" value="0.4" /> <referenceRange> <observationRange> <text>0.0-0.6< /text> </observationRange> </referenceRange> </ observation> </component> <component> <observation moodCode= "EVN" classCode="OBS"> <templateId root="216.840.1.682030.11.29.21.4.2 " /> <id nullFlavor="NA" /> <code codeSystem="local" code="IG# " displayName="IMMATURE GRANULOCYTE #" /> <statusCode code="completed" /> <effectiveTime value="289156665106" /> <value unit="k/cumm " xsi:type="PQ" value="0.03" /> <referenceRange> < observationRange> <text>0.00-0.09</text> </ observationRange> </referenceRange> </observation> </ component> </organizer> </entry> <entry> <organizer moodCode="EVN" classCode="BATTERY"> <templateId root="216.840.1.632700.11.29.21.4.1" /> <id nullFlavor="NA" /> <code codeSystem="local" code="MRSAS" displayName="MRSA SURVEILLANCE SCREEN" /> <statusCode code="completed" /> <component> <observation moodCode="EVN" classCode="OBS"> < templateId root="03.28.840.1.941874.11.29.21.4.2" /> <id nullFlavor="NA " /> <code codeSystem="local" code="MB" displayName="Microbiology" /> <statusCode code="completed" /> <effectiveTime value= "100640708725" /> <value xsi:type="ST" value="<pre><b>MRSA SURVEILLANCE SCREEN</b> See BelowMRSA SURVEILLANCE SCREEN(F) Papo Date/Time: 01/15/2018 18:48 Dina Date/Time: 01/17/2018 07: 26SOURCE: ANTERIOR NARESSPEC DESC: [facility] [place] [address]</pre>" /> <referenceRange> <observationRange> <text /> </observationRange> </referenceRange> </observation> </ component> </organizer> </entry> <entry> <organizer moodCode="EVN" classCode="BATTERY"> <templateId root="03.28.840.1.707203.11.29.21.4.1" /> <id nullFlavor="NA" /> <code codeSystem="local" code="UA" displayName= "URINALYSIS, ROUTINE" /> <statusCode code="completed" /> <component> <observation moodCode="EVN" classCode="OBS"> <templateId root= "216.840.1.757794.11.29.21.4.2" /> <id nullFlavor="NA" /> < code codeSystem="local" code="LEUESU" displayName="UA LEUKOCYTE ESTERASE DIPSTICK" /> <statusCode code="completed" /> <effectiveTime value="162556654328" /> <value unit="" xsi:type="PQ" value="1+" /> <interpretationCode codeSystem="local" code="*" /> < referenceRange> <observationRange> <text>NEGATIVE</text > </observationRange> </referenceRange> </observation > </component> <component> <observation moodCode="EVN" classCode="OBS"> <templateId root="16.840.1.822564.10.22.4.2" /> <id nullFlavor="NA" /> <code codeSystem="local" code="NITRIU" displayName="UA NITRITE DIPSTICK" /> <statusCode code="completed" /> <effectiveTime value="643147811791" /> <value unit="" xsi:type= "PQ" value="NEGATIVE" /> <referenceRange> <observationRange > <text>NEGATIVE</text> </observationRange> </ referenceRange> </observation> </component> <component> <observation moodCode="EVN" classCode="OBS"> <templateId root= "03.28.840.1.119862.22.4.2" /> <id nullFlavor="NA" /> < code codeSystem="local" code="PROTEIU" displayName="UA PROTEIN DIPSTICK" /> <statusCode code="completed" /> <effectiveTime value= "955650849722" /> <value unit="" xsi:type="PQ" value="NEGATIVE" /> <referenceRange> <observationRange> <text>NEGATIVE </text> </observationRange> </referenceRange> </ observation> </component> <component> <observation moodCode= "EVN" classCode="OBS"> <templateId root="03.28.840.1.594621..4.2 " /> <id nullFlavor="NA" /> <code codeSystem="local" code= "DGLUU" displayName="UA GLUCOSE DIPSTICK" /> <statusCode code= "completed" /> <effectiveTime value="651426933011" /> <value unit="" xsi:type="PQ" value="NEGATIVE" /> <referenceRange> < observationRange> <text>NEGATIVE</text> </ observationRange> </referenceRange> </observation> </ component> <component> <observation moodCode="EVN" classCode="OBS"> <templateId root="216.840.1.049554.10..4.2" /> <id nullFlavor="NA" /> <code codeSystem="local" code="KETONU" displayName= "UA KETONE DIPSTICK" /> <statusCode code="completed" /> < effectiveTime value="895454720648" /> <value unit="" xsi:type="PQ" value="NEGATIVE" /> <referenceRange> <observationRange> <text>NEGATIVE</text> </observationRange> </ referenceRange> </observation> </component> <component> <observation moodCode="EVN" classCode="OBS"> <templateId root= "216.840.1.211880.10...4.2" /> <id nullFlavor="NA" /> < code codeSystem="local" code="UROBILU" displayName="UA UROBILINOGEN DIPSTICK" / > <statusCode code="completed" /> <effectiveTime value= "599084464880" /> <value unit="" xsi:type="PQ" value="NORMAL" /> <referenceRange> <observationRange> <text>NORMAL</ text> </observationRange> </referenceRange> </ observation> </component> <component> <observation moodCode= "EVN" classCode="OBS"> <templateId root="2.16.840.1.052735.10..22.4.2 " /> <id nullFlavor="NA" /> <code codeSystem="local" code= "BILU" displayName="UA BILIRUBIN DIPSTICK" /> <statusCode code= "completed" /> <effectiveTime value="901450255097" /> <value unit="" xsi:type="PQ" value="NEGATIVE" /> <referenceRange> < observationRange> <text>NEGATIVE</text> </ observationRange> </referenceRange> </observation> </ component> <component> <observation moodCode="EVN" classCode="OBS"> <templateId root="216.840.1.748778.10..4.2" /> <id nullFlavor="NA" /> <code codeSystem="local" code="SOFIA" displayName="UA BLOOD DIPSTICK" /> <statusCode code="completed" /> < effectiveTime value="128408801616" /> <value unit="" xsi:type="PQ" value="2+" /> <interpretationCode codeSystem="local" code="*" /> <referenceRange> <observationRange> <text>NEGATIVE</ text> </observationRange> </referenceRange> </ observation> </component> <component> <observation moodCode= "EVN" classCode="OBS"> <templateId root="16.840.1.134488.10...4.2 " /> <id nullFlavor="NA" /> <code codeSystem="local" code= "SPGRU" displayName="UA SPECIFIC GRAVITY" /> <statusCode code= "completed" /> <effectiveTime value="564658559344" /> <value unit="" xsi:type="PQ" value="1.015" /> <referenceRange> < observationRange> <text>1.015-1.025</text> </ observationRange> </referenceRange> </observation> </ component> <component> <observation moodCode="EVN" classCode="OBS"> <templateId root="16.840.1.974927.1022.4.2" /> <id nullFlavor="NA" /> <code codeSystem="local" code="ANDREW" displayName="UR PH" /> <statusCode code="completed" /> <effectiveTime value= "038844850737" /> <value unit="" xsi:type="PQ" value=">=9.0" /> <interpretationCode codeSystem="local" code="*" /> < referenceRange> <observationRange> <text>5.0-7.0</text> </observationRange> </referenceRange> </observation > </component> </organizer> </entry> <entry> <organizer moodCode= "EVN" classCode="BATTERY"> <templateId root="16.840.1.893963.10.22.4.1 " /> <id nullFlavor="NA" /> <code codeSystem="local" code="UAMICRO" displayName="UA MICROSCOPIC" /> <statusCode code="completed" /> < component> <observation moodCode="EVN" classCode="OBS"> < templateId root="16.840.1.286347.2022.4.2" /> <id nullFlavor="NA " /> <code codeSystem="local" code="AMORPU" displayName="UA AMORPHOUS SEDIMENT" /> <statusCode code="completed" /> <effectiveTime value="337625167383" /> <value unit="" xsi:type="PQ" value="3+" /> <referenceRange> <observationRange> <text /> </observationRange> </referenceRange> </observation> </component> <component> <observation moodCode="EVN" classCode= "OBS"> <templateId root="16.840.1.528070.10.22.4.2" /> < id nullFlavor="NA" /> <code codeSystem="local" code="BACU" displayName= "UA BACTERIA" /> <statusCode code="completed" /> < effectiveTime value="158901387801" /> <value unit="" xsi:type="PQ" value="1+" /> <interpretationCode codeSystem="local" code="*" /> <referenceRange> <observationRange> <text>NEGATIVE</ text> </observationRange> </referenceRange> </ observation> </component> <component> <observation moodCode= "EVN" classCode="OBS"> <templateId root="16.840.1.785812.11.29.21.4.2 " /> <id nullFlavor="NA" /> <code codeSystem="local" code= "EPIU" displayName="UA EPITHELIAL CELLS" /> <statusCode code="completed " /> <effectiveTime value="963306423735" /> <value unit="epi/ hpf" xsi:type="PQ" value="1+" /> <referenceRange> < observationRange> <text>0 - 1+</text> </observationRange > </referenceRange> </observation> </component> < component> <observation moodCode="EVN" classCode="OBS"> < templateId root="16.840.1.047053.10.22.4.2" /> <id nullFlavor="NA " /> <code codeSystem="local" code="HYALU" displayName="UA HYALINE CAST " /> <statusCode code="completed" /> <effectiveTime value= "178259498380" /> <value unit="cast/lpf" xsi:type="PQ" value=">10" / > <interpretationCode codeSystem="local" code="*" /> < referenceRange> <observationRange> <text>0 - 1</text> </observationRange> </referenceRange> </observation> </component> <component> <observation moodCode="EVN" classCode= "OBS"> <templateId root="216.840.1.899616.10..4.2" /> < id nullFlavor="NA" /> <code codeSystem="local" code="RBCU" displayName= "UA RBC" /> <statusCode code="completed" /> <effectiveTime value="855576846366" /> <value unit="rbc/hpf" xsi:type="PQ" value="20- 50" /> <interpretationCode codeSystem="local" code="*" /> < referenceRange> <observationRange> <text>0 - 3</text> </observationRange> </referenceRange> </observation> </component> <component> <observation moodCode="EVN" classCode= "OBS"> <templateId root="216.840.1.247934.11.29.21.4.2" /> < id nullFlavor="NA" /> <code codeSystem="local" code="WBCU" displayName= "UA WBC" /> <statusCode code="completed" /> <effectiveTime value="449666531634" /> <value unit="wbc/hpf" xsi:type="PQ" value="5-10 " /> <interpretationCode codeSystem="local" code="*" /> < referenceRange> <observationRange> <text>0 - 5</text> </observationRange> </referenceRange> </observation> </component> </organizer> </entry> <entry> <organizer moodCode="EVN " classCode="BATTERY"> <templateId root="216.840.1.635351.11.29.21.4.1" / > <id nullFlavor="NA" /> <code codeSystem="local" code="PT" displayName="PROTHROMBIN TIME WITH INR" /> <statusCode code="completed" /> <component> <observation moodCode="EVN" classCode="OBS"> < templateId root="216.840.1.100819...4.2" /> <id nullFlavor="NA " /> <code codeSystem="local" code="INRX" displayName="INTERNATIONAL NORMAL RATIO" /> <statusCode code="completed" /> < effectiveTime value="425273148349" /> <value unit="" xsi:type="PQ" value="2.5" /> <interpretationCode codeSystem="local" code="*" /> <referenceRange> <observationRange> <text>0.9-1.1</ text> </observationRange> </referenceRange> </ observation> </component> <component> <observation moodCode= "EVN" classCode="OBS"> <templateId root="216.840.1.914564.11.29.21.4.2 " /> <id nullFlavor="NA" /> <code codeSystem="local" code= "PTPAT" displayName="PROTHROMBIN TIME" /> <statusCode code="completed" /> <effectiveTime value="448056585620" /> <value unit="sec" xsi:type="PQ" value="28.5" /> <interpretationCode codeSystem="local" code="*" /> <referenceRange> <observationRange> <text>10.0-12.8</text> </observationRange> </ referenceRange> </observation> </component> </organizer> </entry > <entry> <organizer moodCode="EVN" classCode="BATTERY"> <templateId root="216.840.1.987545.11.29.21.4.1" /> <id nullFlavor="NA" /> <code codeSystem="local" code="HEPUF" displayName="HEPARIN UNFRACTIONATED" /> < statusCode code="completed" /> <component> <observation moodCode= "EVN" classCode="OBS"> <templateId root="840.1.949028.11.29.21.4.2 " /> <id nullFlavor="NA" /> <code codeSystem="local" code= "HEPUF" displayName="HEPARIN UNFRACTIONATED" /> <statusCode code= "completed" /> <effectiveTime value="290693073302" /> <value unit="Units/mL" xsi:type="PQ" value="< 0.04" /> <interpretationCode codeSystem="local" code="*" /> <referenceRange> < observationRange> <text>0.3-0.7</text> </ observationRange> </referenceRange> </observation> </ component> </organizer> </entry> <entry> <organizer moodCode="EVN" classCode="BATTERY"> <templateId root="840.1.046686.11.29.21.4.1" /> <id nullFlavor="NA" /> <code codeSystem="local" code="CBC" displayName ="CBC" /> <statusCode code="completed" /> <component> < observation moodCode="EVN" classCode="OBS"> <templateId root= "840.1.718907.11.29.21.4.2" /> <id nullFlavor="NA" /> < code codeSystem="local" code="MCH" displayName="MEAN CELL HGB" /> < statusCode code="completed" /> <effectiveTime value="284466821380" /> <value unit="pg" xsi:type="PQ" value="28.5" /> <referenceRange > <observationRange> <text>27.0-33.0</text> < /observationRange> </referenceRange> </observation> </ component> <component> <observation moodCode="EVN" classCode="OBS"> <templateId root="16.840.1.187634.10.20.22.4.2" /> <id nullFlavor="NA" /> <code codeSystem="local" code="MCHC" displayName= "MEAN CELL HGB CONCENTRATION" /> <statusCode code="completed" /> <effectiveTime value="723997357845" /> <value unit="g/dL" xsi:type= "PQ" value="31.0" /> <interpretationCode codeSystem="local" code="*" / > <referenceRange> <observationRange> <text> 32.0-37.0</text> </observationRange> </referenceRange> </observation> </component> <component> <observation moodCode="EVN" classCode="OBS"> <templateId root= "03.28.840.1.939144.11.29.21.4.2" /> <id nullFlavor="NA" /> < code codeSystem="local" code="MCV" displayName="MEAN CELL VOLUME" /> < statusCode code="completed" /> <effectiveTime value="004358781500" /> <value unit="fl" xsi:type="PQ" value="91.9" /> <referenceRange > <observationRange> <text>80.0-100.0</text> </observationRange> </referenceRange> </observation> </ component> <component> <observation moodCode="EVN" classCode="OBS"> <templateId root="16.840.1.217381.10..22.4.2" /> <id nullFlavor="NA" /> <code codeSystem="local" code="MPVT" displayName= "MEAN PLATELET VOLUME" /> <statusCode code="completed" /> < effectiveTime value="958686330575" /> <value unit="fl" xsi:type="PQ" value="10.0" /> <referenceRange> <observationRange> <text>8.5-10.9</text> </observationRange> </ referenceRange> </observation> </component> <component> <observation moodCode="EVN" classCode="OBS"> <templateId root= "216.840.1.667575.10..22.4.2" /> <id nullFlavor="NA" /> < code codeSystem="local" code="RBC" displayName="RED BLOOD CELL" /> < statusCode code="completed" /> <effectiveTime value="197825524093" /> <value unit="m/cumm" xsi:type="PQ" value="3.33" /> < interpretationCode codeSystem="local" code="*" /> <referenceRange> <observationRange> <text>4.00-6.00</text> </ observationRange> </referenceRange> </observation> </ component> <component> <observation moodCode="EVN" classCode="OBS"> <templateId root="216.840.1.549511.10..22.4.2" /> <id nullFlavor="NA" /> <code codeSystem="local" code="RDW" displayName=" RED CELL DISTRIBUTION WIDTH" /> <statusCode code="completed" /> <effectiveTime value="428968928692" /> <value unit="%" xsi:type= "PQ" value="15.4" /> <referenceRange> <observationRange> <text>11.0-15.6</text> </observationRange> </ referenceRange> </observation> </component> <component> <observation moodCode="EVN" classCode="OBS"> <templateId root= "03.28.840.1.114076.10.2022.4.2" /> <id nullFlavor="NA" /> < code codeSystem="local" code="WBC" displayName="WHITE BLOOD CELL" /> < statusCode code="completed" /> <effectiveTime value="673760345780" /> <value unit="k/cumm" xsi:type="PQ" value="7.8" /> < referenceRange> <observationRange> <text>5.0-10.0</text > </observationRange> </referenceRange> </observation > </component> <component> <observation moodCode="EVN" classCode="OBS"> <templateId root="03.28.840.1.930373.10.4.2" /> <id nullFlavor="NA" /> <code codeSystem="local" code="HGBT" displayName="HEMOGLOBIN" /> <statusCode code="completed" /> < effectiveTime value="829111650486" /> <value unit="gm/dL" xsi:type="PQ " value="9.5" /> <interpretationCode codeSystem="local" code="*" /> <referenceRange> <observationRange> <text>12.0- 16.0</text> </observationRange> </referenceRange> </ observation> </component> <component> <observation moodCode= "EVN" classCode="OBS"> <templateId root="03.28.840.1.265937.10.2022.4.2 " /> <id nullFlavor="NA" /> <code codeSystem="local" code= "HCTT" displayName="HEMATOCRIT" /> <statusCode code="completed" /> <effectiveTime value="721877692183" /> <value unit="%" xsi: type="PQ" value="30.6" /> <interpretationCode codeSystem="local" code= "*" /> <referenceRange> <observationRange> < text>37.0-47.0</text> </observationRange> </referenceRange> </observation> </component> <component> <observation moodCode="EVN" classCode="OBS"> <templateId root= "216.840.1.054619.11.29.21.4.2" /> <id nullFlavor="NA" /> < code codeSystem="local" code="NRBC%" displayName="NRBC %" /> < statusCode code="completed" /> <effectiveTime value="765227055275" /> <value unit="/100WBC" xsi:type="PQ" value="0.0" /> < referenceRange> <observationRange> <text>0.0-0.0</text> </observationRange> </referenceRange> </observation > </component> <component> <observation moodCode="EVN" classCode="OBS"> <templateId root="216.840.1.406597.11.29.21.4.2" /> <id nullFlavor="NA" /> <code codeSystem="local" code="PLTT" displayName="PLATELET COUNT" /> <statusCode code="completed" /> <effectiveTime value="148947037150" /> <value unit="k/cumm" xsi:type ="PQ" value="280" /> <referenceRange> <observationRange> <text>150-400</text> </observationRange> </ referenceRange> </observation> </component> </organizer> </entry > <entry> <organizer moodCode="EVN" classCode="BATTERY"> <templateId root="216.840.1.905942.11.29.21.4.1" /> <id nullFlavor="NA" /> <code codeSystem="local" code="PT" displayName="PROTHROMBIN TIME WITH INR" /> < statusCode code="completed" /> <component> <observation moodCode= "EVN" classCode="OBS"> <templateId root="216.840.1.218909.11.29.21.4.2 " /> <id nullFlavor="NA" /> <code codeSystem="local" code= "INRX" displayName="INTERNATIONAL NORMAL RATIO" /> <statusCode code= "completed" /> <effectiveTime value="115771510438" /> <value unit="" xsi:type="PQ" value="2.2" /> <interpretationCode codeSystem= "local" code="*" /> <referenceRange> <observationRange> <text>0.9-1.1</text> </observationRange> </ referenceRange> </observation> </component> <component> <observation moodCode="EVN" classCode="OBS"> <templateId root= "216.840.1.046879.11.29.21.4.2" /> <id nullFlavor="NA" /> < code codeSystem="local" code="PTPAT" displayName="PROTHROMBIN TIME" /> <statusCode code="completed" /> <effectiveTime value="562016938191" /> <value unit="sec" xsi:type="PQ" value="25.7" /> < interpretationCode codeSystem="local" code="*" /> <referenceRange> <observationRange> <text>10.0-12.8</text> </ observationRange> </referenceRange> </observation> </ component> </organizer> </entry> <entry> <organizer moodCode="EVN" classCode="BATTERY"> <templateId root="216.840.1.758614.22.4.1" /> <id nullFlavor="NA" /> <code codeSystem="local" code="CBC" displayName ="CBC" /> <statusCode code="completed" /> <component> < observation moodCode="EVN" classCode="OBS"> <templateId root= "216.840.1.902427.10..22.4.2" /> <id nullFlavor="NA" /> < code codeSystem="local" code="MCH" displayName="MEAN CELL HGB" /> < statusCode code="completed" /> <effectiveTime value="456942925197" /> <value unit="pg" xsi:type="PQ" value="28.7" /> <referenceRange > <observationRange> <text>27.0-33.0</text> < /observationRange> </referenceRange> </observation> </ component> <component> <observation moodCode="EVN" classCode="OBS"> <templateId root="03.28.840.1.467265.10..4.2" /> <id nullFlavor="NA" /> <code codeSystem="local" code="MCHC" displayName= "MEAN CELL HGB CONCENTRATION" /> <statusCode code="completed" /> <effectiveTime value="424979007689" /> <value unit="g/dL" xsi:type= "PQ" value="31.0" /> <interpretationCode codeSystem="local" code="*" / > <referenceRange> <observationRange> <text> 32.0-37.0</text> </observationRange> </referenceRange> </observation> </component> <component> <observation moodCode="EVN" classCode="OBS"> <templateId root= "16.840.1.260790.10...4.2" /> <id nullFlavor="NA" /> < code codeSystem="local" code="MCV" displayName="MEAN CELL VOLUME" /> < statusCode code="completed" /> <effectiveTime value="860594211106" /> <value unit="fl" xsi:type="PQ" value="92.6" /> <referenceRange > <observationRange> <text>80.0-100.0</text> </observationRange> </referenceRange> </observation> </ component> <component> <observation moodCode="EVN" classCode="OBS"> <templateId root="216.840.1.315455.10.20.22.4.2" /> <id nullFlavor="NA" /> <code codeSystem="local" code="MPVT" displayName= "MEAN PLATELET VOLUME" /> <statusCode code="completed" /> < effectiveTime value="" /> <value unit="fl" xsi:type="PQ" value="10.1" /> <referenceRange> <observationRange> <text>8.5-10.9</text> </observationRange> </ referenceRange> </observation> </component> <component> <observation moodCode="EVN" classCode="OBS"> <templateId root= "16.840.1.000265.10.20.22.4.2" /> <id nullFlavor="NA" /> < code codeSystem="local" code="RBC" displayName="RED BLOOD CELL" /> < statusCode code="completed" /> <effectiveTime value="847719793090" /> <value unit="m/cumm" xsi:type="PQ" value="3.10" /> < interpretationCode codeSystem="local" code="*" /> <referenceRange> <observationRange> <text>4.00-6.00</text> </ observationRange> </referenceRange> </observation> </ component> <component> <observation moodCode="EVN" classCode="OBS"> <templateId root="16.840.1.584878.10..4.2" /> <id nullFlavor="NA" /> <code codeSystem="local" code="RDW" displayName=" RED CELL DISTRIBUTION WIDTH" /> <statusCode code="completed" /> <effectiveTime value="" /> <value unit="%" xsi:type= "PQ" value="15.5" /> <referenceRange> <observationRange> <text>11.0-15.6</text> </observationRange> </ referenceRange> </observation> </component> <component> <observation moodCode="EVN" classCode="OBS"> <templateId root= "16.840.1.488971.11.29.21.4.2" /> <id nullFlavor="NA" /> < code codeSystem="local" code="WBC" displayName="WHITE BLOOD CELL" /> < statusCode code="completed" /> <effectiveTime value="" /> <value unit="k/cumm" xsi:type="PQ" value="7.2" /> < referenceRange> <observationRange> <text>5.0-10.0</text > </observationRange> </referenceRange> </observation > </component> <component> <observation moodCode="EVN" classCode="OBS"> <templateId root="03.28.840.1.101017.10..22.4.2" /> <id nullFlavor="NA" /> <code codeSystem="local" code="HGBT" displayName="HEMOGLOBIN" /> <statusCode code="completed" /> < effectiveTime value="485420305681" /> <value unit="gm/dL" xsi:type="PQ " value="8.9" /> <interpretationCode codeSystem="local" code="*" /> <referenceRange> <observationRange> <text>12.0- 16.0</text> </observationRange> </referenceRange> </ observation> </component> <component> <observation moodCode= "EVN" classCode="OBS"> <templateId root="216.840.1.236685.10.4.2 " /> <id nullFlavor="NA" /> <code codeSystem="local" code= "HCTT" displayName="HEMATOCRIT" /> <statusCode code="completed" /> <effectiveTime value="860441942728" /> <value unit="%" xsi: type="PQ" value="28.7" /> <interpretationCode codeSystem="local" code= "*" /> <referenceRange> <observationRange> < text>37.0-47.0</text> </observationRange> </referenceRange> </observation> </component> <component> <observation moodCode="EVN" classCode="OBS"> <templateId root= "216.840.1.944823.11.29.214.2" /> <id nullFlavor="NA" /> < code codeSystem="local" code="NRBC%" displayName="NRBC %" /> < statusCode code="completed" /> <effectiveTime value="973672925982" /> <value unit="/100WBC" xsi:type="PQ" value="0.0" /> < referenceRange> <observationRange> <text>0.0-0.0</text> </observationRange> </referenceRange> </observation > </component> <component> <observation moodCode="EVN" classCode="OBS"> <templateId root="216.840.1.110420.11.29.21.4.2" /> <id nullFlavor="NA" /> <code codeSystem="local" code="PLTT" displayName="PLATELET COUNT" /> <statusCode code="completed" /> <effectiveTime value="975036513292" /> <value unit="k/cumm" xsi:type ="PQ" value="251" /> <referenceRange> <observationRange> <text>150-400</text> </observationRange> </ referenceRange> </observation> </component> </organizer> </entry > <entry> <organizer moodCode="EVN" classCode="BATTERY"> <templateId root="216.840.1.318647.11.29.21.4.1" /> <id nullFlavor="NA" /> <code codeSystem="local" code="HEPUF" displayName="HEPARIN UNFRACTIONATED" /> < statusCode code="completed" /> <component> <observation moodCode= "EVN" classCode="OBS"> <templateId root="216.840.1.800900.10..4.2 " /> <id nullFlavor="NA" /> <code codeSystem="local" code= "HEPUF" displayName="HEPARIN UNFRACTIONATED" /> <statusCode code= "completed" /> <effectiveTime value="907819389288" /> <value unit="Units/mL" xsi:type="PQ" value="0.29" /> <interpretationCode codeSystem="local" code="*" /> <referenceRange> < observationRange> <text>0.3-0.7</text> </ observationRange> </referenceRange> </observation> </ component> </organizer> </entry> <entry> <organizer moodCode="EVN" classCode="BATTERY"> <templateId root="216.840.1.766571.11.29.21.4.1" /> <id nullFlavor="NA" /> <code codeSystem="local" code="PT" displayName= "PROTHROMBIN TIME WITH INR" /> <statusCode code="completed" /> < component> <observation moodCode="EVN" classCode="OBS"> < templateId root="216.840.1.064171.11.29.21.4.2" /> <id nullFlavor="NA " /> <code codeSystem="local" code="INRX" displayName="INTERNATIONAL NORMAL RATIO" /> <statusCode code="completed" /> < effectiveTime value="044938399676" /> <value unit="" xsi:type="PQ" value="2.0" /> <interpretationCode codeSystem="local" code="*" /> <referenceRange> <observationRange> <text>0.9-1.1</ text> </observationRange> </referenceRange> </ observation> </component> <component> <observation moodCode= "EVN" classCode="OBS"> <templateId root="16.840.1.167875.11.29.214.2 " /> <id nullFlavor="NA" /> <code codeSystem="local" code= "PTPAT" displayName="PROTHROMBIN TIME" /> <statusCode code="completed" /> <effectiveTime value="462596149002" /> <value unit="sec" xsi:type="PQ" value="22.8" /> <interpretationCode codeSystem="local" code="*" /> <referenceRange> <observationRange> <text>10.0-12.8</text> </observationRange> </ referenceRange> </observation> </component> </organizer> </entry > <entry> <organizer moodCode="EVN" classCode="BATTERY"> <templateId root="216.840.1.002273.11.29.214.1" /> <id nullFlavor="NA" /> <code codeSystem="local" code="PT" displayName="PROTHROMBIN TIME WITH INR" /> < statusCode code="completed" /> <component> <observation moodCode= "EVN" classCode="OBS"> <templateId root="216.840.1.069743.11.29.21.4.2 " /> <id nullFlavor="NA" /> <code codeSystem="local" code= "INRX" displayName="INTERNATIONAL NORMAL RATIO" /> <statusCode code= "completed" /> <effectiveTime value="168596871303" /> <value unit="" xsi:type="PQ" value="1.9" /> <interpretationCode codeSystem= "local" code="*" /> <referenceRange> <observationRange> <text>0.9-1.1</text> </observationRange> </ referenceRange> </observation> </component> <component> <observation moodCode="EVN" classCode="OBS"> <templateId root= "216.840.1.022615.11.29.21.4.2" /> <id nullFlavor="NA" /> < code codeSystem="local" code="PTPAT" displayName="PROTHROMBIN TIME" /> <statusCode code="completed" /> <effectiveTime value="466876923611" /> <value unit="sec" xsi:type="PQ" value="21.5" /> < interpretationCode codeSystem="local" code="*" /> <referenceRange> <observationRange> <text>10.0-12.8</text> </ observationRange> </referenceRange> </observation> </ component> </organizer> </entry> <entry> <organizer moodCode="EVN" classCode="BATTERY"> <templateId root="216.840.1.635940.11.29.214.1" /> <id nullFlavor="NA" /> <code codeSystem="local" code="HEPUF" displayName="HEPARIN UNFRACTIONATED" /> <statusCode code="completed" /> <component> <observation moodCode="EVN" classCode="OBS"> < templateId root="840.1.025847.11.29.21.4.2" /> <id nullFlavor="NA " /> <code codeSystem="local" code="HEPUF" displayName="HEPARIN UNFRACTIONATED" /> <statusCode code="completed" /> < effectiveTime value="621141397431" /> <value unit="Units/mL" xsi:type= "PQ" value="0.05" /> <interpretationCode codeSystem="local" code="*" / > <referenceRange> <observationRange> <text>0.3 -0.7</text> </observationRange> </referenceRange> </ observation> </component> </organizer> </entry> <entry> <organizer moodCode="EVN" classCode="BATTERY"> <templateId root= "840.1.668032.11.29.21.4.1" /> <id nullFlavor="NA" /> <code codeSystem="local" code="HEPLMW" displayName="HEPARIN-LOW MOLECULAR WEIGHT" /> <statusCode code="completed" /> <component> <observation moodCode="EVN" classCode="OBS"> <templateId root= "840.1.685232.11.29.21.4.2" /> <id nullFlavor="NA" /> < code codeSystem="local" code="HEPLMW" displayName="HEPARIN-LOW MOLECULAR WEIGHT " /> <statusCode code="completed" /> <effectiveTime value= "591413898219" /> <value unit="Units/mL" xsi:type="PQ" value="0.50" /> <referenceRange> <observationRange> <text>0.00 </text> </observationRange> </referenceRange> </ observation> </component> </organizer> </entry> <entry> <organizer moodCode="EVN" classCode="BATTERY"> <templateId root= "03.28.840.1.192817.10..4.1" /> <id nullFlavor="NA" /> <code codeSystem="local" code="HEPUF" displayName="HEPARIN UNFRACTIONATED" /> < statusCode code="completed" /> <component> <observation moodCode= "EVN" classCode="OBS"> <templateId root="03.28.840.1.937742.11.29.21.4.2 " /> <id nullFlavor="NA" /> <code codeSystem="local" code= "HEPUF" displayName="HEPARIN UNFRACTIONATED" /> <statusCode code= "completed" /> <effectiveTime value="063509912812" /> <value unit="Units/mL" xsi:type="PQ" value="0.67" /> <referenceRange> <observationRange> <text>0.3-0.7</text> </ observationRange> </referenceRange> </observation> </ component> </organizer> </entry> <entry> <organizer moodCode="EVN" classCode="BATTERY"> <templateId root="03.28.840.1.848077.10..4.1" /> <id nullFlavor="NA" /> <code codeSystem="local" code="CBCD" displayName="CBC W/DIFF" /> <statusCode code="completed" /> <component > <observation moodCode="EVN" classCode="OBS"> <templateId root= "840.1.607822.11.29.214.2" /> <id nullFlavor="NA" /> < code codeSystem="local" code="BA#" displayName="BASOPHIL #" /> < statusCode code="completed" /> <effectiveTime value="" /> <value unit="k/cumm" xsi:type="PQ" value="0.0" /> < referenceRange> <observationRange> <text>0.0-0.2</text> </observationRange> </referenceRange> </observation > </component> <component> <observation moodCode="EVN" classCode="OBS"> <templateId root="216.840.1.112593.11.29.214.2" /> <id nullFlavor="NA" /> <code codeSystem="local" code="BA% " displayName="BASOPHIL %" /> <statusCode code="completed" /> <effectiveTime value="" /> <value unit="%" xsi: type="PQ" value="0.2" /> <referenceRange> <observationRange > <text>0-1</text> </observationRange> </ referenceRange> </observation> </component> <component> <observation moodCode="EVN" classCode="OBS"> <templateId root= "216.840.1.648007.11.29.21.4.2" /> <id nullFlavor="NA" /> < code codeSystem="local" code="EO#" displayName="EOSINOPHIL #" /> < statusCode code="completed" /> <effectiveTime value="" /> <value unit="k/cumm" xsi:type="PQ" value="0.0" /> < interpretationCode codeSystem="local" code="*" /> <referenceRange> <observationRange> <text>0.1-0.5</text> </ observationRange> </referenceRange> </observation> </ component> <component> <observation moodCode="EVN" classCode="OBS"> <templateId root="216.840.1.732146.10.20.4.2" /> <id nullFlavor="NA" /> <code codeSystem="local" code="EO%" displayName= "EOSINOPHIL %" /> <statusCode code="completed" /> < effectiveTime value="" /> <value unit="%" xsi:type="PQ " value="0.0" /> <interpretationCode codeSystem="local" code="*" /> <referenceRange> <observationRange> <text>2-4</ text> </observationRange> </referenceRange> </ observation> </component> <component> <observation moodCode= "EVN" classCode="OBS"> <templateId root="03.28.840.1.693088.11.29.214.2 " /> <id nullFlavor="NA" /> <code codeSystem="local" code="GR# " displayName="GRANULOCYTE #" /> <statusCode code="completed" /> <effectiveTime value="" /> <value unit="k/cumm" xsi: type="PQ" value="7.7" /> <referenceRange> <observationRange > <text>2.0-9.0</text> </observationRange> </ referenceRange> </observation> </component> <component> <observation moodCode="EVN" classCode="OBS"> <templateId root= "16.840.1.459035.11.29.21.4.2" /> <id nullFlavor="NA" /> < code codeSystem="local" code="GR%" displayName="GRANULOCYTE %" /> <statusCode code="completed" /> <effectiveTime value="864834408010 " /> <value unit="%" xsi:type="PQ" value="80.8" /> < interpretationCode codeSystem="local" code="*" /> <referenceRange> <observationRange> <text>50-75</text> </ observationRange> </referenceRange> </observation> </ component> <component> <observation moodCode="EVN" classCode="OBS"> <templateId root="216.840.1.742793.10.20.22.4.2" /> <id nullFlavor="NA" /> <code codeSystem="local" code="LY#" displayName= "LYMPHOCYTE #" /> <statusCode code="completed" /> < effectiveTime value="" /> <value unit="k/cumm" xsi:type="PQ " value="1.2" /> <referenceRange> <observationRange> <text>1.0-4.0</text> </observationRange> </ referenceRange> </observation> </component> <component> <observation moodCode="EVN" classCode="OBS"> <templateId root= "2.16.840.1.760664.10.20.22.4.2" /> <id nullFlavor="NA" /> < code codeSystem="local" code="LY%" displayName="LYMPHOCYTE %" /> <statusCode code="completed" /> <effectiveTime value="521268248987" /> <value unit="%" xsi:type="PQ" value="12.3" /> < interpretationCode codeSystem="local" code="*" /> <referenceRange> <observationRange> <text>20-30</text> </ observationRange> </referenceRange> </observation> </ component> <component> <observation moodCode="EVN" classCode="OBS"> <templateId root="03.28.840.1.134045.10.20.22.4.2" /> <id nullFlavor="NA" /> <code codeSystem="local" code="MCH" displayName= "MEAN CELL HGB" /> <statusCode code="completed" /> < effectiveTime value="" /> <value unit="pg" xsi:type="PQ" value="28.7" /> <referenceRange> <observationRange> <text>27.0-33.0</text> </observationRange> </ referenceRange> </observation> </component> <component> <observation moodCode="EVN" classCode="OBS"> <templateId root= "840.1.067797.1022.4.2" /> <id nullFlavor="NA" /> < code codeSystem="local" code="MCHC" displayName="MEAN CELL HGB CONCENTRATION" / > <statusCode code="completed" /> <effectiveTime value= "" /> <value unit="g/dL" xsi:type="PQ" value="30.5" /> <interpretationCode codeSystem="local" code="*" /> < referenceRange> <observationRange> <text>32.0-37.0</text > </observationRange> </referenceRange> </observation > </component> <component> <observation moodCode="EVN" classCode="OBS"> <templateId root="840.1.420893.10.2022.4.2" /> <id nullFlavor="NA" /> <code codeSystem="local" code="MCV" displayName="MEAN CELL VOLUME" /> <statusCode code="completed" /> <effectiveTime value="" /> <value unit="fl" xsi:type= "PQ" value="94.0" /> <referenceRange> <observationRange> <text>80.0-100.0</text> </observationRange> </ referenceRange> </observation> </component> <component> <observation moodCode="EVN" classCode="OBS"> <templateId root= "216.840.1.890872.10..22.4.2" /> <id nullFlavor="NA" /> < code codeSystem="local" code="MO#" displayName="MONOCYTE #" /> < statusCode code="completed" /> <effectiveTime value="602521214623" /> <value unit="k/cumm" xsi:type="PQ" value="0.6" /> < referenceRange> <observationRange> <text>0.1-1.0</text> </observationRange> </referenceRange> </observation > </component> <component> <observation moodCode="EVN" classCode="OBS"> <templateId root="03.28.840.1.030334.10...4.2" /> <id nullFlavor="NA" /> <code codeSystem="local" code="MO% " displayName="MONOCYTE %" /> <statusCode code="completed" /> <effectiveTime value="846135417824" /> <value unit="%" xsi: type="PQ" value="6.2" /> <interpretationCode codeSystem="local" code="* " /> <referenceRange> <observationRange> <text> 4-6</text> </observationRange> </referenceRange> </ observation> </component> <component> <observation moodCode= "EVN" classCode="OBS"> <templateId root="03.28.840.1.814391.10...4.2 " /> <id nullFlavor="NA" /> <code codeSystem="local" code= "MPVT" displayName="MEAN PLATELET VOLUME" /> <statusCode code= "completed" /> <effectiveTime value="" /> <value unit="fl" xsi:type="PQ" value="10.4" /> <referenceRange> < observationRange> <text>8.5-10.9</text> </ observationRange> </referenceRange> </observation> </ component> <component> <observation moodCode="EVN" classCode="OBS"> <templateId root="216.840.1.795515.10.20.22.4.2" /> <id nullFlavor="NA" /> <code codeSystem="local" code="RBC" displayName=" RED BLOOD CELL" /> <statusCode code="completed" /> < effectiveTime value="976922368812" /> <value unit="m/cumm" xsi:type="PQ " value="3.17" /> <interpretationCode codeSystem="local" code="*" /> <referenceRange> <observationRange> <text>4.00- 6.00</text> </observationRange> </referenceRange> </ observation> </component> <component> <observation moodCode= "EVN" classCode="OBS"> <templateId root="16.840.1.630767.10.20.22.4.2 " /> <id nullFlavor="NA" /> <code codeSystem="local" code="RDW " displayName="RED CELL DISTRIBUTION WIDTH" /> <statusCode code= "completed" /> <effectiveTime value="" /> <value unit="%" xsi:type="PQ" value="15.3" /> <referenceRange> <observationRange> <text>11.0-15.6</text> </ observationRange> </referenceRange> </observation> </ component> <component> <observation moodCode="EVN" classCode="OBS"> <templateId root="03.28.840.1.823695.10.20.22.4.2" /> <id nullFlavor="NA" /> <code codeSystem="local" code="WBC" displayName= "WHITE BLOOD CELL" /> <statusCode code="completed" /> < effectiveTime value="" /> <value unit="k/cumm" xsi:type="PQ " value="9.5" /> <referenceRange> <observationRange> <text>5.0-10.0</text> </observationRange> </ referenceRange> </observation> </component> <component> <observation moodCode="EVN" classCode="OBS"> <templateId root= "03.28.840.1.752138.1022.4.2" /> <id nullFlavor="NA" /> < code codeSystem="local" code="HGBT" displayName="HEMOGLOBIN" /> < statusCode code="completed" /> <effectiveTime value="" /> <value unit="gm/dL" xsi:type="PQ" value="9.1" /> < interpretationCode codeSystem="local" code="*" /> <referenceRange> <observationRange> <text>12.0-16.0</text> </ observationRange> </referenceRange> </observation> </ component> <component> <observation moodCode="EVN" classCode="OBS"> <templateId root="03.28.840.1.522219.10.20.22.4.2" /> <id nullFlavor="NA" /> <code codeSystem="local" code="HCTT" displayName= "HEMATOCRIT" /> <statusCode code="completed" /> < effectiveTime value="" /> <value unit="%" xsi:type="PQ " value="29.8" /> <interpretationCode codeSystem="local" code="*" /> <referenceRange> <observationRange> <text>37.0- 47.0</text> </observationRange> </referenceRange> </ observation> </component> <component> <observation moodCode= "EVN" classCode="OBS"> <templateId root="216.840.1.147806.10..4.2 " /> <id nullFlavor="NA" /> <code codeSystem="local" code= "NRBC%" displayName="NRBC %" /> <statusCode code="completed" / > <effectiveTime value="770355066495" /> <value unit="/100WBC " xsi:type="PQ" value="0.0" /> <referenceRange> < observationRange> <text>0.0-0.0</text> </ observationRange> </referenceRange> </observation> </ component> <component> <observation moodCode="EVN" classCode="OBS"> <templateId root="03.28.840.1.335164.10.4.2" /> <id nullFlavor="NA" /> <code codeSystem="local" code="PLTT" displayName= "PLATELET COUNT" /> <statusCode code="completed" /> < effectiveTime value="" /> <value unit="k/cumm" xsi:type="PQ " value="255" /> <referenceRange> <observationRange> <text>150-400</text> </observationRange> </ referenceRange> </observation> </component> <component> <observation moodCode="EVN" classCode="OBS"> <templateId root= "03.28.840.1.253139.10.22.4.2" /> <id nullFlavor="NA" /> < code codeSystem="local" code="IG%" displayName="IMMATURE GRANULOCYTE %" /> <statusCode code="completed" /> <effectiveTime value= "771174633581" /> <value unit="%" xsi:type="PQ" value="0.5" /> <referenceRange> <observationRange> <text>0.0-0.6< /text> </observationRange> </referenceRange> </ observation> </component> <component> <observation moodCode= "EVN" classCode="OBS"> <templateId root="840.1.676126.11.29.21.4.2 " /> <id nullFlavor="NA" /> <code codeSystem="local" code="IG# " displayName="IMMATURE GRANULOCYTE #" /> <statusCode code="completed" /> <effectiveTime value="077578683653" /> <value unit="k/cumm " xsi:type="PQ" value="0.05" /> <referenceRange> < observationRange> <text>0.00-0.09</text> </ observationRange> </referenceRange> </observation> </ component> </organizer> </entry> <entry> <organizer moodCode="EVN" classCode="BATTERY"> <templateId root="840.1.898767.11.29.21.4.1" /> <id nullFlavor="NA" /> <code codeSystem="local" code="HEPUF" displayName="HEPARIN UNFRACTIONATED" /> <statusCode code="completed" /> <component> <observation moodCode="EVN" classCode="OBS"> < templateId root="03.28.840.1.338376.10.4.2" /> <id nullFlavor="NA " /> <code codeSystem="local" code="HEPUF" displayName="HEPARIN UNFRACTIONATED" /> <statusCode code="completed" /> < effectiveTime value="691219603807" /> <value unit="Units/mL" xsi:type= "PQ" value="0.66" /> <referenceRange> <observationRange> <text>0.3-0.7</text> </observationRange> </ referenceRange> </observation> </component> </organizer> </entry > <entry> <organizer moodCode="EVN" classCode="BATTERY"> <templateId root="16.840.1.695568.10...4.1" /> <id nullFlavor="NA" /> <code codeSystem="local" code="PT" displayName="PROTHROMBIN TIME WITH INR" /> < statusCode code="completed" /> <component> <observation moodCode= "EVN" classCode="OBS"> <templateId root="03.28.840.1.173874....4.2 " /> <id nullFlavor="NA" /> <code codeSystem="local" code= "INRX" displayName="INTERNATIONAL NORMAL RATIO" /> <statusCode code= "completed" /> <effectiveTime value="707587409022" /> <value unit="" xsi:type="PQ" value="1.3" /> <interpretationCode codeSystem= "local" code="*" /> <referenceRange> <observationRange> <text>0.9-1.1</text> </observationRange> </ referenceRange> </observation> </component> <component> <observation moodCode="EVN" classCode="OBS"> <templateId root= "03.28.840.1.037278....4.2" /> <id nullFlavor="NA" /> < code codeSystem="local" code="PTPAT" displayName="PROTHROMBIN TIME" /> <statusCode code="completed" /> <effectiveTime value="734995500411" /> <value unit="sec" xsi:type="PQ" value="15.2" /> < interpretationCode codeSystem="local" code="*" /> <referenceRange> <observationRange> <text>10.0-12.8</text> </ observationRange> </referenceRange> </observation> </ component> </organizer> </entry> <entry> <organizer moodCode="EVN" classCode="BATTERY"> <templateId root="16.840.1.976018.10..22.4.1" /> <id nullFlavor="NA" /> <code codeSystem="local" code="METAB" displayName="METABOLIC PANEL, BASIC" /> <statusCode code="completed" /> <component> <observation moodCode="EVN" classCode="OBS"> < templateId root="03.28.840.1.273703...4.2" /> <id nullFlavor="NA " /> <code codeSystem="local" code="K" displayName="POTASSIUM" /> <statusCode code="completed" /> <effectiveTime value="736589529227 " /> <value unit="mmol/L" xsi:type="PQ" value="4.4" /> < referenceRange> <observationRange> <text>3.5-5.3</text> </observationRange> </referenceRange> </observation > </component> <component> <observation moodCode="EVN" classCode="OBS"> <templateId root="03.28.840.1.225962..22.4.2" /> <id nullFlavor="NA" /> <code codeSystem="local" code="eGFR" displayName="EST GFR (MDRD)" /> <statusCode code="completed" /> <effectiveTime value="834252332768" /> <value unit="mL/min" xsi:type ="PQ" value="> 60" /> <referenceRange> <observationRange > <text>> 59</text> </observationRange> </ referenceRange> </observation> </component> <component> <observation moodCode="EVN" classCode="OBS"> <templateId root= "216.840.1.366081.10...4.2" /> <id nullFlavor="NA" /> < code codeSystem="local" code="GAP" displayName="ANION GAP" /> < statusCode code="completed" /> <effectiveTime value="649409029790" /> <value unit="mmol/L" xsi:type="PQ" value="6" /> < referenceRange> <observationRange> <text>5-15</text> </observationRange> </referenceRange> </observation> </component> <component> <observation moodCode="EVN" classCode= "OBS"> <templateId root="03.28.840.1.254099.10..4.2" /> < id nullFlavor="NA" /> <code codeSystem="local" code="eCrCl" displayName ="EST CrCl (CG)" /> <statusCode code="completed" /> < effectiveTime value="975087132396" /> <value unit="mL/min" xsi:type="PQ " value="> 60" /> <referenceRange> <observationRange> <text>> 59</text> </observationRange> </ referenceRange> </observation> </component> <component> <observation moodCode="EVN" classCode="OBS"> <templateId root= "16.840.1.719207.10..22.4.2" /> <id nullFlavor="NA" /> < code codeSystem="local" code="GLU" displayName="GLUCOSE" /> < statusCode code="completed" /> <effectiveTime value="779998917298" /> <value unit="mg/dL" xsi:type="PQ" value="113" /> < interpretationCode codeSystem="local" code="*" /> <referenceRange> <observationRange> <text>70-99</text> </ observationRange> </referenceRange> </observation> </ component> <component> <observation moodCode="EVN" classCode="OBS"> <templateId root="2.16.840.1.820864.10.20.22.4.2" /> <id nullFlavor="NA" /> <code codeSystem="local" code="CA" displayName= "CALCIUM" /> <statusCode code="completed" /> <effectiveTime value="127226647373" /> <value unit="mg/dL" xsi:type="PQ" value="7.8" / > <interpretationCode codeSystem="local" code="*" /> < referenceRange> <observationRange> <text>8.5-10.1</text > </observationRange> </referenceRange> </observation > </component> <component> <observation moodCode="EVN" classCode="OBS"> <templateId root="216.840.1.169652.10.20.22.4.2" /> <id nullFlavor="NA" /> <code codeSystem="local" code="BUN" displayName="BLOOD UREA NITROGEN" /> <statusCode code="completed" /> <effectiveTime value="" /> <value unit="mg/dL" xsi: type="PQ" value="13" /> <referenceRange> <observationRange> <text>7-20</text> </observationRange> </ referenceRange> </observation> </component> <component> <observation moodCode="EVN" classCode="OBS"> <templateId root= "16.840.1.490982.10.20.22.4.2" /> <id nullFlavor="NA" /> < code codeSystem="local" code="CREAT" displayName="CREATININE" /> < statusCode code="completed" /> <effectiveTime value="542330928762" /> <value unit="mg/dL" xsi:type="PQ" value="0.8" /> < referenceRange> <observationRange> <text>0.6-1.0</text> </observationRange> </referenceRange> </observation > </component> <component> <observation moodCode="EVN" classCode="OBS"> <templateId root="16.840.1.741992.10..22.4.2" /> <id nullFlavor="NA" /> <code codeSystem="local" code="NA" displayName="SODIUM" /> <statusCode code="completed" /> < effectiveTime value="649079609401" /> <value unit="mmol/L" xsi:type="PQ " value="141" /> <referenceRange> <observationRange> <text>135-148</text> </observationRange> </ referenceRange> </observation> </component> <component> <observation moodCode="EVN" classCode="OBS"> <templateId root= "03.28.840.1.045352.10.20.22.4.2" /> <id nullFlavor="NA" /> < code codeSystem="local" code="CL" displayName="CHLORIDE" /> < statusCode code="completed" /> <effectiveTime value="115039118329" /> <value unit="mmol/L" xsi:type="PQ" value="108" /> < referenceRange> <observationRange> <text>98-110</text> </observationRange> </referenceRange> </observation> </component> <component> <observation moodCode="EVN" classCode ="OBS"> <templateId root="216.840.1.689763.10..22.4.2" /> < id nullFlavor="NA" /> <code codeSystem="local" code="CO2" displayName= "CARBON DIOXIDE" /> <statusCode code="completed" /> < effectiveTime value="110408893224" /> <value unit="mmol/L" xsi:type="PQ " value="27" /> <referenceRange> <observationRange> <text>21-32</text> </observationRange> </ referenceRange> </observation> </component> </organizer> </entry > <entry> <organizer moodCode="EVN" classCode="BATTERY"> <templateId root="216.840.1.215933.10..22.4.1" /> <id nullFlavor="NA" /> <code codeSystem="local" code="CBC" displayName="CBC" /> <statusCode code= "completed" /> <component> <observation moodCode="EVN" classCode= "OBS"> <templateId root="2.16.840.1.304084.10..22.4.2" /> < id nullFlavor="NA" /> <code codeSystem="local" code="MCH" displayName= "MEAN CELL HGB" /> <statusCode code="completed" /> < effectiveTime value="135974329201" /> <value unit="pg" xsi:type="PQ" value="28.4" /> <referenceRange> <observationRange> <text>27.0-33.0</text> </observationRange> </ referenceRange> </observation> </component> <component> <observation moodCode="EVN" classCode="OBS"> <templateId root= "03.28.840.1.554910.10.20.22.4.2" /> <id nullFlavor="NA" /> < code codeSystem="local" code="MCHC" displayName="MEAN CELL HGB CONCENTRATION" / > <statusCode code="completed" /> <effectiveTime value= "198949245172" /> <value unit="g/dL" xsi:type="PQ" value="30.7" /> <interpretationCode codeSystem="local" code="*" /> < referenceRange> <observationRange> <text>32.0-37.0</text > </observationRange> </referenceRange> </observation > </component> <component> <observation moodCode="EVN" classCode="OBS"> <templateId root="03.28.840.1.183512.10..4.2" /> <id nullFlavor="NA" /> <code codeSystem="local" code="MCV" displayName="MEAN CELL VOLUME" /> <statusCode code="completed" /> <effectiveTime value="369966907526" /> <value unit="fl" xsi:type= "PQ" value="92.5" /> <referenceRange> <observationRange> <text>80.0-100.0</text> </observationRange> </ referenceRange> </observation> </component> <component> <observation moodCode="EVN" classCode="OBS"> <templateId root= "03.28.840.1.161238.10.20.22.4.2" /> <id nullFlavor="NA" /> < code codeSystem="local" code="MPVT" displayName="MEAN PLATELET VOLUME" /> <statusCode code="completed" /> <effectiveTime value="962473470706 " /> <value unit="fl" xsi:type="PQ" value="10.0" /> < referenceRange> <observationRange> <text>8.5-10.9</text > </observationRange> </referenceRange> </observation > </component> <component> <observation moodCode="EVN" classCode="OBS"> <templateId root="216.840.1.387264.10.20.22.4.2" /> <id nullFlavor="NA" /> <code codeSystem="local" code="RBC" displayName="RED BLOOD CELL" /> <statusCode code="completed" /> <effectiveTime value="878285033459" /> <value unit="m/cumm" xsi:type ="PQ" value="2.92" /> <interpretationCode codeSystem="local" code="*" / > <referenceRange> <observationRange> <text> 4.00-6.00</text> </observationRange> </referenceRange> </observation> </component> <component> <observation moodCode="EVN" classCode="OBS"> <templateId root= "16.840.1.356082.10.22.4.2" /> <id nullFlavor="NA" /> < code codeSystem="local" code="RDW" displayName="RED CELL DISTRIBUTION WIDTH" /> <statusCode code="completed" /> <effectiveTime value= "377005106823" /> <value unit="%" xsi:type="PQ" value="15.9" /> <interpretationCode codeSystem="local" code="*" /> < referenceRange> <observationRange> <text>11.0-15.6</text > </observationRange> </referenceRange> </observation > </component> <component> <observation moodCode="EVN" classCode="OBS"> <templateId root="216.840.1.572009.10.20.22.4.2" /> <id nullFlavor="NA" /> <code codeSystem="local" code="WBC" displayName="WHITE BLOOD CELL" /> <statusCode code="completed" /> <effectiveTime value="324222140280" /> <value unit="k/cumm" xsi: type="PQ" value="8.3" /> <referenceRange> <observationRange > <text>5.0-10.0</text> </observationRange> </ referenceRange> </observation> </component> <component> <observation moodCode="EVN" classCode="OBS"> <templateId root= "2.16.840.1.097027.10.20.22.4.2" /> <id nullFlavor="NA" /> < code codeSystem="local" code="HGBT" displayName="HEMOGLOBIN" /> < statusCode code="completed" /> <effectiveTime value="150292591810" /> <value unit="gm/dL" xsi:type="PQ" value="8.3" /> < interpretationCode codeSystem="local" code="*" /> <referenceRange> <observationRange> <text>12.0-16.0</text> </ observationRange> </referenceRange> </observation> </ component> <component> <observation moodCode="EVN" classCode="OBS"> <templateId root="216.840.1.749784.10.20.22.4.2" /> <id nullFlavor="NA" /> <code codeSystem="local" code="HCTT" displayName= "HEMATOCRIT" /> <statusCode code="completed" /> < effectiveTime value="164471873238" /> <value unit="%" xsi:type="PQ " value="27.0" /> <interpretationCode codeSystem="local" code="*" /> <referenceRange> <observationRange> <text>37.0- 47.0</text> </observationRange> </referenceRange> </ observation> </component> <component> <observation moodCode= "EVN" classCode="OBS"> <templateId root="2.16.840.1.664618.10.22.4.2 " /> <id nullFlavor="NA" /> <code codeSystem="local" code= "NRBC%" displayName="NRBC %" /> <statusCode code="completed" / > <effectiveTime value="838621476803" /> <value unit="/100WBC " xsi:type="PQ" value="0.0" /> <referenceRange> < observationRange> <text>0.0-0.0</text> </ observationRange> </referenceRange> </observation> </ component> <component> <observation moodCode="EVN" classCode="OBS"> <templateId root="216.840.1.620108.11.29.21.4.2" /> <id nullFlavor="NA" /> <code codeSystem="local" code="PLTT" displayName= "PLATELET COUNT" /> <statusCode code="completed" /> < effectiveTime value="724108566881" /> <value unit="k/cumm" xsi:type="PQ " value="214" /> <referenceRange> <observationRange> <text>150-400</text> </observationRange> </ referenceRange> </observation> </component> </organizer> </entry > <entry> <organizer moodCode="EVN" classCode="BATTERY"> <templateId root="2.16.840.1.431714.10..4.1" /> <id nullFlavor="NA" /> <code codeSystem="local" code="PT" displayName="PROTHROMBIN TIME WITH INR" /> < statusCode code="completed" /> <component> <observation moodCode= "EVN" classCode="OBS"> <templateId root="216.840.1.329882.11.29.21.4.2 " /> <id nullFlavor="NA" /> <code codeSystem="local" code= "INRX" displayName="INTERNATIONAL NORMAL RATIO" /> <statusCode code= "completed" /> <effectiveTime value="938203423273" /> <value unit="" xsi:type="PQ" value="1.3" /> <interpretationCode codeSystem= "local" code="*" /> <referenceRange> <observationRange> <text>0.9-1.1</text> </observationRange> </ referenceRange> </observation> </component> <component> <observation moodCode="EVN" classCode="OBS"> <templateId root= "03.28.840.1.810663.11.29.21.4.2" /> <id nullFlavor="NA" /> < code codeSystem="local" code="PTPAT" displayName="PROTHROMBIN TIME" /> <statusCode code="completed" /> <effectiveTime value="" /> <value unit="sec" xsi:type="PQ" value="15.2" /> < interpretationCode codeSystem="local" code="*" /> <referenceRange> <observationRange> <text>10.0-12.8</text> </ observationRange> </referenceRange> </observation> </ component> </organizer> </entry> <entry> <organizer moodCode="EVN" classCode="BATTERY"> <templateId root="216.840.1.593882.11.29.21.4.1" /> <id nullFlavor="NA" /> <code codeSystem="local" code="METAB" displayName="METABOLIC PANEL, BASIC" /> <statusCode code="completed" /> <component> <observation moodCode="EVN" classCode="OBS"> < templateId root="216.840.1.922896.10..4.2" /> <id nullFlavor="NA " /> <code codeSystem="local" code="K" displayName="POTASSIUM" /> <statusCode code="completed" /> <effectiveTime value="469645019791 " /> <value unit="mmol/L" xsi:type="PQ" value="4.4" /> < referenceRange> <observationRange> <text>3.5-5.3</text> </observationRange> </referenceRange> </observation > </component> <component> <observation moodCode="EVN" classCode="OBS"> <templateId root="16.840.1.707260.11.29.21.4.2" /> <id nullFlavor="NA" /> <code codeSystem="local" code="eGFR" displayName="EST GFR (MDRD)" /> <statusCode code="completed" /> <effectiveTime value="000767512329" /> <value unit="mL/min" xsi:type ="PQ" value="> 60" /> <referenceRange> <observationRange > <text>> 59</text> </observationRange> </ referenceRange> </observation> </component> <component> <observation moodCode="EVN" classCode="OBS"> <templateId root= "03.28.840.1.108061.10...4.2" /> <id nullFlavor="NA" /> < code codeSystem="local" code="GAP" displayName="ANION GAP" /> < statusCode code="completed" /> <effectiveTime value="067100790766" /> <value unit="mmol/L" xsi:type="PQ" value="10" /> < referenceRange> <observationRange> <text>5-15</text> </observationRange> </referenceRange> </observation> </component> <component> <observation moodCode="EVN" classCode= "OBS"> <templateId root="216.840.1.725652.10..4.2" /> < id nullFlavor="NA" /> <code codeSystem="local" code="eCrCl" displayName ="EST CrCl (CG)" /> <statusCode code="completed" /> < effectiveTime value="206456148928" /> <value unit="mL/min" xsi:type="PQ " value="> 60" /> <referenceRange> <observationRange> <text>> 59</text> </observationRange> </ referenceRange> </observation> </component> <component> <observation moodCode="EVN" classCode="OBS"> <templateId root= "03.28.840.1.280097.10.4.2" /> <id nullFlavor="NA" /> < code codeSystem="local" code="GLU" displayName="GLUCOSE" /> < statusCode code="completed" /> <effectiveTime value="207493619162" /> <value unit="mg/dL" xsi:type="PQ" value="78" /> < referenceRange> <observationRange> <text>70-99</text> </observationRange> </referenceRange> </observation> </component> <component> <observation moodCode="EVN" classCode= "OBS"> <templateId root="03.28.840.1.024982.10.4.2" /> < id nullFlavor="NA" /> <code codeSystem="local" code="CA" displayName= "CALCIUM" /> <statusCode code="completed" /> <effectiveTime value="797623458463" /> <value unit="mg/dL" xsi:type="PQ" value="8.0" / > <interpretationCode codeSystem="local" code="*" /> < referenceRange> <observationRange> <text>8.5-10.1</text > </observationRange> </referenceRange> </observation > </component> <component> <observation moodCode="EVN" classCode="OBS"> <templateId root="216.840.1.088265.10..22.4.2" /> <id nullFlavor="NA" /> <code codeSystem="local" code="BUN" displayName="BLOOD UREA NITROGEN" /> <statusCode code="completed" /> <effectiveTime value="244476789502" /> <value unit="mg/dL" xsi: type="PQ" value="21" /> <interpretationCode codeSystem="local" code="* " /> <referenceRange> <observationRange> <text> 7-20</text> </observationRange> </referenceRange> </ observation> </component> <component> <observation moodCode= "EVN" classCode="OBS"> <templateId root="216.840.1.227400.10..22.4.2 " /> <id nullFlavor="NA" /> <code codeSystem="local" code= "CREAT" displayName="CREATININE" /> <statusCode code="completed" /> <effectiveTime value="392903079606" /> <value unit="mg/dL" xsi: type="PQ" value="0.7" /> <referenceRange> <observationRange > <text>0.6-1.0</text> </observationRange> </ referenceRange> </observation> </component> <component> <observation moodCode="EVN" classCode="OBS"> <templateId root= "03.28.840.1.529119.10.22.4.2" /> <id nullFlavor="NA" /> < code codeSystem="local" code="NA" displayName="SODIUM" /> <statusCode code="completed" /> <effectiveTime value="793876961215" /> < value unit="mmol/L" xsi:type="PQ" value="146" /> <referenceRange> <observationRange> <text>135-148</text> </ observationRange> </referenceRange> </observation> </ component> <component> <observation moodCode="EVN" classCode="OBS"> <templateId root="2.16.840.1.170886...4.2" /> <id nullFlavor="NA" /> <code codeSystem="local" code="CL" displayName= "CHLORIDE" /> <statusCode code="completed" /> <effectiveTime value="327810832297" /> <value unit="mmol/L" xsi:type="PQ" value="111" /> <interpretationCode codeSystem="local" code="*" /> < referenceRange> <observationRange> <text>98-110</text> </observationRange> </referenceRange> </observation> </component> <component> <observation moodCode="EVN" classCode ="OBS"> <templateId root="216.840.1.250503.11.29.21.4.2" /> < id nullFlavor="NA" /> <code codeSystem="local" code="CO2" displayName= "CARBON DIOXIDE" /> <statusCode code="completed" /> < effectiveTime value="074860984086" /> <value unit="mmol/L" xsi:type="PQ " value="25" /> <referenceRange> <observationRange> <text>21-32</text> </observationRange> </ referenceRange> </observation> </component> </organizer> </entry > <entry> <organizer moodCode="EVN" classCode="BATTERY"> <templateId root="03.28.840.1.486413.11.29.21.4.1" /> <id nullFlavor="NA" /> <code codeSystem="local" code="MAG" displayName="MAGNESIUM" /> <statusCode code= "completed" /> <component> <observation moodCode="EVN" classCode= "OBS"> <templateId root="840.1.790805.11.29.21.4.2" /> < id nullFlavor="NA" /> <code codeSystem="local" code="MAG" displayName= "MAGNESIUM" /> <statusCode code="completed" /> <effectiveTime value="171674018826" /> <value unit="mg/dL" xsi:type="PQ" value="2.2" / > <referenceRange> <observationRange> <text>1.8 -2.4</text> </observationRange> </referenceRange> </ observation> </component> </organizer> </entry> <entry> <organizer moodCode="EVN" classCode="BATTERY"> <templateId root= "840.1.713917.11.29.21.4.1" /> <id nullFlavor="NA" /> <code codeSystem="local" code="VTY0350" displayName="Protime " /> <statusCode code="completed" /> <component> <observation moodCode="EVN" classCode="OBS"> <templateId root="03.28.840.1.041118.11.29.21.4.2" /> <id nullFlavor="NA" /> <code codeSystem="local" code="Asj806" displayName="INR" /> <statusCode code="completed" /> < effectiveTime value="276723206862" /> <value unit="" xsi:type="PQ" value="1.4" /> <referenceRange> <observationRange> <text>1.0-4.0</text> </observationRange> </ referenceRange> </observation> </component> <component> <observation moodCode="EVN" classCode="OBS"> <templateId root= "216.840.1.175507.10.22.4.2" /> <id nullFlavor="NA" /> < code codeSystem="local" code="Mtj2912" displayName="Protime" /> < statusCode code="completed" /> <effectiveTime value="846319795246" /> <value unit="Sec" xsi:type="PQ" value="16.6" /> < interpretationCode codeSystem="local" code="H" /> <referenceRange> <observationRange> <text>9.9-12.8</text> </ observationRange> </referenceRange> </observation> </ component> </organizer> </entry> <entry> <organizer moodCode="EVN" classCode="BATTERY"> <templateId root="16.840.1.400338.10.22.4.1" /> <id nullFlavor="NA" /> <code codeSystem="local" code="02553-3" displayName="PT panel in platelet poor plasma by coagulation assay" /> < statusCode code="completed" /> <component> <observation moodCode= "EVN" classCode="OBS"> <templateId root="16.840.1.149588.10.20.22.4.2 " /> <id nullFlavor="NA" /> <code codeSystem="local" code= "5902-2" displayName="Prothrombin time (PT) in platelet poor plasma by coagulation assay" /> <statusCode code="completed" /> < effectiveTime value="753374980898" /> <value unit="s" xsi:type="PQ" value="15.8" /> <interpretationCode codeSystem="local" code="" /> <referenceRange> <observationRange> <text>12.2- 14.7</text> </observationRange> </referenceRange> </ observation> </component> <component> <observation moodCode= "EVN" classCode="OBS"> <templateId root="03.28.840.1.741423.10.20.22.4.2 " /> <id nullFlavor="NA" /> <code codeSystem="local" code= "71098-0" displayName="INR in platelet poor plasma or blood by coagulation assay " /> <statusCode code="completed" /> <effectiveTime value= "724106091815" /> <value unit="" xsi:type="PQ" value="1.3" /> <referenceRange> <observationRange> <text>0.8-1.4</text > </observationRange> </referenceRange> </observation > </component> </organizer> </entry> <entry> <organizer moodCode= "EVN" classCode="BATTERY"> <templateId root="03.28.840.1.919661.10.20.22.4.1 " /> <id nullFlavor="NA" /> <code codeSystem="local" code="38807-8" displayName="PT panel in platelet poor plasma by coagulation assay" /> < statusCode code="completed" /> <component> <observation moodCode= "EVN" classCode="OBS"> <templateId root="03.28.840.1.862299.10.20.22.4.2 " /> <id nullFlavor="NA" /> <code codeSystem="local" code= "5902-2" displayName="Prothrombin time (PT) in platelet poor plasma by coagulation assay" /> <statusCode code="completed" /> < effectiveTime value="278146967752" /> <value unit="s" xsi:type="PQ" value="14.5" /> <referenceRange> <observationRange> <text>12.2-14.7</text> </observationRange> </ referenceRange> </observation> </component> <component> <observation moodCode="EVN" classCode="OBS"> <templateId root= "216.840.1.122899.10.20.22.4.2" /> <id nullFlavor="NA" /> < code codeSystem="local" code="51079-5" displayName="INR in platelet poor plasma or blood by coagulation assay" /> <statusCode code="completed" /> <effectiveTime value="041624106419" /> <value unit="" xsi:type="PQ " value="1.1" /> <referenceRange> <observationRange> <text>0.8-1.4</text> </observationRange> </ referenceRange> </observation> </component> </organizer> </entry > <entry> <organizer moodCode="EVN" classCode="BATTERY"> <templateId root="16.840.1.617538.10.20.22.4.1" /> <id nullFlavor="NA" /> <code codeSystem="local" code="98557-8" displayName="PT panel in platelet poor plasma by coagulation assay" /> <statusCode code="completed" /> <component> <observation moodCode="EVN" classCode="OBS"> <templateId root= "03.28.840.1.807591.10.20.22.4.2" /> <id nullFlavor="NA" /> < code codeSystem="local" code="5902-2" displayName="Prothrombin time (PT) in platelet poor plasma by coagulation assay" /> <statusCode code= "completed" /> <effectiveTime value="595857707711" /> <value unit="s" xsi:type="PQ" value="15.3" /> <interpretationCode codeSystem= "local" code="" /> <referenceRange> <observationRange> <text>12.2-14.7</text> </observationRange> </ referenceRange> </observation> </component> <component> <observation moodCode="EVN" classCode="OBS"> <templateId root= "16.840.1.142583.10.2022.4.2" /> <id nullFlavor="NA" /> < code codeSystem="local" code="05480-1" displayName="INR in platelet poor plasma or blood by coagulation assay" /> <statusCode code="completed" /> <effectiveTime value="515362894514" /> <value unit="" xsi:type="PQ " value="1.2" /> <referenceRange> <observationRange> <text>0.8-1.4</text> </observationRange> </ referenceRange> </observation> </component> </organizer> </entry > <entry> <organizer moodCode="EVN" classCode="BATTERY"> <templateId root="03.28.840.1.892526.10.2022.4.1" /> <id nullFlavor="NA" /> <code codeSystem="local" code="28212-3" displayName="PT panel in platelet poor plasma by coagulation assay" /> <statusCode code="completed" /> <component> <observation moodCode="EVN" classCode="OBS"> <templateId root= "16.840.1.276695.10.20.22.4.2" /> <id nullFlavor="NA" /> < code codeSystem="local" code="5902-2" displayName="Prothrombin time (PT) in platelet poor plasma by coagulation assay" /> <statusCode code= "completed" /> <effectiveTime value="" /> <value unit="s" xsi:type="PQ" value="15.7" /> <interpretationCode codeSystem= "local" code="" /> <referenceRange> <observationRange> <text>12.2-14.7</text> </observationRange> </ referenceRange> </observation> </component> <component> <observation moodCode="EVN" classCode="OBS"> <templateId root= "216.840.1.518132.1022.4.2" /> <id nullFlavor="NA" /> < code codeSystem="local" code="05878-6" displayName="INR in platelet poor plasma or blood by coagulation assay" /> <statusCode code="completed" /> <effectiveTime value="" /> <value unit="" xsi:type="PQ " value="1.3" /> <referenceRange> <observationRange> <text>0.8-1.4</text> </observationRange> </ referenceRange> </observation> </component> </organizer> </entry > <entry> <organizer moodCode="EVN" classCode="BATTERY"> <templateId root="03.28.840.1.224257.102022.4.1" /> <id nullFlavor="NA" /> <code codeSystem="local" code="73581-0" displayName="PT panel in platelet poor plasma by coagulation assay" /> <statusCode code="completed" /> <component> <observation moodCode="EVN" classCode="OBS"> <templateId root= "16.840.1.348110.10.2022.4.2" /> <id nullFlavor="NA" /> < code codeSystem="local" code="5902-2" displayName="Prothrombin time (PT) in platelet poor plasma by coagulation assay" /> <statusCode code= "completed" /> <effectiveTime value="799763542005" /> <value unit="s" xsi:type="PQ" value="17.1" /> <interpretationCode codeSystem= "local" code="" /> <referenceRange> <observationRange> <text>12.2-14.7</text> </observationRange> </ referenceRange> </observation> </component> <component> <observation moodCode="EVN" classCode="OBS"> <templateId root= "03.28.840.1.440326.10.22.4.2" /> <id nullFlavor="NA" /> < code codeSystem="local" code="88834-0" displayName="INR in platelet poor plasma or blood by coagulation assay" /> <statusCode code="completed" /> <effectiveTime value="" /> <value unit="" xsi:type="PQ " value="1.4" /> <referenceRange> <observationRange> <text>0.8-1.4</text> </observationRange> </ referenceRange> </observation> </component> </organizer> </entry > <entry> <organizer moodCode="EVN" classCode="BATTERY"> <templateId root="03.28.840.1.201504.10.2022.4.1" /> <id nullFlavor="NA" /> <code codeSystem="local" code="47443-3" displayName="PT panel in platelet poor plasma by coagulation assay" /> <statusCode code="completed" /> <component> <observation moodCode="EVN" classCode="OBS"> <templateId root= "03.28.840.1.338935.11.29.21.4.2" /> <id nullFlavor="NA" /> < code codeSystem="local" code="5902-2" displayName="Prothrombin time (PT) in platelet poor plasma by coagulation assay" /> <statusCode code= "completed" /> <effectiveTime value="123303026085" /> <value unit="s" xsi:type="PQ" value="17.0" /> <interpretationCode codeSystem= "local" code="" /> <referenceRange> <observationRange> <text>12.2-14.7</text> </observationRange> </ referenceRange> </observation> </component> <component> <observation moodCode="EVN" classCode="OBS"> <templateId root= "216.840.1.668365.11.29.214.2" /> <id nullFlavor="NA" /> < code codeSystem="local" code="93636-1" displayName="INR in platelet poor plasma or blood by coagulation assay" /> <statusCode code="completed" /> <effectiveTime value="425219730550" /> <value unit="" xsi:type="PQ " value="1.4" /> <referenceRange> <observationRange> <text>0.8-1.4</text> </observationRange> </ referenceRange> </observation> </component> </organizer> </entry > <entry> <organizer moodCode="EVN" classCode="BATTERY"> <templateId root="216.840.1.821308.11.29.21.4.1" /> <id nullFlavor="NA" /> <code codeSystem="local" code="99719-8" displayName="PT panel in platelet poor plasma by coagulation assay" /> <statusCode code="completed" /> <component> <observation moodCode="EVN" classCode="OBS"> <templateId root= "216.840.1.894399.10..22.4.2" /> <id nullFlavor="NA" /> < code codeSystem="local" code="5902-2" displayName="Prothrombin time (PT) in platelet poor plasma by coagulation assay" /> <statusCode code= "completed" /> <effectiveTime value="225475090936" /> <value unit="s" xsi:type="PQ" value="19.3" /> <interpretationCode codeSystem= "local" code="" /> <referenceRange> <observationRange> <text>12.2-14.7</text> </observationRange> </ referenceRange> </observation> </component> <component> <observation moodCode="EVN" classCode="OBS"> <templateId root= "216.840.1.872247.10..4.2" /> <id nullFlavor="NA" /> < code codeSystem="local" code="10745-5" displayName="INR in platelet poor plasma or blood by coagulation assay" /> <statusCode code="completed" /> <effectiveTime value="705722690505" /> <value unit="" xsi:type="PQ " value="1.6" /> <interpretationCode codeSystem="local" code="" /> <referenceRange> <observationRange> <text>0.8- 1.4</text> </observationRange> </referenceRange> </ observation> </component> </organizer> </entry> <entry> <organizer moodCode="EVN" classCode="BATTERY"> <templateId root= "216.840.1.943127.10.2022.4.1" /> <id nullFlavor="NA" /> <code codeSystem="local" code="36194-9" displayName="PT panel in platelet poor plasma by coagulation assay" /> <statusCode code="completed" /> <component> <observation moodCode="EVN" classCode="OBS"> <templateId root= "16.840.1.717008.10..22.4.2" /> <id nullFlavor="NA" /> < code codeSystem="local" code="5902-2" displayName="Prothrombin time (PT) in platelet poor plasma by coagulation assay" /> <statusCode code= "completed" /> <effectiveTime value="044213111983" /> <value unit="s" xsi:type="PQ" value="19.0" /> <interpretationCode codeSystem= "local" code="" /> <referenceRange> <observationRange> <text>12.2-14.7</text> </observationRange> </ referenceRange> </observation> </component> <component> <observation moodCode="EVN" classCode="OBS"> <templateId root= "03.28.840.1.281650.10..22.4.2" /> <id nullFlavor="NA" /> < code codeSystem="local" code="15526-2" displayName="INR in platelet poor plasma or blood by coagulation assay" /> <statusCode code="completed" /> <effectiveTime value="820916536442" /> <value unit="" xsi:type="PQ " value="1.6" /> <interpretationCode codeSystem="local" code="" /> <referenceRange> <observationRange> <text>0.8- 1.4</text> </observationRange> </referenceRange> </ observation> </component> </organizer> </entry> <entry> <organizer moodCode="EVN" classCode="BATTERY"> <templateId root= "16.840.1.977563.10.20.22.4.1" /> <id nullFlavor="NA" /> <code codeSystem="local" code="46731-0" displayName="PT panel in platelet poor plasma by coagulation assay" /> <statusCode code="completed" /> <component> <observation moodCode="EVN" classCode="OBS"> <templateId root= "216.840.1.872736.10..22.4.2" /> <id nullFlavor="NA" /> < code codeSystem="local" code="5902-2" displayName="Prothrombin time (PT) in platelet poor plasma by coagulation assay" /> <statusCode code= "completed" /> <effectiveTime value="758718960519" /> <value unit="s" xsi:type="PQ" value="21.6" /> <interpretationCode codeSystem= "local" code="" /> <referenceRange> <observationRange> <text>12.2-14.7</text> </observationRange> </ referenceRange> </observation> </component> <component> <observation moodCode="EVN" classCode="OBS"> <templateId root= "216.840.1.234702.10...4.2" /> <id nullFlavor="NA" /> < code codeSystem="local" code="79298-1" displayName="INR in platelet poor plasma or blood by coagulation assay" /> <statusCode code="completed" /> <effectiveTime value="739406467295" /> <value unit="" xsi:type="PQ " value="1.9" /> <interpretationCode codeSystem="local" code="" /> <referenceRange> <observationRange> <text>0.8- 1.4</text> </observationRange> </referenceRange> </ observation> </component> </organizer> </entry> <entry> <organizer moodCode="EVN" classCode="BATTERY"> <templateId root= "216.840.1.946312..22.4.1" /> <id nullFlavor="NA" /> <code codeSystem="local" code="62719-8" displayName="PT panel in platelet poor plasma by coagulation assay" /> <statusCode code="completed" /> <component> <observation moodCode="EVN" classCode="OBS"> <templateId root= "2.16.840.1.358465.10..22.4.2" /> <id nullFlavor="NA" /> < code codeSystem="local" code="5902-2" displayName="Prothrombin time (PT) in platelet poor plasma by coagulation assay" /> <statusCode code= "completed" /> <effectiveTime value="891148327126" /> <value unit="s" xsi:type="PQ" value="25.6" /> <interpretationCode codeSystem= "local" code="" /> <referenceRange> <observationRange> <text>12.2-14.7</text> </observationRange> </ referenceRange> </observation> </component> <component> <observation moodCode="EVN" classCode="OBS"> <templateId root= "2.16.840.1.671327.10..22.4.2" /> <id nullFlavor="NA" /> < code codeSystem="local" code="54697-3" displayName="INR in platelet poor plasma or blood by coagulation assay" /> <statusCode code="completed" /> <effectiveTime value="082111450361" /> <value unit="" xsi:type="PQ " value="2.3" /> <interpretationCode codeSystem="local" code="" /> <referenceRange> <observationRange> <text>0.8- 1.4</text> </observationRange> </referenceRange> </ observation> </component> </organizer> </entry> <entry> <organizer moodCode="EVN" classCode="BATTERY"> <templateId root= "2.16.840.1.129548.10.20.22.4.1" /> <id nullFlavor="NA" /> <code codeSystem="local" code="91068-8" displayName="PT panel in platelet poor plasma by coagulation assay" /> <statusCode code="completed" /> <component> <observation moodCode="EVN" classCode="OBS"> <templateId root= "2.16.840.1.993567.10..22.4.2" /> <id nullFlavor="NA" /> < code codeSystem="local" code="5902-2" displayName="Prothrombin time (PT) in platelet poor plasma by coagulation assay" /> <statusCode code= "completed" /> <effectiveTime value="940646126698" /> <value unit="s" xsi:type="PQ" value="29.0" /> <interpretationCode codeSystem= "local" code="" /> <referenceRange> <observationRange> <text>12.2-14.7</text> </observationRange> </ referenceRange> </observation> </component> <component> <observation moodCode="EVN" classCode="OBS"> <templateId root= "2.16.840.1.572245.10..22.4.2" /> <id nullFlavor="NA" /> < code codeSystem="local" code="56329-4" displayName="INR in platelet poor plasma or blood by coagulation assay" /> <statusCode code="completed" /> <effectiveTime value="113282133869" /> <value unit="" xsi:type="PQ " value="2.7" /> <interpretationCode codeSystem="local" code="" /> <referenceRange> <observationRange> <text>0.8- 1.4</text> </observationRange> </referenceRange> </ observation> </component> </organizer> </entry> <entry> <organizer moodCode="EVN" classCode="BATTERY"> <templateId root= "216.840.1.928438.10..4.1" /> <id nullFlavor="NA" /> <code codeSystem="local" code="59847-0" displayName="PT panel in platelet poor plasma by coagulation assay" /> <statusCode code="completed" /> <component> <observation moodCode="EVN" classCode="OBS"> <templateId root= "216.840.1.319247.10...4.2" /> <id nullFlavor="NA" /> < code codeSystem="local" code="5902-2" displayName="Prothrombin time (PT) in platelet poor plasma by coagulation assay" /> <statusCode code= "completed" /> <effectiveTime value="710058280155" /> <value unit="s" xsi:type="PQ" value="28.2" /> <interpretationCode codeSystem= "local" code="" /> <referenceRange> <observationRange> <text>12.2-14.7</text> </observationRange> </ referenceRange> </observation> </component> <component> <observation moodCode="EVN" classCode="OBS"> <templateId root= "16.840.1.507203.10.22.4.2" /> <id nullFlavor="NA" /> < code codeSystem="local" code="23420-6" displayName="INR in platelet poor plasma or blood by coagulation assay" /> <statusCode code="completed" /> <effectiveTime value="737023045446" /> <value unit="" xsi:type="PQ " value="2.6" /> <interpretationCode codeSystem="local" code="" /> <referenceRange> <observationRange> <text>0.8- 1.4</text> </observationRange> </referenceRange> </ observation> </component> </organizer> </entry> <entry> <organizer moodCode="EVN" classCode="BATTERY"> <templateId root= "216.840.1.774685.10.20.22.4.1" /> <id nullFlavor="NA" /> <code codeSystem="local" code="41242-7" displayName="Complete blood count (CBC) with automated white blood cell (WBC) differential" /> <statusCode code= "completed" /> <component> <observation moodCode="EVN" classCode= "OBS"> <templateId root="216.840.1.122557.10.20.22.4.2" /> < id nullFlavor="NA" /> <code codeSystem="local" code="6690-2" displayName="Blood leukocytes automated count (number/volume)" /> < statusCode code="completed" /> <effectiveTime value="370120803241" /> <value unit="10*3/uL" xsi:type="PQ" value="6.2" /> < referenceRange> <observationRange> <text>4.3-11.0</text > </observationRange> </referenceRange> </observation > </component> <component> <observation moodCode="EVN" classCode="OBS"> <templateId root="16.840.1.726433.10.20.22.4.2" /> <id nullFlavor="NA" /> <code codeSystem="local" code="789-8" displayName="Blood erythrocytes automated count (number/volume)" /> < statusCode code="completed" /> <effectiveTime value="718339047290" /> <value unit="10*6/uL" xsi:type="PQ" value="2.92" /> < interpretationCode codeSystem="local" code="" /> <referenceRange> <observationRange> <text>4.35-5.85</text> </ observationRange> </referenceRange> </observation> </ component> <component> <observation moodCode="EVN" classCode="OBS"> <templateId root="2.16.840.1.402488.10.20.22.4.2" /> <id nullFlavor="NA" /> <code codeSystem="local" code="21369-1" displayName= "Venous blood hemoglobin measurement (mass/volume)" /> <statusCode code ="completed" /> <effectiveTime value="895547330368" /> <value unit="g/dL" xsi:type="PQ" value="8.2" /> <interpretationCode codeSystem ="local" code="" /> <referenceRange> <observationRange> <text>11.5-16.0</text> </observationRange> </ referenceRange> </observation> </component> <component> <observation moodCode="EVN" classCode="OBS"> <templateId root= "2.16.840.1.054612.10.20.22.4.2" /> <id nullFlavor="NA" /> < code codeSystem="local" code="79346-6" displayName="Blood hematocrit (volume fraction)" /> <statusCode code="completed" /> <effectiveTime value="570706138863" /> <value unit="%" xsi:type="PQ" value="28" / > <interpretationCode codeSystem="local" code="" /> < referenceRange> <observationRange> <text>35-52</text> </observationRange> </referenceRange> </observation> </component> <component> <observation moodCode="EVN" classCode= "OBS"> <templateId root="2.16.840.1.325766.10.20.22.4.2" /> < id nullFlavor="NA" /> <code codeSystem="local" code="787-2" displayName ="Automated erythrocyte mean corpuscular volume" /> <statusCode code= "completed" /> <effectiveTime value="" /> <value unit="[foz_us]" xsi:type="PQ" value="94" /> <referenceRange> <observationRange> <text>80-99</text> </ observationRange> </referenceRange> </observation> </ component> <component> <observation moodCode="EVN" classCode="OBS"> <templateId root="216.840.1.597280.10..22.4.2" /> <id nullFlavor="NA" /> <code codeSystem="local" code="785-6" displayName= "Automated erythrocyte mean corpuscular hemoglobin (mass per erythrocyte)" /> <statusCode code="completed" /> <effectiveTime value= "" /> <value unit="pg" xsi:type="PQ" value="28" /> <referenceRange> <observationRange> <text>25-34</text > </observationRange> </referenceRange> </observation > </component> <component> <observation moodCode="EVN" classCode="OBS"> <templateId root="16.840.1.560756.10.20.22.4.2" /> <id nullFlavor="NA" /> <code codeSystem="local" code="786-4" displayName="Automated erythrocyte mean corpuscular hemoglobin concentration measurement (mass/volume)" /> <statusCode code="completed" /> <effectiveTime value="" /> <value unit="g/dL" xsi:type="PQ " value="30" /> <interpretationCode codeSystem="local" code="" /> <referenceRange> <observationRange> <text>32-36</ text> </observationRange> </referenceRange> </ observation> </component> <component> <observation moodCode= "EVN" classCode="OBS"> <templateId root="2.16.840.1.847780.10..22.4.2 " /> <id nullFlavor="NA" /> <code codeSystem="local" code="788 -0" displayName="Automated erythrocyte distribution width ratio" /> < statusCode code="completed" /> <effectiveTime value="617246475905" /> <value unit="%" xsi:type="PQ" value="16.0" /> < interpretationCode codeSystem="local" code="" /> <referenceRange> <observationRange> <text>10.0-14.5</text> </ observationRange> </referenceRange> </observation> </ component> <component> <observation moodCode="EVN" classCode="OBS"> <templateId root="216.840.1.820829...4.2" /> <id nullFlavor="NA" /> <code codeSystem="local" code="777-3" displayName= "Automated blood platelet count (count/volume)" /> <statusCode code= "completed" /> <effectiveTime value="337329544750" /> <value unit="10*3/uL" xsi:type="PQ" value="275" /> <referenceRange> <observationRange> <text>130-400</text> </ observationRange> </referenceRange> </observation> </ component> <component> <observation moodCode="EVN" classCode="OBS"> <templateId root="216.840.1.970148.11.29.21.4.2" /> <id nullFlavor="NA" /> <code codeSystem="local" code="53248-8" displayName= "Automated blood platelet mean volume measurement" /> <statusCode code= "completed" /> <effectiveTime value="382502752046" /> <value unit="[foz_us]" xsi:type="PQ" value="10.5" /> <interpretationCode codeSystem="local" code="" /> <referenceRange> < observationRange> <text>7.4-10.4</text> </ observationRange> </referenceRange> </observation> </ component> <component> <observation moodCode="EVN" classCode="OBS"> <templateId root="2.16.840.1.766260.11.29.21.4.2" /> <id nullFlavor="NA" /> <code codeSystem="local" code="770-8" displayName= "Automated blood neutrophils/100 leukocytes" /> <statusCode code= "completed" /> <effectiveTime value="" /> <value unit="%" xsi:type="PQ" value="45" /> <referenceRange> < observationRange> <text>42-75</text> </observationRange > </referenceRange> </observation> </component> < component> <observation moodCode="EVN" classCode="OBS"> < templateId root="2.16.840.1.725671.10.4.2" /> <id nullFlavor="NA " /> <code codeSystem="local" code="736-9" displayName="Automated blood lymphocytes/100 leukocytes" /> <statusCode code="completed" /> <effectiveTime value="767828344388" /> <value unit="%" xsi: type="PQ" value="40" /> <referenceRange> <observationRange> <text>12-44</text> </observationRange> </ referenceRange> </observation> </component> <component> <observation moodCode="EVN" classCode="OBS"> <templateId root= "2.16.840.1.975255.10..22.4.2" /> <id nullFlavor="NA" /> < code codeSystem="local" code="87748-1" displayName="Blood monocytes/100 leukocytes" /> <statusCode code="completed" /> <effectiveTime value="" /> <value unit="%" xsi:type="PQ" value="9" /> <referenceRange> <observationRange> <text>0-12 </text> </observationRange> </referenceRange> </ observation> </component> <component> <observation moodCode= "EVN" classCode="OBS"> <templateId root="216.840.1.821328.10..4.2 " /> <id nullFlavor="NA" /> <code codeSystem="local" code="713 -8" displayName="Automated blood eosinophils/100 leukocytes" /> < statusCode code="completed" /> <effectiveTime value="864013605498" /> <value unit="%" xsi:type="PQ" value="6" /> <referenceRange > <observationRange> <text>0-10</text> </ observationRange> </referenceRange> </observation> </ component> <component> <observation moodCode="EVN" classCode="OBS"> <templateId root="2.16.840.1.530024.10..22.4.2" /> <id nullFlavor="NA" /> <code codeSystem="local" code="706-2" displayName= "Automated blood basophils/100 leukocytes" /> <statusCode code= "completed" /> <effectiveTime value="496515119543" /> <value unit="%" xsi:type="PQ" value="1" /> <referenceRange> < observationRange> <text>0-10</text> </observationRange> </referenceRange> </observation> </component> < component> <observation moodCode="EVN" classCode="OBS"> < templateId root="2.16.840.1.172623.10.20.22.4.2" /> <id nullFlavor="NA " /> <code codeSystem="local" code="751-8" displayName="Blood neutrophils automated count (number/volume)" /> <statusCode code= "completed" /> <effectiveTime value="293499016703" /> <value unit="10*3" xsi:type="PQ" value="2.8" /> <referenceRange> < observationRange> <text>1.8-7.8</text> </ observationRange> </referenceRange> </observation> </ component> <component> <observation moodCode="EVN" classCode="OBS"> <templateId root="2.16.840.1.494553.10..22.4.2" /> <id nullFlavor="NA" /> <code codeSystem="local" code="731-0" displayName= "Blood lymphocytes automated count (number/volume)" /> <statusCode code ="completed" /> <effectiveTime value="" /> <value unit="10*3" xsi:type="PQ" value="2.5" /> <referenceRange> < observationRange> <text>1.0-4.0</text> </ observationRange> </referenceRange> </observation> </ component> <component> <observation moodCode="EVN" classCode="OBS"> <templateId root="2.16.840.1.431739.10.20.22.4.2" /> <id nullFlavor="NA" /> <code codeSystem="local" code="742-7" displayName= "Blood monocytes automated count (number/volume)" /> <statusCode code= "completed" /> <effectiveTime value="845889812866" /> <value unit="10*3" xsi:type="PQ" value="0.5" /> <referenceRange> < observationRange> <text>0.0-1.0</text> </ observationRange> </referenceRange> </observation> </ component> <component> <observation moodCode="EVN" classCode="OBS"> <templateId root="2.16.840.1.827943.104.2" /> <id nullFlavor="NA" /> <code codeSystem="local" code="711-2" displayName= "Automated eosinophil count" /> <statusCode code="completed" /> <effectiveTime value="" /> <value unit="10*3/uL" xsi: type="PQ" value="0.4" /> <interpretationCode codeSystem="local" code="* *" /> <referenceRange> <observationRange> <text >0.0-0.3</text> </observationRange> </referenceRange> </observation> </component> <component> <observation moodCode ="EVN" classCode="OBS"> <templateId root= "2.16.840.1.025385.1022.4.2" /> <id nullFlavor="NA" /> < code codeSystem="local" code="704-7" displayName="Automated blood basophil count (count/volume)" /> <statusCode code="completed" /> < effectiveTime value="" /> <value unit="10*3/uL" xsi:type= "PQ" value="0.1" /> <referenceRange> <observationRange> <text>0.0-0.1</text> </observationRange> </ referenceRange> </observation> </component> </organizer> </entry > <entry> <organizer moodCode="EVN" classCode="BATTERY"> <templateId root="16.840.1.184363.10.20.22.4.1" /> <id nullFlavor="NA" /> <code codeSystem="local" code="38150-5" displayName="PT panel in platelet poor plasma by coagulation assay" /> <statusCode code="completed" /> <component> <observation moodCode="EVN" classCode="OBS"> <templateId root= "216.840.1.704569.10..22.4.2" /> <id nullFlavor="NA" /> < code codeSystem="local" code="5902-2" displayName="Prothrombin time (PT) in platelet poor plasma by coagulation assay" /> <statusCode code= "completed" /> <effectiveTime value="911351277355" /> <value unit="s" xsi:type="PQ" value="31.1" /> <interpretationCode codeSystem= "local" code="" /> <referenceRange> <observationRange> <text>12.2-14.7</text> </observationRange> </ referenceRange> </observation> </component> <component> <observation moodCode="EVN" classCode="OBS"> <templateId root= "03.28.840.1.494095.10.20.22.4.2" /> <id nullFlavor="NA" /> < code codeSystem="local" code="24624-5" displayName="INR in platelet poor plasma or blood by coagulation assay" /> <statusCode code="completed" /> <effectiveTime value="039456450875" /> <value unit="" xsi:type="PQ " value="3.0" /> <interpretationCode codeSystem="local" code="" /> <referenceRange> <observationRange> <text>0.8- 1.4</text> </observationRange> </referenceRange> </ observation> </component> </organizer> </entry> <entry> <organizer moodCode="EVN" classCode="BATTERY"> <templateId root= "216.840.1.551170.10..22.4.1" /> <id nullFlavor="NA" /> <code codeSystem="local" code="20146-2" displayName="Comprehensive metabolic panel" / > <statusCode code="completed" /> <component> <observation moodCode="EVN" classCode="OBS"> <templateId root= "216.840.1.478344.10..22.4.2" /> <id nullFlavor="NA" /> < code codeSystem="local" code="2951-2" displayName="Serum or plasma sodium measurement (moles/volume)" /> <statusCode code="completed" /> <effectiveTime value="" /> <value unit="mmol/L" xsi:type= "PQ" value="141" /> <referenceRange> <observationRange> <text>135-145</text> </observationRange> </ referenceRange> </observation> </component> <component> <observation moodCode="EVN" classCode="OBS"> <templateId root= "16.840.1.650657.10..22.4.2" /> <id nullFlavor="NA" /> < code codeSystem="local" code="2823-3" displayName="Serum or plasma potassium measurement (moles/volume)" /> <statusCode code="completed" /> <effectiveTime value="448352475568" /> <value unit="mmol/L" xsi:type= "PQ" value="4.1" /> <referenceRange> <observationRange> <text>3.6-5.0</text> </observationRange> </ referenceRange> </observation> </component> <component> <observation moodCode="EVN" classCode="OBS"> <templateId root= "16.840.1.760971.10.20.22.4.2" /> <id nullFlavor="NA" /> < code codeSystem="local" code="" displayName="Serum or plasma chloride measurement (moles/volume)" /> <statusCode code="completed" /> <effectiveTime value="251757430466" /> <value unit="mmol/L" xsi:type= "PQ" value="106" /> <referenceRange> <observationRange> <text>98-107</text> </observationRange> </ referenceRange> </observation> </component> <component> <observation moodCode="EVN" classCode="OBS"> <templateId root= "03.28.840.1.532452.10..22.4.2" /> <id nullFlavor="NA" /> < code codeSystem="local" code="2027-10" displayName="Carbon dioxide" /> < statusCode code="completed" /> <effectiveTime value="899936790419" /> <value unit="mmol/L" xsi:type="PQ" value="25" /> < referenceRange> <observationRange> <text>21-32</text> </observationRange> </referenceRange> </observation> </component> <component> <observation moodCode="EVN" classCode= "OBS"> <templateId root="03.28.840.1.362323.10.20.22.4.2" /> < id nullFlavor="NA" /> <code codeSystem="local" code="94592-6" displayName="Serum or plasma anion gap determination (moles/volume)" /> <statusCode code="completed" /> <effectiveTime value="418124113147" / > <value unit="mmol/L" xsi:type="PQ" value="10" /> < referenceRange> <observationRange> <text>5-14</text> </observationRange> </referenceRange> </observation> </component> <component> <observation moodCode="EVN" classCode= "OBS"> <templateId root="2.16.840.1.387203.10.20.22.4.2" /> < id nullFlavor="NA" /> <code codeSystem="local" code="3094-0" displayName="Serum or plasma urea nitrogen measurement (mass/volume)" /> <statusCode code="completed" /> <effectiveTime value="718001936226" /> <value unit="mg/dL" xsi:type="PQ" value="25" /> < interpretationCode codeSystem="local" code="" /> <referenceRange> <observationRange> <text>7-18</text> </ observationRange> </referenceRange> </observation> </ component> <component> <observation moodCode="EVN" classCode="OBS"> <templateId root="2.16.840.1.427735.10.20.22.4.2" /> <id nullFlavor="NA" /> <code codeSystem="local" code="2160-0" displayName= "Serum or plasma creatinine measurement (mass/volume)" /> <statusCode code="completed" /> <effectiveTime value="083426970767" /> < value unit="mg/dL" xsi:type="PQ" value="0.70" /> <referenceRange> <observationRange> <text>0.60-1.30</text> </ observationRange> </referenceRange> </observation> </ component> <component> <observation moodCode="EVN" classCode="OBS"> <templateId root="2.16.840.1.987243.10..22.4.2" /> <id nullFlavor="NA" /> <code codeSystem="local" code="3097-3" displayName= "Serum or plasma urea nitrogen/creatinine mass ratio" /> <statusCode code="completed" /> <effectiveTime value="" /> < value unit="" xsi:type="PQ" value="36" /> <referenceRange> < observationRange> <text>NRG</text> </observationRange> </referenceRange> </observation> </component> < component> <observation moodCode="EVN" classCode="OBS"> < templateId root="216.840.1.059403.10...4.2" /> <id nullFlavor="NA " /> <code codeSystem="local" code="64727-7" displayName="Serum or plasma creatinine measurement with calculation of estimated glomerular filtration rate" /> <statusCode code="completed" /> < effectiveTime value="" /> <value unit="" xsi:type="PQ" value=">" /> <referenceRange> <observationRange> <text>NRG</text> </observationRange> </referenceRange > </observation> </component> <component> <observation moodCode="EVN" classCode="OBS"> <templateId root= "216.840.1.310884.10..22.4.2" /> <id nullFlavor="NA" /> < code codeSystem="local" code="2345-7" displayName="Serum or plasma glucose measurement (mass/volume)" /> <statusCode code="completed" /> <effectiveTime value="" /> <value unit="mg/dL" xsi:type="PQ " value="84" /> <referenceRange> <observationRange> <text>70-105</text> </observationRange> </ referenceRange> </observation> </component> <component> <observation moodCode="EVN" classCode="OBS"> <templateId root= "2.16.840.1.552106.10.20.22.4.2" /> <id nullFlavor="NA" /> < code codeSystem="local" code="42515-1" displayName="Serum or plasma calcium measurement (mass/volume)" /> <statusCode code="completed" /> <effectiveTime value="726606558344" /> <value unit="mg/dL" xsi:type="PQ " value="8.3" /> <interpretationCode codeSystem="local" code="" /> <referenceRange> <observationRange> <text>8.5- 10.1</text> </observationRange> </referenceRange> </ observation> </component> <component> <observation moodCode= "EVN" classCode="OBS"> <templateId root="216.840.1.153839.10..22.4.2 " /> <id nullFlavor="NA" /> <code codeSystem="local" code= "1975" displayName="Serum or plasma total bilirubin measurement (mass/volume) " /> <statusCode code="completed" /> <effectiveTime value= "089592118790" /> <value unit="mg/dL" xsi:type="PQ" value="0.2" /> <referenceRange> <observationRange> <text>0.1-1.0< /text> </observationRange> </referenceRange> </ observation> </component> <component> <observation moodCode= "EVN" classCode="OBS"> <templateId root="2.16.840.1.697966.10.20.22.4.2 " /> <id nullFlavor="NA" /> <code codeSystem="local" code= "6768-" displayName="Serum or plasma alkaline phosphatase measurement ( enzymatic activity/volume)" /> <statusCode code="completed" /> <effectiveTime value="" /> <value unit="U/L" xsi:type="PQ " value="132" /> <referenceRange> <observationRange> <text>40-136</text> </observationRange> </ referenceRange> </observation> </component> <component> <observation moodCode="EVN" classCode="OBS"> <templateId root= "2.16.840.1.996743.10..22.4.2" /> <id nullFlavor="NA" /> < code codeSystem="local" code="192" displayName="Serum or plasma aspartate aminotransferase measurement (enzymatic activity/volume)" /> < statusCode code="completed" /> <effectiveTime value="" /> <value unit="U/L" xsi:type="PQ" value="14" /> <referenceRange > <observationRange> <text>5-34</text> </ observationRange> </referenceRange> </observation> </ component> <component> <observation moodCode="EVN" classCode="OBS"> <templateId root="2.16.840.1.784028.10..22.4.2" /> <id nullFlavor="NA" /> <code codeSystem="local" code="17403-18" displayName= "Serum or plasma alanine aminotransferase measurement (enzymatic activity/volume )" /> <statusCode code="completed" /> <effectiveTime value= "506221950724" /> <value unit="U/L" xsi:type="PQ" value="12" /> <referenceRange> <observationRange> <text>0-55</text > </observationRange> </referenceRange> </observation > </component> <component> <observation moodCode="EVN" classCode="OBS"> <templateId root="16.840.1.334898.10.22.4.2" /> <id nullFlavor="NA" /> <code codeSystem="local" code="2885-2" displayName="Serum or plasma protein measurement (mass/volume)" /> < statusCode code="completed" /> <effectiveTime value="" /> <value unit="g/dL" xsi:type="PQ" value="5.6" /> < interpretationCode codeSystem="local" code="" /> <referenceRange> <observationRange> <text>6.4-8.2</text> </ observationRange> </referenceRange> </observation> </ component> <component> <observation moodCode="EVN" classCode="OBS"> <templateId root="03.28.840.1.934191.10.22.4.2" /> <id nullFlavor="NA" /> <code codeSystem="local" code="1751-7" displayName= "Serum or plasma albumin measurement (mass/volume)" /> <statusCode code ="completed" /> <effectiveTime value="398249019833" /> <value unit="g/dL" xsi:type="PQ" value="3.2" /> <referenceRange> < observationRange> <text>3.2-4.5</text> </ observationRange> </referenceRange> </observation> </ component> <component> <observation moodCode="EVN" classCode="OBS"> <templateId root="16.840.1.656510.10.20.22.4.2" /> <id nullFlavor="NA" /> <code codeSystem="local" code="CALCIUMCORR" displayName="CALCIUM CORRECTED" /> <statusCode code="completed" /> <effectiveTime value="377957133918" /> <value unit="mg/dL" xsi: type="PQ" value="8.9" /> <referenceRange> <observationRange > <text>8.5-10.1</text> </observationRange> </ referenceRange> </observation> </component> </organizer> </entry > <entry> <organizer moodCode="EVN" classCode="BATTERY"> <templateId root="216.840.1.709634.10.20.22.4.1" /> <id nullFlavor="NA" /> <code codeSystem="local" code="IRON" displayName="IRON TEST" /> <statusCode code= "completed" /> <component> <observation moodCode="EVN" classCode= "OBS"> <templateId root="216.840.1.797508.10..22.4.2" /> < id nullFlavor="NA" /> <code codeSystem="local" code="2498-4" displayName="Serum or plasma iron measurement (mass/volume)" /> < statusCode code="completed" /> <effectiveTime value="417406273194" /> <value unit="%" xsi:type="PQ" value="30" /> < interpretationCode codeSystem="local" code="" /> <referenceRange> <observationRange> <text>35-180</text> </ observationRange> </referenceRange> </observation> </ component> </organizer> </entry> <entry> <organizer moodCode="EVN" classCode="BATTERY"> <templateId root="16.840.1.454583.10.20.22.4.1" /> <id nullFlavor="NA" /> <code codeSystem="local" code="64742-6" displayName="PT panel in platelet poor plasma by coagulation assay" /> < statusCode code="completed" /> <component> <observation moodCode= "EVN" classCode="OBS"> <templateId root="16.840.1.206492.10..4.2 " /> <id nullFlavor="NA" /> <code codeSystem="local" code= "5902-2" displayName="Prothrombin time (PT) in platelet poor plasma by coagulation assay" /> <statusCode code="completed" /> < effectiveTime value="876834115936" /> <value unit="s" xsi:type="PQ" value="27.0" /> <interpretationCode codeSystem="local" code="" /> <referenceRange> <observationRange> <text>12.2- 14.7</text> </observationRange> </referenceRange> </ observation> </component> <component> <observation moodCode= "EVN" classCode="OBS"> <templateId root="03.28.840.1.677514.10.22.4.2 " /> <id nullFlavor="NA" /> <code codeSystem="local" code= "73867-3" displayName="INR in platelet poor plasma or blood by coagulation assay " /> <statusCode code="completed" /> <effectiveTime value= "934315278144" /> <value unit="" xsi:type="PQ" value="2.5" /> <interpretationCode codeSystem="local" code="" /> <referenceRange> <observationRange> <text>0.8-1.4</text> </ observationRange> </referenceRange> </observation> </ component> </organizer> </entry> <entry> <organizer moodCode="EVN" classCode="BATTERY"> <templateId root="216.840.1.694892.10.2022.4.1" /> <id nullFlavor="NA" /> <code codeSystem="local" code="06835-6" displayName="PT panel in platelet poor plasma by coagulation assay" /> < statusCode code="completed" /> <component> <observation moodCode= "EVN" classCode="OBS"> <templateId root="2.16.840.1.122376.10..22.4.2 " /> <id nullFlavor="NA" /> <code codeSystem="local" code= "5902-2" displayName="Prothrombin time (PT) in platelet poor plasma by coagulation assay" /> <statusCode code="completed" /> < effectiveTime value="217061811969" /> <value unit="s" xsi:type="PQ" value="22.6" /> <interpretationCode codeSystem="local" code="" /> <referenceRange> <observationRange> <text>12.2- 14.7</text> </observationRange> </referenceRange> </ observation> </component> <component> <observation moodCode= "EVN" classCode="OBS"> <templateId root="2.16.840.1.171597.10..22.4.2 " /> <id nullFlavor="NA" /> <code codeSystem="local" code= "13589-6" displayName="INR in platelet poor plasma or blood by coagulation assay " /> <statusCode code="completed" /> <effectiveTime value= "826052039449" /> <value unit="" xsi:type="PQ" value="2.0" /> <interpretationCode codeSystem="local" code="" /> <referenceRange> <observationRange> <text>0.8-1.4</text> </ observationRange> </referenceRange> </observation> </ component> </organizer> </entry> <entry> <organizer moodCode="EVN" classCode="BATTERY"> <templateId root="216.840.1.394814.10.22.4.1" /> <id nullFlavor="NA" /> <code codeSystem="local" code="[id number]" displayName="Protime " /> <statusCode code="completed" /> <component> <observation moodCode="EVN" classCode="OBS"> <templateId root= "03.28.840.1.455802.11.29.21.4.2" /> <id nullFlavor="NA" /> < code codeSystem="local" code="Dyw760" displayName="INR" /> <statusCode code="completed" /> <effectiveTime value="570168860475" /> < value unit="" xsi:type="PQ" value="1.5" /> <referenceRange> <observationRange> <text>1.0-4.0</text> </ observationRange> </referenceRange> </observation> </ component> <component> <observation moodCode="EVN" classCode="OBS"> <templateId root="216.840.1.780068.11.29.21.4.2" /> <id nullFlavor="NA" /> <code codeSystem="local" code="Fly1822" displayName= "Protime" /> <statusCode code="completed" /> <effectiveTime value="169737329754" /> <value unit="Sec" xsi:type="PQ" value="17.5" / > <interpretationCode codeSystem="local" code="H" /> < referenceRange> <observationRange> <text>9.9-12.8</text > </observationRange> </referenceRange> </observation > </component> </organizer> </entry> <entry> <organizer moodCode= "EVN" classCode="BATTERY"> <templateId root="16.840.1.189930....4.1 " /> <id nullFlavor="NA" /> <code codeSystem="local" code="CMX1643" displayName="Protime " /> <statusCode code="completed" /> <component> <observation moodCode="EVN" classCode="OBS"> <templateId root= "03.28.840.1.527141.11.29.21.4.2" /> <id nullFlavor="NA" /> < code codeSystem="local" code="Dhf426" displayName="INR" /> <statusCode code="completed" /> <effectiveTime value="" /> < value unit="" xsi:type="PQ" value="1.2" /> <referenceRange> <observationRange> <text>1.0-4.0</text> </ observationRange> </referenceRange> </observation> </ component> <component> <observation moodCode="EVN" classCode="OBS"> <templateId root="216.840.1.954932.11.29.21.4.2" /> <id nullFlavor="NA" /> <code codeSystem="local" code="Faa1985" displayName= "Protime" /> <statusCode code="completed" /> <effectiveTime value="" /> <value unit="Sec" xsi:type="PQ" value="14.4" / > <interpretationCode codeSystem="local" code="H" /> < referenceRange> <observationRange> <text>9.9-12.8</text > </observationRange> </referenceRange> </observation > </component> </organizer> </entry> <entry> <organizer moodCode= "EVN" classCode="BATTERY"> <templateId root="216.840.1.346278.11.29.21.4.1 " /> <id nullFlavor="NA" /> <code codeSystem="local" code="[id number]" displayName="Protime " /> <statusCode code="completed" /> <component> <observation moodCode="EVN" classCode="OBS"> <templateId root= "216.840.1.282112.11.29.21.4.2" /> <id nullFlavor="NA" /> < code codeSystem="local" code="Izg073" displayName="INR" /> <statusCode code="completed" /> <effectiveTime value="[id number]" /> < value unit="" xsi:type="PQ" value="1.2" /> <referenceRange> <observationRange> <text>1.0-4.0</text> </ observationRange> </referenceRange> </observation> </ component> <component> <observation moodCode="EVN" classCode="OBS"> <templateId root="03.28.840.1.482377.11.29.21.4.2" /> <id nullFlavor="NA" /> <code codeSystem="local" code="Vwy3394" displayName= "Protime" /> <statusCode code="completed" /> <effectiveTime value="[id number]" /> <value unit="Sec" xsi:type="PQ" value="13.5" / > <interpretationCode codeSystem="local" code="H" /> < referenceRange> <observationRange> <text>9.9-12.8</text > </observationRange> </referenceRange> </observation > </component> </organizer> </entry> <entry> <organizer moodCode= "EVN" classCode="BATTERY"> <templateId root="16.840.1.580226.11.29.21.4.1 " /> <id nullFlavor="NA" /> <code codeSystem="local" code="[id number]" displayName="Protime " /> <statusCode code="completed" /> <component> <observation moodCode="EVN" classCode="OBS"> <templateId root= "03.28.840.1.582695.10.20.22.4.2" /> <id nullFlavor="NA" /> < code codeSystem="local" code="Kmc336" displayName="INR" /> <statusCode code="completed" /> <effectiveTime value="" /> < value unit="" xsi:type="PQ" value="1.6" /> <referenceRange> <observationRange> <text>1.0-4.0</text> </ observationRange> </referenceRange> </observation> </ component> <component> <observation moodCode="EVN" classCode="OBS"> <templateId root="840.1.561021.10.22.4.2" /> <id nullFlavor="NA" /> <code codeSystem="local" code="Hna3675" displayName= "Protime" /> <statusCode code="completed" /> <effectiveTime value="[id number]" /> <value unit="Sec" xsi:type="PQ" value="19.2" / > <interpretationCode codeSystem="local" code="H" /> < referenceRange> <observationRange> <text>9.9-12.8</text > </observationRange> </referenceRange> </observation > </component> </organizer> </entry> <entry> <organizer moodCode= "EVN" classCode="BATTERY"> <templateId root="03.28.840.1.471870.10.20.22.4.1 " /> <id nullFlavor="NA" /> <code codeSystem="local" code="ORD68" displayName="Urinalysis" /> <statusCode code="completed" /> <component > <observation moodCode="EVN" classCode="OBS"> <templateId root= "216.840.1.282665.11.29.21.4.2" /> <id nullFlavor="NA" /> < code codeSystem="local" code="Hzp4765" displayName="Icotest" /> < statusCode code="completed" /> <effectiveTime value="" /> <value unit="" xsi:type="PQ" value="N/A" /> < interpretationCode codeSystem="local" code="A" /> <referenceRange> <observationRange> <text>Negative</text> </ observationRange> </referenceRange> </observation> </ component> <component> <observation moodCode="EVN" classCode="OBS"> <templateId root="03.28.840.1.196847.11.29.214.2" /> <id nullFlavor="NA" /> <code codeSystem="local" code="Jff122" displayName= "Urine Crystals" /> <statusCode code="completed" /> < effectiveTime value="" /> <value unit="" xsi:type="PQ" value="Amorphous material: moderate/HPF" /> <referenceRange> <observationRange> <text /> </observationRange> </referenceRange> </observation> </component> <component> <observation moodCode="EVN" classCode="OBS"> <templateId root= "2.840.1.997944.11.29.214.2" /> <id nullFlavor="NA" /> < code codeSystem="local" code="Sfh414" displayName="Urine Volume" /> < statusCode code="completed" /> <effectiveTime value="" /> <value unit="" xsi:type="PQ" value="Urine Volume Sufficient (10mL)" /> <referenceRange> <observationRange> <text /> </observationRange> </referenceRange> </observation> </component> <component> <observation moodCode="EVN" classCode ="OBS"> <templateId root="216.840.1.520944.10..4.2" /> < id nullFlavor="NA" /> <code codeSystem="local" code="Kbp012" displayName="Urine-Appearance" /> <statusCode code="completed" /> <effectiveTime value="" /> <value unit="" xsi:type="PQ " value="Clear" /> <referenceRange> <observationRange> <text>Clear</text> </observationRange> </ referenceRange> </observation> </component> <component> <observation moodCode="EVN" classCode="OBS"> <templateId root= "16.840.1.288577.11.29.21.4.2" /> <id nullFlavor="NA" /> < code codeSystem="local" code="Rbp405" displayName="Urine-Bacteria" /> < statusCode code="completed" /> <effectiveTime value="" /> <value unit="" xsi:type="PQ" value="Negative" /> < referenceRange> <observationRange> <text> </text> </observationRange> </referenceRange> </observation> </component> <component> <observation moodCode="EVN" classCode="OBS "> <templateId root="16.840.1.509213.11.29.21.4.2" /> <id nullFlavor="NA" /> <code codeSystem="local" code="Aux154" displayName= "Urine-Bilirubin" /> <statusCode code="completed" /> < effectiveTime value="" /> <value unit="" xsi:type="PQ" value="Negative" /> <referenceRange> <observationRange> <text>Negative</text> </observationRange> </ referenceRange> </observation> </component> <component> <observation moodCode="EVN" classCode="OBS"> <templateId root= "216.840.1.976567.11.29.21.4.2" /> <id nullFlavor="NA" /> < code codeSystem="local" code="Kbo201" displayName="Urine-Blood" /> < statusCode code="completed" /> <effectiveTime value="" /> <value unit="" xsi:type="PQ" value="Negative" /> < referenceRange> <observationRange> <text>Negative</text > </observationRange> </referenceRange> </observation > </component> <component> <observation moodCode="EVN" classCode="OBS"> <templateId root="216.840.1.458575.11.29.21.4.2" /> <id nullFlavor="NA" /> <code codeSystem="local" code="Cds541" displayName="Urine-Color" /> <statusCode code="completed" /> < effectiveTime value="" /> <value unit="" xsi:type="PQ" value="Yellow" /> <referenceRange> <observationRange> <text>Colorless-Lt. Yellow</text> </observationRange> </referenceRange> </observation> </component> <component> <observation moodCode="EVN" classCode="OBS"> <templateId root= "216.840.1.780751.10..4.2" /> <id nullFlavor="NA" /> < code codeSystem="local" code="Mai970" displayName="Urine-Epithelial Cells" /> <statusCode code="completed" /> <effectiveTime value= "" /> <value unit="" xsi:type="PQ" value="0-5/HPF" /> <interpretationCode codeSystem="local" code="A" /> <referenceRange > <observationRange> <text> </text> </ observationRange> </referenceRange> </observation> </ component> <component> <observation moodCode="EVN" classCode="OBS"> <templateId root="16.840.1.725141.10..22.4.2" /> <id nullFlavor="NA" /> <code codeSystem="local" code="Cwo915" displayName= "Urine-Glucose" /> <statusCode code="completed" /> < effectiveTime value="" /> <value unit="" xsi:type="PQ" value="Negative" /> <referenceRange> <observationRange> <text>Negative</text> </observationRange> </ referenceRange> </observation> </component> <component> <observation moodCode="EVN" classCode="OBS"> <templateId root= "216.840.1.553446.10..22.4.2" /> <id nullFlavor="NA" /> < code codeSystem="local" code="Wgg494" displayName="Urine-Ketones" /> < statusCode code="completed" /> <effectiveTime value="" /> <value unit="" xsi:type="PQ" value="Negative" /> < referenceRange> <observationRange> <text>Negative</text > </observationRange> </referenceRange> </observation > </component> <component> <observation moodCode="EVN" classCode="OBS"> <templateId root="03.28.840.1.832942.22.4.2" /> <id nullFlavor="NA" /> <code codeSystem="local" code="Chy704" displayName="Urine-Leukocytes" /> <statusCode code="completed" /> <effectiveTime value="" /> <value unit="" xsi:type="PQ " value="Negative" /> <referenceRange> <observationRange> <text>Negative</text> </observationRange> </ referenceRange> </observation> </component> <component> <observation moodCode="EVN" classCode="OBS"> <templateId root= "2.16.840.1.375979.11.29.21.4.2" /> <id nullFlavor="NA" /> < code codeSystem="local" code="Rnn534" displayName="Urine-Nitrite" /> < statusCode code="completed" /> <effectiveTime value="" /> <value unit="" xsi:type="PQ" value="Negative" /> < referenceRange> <observationRange> <text>Negative</text > </observationRange> </referenceRange> </observation > </component> <component> <observation moodCode="EVN" classCode="OBS"> <templateId root="2.16.840.1.601721.10..4.2" /> <id nullFlavor="NA" /> <code codeSystem="local" code="Xhb843" displayName="Urine-Other" /> <statusCode code="completed" /> < effectiveTime value="" /> <value unit="" xsi:type="PQ" value=" Urine Saved if Culture Needed (48hrs from time of collection)" /> <interpretationCode codeSystem="local" code="A" /> <referenceRange > <observationRange> <text> </text> </ observationRange> </referenceRange> </observation> </ component> <component> <observation moodCode="EVN" classCode="OBS"> <templateId root="216.840.1.133992.10..4.2" /> <id nullFlavor="NA" /> <code codeSystem="local" code="Omx589" displayName= "Urine-pH" /> <statusCode code="completed" /> <effectiveTime value="" /> <value unit="" xsi:type="PQ" value="7.5" /> <referenceRange> <observationRange> <text>5-8.5</ text> </observationRange> </referenceRange> </ observation> </component> <component> <observation moodCode= "EVN" classCode="OBS"> <templateId root="216.840.1.316718...4.2 " /> <id nullFlavor="NA" /> <code codeSystem="local" code= "Ddb127" displayName="Urine-Protein" /> <statusCode code="completed" / > <effectiveTime value="" /> <value unit="" xsi: type="PQ" value="Negative" /> <referenceRange> < observationRange> <text>Negative</text> </ observationRange> </referenceRange> </observation> </ component> <component> <observation moodCode="EVN" classCode="OBS"> <templateId root="16.840.1.512701.10..22.4.2" /> <id nullFlavor="NA" /> <code codeSystem="local" code="Rck328" displayName= "Urine-RBC" /> <statusCode code="completed" /> <effectiveTime value="" /> <value unit="" xsi:type="PQ" value="0-3/HPF" / > <interpretationCode codeSystem="local" code="A" /> < referenceRange> <observationRange> <text> </text> </observationRange> </referenceRange> </observation> </component> <component> <observation moodCode="EVN" classCode="OBS "> <templateId root="216.840.1.873045.10.20.22.4.2" /> <id nullFlavor="NA" /> <code codeSystem="local" code="Uda708" displayName= "Urine-Specific [place]" /> <statusCode code="completed" /> < effectiveTime value="" /> <value unit="" xsi:type="PQ" value="1.020" /> <referenceRange> <observationRange> <text>1.000-1.030</text> </observationRange> </ referenceRange> </observation> </component> <component> <observation moodCode="EVN" classCode="OBS"> <templateId root= "03.28.840.1.986286.10...4.2" /> <id nullFlavor="NA" /> < code codeSystem="local" code="Ftw372" displayName="Urine-WBC" /> < statusCode code="completed" /> <effectiveTime value="407223439231" /> <value unit="" xsi:type="PQ" value="0-2/HPF" /> < interpretationCode codeSystem="local" code="A" /> <referenceRange> <observationRange> <text> </text> </ observationRange> </referenceRange> </observation> </ component> <component> <observation moodCode="EVN" classCode="OBS"> <templateId root="16.840.1.731762.10.20.22.4.2" /> <id nullFlavor="NA" /> <code codeSystem="local" code="Yoq793" displayName= "Urobilinogen" /> <statusCode code="completed" /> < effectiveTime value="025296043197" /> <value unit="" xsi:type="PQ" value="0.2" /> <referenceRange> <observationRange> <text>0.2-1.0</text> </observationRange> </ referenceRange> </observation> </component> </organizer> </entry > <entry> <organizer moodCode="EVN" classCode="BATTERY"> <templateId root="216.840.1.488403.10..4.1" /> <id nullFlavor="NA" /> <code codeSystem="local" code="EJN1277" displayName="Protime " /> <statusCode code="completed" /> <component> <observation moodCode="EVN" classCode="OBS"> <templateId root="216.840.1.737440.10..4.2" /> <id nullFlavor="NA" /> <code codeSystem="local" code="Zom169" displayName="INR" /> <statusCode code="completed" /> < effectiveTime value="827511664064" /> <value unit="" xsi:type="PQ" value="2.1" /> <referenceRange> <observationRange> <text>1.0-4.0</text> </observationRange> </ referenceRange> </observation> </component> <component> <observation moodCode="EVN" classCode="OBS"> <templateId root= "216.840.1.795961.10..4.2" /> <id nullFlavor="NA" /> < code codeSystem="local" code="Yww9868" displayName="Protime" /> < statusCode code="completed" /> <effectiveTime value="992687421113" /> <value unit="Sec" xsi:type="PQ" value="24.5" /> < interpretationCode codeSystem="local" code="H" /> <referenceRange> <observationRange> <text>9.9-12.8</text> </ observationRange> </referenceRange> </observation> </ component> </organizer> </entry> <entry> <organizer moodCode="EVN" classCode="BATTERY"> <templateId root="216.840.1.505243.10..22.4.1" /> <id nullFlavor="NA" /> <code codeSystem="local" code="URQ680" displayName="Influenza" /> <statusCode code="completed" /> <component > <observation moodCode="EVN" classCode="OBS"> <templateId root= "216.840.1.971963.10..22.4.2" /> <id nullFlavor="NA" /> < code codeSystem="local" code="Uou956" displayName="Influenza" /> < statusCode code="completed" /> <effectiveTime value="612497516229" /> <value unit="" xsi:type="PQ" value="NEGATIVE FOR A and B" /> < referenceRange> <observationRange> <text>0.00-0.00</text > </observationRange> </referenceRange> </observation > </component> </organizer> </entry> <entry> <organizer moodCode= "EVN" classCode="BATTERY"> <templateId root="216.840.1.025056.10..22.4.1 " /> <id nullFlavor="NA" /> <code codeSystem="local" code="BAO236" displayName="Lactic Acid" /> <statusCode code="completed" /> < component> <observation moodCode="EVN" classCode="OBS"> < templateId root="16.840.1.487845.10...4.2" /> <id nullFlavor="NA " /> <code codeSystem="local" code="Bdh804" displayName="Lactic Acid" / > <statusCode code="completed" /> <effectiveTime value= "" /> <value unit="mg/dL" xsi:type="PQ" value="29.7" /> <interpretationCode codeSystem="local" code="H" /> < referenceRange> <observationRange> <text>4.5-19.8</text > </observationRange> </referenceRange> </observation > </component> </organizer> </entry> <entry> <organizer moodCode= "EVN" classCode="BATTERY"> <templateId root="03.28.840.1.152041.10...4.1 " /> <id nullFlavor="NA" /> <code codeSystem="local" code="ORD3" displayName="Comprehensive Metabolic Panel" /> <statusCode code="completed " /> <component> <observation moodCode="EVN" classCode="OBS"> <templateId root="16.840.1.228030.10..22.4.2" /> <id nullFlavor ="NA" /> <code codeSystem="local" code="Res44" displayName="Albumin" / > <statusCode code="completed" /> <effectiveTime value= "985611083714" /> <value unit="g/dL" xsi:type="PQ" value="3.8" /> <referenceRange> <observationRange> <text>3.6-5.1</ text> </observationRange> </referenceRange> </ observation> </component> <component> <observation moodCode= "EVN" classCode="OBS"> <templateId root="16.840.1.011393.10..22.4.2 " /> <id nullFlavor="NA" /> <code codeSystem="local" code= "Res45" displayName="ALP" /> <statusCode code="completed" /> < effectiveTime value="" /> <value unit="U/L" xsi:type="PQ" value="136" /> <interpretationCode codeSystem="local" code="H" /> <referenceRange> <observationRange> <text>35-130</ text> </observationRange> </referenceRange> </ observation> </component> <component> <observation moodCode= "EVN" classCode="OBS"> <templateId root="216.840.1.562017.10..4.2 " /> <id nullFlavor="NA" /> <code codeSystem="local" code= "Res46" displayName="ALT" /> <statusCode code="completed" /> < effectiveTime value="" /> <value unit="U/L" xsi:type="PQ" value="21" /> <referenceRange> <observationRange> <text>6-45</text> </observationRange> </referenceRange> </observation> </component> <component> <observation moodCode="EVN" classCode="OBS"> <templateId root= "216.840.1.518378.10...4.2" /> <id nullFlavor="NA" /> < code codeSystem="local" code="Res61" displayName="Anion Gap" /> < statusCode code="completed" /> <effectiveTime value="" /> <value unit="" xsi:type="PQ" value="20" /> < interpretationCode codeSystem="local" code="H" /> <referenceRange> <observationRange> <text>6-14</text> </ observationRange> </referenceRange> </observation> </ component> <component> <observation moodCode="EVN" classCode="OBS"> <templateId root="216.840.1.693237.10...4.2" /> <id nullFlavor="NA" /> <code codeSystem="local" code="Res48" displayName= "AST" /> <statusCode code="completed" /> <effectiveTime value= "" /> <value unit="U/L" xsi:type="PQ" value="44" /> <interpretationCode codeSystem="local" code="H" /> <referenceRange> <observationRange> <text>2-40</text> </ observationRange> </referenceRange> </observation> </ component> <component> <observation moodCode="EVN" classCode="OBS"> <templateId root="16.840.1.255969.10.4.2" /> <id nullFlavor="NA" /> <code codeSystem="local" code="Res26" displayName= "BUN" /> <statusCode code="completed" /> <effectiveTime value= "" /> <value unit="mg/dL" xsi:type="PQ" value="18" /> <referenceRange> <observationRange> <text>5-25</ text> </observationRange> </referenceRange> </ observation> </component> <component> <observation moodCode= "EVN" classCode="OBS"> <templateId root="216.840.1.939102.10..4.2 " /> <id nullFlavor="NA" /> <code codeSystem="local" code= "Res5" displayName="Calcium" /> <statusCode code="completed" /> <effectiveTime value="" /> <value unit="mg/dL" xsi:type= "PQ" value="9.1" /> <referenceRange> <observationRange> <text>8.3-10.4</text> </observationRange> </ referenceRange> </observation> </component> <component> <observation moodCode="EVN" classCode="OBS"> <templateId root= "03.28.840.1.698679.10.22.4.2" /> <id nullFlavor="NA" /> < code codeSystem="local" code="Res21" displayName="Chloride" /> < statusCode code="completed" /> <effectiveTime value="" /> <value unit="mmol/L" xsi:type="PQ" value="102" /> < referenceRange> <observationRange> <text>95-114</text> </observationRange> </referenceRange> </observation> </component> <component> <observation moodCode="EVN" classCode ="OBS"> <templateId root="03.28.840.1.967724.10..4.2" /> < id nullFlavor="NA" /> <code codeSystem="local" code="Res49" displayName ="CO2" /> <statusCode code="completed" /> <effectiveTime value ="" /> <value unit="mEq/L" xsi:type="PQ" value="23" /> <referenceRange> <observationRange> <text>22-33</ text> </observationRange> </referenceRange> </ observation> </component> <component> <observation moodCode= "EVN" classCode="OBS"> <templateId root="03.28.840.1.262622.10.2022.4.2 " /> <id nullFlavor="NA" /> <code codeSystem="local" code= "Nau129" displayName="Creat" /> <statusCode code="completed" /> <effectiveTime value="942634085567" /> <value unit="mg/dL" xsi:type= "PQ" value="0.81" /> <referenceRange> <observationRange> <text>0.50-1.50</text> </observationRange> </ referenceRange> </observation> </component> <component> <observation moodCode="EVN" classCode="OBS"> <templateId root= "16.840.1.751042.10..22.4.2" /> <id nullFlavor="NA" /> < code codeSystem="local" code="Drb386" displayName="eGFR" /> < statusCode code="completed" /> <effectiveTime value="" /> <value unit="mL/min/1.73m2" xsi:type="PQ" value="70" /> < referenceRange> <observationRange> <text>>59</text> </observationRange> </referenceRange> </observation> </component> <component> <observation moodCode="EVN" classCode ="OBS"> <templateId root="16.840.1.332186.10..22.4.2" /> < id nullFlavor="NA" /> <code codeSystem="local" code="Res7" displayName= "Globulin" /> <statusCode code="completed" /> <effectiveTime value="" /> <value unit="g/dL" xsi:type="PQ" value="3.9" / > <interpretationCode codeSystem="local" code="H" /> < referenceRange> <observationRange> <text>2.3-3.5</text> </observationRange> </referenceRange> </observation > </component> <component> <observation moodCode="EVN" classCode="OBS"> <templateId root="16.840.1.479897.10..22.4.2" /> <id nullFlavor="NA" /> <code codeSystem="local" code="Res60" displayName="Glucose" /> <statusCode code="completed" /> < effectiveTime value="" /> <value unit="mg/dL" xsi:type="PQ " value="84" /> <referenceRange> <observationRange> <text>70-110</text> </observationRange> </ referenceRange> </observation> </component> <component> <observation moodCode="EVN" classCode="OBS"> <templateId root= "16.840.1.395701.10..4.2" /> <id nullFlavor="NA" /> < code codeSystem="local" code="Res52" displayName="Osmo" /> <statusCode code="completed" /> <effectiveTime value="" /> < value unit="" xsi:type="PQ" value="290" /> <referenceRange> <observationRange> <text>280-295</text> </ observationRange> </referenceRange> </observation> </ component> <component> <observation moodCode="EVN" classCode="OBS"> <templateId root="03.28.840.1.508116.10..22.4.2" /> <id nullFlavor="NA" /> <code codeSystem="local" code="Res20" displayName= "Potassium" /> <statusCode code="completed" /> <effectiveTime value="744911820218" /> <value unit="mmol/L" xsi:type="PQ" value="4.5 Hemolyzed 1+" /> <referenceRange> <observationRange> <text>3.5-5.3</text> </observationRange> </ referenceRange> </observation> </component> <component> <observation moodCode="EVN" classCode="OBS"> <templateId root= "216.840.1.283894.10..4.2" /> <id nullFlavor="NA" /> < code codeSystem="local" code="Res19" displayName="Sodium" /> < statusCode code="completed" /> <effectiveTime value="" /> <value unit="mmol/L" xsi:type="PQ" value="140" /> < referenceRange> <observationRange> <text>134-148</text> </observationRange> </referenceRange> </observation > </component> <component> <observation moodCode="EVN" classCode="OBS"> <templateId root="216.840.1.709440.11.29.21.4.2" /> <id nullFlavor="NA" /> <code codeSystem="local" code="Res51" displayName="TBil" /> <statusCode code="completed" /> < effectiveTime value="" /> <value unit="mg/dL" xsi:type="PQ " value="0.4" /> <referenceRange> <observationRange> <text>0.2-1.2</text> </observationRange> </ referenceRange> </observation> </component> <component> <observation moodCode="EVN" classCode="OBS"> <templateId root= "216.840.1.028859..22.4.2" /> <id nullFlavor="NA" /> < code codeSystem="local" code="Res24" displayName="TP" /> <statusCode code="completed" /> <effectiveTime value="" /> < value unit="g/dL" xsi:type="PQ" value="7.7" /> <referenceRange> <observationRange> <text>6.0-8.3</text> </ observationRange> </referenceRange> </observation> </ component> </organizer> </entry> <entry> <organizer moodCode="EVN" classCode="BATTERY"> <templateId root="03.28.840.1.845917.10...4.1" /> <id nullFlavor="NA" /> <code codeSystem="local" code="VFJ5874" displayName="C-Reactive Protein" /> <statusCode code="completed" /> < component> <observation moodCode="EVN" classCode="OBS"> < templateId root="216.840.1.025967.10...4.2" /> <id nullFlavor="NA " /> <code codeSystem="local" code="Yno5385" displayName="C-Reactive Protein" /> <statusCode code="completed" /> <effectiveTime value="440824499779" /> <value unit="mg/dL" xsi:type="PQ" value="11.25 " /> <interpretationCode codeSystem="local" code="H" /> < referenceRange> <observationRange> <text>0.00-0.50</text > </observationRange> </referenceRange> </observation > </component> </organizer> </entry> <entry> <organizer moodCode= "EVN" classCode="BATTERY"> <templateId root="03.28.840.1.626244.10...4.1 " /> <id nullFlavor="NA" /> <code codeSystem="local" code="SWB8489" displayName="Blood Culture" /> <statusCode code="completed" /> < component> <observation moodCode="EVN" classCode="OBS"> < templateId root="216.840.1.559259.10..22.4.2" /> <id nullFlavor="NA " /> <code codeSystem="local" code="Ygk1198" displayName="PRELIM CULTURE RESULTS" /> <statusCode code="completed" /> < effectiveTime value="" /> <value unit="" xsi:type="PQ" value="Blood Culture Negative, No Growth Day 1" /> <referenceRange> <observationRange> <text /> </observationRange > </referenceRange> </observation> </component> < component> <observation moodCode="EVN" classCode="OBS"> < templateId root="16.840.1.591037.10..4.2" /> <id nullFlavor="NA " /> <code codeSystem="local" code="Gtl7787" displayName="FINAL CULTURE RESULTS" /> <statusCode code="completed" /> < effectiveTime value="" /> <value unit="" xsi:type="PQ" value="Blood Culture Negative, No Growth Day 5" /> <referenceRange> <observationRange> <text /> </observationRange > </referenceRange> </observation> </component> < component> <observation moodCode="EVN" classCode="OBS"> < templateId root="16.840.1.469647.10..4.2" /> <id nullFlavor="NA " /> <code codeSystem="local" code="Zzp7619" displayName="CULTURE SOURCE" /> <statusCode code="completed" /> <effectiveTime value="" /> <value unit="" xsi:type="PQ" value="IV [id number] 42" /> <referenceRange> <observationRange> <text /> </observationRange> </referenceRange> </observation> </component> </organizer> </entry> <entry> < organizer moodCode="EVN" classCode="BATTERY"> <templateId root= "2.16.840.1.573165.10.22.4.1" /> <id nullFlavor="NA" /> <code codeSystem="local" code="ORD68" displayName="Urinalysis" /> <statusCode code="completed" /> <component> <observation moodCode="EVN" classCode="OBS"> <templateId root="2.16.840.1.242855.10..4.2" /> <id nullFlavor="NA" /> <code codeSystem="local" code="Qvi8790 " displayName="Icotest" /> <statusCode code="completed" /> < effectiveTime value="" /> <value unit="" xsi:type="PQ" value="Negative" /> <referenceRange> <observationRange> <text>Negative</text> </observationRange> </ referenceRange> </observation> </component> <component> <observation moodCode="EVN" classCode="OBS"> <templateId root= "2.16.840.1.789103.10...4.2" /> <id nullFlavor="NA" /> < code codeSystem="local" code="Xkq792" displayName="Urine-Appearance" /> <statusCode code="completed" /> <effectiveTime value="" / > <value unit="" xsi:type="PQ" value="Slightly Cloudy" /> < interpretationCode codeSystem="local" code="A" /> <referenceRange> <observationRange> <text>Clear</text> </ observationRange> </referenceRange> </observation> </ component> <component> <observation moodCode="EVN" classCode="OBS"> <templateId root="16.840.1.791006.10..22.4.2" /> <id nullFlavor="NA" /> <code codeSystem="local" code="Qjk424" displayName= "Urine-Bacteria" /> <statusCode code="completed" /> < effectiveTime value="" /> <value unit="" xsi:type="PQ" value="1+" /> <interpretationCode codeSystem="local" code="A" /> <referenceRange> <observationRange> <text> </text> </observationRange> </referenceRange> </observation> </component> <component> <observation moodCode="EVN" classCode ="OBS"> <templateId root="16.840.1.834331...4.2" /> < id nullFlavor="NA" /> <code codeSystem="local" code="Pdf704" displayName="Urine-Bilirubin" /> <statusCode code="completed" /> <effectiveTime value="" /> <value unit="" xsi:type="PQ " value="1+" /> <interpretationCode codeSystem="local" code="A" /> <referenceRange> <observationRange> <text>Negative </text> </observationRange> </referenceRange> </ observation> </component> <component> <observation moodCode= "EVN" classCode="OBS"> <templateId root="16.840.1.348589.10..22.4.2 " /> <id nullFlavor="NA" /> <code codeSystem="local" code= "Svk530" displayName="Urine-Blood" /> <statusCode code="completed" /> <effectiveTime value="" /> <value unit="" xsi:type ="PQ" value="1+" /> <interpretationCode codeSystem="local" code="A" /> <referenceRange> <observationRange> <text> Negative</text> </observationRange> </referenceRange> </observation> </component> <component> <observation moodCode ="EVN" classCode="OBS"> <templateId root= "16.840.1.904966.10.20.22.4.2" /> <id nullFlavor="NA" /> < code codeSystem="local" code="Tcs998" displayName="Urine-Color" /> < statusCode code="completed" /> <effectiveTime value="" /> <value unit="" xsi:type="PQ" value="Yellow" /> <referenceRange > <observationRange> <text>Colorless-Lt. Yellow</text> </observationRange> </referenceRange> </observation> </component> <component> <observation moodCode="EVN" classCode ="OBS"> <templateId root="840.1.798332.10...4.2" /> < id nullFlavor="NA" /> <code codeSystem="local" code="Agh720" displayName="Urine-Epithelial Cells" /> <statusCode code="completed" / > <effectiveTime value="" /> <value unit="" xsi: type="PQ" value="5-10/HPF" /> <interpretationCode codeSystem="local" code="A" /> <referenceRange> <observationRange> <text> </text> </observationRange> </referenceRange> </observation> </component> <component> <observation moodCode="EVN" classCode="OBS"> <templateId root= "03.28.840.1.746602.10.20.22.4.2" /> <id nullFlavor="NA" /> < code codeSystem="local" code="Hbv622" displayName="Urine-Glucose" /> < statusCode code="completed" /> <effectiveTime value="" /> <value unit="" xsi:type="PQ" value="Negative" /> < referenceRange> <observationRange> <text>Negative</text > </observationRange> </referenceRange> </observation > </component> <component> <observation moodCode="EVN" classCode="OBS"> <templateId root="216.840.1.784706.10..4.2" /> <id nullFlavor="NA" /> <code codeSystem="local" code="Crq801" displayName="Urine-Ketones" /> <statusCode code="completed" /> <effectiveTime value="" /> <value unit="" xsi:type="PQ" value="1+" /> <interpretationCode codeSystem="local" code="A" /> <referenceRange> <observationRange> <text>Negative</ text> </observationRange> </referenceRange> </ observation> </component> <component> <observation moodCode= "EVN" classCode="OBS"> <templateId root="16.840.1.280341.11.29.21.4.2 " /> <id nullFlavor="NA" /> <code codeSystem="local" code= "Qkf074" displayName="Urine-Leukocytes" /> <statusCode code="completed " /> <effectiveTime value="" /> <value unit="" xsi :type="PQ" value="Negative" /> <referenceRange> < observationRange> <text>Negative</text> </ observationRange> </referenceRange> </observation> </ component> <component> <observation moodCode="EVN" classCode="OBS"> <templateId root="16.840.1.110203.11.29.21.4.2" /> <id nullFlavor="NA" /> <code codeSystem="local" code="Erf715" displayName= "Urine-Nitrite" /> <statusCode code="completed" /> < effectiveTime value="" /> <value unit="" xsi:type="PQ" value="Negative" /> <referenceRange> <observationRange> <text>Negative</text> </observationRange> </ referenceRange> </observation> </component> <component> <observation moodCode="EVN" classCode="OBS"> <templateId root= "2.16.840.1.635861.10...4.2" /> <id nullFlavor="NA" /> < code codeSystem="local" code="Umn961" displayName="Urine-pH" /> < statusCode code="completed" /> <effectiveTime value="" /> <value unit="" xsi:type="PQ" value="5.5" /> <referenceRange> <observationRange> <text>5-8.5</text> </ observationRange> </referenceRange> </observation> </ component> <component> <observation moodCode="EVN" classCode="OBS"> <templateId root="2.16.840.1.236639.10..22.4.2" /> <id nullFlavor="NA" /> <code codeSystem="local" code="Xil348" displayName= "Urine-Protein" /> <statusCode code="completed" /> < effectiveTime value="" /> <value unit="" xsi:type="PQ" value="2+" /> <interpretationCode codeSystem="local" code="A" /> <referenceRange> <observationRange> <text>Negative</ text> </observationRange> </referenceRange> </ observation> </component> <component> <observation moodCode= "EVN" classCode="OBS"> <templateId root="2.16.840.1.526174.10.22.4.2 " /> <id nullFlavor="NA" /> <code codeSystem="local" code= "Vwv780" displayName="Urine-RBC" /> <statusCode code="completed" /> <effectiveTime value="" /> <value unit="" xsi:type= "PQ" value="Few/HPF" /> <interpretationCode codeSystem="local" code="A " /> <referenceRange> <observationRange> <text > </text> </observationRange> </referenceRange> </ observation> </component> <component> <observation moodCode= "EVN" classCode="OBS"> <templateId root="216.840.1.663316.11.29.214.2 " /> <id nullFlavor="NA" /> <code codeSystem="local" code= "Lgf286" displayName="Urine-Specific [place]" /> <statusCode code= "completed" /> <effectiveTime value="" /> <value unit="" xsi:type="PQ" value="1.020" /> <referenceRange> < observationRange> <text>1.000-1.030</text> </ observationRange> </referenceRange> </observation> </ component> <component> <observation moodCode="EVN" classCode="OBS"> <templateId root="216.840.1.342036.10.22.4.2" /> <id nullFlavor="NA" /> <code codeSystem="local" code="Ubt702" displayName= "Urine-WBC" /> <statusCode code="completed" /> <effectiveTime value="" /> <value unit="" xsi:type="PQ" value="Negative" / > <referenceRange> <observationRange> <text> </ text> </observationRange> </referenceRange> </ observation> </component> <component> <observation moodCode= "EVN" classCode="OBS"> <templateId root="16.840.1.441997.10.4.2 " /> <id nullFlavor="NA" /> <code codeSystem="local" code= "Gfk828" displayName="Urobilinogen" /> <statusCode code="completed" /> <effectiveTime value="" /> <value unit="" xsi: type="PQ" value="0.2 E.U./dL" /> <interpretationCode codeSystem="local " code="A" /> <referenceRange> <observationRange> <text>0.2-1.0</text> </observationRange> </ referenceRange> </observation> </component> </organizer> </entry > <entry> <organizer moodCode="EVN" classCode="BATTERY"> <templateId root="03.28.840.1.593805.11.29.21.4.1" /> <id nullFlavor="NA" /> <code codeSystem="local" code="ORD87" displayName="EKG" /> <statusCode code= "completed" /> <component> <observation moodCode="EVN" classCode= "OBS"> <templateId root="16.840.1.821364.11.29.21.4.2" /> < id nullFlavor="NA" /> <code codeSystem="local" code="Xhf7593" displayName="EKG" /> <statusCode code="completed" /> < effectiveTime value="" /> <value unit="" xsi:type="PQ" value="Complete" /> <referenceRange> <observationRange> <text /> </observationRange> </referenceRange> </observation> </component> </organizer> </entry> <entry> < organizer moodCode="EVN" classCode="BATTERY"> <templateId root= "2.16.840.1.724798.10..22.4.1" /> <id nullFlavor="NA" /> <code codeSystem="local" code="OFQ3889" displayName="Blood Culture" /> < statusCode code="completed" /> <component> <observation moodCode= "EVN" classCode="OBS"> <templateId root="2.16.840.1.650694.10...4.2 " /> <id nullFlavor="NA" /> <code codeSystem="local" code= "Kdk6221" displayName="PRELIM CULTURE RESULTS" /> <statusCode code= "completed" /> <effectiveTime value="" /> <value unit="" xsi:type="PQ" value="Blood Culture Negative, No Growth Day 1" /> <referenceRange> <observationRange> <text /> </observationRange> </referenceRange> </observation> </ component> <component> <observation moodCode="EVN" classCode="OBS"> <templateId root="2.16.840.1.664729.10...4.2" /> <id nullFlavor="NA" /> <code codeSystem="local" code="Lhr2751" displayName= "FINAL CULTURE RESULTS" /> <statusCode code="completed" /> < effectiveTime value="" /> <value unit="" xsi:type="PQ" value="Blood Culture Negative, No Growth Day 5" /> <referenceRange> <observationRange> <text /> </observationRange > </referenceRange> </observation> </component> < component> <observation moodCode="EVN" classCode="OBS"> < templateId root="216.840.1.129588.10..22.4.2" /> <id nullFlavor="NA " /> <code codeSystem="local" code="Ddb5792" displayName="CULTURE SOURCE" /> <statusCode code="completed" /> <effectiveTime value="[id number]" /> <value unit="" xsi:type="PQ" value="rt. [id number] 40" /> <referenceRange> <observationRange> <text /> </observationRange> </referenceRange> </observation> </component> </organizer> </entry> <entry> < organizer moodCode="EVN" classCode="BATTERY"> <templateId root= "16.840.1.655564.10...4.1" /> <id nullFlavor="NA" /> <code codeSystem="local" code="HRW8706" displayName="Other Culture" /> < statusCode code="completed" /> <component> <observation moodCode= "EVN" classCode="OBS"> <templateId root="216.840.1.752313.10..4.2 " /> <id nullFlavor="NA" /> <code codeSystem="local" code= "Rjf1550" displayName="PRELIM CULTURE RESULTS" /> <statusCode code= "completed" /> <effectiveTime value="377425547569" /> <value unit="" xsi:type="PQ" value="No Growth 24 hours" /> <referenceRange> <observationRange> <text /> </observationRange > </referenceRange> </observation> </component> < component> <observation moodCode="EVN" classCode="OBS"> < templateId root="216.840.1.112754.10..22.4.2" /> <id nullFlavor="NA " /> <code codeSystem="local" code="Kvh4286" displayName="FINAL CULTURE RESULTS" /> <statusCode code="completed" /> < effectiveTime value="" /> <value unit="" xsi:type="PQ" value="No Growth 48 hours" /> <referenceRange> < observationRange> <text /> </observationRange> </referenceRange> </observation> </component> <component> <observation moodCode="EVN" classCode="OBS"> <templateId root= "16.840.1.189612.10..4.2" /> <id nullFlavor="NA" /> < code codeSystem="local" code="Mhe9289" displayName="MEDIA PLATED" /> < statusCode code="completed" /> <effectiveTime value="" /> <value unit="" xsi:type="PQ" value="Setup at 16:27 on 03/14/2018" /> <referenceRange> <observationRange> <text /> </observationRange> </referenceRange> </observation> </component> </organizer> </entry> <entry> <organizer moodCode="EVN" classCode="BATTERY"> <templateId root="03.28.840.1.371677...4.1" /> <id nullFlavor="NA" /> <code codeSystem="local" code="PWT249" displayName="Lactic Acid" /> <statusCode code="completed" /> < component> <observation moodCode="EVN" classCode="OBS"> < templateId root="16.840.1.148098.11.29.21.4.2" /> <id nullFlavor="NA " /> <code codeSystem="local" code="Jnb442" displayName="Lactic Acid" / > <statusCode code="completed" /> <effectiveTime value= "" /> <value unit="mg/dL" xsi:type="PQ" value="5.6" /> <referenceRange> <observationRange> <text>4.5-19.8 </text> </observationRange> </referenceRange> </ observation> </component> </organizer> </entry> <entry> <organizer moodCode="EVN" classCode="BATTERY"> <templateId root= "03.28.840.1.152300.11.29.21.4.1" /> <id nullFlavor="NA" /> <code codeSystem="local" code="ORD4" displayName="BMP" /> <statusCode code= "completed" /> <component> <observation moodCode="EVN" classCode= "OBS"> <templateId root="216.840.1.460034...4.2" /> < id nullFlavor="NA" /> <code codeSystem="local" code="Res61" displayName ="Anion Gap" /> <statusCode code="completed" /> < effectiveTime value="" /> <value unit="" xsi:type="PQ" value="12" /> <referenceRange> <observationRange> <text>6-14</text> </observationRange> </referenceRange> </observation> </component> <component> <observation moodCode="EVN" classCode="OBS"> <templateId root= "03.28.840.1.283355.11.29.21.4.2" /> <id nullFlavor="NA" /> < code codeSystem="local" code="Res26" displayName="BUN" /> <statusCode code="completed" /> <effectiveTime value="" /> < value unit="mg/dL" xsi:type="PQ" value="10" /> <referenceRange> <observationRange> <text>5-25</text> </ observationRange> </referenceRange> </observation> </ component> <component> <observation moodCode="EVN" classCode="OBS"> <templateId root="03.28.840.1.068124.10.2022.4.2" /> <id nullFlavor="NA" /> <code codeSystem="local" code="Res5" displayName= "Calcium" /> <statusCode code="completed" /> <effectiveTime value="009957034919" /> <value unit="mg/dL" xsi:type="PQ" value="7.6" / > <interpretationCode codeSystem="local" code="L" /> < referenceRange> <observationRange> <text>8.3-10.4</text > </observationRange> </referenceRange> </observation > </component> <component> <observation moodCode="EVN" classCode="OBS"> <templateId root="840.1.623739.1022.4.2" /> <id nullFlavor="NA" /> <code codeSystem="local" code="Res21" displayName="Chloride" /> <statusCode code="completed" /> < effectiveTime value="584927956771" /> <value unit="mmol/L" xsi:type="PQ " value="108" /> <referenceRange> <observationRange> <text>95-114</text> </observationRange> </ referenceRange> </observation> </component> <component> <observation moodCode="EVN" classCode="OBS"> <templateId root= "03.28.840.1.769137.10.20.22.4.2" /> <id nullFlavor="NA" /> < code codeSystem="local" code="Res49" displayName="CO2" /> <statusCode code="completed" /> <effectiveTime value="" /> < value unit="mEq/L" xsi:type="PQ" value="24" /> <referenceRange> <observationRange> <text>22-33</text> </ observationRange> </referenceRange> </observation> </ component> <component> <observation moodCode="EVN" classCode="OBS"> <templateId root="2.16.840.1.059708.11.29.21.4.2" /> <id nullFlavor="NA" /> <code codeSystem="local" code="Dgh664" displayName= "Creat" /> <statusCode code="completed" /> <effectiveTime value="" /> <value unit="mg/dL" xsi:type="PQ" value="0.59" /> <referenceRange> <observationRange> <text> 0.50-1.50</text> </observationRange> </referenceRange> </observation> </component> <component> <observation moodCode="EVN" classCode="OBS"> <templateId root= "216.840.1.938413.11.29.21.4.2" /> <id nullFlavor="NA" /> < code codeSystem="local" code="Qog284" displayName="eGFR" /> < statusCode code="completed" /> <effectiveTime value="" /> <value unit="mL/min/1.73m2" xsi:type="PQ" value="101" /> < referenceRange> <observationRange> <text>>59</text> </observationRange> </referenceRange> </observation> </component> <component> <observation moodCode="EVN" classCode ="OBS"> <templateId root="216.840.1.080560.11.29.21.4.2" /> < id nullFlavor="NA" /> <code codeSystem="local" code="Res60" displayName ="Glucose" /> <statusCode code="completed" /> <effectiveTime value="503183397774" /> <value unit="mg/dL" xsi:type="PQ" value="81" / > <referenceRange> <observationRange> <text>70- 110</text> </observationRange> </referenceRange> </ observation> </component> <component> <observation moodCode= "EVN" classCode="OBS"> <templateId root="2.16.840.1.087230.10..22.4.2 " /> <id nullFlavor="NA" /> <code codeSystem="local" code= "Res52" displayName="Osmo" /> <statusCode code="completed" /> <effectiveTime value="" /> <value unit="" xsi:type="PQ" value="287" /> <referenceRange> <observationRange> <text>280-295</text> </observationRange> </ referenceRange> </observation> </component> <component> <observation moodCode="EVN" classCode="OBS"> <templateId root= "216.840.1.266237.10..22.4.2" /> <id nullFlavor="NA" /> < code codeSystem="local" code="Res20" displayName="Potassium" /> < statusCode code="completed" /> <effectiveTime value="" /> <value unit="mmol/L" xsi:type="PQ" value="3.9" /> < referenceRange> <observationRange> <text>3.5-5.3</text> </observationRange> </referenceRange> </observation > </component> <component> <observation moodCode="EVN" classCode="OBS"> <templateId root="2.16.840.1.591596.10..4.2" /> <id nullFlavor="NA" /> <code codeSystem="local" code="Res19" displayName="Sodium" /> <statusCode code="completed" /> < effectiveTime value="068497247556" /> <value unit="mmol/L" xsi:type="PQ " value="140" /> <referenceRange> <observationRange> <text>134-148</text> </observationRange> </ referenceRange> </observation> </component> </organizer> </entry > <entry> <organizer moodCode="EVN" classCode="BATTERY"> <templateId root="16.840.1.874031.10..4.1" /> <id nullFlavor="NA" /> <code codeSystem="local" code="158601" displayName="Anaerobic Culture" /> < statusCode code="completed" /> <component> <observation moodCode= "EVN" classCode="OBS"> <templateId root="216.840.1.336780.10...4.2 " /> <id nullFlavor="NA" /> <code codeSystem="local" code= "010981" displayName="Anaerobic Culture" /> <statusCode code="completed " /> <effectiveTime value="410865818565" /> <value unit="" xsi :type="PQ" value="Note" /> <referenceRange> < observationRange> <text /> </observationRange> </referenceRange> </observation> </component> </organizer> </ entry> <entry> <organizer moodCode="EVN" classCode="BATTERY"> < templateId root="216.840.1.556676.10..22.4.1" /> <id nullFlavor="NA" /> <code codeSystem="local" code="IKD0249" displayName="Other Culture" /> <statusCode code="completed" /> <component> <observation moodCode ="EVN" classCode="OBS"> <templateId root= "16.840.1.325963.10.4.2" /> <id nullFlavor="NA" /> < code codeSystem="local" code="Ffp4995" displayName="PRELIM CULTURE RESULTS" /> <statusCode code="completed" /> <effectiveTime value= "" /> <value unit="" xsi:type="PQ" value="No Growth 48 hours" /> <referenceRange> <observationRange> < text /> </observationRange> </referenceRange> </ observation> </component> <component> <observation moodCode= "EVN" classCode="OBS"> <templateId root="03.28.840.1.354635.11.29.21.4.2 " /> <id nullFlavor="NA" /> <code codeSystem="local" code= "Uxk8251" displayName="FINAL CULTURE RESULTS" /> <statusCode code= "completed" /> <effectiveTime value="" /> <value unit="" xsi:type="PQ" value="No Growth 72 hours" /> <referenceRange> <observationRange> <text /> </observationRange > </referenceRange> </observation> </component> < component> <observation moodCode="EVN" classCode="OBS"> < templateId root="03.28.840.1.659915.11.29.21.4.2" /> <id nullFlavor="NA " /> <code codeSystem="local" code="Lsz3217" displayName="MEDIA PLATED " /> <statusCode code="completed" /> <effectiveTime value= "" /> <value unit="" xsi:type="PQ" value="Set up 09:15 on 03.15.2018" /> <referenceRange> <observationRange> <text /> </observationRange> </referenceRange> < /observation> </component> </organizer> </entry> <entry> < organizer moodCode="EVN" classCode="BATTERY"> <templateId root= "216.840.1.554907.10..22.4.1" /> <id nullFlavor="NA" /> <code codeSystem="local" code="100040" displayName="Anaerobic Culture" /> < statusCode code="completed" /> <component> <observation moodCode= "EVN" classCode="OBS"> <templateId root="216.840.1.974465.10...4.2 " /> <id nullFlavor="NA" /> <code codeSystem="local" code= "931910" displayName="ANAEROBIC CULTURE" /> <statusCode code="completed " /> <effectiveTime value="" /> <value unit="" xsi :type="PQ" value="FINAL REPORT" /> <referenceRange> < observationRange> <text /> </observationRange> </referenceRange> </observation> </component> <component> <observation moodCode="EVN" classCode="OBS"> <templateId root= "16.840.1.759130.11.29.21.4.2" /> <id nullFlavor="NA" /> < code codeSystem="local" code="253605" displayName="RESULT 1" /> < statusCode code="completed" /> <effectiveTime value="" /> <value unit="" xsi:type="PQ" value="NO ANAEROBIC GROWTH IN 72 HOURS." / > <referenceRange> <observationRange> <text /> </observationRange> </referenceRange> </observation > </component> </organizer> </entry> <entry> <organizer moodCode= "EVN" classCode="BATTERY"> <templateId root="2.16.840.1.758827.10..22.4.1 " /> <id nullFlavor="NA" /> <code codeSystem="local" code="KNO7592" displayName="Gram Stain" /> <statusCode code="completed" /> <component > <observation moodCode="EVN" classCode="OBS"> <templateId root= "2.16.840.1.752181.10...4.2" /> <id nullFlavor="NA" /> < code codeSystem="local" code="Hdh9934" displayName="GRAM STAIN" /> < statusCode code="completed" /> <effectiveTime value="045454972945" /> <value unit="" xsi:type="PQ" value="Gram stain reveals moderate rbc, fewer wbc, NO bacteria identified. " /> <referenceRange> < observationRange> <text /> </observationRange> </referenceRange> </observation> </component> <component> <observation moodCode="EVN" classCode="OBS"> <templateId root= "2.16.840.1.920809.10..22.4.2" /> <id nullFlavor="NA" /> < code codeSystem="local" code="Uaf8129" displayName="CULTURE SOURCE" /> <statusCode code="completed" /> <effectiveTime value="053709884974" /> <value unit="" xsi:type="PQ" value="left knee aspirate" /> < referenceRange> <observationRange> <text /> < /observationRange> </referenceRange> </observation> </ component> </organizer> </entry> <entry> <organizer moodCode="EVN" classCode="BATTERY"> <templateId root="216.840.1.963912.10..4.1" /> <id nullFlavor="NA" /> <code codeSystem="local" code="SSH0506" displayName="Protime " /> <statusCode code="completed" /> <component> <observation moodCode="EVN" classCode="OBS"> <templateId root= "03.28.840.1.063670.11.29.21.4.2" /> <id nullFlavor="NA" /> < code codeSystem="local" code="Ood118" displayName="INR" /> <statusCode code="completed" /> <effectiveTime value="" /> < value unit="" xsi:type="PQ" value="1.8" /> <referenceRange> <observationRange> <text>1.0-4.0</text> </ observationRange> </referenceRange> </observation> </ component> <component> <observation moodCode="EVN" classCode="OBS"> <templateId root="216.840.1.173679.11.29.21.4.2" /> <id nullFlavor="NA" /> <code codeSystem="local" code="Lcf8360" displayName= "Protime" /> <statusCode code="completed" /> <effectiveTime value="[id number]" /> <value unit="Sec" xsi:type="PQ" value="21.8" / > <interpretationCode codeSystem="local" code="H" /> < referenceRange> <observationRange> <text>9.9-12.8</text > </observationRange> </referenceRange> </observation > </component> </organizer> </entry> <entry> <organizer moodCode= "EVN" classCode="BATTERY"> <templateId root="03.28.840.1.820070....4.1 " /> <id nullFlavor="NA" /> <code codeSystem="local" code="ORD3" displayName="Comprehensive Metabolic Panel" /> <statusCode code="completed " /> <component> <observation moodCode="EVN" classCode="OBS"> <templateId root="03.28.840.1.758800.11.29.21.4.2" /> <id nullFlavor ="NA" /> <code codeSystem="local" code="Res44" displayName="Albumin" / > <statusCode code="completed" /> <effectiveTime value= "" /> <value unit="g/dL" xsi:type="PQ" value="3.1" /> <interpretationCode codeSystem="local" code="L" /> <referenceRange > <observationRange> <text>3.6-5.1</text> </ observationRange> </referenceRange> </observation> </ component> <component> <observation moodCode="EVN" classCode="OBS"> <templateId root="840.1.560111.11.29.21.4.2" /> <id nullFlavor="NA" /> <code codeSystem="local" code="Res45" displayName= "ALP" /> <statusCode code="completed" /> <effectiveTime value= "" /> <value unit="U/L" xsi:type="PQ" value="111" /> <referenceRange> <observationRange> <text>35-130</ text> </observationRange> </referenceRange> </ observation> </component> <component> <observation moodCode= "EVN" classCode="OBS"> <templateId root="03.28.840.1.433594...4.2 " /> <id nullFlavor="NA" /> <code codeSystem="local" code= "Res46" displayName="ALT" /> <statusCode code="completed" /> < effectiveTime value="" /> <value unit="U/L" xsi:type="PQ" value="18" /> <referenceRange> <observationRange> <text>6-45</text> </observationRange> </referenceRange> </observation> </component> <component> <observation moodCode="EVN" classCode="OBS"> <templateId root= "216.840.1.214543.10...4.2" /> <id nullFlavor="NA" /> < code codeSystem="local" code="Res61" displayName="Anion Gap" /> < statusCode code="completed" /> <effectiveTime value="" /> <value unit="" xsi:type="PQ" value="13" /> <referenceRange> <observationRange> <text>6-14</text> </ observationRange> </referenceRange> </observation> </ component> <component> <observation moodCode="EVN" classCode="OBS"> <templateId root="216.840.1.028357.10..22.4.2" /> <id nullFlavor="NA" /> <code codeSystem="local" code="Res48" displayName= "AST" /> <statusCode code="completed" /> <effectiveTime value= "" /> <value unit="U/L" xsi:type="PQ" value="20" /> <referenceRange> <observationRange> <text>2-40</text > </observationRange> </referenceRange> </observation > </component> <component> <observation moodCode="EVN" classCode="OBS"> <templateId root="216.840.1.523607.22.4.2" /> <id nullFlavor="NA" /> <code codeSystem="local" code="Res26" displayName="BUN" /> <statusCode code="completed" /> < effectiveTime value="" /> <value unit="mg/dL" xsi:type="PQ " value="7" /> <referenceRange> <observationRange> <text>5-25</text> </observationRange> </referenceRange > </observation> </component> <component> <observation moodCode="EVN" classCode="OBS"> <templateId root= "2.16.840.1.885556.11.29.21.4.2" /> <id nullFlavor="NA" /> < code codeSystem="local" code="Res5" displayName="Calcium" /> < statusCode code="completed" /> <effectiveTime value="" /> <value unit="mg/dL" xsi:type="PQ" value="8.4" /> < referenceRange> <observationRange> <text>8.3-10.4</text > </observationRange> </referenceRange> </observation > </component> <component> <observation moodCode="EVN" classCode="OBS"> <templateId root="2.16.840.1.063395.11.29.21.4.2" /> <id nullFlavor="NA" /> <code codeSystem="local" code="Res21" displayName="Chloride" /> <statusCode code="completed" /> < effectiveTime value="" /> <value unit="mmol/L" xsi:type="PQ " value="107" /> <referenceRange> <observationRange> <text>95-114</text> </observationRange> </ referenceRange> </observation> </component> <component> <observation moodCode="EVN" classCode="OBS"> <templateId root= "16.840.1.683623.10.20.22.4.2" /> <id nullFlavor="NA" /> < code codeSystem="local" code="Res49" displayName="CO2" /> <statusCode code="completed" /> <effectiveTime value="" /> < value unit="mEq/L" xsi:type="PQ" value="27" /> <referenceRange> <observationRange> <text>22-33</text> </ observationRange> </referenceRange> </observation> </ component> <component> <observation moodCode="EVN" classCode="OBS"> <templateId root="16.840.1.097666.10.22.4.2" /> <id nullFlavor="NA" /> <code codeSystem="local" code="Mly912" displayName= "Creat" /> <statusCode code="completed" /> <effectiveTime value="" /> <value unit="mg/dL" xsi:type="PQ" value="0.60" /> <referenceRange> <observationRange> <text> 0.50-1.50</text> </observationRange> </referenceRange> </observation> </component> <component> <observation moodCode="EVN" classCode="OBS"> <templateId root= "16.840.1.289790.10.20.22.4.2" /> <id nullFlavor="NA" /> < code codeSystem="local" code="Nfd716" displayName="eGFR" /> < statusCode code="completed" /> <effectiveTime value="" /> <value unit="mL/min/1.73m2" xsi:type="PQ" value="99" /> < referenceRange> <observationRange> <text>>59</text> </observationRange> </referenceRange> </observation> </component> <component> <observation moodCode="EVN" classCode ="OBS"> <templateId root="216.840.1.273198.10..4.2" /> < id nullFlavor="NA" /> <code codeSystem="local" code="Res7" displayName= "Globulin" /> <statusCode code="completed" /> <effectiveTime value="" /> <value unit="g/dL" xsi:type="PQ" value="2.3" / > <referenceRange> <observationRange> <text>2.3 -3.5</text> </observationRange> </referenceRange> </ observation> </component> <component> <observation moodCode= "EVN" classCode="OBS"> <templateId root="03.28.840.1.365875.10.4.2 " /> <id nullFlavor="NA" /> <code codeSystem="local" code= "Res60" displayName="Glucose" /> <statusCode code="completed" /> <effectiveTime value="" /> <value unit="mg/dL" xsi:type ="PQ" value="75" /> <referenceRange> <observationRange> <text>70-110</text> </observationRange> </ referenceRange> </observation> </component> <component> <observation moodCode="EVN" classCode="OBS"> <templateId root= "03.28.840.1.088002...4.2" /> <id nullFlavor="NA" /> < code codeSystem="local" code="Res52" displayName="Osmo" /> <statusCode code="completed" /> <effectiveTime value="" /> < value unit="" xsi:type="PQ" value="292" /> <referenceRange> <observationRange> <text>280-295</text> </ observationRange> </referenceRange> </observation> </ component> <component> <observation moodCode="EVN" classCode="OBS"> <templateId root="216.840.1.792696.10..22.4.2" /> <id nullFlavor="NA" /> <code codeSystem="local" code="Res20" displayName= "Potassium" /> <statusCode code="completed" /> <effectiveTime value="" /> <value unit="mmol/L" xsi:type="PQ" value="3.9" /> <referenceRange> <observationRange> <text> 3.5-5.3</text> </observationRange> </referenceRange> </observation> </component> <component> <observation moodCode= "EVN" classCode="OBS"> <templateId root="840.1.102305...4.2 " /> <id nullFlavor="NA" /> <code codeSystem="local" code= "Res19" displayName="Sodium" /> <statusCode code="completed" /> <effectiveTime value="" /> <value unit="mmol/L" xsi:type ="PQ" value="143" /> <referenceRange> <observationRange> <text>134-148</text> </observationRange> </ referenceRange> </observation> </component> <component> <observation moodCode="EVN" classCode="OBS"> <templateId root= "03.28.840.1.771181.10..22.4.2" /> <id nullFlavor="NA" /> < code codeSystem="local" code="Res51" displayName="TBil" /> <statusCode code="completed" /> <effectiveTime value="015763623532" /> < value unit="mg/dL" xsi:type="PQ" value="0.2" /> <referenceRange> <observationRange> <text>0.2-1.2</text> </ observationRange> </referenceRange> </observation> </ component> <component> <observation moodCode="EVN" classCode="OBS"> <templateId root="840.1.515324.11.29.21.4.2" /> <id nullFlavor="NA" /> <code codeSystem="local" code="Res24" displayName= "TP" /> <statusCode code="completed" /> <effectiveTime value= "" /> <value unit="g/dL" xsi:type="PQ" value="5.4" /> <interpretationCode codeSystem="local" code="L" /> <referenceRange > <observationRange> <text>6.0-8.3</text> </ observationRange> </referenceRange> </observation> </ component> </organizer> </entry> <entry> <organizer moodCode="EVN" classCode="BATTERY"> <templateId root="840.1.701806.11.29.21.4.1" /> <id nullFlavor="NA" /> <code codeSystem="local" code="XZR2090" displayName="Protime " /> <statusCode code="completed" /> <component> <observation moodCode="EVN" classCode="OBS"> <templateId root= "03.28.840.1.424714.11.29.21.4.2" /> <id nullFlavor="NA" /> < code codeSystem="local" code="Zsj604" displayName="INR" /> <statusCode code="completed" /> <effectiveTime value="" /> < value unit="" xsi:type="PQ" value="2.1" /> <referenceRange> <observationRange> <text>1.0-4.0</text> </ observationRange> </referenceRange> </observation> </ component> <component> <observation moodCode="EVN" classCode="OBS"> <templateId root="03.28.840.1.316523.11.29.214.2" /> <id nullFlavor="NA" /> <code codeSystem="local" code="[id number]" displayName= "Protime" /> <statusCode code="completed" /> <effectiveTime value="" /> <value unit="Sec" xsi:type="PQ" value="24.6" / > <interpretationCode codeSystem="local" code="H" /> < referenceRange> <observationRange> <text>9.9-12.8</text > </observationRange> </referenceRange> </observation > </component> </organizer> </entry> <entry> <organizer moodCode= "EVN" classCode="BATTERY"> <templateId root="03.28.840.1.981298.11.29.21.4.1 " /> <id nullFlavor="NA" /> <code codeSystem="local" code="OCX4499" displayName="Other Culture" /> <statusCode code="completed" /> < component> <observation moodCode="EVN" classCode="OBS"> < templateId root="840.1.420721.11.29.21.4.2" /> <id nullFlavor="NA " /> <code codeSystem="local" code="Rcz6500" displayName="PRELIM CULTURE RESULTS" /> <statusCode code="completed" /> < effectiveTime value="" /> <value unit="" xsi:type="PQ" value="No Growth 24 hours" /> <referenceRange> < observationRange> <text /> </observationRange> </referenceRange> </observation> </component> <component> <observation moodCode="EVN" classCode="OBS"> <templateId root= "216.840.1.504060.10..4.2" /> <id nullFlavor="NA" /> < code codeSystem="local" code="Xrw7407" displayName="FINAL CULTURE RESULTS" /> <statusCode code="completed" /> <effectiveTime value= "" /> <value unit="" xsi:type="PQ" value="No Growth 48 hours" /> <referenceRange> <observationRange> < text /> </observationRange> </referenceRange> </ observation> </component> </organizer> </entry> <entry> <organizer moodCode="EVN" classCode="BATTERY"> <templateId root= "216.840.1.600854.10...4.1" /> <id nullFlavor="NA" /> <code codeSystem="local" code="996893" displayName="Anaerobic Culture" /> < statusCode code="completed" /> <component> <observation moodCode= "EVN" classCode="OBS"> <templateId root="16.840.1.996153.10..22.4.2 " /> <id nullFlavor="NA" /> <code codeSystem="local" code= "693073" displayName="Anaerobic Culture" /> <statusCode code="completed " /> <effectiveTime value="943198268136" /> <value unit="" xsi :type="PQ" value="Note" /> <referenceRange> < observationRange> <text /> </observationRange> </referenceRange> </observation> </component> </organizer> </ entry> <entry> <organizer moodCode="EVN" classCode="BATTERY"> < templateId root="2.16.840.1.803221.10..22.4.1" /> <id nullFlavor="NA" /> <code codeSystem="local" code="MDJ7864" displayName="Gram Stain" /> < statusCode code="completed" /> <component> <observation moodCode= "EVN" classCode="OBS"> <templateId root="2.16.840.1.245607.10...4.2 " /> <id nullFlavor="NA" /> <code codeSystem="local" code= "Rwt0269" displayName="GRAM STAIN" /> <statusCode code="completed" /> <effectiveTime value="" /> <value unit="" xsi:type ="PQ" value="Gram Positive Cocci in Clusters" /> <referenceRange> <observationRange> <text /> </observationRange> </referenceRange> </observation> </component> < component> <observation moodCode="EVN" classCode="OBS"> < templateId root="2.16.840.1.898947.10...4.2" /> <id nullFlavor="NA " /> <code codeSystem="local" code="Els7336" displayName="CULTURE SOURCE" /> <statusCode code="completed" /> <effectiveTime value="" /> <value unit="" xsi:type="PQ" value="L htcO3U8O\\ " /> <referenceRange> <observationRange> <text /> </observationRange> </referenceRange> </ observation> </component> </organizer> </entry> <entry> <organizer moodCode="EVN" classCode="BATTERY"> <templateId root= "216.840.1.099718.10..4.1" /> <id nullFlavor="NA" /> <code codeSystem="local" code="IBN7193" displayName="Other Culture" /> < statusCode code="completed" /> <component> <observation moodCode= "EVN" classCode="OBS"> <templateId root="03.28.840.1.721547.11.29.21.4.2 " /> <id nullFlavor="NA" /> <code codeSystem="local" code= "Nii6223" displayName="PRELIM CULTURE RESULTS" /> <statusCode code= "completed" /> <effectiveTime value="" /> <value unit="" xsi:type="PQ" value="No Growth 24 hours" /> <referenceRange> <observationRange> <text /> </observationRange > </referenceRange> </observation> </component> </ organizer> </entry> <entry> <organizer moodCode="EVN" classCode="BATTERY"> <templateId root="03.28.840.1.384628.11.29.21.4.1" /> <id nullFlavor= "NA" /> <code codeSystem="local" code="719136" displayName="Anaerobic Culture" /> <statusCode code="completed" /> <component> < observation moodCode="EVN" classCode="OBS"> <templateId root= "216.840.1.286615.10.4.2" /> <id nullFlavor="NA" /> < code codeSystem="local" code="814276" displayName="ANAEROBIC CULTURE" /> <statusCode code="completed" /> <effectiveTime value="" /> <value unit="" xsi:type="PQ" value="FINAL REPORT" /> < referenceRange> <observationRange> <text /> < /observationRange> </referenceRange> </observation> </ component> <component> <observation moodCode="EVN" classCode="OBS"> <templateId root="216.840.1.318887.10..22.4.2" /> <id nullFlavor="NA" /> <code codeSystem="local" code="290215" displayName= "RESULT 1" /> <statusCode code="completed" /> <effectiveTime value="251752310582" /> <value unit="" xsi:type="PQ" value="NO ANAEROBIC GROWTH IN 72 HOURS." /> <referenceRange> < observationRange> <text /> </observationRange> </referenceRange> </observation> </component> </organizer> </ entry> <entry> <organizer moodCode="EVN" classCode="BATTERY"> < templateId root="216.840.1.898072.10..22.4.1" /> <id nullFlavor="NA" /> <code codeSystem="local" code="ORD29" displayName="Magnesium" /> < statusCode code="completed" /> <component> <observation moodCode= "EVN" classCode="OBS"> <templateId root="2.16.840.1.174777.10..22.4.2 " /> <id nullFlavor="NA" /> <code codeSystem="local" code= "Res23" displayName="Mg++" /> <statusCode code="completed" /> <effectiveTime value="250184305468" /> <value unit="mg/dL" xsi:type="PQ " value="2.4" /> <referenceRange> <observationRange> <text>1.6-2.6</text> </observationRange> </ referenceRange> </observation> </component> </organizer> </entry > <entry> <organizer moodCode="EVN" classCode="BATTERY"> <templateId root="16.840.1.230478.10..22.4.1" /> <id nullFlavor="NA" /> <code codeSystem="local" code="ORD3" displayName="Comprehensive Metabolic Panel" /> <statusCode code="completed" /> <component> <observation moodCode="EVN" classCode="OBS"> <templateId root= "16.840.1.771077.10...4.2" /> <id nullFlavor="NA" /> < code codeSystem="local" code="Res44" displayName="Albumin" /> < statusCode code="completed" /> <effectiveTime value="723579358824" /> <value unit="g/dL" xsi:type="PQ" value="3.3" /> < interpretationCode codeSystem="local" code="L" /> <referenceRange> <observationRange> <text>3.6-5.1</text> </ observationRange> </referenceRange> </observation> </ component> <component> <observation moodCode="EVN" classCode="OBS"> <templateId root="03.28.840.1.815685.10..22.4.2" /> <id nullFlavor="NA" /> <code codeSystem="local" code="Res45" displayName= "ALP" /> <statusCode code="completed" /> <effectiveTime value= "083704698246" /> <value unit="U/L" xsi:type="PQ" value="119" /> <referenceRange> <observationRange> <text>35-130</ text> </observationRange> </referenceRange> </ observation> </component> <component> <observation moodCode= "EVN" classCode="OBS"> <templateId root="2.16.840.1.748190.10..22.4.2 " /> <id nullFlavor="NA" /> <code codeSystem="local" code= "Res46" displayName="ALT" /> <statusCode code="completed" /> < effectiveTime value="" /> <value unit="U/L" xsi:type="PQ" value="12" /> <referenceRange> <observationRange> <text>6-45</text> </observationRange> </referenceRange> </observation> </component> <component> <observation moodCode="EVN" classCode="OBS"> <templateId root= "216.840.1.502011.10...4.2" /> <id nullFlavor="NA" /> < code codeSystem="local" code="Res61" displayName="Anion Gap" /> < statusCode code="completed" /> <effectiveTime value="" /> <value unit="" xsi:type="PQ" value="16" /> < interpretationCode codeSystem="local" code="H" /> <referenceRange> <observationRange> <text>6-14</text> </ observationRange> </referenceRange> </observation> </ component> <component> <observation moodCode="EVN" classCode="OBS"> <templateId root="16.840.1.629976.10..22.4.2" /> <id nullFlavor="NA" /> <code codeSystem="local" code="Res48" displayName= "AST" /> <statusCode code="completed" /> <effectiveTime value= "478401201977" /> <value unit="U/L" xsi:type="PQ" value="16" /> <referenceRange> <observationRange> <text>2-40</text > </observationRange> </referenceRange> </observation > </component> <component> <observation moodCode="EVN" classCode="OBS"> <templateId root="216.840.1.520131.10.4.2" /> <id nullFlavor="NA" /> <code codeSystem="local" code="Res26" displayName="BUN" /> <statusCode code="completed" /> < effectiveTime value="" /> <value unit="mg/dL" xsi:type="PQ " value="10" /> <referenceRange> <observationRange> <text>5-25</text> </observationRange> </referenceRange > </observation> </component> <component> <observation moodCode="EVN" classCode="OBS"> <templateId root= "16.840.1.486513.11.29.214.2" /> <id nullFlavor="NA" /> < code codeSystem="local" code="Res5" displayName="Calcium" /> < statusCode code="completed" /> <effectiveTime value="" /> <value unit="mg/dL" xsi:type="PQ" value="8.9" /> < referenceRange> <observationRange> <text>8.3-10.4</text > </observationRange> </referenceRange> </observation > </component> <component> <observation moodCode="EVN" classCode="OBS"> <templateId root="16.840.1.002130.10.22.4.2" /> <id nullFlavor="NA" /> <code codeSystem="local" code="Res21" displayName="Chloride" /> <statusCode code="completed" /> < effectiveTime value="" /> <value unit="mmol/L" xsi:type="PQ " value="105" /> <referenceRange> <observationRange> <text>95-114</text> </observationRange> </ referenceRange> </observation> </component> <component> <observation moodCode="EVN" classCode="OBS"> <templateId root= "16.840.1.780850.10.20.4.2" /> <id nullFlavor="NA" /> < code codeSystem="local" code="Res49" displayName="CO2" /> <statusCode code="completed" /> <effectiveTime value="" /> < value unit="mEq/L" xsi:type="PQ" value="24" /> <referenceRange> <observationRange> <text>22-33</text> </ observationRange> </referenceRange> </observation> </ component> <component> <observation moodCode="EVN" classCode="OBS"> <templateId root="03.28.840.1.049441.10.4.2" /> <id nullFlavor="NA" /> <code codeSystem="local" code="Drn046" displayName= "Creat" /> <statusCode code="completed" /> <effectiveTime value="709459265824" /> <value unit="mg/dL" xsi:type="PQ" value="0.64" /> <referenceRange> <observationRange> <text> 0.50-1.50</text> </observationRange> </referenceRange> </observation> </component> <component> <observation moodCode="EVN" classCode="OBS"> <templateId root= "03.28.840.1.217799.10..4.2" /> <id nullFlavor="NA" /> < code codeSystem="local" code="Nrh273" displayName="eGFR" /> < statusCode code="completed" /> <effectiveTime value="269167263437" /> <value unit="mL/min/1.73m2" xsi:type="PQ" value="92" /> < referenceRange> <observationRange> <text>>59</text> </observationRange> </referenceRange> </observation> </component> <component> <observation moodCode="EVN" classCode ="OBS"> <templateId root="216.840.1.866916.1022.4.2" /> < id nullFlavor="NA" /> <code codeSystem="local" code="Res7" displayName= "Globulin" /> <statusCode code="completed" /> <effectiveTime value="229043342833" /> <value unit="g/dL" xsi:type="PQ" value="3.0" / > <referenceRange> <observationRange> <text>2.3 -3.5</text> </observationRange> </referenceRange> </ observation> </component> <component> <observation moodCode= "EVN" classCode="OBS"> <templateId root="03.28.840.1.521196.11.29.21.4.2 " /> <id nullFlavor="NA" /> <code codeSystem="local" code= "Res60" displayName="Glucose" /> <statusCode code="completed" /> <effectiveTime value="215165559145" /> <value unit="mg/dL" xsi:type ="PQ" value="96" /> <referenceRange> <observationRange> <text>70-110</text> </observationRange> </ referenceRange> </observation> </component> <component> <observation moodCode="EVN" classCode="OBS"> <templateId root= "216.840.1.807126.10.22.4.2" /> <id nullFlavor="NA" /> < code codeSystem="local" code="Res52" displayName="Osmo" /> <statusCode code="completed" /> <effectiveTime value="166072155509" /> < value unit="" xsi:type="PQ" value="290" /> <referenceRange> <observationRange> <text>280-295</text> </ observationRange> </referenceRange> </observation> </ component> <component> <observation moodCode="EVN" classCode="OBS"> <templateId root="03.28.840.1.617836.10..22.4.2" /> <id nullFlavor="NA" /> <code codeSystem="local" code="Res20" displayName= "Potassium" /> <statusCode code="completed" /> <effectiveTime value="225171147057" /> <value unit="mmol/L" xsi:type="PQ" value="3.9" /> <referenceRange> <observationRange> <text> 3.5-5.3</text> </observationRange> </referenceRange> </observation> </component> <component> <observation moodCode= "EVN" classCode="OBS"> <templateId root="03.28.840.1.238912.10..22.4.2 " /> <id nullFlavor="NA" /> <code codeSystem="local" code= "Res19" displayName="Sodium" /> <statusCode code="completed" /> <effectiveTime value="630970256492" /> <value unit="mmol/L" xsi:type ="PQ" value="141" /> <referenceRange> <observationRange> <text>134-148</text> </observationRange> </ referenceRange> </observation> </component> <component> <observation moodCode="EVN" classCode="OBS"> <templateId root= "840.1.737850.22.4.2" /> <id nullFlavor="NA" /> < code codeSystem="local" code="Res51" displayName="TBil" /> <statusCode code="completed" /> <effectiveTime value="618904508470" /> < value unit="mg/dL" xsi:type="PQ" value="0.3" /> <referenceRange> <observationRange> <text>0.2-1.2</text> </ observationRange> </referenceRange> </observation> </ component> <component> <observation moodCode="EVN" classCode="OBS"> <templateId root="840.1.078755.11.29.21.4.2" /> <id nullFlavor="NA" /> <code codeSystem="local" code="Res24" displayName= "TP" /> <statusCode code="completed" /> <effectiveTime value= "029968427362" /> <value unit="g/dL" xsi:type="PQ" value="6.3" /> <referenceRange> <observationRange> <text>6.0-8.3</ text> </observationRange> </referenceRange> </ observation> </component> </organizer> </entry> <entry> <organizer moodCode="EVN" classCode="BATTERY"> <templateId root= "840.1.540353.11.29.21.4.1" /> <id nullFlavor="NA" /> <code codeSystem="local" code="SCI7950" displayName="Protime " /> <statusCode code="completed" /> <component> <observation moodCode="EVN" classCode="OBS"> <templateId root="840.1.879313.22.4.2" /> <id nullFlavor="NA" /> <code codeSystem="local" code="Kgu672" displayName="INR" /> <statusCode code="completed" /> < effectiveTime value="433730733490" /> <value unit="" xsi:type="PQ" value="2.7" /> <referenceRange> <observationRange> <text>1.0-4.0</text> </observationRange> </ referenceRange> </observation> </component> <component> <observation moodCode="EVN" classCode="OBS"> <templateId root= "840.1.165949.10.4.2" /> <id nullFlavor="NA" /> < code codeSystem="local" code="Fvv6106" displayName="Protime" /> < statusCode code="completed" /> <effectiveTime value="177995523563" /> <value unit="Sec" xsi:type="PQ" value="32.3" /> < interpretationCode codeSystem="local" code="H" /> <referenceRange> <observationRange> <text>9.9-12.8</text> </ observationRange> </referenceRange> </observation> </ component> </organizer> </entry> <entry> <organizer moodCode="EVN" classCode="BATTERY"> <templateId root="840.1.435905.1022.4.1" /> <id nullFlavor="NA" /> <code codeSystem="local" code="FNX4766" displayName="Protime " /> <statusCode code="completed" /> <component> <observation moodCode="EVN" classCode="OBS"> <templateId root= "840.1.346810.102022.4.2" /> <id nullFlavor="NA" /> < code codeSystem="local" code="Hmt401" displayName="INR" /> <statusCode code="completed" /> <effectiveTime value="883239213338" /> < value unit="" xsi:type="PQ" value="3.3" /> <referenceRange> <observationRange> <text>1.0-4.0</text> </ observationRange> </referenceRange> </observation> </ component> <component> <observation moodCode="EVN" classCode="OBS"> <templateId root="840.1.137475.11.29.21.4.2" /> <id nullFlavor="NA" /> <code codeSystem="local" code="Mob4969" displayName= "Protime" /> <statusCode code="completed" /> <effectiveTime value="141294485652" /> <value unit="Sec" xsi:type="PQ" value="39.3" / > <interpretationCode codeSystem="local" code="H" /> < referenceRange> <observationRange> <text>9.9-12.8</text > </observationRange> </referenceRange> </observation > </component> </organizer> </entry> <entry> <organizer moodCode= "EVN" classCode="BATTERY"> <templateId root="840.1.226466.11.29.21.4.1 " /> <id nullFlavor="NA" /> <code codeSystem="local" code="NNM6597" displayName="Protime " /> <statusCode code="completed" /> <component> <observation moodCode="EVN" classCode="OBS"> <templateId root= "03.28.840.1.402039.22.4.2" /> <id nullFlavor="NA" /> < code codeSystem="local" code="Lga284" displayName="INR" /> <statusCode code="completed" /> <effectiveTime value="" /> < value unit="" xsi:type="PQ" value="3.1" /> <referenceRange> <observationRange> <text>1.0-4.0</text> </ observationRange> </referenceRange> </observation> </ component> <component> <observation moodCode="EVN" classCode="OBS"> <templateId root="840.1.951641.11.29.21.4.2" /> <id nullFlavor="NA" /> <code codeSystem="local" code="Sqe3158" displayName= "Protime" /> <statusCode code="completed" /> <effectiveTime value="" /> <value unit="Sec" xsi:type="PQ" value="37.3" / > <interpretationCode codeSystem="local" code="H" /> < referenceRange> <observationRange> <text>9.9-12.8</text > </observationRange> </referenceRange> </observation > </component> </organizer> </entry> <entry> <organizer moodCode= "EVN" classCode="BATTERY"> <templateId root="840.1.350094.11.29.21.4.1 " /> <id nullFlavor="NA" /> <code codeSystem="local" code="ORD3" displayName="Comprehensive Metabolic Panel" /> <statusCode code="completed " /> <component> <observation moodCode="EVN" classCode="OBS"> <templateId root="840.1.932920.10.4.2" /> <id nullFlavor ="NA" /> <code codeSystem="local" code="Res44" displayName="Albumin" / > <statusCode code="completed" /> <effectiveTime value= "396224954885" /> <value unit="g/dL" xsi:type="PQ" value="3.7" /> <referenceRange> <observationRange> <text>3.6-5.1</ text> </observationRange> </referenceRange> </ observation> </component> <component> <observation moodCode= "EVN" classCode="OBS"> <templateId root="16.840.1.167301.10..4.2 " /> <id nullFlavor="NA" /> <code codeSystem="local" code= "Res45" displayName="ALP" /> <statusCode code="completed" /> < effectiveTime value="687020994651" /> <value unit="U/L" xsi:type="PQ" value="145" /> <interpretationCode codeSystem="local" code="H" /> <referenceRange> <observationRange> <text>35-130</ text> </observationRange> </referenceRange> </ observation> </component> <component> <observation moodCode= "EVN" classCode="OBS"> <templateId root="03.28.840.1.626078.11.29.21.4.2 " /> <id nullFlavor="NA" /> <code codeSystem="local" code= "Res46" displayName="ALT" /> <statusCode code="completed" /> < effectiveTime value="585953565327" /> <value unit="U/L" xsi:type="PQ" value="11" /> <referenceRange> <observationRange> <text>6-45</text> </observationRange> </referenceRange> </observation> </component> <component> <observation moodCode="EVN" classCode="OBS"> <templateId root= "16.840.1.986074...4.2" /> <id nullFlavor="NA" /> < code codeSystem="local" code="Res61" displayName="Anion Gap" /> < statusCode code="completed" /> <effectiveTime value="321797643134" /> <value unit="" xsi:type="PQ" value="16" /> < interpretationCode codeSystem="local" code="H" /> <referenceRange> <observationRange> <text>6-14</text> </ observationRange> </referenceRange> </observation> </ component> <component> <observation moodCode="EVN" classCode="OBS"> <templateId root="2.16.840.1.577190.10..22.4.2" /> <id nullFlavor="NA" /> <code codeSystem="local" code="Res48" displayName= "AST" /> <statusCode code="completed" /> <effectiveTime value= "764285390441" /> <value unit="U/L" xsi:type="PQ" value="17" /> <referenceRange> <observationRange> <text>2-40</text > </observationRange> </referenceRange> </observation > </component> <component> <observation moodCode="EVN" classCode="OBS"> <templateId root="2.16.840.1.067399.10..22.4.2" /> <id nullFlavor="NA" /> <code codeSystem="local" code="Res26" displayName="BUN" /> <statusCode code="completed" /> < effectiveTime value="718187401709" /> <value unit="mg/dL" xsi:type="PQ " value="16" /> <referenceRange> <observationRange> <text>5-25</text> </observationRange> </referenceRange > </observation> </component> <component> <observation moodCode="EVN" classCode="OBS"> <templateId root= "16.840.1.829777.10.20.22.4.2" /> <id nullFlavor="NA" /> < code codeSystem="local" code="Res5" displayName="Calcium" /> < statusCode code="completed" /> <effectiveTime value="403254664365" /> <value unit="mg/dL" xsi:type="PQ" value="9.3" /> < referenceRange> <observationRange> <text>8.3-10.4</text > </observationRange> </referenceRange> </observation > </component> <component> <observation moodCode="EVN" classCode="OBS"> <templateId root="03.28.840.1.497461.10.22.4.2" /> <id nullFlavor="NA" /> <code codeSystem="local" code="Res21" displayName="Chloride" /> <statusCode code="completed" /> < effectiveTime value="988519491502" /> <value unit="mmol/L" xsi:type="PQ " value="103" /> <referenceRange> <observationRange> <text>95-114</text> </observationRange> </ referenceRange> </observation> </component> <component> <observation moodCode="EVN" classCode="OBS"> <templateId root= "03.28.840.1.272114.10.20.22.4.2" /> <id nullFlavor="NA" /> < code codeSystem="local" code="Res49" displayName="CO2" /> <statusCode code="completed" /> <effectiveTime value="453942819432" /> < value unit="mEq/L" xsi:type="PQ" value="28" /> <referenceRange> <observationRange> <text>22-33</text> </ observationRange> </referenceRange> </observation> </ component> <component> <observation moodCode="EVN" classCode="OBS"> <templateId root="2.16.840.1.570377.10.4.2" /> <id nullFlavor="NA" /> <code codeSystem="local" code="Ilg250" displayName= "Creat" /> <statusCode code="completed" /> <effectiveTime value="252339014671" /> <value unit="mg/dL" xsi:type="PQ" value="0.72" /> <referenceRange> <observationRange> <text> 0.50-1.50</text> </observationRange> </referenceRange> </observation> </component> <component> <observation moodCode="EVN" classCode="OBS"> <templateId root= "216.840.1.467284.11.29.21.4.2" /> <id nullFlavor="NA" /> < code codeSystem="local" code="Icx184" displayName="eGFR" /> < statusCode code="completed" /> <effectiveTime value="142929294790" /> <value unit="mL/min/1.73m2" xsi:type="PQ" value="80" /> < referenceRange> <observationRange> <text>>59</text> </observationRange> </referenceRange> </observation> </component> <component> <observation moodCode="EVN" classCode ="OBS"> <templateId root="216.840.1.030912...4.2" /> < id nullFlavor="NA" /> <code codeSystem="local" code="Res7" displayName= "Globulin" /> <statusCode code="completed" /> <effectiveTime value="132063229477" /> <value unit="g/dL" xsi:type="PQ" value="2.5" / > <referenceRange> <observationRange> <text>2.3 -3.5</text> </observationRange> </referenceRange> </ observation> </component> <component> <observation moodCode= "EVN" classCode="OBS"> <templateId root="16.840.1.699764.10...4.2 " /> <id nullFlavor="NA" /> <code codeSystem="local" code= "Res60" displayName="Glucose" /> <statusCode code="completed" /> <effectiveTime value="949832574038" /> <value unit="mg/dL" xsi:type ="PQ" value="99" /> <referenceRange> <observationRange> <text>70-110</text> </observationRange> </ referenceRange> </observation> </component> <component> <observation moodCode="EVN" classCode="OBS"> <templateId root= "03.28.840.1.388324.10...4.2" /> <id nullFlavor="NA" /> < code codeSystem="local" code="Res52" displayName="Osmo" /> <statusCode code="completed" /> <effectiveTime value="228841573434" /> < value unit="" xsi:type="PQ" value="296" /> <interpretationCode codeSystem="local" code="H" /> <referenceRange> < observationRange> <text>280-295</text> </ observationRange> </referenceRange> </observation> </ component> <component> <observation moodCode="EVN" classCode="OBS"> <templateId root="03.28.840.1.389726.10..22.4.2" /> <id nullFlavor="NA" /> <code codeSystem="local" code="Res20" displayName= "Potassium" /> <statusCode code="completed" /> <effectiveTime value="640111338970" /> <value unit="mmol/L" xsi:type="PQ" value="4.3" /> <referenceRange> <observationRange> <text> 3.5-5.3</text> </observationRange> </referenceRange> </observation> </component> <component> <observation moodCode= "EVN" classCode="OBS"> <templateId root="216.840.1.862121.10.20.22.4.2 " /> <id nullFlavor="NA" /> <code codeSystem="local" code= "Res19" displayName="Sodium" /> <statusCode code="completed" /> <effectiveTime value="219999622411" /> <value unit="mmol/L" xsi:type ="PQ" value="143" /> <referenceRange> <observationRange> <text>134-148</text> </observationRange> </ referenceRange> </observation> </component> <component> <observation moodCode="EVN" classCode="OBS"> <templateId root= "16.840.1.428897.10.20.22.4.2" /> <id nullFlavor="NA" /> < code codeSystem="local" code="Res51" displayName="TBil" /> <statusCode code="completed" /> <effectiveTime value="229297675576" /> < value unit="mg/dL" xsi:type="PQ" value="0.4" /> <referenceRange> <observationRange> <text>0.2-1.2</text> </ observationRange> </referenceRange> </observation> </ component> <component> <observation moodCode="EVN" classCode="OBS"> <templateId root="03.28.840.1.275295.22.4.2" /> <id nullFlavor="NA" /> <code codeSystem="local" code="Res24" displayName= "TP" /> <statusCode code="completed" /> <effectiveTime value= "751110700214" /> <value unit="g/dL" xsi:type="PQ" value="6.2" /> <referenceRange> <observationRange> <text>6.0-8.3</ text> </observationRange> </referenceRange> </ observation> </component> </organizer> </entry> <entry> <organizer moodCode="EVN" classCode="BATTERY"> <templateId root= "840.1.709226.11.29.21.4.1" /> <id nullFlavor="NA" /> <code codeSystem="local" code="HAT5205" displayName="Protime " /> <statusCode code="completed" /> <component> <observation moodCode="EVN" classCode="OBS"> <templateId root="03.28.840.1.536398.11.29.21.4.2" /> <id nullFlavor="NA" /> <code codeSystem="local" code="Sql041" displayName="INR" /> <statusCode code="completed" /> < effectiveTime value="470802744437" /> <value unit="" xsi:type="PQ" value="2.6" /> <referenceRange> <observationRange> <text>1.0-4.0</text> </observationRange> </ referenceRange> </observation> </component> <component> <observation moodCode="EVN" classCode="OBS"> <templateId root= "840.1.209030.22.4.2" /> <id nullFlavor="NA" /> < code codeSystem="local" code="Lcu8216" displayName="Protime" /> < statusCode code="completed" /> <effectiveTime value="688341511750" /> <value unit="Sec" xsi:type="PQ" value="31.4" /> < interpretationCode codeSystem="local" code="H" /> <referenceRange> <observationRange> <text>9.9-12.8</text> </ observationRange> </referenceRange> </observation> </ component> </organizer> </entry> <entry> <organizer moodCode="EVN" classCode="BATTERY"> <templateId root="216.840.1.177025.10..22.4.1" /> <id nullFlavor="NA" /> <code codeSystem="local" code="PSV3485" displayName="Urine Culture" /> <statusCode code="completed" /> < component> <observation moodCode="EVN" classCode="OBS"> < templateId root="216.840.1.480869.10..22.4.2" /> <id nullFlavor="NA " /> <code codeSystem="local" code="Qpf8105" displayName="PRELIM CULTURE RESULTS" /> <statusCode code="completed" /> < effectiveTime value="643318296288" /> <value unit="" xsi:type="PQ" value="No Growth 24 hours" /> <referenceRange> < observationRange> <text /> </observationRange> </referenceRange> </observation> </component> <component> <observation moodCode="EVN" classCode="OBS"> <templateId root= "216.840.1.995835.10..22.4.2" /> <id nullFlavor="NA" /> < code codeSystem="local" code="Vjf9204" displayName="FINAL CULTURE RESULTS" /> <statusCode code="completed" /> <effectiveTime value= "" /> <value unit="" xsi:type="PQ" value="No Growth 48 hours" /> <referenceRange> <observationRange> < text /> </observationRange> </referenceRange> </ observation> </component> <component> <observation moodCode= "EVN" classCode="OBS"> <templateId root="216.840.1.794679.10..4.2 " /> <id nullFlavor="NA" /> <code codeSystem="local" code= "Ill1541" displayName="MEDIA PLATED" /> <statusCode code="completed" / > <effectiveTime value="" /> <value unit="" xsi: type="PQ" value="Setup at 13:30 on 03/30/2018" /> <referenceRange> <observationRange> <text /> </observationRange> </referenceRange> </observation> </component> < component> <observation moodCode="EVN" classCode="OBS"> < templateId root="216.840.1.614945.11.29.21.4.2" /> <id nullFlavor="NA " /> <code codeSystem="local" code="Hur6825" displayName="CULTURE SOURCE" /> <statusCode code="completed" /> <effectiveTime value="" /> <value unit="" xsi:type="PQ" value="Cath" /> <referenceRange> <observationRange> <text /> </observationRange> </referenceRange> </observation> </component> </organizer> </entry> <entry> <organizer moodCode="EVN " classCode="BATTERY"> <templateId root="2.16.840.1.522613.10..4.1" / > <id nullFlavor="NA" /> <code codeSystem="local" code="ORD68" displayName="Urinalysis" /> <statusCode code="completed" /> <component > <observation moodCode="EVN" classCode="OBS"> <templateId root= "16.840.1.577736.10..4.2" /> <id nullFlavor="NA" /> < code codeSystem="local" code="Yws7006" displayName="Icotest" /> < statusCode code="completed" /> <effectiveTime value="801241528513" /> <value unit="" xsi:type="PQ" value="N/A" /> < interpretationCode codeSystem="local" code="A" /> <referenceRange> <observationRange> <text>Negative</text> </ observationRange> </referenceRange> </observation> </ component> <component> <observation moodCode="EVN" classCode="OBS"> <templateId root="840.1.721211.11.29.21.4.2" /> <id nullFlavor="NA" /> <code codeSystem="local" code="Ibf194" displayName= "Urine Volume" /> <statusCode code="completed" /> < effectiveTime value="011807733053" /> <value unit="" xsi:type="PQ" value="Urine Volume Sufficient (10mL)" /> <referenceRange> < observationRange> <text /> </observationRange> </referenceRange> </observation> </component> <component> <observation moodCode="EVN" classCode="OBS"> <templateId root= "03.28.840.1.252773.10..4.2" /> <id nullFlavor="NA" /> < code codeSystem="local" code="Xes345" displayName="Urine-Appearance" /> <statusCode code="completed" /> <effectiveTime value="" / > <value unit="" xsi:type="PQ" value="Clear" /> < referenceRange> <observationRange> <text>Clear</text> </observationRange> </referenceRange> </observation> </component> <component> <observation moodCode="EVN" classCode= "OBS"> <templateId root="216.840.1.647335.10..4.2" /> < id nullFlavor="NA" /> <code codeSystem="local" code="Dyb155" displayName="Urine-Bacteria" /> <statusCode code="completed" /> <effectiveTime value="" /> <value unit="" xsi:type="PQ" value="Negative" /> <referenceRange> <observationRange> <text> </text> </observationRange> </ referenceRange> </observation> </component> <component> <observation moodCode="EVN" classCode="OBS"> <templateId root= "216.840.1.492006.11.29.21.4.2" /> <id nullFlavor="NA" /> < code codeSystem="local" code="Iev137" displayName="Urine-Bilirubin" /> <statusCode code="completed" /> <effectiveTime value="" /> <value unit="" xsi:type="PQ" value="Negative" /> < referenceRange> <observationRange> <text>Negative</text > </observationRange> </referenceRange> </observation > </component> <component> <observation moodCode="EVN" classCode="OBS"> <templateId root="216.840.1.406833.10..4.2" /> <id nullFlavor="NA" /> <code codeSystem="local" code="Mkp792" displayName="Urine-Blood" /> <statusCode code="completed" /> < effectiveTime value="" /> <value unit="" xsi:type="PQ" value="Negative" /> <referenceRange> <observationRange> <text>Negative</text> </observationRange> </ referenceRange> </observation> </component> <component> <observation moodCode="EVN" classCode="OBS"> <templateId root= "216.840.1.640413.10.4.2" /> <id nullFlavor="NA" /> < code codeSystem="local" code="Fww833" displayName="Urine-Color" /> < statusCode code="completed" /> <effectiveTime value="" /> <value unit="" xsi:type="PQ" value="Yellow" /> <referenceRange > <observationRange> <text>Colorless-Lt. Yellow</text> </observationRange> </referenceRange> </observation> </component> <component> <observation moodCode="EVN" classCode ="OBS"> <templateId root="216.840.1.012694.10.4.2" /> < id nullFlavor="NA" /> <code codeSystem="local" code="Xgc534" displayName="Urine-Epithelial Cells" /> <statusCode code="completed" / > <effectiveTime value="" /> <value unit="" xsi: type="PQ" value="0-5/HPF" /> <interpretationCode codeSystem="local" code="A" /> <referenceRange> <observationRange> <text> </text> </observationRange> </referenceRange> </observation> </component> <component> <observation moodCode="EVN" classCode="OBS"> <templateId root= "216.840.1.737085.11.29.21.4.2" /> <id nullFlavor="NA" /> < code codeSystem="local" code="Qfj649" displayName="Urine-Glucose" /> < statusCode code="completed" /> <effectiveTime value="" /> <value unit="" xsi:type="PQ" value="Negative" /> < referenceRange> <observationRange> <text>Negative</text > </observationRange> </referenceRange> </observation > </component> <component> <observation moodCode="EVN" classCode="OBS"> <templateId root="216.840.1.139744.11.29.21.4.2" /> <id nullFlavor="NA" /> <code codeSystem="local" code="Duw573" displayName="Urine-Ketones" /> <statusCode code="completed" /> <effectiveTime value="" /> <value unit="" xsi:type="PQ" value="Negative" /> <referenceRange> <observationRange> <text>Negative</text> </observationRange> </ referenceRange> </observation> </component> <component> <observation moodCode="EVN" classCode="OBS"> <templateId root= "2.16.840.1.981054...4.2" /> <id nullFlavor="NA" /> < code codeSystem="local" code="Igw364" displayName="Urine-Leukocytes" /> <statusCode code="completed" /> <effectiveTime value="" / > <value unit="" xsi:type="PQ" value="Negative" /> < referenceRange> <observationRange> <text>Negative</text > </observationRange> </referenceRange> </observation > </component> <component> <observation moodCode="EVN" classCode="OBS"> <templateId root="216.840.1.714533.10..22.4.2" /> <id nullFlavor="NA" /> <code codeSystem="local" code="Mlb307" displayName="Urine-Nitrite" /> <statusCode code="completed" /> <effectiveTime value="" /> <value unit="" xsi:type="PQ" value="Negative" /> <referenceRange> <observationRange> <text>Negative</text> </observationRange> </ referenceRange> </observation> </component> <component> <observation moodCode="EVN" classCode="OBS"> <templateId root= "16.840.1.523428.10...4.2" /> <id nullFlavor="NA" /> < code codeSystem="local" code="Qez524" displayName="Urine-Other" /> < statusCode code="completed" /> <effectiveTime value="" /> <value unit="" xsi:type="PQ" value="Culture to follow" /> < interpretationCode codeSystem="local" code="A" /> <referenceRange> <observationRange> <text> </text> </ observationRange> </referenceRange> </observation> </ component> <component> <observation moodCode="EVN" classCode="OBS"> <templateId root="03.28.840.1.162334.10...4.2" /> <id nullFlavor="NA" /> <code codeSystem="local" code="Sfe391" displayName= "Urine-pH" /> <statusCode code="completed" /> <effectiveTime value="" /> <value unit="" xsi:type="PQ" value="6.0" /> <referenceRange> <observationRange> <text>5-8.5</ text> </observationRange> </referenceRange> </ observation> </component> <component> <observation moodCode= "EVN" classCode="OBS"> <templateId root="216.840.1.076538.1022.4.2 " /> <id nullFlavor="NA" /> <code codeSystem="local" code= "Etb955" displayName="Urine-Protein" /> <statusCode code="completed" / > <effectiveTime value="" /> <value unit="" xsi: type="PQ" value="Negative" /> <referenceRange> < observationRange> <text>Negative</text> </ observationRange> </referenceRange> </observation> </ component> <component> <observation moodCode="EVN" classCode="OBS"> <templateId root="216.840.1.347389.11.29.21.4.2" /> <id nullFlavor="NA" /> <code codeSystem="local" code="Baf675" displayName= "Urine-RBC" /> <statusCode code="completed" /> <effectiveTime value="" /> <value unit="" xsi:type="PQ" value="Negative" / > <referenceRange> <observationRange> <text> </ text> </observationRange> </referenceRange> </ observation> </component> <component> <observation moodCode= "EVN" classCode="OBS"> <templateId root="216.840.1.764016.1022.4.2 " /> <id nullFlavor="NA" /> <code codeSystem="local" code= "Fvf209" displayName="Urine-Specific [place]" /> <statusCode code= "completed" /> <effectiveTime value="388722853035" /> <value unit="" xsi:type="PQ" value="1.010" /> <referenceRange> < observationRange> <text>1.000-1.030</text> </ observationRange> </referenceRange> </observation> </ component> <component> <observation moodCode="EVN" classCode="OBS"> <templateId root="2.16.840.1.872936.10.20.22.4.2" /> <id nullFlavor="NA" /> <code codeSystem="local" code="Cdv332" displayName= "Urine-WBC" /> <statusCode code="completed" /> <effectiveTime value="992495595869" /> <value unit="" xsi:type="PQ" value="0-2/HPF" / > <interpretationCode codeSystem="local" code="A" /> < referenceRange> <observationRange> <text> </text> </observationRange> </referenceRange> </observation> </component> <component> <observation moodCode="EVN" classCode="OBS "> <templateId root="2.16.840.1.299102.10.20.22.4.2" /> <id nullFlavor="NA" /> <code codeSystem="local" code="Wqo641" displayName= "Urobilinogen" /> <statusCode code="completed" /> < effectiveTime value="801338065609" /> <value unit="" xsi:type="PQ" value="0.2 E.U./dL" /> <interpretationCode codeSystem="local" code="A" /> <referenceRange> <observationRange> <text> 0.2-1.0</text> </observationRange> </referenceRange> </observation> </component> </organizer> </entry></section> Encounters ACCT No. Visit Date/Time Discharge Status Pt. Type Provider Facility Loc./Unit Complaint [id number] 03/20/2018 13:21:00 Document Registration [id number] 01/15/2018 16:28:00 01/18/2018 13:16:00 DIS Inpatient Yordy COLE, [facility] W.4TS [id number] 11/03/2017 04:13:00 11/11/2017 15:22:00 DIS Inpatient Ras COLE, [facility] W.9TS [id number] 08/25/2017 08:40:00 08/28/2017 16:38:00 DIS Inpatient Ras COLE, [facility] W.9TN [id number] 08/05/2017 13:40:00 08/05/2017 13:40:00 DIS Outpatient Ras COLE, [facility] W.POA [id number] 06/27/2017 13:49:00 06/27/2017 13:49:00 DIS Outpatient Ras COLE, [facility] W.TIMBO [id number] 10/08/2016 11:31:00 10/17/2016 13:50:00 DIS Inpatient Sarahy COLE, [facility] W.8TN [id number] 09/19/2016 15:07:00 09/22/2016 10:18:00 DIS Inpatient Ras COLE, [facility] W.9TS [id number] 07/17/2016 08:06:00 07/20/2016 12:07:00 DIS Inpatient Ras COLE, [facility] W.9TS [id number] 03/14/2018 18:05:00 Document Registration [id number] 12/22/2015 16:47:04 12/22/2015 23:59:59 CLS Outpatient Travis Jaimes [id number] 01/23/2018 09:06:00 02/13/2018 10:30:00 DIS Inpatient MYLA BIRCH MD [facility] IRF LEFT HIP FRACTURE [id number] 12/16/2017 09:00:00 01/06/2018 12:01:00 DIS Inpatient DARON SANTANA DO [facility] IRF S/P LEFT TKR [id number] 03/07/2017 09:14:00 03/07/2017 23:59:59 CLS Preadmit FAHEEM COLE, DEVI Okeefe [facility] RAD DYSPHAGIA--LET OFFICE TO KNOW TO BE MORE SPECIFIC [id number] 04/25/2016 10:06:00 04/25/2016 23:59:59 CLS Outpatient SHAQUILLE CEHSTER MD [facility] LAB CHEST PAIN SYNDROME, CHRONIC PAIN SYNDROME [id number] 01/12/2016 11:10:00 02/06/2016 16:00:00 DIS Outpatient JOSELITO HACKETT MD [facility] WOUNDCARE [id number] 11/06/2015 11:36:00 11/13/2015 09:20:00 DIS Outpatient JOSELITO HACKETT MD [facility] WOUNDCARE [id number] 10/26/2015 11:06:00 10/26/2015 23:59:59 CLS Outpatient JOSELITO HACKETT MD [facility] RAD PAD [id number] 10/12/2015 08:04:00 10/12/2015 23:59:59 CLS Outpatient JOSELITO HACKETT MD [facility] RAD DVT [id number] 07/09/2012 10:48:00 07/09/2012 11:48:00 DIS Outpatient FRANCISCO J MOYA DO F [facility] REHAB DJD L SHOULDER [id number] 04/05/2018 15:25:00 PEN Preadmit JODY SANTANA DOI DEBILITY [id number] 05/19/2012 10:00:00 Document Registration [id number] 04/13/2012 10:17:00 Document Registration [id number] 04/05/2011 16:35:00 Document Registration [id number] 07/12/2016 13:20:00 07/12/2016 13:20:00 DIS Inpatient ENMA MCGINNIS [facility] 002 [id number] 03/23/2018 18:10:00 Document Registration [id number] 03/30/2018 09:18:00 Document Registration [id number] 03/17/2017 08:20:00 Document Registration [id number] 06/17/2016 00:00:00 Document Registration [id number] 00:00:00 Document Registration [id number] 03/30/2018 09:18:00 03/30/2018 13:34:00 DIS Outpatient Randolph Brie Sary [facility] ER [id number] 03/24/2018 14:23:00 03/24/2018 23:59:00 DIS Outpatient Devi Vasquez [id number] 03/22/2018 13:58:00 03/22/2018 23:59:00 DIS Outpatient Devi Vasquez [id number] 03/14/2018 18:05:00 03/21/2018 11:20:00 DIS Inpatient [facility] [id number] 03/13/2018 11:42:00 03/13/2018 23:59:00 DIS Outpatient Faheem Devi [id number] 03/09/2018 14:01:00 03/09/2018 23:59:00 DIS Outpatient Devi Vasquez [id number] 03/02/2018 14:39:00 03/02/2018 23:59:00 DIS Outpatient Devi Vasquez [id number] 02/18/2018 11:10:00 02/18/2018 12:00:00 DIS Outpatient Daron Santana [id number] 02/16/2018 10:13:00 02/16/2018 11:25:00 DIS Outpatient Daron Santana [id number] 02/14/2018 10:36:00 02/14/2018 11:12:00 DIS Outpatient Daron Santana [id number] 01/19/2018 14:59:00 01/19/2018 23:59:00 DIS Outpatient Faheem Devi [id number] 01/15/2018 08:27:00 01/15/2018 12:50:00 DIS Outpatient SASHA VILLANUEVA [facility] ER [id number] 12/15/2017 11:14:00 12/15/2017 23:59:00 DIS Outpatient Faheem Devi [id number] 08/02/2017 14:00:00 08/02/2017 23:59:00 DIS Outpatient FaheemDevi [id number] 07/31/2017 09:23:00 07/31/2017 23:59:00 DIS Outpatient Faheem Devi [id number] 07/26/2017 09:40:00 07/28/2017 09:40:00 DIS Inpatient [facility] MED-SURG [id number] 07/18/2017 17:58:00 07/18/2017 23:59:00 DIS Outpatient Devi Vasquez [id number] 06/12/2017 15:51:00 06/12/2017 23:59:00 DIS Outpatient NATALIE ESTRADA [id number] 01/01/2017 08:42:00 06/02/2017 10:10:00 DIS Outpatient eDvi Vasquez [id number] 05/12/2017 12:12:00 05/12/2017 23:59:00 DIS Outpatient Devi Vasquez [id number] 05/06/2017 13:46:00 05/06/2017 16:55:00 DIS Outpatient Martir Castillo [id number] 05/05/2017 10:53:00 05/05/2017 23:59:00 DIS Outpatient Devi Vasquez [id number] 04/21/2017 13:39:00 04/21/2017 23:59:00 DIS Outpatient Devi Vasquez [id number] 04/17/2017 13:32:00 04/17/2017 23:59:00 DIS Outpatient Devi Vasquez [id number] 04/03/2017 12:03:00 04/05/2017 10:00:00 DIS Outpatient [facility] MED-SURG [id number] 03/29/2017 11:34:00 03/29/2017 23:59:00 DIS Outpatient Devi Vasquez [id number] 03/27/2017 14:55:00 03/27/2017 23:59:00 DIS Outpatient Devi Vasquez [id number] 03/17/2017 08:20:00 03/21/2017 09:15:00 DIS Inpatient [facility] [id number] 03/10/2017 15:10:00 03/10/2017 15:17:00 DIS Outpatient JonathanMartir [id number] 03/04/2017 15:04:00 03/04/2017 16:45:00 DIS Outpatient Jonathan [facility] [id number] 02/07/2017 09:52:00 02/07/2017 23:59:00 DIS Outpatient Devi Vasquez [id number] 01/22/2017 09:51:00 01/22/2017 23:59:00 DIS Outpatient Faheem Devi [id number] 11/14/2016 11:15:00 12/27/2016 12:01:00 DIS Outpatient Faheem, Devi [id number] 12/19/2016 12:15:00 12/19/2016 23:59:00 DIS Outpatient Faheem, Devi [id number] 12/05/2016 15:07:00 12/05/2016 23:59:00 DIS Outpatient Faheem, Devi [id number] 11/21/2016 12:55:00 11/21/2016 23:59:00 DIS Outpatient Faheem, Devi [id number] 11/21/2016 14:41:00 11/21/2016 14:41:00 CAN Outpatient [facility], Y [id number] 11/14/2016 15:39:00 11/14/2016 23:59:00 DIS Outpatient Devi Vasquez [id number] 08/03/2016 00:00:00 10/01/2016 08:47:00 DIS Outpatient Devi Vasquez [id number] 09/17/2016 12:30:00 09/17/2016 23:59:00 DIS Outpatient Devi Vasquez [id number] 09/13/2016 17:55:00 09/16/2016 07:32:00 [id number] 09/13/2016 10:31:00 09/13/2016 23:59:00 DIS Outpatient Faheem Devi [id number] 09/13/2016 17:55:00 09/13/2016 18:49:00 DIS Outpatient Martir Castillo [id number] 09/11/2016 14:43:00 09/11/2016 17:19:00 DIS Outpatient Mercy Alvarez [facility] ER [id number] 09/03/2016 10:16:00 09/03/2016 23:59:00 DIS Outpatient Faheem Devi [id number] 08/26/2016 15:12:00 08/26/2016 23:59:00 DIS Outpatient FaheemDevi [id number] 08/20/2016 09:39:00 08/20/2016 11:35:00 DIS Outpatient Martir Castillo [id number] 08/19/2016 11:02:00 08/19/2016 23:59:00 DIS Outpatient Faheem Devi [id number] 08/16/2016 10:23:00 08/16/2016 23:59:00 DIS Outpatient Devi Vasquez [id number] 08/14/2016 12:15:00 08/14/2016 23:59:00 DIS Outpatient Devi Vasquez [id number] 08/07/2016 11:26:00 08/07/2016 23:59:00 DIS Outpatient Devi Vasquez [id number] 07/15/2016 16:03:00 07/15/2016 23:59:00 DIS Outpatient Devi Vasquez [id number] 07/10/2016 14:07:00 07/10/2016 23:59:00 DIS Outpatient Devi Vasquez [id number] 07/06/2016 20:03:00 07/06/2016 22:00:00 DIS Outpatient [facility] [id number] 07/04/2016 09:16:00 07/04/2016 23:59:00 DIS Outpatient Devi Vasquez [id number] 07/01/2016 11:37:00 07/01/2016 23:59:00 DIS Outpatient Devi Vasquez [id number] 06/27/2016 15:29:00 06/27/2016 23:59:00 DIS Outpatient Devi Vasquez [id number] 06/20/2016 14:17:00 06/20/2016 23:59:00 DIS Outpatient Devi Vasquez [id number] 06/14/2016 11:14:00 06/14/2016 23:59:00 DIS Outpatient Devi Vasquez [id number] 05/27/2016 11:30:00 05/27/2016 23:59:00 DIS Outpatient Devi Vasquez [id number] 05/15/2016 10:27:00 05/15/2016 23:59:00 DIS Outpatient Devi Vasquez [id number] 05/13/2016 11:42:00 05/13/2016 23:59:00 DIS Outpatient Faheem, Devi [id number] 05/10/2016 10:57:00 05/10/2016 23:59:00 DIS Outpatient Devi Vasquez [id number] 04/29/2016 23:43:00 05/04/2016 11:55:00 DIS Inpatient [facility] MED-SURG [id number] 04/29/2016 12:38:00 04/29/2016 23:59:00 DIS Outpatient Devi Vasquez [id number] 04/24/2016 13:24:00 04/24/2016 23:59:00 DIS Outpatient SHAQUILLE CHESTER [id number] 04/22/2016 11:58:00 04/22/2016 23:59:00 DIS Outpatient Devi Vasquez [id number] 04/08/2016 15:25:00 04/08/2016 23:59:00 DIS Outpatient Devi Vasquez [id number] 04/01/2016 10:43:00 04/01/2016 23:59:00 DIS Outpatient Devi Vasquez [id number] 03/25/2016 13:21:00 03/25/2016 23:59:00 DIS Outpatient Devi Vasquez [id number] 03/18/2016 11:17:00 03/18/2016 23:59:00 DIS Outpatient Devi Vasquez [id number] 03/15/2016 13:39:00 03/15/2016 23:59:00 DIS Outpatient Devi Vasquez [id number] 03/13/2016 12:15:00 03/13/2016 23:59:00 DIS Outpatient Devi Vasquez [id number] 03/11/2016 11:41:00 03/11/2016 23:59:00 DIS Outpatient Devi Vasquez [id number] 03/08/2016 12:56:00 03/08/2016 23:59:00 DIS Outpatient Devi Vasquez [id number] 02/28/2016 13:51:00 02/28/2016 23:59:00 DIS Outpatient Devi Vasquez [id number] 02/21/2016 11:16:00 02/21/2016 23:59:00 DIS Outpatient Devi Vasquez [id number] 02/14/2016 13:02:00 02/14/2016 23:59:00 DIS Outpatient Devi Vasquez [id number] 02/07/2016 11:46:00 02/07/2016 23:59:00 DIS Outpatient Faheem, Devi [id number] 02/02/2016 12:28:00 02/02/2016 23:59:00 DIS Outpatient Devi Vasquez [id number] 01/31/2016 11:30:00 01/31/2016 16:23:00 [id number] 01/30/2016 13:35:00 01/30/2016 23:59:00 DIS Outpatient Devi Vasquez [id number] 01/23/2016 11:36:00 01/23/2016 23:59:00 DIS Outpatient Devi Vasquez [id number] 01/16/2016 09:59:00 01/21/2016 13:50:00 DIS Inpatient Faheem [facility] MED-SURG [id number] 01/13/2016 12:18:00 01/13/2016 23:59:00 DIS Outpatient Devi Vasquez [id number] 01/13/2016 12:13:00 01/13/2016 23:59:00 DIS Outpatient Devi Vasquez [id number] 01/06/2016 10:39:00 01/11/2016 11:45:00 DIS Inpatient Faheem [facility] MED-SURG [id number] 01/04/2016 17:06:00 01/05/2016 11:00:00 DIS Outpatient Faheem, [facility] MED-SURG [id number] 01/02/2016 11:10:00 01/02/2016 23:59:00 DIS Outpatient ULISES AGUIRRE [id number] 12/28/2015 14:35:00 12/28/2015 23:59:00 DIS Outpatient Devi Vasquez [id number] 02/16/2018 10:44:51 Document Registration [id number] 12/16/2017 10:50:58 Document Registration [id number] 01/04/2016 18:30:51 Document Registration [id number] 12/05/2015 08:38:00 Document Registration [id number] 11/14/2015 11:20:00 Document Registration [id number] 01/14/2018 08:40:00 01/14/2018 23:59:59 CLS Outpatient PATRIZIA REYES MD [id number] 10/28/2017 15:30:00 10/28/2017 23:59:59 CLS Outpatient Devi Vasquez [facility] [id number] 07/26/2017 09:40:00 Document Registration
--- NOTE | 2018-04-06 12:49 | PM&R H&P / Post Admit Assess ---
History of Present Illness HPI/Chief Complaint Chief complaint: Debility HPI: This is a clinic Pt of Dr. Mayen that I have taken care of on two separate occasions in inpatient rehab, most recently was a hip fracture that is s/p left rib fractures with small pneumothorax cared for at [facility] since last Friday. She also sustained a sternal fracture during the fall. Pt is using IS. Pain is controlled. Coumadin was restarted on 04/01/18. She did have subcutaneous emphysema on the left side from the rib fractures but now resolved. Checking CXR today and will check labs including INR tomorrow Had episode of sepsis of unknown source 3 weeks ago and that was managed conservatively. BM yesterday since she had not gone for entire hospital stay at [place]. Source: patient, family, RN/MD, old records Exam Limitations: no limitations Date Seen 04/06/18 Time Seen by a Provider: 12:40 Attending Physician Marline Santana Lisa A MD Referring Physician Date of Admission Apr 06, 2018 at 11:56 Home Medications & Allergies Home Medications Reviewed patient Home Medication Reconciliation performed by pharmacy medication reconciliations production technician and/or nursing. Patients Allergies have been reviewed. 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) Smoking Status: Never a Smoker Recent Hopitalizations: Yes Immunizations Up To Date Date of Pneumonia Vaccine: Dec 16, 2016 Seasonal Allergies Seasonal Allergies: Yes Past Medical History Surgeries: Joint Replacement, Orthopedic Respiratory: Sleep Apnea Currently Using CPAP: No Currently Using BIPAP: No Cardiac: Chronic Edema/Swelling, Deep Vein Thrombosis, High Cholesterol, Hypertension Reproductive: No Genitourinary: UTI-Chronic Gastrointestinal: Colitis Musculoskeletal: Arthritis, Rheumatoid Arthritis, Chronic Back Pain HEENT: Cataract History of Blood Disorders: Yes Family History Hypertension Review of Systems Constitutional: see HPI, malaise, weakness EENTM: no symptoms reported Respiratory: short of breath Cardiovascular: no symptoms reported Gastrointestinal: no symptoms reported Genitourinary: no symptoms reported Musculoskeletal: no symptoms reported Skin: see HPI (wound left lateral leg) Psychiatric/Neurological: Depressed All Other Systems Reviewed Negative Unless Noted: Yes Physical Exam Exam Vital Signs Vital Signs Date Time Temp Pulse Resp B/P (MAP) Pulse Ox O2 Delivery O2 Flow Rate FiO2 04/06/18 18:00 97.9 60 18 150/82 (104) 94 Room Air Capillary Refill : General Appearance: No Apparent Distress, WD/WN, Chronically ill, Obese HEENT: PERRL/EOMI, Normal ENT Inspection, Pharynx Normal, Moist Mucous Membranes Neck: Full Range of Motion, Normal Inspection, Non Tender, Supple Respiratory: Chest Non Tender, Lungs Clear, Normal Breath Sounds, No Accessory Muscle Use, No Respiratory Distress, Crackles (LLL) Cardiovascular: Regular Rate, Rhythm, No Edema, No Gallop, No JVD, No Murmur Gastrointestinal: Normal Bowel Sounds, No Organomegaly, No Pulsatile Mass, Non Tender, Soft Rectal: Normal Exam, Normal Rectal Tone Genital/Rectal: Normal Genital Exam, Normal Rectal Exam, Normal Rectal Tone, Normal Vaginal Exam Back: Normal Inspection, No CVA Tenderness, No Vertebral Tenderness Extremity: Normal Capillary Refill, Normal Inspection, Normal Range of Motion, Non Tender, No Calf Tenderness, No Pedal Edema Neurologic/Psychiatric: Alert, Oriented x3, No Motor/Sensory Deficits, Normal Mood/Affect Skin: Normal Color, Warm/Dry, Other (wound left lateral leg, severe varicosities with venous stasis dermatitis) Lymphatic: No Adenopathy Results Results/Procedures Labs Patient resulted labs reviewed. Assessment/Plan Assessment and Plan Assess & Plan/Chief Complaint Assessment: Debility Falls Left PTX Left rib fractures Left sided subcutaneous air Coumadin treatment DVT hx VINCE Night time hypoxia s/p constipation Severe venous stasis dermatitis lower legs Left lateral leg wound consulting wound care Iron deficiency s/p iron infusions 6 weeks ago Recent sepsis episode managed at [facility] [place] [place] 2 weeks prior to fall Plan: Check CXR Check labs PT/OT Fall prevention (1) Debility (2) Pneumothorax on left (3) Subcutaneous air (4) Ribs, multiple fractures (5) History of fracture of left hip (6) Falls (7) Constipation (8) Anemia (9) Anticoagulation goal of INR 2.5 to 3.5 (10) Venous stasis dermatitis of both lower extremities (11) Nocturnal hypoxia (12) VINCE on CPAP (13) Overactive bladder (14) DVT (deep venous thrombosis) (15) Osteoarthritis (16) Edema (17) Knee joint replacement status Post Admission Physician Asses Date seen by provider: Apr 06, 2018 Time seen by provider: 12:30 Admisison Dx: (1) Debility Status: Acute The preadmission screen agrees with the post admission assessment that the patient is a good candidate for inpatient rehabilitation. The patient will have a comprehensive program of inpatient rehabilitation with a goal of maximizing level of functional independence prior to discharge home with . The patient will have PT/OT ninety minutes per day, each discipline, five days a week for gait, strengthening, conditioning, balance, ADLs, any patient/family/caregiver training as necessary. Speech therapy to do cognitive assessment and treat as indicated. Rehabilitation nursing to assist with bowel, bladder, skin, wound care, medication administration, pain management. [employer] to assist with discharge planning, community reentry. SCD's for DVT prophylaxis. She appears to be well motivated to participate in three hours of therapy a day. She should be able to tolerate three hours of therapy a day from a medical standpoint. She should benefit from the three hours of therapy a day. She has a reasonable discharge plan, reasonable discharge rehabilitation goals and a supportive family. She has various comorbidities that need to be closely monitored with medications and treatments adjusted on a daily basis as needed. These include: Barriers to discharge for this patient who had been independent prior to this are for her to be modified independent to supervision for ADLs and mobility skills prior to discharge home with , so as to lessen the burden of the caregivers. Risks for this patient include: 1. Fall 2. Fracture 3. DVT 4. Pulmonary embolism 5. Wound infection 6. Skin breakdown 7. Contractures 8. Poorly controlled pain 9. Urinary retention 10. UTI 11. Respiratory infection 12. Aspiration Estimated Length of Stay: 10 days Prognosis: Rehab prognosis appears good for goal of discharge home with modified independent to supervision for ADLs and mobility skills. General: Alert, Oriented X3, Cooperative, No Acute Distress HEENT: Atraumatic, PERRLA Neck: Supple, No JVD, No Thyromegaly, +2 Carotid Pulse No Bruit, No LAD Lungs: Clear to Auscultation, Normal Air Movement, Other (crackles LLL) Heart: Regular Rate, Normal S1, Normal S2, No Murmurs Abdomen: Normal Bowel Sounds, Soft, No Tenderness, No Hepatosplenomegaly, No Masses Extremities: No Clubbing, No Cyanosis, No Edema, Normal Pulses, No Tenderness/ Swelling Skin: No Rashes, No Significant Lesion, Other (left lateral leg wound) Neuro: Normal Gait, Normal Speech, Strength at 5/5 X4 Ext, Normal Tone, Sensation Intact, Cranial Nerves 3-12 NL, Reflexes 2+ Psych/Mental Status: Mental Status NL, Mood NL Copy Copies To 1: MAXWELL MAYEN MD, MINDI DO Apr 06, 2018 12:49
[2018-04-06] MEDS ORDERED: HYDR-3820 PO (12:58)
[2018-04-06] MEDS ORDERED: CLOT10TR PO (12:59)
--- NOTE | 2018-04-06 13:00 | NUR ---
UPDATED MED REC TO THE LIST OF MEDICATIONS THE PATIENT WAS DISCHARGED FROM [facility] TO CONTINUE TAKING.
--- NOTE | 2018-04-06 14:35 | ST Cognitive Linguistic Eval ---
Speech Evaluation-General Medical Diagnosis Fall, Fracture, Pulmonary Embolism Onset Date: Apr 06, 2018 Therapy Diagnosis Therapy Diagnosis: Cognitive-communication Medical History Pertinent Medical History: Angioma, Rheumatoid Arthritis Reviewed History: Yes Social History Current Living Status: Spouse Speech PLF-Current Status Prior Level of Function Patient plans on returning home with his post rehab. Subjective Patient was pleasant and attentive during the evaluation. Language Eval: Auditory Comprehends Simple Yes/No Ques: Functional Indent/Objects Multiple Roberts: Functional Ident/Pics in Multiple Roberts: Functional Follows 1-Step Commands: Functional Follows Complex Directions: Functional Follows General Conversations: Functional Language Eval: Verbal Language Completes Spontaneous Greeting: Functional Produces Auto, Serial Info: Functional Imitates Simple Words/Phrases: Functional Word Finding: Functional Requests Basic Needs: Functional States Basic Personal Info: Functional Expresses Complex Ideas: Functional Objective Cognitive Domain Attention: WNL Memory: WNL Problem Solving: Functional Executive Functions: [facility] Objective Formal/Standardized Tests [facility] Cognitive/Communication Results Memory: Immediate 3/3, Delayed without cues 3/3, Orientation: 5/5, Problem Solving: Simple 5/5, Complex 5/5, Auditory Processin/5 Oral Motor/Speech Production Within Functional Limits Impression Patient is a 67 year old female who was admitted to the ARU post hospitalization from a fall. The patient has been in the ARU three times. This fall resulted in 4 fractured ribs and a punctured lung. The patient was evaluated at bedside with results as reported. Patient is within functional limits for all areas of testing. The patient is not recommended for skilled ST at this time. Communication/Social Cognition Comprehension: 7 Expression: 7 Social Interaction: 7 Problem Solvin Memory: 7 Speech Patient Assess Expression of Ideas/Wants: Expression (4) Understanding Verbal Content: Understands (4) Repetition of Three Words: Three (3) Temporal Orientation: Year: Correct (3) Temporal Orientation: Month: Accurate within 5 days(2) Temporal Orientation: Day: Correct (1) Recall : Wear to say "Sock": Yes, no cue required (2) Recall : Color: Yes, no cue required (2) Recall : Bed: Yes, no cue required (2) Memory/Recall Ability: Current season, Staff names and faces, That he or she is in a hsp/hsp unit Speech-Plan Patient/Family Goals Patient/Family Goals: Patient plans to return home post rehab. Treatment Plan Speech Therapy Treatment Plan: Discontinue ST Patient does not require skilled ST services at this time. Treatment Duration: Apr 06, 2018 Frequency: 1 time per week Estimated Hrs Per Day: .25 hour per day Rehab Potential: Good Barriers to Learning: Patient is experiencing quite a bit of pain. Pt/Family Agrees to Plan: Yes Safety Risks/Education Teaching Recipient: Patient Teaching Methods: Discussion Response to Teaching: Verbalize Understanding Education Topics Provided: Safety within her room. Time Speech Therapy Time In: 14:00 Speech Therapy Time Out: 14:15 Total Billed Time: 15 Billed Treatment Time 1, SPSNDCOMP BRIELLE Garvey Apr 06, 2018 14:35
--- NOTE | 2018-04-06 14:37 | Occupational Therapy Eval ---
OT Evaluation-General/PLF Medical Diagnosis Admission Date Apr 06, 2018 at 11:56 Medical Diagnosis: Pneumothorax, fx ribs Onset Date: Apr 06, 2018 Therapy Diagnosis Therapy Diagnosis: Weakness, Decreased ADL skills Height/Weight Height (Feet): 5 Height (Inches): 1.00 Weight (Pounds): 188 Weight (Ounces): 1.0 Weight Bear Status Weight Bearing Restriction: Weight Bearing/Tolerated Referral Physician: Dr. Santana Referral Reason: Activity Tolerance, Self Care, Evaluation/Treatment, Strengthening/ROM Medical History Pertinent Medical History: Angioma, Rheumatoid Arthritis Additional Medical History Hip replacement Current History Pt. has had multiple rehab stays. Pt. at home this time and got up. Fell and hit the door frame. Sustained multiple fx ribs and pneumothorax. Reviewed History: Yes Social History Home: Single Level Current Living Status: Spouse Entry Into Home: Level Entry ADL-Prior Level of Function Therapy Code Descriptions/Definitions Functional [place] Measure: 0=Not Assessed/NA 4=Minimal Assistance 1=Total Assistance 5=Supervision or Setup 2=Maximal Assistance 6=Modified [place] 3=Moderate Assistance 7=Complete [place] Therapy Quality Codes: 6 Independent with activity with or without an assistive device 5 Patient requires set up or clean up by helper. Patient completes activity by themselves 4 Supervision or touching assist (CGA). [place] provide cues , steadying assist 3 The helper provides less than half the effort to complete the activity 2 The helper provides more than half the effort to complete the activity 1 Dependent. The helper does all the effort to complete an activity 7 Patient refused to complete or attempt activity 9 The patient did not perform the activity before the current illness or injury 88 Not attempted due to Medical conditions or safety concerns Functional Abilities and Goals: Independent: Patient completed the activities by him/herself, with or without an assistive device, with no assistance from a helper. Needed Some Help: Patient needed partial assistance from another person to complete activities. Dependent: A helper completed the activities for the patient. Unknown: Not Applicable: ADL PLOF Comments Pt. states that she has a caregiver that comes twice per week to assist with bathing/dressing. Otherwise, her spouse assists her with dressing. Self Care: Needed Some Help Functional Cognition: Independent DME/Equipment: Bath Chair, Shower DME/Equipment Comments Pt. has walker, power scooter, quad cane OT Current Status Subjective Pt. does not report pain number but does cry with movement. Indicate that her ribs hurt when standing due to gait belt. Pt. requests pain medication from the nurse. Appearance Pt. up in wheelchair. Has just arrived via wheelchair van from [place]. Agrees to work with therapy. Mental Status/Objective Patient Orientation: Person, Place, Time, Situation Current Glasses/Contacts: Yes Hand Dominance: Right Upper Extremity ROM Limited in shoulders due to arthritis. Pt. is able to raise bilateral UE to approximately 70 degrees. Upper Extremity Strength Not tested due to rib pain. ADL-Treatment Lower Body Dressing (FIM): 2 (Pt. is unable to assist with doffing brief/ donning brief while toileting.) Lower Body Dressing (QC): 2 Toileting (FIM): 2 (Pt. requires assistance to pull down and up brief, and assist to cleanse sanjuana area.) Toileting Hygiene (QC): 2 Transfers (B, C, W/C) (FIM): 1 (Pt. requires max assist of one person to stand , but then assist to hold wheelchair and position self in stance from another person.) Toilet/Commode Transfer (FIM): 2 Toilet Transfer (QC): 2 Other Treatments PT/OT co-treat due to pt's fatigue, pain level upon admission. Pt. requires assistance of two people for positioning and safe transfers. OT focuses on toileting and sanjuana cleanse while PT focuses on mobility and LE strength. Pt. transferred to bed after toilet transfer. Required dependent assistance to lay down and for bed mobility. All needs met in room. Education OT Patient Education: Correct positioning, Modified ADL techniques, Progress toward Goal/Update tx plan, Purpose of tx/functional activities, Reviewed precautions, Rehab process, Transfer techniques Teaching Recipient: Patient Teaching Methods: Demonstration, Discussion Response to Teaching: Verbalize Understanding, Return Demonstration OT Short Term Goals Short Term Goals Time Frame: Apr 13, 2018 Eating(FIM): 5 Grooming(FIM): 5 Bathing(FIM): 4 Upper Body Dressing(FIM): 4 Lower Body Dressing(FIM): 3 Toileting(FIM): 4 Transfers (B,C,W/C) (FIM): 3 Toilet/Commode Transfer(FIM): 3 Shower Transfer(FIM): 3 Additional Short Term Goals: 1-Demonstrate ADL Tasks, 2-Verbalize Understanding , 3-ImproveStrength/Ricardo 1=Demonstrate adherence to instructed precautions during ADL tasks. 2=Patient will verbalize/demonstrate understanding of assistive devices/ modifications for ADL. 3=Patient will improve strength/tolerance for activity to enable patient to perform ADL's. OT Customer Success Director Goals [facility] Goals Time Frame: Apr 20, 2018 Eating (FIM): 7 Eating (QC): 6 Groomin Oral Hygiene (QC): 6 Bathing(FIM): 5 Shower/Bathe Self (QC): 5 Upper Body Dressing(FIM): 5 Upper Body Dressing (QC): 5 Lower Body Dressing(FIM): 5 Lower Body Dressing (QC): 5 On/Off Footwear (QC): 5 Toileting(FIM): 6 Toileting Hygiene (QC): 6 Transfers (B,C,W/C) (FIM): 6 Toilet/Commode Transfer(FIM): 6 Toilet/Commode Transfer (QC): 6 Shower Transfer(FIM): 5 Additional Goals: 1-Demonstrate ADL Tasks, 2-Verbalize Understanding, 3- ImproveStrength/Ricardo 1=Demonstrate adherence to instructed precautions during ADL tasks. 2=Patient will verbalize/demonstrate understanding of assistive devices/ modifications for ADL. 3=Patient will improve strength/tolerance for activity to enable patient to perform ADL's. OT Education/Plan Problem List/Assessment Assessment: Decreased Activ Tolerance, Decreased UE Strength, Dependent Transfers, Impaired Bed Mobility, Impaired Funct Balance, Impaired I ADL's, Impaired Self-Care Skills, Restricted Funct UE ROM Discharge Recommendations Plan/Recommendations: Continue POC Therapy D/C Recommendations: Home w/ Family Support, Occupational Therapy Home Care, Scheduled Assistance Treatment Plan/Plan of Care Treatment,Training & Education: Yes Patient would benefit from OT for education, treatment and training to promote independence in ADL's, mobility, safety and/or upper extremity function for ADL' s. Plan of Care: ADL Retraining, Functional Mobility, Group Exercise/Act as Ind, UE Funct Exercise/Act Treatment Duration: Apr 20, 2018 Frequency: At least 5 of 7 days/Wk (IRF) Estimated Hrs Per Day: 1.5 hours per day Agreement: Yes Rehab Potential: Good Time/GCodes Start Time: 11:35 Stop Time: 12:15 Total Time Billed (hr/min): 30 Billed Treatment Time 8905-0382 PT eval, no OT charge [id number] OT eval, 1, EVH x 10minutes, no PT charge [id number] FA x [id number]. Please see note for designated roles. SHAKIRA DOE OT Apr 06, 2018 14:37
--- NOTE | 2018-04-06 14:43 | Physical Therapy Evaluation ---
PT Evaluation-General Medical Diagnosis Admission Date Apr 06, 2018 at 11:56 Medical Diagnosis: Fall, Fracture, Pulmonary Embolism Onset Date: Apr 06, 2018 Therapy Diagnosis Therapy Diagnosis: weakness; abn gait Height/Weight Height (Feet): 5 Height (Inches): 1.00 Weight (Pounds): 188 Weight (Ounces): 1.0 Precautions Precautions/Isolations: Standard Precautions Weight Bear Status Right Lower Extremity: Right Weight Bearing/Tolerated Left Lower Extremity: Left Weight Bearing/Tolerated Referral Physician: Estehr Reason for Referral: Evaluation/Treatment Medical History Pertinent Medical History: Angioma, Rheumatoid Arthritis Additional Medical History Left TKR with multiple following complications due to infection, left hip fracture Current History Pt sustained a fall has home that resulted in in multiple rib fractures, pulmonary contusion and a pneumothorax Reviewed History: Yes Social History Home: Single Level Current Living Status: Spouse Entry Into Home: Level Entry PT Steps Inside Home: 3 (with railing) Prior/Core FIM Prior Level of Function Therapy Code Descriptions/Definitions Functional [place] Measure: 0=Not Assessed/NA 4=Minimal Assistance 1=Total Assistance 5=Supervision or Setup 2=Maximal Assistance 6=Modified [place] 3=Moderate Assistance 7=Complete [place] Therapy Quality Codes: 6 Independent with activity with or without an assistive device 5 Patient requires set up or clean up by helper. Patient completes activity by themselves 4 Supervision or touching assist (CGA). [place] provide cues , steadying assist 3 The helper provides less than half the effort to complete the activity 2 The helper provides more than half the effort to complete the activity 1 Dependent. The helper does all the effort to complete an activity 7 Patient refused to complete or attempt activity 9 The patient did not perform the activity before the current illness or injury 88 Not attempted due to Medical conditions or safety concerns Functional Abilities and Goals: Independent: Patient completed the activities by him/herself, with or without an assistive device, with no assistance from a helper. Needed Some Help: Patient needed partial assistance from another person to complete activities. Dependent: A helper completed the activities for the patient. Unknown: Not Applicable: Bed Mobility: 7 Transfers (B,C,W/C) (FIM): 6 Gait: 5 (household exception) Stairs: 5 (household ) Indoor Mobility (Ambulation): Independent Prior Devices Use: Manual wheelchair, Motorized scooter, Walker Pt was home with her spouse and able to mobilize in her home without assist. PT Evaluation-Current Subjective Pt agreeable to PT. Reports significant pain with movement of UE as well as with trunk movement. Reports she is happy to be on this unit. Pain Numeric Pain Scale: 10-Worst Possible Pain Location: Upper (rib area) Location Body Site: Chest Pain Description: Ache, Stabbing Comment: pain increased with UE movement or transitional transfers. Pt/Family Goals Return home with her spouse when able Objective Patient Orientation: Person, Place, Time, Situation Problem Solving: Good ROM/Strength ROM Lower Extremities WFL; although left knee flexion is limited; it is functional Strenght Lower Extremities grossly 4-/5 throughout Integumentary/Posture Integumentary Refer to nursing assessment Bowel Incontinence: No Bladder Incontinence: Yes (stress) Posture thoracic kyphosis, rounded shoulders, head down and lacks full hip extension in standing. Neuromuscular (Tone, Coordination, Reflexes) functional Sensory Vision: Wears Glasses Hearing: Functional Hand Dominance: Right Sensation Right Lower Extremit: Intact Sensation Left Lower Extremity: Intact Transfers Therapy Code Descriptions/Definitions Functional [place] Measure: 0=Not Assessed/NA 4=Minimal Assistance 1=Total Assistance 5=Supervision or Setup 2=Maximal Assistance 6=Modified [place] 3=Moderate Assistance 7=Complete [place] Therapy Quality Codes: 6 Independent with activity with or without an assistive device 5 Patient requires set up or clean up by helper. Patient completes activity by themselves 4 Supervision or touching assist (CGA). [place] provide cues , steadying assist 3 The helper provides less than half the effort to complete the activity 2 The helper provides more than half the effort to complete the activity 1 Dependent. The helper does all the effort to complete an activity 7 Patient refused to complete or attempt activity 9 The patient did not perform the activity before the current illness or injury 88 Not attempted due to Medical conditions or safety concerns Transfers (B, C, W/C) (FIM): 1 Scootin (assist of 2 to scoot in bed) Rollin Roll Left to Right (QC): 3 Supine to/from Sit: 2 (max assist to lift her trunk and assist with both legs; limited by pain ) Sit to/from Stand: 3 bed t/f WC(FIM only if WC use): 4 Sit to Lying (QC): 2 Lying to Sitting/Side of Bed(Q: 2 Sit to Stand (QC): 3 Chair/[id number] Xfer(QC): 4 Car Transfer (QC): 88 (pt's pain limits her ability to attempt car transfer this date. ) skilled cues provided for sequencing and technique. Gait Does the Patient Walk?: Yes Mode of Locomotion: Walk Anticipated Mode of Locomotion: Walk Gait (FIM): 2 Distance (FIM): 5=463-80 ft Walk 10 feet (QC): 4 Walk 50 ft with 2 Turns(QC): 4 (very slow) Walk 150 ft (QC): 88 (unable to walk this distance) Walking 10ft/uneven surface-QC: 4 Gait Level of Assist: 1 (min assist at the gait belt) Gait Assistive Device: FWW Comments/Gait Description slow gait with decreased foot clearance B (shuffled), with head down, rounded shoulders and lacks ablility to stand full upright; heavily relies of FWW Wheelchair Training Does the Pt Use a Wheelchair?: No Stairs Stairs (FIM): 0 #of Steps: 0 1 Step (curb) (QC): 88 4 Steps (QC): 88 12 Steps (QC): 88 If not tested on admit;explain pt unable to safely attempt to complete a step; pain limits as well. Balance Sitting Static: Good Sitting Dynamic: Good Standing Static: Fair Standing Dynamic: Fair Picking up an Object (QC): 88 (unsafe to perform) Treatment Functional bed mobility and transfer training; gait training; all treatment focused on protecting due to pain and using techniques to be as pain free as possible. Co treat with OT due to the severity of patient needs, high pain and need for the skill of 2 clinicians to complete the tasks. OT addressed LE dressing, clothing management and pericare as PT addressed sit to stand transfers, standing static/dynamic balance as Pt addressed clothing and pericare; in addition, PT addressed trunk control and activation as pt worked on donning/ doffing her socks. Multiple sit to stand transfers. Pt walked 50 ft with FWW with min assist with OT addressing UE use to relieve pain during walking. Assessment/Needs Pt presents post fall with resultant rib fractures. She is limited in functional strength and activity tolerance as well as limited by pain. ; She will benefit from skilled PT to address her strength and provide mobility training to promote a mod indep level that allows the patient to return home with her spouse. Rehab Potential: Good PT Short Term Goals Short Term Goals Time Frame: Apr 20, 2018 Transfers (B,C,W/C) (FIM): 4 Gait (FIM): 2 Distance (FIM): 3=235-29 ft Gait Assistive Device: FWW PT Sales Coach Goals [facility] Goals PT [facility] Goals Time Frame: May 04, 2018 Transfers (B,C,W/C) (FIM): 6 Sit to Lying (QC): 6 Lying-Sitting on Side/Bed(QC): 6 Sit to Stand (QC): 6 Roll Left to Right (QC): 6 Chair/[id number] Xfer(QC): 6 Car Transfer (QC): 5 Does the Patient Walk: Yes Gait (FIM): 5 (household) Gait distance (FIM): 4=975-53 ft Walk 10 feet (QC): 6 Walk 10ft-Uneven Surface(QC): 6 Walk 50ft with 2 Turns (QC): 6 Walk 150 ft (QC): 88 Gait Assistive Device: FWW Stairs (FIM): 5 (household) # of Steps: 4 1 Step (curb) (QC): 6 4 Steps (QC): 6 12 Steps (QC): 88 Picking up an Object (QC): 88 PT Plan Problem List Problem List: Activity Tolerance, Functional Strength, Safety, Balance, Gait, Transfer, Bed Mobility Treatment/Plan Treatment Plan: Continue Plan of Care Treatment Plan: Bed Mobility, Education, Functional Activity Ricardo, Functional Strength, Group Therapy, Gait, Safety, Therapeutic Exercise, Transfers Treatment Duration: May 04, 2018 Frequency: At least 5 of 7 days/Wk (IRF) Estimated Hrs Per Day: 1.5 hours per day Patient and/or Family Agrees t: Yes Safety Risks/Education Patient Education: Transfer Techniques, Safety Issues Teaching Recipient: Patient Teaching Methods: Demonstration, Discussion Response to Teaching: Reinforcement Needed Discharge Recommendations Therapy D/C Recommendations: Physical Therapy Home Care Time/GCodes Time In: 1135 Time Out: 1145 (PT EVAL 1135-1145then [id number]; [id number] co treat with OT ) Total Billed Treatment Time: 90 Total Billed Treatment visit x 2 EVM 10 FA 5 AMANUEL LAYNE PT Apr 06, 2018 14:43
--- NOTE | 2018-04-06 14:58 | Occupational Ther Daily Note ---
OT Current Status-Daily Note Subjective Pt. does not report pain level. However, pt. does indicate that she is hurting in left rib area and nursing gives her pain medication. Appearance Pt. in bed. Has just finished lunch. Agrees to work with OT/PT. Mental Status/Objective Patient Orientation: Person, Place, Time, Situation Therapy Code Descriptions/Definitions Functional [place] Measure: 0=Not Assessed/NA 4=Minimal Assistance 1=Total Assistance 5=Supervision or Setup 2=Maximal Assistance 6=Modified [place] 3=Moderate Assistance 7=Complete [place] ADL-Treatment Therapy Code Descriptions/Definitions Functional [place] Measure: 0=Not Assessed/NA 4=Minimal Assistance 1=Total Assistance 5=Supervision or Setup 2=Maximal Assistance 6=Modified [place] 3=Moderate Assistance 7=Complete [place] Therapy Quality Codes: 6 Independent with activity with or without an assistive device 5 Patient requires set up or clean up by helper. Patient completes activity by themselves 4 Supervision or touching assist (CGA). [place] provide cues , steadying assist 3 The helper provides less than half the effort to complete the activity 2 The helper provides more than half the effort to complete the activity 1 Dependent. The helper does all the effort to complete an activity 7 Patient refused to complete or attempt activity 9 The patient did not perform the activity before the current illness or injury 88 Not attempted due to Medical conditions or safety concerns Eating (FIM): 5 Eating (QC): 5 Lower Body Dressing (FIM): 3 (Pt. is issued adaptive equipment due to her having it at home. Pt. practiced doffing/donning socks with dressing stick and sock aide. Required mod assistance overall.) Lower Body Dressing (QC): 3 On/Off Footwear (QC): 3 Toileting (FIM): 2 Toileting Hygiene (QC): 2 Transfers (B, C, W/C) (FIM): 3 (Mod assistance sit-stand. Pt. able to ambulate with min/mod assist and wheelchair follow. Please see PT note for distance walked.) Toilet/Commode Transfer (FIM): 3 Toilet Transfer (QC): 3 Other Treatment PT/OT co-treated due to pt's fatigue and pain level. OT focused on ADL skills while PT focused on transfer training. Pt. is issued AE because she does have this at home. Spouse to bring in her toileting device. After treatment, pt. transfers to her chair in room and all needs are met. Education OT Patient Education: Correct positioning, Modified ADL techniques, Progress toward Goal/Update tx plan, Purpose of tx/functional activities, Reviewed precautions, Rehab process, Transfer techniques Teaching Recipient: Patient Teaching Methods: Demonstration, Discussion Response to Teaching: Verbalize Understanding, Return Demonstration OT Short Term Goals Short Term Goals Time Frame: Apr 13, 2018 Eating(FIM): 5 Grooming(FIM): 5 Bathing(FIM): 4 Upper Body Dressing(FIM): 4 Lower Body Dressing(FIM): 3 Toileting(FIM): 4 Transfers (B,C,W/C) (FIM): 3 Toilet/Commode Transfer(FIM): 3 Shower Transfer(FIM): 3 Additional Short Term Goals: 1-Demonstrate ADL Tasks, 2-Verbalize Understanding , 3-ImproveStrength/Ricardo 1=Demonstrate adherence to instructed precautions during ADL tasks. 2=Patient will verbalize/demonstrate understanding of assistive devices/ modifications for ADL. 3=Patient will improve strength/tolerance for activity to enable patient to perform ADL's. OT Mcfp Goals Mcfp Goals Time Frame: Apr 20, 2018 Eating (FIM): 7 Eating (QC): 6 Groomin Oral Hygiene (QC): 6 Bathing(FIM): 5 Shower/Bathe Self (QC): 5 Upper Body Dressing(FIM): 5 Upper Body Dressing (QC): 5 Lower Body Dressing(FIM): 5 Lower Body Dressing (QC): 5 On/Off Footwear (QC): 5 Toileting(FIM): 6 Toileting Hygiene (QC): 6 Transfers (B,C,W/C) (FIM): 6 Toilet/Commode Transfer(FIM): 6 Toilet/Commode Transfer (QC): 6 Shower Transfer(FIM): 5 Additional Goals: 1-Demonstrate ADL Tasks, 2-Verbalize Understanding, 3- ImproveStrength/Ricardo 1=Demonstrate adherence to instructed precautions during ADL tasks. 2=Patient will verbalize/demonstrate understanding of assistive devices/ modifications for ADL. 3=Patient will improve strength/tolerance for activity to enable patient to perform ADL's. OT Education/Plan Problem List/Assessment Assessment: Decreased Activ Tolerance, Decreased UE Strength, Impaired I ADL's , Impaired Self-Care Skills, Restricted Funct UE ROM Discharge Recommendations Plan/Recommendations: Continue POC Therapy D/C Recommendations: Home w/ Family Support, Occupational Therapy Home Care, Scheduled Assistance Treatment Plan/Plan of Care Treatment,Training & Education: Yes Patient would benefit from OT for education, treatment and training to promote independence in ADL's, mobility, safety and/or upper extremity function for ADL' s. Plan of Care: ADL Retraining, Functional Mobility, Group Exercise/Act as Ind, UE Funct Exercise/Act Treatment Duration: Apr 20, 2018 Frequency: At least 5 of 7 days/Wk (IRF) Estimated Hrs Per Day: 1.5 hours per day Agreement: Yes Rehab Potential: Good Time/GCodes Start Time: 13:00 Stop Time: 14:00 Total Time Billed (hr/min): 60 Billed Treatment Time 1, ADL x 30minutes, FA x 30minutes SHAKIRA DOE OT Apr 06, 2018 14:58
[2018-04-06] MEDS ORDERED: HYDROcodone/APAP 10 MG/325 MG (LORTAB) TAB PO PRN (15:30)
--- NOTE | 2018-04-06 16:05 | NUR ---
E COMMERCE MARKETING ANALYST met with patient to complete initial assessment. Patient was alert and oriented and agreeable x4 to assessment. Patient known by E COMMERCE MARKETING ANALYST as she recently completed ARU stay in December 2017 due to debility following septic knee, TKR and Jan 2018 following hip fracture. Prior to admission in December patient spent 92 days at fpc facility ([facility]) in [place]; however, depleted all Medicare benefit and required discharge to home. Upon ARU discharge at the end of December, patient was performing well with therapies.Patient also recovered well post hip replacement in Jan. Patient now admits to ARU from [place] with multiple rib fractures and debility after sustaining a fall. Patient states she was doing well at home, but the day of the incident, she had awoke from a deep sleep with urinary urgency, she quickly aniyah from her lift chair, her leg gave out and she fell into a doorway. Patient resides with spouse, Woodrow in [place], [place]. The home is one level with two to three steps within the house. Due to spinal surgery approx. 5 years ago, patient has utilized a FWW for all ambulation and has not driven for 3 years. Patient also possesses a lift chair and power scooter. She is hopeful to regain as much strength as she did during previous ARU admission. Patient identifies spouse, Woodrow as primary contact ([phone]) and sonElliot as a secondary contact ([phone]), Verified PCP as Dr. Devi Vasquez and Surgeon as Dr. Nestor Mcginnis of [place]. Patient has Medicare and [employer] for insurance coverage with prescription coverage and utilizes [facility] for local pharmacy needs. E COMMERCE MARKETING ANALYST reviewed typical rehab length of stay and weekly team conferences with patient, she expressed no concerns. Patient open to HHC or OP therapies at discharge, if needed. [facility] and wishes to utilize this provider again, if HHC is recommended. E COMMERCE MARKETING ANALYST also reviewed patient's current status with [facility] part A (hospital) benefits, as patient has utilized 74 hospital days since July of 2017 and has not completed 60 days of wellness. E COMMERCE MARKETING ANALYST reviewed remainder of benefit and LTR policy. E COMMERCE MARKETING ANALYST is reaching out to [facility] to clarify accurate usage, as E COMMERCE MARKETING ANALYST completed calculated total. E COMMERCE MARKETING ANALYST will follow for appropriate discharge needs.
[2018-04-06] MEDS: GABAPENTIN 300 MG (NEURONTIN) CAP PO SCH ×2 (16:51→20:58)
[2018-04-06] MEDS: HYDROcodone/APAP 10 MG/325 MG (LORTAB) TAB PO PRN ×2 (16:51→22:02)
[2018-04-06] MEDS ORDERED: CLOTRIMAZOLE 10 MG PO SCH (17:00)
[2018-04-06 18:00] VITALS: BP 150/82
[2018-04-06] MEDS ORDERED: warFARin 7.5 MG (COUMADIN) TAB PO SCH (18:00)
[2018-04-06] MEDS: CLOTRIMAZOLE 10 MG MT SCH ×2 (18:33→21:00)
[2018-04-06] MEDS: TROCHE MT SCH ×2 (18:33→21:00)
--- NOTE | 2018-04-06 18:47 | Diagnostic Imaging Report ---
INDICATION: Previous left pneumothorax and rib fractures. PA and lateral chest obtained at 03:07 p.m. and compared with 01/04/2018. There is cardiomegaly. There is mild central vascular congestion. There is atelectatic change in the right base. The left lung base is not well seen due to poor inspiration. There is no pneumothorax visualized. There is advanced degenerative change of both shoulders unchanged from the prior study. IMPRESSION: Cardiomegaly with some right basilar atelectasis. Left lung base is poorly visualized partially due to the technique. No pneumothorax seen. Dictated by: Dictated on workstation # [id number]
--- NOTE | 2018-04-06 19:17 | NUR ---
bedside report received from JASON PEREZ, assume care of pt
--- NOTE | 2018-04-06 20:00 | NUR ---
up in the chair to bedside commode with 1 person assist & walker then back to chair
[2018-04-06] MEDS: PRAMIPEXOLE 0.125 MG (MIRAPEX) TABLET PO SCH (20:58)
[2018-04-06] MEDS: OXYBUTYNIN (DITROPAN) 5 MG TAB PO SCH (20:59)
[2018-04-06] MEDS: MINOCYCLINE 100 MG TABLET (NON-FORMULARY) PO SCH (20:59)
[2018-04-06] MEDS ORDERED: NON-FORMULARY MEDICATION 1 EA EA (Pramipexole Di-HCl (Pramipexole Dihydrochloride) 0.25 MG PO SCH (21:00)
[2018-04-06] MEDS ORDERED: NON-FORMULARY MEDICATION 1 EA EA (Minocycline HCl 100 MG) PO SCH (21:00)
[2018-04-06] MEDS ORDERED: NON-FORMULARY MEDICATION 1 EA EA (Oxybutynin Chloride 5 MG) PO SCH (21:00)
--- NOTE | 2018-04-06 21:00 | NUR ---
assessments & interventions completed, see assessments & interventions, by bedside watching basketball game Mycelex nunu 10mg not available
[2018-04-06] MEDS: MELATONIN 3 MG TABLET PO PRN (22:02)
--- NOTE | 2018-04-06 22:02 | NUR ---
c/o generalized pain level 7/10 on numeric scale, lortab 10 1 tab po & melatonin 3mg po for sleep, pt back to bed with side rails up x4, at bedside
--- NOTE | 2018-04-06 22:45 | NUR ---
resting quietly in bed, pain level 0/10 on flacc scale
--- NOTE | 2018-04-07 01:15 | NUR ---
states have been wearing 02 at night at [place] since did not have cpap machine with her, 02 sat 88% on room air put 02 on at 2l/m per nc, sat came up to 98%, notified orders recieved for PRN 02 to keep above 92%
[2018-04-07] MEDS: HYDROcodone/APAP 10 MG/325 MG (LORTAB) TAB PO PRN ×5 (03:44→21:36)
--- NOTE | 2018-04-07 03:44 | NUR ---
c/o pain generalized level 7/10 on numeric scale, lortab 10 1 tab po given
--- NOTE | 2018-04-07 04:35 | NUR ---
resting quietly in bed, pain level 0/10 on flacc scale
[2018-04-07 05:18] VITALS: BP 139/79
[2018-04-07 06:06] LABS: BASOPHILS % (AUTO) 0 % (0-10); EOSINOPHILS # (AUTO) 0.3 10^3/uL (0.0-0.3); EOSINOPHILS % (AUTO) 6 % (0-10); HEMATOCRIT 33 % (35-52); HEMOGLOBIN 10.3 G/DL (11.5-16.0); LYMPHOCYTES # (AUTO) 1.6 X 10^3 (1.0-4.0); LYMPHOCYTES % (AUTO) 29 % (12-44); MEAN CORPUSCULAR HEMOGLOBIN 28 PG (25-34); MEAN CORPUSCULAR HGB CONC 31 G/DL (32-36); MEAN CORPUSCULAR VOLUME 92 FL (80-99); MEAN PLATELET VOLUME 9.6 FL (7.4-10.4); MONOCYTES # (AUTO) 0.5 X 10^3 (0.0-1.0); MONOCYTES % (AUTO) 9 % (0-12); NEUTROPHILS # (AUTO) 3.3 X 10^3 (1.8-7.8); NEUTROPHILS % (AUTO) 57 % (42-75); PLATELET COUNT 206 10^3/uL (130-400); RED CELL DISTRIBUTION WIDTH 17.9 % (10.0-14.5); WHITE BLOOD COUNT 5.7 10^3/uL (4.3-11.0)
[2018-04-07 06:25] LABS: INR 1.8 (0.8-1.4)
[2018-04-07 06:27] LABS: ALANINE AMINOTRANSFERASE 10 U/L (0-55); ALBUMIN 2.8 GM/DL (3.2-4.5); ALKALINE PHOSPHATASE 120 U/L (40-136); BILIRUBIN,TOTAL 0.3 MG/DL (0.1-1.0); BUN/CREATININE RATIO 22; CALCIUM 8.7 MG/DL (8.5-10.1); CARBON DIOXIDE 28 MMOL/L (21-32); CHLORIDE 105 MMOL/L (98-107); CREATININE SERUM 0.59 MG/DL (0.60-1.30); GFR ESTIMATED > 60; GLUCOSE 87 MG/DL (70-105); POTASSIUM 3.8 MMOL/L (3.6-5.0); SODIUM 142 MMOL/L (135-145); TOTAL PROTEIN 5.1 GM/DL (6.4-8.2)
--- NOTE | 2018-04-07 06:30 | NUR ---
up to chair with 2 people assist
[2018-04-07] MEDS: KCL 20 MEQ TAB (K-DUR) PO SCH (06:50)
[2018-04-07] MEDS: BUMETANIDE 1 MG (BUMEX) TAB PO SCH (06:51)
[2018-04-07] MEDS ORDERED: NON-FORMULARY MEDICATION 1 EA EA (Bumetanide 0.5 MG) PO SCH (07:00)
--- NOTE | 2018-04-07 07:20 | NUR ---
bedside report given to JASON PEREZ
[2018-04-07] MEDS: OXYBUTYNIN (DITROPAN) 5 MG TAB PO SCH ×3 (07:59→20:20)
[2018-04-07] MEDS: GABAPENTIN 300 MG (NEURONTIN) CAP PO SCH ×4 (07:59→20:19)
[2018-04-07] MEDS: PRAMIPEXOLE 0.125 MG (MIRAPEX) TABLET PO SCH ×2 (07:59→20:20)
[2018-04-07] MEDS: SENNA W/DOCUSATE (SENOKOT S) TABLET PO SCH ×2 (07:59→20:20)
[2018-04-07] MEDS: MINOCYCLINE 100 MG TABLET (NON-FORMULARY) PO SCH ×2 (07:59→20:21)
[2018-04-07] MEDS: predniSONE 5 MG TAB PO SCH (08:00)
--- NOTE | 2018-04-07 08:29 | PM&R Progress Note ---
Subjective HPI/CC On Admission Date Seen by Provider: Apr 07, 2018 Time Seen by Provider: 08:30 Chief complaint: Debility HPI: This is a clinic Pt of Dr. Vasquez that I have taken care of on two separate occasions in inpatient rehab, most recently was a hip fracture that is s/p left rib fractures with small pneumothorax cared for at [facility] since last Friday. She also sustained a sternal fracture during the fall. Pt is using IS. Pain is controlled. Coumadin was restarted on 04/01/18. She did have subcutaneous emphysema on the left side from the rib fractures but now resolved. Checking CXR today and will check labs including INR tomorrow Had episode of sepsis of unknown source 3 weeks ago and that was managed conservatively. BM yesterday since she had not gone for entire hospital stay at [place]. Subjective/Events-last exam INR 1.8 so Lovenox 40mg will be given and recheck INR after increasing Cumadin to 8mg daily. Increasing Fentanyl patch to 75 micrograms. Increased Lortab to 10 every four hours. Will remove left suture from left hip fracture. Will use IS because Atelectasis was documented on chest X-ray done yesterday. Maintained on oxygen. Wound care nurse will treat left lateral leg wound Review of Systems General: Fatigue Gastrointestinal: Constipation Musculoskeletal: neck pain Objective Exam Vital Signs Vital Signs Date Time Temp Pulse Resp B/P (MAP) Pulse Ox O2 Delivery O2 Flow Rate FiO2 04/07/18 16:48 96.7 68 16 134/72 (92) 94 Room Air 04/07/18 15:09 2.00 Capillary Refill : Less Than 3 Seconds General Appearance: No Apparent Distress, WD/WN, Chronically ill, Obese HEENT: PERRL/EOMI, Normal ENT Inspection, Pharynx Normal, Moist Mucous Membranes Neck: Full Range of Motion, Normal Inspection, Non Tender, Supple Respiratory: Chest Non Tender, Lungs Clear, Normal Breath Sounds, No Accessory Muscle Use, No Respiratory Distress, Crackles (LLL) Cardiovascular: Regular Rate, Rhythm, No Edema, No Gallop, No JVD, No Murmur Gastrointestinal: Normal Bowel Sounds, No Organomegaly, No Pulsatile Mass, Non Tender, Soft Rectal: Normal Exam, Normal Rectal Tone Genital/Rectal: Normal Genital Exam, Normal Rectal Exam, Normal Rectal Tone, Normal Vaginal Exam Back: Normal Inspection, No CVA Tenderness, No Vertebral Tenderness Extremity: Normal Capillary Refill, Normal Inspection, Normal Range of Motion, Non Tender, No Calf Tenderness, No Pedal Edema Neurologic/Psychiatric: Alert, Oriented x3, No Motor/Sensory Deficits, Normal Mood/Affect, tax examining technician II-XII Norm as Tested, Abnormal Gait, Motor Weakness ( generalized) Skin: Normal Color, Warm/Dry, Other (wound left lateral leg, severe varicosities with venous stasis dermatitis) Lymphatic: No Adenopathy Results/Procedures Lab Laboratory Tests 04/07/18 05:47 Patient resulted labs reviewed. Assessment/Plan Assessment and Plan Assess & Plan/Chief Complaint Assessment: Debility Falls Left PTX Left rib fractures Left sided subcutaneous air Coumadin treatment DVT hx VINCE Night time hypoxia s/p constipation Severe venous stasis dermatitis lower legs Left lateral leg wound consulting wound care Iron deficiency s/p iron infusions 6 weeks ago Recent sepsis episode managed at [facility] 2 weeks prior to fall Plan: Check CXR Check labs PT/OT Fall prevention Monitor INR Increase Fentanyl patch (1) Debility (2) Venous stasis dermatitis of both lower extremities (3) Nocturnal hypoxia (4) Anticoagulation goal of INR 2.5 to 3.5 (5) History of fracture of left hip (6) VINCE on CPAP (7) Pneumothorax on left (8) Ribs, multiple fractures (9) Subcutaneous air (10) Overactive bladder (11) Falls (12) DVT (deep venous thrombosis) (13) Osteoarthritis (14) Edema (15) Anemia (16) Constipation (17) Knee joint replacement status Clinical Quality Measures DVT/VTE Risk/Contraindication: Risk Factor Score Per Nursin RFS Level Per Nursing on Admit: 4+=Very High DARON MARIN DO Apr 07, 2018 08:29
[2018-04-07] MEDS: TROCHE MT SCH ×4 (09:00→20:19)
[2018-04-07] MEDS ORDERED: NON-FORMULARY MEDICATION 1 EA EA (Potassium Chloride 20 MEQ) PO SCH (09:00)
[2018-04-07] MEDS: CLOTRIMAZOLE 10 MG MT SCH ×4 (09:00→20:19)
[2018-04-07] MEDS: LIDOCAINE 4% (SALONPAS) PATCH TOP SCH (09:24)
--- NOTE | 2018-04-07 09:50 | Occupational Ther Daily Note ---
OT Current Status-Daily Note Subjective Pt sitting in chair, agrees to treatment. Pt reports 6/10 pain Mental Status/Objective Therapy Code Descriptions/Definitions Functional [place] Measure: 0=Not Assessed/NA 4=Minimal Assistance 1=Total Assistance 5=Supervision or Setup 2=Maximal Assistance 6=Modified [place] 3=Moderate Assistance 7=Complete [place] ADL-Treatment Pt sit to stand from recliner chair with minimal assistance. Gait to restroom with slow pace with FWW. Transfer to toilet with minimal assistance. Pt requires assist to pull Depends down and complete toileting hygiene. Mod assist required to stand from toilet. Sponge bath completed while seated. Pt able to wash chest, abdomen, and bilateral upper legs. Pt washes most of arms, but requires assist to wash under arms. Assist required to wash bilateral lower legs and buttocks. Pt threaded right arm into sleeve, but required assist for left UE and to pull shirt over head. Used esol instructor to start Depends and pants over feet. Assist required to pull pants up over hips. Pt attempted to use sock aid to don socks. Pt has difficulty secondary to pain and requires assist to complete task. Combed hair with set up while seated. Pt states she has already brushed teeth. Pt transferred chair <-> EOB with minimal assistance using FWW. Pt moves very slowly and requires increased time for mobility and ADL tasks. Pt sitting in chair with needs met after session. Therapy Code Descriptions/Definitions Functional [place] Measure: 0=Not Assessed/NA 4=Minimal Assistance 1=Total Assistance 5=Supervision or Setup 2=Maximal Assistance 6=Modified [place] 3=Moderate Assistance 7=Complete [place] Therapy Quality Codes: 6 Independent with activity with or without an assistive device 5 Patient requires set up or clean up by helper. Patient completes activity by themselves 4 Supervision or touching assist (CGA). [place] provide cues , steadying assist 3 The helper provides less than half the effort to complete the activity 2 The helper provides more than half the effort to complete the activity 1 Dependent. The helper does all the effort to complete an activity 7 Patient refused to complete or attempt activity 9 The patient did not perform the activity before the current illness or injury 88 Not attempted due to Medical conditions or safety concerns Grooming (FIM): 5 Bathing (FIM): 2 Shower/Bathe Self (QC): 2 Upper Body (FIM): 2 Upper Body Dressing (QC): 2 Lower Body Dressing (FIM): 2 Lower Body Dressing (QC): 2 On/Off Footwear (QC): 2 Toileting (FIM): 2 Toileting Hygiene (QC): 2 Toilet/Commode Transfer (FIM): 3 Toilet Transfer (QC): 3 Education OT Patient Education: Modified ADL techniques, Rehab process Teaching Recipient: Patient Teaching Methods: Discussion Response to Teaching: Verbalize Understanding OT Short Term Goals Short Term Goals Time Frame: Apr 13, 2018 Eating(FIM): 5 Grooming(FIM): 5 Bathing(FIM): 4 Upper Body Dressing(FIM): 4 Lower Body Dressing(FIM): 3 Toileting(FIM): 4 Transfers (B,C,W/C) (FIM): 4 Toilet/Commode Transfer(FIM): 3 Shower Transfer(FIM): 3 Additional Short Term Goals: 1-Demonstrate ADL Tasks, 2-Verbalize Understanding , 3-ImproveStrength/Ricardo 1=Demonstrate adherence to instructed precautions during ADL tasks. 2=Patient will verbalize/demonstrate understanding of assistive devices/ modifications for ADL. 3=Patient will improve strength/tolerance for activity to enable patient to perform ADL's. OT Half-Way Goals Half-Way Goals Time Frame: Apr 20, 2018 Eating (FIM): 7 Eating (QC): 6 Groomin Oral Hygiene (QC): 6 Bathing(FIM): 5 Shower/Bathe Self (QC): 5 Upper Body Dressing(FIM): 5 Upper Body Dressing (QC): 5 Lower Body Dressing(FIM): 5 Lower Body Dressing (QC): 5 On/Off Footwear (QC): 5 Toileting(FIM): 6 Toileting Hygiene (QC): 6 Transfers (B,C,W/C) (FIM): 6 Toilet/Commode Transfer(FIM): 6 Toilet/Commode Transfer (QC): 6 Shower Transfer(FIM): 5 Additional Goals: 1-Demonstrate ADL Tasks, 2-Verbalize Understanding, 3- ImproveStrength/Ricardo 1=Demonstrate adherence to instructed precautions during ADL tasks. 2=Patient will verbalize/demonstrate understanding of assistive devices/ modifications for ADL. 3=Patient will improve strength/tolerance for activity to enable patient to perform ADL's. OT Education/Plan Discharge Recommendations Plan/Recommendations: Continue POC Treatment Plan/Plan of Care Patient would benefit from OT for education, treatment and training to promote independence in ADL's, mobility, safety and/or upper extremity function for ADL' s. Plan of Care: ADL Retraining, Functional Mobility, Group Exercise/Act as Ind, UE Funct Exercise/Act Treatment Duration: Apr 20, 2018 Frequency: At least 5 of 7 days/Wk (IRF) Estimated Hrs Per Day: 1.5 hours per day Agreement: Yes Rehab Potential: Good Time/GCodes Start Time: 08:15 Stop Time: 09:45 Total Time Billed (hr/min): 90 Billed Treatment Time 1 visit, ADLx6(90minutes) TEGAN HOOD OT Apr 07, 2018 09:50
[2018-04-07] MEDS ORDERED: ENOXAPARIN 40 MG/0.4 ML (LOVENOX) SYR SC NR (10:00)
[2018-04-07] MEDS: RT-ALBUTEROL SULF 2.5 MG/3 ML PRE-MIX VIAL INH SCH ×2 (10:38→20:40)
--- NOTE | 2018-04-07 11:32 | Physical Therapy Daily Note ---
PT Daily Note-Current Subjective Pt is sitting in recliner upon arrival. Pt agrees to PT despite pain, reports receiving a pain pill approx. 30 mins. before tx. Pain Numeric Pain Scale: 7 Location: Left Location Body Site: Side Pain Description: Ache, Pressure Mental Status Patient Orientation: Person, Place, Time, Situation Transfers Therapy Code Descriptions/Definitions Functional [place] Measure: 0=Not Assessed/NA 4=Minimal Assistance 1=Total Assistance 5=Supervision or Setup 2=Maximal Assistance 6=Modified [place] 3=Moderate Assistance 7=Complete [place] Therapy Quality Codes: 6 Independent with activity with or without an assistive device 5 Patient requires set up or clean up by helper. Patient completes activity by themselves 4 Supervision or touching assist (CGA). [place] provide cues , steadying assist 3 The helper provides less than half the effort to complete the activity 2 The helper provides more than half the effort to complete the activity 1 Dependent. The helper does all the effort to complete an activity 7 Patient refused to complete or attempt activity 9 The patient did not perform the activity before the current illness or injury 88 Not attempted due to Medical conditions or safety concerns Scootin Sit to/from Stand: 3 Sit to Stand (QC): 3 Weight Bearing Right Lower Extremity: Right Weight Bearing/Tolerated Left Lower Extremity: Left Weight Bearing/Tolerated Gait Training Does the Patient Walk?: Yes Distance (FIM): 2=222-22 ft Distance: 75' Walk 10 feet (QC): 4 Walk 50 ft with 2 Turns(QC): 4 Gait Level of Assist: 4 Gait Persons Needed: 1 Gait Assistive Device: FWW Pt has very slow margarita but this has been ongoing for sometime. Wheelchair Training Does the Pt Use a Wheelchair?: Yes Wheelchair Distance: 3=150 ft Distance: 150' Wheelchair Level of Assist: 3 Wheel 50 ft with 2 turns (QC): 3 Wheel 150 ft (QC): 3 Type of Wheelchair: Manual It is difficult at this time to propel self due to pt's ribs. Exercises Seated Therapy Exercises: Ankle pumps, Long arc quads, Hip flexion, Kicking activity Seated Reps: 20 Treatments Pt uses restroom before ambulating in hallway. After fatiguing from walk, pt rests in [facility] before attempting to propel it to Therapy Gym. Pt demonstrates sharp increase in pain so HEAD WELL PULLER assists pt. Pt completes Seated Ex with rest breaks as needed. Pt returns to room at end of tx with all needs met. Pt is resting in recliner. Assessment Current Status: Fair Progress Pt continues to demonstrate pain during activity due to medical dx. Pt attempts to push self and will improve with time. PT Short Term Goals Short Term Goals Time Frame: Apr 20, 2018 Transfers (B,C,W/C) (FIM): 4 Gait (FIM): 2 Distance (FIM): 2=049-53 ft Gait Assistive Device: FWW PT Custodial Goals Traffic Assistant Goals PT Traffic Assistant Goals Time Frame: May 04, 2018 Transfers (B,C,W/C) (FIM): 6 Sit to Lying (QC): 6 Lying-Sitting on Side/Bed(QC): 6 Sit to Stand (QC): 6 Rollin Roll Left to Right (QC): 6 Chair/Vlt-vk-Twwad Xfer(QC): 6 Car Transfer (QC): 5 Does the Patient Walk: Yes Gait (FIM): 5 (household) Gait distance (FIM): 8=199-49 ft Walk 10 feet (QC): 6 Walk 10ft-Uneven Surface(QC): 6 Walk 50ft with 2 Turns (QC): 6 Walk 150 ft (QC): 88 Gait Assistive Device: FWW Stairs (FIM): 5 (household) # of Steps: 4 1 Step (curb) (QC): 6 4 Steps (QC): 6 12 Steps (QC): 88 Picking up an Object (QC): 88 PT Plan Problem List Problem List: Activity Tolerance, Functional Strength, Safety, Balance, Gait, Transfer Treatment/Plan Treatment Plan: Continue Plan of Care Treatment Plan: Bed Mobility, Education, Functional Activity Ricardo, Functional Strength, Group Therapy, Gait, Safety, Therapeutic Exercise, Transfers Treatment Duration: May 04, 2018 Frequency: At least 5 of 7 days/Wk (IRF) Estimated Hrs Per Day: 1.5 hours per day Patient and/or Family Agrees t: Yes Safety Risks/Education Patient Education: Gait Training, Transfer Techniques, Correct Positioning, W/ C Management, Safety Issues Teaching Recipient: Patient Teaching Methods: Discussion Response to Teaching: Verbalize Understanding Time/GCodes Time In: 945 Time Out: 1045 Total Billed Treatment Time: 60 Total Billed Treatment 1, GT (15m), FA (20m), WCH (10m) & EX (15m) G Codes Necessary: LUIS Mckinney PTA Apr 07, 2018 11:32
[2018-04-07] MEDS: fentaNYL PATCH 75 MCG (DURAGESIC) TD SCH (12:38)
--- NOTE | 2018-04-07 14:50 | Occupational Ther Daily Note ---
OT Current Status-Daily Note Subjective Pt alert, sitting on BSC. Pt agrees to therapy. Pt c/o pain though did not rate. Nrsg in room. Mental Status/Objective Patient Orientation: Person, Place, Time, Situation Therapy Code Descriptions/Definitions Functional [place] Measure: 0=Not Assessed/NA 4=Minimal Assistance 1=Total Assistance 5=Supervision or Setup 2=Maximal Assistance 6=Modified [place] 3=Moderate Assistance 7=Complete [place] ADL-Treatment Therapy Code Descriptions/Definitions Functional [place] Measure: 0=Not Assessed/NA 4=Minimal Assistance 1=Total Assistance 5=Supervision or Setup 2=Maximal Assistance 6=Modified [place] 3=Moderate Assistance 7=Complete [place] Therapy Quality Codes: 6 Independent with activity with or without an assistive device 5 Patient requires set up or clean up by helper. Patient completes activity by themselves 4 Supervision or touching assist (CGA). [place] provide cues , steadying assist 3 The helper provides less than half the effort to complete the activity 2 The helper provides more than half the effort to complete the activity 1 Dependent. The helper does all the effort to complete an activity 7 Patient refused to complete or attempt activity 9 The patient did not perform the activity before the current illness or injury 88 Not attempted due to Medical conditions or safety concerns Toileting (FIM): 2 (Assist with cleansing and manipulation of clothing.) Toileting Hygiene (QC): 2 Transfers (B, C, W/C) (FIM): 3 (Mod assist with sit to stand then min A for transfer using FWW from BSC to recliner.) Toilet/Commode Transfer (FIM): 3 (Mod A for sit to stand from BSC using FWW.) Toilet Transfer (QC): 3 OT Short Term Goals Short Term Goals Time Frame: Apr 13, 2018 Eating(FIM): 5 Grooming(FIM): 5 Bathing(FIM): 4 Upper Body Dressing(FIM): 4 Lower Body Dressing(FIM): 3 Toileting(FIM): 4 Transfers (B,C,W/C) (FIM): 4 Toilet/Commode Transfer(FIM): 3 Shower Transfer(FIM): 3 Additional Short Term Goals: 1-Demonstrate ADL Tasks, 2-Verbalize Understanding , 3-ImproveStrength/Ricardo 1=Demonstrate adherence to instructed precautions during ADL tasks. 2=Patient will verbalize/demonstrate understanding of assistive devices/ modifications for ADL. 3=Patient will improve strength/tolerance for activity to enable patient to perform ADL's. OT Box Press Operator Goals Box Press Operator Goals Time Frame: Apr 20, 2018 Eating (FIM): 7 Eating (QC): 6 Groomin Oral Hygiene (QC): 6 Bathing(FIM): 5 Shower/Bathe Self (QC): 5 Upper Body Dressing(FIM): 5 Upper Body Dressing (QC): 5 Lower Body Dressing(FIM): 5 Lower Body Dressing (QC): 5 On/Off Footwear (QC): 5 Toileting(FIM): 6 Toileting Hygiene (QC): 6 Transfers (B,C,W/C) (FIM): 6 Toilet/Commode Transfer(FIM): 6 Toilet/Commode Transfer (QC): 6 Shower Transfer(FIM): 5 Additional Goals: 1-Demonstrate ADL Tasks, 2-Verbalize Understanding, 3- ImproveStrength/Ricardo 1=Demonstrate adherence to instructed precautions during ADL tasks. 2=Patient will verbalize/demonstrate understanding of assistive devices/ modifications for ADL. 3=Patient will improve strength/tolerance for activity to enable patient to perform ADL's. OT Education/Plan Problem List/Assessment Assessment: Impaired Self-Care Skills, Restricted Funct UE ROM Discharge Recommendations Plan/Recommendations: Continue POC Treatment Plan/Plan of Care Patient would benefit from OT for education, treatment and training to promote independence in ADL's, mobility, safety and/or upper extremity function for ADL' s. Plan of Care: ADL Retraining, Functional Mobility, Group Exercise/Act as Ind, UE Funct Exercise/Act Treatment Duration: Apr 20, 2018 Frequency: At least 5 of 7 days/Wk (IRF) Estimated Hrs Per Day: 1.5 hours per day Agreement: Yes Rehab Potential: Good Time/GCodes Start Time: 14:30 Stop Time: 14:45 Total Time Billed (hr/min): 15 Billed Treatment Time 1 visit-ADL 1 (15 min) AMANUEL MATHEWS Apr 07, 2018 14:50
--- NOTE | 2018-04-07 15:46 | Physical Therapy Daily Note ---
PT Daily Note-Current Subjective Pt sitting in recliner after just finishing with COOK upon arrival. Pt agrees to limited PT due to pain. Pain Numeric Pain Scale: 7 Location: Left Location Body Site: Side Pain Description: Pressure, Stabbing, Sharp Comment: Pt reports L ribs pain & SOA. Mental Status Patient Orientation: Person, Place, Time, Situation Transfers Therapy Code Descriptions/Definitions Functional [place] Measure: 0=Not Assessed/NA 4=Minimal Assistance 1=Total Assistance 5=Supervision or Setup 2=Maximal Assistance 6=Modified [place] 3=Moderate Assistance 7=Complete [place] Therapy Quality Codes: 6 Independent with activity with or without an assistive device 5 Patient requires set up or clean up by helper. Patient completes activity by themselves 4 Supervision or touching assist (CGA). [place] provide cues , steadying assist 3 The helper provides less than half the effort to complete the activity 2 The helper provides more than half the effort to complete the activity 1 Dependent. The helper does all the effort to complete an activity 7 Patient refused to complete or attempt activity 9 The patient did not perform the activity before the current illness or injury 88 Not attempted due to Medical conditions or safety concerns Weight Bearing Right Lower Extremity: Right Weight Bearing/Tolerated Left Lower Extremity: Left Weight Bearing/Tolerated Treatments Pt, SP & J2EE ANDROID DEVELOPER discuss pt's pain & better pain management. J2EE ANDROID DEVELOPER explains that PT assists Nursing with better pain management. Pt explains that pain meds had been given approx. 1 previous to tx although they were not "touching the pain". J2EE ANDROID DEVELOPER advised Nurse and gave pt a warm blanket to lay against to assist for pain relief. Pt resting at end of tx. with all needs met. Nurse will monitor pain. Assessment Current Status: Fair Progress Pain limits participation in PT tx., although it did not this morning. PT Short Term Goals Short Term Goals Time Frame: Apr 20, 2018 Transfers (B,C,W/C) (FIM): 4 Gait (FIM): 2 Distance (FIM): 5=513-36 ft Gait Assistive Device: FWW Wheelchair Distance: 150' PT [facility] Goals [facility] Goals PT Loom Fixer Goals Time Frame: May 04, 2018 Transfers (B,C,W/C) (FIM): 6 Sit to Lying (QC): 6 Lying-Sitting on Side/Bed(QC): 6 Sit to Stand (QC): 6 Rollin Roll Left to Right (QC): 6 Chair/Jyq-na-Lldqv Xfer(QC): 6 Car Transfer (QC): 5 Does the Patient Walk: Yes Gait (FIM): 5 (household) Gait distance (FIM): 0=725-79 ft Walk 10 feet (QC): 6 Walk 10ft-Uneven Surface(QC): 6 Walk 50ft with 2 Turns (QC): 6 Walk 150 ft (QC): 88 Gait Assistive Device: FWW Stairs (FIM): 5 (household) # of Steps: 4 1 Step (curb) (QC): 6 4 Steps (QC): 6 12 Steps (QC): 88 Picking up an Object (QC): 88 PT Plan Problem List Problem List: Activity Tolerance, Functional Strength, Safety, Balance, Gait, Transfer, Bed Mobility Treatment/Plan Treatment Plan: Continue Plan of Care Treatment Plan: Bed Mobility, Education, Functional Activity Ricardo, Functional Strength, Group Therapy, Gait, Safety, Therapeutic Exercise, Transfers Treatment Duration: May 04, 2018 Frequency: At least 5 of 7 days/Wk (IRF) Estimated Hrs Per Day: 1.5 hours per day Patient and/or Family Agrees t: Yes Safety Risks/Education Patient Education: Reviewed Use of Ice, Correct Positioning, Disease Process, Safety Issues Teaching Recipient: Patient, Significant Other Teaching Methods: Discussion Response to Teaching: Verbalize Understanding Time/GCodes Time In: 1445 Time Out: 1515 Total Billed Treatment Time: 30 Total Billed Treatment 1, FA x2 (30m) G Codes Necessary: LUIS Mckinney J2EE ANDROID DEVELOPER Apr 07, 2018 15:46
[2018-04-07 16:48] VITALS: BP 134/72
[2018-04-07] MEDS: warFARin 5 MG (COUMADIN) TAB PO SCH (17:41)
[2018-04-07] MEDS: warFARin 3 MG (COUMADIN) TAB PO SCH (17:41)
--- NOTE | 2018-04-07 18:33 | NUR ---
New orders for wound dressing received today. Suture removed from left hip with no issue.
--- NOTE | 2018-04-07 19:11 | NUR ---
bedside report received from JASON PEREZ, assume care of pt
--- NOTE | 2018-04-07 20:49 | Individualized Plan of Care ---
Individualized Plan of Care Rehab Nursing IPOC Order Admission Date Apr 06, 2018 at 11:56 Current Orders Orders Admission Order(Inpt,Obs,Sdc) (04/04/18 20:58) Vital Signs: Routine (Order) 08,16,00 (04/04/18 20:58) Ivan Hose 09,21 (04/04/18 20:58) Incinerator Plant Supervisor-Inpt Rehab Con (04/04/18 20:58) Rehab Nursing Orders-Ipoc (04/04/18 20:58) Physical Therapy Rehab Orders (04/04/18 20:58) Occupational Therapy Rehab Ord (04/04/18 20:58) General/Regular (04/05/18 Breakfast) Intake & Output 06,14,22 (04/04/18 20:58) Precautions (Aru) (04/04/18 20:58) Weekly Weight (Lbs) WEEK (04/04/18 20:58) Rehab-Intensity Of Therapy (04/04/18 20:58) Code/Resuscitation (04/04/18 20:58) Initiate Admission Nursing Pro .admission (04/04/18 20:58) Acetaminophen Tablet (Tylenol Tablet) (04/04/18 21:00) Alprazolam Tablet (Xanax Tablet) (04/04/18 21:00) Calcium Carbonate Chew Tablet (Antacid C (04/04/18 21:00) Diphenhydramine Tablet (Benadryl Tablet) (04/04/18 21:00) Docusate Sodium Capsule (Colace Capsule) (04/04/18 21:00) Hydrocodone/Apap 5/325 Tablet (Lortab 5 (04/04/18 21:00) Loperamide Capsule (Imodium Capsule) (04/04/18 21:00) Melatonin Tablet (Melatonin Tablet) (04/04/18 21:00) Ondansetron Injection (Zofran Injectio (04/04/18 21:00) Ondansetron Oral Dissolve Tab (Zofran (04/04/18 21:00) Senna S Tablet (Senokot S Tablet) (04/04/18 21:00) Admission Arrival Bed Request (04/06/18 11:56) Follow-Up Appointment (04/06/18 11:57) Chest Pa/Lat (2 View) (04/06/18 15:00) Cbc With Automated Diff (04/07/18 06:00) Comprehensive Metabolic Panel (04/07/18 06:00) Protime With Inr (04/07/18 06:00) Patient Visit (04/06/18 ) Pt Eval Moderate Complexity (04/06/18 ) Functional Activities, Ea 15 (04/06/18 ) Gabapentin Capsule/Tablet (Neurontin Cap (04/06/18 17:00) Hydrocodone/Apap 10/325 Tablet (Lortab 1 (04/06/18 15:15) Prednisone Tablet (Deltasone Tablet) (04/07/18 08:00) Warfarin Tablet (Coumadin Tablet) (04/06/18 18:00) (Nf) Bumetanide (04/07/18 07:00) (Nf) Clotrimazole (04/06/18 17:00) (Nf) Minocycline Hcl (04/06/18 21:00) (Nf) Oxybutynin Chloride (04/06/18 21:00) (Nf) Potassium Chloride (04/07/18 09:00) (Nf) Pramipexole Di-Hcl (Pramipexole Dih (04/06/18 21:00) Hydrocodone/Apap 10/325 Tablet (Lortab 1 (04/06/18 15:30) Bumetanide Tablet (Bumex Tablet) (04/07/18 07:00) Clotrimazole Gail (Mycelex Gail) (04/06/18 17:00) Potassium Chloride (Tablet) (K Dur Table (04/07/18 07:00) Oxybutynin Tablet (Ditropan Tablet) (04/06/18 21:00) Pramipexole Tablet (Mirapex Tablet) (04/06/18 21:00) Patient Visit (04/06/18 ) Speech Sound Lang Comp (04/06/18 ) Minocycline (Non-Formulary) (Minocin (No (04/06/18 21:00) Rt Request For Service (04/07/18 01:28) Enoxaparin Injection (Lovenox Injection) (04/07/18 10:00) Fentanyl Patch (Duragesic Patch) (04/07/18 09:00) Albuterol Pre-Mix Nebs (Rt) (Proventil (04/07/18 09:00) Svn Small Volume Nebulizer (04/07/18 08:46) Lidocaine 4% Patch (Salonpas 4% Patch) (04/07/18 09:00) Hydrocodone/Apap 10/325 Tablet (Lortab 1 (04/07/18 09:00) Incentive Spirometry Initial (04/07/18 08:46) Incentive Spirometry (Nursing) Q2H (04/07/18 08:46) Staple/Suture Removal (04/07/18 08:46) Protime With Inr (04/08/18 06:00) Warfarin Tablet (Coumadin Tablet) (04/07/18 18:00) Warfarin Tablet (Coumadin Tablet) (04/07/18 18:00) Patch Removal (Patch Removal) (04/10/18 08:59) Patch Removal (Patch Removal) (04/07/18 21:00) Silver Sulfadiazine 50 Gm (Ssd 1% 50 Gm) (04/08/18 09:00) Patient Visit (04/07/18 ) Gait Training, Ea 15 Min (04/07/18 ) Functional Activities, Ea 15 (04/07/18 ) Wheelchair Mgmt/Propulsn 15min (04/07/18 ) Exercise Therap, Ea 15 Min (04/07/18 ) Rehab Nursing Orders: Ongoing Assess. of Function Status, Bladder Management, Bowel Management, Bowel Training, Disease Management & Educaiton, DVT Prophylaxis, Fall Prevention, Fluid/Electrolyte/Nutrition Mgmt, Medication Management & Education, Management of Skin Intergrity, Pain Management, Patient/ Family Support, Wound Management Intensity of Therapy to be met Patient to be seen: Min.3h per day/5 of 7d PT IPOC Problem List: Activity Tolerance, Functional Strength, Safety, Balance, Gait, Transfer, Bed Mobility Treatment Plan: Continue Plan of Care Bed Mobility, Education, Functional Activity Ricardo, Functional Strength, Group Therapy, Gait, Safety, Therapeutic Exercise, Transfers Treatment Duration: May 04, 2018 Frequency: At least 5 of 7 days/Wk (IRF) Estimated Hrs Per Day: 1.5 hours per day OT IPOC Problems: Impaired Self-Care Skills, Restricted Funct UE ROM OT Treatment, Training and Edu: Yes Plan of Care: ADL Retraining, Functional Mobility, Group Exercise/Act as Ind, UE Funct Exercise/Act Treatment Duration: Apr 20, 2018 Frequency: At least 5 of 7 days/Wk (IRF) Estimated Hrs Per Day: 1.[address] IPOC Speech Therapy Treatment Plan: Discontinue ST Treatment Duration: Apr 06, 2018 Frequency: 1 time per week Estimated Hrs Per Day: .25 hour per day Incinerator Plant Supervisor/Case Mgmt Incinerator Plant Supervisor/Case Managemen: Discharge Planning Dietitian/School Treasurer Dietitian/School Treasurer to monitor nutritional status and make changes and/or recommendations as needed and work with speech pathology on dietary upgrades as the occur. Physician IPOC Medical Issues being managed closely and that require the 24 hour availability of a physician: Major fall risk Recent sepsis gives rise to risk soon again Close monitoring of anticoagulation Pain management on high powered long acting narcs Medical Issues: Bowel/Bladder Function, DVT Prophylaxis, Falls Precautions, Fluid/Electrolyte/Nutrition Balance, Pain Management, Wound Care Brief Synthesis of Preadmission Screen, Post-Admission Evaluation, and Therapy Evaluations: PT will focus on fall prevention and gait training OT will encourage ADL independence Medical Prognosis: Good Anticipated Length of Stay: 10 days DARON MARIN DO Apr 07, 2018 20:49
--- NOTE | 2018-04-07 21:00 | NUR ---
up in the chair visiting with , assessments & interventions completed, see assessments & interventions, up to commode with 1-2 people assist & walker
[2018-04-07] MEDS: MELATONIN 3 MG TABLET PO PRN (21:36)
--- NOTE | 2018-04-07 21:36 | NUR ---
c/o pain all over, level 7/10 on numeric scale, Lortab 10/325 1 tab & melatonin 3mg po
[2018-04-07] MEDS: LIDOCAINE PATCH REMOVAL TP SCH (21:39)
--- NOTE | 2018-04-07 22:20 | NUR ---
pain level 2/10 on numeric scale
[2018-04-08] MEDS: HYDROcodone/APAP 10 MG/325 MG (LORTAB) TAB PO PRN ×5 (05:19→22:02)
--- NOTE | 2018-04-08 05:19 | NUR ---
c/o generalized discomfort level 7/10 on numeric scale, Lortab 10 1 tab po given
[2018-04-08 06:12] VITALS: BP 104/65
--- NOTE | 2018-04-08 06:14 | NUR ---
rates pain level 2/10 on numeric scale
[2018-04-08 06:46] LABS: PROTHROMBIN TIME PATIENT 22.5 SEC (12.2-14.7)
[2018-04-08] MEDS: BUMETANIDE 1 MG (BUMEX) TAB PO SCH ×2 (07:00→14:09)
[2018-04-08] MEDS: KCL 20 MEQ TAB (K-DUR) PO SCH (07:02)
--- NOTE | 2018-04-08 07:26 | NUR ---
bedside report given to LUIS PEREZ
--- NOTE | 2018-04-08 08:36 | NUR ---
DR MARIN HERE TO ASSESS PATIENT. PATIENT REFUSED BUMEX THIS A.M. D/T C/O INCONTINENCE WHEN WORKING WITH THERAPY. NEW ORDER TO CHANGE BUMEX TO 1400 PER PATIENT REQUEST. PATIENT SHOWERING, CONT TO MONITOR.
[2018-04-08] MEDS: SENNA W/DOCUSATE (SENOKOT S) TABLET PO SCH ×2 (08:37→21:08)
--- NOTE | 2018-04-08 08:37 | PM&R Progress Note ---
Subjective HPI/CC On Admission Date Seen by Provider: Apr 08, 2018 Time Seen by Provider: 08:45 Chief complaint: Debility HPI: This is a clinic Pt of Dr. Vasquez that I have taken care of on two separate occasions in inpatient rehab, most recently was a hip fracture that is s/p left rib fractures with small pneumothorax cared for at [facility] since last Friday. She also sustained a sternal fracture during the fall. Pt is using IS. Pain is controlled. Coumadin was restarted on 04/01/18. She did have subcutaneous emphysema on the left side from the rib fractures but now resolved. Checking CXR today and will check labs including INR tomorrow Had episode of sepsis of unknown source 3 weeks ago and that was managed conservatively. BM yesterday since she had not gone for entire hospital stay at [place]. Subjective/Events-last exam INR 2.0 and Lovenox 40mg was just a one time dose yesterday due to 1.8 INR. Increasing Fentanyl patch to 75 micrograms and giving a bit more pain control Increased Lortab to 10 every four hours. Will use IS because Atelectasis was documented on chest X-ray done 2 days ago. Maintained on oxygen in meantime Wound care nurse will treat left lateral leg wound BM+ Coumadin at 8mg daily Review of Systems Pulmonary: Dyspnea Cardiovascular: Chest Pain (from rib fractures) Objective Exam Vital Signs Vital Signs Date Time Temp Pulse Resp B/P (MAP) Pulse Ox O2 Delivery O2 Flow Rate FiO2 04/08/18 08:43 Room Air 04/08/18 06:12 97.4 65 20 104/65 (78) 94 2.00 Capillary Refill : Less Than 3 Seconds General Appearance: No Apparent Distress, WD/WN, Chronically ill, Obese HEENT: PERRL/EOMI, Normal ENT Inspection, Pharynx Normal, Moist Mucous Membranes Neck: Full Range of Motion, Normal Inspection, Non Tender, Supple Respiratory: Chest Non Tender, Lungs Clear, Normal Breath Sounds, No Accessory Muscle Use, No Respiratory Distress, Crackles (LLL) Cardiovascular: Regular Rate, Rhythm, No Edema, No Gallop, No JVD, No Murmur Gastrointestinal: Normal Bowel Sounds, No Organomegaly, No Pulsatile Mass, Non Tender, Soft Rectal: Normal Exam, Normal Rectal Tone Genital/Rectal: Normal Genital Exam, Normal Rectal Exam, Normal Rectal Tone, Normal Vaginal Exam Back: Normal Inspection, No CVA Tenderness, No Vertebral Tenderness Extremity: Normal Capillary Refill, Normal Inspection, Normal Range of Motion, Non Tender, No Calf Tenderness, No Pedal Edema Neurologic/Psychiatric: Alert, Oriented x3, No Motor/Sensory Deficits, Normal Mood/Affect, missile and missile checkout technician II-XII Norm as Tested, Abnormal Gait, Motor Weakness ( generalized) Skin: Normal Color, Warm/Dry, Other (wound left lateral leg, severe varicosities with venous stasis dermatitis) Lymphatic: No Adenopathy Results/Procedures Lab Patient resulted labs reviewed. Assessment/Plan Assessment and Plan Assess & Plan/Chief Complaint Assessment: Debility Falls Left PTX Left rib fractures Left sided subcutaneous air Coumadin treatment DVT hx VINCE Night time hypoxia s/p constipation Severe venous stasis dermatitis lower legs Left lateral leg wound consulting wound care Iron deficiency s/p iron infusions 6 weeks ago Recent sepsis episode managed at [facility] 2 weeks prior to fall Plan: Reviewed CXR Checked labs PT/OT Fall prevention Monitor INR Maintain the increased Fentanyl patch (1) Debility (2) Venous stasis dermatitis of both lower extremities (3) Nocturnal hypoxia (4) Anticoagulation goal of INR 2.5 to 3.5 (5) History of fracture of left hip (6) VINCE on CPAP (7) Pneumothorax on left (8) Ribs, multiple fractures (9) Subcutaneous air (10) Overactive bladder (11) Falls (12) DVT (deep venous thrombosis) (13) Osteoarthritis (14) Edema (15) Anemia (16) Constipation (17) Knee joint replacement status Clinical Quality Measures DVT/VTE Risk/Contraindication: Risk Factor Score Per Nursin RFS Level Per Nursing on Admit: 4+=Very High DARON MARIN DO Apr 08, 2018 08:37
[2018-04-08] MEDS: TROCHE MT SCH ×4 (08:38→21:09)
[2018-04-08] MEDS: LIDOCAINE 4% (SALONPAS) PATCH TOP SCH (08:38)
[2018-04-08] MEDS: GABAPENTIN 300 MG (NEURONTIN) CAP PO SCH ×4 (08:38→21:09)
[2018-04-08] MEDS: CLOTRIMAZOLE 10 MG MT SCH ×4 (08:38→21:09)
[2018-04-08] MEDS: OXYBUTYNIN (DITROPAN) 5 MG TAB PO SCH ×3 (08:38→21:08)
[2018-04-08] MEDS: PRAMIPEXOLE 0.125 MG (MIRAPEX) TABLET PO SCH ×2 (08:38→21:08)
[2018-04-08] MEDS: predniSONE 5 MG TAB PO SCH (08:38)
[2018-04-08] MEDS: SILVER SULFADIAZINE 50 GM CREAM TOP SCH (09:03)
[2018-04-08] MEDS: MINOCYCLINE 100 MG TABLET (NON-FORMULARY) PO SCH ×2 (09:28→21:09)
--- NOTE | 2018-04-08 10:20 | Physical Therapy Daily Note ---
PT Daily Note-Current Subjective Pt sitting in recliner upon arrival. Pt agrees to PT. Pain Numeric Pain Scale: 7 Location: Left Location Body Site: Side Pain Description: Pressure, Stabbing, Sharp Mental Status Patient Orientation: Person, Place, Time, Situation Transfers Therapy Code Descriptions/Definitions Functional [place] Measure: 0=Not Assessed/NA 4=Minimal Assistance 1=Total Assistance 5=Supervision or Setup 2=Maximal Assistance 6=Modified [place] 3=Moderate Assistance 7=Complete [place] Therapy Quality Codes: 6 Independent with activity with or without an assistive device 5 Patient requires set up or clean up by helper. Patient completes activity by themselves 4 Supervision or touching assist (CGA). [place] provide cues , steadying assist 3 The helper provides less than half the effort to complete the activity 2 The helper provides more than half the effort to complete the activity 1 Dependent. The helper does all the effort to complete an activity 7 Patient refused to complete or attempt activity 9 The patient did not perform the activity before the current illness or injury 88 Not attempted due to Medical conditions or safety concerns Scootin Sit to/from Stand: 4 Sit to Stand (QC): 4 Weight Bearing Right Lower Extremity: Right Weight Bearing/Tolerated Left Lower Extremity: Left Weight Bearing/Tolerated Gait Training Does the Patient Walk?: Yes Distance (FIM): 2=786-57 ft Distance: 100' Walk 10 feet (QC): 5 Walk 50 ft with 2 Turns(QC): 5 Gait Level of Assist: 5 Gait Persons Needed: 1 Gait Assistive Device: FWW Pt walks with very slow margarita, antalgic gait pattern. Wheelchair Training Does the Pt Use a Wheelchair?: Yes Wheelchair Distance: 5=713-47 ft Distance: 100' Wheelchair Level of Assist: 2 Wheel 50 ft with 2 turns (QC): 2 Type of Wheelchair: Manual Pt has difficulty propelling W/C at this time due to rib injury. Exercises Seated Therapy Exercises: Ankle pumps, Long arc quads, Hip flexion, Kicking activity Seated Reps: 20 Treatments Pt uses restroom, WAXER assists with pericare. Pt transfers and ambulates at CGA- Min A due to pain. Pt returns to [facility] and completes Seated EX before being wheeled back to room. Pt transfers back to recliner and WAXER assists with repositioning. Pt has all needs met at end of tx. Assessment Current Status: Good Progress Pt is motivated to improve while on ARU so she can go home safely. Pt continues to fatigue & exhibit pain during tx. PT Short Term Goals Short Term Goals Time Frame: Apr 20, 2018 Transfers (B,C,W/C) (FIM): 4 Gait (FIM): 2 Distance (FIM): 3=893-32 ft Gait Assistive Device: FWW Wheelchair Distance: 150' PT Stockbroking Dealer Goals Correction Goals PT Stockbroking Dealer Goals Time Frame: May 04, 2018 Transfers (B,C,W/C) (FIM): 6 Sit to Lying (QC): 6 Lying-Sitting on Side/Bed(QC): 6 Sit to Stand (QC): 6 Rollin Roll Left to Right (QC): 6 Chair/Dni-pg-Ivoxb Xfer(QC): 6 Car Transfer (QC): 5 Does the Patient Walk: Yes Gait (FIM): 5 (household) Gait distance (FIM): 4=115-89 ft Walk 10 feet (QC): 6 Walk 10ft-Uneven Surface(QC): 6 Walk 50ft with 2 Turns (QC): 6 Walk 150 ft (QC): 88 Gait Assistive Device: FWW Stairs (FIM): 5 (household) # of Steps: 4 1 Step (curb) (QC): 6 4 Steps (QC): 6 12 Steps (QC): 88 Picking up an Object (QC): 88 PT Plan Problem List Problem List: Activity Tolerance, Functional Strength, Safety, Balance, Gait, Transfer Treatment/Plan Treatment Plan: Continue Plan of Care Treatment Plan: Bed Mobility, Education, Functional Activity Ricardo, Functional Strength, Group Therapy, Gait, Safety, Therapeutic Exercise, Transfers Treatment Duration: May 04, 2018 Frequency: At least 5 of 7 days/Wk (IRF) Estimated Hrs Per Day: 1.5 hours per day Patient and/or Family Agrees t: Yes Safety Risks/Education Patient Education: Gait Training, Transfer Techniques, Correct Positioning, W/ C Management, Safety Issues Teaching Recipient: Patient Teaching Methods: Discussion Response to Teaching: Verbalize Understanding Time/GCodes Time In: 915 Time Out: 1015 Total Billed Treatment Time: 60 Total Billed Treatment 1, GT (20m), FA x2 (25m) & EX (15m) G Codes Necessary: LUIS Mckinney WAXER Apr 08, 2018 10:20
--- NOTE | 2018-04-08 11:00 | NUR ---
Pastoral care visit, pt was asleep
--- NOTE | 2018-04-08 11:15 | Occupational Ther Daily Note ---
OT Current Status-Daily Note Subjective Pt sitting in chair, agrees to therapy. Pt reports 6/10 pain in ribs Mental Status/Objective Therapy Code Descriptions/Definitions Functional [place] Measure: 0=Not Assessed/NA 4=Minimal Assistance 1=Total Assistance 5=Supervision or Setup 2=Maximal Assistance 6=Modified [place] 3=Moderate Assistance 7=Complete [place] ADL-Treatment Pt requests shower this morning. Sit to stand from recliner with minimal assistance. Gait to restroom with FWW and increased time. CGA for balance and safety. Transfer to toilet with min assist. Pt requires assist with toileting hygiene. Mod assist to stand from toilet. Transfer to walk in shower with minimal assistance using grab bars for safety, but required mod assist to stand after shower. Seated bathing completed using hand held shower. Pt able to wash upper body with set up and increased time. Uses long handled sponge to wash lower legs and feet. Assist to wash buttocks. Pt able to thread UE into sleeves , but requires assist to pack puller head and pull down in back. Pt used copper plater to start Depends and pants over feet and pull up to knees. Sit to stand with minimal assistance. Pt required assist to pull pants up over hips. Comb hair with set up using long handled brush. Pt brushed teeth with set up while seated. Pt fatigues with activity and requires occasional rest breaks throughout treatment. Increased time for ADLs and mobility. Pt transferred to recliner with minimal assistance. Sitting with needs met after session. Therapy Code Descriptions/Definitions Functional [place] Measure: 0=Not Assessed/NA 4=Minimal Assistance 1=Total Assistance 5=Supervision or Setup 2=Maximal Assistance 6=Modified [place] 3=Moderate Assistance 7=Complete [place] Therapy Quality Codes: 6 Independent with activity with or without an assistive device 5 Patient requires set up or clean up by helper. Patient completes activity by themselves 4 Supervision or touching assist (CGA). [place] provide cues , steadying assist 3 The helper provides less than half the effort to complete the activity 2 The helper provides more than half the effort to complete the activity 1 Dependent. The helper does all the effort to complete an activity 7 Patient refused to complete or attempt activity 9 The patient did not perform the activity before the current illness or injury 88 Not attempted due to Medical conditions or safety concerns Grooming (FIM): 5 Oral Hygiene (QC): 5 Bathing (FIM): 3 Upper Body (FIM): 3 Upper Body Dressing (QC): 3 Lower Body Dressing (FIM): 3 Lower Body Dressing (QC): 3 Toilet/Commode Transfer (FIM): 3 Toilet Transfer (QC): 3 OT Short Term Goals Short Term Goals Time Frame: Apr 13, 2018 Eating(FIM): 5 Grooming(FIM): 5 Bathing(FIM): 4 Upper Body Dressing(FIM): 4 Lower Body Dressing(FIM): 3 Toileting(FIM): 4 Transfers (B,C,W/C) (FIM): 4 Toilet/Commode Transfer(FIM): 3 Shower Transfer(FIM): 3 Additional Short Term Goals: 1-Demonstrate ADL Tasks, 2-Verbalize Understanding , 3-ImproveStrength/Ricardo 1=Demonstrate adherence to instructed precautions during ADL tasks. 2=Patient will verbalize/demonstrate understanding of assistive devices/ modifications for ADL. 3=Patient will improve strength/tolerance for activity to enable patient to perform ADL's. OT Bindery Production Manager Goals Bindery Production Manager Goals Time Frame: Apr 20, 2018 Eating (FIM): 7 Eating (QC): 6 Groomin Oral Hygiene (QC): 6 Bathing(FIM): 5 Shower/Bathe Self (QC): 5 Upper Body Dressing(FIM): 5 Upper Body Dressing (QC): 5 Lower Body Dressing(FIM): 5 Lower Body Dressing (QC): 5 On/Off Footwear (QC): 5 Toileting(FIM): 6 Toileting Hygiene (QC): 6 Transfers (B,C,W/C) (FIM): 6 Toilet/Commode Transfer(FIM): 6 Toilet/Commode Transfer (QC): 6 Shower Transfer(FIM): 5 Additional Goals: 1-Demonstrate ADL Tasks, 2-Verbalize Understanding, 3- ImproveStrength/Ricardo 1=Demonstrate adherence to instructed precautions during ADL tasks. 2=Patient will verbalize/demonstrate understanding of assistive devices/ modifications for ADL. 3=Patient will improve strength/tolerance for activity to enable patient to perform ADL's. OT Education/Plan Discharge Recommendations Plan/Recommendations: Continue POC Treatment Plan/Plan of Care Patient would benefit from OT for education, treatment and training to promote independence in ADL's, mobility, safety and/or upper extremity function for ADL' s. Plan of Care: ADL Retraining, Functional Mobility, Group Exercise/Act as Ind, UE Funct Exercise/Act Treatment Duration: Apr 20, 2018 Frequency: At least 5 of 7 days/Wk (IRF) Estimated Hrs Per Day: 1.5 hours per day Agreement: Yes Rehab Potential: Good Time/GCodes Start Time: 08:00 Stop Time: 09:15 Total Time Billed (hr/min): 75 Billed Treatment Time 1 visit, ADLx5(75minutes) TEGAN HOOD OT Apr 08, 2018 11:15
--- NOTE | 2018-04-08 14:18 | Therapy Group Daily Note ---
Therapy Daily Group Note Patient Education Topic Home Safety, Incontinence Exercises Other (kegels, glut isometrics, seated abdominal mini crunches) Other/Notes Pt. participated in PT group this date. Pt. came and went via w/c and required assist in out w/c and bed. Pt. was very social introducing herself and sharing that her greatest pride in life is her family. Objectives of group this date were: 1) understanding what bladder incontinence is 2) how pelvic musculature ( Kegels) may improve incontinence 3) the risk of dehydration when drinking less to combat incontinence. 4) the increased risk for falling while dealing with incontinence. 5) Balance components of vision, ROM, strength, and vestibular system. Pt. met the goals as she shared that she now uses assistance of a brief and hep to toilet as she had previously fallen while rushing to the bathroom and had a fall, fracturing a hip. Pt. all participated in Kegels, glut isometrics, and seated mini crunches. The importance of hydration was a focus of education as well. Pt. benefitted from group via socialization and education as well as exercise benefits. Pt. to room after group with gallardo at hand, needs met Start Time: 13:00 Stop Time: 14:05 Total Billed Treatment Time: 65 Total Billed Treatment 1,GRP GORDON CLARK APIARIST Apr 08, 2018 14:18
--- NOTE | 2018-04-08 16:06 | NUR ---
MINT MACHINE OPERATOR met with patient and spouse to review team conference summary. As patient just recently admitted and continues to require mod to max assistance for activities, team has recommended patient be reevaluated at next team conference on 37. Patient and spouse are agreeable to this. MINT MACHINE OPERATOR will continue to follow for additional needs.
[2018-04-08] MEDS: warFARin 3 MG (COUMADIN) TAB PO SCH (17:19)
[2018-04-08] MEDS: warFARin 5 MG (COUMADIN) TAB PO SCH (17:19)
[2018-04-08] MEDS: ACETAMINOPHEN 500 MG TAB (TYLENOL) PO PRN (17:20)
[2018-04-08 18:05] VITALS: BP 129/68
--- NOTE | 2018-04-08 19:10 | NUR ---
bedside report received from LUIS PEREZ, assume care of pt
[2018-04-08] MEDS: RT-ALBUTEROL SULF 2.5 MG/3 ML PRE-MIX VIAL INH SCH (20:22)
[2018-04-08] MEDS: LIDOCAINE PATCH REMOVAL TP SCH (21:00)
--- NOTE | 2018-04-08 21:00 | NUR ---
assessments & interventions completed, see assessments & interventions pt requested only 1 Senokot this evening, remains up in the chair with at bedside & up & down to commode to void
[2018-04-08] MEDS: MELATONIN 3 MG TABLET PO PRN (22:02)
--- NOTE | 2018-04-08 22:02 | NUR ---
up to commode then back to bed, c/o rib pain level 7/10 on numeric scale, Lortab 10 1 po given
--- NOTE | 2018-04-08 22:43 | NUR ---
resting quietly in bed, pain level 0/10 on flacc scale
[2018-04-09] MEDS: HYDROcodone/APAP 10 MG/325 MG (LORTAB) TAB PO PRN ×5 (02:41→19:18)
--- NOTE | 2018-04-09 02:41 | NUR ---
c/o generalized pain, level 6/10 on numeric scale, Lortab 10 1 po given
--- NOTE | 2018-04-09 03:15 | NUR ---
resting quietly in bed, pain level 0/10 on flacc scale
[2018-04-09 06:00] VITALS: BP 115/71
--- NOTE | 2018-04-09 06:33 | NUR ---
c/o generalized pain level 6/10 on numeric scale, lortab 10 1 tab po
--- NOTE | 2018-04-09 06:45 | NUR ---
refused breathing treatment stated made her feel jittery DR. MARIN called, orders received to discontinue treatments
[2018-04-09] MEDS: RT-ALBUTEROL SULF 2.5 MG/3 ML PRE-MIX VIAL INH SCH ×2 (06:47→06:49)
[2018-04-09] MEDS: KCL 20 MEQ TAB (K-DUR) PO SCH (07:11)
--- NOTE | 2018-04-09 07:15 | NUR ---
pain level 2/10 on numeric scale
--- NOTE | 2018-04-09 07:20 | NUR ---
bedside report given to SHANE PEREZ
[2018-04-09] MEDS: LIDOCAINE 4% (SALONPAS) PATCH TOP SCH (08:25)
[2018-04-09] MEDS: GABAPENTIN 300 MG (NEURONTIN) CAP PO SCH ×4 (08:25→20:21)
[2018-04-09] MEDS: SENNA W/DOCUSATE (SENOKOT S) TABLET PO SCH ×2 (08:25→20:23)
[2018-04-09] MEDS: PRAMIPEXOLE 0.125 MG (MIRAPEX) TABLET PO SCH ×2 (08:25→20:22)
[2018-04-09] MEDS: predniSONE 5 MG TAB PO SCH (08:26)
[2018-04-09] MEDS: CLOTRIMAZOLE 10 MG MT SCH ×4 (08:26→20:21)
[2018-04-09] MEDS: OXYBUTYNIN (DITROPAN) 5 MG TAB PO SCH ×3 (08:26→20:22)
[2018-04-09] MEDS: TROCHE MT SCH ×4 (08:26→20:21)
[2018-04-09] MEDS: MINOCYCLINE 100 MG TABLET (NON-FORMULARY) PO SCH ×2 (08:28→20:21)
--- NOTE | 2018-04-09 08:32 | PM&R Progress Note ---
Subjective HPI/CC On Admission Date Seen by Provider: Apr 09, 2018 Time Seen by Provider: 08:20 Chief complaint: Debility HPI: This is a clinic Pt of Dr. Vasquez that I have taken care of on two separate occasions in inpatient rehab, most recently was a hip fracture that is s/p left rib fractures with small pneumothorax cared for at [facility] since last Friday. She also sustained a sternal fracture during the fall. Pt is using IS. Pain is controlled. Coumadin was restarted on 04/01/18. She did have subcutaneous emphysema on the left side from the rib fractures but now resolved. Checking CXR today and will check labs including INR tomorrow Had episode of sepsis of unknown source 3 weeks ago and that was managed conservatively. BM yesterday since she had not gone for entire hospital stay at [place]. Subjective/Events-last exam Pt having no bleeding episodes Pain is present but improving Fentanyl patch of 75 and Lortab every 4 hours is maintained Bowel function monitored closely BP maintained close watch Oxygen maintained for now Using IS Discontinuing nebulizer treatments because it made her shaky. Review of Systems General: Fatigue Pulmonary: Dyspnea Cardiovascular: Chest Pain Objective Exam Vital Signs Vital Signs Date Time Temp Pulse Resp B/P (MAP) Pulse Ox O2 Delivery O2 Flow Rate FiO2 04/10/18 15:44 98.0 71 20 103/66 (78) 94 Room Air 04/10/18 06:00 2.00 Capillary Refill : Less Than 3 Seconds General Appearance: No Apparent Distress, WD/WN, Chronically ill, Obese HEENT: PERRL/EOMI, Normal ENT Inspection, Pharynx Normal, Moist Mucous Membranes Neck: Full Range of Motion, Normal Inspection, Non Tender, Supple Respiratory: Lungs Clear, Normal Breath Sounds, No Accessory Muscle Use, No Respiratory Distress, Crackles (LLL) Cardiovascular: Regular Rate, Rhythm, No Edema, No Gallop, No JVD, No Murmur Gastrointestinal: Normal Bowel Sounds, No Organomegaly, No Pulsatile Mass, Non Tender, Soft Rectal: Normal Exam, Normal Rectal Tone Genital/Rectal: Normal Genital Exam, Normal Rectal Exam, Normal Rectal Tone, Normal Vaginal Exam Back: Normal Inspection, No CVA Tenderness, No Vertebral Tenderness Extremity: Normal Capillary Refill, Normal Inspection, Normal Range of Motion, Non Tender, No Calf Tenderness, No Pedal Edema Neurologic/Psychiatric: Alert, Oriented x3, No Motor/Sensory Deficits, Normal Mood/Affect, bone tender II-XII Norm as Tested, Abnormal Gait, Motor Weakness ( generalized) Skin: Normal Color, Warm/Dry, Other (wound left lateral leg, severe varicosities with venous stasis dermatitis) Lymphatic: No Adenopathy Results/Procedures Lab Patient resulted labs reviewed. Assessment/Plan Assessment and Plan Assess & Plan/Chief Complaint Assessment: Debility Falls Left PTX Left rib fractures Left sided subcutaneous air Coumadin treatment DVT hx VINCE Night time hypoxia s/p constipation Severe venous stasis dermatitis lower legs Left lateral leg wound consulting wound care Iron deficiency s/p iron infusions 6 weeks ago Recent sepsis episode managed at [facility] 2 weeks prior to fall Plan: Reviewed CXR Checked labs PT/OT Fall prevention Monitor INR Maintain the increased Fentanyl patch Scheduled Lortab Q4hrs BM regimen Check INR tomorrow (1) Debility (2) Venous stasis dermatitis of both lower extremities (3) Nocturnal hypoxia (4) Anticoagulation goal of INR 2.5 to 3.5 (5) History of fracture of left hip (6) VINCE on CPAP (7) Pneumothorax on left (8) Ribs, multiple fractures (9) Subcutaneous air (10) Overactive bladder (11) Falls (12) DVT (deep venous thrombosis) (13) Osteoarthritis (14) Edema (15) Anemia (16) Constipation (17) Knee joint replacement status Clinical Quality Measures DVT/VTE Risk/Contraindication: Risk Factor Score Per Nursin RFS Level Per Nursing on Admit: 4+=Very High DARON MAIRN DO Apr 09, 2018 08:32
[2018-04-09] MEDS: SILVER SULFADIAZINE 50 GM CREAM TOP SCH (09:00)
--- NOTE | 2018-04-09 10:42 | Occupational Ther Daily Note ---
OT Current Status-Daily Note Subjective Pt alert, sitting in recliner. Pt agrees to therapy. C/o pain, did not rate. Mental Status/Objective Patient Orientation: Person, Place, Time, Situation Therapy Code Descriptions/Definitions Functional [place] Measure: 0=Not Assessed/NA 4=Minimal Assistance 1=Total Assistance 5=Supervision or Setup 2=Maximal Assistance 6=Modified [place] 3=Moderate Assistance 7=Complete [place] ADL-Treatment Pt requested to wash hair today, but no shower or sponge bath. Assist to reach up and complete shampooing and rinsing needed. Pt then completed grooming at sink sitting in w/c. Assist to dry hair and pt brushed hair with long handle brush. Pt able to thread UE into sleeves, but requires assist to extract puller head and pull down in back. Pt used railroad construction director to start Depends and pants over feet and pull up to knees. Sit to stand with minimal assistance. Pt required assist to pull pants up over hips. Increased time for ADLs and mobility due to pt fatigue and occasional rest breaks throughout treatment. Pt transferred to recliner with minimal assistance. After therapy, pt sitting in recliner with call light/phone in reach. All needs met in room. Therapy Code Descriptions/Definitions Functional [place] Measure: 0=Not Assessed/NA 4=Minimal Assistance 1=Total Assistance 5=Supervision or Setup 2=Maximal Assistance 6=Modified [place] 3=Moderate Assistance 7=Complete [place] Therapy Quality Codes: 6 Independent with activity with or without an assistive device 5 Patient requires set up or clean up by helper. Patient completes activity by themselves 4 Supervision or touching assist (CGA). [place] provide cues , steadying assist 3 The helper provides less than half the effort to complete the activity 2 The helper provides more than half the effort to complete the activity 1 Dependent. The helper does all the effort to complete an activity 7 Patient refused to complete or attempt activity 9 The patient did not perform the activity before the current illness or injury 88 Not attempted due to Medical conditions or safety concerns Grooming (FIM): 5 (5) Oral Hygiene (QC): 5 Upper Body (FIM): 4 Upper Body Dressing (QC): 3 Lower Body Dressing (FIM): 3 Lower Body Dressing (QC): 3 OT Short Term Goals Short Term Goals Time Frame: Apr 13, 2018 Eating(FIM): 5 Grooming(FIM): 5 Bathing(FIM): 4 Upper Body Dressing(FIM): 4 Lower Body Dressing(FIM): 3 Toileting(FIM): 4 Transfers (B,C,W/C) (FIM): 4 Toilet/Commode Transfer(FIM): 3 Shower Transfer(FIM): 3 Additional Short Term Goals: 1-Demonstrate ADL Tasks, 2-Verbalize Understanding , 3-ImproveStrength/Ricardo 1=Demonstrate adherence to instructed precautions during ADL tasks. 2=Patient will verbalize/demonstrate understanding of assistive devices/ modifications for ADL. 3=Patient will improve strength/tolerance for activity to enable patient to perform ADL's. OT Prison Goals Prison Goals Time Frame: Apr 20, 2018 Eating (FIM): 7 Eating (QC): 6 Groomin Oral Hygiene (QC): 6 Bathing(FIM): 5 Shower/Bathe Self (QC): 5 Upper Body Dressing(FIM): 5 Upper Body Dressing (QC): 5 Lower Body Dressing(FIM): 5 Lower Body Dressing (QC): 5 On/Off Footwear (QC): 5 Toileting(FIM): 6 Toileting Hygiene (QC): 6 Transfers (B,C,W/C) (FIM): 6 Toilet/Commode Transfer(FIM): 6 Toilet/Commode Transfer (QC): 6 Shower Transfer(FIM): 5 Additional Goals: 1-Demonstrate ADL Tasks, 2-Verbalize Understanding, 3- ImproveStrength/Ricardo 1=Demonstrate adherence to instructed precautions during ADL tasks. 2=Patient will verbalize/demonstrate understanding of assistive devices/ modifications for ADL. 3=Patient will improve strength/tolerance for activity to enable patient to perform ADL's. OT Education/Plan Problem List/Assessment Assessment: Decreased UE Strength, Impaired Coordination, Impaired Self-Care Skills, Restricted Funct UE ROM Discharge Recommendations Plan/Recommendations: Continue POC Treatment Plan/Plan of Care Patient would benefit from OT for education, treatment and training to promote independence in ADL's, mobility, safety and/or upper extremity function for ADL' s. Plan of Care: ADL Retraining, Functional Mobility, Group Exercise/Act as Ind, UE Funct Exercise/Act Treatment Duration: Apr 20, 2018 Frequency: At least 5 of 7 days/Wk (IRF) Estimated Hrs Per Day: 1.5 hours per day Agreement: Yes Rehab Potential: Good Time/GCodes Start Time: 07:30 Stop Time: 09:00 Total Time Billed (hr/min): 90 Billed Treatment Time 1 visit-ADL 6 (90 min) AMANUEL MATHEWS Apr 09, 2018 10:42
--- NOTE | 2018-04-09 12:15 | Physical Therapy Daily Note ---
PT Daily Note-Current Subjective Pt sitting in recliner upon arrival. Pt agrees to PT. Pain Numeric Pain Scale: 5-Moderate Pain Location: Left Location Body Site: Side Pain Description: Stabbing, Sharp Mental Status Patient Orientation: Person, Place, Time, Situation Transfers Therapy Code Descriptions/Definitions Functional [place] Measure: 0=Not Assessed/NA 4=Minimal Assistance 1=Total Assistance 5=Supervision or Setup 2=Maximal Assistance 6=Modified [place] 3=Moderate Assistance 7=Complete [place] Therapy Quality Codes: 6 Independent with activity with or without an assistive device 5 Patient requires set up or clean up by helper. Patient completes activity by themselves 4 Supervision or touching assist (CGA). [place] provide cues , steadying assist 3 The helper provides less than half the effort to complete the activity 2 The helper provides more than half the effort to complete the activity 1 Dependent. The helper does all the effort to complete an activity 7 Patient refused to complete or attempt activity 9 The patient did not perform the activity before the current illness or injury 88 Not attempted due to Medical conditions or safety concerns Scootin Sit to/from Stand: 4 Sit to Stand (QC): 4 Weight Bearing Right Lower Extremity: Right Weight Bearing/Tolerated Left Lower Extremity: Left Weight Bearing/Tolerated Gait Training Does the Patient Walk?: Yes Distance (FIM): 3=150 ft Distance: 150' Walk 10 feet (QC): 5 Walk 50 ft with 2 Turns(QC): 5 Walk 150 ft (QC): 5 Gait Level of Assist: 5 Gait Persons Needed: 1 Gait Assistive Device: FWW Pt has slow margarita, antalgic gait pattern. Exercises NuStep Minutes: 15 NuStep Workload: 4 Treatments Pt ambulates in hallway using FWW at SBA. Pt uses NuStep for 15m WL 4. Pt uses restroom before returning to recliner at end of tx. Pt has all needs met at end of tx. Assessment Current Status: Good Progress Pt continues to push self to improve despite pain in ribs. Pt has extremely slow gait. PT Short Term Goals Short Term Goals Time Frame: Apr 20, 2018 Transfers (B,C,W/C) (FIM): 4 Gait (FIM): 2 Distance (FIM): 7=337-35 ft Gait Assistive Device: FWW Wheelchair Distance: 100' PT Work Environment Safety Inspector Goals Work Environment Safety Inspector Goals PT Jail Goals Time Frame: May 04, 2018 Transfers (B,C,W/C) (FIM): 6 Sit to Lying (QC): 6 Lying-Sitting on Side/Bed(QC): 6 Sit to Stand (QC): 6 Rollin Roll Left to Right (QC): 6 Chair/Lxm-js-Biflw Xfer(QC): 6 Car Transfer (QC): 5 Does the Patient Walk: Yes Gait (FIM): 5 (household) Gait distance (FIM): 0=851-25 ft Walk 10 feet (QC): 6 Walk 10ft-Uneven Surface(QC): 6 Walk 50ft with 2 Turns (QC): 6 Walk 150 ft (QC): 88 Gait Assistive Device: FWW Stairs (FIM): 5 (household) # of Steps: 4 1 Step (curb) (QC): 6 4 Steps (QC): 6 12 Steps (QC): 88 Picking up an Object (QC): 88 PT Plan Problem List Problem List: Activity Tolerance, Functional Strength, Balance, Gait, Transfer Treatment/Plan Treatment Plan: Continue Plan of Care Treatment Plan: Bed Mobility, Education, Functional Activity Ricardo, Functional Strength, Group Therapy, Gait, Safety, Therapeutic Exercise, Transfers Treatment Duration: May 04, 2018 Frequency: At least 5 of 7 days/Wk (IRF) Estimated Hrs Per Day: 1.5 hours per day Patient and/or Family Agrees t: Yes Safety Risks/Education Patient Education: Gait Training, Transfer Techniques, Correct Positioning, Safety Issues Teaching Recipient: Patient Teaching Methods: Discussion Response to Teaching: Verbalize Understanding Time/GCodes Time In: 1100 Time Out: 1200 Total Billed Treatment Time: 60 Total Billed Treatment 1, GT x2 (25m), FA (20m) & EX (15m) G Codes Necessary: LUIS Mckinney SUPERVISOR SAF[employer]Y DEPOSIT Apr 09, 2018 12:15
[2018-04-09] MEDS: BUMETANIDE 1 MG (BUMEX) TAB PO SCH (13:25)
--- NOTE | 2018-04-09 14:45 | Physical Therapy Daily Note ---
PT Daily Note-Current Subjective Pt sitting in recliner upon arrival. Pt agrees to PT. Pain Numeric Pain Scale: 5-Moderate Pain Location: Left Location Body Site: Side Pain Description: Sharp Mental Status Patient Orientation: Place, Time, Situation Transfers Therapy Code Descriptions/Definitions Functional [place] Measure: 0=Not Assessed/NA 4=Minimal Assistance 1=Total Assistance 5=Supervision or Setup 2=Maximal Assistance 6=Modified [place] 3=Moderate Assistance 7=Complete [place] Therapy Quality Codes: 6 Independent with activity with or without an assistive device 5 Patient requires set up or clean up by helper. Patient completes activity by themselves 4 Supervision or touching assist (CGA). [place] provide cues , steadying assist 3 The helper provides less than half the effort to complete the activity 2 The helper provides more than half the effort to complete the activity 1 Dependent. The helper does all the effort to complete an activity 7 Patient refused to complete or attempt activity 9 The patient did not perform the activity before the current illness or injury 88 Not attempted due to Medical conditions or safety concerns Scootin Sit to/from Stand: 4 Sit to Stand (QC): 4 Weight Bearing Right Lower Extremity: Right Weight Bearing/Tolerated Left Lower Extremity: Left Weight Bearing/Tolerated Gait Training Does the Patient Walk?: Yes Distance (FIM): 9=720-94 ft Distance: 100' Walk 10 feet (QC): 5 Walk 50 ft with 2 Turns(QC): 5 Gait Level of Assist: 5 Gait Persons Needed: 1 Gait Assistive Device: FWW Exercises Seated Therapy Exercises: Ankle pumps, Long arc quads, Hip flexion, Kicking activity Seated Reps: 15 Treatments Pt ambulates in hallway using FWW at A. Pt completes Seated Ex in chair then returns to room to use restroom. Pt has all needs met at end of tx. Assessment Current Status: Good Progress Pt gets fatigued by afternoon tx and pain continues. Pt given meds. PT Short Term Goals Short Term Goals Time Frame: Apr 20, 2018 Transfers (B,C,W/C) (FIM): 4 Gait (FIM): 2 Distance (FIM): 2=453-15 ft Gait Assistive Device: FWW Wheelchair Distance: 100' PT Assisted Goals Assisted Goals PT Criminal Defense Attorney Goals Time Frame: May 04, 2018 Transfers (B,C,W/C) (FIM): 6 Sit to Lying (QC): 6 Lying-Sitting on Side/Bed(QC): 6 Sit to Stand (QC): 6 Rollin Roll Left to Right (QC): 6 Chair/Kzg-fr-Gnkch Xfer(QC): 6 Car Transfer (QC): 5 Does the Patient Walk: Yes Gait (FIM): 5 (household) Gait distance (FIM): 1=264-39 ft Walk 10 feet (QC): 6 Walk 10ft-Uneven Surface(QC): 6 Walk 50ft with 2 Turns (QC): 6 Walk 150 ft (QC): 88 Gait Assistive Device: FWW Stairs (FIM): 5 (household) # of Steps: 4 1 Step (curb) (QC): 6 4 Steps (QC): 6 12 Steps (QC): 88 Picking up an Object (QC): 88 PT Plan Problem List Problem List: Activity Tolerance, Functional Strength, Safety, Balance, Gait, Transfer Treatment/Plan Treatment Plan: Continue Plan of Care Treatment Plan: Bed Mobility, Education, Functional Activity Ricardo, Functional Strength, Group Therapy, Gait, Safety, Therapeutic Exercise, Transfers Treatment Duration: May 04, 2018 Frequency: At least 5 of 7 days/Wk (IRF) Estimated Hrs Per Day: 1.5 hours per day Patient and/or Family Agrees t: Yes Safety Risks/Education Patient Education: Gait Training, Transfer Techniques, Correct Positioning, Safety Issues Teaching Recipient: Patient Teaching Methods: Discussion Response to Teaching: Verbalize Understanding Time/GCodes Time In: 1300 Time Out: 1330 Total Billed Treatment Time: 30 Total Billed Treatment 1, GT (15m) & EX (15m) G Codes Necessary: LUIS Mckinney PTA Apr 09, 2018 14:45
[2018-04-09] MEDS: warFARin 5 MG (COUMADIN) TAB PO SCH (17:41)
[2018-04-09] MEDS: warFARin 3 MG (COUMADIN) TAB PO SCH (17:41)
[2018-04-09 18:10] VITALS: BP 124/61
[2018-04-09] MEDS: LIDOCAINE PATCH REMOVAL TP SCH (20:25)
[2018-04-09] MEDS: ACETAMINOPHEN 500 MG TAB (TYLENOL) PO PRN (21:05)
[2018-04-09] MEDS: MELATONIN 3 MG TABLET PO PRN (21:06)
[2018-04-10] MEDS: HYDROcodone/APAP 10 MG/325 MG (LORTAB) TAB PO PRN ×2 (00:30→08:30)
[2018-04-10 06:00] VITALS: BP 90/58
[2018-04-10] MEDS: KCL 20 MEQ TAB (K-DUR) PO SCH (06:11)
[2018-04-10] MEDS: PRAMIPEXOLE 0.125 MG (MIRAPEX) TABLET PO SCH ×2 (08:30→20:50)
[2018-04-10] MEDS: LIDOCAINE 4% (SALONPAS) PATCH TOP SCH (08:30)
[2018-04-10] MEDS: GABAPENTIN 300 MG (NEURONTIN) CAP PO SCH ×4 (08:30→20:51)
[2018-04-10] MEDS: MINOCYCLINE 100 MG TABLET (NON-FORMULARY) PO SCH ×2 (08:30→20:51)
[2018-04-10] MEDS: predniSONE 5 MG TAB PO SCH (08:31)
[2018-04-10] MEDS: CLOTRIMAZOLE 10 MG MT SCH ×4 (08:31→20:51)
[2018-04-10] MEDS: SENNA W/DOCUSATE (SENOKOT S) TABLET PO SCH ×2 (08:31→20:52)
[2018-04-10] MEDS: SILVER SULFADIAZINE 50 GM CREAM TOP SCH (08:31)
[2018-04-10] MEDS: TROCHE MT SCH ×4 (08:31→20:51)
[2018-04-10] MEDS: OXYBUTYNIN (DITROPAN) 5 MG TAB PO SCH ×3 (08:31→20:51)
--- NOTE | 2018-04-10 08:37 | PM&R Progress Note ---
Subjective HPI/CC On Admission Date Seen by Provider: Apr 10, 2018 Time Seen by Provider: 08:30 Chief complaint: Debility HPI: This is a clinic Pt of Dr. Vasquez that I have taken care of on two separate occasions in inpatient rehab, most recently was a hip fracture that is s/p left rib fractures with small pneumothorax cared for at [facility] since last Friday. She also sustained a sternal fracture during the fall. Pt is using IS. Pain is controlled. Coumadin was restarted on 04/01/18. She did have subcutaneous emphysema on the left side from the rib fractures but now resolved. Checking CXR today and will check labs including INR tomorrow Had episode of sepsis of unknown source 3 weeks ago and that was managed conservatively. BM yesterday since she had not gone for entire hospital stay at [place]. Subjective/Events-last exam Pt constantly talking about pain. Scheduling Lortab every four hours. No bowel movement for two days, will aggressively use Lactulose to get that started. Maintained on Fentanyl patch of 75. Left lateral lower leg wound improved. Will check INR in the morning. Review of Systems General: Fatigue Cardiovascular: Chest Pain Objective Exam Vital Signs Vital Signs Date Time Temp Pulse Resp B/P (MAP) Pulse Ox O2 Delivery O2 Flow Rate FiO2 04/10/18 15:44 98.0 71 20 103/66 (78) 94 Room Air 04/10/18 06:00 2.00 Capillary Refill : Less Than 3 Seconds General Appearance: No Apparent Distress, WD/WN, Chronically ill, Obese HEENT: PERRL/EOMI, Normal ENT Inspection, Pharynx Normal, Moist Mucous Membranes Neck: Full Range of Motion, Normal Inspection, Non Tender, Supple Respiratory: Lungs Clear, Normal Breath Sounds, No Accessory Muscle Use, No Respiratory Distress, Crackles (LLL) Cardiovascular: Regular Rate, Rhythm, No Edema, No Gallop, No JVD, No Murmur Gastrointestinal: Normal Bowel Sounds, No Organomegaly, No Pulsatile Mass, Non Tender, Soft Rectal: Normal Exam, Normal Rectal Tone Genital/Rectal: Normal Genital Exam, Normal Rectal Exam, Normal Rectal Tone, Normal Vaginal Exam Back: Normal Inspection, No CVA Tenderness, No Vertebral Tenderness Extremity: Normal Capillary Refill, Normal Inspection, Normal Range of Motion, Non Tender, No Calf Tenderness, No Pedal Edema Neurologic/Psychiatric: Alert, Oriented x3, No Motor/Sensory Deficits, Normal Mood/Affect, healthcare network consultant II-XII Norm as Tested, Abnormal Gait, Motor Weakness ( generalized) Skin: Normal Color, Warm/Dry, Other (wound left lateral leg, severe varicosities with venous stasis dermatitis) Lymphatic: No Adenopathy Results/Procedures Lab Patient resulted labs reviewed. Assessment/Plan Assessment and Plan Assess & Plan/Chief Complaint Assessment: Debility Falls Left PTX Left rib fractures Left sided subcutaneous air Coumadin treatment DVT hx VINCE Night time hypoxia s/p constipation Severe venous stasis dermatitis lower legs Left lateral leg wound consulting wound care Iron deficiency s/p iron infusions 6 weeks ago Recent sepsis episode managed at [facility] 2 weeks prior to fall Plan: Reviewed CXR Checked labs PT/OT Fall prevention Monitor INR Maintain the increased Fentanyl patch Lortab Q4hrs scheduled INR in am (1) Debility (2) Venous stasis dermatitis of both lower extremities (3) Nocturnal hypoxia (4) Anticoagulation goal of INR 2.5 to 3.5 (5) History of fracture of left hip (6) VINCE on CPAP (7) Pneumothorax on left (8) Ribs, multiple fractures (9) Subcutaneous air (10) Overactive bladder (11) Falls (12) DVT (deep venous thrombosis) (13) Osteoarthritis (14) Edema (15) Anemia (16) Constipation (17) Knee joint replacement status Clinical Quality Measures DVT/VTE Risk/Contraindication: Risk Factor Score Per Nursin RFS Level Per Nursing on Admit: 4+=Very High DARON MARIN DO Apr 10, 2018 08:37
[2018-04-10] MEDS ORDERED: LACTULOSE SYRUP 10GM/15ML (ENULOSE) 30ML UDC PO PRN (09:00)
--- NOTE | 2018-04-10 09:28 | Occupational Ther Daily Note ---
OT Current Status-Daily Note Subjective Pt sitting in chair, agrees to therapy. Pt reports 6/10 pain in left ribs. RN notified and provided pain medication. Mental Status/Objective Therapy Code Descriptions/Definitions Functional [place] Measure: 0=Not Assessed/NA 4=Minimal Assistance 1=Total Assistance 5=Supervision or Setup 2=Maximal Assistance 6=Modified [place] 3=Moderate Assistance 7=Complete [place] ADL-Treatment Pt requests shower today. Sit to stand from chair with minimal assistance. Gait to restroom with FWW, slow pace. Transfer to [facility] over toilet with minimal assistance. Pt completed toileting with minimal assistance. Transfer to shower with minimal assistance. Pt doffed shirt with min assist. Doffed Depends and pants using protection officer. Doffed socks with SBA using protection officer. Seated bathing completed using hand held shower and long handled sponge. Upper body bathing completed with SBA. Pt able to wash bilateral upper legs and sanjuana area. Used long handled sponge to wash lower legs and feet. Don pullover shirt with SBA and increased time and effort. Pt used protection officer to start Depends and pants over feet. Stood with minimal assistance. Required assist to pull pants up in back. Pt donned socks with minimal assistance using sock aid. Pt requires increased time for bathing and dressing. Takes occasional rest breaks secondary to fatigue. Transfer to chair with minimal assistance. Pt sitting in chair with needs met after session. Therapy Code Descriptions/Definitions Functional [place] Measure: 0=Not Assessed/NA 4=Minimal Assistance 1=Total Assistance 5=Supervision or Setup 2=Maximal Assistance 6=Modified [place] 3=Moderate Assistance 7=Complete [place] Therapy Quality Codes: 6 Independent with activity with or without an assistive device 5 Patient requires set up or clean up by helper. Patient completes activity by themselves 4 Supervision or touching assist (CGA). [place] provide cues , steadying assist 3 The helper provides less than half the effort to complete the activity 2 The helper provides more than half the effort to complete the activity 1 Dependent. The helper does all the effort to complete an activity 7 Patient refused to complete or attempt activity 9 The patient did not perform the activity before the current illness or injury 88 Not attempted due to Medical conditions or safety concerns Grooming (FIM): 5 Bathing (FIM): 4 Upper Body (FIM): 4 Lower Body Dressing (FIM): 3 Toilet/Commode Transfer (FIM): 4 OT Short Term Goals Short Term Goals Time Frame: Apr 13, 2018 Eating(FIM): 5 Grooming(FIM): 5 Bathing(FIM): 4 Upper Body Dressing(FIM): 4 Lower Body Dressing(FIM): 3 Toileting(FIM): 4 Transfers (B,C,W/C) (FIM): 4 Toilet/Commode Transfer(FIM): 3 Shower Transfer(FIM): 3 Additional Short Term Goals: 1-Demonstrate ADL Tasks, 2-Verbalize Understanding , 3-ImproveStrength/Ricardo 1=Demonstrate adherence to instructed precautions during ADL tasks. 2=Patient will verbalize/demonstrate understanding of assistive devices/ modifications for ADL. 3=Patient will improve strength/tolerance for activity to enable patient to perform ADL's. OT [employer]isher [employer] Goals [employer]isher [employer] Goals Time Frame: Apr 20, 2018 Eating (FIM): 7 Eating (QC): 6 Groomin Oral Hygiene (QC): 6 Bathing(FIM): 5 Shower/Bathe Self (QC): 5 Upper Body Dressing(FIM): 5 Upper Body Dressing (QC): 5 Lower Body Dressing(FIM): 5 Lower Body Dressing (QC): 5 On/Off Footwear (QC): 5 Toileting(FIM): 6 Toileting Hygiene (QC): 6 Transfers (B,C,W/C) (FIM): 6 Toilet/Commode Transfer(FIM): 6 Toilet/Commode Transfer (QC): 6 Shower Transfer(FIM): 5 Additional Goals: 1-Demonstrate ADL Tasks, 2-Verbalize Understanding, 3- ImproveStrength/Ricardo 1=Demonstrate adherence to instructed precautions during ADL tasks. 2=Patient will verbalize/demonstrate understanding of assistive devices/ modifications for ADL. 3=Patient will improve strength/tolerance for activity to enable patient to perform ADL's. OT Education/Plan Discharge Recommendations Plan/Recommendations: Continue POC Treatment Plan/Plan of Care Patient would benefit from OT for education, treatment and training to promote independence in ADL's, mobility, safety and/or upper extremity function for ADL' s. Plan of Care: ADL Retraining, Functional Mobility, Group Exercise/Act as Ind, UE Funct Exercise/Act Treatment Duration: Apr 20, 2018 Frequency: At least 5 of 7 days/Wk (IRF) Estimated Hrs Per Day: 1.5 hours per day Agreement: Yes Rehab Potential: Good Time/GCodes Start Time: 08:00 Stop Time: 09:30 Total Time Billed (hr/min): 90 Billed Treatment Time 1 visit, ADLx6(90minutes) TEGAN HOOD OT Apr 10, 2018 09:28
--- NOTE | 2018-04-10 11:04 | Physical Therapy Daily Note ---
PT Daily Note-Current Subjective Pt. agrees to rx. States she is having rib pain at 6/10. States she has "learned something" from this experience, " States she has realized she will need to live my life much differently. Pain Numeric Pain Scale: 6 Location: Left Location Body Site: Chest (ribs) Pain Description: Stabbing Mental Status Patient Orientation: Normal For Age Transfers Therapy Code Descriptions/Definitions Functional [place] Measure: 0=Not Assessed/NA 4=Minimal Assistance 1=Total Assistance 5=Supervision or Setup 2=Maximal Assistance 6=Modified [place] 3=Moderate Assistance 7=Complete [place] Therapy Quality Codes: 6 Independent with activity with or without an assistive device 5 Patient requires set up or clean up by helper. Patient completes activity by themselves 4 Supervision or touching assist (CGA). [place] provide cues , steadying assist 3 The helper provides less than half the effort to complete the activity 2 The helper provides more than half the effort to complete the activity 1 Dependent. The helper does all the effort to complete an activity 7 Patient refused to complete or attempt activity 9 The patient did not perform the activity before the current illness or injury 88 Not attempted due to Medical conditions or safety concerns Transfers (B, C, W/C) (FIM): 3 Scootin Supine to/from Sit: 3 Sit to/from Stand: 4 Bed to/from Chair: 5 Weight Bearing Right Lower Extremity: Right Weight Bearing/Tolerated Left Lower Extremity: Left Weight Bearing/Tolerated Gait Training Does the Patient Walk?: Yes Gait (FIM): 5 Distance (FIM): 3=150 ft (165x2) Gait Level of Assist: 5 Gait Persons Needed: 1 Gait Assistive Device: FWW slow, very careful, no LOB, head down, uneven step length Exercises Supine Ex: Ankle pumps, Quad Set, Glut sets, Heel Slides, Hip abd/add Supine Reps: 15 Seated Therapy Exercises: Ankle pumps, Sit to stand, Long arc quads, Hip flexion Seated Reps: 10 Treatments toileted with mod assist for pants down and up Assessment Current Status: Good Progress gives full effort PT Short Term Goals Short Term Goals Time Frame: Apr 20, 2018 Transfers (B,C,W/C) (FIM): 4 Gait (FIM): 2 Distance (FIM): 2=075-55 ft Gait Assistive Device: FWW Wheelchair Distance: 100' PT Avionics Systems Technician Goals Snf Goals PT Avionics Systems Technician Goals Time Frame: May 04, 2018 Transfers (B,C,W/C) (FIM): 6 Sit to Lying (QC): 6 Lying-Sitting on Side/Bed(QC): 6 Sit to Stand (QC): 6 Rollin Roll Left to Right (QC): 6 Chair/Jsk-bn-Cezur Xfer(QC): 6 Car Transfer (QC): 5 Does the Patient Walk: Yes Gait (FIM): 5 (household) Gait distance (FIM): 6=685-12 ft Walk 10 feet (QC): 6 Walk 10ft-Uneven Surface(QC): 6 Walk 50ft with 2 Turns (QC): 6 Walk 150 ft (QC): 88 Gait Assistive Device: FWW Stairs (FIM): 5 (household) # of Steps: 4 1 Step (curb) (QC): 6 4 Steps (QC): 6 12 Steps (QC): 88 Picking up an Object (QC): 88 PT Plan Treatment/Plan Treatment Plan: Continue Plan of Care Treatment Plan: Bed Mobility, Education, Functional Activity Ricardo, Functional Strength, Group Therapy, Gait, Safety, Therapeutic Exercise, Transfers Treatment Duration: May 04, 2018 Frequency: At least 5 of 7 days/Wk (IRF) Estimated Hrs Per Day: 1.5 hours per day Patient and/or Family Agrees t: Yes Safety Risks/Education Patient Education: Gait Training, Transfer Techniques, Correct Positioning, Disease Process, Safety Issues Teaching Recipient: Patient Teaching Methods: Demonstration, Discussion Response to Teaching: Verbalize Understanding, Return Demonstration, Reinforcement Needed Time/GCodes Time In: 930 Time Out: 1100 Total Billed Treatment Time: 90 Total Billed Treatment 1,GT25m,FA15m,EX20m G Codes Necessary: GORDON Ernst PTA Apr 10, 2018 11:04
[2018-04-10] MEDS: HYDROcodone/APAP 10 MG/325 MG (LORTAB) TAB PO SCH ×3 (12:26→20:50)
[2018-04-10] MEDS: FENTANYL PATCH REMOVAL TP SCH (12:27)
[2018-04-10] MEDS: fentaNYL PATCH 75 MCG (DURAGESIC) TD SCH (12:27)
[2018-04-10] MEDS: BUMETANIDE 1 MG (BUMEX) TAB PO SCH (14:04)
[2018-04-10 15:44] VITALS: BP 103/66
[2018-04-10] MEDS: warFARin 3 MG (COUMADIN) TAB PO SCH (16:31)
[2018-04-10] MEDS: warFARin 5 MG (COUMADIN) TAB PO SCH (16:31)
[2018-04-10] MEDS: LIDOCAINE PATCH REMOVAL TP SCH (20:53)
[2018-04-11] MEDS: HYDROcodone/APAP 10 MG/325 MG (LORTAB) TAB PO SCH ×6 (00:31→20:18)
[2018-04-11 05:20] LABS: INR 2.2 (0.8-1.4); PROTHROMBIN TIME PATIENT 24.2 SEC (12.2-14.7)
[2018-04-11 05:26] VITALS: BP 126/75
[2018-04-11] MEDS: KCL 20 MEQ TAB (K-DUR) PO SCH (06:46)
--- NOTE | 2018-04-11 09:14 | Physical Therapy Daily Note ---
PT Daily Note-Current Subjective Pt. agrees to Rx. States her pain is n better. Rtes rib pain at 6/10 birgit wit activity of sit to stand TRF Pain Numeric Pain Scale: 6 Location: Left Location Body Site: Chest (ribs) Pain Description: Stabbing Mental Status Patient Orientation: Normal For Age Transfers Therapy Code Descriptions/Definitions Functional [place] Measure: 0=Not Assessed/NA 4=Minimal Assistance 1=Total Assistance 5=Supervision or Setup 2=Maximal Assistance 6=Modified [place] 3=Moderate Assistance 7=Complete [place] Therapy Quality Codes: 6 Independent with activity with or without an assistive device 5 Patient requires set up or clean up by helper. Patient completes activity by themselves 4 Supervision or touching assist (CGA). [place] provide cues , steadying assist 3 The helper provides less than half the effort to complete the activity 2 The helper provides more than half the effort to complete the activity 1 Dependent. The helper does all the effort to complete an activity 7 Patient refused to complete or attempt activity 9 The patient did not perform the activity before the current illness or injury 88 Not attempted due to Medical conditions or safety concerns Transfers (B, C, W/C) (FIM): 4 Scootin Sit to/from Stand: 4 Weight Bearing Right Lower Extremity: Right Weight Bearing/Tolerated Left Lower Extremity: Left Weight Bearing/Tolerated Gait Training Does the Patient Walk?: Yes Gait (FIM): 5 Distance (FIM): 3=150 ft (x2) Gait Level of Assist: 5 Gait Persons Needed: 1 Gait Assistive Device: FWW Exercises Seated Therapy Exercises: Ankle pumps, Long arc quads, Hip flexion, Hip abd/add Seated Reps: 10 NuStep Minutes: 10 NuStep Workload: 1 Treatments pain continues, pt. works thru it and presses on Assessment Current Status: Good Progress PT Short Term Goals Short Term Goals Time Frame: Apr 20, 2018 Transfers (B,C,W/C) (FIM): 4 Gait (FIM): 2 Distance (FIM): 1=818-14 ft Gait Assistive Device: FWW Wheelchair Distance: 100' PT Online Marketing Coordinator Goals Residential Goals PT Residential Goals Time Frame: May 04, 2018 Transfers (B,C,W/C) (FIM): 6 Sit to Lying (QC): 6 Lying-Sitting on Side/Bed(QC): 6 Sit to Stand (QC): 6 Rollin Roll Left to Right (QC): 6 Chair/Yin-jm-Jsxcy Xfer(QC): 6 Car Transfer (QC): 5 Does the Patient Walk: Yes Gait (FIM): 5 (household) Gait distance (FIM): 7=414-76 ft Walk 10 feet (QC): 6 Walk 10ft-Uneven Surface(QC): 6 Walk 50ft with 2 Turns (QC): 6 Walk 150 ft (QC): 88 Gait Assistive Device: FWW Stairs (FIM): 5 (household) # of Steps: 4 1 Step (curb) (QC): 6 4 Steps (QC): 6 12 Steps (QC): 88 Picking up an Object (QC): 88 PT Plan Treatment/Plan Treatment Plan: Continue Plan of Care Treatment Plan: Bed Mobility, Education, Functional Activity Ricardo, Functional Strength, Group Therapy, Gait, Safety, Therapeutic Exercise, Transfers Treatment Duration: May 04, 2018 Frequency: At least 5 of 7 days/Wk (IRF) Estimated Hrs Per Day: 1.5 hours per day Patient and/or Family Agrees t: Yes Safety Risks/Education Patient Education: Gait Training, Transfer Techniques, Correct Positioning, Disease Process, Safety Issues Teaching Recipient: Patient Teaching Methods: Demonstration, Discussion Response to Teaching: Verbalize Understanding, Return Demonstration, Reinforcement Needed Time/GCodes Time In: 810 Time Out: 850 Total Billed Treatment Time: 40 Total Billed Treatment 1,GT25m,EX15m G Codes Necessary: GORDON Ernst PTA Apr 11, 2018 09:14
[2018-04-11] MEDS: OXYBUTYNIN (DITROPAN) 5 MG TAB PO SCH ×3 (10:01→20:18)
[2018-04-11] MEDS: GABAPENTIN 300 MG (NEURONTIN) CAP PO SCH ×4 (10:01→20:18)
[2018-04-11] MEDS: SENNA W/DOCUSATE (SENOKOT S) TABLET PO SCH ×2 (10:01→20:18)
[2018-04-11] MEDS: BUMETANIDE 1 MG (BUMEX) TAB PO SCH (10:01)
[2018-04-11] MEDS: predniSONE 5 MG TAB PO SCH (10:01)
[2018-04-11] MEDS: PRAMIPEXOLE 0.125 MG (MIRAPEX) TABLET PO SCH ×2 (10:01→20:18)
[2018-04-11] MEDS: TROCHE MT SCH ×4 (10:02→20:18)
[2018-04-11] MEDS: LIDOCAINE 4% (SALONPAS) PATCH TOP SCH (10:02)
[2018-04-11] MEDS: MINOCYCLINE 100 MG TABLET (NON-FORMULARY) PO SCH ×2 (10:02→21:19)
[2018-04-11] MEDS: SILVER SULFADIAZINE 50 GM CREAM TOP SCH (10:02)
[2018-04-11] MEDS: CLOTRIMAZOLE 10 MG MT SCH ×4 (10:02→20:18)
--- NOTE | 2018-04-11 12:39 | PM&R Progress Note ---
Subjective HPI/CC On Admission Date Seen by Provider: Apr 11, 2018 Time Seen by Provider: 10:45 Chief complaint: Debility HPI: This is a clinic Pt of Dr. Vasquez that I have taken care of on two separate occasions in inpatient rehab, most recently was a hip fracture that is s/p left rib fractures with small pneumothorax cared for at [facility] since last Friday. She also sustained a sternal fracture during the fall. Pt is using IS. Pain is controlled. Coumadin was restarted on 04/01/18. She did have subcutaneous emphysema on the left side from the rib fractures but now resolved. Checking CXR today and will check labs including INR tomorrow Had episode of sepsis of unknown source 3 weeks ago and that was managed conservatively. BM yesterday since she had not gone for entire hospital stay at [place]. Subjective/Events-last exam Scheduling Lortab every four hours has helped her a lot No bowel movement for two days yesterday and required aggressive use of Lactulose to get that started. Maintained on Fentanyl patch of 75. Left lateral lower leg wound improved. INR 2.2 today on Coumadin 8mg daily Review of Systems General: Fatigue Objective Exam Vital Signs Vital Signs Date Time Temp Pulse Resp B/P (MAP) Pulse Ox O2 Delivery O2 Flow Rate FiO2 04/11/18 17:17 98.4 58 18 135/75 (95) 92 Room Air 04/10/18 06:00 2.00 Capillary Refill : Less Than 3 Seconds General Appearance: No Apparent Distress, WD/WN, Chronically ill, Obese HEENT: PERRL/EOMI, Normal ENT Inspection, Pharynx Normal, Moist Mucous Membranes Neck: Full Range of Motion, Normal Inspection, Non Tender, Supple Respiratory: Lungs Clear, Normal Breath Sounds, No Accessory Muscle Use, No Respiratory Distress, Crackles (LLL) Cardiovascular: Regular Rate, Rhythm, No Edema, No Gallop, No JVD, No Murmur Gastrointestinal: Normal Bowel Sounds, No Organomegaly, No Pulsatile Mass, Non Tender, Soft Rectal: Normal Exam Back: Normal Inspection, No CVA Tenderness, No Vertebral Tenderness Extremity: Normal Capillary Refill, Normal Inspection, Normal Range of Motion, Non Tender, No Calf Tenderness, No Pedal Edema, Other (venous stais changes chronic and severe) Neurologic/Psychiatric: Alert, Oriented x3, No Motor/Sensory Deficits, Normal Mood/Affect, hand binder cutter II-XII Norm as Tested, Abnormal Gait, Motor Weakness ( generalized) Skin: Normal Color, Warm/Dry, Other (wound left lateral leg, severe varicosities with venous stasis dermatitis) Lymphatic: No Adenopathy Results/Procedures Lab Patient resulted labs reviewed. Assessment/Plan Assessment and Plan Assess & Plan/Chief Complaint Assessment: Debility Falls Left PTX Left rib fractures Left sided subcutaneous air Coumadin treatment DVT hx VINCE Night time hypoxia s/p constipation Severe venous stasis dermatitis lower legs Left lateral leg wound consulting wound care Iron deficiency s/p iron infusions 6 weeks ago Recent sepsis episode [place] [facility] [place] prior to [place] Plan: Reviewed CXR Checked labs PT/OT Fall prevention Monitor INR Maintain the increased Fentanyl patch Lortab Q4hrs scheduled INR prn (1) Debility (2) Venous stasis dermatitis of both lower extremities (3) Nocturnal hypoxia (4) Anticoagulation goal of INR 2.5 to 3.5 (5) History of fracture of left hip (6) VINCE on CPAP (7) Pneumothorax on left (8) Ribs, multiple fractures (9) Subcutaneous air (10) Overactive bladder (11) Falls (12) DVT (deep venous thrombosis) (13) Osteoarthritis (14) Edema (15) Anemia (16) Constipation (17) Knee joint replacement status Clinical Quality Measures DVT/VTE Risk/Contraindication: Risk Factor Score Per Nursin RFS Level Per Nursing on Admit: 4+=Very High DARON MARIN DO Apr 11, 2018 12:39
[2018-04-11 17:17] VITALS: BP 135/75
[2018-04-11] MEDS: warFARin 5 MG (COUMADIN) TAB PO SCH (18:16)
[2018-04-11] MEDS: warFARin 3 MG (COUMADIN) TAB PO SCH (18:16)
[2018-04-11] MEDS: LIDOCAINE PATCH REMOVAL TP SCH (20:19)
[2018-04-12] MEDS: HYDROcodone/APAP 10 MG/325 MG (LORTAB) TAB PO SCH ×6 (00:24→20:21)
[2018-04-12 05:09] VITALS: BP 156/71
[2018-04-12 05:13] VITALS: BP 107/68
[2018-04-12] MEDS: KCL 20 MEQ TAB (K-DUR) PO SCH (06:21)
[2018-04-12] MEDS: MINOCYCLINE 100 MG TABLET (NON-FORMULARY) PO SCH ×2 (08:12→20:21)
[2018-04-12] MEDS: TROCHE MT SCH ×4 (08:13→20:20)
[2018-04-12] MEDS: SENNA W/DOCUSATE (SENOKOT S) TABLET PO SCH ×2 (08:13→20:21)
[2018-04-12] MEDS: predniSONE 5 MG TAB PO SCH (08:13)
[2018-04-12] MEDS: GABAPENTIN 300 MG (NEURONTIN) CAP PO SCH ×4 (08:13→20:20)
[2018-04-12] MEDS: OXYBUTYNIN (DITROPAN) 5 MG TAB PO SCH ×3 (08:13→20:20)
[2018-04-12] MEDS: CLOTRIMAZOLE 10 MG MT SCH ×4 (08:13→20:20)
[2018-04-12] MEDS: PRAMIPEXOLE 0.125 MG (MIRAPEX) TABLET PO SCH ×2 (08:13→20:19)
[2018-04-12] MEDS: LIDOCAINE 4% (SALONPAS) PATCH TOP SCH (08:14)
[2018-04-12] MEDS: SILVER SULFADIAZINE 50 GM CREAM TOP SCH (08:14)
--- NOTE | 2018-04-12 10:41 | PM&R Progress Note ---
Subjective HPI/CC On Admission Date Seen by Provider: Apr 12, 2018 Time Seen by Provider: 10:45 Chief complaint: Debility HPI: This is a clinic Pt of Dr. Vasquez that I have taken care of on two separate occasions in inpatient rehab, most recently was a hip fracture that is s/p left rib fractures with small pneumothorax cared for at [facility] since last Friday. She also sustained a sternal fracture during the fall. Pt is using IS. Pain is controlled. Coumadin was restarted on 04/01/18. She did have subcutaneous emphysema on the left side from the rib fractures but now resolved. Checking CXR today and will check labs including INR tomorrow Had episode of sepsis of unknown source 3 weeks ago and that was managed conservatively. BM yesterday since she had not gone for entire hospital stay at [place]. Subjective/Events-last exam Scheduling Lortab every four hours has helped her a lot and will continue this Large BM Maintained on Fentanyl patch of 75. Left lateral lower leg wound improved. INR 2.2 yesterday on Coumadin 8mg daily Objective Exam Vital Signs Vital Signs Date Time Temp Pulse Resp B/P (MAP) Pulse Ox O2 Delivery O2 Flow Rate FiO2 04/12/18 17:44 97.6 58 20 120/73 (89) 95 Room Air 04/12/18 05:13 2.00 Capillary Refill : Less Than 3 Seconds General Appearance: No Apparent Distress, WD/WN, Chronically ill, Obese HEENT: PERRL/EOMI, Normal ENT Inspection, Pharynx Normal, Moist Mucous Membranes Neck: Full Range of Motion, Normal Inspection, Non Tender, Supple Respiratory: Lungs Clear, Normal Breath Sounds, No Accessory Muscle Use, No Respiratory Distress, Crackles (LLL) Cardiovascular: Regular Rate, Rhythm, No Edema, No Gallop, No JVD, No Murmur Gastrointestinal: Normal Bowel Sounds, No Organomegaly, No Pulsatile Mass, Non Tender, Soft Rectal: Normal Exam Back: Normal Inspection, No CVA Tenderness, No Vertebral Tenderness Extremity: Normal Capillary Refill, Normal Inspection, Normal Range of Motion, Non Tender, No Calf Tenderness, No Pedal Edema, Other (venous stais changes chronic and severe) Neurologic/Psychiatric: Alert, Oriented x3, No Motor/Sensory Deficits, Normal Mood/Affect, 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 Assessment/Plan Assessment and Plan Assess & Plan/Chief Complaint Assessment: Debility Falls Left PTX Left rib fractures Left sided subcutaneous air Coumadin treatment DVT hx VINCE Night time hypoxia s/p constipation Severe venous stasis dermatitis lower legs Left lateral leg wound consulting wound care Iron deficiency s/p iron infusions 6 weeks ago Recent sepsis episode managed at [facility] 2 weeks prior to fall Plan: Reviewed CXR Checked labs PT/OT Fall prevention Monitor INR Maintain the increased Fentanyl patch Lortab Q4hrs scheduled INR prn (1) Debility (2) Venous stasis dermatitis of both lower extremities (3) Nocturnal hypoxia (4) Anticoagulation goal of INR 2.5 to 3.5 (5) History of fracture of left hip (6) VINCE on CPAP (7) Pneumothorax on left (8) Ribs, multiple fractures (9) Subcutaneous air (10) Overactive bladder (11) Falls (12) DVT (deep venous thrombosis) (13) Osteoarthritis (14) Edema (15) Anemia (16) Constipation (17) Knee joint replacement status Clinical Quality Measures DVT/VTE Risk/Contraindication: Risk Factor Score Per Nursin RFS Level Per Nursing on Admit: 4+=Very High DARON MARIN DO Apr 12, 2018 10:41
[2018-04-12] MEDS: BUMETANIDE 1 MG (BUMEX) TAB PO SCH (12:30)
[2018-04-12 17:44] VITALS: BP 120/73
[2018-04-12] MEDS: warFARin 3 MG (COUMADIN) TAB PO SCH (18:06)
[2018-04-12] MEDS: warFARin 5 MG (COUMADIN) TAB PO SCH (18:06)
[2018-04-12] MEDS: LIDOCAINE PATCH REMOVAL TP SCH (20:24)
[2018-04-13] MEDS: HYDROcodone/APAP 10 MG/325 MG (LORTAB) TAB PO SCH ×6 (00:13→20:46)
[2018-04-13 06:04] VITALS: BP 116/67
[2018-04-13] MEDS: KCL 20 MEQ TAB (K-DUR) PO SCH (06:48)
--- NOTE | 2018-04-13 08:32 | PM&R Progress Note ---
Subjective HPI/CC On Admission Date Seen by Provider: Apr 13, 2018 Time Seen by Provider: 08:40 Chief complaint: Debility HPI: This is a clinic Pt of Dr. Vasquez that I have taken care of on two separate occasions in inpatient rehab, most recently was a hip fracture that is s/p left rib fractures with small pneumothorax cared for at [facility] since last Friday. She also sustained a sternal fracture during the fall. Pt is using IS. Pain is controlled. Coumadin was restarted on 04/01/18. She did have subcutaneous emphysema on the left side from the rib fractures but now resolved. Checking CXR today and will check labs including INR tomorrow Had episode of sepsis of unknown source 3 weeks ago and that was managed conservatively. BM yesterday since she had not gone for entire hospital stay at [place]. Subjective/Events-last exam Pt doing very well Incontinence of urine this morning Bowel movements x2 today Maintain on scheduled Hydrocodone and Fentanyl at 75 micrograms at which she is very pleased with the pain control now Using IS Motivated to get better Review of Systems General: Fatigue Objective Exam Vital Signs Vital Signs Date Time Temp Pulse Resp B/P (MAP) Pulse Ox O2 Delivery O2 Flow Rate FiO2 04/14/18 18:11 98.1 68 20 152/67 (95) 98 Room Air 04/12/18 05:13 2.00 Capillary Refill : Less Than 3 Seconds General Appearance: No Apparent Distress, WD/WN, Chronically ill, Obese HEENT: PERRL/EOMI, Normal ENT Inspection, Pharynx Normal, Moist Mucous Membranes Neck: Full Range of Motion, Normal Inspection, Non Tender, Supple Respiratory: Lungs Clear, Normal Breath Sounds, No Accessory Muscle Use, No Respiratory Distress, Crackles (LLL) Cardiovascular: Regular Rate, Rhythm, No Edema, No Gallop, No JVD, No Murmur Gastrointestinal: Normal Bowel Sounds, No Organomegaly, No Pulsatile Mass, Non Tender, Soft Rectal: Normal Exam Back: Normal Inspection, No CVA Tenderness, No Vertebral Tenderness Extremity: Normal Capillary Refill, Normal Inspection, Normal Range of Motion, Non Tender, No Calf Tenderness, No Pedal Edema, Other (venous stais changes chronic and severe) Neurologic/Psychiatric: Alert, Oriented x3, No Motor/Sensory Deficits, Normal Mood/Affect, 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 Assessment/Plan Assessment and Plan Assess & Plan/Chief Complaint Assessment: Debility Falls Left PTX Left rib fractures Left sided subcutaneous air Coumadin treatment DVT hx VINCE Night time hypoxia s/p constipation Severe venous stasis dermatitis lower legs Left lateral leg wound consulting wound care Iron deficiency s/p iron infusions 6 weeks ago Recent sepsis episode managed at [facility] [place] 2 weeks prior to fall Plan: Reviewed CXR Checked labs PT/OT Fall prevention Monitor INR Maintain the increased Fentanyl patch Lortab Q4hrs scheduled INR prn (1) Debility (2) Venous stasis dermatitis of both lower extremities (3) Nocturnal hypoxia (4) Anticoagulation goal of INR 2.5 to 3.5 (5) History of fracture of left hip (6) VINCE on CPAP (7) Pneumothorax on left (8) Ribs, multiple fractures (9) Subcutaneous air (10) Overactive bladder (11) Falls (12) DVT (deep venous thrombosis) (13) Osteoarthritis (14) Edema (15) Anemia (16) Constipation (17) Knee joint replacement status Clinical Quality Measures DVT/VTE Risk/Contraindication: Risk Factor Score Per Nursin RFS Level Per Nursing on Admit: 4+=Very High DARON MARIN DO Apr 13, 2018 08:32
[2018-04-13] MEDS: predniSONE 5 MG TAB PO SCH (08:58)
[2018-04-13] MEDS: CLOTRIMAZOLE 10 MG MT SCH ×2 (08:58→13:04)
[2018-04-13] MEDS: LIDOCAINE 4% (SALONPAS) PATCH TOP SCH (08:58)
[2018-04-13] MEDS: TROCHE MT SCH ×2 (08:58→13:04)
[2018-04-13] MEDS: OXYBUTYNIN (DITROPAN) 5 MG TAB PO SCH ×3 (08:58→20:47)
[2018-04-13] MEDS: PRAMIPEXOLE 0.125 MG (MIRAPEX) TABLET PO SCH ×2 (08:59→20:47)
[2018-04-13] MEDS: GABAPENTIN 300 MG (NEURONTIN) CAP PO SCH ×4 (08:59→20:47)
[2018-04-13] MEDS: MINOCYCLINE 100 MG TABLET (NON-FORMULARY) PO SCH ×2 (09:35→20:51)
[2018-04-13] MEDS: SENNA W/DOCUSATE (SENOKOT S) TABLET PO SCH ×2 (09:37→20:47)
[2018-04-13] MEDS: SILVER SULFADIAZINE 50 GM CREAM TOP SCH (09:43)
[2018-04-13] MEDS: FENTANYL PATCH REMOVAL TP SCH (10:11)
[2018-04-13] MEDS: fentaNYL PATCH 75 MCG (DURAGESIC) TD SCH (10:11)
--- NOTE | 2018-04-13 12:04 | Physical Therapy Daily Note ---
PT Daily Note-Current Subjective Pt. agrees to Rx. States she has pain in left ribs at 7/10 birgit when she begins moving, then it improves after moving about a little. Pain Numeric Pain Scale: 7 Location: Left Location Body Site: Chest (ribs) Pain Description: Stabbing Mental Status Patient Orientation: Normal For Age Transfers Therapy Code Descriptions/Definitions Functional [place] Measure: 0=Not Assessed/NA 4=Minimal Assistance 1=Total Assistance 5=Supervision or Setup 2=Maximal Assistance 6=Modified [place] 3=Moderate Assistance 7=Complete [place] Therapy Quality Codes: 6 Independent with activity with or without an assistive device 5 Patient requires set up or clean up by helper. Patient completes activity by themselves 4 Supervision or touching assist (CGA). [place] provide cues , steadying assist 3 The helper provides less than half the effort to complete the activity 2 The helper provides more than half the effort to complete the activity 1 Dependent. The helper does all the effort to complete an activity 7 Patient refused to complete or attempt activity 9 The patient did not perform the activity before the current illness or injury 88 Not attempted due to Medical conditions or safety concerns Transfers (B, C, W/C) (FIM): 4 Scootin Rollin Supine to/from Sit: 4 Sit to/from Stand: 4 Bed to/from Chair: 5 Weight Bearing Right Lower Extremity: Right Weight Bearing/Tolerated Left Lower Extremity: Left Weight Bearing/Tolerated Gait Training Does the Patient Walk?: Yes Gait (FIM): 5 Distance (FIM): 3=150 ft (170x2) Gait Level of Assist: 5 Gait Persons Needed: 1 Gait Assistive Device: FWW slow, flexed over FWW, careful, no LOB Stair Training Stair Training: Handrails/: uses walker Stairs (FIM): 2 #of Steps: 2 Stairs: Pattern: Step to Level of Assist: 4 pt. ascended descended pink small 4 in step inside parallel bars x 2 , CGA, this increases pain c/o in her ribs but pt. presses through Exercises Supine Ex: Ankle pumps, Quad Set, Glut sets, Heel Slides, Scooting, Hip abd/add Supine Reps: 12 Seated Therapy Exercises: Ankle pumps, Sit to stand, Long arc quads, Hip flexion, Hip abd/add Seated Reps: 12 NuStep Minutes: 10 NuStep Workload: 2 Assessment Current Status: Good Progress slow movement, therapeutic rest breaks needed as well as for pain to subside PT Short Term Goals Short Term Goals Time Frame: Apr 20, 2018 Transfers (B,C,W/C) (FIM): 4 Gait (FIM): 2 Distance (FIM): 1=199-77 ft Gait Assistive Device: FWW Wheelchair Distance: 100' PT Channeler Runner Goals Care Home Goals PT Channeler Runner Goals Time Frame: May 04, 2018 Transfers (B,C,W/C) (FIM): 6 Sit to Lying (QC): 6 Lying-Sitting on Side/Bed(QC): 6 Sit to Stand (QC): 6 Rollin Roll Left to Right (QC): 6 Chair/Jbr-uk-Lwxnt Xfer(QC): 6 Car Transfer (QC): 5 Does the Patient Walk: Yes Gait (FIM): 5 (household) Gait distance (FIM): 8=925-14 ft Walk 10 feet (QC): 6 Walk 10ft-Uneven Surface(QC): 6 Walk 50ft with 2 Turns (QC): 6 Walk 150 ft (QC): 88 Gait Assistive Device: FWW Stairs (FIM): 5 (household) # of Steps: 4 1 Step (curb) (QC): 6 4 Steps (QC): 6 12 Steps (QC): 88 Picking up an Object (QC): 88 PT Plan Treatment/Plan Treatment Plan: Continue Plan of Care Treatment Plan: Bed Mobility, Education, Functional Activity Ricardo, Functional Strength, Group Therapy, Gait, Safety, Therapeutic Exercise, Transfers Treatment Duration: May 04, 2018 Frequency: At least 5 of 7 days/Wk (IRF) Estimated Hrs Per Day: 1.5 hours per day Patient and/or Family Agrees t: Yes Safety Risks/Education Patient Education: Gait Training, Transfer Techniques, Steps, Correct Positioning, Disease Process, Safety Issues Teaching Recipient: Patient Teaching Methods: Demonstration, Discussion Response to Teaching: Verbalize Understanding, Return Demonstration, Reinforcement Needed Time/GCodes Time In: 1100 Time Out: 1200 Total Billed Treatment Time: 60 Total Billed Treatment 1,EX25m,GT20m,FA15m G Codes Necessary: GORDON Ernst PTA Apr 13, 2018 12:04
--- NOTE | 2018-04-13 13:41 | Physical Therapy Daily Note ---
PT Daily Note-Current Subjective Pt. agrees to Rx, wants a nap after she is finished Pain Numeric Pain Scale: 6 Location: Left Location Body Site: Chest (ribs) Pain Description: Stabbing Mental Status Patient Orientation: Normal For Age Transfers Therapy Code Descriptions/Definitions Functional [place] Measure: 0=Not Assessed/NA 4=Minimal Assistance 1=Total Assistance 5=Supervision or Setup 2=Maximal Assistance 6=Modified [place] 3=Moderate Assistance 7=Complete [place] Therapy Quality Codes: 6 Independent with activity with or without an assistive device 5 Patient requires set up or clean up by helper. Patient completes activity by themselves 4 Supervision or touching assist (CGA). [place] provide cues , steadying assist 3 The helper provides less than half the effort to complete the activity 2 The helper provides more than half the effort to complete the activity 1 Dependent. The helper does all the effort to complete an activity 7 Patient refused to complete or attempt activity 9 The patient did not perform the activity before the current illness or injury 88 Not attempted due to Medical conditions or safety concerns sit to stand from recliner and chair all CGA Weight Bearing Right Lower Extremity: Right Weight Bearing/Tolerated Left Lower Extremity: Left Weight Bearing/Tolerated Gait Training Gait Assistive Device: FWW 150x2, 25 x1 FWW slow, antalgic, g=flexed over FWW labored with each step but pt. presses on. Exercises Seated Therapy Exercises: Ankle pumps, Sit to stand, Long arc quads, Hip flexion, Hip abd/add Seated Reps: 10 Treatments in lift recline chair pt. was layed nearly flat to get her in prime position for comfort (near 0 grav) Pt. comments she finds great relief in this position and is more comfortable Assessment Current Status: Good Progress gives full effort, delightful pt. PT Short Term Goals Short Term Goals Time Frame: Apr 20, 2018 Transfers (B,C,W/C) (FIM): 4 Gait (FIM): 2 Distance (FIM): 7=464-58 ft Gait Assistive Device: FWW Wheelchair Distance: 100' PT Snf Goals Talent Rep Goals PT Talent Rep Goals Time Frame: May 04, 2018 Transfers (B,C,W/C) (FIM): 6 Sit to Lying (QC): 6 Lying-Sitting on Side/Bed(QC): 6 Sit to Stand (QC): 6 Rollin Roll Left to Right (QC): 6 Chair/Zis-ys-Ngmxw Xfer(QC): 6 Car Transfer (QC): 5 Does the Patient Walk: Yes Gait (FIM): 5 (household) Gait distance (FIM): 9=767-13 ft Walk 10 feet (QC): 6 Walk 10ft-Uneven Surface(QC): 6 Walk 50ft with 2 Turns (QC): 6 Walk 150 ft (QC): 88 Gait Assistive Device: FWW Stairs (FIM): 5 (household) # of Steps: 4 1 Step (curb) (QC): 6 4 Steps (QC): 6 12 Steps (QC): 88 Picking up an Object (QC): 88 PT Plan Treatment/Plan Treatment Plan: Continue Plan of Care Treatment Plan: Bed Mobility, Education, Functional Activity Ricardo, Functional Strength, Group Therapy, Gait, Safety, Therapeutic Exercise, Transfers Treatment Duration: May 04, 2018 Frequency: At least 5 of 7 days/Wk (IRF) Estimated Hrs Per Day: 1.5 hours per day Patient and/or Family Agrees t: Yes Safety Risks/Education Patient Education: Gait Training, Transfer Techniques, Correct Positioning, Disease Process, Safety Issues Teaching Recipient: Patient Teaching Methods: Demonstration, Discussion Response to Teaching: Verbalize Understanding, Return Demonstration, Reinforcement Needed Time/GCodes Time In: 1300 Time Out: 1335 Total Billed Treatment Time: 35 Total Billed Treatment 1,GT35m G Codes Necessary: GORDON Ernst PTA Apr 13, 2018 13:41
[2018-04-13] MEDS: BUMETANIDE 1 MG (BUMEX) TAB PO SCH (13:49)
[2018-04-13 17:24] VITALS: BP 145/76
[2018-04-13] MEDS: warFARin 3 MG (COUMADIN) TAB PO SCH (18:51)
[2018-04-13] MEDS: warFARin 5 MG (COUMADIN) TAB PO SCH (18:52)
--- NOTE | 2018-04-13 19:25 | NUR ---
bedside report received from KYLE PEREZ, assume care of pt
--- NOTE | 2018-04-13 20:00 | NUR ---
assessments & interventions completed, see assessments & interventions
--- NOTE | 2018-04-13 20:46 | NUR ---
scheduled lortab 10 1 tab po given rates pain at 6/10 on numeric scale, up in the chair, up to commode with 1 person assist & walker
[2018-04-13] MEDS: LIDOCAINE PATCH REMOVAL TP SCH (20:52)
--- NOTE | 2018-04-13 21:30 | NUR ---
rates pain at 2/10 on numeric scale
--- NOTE | 2018-04-13 22:51 | NUR ---
back to bed
[2018-04-13] MEDS: MELATONIN 3 MG TABLET PO PRN (22:57)
[2018-04-14] MEDS: HYDROcodone/APAP 10 MG/325 MG (LORTAB) TAB PO SCH ×6 (00:30→20:53)
--- NOTE | 2018-04-14 00:30 | NUR ---
scheduled lortab 10/325 1 tab given for pain level 6/10 on numeric scale
--- NOTE | 2018-04-14 01:08 | NUR ---
resting quietly in bed, pain level 0/10 on flacc scale
--- NOTE | 2018-04-14 04:30 | NUR ---
scheduled lortab 10 1 tab po given, pain level 6/10 on numeric scale
[2018-04-14 05:17] VITALS: BP 103/61
--- NOTE | 2018-04-14 05:20 | NUR ---
resting quietly in bed, pain level 0/10 on flacc scale
[2018-04-14 05:21] LABS: BASOPHILS # (AUTO) 0.1 10^3/uL (0.0-0.1); BASOPHILS % (AUTO) 1 % (0-10); EOSINOPHILS # (AUTO) 0.4 10^3/uL (0.0-0.3); EOSINOPHILS % (AUTO) 7 % (0-10); HEMATOCRIT 32 % (35-52); HEMOGLOBIN 9.8 G/DL (11.5-16.0); LYMPHOCYTES % (AUTO) 32 % (12-44); MEAN CORPUSCULAR HEMOGLOBIN 28 PG (25-34); MEAN CORPUSCULAR HGB CONC 31 G/DL (32-36); MEAN CORPUSCULAR VOLUME 92 FL (80-99); MEAN PLATELET VOLUME 10.1 FL (7.4-10.4); MONOCYTES # (AUTO) 0.6 X 10^3 (0.0-1.0); MONOCYTES % (AUTO) 9 % (0-12); NEUTROPHILS # (AUTO) 3.1 X 10^3 (1.8-7.8); NEUTROPHILS % (AUTO) 51 % (42-75); PLATELET COUNT 254 10^3/uL (130-400); WHITE BLOOD COUNT 6.2 10^3/uL (4.3-11.0)
[2018-04-14 05:33] LABS: INR 2.2 (0.8-1.4); PROTHROMBIN TIME PATIENT 24.5 SEC (12.2-14.7)
[2018-04-14 05:43] LABS: ALANINE AMINOTRANSFERASE 9 U/L (0-55); ALBUMIN 2.8 GM/DL (3.2-4.5); ALKALINE PHOSPHATASE 152 U/L (40-136); BILIRUBIN,TOTAL 0.1 MG/DL (0.1-1.0); BUN/CREATININE RATIO 29; CALCIUM 8.4 MG/DL (8.5-10.1); CARBON DIOXIDE 26 MMOL/L (21-32); CHLORIDE 107 MMOL/L (98-107); CREATININE SERUM 0.62 MG/DL (0.60-1.30); GFR ESTIMATED > 60; GLUCOSE 93 MG/DL (70-105); POTASSIUM 4.1 MMOL/L (3.6-5.0); SODIUM 142 MMOL/L (135-145); TOTAL PROTEIN 5.2 GM/DL (6.4-8.2)
[2018-04-14] MEDS: KCL 20 MEQ TAB (K-DUR) PO SCH (07:02)
--- NOTE | 2018-04-14 07:22 | NUR ---
bedside report given to VIVIAN PEREZ
[2018-04-14] MEDS: OXYBUTYNIN (DITROPAN) 5 MG TAB PO SCH ×3 (08:15→20:52)
[2018-04-14] MEDS: GABAPENTIN 300 MG (NEURONTIN) CAP PO SCH ×4 (08:15→20:52)
[2018-04-14] MEDS: PRAMIPEXOLE 0.125 MG (MIRAPEX) TABLET PO SCH ×2 (08:15→20:53)
[2018-04-14] MEDS: predniSONE 5 MG TAB PO SCH (08:16)
[2018-04-14] MEDS: SILVER SULFADIAZINE 50 GM CREAM TOP SCH (08:17)
[2018-04-14] MEDS: MINOCYCLINE 100 MG TABLET (NON-FORMULARY) PO SCH ×2 (08:18→20:53)
[2018-04-14] MEDS: SENNA W/DOCUSATE (SENOKOT S) TABLET PO SCH ×2 (08:19→20:53)
[2018-04-14] MEDS: LIDOCAINE 4% (SALONPAS) PATCH TOP SCH (08:20)
--- NOTE | 2018-04-14 08:30 | PM&R Progress Note ---
Subjective HPI/CC On Admission Date Seen by Provider: Apr 14, 2018 Time Seen by Provider: 08:25 Chief complaint: Debility HPI: This is a clinic Pt of Dr. Vasquez that I have taken care of on two separate occasions in inpatient rehab, most recently was a hip fracture that is s/p left rib fractures with small pneumothorax cared for at [facility] since last Friday. She also sustained a sternal fracture during the fall. Pt is using IS. Pain is controlled. Coumadin was restarted on 04/01/18. She did have subcutaneous emphysema on the left side from the rib fractures but now resolved. Checking CXR today and will check labs including INR tomorrow Had episode of sepsis of unknown source 3 weeks ago and that was managed conservatively. BM yesterday since she had not gone for entire hospital stay at [place]. Subjective/Events-last exam Hgb is 9.8 Iron level pending INR 2.2 Overall doing well No bowel movement today after major evacuation the last two days Overall feeling really good with the scheduled pain medications Using IS Reports rib pain at times Objective Exam Vital Signs Vital Signs Date Time Temp Pulse Resp B/P (MAP) Pulse Ox O2 Delivery O2 Flow Rate FiO2 04/14/18 18:11 98.1 68 20 152/67 (95) 98 Room Air 04/12/18 05:13 2.00 Capillary Refill : Less Than 3 Seconds General Appearance: No Apparent Distress, WD/WN, Chronically ill, Obese HEENT: PERRL/EOMI, Normal ENT Inspection, Pharynx Normal, Moist Mucous Membranes Neck: Full Range of Motion, Normal Inspection, Non Tender, Supple Respiratory: Lungs Clear, Normal Breath Sounds, No Accessory Muscle Use, No Respiratory Distress, Crackles (LLL) Cardiovascular: Regular Rate, Rhythm, No Edema, No Gallop, No JVD, No Murmur Gastrointestinal: Normal Bowel Sounds, No Organomegaly, No Pulsatile Mass, Non Tender, Soft Rectal: Normal Exam Back: Normal Inspection, No CVA Tenderness, No Vertebral Tenderness Extremity: Normal Capillary Refill, Normal Inspection, Normal Range of Motion, Non Tender, No Calf Tenderness, No Pedal Edema, Other (venous stais changes chronic and severe) Neurologic/Psychiatric: Alert, Oriented x3, No Motor/Sensory Deficits, Normal Mood/Affect, golf club repairer II-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 Assessment/Plan Assessment and Plan Assess & Plan/Chief Complaint Assessment: Debility Falls Left PTX Left rib fractures Left sided subcutaneous air Coumadin treatment DVT hx VINCE Night time hypoxia s/p constipation Severe venous stasis dermatitis lower legs Left lateral leg wound consulting wound care Iron deficiency s/p iron infusions 6 weeks ago Recent [place] [facility] [place] Plan: Reviewed CXR Checked labs PT/OT Fall prevention Monitor INR Maintain the increased Fentanyl patch Lortab Q4hrs scheduled INR prn but today stable at 2.2 (1) Debility (2) Venous stasis dermatitis of both lower extremities (3) Nocturnal hypoxia (4) Anticoagulation goal of INR 2.5 to 3.5 (5) History of fracture of left hip (6) VINCE on CPAP (7) Pneumothorax on left (8) Ribs, multiple fractures (9) Subcutaneous air (10) Overactive bladder (11) Falls (12) DVT (deep venous thrombosis) (13) Osteoarthritis (14) Edema (15) Anemia (16) Constipation (17) Knee joint replacement status Clinical Quality Measures DVT/VTE Risk/Contraindication: Risk Factor Score Per Nursin RFS Level Per Nursing on Admit: 4+=Very High DARON MARIN DO Apr 14, 2018 08:30
--- NOTE | 2018-04-14 09:48 | Occupational Ther Daily Note ---
OT Current Status-Daily Note Subjective LATE ENTRY FOR 04/13/2018: Pt alert, sitting in recliner. Pt agrees to therapy. No c/o pain at this time. Mental Status/Objective Patient Orientation: Person, Place, Time, Situation Therapy Code Descriptions/Definitions Functional [place] Measure: 0=Not Assessed/NA 4=Minimal Assistance 1=Total Assistance 5=Supervision or Setup 2=Maximal Assistance 6=Modified [place] 3=Moderate Assistance 7=Complete [place] ADL-Treatment Therapy Code Descriptions/Definitions Functional [place] Measure: 0=Not Assessed/NA 4=Minimal Assistance 1=Total Assistance 5=Supervision or Setup 2=Maximal Assistance 6=Modified [place] 3=Moderate Assistance 7=Complete [place] Therapy Quality Codes: 6 Independent with activity with or without an assistive device 5 Patient requires set up or clean up by helper. Patient completes activity by themselves 4 Supervision or touching assist (CGA). [place] provide cues , steadying assist 3 The helper provides less than half the effort to complete the activity 2 The helper provides more than half the effort to complete the activity 1 Dependent. The helper does all the effort to complete an activity 7 Patient refused to complete or attempt activity 9 The patient did not perform the activity before the current illness or injury 88 Not attempted due to Medical conditions or safety concerns Grooming (FIM): 6 (Sitting at sink, completed oral care and brushed hair.) Oral Hygiene (QC): 6 Bathing (FIM): 5 (SBA using grabbar, hand held shower, long handle sponge and shower bench. ) Bathing Location: L Arm, R Arm, L Upper Leg, R Upper Leg, L Lower Leg ( including foot), R Lower Leg (including foot), Chest, Abdomen, Buttocks, Perineal Area Shower/Bathe Self (QC): 4 Upper Body (FIM): 5 (SBA due to pain in ribs.) Upper Body Dressing (QC): 4 Lower Body Dressing (FIM): 4 (Pt able to don/doff over feet and pull up LE's. Assist in standing to hike pants over hips.) Lower Body Dressing (QC): 3 On/Off Footwear (QC): 3 Shower Transfer(FIM): 4 (Min A for sit to stand using grabbars.) Pt took increased time to complete tasks due to decreased activity tolerance and recovery breaks. After therapy, pt sitting in recliner with call light/ phone in reach. All needs met in room. OT Short Term Goals Short Term Goals Time Frame: Apr 13, 2018 Eating(FIM): 5 Grooming(FIM): 5 Bathing(FIM): 4 Upper Body Dressing(FIM): 4 Lower Body Dressing(FIM): 3 Toileting(FIM): 4 Transfers (B,C,W/C) (FIM): 4 Toilet/Commode Transfer(FIM): 3 Shower Transfer(FIM): 3 Additional Short Term Goals: 1-Demonstrate ADL Tasks, 2-Verbalize Understanding , 3-ImproveStrength/Ricardo 1=Demonstrate adherence to instructed precautions during ADL tasks. 2=Patient will verbalize/demonstrate understanding of assistive devices/ modifications for ADL. 3=Patient will improve strength/tolerance for activity to enable patient to perform ADL's. OT Fci Goals Affiliate Manager Goals Time Frame: Apr 20, 2018 Eating (FIM): 7 Eating (QC): 6 Groomin Oral Hygiene (QC): 6 Bathing(FIM): 5 Shower/Bathe Self (QC): 5 Upper Body Dressing(FIM): 5 Upper Body Dressing (QC): 5 Lower Body Dressing(FIM): 5 Lower Body Dressing (QC): 5 On/Off Footwear (QC): 5 Toileting(FIM): 6 Toileting Hygiene (QC): 6 Transfers (B,C,W/C) (FIM): 6 Toilet/Commode Transfer(FIM): 6 Toilet/Commode Transfer (QC): 6 Shower Transfer(FIM): 5 Additional Goals: 1-Demonstrate ADL Tasks, 2-Verbalize Understanding, 3- ImproveStrength/Ricardo 1=Demonstrate adherence to instructed precautions during ADL tasks. 2=Patient will verbalize/demonstrate understanding of assistive devices/ modifications for ADL. 3=Patient will improve strength/tolerance for activity to enable patient to perform ADL's. OT Education/Plan Discharge Recommendations Plan/Recommendations: Continue POC Treatment Plan/Plan of Care Patient would benefit from OT for education, treatment and training to promote independence in ADL's, mobility, safety and/or upper extremity function for ADL' s. Plan of Care: ADL Retraining, Functional Mobility, Group Exercise/Act as Ind, UE Funct Exercise/Act Treatment Duration: Apr 20, 2018 Frequency: At least 5 of 7 days/Wk (IRF) Estimated Hrs Per Day: 1.5 hours per day Agreement: Yes Rehab Potential: Good Time/GCodes Start Time: 08:00 Stop Time: 09:30 Total Time Billed (hr/min): 90 Billed Treatment Time 1 visit-ADL 6 (90 min) AMANUEL MATHEWS Apr 14, 2018 09:48
--- NOTE | 2018-04-14 10:45 | NUR ---
Pastoral care visit.
--- NOTE | 2018-04-14 10:47 | NUR ---
PT EATING WELL, 100% MEALS AND WEIGHT IS STABLE. INTAKE MEETING NEEDS AT THIS TIME. CONT SAME.
--- NOTE | 2018-04-14 10:55 | Physical Therapy Daily Note ---
PT Daily Note-Current Subjective Pt sitting in recliner upon arrival. Pt agrees to PT. Pain Numeric Pain Scale: 7 Location: Left Location Body Site: Side Pain Description: Ache Mental Status Patient Orientation: Person, Place, Time, Situation Transfers Therapy Code Descriptions/Definitions Functional [place] Measure: 0=Not Assessed/NA 4=Minimal Assistance 1=Total Assistance 5=Supervision or Setup 2=Maximal Assistance 6=Modified [place] 3=Moderate Assistance 7=Complete [place] Therapy Quality Codes: 6 Independent with activity with or without an assistive device 5 Patient requires set up or clean up by helper. Patient completes activity by themselves 4 Supervision or touching assist (CGA). [place] provide cues , steadying assist 3 The helper provides less than half the effort to complete the activity 2 The helper provides more than half the effort to complete the activity 1 Dependent. The helper does all the effort to complete an activity 7 Patient refused to complete or attempt activity 9 The patient did not perform the activity before the current illness or injury 88 Not attempted due to Medical conditions or safety concerns Scootin Sit to/from Stand: 4 Sit to Stand (QC): 4 Weight Bearing Right Lower Extremity: Right Weight Bearing/Tolerated Left Lower Extremity: Left Weight Bearing/Tolerated Gait Training Does the Patient Walk?: Yes Distance (FIM): 3=150 ft Distance: 150' x2 Walk 10 feet (QC): 5 Walk 50 ft with 2 Turns(QC): 5 Walk 150 ft (QC): 5 Gait Level of Assist: 5 Gait Persons Needed: 1 Gait Assistive Device: FWW Pt has a slow margarita, antalgic gait. Wheelchair Training Does the Pt Use a Wheelchair?: No Exercises Seated Therapy Exercises: Ankle pumps, Long arc quads, Hip flexion, Kicking activity, Hip abd/add Seated Reps: 15 NuStep Minutes: 10 NuStep Workload: 4 Treatments Pt transfers from recliner and ambulates in hallway using FWW at SBA. Pt uses NuStep for 10m at WL 4, completes Seated Ex followed by rest break. Pt returns to room to use restroom then returns to recliner to rest at end of tx. Pt has all needs met. Assessment Current Status: Good Progress Pt continues to show motivation and demonstrates increase in strength. Pt is still limited by pain and would like to another week on ARU to work before going home. PT Short Term Goals Short Term Goals Time Frame: Apr 20, 2018 Transfers (B,C,W/C) (FIM): 4 Gait (FIM): 2 Distance (FIM): 1=658-67 ft Gait Assistive Device: FWW Wheelchair Distance: 100' PT Alf Goals Alf Goals PT Alf Goals Time Frame: May 04, 2018 Transfers (B,C,W/C) (FIM): 6 Sit to Lying (QC): 6 Lying-Sitting on Side/Bed(QC): 6 Sit to Stand (QC): 6 Rollin Roll Left to Right (QC): 6 Chair/Tez-dx-Ebuit Xfer(QC): 6 Car Transfer (QC): 5 Does the Patient Walk: Yes Gait (FIM): 5 (household) Gait distance (FIM): 7=629-86 ft Walk 10 feet (QC): 6 Walk 10ft-Uneven Surface(QC): 6 Walk 50ft with 2 Turns (QC): 6 Walk 150 ft (QC): 88 Gait Assistive Device: FWW Stairs (FIM): 5 (household) # of Steps: 4 1 Step (curb) (QC): 6 4 Steps (QC): 6 12 Steps (QC): 88 Picking up an Object (QC): 88 PT Plan Problem List Problem List: Activity Tolerance, Functional Strength, Gait, Transfer Treatment/Plan Treatment Plan: Continue Plan of Care Treatment Plan: Bed Mobility, Education, Functional Activity Ricardo, Functional Strength, Group Therapy, Gait, Safety, Therapeutic Exercise, Transfers Treatment Duration: May 04, 2018 Frequency: At least 5 of 7 days/Wk (IRF) Estimated Hrs Per Day: 1.5 hours per day Patient and/or Family Agrees t: Yes Safety Risks/Education Patient Education: Gait Training, Transfer Techniques, Correct Positioning, Safety Issues Teaching Recipient: Patient Teaching Methods: Discussion Response to Teaching: Verbalize Understanding Time/GCodes Time In: 930 Time Out: 1030 Total Billed Treatment Time: 60 Total Billed Treatment 1, GT (20m), FA x2 (25m) & EX (15m) G Codes Necessary: LUIS Mckinney PODIATRY PROFESSOR Apr 14, 2018 10:55
--- NOTE | 2018-04-14 12:01 | Occupational Ther Daily Note ---
OT Current Status-Daily Note Subjective Pt sitting in chair, agrees to treatment. Pt reports 6/10 pain in ribs. RN provides pain medication. Mental Status/Objective Therapy Code Descriptions/Definitions Functional [place] Measure: 0=Not Assessed/NA 4=Minimal Assistance 1=Total Assistance 5=Supervision or Setup 2=Maximal Assistance 6=Modified [place] 3=Moderate Assistance 7=Complete [place] ADL-Treatment Pt sit to stand with minimal assistance. Gait to restroom with FWW. Transfer to [facility] over toilet using grab bars for safety. Pt requires assist for toileting hygiene. Transfer to walk in shower with minimal assistance. Pt doffed clothing with SBA. Seated bathing completed with minimal assistance to wash buttocks. Pt uses long handled sponge to wash lower legs and feet. Don pullover shirt with minimal assistance secondary to pain in ribs. Pt used firmware architect to start Depends and pants over feet with SBA. Sit to stand with minimal assistance. Pt requires assist to pull pants up in back. Pt donned bilateral socks with SBA using sock aid. Increased time required for ADL tasks. Pt brushed teeth with set up while seated. Combed hair with SBA using long handled brush. Pt transferred to recliner chair with SBA. Sitting with needs met after session. Therapy Code Descriptions/Definitions Functional [place] Measure: 0=Not Assessed/NA 4=Minimal Assistance 1=Total Assistance 5=Supervision or Setup 2=Maximal Assistance 6=Modified [place] 3=Moderate Assistance 7=Complete [place] Therapy Quality Codes: 6 Independent with activity with or without an assistive device 5 Patient requires set up or clean up by helper. Patient completes activity by themselves 4 Supervision or touching assist (CGA). [place] provide cues , steadying assist 3 The helper provides less than half the effort to complete the activity 2 The helper provides more than half the effort to complete the activity 1 Dependent. The helper does all the effort to complete an activity 7 Patient refused to complete or attempt activity 9 The patient did not perform the activity before the current illness or injury 88 Not attempted due to Medical conditions or safety concerns Bathing (FIM): 4 Shower/Bathe Self (QC): 3 Upper Body (FIM): 4 Upper Body Dressing (QC): 3 Lower Body Dressing (FIM): 4 Lower Body Dressing (QC): 3 Toilet/Commode Transfer (FIM): 4 Toilet Transfer (QC): 3 Shower Transfer(FIM): 4 OT Short Term Goals Short Term Goals Time Frame: Apr 13, 2018 Eating(FIM): 5 Grooming(FIM): 5 Bathing(FIM): 4 Upper Body Dressing(FIM): 4 Lower Body Dressing(FIM): 3 Toileting(FIM): 4 Transfers (B,C,W/C) (FIM): 4 Toilet/Commode Transfer(FIM): 3 Shower Transfer(FIM): 3 Additional Short Term Goals: 1-Demonstrate ADL Tasks, 2-Verbalize Understanding , 3-ImproveStrength/Ricardo 1=Demonstrate adherence to instructed precautions during ADL tasks. 2=Patient will verbalize/demonstrate understanding of assistive devices/ modifications for ADL. 3=Patient will improve strength/tolerance for activity to enable patient to perform ADL's. OT Talent Rep Goals Shelter Goals Time Frame: Apr 20, 2018 Eating (FIM): 7 Eating (QC): 6 Groomin Oral Hygiene (QC): 6 Bathing(FIM): 5 Shower/Bathe Self (QC): 5 Upper Body Dressing(FIM): 5 Upper Body Dressing (QC): 5 Lower Body Dressing(FIM): 5 Lower Body Dressing (QC): 5 On/Off Footwear (QC): 5 Toileting(FIM): 6 Toileting Hygiene (QC): 6 Transfers (B,C,W/C) (FIM): 6 Toilet/Commode Transfer(FIM): 6 Toilet/Commode Transfer (QC): 6 Shower Transfer(FIM): 5 Additional Goals: 1-Demonstrate ADL Tasks, 2-Verbalize Understanding, 3- ImproveStrength/Ricardo 1=Demonstrate adherence to instructed precautions during ADL tasks. 2=Patient will verbalize/demonstrate understanding of assistive devices/ modifications for ADL. 3=Patient will improve strength/tolerance for activity to enable patient to perform ADL's. OT Education/Plan Discharge Recommendations Plan/Recommendations: Continue POC Treatment Plan/Plan of Care Patient would benefit from OT for education, treatment and training to promote independence in ADL's, mobility, safety and/or upper extremity function for ADL' s. Plan of Care: ADL Retraining, Functional Mobility, Group Exercise/Act as Ind, UE Funct Exercise/Act Treatment Duration: Apr 20, 2018 Frequency: At least 5 of 7 days/Wk (IRF) Estimated Hrs Per Day: 1.5 hours per day Agreement: Yes Rehab Potential: Good Time/GCodes Start Time: 08:00 Stop Time: 09:30 Total Time Billed (hr/min): 90 Billed Treatment Time 1 visit, ADLx6(90minutes) TEGAN HOOD OT Apr 14, 2018 12:01
[2018-04-14] MEDS: BUMETANIDE 1 MG (BUMEX) TAB PO SCH (14:08)
--- NOTE | 2018-04-14 15:34 | Physical Therapy Daily Note ---
PT Daily Note-Current Subjective Pt sitting in recliner upon arrival. Pt is very drowsy but agrees to PT. Pt reports feeling very tired, took nap after morning tx. Pain Numeric Pain Scale: 7 Location: Left Location Body Site: Side Pain Description: Ache Mental Status Patient Orientation: Person, Place, Time, Situation Transfers Therapy Code Descriptions/Definitions Functional [place] Measure: 0=Not Assessed/NA 4=Minimal Assistance 1=Total Assistance 5=Supervision or Setup 2=Maximal Assistance 6=Modified [place] 3=Moderate Assistance 7=Complete [place] Therapy Quality Codes: 6 Independent with activity with or without an assistive device 5 Patient requires set up or clean up by helper. Patient completes activity by themselves 4 Supervision or touching assist (CGA). [place] provide cues , steadying assist 3 The helper provides less than half the effort to complete the activity 2 The helper provides more than half the effort to complete the activity 1 Dependent. The helper does all the effort to complete an activity 7 Patient refused to complete or attempt activity 9 The patient did not perform the activity before the current illness or injury 88 Not attempted due to Medical conditions or safety concerns Weight Bearing Right Lower Extremity: Right Weight Bearing/Tolerated Left Lower Extremity: Left Weight Bearing/Tolerated Exercises Seated Therapy Exercises: Ankle pumps, Long arc quads, Hip flexion, Kicking activity Seated Reps: 20 Treatments Pt completes Seated Ex in recliner followed by rest break. Pt also wanted to discuss wanting more time on ARU to improve before going home. Pt also states that pain limits performance but knows pain meds have been given as much as can be given. Pt resting at end of tx with all needs met. Assessment Current Status: Good Progress Pt moves slowly and is limited by visible pain. PT Short Term Goals Short Term Goals Time Frame: Apr 20, 2018 Transfers (B,C,W/C) (FIM): 4 Gait (FIM): 2 Distance (FIM): 8=049-01 ft Gait Assistive Device: FWW Wheelchair Distance: 100' PT Polymerization Kettle Operator Goals Group Home Goals PT Polymerization Kettle Operator Goals Time Frame: May 04, 2018 Transfers (B,C,W/C) (FIM): 6 Sit to Lying (QC): 6 Lying-Sitting on Side/Bed(QC): 6 Sit to Stand (QC): 6 Rollin Roll Left to Right (QC): 6 Chair/[id number]-[id number] Xfer(QC): 6 Car Transfer (QC): 5 Does the Patient Walk: Yes Gait (FIM): 5 (household) Gait distance (FIM): 3=475-06 ft Walk 10 feet (QC): 6 Walk 10ft-Uneven Surface(QC): 6 Walk 50ft with 2 Turns (QC): 6 Walk 150 ft (QC): 88 Gait Assistive Device: FWW Stairs (FIM): 5 (household) # of Steps: 4 1 Step (curb) (QC): 6 4 Steps (QC): 6 12 Steps (QC): 88 Picking up an Object (QC): 88 PT Plan Problem List Problem List: Activity Tolerance, Functional Strength, Gait, Transfer Treatment/Plan Treatment Plan: Continue Plan of Care Treatment Plan: Bed Mobility, Education, Functional Activity Ricardo, Functional Strength, Group Therapy, Gait, Safety, Therapeutic Exercise, Transfers Treatment Duration: May 04, 2018 Frequency: At least 5 of 7 days/Wk (IRF) Estimated Hrs Per Day: 1.5 hours per day Patient and/or Family Agrees t: Yes Safety Risks/Education Patient Education: Correct Positioning, Safety Issues Teaching Recipient: Patient Teaching Methods: Discussion Response to Teaching: Verbalize Understanding Time/GCodes Time In: 1400 Time Out: 1430 Total Billed Treatment Time: 30 Total Billed Treatment 1, EX (20m) & FA (10m) G Codes Necessary: LUIS Mckinney PTA Apr 14, 2018 15:34
[2018-04-14] MEDS: warFARin 3 MG (COUMADIN) TAB PO SCH (17:42)
[2018-04-14] MEDS: warFARin 5 MG (COUMADIN) TAB PO SCH (17:43)
[2018-04-14 18:11] VITALS: BP 152/67
[2018-04-14] MEDS: LIDOCAINE PATCH REMOVAL TP SCH (20:53)
[2018-04-15] MEDS: HYDROcodone/APAP 10 MG/325 MG (LORTAB) TAB PO SCH ×6 (00:26→20:27)
[2018-04-15 06:15] VITALS: BP 110/63
[2018-04-15] MEDS: KCL 20 MEQ TAB (K-DUR) PO SCH (07:02)
[2018-04-15] MEDS: PRAMIPEXOLE 0.125 MG (MIRAPEX) TABLET PO SCH ×2 (07:56→20:27)
[2018-04-15] MEDS: OXYBUTYNIN (DITROPAN) 5 MG TAB PO SCH ×3 (07:56→20:26)
[2018-04-15] MEDS: SENNA W/DOCUSATE (SENOKOT S) TABLET PO SCH ×2 (07:57→20:27)
[2018-04-15] MEDS: predniSONE 5 MG TAB PO SCH (07:57)
[2018-04-15] MEDS: GABAPENTIN 300 MG (NEURONTIN) CAP PO SCH ×4 (07:57→20:27)
[2018-04-15] MEDS: MINOCYCLINE 100 MG TABLET (NON-FORMULARY) PO SCH ×2 (07:58→20:27)
[2018-04-15] MEDS: LIDOCAINE 4% (SALONPAS) PATCH TOP SCH (07:59)
[2018-04-15] MEDS: SILVER SULFADIAZINE 50 GM CREAM TOP SCH (08:54)
--- NOTE | 2018-04-15 09:00 | NUR ---
COMPLAIN HEAD CONGESTION AND STARTED ON CLARITIN. ALSO COMPLAIN INCREASED PAIN IN LEFT ARM. DR. TOMAS PATEL.
--- NOTE | 2018-04-15 09:13 | PM&R Progress Note ---
Subjective HPI/CC On Admission Date Seen by Provider: Apr 15, 2018 Time Seen by Provider: 08:40 Chief complaint: Debility HPI: This is a clinic Pt of Dr. Vasquez that I have taken care of on two separate occasions in inpatient rehab, most recently was a hip fracture that is s/p left rib fractures with small pneumothorax cared for at [facility] since last Friday. She also sustained a sternal fracture during the fall. Pt is using IS. Pain is controlled. Coumadin was restarted on 04/01/18. She did have subcutaneous emphysema on the left side from the rib fractures but now resolved. Checking CXR today and will check labs including INR tomorrow Had episode of sepsis of unknown source 3 weeks ago and that was managed conservatively. BM yesterday since she had not gone for entire hospital stay at [place]. Subjective/Events-last exam Pt is doing well. Pt is asking for Claritin for congestion. Left upper arm pain and wonders if that was involved in the fall a couple weeks ago. Ribs are healing but it is going to take a slow process. Has oxygen at home that she uses. Will discharge at 04/24/18 next Friday. Iron level is low at 32 so will start IV and begin Venofer infusion once again. Review of Systems General: Fatigue Musculoskeletal: arm pain Objective Exam Vital Signs Vital Signs Date Time Temp Pulse Resp B/P (MAP) Pulse Ox O2 Delivery O2 Flow Rate FiO2 04/15/18 18:00 98.4 63 18 160/84 (109) 98 Room Air 04/15/18 06:15 3.00 Capillary Refill : Less Than 3 Seconds General Appearance: No Apparent Distress, WD/WN, Chronically ill, Obese HEENT: PERRL/EOMI, Normal ENT Inspection, Pharynx Normal, Moist Mucous Membranes Neck: Full Range of Motion, Normal Inspection, Non Tender, Supple Respiratory: Lungs Clear, Normal Breath Sounds, No Accessory Muscle Use, No Respiratory Distress, Crackles (LLL) Cardiovascular: Regular Rate, Rhythm, No Edema, No Gallop, No JVD, No Murmur Gastrointestinal: Normal Bowel Sounds, No Organomegaly, No Pulsatile Mass, Non Tender, Soft Rectal: Normal Exam Back: Normal Inspection, No CVA Tenderness, No Vertebral Tenderness Extremity: Normal Capillary Refill, Normal Inspection, Normal Range of Motion, Non Tender, No Calf Tenderness, No Pedal Edema, Other (venous stais changes chronic and severe) Neurologic/Psychiatric: Alert, Oriented x3, No Motor/Sensory Deficits, Normal Mood/Affect, machine coil assembler II-XII Norm as Tested, Abnormal Gait, Motor Weakness ( generalized) Skin: Normal Color, Warm/Dry, Other (wound left lateral leg, severe varicosities with venous stasis dermatitis) Lymphatic: No Adenopathy Results/Procedures Lab Patient resulted labs reviewed. Assessment/Plan Assessment and Plan Assess & Plan/Chief Complaint Assessment: Debility Falls Left PTX Left rib fractures Left sided subcutaneous air Coumadin treatment DVT hx VINCE Night time hypoxia s/p constipation Severe venous stasis dermatitis lower legs Left lateral leg wound consulting wound care Iron deficiency s/p iron infusions 6 weeks ago and low again so will repeat the iron infusions again Recent sepsis episode managed at [facility] 2 weeks prior to fall Plan: Reviewed CXR Checked labs PT/OT Fall prevention Monitor INR Maintain the increased Fentanyl patch Lortab Q4hrs scheduled INR prn but today stable at 2.2 Venofer infusions (1) Debility (2) Venous stasis dermatitis of both lower extremities (3) Nocturnal hypoxia (4) Anticoagulation goal of INR 2.5 to 3.5 (5) History of fracture of left hip (6) VINCE on CPAP (7) Pneumothorax on left (8) Ribs, multiple fractures (9) Subcutaneous air (10) Overactive bladder (11) Falls (12) DVT (deep venous thrombosis) (13) Osteoarthritis (14) Edema (15) Anemia (16) Constipation (17) Knee joint replacement status Clinical Quality Measures DVT/VTE Risk/Contraindication: Risk Factor Score Per Nursin RFS Level Per Nursing on Admit: 4+=Very High DARON MARIN DO Apr 15, 2018 09:13
[2018-04-15] MEDS: LORATADINE (CLARITIN) 10 MG TAB PO SCH (10:12)
--- NOTE | 2018-04-15 11:55 | Physical Therapy Daily Note ---
PT Daily Note-Current Subjective Pt. agrees to Rx. Willing to try step again today. Feels rib pain is improving slowly Pain Numeric Pain Scale: 4 Location: Left Location Body Site: Chest (ribs) Pain Description: Pressure Mental Status Patient Orientation: Normal For Age Transfers Therapy Code Descriptions/Definitions Functional [place] Measure: 0=Not Assessed/NA 4=Minimal Assistance 1=Total Assistance 5=Supervision or Setup 2=Maximal Assistance 6=Modified [place] 3=Moderate Assistance 7=Complete [place] Therapy Quality Codes: 6 Independent with activity with or without an assistive device 5 Patient requires set up or clean up by helper. Patient completes activity by themselves 4 Supervision or touching assist (CGA). [place] provide cues , steadying assist 3 The helper provides less than half the effort to complete the activity 2 The helper provides more than half the effort to complete the activity 1 Dependent. The helper does all the effort to complete an activity 7 Patient refused to complete or attempt activity 9 The patient did not perform the activity before the current illness or injury 88 Not attempted due to Medical conditions or safety concerns Transfers (B, C, W/C) (FIM): 5 Scootin Rollin Supine to/from Sit: 5 Sit to/from Stand: 5 Weight Bearing Right Lower Extremity: Right Weight Bearing/Tolerated Left Lower Extremity: Left Weight Bearing/Tolerated Gait Training Does the Patient Walk?: Yes Gait (FIM): 5 Distance (FIM): 3=150 ft (165x2) Gait Level of Assist: 5 Gait Persons Needed: 1 Gait Assistive Device: FWW slow, flexed over FWW, very careful, no LOB Stair Training Stair Training: Handrails/: 2 handrails Stairs (FIM): 2 #of Steps: 4 Stairs: Pattern: Step to Level of Assist: 4 Exercises Supine Ex: Ankle pumps, Quad Set, Hip abd/add Supine Reps: 10 Seated Therapy Exercises: Ankle pumps, Sit to stand, Long arc quads, Hip flexion, Hip abd/add Seated Reps: 15 NuStep Minutes: 15 NuStep Workload: 2 Treatments Pt. feels Nustep loosens her joints and helps increase ease of completing Rx. Assessment Current Status: Good Progress slow steady progress all phases of Rx PT Short Term Goals Short Term Goals Time Frame: Apr 20, 2018 Transfers (B,C,W/C) (FIM): 4 Gait (FIM): 2 Distance (FIM): 5=874-01 ft Gait Assistive Device: FWW Wheelchair Distance: 100' PT [facility] Goals [facility] Goals PT [facility] Goals Time Frame: May 04, 2018 Transfers (B,C,W/C) (FIM): 6 Sit to Lying (QC): 6 Lying-Sitting on Side/Bed(QC): 6 Sit to Stand (QC): 6 Rollin Roll Left to Right (QC): 6 Chair/Uey-wg-Pvocb Xfer(QC): 6 Car Transfer (QC): 5 Does the Patient Walk: Yes Gait (FIM): 5 (household) Gait distance (FIM): 4=516-42 ft Walk 10 feet (QC): 6 Walk 10ft-Uneven Surface(QC): 6 Walk 50ft with 2 Turns (QC): 6 Walk 150 ft (QC): 88 Gait Assistive Device: FWW Stairs (FIM): 5 (household) # of Steps: 4 1 Step (curb) (QC): 6 4 Steps (QC): 6 12 Steps (QC): 88 Picking up an Object (QC): 88 PT Plan Treatment/Plan Treatment Plan: Continue Plan of Care Treatment Plan: Bed Mobility, Education, Functional Activity Ricardo, Functional Strength, Group Therapy, Gait, Safety, Therapeutic Exercise, Transfers Treatment Duration: May 04, 2018 Frequency: At least 5 of 7 days/Wk (IRF) Estimated Hrs Per Day: 1.5 hours per day Patient and/or Family Agrees t: Yes Safety Risks/Education Patient Education: Gait Training, Transfer Techniques, Steps, Correct Positioning, Disease Process, Safety Issues Teaching Recipient: Patient Teaching Methods: Demonstration, Discussion Response to Teaching: Verbalize Understanding, Return Demonstration, Reinforcement Needed Time/GCodes Time In: 1030 Time Out: 1200 Total Billed Treatment Time: 90 Total Billed Treatment 1,EX30m,GT25m,FA35 G Codes Necessary: GORDON Ernst PTA Apr 15, 2018 11:55
--- NOTE | 2018-04-15 11:57 | Occupational Ther Daily Note ---
OT Current Status-Daily Note Subjective Pt agrees to therapy this morning. Reports 7/10 pain in ribs. RN provided pain medication. Mental Status/Objective Therapy Code Descriptions/Definitions Functional [place] Measure: 0=Not Assessed/NA 4=Minimal Assistance 1=Total Assistance 5=Supervision or Setup 2=Maximal Assistance 6=Modified [place] 3=Moderate Assistance 7=Complete [place] ADL-Treatment Pt requests shower this morning. Gait to restroom with FWW. Transfer to walk in shower with minimal assistance. Seated bathing completed using long handled sponge and hand held shower. Pt requires assist to wash/dry buttocks, but is able to wash other areas using AE as needed. Don pullover shirt with SBA. Pt uses amusement centre manager to start Depends and pants over feet. Sit to stand with minimal assistance. Pt fatigues with activity and requires assist to pull pants up in back. SBA to don socks using sock aid. Transfer to [facility] over toilet. Pt requires assist to pull pants up after toileting. Pt sat at sink to complete grooming tasks. Pt brushed teeth without assistance. Used long handled brush to comb hair. Pt requires increased time for ADL tasks. Takes occasional rest breaks throughout treatment secondary to fatigue and pain. Pt transferred to recliner chair using FWW. Sitting in chair with needs met after session. Therapy Code Descriptions/Definitions Functional [place] Measure: 0=Not Assessed/NA 4=Minimal Assistance 1=Total Assistance 5=Supervision or Setup 2=Maximal Assistance 6=Modified [place] 3=Moderate Assistance 7=Complete [place] Therapy Quality Codes: 6 Independent with activity with or without an assistive device 5 Patient requires set up or clean up by helper. Patient completes activity by themselves 4 Supervision or touching assist (CGA). [place] provide cues , steadying assist 3 The helper provides less than half the effort to complete the activity 2 The helper provides more than half the effort to complete the activity 1 Dependent. The helper does all the effort to complete an activity 7 Patient refused to complete or attempt activity 9 The patient did not perform the activity before the current illness or injury 88 Not attempted due to Medical conditions or safety concerns Grooming (FIM): 6 Oral Hygiene (QC): 6 Bathing (FIM): 4 Shower/Bathe Self (QC): 3 Upper Body (FIM): 5 Upper Body Dressing (QC): 4 Lower Body Dressing (FIM): 4 Lower Body Dressing (QC): 3 Toileting (FIM): 3 Toilet/Commode Transfer (FIM): 4 Shower Transfer(FIM): 4 OT Short Term Goals Short Term Goals Time Frame: Apr 13, 2018 Eating(FIM): 5 Grooming(FIM): 5 Bathing(FIM): 4 Upper Body Dressing(FIM): 4 Lower Body Dressing(FIM): 3 Toileting(FIM): 4 Transfers (B,C,W/C) (FIM): 4 Toilet/Commode Transfer(FIM): 3 Shower Transfer(FIM): 3 Additional Short Term Goals: 1-Demonstrate ADL Tasks, 2-Verbalize Understanding , 3-ImproveStrength/Ricardo 1=Demonstrate adherence to instructed precautions during ADL tasks. 2=Patient will verbalize/demonstrate understanding of assistive devices/ modifications for ADL. 3=Patient will improve strength/tolerance for activity to enable patient to perform ADL's. OT Group Home Goals Group Home Goals Time Frame: Apr 20, 2018 Eating (FIM): 7 Eating (QC): 6 Groomin Oral Hygiene (QC): 6 Bathing(FIM): 5 Shower/Bathe Self (QC): 5 Upper Body Dressing(FIM): 5 Upper Body Dressing (QC): 5 Lower Body Dressing(FIM): 5 Lower Body Dressing (QC): 5 On/Off Footwear (QC): 5 Toileting(FIM): 6 Toileting Hygiene (QC): 6 Transfers (B,C,W/C) (FIM): 6 Toilet/Commode Transfer(FIM): 6 Toilet/Commode Transfer (QC): 6 Shower Transfer(FIM): 5 Additional Goals: 1-Demonstrate ADL Tasks, 2-Verbalize Understanding, 3- ImproveStrength/Ricardo 1=Demonstrate adherence to instructed precautions during ADL tasks. 2=Patient will verbalize/demonstrate understanding of assistive devices/ modifications for ADL. 3=Patient will improve strength/tolerance for activity to enable patient to perform ADL's. OT Education/Plan Discharge Recommendations Plan/Recommendations: Continue POC Treatment Plan/Plan of Care Patient would benefit from OT for education, treatment and training to promote independence in ADL's, mobility, safety and/or upper extremity function for ADL' s. Plan of Care: ADL Retraining, Functional Mobility, Group Exercise/Act as Ind, UE Funct Exercise/Act Treatment Duration: Apr 20, 2018 Frequency: At least 5 of 7 days/Wk (IRF) Estimated Hrs Per Day: 1.5 hours per day Agreement: Yes Rehab Potential: Good Time/GCodes Start Time: 08:00 Stop Time: 09:30 Total Time Billed (hr/min): 90 Billed Treatment Time 1 visit, ADLx6(90minutes) TEGAN HOOD OT Apr 15, 2018 11:57
[2018-04-15] MEDS: BUMETANIDE 1 MG (BUMEX) TAB PO SCH (14:00)
--- NOTE | 2018-04-15 14:00 | NUR ---
IV STARTED IN LEFT ARM BY CHRIS DECKER FOR [facility]OF[facility] INFUSION. VENOFER WENT IN, BUT IV INFILTRATED AFTERWARDS. ORDER OBTAINED FOR MIDLINE AND DAY SURGERY NOTIFIED. IT WILL BE PUT IN TOMORROW.
[2018-04-15] MEDS: IRON SUCROSE 200 MG/10 ML (VENOFER) VIAL IV SCH (14:39)
[2018-04-15] MEDS: warFARin 5 MG (COUMADIN) TAB PO SCH (17:03)
[2018-04-15] MEDS: warFARin 3 MG (COUMADIN) TAB PO SCH (17:03)
[2018-04-15 18:00] VITALS: BP 160/84
--- NOTE | 2018-04-15 18:24 | NUR ---
REMEDIAL PROJECT MANAGER assisted patient with phone interview with Beatriz at [facility] in regards to qualification for paid homecare services. Due to patient's income, she does not qualify for services at this time; however, patient is interested in private duty caregiving services. REMEDIAL PROJECT MANAGER has provided patient with [facility] homecare providers. REMEDIAL PROJECT MANAGER reviewed team conference summary with patient. As patient continues to require standby assistance for transfers and gait, min assist with shower transfers and min to mod assist for lower body and toileting, team has recommended discharge be held until 04/24. Patient is agreeable to this discharge date. REMEDIAL PROJECT MANAGER will continue to follow for additional needs.
[2018-04-15] MEDS: LIDOCAINE PATCH REMOVAL TP SCH (20:28)
[2018-04-16] MEDS: HYDROcodone/APAP 10 MG/325 MG (LORTAB) TAB PO SCH ×6 (00:13→20:10)
[2018-04-16 05:26] VITALS: BP 107/67
[2018-04-16] MEDS: KCL 20 MEQ TAB (K-DUR) PO SCH (06:18)
--- NOTE | 2018-04-16 07:58 | PM&R Progress Note ---
Subjective HPI/CC On Admission Date Seen by Provider: Apr 16, 2018 Time Seen by Provider: 08:00 Chief complaint: Debility HPI: This is a clinic Pt of Dr. Vasquez that I have taken care of on two separate occasions in inpatient rehab, most recently was a hip fracture that is s/p left rib fractures with small pneumothorax cared for at [facility] since last Friday. She also sustained a sternal fracture during the fall. Pt is using IS. Pain is controlled. Coumadin was restarted on 04/01/18. She did have subcutaneous emphysema on the left side from the rib fractures but now resolved. Checking CXR today and will check labs including INR tomorrow Had episode of sepsis of unknown source 3 weeks ago and that was managed conservatively. BM yesterday since she had not gone for entire hospital stay at [place]. Subjective/Events-last exam Iron level of 32 will start on iron infusions. Will place midline in preparation for that due to poor venous access. Pain is controlled but the ribs are still causing her problems. Slept pretty well. Scheduled Lortab and Fentanyl patch helps significantly with the pain. Review of Systems General: Fatigue Musculoskeletal: leg pain Objective Exam Vital Signs Vital Signs Date Time Temp Pulse Resp B/P (MAP) Pulse Ox O2 Delivery O2 Flow Rate FiO2 04/16/18 18:12 98.6 61 18 143/82 (102) 95 Room Air 04/15/18 06:15 3.00 Capillary Refill : Less Than 3 Seconds General Appearance: No Apparent Distress, WD/WN, Chronically ill, Obese HEENT: PERRL/EOMI, Normal ENT Inspection, Pharynx Normal, Moist Mucous Membranes Neck: Full Range of Motion, Normal Inspection, Non Tender, Supple Respiratory: Lungs Clear, Normal Breath Sounds, No Accessory Muscle Use, No Respiratory Distress, Crackles (LLL) Cardiovascular: Regular Rate, Rhythm, No Edema, No Gallop, No JVD, No Murmur Gastrointestinal: Normal Bowel Sounds, No Organomegaly, No Pulsatile Mass, Non Tender, Soft Rectal: Normal Exam Back: Normal Inspection, No CVA Tenderness, No Vertebral Tenderness Extremity: Normal Capillary Refill, Normal Inspection, Normal Range of Motion, Non Tender, No Calf Tenderness, No Pedal Edema, Other (venous stais changes chronic and severe) Neurologic/Psychiatric: Alert, Oriented x3, No Motor/Sensory Deficits, Normal 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 Assessment/Plan Assessment and Plan Assess & Plan/Chief Complaint Assessment: Debility Falls Left PTX Left rib fractures Left sided subcutaneous air Coumadin treatment DVT hx VINCE Night time hypoxia s/p constipation Severe venous stasis dermatitis lower legs Left lateral leg wound consulting wound care Iron deficiency s/p iron infusions 6 weeks ago and low again so will repeat the iron infusions again Recent [place] [facility] [place] Plan: Reviewed CXR Checked labs PT/OT Fall prevention Monitor INR Maintain the increased Fentanyl patch Lortab Q4hrs scheduled INR prn but today stable at 2.2 Venofer infusions (1) Debility (2) Venous stasis dermatitis of both lower extremities (3) Nocturnal hypoxia (4) Anticoagulation goal of INR 2.5 to 3.5 (5) History of fracture of left hip (6) VINCE on CPAP (7) Pneumothorax on left (8) Ribs, multiple fractures (9) Subcutaneous air (10) Overactive bladder (11) Falls (12) DVT (deep venous thrombosis) (13) Osteoarthritis (14) Edema (15) Anemia (16) Constipation (17) Knee joint replacement status Clinical Quality Measures DVT/VTE Risk/Contraindication: Risk Factor Score Per Nursin RFS Level Per Nursing on Admit: 4+=Very High DARON MARIN DO Apr 16, 2018 07:58
--- NOTE | 2018-04-16 08:30 | NUR ---
Midline placed by surgical nurse in Left upper arm. Patient tolerated procedure well.
[2018-04-16] MEDS: PRAMIPEXOLE 0.125 MG (MIRAPEX) TABLET PO SCH ×2 (08:50→20:10)
[2018-04-16] MEDS: MINOCYCLINE 100 MG TABLET (NON-FORMULARY) PO SCH ×2 (08:50→20:11)
[2018-04-16] MEDS: predniSONE 5 MG TAB PO SCH (08:51)
[2018-04-16] MEDS: GABAPENTIN 300 MG (NEURONTIN) CAP PO SCH ×4 (08:51→20:11)
[2018-04-16] MEDS: LORATADINE (CLARITIN) 10 MG TAB PO SCH (08:51)
[2018-04-16] MEDS: fentaNYL PATCH 75 MCG (DURAGESIC) TD SCH (08:51)
[2018-04-16] MEDS: LIDOCAINE 4% (SALONPAS) PATCH TOP SCH (08:51)
[2018-04-16] MEDS: SENNA W/DOCUSATE (SENOKOT S) TABLET PO SCH ×2 (08:51→20:10)
[2018-04-16] MEDS: OXYBUTYNIN (DITROPAN) 5 MG TAB PO SCH ×3 (08:51→20:11)
[2018-04-16] MEDS: FENTANYL PATCH REMOVAL TP SCH (08:59)
--- NOTE | 2018-04-16 09:07 | Occupational Ther Daily Note ---
OT Current Status-Daily Note Subjective Pt alert, lying in bed. Pt agrees to therapy. Pt was upset by everything that is going on with her health. Pt cried and vented then stated that she felt better. Mental Status/Objective Patient Orientation: Person, Place, Time, Situation Therapy Code Descriptions/Definitions Functional [place] Measure: 0=Not Assessed/NA 4=Minimal Assistance 1=Total Assistance 5=Supervision or Setup 2=Maximal Assistance 6=Modified [place] 3=Moderate Assistance 7=Complete [place] Attachments: Central Line ADL-Treatment Pt takes increased time to complete tasks due to slow mobility, activity tolerance. Pt requested to wash hair today. Assist needed due to decreased shldr ROM and central lined being placed in L upper arm before OT session. After therapy, pt sitting in recliner with call light/phone in reach. All needs met in room. Therapy Code Descriptions/Definitions Functional [place] Measure: 0=Not Assessed/NA 4=Minimal Assistance 1=Total Assistance 5=Supervision or Setup 2=Maximal Assistance 6=Modified [place] 3=Moderate Assistance 7=Complete [place] Therapy Quality Codes: 6 Independent with activity with or without an assistive device 5 Patient requires set up or clean up by helper. Patient completes activity by themselves 4 Supervision or touching assist (CGA). [place] provide cues , steadying assist 3 The helper provides less than half the effort to complete the activity 2 The helper provides more than half the effort to complete the activity 1 Dependent. The helper does all the effort to complete an activity 7 Patient refused to complete or attempt activity 9 The patient did not perform the activity before the current illness or injury 88 Not attempted due to Medical conditions or safety concerns Grooming (FIM): 6 (Pt given supplies in bed by and pt able to complete by self.) Oral Hygiene (QC): 6 Upper Body (FIM): 4 (Assist due to pt anxious about central line that was placed today in L upper arm.) Upper Body Dressing (QC): 3 Toileting (FIM): 5 (Pt able to manipulate clothing and cleanse self.) Toileting Hygiene (QC): 4 (Supervision for safety) Toilet/Commode Transfer (FIM): 5 (Supervision for safety using BSC, FWW and grabbars.) Toilet Transfer (QC): 4 OT Short Term Goals Short Term Goals Time Frame: Apr 13, 2018 Eating(FIM): 5 Grooming(FIM): 5 Bathing(FIM): 4 Upper Body Dressing(FIM): 4 Lower Body Dressing(FIM): 3 Toileting(FIM): 4 Transfers (B,C,W/C) (FIM): 4 Toilet/Commode Transfer(FIM): 3 Shower Transfer(FIM): 3 Additional Short Term Goals: 1-Demonstrate ADL Tasks, 2-Verbalize Understanding , 3-ImproveStrength/Ricardo 1=Demonstrate adherence to instructed precautions during ADL tasks. 2=Patient will verbalize/demonstrate understanding of assistive devices/ modifications for ADL. 3=Patient will improve strength/tolerance for activity to enable patient to perform ADL's. OT Game Farm Helper Goals Retirement Goals Time Frame: Apr 20, 2018 Eating (FIM): 7 Eating (QC): 6 Groomin Oral Hygiene (QC): 6 Bathing(FIM): 5 Shower/Bathe Self (QC): 5 Upper Body Dressing(FIM): 5 Upper Body Dressing (QC): 5 Lower Body Dressing(FIM): 5 Lower Body Dressing (QC): 5 On/Off Footwear (QC): 5 Toileting(FIM): 6 Toileting Hygiene (QC): 6 Transfers (B,C,W/C) (FIM): 6 Toilet/Commode Transfer(FIM): 6 Toilet/Commode Transfer (QC): 6 Shower Transfer(FIM): 5 Additional Goals: 1-Demonstrate ADL Tasks, 2-Verbalize Understanding, 3- ImproveStrength/Ricardo 1=Demonstrate adherence to instructed precautions during ADL tasks. 2=Patient will verbalize/demonstrate understanding of assistive devices/ modifications for ADL. 3=Patient will improve strength/tolerance for activity to enable patient to perform ADL's. OT Education/Plan Discharge Recommendations Plan/Recommendations: Continue POC Treatment Plan/Plan of Care Patient would benefit from OT for education, treatment and training to promote independence in ADL's, mobility, safety and/or upper extremity function for ADL' s. Plan of Care: ADL Retraining, Functional Mobility, Group Exercise/Act as Ind, UE Funct Exercise/Act Treatment Duration: Apr 20, 2018 Frequency: At least 5 of 7 days/Wk (IRF) Estimated Hrs Per Day: 1.5 hours per day Agreement: Yes Rehab Potential: Good Time/GCodes Start Time: 09:00 Stop Time: 10:30 Total Time Billed (hr/min): 90 Billed Treatment Time 1 visit-ADL 6 (90 min) AMANUEL MATHEWS Apr 16, 2018 09:07
[2018-04-16] MEDS: SILVER SULFADIAZINE 50 GM CREAM TOP SCH (10:00)
--- NOTE | 2018-04-16 11:10 | Physical Therapy Daily Note ---
PT Daily Note-Current Subjective Pt laying Supine in bed for Central line to be placed upon arrival. Pt agrees to limited PT due to discomfort in arm. Pain Numeric Pain Scale: 6 Location: Left Location Body Site: Side Pain Description: Pressure, Sharp Mental Status Patient Orientation: Person, Place, Time, Situation Transfers Therapy Code Descriptions/Definitions Functional [place] Measure: 0=Not Assessed/NA 4=Minimal Assistance 1=Total Assistance 5=Supervision or Setup 2=Maximal Assistance 6=Modified [place] 3=Moderate Assistance 7=Complete [place] Therapy Quality Codes: 6 Independent with activity with or without an assistive device 5 Patient requires set up or clean up by helper. Patient completes activity by themselves 4 Supervision or touching assist (CGA). [place] provide cues , steadying assist 3 The helper provides less than half the effort to complete the activity 2 The helper provides more than half the effort to complete the activity 1 Dependent. The helper does all the effort to complete an activity 7 Patient refused to complete or attempt activity 9 The patient did not perform the activity before the current illness or injury 88 Not attempted due to Medical conditions or safety concerns Weight Bearing Right Lower Extremity: Right Weight Bearing/Tolerated Left Lower Extremity: Left Weight Bearing/Tolerated Exercises Supine Ex: Ankle pumps, Quad Set, Glut sets, Straight leg raise, Hip abd/add Supine Reps: 20 Treatments Pt has placement of Central line for Iron pt will receive completed. Pt and METAL FRAMER review plan for DC on 04/24 since Weekly Mtg yesterday. Pt anxious for getting to go home. Pt completes Supine Ex with rest as needed. OT arrives at end of tx. Pt has all needs met. Assessment Current Status: Fair Progress Pt reports not sleeping well and a little tired today. PT Short Term Goals Short Term Goals Time Frame: Apr 20, 2018 Transfers (B,C,W/C) (FIM): 4 Gait (FIM): 2 Distance (FIM): 8=185-39 ft Gait Assistive Device: FWW Wheelchair Distance: 100' PT Halfway Goals Halfway Goals PT Halfway Goals Time Frame: May 04, 2018 Transfers (B,C,W/C) (FIM): 6 Sit to Lying (QC): 6 Lying-Sitting on Side/Bed(QC): 6 Sit to Stand (QC): 6 Rollin Roll Left to Right (QC): 6 Chair/Tnm-vw-Meaww Xfer(QC): 6 Car Transfer (QC): 5 Does the Patient Walk: Yes Gait (FIM): 5 (household) Gait distance (FIM): 5=878-38 ft Walk 10 feet (QC): 6 Walk 10ft-Uneven Surface(QC): 6 Walk 50ft with 2 Turns (QC): 6 Walk 150 ft (QC): 88 Gait Assistive Device: FWW Stairs (FIM): 5 (household) # of Steps: 4 1 Step (curb) (QC): 6 4 Steps (QC): 6 12 Steps (QC): 88 Picking up an Object (QC): 88 PT Plan Problem List Problem List: Activity Tolerance, Functional Strength, Safety, Balance, Gait, Transfer, Bed Mobility Treatment/Plan Treatment Plan: Continue Plan of Care Treatment Plan: Bed Mobility, Education, Functional Activity Ricardo, Functional Strength, Group Therapy, Gait, Safety, Therapeutic Exercise, Transfers Treatment Duration: May 04, 2018 Frequency: At least 5 of 7 days/Wk (IRF) Estimated Hrs Per Day: 1.5 hours per day Patient and/or Family Agrees t: Yes Safety Risks/Education Patient Education: Transfer Techniques, Correct Positioning, Safety Issues Teaching Recipient: Patient Teaching Methods: Discussion Response to Teaching: Verbalize Understanding Time/GCodes Time In: 815 Time Out: 900 Total Billed Treatment Time: 45 Total Billed Treatment 1, FA x2 (25m) & EX (20m) G Codes Necessary: LUIS Mckinney PTA Apr 16, 2018 11:10
[2018-04-16] MEDS: BUMETANIDE 1 MG (BUMEX) TAB PO SCH (14:33)
--- NOTE | 2018-04-16 15:53 | Physical Therapy Daily Note ---
PT Daily Note-Current Subjective Pt sitting in recliner upon arrival. Pt agrees to PT. Pain Numeric Pain Scale: 6 Location Body Site: Side Pain Description: Ache Comment: Pt's ribs are uncomfortable with movement. Mental Status Patient Orientation: Person, Place, Time, Situation Transfers Therapy Code Descriptions/Definitions Functional [place] Measure: 0=Not Assessed/NA 4=Minimal Assistance 1=Total Assistance 5=Supervision or Setup 2=Maximal Assistance 6=Modified [place] 3=Moderate Assistance 7=Complete [place] Therapy Quality Codes: 6 Independent with activity with or without an assistive device 5 Patient requires set up or clean up by helper. Patient completes activity by themselves 4 Supervision or touching assist (CGA). [place] provide cues , steadying assist 3 The helper provides less than half the effort to complete the activity 2 The helper provides more than half the effort to complete the activity 1 Dependent. The helper does all the effort to complete an activity 7 Patient refused to complete or attempt activity 9 The patient did not perform the activity before the current illness or injury 88 Not attempted due to Medical conditions or safety concerns Scootin Sit to/from Stand: 5 Sit to Stand (QC): 5 Weight Bearing Right Lower Extremity: Right Weight Bearing/Tolerated Left Lower Extremity: Left Weight Bearing/Tolerated Gait Training Does the Patient Walk?: Yes Distance (FIM): 3=150 ft Distance: 150' Walk 10 feet (QC): 5 Walk 50 ft with 2 Turns(QC): 5 Walk 150 ft (QC): 5 Gait Level of Assist: 5 Gait Persons Needed: 1 Gait Assistive Device: FWW Pt walks with slow antalgic gait pattern. Exercises NuStep Minutes: 10 NuStep Workload: 4 Treatments Pt transfers and uses FWW in hallway at SBA. Pt uses NuStep for 10m at 4. Pt returns to room to use restroom at end of tx. Pt has all needs met. Assessment Current Status: Good Progress Pt moves slowly but is motivated to push self to improve while in ARU. PT Short Term Goals Short Term Goals Time Frame: Apr 20, 2018 Transfers (B,C,W/C) (FIM): 4 Gait (FIM): 2 Distance (FIM): 3=714-32 ft Gait Assistive Device: FWW Wheelchair Distance: 100' PT Halfway Goals Halfway Goals PT Military Analyst Goals Time Frame: May 04, 2018 Transfers (B,C,W/C) (FIM): 6 Sit to Lying (QC): 6 Lying-Sitting on Side/Bed(QC): 6 Sit to Stand (QC): 6 Rollin Roll Left to Right (QC): 6 Chair/Joa-kx-Oxbwm Xfer(QC): 6 Car Transfer (QC): 5 Does the Patient Walk: Yes Gait (FIM): 5 (household) Gait distance (FIM): 4=634-99 ft Walk 10 feet (QC): 6 Walk 10ft-Uneven Surface(QC): 6 Walk 50ft with 2 Turns (QC): 6 Walk 150 ft (QC): 88 Gait Assistive Device: FWW Stairs (FIM): 5 (household) # of Steps: 4 1 Step (curb) (QC): 6 4 Steps (QC): 6 12 Steps (QC): 88 Picking up an Object (QC): 88 PT Plan Problem List Problem List: Activity Tolerance, Functional Strength, Gait Treatment/Plan Treatment Plan: Continue Plan of Care Treatment Plan: Bed Mobility, Education, Functional Activity Ricardo, Functional Strength, Group Therapy, Gait, Safety, Therapeutic Exercise, Transfers Treatment Duration: May 04, 2018 Frequency: At least 5 of 7 days/Wk (IRF) Estimated Hrs Per Day: 1.5 hours per day Patient and/or Family Agrees t: Yes Safety Risks/Education Patient Education: Gait Training, Transfer Techniques, Correct Positioning, Safety Issues Teaching Recipient: Patient Teaching Methods: Discussion Response to Teaching: Verbalize Understanding Time/GCodes Time In: 1300 Time Out: 1345 Total Billed Treatment 1, GT (20m), EX (15m) & FA (10m) G Codes Necessary: LUIS Mckinney PTA Apr 16, 2018 15:53
[2018-04-16] MEDS: warFARin 3 MG (COUMADIN) TAB PO SCH (18:08)
[2018-04-16] MEDS: warFARin 5 MG (COUMADIN) TAB PO SCH (18:08)
[2018-04-16 18:12] VITALS: BP 143/82
[2018-04-16] MEDS: LIDOCAINE PATCH REMOVAL TP SCH (20:13)
[2018-04-17] MEDS: HYDROcodone/APAP 10 MG/325 MG (LORTAB) TAB PO SCH ×6 (00:48→20:38)
[2018-04-17] MEDS: KCL 20 MEQ TAB (K-DUR) PO SCH (05:04)
[2018-04-17 05:46] VITALS: BP 112/69
--- NOTE | 2018-04-17 09:11 | PM&R Progress Note ---
Subjective HPI/CC On Admission Date Seen by Provider: Apr 17, 2018 Time Seen by Provider: 09:30 Chief complaint: Debility HPI: This is a clinic Pt of Dr. Vasquez that I have taken care of on two separate occasions in inpatient rehab, most recently was a hip fracture that is s/p left rib fractures with small pneumothorax cared for at [facility] since last Friday. She also sustained a sternal fracture during the fall. Pt is using IS. Pain is controlled. Coumadin was restarted on 04/01/18. She did have subcutaneous emphysema on the left side from the rib fractures but now resolved. Checking CXR today and will check labs including INR tomorrow Had episode of sepsis of unknown source 3 weeks ago and that was managed conservatively. BM yesterday since she had not gone for entire hospital stay at [place]. Subjective/Events-last exam Iron level of 32 and patient is tolerating the iron infusions. Replaced midline due to dysfunction. Pain is controlled but the ribs are still causing her problems. Slept pretty well. Scheduled Lortab and Fentanyl patch helps significantly with the pain. Using IS Review of Systems General: Fatigue Objective Exam Vital Signs Vital Signs Date Time Temp Pulse Resp B/P (MAP) Pulse Ox O2 Delivery O2 Flow Rate FiO2 04/18/18 08:00 Room Air 04/18/18 06:00 2.00 04/18/18 05:10 99.5 50 16 94/58 (70) 95 Capillary Refill : Less Than 3 Seconds General Appearance: No Apparent Distress, WD/WN, Chronically ill, Obese HEENT: PERRL/EOMI, Normal ENT Inspection, Pharynx Normal, Moist Mucous Membranes Neck: Full Range of Motion, Normal Inspection, Non Tender, Supple Respiratory: Lungs Clear, Normal Breath Sounds, No Accessory Muscle Use, No Respiratory Distress, Crackles (LLL) Cardiovascular: Regular Rate, Rhythm, No Edema, No Gallop, No JVD, No Murmur Gastrointestinal: Normal Bowel Sounds, No Organomegaly, No Pulsatile Mass, Non Tender, Soft Rectal: Normal Exam Back: Normal Inspection, No CVA Tenderness, No Vertebral Tenderness Extremity: Normal Capillary Refill, Normal Inspection, Normal Range of Motion, Non Tender, No Calf Tenderness, No Pedal Edema, Other (venous stais changes chronic and severe) Neurologic/Psychiatric: Alert, Oriented x3, No Motor/Sensory Deficits, Normal Mood/Affect, him assistant II-XII Norm as Tested, Abnormal Gait, Motor Weakness ( generalized) Skin: Normal Color, Warm/Dry, Other (wound left lateral leg, severe varicosities with venous stasis dermatitis) Lymphatic: No Adenopathy Results/Procedures Lab Patient resulted labs reviewed. Assessment/Plan Assessment and Plan Assess & Plan/Chief Complaint Assessment: Debility Falls Left PTX Left rib fractures Left sided subcutaneous air Coumadin treatment DVT hx VINCE Night time hypoxia s/p constipation Severe venous stasis dermatitis lower legs Left lateral leg wound consulting wound care Iron deficiency s/p iron infusions 6 weeks ago and low again so will repeat the iron infusions again Recent [place] [facility] [place] Poor venous access Plan: Reviewed CXR Checked labs PT/OT Fall prevention Monitor INR Maintain the increased Fentanyl patch Lortab Q4hrs scheduled INR prn but today stable at 2.2 Venofer infusions Midline replacement (1) Debility (2) Venous stasis dermatitis of both lower extremities (3) Nocturnal hypoxia (4) Anticoagulation goal of INR 2.5 to 3.5 (5) History of fracture of left hip (6) VINCE on CPAP (7) Pneumothorax on left (8) Ribs, multiple fractures (9) Subcutaneous air (10) Overactive bladder (11) Falls (12) DVT (deep venous thrombosis) (13) Osteoarthritis (14) Edema (15) Anemia (16) Constipation (17) Knee joint replacement status Clinical Quality Measures DVT/VTE Risk/Contraindication: Risk Factor Score Per Nursin RFS Level Per Nursing on Admit: 4+=Very High DARON MARIN DO Apr 17, 2018 09:11
[2018-04-17] MEDS: PRAMIPEXOLE 0.125 MG (MIRAPEX) TABLET PO SCH ×2 (09:19→20:39)
[2018-04-17] MEDS: OXYBUTYNIN (DITROPAN) 5 MG TAB PO SCH ×3 (09:19→20:39)
[2018-04-17] MEDS: predniSONE 5 MG TAB PO SCH (09:19)
[2018-04-17] MEDS: GABAPENTIN 300 MG (NEURONTIN) CAP PO SCH ×4 (09:19→20:39)
[2018-04-17] MEDS: LORATADINE (CLARITIN) 10 MG TAB PO SCH (09:19)
[2018-04-17] MEDS: SENNA W/DOCUSATE (SENOKOT S) TABLET PO SCH ×2 (09:19→20:39)
[2018-04-17] MEDS: LIDOCAINE 4% (SALONPAS) PATCH TOP SCH (09:20)
[2018-04-17] MEDS: IRON SUCROSE 200 MG/10 ML (VENOFER) VIAL IV SCH (09:20)
[2018-04-17] MEDS: SILVER SULFADIAZINE 50 GM CREAM TOP SCH (09:22)
--- NOTE | 2018-04-17 11:09 | Occupational Ther Daily Note ---
OT Current Status-Daily Note Subjective Pt alert, sitting EOB. Pt agrees to therapy. No c/o pain at this time. Mental Status/Objective Patient Orientation: Person, Place Therapy Code Descriptions/Definitions Functional [place] Measure: 0=Not Assessed/NA 4=Minimal Assistance 1=Total Assistance 5=Supervision or Setup 2=Maximal Assistance 6=Modified [place] 3=Moderate Assistance 7=Complete [place] ADL-Treatment Therapy Code Descriptions/Definitions Functional [place] Measure: 0=Not Assessed/NA 4=Minimal Assistance 1=Total Assistance 5=Supervision or Setup 2=Maximal Assistance 6=Modified [place] 3=Moderate Assistance 7=Complete [place] Therapy Quality Codes: 6 Independent with activity with or without an assistive device 5 Patient requires set up or clean up by helper. Patient completes activity by themselves 4 Supervision or touching assist (CGA). [place] provide cues , steadying assist 3 The helper provides less than half the effort to complete the activity 2 The helper provides more than half the effort to complete the activity 1 Dependent. The helper does all the effort to complete an activity 7 Patient refused to complete or attempt activity 9 The patient did not perform the activity before the current illness or injury 88 Not attempted due to Medical conditions or safety concerns Eating (FIM): 6 (Pt able to set up and use regular) Eating (QC): 6 Grooming (FIM): 6 (Sitting at sink, pt able to brush hair and teeth. Washed hands and face in shower.) Oral Hygiene (QC): 6 Bathing (FIM): 5 (Using grabbar, long handle sponge, hand held shower and shower bench pt able to complete with supervision.) Bathing Location: L Arm, R Arm, L Upper Leg, R Upper Leg, L Lower Leg ( including foot), R Lower Leg (including foot), Chest, Abdomen, Buttocks, Perineal Area Shower/Bathe Self (QC): 4 Upper Body (FIM): 4 (Assist due to decreased ROM of shldrs) Upper Body Dressing (QC): 3 Lower Body Dressing (FIM): 4 (Assist to hike pants over buttocks. Pt using AE to don/doff lower body clothing.) Lower Body Dressing (QC): 3 On/Off Footwear (QC): 6 Toileting (FIM): 4 (Pt hiked pants down over hips, assist up over buttocks. Pt cleansed self sitting on toilet.) Toileting Hygiene (QC): 3 Toilet/Commode Transfer (FIM): 5 (Supervision for safety. ) Toilet Transfer (QC): 4 Shower Transfer(FIM): 5 (SBA for safety using grabbars, FWW and shower bench.) After therapy, pt sitting in recliner with call light/phone in reach. All needs met in room. OT Short Term Goals Short Term Goals Time Frame: Apr 13, 2018 Eating(FIM): 5 Grooming(FIM): 5 Bathing(FIM): 4 Upper Body Dressing(FIM): 4 Lower Body Dressing(FIM): 3 Toileting(FIM): 4 Transfers (B,C,W/C) (FIM): 4 Toilet/Commode Transfer(FIM): 3 Shower Transfer(FIM): 3 Additional Short Term Goals: 1-Demonstrate ADL Tasks, 2-Verbalize Understanding , 3-ImproveStrength/Ricardo 1=Demonstrate adherence to instructed precautions during ADL tasks. 2=Patient will verbalize/demonstrate understanding of assistive devices/ modifications for ADL. 3=Patient will improve strength/tolerance for activity to enable patient to perform ADL's. OT Correction Goals Correction Goals Time Frame: Apr 20, 2018 Eating (FIM): 7 Eating (QC): 6 Groomin Oral Hygiene (QC): 6 Bathing(FIM): 5 Shower/Bathe Self (QC): 5 Upper Body Dressing(FIM): 5 Upper Body Dressing (QC): 5 Lower Body Dressing(FIM): 5 Lower Body Dressing (QC): 5 On/Off Footwear (QC): 5 Toileting(FIM): 6 Toileting Hygiene (QC): 6 Transfers (B,C,W/C) (FIM): 6 Toilet/Commode Transfer(FIM): 6 Toilet/Commode Transfer (QC): 6 Shower Transfer(FIM): 5 Additional Goals: 1-Demonstrate ADL Tasks, 2-Verbalize Understanding, 3- ImproveStrength/Ricardo 1=Demonstrate adherence to instructed precautions during ADL tasks. 2=Patient will verbalize/demonstrate understanding of assistive devices/ modifications for ADL. 3=Patient will improve strength/tolerance for activity to enable patient to perform ADL's. OT Education/Plan Discharge Recommendations Plan/Recommendations: Continue POC Treatment Plan/Plan of Care Patient would benefit from OT for education, treatment and training to promote independence in ADL's, mobility, safety and/or upper extremity function for ADL' s. Plan of Care: ADL Retraining, Functional Mobility, Group Exercise/Act as Ind, UE Funct Exercise/Act Treatment Duration: Apr 20, 2018 Frequency: At least 5 of 7 days/Wk (IRF) Estimated Hrs Per Day: 1.5 hours per day Agreement: Yes Rehab Potential: Good Time/GCodes Start Time: 07:45 Stop Time: 09:00 Total Time Billed (hr/min): 75 Billed Treatment Time 1 visit-ADL 5 (75 min) AMANUEL MATHEWS Apr 17, 2018 11:09
--- NOTE | 2018-04-17 12:01 | Physical Therapy Daily Note ---
PT Daily Note-Current Subjective Pt. states she has had a rough morning. "The midline they started yesterday is not working, they are coming back some time today to fix it' Pain Numeric Pain Scale: 3 Location: Left Location Body Site: Chest (ribs) Pain Description: Ache Mental Status Patient Orientation: Normal For Age Transfers Therapy Code Descriptions/Definitions Functional [place] Measure: 0=Not Assessed/NA 4=Minimal Assistance 1=Total Assistance 5=Supervision or Setup 2=Maximal Assistance 6=Modified [place] 3=Moderate Assistance 7=Complete [place] Therapy Quality Codes: 6 Independent with activity with or without an assistive device 5 Patient requires set up or clean up by helper. Patient completes activity by themselves 4 Supervision or touching assist (CGA). [place] provide cues , steadying assist 3 The helper provides less than half the effort to complete the activity 2 The helper provides more than half the effort to complete the activity 1 Dependent. The helper does all the effort to complete an activity 7 Patient refused to complete or attempt activity 9 The patient did not perform the activity before the current illness or injury 88 Not attempted due to Medical conditions or safety concerns Transfers (B, C, W/C) (FIM): 5 Scootin Rollin Supine to/from Sit: 5 Sit to/from Stand: 5 Bed to/from Chair: 5 Weight Bearing Right Lower Extremity: Right Weight Bearing/Tolerated Left Lower Extremity: Left Weight Bearing/Tolerated Gait Training Does the Patient Walk?: Yes Gait (FIM): 5 Distance (FIM): 3=150 ft (165x2) Gait Level of Assist: 5 Gait Persons Needed: 1 Gait Assistive Device: FWW slow, flexed over FWW Stair Training Stair Training: Handrails/: uses walker Stairs (FIM): 2 #of Steps: 4 Stairs: Pattern: Step to Level of Assist: 4 small "pink" step with FWW CGA, good sequence etc Exercises Seated Therapy Exercises: Ankle pumps, Sit to stand, Long arc quads, Hip flexion, Hip abd/add Seated Reps: 10 NuStep Minutes: 12 NuStep Workload: 2 Treatments toileted managing cleaning idep, min to mod assist clothing as pt. was fatiguing Assessment Current Status: Good Progress improved funct, gives full effort PT Short Term Goals Short Term Goals Time Frame: Apr 20, 2018 Transfers (B,C,W/C) (FIM): 4 Gait (FIM): 2 Distance (FIM): 0=639-30 ft Gait Assistive Device: FWW Wheelchair Distance: 100' PT Collar Pointer Goals Collar Pointer Goals PT Collar Pointer Goals Time Frame: May 04, 2018 Transfers (B,C,W/C) (FIM): 6 Sit to Lying (QC): 6 Lying-Sitting on Side/Bed(QC): 6 Sit to Stand (QC): 6 Rollin Roll Left to Right (QC): 6 Chair/Beg-el-Cupoj Xfer(QC): 6 Car Transfer (QC): 5 Does the Patient Walk: Yes Gait (FIM): 5 (household) Gait distance (FIM): 4=616-94 ft Walk 10 feet (QC): 6 Walk 10ft-Uneven Surface(QC): 6 Walk 50ft with 2 Turns (QC): 6 Walk 150 ft (QC): 88 Gait Assistive Device: FWW Stairs (FIM): 5 (household) # of Steps: 4 1 Step (curb) (QC): 6 4 Steps (QC): 6 12 Steps (QC): 88 Picking up an Object (QC): 88 PT Plan Treatment/Plan Treatment Plan: Continue Plan of Care Treatment Plan: Bed Mobility, Education, Functional Activity Ricardo, Functional Strength, Group Therapy, Gait, Safety, Therapeutic Exercise, Transfers Treatment Duration: May 04, 2018 Frequency: At least 5 of 7 days/Wk (IRF) Estimated Hrs Per Day: 1.5 hours per day Patient and/or Family Agrees t: Yes Safety Risks/Education Patient Education: Gait Training, Transfer Techniques, Steps, Correct Positioning, Safety Issues Teaching Recipient: Patient Teaching Methods: Demonstration Response to Teaching: Verbalize Understanding, Return Demonstration Time/GCodes Time In: 1100 Time Out: 1200 Total Billed Treatment Time: 60 Total Billed Treatment 1,GT20m,EX25m,FA15m G Codes Necessary: GORDON Ernst PTA Apr 17, 2018 12:01
[2018-04-17] MEDS: MINOCYCLINE 100 MG TABLET (NON-FORMULARY) PO SCH ×2 (12:03→20:41)
--- NOTE | 2018-04-17 14:41 | Therapy Group Daily Note ---
Therapy Daily Group Note Patient Education Topic Energy Cons Exercises LE Seated Exercise, UE Exercise Session Ratio (pt:therapist): 3:1 Goal of Session: Energy Conservation Tech., UE/LE Strengthing Greater understanding of energy conservation techniques and knowing when to put them into action Goal Met for this Session: Yes Pt Benefit of Group: Contributions to Others, F/U Use of Strategies @Home, Increased Functional Strength, Recognition of Peers, Socialization Pt. participated in group PT IT session. Pt. ambulated to and from with FWW SBA. Pt. was social introducing herself and sharing a mischievious story from her youth. Energy conservation was education topic with focus today on sit to stand techniques with seat height variations using cushions, platforms under recliner at home or use of lift recline chair. Lift chair demonstration was done showing ways to do exercise in sup and sit as well as increased indep for managing movement in chair. Pts all participated in seated U&L extremity exercises. returned to her room, in bed with mod assist LEs. Gonzalez at hand Start Time: 13:00 Stop Time: 14:20 Total Billed Treatment Time: 80 Total Billed Treatment 1,GRP GORDON CLARK NEW ORDER CLERK Apr 17, 2018 14:41
[2018-04-17] MEDS: BUMETANIDE 1 MG (BUMEX) TAB PO SCH (15:30)
[2018-04-17 16:40] LABS: BILIRUBIN,URINE NEGATIVE (NEGATIVE); CLARITY,URINE VERY CLOUDY; COLOR,URINE YELLOW; GLUCOSE, URINE (UA) NEGATIVE (NEGATIVE); KETONES,URINE NEGATIVE (NEGATIVE); LEUKOCYTE ESTERASE ,URINE 2+ (NEGATIVE); NITRITE,URINE POSITIVE (NEGATIVE); PH,URINE 7 (5-9); PROTEIN,URINE 1+ (NEGATIVE); UROBILINOGEN,URINE NORMAL (NORMAL)
[2018-04-17] MEDS: warFARin 5 MG (COUMADIN) TAB PO SCH (16:47)
[2018-04-17] MEDS: warFARin 3 MG (COUMADIN) TAB PO SCH (16:47)
[2018-04-17 17:05] LABS: BACTERIA,URINE LARGE /HPF
[2018-04-17 17:46] VITALS: BP 133/79
--- NOTE | 2018-04-17 18:07 | NUR ---
Catherine is currently inpatient on ARU following a fall in which she sustained multiple rib fx's. Patient is A&OX4 and reports pain throughout the day controlled by pain medication. Catherine has been experiencing urinary frequency and Dr. Santana ordered a UAIF to be sent to lab, currently culture is pending. Catherine also had a Midline in her LUE that was unable to be flushed, IV therapy in and assessed and replaced midline in LUE. No issues noted with current midline, a restricted extremity band was applied. This nurse will continue to monitor patient.
--- NOTE | 2018-04-17 19:08 | NUR ---
bedside report recieved from VALERIE PEREZ, assume care of pt
--- NOTE | 2018-04-17 20:35 | NUR ---
up to commode with 1 person assist & walker, then back to bed, scheduled lortam 10 1 tab po given, rates pain 6/10 on numeric scale, took only 1 Senokot tab, assessments & interventions completed, see assessments & interventions
[2018-04-17] MEDS: LIDOCAINE PATCH REMOVAL TP SCH (20:56)
--- NOTE | 2018-04-17 21:20 | NUR ---
rates pain level 3/10 on numeric scale
[2018-04-17] MEDS: MELATONIN 3 MG TABLET PO PRN (22:58)
--- NOTE | 2018-04-17 23:01 | NUR ---
melatonin 3mg po given for sleep
--- NOTE | 2018-04-18 00:30 | NUR ---
scheduled lortab 10 1 given, pain level 6/10 on numeric scale
[2018-04-18] MEDS: HYDROcodone/APAP 10 MG/325 MG (LORTAB) TAB PO SCH ×6 (00:33→20:40)
--- NOTE | 2018-04-18 01:05 | NUR ---
resting quietly in bed, pain level 0/10 on flacc scale
--- NOTE | 2018-04-18 04:30 | NUR ---
scheduled lortab 10 1 tab po given, pain 6/10 on numeric scale
[2018-04-18 05:10] VITALS: BP 94/58
--- NOTE | 2018-04-18 05:12 | NUR ---
resting quietly in bed, pain level 0/10 on flacc scale
--- NOTE | 2018-04-18 05:20 | NUR ---
WEEKLY REPORT I: This is a clinic Pt of Dr. Vasquez that I have taken care of on two separate occasions in inpatient rehab, most recently was a hip fracture that is s/p left rib fractures with small pneumothorax cared for at [facility] since last Friday. She also sustained a sternal fracture during the fall. Pt is using IS. Pain is controlled. Coumadin was restarted on 04/01/18. She did have subcutaneous emphysema on the left side from the rib fractures but now resolved. Had episode of sepsis of unknown source 3 weeks ago and that was managed conservatively. BM yesterday since she had not gone for entire hospital stay at [place]. patient has been 1-2 person assist to commode & chair with walker she has been fairly regular with her bowels on Senokot 2 tabs po bid, she does have issues with urinary incontinence & wears a pad to help with this, patient is on general diet & is able to order foods & feed self. patient has wound to lt ankle area & wound team sees pt for this she also has dark colored lower legs. pt has midline to rt upper arm for Venofer infusions, pt will be dismissed to home on 04/24/18
--- NOTE | 2018-04-18 06:20 | NUR ---
up to commode then to chair with 2 people assist & walker
[2018-04-18] MEDS: KCL 20 MEQ TAB (K-DUR) PO SCH (06:55)
--- NOTE | 2018-04-18 07:17 | NUR ---
bedside report given to FEDERICA PEREZ
[2018-04-18] MEDS: PRAMIPEXOLE 0.125 MG (MIRAPEX) TABLET PO SCH ×2 (08:15→20:41)
[2018-04-18] MEDS: SENNA W/DOCUSATE (SENOKOT S) TABLET PO SCH ×2 (08:15→20:41)
[2018-04-18] MEDS: GABAPENTIN 300 MG (NEURONTIN) CAP PO SCH ×4 (08:15→20:41)
[2018-04-18] MEDS: predniSONE 5 MG TAB PO SCH (08:15)
[2018-04-18] MEDS: OXYBUTYNIN (DITROPAN) 5 MG TAB PO SCH ×3 (08:16→20:41)
[2018-04-18] MEDS: MINOCYCLINE 100 MG TABLET (NON-FORMULARY) PO SCH ×2 (08:19→20:42)
[2018-04-18] MEDS: LIDOCAINE 4% (SALONPAS) PATCH TOP SCH (10:59)
--- NOTE | 2018-04-18 11:00 | NUR ---
DR. MARIN HERE TO SEE PATIENT. INFORMED OF COMPLAINTS OF BURNING AND FREQUENCY WITH VOIDING. UA DONE YESTERDAY. STARTED ON PYRIDIUM. ALSO COMPLAINS CLARITIN NOT RELIEVING HEAD CONGESTION AND SUDAFED ADDED TO REGIMEN.
[2018-04-18] MEDS: BUMETANIDE 1 MG (BUMEX) TAB PO SCH (11:02)
[2018-04-18] MEDS: SILVER SULFADIAZINE 50 GM CREAM TOP SCH (11:02)
--- NOTE | 2018-04-18 11:15 | PM&R Progress Note ---
Subjective HPI/CC On Admission Date Seen by Provider: Apr 18, 2018 Time Seen by Provider: 11:00 Chief complaint: Debility HPI: This is a clinic Pt of Dr. Vasquez that I have taken care of on two separate occasions in inpatient rehab, most recently was a hip fracture that is s/p left rib fractures with small pneumothorax cared for at [facility] since last Friday. She also sustained a sternal fracture during the fall. Pt is using IS. Pain is controlled. Coumadin was restarted on 04/01/18. She did have subcutaneous emphysema on the left side from the rib fractures but now resolved. Checking CXR today and will check labs including INR tomorrow Had episode of sepsis of unknown source 3 weeks ago and that was managed conservatively. BM yesterday since she had not gone for entire hospital stay at [place]. Subjective/Events-last exam Pain medications given on schedule is helping her a great deal Ambulating slow but doing well and per dissipating in all therapies Motivated to get better Midline was replaced and now giving iron infusions without difficulty Bowels are moving Using incentive spirometer Discharge plan for late next week Review of Systems General: Fatigue Objective Exam Vital Signs Vital Signs Date Time Temp Pulse Resp B/P (MAP) Pulse Ox O2 Delivery O2 Flow Rate FiO2 04/18/18 08:00 Room Air 04/18/18 06:00 2.00 04/18/18 05:10 99.5 50 16 94/58 (70) 95 Capillary Refill : Less Than 3 Seconds General Appearance: No Apparent Distress, WD/WN, Chronically ill, Obese HEENT: PERRL/EOMI, Normal ENT Inspection, Pharynx Normal, Moist Mucous Membranes Neck: Full Range of Motion, Normal Inspection, Non Tender, Supple Respiratory: Lungs Clear, Normal Breath Sounds, No Accessory Muscle Use, No Respiratory Distress, Crackles (LLL) Cardiovascular: Regular Rate, Rhythm, No Edema, No Gallop, No JVD, No Murmur Gastrointestinal: Normal Bowel Sounds, No Organomegaly, No Pulsatile Mass, Non Tender, Soft Rectal: Normal Exam Back: Normal Inspection, No CVA Tenderness, No Vertebral Tenderness Extremity: Normal Capillary Refill, Normal Inspection, Normal Range of Motion, Non Tender, No Calf Tenderness, No Pedal Edema, Other (venous stais changes chronic and severe) Neurologic/Psychiatric: Alert, Oriented x3, No Motor/Sensory Deficits, Normal Mood/Affect, 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 Assessment/Plan Assessment and Plan Assess & Plan/Chief Complaint Assessment: Debility Falls Left PTX Left rib fractures Left sided subcutaneous air Coumadin treatment DVT hx VINCE Night time hypoxia s/p constipation Severe venous stasis dermatitis lower legs Left lateral leg wound consulting wound care Iron deficiency s/p iron infusions 6 weeks ago and low again so will repeat the iron infusions again and will complete prior to DC late next week Recent sepsis episode managed at [facility] [place], [place] 2 weeks prior to fall Plan: Reviewed CXR Checked labs PT/OT Fall prevention Monitor INR Maintain the increased Fentanyl patch Lortab Q4hrs scheduled INR prn but today stable at 2.2 Venofer infusions (1) Debility (2) Venous stasis dermatitis of both lower extremities (3) Nocturnal hypoxia (4) Anticoagulation goal of INR 2.5 to 3.5 (5) History of fracture of left hip (6) VINCE on CPAP (7) Pneumothorax on left (8) Ribs, multiple fractures (9) Subcutaneous air (10) Overactive bladder (11) Falls (12) DVT (deep venous thrombosis) (13) Osteoarthritis (14) Edema (15) Anemia (16) Constipation (17) Knee joint replacement status Clinical Quality Measures DVT/VTE Risk/Contraindication: Risk Factor Score Per Nursin RFS Level Per Nursing on Admit: 4+=Very High DARON MARIN DO Apr 18, 2018 11:14
[2018-04-18] MEDS: PSEUDOEPHEDRINE HCL 30 MG (SUDAFED) TAB PO PRN (11:50)
[2018-04-18] MEDS: LORATADINE (CLARITIN) 10 MG TAB PO SCH (11:50)
--- NOTE | 2018-04-18 12:02 | Physical Therapy Daily Note ---
PT Daily Note-Current Subjective Pt eager to get up and do some exercise. Mental Status Patient Orientation: Person, Place, Time, Situation Transfers Therapy Code Descriptions/Definitions Functional [place] Measure: 0=Not Assessed/NA 4=Minimal Assistance 1=Total Assistance 5=Supervision or Setup 2=Maximal Assistance 6=Modified [place] 3=Moderate Assistance 7=Complete [place] Therapy Quality Codes: 6 Independent with activity with or without an assistive device 5 Patient requires set up or clean up by helper. Patient completes activity by themselves 4 Supervision or touching assist (CGA). [place] provide cues , steadying assist 3 The helper provides less than half the effort to complete the activity 2 The helper provides more than half the effort to complete the activity 1 Dependent. The helper does all the effort to complete an activity 7 Patient refused to complete or attempt activity 9 The patient did not perform the activity before the current illness or injury 88 Not attempted due to Medical conditions or safety concerns Transfers (B, C, W/C) (FIM): 5 Supine to/from Sit: 5 Sit to/from Stand: 5 Weight Bearing Right Lower Extremity: Right Weight Bearing/Tolerated Left Lower Extremity: Left Weight Bearing/Tolerated Gait Training Does the Patient Walk?: Yes Gait (FIM): 5 Distance (FIM): 3=150 ft Distance: 176ft Gait Assistive Device: FWW Wheelchair Training Does the Pt Use a Wheelchair?: No Exercises NuStep Minutes: 18 NuStep Workload: 5 Assessment Current Status: Good Progress Better tolerance to transfers and good stability throughout gait. PT Short Term Goals Short Term Goals Time Frame: Apr 20, 2018 Transfers (B,C,W/C) (FIM): 4 Gait (FIM): 2 Distance (FIM): 1=826-56 ft Gait Assistive Device: FWW Wheelchair Distance: 100' PT Patient Financial Counselor Goals Jail Goals PT Jail Goals Time Frame: May 04, 2018 Transfers (B,C,W/C) (FIM): 6 Sit to Lying (QC): 6 Lying-Sitting on Side/Bed(QC): 6 Sit to Stand (QC): 6 Rollin Roll Left to Right (QC): 6 Chair/Xzi-yw-Evoyh Xfer(QC): 6 Car Transfer (QC): 5 Does the Patient Walk: Yes Gait (FIM): 5 (household) Gait distance (FIM): 8=973-22 ft Walk 10 feet (QC): 6 Walk 10ft-Uneven Surface(QC): 6 Walk 50ft with 2 Turns (QC): 6 Walk 150 ft (QC): 88 Gait Assistive Device: FWW Stairs (FIM): 5 (household) # of Steps: 4 1 Step (curb) (QC): 6 4 Steps (QC): 6 12 Steps (QC): 88 Picking up an Object (QC): 88 PT Plan Treatment/Plan Treatment Plan: Continue Plan of Care Treatment Plan: Bed Mobility, Education, Functional Activity Ricardo, Functional Strength, Group Therapy, Gait, Safety, Therapeutic Exercise, Transfers Treatment Duration: May 04, 2018 Frequency: At least 5 of 7 days/Wk (IRF) Estimated Hrs Per Day: 1.5 hours per day Patient and/or Family Agrees t: Yes Time/GCodes Time In: 1100 Time Out: 1131 Total Billed Treatment Time: 31 Total Billed Treatment 1, gt13, ex 18 MORRO ULLOA PT Apr 18, 2018 12:01
[2018-04-18] MEDS: PHENAZOPYRIDINE 100 MG (PYRIDIUM) TABLET PO SCH ×2 (12:40→18:39)
--- NOTE | 2018-04-18 17:00 | NUR ---
INCONTINENCY AND FREQUENCY IS WORSE WITH UTI. HAS BEEN UP FREQUENTLY TODAY.
[2018-04-18 18:00] VITALS: BP 156/83
[2018-04-18] MEDS: warFARin 3 MG (COUMADIN) TAB PO SCH (18:39)
[2018-04-18] MEDS: warFARin 5 MG (COUMADIN) TAB PO SCH (18:39)
--- NOTE | 2018-04-18 19:09 | NUR ---
bedside report received, assume care of pt
--- NOTE | 2018-04-18 20:30 | NUR ---
scheduled lortab 10 1 tab po given, rates pain at 6/10 on numeric scale, assessments & interventions completed, see assessments & interventions, back to bed with 1 person assist & walker
[2018-04-18] MEDS: LIDOCAINE PATCH REMOVAL TP SCH (20:41)
[2018-04-18] MEDS: MELATONIN 3 MG TABLET PO PRN (20:44)
--- NOTE | 2018-04-18 21:10 | NUR ---
rates pain at 3/10 on numeric scale
--- NOTE | 2018-04-19 00:46 | NUR ---
scheduled lortab 10 1 tab po given rates pain at 6/10 on numeric scale
[2018-04-19] MEDS: HYDROcodone/APAP 10 MG/325 MG (LORTAB) TAB PO SCH ×6 (00:57→20:17)
--- NOTE | 2018-04-19 01:16 | NUR ---
resting quietly in bed, pain level 0/10 on flacc scale
--- NOTE | 2018-04-19 02:00 | NUR ---
time adjusted for daylight savings time
--- NOTE | 2018-04-19 04:37 | NUR ---
scheduled lortab 10 1 tab po, rates pain at 6/10 on numeric scale
--- NOTE | 2018-04-19 05:15 | NUR ---
resting quietly in bed, pain level 0/10 on flacc scale
[2018-04-19 06:00] VITALS: BP 106/64
--- NOTE | 2018-04-19 06:38 | NUR ---
up to commode then to chair
[2018-04-19] MEDS: KCL 20 MEQ TAB (K-DUR) PO SCH (07:08)
--- NOTE | 2018-04-19 07:17 | NUR ---
bedside report given to FEDERICA PEREZ
[2018-04-19] MEDS: PHENAZOPYRIDINE 100 MG (PYRIDIUM) TABLET PO SCH ×3 (08:42→18:15)
[2018-04-19] MEDS: PRAMIPEXOLE 0.125 MG (MIRAPEX) TABLET PO SCH ×2 (08:42→20:17)
[2018-04-19] MEDS: LORATADINE (CLARITIN) 10 MG TAB PO SCH (08:42)
[2018-04-19] MEDS: GABAPENTIN 300 MG (NEURONTIN) CAP PO SCH ×4 (08:42→20:17)
[2018-04-19] MEDS: OXYBUTYNIN (DITROPAN) 5 MG TAB PO SCH ×3 (08:42→20:17)
[2018-04-19] MEDS: MINOCYCLINE 100 MG TABLET (NON-FORMULARY) PO SCH ×2 (08:43→20:18)
[2018-04-19] MEDS: predniSONE 5 MG TAB PO SCH (08:43)
[2018-04-19] MEDS: PSEUDOEPHEDRINE HCL 30 MG (SUDAFED) TAB PO PRN ×2 (08:48→17:13)
[2018-04-19] MEDS: SENNA W/DOCUSATE (SENOKOT S) TABLET PO SCH ×2 (08:48→20:17)
[2018-04-19] MEDS: IRON SUCROSE 200 MG/10 ML (VENOFER) VIAL IV SCH (08:49)
--- NOTE | 2018-04-19 09:00 | NUR ---
STATES HEAD CONGESTION IS IMPROVED SINCE SUDAFED STARTED AND URINARY BURNING BETTER WITH PYRIDIUM.
[2018-04-19] MEDS: fentaNYL PATCH 75 MCG (DURAGESIC) TD SCH (10:48)
[2018-04-19] MEDS: LIDOCAINE 4% (SALONPAS) PATCH TOP SCH (10:48)
[2018-04-19] MEDS: SILVER SULFADIAZINE 50 GM CREAM TOP SCH (10:52)
[2018-04-19] MEDS: FENTANYL PATCH REMOVAL TP SCH (10:52)
--- NOTE | 2018-04-19 11:43 | PM&R Progress Note ---
Subjective HPI/CC On Admission Date Seen by Provider: Apr 19, 2018 Time Seen by Provider: 11:30 Chief complaint: Debility HPI: This is a clinic Pt of Dr. Vasquez that I have taken care of on two separate occasions in inpatient rehab, most recently was a hip fracture that is s/p left rib fractures with small pneumothorax cared for at [facility] since last Friday. She also sustained a sternal fracture during the fall. Pt is using IS. Pain is controlled. Coumadin was restarted on 04/01/18. She did have subcutaneous emphysema on the left side from the rib fractures but now resolved. Checking CXR today and will check labs including INR tomorrow Had episode of sepsis of unknown source 3 weeks ago and that was managed conservatively. BM yesterday since she had not gone for entire hospital stay at [facility]. Subjective/Events-last exam Pain medications given on schedule is going well for her Ambulating slow but doing well and participating in all therapies Motivated to get better Midline was replaced and functioning well Bowels are moving now after meds yesterday Using incentive spirometer Discharge plan for late next week Sudafed helping UCx pending for sensitivity and only 25wbc's so will await until tomorrow final results before any abx contemplated Pyridium is helping her a great deal in the meantime Review of Systems General: Fatigue Genitourinary: Dysuria, Frequency Objective Exam Vital Signs Vital Signs Date Time Temp Pulse Resp B/P (MAP) Pulse Ox O2 Delivery O2 Flow Rate FiO2 04/19/18 07:26 Nasal Cannula 2.00 04/19/18 06:00 98.9 58 18 106/64 (78) 94 Capillary Refill : Less Than 3 Seconds General Appearance: No Apparent Distress, WD/WN, Chronically ill, Obese HEENT: PERRL/EOMI, Normal ENT Inspection, Pharynx Normal, Moist Mucous Membranes Neck: Full Range of Motion, Normal Inspection, Non Tender, Supple Respiratory: Lungs Clear, Normal Breath Sounds, No Accessory Muscle Use, No Respiratory Distress, Crackles (LLL) Cardiovascular: Regular Rate, Rhythm, No Edema, No Gallop, No JVD, No Murmur Gastrointestinal: Normal Bowel Sounds, No Organomegaly, No Pulsatile Mass, Non Tender, Soft Rectal: Normal Exam Back: Normal Inspection, No CVA Tenderness, No Vertebral Tenderness Extremity: Normal Capillary Refill, Normal Inspection, Normal Range of Motion, Non Tender, No Calf Tenderness, No Pedal Edema, Other (venous stais changes chronic and severe) Neurologic/Psychiatric: Alert, Oriented x3, No Motor/Sensory Deficits, Normal Mood/Affect, 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 Assessment/Plan Assessment and Plan Assess & Plan/Chief Complaint Assessment: Debility Falls Left PTX Left rib fractures Left sided subcutaneous air Coumadin treatment DVT hx VINCE Night time hypoxia s/p constipation Severe venous stasis dermatitis lower legs Left lateral leg wound consulting wound care Iron deficiency s/p iron infusions 6 weeks ago and low again so will repeat the iron infusions again and will complete prior to DC late next week Recent sepsis episode managed at [facility] 2 weeks prior to fall Urinary frequency UCx final result pending Plan: PT/OT Fall prevention Monitor INR prn Maintain the increased Fentanyl patch Lortab Q4hrs scheduled Venofer infusions Sudafed Pyridium in the meantime UCx pending (1) Debility (2) Venous stasis dermatitis of both lower extremities (3) Nocturnal hypoxia (4) Anticoagulation goal of INR 2.5 to 3.5 (5) History of fracture of left hip (6) VINCE on CPAP (7) Pneumothorax on left (8) Ribs, multiple fractures (9) Subcutaneous air (10) Overactive bladder (11) Falls (12) DVT (deep venous thrombosis) (13) Osteoarthritis (14) Edema (15) Anemia (16) Constipation (17) Knee joint replacement status Clinical Quality Measures DVT/VTE Risk/Contraindication: Risk Factor Score Per Nursin RFS Level Per Nursing on Admit: 4+=Very High DARON MARIN DO Apr 19, 2018 11:43
--- NOTE | 2018-04-19 13:00 | NUR ---
ENJOYING BIRTHDAY CELEBRATION WITH MANY FAMILY MEMBERS HERE.
[2018-04-19] MEDS: BUMETANIDE 1 MG (BUMEX) TAB PO SCH (14:38)
--- NOTE | 2018-04-19 15:00 | NUR ---
REFUSED BUMEX TODAY. IS TIRED AFTER BIRTHDAY CELEBRATION AND WANTS TO NAP.
[2018-04-19 17:42] VITALS: BP 148/83
[2018-04-19] MEDS: warFARin 5 MG (COUMADIN) TAB PO SCH (18:15)
[2018-04-19] MEDS: warFARin 3 MG (COUMADIN) TAB PO SCH (18:15)
[2018-04-19] MEDS: LIDOCAINE PATCH REMOVAL TP SCH (20:18)
[2018-04-20] MEDS: HYDROcodone/APAP 10 MG/325 MG (LORTAB) TAB PO SCH ×7 (00:23→23:44)
[2018-04-20] MEDS: MELATONIN 3 MG TABLET PO PRN ×2 (03:08→22:45)
[2018-04-20 06:00] VITALS: BP 134/75
[2018-04-20] MEDS: KCL 20 MEQ TAB (K-DUR) PO SCH (06:20)
[2018-04-20] MEDS: PRAMIPEXOLE 0.125 MG (MIRAPEX) TABLET PO SCH ×2 (08:43→20:23)
[2018-04-20] MEDS: GABAPENTIN 300 MG (NEURONTIN) CAP PO SCH ×4 (08:43→20:23)
[2018-04-20] MEDS: OXYBUTYNIN (DITROPAN) 5 MG TAB PO SCH ×3 (08:43→20:24)
[2018-04-20] MEDS: predniSONE 5 MG TAB PO SCH (08:43)
[2018-04-20] MEDS: PHENAZOPYRIDINE 100 MG (PYRIDIUM) TABLET PO SCH ×3 (08:43→17:52)
[2018-04-20] MEDS: LORATADINE (CLARITIN) 10 MG TAB PO SCH (08:43)
[2018-04-20] MEDS: PSEUDOEPHEDRINE HCL 30 MG (SUDAFED) TAB PO PRN (08:45)
[2018-04-20] MEDS: SENNA W/DOCUSATE (SENOKOT S) TABLET PO SCH ×2 (08:45→20:23)
[2018-04-20] MEDS: MINOCYCLINE 100 MG TABLET (NON-FORMULARY) PO SCH ×2 (08:50→20:26)
--- NOTE | 2018-04-20 09:30 | Occupational Ther Daily Note ---
OT Current Status-Daily Note Subjective Pt sleeping in bed, woke to name. Pt agrees to therapy. No c/o pain at this time. Mental Status/Objective Patient Orientation: Person, Place, Time, Situation Therapy Code Descriptions/Definitions Functional [place] Measure: 0=Not Assessed/NA 4=Minimal Assistance 1=Total Assistance 5=Supervision or Setup 2=Maximal Assistance 6=Modified [place] 3=Moderate Assistance 7=Complete [place] Attachments: Central Line ADL-Treatment Pt stated that she had gotten to sleep at 0300am. Declined shower today. Sponge bath completed. Pt takes increased time due to decreased mobility and activity tolerance. After therapy, pt sitting in recliner with call light/ phone in reach. Therapy Code Descriptions/Definitions Functional [place] Measure: 0=Not Assessed/NA 4=Minimal Assistance 1=Total Assistance 5=Supervision or Setup 2=Maximal Assistance 6=Modified [place] 3=Moderate Assistance 7=Complete [place] Therapy Quality Codes: 6 Independent with activity with or without an assistive device 5 Patient requires set up or clean up by helper. Patient completes activity by themselves 4 Supervision or touching assist (CGA). [place] provide cues , steadying assist 3 The helper provides less than half the effort to complete the activity 2 The helper provides more than half the effort to complete the activity 1 Dependent. The helper does all the effort to complete an activity 7 Patient refused to complete or attempt activity 9 The patient did not perform the activity before the current illness or injury 88 Not attempted due to Medical conditions or safety concerns Grooming (FIM): 6 (Sitting at sink, pt able to complete by self.) Oral Hygiene (QC): 6 Bathing (FIM): 5 (SBA for safety. Completed using AE for sponge bath and cleansing clothes.) Bathing Location: L Arm, R Arm, L Upper Leg, R Upper Leg, L Lower Leg ( including foot), R Lower Leg (including foot), Chest, Abdomen, Buttocks, Perineal Area Shower/Bathe Self (QC): 4 Upper Body (FIM): 4 (Assist to lift over head then pt able to complete all other steps.) Upper Body Dressing (QC): 3 Lower Body Dressing (FIM): 4 (Completes with AE. Assist to hike over buttocks. ) Lower Body Dressing (QC): 3 Toileting (FIM): 4 (Cleanses self with AE. Assist to hike pants over hips.) Toileting Hygiene (QC): 3 Transfers (B, C, W/C) (FIM): 4 (CGA from low service. SBA with high service.) Toilet/Commode Transfer (FIM): 5 (Using BSC, grabbar and FWW completes with supervision.) Toilet Transfer (QC): 4 OT Short Term Goals Short Term Goals Time Frame: Apr 13, 2018 Eating(FIM): 5 Grooming(FIM): 5 Bathing(FIM): 4 Upper Body Dressing(FIM): 4 Lower Body Dressing(FIM): 3 Toileting(FIM): 4 Transfers (B,C,W/C) (FIM): 4 Toilet/Commode Transfer(FIM): 3 Shower Transfer(FIM): 3 Additional Short Term Goals: 1-Demonstrate ADL Tasks, 2-Verbalize Understanding , 3-ImproveStrength/Ricardo 1=Demonstrate adherence to instructed precautions during ADL tasks. 2=Patient will verbalize/demonstrate understanding of assistive devices/ modifications for ADL. 3=Patient will improve strength/tolerance for activity to enable patient to perform ADL's. OT Administrative Executive Goals Long-Term Goals Time Frame: Apr 20, 2018 Eating (FIM): 7 Eating (QC): 6 Groomin Oral Hygiene (QC): 6 Bathing(FIM): 5 Shower/Bathe Self (QC): 5 Upper Body Dressing(FIM): 5 Upper Body Dressing (QC): 5 Lower Body Dressing(FIM): 5 Lower Body Dressing (QC): 5 On/Off Footwear (QC): 5 Toileting(FIM): 6 Toileting Hygiene (QC): 6 Transfers (B,C,W/C) (FIM): 6 Toilet/Commode Transfer(FIM): 6 Toilet/Commode Transfer (QC): 6 Shower Transfer(FIM): 5 Additional Goals: 1-Demonstrate ADL Tasks, 2-Verbalize Understanding, 3- ImproveStrength/Ricardo 1=Demonstrate adherence to instructed precautions during ADL tasks. 2=Patient will verbalize/demonstrate understanding of assistive devices/ modifications for ADL. 3=Patient will improve strength/tolerance for activity to enable patient to perform ADL's. OT Education/Plan Discharge Recommendations Plan/Recommendations: Continue POC Treatment Plan/Plan of Care Patient would benefit from OT for education, treatment and training to promote independence in ADL's, mobility, safety and/or upper extremity function for ADL' s. Plan of Care: ADL Retraining, Functional Mobility, Group Exercise/Act as Ind, UE Funct Exercise/Act Treatment Duration: Apr 20, 2018 Frequency: At least 5 of 7 days/Wk (IRF) Estimated Hrs Per Day: 1.5 hours per day Agreement: Yes Rehab Potential: Good Time/GCodes Start Time: 07:30 Stop Time: 09:00 Total Time Billed (hr/min): 90 Billed Treatment Time 1 visit-ADL 6 (90 min) AMANUEL MATHEWS Apr 20, 2018 09:29
--- NOTE | 2018-04-20 09:31 | PM&R Progress Note ---
Subjective HPI/CC On Admission Date Seen by Provider: Apr 20, 2018 Time Seen by Provider: 09:30 Chief complaint: Debility HPI: This is a clinic Pt of Dr. Vasquez that I have taken care of on two separate occasions in inpatient rehab, most recently was a hip fracture that is s/p left rib fractures with small pneumothorax cared for at [facility] since last Friday. She also sustained a sternal fracture during the fall. Pt is using IS. Pain is controlled. Coumadin was restarted on 04/01/18. She did have subcutaneous emphysema on the left side from the rib fractures but now resolved. Checking CXR today and will check labs including INR tomorrow Had episode of sepsis of unknown source 3 weeks ago and that was managed conservatively. BM yesterday since she had not gone for entire hospital stay at [place]. Subjective/Events-last exam Pain medications given on schedule continues really helping her Ambulating slow but doing well and participating in all therapies Motivated to get better Midline was replaced and functioning well today Bowels are moving after meds given on regular basis Using incentive spirometer Discharge plan for late this week Sudafed helping UCx reveals ESBL so started on Meropenem Pyridium is helping her a great deal in the meantime Review of Systems General: Fatigue Musculoskeletal: leg pain Objective Exam Vital Signs Vital Signs Date Time Temp Pulse Resp B/P (MAP) Pulse Ox O2 Delivery O2 Flow Rate FiO2 04/20/18 08:00 Room Air 04/20/18 06:00 97.3 70 18 134/75 (94) 95 04/19/18 07:26 2.00 Capillary Refill : Less Than 3 Seconds General Appearance: No Apparent Distress, WD/WN, Chronically ill, Obese HEENT: PERRL/EOMI, Normal ENT Inspection, Pharynx Normal, Moist Mucous Membranes Neck: Full Range of Motion, Normal Inspection, Non Tender, Supple Respiratory: Lungs Clear, Normal Breath Sounds, No Accessory Muscle Use, No Respiratory Distress, Crackles (LLL) Cardiovascular: Regular Rate, Rhythm, No Edema, No Gallop, No JVD, No Murmur Gastrointestinal: Normal Bowel Sounds, No Organomegaly, No Pulsatile Mass, Non Tender, Soft Rectal: Normal Exam Back: Normal Inspection, No CVA Tenderness, No Vertebral Tenderness Extremity: Normal Capillary Refill, Normal Inspection, Normal Range of Motion, Non Tender, No Calf Tenderness, No Pedal Edema, Other (venous stais changes chronic and severe) Neurologic/Psychiatric: Alert, Oriented x3, No Motor/Sensory Deficits, Normal Mood/Affect, pediatric physical therapy assistant II-XII Norm as Tested, Abnormal Gait, Motor Weakness ( generalized) Skin: Normal Color, Warm/Dry, Other (wound left lateral leg, severe varicosities with venous stasis dermatitis) Lymphatic: No Adenopathy Results/Procedures Lab Patient resulted labs reviewed. Assessment/Plan Assessment and Plan Assess & Plan/Chief Complaint Assessment: Debility Falls Left PTX Left rib fractures Left sided subcutaneous air Coumadin treatment DVT hx IVNCE Night time hypoxia s/p constipation Severe venous stasis dermatitis lower legs Left lateral leg wound consulting wound care Iron deficiency s/p iron infusions 6 weeks ago and low again so will repeat the iron infusions again and will complete prior to DC late next week Recent sepsis episode managed at [facility] 2 weeks prior to fall UTI ESBL placed on Meropenem 04/20/18 Plan: PT/OT Fall prevention Monitor INR prn Maintain the increased Fentanyl patch Lortab Q4hrs scheduled Venofer infusions Sudafed Pyridium in the meantime Meropenem (1) Debility (2) Venous stasis dermatitis of both lower extremities (3) Nocturnal hypoxia (4) Anticoagulation goal of INR 2.5 to 3.5 (5) History of fracture of left hip (6) VINCE on CPAP (7) Pneumothorax on left (8) Ribs, multiple fractures (9) Subcutaneous air (10) Overactive bladder (11) Falls (12) DVT (deep venous thrombosis) (13) Osteoarthritis (14) Edema (15) Anemia (16) Constipation (17) Knee joint replacement status (18) Urinary tract infection due to ESBL Klebsiella Clinical Quality Measures DVT/VTE Risk/Contraindication: Risk Factor Score Per Nursin RFS Level Per Nursing on Admit: 4+=Very High DARON MARIN DO Apr 20, 2018 09:31
[2018-04-20] MEDS: LIDOCAINE 4% (SALONPAS) PATCH TOP SCH (10:02)
[2018-04-20] MEDS: SILVER SULFADIAZINE 50 GM CREAM TOP SCH (10:05)
--- NOTE | 2018-04-20 10:12 | Physical Therapy Daily Note ---
PT Daily Note-Current Subjective Pt. up in chair and agrees to therapy. States she is tired today from taking a Melatonin at 3am. She has no c/o pain at present time. Mental Status Patient Orientation: Person, Place, Time, Situation Transfers Therapy Code Descriptions/Definitions Functional [place] Measure: 0=Not Assessed/NA 4=Minimal Assistance 1=Total Assistance 5=Supervision or Setup 2=Maximal Assistance 6=Modified [place] 3=Moderate Assistance 7=Complete [place] Therapy Quality Codes: 6 Independent with activity with or without an assistive device 5 Patient requires set up or clean up by helper. Patient completes activity by themselves 4 Supervision or touching assist (CGA). [place] provide cues , steadying assist 3 The helper provides less than half the effort to complete the activity 2 The helper provides more than half the effort to complete the activity 1 Dependent. The helper does all the effort to complete an activity 7 Patient refused to complete or attempt activity 9 The patient did not perform the activity before the current illness or injury 88 Not attempted due to Medical conditions or safety concerns Transfers (B, C, W/C) (FIM): 4 Sit to Stand (QC): 4 uses lift chair in room with SBA, otherwise CGA with sit to stand Weight Bearing Right Lower Extremity: Right Weight Bearing/Tolerated Left Lower Extremity: Left Weight Bearing/Tolerated Gait Training Does the Patient Walk?: Yes Gait (FIM): 4 Distance (FIM): 3=150 ft Distance: x 75 ft, x 170 ft Gait Level of Assist: 4 Gait Persons Needed: 1 Gait Assistive Device: FWW slow gait speed and decreased foot clearance (B) but no loss of balance Exercises Seated Therapy Exercises: Ankle pumps, Sit to stand (2 x 5 reps), Long arc quads, Hip abd/add Seated Reps: 20 Standing: Hip Abduction, Marching Standing Reps: 10 NuStep Minutes: 15 NuStep Workload: 3 Treatments gait training, exercise Assessment Current Status: Good Progress Pt. is making gains in mobility but fatigues very quickly with LE exercises and remains weak in (B) hips. She is steady with gait using a FWW. Pt. returned to bedside chair, all needs met. PT Short Term Goals Short Term Goals Time Frame: Apr 20, 2018 Transfers (B,C,W/C) (FIM): 4 Gait (FIM): 2 Distance (FIM): 2=034-74 ft Gait Assistive Device: FWW Wheelchair Distance: 100' PT Skilled Nursing Goals Bioprocess Engineer Goals PT Skilled Nursing Goals Time Frame: May 04, 2018 Transfers (B,C,W/C) (FIM): 6 Sit to Lying (QC): 6 Lying-Sitting on Side/Bed(QC): 6 Sit to Stand (QC): 6 Rollin Roll Left to Right (QC): 6 Chair/Ldg-fh-Hvhnc Xfer(QC): 6 Car Transfer (QC): 5 Does the Patient Walk: Yes Gait (FIM): 5 (household) Gait distance (FIM): 2=819-26 ft Walk 10 feet (QC): 6 Walk 10ft-Uneven Surface(QC): 6 Walk 50ft with 2 Turns (QC): 6 Walk 150 ft (QC): 88 Gait Assistive Device: FWW Stairs (FIM): 5 (household) # of Steps: 4 1 Step (curb) (QC): 6 4 Steps (QC): 6 12 Steps (QC): 88 Picking up an Object (QC): 88 PT Plan Treatment/Plan Treatment Plan: Continue Plan of Care Treatment Plan: Bed Mobility, Education, Functional Activity Ricardo, Functional Strength, Group Therapy, Gait, Safety, Therapeutic Exercise, Transfers Treatment Duration: May 04, 2018 Frequency: At least 5 of 7 days/Wk (IRF) Estimated Hrs Per Day: 1.5 hours per day Patient and/or Family Agrees t: Yes Time/GCodes Time In: 900 Time Out: 1000 Total Billed Treatment Time: 60 Total Billed Treatment 1, GT 20', Ex 40' BRYCE WALKER PT Apr 20, 2018 10:12
--- NOTE | 2018-04-20 11:30 | NUR ---
DR. MARIN WAS INFORMED OF URINE CULTURE RESULTS, INCLUDING ESBL POSITIVE. IV MEROPENEM STARTED. CONTACT ISOLATION STARTED. PATIENT "BUMMED OUT" ABOUT NEWS. VISITED WITH AND ENCOURAGEMENT GIVEN.
[2018-04-20] MEDS: MEROPENEM 500 MG in WATER (STERILE) FOR INJECTION 10 ML IV SCH ×3 (11:53→22:45)
[2018-04-20] MEDS: CATHETER FLUSH 10 ML SYR IV SCH ×2 (12:49→22:45)
[2018-04-20] MEDS: BUMETANIDE 1 MG (BUMEX) TAB PO SCH (14:01)
--- NOTE | 2018-04-20 14:32 | Physical Therapy Daily Note ---
PT Daily Note-Current Subjective Pt. and present, both express that they are depressed b/c pt. has a newly discovered bladder infection that may be hard to fight. Pt. agrees to Rx. Pain Location: No Pain Reported Mental Status Patient Orientation: Normal For Age Transfers Therapy Code Descriptions/Definitions Functional [place] Measure: 0=Not Assessed/NA 4=Minimal Assistance 1=Total Assistance 5=Supervision or Setup 2=Maximal Assistance 6=Modified [place] 3=Moderate Assistance 7=Complete [place] Therapy Quality Codes: 6 Independent with activity with or without an assistive device 5 Patient requires set up or clean up by helper. Patient completes activity by themselves 4 Supervision or touching assist (CGA). [place] provide cues , steadying assist 3 The helper provides less than half the effort to complete the activity 2 The helper provides more than half the effort to complete the activity 1 Dependent. The helper does all the effort to complete an activity 7 Patient refused to complete or attempt activity 9 The patient did not perform the activity before the current illness or injury 88 Not attempted due to Medical conditions or safety concerns in out lift chair and std chair SBA. Weight Bearing Right Lower Extremity: Right Weight Bearing/Tolerated Left Lower Extremity: Left Weight Bearing/Tolerated Gait Training Does the Patient Walk?: Yes Gait Assistive Device: FWW 150 ft x 2 , 40 ft FWW slow, flexed over FWW CGA no LOB, Stair Training Stair Training: Handrails/: uses walker Stairs (FIM): 2 #of Steps: 2 Stairs: Pattern: Step to Level of Assist: 4 small pink step using FWW CGA Exercises Seated Therapy Exercises: Ankle pumps, Sit to stand, Long arc quads, Hip flexion, Hip abd/add Seated Reps: 12 Assessment Current Status: Good Progress PT Short Term Goals Short Term Goals Time Frame: Apr 20, 2018 Transfers (B,C,W/C) (FIM): 4 Gait (FIM): 2 Distance (FIM): 8=063-43 ft Gait Assistive Device: FWW Wheelchair Distance: 100' PT [facility]ci Goals Biomass Boiler Operator Goals PT Biomass Boiler Operator Goals Time Frame: May 04, 2018 Transfers (B,C,W/C) (FIM): 6 Sit to Lying (QC): 6 Lying-Sitting on Side/Bed(QC): 6 Sit to Stand (QC): 6 Rollin Roll Left to Right (QC): 6 Chair/Goq-cu-Etpwb Xfer(QC): 6 Car Transfer (QC): 5 Does the Patient Walk: Yes Gait (FIM): 5 (household) Gait distance (FIM): 1=286-85 ft Walk 10 feet (QC): 6 Walk 10ft-Uneven Surface(QC): 6 Walk 50ft with 2 Turns (QC): 6 Walk 150 ft (QC): 88 Gait Assistive Device: FWW Stairs (FIM): 5 (household) # of Steps: 4 1 Step (curb) (QC): 6 4 Steps (QC): 6 12 Steps (QC): 88 Picking up an Object (QC): 88 PT Plan Treatment/Plan Treatment Plan: Continue Plan of Care Treatment Plan: Bed Mobility, Education, Functional Activity Ricardo, Functional Strength, Group Therapy, Gait, Safety, Therapeutic Exercise, Transfers Treatment Duration: May 04, 2018 Frequency: At least 5 of 7 days/Wk (IRF) Estimated Hrs Per Day: 1.5 hours per day Patient and/or Family Agrees t: Yes Safety Risks/Education Patient Education: Gait Training, Transfer Techniques, Steps, Correct Positioning, Disease Process, Safety Issues Teaching Recipient: Patient Teaching Methods: Demonstration, Discussion Response to Teaching: Verbalize Understanding, Return Demonstration, Reinforcement Needed Time/GCodes Time In: 1400 Time Out: 1430 Total Billed Treatment Time: 30 Total Billed Treatment 1,GT15m,FA15m G Codes Necessary: GORDON Ernst PTA Apr 20, 2018 14:32
--- NOTE | 2018-04-20 15:25 | NUR ---
Patient started on IV meropenem q6 for UTI. KEYBOARD INSTRUMENT TUNER inquired with pharmacistKal in regards to duration as patient is scheduled for discharge on Friday, 04/24. Per Kal, patient may only require 5 day course; however, if additional days are needed patient may have the ability to transition to alternative antibiotic (Ertapenem 1gm daily) to allow for outpatient infusions once discharged. KEYBOARD INSTRUMENT TUNER will continue to follow for appropriate arrangements of IV antibiotics. Addendum: 04/21/18 at 1150 by ZACHARY MCKEON KEYBOARD INSTRUMENT TUNER received confirmation from Dr. Santana of 5 day completion of IV antibiotics; therefore, patient will not require IV abx at discharge and can proceed with discharge plan on 04/24.
[2018-04-20] MEDS: warFARin 5 MG (COUMADIN) TAB PO SCH (17:52)
[2018-04-20] MEDS: warFARin 3 MG (COUMADIN) TAB PO SCH (17:52)
[2018-04-20] MEDS: CATHETER FLUSH 10 ML SYR IV PRN (17:54)
[2018-04-20 18:00] VITALS: BP 156/76
[2018-04-20] MEDS: LIDOCAINE PATCH REMOVAL TP SCH (20:26)
[2018-04-21] MEDS: HYDROcodone/APAP 10 MG/325 MG (LORTAB) TAB PO SCH ×5 (04:04→20:03)
[2018-04-21] MEDS: MEROPENEM 500 MG in WATER (STERILE) FOR INJECTION 10 ML IV SCH ×4 (06:07→22:36)
[2018-04-21] MEDS: KCL 20 MEQ TAB (K-DUR) PO SCH (06:08)
[2018-04-21] MEDS: CATHETER FLUSH 10 ML SYR IV SCH ×3 (06:09→22:36)
[2018-04-21] MEDS: PSEUDOEPHEDRINE HCL 30 MG (SUDAFED) TAB PO PRN ×2 (06:28→14:32)
[2018-04-21 06:49] VITALS: BP 170/84
[2018-04-21 07:07] LABS: BASOPHILS # (AUTO) 0.1 10^3/uL (0.0-0.1); BASOPHILS % (AUTO) 1 % (0-10); EOSINOPHILS # (AUTO) 0.4 10^3/uL (0.0-0.3); EOSINOPHILS % (AUTO) 7 % (0-10); HEMATOCRIT 36 % (35-52); LYMPHOCYTES # (AUTO) 2.1 X 10^3 (1.0-4.0); LYMPHOCYTES % (AUTO) 35 % (12-44); MEAN CORPUSCULAR HEMOGLOBIN 28 PG (25-34); MEAN CORPUSCULAR HGB CONC 30 G/DL (32-36); MEAN CORPUSCULAR VOLUME 92 FL (80-99); MEAN PLATELET VOLUME 10.2 FL (7.4-10.4); MONOCYTES # (AUTO) 0.5 X 10^3 (0.0-1.0); MONOCYTES % (AUTO) 9 % (0-12); NEUTROPHILS % (AUTO) 49 % (42-75); PLATELET COUNT 210 10^3/uL (130-400); RED CELL DISTRIBUTION WIDTH 18.2 % (10.0-14.5); WHITE BLOOD COUNT 6.1 10^3/uL (4.3-11.0)
[2018-04-21 07:19] LABS: INR 2.5 (0.8-1.4); PROTHROMBIN TIME PATIENT 26.8 SEC (12.2-14.7)
[2018-04-21 07:25] LABS: ALANINE AMINOTRANSFERASE 9 U/L (0-55); ALBUMIN 3.3 GM/DL (3.2-4.5); ALKALINE PHOSPHATASE 165 U/L (40-136); BILIRUBIN,TOTAL 0.2 MG/DL (0.1-1.0); BUN/CREATININE RATIO 28; CALCIUM 8.5 MG/DL (8.5-10.1); CARBON DIOXIDE 27 MMOL/L (21-32); CHLORIDE 103 MMOL/L (98-107); CREATININE SERUM 0.65 MG/DL (0.60-1.30); GFR ESTIMATED > 60; GLUCOSE 98 MG/DL (70-105); POTASSIUM 4.2 MMOL/L (3.6-5.0); SODIUM 142 MMOL/L (135-145)
[2018-04-21] MEDS: OXYBUTYNIN (DITROPAN) 5 MG TAB PO SCH ×3 (08:15→20:03)
[2018-04-21] MEDS: GABAPENTIN 300 MG (NEURONTIN) CAP PO SCH ×4 (08:15→20:02)
[2018-04-21] MEDS: PHENAZOPYRIDINE 100 MG (PYRIDIUM) TABLET PO SCH ×3 (08:15→17:13)
[2018-04-21] MEDS: SENNA W/DOCUSATE (SENOKOT S) TABLET PO SCH ×2 (08:15→20:04)
[2018-04-21] MEDS: PRAMIPEXOLE 0.125 MG (MIRAPEX) TABLET PO SCH ×2 (08:15→20:03)
[2018-04-21] MEDS: LORATADINE (CLARITIN) 10 MG TAB PO SCH (08:15)
[2018-04-21] MEDS: MINOCYCLINE 100 MG TABLET (NON-FORMULARY) PO SCH ×2 (08:15→20:03)
[2018-04-21] MEDS: predniSONE 5 MG TAB PO SCH (08:15)
--- NOTE | 2018-04-21 09:04 | PM&R Progress Note ---
Subjective HPI/CC On Admission Date Seen by Provider: Apr 21, 2018 Time Seen by Provider: 09:00 Chief complaint: Debility HPI: This is a clinic Pt of Dr. Vasquez that I have taken care of on two separate occasions in inpatient rehab, most recently was a hip fracture that is s/p left rib fractures with small pneumothorax cared for at [facility] since last Friday. She also sustained a sternal fracture during the fall. Pt is using IS. Pain is controlled. Coumadin was restarted on 04/01/18. She did have subcutaneous emphysema on the left side from the rib fractures but now resolved. Checking CXR today and will check labs including INR tomorrow Had episode of sepsis of unknown source 3 weeks ago and that was managed conservatively. BM yesterday since she had not gone for entire hospital stay at [place]. Subjective/Events-last exam ESBL in the urine culture so started on Meropenem for 5 days since it is an early UTI only 20 cells in urine. Overall doing well. Pain is well controlled. Uses oxygen at night. DC planned for Friday Review of Systems General: Fatigue Objective Exam Vital Signs Vital Signs Date Time Temp Pulse Resp B/P (MAP) Pulse Ox O2 Delivery O2 Flow Rate FiO2 04/21/18 17:24 97.9 65 18 138/77 (97) 96 Room Air 04/19/18 07:26 2.00 Capillary Refill : Less Than 3 Seconds General Appearance: No Apparent Distress, WD/WN, Chronically ill, Obese HEENT: PERRL/EOMI, Normal ENT Inspection, Pharynx Normal, Moist Mucous Membranes Neck: Full Range of Motion, Normal Inspection, Non Tender, Supple Respiratory: Lungs Clear, Normal Breath Sounds, No Accessory Muscle Use, No Respiratory Distress, Crackles (LLL) Cardiovascular: Regular Rate, Rhythm, No Edema, No Gallop, No JVD, No Murmur Gastrointestinal: Normal Bowel Sounds, No Organomegaly, No Pulsatile Mass, Non Tender, Soft Rectal: Normal Exam Back: Normal Inspection, No CVA Tenderness, No Vertebral Tenderness Extremity: Normal Capillary Refill, Normal Inspection, Normal Range of Motion, Non Tender, No Calf Tenderness, No Pedal Edema, Other (venous stais changes chronic and severe) Neurologic/Psychiatric: Alert, Oriented x3, No Motor/Sensory Deficits, Normal Mood/Affect, [place] II-XII Norm as Tested, Abnormal Gait, Motor Weakness ( generalized) Skin: Normal Color, Warm/Dry, Other (wound left lateral leg, severe varicosities with venous stasis dermatitis) Lymphatic: No Adenopathy Results/Procedures Lab Laboratory Tests 04/21/18 07:02 Patient resulted labs reviewed. Assessment/Plan Assessment and Plan Assess & Plan/Chief Complaint Assessment: Debility Falls Left PTX Left rib fractures Left sided subcutaneous air Coumadin treatment DVT hx VINCE Night time hypoxia s/p constipation Severe venous stasis dermatitis lower legs Left lateral leg wound consulting wound care Iron deficiency s/p iron infusions 6 weeks ago and low again so will repeat the iron infusions again and will complete prior to DC late next week Recent sepsis episode managed at [facility] [place] 2 weeks prior to fall UTI ESBL placed on Meropenem 04/20/18 Plan: PT/OT Fall prevention Monitor INR prn Maintain the increased Fentanyl patch Lortab Q4hrs scheduled Venofer infusions Sudafed Pyridium in the meantime Meropenem (1) Debility (2) Venous stasis dermatitis of both lower extremities (3) Nocturnal hypoxia (4) Anticoagulation goal of INR 2.5 to 3.5 (5) History of fracture of left hip (6) VINCE on CPAP (7) Pneumothorax on left (8) Ribs, multiple fractures (9) Subcutaneous air (10) Overactive bladder (11) Falls (12) DVT (deep venous thrombosis) (13) Osteoarthritis (14) Edema (15) Anemia (16) Constipation (17) Knee joint replacement status (18) Urinary tract infection due to ESBL Klebsiella Clinical Quality Measures DVT/VTE Risk/Contraindication: Risk Factor Score Per Nursin RFS Level Per Nursing on Admit: 4+=Very High DARON MARIN DO Apr 21, 2018 09:04
--- NOTE | 2018-04-21 09:41 | Occupational Ther Daily Note ---
OT Current Status-Daily Note Subjective Pt in chair, agrees to treatment. Reports 6/10 pain in ribs. RN provided pain medication. Mental Status/Objective Therapy Code Descriptions/Definitions Functional [place] Measure: 0=Not Assessed/NA 4=Minimal Assistance 1=Total Assistance 5=Supervision or Setup 2=Maximal Assistance 6=Modified [place] 3=Moderate Assistance 7=Complete [place] ADL-Treatment Sit to stand with supervision. Gait to restroom with FWW. Transfer to [facility] [place] over toilet with supervision. Pt did not void at that time. Doffed lower body clothing with coke production heater while seated. Transfer to walk in shower with supervision. Doffed shirt with SBA. Seated bathing completed using hand held shower. Upper body bathing completed with SBA. Pt used long handled sponge to wash lower legs and feet. Minimal assistance to wash buttocks. Pt required minimal assistance to stand from shower bench and transfer out of shower. Pt donned shirt with minimal assistance to hide puller head. Used coke production heater to start Depends and pants over feet. Minimal assistance to pull pants up over hips. Pt donned socks with SBA using sock aid. Grooming tasks completed seated at sink. Pt brushed teeth with modified independence. Used long handled brush to brush hair with modified independence. Transfer to [facility] [place] over toilet with SBA. Pt required minimal assistance for toileting. Stood at sink to wash hands with modified independence. Increased time required for ADL tasks. Pt returned to chair, sitting with needs met after session. Therapy Code Descriptions/Definitions Functional [place] Measure: 0=Not Assessed/NA 4=Minimal Assistance 1=Total Assistance 5=Supervision or Setup 2=Maximal Assistance 6=Modified [place] 3=Moderate Assistance 7=Complete [place] Therapy Quality Codes: 6 Independent with activity with or without an assistive device 5 Patient requires set up or clean up by helper. Patient completes activity by themselves 4 Supervision or touching assist (CGA). [place] provide cues , steadying assist 3 The helper provides less than half the effort to complete the activity 2 The helper provides more than half the effort to complete the activity 1 Dependent. The helper does all the effort to complete an activity 7 Patient refused to complete or attempt activity 9 The patient did not perform the activity before the current illness or injury 88 Not attempted due to Medical conditions or safety concerns Grooming (FIM): 6 Oral Hygiene (QC): 6 Bathing (FIM): 4 Shower/Bathe Self (QC): 3 Upper Body (FIM): 4 Upper Body Dressing (QC): 3 Lower Body Dressing (FIM): 4 Lower Body Dressing (QC): 3 On/Off Footwear (QC): 4 Toileting (FIM): 4 Toilet/Commode Transfer (FIM): 5 Shower Transfer(FIM): 4 OT Short Term Goals Short Term Goals Time Frame: Apr 13, 2018 Eating(FIM): 5 Grooming(FIM): 5 Bathing(FIM): 4 Upper Body Dressing(FIM): 4 Lower Body Dressing(FIM): 3 Toileting(FIM): 4 Transfers (B,C,W/C) (FIM): 4 Toilet/Commode Transfer(FIM): 3 Shower Transfer(FIM): 3 Additional Short Term Goals: 1-Demonstrate ADL Tasks, 2-Verbalize Understanding , 3-ImproveStrength/Ricardo 1=Demonstrate adherence to instructed precautions during ADL tasks. 2=Patient will verbalize/demonstrate understanding of assistive devices/ modifications for ADL. 3=Patient will improve strength/tolerance for activity to enable patient to perform ADL's. OT Mcfp Goals Tool Room Supervisor Goals Time Frame: Apr 20, 2018 Eating (FIM): 7 Eating (QC): 6 Groomin Oral Hygiene (QC): 6 Bathing(FIM): 5 Shower/Bathe Self (QC): 5 Upper Body Dressing(FIM): 5 Upper Body Dressing (QC): 5 Lower Body Dressing(FIM): 5 Lower Body Dressing (QC): 5 On/Off Footwear (QC): 5 Toileting(FIM): 6 Toileting Hygiene (QC): 6 Transfers (B,C,W/C) (FIM): 6 Toilet/Commode Transfer(FIM): 6 Toilet/Commode Transfer (QC): 6 Shower Transfer(FIM): 5 Additional Goals: 1-Demonstrate ADL Tasks, 2-Verbalize Understanding, 3- ImproveStrength/Ricardo 1=Demonstrate adherence to instructed precautions during ADL tasks. 2=Patient will verbalize/demonstrate understanding of assistive devices/ modifications for ADL. 3=Patient will improve strength/tolerance for activity to enable patient to perform ADL's. OT Education/Plan Discharge Recommendations Plan/Recommendations: Continue POC Treatment Plan/Plan of Care Patient would benefit from OT for education, treatment and training to promote independence in ADL's, mobility, safety and/or upper extremity function for ADL' s. Plan of Care: ADL Retraining, Functional Mobility, Group Exercise/Act as Ind, UE Funct Exercise/Act Treatment Duration: Apr 20, 2018 Frequency: At least 5 of 7 days/Wk (IRF) Estimated Hrs Per Day: 1.5 hours per day Agreement: Yes Rehab Potential: Good Time/GCodes Start Time: 08:00 Stop Time: 09:30 Total Time Billed (hr/min): 90 Billed Treatment Time 1 visit, ADLx6(90minutes) TEGAN HOOD OT Apr 21, 2018 09:41
[2018-04-21] MEDS: SILVER SULFADIAZINE 50 GM CREAM TOP SCH (09:55)
[2018-04-21] MEDS: LIDOCAINE 4% (SALONPAS) PATCH TOP SCH (10:19)
[2018-04-21] MEDS: IRON SUCROSE 200 MG/10 ML (VENOFER) VIAL IV SCH (10:20)
--- NOTE | 2018-04-21 11:42 | NUR ---
Assumed care of patient.
--- NOTE | 2018-04-21 12:07 | Physical Therapy Daily Note ---
PT Daily Note-Current Subjective Pt. agrees to Rx. States Dr Santana explained her bladder infection and she understands it better. States she plans to leave on Fri as previously thought Pain Location: No Pain Reported Mental Status Patient Orientation: Normal For Age Transfers Therapy Code Descriptions/Definitions Functional [place] Measure: 0=Not Assessed/NA 4=Minimal Assistance 1=Total Assistance 5=Supervision or Setup 2=Maximal Assistance 6=Modified [place] 3=Moderate Assistance 7=Complete [place] Therapy Quality Codes: 6 Independent with activity with or without an assistive device 5 Patient requires set up or clean up by helper. Patient completes activity by themselves 4 Supervision or touching assist (CGA). [place] provide cues , steadying assist 3 The helper provides less than half the effort to complete the activity 2 The helper provides more than half the effort to complete the activity 1 Dependent. The helper does all the effort to complete an activity 7 Patient refused to complete or attempt activity 9 The patient did not perform the activity before the current illness or injury 88 Not attempted due to Medical conditions or safety concerns Transfers (B, C, W/C) (FIM): 5 Scootin Rollin Supine to/from Sit: 6 Sit to/from Stand: 6 Weight Bearing Right Lower Extremity: Right Weight Bearing/Tolerated Left Lower Extremity: Left Weight Bearing/Tolerated Gait Training Does the Patient Walk?: Yes Gait (FIM): 5 Distance (FIM): 3=150 ft (170x2) Gait Level of Assist: 5 Gait Persons Needed: 1 Gait Assistive Device: FWW pt. is slow, flexed over FWW, left LE circumducts around RLE with some valgum noted bilat. no LOB Stair Training Stair Training: Handrails/: uses walker Stairs (FIM): 2 #of Steps: 4 Stairs: Pattern: Step to Level of Assist: 4 good sequencing, no c/o increased pain in ribs today during steps Exercises Supine Ex: Ankle pumps, Quad Set, Rolling, Glut sets, Heel Slides, Short Arc Quads, Scooting, Straight leg raise, Hip abd/add Supine Reps: 12 Seated Therapy Exercises: Ankle pumps, Sit to stand, Long arc quads, Hip flexion Seated Reps: 12 NuStep Minutes: 10 NuStep Workload: 2 Treatments toileted with min assist pants down up Assessment Current Status: Good Progress PT Short Term Goals Short Term Goals Time Frame: Apr 20, 2018 Transfers (B,C,W/C) (FIM): 4 Gait (FIM): 2 Distance (FIM): 1=574-26 ft Gait Assistive Device: FWW Wheelchair Distance: 100' PT Chcf Goals Chcf Goals PT Chcf Goals Time Frame: May 04, 2018 Transfers (B,C,W/C) (FIM): 6 Sit to Lying (QC): 6 Lying-Sitting on Side/Bed(QC): 6 Sit to Stand (QC): 6 Rollin Roll Left to Right (QC): 6 Chair/Wum-eg-Armpo Xfer(QC): 6 Car Transfer (QC): 5 Does the Patient Walk: Yes Gait (FIM): 5 (household) Gait distance (FIM): 1=768-00 ft Walk 10 feet (QC): 6 Walk 10ft-Uneven Surface(QC): 6 Walk 50ft with 2 Turns (QC): 6 Walk 150 ft (QC): 88 Gait Assistive Device: FWW Stairs (FIM): 5 (household) # of Steps: 4 1 Step (curb) (QC): 6 4 Steps (QC): 6 12 Steps (QC): 88 Picking up an Object (QC): 88 PT Plan Treatment/Plan Treatment Plan: Continue Plan of Care Treatment Plan: Bed Mobility, Education, Functional Activity Ricardo, Functional Strength, Group Therapy, Gait, Safety, Therapeutic Exercise, Transfers Treatment Duration: May 04, 2018 Frequency: At least 5 of 7 days/Wk (IRF) Estimated Hrs Per Day: 1.5 hours per day Patient and/or Family Agrees t: Yes Safety Risks/Education Patient Education: Gait Training, Transfer Techniques, Steps, Correct Positioning, Disease Process, Safety Issues Teaching Recipient: Patient Teaching Methods: Demonstration, Discussion Response to Teaching: Verbalize Understanding, Return Demonstration, Reinforcement Needed Time/GCodes Time In: 1100 Time Out: 1200 Total Billed Treatment Time: 60 Total Billed Treatment 1,EX25m,GT20m,FA15m G Codes Necessary: GORDON Ernst PTA Apr 21, 2018 12:07
[2018-04-21] MEDS: BUMETANIDE 1 MG (BUMEX) TAB PO SCH (14:32)
--- NOTE | 2018-04-21 15:18 | Physical Therapy Daily Note ---
PT Daily Note-Current Subjective Agrees to Rx. Requests heat pack to her back for pain. Rates mid upper back pain at 7/10 Pain Numeric Pain Scale: 7 Location: Medial Location Body Site: Back Pain Description: Stabbing Mental Status Patient Orientation: Normal For Age Transfers Therapy Code Descriptions/Definitions Functional [place] Measure: 0=Not Assessed/NA 4=Minimal Assistance 1=Total Assistance 5=Supervision or Setup 2=Maximal Assistance 6=Modified [place] 3=Moderate Assistance 7=Complete [place] Therapy Quality Codes: 6 Independent with activity with or without an assistive device 5 Patient requires set up or clean up by helper. Patient completes activity by themselves 4 Supervision or touching assist (CGA). [place] provide cues , steadying assist 3 The helper provides less than half the effort to complete the activity 2 The helper provides more than half the effort to complete the activity 1 Dependent. The helper does all the effort to complete an activity 7 Patient refused to complete or attempt activity 9 The patient did not perform the activity before the current illness or injury 88 Not attempted due to Medical conditions or safety concerns sit to stand from recliner and std chair CGA to SBA Weight Bearing Right Lower Extremity: Right Weight Bearing/Tolerated Left Lower Extremity: Left Weight Bearing/Tolerated Gait Training Does the Patient Walk?: Yes Gait Assistive Device: FWW 150x2 slow, no LOB, flexed trunk, head down Exercises Seated Therapy Exercises: Ankle pumps, Sit to stand, Long arc quads, Hip flexion, Hip abd/add Seated Reps: 10 Treatments MHP x 13min in sitting position padded well with toweling Assessment Current Status: Good Progress PT Short Term Goals Short Term Goals Time Frame: Apr 20, 2018 Transfers (B,C,W/C) (FIM): 4 Gait (FIM): 2 Distance (FIM): 0=549-72 ft Gait Assistive Device: FWW Wheelchair Distance: 100' PT Scouring Pads Supervisor Goals Scouring Pads Supervisor Goals PT Scouring Pads Supervisor Goals Time Frame: May 04, 2018 Transfers (B,C,W/C) (FIM): 6 Sit to Lying (QC): 6 Lying-Sitting on Side/Bed(QC): 6 Sit to Stand (QC): 6 Rollin Roll Left to Right (QC): 6 Chair/Isk-yb-Emelr Xfer(QC): 6 Car Transfer (QC): 5 Does the Patient Walk: Yes Gait (FIM): 5 (household) Gait distance (FIM): 9=788-97 ft Walk 10 feet (QC): 6 Walk 10ft-Uneven Surface(QC): 6 Walk 50ft with 2 Turns (QC): 6 Walk 150 ft (QC): 88 Gait Assistive Device: FWW Stairs (FIM): 5 (household) # of Steps: 4 1 Step (curb) (QC): 6 4 Steps (QC): 6 12 Steps (QC): 88 Picking up an Object (QC): 88 PT Plan Treatment/Plan Treatment Plan: Continue Plan of Care Treatment Plan: Bed Mobility, Education, Functional Activity Ricardo, Functional Strength, Group Therapy, Gait, Safety, Therapeutic Exercise, Transfers Treatment Duration: May 04, 2018 Frequency: At least 5 of 7 days/Wk (IRF) Estimated Hrs Per Day: 1.5 hours per day Patient and/or Family Agrees t: Yes Safety Risks/Education Patient Education: Gait Training, Transfer Techniques, Correct Positioning, Disease Process, Safety Issues Teaching Recipient: Patient Teaching Methods: Demonstration, Discussion Response to Teaching: Verbalize Understanding, Return Demonstration, Reinforcement Needed Time/GCodes Time In: 1438 Time Out: 1508 Total Billed Treatment Time: 30 Total Billed Treatment 1,GT15m,EX15m G Codes Necessary: GORDON Ernst WASTE DISPOSAL ATTENDANT Apr 21, 2018 15:18
[2018-04-21] MEDS: warFARin 5 MG (COUMADIN) TAB PO SCH (17:14)
[2018-04-21] MEDS: warFARin 3 MG (COUMADIN) TAB PO SCH (17:14)
[2018-04-21 17:24] VITALS: BP 138/77
[2018-04-21] MEDS: LIDOCAINE PATCH REMOVAL TP SCH (20:04)
[2018-04-21] MEDS: MELATONIN 3 MG TABLET PO PRN (22:36)
[2018-04-22] MEDS: HYDROcodone/APAP 10 MG/325 MG (LORTAB) TAB PO SCH ×6 (00:27→20:55)
[2018-04-22 05:04] VITALS: BP 122/74
[2018-04-22] MEDS: MEROPENEM 500 MG in WATER (STERILE) FOR INJECTION 10 ML IV SCH ×4 (05:51→23:15)
[2018-04-22] MEDS: CATHETER FLUSH 10 ML SYR IV SCH ×3 (05:51→20:57)
[2018-04-22] MEDS: PSEUDOEPHEDRINE HCL 30 MG (SUDAFED) TAB PO PRN ×2 (06:00→22:28)
[2018-04-22] MEDS: KCL 20 MEQ TAB (K-DUR) PO SCH (06:00)
[2018-04-22] MEDS: PRAMIPEXOLE 0.125 MG (MIRAPEX) TABLET PO SCH ×2 (08:14→20:55)
[2018-04-22] MEDS: PHENAZOPYRIDINE 100 MG (PYRIDIUM) TABLET PO SCH ×3 (08:14→17:45)
[2018-04-22] MEDS: predniSONE 5 MG TAB PO SCH (08:14)
[2018-04-22] MEDS: OXYBUTYNIN (DITROPAN) 5 MG TAB PO SCH ×3 (08:14→20:55)
[2018-04-22] MEDS: SENNA W/DOCUSATE (SENOKOT S) TABLET PO SCH ×2 (08:14→20:56)
[2018-04-22] MEDS: LORATADINE (CLARITIN) 10 MG TAB PO SCH (08:15)
[2018-04-22] MEDS: GABAPENTIN 300 MG (NEURONTIN) CAP PO SCH ×4 (08:15→20:55)
[2018-04-22] MEDS: MINOCYCLINE 100 MG TABLET (NON-FORMULARY) PO SCH ×2 (09:06→20:56)
[2018-04-22] MEDS: SILVER SULFADIAZINE 50 GM CREAM TOP SCH (09:07)
[2018-04-22] MEDS: LIDOCAINE 4% (SALONPAS) PATCH TOP SCH (09:07)
--- NOTE | 2018-04-22 10:26 | PM&R Progress Note ---
Subjective HPI/CC On Admission Date Seen by Provider: Apr 22, 2018 Time Seen by Provider: 10:00 Chief complaint: Debility HPI: This is a clinic Pt of Dr. Vasquez that I have taken care of on two separate occasions in inpatient rehab, most recently was a hip fracture that is s/p left rib fractures with small pneumothorax cared for at [facility] since last Friday. She also sustained a sternal fracture during the fall. Pt is using IS. Pain is controlled. Coumadin was restarted on 04/01/18. She did have subcutaneous emphysema on the left side from the rib fractures but now resolved. Checking CXR today and will check labs including INR tomorrow Had episode of sepsis of unknown source 3 weeks ago and that was managed conservatively. BM yesterday since she had not gone for entire hospital stay at [place]. Subjective/Events-last exam ESBL in the urine culture tolerating Meropenem for 5 days since it is an early UTI only 20 cells in urine. Overall doing well. Pain is well controlled. Uses oxygen at night. DC planned for Friday Left lower ankle wound doing well just Silvadene with dressing changes every day Has pain in her upper mid back so will initiate K pad heating pad Review of Systems General: Fatigue Musculoskeletal: back pain Objective Exam Vital Signs Vital Signs Date Time Temp Pulse Resp B/P (MAP) Pulse Ox O2 Delivery O2 Flow Rate FiO2 04/22/18 07:10 Room Air 04/22/18 05:04 97.6 63 18 122/74 (90) 96 04/19/18 07:26 2.00 Capillary Refill : Less Than 3 Seconds General Appearance: No Apparent Distress, WD/WN, Chronically ill, Obese HEENT: PERRL/EOMI, Normal ENT Inspection, Pharynx Normal, Moist Mucous Membranes Neck: Full Range of Motion, Normal Inspection, Non Tender, Supple Respiratory: Chest Non Tender, No Accessory Muscle Use, No Respiratory Distress , Crackles (LLL) Cardiovascular: Regular Rate, Rhythm, No Edema, No Gallop, No JVD, No Murmur Gastrointestinal: Normal Bowel Sounds, No Organomegaly, No Pulsatile Mass, Non Tender, Soft Rectal: Normal Exam Back: Normal Inspection, No CVA Tenderness, No Vertebral Tenderness Extremity: Normal Capillary Refill, Normal Inspection, Normal Range of Motion, Non Tender, No Calf Tenderness, No Pedal Edema, Other (venous stais changes chronic and severe) Neurologic/Psychiatric: Alert, Oriented x3, No Motor/Sensory Deficits, Normal Mood/Affect, interactive media marketing director II-XII Norm as Tested, Abnormal Gait, Motor Weakness ( generalized) Skin: Normal Color, Warm/Dry, Other (wound left lateral leg, severe varicosities with venous stasis dermatitis) Lymphatic: No Adenopathy Results/Procedures Lab Patient resulted labs reviewed. Assessment/Plan Assessment and Plan Assess & Plan/Chief Complaint Assessment: Debility Falls Left PTX Left rib fractures Left sided subcutaneous air Coumadin treatment DVT hx VINCE Night time hypoxia s/p constipation Severe venous stasis dermatitis lower legs Left lateral leg wound consulting wound care Iron deficiency s/p iron infusions 6 weeks ago and low again so will repeat the iron infusions again and will complete prior to DC late next week Recent sepsis episode managed at [facility] 2 weeks prior to fall UTI ESBL placed on Meropenem 04/20/18 Plan: PT/OT Fall prevention Monitor INR prn Maintain the increased Fentanyl patch Lortab Q4hrs scheduled Venofer infusions Sudafed prn Pyridium prn Meropenem last dose Friday (1) Debility (2) Venous stasis dermatitis of both lower extremities (3) Nocturnal hypoxia (4) Anticoagulation goal of INR 2.5 to 3.5 (5) History of fracture of left hip (6) VINCE on CPAP (7) Pneumothorax on left (8) Ribs, multiple fractures (9) Subcutaneous air (10) Overactive bladder (11) Falls (12) DVT (deep venous thrombosis) (13) Osteoarthritis (14) Edema (15) Anemia (16) Constipation (17) Knee joint replacement status (18) Urinary tract infection due to ESBL Klebsiella Clinical Quality Measures DVT/VTE Risk/Contraindication: Risk Factor Score Per Nursin RFS Level Per Nursing on Admit: 4+=Very High DARON MARIN DO Apr 22, 2018 10:25
--- NOTE | 2018-04-22 11:00 | NUR ---
STATES NEW PAIN IN MID BACK. WILL START ON KPAD. TOOK OWN DRINK OF PRUNE JUICE, BUTTER AND APPLE JUICE TO HAVE BM. LOOKING FORWARD TO GOING HOME ON FRIDAY.
[2018-04-22] MEDS: fentaNYL PATCH 75 MCG (DURAGESIC) TD SCH (11:03)
[2018-04-22] MEDS: FENTANYL PATCH REMOVAL TP SCH (11:03)
--- NOTE | 2018-04-22 12:26 | Occupational Ther Daily Note ---
OT Current Status-Daily Note Subjective Pt alert, sitting in recliner. Pt agrees to therapy. No c/o pain. Mental Status/Objective Patient Orientation: Person, Place, Time, Situation Therapy Code Descriptions/Definitions Functional [place] Measure: 0=Not Assessed/NA 4=Minimal Assistance 1=Total Assistance 5=Supervision or Setup 2=Maximal Assistance 6=Modified [place] 3=Moderate Assistance 7=Complete [place] Attachments: Central Line ADL-Treatment Pt ambulated to bathroom using FWW. Toilet transfer using FWW, BSC and grabbars , mod I with elevated surface. Min A with hiking pants over buttocks, pt able to complete all other toileting by self. Transferred into shower by self, assist sit to stand from shower bench. Sitting in chair pt able to don/doff upper body clothing by self. Doffs lower body clothing by self. Dons all clothing over feet using AE by self, assist to hike pants over buttocks. Sitting at sink, pt able to complete by self. Pt takes increased time to complete tasks due to decreased mobility and activity tolerance. After therapy , pt sitting in recliner with call light/phone in reach. All needs met in room. Therapy Code Descriptions/Definitions Functional [place] Measure: 0=Not Assessed/NA 4=Minimal Assistance 1=Total Assistance 5=Supervision or Setup 2=Maximal Assistance 6=Modified [place] 3=Moderate Assistance 7=Complete [place] Therapy Quality Codes: 6 Independent with activity with or without an assistive device 5 Patient requires set up or clean up by helper. Patient completes activity by themselves 4 Supervision or touching assist (CGA). [place] provide cues , steadying assist 3 The helper provides less than half the effort to complete the activity 2 The helper provides more than half the effort to complete the activity 1 Dependent. The helper does all the effort to complete an activity 7 Patient refused to complete or attempt activity 9 The patient did not perform the activity before the current illness or injury 88 Not attempted due to Medical conditions or safety concerns Grooming (FIM): 6 Oral Hygiene (QC): 6 Bathing (FIM): 4 Bathing Location: L Arm, R Arm, L Upper Leg, R Upper Leg, L Lower Leg ( including foot), R Lower Leg (including foot), Chest, Abdomen, Perineal Area Shower/Bathe Self (QC): 3 Upper Body (FIM): 5 Upper Body Dressing (QC): 5 Lower Body Dressing (FIM): 4 Lower Body Dressing (QC): 3 On/Off Footwear (QC): 5 Toileting (FIM): 4 Toileting Hygiene (QC): 3 Toilet/Commode Transfer (FIM): 6 Toilet Transfer (QC): 6 Shower Transfer(FIM): 4 OT Short Term Goals Short Term Goals Time Frame: Apr 13, 2018 Eating(FIM): 5 Grooming(FIM): 5 Bathing(FIM): 4 Upper Body Dressing(FIM): 4 Lower Body Dressing(FIM): 3 Toileting(FIM): 4 Transfers (B,C,W/C) (FIM): 4 Toilet/Commode Transfer(FIM): 3 Shower Transfer(FIM): 3 Additional Short Term Goals: 1-Demonstrate ADL Tasks, 2-Verbalize Understanding , 3-ImproveStrength/Ricardo 1=Demonstrate adherence to instructed precautions during ADL tasks. 2=Patient will verbalize/demonstrate understanding of assistive devices/ modifications for ADL. 3=Patient will improve strength/tolerance for activity to enable patient to perform ADL's. OT Smoking Pipe Driller And Threader Goals Prison Goals Time Frame: Apr 20, 2018 Eating (FIM): 7 Eating (QC): 6 Groomin Oral Hygiene (QC): 6 Bathing(FIM): 5 Shower/Bathe Self (QC): 5 Upper Body Dressing(FIM): 5 Upper Body Dressing (QC): 5 Lower Body Dressing(FIM): 5 Lower Body Dressing (QC): 5 On/Off Footwear (QC): 5 Toileting(FIM): 6 Toileting Hygiene (QC): 6 Transfers (B,C,W/C) (FIM): 6 Toilet/Commode Transfer(FIM): 6 Toilet/Commode Transfer (QC): 6 Shower Transfer(FIM): 5 Additional Goals: 1-Demonstrate ADL Tasks, 2-Verbalize Understanding, 3- ImproveStrength/Ricardo 1=Demonstrate adherence to instructed precautions during ADL tasks. 2=Patient will verbalize/demonstrate understanding of assistive devices/ modifications for ADL. 3=Patient will improve strength/tolerance for activity to enable patient to perform ADL's. OT Education/Plan Discharge Recommendations Plan/Recommendations: Continue POC Treatment Plan/Plan of Care Patient would benefit from OT for education, treatment and training to promote independence in ADL's, mobility, safety and/or upper extremity function for ADL' s. Plan of Care: ADL Retraining, Functional Mobility, Group Exercise/Act as Ind, UE Funct Exercise/Act Treatment Duration: Apr 20, 2018 Frequency: At least 5 of 7 days/Wk (IRF) Estimated Hrs Per Day: 1.5 hours per day Agreement: Yes Rehab Potential: Good Time/GCodes Start Time: 09:00 Stop Time: 10:30 Total Time Billed (hr/min): 90 Billed Treatment Time 1 visit-ADL 6 (90 min) AMANUEL MATHEWS Apr 22, 2018 12:26
--- NOTE | 2018-04-22 13:01 | Physical Therapy Daily Note ---
PT Daily Note-Current Subjective Pt. agrees to rx and feels she is doing so well she would like to try to be up ad kwadwo status b/c she will go home Fr. This NAIL MAKING MACHINE TENDER asks that she wait til tomorrow for ad kwadwo if all goes well until then Pain Location: No Pain Reported Mental Status Patient Orientation: Normal For Age Transfers Therapy Code Descriptions/Definitions Functional [place] Measure: 0=Not Assessed/NA 4=Minimal Assistance 1=Total Assistance 5=Supervision or Setup 2=Maximal Assistance 6=Modified [place] 3=Moderate Assistance 7=Complete [place] Therapy Quality Codes: 6 Independent with activity with or without an assistive device 5 Patient requires set up or clean up by helper. Patient completes activity by themselves 4 Supervision or touching assist (CGA). [place] provide cues , steadying assist 3 The helper provides less than half the effort to complete the activity 2 The helper provides more than half the effort to complete the activity 1 Dependent. The helper does all the effort to complete an activity 7 Patient refused to complete or attempt activity 9 The patient did not perform the activity before the current illness or injury 88 Not attempted due to Medical conditions or safety concerns Transfers (B, C, W/C) (FIM): 4 Scootin Rollin Supine to/from Sit: 4 (needs assist LEs into bed) Sit to/from Stand: 5 Weight Bearing Right Lower Extremity: Right Weight Bearing/Tolerated Left Lower Extremity: Left Weight Bearing/Tolerated Gait Training Does the Patient Walk?: Yes Gait (FIM): 5 Distance (FIM): 3=150 ft (170x2) Gait Level of Assist: 5 Gait Persons Needed: 1 Gait Assistive Device: FWW no LOB, consistently SBA Stair Training Stair Training: Handrails/: uses walker Stairs (FIM): 2 #of Steps: 4 Stairs: Pattern: Step to Level of Assist: 4 Exercises Supine Ex: Ankle pumps, Quad Set, Rolling, Glut sets, Lower trunk rotation, Short Arc Quads, Scooting, Straight leg raise (assist LLE), Hip abd/add Supine Reps: 15 Seated Therapy Exercises: Ankle pumps, Sit to stand, Long arc quads, Hip flexion, Hip abd/add Seated Reps: 12 NuStep Minutes: 12 NuStep Workload: 1 Treatments toileted x 2 during Rx all SBA to Mod I Assessment Current Status: Good Progress no c/o pain , increased funct mob today PT Short Term Goals Short Term Goals Time Frame: Apr 20, 2018 Transfers (B,C,W/C) (FIM): 4 Gait (FIM): 2 Distance (FIM): 6=356-18 ft Gait Assistive Device: FWW Wheelchair Distance: 100' PT Longterm Goals Longterm Goals PT Engineering Aide Goals Time Frame: May 04, 2018 Transfers (B,C,W/C) (FIM): 6 Sit to Lying (QC): 6 Lying-Sitting on Side/Bed(QC): 6 Sit to Stand (QC): 6 Rollin Roll Left to Right (QC): 6 Chair/Wny-kp-Isxac Xfer(QC): 6 Car Transfer (QC): 5 Does the Patient Walk: Yes Gait (FIM): 5 (household) Gait distance (FIM): 6=970-87 ft Walk 10 feet (QC): 6 Walk 10ft-Uneven Surface(QC): 6 Walk 50ft with 2 Turns (QC): 6 Walk 150 ft (QC): 88 Gait Assistive Device: FWW Stairs (FIM): 5 (household) # of Steps: 4 1 Step (curb) (QC): 6 4 Steps (QC): 6 12 Steps (QC): 88 Picking up an Object (QC): 88 PT Plan Treatment/Plan Treatment Plan: Continue Plan of Care Treatment Plan: Bed Mobility, Education, Functional Activity Ricardo, Functional Strength, Group Therapy, Gait, Safety, Therapeutic Exercise, Transfers Treatment Duration: May 04, 2018 Frequency: At least 5 of 7 days/Wk (IRF) Estimated Hrs Per Day: 1.5 hours per day Patient and/or Family Agrees t: Yes Safety Risks/Education Patient Education: Gait Training, Transfer Techniques, Steps, Correct Positioning, Disease Process, Safety Issues Teaching Recipient: Patient Teaching Methods: Demonstration, Discussion Response to Teaching: Verbalize Understanding, Return Demonstration, Reinforcement Needed Time/GCodes Time In: 1100 Time Out: 1230 Total Billed Treatment Time: 90 Total Billed Treatment 1,EX30m,FA30m,GT30m G Codes Necessary: GORDON Ernst NAIL MAKING MACHINE TENDER Apr 22, 2018 13:01
--- NOTE | 2018-04-22 14:05 | NUR ---
PROFESSIONAL EMPLOYER CONSULTANT met with patient to review team conference summary. As previously discussed patient will proceed with discharge on 315. PROFESSIONAL EMPLOYER CONSULTANT reviewed IMM and patient choice letter as patient wishes to continue utilizing [facility] for PT, OT and RN services. Patient expresses no concerns with discharge plan and is eager to return home. PROFESSIONAL EMPLOYER CONSULTANT re-reviewed hospital utilization of lifetime reserve Medicare benefit, of which document was signed by patient on 31. Patient remains in agreement with the utilized lifetime reserve benefit, document placed in patient's chart. Patient has all necessary equipment at home and has no further needs. Please see discharge summary for further information.
[2018-04-22] MEDS: BUMETANIDE 1 MG (BUMEX) TAB PO SCH (14:41)
[2018-04-22] MEDS: warFARin 3 MG (COUMADIN) TAB PO SCH (17:45)
[2018-04-22] MEDS: warFARin 5 MG (COUMADIN) TAB PO SCH (17:45)
[2018-04-22] MEDS: CATHETER FLUSH 10 ML SYR IV PRN (17:47)
[2018-04-22 18:00] VITALS: BP 147/80
[2018-04-22] MEDS: LIDOCAINE PATCH REMOVAL TP SCH (20:56)
[2018-04-22] MEDS: MELATONIN 3 MG TABLET PO PRN (22:28)
[2018-04-23] MEDS: HYDROcodone/APAP 10 MG/325 MG (LORTAB) TAB PO SCH ×7 (00:59→23:47)
[2018-04-23] MEDS: MEROPENEM 500 MG in WATER (STERILE) FOR INJECTION 10 ML IV SCH ×4 (05:01→23:48)
[2018-04-23] MEDS: PSEUDOEPHEDRINE HCL 30 MG (SUDAFED) TAB PO PRN ×2 (06:03→16:33)
[2018-04-23] MEDS: KCL 20 MEQ TAB (K-DUR) PO SCH (06:03)
[2018-04-23] MEDS: CATHETER FLUSH 10 ML SYR IV SCH ×4 (06:04→23:48)
[2018-04-23 06:44] VITALS: BP 98/53
[2018-04-23] MEDS: PRAMIPEXOLE 0.125 MG (MIRAPEX) TABLET PO SCH ×2 (08:48→20:49)
[2018-04-23] MEDS: PHENAZOPYRIDINE 100 MG (PYRIDIUM) TABLET PO SCH ×3 (08:48→18:15)
[2018-04-23] MEDS: GABAPENTIN 300 MG (NEURONTIN) CAP PO SCH ×4 (08:48→20:46)
[2018-04-23] MEDS: LORATADINE (CLARITIN) 10 MG TAB PO SCH (08:48)
[2018-04-23] MEDS: OXYBUTYNIN (DITROPAN) 5 MG TAB PO SCH ×3 (08:48→20:46)
[2018-04-23] MEDS: predniSONE 5 MG TAB PO SCH (08:48)
[2018-04-23] MEDS: LIDOCAINE 4% (SALONPAS) PATCH TOP SCH (08:48)
[2018-04-23] MEDS: IRON SUCROSE 200 MG/10 ML (VENOFER) VIAL IV SCH (08:49)
[2018-04-23] MEDS: SILVER SULFADIAZINE 50 GM CREAM TOP SCH (08:49)
[2018-04-23] MEDS: SENNA W/DOCUSATE (SENOKOT S) TABLET PO SCH ×2 (08:55→20:46)
[2018-04-23] MEDS: MINOCYCLINE 100 MG TABLET (NON-FORMULARY) PO SCH ×2 (09:06→20:50)
--- NOTE | 2018-04-23 09:16 | PM&R Progress Note ---
Subjective HPI/CC On Admission Date Seen by Provider: Apr 23, 2018 Time Seen by Provider: 09:30 Chief complaint: Debility HPI: This is a clinic Pt of Dr. Vasquez that I have taken care of on two separate occasions in inpatient rehab, most recently was a hip fracture that is s/p left rib fractures with small pneumothorax cared for at [facility] since last Friday. She also sustained a sternal fracture during the fall. Pt is using IS. Pain is controlled. Coumadin was restarted on 04/01/18. She did have subcutaneous emphysema on the left side from the rib fractures but now resolved. Checking CXR today and will check labs including INR tomorrow Had episode of sepsis of unknown source 3 weeks ago and that was managed conservatively. BM yesterday since she had not gone for entire hospital stay at [facility]. Subjective/Events-last exam ESBL in the urine culture tolerating Meropenem and will complete tomorrow Overall doing well. Pain is well controlled. Rxes of all pain meds printed and prepared for DC tomorrow Uses oxygen at night and she has that at home DC planned for tomorrow Left lower ankle wound doing well just Silvadene with dressing changes every day and it appears without drainage or redness Has pain in her upper mid back so will initiate K pad heating pad and that is working well for the patient Review of Systems General: Fatigue Objective Exam Vital Signs Vital Signs Date Time Temp Pulse Resp B/P (MAP) Pulse Ox O2 Delivery O2 Flow Rate FiO2 04/23/18 08:00 Room Air 04/23/18 06:44 99.0 66 18 98/53 (68) 93 2.00 Capillary Refill : Less Than 3 Seconds General Appearance: No Apparent Distress, WD/WN, Chronically ill, Obese HEENT: PERRL/EOMI, Normal ENT Inspection, Pharynx Normal, Moist Mucous Membranes Neck: Full Range of Motion, Normal Inspection, Non Tender, Supple Respiratory: Chest Non Tender, No Accessory Muscle Use, No Respiratory Distress , Crackles (LLL) Cardiovascular: Regular Rate, Rhythm, No Edema, No Gallop, No JVD, No Murmur Gastrointestinal: Normal Bowel Sounds, No Organomegaly, No Pulsatile Mass, Non Tender, Soft Rectal: Normal Exam Back: Normal Inspection, No CVA Tenderness, No Vertebral Tenderness Extremity: Normal Capillary Refill, Normal Inspection, Normal Range of Motion, Non Tender, No Calf Tenderness, No Pedal Edema, Other (venous stais changes chronic and severe) Neurologic/Psychiatric: Alert, Oriented x3, No Motor/Sensory Deficits, Normal Mood/Affect, visual stylist II-XII Norm as Tested, Abnormal Gait, Motor Weakness ( generalized) Skin: Normal Color, Warm/Dry, Other (wound left lateral leg, severe varicosities with venous stasis dermatitis) Lymphatic: No Adenopathy Results/Procedures Lab Patient resulted labs reviewed. Assessment/Plan Assessment and Plan Assess & Plan/Chief Complaint Assessment: Debility Falls Left PTX Left rib fractures Left sided subcutaneous air Coumadin treatment DVT hx VINCE Night time hypoxia s/p constipation Severe venous stasis dermatitis lower legs Left lateral leg wound consulting wound care nearly resolved Iron deficiency s/p iron infusions 6 weeks ago and low again so will repeat the iron infusions again and will complete prior to DC late next week Recent sepsis episode managed at [facility] [place] [place] 2 weeks prior to fall UTI ESBL placed on Meropenem 04/20/18 janell complete tomorrow Plan: PT/OT Fall prevention Monitor INR prn Maintain the increased Fentanyl patch and Rx printed and signed Lortab Q4hrs scheduled Rxes printed and signed Venofer infusions to complete tomorrow Sudafed prn Pyridium prn Meropenem last dose tomorrow (1) Debility (2) Venous stasis dermatitis of both lower extremities (3) Nocturnal hypoxia (4) Anticoagulation goal of INR 2.5 to 3.5 (5) History of fracture of left hip (6) VINCE on CPAP (7) Pneumothorax on left (8) Ribs, multiple fractures (9) Subcutaneous air (10) Overactive bladder (11) Falls (12) DVT (deep venous thrombosis) (13) Osteoarthritis (14) Edema (15) Anemia (16) Constipation (17) Knee joint replacement status (18) Urinary tract infection due to ESBL Klebsiella Clinical Quality Measures DVT/VTE Risk/Contraindication: Risk Factor Score Per Nursin RFS Level Per Nursing on Admit: 4+=Very High DARON MARIN DO Apr 23, 2018 09:16
--- NOTE | 2018-04-23 10:04 | Physical Therapy Daily Note ---
PT Daily Note-Current Subjective Pt sitting in recliner with MHP on upon arrival. Pt agrees to PT for FIM scoring. Pain Numeric Pain Scale: 6 Location: Left Location Body Site: Side Pain Description: Dull, Pressure Comment: PT reports L ribs discomfort. Mental Status Patient Orientation: Person, Place, Time, Situation Transfers Therapy Code Descriptions/Definitions Functional [place] Measure: 0=Not Assessed/NA 4=Minimal Assistance 1=Total Assistance 5=Supervision or Setup 2=Maximal Assistance 6=Modified [place] 3=Moderate Assistance 7=Complete [place] Therapy Quality Codes: 6 Independent with activity with or without an assistive device 5 Patient requires set up or clean up by helper. Patient completes activity by themselves 4 Supervision or touching assist (CGA). [place] provide cues , steadying assist 3 The helper provides less than half the effort to complete the activity 2 The helper provides more than half the effort to complete the activity 1 Dependent. The helper does all the effort to complete an activity 7 Patient refused to complete or attempt activity 9 The patient did not perform the activity before the current illness or injury 88 Not attempted due to Medical conditions or safety concerns Transfers (B, C, W/C) (FIM): 4 Scootin Rollin Roll Left to Right (QC): 4 Supine to/from Sit: 5 Sit to/from Stand: 6 Sit to Lying (QC): 4 Sit to Stand (QC): 6 Chair/Rvp-ve-[place] Xfer(QC): 6 Bed to/from Chair: 6 Car Transfer (QC): 4 Pt needs assistance with lifting BLE into bed. Weight Bearing Right Lower Extremity: Right Weight Bearing/Tolerated Left Lower Extremity: Left Weight Bearing/Tolerated Gait Training Does the Patient Walk?: Yes Gait (FIM): 5 Distance (FIM): 3=150 ft Distance: 175' Walk 10 feet (QC): 6 Walk 50 ft with 2 Turns(QC): 6 Walk 150 ft (QC): 6 Walking 10ft/uneven surface-QC: 5 Gait Level of Assist: 5 Gait Persons Needed: 1 Gait Assistive Device: FWW Pt walks with slow margarita which is baseline. Pt is walking with increased normalizing gait. Wheelchair Training Does the Pt Use a Wheelchair?: No Stair Training Stair Training: Handrails/: uses walker Stairs (FIM): 5 #of Steps: 6 1 Step (curb) (QC): 5 4 Steps (QC): 5 Stairs: Pattern: Step to Level of Assist: 5 Pt is able to use single step for stairs but not staircase due to weakness of UE to pull up. Pt uses FWW and has slow margarita but is able to complete at SBA. Balance Picking up an Object (QC): 88 Special Test Comments Pt is not able to bend over to pick object from floor but this is baseline for pt. Exercises Seated Therapy Exercises: Ankle pumps, Long arc quads, Hip flexion, Kicking activity Seated Reps: 20 Treatments Pt completes bed mobility using bed rails, transfers including car transfer, ambulation including walking across varying surface, & single step multiple times instead of staircase. Pt returns to room to use restroom and rest in recliner at end of tx. Pt has all needs met including MHP as requested. Assessment Current Status: Good Progress Pt has improved with strength, safety and independence of tasks given. Pt & GUNSMITH APPRENTICE discuss safety items for both w/in hospital and at home. PT Short Term Goals Short Term Goals Time Frame: Apr 20, 2018 Transfers (B,C,W/C) (FIM): 4 Gait (FIM): 2 Distance (FIM): 8=447-95 ft Gait Assistive Device: FWW Wheelchair Distance: 100' PT Long-Term Goals Long-Term Goals PT Long-Term Goals Time Frame: May 04, 2018 Transfers (B,C,W/C) (FIM): 6 Sit to Lying (QC): 6 Lying-Sitting on Side/Bed(QC): 6 Sit to Stand (QC): 6 Rollin Roll Left to Right (QC): 6 Chair/Vlz-mw-Pqtaj Xfer(QC): 6 Car Transfer (QC): 5 Does the Patient Walk: Yes Gait (FIM): 5 (household) Gait distance (FIM): 1=762-93 ft Walk 10 feet (QC): 6 Walk 10ft-Uneven Surface(QC): 6 Walk 50ft with 2 Turns (QC): 6 Walk 150 ft (QC): 88 Gait Assistive Device: FWW Stairs (FIM): 5 (household) # of Steps: 4 1 Step (curb) (QC): 6 4 Steps (QC): 6 12 Steps (QC): 88 Picking up an Object (QC): 88 PT Plan Problem List Problem List: Activity Tolerance Treatment/Plan Treatment Plan: Continue Plan of Care Treatment Plan: Bed Mobility, Education, Functional Activity Ricardo, Functional Strength, Group Therapy, Gait, Safety, Therapeutic Exercise, Transfers Treatment Duration: May 04, 2018 Frequency: At least 5 of 7 days/Wk (IRF) Estimated Hrs Per Day: 1.5 hours per day Patient and/or Family Agrees t: Yes Safety Risks/Education Patient Education: Gait Training, Transfer Techniques, Correct Positioning, Safety Issues Teaching Recipient: Patient Teaching Methods: Discussion Response to Teaching: Verbalize Understanding Time/GCodes Time In: 830 Time Out: 1000 Total Billed Treatment Time: 90 Total Billed Treatment 1, FA x3 (45m), GT x2 (30m) & EX (15m) G Codes Necessary: LUIS Mckinney PTA Apr 23, 2018 10:04
--- NOTE | 2018-04-23 11:00 | NUR ---
Assumed care of patient. Addendum: 04/23/18 at 2335 by VIVIAN PRICE RN Wrong time. Actual time 2300.
--- NOTE | 2018-04-23 12:21 | D/C HH Face to Face Order ---
D/C Face to Face Orders Instructions for Patient [facility], Patient Instructions/FollowUp: Dr Vasquez in 1 week Physician to follow Patient: Dr Devi Vasquez Discharge Diet for Home: No Restrictions Patient Problems: Falls Rib fractures Coumadin maintainance Goals for Patient: Return to independent living and prevent falls Patient Data-Allergies,Ht & Wt Patient Allergies: Coded Allergies: baclofen (Verified Allergy, Severe, 12/16/17) vancomycin (Verified Allergy, Severe, 12/16/17) Penicillins (Verified Allergy, Unknown, 12/16/17) cefuroxime (Verified Allergy, Unknown, 12/16/17) cyclobenzaprine (Verified Allergy, Unknown, 12/16/17) levofloxacin (Verified Allergy, Unknown, 12/16/17) metronidazole (Verified Allergy, Unknown, 12/16/17) Height (Feet): 5 Height (Inches): 1.00 Weight (Pounds): 200 Weight (Ounces): 2.0 Home Health Need/Face to Face Date of Face to Face: Apr 23, 2018 Clinical Findings: Generalized weakness and fatigue, Instability, Muscle weakness, Pain with ambulation, Shortness of breath, Unsteady gait I have seen Pt [id number]: Yes Discharged To: Home Diagnosis/Conditions: Falls Rib fractures Coumadin maintainance Patient is Homebound due to: [place]ine fall risk due to instabilty, Muscle weakness , Pain w/ambulation, Shortness of breath/distress Homebound Status Due to the above stated illness, injury or surgical procedure (medical condition or diagnosis) and associated clinical findings, the patient is homebound because of his/her inability to leave home except with aid of a supportive device and/or person AND leaving the home requires a considerable and taxing effort or is medically contraindicated. Pt req the following assistanc: Aid of another person, Walker Home Health Nursing Orders Home Health Services Order: Nursing Services, Horticulture Superintendent-Evaluate & Treat, Physical Therapy-Evaluate & Treat, Other (bath aide) Home Health Infusion Therapy Line Start Date: Apr 17, 2018 Line Start Time: 1310 Line Type: Saline Lock Site Location: Arm-Upper Certify Stmt I certify that this patient is under my care and that I, a nurse practitioner or a physician; a service assistant working with me, had a face to face encounter that - meets the physician face to face encounter requirements with this patient as dated. DARON MARIN DO Apr 23, 2018 12:21
[2018-04-23] MEDS ORDERED: HYDR-3820 PO (12:25)
[2018-04-23] MEDS ORDERED: WARF5TAB PO (12:25)
[2018-04-23] MEDS ORDERED: WARF3TAB PO (12:25)
[2018-04-23] MEDS ORDERED: LORA10TA7 PO (12:25)
[2018-04-23] MEDS ORDERED: PSEU30TA35 PO (12:25)
[2018-04-23] MEDS ORDERED: PHEN-826 PO (12:25)
[2018-04-23] MEDS ORDERED: SILV20CR14 TOP (12:25)
[2018-04-23] MEDS ORDERED: FENT1PAT10 TD (12:25)
[2018-04-23] MEDS ORDERED: Lidocaine 4% Patch TOP (12:25)
[2018-04-23] MEDS: BUMETANIDE 1 MG (BUMEX) TAB PO SCH (13:05)
--- NOTE | 2018-04-23 13:10 | Occupational Ther Daily Note ---
OT Current Status-Daily Note Subjective Pt alert, sitting in recliner. Pt agrees to therapy. No c/o pain at this time. Mental Status/Objective Patient Orientation: Person, Place, Time, Situation Therapy Code Descriptions/Definitions Functional [place] Measure: 0=Not Assessed/NA 4=Minimal Assistance 1=Total Assistance 5=Supervision or Setup 2=Maximal Assistance 6=Modified [place] 3=Moderate Assistance 7=Complete [place] ADL-Treatment Therapy Code Descriptions/Definitions Functional [place] Measure: 0=Not Assessed/NA 4=Minimal Assistance 1=Total Assistance 5=Supervision or Setup 2=Maximal Assistance 6=Modified [place] 3=Moderate Assistance 7=Complete [place] Therapy Quality Codes: 6 Independent with activity with or without an assistive device 5 Patient requires set up or clean up by helper. Patient completes activity by themselves 4 Supervision or touching assist (CGA). Ruso provide cues , steadying assist 3 The helper provides less than half the effort to complete the activity 2 The helper provides more than half the effort to complete the activity 1 Dependent. The helper does all the effort to complete an activity 7 Patient refused to complete or attempt activity 9 The patient did not perform the activity before the current illness or injury 88 Not attempted due to Medical conditions or safety concerns Eating (FIM): 7 (Pt able to set own self up and use regular utensils.) Eating (QC): 6 Grooming (FIM): 6 (Sitting at sink, pt able to complete.) Oral Hygiene (QC): 6 Bathing (FIM): 4 (Using shower bench, grabbars, hand held shower and long handle sponge. Assist needed for cleansing buttocks.) Bathing Location: L Arm, R Arm, L Upper Leg, R Upper Leg, L Lower Leg ( including foot), R Lower Leg (including foot), Chest, Abdomen, Perineal Area Shower/Bathe Self (QC): 3 Upper Body (FIM): 5 (After set up, pt able to complete.) Upper Body Dressing (QC): 5 Lower Body Dressing (FIM): 4 (Uses AE to don/doff lower body clothing. Assist to hike over buttocks.) Lower Body Dressing (QC): 3 On/Off Footwear (QC): 5 (Set up and using AE.) Toileting (FIM): 4 (Pt able to cleanse self with AE. Assist to hike pants over buttocks.) Toileting Hygiene (QC): 3 Transfers (B, C, W/C) (FIM): 4 (Assist when going from sit to stand from low surface.) Toilet/Commode Transfer (FIM): 6 (Using higher surface, BSC, pt able to complete transfer using FWW.) Toilet Transfer (QC): 6 Shower Transfer(FIM): 4 (Assist to go from sit to supine due to low surface. Standing to sitting by self.) Pt takes increased time to complete ADLs. MHP placed on back due to increased pain while pt sitting in recliner. After therapy, pt sitting in recliner, PT took over care and monitor of MHP. All needs met in room. OT Short Term Goals Short Term Goals Time Frame: Apr 13, 2018 Eating(FIM): 5 Grooming(FIM): 5 Bathing(FIM): 4 Upper Body Dressing(FIM): 4 Lower Body Dressing(FIM): 3 Toileting(FIM): 4 Transfers (B,C,W/C) (FIM): 4 Toilet/Commode Transfer(FIM): 3 Shower Transfer(FIM): 3 Additional Short Term Goals: 1-Demonstrate ADL Tasks, 2-Verbalize Understanding , 3-ImproveStrength/Ricardo 1=Demonstrate adherence to instructed precautions during ADL tasks. 2=Patient will verbalize/demonstrate understanding of assistive devices/ modifications for ADL. 3=Patient will improve strength/tolerance for activity to enable patient to perform ADL's. OT Skilled Nursing Goals Skilled Nursing Goals Time Frame: Apr 20, 2018 Eating (FIM): 7 (met) Eating (QC): 6 (met) Groomin (met) Oral Hygiene (QC): 6 (met) Bathing(FIM): 5 (not met) Shower/Bathe Self (QC): 5 (not met) Upper Body Dressing(FIM): 5 (met) Upper Body Dressing (QC): 5 (met) Lower Body Dressing(FIM): 5 (not met) Lower Body Dressing (QC): 5 (not met) On/Off Footwear (QC): 5 (not met) Toileting(FIM): 6 (not met) Toileting Hygiene (QC): 6 (not met) Transfers (B,C,W/C) (FIM): 6 (not met) Toilet/Commode Transfer(FIM): 6 (met) Toilet/Commode Transfer (QC): 6 (met) Shower Transfer(FIM): 5 (not met) Additional Goals: 1-Demonstrate ADL Tasks, 2-Verbalize Understanding, 3- ImproveStrength/Ricardo 1=Demonstrate adherence to instructed precautions during ADL tasks. 2=Patient will verbalize/demonstrate understanding of assistive devices/ modifications for ADL. 3=Patient will improve strength/tolerance for activity to enable patient to perform ADL's. OT Education/Plan Discharge Recommendations Plan/Recommendations: Continue POC Treatment Plan/Plan of Care Patient would benefit from OT for education, treatment and training to promote independence in ADL's, mobility, safety and/or upper extremity function for ADL' s. Plan of Care: ADL Retraining, Functional Mobility, Group Exercise/Act as Ind, UE Funct Exercise/Act Treatment Duration: Apr 20, 2018 Frequency: At least 5 of 7 days/Wk (IRF) Estimated Hrs Per Day: 1.5 hours per day Agreement: Yes Rehab Potential: Good Time/GCodes Start Time: 07:00 Stop Time: 08:30 Total Time Billed (hr/min): 90 Billed Treatment Time 1 visit-ADL 6 (90 min) AMANUEL MATHEWS Apr 23, 2018 13:10
--- NOTE | 2018-04-23 14:14 | NUR ---
PT FAMILY BRINGING IN OUTSIDE FOOD. PT EATING WELL, 95% MEALS AND WEIGHT STABLE. INTAKE MEETING NEEDS AT THIS TIME. CONT SAME.
[2018-04-23] MEDS: warFARin 3 MG (COUMADIN) TAB PO SCH (18:15)
[2018-04-23] MEDS: warFARin 5 MG (COUMADIN) TAB PO SCH (18:15)
[2018-04-23 18:17] VITALS: BP 124/75
[2018-04-23] MEDS: LIDOCAINE PATCH REMOVAL TP SCH (20:49)
[2018-04-24] MEDS: MEROPENEM 500 MG in WATER (STERILE) FOR INJECTION 10 ML IV SCH ×2 (05:31→11:33)
[2018-04-24] MEDS: KCL 20 MEQ TAB (K-DUR) PO SCH (05:31)
[2018-04-24] MEDS: HYDROcodone/APAP 10 MG/325 MG (LORTAB) TAB PO SCH ×3 (05:31→12:41)
[2018-04-24 06:19] VITALS: BP 119/75
[2018-04-24] MEDS: PRAMIPEXOLE 0.125 MG (MIRAPEX) TABLET PO SCH (08:28)
[2018-04-24] MEDS: GABAPENTIN 300 MG (NEURONTIN) CAP PO SCH ×2 (08:29→12:41)
[2018-04-24] MEDS: LIDOCAINE 4% (SALONPAS) PATCH TOP SCH (08:29)
[2018-04-24] MEDS: LORATADINE (CLARITIN) 10 MG TAB PO SCH (08:29)
[2018-04-24] MEDS: PHENAZOPYRIDINE 100 MG (PYRIDIUM) TABLET PO SCH ×2 (08:29→12:42)
[2018-04-24] MEDS: predniSONE 5 MG TAB PO SCH (08:29)
[2018-04-24] MEDS: OXYBUTYNIN (DITROPAN) 5 MG TAB PO SCH ×2 (08:29→12:41)
--- NOTE | 2018-04-24 09:15 | Discharge Summary ---
Diagnosis/Chief Complaint Date of Admission Apr 06, 2018 at 11:56 Date of Discharge Discharge Date: Apr 24, 2018 Discharge Diagnosis Assessment: Debility Falls Left PTX Left rib fractures Left sided subcutaneous air Coumadin treatment DVT hx VINCE Night time hypoxia s/p constipation Severe venous stasis dermatitis lower legs Left lateral leg wound consulting wound care nearly resolved Iron deficiency s/p iron infusions 6 weeks ago and low again so will repeat the iron infusions again and will complete prior to DC late next week Recent sepsis episode managed [place] [facility] [place] prior to fall UTI ESBL placed on Meropenem 04/20/18 will complete today Plan: PT/OT Fall prevention Monitor INR prn Maintain the increased Fentanyl patch and Rx printed and signed Lortab Q4hrs scheduled Rxes printed and signed Venofer infusions to complete tomorrow Sudafed prn Pyridium prn Meropenem last dose tomday Discharge Summary Discharge Physical Examination Allergies: Coded Allergies: baclofen (Verified Allergy, Severe, 12/16/17) vancomycin (Verified Allergy, Severe, 12/16/17) Penicillins (Verified Allergy, Unknown, 12/16/17) cefuroxime (Verified Allergy, Unknown, 12/16/17) cyclobenzaprine (Verified Allergy, Unknown, 12/16/17) levofloxacin (Verified Allergy, Unknown, 12/16/17) metronidazole (Verified Allergy, Unknown, 12/16/17) Vitals & I&Os Vital Signs Date Time Temp Pulse Resp B/P (MAP) Pulse Ox O2 Delivery O2 Flow Rate FiO2 04/24/18 06:19 98.0 63 18 119/75 (90) 96 Room Air 04/23/18 06:44 2.00 Hospital Course Was the Problem List Reviewed?: Yes Hospital course: Patient had an uneventful hospital course during inpatient rehabilitation stay for 19 days total. She was transferred from [facility] after sustaining a fall with subsequent rib fractures and subcutaneous air and a small pneumothorax. Patient was managed with aggressive pain control and physical therapy that was in need of intensive inpatient rehabilitation therapy prior to going home so she was transferred via [facility] where she had been in inpatient rehabilitation 2 times prior. All home medications were continued along with increasing fentanyl patch to 75 g every 3 days along with hydrocodone every 4 hours scheduled. Narcotic bowel was resolved after aggressive bowel regimen and she continued on home dose of Coumadin which was adjusted to 8 mg with good therapeutic INR checks. Iron was found to be low again at 32 so she completed iron infusions while hospitalized after a midline placement. Urinary complaints are reported and urine culture showed ESBL so meropenem was completed for 5 days due to early UTI only with only 20 white blood cells in the urine. She participated in all therapies intensely and was able to ambulate with a walker but she does remain a fall risk and she will continue physical therapy at home with home care and a bath aide. All meds were reconciled and sent in to the pharmacy along with pain medication. Labs (last 24 hrs) Laboratory Tests 04/06/18 11:56: Lab Scanned Report Referred Lab Report 04/07/18 05:47: White Blood Count 5.7, Red Blood Count 3.63L, Hemoglobin 10.3L, Hematocrit 33L, Mean Corpuscular Volume 92, Mean Corpuscular Hemoglobin 28, Mean Corpuscular Hemoglobin Concent 31L, Red Cell Distribution Width 17.9H, Platelet Count 206, Mean Platelet Volume 9.6, Neutrophils (%) (Auto) 57, Lymphocytes (%) (Auto) 29, Monocytes (%) (Auto) 9, Eosinophils (%) (Auto) 6, Basophils (%) (Auto) 0, Neutrophils # (Auto) 3.3, Lymphocytes # (Auto) 1.6, Monocytes # (Auto) 0.5, Eosinophils # (Auto) 0.3, Basophils # (Auto) 0.0, Prothrombin Time 21.0H, INR Comment 1.8H, Sodium Level 142, Potassium Level 3.8, Chloride Level 105, Carbon Dioxide Level 28, Anion Gap 9, Blood Urea Nitrogen 13, Creatinine 0.59L, Estimat Glomerular Filtration Rate > 60, BUN/Creatinine Ratio 22, Glucose Level 87, Calcium Level 8.7, Corrected Calcium 9.7, Total Bilirubin 0.3, Aspartate Amino Transf (AST/SGOT) 13, Alanine Aminotransferase (ALT/SGPT) 10, Alkaline Phosphatase 120, Total Protein 5.1L, Albumin 2.8L 04/08/18 06:12: Prothrombin Time 22.5H, INR Comment 2.0H 04/11/18 05:00: Prothrombin Time 24.2H, INR Comment 2.2H 04/14/18 04:55: White Blood Count 6.2, Red Blood Count 3.48L, Hemoglobin 9.8L, Hematocrit 32L, Mean Corpuscular Volume 92, Mean Corpuscular Hemoglobin 28, Mean Corpuscular Hemoglobin Concent 31L, Red Cell Distribution Width 18.0H, Platelet Count 254, Mean Platelet Volume 10.1, Neutrophils (%) (Auto) 51, Lymphocytes (%) (Auto) 32 , Monocytes (%) (Auto) 9, Eosinophils (%) (Auto) 7, Basophils (%) (Auto) 1, Neutrophils # (Auto) 3.1, Lymphocytes # (Auto) 2.0, Monocytes # (Auto) 0.6, Eosinophils # (Auto) 0.4H, Basophils # (Auto) 0.1, Prothrombin Time 24.5H, INR Comment 2.2H, Sodium Level 142, Potassium Level 4.1, Chloride Level 107, Carbon Dioxide Level 26, Anion Gap 9, Blood Urea Nitrogen 18, Creatinine 0.62, Estimat Glomerular Filtration Rate > 60, BUN/Creatinine Ratio 29, Glucose Level 93, Calcium Level 8.4L, Corrected Calcium 9.4, Iron Level 32L, Total Bilirubin 0.1, Aspartate Amino Transf (AST/SGOT) 14, Alanine Aminotransferase (ALT/SGPT) 9, Alkaline Phosphatase 152H, Total Protein 5.2L, Albumin 2.8L 04/17/18 16:09: Urine Color YELLOW, Urine Clarity VERY CLOUDYH, Urine pH 7, Urine Specific [place] 1.010L, Urine Protein 1+H, Urine Glucose (UA) NEGATIVE, Urine Ketones NEGATIVE, Urine Nitrite POSITIVEH, Urine Bilirubin NEGATIVE, Urine Urobilinogen NORMAL, Urine Leukocyte Esterase 2+H, Urine RBC (Auto) 1+H, Urine RBC 2-5H, Urine WBC 10-25H, Urine Squamous Epithelial Cells NONE, Urine Crystals NONE, Urine Bacteria LARGEH, Urine Casts NONE, Urine Mucus NEGATIVE, Urine Culture Indicated YES 04/21/18 07:02: White Blood Count 6.1, Red Blood Count 3.94L, Hemoglobin 11.0L, Hematocrit 36, Mean Corpuscular Volume 92, Mean Corpuscular Hemoglobin 28, Mean Corpuscular Hemoglobin Concent 30L, Red Cell Distribution Width 18.2H, Platelet Count 210, Mean Platelet Volume 10.2, Neutrophils (%) (Auto) 49, Lymphocytes (%) (Auto) 35 , Monocytes (%) (Auto) 9, Eosinophils (%) (Auto) 7, Basophils (%) (Auto) 1, Neutrophils # (Auto) 3.0, Lymphocytes # (Auto) 2.1, Monocytes # (Auto) 0.5, Eosinophils # (Auto) 0.4H, Basophils # (Auto) 0.1, Prothrombin Time 26.8H, INR Comment 2.5H, Sodium Level 142, Potassium Level 4.2, Chloride Level 103, Carbon Dioxide Level 27, Anion Gap 12, Blood Urea Nitrogen 18, Creatinine 0.65, Estimat Glomerular Filtration Rate > 60, BUN/Creatinine Ratio 28, Glucose Level 98, Calcium Level 8.5, Corrected Calcium 9.1, Total Bilirubin 0.2, Aspartate Amino Transf (AST/SGOT) 17, Alanine Aminotransferase (ALT/SGPT) 9, Alkaline Phosphatase 165H, Total Protein 6.0L, Albumin 3.3 Microbiology 04/17/18 Urine Culture - Final, Complete Klebsiella pneumoniae Pending Labs Microbiology Date/Time Source Procedure Growth Status 04/17/18 16:09 Urine Straight Cath, In/Out Urine Culture - Final Klebsiella pneumoniae Complete Laboratory Tests 04/06/18 11:56: Lab Scanned Report Referred Lab Report 04/07/18 05:47: White Blood Count 5.7, Red Blood Count 3.63, Hemoglobin 10.3, Hematocrit 33, Mean Corpuscular Volume 92, Mean Corpuscular Hemoglobin 28, Mean Corpuscular Hemoglobin Concent 31, Red Cell Distribution Width 17.9, Platelet Count 206, Mean Platelet Volume 9.6, Neutrophils (%) (Auto) 57, Lymphocytes (%) (Auto) 29, Monocytes (%) (Auto) 9, Eosinophils (%) (Auto) 6, Basophils (%) (Auto) 0, Neutrophils # (Auto) 3.3, Lymphocytes # (Auto) 1.6, Monocytes # (Auto) 0.5, Eosinophils # (Auto) 0.3, Basophils # (Auto) 0.0, Prothrombin Time 21.0, INR Comment 1.8, Sodium Level 142, Potassium Level 3.8, Chloride Level 105, Carbon Dioxide Level 28, Anion Gap 9, Blood Urea Nitrogen 13, Creatinine 0.59, Estimat Glomerular Filtration Rate > 60, BUN/Creatinine Ratio 22, Glucose Level 87, Calcium Level 8.7, Corrected Calcium 9.7, Total Bilirubin 0.3, Aspartate Amino Transf (AST/SGOT) 13, Alanine Aminotransferase (ALT/SGPT) 10, Alkaline Phosphatase 120, Total Protein 5.1, Albumin 2.8 04/08/18 06:12: Prothrombin Time 22.5, INR Comment 2.0 04/11/18 05:00: Prothrombin Time 24.2, INR Comment 2.2 04/14/18 04:55: White Blood Count 6.2, Red Blood Count 3.48, Hemoglobin 9.8, Hematocrit 32, Mean Corpuscular Volume 92, Mean Corpuscular Hemoglobin 28, Mean Corpuscular Hemoglobin Concent 31, Red Cell Distribution Width 18.0, Platelet Count 254, Mean Platelet Volume 10.1, Neutrophils (%) (Auto) 51, Lymphocytes (%) (Auto) 32 , Monocytes (%) (Auto) 9, Eosinophils (%) (Auto) 7, Basophils (%) (Auto) 1, Neutrophils # (Auto) 3.1, Lymphocytes # (Auto) 2.0, Monocytes # (Auto) 0.6, Eosinophils # (Auto) 0.4, Basophils # (Auto) 0.1, Prothrombin Time 24.5, INR Comment 2.2, Sodium Level 142, Potassium Level 4.1, Chloride Level 107, Carbon Dioxide Level 26, Anion Gap 9, Blood Urea Nitrogen 18, Creatinine 0.62, Estimat Glomerular Filtration Rate > 60, BUN/Creatinine Ratio 29, Glucose Level 93, Calcium Level 8.4, Corrected Calcium 9.4, Iron Level 32, Total Bilirubin 0.1, Aspartate Amino Transf (AST/SGOT) 14, Alanine Aminotransferase (ALT/SGPT) 9, Alkaline Phosphatase 152, Total Protein 5.2, Albumin 2.8 04/17/18 16:09: Urine Color YELLOW, Urine Clarity VERY CLOUDY, Urine pH 7, Urine Specific [place] 1.010, Urine Protein 1+, Urine Glucose (UA) NEGATIVE, Urine Ketones NEGATIVE, Urine Nitrite POSITIVE, Urine Bilirubin NEGATIVE, Urine Urobilinogen NORMAL, Urine Leukocyte Esterase 2+, Urine RBC (Auto) 1+, Urine RBC 2-5, Urine WBC 10-25, Urine Squamous Epithelial Cells NONE, Urine Crystals NONE, Urine Bacteria LARGE, Urine Casts NONE, Urine Mucus NEGATIVE, Urine Culture Indicated YES 04/21/18 07:02: White Blood Count 6.1, Red Blood Count 3.94, Hemoglobin 11.0, Hematocrit 36, Mean Corpuscular Volume 92, Mean Corpuscular Hemoglobin 28, Mean Corpuscular Hemoglobin Concent 30, Red Cell Distribution Width 18.2, Platelet Count 210, Mean Platelet Volume 10.2, Neutrophils (%) (Auto) 49, Lymphocytes (%) (Auto) 35 , Monocytes (%) (Auto) 9, Eosinophils (%) (Auto) 7, Basophils (%) (Auto) 1, Neutrophils # (Auto) 3.0, Lymphocytes # (Auto) 2.1, Monocytes # (Auto) 0.5, Eosinophils # (Auto) 0.4, Basophils # (Auto) 0.1, Prothrombin Time 26.8, INR Comment 2.5, Sodium Level 142, Potassium Level 4.2, Chloride Level 103, Carbon Dioxide Level 27, Anion Gap 12, Blood Urea Nitrogen 18, Creatinine 0.65, Estimat Glomerular Filtration Rate > 60, BUN/Creatinine Ratio 28, Glucose Level 98, Calcium Level 8.5, Corrected Calcium 9.1, Total Bilirubin 0.2, Aspartate Amino Transf (AST/SGOT) 17, Alanine Aminotransferase (ALT/SGPT) 9, Alkaline Phosphatase 165, Total Protein 6.0, Albumin 3.3 Discharge Home Medications: Active Scripts Active Phenazopyridine HCl 100 Mg Tablet 100 Mg PO TIDPC [Lidocaine 4% Patch] 1 EA Patch 1 Ea TOP DAILY Silvadene (Silver Sulfadiazine) 20 Gm Cream..g. 0 Gm TOP DAILY Hydrocodon-Acetaminophn 10-325 (Hydrocodone/Acetaminophen) 1 Each Tablet 1 Ea PO Q4H Fentanyl Patch 75MCG (Fentanyl) 1 Each Patch.td72 75 Mcg TD Q72H Coumadin (Warfarin Sodium) 5 Mg Tablet 5 Mg PO DAILY@1800 Coumadin (Warfarin Sodium) 3 Mg Tablet 3 Mg PO DAILY@1800 Loratadine 10 Mg Tablet 10 Mg PO DAILY Sudogest (Pseudoephedrine HCl) 30 Mg Tablet 30 Mg PO Q6H PRN Reported Clotrimazole 10 Mg Gail 10 Mg PO QID 7 Days Hydrocodon-Acetaminophn 10-325 (Hydrocodone/Acetaminophen) 1 Each Tablet 1 Tab PO QID PRN Potassium Chloride 20 Meq Tablet.er 20 Meq PO DAILY Bumetanide 0.5 Mg Tablet 0.5 Mg PO 0700 Warfarin Sodium 7.5 Mg Tablet 7.5 Mg PO 1800 Pramipexole Dihydrochloride (Pramipexole Di-HCl) 0.25 Mg Tablet 0.25 Mg PO BID Minocycline HCl 100 Mg Capsule 100 Mg PO BID Gabapentin 300 Mg Capsule 300 Mg PO QID Oxybutynin Chloride 5 Mg Tablet 5 Mg PO TID Prednisone 5 Mg Tablet 5 Mg PO DAILY Instructions to patient/family Please see electronic discharge instructions given to patient. Diagnosis/Problems Diagnosis/Problems (1) Debility Status: Acute (2) Venous stasis dermatitis of both lower extremities Status: Chronic (3) Nocturnal hypoxia Status: Chronic (4) Anticoagulation goal of INR 2.5 to 3.5 Status: Acute (5) History of fracture of left hip (6) VINCE on CPAP Status: Chronic (7) Pneumothorax on left (8) Ribs, multiple fractures (9) Subcutaneous air (10) Overactive bladder Status: Chronic (11) Falls (12) DVT (deep venous thrombosis) Status: Chronic (13) Osteoarthritis Status: Chronic (14) Edema Status: Chronic (15) Anemia Status: Acute (16) Constipation (17) Knee joint replacement status Status: Chronic (18) Urinary tract infection due to ESBL Klebsiella Clinical Quality Measures DVT/VTE Risk/Contraindication: Risk Factor Score Per Nursin RFS Level Per Nursing on Admit: 4+=Very High DARON MARIN DO Apr 24, 2018 09:15
[2018-04-24] MEDS: PSEUDOEPHEDRINE HCL 30 MG (SUDAFED) TAB PO PRN (09:53)
[2018-04-24] MEDS: MINOCYCLINE 100 MG TABLET (NON-FORMULARY) PO SCH (09:55)
[2018-04-24] MEDS: SILVER SULFADIAZINE 50 GM CREAM TOP SCH (09:56)
[2018-04-24] MEDS: SENNA W/DOCUSATE (SENOKOT S) TABLET PO SCH (10:11)
--- NOTE | 2018-04-24 11:09 | Therapy Team Discharge Summary ---
Therapy Discharge Summary Discharge Recommendations Date of Discharge Therapy D/C Recommendations: Physical Therapy Home Care Physical Therapy Patient came to rehab with Fall, Fracture, Pulmonary Embolism. Upon evaluation patient performed bed mobility and transfers with max assist, could not perform a car transfer, and ambulated 50' with a rolling walker with min assist. Patient has been performing bed mobility and transfer training, balance and endurance training, functional strengthening, stair training, gait training, and education. Patient has made fair progress but has not met her snf goals for bed mobility. Now, patient performs bed mobility with min/mod assist , transfers with mod I, car transfers min/CGA, ambulates 175' with a rolling walker with mod I (including 50' with at least 2 turns of 90 degrees and 10' over an uneven surface), and can go up and down 6 steps using a rolling walker with mod I. Patient is discharging from this facility today and will be discharged from PT at this time. Occupational Therapy Decreased UE Strength, Impaired Coordination, Impaired Self-Care Skills, Restricted Funct UE ROM PT Mcfp Goals Orthopedics Pediatric Physician Goals PT Orthopedics Pediatric Physician Goals Time Frame: May 04, 2018 Transfers (B,C,W/C) (FIM): 6 Roll Left to Right (QC): 6 Sit to Lying (QC): 6 Lying-Sitting on Side/Bed(QC): 6 Sit to Stand (QC): 6 Chair/Kqq-pg-Jojhl Xfer(QC): 6 Car Transfer (QC): 5 Does the Patient Walk: Yes Gait (FIM): 5 (household) Gait distance (FIM): 5=570-27 ft Walk 10 feet (QC): 6 Walk 10ft-Uneven Surface(QC): 6 Walk 50ft with 2 Turns (QC): 6 Walk 150 ft (QC): 88 Gait Assistive Device: FWW Stairs (FIM): 5 (household) # of Steps: 4 1 Step (curb) (QC): 6 4 Steps (QC): 6 12 Steps (QC): 88 Picking up an Object (QC): 88 OT Mcfp Goals Orthopedics Pediatric Physician Goals Time Frame: Apr 20, 2018 Eating (FIM): 7 (met) Eating (QC): 6 (met) Oral Hygiene (QC): 6 (met) Grooming(FIM): 6 (met) Bathing(FIM): 5 (not met) Shower/Bathe Self (QC): 5 (not met) Upper Body Dressing(FIM): 5 (met) Upper Body Dressing (QC): 5 (met) Lower Body Dressing(FIM): 5 (not met) Lower Body Dressing (QC): 5 (not met) On/Off Footwear (QC): 5 (not met) Toileting(FIM): 6 (not met) Toileting Hygiene (QC): 6 (not met) Transfers (B,C,W/C) (FIM): 6 (not met) Toilet/Commode Transfer(FIM): 6 (met) Toilet/Commode Transfer (QC): 6 (met) Shower Transfer(FIM): 5 (not met) Additional Goals: 1-Demonstrate ADL Tasks, 2-Verbalize Understanding, 3- ImproveStrength/Ricardo 1=Demonstrate adherence to instructed precautions during ADL tasks. 2=Patient will verbalize/demonstrate understanding of assistive devices/ modifications for ADL. 3=Patient will improve strength/tolerance for activity to enable patient to perform ADL's. YOBANY HU PT Apr 24, 2018 11:09
[2018-04-24 14:00] VITALS: BP 119/75
--- NOTE | 2018-04-27 12:47 | Therapy Team Discharge Summary ---
Therapy Discharge Summary Discharge Recommendations Date of Discharge Apr 24, 2018 at 14:00 Therapy D/C Recommendations: Physical Therapy Home Care Occupational Therapy Pt admitted to ARU following hospitalization for pneumothorax and rib fractures. On admission pt required SBA for eating and grooming and max assist for other ADLs and transfers. Skilled OT intervention focused on ADL training, transfers, and safety education. Pt progressed with therapy and by discharge is completing eating independently; grooming and toilet transfers with modified independence; UE dressing with SBA; and bathing, LE dressing, toileting and shower transfer with minimal assistance. Pt met goals for eating, grooming, UE dressing, and toilet transfer, but did not meet other LTG. Pt discharge home with spouse. D/c ARU OT. Decreased UE Strength, Impaired Coordination, Impaired Self-Care Skills, Restricted Funct UE ROM PT Plate Drying Machine Tender Goals [facility] Goals PT [facility]itentiary Goals Time Frame: May 04, 2018 Transfers (B,C,W/C) (FIM): 6 Roll Left to Right (QC): 6 Sit to Lying (QC): 6 Lying-Sitting on Side/Bed(QC): 6 Sit to Stand (QC): 6 Chair/Qwa-fq-Sgasd Xfer(QC): 6 Car Transfer (QC): 5 Does the Patient Walk: Yes Gait (FIM): 5 (household) Gait distance (FIM): 4=060-25 ft Walk 10 feet (QC): 6 Walk 10ft-Uneven Surface(QC): 6 Walk 50ft with 2 Turns (QC): 6 Walk 150 ft (QC): 88 Gait Assistive Device: FWW Stairs (FIM): 5 (household) # of Steps: 4 1 Step (curb) (QC): 6 4 Steps (QC): 6 12 Steps (QC): 88 Picking up an Object (QC): 88 OT Penitentiary Goals Penitentiary Goals Time Frame: Apr 20, 2018 Eating (FIM): 7 (met) Eating (QC): 6 (met) Oral Hygiene (QC): 6 (met) Grooming(FIM): 6 (met) Bathing(FIM): 5 (not met) Shower/Bathe Self (QC): 5 (not met) Upper Body Dressing(FIM): 5 (met) Upper Body Dressing (QC): 5 (met) Lower Body Dressing(FIM): 5 (not met) Lower Body Dressing (QC): 5 (not met) On/Off Footwear (QC): 5 (not met) Toileting(FIM): 6 (not met) Toileting Hygiene (QC): 6 (not met) Transfers (B,C,W/C) (FIM): 6 (not met) Toilet/Commode Transfer(FIM): 6 (met) Toilet/Commode Transfer (QC): 6 (met) Shower Transfer(FIM): 5 (not met) Additional Goals: 1-Demonstrate ADL Tasks, 2-Verbalize Understanding, 3- ImproveStrength/Ricardo 1=Demonstrate adherence to instructed precautions during ADL tasks. 2=Patient will verbalize/demonstrate understanding of assistive devices/ modifications for ADL. 3=Patient will improve strength/tolerance for activity to enable patient to perform ADL's. TEGAN HOOD OT Apr 27, 2018 12:47
== END 2018-04-24 14:00 | disposition home health service (06) | DRG 560 ==
PROVIDERS: ADMIT Internal Medicine; ATTEND Internal Medicine
DX: S22.42XD Multiple fractures of ribs, left side, subsequent encounter for fracture with routine healing (principal); S27.0XXD Traumatic pneumothorax, subsequent encounter; S22.20XD Unspecified fracture of sternum, subsequent encounter for fracture with routine healing; J98.11 Atelectasis; R53.1 Weakness; R53.81 Other malaise; I83.11 Varicose veins of right lower extremity with inflammation; I83.12 Varicose veins of left lower extremity with inflammation; N39.0 Urinary tract infection, site not specified; M06.9 Rheumatoid arthritis, unspecified; I10 Essential (primary) hypertension; E78.00 Pure hypercholesterolemia, unspecified; G47.33 Obstructive sleep apnea (adult) (pediatric); N32.81 Overactive bladder; K59.00 Constipation, unspecified; E66.9 Obesity, unspecified; M54.9 Dorsalgia, unspecified; M19.90 Unspecified osteoarthritis, unspecified site; F32.9 Major depressive disorder, single episode, unspecified; Z91.81 History of falling; Z79.01 Long term (current) use of anticoagulants; B96.1 Klebsiella pneumoniae [K. pneumoniae] as the cause of diseases classified elsewhere; Z16.12 Extended spectrum beta lactamase (ESBL) resistance; Z86.718 Personal history of other venous thrombosis and embolism; Z96.652 Presence of left artificial knee joint; Z68.37 Body mass index [BMI] 37.0-37.9, adult
CPT/HCPCS: 36415; 71046; 80053; 81000; 83540; 85025; 85610; 87077; 87088; 87186; 94640; 94664; 94760

== ENCOUNTER → 2019-12-12 | Outpatient (CLI) | payer OTHER, MEDICARE ==
[~2019-12-12] MED LIST changes: +ACHD5005 PO; +ACHYD1T PO; -ALPRAZolam 0.25 MG (XANAX) TAB PO PRN; -BUME0.5T3 PO; +BUME0.5T5 PO; -CALCIUM CARBONATE 500 MG (TUMS) TAB.CHEW PO PRN; +CLOT10TR PO; -DOCUSATE SODIUM 100 MG (COLACE) CAP PO PRN; +FENT1PAT10 TD; -HYDR-3812 PO; -HYDR-3820 PO; -HYDROcodone/APAP 5 MG/325 MG (LORTAB) TAB PO PRN; -LOPERAMIDE 2 MG (IMODIUM) CAP PO PRN; +LORA10TA7 PO; +Lidocaine 4% Patch TOP; -MINO100C2 PO; +MINO100C5 PO; -ONDANSETRON 4 MG (ZOFRAN) ORAL DISSOLVE TAB PO PRN; -ONDANSETRON 4 MG/2 ML (SDV) Z0FRAN IVP PRN; +OXYB5TAB13 PO; -OXYB5TAB9 PO; +PHEN-826 PO; +PS30T PO; +SILV20CR14 TOP; -TIZA2TAB3 PO; +TIZA2TAB7 PO; +WARF3TAB PO; -WARF5TAB PO; +WARF5TAB2 PO; +WARF7.5T3 PO; -WARF7.5T49 PO; -diphenhydrAMINE 25 MG TAB (BENADRYL) PO PRN
== END ==
LOC: LABNPT 16:11
PROVIDERS: ATTEND Nurse Practitioner Family
DX: R50.9 Fever, unspecified (principal); Z20.828 Contact with and (suspected) exposure to other viral communicable diseases
CPT/HCPCS: 87635